=== PATIENT | female | born 1950 | race Caucasian/White ===

== ENCOUNTER 2020-11-16 15:59 | Outpatient (CLI) | payer MEDICARE, SELFPAY ==
--- NOTE | ~2020-11-16 | CT_ITS ---
EXAMINATION: CT abdomen pelvis wo con DATE: 11/16/2020 16:37 INDICATION: Localized adiposity TECHNIQUE: Computed tomography (CT) of the abdomen and pelvis was performed without intravenous contr ast. The dose-length product (DLP) was 818.17 mGy-cm. Automated exposure control and iterative recons truction technique were employed. COMPARISON: None FINDINGS: Calcified nodules of the visualized lung bases are consistent with old granulomatous diseas e. The heart size is normal. There is a small pericardial effusion. There are partially imaged pacema ker leads in the heart. Changes of gastric lap band surgery are noted. The liver, spleen, pancreas, g allbladder, and adrenal glands are normal. The kidneys are unremarkable. There is calcified atheroscl erosis of the aorta and many of the other arteries. Surgical changes are noted in the rectum. No path ologically enlarged abdominal or pelvic lymph nodes are identified. There is no free intraperitoneal gas or evidence of bowel obstruction. There is severe lumbar spondylosis. There is mild diastases of the rectus abdominis muscles near the umbilicus without evidence of ventral hernia. IMPRESSION: 1. Mild diastases of the rectus abdominis muscles near the umbilicus without ventral hernia. Reviewed, dictated and finalized at location A. [facility] IMPRESSION: 1. Mild diastases of the rectus abdominis muscles near the umbilicus without ve ntral hernia.
== END 2020-11-16 16:00 | disposition home or self-care (01) ==
PROVIDERS: PCP Internal Medicine; Visit Provider Surgery Plastic and Reconstructive Surgery
DX: E65 Localized adiposity (principal); K46.9 Unspecified abdominal hernia without obstruction or gangrene; M62.08 Separation of muscle (nontraumatic), other site; M47.816 Spondylosis without myelopathy or radiculopathy, lumbar region
CPT/HCPCS: 74176

== ENCOUNTER 2021-01-18 13:10 | Outpatient (CLI) | payer MEDICARE, SELFPAY ==
[2021-01-18 14:10] LABS: Prealbumin 18.9 mg/dL (17.6-36.0)
[2021-01-18 14:41] LABS: Iron 91 ug/dL (37-170)
[2021-01-22 10:53] LABS: Vitamin B1 9 nmol/L (8-30)
== END 2021-01-18 13:11 | disposition home or self-care (01) ==
LOC: ANHSURGERY 13:13
PROVIDERS: PCP Internal Medicine; Visit Provider Surgery Plastic and Reconstructive Surgery
DX: Z01.818 Encounter for other preprocedural examination (principal); E65 Localized adiposity
CPT/HCPCS: 36415; 83540; 84134; 84425

== ENCOUNTER → 2021-01-20 00:31 | Outpatient (CLI) | payer OTHER, SELFPAY ==
[2021-01-20 20:23] LABS: SARS-CoV-2 RNA PCR Negative
== END ==
PROVIDERS: PCP Internal Medicine; Visit Provider Surgery Plastic and Reconstructive Surgery
DX: Z01.812 Encounter for preprocedural laboratory examination (principal); Z20.822 Contact with and (suspected) exposure to COVID-19
CPT/HCPCS: C9803; U0003; U0005

== ENCOUNTER 2021-01-23 01:31 | Day surgery (SDC) | payer OTHER, SELFPAY ==
[2021-01-17 15:01] VITALS: BMI 31.8
[2021-01-23] VITALS (11 sets, daily range): BP systolic 120–147; BP diastolic 66–80; PULSE 70–80; RESP 16–22; TEMP 36.1–36.6; O2SAT 93–100
--- NOTE | 2021-01-23 11:23 | WPDHPUPDATE1 ---
History and Physical Update Update Date/Time: 01/23/21 11:23 History and Physical has been reviewed, including an updated exam of the patient. There are NO changes in the patient's condition. Risks, benefits, and alternatives have been discussed and questions answered. Patient agrees to proceed with procedure.
[2021-01-23 11:33] LABS: Urine Cotinine NEGATIVE
--- NOTE | 2021-01-23 11:39 | WPDANESEPPF ---
Anes - Initial Pre Proc Eval Procedure: Operation Date: 01/23/21 13:00 Proposed Procedures p Panniculectomy - Joshua Pereira MD Date/Time: 01/23/21 11:39 Surgeon: Joshua Pereira MD Pre Op Diagnosis: panniculitis Patient Data Age: 70 Gender: F Height: 5 ft Weight: 74 kg Allergies Allergy/AdvReac Type Severity Reaction Status Date / Time codeine AdvReac Severe Nausea and Verified 01/23/21 11:03 Vomiting meperidine [From Demerol] AdvReac Severe Nausea and Verified 01/23/21 11:03 Vomiting Home Medications Medication Instructions Recorded Confirmed Type ergocalciferol (vitamin D2) 1 cap PO WEEKLY 11/08/20 01/23/21 History glipizide 5 mg tablet 5 mg PO DAILY 11/08/20 01/23/21 History loratadine 10 mg capsule 10 mg PO DAILY 11/08/20 01/23/21 History venlafaxine 75 mg tablet 75 mg PO DAILY 11/08/20 01/23/21 History docusate sodium 100 mg capsule 100 mg PO DAILY #14 cap 01/04/21 Rx hydrocodone 5 mg-acetaminophen 325 1 tablet PO Q6H PRN #15 tablet 01/08/21 01/08/21 Rx mg tablet calcitriol 0.25 mcg PO DAILY 01/17/21 01/23/21 History levothyroxine 50 mcg PO DAILY 01/17/21 01/17/21 History magnesium oxide 400 mg PO BID 01/17/21 01/23/21 History montelukast 10 mg PO DAILY 01/17/21 01/23/21 History rosuvastatin 40 mg PO DAILY 01/17/21 01/23/21 History sacubitril-valsartan [Entresto] 1 tablet PO BID 01/17/21 01/23/21 History semaglutide [Ozempic] 0.5 mg SUBCUT WEEKLY 01/17/21 01/23/21 History sodium zirconium cyclosilicate 5 g PO DAILY 01/17/21 01/23/21 History [Lokelma] sotalol 80 mg PO BID 01/17/21 01/23/21 History Laboratory Tests 01/23/21 11:15 Cotinine Negative Patient hx anesthesia problems: none Family hx anesthesia problems: none PMFSH Past Medical History Medical History (Updated 01/23/21 @ 11:39 by Darien Grimm MD) Diabetes Hyperlipidemia Hypertension Pacemaker & defibrillator Surgical History Surgical History History of breast surgery right breast tumor History of foot surgery History of knee surgery left knee tumor History of thumb surgery Social History Social History Smoking status: Never smoker Alcohol intake: former Substance use: never Substance use type: does not use Living arrangements: with family Spiritual care concerns: No Anes - Eval Final PreProcedure Day of Procedure 01/23/21 11:39 Patient weight: overweight Heart: regular rate and rhythm Lungs: clear to auscultation Airway: Mallampati scale class II Neurological: alert and oriented Last oral intake: >/= 8 hours ASA classification: III Emergent: no Anesthetic plan: proceed Anesthesia type and monitoring: general ETT and standard monitoring Informed Consent: The patient's anesthetic plan and its attendant risks and benefits were discussed with the patient/family/POA. Questions were solicited and answers provided to the satisfaction of the patient/family/POA.
--- NOTE | 2021-01-23 11:41 | PM.PROC ---
Procedure Note - Detailed Date of procedure: 01/23/21 Pre-op diagnosis: panniculitis Post-op diagnosis: same Procedure performed: Panniculectomy Description of procedure: Patient was marked in the preoperative holding area with her verification. She stated she did not mind losing the umbilicus. She is fine if we save it or remove it, either way. Risks, benefits, alternatives were discussed in extensive detail. I want her to be very realistic about the risks involved as well as expectations. Discussed the aftercare. What to expect. Explained this is functional not cosmetic. All questions answered and consent obtained. She was taken to the operating room placed supine on the operating room table. Anesthesia provided by anesthesiology and prepped and draped in a standard sterile fashion. Surgical time-out was taken. Thorough abdominal examination completed. Infiltrated with tumescent solution. A 10 blade used to make the lower incision which was continued down to the fascia. I then estimated tissue to be removed and made the upper incision doing a wedge resection with no undermining. I closed over bilateral 15 Deo drains which were sutured to the end with 3-0 nylon. Closure was 2-0 Vicryl followed by 3-0 strata fix followed by running subcuticular 4-0 monocryl. Dressings were placed. She was awoke and taken to the PACU without difficulty. All instrument sponge counts were correct at the end of the case. Anesthesia: GETA Surgeon: Joshua Pereira MD Estimated blood loss (mL): 50 Drains: Yes (Bilateral 15 Deo) Packing: No Pathology: none sent Complications: No immediate complications Condition: stable Disposition: PACU
[2021-01-23] MEDS: LACTATED RINGERS 1,000 ML 30 ML IV CONT ×2 (12:02→13:50)
[2021-01-23 12:11] LABS: Glucose Point of Care 111 (65-105)
[2021-01-23] MEDS: ceFAZolin 2 GM/D5W 50 ML 2 GM/50 ML BAG IVPB (12:21)
[2021-01-23 14:00] LABS: Glucose Point of Care 75 (65-105)
[2021-01-23] MEDS: fentaNYL CITRATE INJ (*CRX) 100 MCG/2 ML VIAL 25 MCG IV PUSH ×4 (14:17→14:38)
--- NOTE | 2021-01-23 15:10 | PC.NURSE ---
This patient, Katheryn Pantoja, was received from PACU on 01/23/21 at 1510. Patient/family oriented to unit policies and routines
[2021-01-23] MEDS: LACTATED RINGERS 1,000 ML 125 ML IV CONT (15:24)
[2021-01-23] MEDS: MORPHINE SULFATE (*CRX) 2 MG/ML INJ IV PUSH ×2 (15:26→17:32)
[2021-01-23] MEDS: traMADol HCL (*CRX) 50 MG TABLET PO (16:36)
[2021-01-23] MEDS: ONDANSETRON INJ 4 MG/2 ML VIAL IV PUSH ×2 (17:35→22:18)
[2021-01-23] MEDS: SACUBITRIL/VALSARTAN 49-51 MG TABLET 1 TABLET PO (20:29)
[2021-01-23] MEDS: DOCUSATE SODIUM 100 MG CAPSULE PO (20:29)
[2021-01-23] MEDS: SOTALOL HCL 80 MG TABLET PO (20:29)
[2021-01-23] MEDS: ENOXAPARIN 40 MG/0.4 ML SYRINGE SUB-Q (20:30)
[2021-01-24 04:00] VITALS: BP 106/67; PULSE 84; RESP 16; TEMP 36.5; O2SAT 94
[2021-01-24] MEDS: ONDANSETRON INJ 4 MG/2 ML VIAL IV PUSH (04:15)
[2021-01-24] MEDS: ACETAMINOPHEN 325 MG TABLET 650 MG PO (04:30)
--- NOTE | 2021-01-24 07:06 | WPDPN ---
Progress Note: A&P Assessment and Plan (1) Panniculus: Code(s): E65 - Localized adiposity Status: Acute Assessment and Plan: She is doing very well after panniculectomy. Will discharge home. I will see her back and check her progress. Today we had over 20 minutes conversation discussing the care. What monitor for. We discussed DVT prophylaxis. Made sure she knew her options. She will ambulate regularly. I will see her back. Call with any questions or concerns in the meantime. Time Spent With Patient Time with patient: 15 - 25 minutes Review of Systems Review of Systems: All systems reviewed & are unremarkable except as noted in HPI and below Exam Narrative: Exam Narrative: Abdomen is healing well. No signs of infection. No hematoma. No seroma. Good color and capillary refill. Drains are in place. Lightening in color. No calf tenderness. Negative Homans. Const: General: comfortable, no acute distress, alert and awake; No acute distress Orientation/consciousness: oriented to person HENMT: Head: normal to inspection Ears: external ears normal General nose exam: Normal external nose present Face and sinus: normal facial exam Eyes: General: appearance normal, both eyes and all related structures Periorbital: periorbital findings normal Eyelids: eyelids normal Conjunctivae: conjunctivae normal Neck: Neck: normal visual inspection Chest: Chest palpation & inspection: normal inspection of the chest Resp: Effort & Inspection: normal respiratory effort and able to speak in complete sentences GI: Inspection: normal to inspection Neuro: General: oriented to person Psych: Appearance: grossly normal Mental Status: mental status grossly normal Objective Data Vital Signs Vital Signs: Vital Signs - 24 hr 01/23/21 12:05 01/23/21 13:50 01/23/21 14:05 Temperature 36.6 C 36.4 C Pulse Rate 70 74 76 Respiratory Rate 22 H 20 Blood Pressure 134/79 147/73 H 137/75 Pulse Oximetry 98 100 100 01/23/21 14:20 01/23/21 14:35 01/23/21 14:50 Temperature Pulse Rate 74 75 74 Respiratory Rate 20 20 20 Blood Pressure 130/78 124/66 120/74 Pulse Oximetry 100 94 93 01/23/21 15:04 01/23/21 15:15 01/23/21 20:00 Temperature 36.6 C 36.1 C L Pulse Rate 72 70 80 Respiratory Rate 18 16 18 Blood Pressure 137/80 142/77 H 125/73 Pulse Oximetry 94 96 93 01/23/21 20:29 01/23/21 22:35 01/24/21 04:00 Temperature 36.1 C L 36.5 C Pulse Rate 80 71 84 Respiratory Rate 18 16 Blood Pressure 123/72 106/67 Pulse Oximetry 95 94 Intake/Output Intake/Output: Intake & Output 01/21/21 01/22/21 01/23/21 01/24/21 23:59 23:59 23:59 23:59 Intake Total 100 Output Total 215 600 Balance -115 -600 Meds/Results Medications: Active Medications Generic Name Dose Route Start Last Admin Trade Name Freq PRN Reason Stop Dose Admin Acetaminophen 650 mg 01/23/21 23:08 01/24/21 04:30 Acetaminophen 325 Mg Tablet PO 650 mg Q4H PRN Administration Headache Calcitriol 0.25 mcg 01/24/21 09:00 Calcitriol 0.25 Mcg Capsule PO DAILY JEANNE Docusate Sodium 100 mg 01/23/21 21:00 01/23/21 20:29 Docusate Sodium 100 Mg Capsule PO 100 mg Q12HR JEANNE Administration Enoxaparin Sodium 40 mg 01/23/21 20:00 01/23/21 20:30 Enoxaparin 40 Mg/0.4 Ml Syringe SUB-Q 40 mg Q24H JEANNE Administration Glipizide 5 mg 01/24/21 06:30 Glipizide 5 Mg Tablet PO DAILY@0630 [facility] Lactated Ringer's 1,000 mls @ 125 mls/hr 01/23/21 13:35 01/24/21 05:50 Lr - Lactated Ringers Iv IV CONT Not Given .Q8H JEANNE Levothyroxine Sodium 50 mcg 01/24/21 06:30 Levothyroxine Sodium 50 Mcg Tablet PO DAILY@0630 [facility] Loratadine 10 mg 01/24/21 09:00 Loratadine 10 Mg Tablet PO DAILY [facility] Montelukast Sodium 10 mg 01/24/21 09:00 Montelukast Sodium 10 Mg Tablet PO DAILY [facility] Morphine Sulfate 2 mg 01/23/21 13:33 01/23/21 17:32 Morphine Sulfate (*C
--- NOTE | 2021-01-24 07:11 | PM.DS ---
DS: Admitting Diagnosis Admitting Diagnosis Admitting Diagnosis: Panniculitis DS: Discharge Diagnosis Discharge Diagnosis (1) Panniculus: Code(s): E65 - Localized adiposity Status: Acute DS: Summary Hospital Course Hospital Course: Patient underwent panniculectomy uneventfully. Postoperatively she has done very well. Ambulating. Pain controlled. Feeling well. Will discharge home. Time Spent with Patient Time attestation: Total time spent providing and/or coordinating discharge services: 20 minutes Exam Narrative: Exam Narrative: Abdomen is healing well. No signs of infection. No hematoma. No seroma. Good color and capillary refill. Drains are in place. Lightening in color. No calf tenderness. Negative Homans. Const: General: comfortable, no acute distress, alert and awake; No acute distress Orientation/consciousness: oriented to person HENMT: Head: normal to inspection Ears: external ears normal General nose exam: Normal external nose present Face and sinus: normal facial exam Eyes: General: appearance normal, both eyes and all related structures Periorbital: periorbital findings normal Eyelids: eyelids normal Conjunctivae: conjunctivae normal Neck: Neck: normal visual inspection Chest: Chest palpation & inspection: normal inspection of the chest Resp: Effort & Inspection: normal respiratory effort and able to speak in complete sentences GI: Inspection: normal to inspection Neuro: General: oriented to person Psych: Appearance: grossly normal Mental Status: mental status grossly normal DS: Data Data Completed and Pending Labs on day of discharge: Labs from last 24 hours 01/23/21 01/23/21 01/23/21 13:58 12:09 11:15 POC Capillary Glucose 75 111 H Cotinine Negative Discharge Plan Discharge Patient Disposition: Home, Self-Care Discharge Instructions: POST OPERATIVE DISCHARGE INSTRUCTIONS FOR JOSHUA PEREIRA [facility] [address] [place] [address] [address] for 24 hours after anesthesia and while you are taking pain medication. Take all prescribed medication as directed Diet as tolerated. No lifting or activity that raises blood pressure for 48 hours. Regular walking / ambulation. No showering until directed to. Once you shower do not take pain medication before showering as the combination of medication and heat may cause you to feel dizzy or pass out. No pools or tubs for 2 weeks. Call with any questions or concerns. Dressing Care: May wash. Dry dressing daily. Drain care. Keep us updated with drain outputs. If you have any questions or concerns, please call the office . If it is after hours you will be directed to the commissions analyst exchange. Shortness of breath, chest pain, or other medical emergency dial 911 / proceed to the Emergency Room. Patient Instructions: [facility] Drain Care (GEN) Stand Alone Forms: General Discharge Instructions Follow-up/Referrals: Joshua Pereira MD [Physician] - 2 Weeks Discharge Medications: New tramadol 50 mg Tablet 50 mg PO Q6H PRN (Reason: Pain Rated 4-6) Qty: 15 RF: 0 Continued loratadine 10 mg capsule 10 mg PO DAILY RF: 0 ergocalciferol (vitamin D2) 1 cap PO WEEKLY RF: 0 venlafaxine 75 mg tablet 75 mg PO DAILY RF: 0 glipizide 5 mg tablet 5 mg PO DAILY RF: 0 docusate sodium [Colace] 100 mg capsule 100 mg PO DAILY Qty: 14 RF: 0 sotalol 80 mg tablet 80 mg PO BID RF: 0 magnesium oxide 400 mg (241.3 mg magnesium) tablet 400 mg PO BID RF: 0 levothyroxine 50 mcg tablet 50 mcg PO DAILY RF: 0 montelukast 10 mg tablet 10 mg PO DAILY RF: 0 calcitriol 0.25 mcg capsule 0.25 mcg PO DAILY RF: 0 rosuvastatin 40 mg tablet 40 mg PO DAILY RF: 0 Entresto 49-51 mg tablet 1 tablet PO BID RF: 0 Ozempic 0.25 mg or 0.5 mg(2 mg/1.5 mL) pen injecto
[2021-01-24 07:30] VITALS: BP 89/54; PULSE 70; RESP 18; TEMP 37
[2021-01-24] MEDS: LEVOTHYROXINE SODIUM 50 MCG TABLET PO (07:58)
[2021-01-24] MEDS: glipiZIDE 5 MG TABLET PO (07:59)
--- NOTE | 2021-01-24 08:14 | WPDANESPN ---
Anes - Prog Note Post-Op Date/Time: 01/24/21 08:14 Cardiovascular status: normal Respiratory status: normal Airway patency: baseline Mental status: baseline Post-Op hydration status: normal Vital Signs: Last Vital Signs Temp 37.0 C 01/24/21 07:30 Pulse 70 01/24/21 07:30 Resp 18 01/24/21 07:30 BP 89/54 L 01/24/21 07:30 Pulse Ox 94 01/24/21 04:00 Pain Score (VAS): 0/10. Patient resting in bed at time of assessment, appears comfortable. Patient described mild nausea with relief with PRN meds. I/O: Intake & Output 01/23/21 01/24/21 01/24/21 23:59 07:59 15:59 Output Total 145 600 Balance -145 -600 01/23/21 01/23/21 01/23/21 11:15 12:09 13:58 POC Capillary Glucose 111 H 75 Cotinine Negative Post-procedural complaints: nausea (relief with prn meds) Patient Feedback: Patient satisfied with anesthetic care.
[2021-01-24] MEDS: ROSUVASTATIN 10 MG TABLET 40 MG PO (09:40)
[2021-01-24 09:41] VITALS: PULSE 70
[2021-01-24] MEDS: SOTALOL HCL 80 MG TABLET PO (09:41)
[2021-01-24] MEDS: MONTELUKAST SODIUM 10 MG TABLET PO (09:41)
[2021-01-24] MEDS: LORATADINE 10 MG TABLET PO (09:41)
[2021-01-24] MEDS: DOCUSATE SODIUM 100 MG CAPSULE PO (09:41)
[2021-01-24] MEDS: SACUBITRIL/VALSARTAN 49-51 MG TABLET 1 TABLET PO (09:42)
[2021-01-24] MEDS: calcitrioL 0.25 MCG CAPSULE PO (09:43)
[2021-01-24] MEDS: VENLAFAXINE HCL 75 MG TABLET PO (09:44)
== END 2021-01-24 11:00 | disposition home or self-care (01) ==
LOC: ANHSURGERY 11:45 → ANHOB2 14:53
PROVIDERS: PCP Internal Medicine; Visit Provider Surgery Plastic and Reconstructive Surgery
PROC: 0JB80ZZ Excision of Abdomen Subcutaneous Tissue and Fascia, Open Approach (ICD-10-PCS; CPT 15830; principal; 2021-01-23 13:00)
DX: M79.3 Panniculitis, unspecified (principal); E65 Localized adiposity; I10 Essential (primary) hypertension; E78.5 Hyperlipidemia, unspecified; E11.9 Type 2 diabetes mellitus without complications; Z95.810 Presence of automatic (implantable) cardiac defibrillator; Z79.84 Long term (current) use of oral hypoglycemic drugs; Z79.899 Other long term (current) drug therapy
CPT/HCPCS: 15830; 80307; 82948; 99199; A9270; J0171; J0690; J1650; J2250; J2270; J2405; J2704; J3010; J7120

== ENCOUNTER 2021-02-24 09:37 | Inpatient (IN) | payer MEDICARE, SELFPAY ==
[2021-02-24] VITALS (20 sets, daily range): BP systolic 79–145; BP diastolic 38–86; PULSE 68–93; RESP 16–26; TEMP 36.1–36.8; O2SAT 93–100; BMI 28.2
--- NOTE | ~2021-02-24 | CT_ITS ---
EXAMINATION: CT brain wo con DATE: 02/24/2021 11:11 INDICATION: Postoperative syncope, weakness TECHNIQUE: Computed tomography (CT) of the head was performed without intravenous contrast. The mA wa s adjusted according to patient size. Iterative reconstruction technique was employed. Exam dose: 60 5.33 mGy-cm total exam DLP. COMPARISON: None FINDINGS: Prominent cisterna magna, anatomic variant. Vertebral and bilateral carotid siphon internal carotid artery calcifications. There is nonspecific d iminished attenuation of the cerebral white matter, likely due to chronic small vessel ischemic es. There is chronic lacunar infarct in the region of the anterior limb of the right internal capsule. No intracranial mass lesion or hemorrhage or recent cerebrovascular accident is evident. CT is not se nsitive for detection of hyperacute ischemic CVA. No midline shift or mass effect effect. No subdural or epidural hematoma. No fracture or bone destruction of the cranial vault. Included paranasal sinuses and mastoid air cell s are unremarkable. IMPRESSION: Cerebral atherosclerosis and chronic small vessel ischemic changes of cerebral white mat ter Chronic lacunar infarct near anterior limb of right internal capsule Reviewed, dictated and finalized at [facility]. Reviewed, dictated and finalized at [facility]. IMPRESSION: Cerebral atherosclerosis and chronic small vessel ischemic changes of cerebral white matter Chronic lacunar infarct near anterior limb of right internal capsule
--- NOTE | ~2021-02-24 | XR_ITS ---
XR chest 2V DATE: 02/24/2021 11:00 INDICATION: Postoperative syncope, weakness TECHNIQUE: AP and lateral views COMPARISON: None FINDINGS: Left-sided pacemaker device with leads overlying right atrium, right ventricle and coronary sinus. Normal heart size. Aortic arch calcification. No hilar or mediastinal enlargement. No pulmonary infiltrate or consolidation, pleural effusion or pulmonary vascular congestion or pneumo thorax. Lap band apparatus. IMPRESSION: No active cardiopulmonary disease Reviewed, dictated and finalized at [facility].
--- NOTE | ~2021-02-24 | CT_ITS ---
EXAMINATION: CTA chest PE abdomen pel DATE: 02/24/2021 11:12 INDICATION: Postoperative syncope, weakness TECHNIQUE: Computed tomography angiography (CTA) of the chest and abdomen was performed with 100 mL O mnipaque-350 intravenous contrast timed to evaluate the pulmonary arteries. Coronal maximum intensity projection 3D-reconstructions were created by the technologist. Automated exposure control and itera tive reconstruction technique were employed. Exam dose: 1184.79 mGy-cm total exam DLP. COMPARISON: 11/16/2020 CT abdomen pelvis noncontrast examination FINDINGS: Bilateral upper upper, middle and bilateral lower lobe calcified pulmonary granulomas consistent with old pulmonary granulomatous disease. No pulmonary infiltrate or consolidation or pulmonary mass lesi on. No thoracic aortic aneurysm or dissection. No CT evidence of pulmonary embolism. Mild to moderate pericardial effusion. No cardiomegaly. Left-sided pacemaker device with leads in right atrium, right ventricle and coronary sinus. Small sliding hiatal hernia. Lap band device. The liver, gallbladder, bile ducts, spleen, pancreas, pancreatic duct, and adrenal glands and kidneys are unremarkable. No urinary tract calculus or hydroureteronephrosis. The urinary bladder is unremar kable. Status post hysterectomy. There is a suture line in the distal sigmoid colon. Diverticulosis of the left colon; no CT evidence of diverticulitis. No bowel obstruction is evident. No intraperitoneal free air. There is extensive fluid accumulation along the lower anterior abdominal wall, measuring up to 19 cm transverse dimension, to 4.5 cm anteroposterior dimension, up to 12 cm vertical extent. Findings may be consistent with hematoma or abscess. Transverse with surrounding soft tissue infiltration of the s ubcutaneous anterior abdominal wall adipose tissue. Prominent degenerative disease at L4-5 and L5-S1. Degenerative changes apophyseal joints of the lumbar and lumbosacral area, with associated grade 1 an terolisthesis at L5-S1. No suspicious osteolytic or osteoblastic lesions are noted. IMPRESSION: Pericardial effusion Extensive abnormal fluid collection within the subcutaneous tissues of the lower anterior abdominal w all which may be secondary to hematoma or abscess Lap band apparatus Small sliding hiatal hernia Diverticulosis of the colon; no CT evidence of diverticulitis Status post left colon resection Status post hysterectomy Reviewed, dictated and finalized at [facility]. Reviewed, dictated and finalized at [facility]. IMPRESSION: Pericardial effusion Extensive abnormal fluid collection within the subcutaneous tissues of the lowe r anterior abdominal wall which may be secondary to hematoma or abscess Lap band apparatus Small sliding hiatal hernia Diverticulosis of the colon; no CT evidence of diverticulitis Status post left colon resection Status post hysterectomy
--- NOTE | ~2021-02-24 | US_ITS ---
US abdomen limited DATE: 02/25/2021 08:21 INDICATION: Abnormal liver function tests TECHNIQUE: Examination was performed by portable means in the intensive care unit. Real-time imaging of liver, pancreas, gallbladder areas COMPARISON: 02/24/2021 CT chest and abdomen FINDINGS: No gallstones or gallbladder wall thickening is evident. Negative sonographic James's sign . No hepatic space-occupying mass lesion. The pancreas is obscured by bowel gas. The pancreas appears unremarkable on 02/24/2021 CT abdomen pelvis examination. No bile duct dilatation. The common bile duct measures 4 mm. IMPRESSION: No significant abnormality Reviewed, dictated and finalized at [facility]. Reviewed, dictated and finalized at [facility]. IMPRESSION: No significant abnormality
[2021-02-24 10:08] LABS: Basophils Absolute Auto 0.1 K/mm3 (0.0-0.1); Basophils Percent Auto 0.4 % (0.2-1.2); Eosinophils Absolute Auto 0.2 K/mm3 (0-0.3); Eosinophils Percent Auto 0.9 % (0-4.4); Hematocrit 38.7 % (37.0-47.0); Hemoglobin 13.3 g/dL (12.0-15.0); Immature Granulocyte Absolute 0.54 K/mm3 (0.00-0.031); Immature Granulocyte Percent A 1.9 % (0-0.5); Lymphocytes Absolute Auto 1.06 K/mm3 (0.9-3.2); Lymphocytes Percent Auto 3.8 % (18.3-44.2); Mean Corpuscular HGB Conc 34.4 g/dl (32-36); Mean Corpuscular Hemoglobin 30.2 pg (26-34); Mean Platelet Volume 11.4 fl (7.4-10.4); Monocytes Absolute Auto 3.8 K/mm3 (0.1-0.6); Monocytes Percent Auto 13.4 % (2.6-8.5); Neutrophils Absolute Auto 22.3 K/mm3 (1.3-6.7); Neutrophils Percent Auto 79.6 % (45.5-73.1); Platelet Count Result 274 k/mm3 (150-375); Red Cell Distribution Width 12.6 % (11.5-14.5); White Blood Count 28.1 K/mm3 (4.5-10.0)
[2021-02-24 10:14] LABS: Alanine Aminotransferase 56 U/L (4-35); Albumin Level 3.5 g/dL (3.5-5.1); Alkaline Phosphatase 242 U/L (38-126); Anion Gap 5 mmol/L (8-16); Aspartate Amino Transferase 275 U/L (14-36); Bilirubin,Total 0.7 mg/dL (0.2-1.3); Blood Urea Nitrogen 14 mg/dL (7-17); Calcium 10.1 mg/dL (8.4-10.2); Carbon Dioxide 31 mmol/L (22-30); Chloride 93 mmol/L (98-107); Estimated CRCL calculation 46 ml/min; Estimated Glomerular Filt Rate > 60; Glucose 96 mg/dL (65-105); Lipase 127 U/L (23-300); Potassium 4.3 mmol/L (3.4-5.0); Sodium 129 mmol/L (137-145)
--- NOTE | 2021-02-24 10:17 | ECG_ITS ---
Measurements Intervals [place] Rate: 102 P: 41 AK: 195 QRS: 124 QRSD: 101 T: 10 QT: 386 QTc: 505 Interpretive Statements SINUS TACHYCARDIA VENTRICULAR PREMATURE COMPLEXES INCOMPLETE RIGHT BUNDLE BRANCH BLOCK HIGH LATERAL INFARCT, AGE INDETERMINATE BORDERLINE ST-T WAVE ABNORMALITY- INFERIOR LEADS BASELINE ARTIFACT- I, III, AVR, AVL, V4-V6 ABNORMAL ECG Electronically Signed On 02-24-2021 17:05:51 CDT by Tma Willard D.O.
[2021-02-24 10:24] LABS: Ovalocytes 1+ (NORMAL); Platelet Estimate Adequate (Adequate)
[2021-02-24] MEDS: ONDANSETRON INJ 4 MG/2 ML VIAL IV PUSH (10:32)
[2021-02-24] MEDS: LACTATED RINGERS 1,000 ML 999 ML IV CONT (10:32)
--- NOTE | 2021-02-24 10:39 | ECG_ITS ---
Measurements Intervals [place] Rate: 82 P: 52 GA: 207 QRS: 141 QRSD: 86 T: -12 QT: 394 QTc: 461 Interpretive Statements SINUS RHYTHM INCOMPLETE RIGHT BUNDLE BRANCH BLOCK LOW QRS VOLTAGE IN PRECORDIAL LEADS HIGH LATERAL INFARCT, AGE INDETERMINATE BORDERLINE ST-T WAVE ABNORMALITY- INFERIOR LEADS BASELINE ARTIFACT- I, III, AVR, AVL, AVF ABNORMAL ECG Electronically Signed On 02-27-2021 15:57:26 CDT by Tam Willard D.O.
--- NOTE | 2021-02-24 10:48 | ED.GENADULT ---
HPI - General Adult General Chief complaint: Nausea/Vomiting/Diarrhea Stated complaint: decreased appetite/constipation? Time Seen by Provider: 02/24/21 09:47 Source: patient Mode of arrival: ambulatory Limitations: no limitations History of Present Illness HPI narrative: This is 70 year old female who presents for evaluation of nausea and lower abdominal pain s/p panniculectomy 5 weeks ago. She reports she has been nauseated for 5 weeks, but it got worse today. She states she normally does not have emesis but she does not want to eat or drink. She was able to drink milk and water this morning without vomiting. She is concerned because she has kidney disease and her urine has been more yellow over the past couple of days. She states her last BM was 2 days ago and it was diarrhea. She states she passed out 2 days and she had diarrhea at that time. She denies chest pain or sob. She does report severe lower abdominal pain along her incision, and her pain is worse when she tries to sit up. She also notes a firmness to her incision. She was seen by her plastic surgeon approximately 6 days ago. She admits she has not talked to her surgeon about not feeling well for several weeks. Related Data Home Medications Medication Instructions Recorded Confirmed ergocalciferol (vitamin D2) 1 cap PO WEEKLY 11/08/20 01/23/21 glipizide 5 mg tablet 5 mg PO DAILY 11/08/20 01/23/21 venlafaxine 75 mg tablet 75 mg PO DAILY 11/08/20 01/23/21 Entresto 1 tablet PO BID 01/17/21 01/23/21 Lokelma 5 g PO DAILY 01/17/21 01/23/21 Ozempic 0.5 mg SUBCUT WEEKLY 01/17/21 01/23/21 calcitriol 0.25 mcg PO DAILY 01/17/21 01/23/21 levothyroxine 50 mcg PO DAILY 01/17/21 01/17/21 magnesium oxide 400 mg PO BID 01/17/21 01/23/21 montelukast 10 mg PO DAILY 01/17/21 01/23/21 rosuvastatin 40 mg PO DAILY 01/17/21 01/23/21 sotalol 80 mg PO BID 01/17/21 01/23/21 Allergies Allergy/AdvReac Type Severity Reaction Status Date / Time codeine AdvReac Severe Nausea and Verified 02/24/21 09:46 Vomiting meperidine [From Demerol] AdvReac Severe Nausea and Verified 02/24/21 09:46 Vomiting Review of Systems Review of Systems: All systems reviewed & are unremarkable except as noted in HPI and below Constitutional: Constitutional: Reports chills, Reports fatigue and Denies fever(s) Cardiovascular: Cardiovascular: Denies chest pain Respiratory: Respiratory: Denies cough and Denies dyspnea Gastrointestinal: Gastrointestinal: Reports abdominal pain, Denies diarrhea, Reports nausea and Denies vomiting Genitourinary: Genitourinary: Denies hematuria and Denies dysuria Neurologic: Reports syncope Endocrine: Endocrine: Reports fatigue PMFSH Past Medical History Medical History Cardiac dysrhythmia Patient on sotalol. Unsure if atrial or ventricular dysrhythmia. Cardiomyopathy Status post PM/ICD insertion. Previous EF of 35% (per patient report). Patient of Dr. Boggs. Cerebrovascular accident Chronic lacunar infarct near anterior limb of right internal capsule noted on brain CT dated 02/24/2021. This was unknown to the patient. Depression Diverticulitis Hyperlipidemia Hypertension Hypothyroidism Type 2 diabetes mellitus Hemoglobin A1c was 5.4% on 02/24/2021. Surgical History Surgical History Cardiac defibrillator in place History of foot surgery History of hysterectomy History of laparoscopic adjustable gastric banding History of left knee surgery History of partial colectomy Partial left colectomy secondary to diverticulitis. History of right breast biopsy Benign pathology. History of thumb surgery Status post panniculectomy Family History Family History Other Diabetes mellitus Heart disease Hypertension Venous thromboembolism Social History Social History (Upd
[2021-02-24 11:02] LABS: Add Urine Microscopic? YES; Appearance Urine Cloudy (Clear); Bacteria Urine Trace /hpf; Bilirubin Urine Negative (Negative); Blood Urine Negative (Negative); Color Urine Yellow (Yellow); Glucose Urine UA Negative (Negative); Ketones Urine Negative (Negative); Leukocyte Esterase Ur Negative LEU/UL (Negative); Mucus Urine Rare /lpf; Nitrate Urine Negative (Negative); Protein Urine 2+ mg/dL (Negative); RBC Urine 0-2 /hpf (0-2); Specific Grav Ur 1.015 (1.001-1.035); Squamous Epithelial Cell Urine Few /hpf (Few); Urobilinogen Urine Negative mg/dL (<2.0)
[2021-02-24 11:04] LABS: Lactic Acid Reflex 1.5 mmol/L (0.7-2.1)
[2021-02-24 11:16] LABS: Hepatitis B Surface Antigen Negative (Negative)
[2021-02-24 11:21] LABS: HAV RESULT Negative (Negative); Hepatitis B Core IgM Result Negative (Negative)
[2021-02-24 11:36] LABS: Hepatitis C Virus Antibody Reactive (Negative)
--- NOTE | 2021-02-24 13:50 | ADMGEN ---
This patient, Katheryn Pantoja, was admitted to -. Patient/family oriented to hospital policies and general routines including ID bracelet, bed and alarms, visiting hours, pain management, procedures, bathroom and other care routines, personal items, smoking policy, room service/diet, and visiting hours. Information on how to activate the Rapid Response Team has been discussed. Patient/Family are encouraged to report perceived risks to care and to ask questions if they do not understand what they are told or what they should do.
[2021-02-24] MEDS: SODIUM CHLORIDE 0.9% IV 1,000 ML 125 ML IV CONT (14:05)
--- NOTE | 2021-02-24 14:15 | PM.IMHP ---
H&P: HPI History of Present Illness Date/Time: 02/24/21 14:15 Chief Complaint: Post-op abominal pain. Narrative: This is a pleasant 70-year-old female with history of cardiomyopathy on Entresto status post pacemaker/ICD insertion, cardiac dysrhythmia on sotalol (patient is unsure if atrial or ventricular), type 2 diabetes, dyslipidemia, and hypothyroidism who presented to the emergency department earlier today via private vehicle from home for evaluation of post-op abdominal pain. She is status post panniculectomy on 01/23/[address] Joshua Pereira and initially she had what she assumed to be typical postoperative pain. She took 1 hydrocodone on 3 consecutive nights after the surgery and has been managing her pain on [id number] analgesics since that time. On review of follow-up notes it looks like she was progressing as expected, with drains being removed on 01/31 and 02/08. She last saw Dr. Pereira in the office just 5 days ago and there was no mention of any issue. Unfortunately she began feeling worse later that evening and reports increasing pain, nausea, decreased appetite, and poor oral intake since that time. In fact she tells me that she had a syncopal episode last night while in the kitchen, with antecedent symptoms to include a warm feeling, lightheadedness, dizziness, and weakness. She did not injure herself in the fall and she denies head trauma. CT of the abdomen and pelvis demonstrated an extensive fluid accumulation along the lower anterior abdominal wall which measures up to 19 x 4.5 x 12 cm and she is being admitted in this setting. Dr. Pereira is out of town this weekend and Dr. Lazo has graciously agreed to see her in consultation. In fact he is taking her to the OR today for washout of the wound. Review of Systems Review of Systems: Narrative: 12 systems were reviewed with pertinent positives and negatives as per HPI. She has not had a fever to her knowledge. Perhaps some mild chills. No sweats. She denies vomiting. Has had some mild loose stools. No chest pain, pleuritic pain, palpitations, or shortness of breath. Her defibrillator has discharged 2 times since it was inserted but not recently. No change in urine output but her urine has appeared darker. Denies dysuria. No history of multidrug resistant organisms. Does not check her glucose at home as her glucometer is broken apparently. She does not recall her last hemoglobin A1c. No blurry vision, polydipsia, or polyuria. No history of venous thromboembolism. No history of hepatitis or concerns for exposure to the same. No history of blood transfusion. Except as documented, all other systems were reviewed and are negative. [facility] Past Medical History Medical History (Updated 02/24/21 @ 15:49 by Leanne Ureña PA-C) Cardiac dysrhythmia Patient on sotalol. Unsure if atrial or ventricular dysrhythmia. Cardiomyopathy Status post PM/ICD insertion. Previous EF of 35% (per patient report). Patient of Dr. Boggs. Cerebrovascular accident Chronic lacunar infarct near anterior limb of right internal capsule noted on brain CT dated 02/24/2021. This was unknown to the patient. Depression Diverticulitis Hyperlipidemia Hypertension Hypothyroidism Type 2 diabetes mellitus Hemoglobin A1c was 5.4% on 02/24/2021. Surgical History Surgical History Cardiac defibrillator in place History of foot surgery History of hysterectomy History of laparoscopic adjustable gastric banding History of left knee surgery History of partial colectomy Partial left colectomy secondary to diverticulitis. History of right breast biopsy Benign pathology. History of thumb surgery Status post panniculectomy Family History Family History Other Diabetes mellitus Heart disease Hypertension Venous thromboembolism Social History Social History (Updated
--- NOTE | 2021-02-24 15:01 | WPDANESEPP ---
Anes - Eval Pre Procedure Date/Time: 02/24/21 15:01 Pre Op Diagnosis: postoperative wound abscess Patient Data Age: 70 Gender: F Height: 1.55 m Weight: 70.3 kg Last Vital Signs Temp 36.8 C 02/24/21 09:41 Pulse 88 02/24/21 13:53 Resp 16 02/24/21 13:53 BP 128/60 02/24/21 13:53 Pulse Ox 97 02/24/21 13:53 Allergies Allergy/AdvReac Type Severity Reaction Status Date / Time codeine AdvReac Severe Nausea and Verified 02/24/21 09:46 Vomiting meperidine [From Demerol] AdvReac Severe Nausea and Verified 02/24/21 09:46 Vomiting Home Medications Medication Instructions Recorded Confirmed Type ergocalciferol (vitamin D2) 1 cap PO WEEKLY 11/08/20 01/23/21 History glipizide 5 mg tablet 5 mg PO DAILY 11/08/20 01/23/21 History venlafaxine 75 mg tablet 75 mg PO DAILY 11/08/20 01/23/21 History Entresto 1 tablet PO BID 01/17/21 01/23/21 History Lokelma 5 g PO DAILY 01/17/21 01/23/21 History Ozempic 0.5 mg SUBCUT WEEKLY 01/17/21 01/23/21 History calcitriol 0.25 mcg PO DAILY 01/17/21 01/23/21 History levothyroxine 50 mcg PO DAILY 01/17/21 01/17/21 History magnesium oxide 400 mg PO BID 01/17/21 01/23/21 History montelukast 10 mg PO DAILY 01/17/21 01/23/21 History rosuvastatin 40 mg PO DAILY 01/17/21 01/23/21 History sotalol 80 mg PO BID 01/17/21 01/23/21 History Laboratory Tests 02/24/21 02/24/21 02/24/21 09:52 09:52 09:52 WBC 28.1 K/mm3 H K/mm3 (4.5-10.0) RBC 4.40 M/mm3 M/mm3 (4.2-5.4) Hgb 13.3 g/dL g/dL (12.0-15.0) Hct 38.7 % % (37.0-47.0) MCV 88.0 fl fl (80-100) MCH 30.2 pg pg (26-34) MCHC 34.4 g/dl g/dl (32-36) RDW 12.6 % % (11.5-14.5) Plt Count 274 k/mm3 k/mm3 (150-375) MPV 11.4 fl H fl (7.4-10.4) Immature Gran % (Auto) 1.9 % H % (0-0.5) Neut % (Auto) 79.6 % H % (45.5-73.1) Lymph % (Auto) 3.8 % L % (18.3-44.2) Levy % (Auto) 13.4 % H % (2.6-8.5) Eos % (Auto) 0.9 % % (0-4.4) Baso % (Auto) 0.4 % % (0.2-1.2) Lymph # (Auto) 1.06 K/mm3 K/mm3 (0.9-3.2) Levy # (Auto) 3.8 K/mm3 H K/mm3 (0.1-0.6) Eos # (Auto) 0.2 K/mm3 K/mm3 (0-0.3) Baso # (Auto) 0.1 K/mm3 K/mm3 (0.0-0.1) Abs Immat Gran (auto) 0.54 K/mm3 H K/mm3 (0.00-0.031) Absolute Neuts (auto) 22.3 K/mm3 H K/mm3 (1.3-6.7) Absolute Nucleated RBC 0.0 K/mm3 K/mm3 (0.0-0.012) Nucleated RBC % 0.0 % % (0.0-0.2) Platelet Estimate Adequate (Adequate) Ovalocytes 1+ (NORMAL) PT INR APTT Sodium 129 mmol/L L mmol/L (137-145) Potassium 4.3 mmol/L mmol/L (3.4-5.0) Chloride 93 mmol/L L mmol/L (98-107) Carbon Dioxide 31 mmol/L H mmol/L (22-30) Anion Gap 5 mmol/L L mmol/L (8-16) BUN 14 mg/dL mg/dL (7-17) Creatinine 0.90 mg/dL mg/dL (0.7-1.0) Estim Creat Clear Calc 46 ml/min ml/min Estimated GFR > 60 (59 - ) Glucose 96 mg/dL mg/dL (65-105) Hemoglobin A1c Lactic Acid Calcium 10.1 mg/dL mg/dL (8.4-10.2) Magnesium Total Bilirubin 0.7 mg/dL mg/dL (0.2-1.3) AST 275 U/L H U/L (14-36) ALT 56 U/L H U/L (4-35) Alkaline Phosphatase 242 U/L H U/L (38-126) Total Creatine Kinase Total Protein 7.0 g/dL g/dL (6.3-8.2) Albumin 3.5 g/dL g/dL (3.5-5.1) Lipase 127 U/L U/L (23-300) TSH (Reflex) Urine Color Urine Appearance Urine pH Ur Specific Bath Urine Protein Urine Glucose (UA) Urine Ketones Ur Blood (Man) Urine Nitrate Urine Bilirubin Urine Urobi
[2021-02-24 15:07] LABS: Hemoglobin A1C 5.4 % (<5.7)
[2021-02-24 15:09] LABS: Alanine Aminotransferase 48 U/L (4-35); Albumin Level 2.7 g/dL (3.5-5.1); Alkaline Phosphatase 198 U/L (38-126); Anion Gap 4 mmol/L (8-16); Aspartate Amino Transferase 195 U/L (14-36); Bilirubin,Total 0.4 mg/dL (0.2-1.3); Blood Urea Nitrogen 13 mg/dL (7-17); Calcium 9.1 mg/dL (8.4-10.2); Carbon Dioxide 28 mmol/L (22-30); Chloride 95 mmol/L (98-107); Creatine Kinase < 20 U/L (30-135); Estimated CRCL calculation 46 ml/min; Estimated Glomerular Filt Rate > 60; Glucose 78 mg/dL (65-105); Magnesium 1.9 mg/dL (1.6-2.3); Potassium 3.9 mmol/L (3.4-5.0); Sodium 127 mmol/L (137-145)
[2021-02-24 15:16] LABS: INR 1.1; Prothrombin Time 14.7 Seconds (11.1-14.7)
[2021-02-24 15:17] LABS: Partial Thromboplastin Time 42.2 SECONDS (22.3-36.8)
--- NOTE | 2021-02-24 16:09 | WPDCN ---
Assessment and Plan Assessment and plan (1) Abdominal wall abscess at site of surgical wound: Code(s): T81.49XA - Infection following a procedure, other surgical site, initial encounter Status: Acute Assessment and Plan: I&D Additional Plan To the OR today to irrigate. HPI Data of Consult Date/Time: 02/24/21 16:09 Requesting Physician: Wesley Mott MD Primary Care Provider: Duglas Collado, Consult Narrative Narrative: Katheryn Pantoja is a 70 year old female patient of Dr Pereira. She is a month S/P abdominal panniculectomy. She had not reported any post operative complaints until today when her condition became unbearable. She has not been eating and has had nausea most of the time since her surgery. She has not been febrile but was admitted today with a WBC of 28K and complaints of pain in the area of her incision. In the ED she was taken for CT and began to drain brown pus while there. She seems to have drained over two cups of fluid since. She feels much better. I had a conversation with Dr Pereira who is on vacation and we agreed that I should taker to the OR for I&D. Cultures have been sent already by the hospitalist. CT revealed a large suprafascial collection of fluid. The pt has several health issues including a cardiac condition requiring a pacemaker/defibrillator. The condition is not clear. She is diabetic with hypertension. She has had several major surgeries including gastric banding. She is alert and cooperative. She is in good humor. She has a leukocytosis. Hb is 13.3. Na is 129. Liver enzymes are mildly elevated. There is a well healed surgical wound with a one cm gap near the midline draining thin brown pus. There is a 2cm margin of erythema across most of the incision. She has agreed to have the abdominal wound explored and washed out. She will remain in the hospital. [facility] Past Medical History Medical History (Updated 02/24/21 @ 15:49 by Leanne Ureña PA-C) Cardiac dysrhythmia Patient on sotalol. Unsure if atrial or ventricular dysrhythmia. Cardiomyopathy Status post PM/ICD insertion. Previous EF of 35% (per patient report). Patient of Dr. Boggs. Cerebrovascular accident Chronic lacunar infarct near anterior limb of right internal capsule noted on brain CT dated 02/24/2021. This was unknown to the patient. Depression Diverticulitis Hyperlipidemia Hypertension Hypothyroidism Type 2 diabetes mellitus Hemoglobin A1c was 5.4% on 02/24/2021. Surgical History Surgical History Cardiac defibrillator in place History of foot surgery History of hysterectomy History of laparoscopic adjustable gastric banding History of left knee surgery History of partial colectomy Partial left colectomy secondary to diverticulitis. History of right breast biopsy Benign pathology. History of thumb surgery Status post panniculectomy Family History Family History Other Diabetes mellitus Heart disease Hypertension Venous thromboembolism Social History Social History (Updated 02/24/21 @ 15:51 by Leanne Ureña PA-C) Social History: Surrogate decision maker: Jonathan Pantoja, . Code: Full code. Smoking status: Never smoker Alcohol intake: former Substance use: never Substance use type: does not use Additional living arrangements comments: Resides in [place] with her . They have 2 children, one from a drug overdose. 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 Spiritual care concerns: No Meds Home Medications and Allergies Home Medications Medication Instructions Recorded Confirmed Type ergocalciferol (vitamin D2) 1 cap PO WEEKLY 11/08/20 01/23/21 History glipizide 5 mg tablet 5 mg PO DAILY 11/08/20 01/23/21 History venlafaxine 75 m
--- NOTE | 2021-02-24 16:38 | WPDANESEFPP ---
Anes - Eval Final PreProcedure Day of Procedure 02/24/21 16:38 Patient weight: overweight Heart: regular rate and rhythm Lungs: clear to auscultation and normal air movement Airway: Mallampati scale class III Neurological: alert and oriented Last oral intake: >/= 8 hours ASA classification: IV Emergent: no Anesthetic plan: proceed Anesthesia type and monitoring: general ETT Informed Consent: The patient's anesthetic plan and its attendant risks and benefits were discussed with the patient/family/POA. Questions were solicited and answers provided to the satisfaction of the patient/family/POA.
[2021-02-24] MEDS: DEXTROSE 50% 25 GM/50 ML SYRINGE IV PUSH ×2 (16:56→21:27)
[2021-02-24 17:07] LABS: Glucose Point of Care 134 (65-105)
[2021-02-24 17:07] LABS: Glucose Point of Care 54 (65-105)
[2021-02-24] MEDS: LACTATED RINGERS 1,000 ML 30 ML IV CONT (17:45)
--- NOTE | 2021-02-24 17:46 | PC.NURSE ---
Patient to OR per bed. Updated reports provided to JUWAN Hodge; JUWAN Thomas; Dr. Rosenberg; and IRA Jameson r/t blood pressures post bolus and hypoglycemic event. Patient to be transferred to ICU 8 post-operatively.
[2021-02-24] MEDS: BACITRACIN OINTMENT 15 GM TUBE 1 APPLIC TOPICAL (18:18)
--- NOTE | 2021-02-24 18:36 | PC.NURSE ---
Patient to transition to ICU 8, report to JUWAN Hernandez. Pt. belongings taken to ICU 8 and spouse updated.
--- NOTE | 2021-02-24 18:44 | PC.NURSE ---
Unable to complete home med list prior to transfer to ICU. Attempt to update post report was unsuccessful r/t chart being locked by Dr. Lazo.
[2021-02-24 18:46] LABS: Glucose Point of Care 192 (65-105)
[2021-02-24] MEDS: fentaNYL CITRATE INJ (*CRX) 100 MCG/2 ML VIAL 25 MCG IV PUSH (18:50)
[2021-02-24] MEDS: SODIUM CHLORIDE 0.9% IV 1,000 ML 999 ML IV CONT (19:38)
--- NOTE | 2021-02-24 19:42 | PM.OP ---
Procedure Note - Brief Procedure Note - Brief Date of procedure: 02/24/21 Pre-op diagnosis: postoperative wound abscess Post-op diagnosis: same Procedure performed: Drainage of large subcutaneous abscess. Anesthesia: GLMA Surgeon: Brett Lazo MD Automotive Brake Adjuster: Car Estimated blood loss (mL): 10 Drains: Yes Packing: Yes Pathology: none sent Complications: No immediate complications Condition: stable Disposition: ICU
--- NOTE | 2021-02-24 19:44 | PM.PROC ---
Procedure Note - Detailed Date of procedure: 02/24/21 Pre-op diagnosis: postoperative wound abscess Post-op diagnosis: same Procedure performed: Exploration and drainage of subcutaneous abdominal abscess Description of procedure: The patient is brought emergently from the floor after being admitted through the ER today. She was seen by anesthesia. The procedure was explained to her . She was taken to the operating room and placed supine on the operating table. A time-out was held and confirmed. She was given general anesthesia with an LMA. The entire abdomen was prepped and draped in usual fashion. The drainage site which was about an inch long in the midline of the abdominal wound closure was length in 2 about 3 times that length. At this point to was very little free pus is having been drained spontaneously or by the physician's certified surgical assistant with suction catheter as the abdomen was prepped. There was very little bleeding throughout this procedure. We explored the entire cavity digitally. All areas were reachable by finger tip without placing a hand entirely inside the abdomen. No additional abscess pockets were identified. The entire wound was irrigated with 4 L of saline and all surfaces were briskly abraded with a gauze sponges. No gangrenous tissue was identified. There is no weakness in the abdominal wall and there was no additional penetration of the abscess through the skin. I determined the most dependent sites on the abscess cavity and a 1/2 inch Ganesh drain was passed through each of those, 1 on each side. These were sutured to the skin. Each is approximately 8 in long. Approximately 2 ft of vaginal packing in 2 pieces were laid inside the deeper portions of the cavity to prevent premature closure. She is awakened and transported in stable condition to the recovery room. Anesthesia: GLMA Surgeon: Brett Lazo MD Biomedical Field Service Engineer: Car Estimated blood loss (mL): 10 Drains: Yes Packing: Yes Pathology: none sent Complications: No immediate complications Condition: stable Disposition: ICU
--- NOTE | 2021-02-24 20:15 | P.PCNBED_ITS ---
Procedures Central Line Placement Right Femoral: Central Line Date: 02/24/21 Central Line Time: 20:15 Discussed w/ the patient/family/POA,the placement of a central venous catheter, including its clinical necessity/indication & associated potential risks, benifits and alternatives.: Yes The patient/family/POA understand(s) and acknowledge(s) the need to proceed with central venous catheter insertion as an important element of the patient's clinical management.: Yes Consent: Patient gave consent. Time Out Performed: Yes Patient Position: supine Patient placed on monitor/pulse ox: Yes Provider Prep: mask, sterile gown, sterile gloves, Max. sterile barrier precautions, cap and hand hygiene with conventional soap/water or alcohol based hand rub Central line prep: 2% Chlorhexidine scrub Local anesthesia used: lidocaine 1% Amount of anesthesia used (ml): 5 Sterile US Technique with sterile gel/sterile probe covers: Yes Central line lumen inserted: triple Faroese: 7 Length (cm): 20 Post Procedure: sutured in place, good blood return, all ports aspirated, flushed, capped, transparent dressing, securement product and aseptic technique maintained throughout procedure Post procedure x-ray: other (n/a with femoral line.) Patient tolerated procedure: well Complications: none
[2021-02-24] MEDS: NOREPINEPHRINE 8 MG/D5W 250 ML 8 MG/250 ML BAG 9.38 MG IV CONT (20:26)
--- NOTE | 2021-02-24 20:57 | PC.NURSE ---
Report received from JUWAN Hernandez at shift change 1900, patient still down in the OR, to go to ICU room 8.
[2021-02-24 22:25] LABS: Glucose Point of Care 195 (65-105)
[2021-02-24 22:25] LABS: Glucose Point of Care 151 (65-105)
[2021-02-24 22:25] LABS: Glucose Point of Care 49 (65-105)
[2021-02-24 22:28] LABS: Hematocrit 29.4 % (37.0-47.0); Hemoglobin 9.8 g/dL (12.0-15.0)
[2021-02-24 22:38] LABS: Anion Gap 0 mmol/L (8-16); Blood Urea Nitrogen 9 mg/dL (7-17); Calcium 7.9 mg/dL (8.4-10.2); Carbon Dioxide 27 mmol/L (22-30); Chloride 105 mmol/L (98-107); Estimated CRCL calculation 54 ml/min; Estimated Glomerular Filt Rate > 60; Glucose 128 mg/dL (65-105); Magnesium 1.8 mg/dL (1.6-2.3); Potassium 3.2 mmol/L (3.4-5.0); Sodium 132 mmol/L (137-145)
[2021-02-24] MEDS: DEXTROSE 5%/0.9% SOD CHL 1,000 ML 75 ML IV CONT (23:46)
[2021-02-25] VITALS (29 sets, daily range): BP systolic 74–135; BP diastolic 43–83; PULSE 71–95; RESP 16–23; TEMP 36.1–36.4; O2SAT 95–100
[2021-02-25 00:28] LABS: Glucose Point of Care 100 (65-105)
[2021-02-25 01:55] LABS: Glucose Point of Care 85 (65-105)
[2021-02-25 02:35] LABS: Glucose Point of Care 76 (65-105)
[2021-02-25 02:35] LABS: Glucose Point of Care 89 (65-105)
--- NOTE | 2021-02-25 03:15 | PC.NURSE ---
This patient arrived to ICU room 8 at 191 from the OR. JUWAN Hodge gave report to this nurse at bedside. Belongings brought with patient to new room.
[2021-02-25 03:55] LABS: Glucose Point of Care 96 (65-105)
[2021-02-25 04:49] LABS: Glucose Point of Care 107 (65-105)
[2021-02-25 04:50] LABS: Basophils Absolute Auto 0.1 K/mm3 (0.0-0.1); Basophils Percent Auto 0.4 % (0.2-1.2); Eosinophils Absolute Auto 0.7 K/mm3 (0-0.3); Eosinophils Percent Auto 3.6 % (0-4.4); Hematocrit 28.9 % (37.0-47.0); Hemoglobin 9.8 g/dL (12.0-15.0); Immature Granulocyte Absolute 0.48 K/mm3 (0.00-0.031); Immature Granulocyte Percent A 2.4 % (0-0.5); Lymphocytes Absolute Auto 1.39 K/mm3 (0.9-3.2); Lymphocytes Percent Auto 6.9 % (18.3-44.2); Mean Corpuscular HGB Conc 33.9 g/dl (32-36); Mean Corpuscular Hemoglobin 30.4 pg (26-34); Mean Corpuscular Volume 89.8 fl (80-100); Mean Platelet Volume 10.9 fl (7.4-10.4); Monocytes Absolute Auto 2.9 K/mm3 (0.1-0.6); Monocytes Percent Auto 14.3 % (2.6-8.5); Neutrophils Absolute Auto 14.6 K/mm3 (1.3-6.7); Neutrophils Percent Auto 72.4 % (45.5-73.1); Platelet Count Result 227 k/mm3 (150-375); Red Blood Count 3.22 M/mm3 (4.2-5.4); Red Cell Distribution Width 12.5 % (11.5-14.5); White Blood Count 20.1 K/mm3 (4.5-10.0)
[2021-02-25 05:07] LABS: Alanine Aminotransferase 33 U/L (4-35); Albumin Level 2.2 g/dL (3.5-5.1); Alkaline Phosphatase 150 U/L (38-126); Anion Gap 0 mmol/L (8-16); Aspartate Amino Transferase 104 U/L (14-36); Bilirubin,Total 0.2 mg/dL (0.2-1.3); Blood Urea Nitrogen 8 mg/dL (7-17); Calcium 8.1 mg/dL (8.4-10.2); Carbon Dioxide 25 mmol/L (22-30); Chloride 108 mmol/L (98-107); Estimated CRCL calculation 61 ml/min; Estimated Glomerular Filt Rate > 60; Glucose 106 mg/dL (65-105); Potassium 3.4 mmol/L (3.4-5.0); Sodium 133 mmol/L (137-145)
[2021-02-25] MEDS: CENTRAL LINE FLUSH 10 ML IV PUSH ×3 (05:10→22:30)
[2021-02-25 06:53] LABS: Glucose Point of Care 126 (65-105)
[2021-02-25 08:56] LABS: Glucose Point of Care 115 (65-105)
--- NOTE | 2021-02-25 09:48 | PM.CNCAR ---
Assessment and Plan Additional Plan this is a 70-year-old lady with a significant nonischemic cardiomyopathy being treated with her defibrillator and medical regimen including Entresto and sotalol. She has not had any recent cardiac instability she is hospitalized yesterday with an abdominal wall abscess that is the result of recent cosmetic surgery. In the setting of septic shock she was hypotensive is on pressor support and broad-spectrum antibiotics following the abscess drainage yesterday. I do not believe her small pericardial effusion is causing any clinical issues at this time. We will follow her clinically with you obviously her heart failure regimen needs to be resumed and if reintroduced as her condition improves as sepsis resolves. At this time there are no other specific cardiac recommendations to make. Reinaldo Perez MD [facility] History of Present Illness History of Present Illness Consult date/time: 02/25/21 09:48 Reason For Visit: postoperative wound abscess Narrative: This is a 70-year-old woman that I have seeing at the request of the hospitalist this morning because she was found to have a pericardial effusion on echo abdomen/chest CT. She came to the hospital yesterday with abdominal pain related to a recent cosmetic operation that was done for panniculectomy by 1 of the surgeons here at [facility]. Apparently she was having significant postoperative pain and was admitted to the hospital and while on the floor the abscess at the site of the incision ruptured and was draining externally. She had a CT scan apparently before this that showed a fairly large abscess cavity that cuts through the chest demonstrated a small to moderate-sized pericardial effusion prompting the staff to call me yesterday late afternoon/ early evening for a stat consult. I was on the telephone with the nurse and the hospitalist and being told that the patient was being taken immediately to the operating room for abscess drainage and I was being called because the patient was hypotensive with systolic blood pressures in the 80s. Obviously I was not in the hospital and there was no opportunity for me to provide a stat consultation at that time. There was no evidence that there was an immediate cardiac problem from what I heard on the telephone. She has a history of heart disease and is a patient of a [employer]. She is tells me that she has a 4-5 year history of a significant nonischemic cardiomyopathy. She is on medical therapy for this she also has a history of malignant ventricular arrhythmias and a ICD has been implanted. For treatment of this she also was receiving sotalol. I do not have any immediate records from her [facility] [employer] practice for my review. At this morning she is hospitalized in ICU room number age she is extubated appears to be comfortable and offers no cardiac complaints. Because of hypotension her Entresto and sotalol are not being given at this time. She is in sinus rhythm with occasional to sometimes frequent PVCs. She did tell me that after her defibrillator was placed there was significant difficulty with ventricular lead dislodgement and inappropriate shocking her ventricular lead had to be repositioned a couple of times from what it sounds but recently has been functioning properly. Review of Systems Constitutional: Constitutional: Reports no additional constitutional complaints Eyes: Eyes: Reports no additional eye complaints ENT: Reports system reviewed and no additional complaints, except as documented Cardiovascular: Cardiovascular: Reports as per HPI Respiratory: Respiratory: Reports no additional respiratory complaints Gastrointestinal: Gastrointestinal: Reports no additional gastrointestinal complaints Musculoskeletal: Musculoskeletal: Reports no additional musculoskeletal complaints Integumentary/Breasts: Skin/Breast: Reports system reviewed and no additional complaints, except as
[2021-02-25] MEDS: traMADol HCL (*CRX) 50 MG TABLET PO ×2 (10:19→20:41)
--- NOTE | 2021-02-25 10:20 | PM.IMPN ---
Progress Note: A&P Assessment and Plan (1) Postoperative infection: Code(s): T81.40XA - Infection following a procedure, unspecified, initial encounter Status: Acute Assessment and Plan: Continue imipenem status post incision and drainage Follow surgery recommendations Local care Supportive care (2) Abdominal wall abscess at site of surgical wound: Code(s): T81.49XA - Infection following a procedure, other surgical site, initial encounter Status: Acute Assessment and Plan: Status post incision and drainage (3) Hyponatremia: Code(s): E87.1 - Hypo-osmolality and hyponatremia Status: Acute Assessment and Plan: Will continue to monitor (4) Pericardial effusion: Code(s): I31.3 - Pericardial effusion (noninflammatory) Status: Acute Assessment and Plan: No signs of tamponade Continue to monitor (5) Syncope: Code(s): R55 - Syncope and collapse Status: Acute Assessment and Plan: Likely to be vasovagal in nature Continue to monitor (6) Cardiomyopathy: Code(s): I42.9 - Cardiomyopathy, unspecified Status: Acute Assessment and Plan: Continue home meds Continue to monitor Appears to be stable (7) Type 2 diabetes mellitus: Code(s): E11.9 - Type 2 diabetes mellitus without complications Status: Acute Assessment and Plan: Continue to monitor 1800 calorie diet car consistent Insulin sliding scale as needed (8) Hypertension: Code(s): I10 - Essential (primary) hypertension Status: Inactive Assessment and Plan: Restart home meds (9) Hypothyroidism: Code(s): E03.9 - Hypothyroidism, unspecified Status: Acute Assessment and Plan: Continue to monitor Will follow-up in the outpatient setting (10) Cardiac dysrhythmia: Code(s): I49.9 - Cardiac arrhythmia, unspecified Status: Chronic Assessment and Plan: Continue sotalol Continue to monitor (11) Elevated LFTs: Code(s): R79.89 - Other specified abnormal findings of blood chemistry Status: Acute Assessment and Plan: Continue to monitor Additional Plan The patient presents today for evaluation of weakness and increasing abdominal pain found to have a large postoperative abdominal wall abscess. Labs, imaging, and EKG were reviewed. She is going to the OR today per Dr. Lazo for washout of the wound. Continue broad-spectrum antibiotics including vancomycin and imipenem, pending wound culture. Her sodium is moderately decreased, most likely related to dehydration. I suspect her syncopal episode last night was due lower blood pressures thus will obtain orthostatic vital signs. She does have a history of cardiac dysrhythmia and is on sotalol thus will interrogate PM/ICD device. She will be monitored on telemetry. I have ordered an echocardiogram given the pericardial effusion on imaging today. No evidence of tamponade by exam. I will ask for records from pharmacists for review so we can get a better understanding of what exactly her underlying cardiac issues are. Her blood pressures have been running a bit soft thus will continue with cautious IV fluid rehydration. We need to avoid over-hydration given her underlying cardiomyopathy. Antihypertensives on hold given soft blood pressures. Oral hypoglycemics on hold given poor appetite; hemoglobin A1c today was 5.4%. It is unclear why her LFTs are elevated but her hepatitis-C antibody screen did come back reactive thus will send further testing. Hold statin for now and monitor. Her home medications will be reviewed and resumed as appropriate. Patient is status post incision and drainage she is doing well will restart home meds will likely start diet follow surgery recommendations. Subjective Date/time seen: 10:20 I feel okay Review of Systems Review of Systems: Narrative: Patient presented to the emergency room after she
--- NOTE | 2021-02-25 10:40 | WPDPN ---
Progress Note: A&P Assessment and Plan (1) Abdominal wall abscess at site of surgical wound: Code(s): T81.49XA - Infection following a procedure, other surgical site, initial encounter Status: Acute (2) Type 2 diabetes mellitus: Code(s): E11.9 - Type 2 diabetes mellitus without complications Status: Acute (3) Elevated LFTs: Code(s): R79.89 - Other specified abnormal findings of blood chemistry Status: Acute (4) Pericardial effusion: Code(s): I31.3 - Pericardial effusion (noninflammatory) Status: Acute Additional Plan The primary issue of abdominal wall abscess has been addressed and is improving. We will keep her in the hospital overnight at least. Dr. Pereira will evaluate her tomorrow afternoon and and can make further plans for her. No additional acute intervention is planned at this time. Her liver function tests are improving as her wound improves. Her diabetic and cardiac issues will be addressed by other physicians. Time Spent With Patient Time with patient: less than 15 minutes Exam Narrative: Exam Narrative: she [place] [id number]. That is decreased from yesterday. Her hemoglobin is also decreased to 9.8. The latter probably due to fluid resuscitation. Other lab values are improved. Wound culture is pending I examined the abdomen today after removing the outer layers of gauze. There is no purulence. Drainage is moderate, pink serosanguineous. Drains and packing remained in place. Erythema and tenderness are diminished The patient has been evaluated by Cardiology and those issues may keep her in the ICU a bit longer. Objective Data Vital Signs Vital Signs: Vital Signs - 24 hr 02/24/21 12:10 02/24/21 13:53 02/24/21 15:55 Temperature 36.3 C L Pulse Rate 88 88 77 Respiratory Rate 16 16 26 H Blood Pressure 129/86 128/60 93/60 L Pulse Oximetry 97 97 93 02/24/21 18:16 02/24/21 18:31 02/24/21 18:47 Temperature 36.3 C L 36.1 C L Pulse Rate 78 85 88 Respiratory Rate 22 H 17 18 Blood Pressure 131/60 100/49 L 93/45 L Pulse Oximetry 99 100 100 02/24/21 19:30 02/24/21 19:40 02/24/21 19:45 Temperature Pulse Rate 74 77 Respiratory Rate Blood Pressure 83/38 L 83/38 L 79/39 L Pulse Oximetry 02/24/21 20:00 02/24/21 20:15 02/24/21 20:26 Temperature 36.4 C Pulse Rate 80 74 72 Respiratory Rate 19 Blood Pressure 91/43 L 135/65 131/62 Pulse Oximetry 100 02/24/21 20:45 02/24/21 20:53 02/24/21 21:00 Temperature Pulse Rate 71 70 69 Respiratory Rate Blood Pressure 110/48 L 110/50 L 110/49 L Pulse Oximetry 02/24/21 21:15 02/24/21 21:30 02/24/21 21:45 Temperature Pulse Rate 69 68 71 Respiratory Rate Blood Pressure 118/54 L 145/64 H 104/50 L Pulse Oximetry 02/24/21 22:00 02/25/21 00:00 02/25/21 00:15 Temperature 36.4 C Pulse Rate 80 77 71 Respiratory Rate 22 H 18 Blood Pressure 120/56 L 99/60 L 120/52 L Pulse Oximetry 99 100 02/25/21 00:30 02/25/21 00:45 02/25/21 01:30 Temperature Pulse Rate 74 75 80 Respiratory Rate Blood Pressure 107/49 L 105/50 L 74/60 L Pulse Oximetry 02/25/21 02:00 02/25/21 02:30 02/25/21 03:00 Temperature Pulse Rate 95 76 77 Respiratory Rate 22 H Blood Pressure 135/83 100/55 L 104/58 L Pulse Oximetry 98 02/25/21 03:30 02/25/21 04:00 02/25/21 04:30 Temperature 36.4 C L Pulse Rate 76 75 75 Respiratory Rate 21 H Blood Pressure 103/58 L 108/57 L 107/59 L Pulse Oximetry 100 02/25/21 05:00 02/25/21 05:30 02/25/21 06:00 Temperature Pulse Rate 78 78 78 Respiratory Rate 23 H Blood Pressure 128/79 112/56 L 116/57 L Pulse Oximetry 95 02/25/21 06:42 02/25/21 06:43 02/25/21 07:53 Temperature 36.1 C L Pulse Rate 80 82 83 Respiratory Rate 18 Blood Pressure 118/59 L 111/56 L 103/62 Pulse Oximetry 96 02/25/21 08:00 02/25/21 10:00 Temperature Pulse Rate 80 73 Respirator
--- NOTE | 2021-02-25 11:15 | WPDCNINT ---
Assessment and Plan Assessment and plan (1) Septic shock: Code(s): A41.9 - Sepsis, unspecified organism; R65.21 - Severe sepsis with septic shock Status: Acute Assessment and Plan: Patient is septic shock, hypertension likely related to abdominal wall abscess. Patient also had elevated LFTs which are trending down -continue imipenem and vancomycin -blood cultures have been obtained and pending -patient was adequately fluid-resuscitated, -currently on Levophed at 2 mcg/min, will maintain mean arterial pressures greater than 65 mmHg (2) Abdominal wall abscess at site of surgical wound: Code(s): T81.49XA - Infection following a procedure, other surgical site, initial encounter Status: Acute Assessment and Plan: Drainage of large subcutaneous Abdominal abscess -plastic surgery following the patient -wound has been packed and has been evaluated by the surgeon today -continue wound care recommendations per surgeon (3) Cardiomyopathy: Code(s): I42.9 - Cardiomyopathy, unspecified Status: Acute Assessment and Plan: Could be related to dysrhythmia, order echocardiogram for a.m. to evaluate structure and function of myocardium -cardiology has been consulted to follow the patient (4) Type 2 diabetes mellitus: Code(s): E11.9 - Type 2 diabetes mellitus without complications Status: Acute Assessment and Plan: Sliding scale and Accu-Chek -hemoglobin A1c is 5.4 this admission (5) Pericardial effusion: Code(s): I31.3 - Pericardial effusion (noninflammatory) Status: Acute Assessment and Plan: Mild to Moderate pericardial effusion -echocardiogram has been ordered (6) Elevated LFTs: Code(s): R79.89 - Other specified abnormal findings of blood chemistry Status: Acute Assessment and Plan: Elevated LFTs likely related to septic shock/hypotension. -have TS improving (7) Cardiac dysrhythmia: Code(s): I49.9 - Cardiac arrhythmia, unspecified Status: Chronic Assessment and Plan: History of cardiac dysrhythmia, patient on sotalol -patient also has an AICD and pacemaker in place (8) Hyponatremia: Code(s): E87.1 - Hypo-osmolality and hyponatremia Status: Acute Assessment and Plan: Likely related to infection from septic shock, volume overload -sodium levels improving -will continue to monitor Additional Plan Discussed with patient and the and updated them with patient's condition and plan of care. I answered all questions Code status: Full code Critical care time spent: 44 minutes This dictation may have been done utilizing a voice recognition system. Attempts have been made to correct errors. However, there may be uncorrected grammatical, spelling, and recognition errors present. Due to a high probability of clinically significant, life threatening deterioration, the patient required my highest level of preparedness to intervene emergently and I personally spent this critical care time directly and personally managing the patient. This critical care time included obtaining a history; examining the patient; pulse oximetry; ordering and review of studies; arranging urgent treatment with development of a management plan; evaluation of patient's response to treatment; frequent reassessment; and discussions with other providers. It was exclusive of separately billable procedures and treating other patients and teaching time. Please see Assessment and Plan section and the rest of the note for further information on patient assessment and treatment Nerve Specialist Consult Note Consult date: 02/25/21 Time Seen: 07:06 HPI: Katheryn Pantoja is a 70 year old female with past medical history of cardiomyopathy own interest to, pacemaker/ICD insertion, cardiac dysrhythmias on sotalol, type 2 diabetes, dyslipidemia, hypothyroidism presented to the ED with complains of postop abdominal pain. She is status post
[2021-02-25 12:03] LABS: Glucose Point of Care 111 (65-105)
--- NOTE | 2021-02-25 12:07 | WPDANESPN ---
Anes - Prog Note Post-Op Date/Time: 02/25/21 12:07 Cardiovascular status: other (on levophed drip ) Respiratory status: normal Airway patency: baseline Mental status: baseline Post-Op hydration status: normal Vital Signs: Last Vital Signs Temp 36.1 C L 02/25/21 07:53 Pulse 73 02/25/21 10:00 Resp 18 02/25/21 10:00 BP 89/66 L 02/25/21 10:00 Pulse Ox 96 02/25/21 10:00 Pain Score (VAS): Patient resting in bed at time of assessment, appears comfortable. Levophed drip continues. I/O: Intake & Output 02/24/21 02/25/21 02/25/21 23:59 07:59 15:59 Intake Total 2500 795 250 Output Total 550 1150 Balance 1950 -355 250 Laboratory Tests 02/25/21 04:45 02/25/21 04:45 02/24/21 02/24/21 02/24/21 14:55 14:55 14:55 WBC RBC Hgb Hct MCV MCH MCHC RDW Plt Count MPV Immature Gran % (Auto) Neut % (Auto) Lymph % (Auto) Lassen % (Auto) Eos % (Auto) Baso % (Auto) Lymph # (Auto) Lassen # (Auto) Eos # (Auto) Baso # (Auto) Abs Immat Gran (auto) Absolute Neuts (auto) Absolute Nucleated RBC Nucleated RBC % PT 14.7 INR 1.1 APTT 42.2 H Sodium 127 L Potassium 3.9 Chloride 95 L Carbon Dioxide 28 Anion Gap 4 L BUN 13 Creatinine 0.90 Estim Creat Clear Calc 46 Estimated GFR > 60 Glucose 78 POC Capillary Glucose Hemoglobin A1c 5.4 Lactic Acid Calcium 9.1 Magnesium 1.9 Total Bilirubin 0.4 AST 195 H ALT 48 H Alkaline Phosphatase 198 H Total Creatine Kinase < 20 L Total Protein 6.0 L Albumin 2.7 L Prealbumin TSH (Reflex) 02/24/21 02/24/21 02/24/21 14:55 16:35 16:54 WBC RBC Hgb Hct MCV MCH MCHC RDW Plt Count MPV Immature Gran % (Auto) Neut % (Auto) Lymph % (Auto) Lassen % (Auto) Eos % (Auto) Baso % (Auto) Lymph # (Auto) Lassen # (Auto) Eos # (Auto) Baso # (Auto) Abs Immat Gran (auto) Absolute Neuts (auto) Absolute Nucleated RBC Nucleated RBC % PT INR APTT Sodium Potassium Chloride Carbon Dioxide Anion Gap BUN Creatinine Estim Creat Clear Calc Estimated GFR Glucose POC Capillary Glucose 54 L* Hemoglobin A1c Lactic Acid Calcium Magnesium Total Bilirubin AST ALT Alkaline Phosphatase Total Creatine Kinase Total Protein Albumin Prealbumin 3.0 L TSH (Reflex) 2.050 02/24/21 02/24/21 02/24/21 17:05 18:43 21:24 WBC RBC Hgb Hct MCV MCH MCHC RDW Plt Count MPV Immature Gran % (Auto) Neut % (Auto) Lymph % (Auto) Lassen % (Auto) Eos % (Auto) Baso % (Auto) Lymph # (Auto) Lassen # (Auto) Eos # (Auto) Baso # (Auto) Abs Immat Gran (auto) Absolute Neuts (auto) Absolute Nucleated RBC Nucleated RBC % PT INR APTT Sodium Potassium Chloride Carbon Dioxide Anion Gap BUN Creatinine Estim Creat Clear Calc Estimated GFR Glucose POC Capillary Glucose 134 H 192 H 49 L* Hemoglobin A1c Lactic Acid Calcium Magnesium Total Bilirubin AST ALT Alkaline Phosphatase Total Creatine Kinase Total Protein Albumin Prealbumin TSH (Reflex) 02/24/21 02/24/21 02/24/21 21:49 22:11 22:13 WBC RBC Hgb 9.8 L D Hct 29.4 L MCV MCH MCHC RDW Plt Count MPV Immature Gran % (Auto) Neut % (Auto) Lymph % (Auto) Lassen % (Auto) Eos % (Auto) Baso % (Auto) Lymph # (Auto) Lassen # (Auto) Eos # (Auto) Baso # (Auto) Abs Immat Gran (auto) Absolute Neuts (auto) Absolute Nucleated RBC Nucleated RBC % PT INR APTT Sodium Potassium Chloride Carbon Dioxide Anion Gap BUN Creatinine Estim Creat Clear Calc Estimated GFR Glu
[2021-02-25] MEDS: DEXTROSE 5%/0.9% SOD CHL 1,000 ML 75 ML IV CONT (14:14)
[2021-02-25 14:39] LABS: Glucose Point of Care 206 (65-105)
[2021-02-25 17:30] LABS: Glucose Point of Care 160 (65-105)
[2021-02-26] VITALS (20 sets, daily range): BP systolic 92–119; BP diastolic 53–91; PULSE 77–107; RESP 16–25; TEMP 36–36.9; O2SAT 95–100
--- NOTE | 2021-02-26 | ECHO_ITS ---
Patient Info Name: Katheryn Pantoja Age: 70 years : 1950 Gender: Female Ht: 63 in Wt: 160 lbs BSA: 1.82 m2 HR: 75 bpm BP: 109 / 61 mmHg Heart Rhythm: Sinus Rhythm Technical Quality: Good Exam Date: 02/26/2021 3:42 PM Exam Location: [facility] Pulmonary Exam Room: ICU8 Patient Status: Inpatient Admit Date: 02/24/2021 Staff Ordering Physician: Leanne Ureña PA-C Civil Engineer'S Aide: Shauna Downs RDCS Attending Provider: Wesley Mott MD Referring Physician: Niranjan EMMANUEL; Exam Type: CA echo doppler color flow Study Info Indications - CM PERICARDIAL EFFUSION AICD Complete two-dimensional, color flow and Doppler transthoracic echocardiogram is performed. Summary 1. Complete two-dimensional, color flow and Doppler transthoracic echocardiogram is performed. 2. Left ventricular chamber size, wall thickness, systolic function are normal with no regional wall motion abnormalities with an estimated ejection fraction of 60-65 %. Grade 1 diastolic dysfunction is present. 3. No pulmonary hypertension, estimated pulmonary arterial systolic pressure is 34 mmHg. 4. There is mild tricuspid valve regurgitation. 5. Small circumferential pericardial effusion is present, 0.7 cm thick anteriorly and 1.4 cm posteriorly with no tamponade physiology. 6. Possible pacemaker lead in right ventricle. 7. Normal sinus rhythm. Left Ventricle Left ventricular chamber dimension is normal. Left ventricular systolic function is normal, estimated at 60-65%. There is no increased left ventricular wall thickness. Left ventricular septal wall motion is normal. The left ventricular diastolic function is grade I diastolic dysfunction. Left ventricular chamber size, wall thickness, systolic function are normal with no regional wall motion abnormalities with an estimated ejection fraction of 60-65 %. Grade 1 diastolic dysfunction is present. Right Ventricle Right ventricular chamber dimension is normal. Right ventricular systolic function is normal. Left Atria Left atrial chamber dimension is normal. Right Atria Right atrial chamber dimension is normal. Aortic Valve The aortic valve is trileaflet. There is no aortic valve sclerosis. There is no aortic valve stenosis. There is no aortic valve regurgitation. Pulmonic Valve The pulmonic valve is normal. There is no pulmonic valve stenosis. There is no pulmonic regurgitation. Mitral Valve The mitral valve has normal leaflets. There is no mitral valve stenosis. There is trace mitral valve regurgitation. Tricuspid Valve The tricuspid valve leaflets are normal. There is no significant tricuspid valve stenosis. There is mild tricuspid valve regurgitation. No pulmonary hypertension, estimated pulmonary arterial systolic pressure is 34 mmHg. Pericardium/Pleural The pericardium appears normal. There is small circumferential pericardial effusion. Inferior Vena Cava Normal inferior vena cava with >50% collapse upon inspiration consistent with Empty right atrial pressure, 10 mmHg. Aorta The aortic root size at the sinus of Valsalva is normal. The prox ascending aorta size is normal. Left Ventricular Outflow Tract Name Value Normal LVOT 2D LVOT Diamet
[2021-02-26 00:19] LABS: Glucose Point of Care 97 (65-105)
[2021-02-26] MEDS: CENTRAL LINE FLUSH 10 ML IV PUSH ×3 (05:14→21:57)
[2021-02-26 05:31] LABS: Basophils Absolute Auto 0.1 K/mm3 (0.0-0.1); Basophils Percent Auto 0.8 % (0.2-1.2); Eosinophils Absolute Auto 0.7 K/mm3 (0-0.3); Eosinophils Percent Auto 6.3 % (0-4.4); Hematocrit 28.4 % (37.0-47.0); Hemoglobin 9.4 g/dL (12.0-15.0); Immature Granulocyte Absolute 0.56 K/mm3 (0.00-0.031); Immature Granulocyte Percent A 5.3 % (0-0.5); Lymphocytes Absolute Auto 1.49 K/mm3 (0.9-3.2); Lymphocytes Percent Auto 14.1 % (18.3-44.2); Mean Corpuscular HGB Conc 33.1 g/dl (32-36); Mean Corpuscular Hemoglobin 30.2 pg (26-34); Mean Corpuscular Volume 91.3 fl (80-100); Mean Platelet Volume 10.4 fl (7.4-10.4); Monocytes Absolute Auto 1.8 K/mm3 (0.1-0.6); Monocytes Percent Auto 16.6 % (2.6-8.5); Neutrophils Percent Auto 56.9 % (45.5-73.1); Platelet Count Result 217 k/mm3 (150-375); Red Blood Count 3.11 M/mm3 (4.2-5.4); Red Cell Distribution Width 12.7 % (11.5-14.5); White Blood Count 10.6 K/mm3 (4.5-10.0)
[2021-02-26 05:55] LABS: Alanine Aminotransferase 22 U/L (4-35); Albumin Level 2.3 g/dL (3.5-5.1); Alkaline Phosphatase 124 U/L (38-126); Anion Gap 3 mmol/L (8-16); Aspartate Amino Transferase 44 U/L (14-36); Bilirubin,Total < 0.1 mg/dL (0.2-1.3); Blood Urea Nitrogen 5 mg/dL (7-17); Calcium 8.6 mg/dL (8.4-10.2); Carbon Dioxide 28 mmol/L (22-30); Chloride 106 mmol/L (98-107); Estimated CRCL calculation 62 ml/min; Estimated Glomerular Filt Rate > 60; Glucose 111 mg/dL (65-105); Magnesium 1.8 mg/dL (1.6-2.3); Phosphorus 2.8 mg/dL (2.5-4.5); Sodium 137 mmol/L (137-145)
[2021-02-26 06:28] LABS: Burr Cells 1+ (NORMAL); Ovalocytes 1+ (NORMAL); Platelet Estimate Adequate (Adequate)
--- NOTE | 2021-02-26 08:32 | WPDPN ---
Progress Note: A&P Assessment and Plan (1) Abdominal wall abscess at site of surgical wound: Code(s): T81.49XA - Infection following a procedure, other surgical site, initial encounter Status: Acute Additional Plan Doing dwell. No new problems. Explained my view on her condition to her and her . Ok if she sits up in chair. Ok for reg diet when OK with others. Ok for transfer. Next treatment plan per Dr Pereira. Time Spent With Patient Time with patient: less than 15 minutes Exam Narrative: Exam Narrative: Pt sitting up in bed and smiling. Clear liq. diet on her table.Has been getting a bed bath. Topper gauze removed. Vag packing and [place] drains in place.Small serosanguineous drainage. No erythema and non tender to exam. Objective Data Vital Signs Vital Signs: Vital Signs - 24 hr 02/25/21 10:00 02/25/21 12:00 02/25/21 14:00 Temperature 36.1 C L Pulse Rate 73 80 76 Respiratory Rate 18 20 18 Blood Pressure 89/66 L 94/80 L 93/43 L Pulse Oximetry 96 96 98 02/25/21 14:16 02/25/21 16:00 02/25/21 17:32 Temperature 36.1 C L Pulse Rate 81 Respiratory Rate 16 Blood Pressure 105/71 84/49 L 122/79 Pulse Oximetry 98 02/25/21 18:00 02/25/21 20:00 02/25/21 21:15 Temperature 36.4 C Pulse Rate 78 78 Respiratory Rate 16 18 Blood Pressure 133/68 113/58 L Pulse Oximetry 99 100 96 02/25/21 22:00 02/25/21 23:20 02/26/21 00:00 Temperature 36.8 C Pulse Rate 79 84 Respiratory Rate 16 20 Blood Pressure 101/57 L 109/65 102/57 L Pulse Oximetry 96 98 02/26/21 00:16 02/26/21 02:00 02/26/21 03:48 Temperature 36.7 C Pulse Rate 84 103 H Respiratory Rate 16 25 H Blood Pressure 102/57 L 92/62 L 94/53 L Pulse Oximetry 95 96 02/26/21 03:59 02/26/21 04:00 02/26/21 05:14 Temperature Pulse Rate 81 Respiratory Rate Blood Pressure 94/53 L 101/91 H Pulse Oximetry 02/26/21 06:00 Temperature Pulse Rate 95 Respiratory Rate 20 Blood Pressure 102/64 Pulse Oximetry 99 Intake/Output Intake/Output: Intake & Output 02/23/21 02/24/21 02/25/21 02/26/21 23:59 23:59 23:59 23:59 Intake Total 3850 2888 600 Output Total 900 2600 1700 Balance 2950 288 -1100 Meds/Results Medications: Active Medications Generic Name Dose Route Start Last Admin Trade Name Freq PRN Reason Stop Dose Admin Dextrose 12.5 gm 02/24/21 15:48 02/24/21 21:27 Dextrose 50% 25 Gm/50 Ml Syringe IV PUSH 12.5 gm PRN PRN Administration Hypoglycemia Protocol Glucagon 1 mg 02/24/21 15:48 Glucagon For Inj 1 Mg Vial IM PRN PRN Hypoglycemia Protocol Glucose 15 gm 02/24/21 15:48 Glucose Oral Gel 15 Gm Of Glucse In 37.5 Gm Tube PO PRN PRN Hypoglycemia Protocol Dextrose 1,000 mls @ 100 mls/hr 02/24/21 15:48 Dextrose 5% 1,000 Ml IVPB PRN PRN Hypoglycemia Protocol Norepinephrine Bitartrate 8 mg in 250 mls @ 0 mls/hr 02/24/21 19:40 02/26/21 05:14 Levophed 8 Mg/D5w 250 Ml IV CONT 0 mcg/min .Q0M JEANNE 0 mls/hr Titration Protocol 0 MCG/MIN Vancomycin HCl 1,000 mg in 250 mls @ 250 mls/hr 02/25/21 09:00 02/26/21 05:01 Vancomycin 1,000 Mg/D5w 250 Ml IVPB Infused Q18H JEANNE Infusion Imipenem/Cilastatin Sodium 500 100 mls @ 200 mls/hr 02/25/21 14:00 02/26/21 06:12 mg/ Dextrose IVPB Infused Q8HR JEANNE Infusion Insulin Aspart 2 - 5 units 02/24/21 17:00 02/26/21 07:46 Insulin Aspart (*Bkc) 100 Units/Ml SUB-Q Not Given TIDWM JEANNE Protocol Ondansetron HCl 4 mg 02/24/21 12:38 Ondansetron Inj 4 Mg/2 Ml Vial IV PUSH Q4H PRN Nausea Sodium Chloride 10 ml 02/25/21 06:00 02/26/21 05:14 Central Line Flush IV PUSH 10 ml Q8HR JEANNE Administration Sodium Chloride 20 ml 02/24/21 22:24 Central Line Flush IV PUSH PRN PRN after blood draws Tramadol HCl 50 - 100 mg 02/25/21 06:28 02/25/21 20:41 Tramadol Hcl (*Crx) 50 Mg Tablet
[2021-02-26] MEDS: POTASSIUM CHLORIDE 20 MEQ TABLET 40 MEQ PO (09:02)
--- NOTE | 2021-02-26 09:15 | WPDINTPN ---
Progress Note: A&P Assessment and Plan (1) Septic shock: Code(s): A41.9 - Sepsis, unspecified organism; R65.21 - Severe sepsis with septic shock Status: Acute Assessment and Plan: RESOLVED - Patient is septic shock, hypertension likely related to abdominal wall abscess. Patient also had elevated LFTs which are trending down -continue imipenem and vancomycin -blood cultures have been obtained and pending -patient was adequately fluid-resuscitated, -currently on Levophed at 2 mcg/min, will maintain mean arterial pressures greater than 65 mmHg (2) Abdominal wall abscess at site of surgical wound: Code(s): T81.49XA - Infection following a procedure, other surgical site, initial encounter Status: Acute Assessment and Plan: Drainage of large subcutaneous Abdominal abscess -plastic surgery following the patient -wound has been packed and has been evaluated by the surgeon today -continue wound care recommendations per surgeon (3) Cardiomyopathy: Code(s): I42.9 - Cardiomyopathy, unspecified Status: Acute Assessment and Plan: Could be related to dysrhythmia, order echocardiogram for a.m. to evaluate structure and function of myocardium -Appreciate cardiology evaluation and recommendations (4) Type 2 diabetes mellitus: Code(s): E11.9 - Type 2 diabetes mellitus without complications Status: Acute Assessment and Plan: Sliding scale and Accu-Chek -hemoglobin A1c is 5.4 this admission (5) Pericardial effusion: Code(s): I31.3 - Pericardial effusion (noninflammatory) Status: Acute Assessment and Plan: Mild to Moderate pericardial effusion, cardiology does not feel that it is causing any tamponade physiology -echocardiogram has been ordered (6) Elevated LFTs: Code(s): R79.89 - Other specified abnormal findings of blood chemistry Status: Acute Assessment and Plan: Elevated LFTs likely related to septic shock/hypotension. -LFTs almost normalized (7) Cardiac dysrhythmia: Code(s): I49.9 - Cardiac arrhythmia, unspecified Status: Chronic Assessment and Plan: History of cardiac dysrhythmia, patient on sotalol and Entresto, will resume once blood pressures permit -patient also has an AICD and pacemaker in place (8) Hyponatremia: Code(s): E87.1 - Hypo-osmolality and hyponatremia Status: Acute Assessment and Plan: Likely related to infection from septic shock, volume overload -sodium level normalized -will continue to monitor Additional Plan Discussed with patient and the and updated them with patient's condition and plan of care. I answered all questions Code status: Full code Critical care time spent: 32 minutes This dictation may have been done utilizing a voice recognition system. Attempts have been made to correct errors. However, there may be uncorrected grammatical, spelling, and recognition errors present. Due to a high probability of clinically significant, life threatening deterioration, the patient required my highest level of preparedness to intervene emergently and I personally spent this critical care time directly and personally managing the patient. This critical care time included obtaining a history; examining the patient; pulse oximetry; ordering and review of studies; arranging urgent treatment with development of a management plan; evaluation of patient's response to treatment; frequent reassessment; and discussions with other providers. It was exclusive of separately billable procedures and treating other patients and teaching time. Please see Assessment and Plan section and the rest of the note for further information on patient assessment and treatment Subjective Date/time seen: 02/26/21 09:15 Interval history: Reason for consult: Septic shock, abdominal wall abscess status post drainage 02/26/2021: Patient seen and examined the ICU, is off Levophed. Urine o
--- NOTE | 2021-02-26 10:03 | PM.PNCARD ---
Progress Note: A&P Additional Plan 70-year-old lady with longstanding nonischemic cardiomyopathy. We are resuming her medical regimen. Because of her arrhythmias and ICD am going to resume her sotalol 1st. Following that depending on her vital signs we will reintroduce Entresto. She will be in the hospital for a while recovering from her abscess operation. Reinaldo Perez MD [facility] Subjective Date/time seen: Date of service: 02/26/21 10:03 Interval history: Follow-up visit in this 70-year-old lady with: Significant nonischemic cardiomyopathy receives her care elsewhere. Patient is admitted to the hospital with septic shock with abdominal wall abscess from recent surgical procedure done here at [place]. She has had drainage of the abscess it is now packed and healing by secondary intention. Vital signs are now more stable pressors have been weaned off. I will resume the patient's of sotalol dosage today. And observe her vital signs and resume Entresto following this. Okay to move out from ICU to IMU. Exam Const: General: comfortable and no acute distress HENMT: Mouth: Yes moist mucous membranes Eyes: Sclera: sclerae normal Pupils: Equal, round and reactive pupils present Neck: Neck: supple and no JVD Resp: Effort & Inspection: normal respiratory effort Auscultation: clear to auscultation bilaterally Cardio: Rate: regular rate and tachycardic Rhythm: regular rhythm GI: GI Palp: Yes Soft to palpation Auscultation: normal bowel sounds Objective Data Vital Signs Vital Signs: Vital Signs - 24 hr 02/25/21 12:00 02/25/21 14:00 02/25/21 14:16 Temperature 36.1 C L Pulse Rate 80 76 Respiratory Rate 20 18 Blood Pressure 94/80 L 93/43 L 105/71 Pulse Oximetry 96 98 02/25/21 16:00 02/25/21 17:32 02/25/21 18:00 Temperature 36.1 C L Pulse Rate 81 78 Respiratory Rate 16 16 Blood Pressure 84/49 L 122/79 133/68 Pulse Oximetry 98 99 02/25/21 20:00 02/25/21 21:15 02/25/21 22:00 Temperature 36.4 C Pulse Rate 78 79 Respiratory Rate 18 16 Blood Pressure 113/58 L 101/57 L Pulse Oximetry 100 96 96 02/25/21 23:20 02/26/21 00:00 02/26/21 00:16 Temperature 36.8 C Pulse Rate 84 Respiratory Rate 20 Blood Pressure 109/65 102/57 L 102/57 L Pulse Oximetry 98 02/26/21 02:00 02/26/21 03:48 02/26/21 03:59 Temperature 36.7 C Pulse Rate 84 103 H Respiratory Rate 16 25 H Blood Pressure 92/62 L 94/53 L 94/53 L Pulse Oximetry 95 96 02/26/21 04:00 02/26/21 05:14 02/26/21 06:00 Temperature Pulse Rate 81 95 Respiratory Rate 20 Blood Pressure 101/91 H 102/64 Pulse Oximetry 99 Intake/Output Intake/Output: Intake & Output 02/23/21 02/24/21 02/25/21 02/26/21 23:59 23:59 23:59 23:59 Intake Total 3850 2888 600 Output Total 900 2600 1700 Balance 2950 288 -1100 Meds/Results Medications: Active Medications Generic Name Dose Route Start Last Admin Trade Name Freq PRN Reason Stop Dose Admin Dextrose 12.5 gm 02/24/21 15:48 02/24/21 21:27 Dextrose 50% 25 Gm/50 Ml Syringe IV PUSH 12.5 gm PRN PRN Administration Hypoglycemia Protocol Glucagon 1 mg 02/24/21 15:48 Glucagon For Inj 1 Mg Vial IM PRN PRN Hypoglycemia Protocol Glucose 15 gm 02/24/21 15:48 Glucose Oral Gel 15 Gm Of Glucse In 37.5 Gm Tube PO PRN PRN Hypoglycemia Protocol Dextrose 1,000 mls @ 100 mls/hr 02/24/21 15:48 Dextrose 5% 1,000 Ml IVPB PRN PRN Hypoglycemia Protocol Norepinephrine Bitartrate 8 mg in 250 mls @ 0 mls/hr 02/24/21 19:40 02/26/21 05:14 Levophed 8 Mg/D5w 250 Ml IV CONT 0 mcg/min .Q0M JEANNE 0 mls/hr Titration Protocol 0 MCG/MIN Vancomycin HCl 1,000 mg in 250 mls @ 250 mls/hr 02/25/21 09:00 02/26/21 05:01 Vancomycin 1,000 Mg/D5w 250 Ml IVPB Infused Q18H JEANNE Infusion Imipenem/Cilastatin Sodium 500 100 mls @ 200 mls/hr 02/25/21 14:00 02/26/21 06:12 mg/ Dextr
--- NOTE | 2021-02-26 10:41 | PM.IMPN ---
Progress Note: A&P Assessment and Plan (1) Postoperative infection: Code(s): T81.40XA - Infection following a procedure, unspecified, initial encounter Status: Acute Assessment and Plan: Continue imipenem status post incision and drainage Follow surgery recommendations Local care Supportive care (2) Abdominal wall abscess at site of surgical wound: Code(s): T81.49XA - Infection following a procedure, other surgical site, initial encounter Status: Acute Assessment and Plan: Status post incision and drainage (3) Hyponatremia: Code(s): E87.1 - Hypo-osmolality and hyponatremia Status: Acute Assessment and Plan: Will continue to monitor (4) Pericardial effusion: Code(s): I31.3 - Pericardial effusion (noninflammatory) Status: Acute Assessment and Plan: No signs of tamponade Continue to monitor (5) Syncope: Code(s): R55 - Syncope and collapse Status: Acute Assessment and Plan: Likely to be vasovagal in nature Continue to monitor (6) Cardiomyopathy: Code(s): I42.9 - Cardiomyopathy, unspecified Status: Acute Assessment and Plan: Continue home meds Continue to monitor Appears to be stable (7) Type 2 diabetes mellitus: Code(s): E11.9 - Type 2 diabetes mellitus without complications Status: Acute Assessment and Plan: Continue to monitor 1800 calorie diet car consistent Insulin sliding scale as needed (8) Hypertension: Code(s): I10 - Essential (primary) hypertension Status: Inactive Assessment and Plan: Restart home meds (9) Hypothyroidism: Code(s): E03.9 - Hypothyroidism, unspecified Status: Acute Assessment and Plan: Continue to monitor Will follow-up in the outpatient setting (10) Cardiac dysrhythmia: Code(s): I49.9 - Cardiac arrhythmia, unspecified Status: Chronic Assessment and Plan: Continue sotalol Continue to monitor (11) Elevated LFTs: Code(s): R79.89 - Other specified abnormal findings of blood chemistry Status: Acute Assessment and Plan: Continue to monitor Additional Plan The patient presents today for evaluation of weakness and increasing abdominal pain found to have a large postoperative abdominal wall abscess. Labs, imaging, and EKG were reviewed. She is going to the OR today per Dr. Lazo for washout of the wound. Continue broad-spectrum antibiotics including vancomycin and imipenem, pending wound culture. Her sodium is moderately decreased, most likely related to dehydration. I suspect her syncopal episode last night was due lower blood pressures thus will obtain orthostatic vital signs. She does have a history of cardiac dysrhythmia and is on sotalol thus will interrogate PM/ICD device. She will be monitored on telemetry. I have ordered an echocardiogram given the pericardial effusion on imaging today. No evidence of tamponade by exam. I will ask for records from administration specialist for review so we can get a better understanding of what exactly her underlying cardiac issues are. Her blood pressures have been running a bit soft thus will continue with cautious IV fluid rehydration. We need to avoid over-hydration given her underlying cardiomyopathy. Antihypertensives on hold given soft blood pressures. Oral hypoglycemics on hold given poor appetite; hemoglobin A1c today was 5.4%. It is unclear why her LFTs are elevated but her hepatitis-C antibody screen did come back reactive thus will send further testing. Hold statin for now and monitor. Her home medications will be reviewed and resumed as appropriate. Patient is status post incision and drainage she is doing well will restart home meds will likely start diet follow surgery recommendations. Patient tolerated clear liquids has been advanced to full liquids today patient states that she would like a different diet I defer to surgery Subjective D
[2021-02-26 12:05] LABS: Glucose Point of Care 118 (65-105)
[2021-02-26] MEDS: SOTALOL HCL 80 MG TABLET PO ×2 (12:17→20:50)
[2021-02-26] MEDS: calcitrioL 0.25 MCG CAPSULE PO (12:17)
[2021-02-26] MEDS: ROSUVASTATIN 10 MG TABLET 40 MG PO (12:18)
[2021-02-26] MEDS: VENLAFAXINE HCL 75 MG TABLET PO (12:18)
[2021-02-26] MEDS: MONTELUKAST SODIUM 10 MG TABLET PO (12:18)
[2021-02-26 16:44] LABS: Glucose Point of Care 97 (65-105)
--- NOTE | 2021-02-26 17:49 | WPDPN ---
Progress Note: A&P Assessment and Plan (1) Abdominal wall abscess at site of surgical wound: Code(s): T81.49XA - Infection following a procedure, other surgical site, initial encounter Status: Acute Assessment and Plan: Will plan to proceed to OR tomorrow (02/27) if ok with hospitalist for washout (second look) abdominal wound. Today I had a lengthy discussion of options as well as risks, benefits, alternatives with her and her . Made sure answered all of their questions. They voiced understanding. Would like proceed. Consent obtained. (2) Poor nutrition: Code(s): E63.9 - Nutritional deficiency, unspecified Status: Acute Assessment and Plan: Albumin and pre-albumin noted. She said she really had not been eating well for a week. Encourage good nutrition. Discussed at length with patient and her . (3) Type 2 diabetes mellitus: Code(s): E11.9 - Type 2 diabetes mellitus without complications Status: Acute Assessment and Plan: Per hospitalist (4) History of laparoscopic adjustable gastric banding: Code(s): Z98.84 - Bariatric surgery status Status: Acute Assessment and Plan: Maximum weight 212 lb. Lap band approximately 10 years ago. Exam Narrative: Exam Narrative: She is alert and oriented. Nondistressed. Easily able to have a conversation. Her abdomen has [address] Packing in place. I see no purulence. No fluctuance. I see no erythema. Objective Data Vital Signs Vital Signs: Vital Signs - 24 hr 02/25/21 18:00 02/25/21 20:00 02/25/21 21:15 Temperature 36.4 C Pulse Rate 78 78 Respiratory Rate 16 18 Blood Pressure 133/68 113/58 L Pulse Oximetry 99 100 96 02/25/21 22:00 02/25/21 23:20 02/26/21 00:00 Temperature 36.8 C Pulse Rate 79 84 Respiratory Rate 16 20 Blood Pressure 101/57 L 109/65 102/57 L Pulse Oximetry 96 98 02/26/21 00:16 02/26/21 02:00 02/26/21 03:48 Temperature 36.7 C Pulse Rate 84 103 H Respiratory Rate 16 25 H Blood Pressure 102/57 L 92/62 L 94/53 L Pulse Oximetry 95 96 02/26/21 03:59 02/26/21 04:00 02/26/21 05:14 Temperature Pulse Rate 81 Respiratory Rate Blood Pressure 94/53 L 101/91 H Pulse Oximetry 02/26/21 06:00 02/26/21 08:00 02/26/21 10:00 Temperature 36.5 C Pulse Rate 95 95 89 Respiratory Rate 20 25 H 23 H Blood Pressure 102/64 100/63 103/71 Pulse Oximetry 99 96 100 02/26/21 12:00 02/26/21 12:17 02/26/21 14:00 Temperature 36.9 C Pulse Rate 90 107 H 87 Respiratory Rate 23 H Blood Pressure 109/61 Pulse Oximetry 97 02/26/21 16:00 Temperature 36.6 C Pulse Rate 77 Respiratory Rate 20 Blood Pressure 119/84 Pulse Oximetry 100 Intake/Output Intake/Output: Intake & Output 02/23/21 02/24/21 02/25/21 02/26/21 23:59 23:59 23:59 23:59 Intake Total 3850 2888 1650 Output Total 900 2600 2100 Balance 2950 288 -450 Meds/Results Medications: Active Medications Generic Name Dose Route Start Last Admin Trade Name Freq PRN Reason Stop Dose Admin Calcitriol 0.25 mcg 02/26/21 09:00 02/26/21 12:17 Calcitriol 0.25 Mcg Capsule PO 0.25 mcg DAILY JEANNE Administration Dextrose 12.5 gm 02/24/21 15:48 02/24/21 21:27 Dextrose 50% 25 Gm/50 Ml Syringe IV PUSH 12.5 gm PRN PRN Administration Hypoglycemia Protocol Ergocalciferol 50,000 unit 02/28/21 09:00 Ergocalciferol 50,000 Unit Capsule PO We@0900 JEANNE Glucagon 1 mg 02/24/21 15:48 Glucagon For Inj 1 Mg Vial IM PRN PRN Hypoglycemia Protocol Glucose 15 gm 02/24/21 15:48 Glucose Oral Gel 15 Gm Of Glucse In 37.5 Gm Tube PO PRN PRN Hypoglycemia Protocol Dextrose 1,000 mls @ 100 mls/hr 02/24/21 15:48 Dextrose 5% 1,000 Ml IVPB PRN PRN Hypoglycemia Protocol Vancomycin HCl 1,000 mg in 250 mls @ 250 mls/hr 02/25/21 09:00 02/26/21 05:01 Vancomyci
[2021-02-26 20:30] LABS: Vancomycin Trough 9.9 ug/mL (10.0-20.0)
[2021-02-26 23:47] LABS: Glucose Point of Care 99 (65-105)
[2021-02-27] VITALS (25 sets, daily range): BP systolic 83–125; BP diastolic 50–67; PULSE 68–80; RESP 12–20; TEMP 35.9–37.2; O2SAT 94–100
[2021-02-27] MEDS: LEVOTHYROXINE SODIUM 50 MCG TABLET PO (05:41)
[2021-02-27] MEDS: CENTRAL LINE FLUSH 10 ML IV PUSH ×3 (05:46→21:08)
[2021-02-27 05:51] LABS: Glucose Point of Care 102 (65-105)
[2021-02-27] MEDS: SOTALOL HCL 80 MG TABLET PO ×2 (08:40→20:19)
[2021-02-27] MEDS: VENLAFAXINE HCL 75 MG TABLET PO (08:41)
--- NOTE | 2021-02-27 09:24 | PM.PNCARD ---
Progress Note: A&P Assessment and Plan (1) Cardiomyopathy: Code(s): I42.9 - Cardiomyopathy, unspecified Status: Acute Assessment and Plan: Stable from cardiovascular standpoint at this present. No significant volume overload. sotalol has been resumed. May resume low-dose sacubitril/valsartan tomorrow. Cardiology follow-up as an outpatient. Subjective Date/time seen: 02/27/21 09:24 Date of service: 02/27/2021 interval history: Patient denies chest pain or shortness of breath. She reports feeling better. She denies any abdominal pain at present. She has been off processors now. Exam Narrative: Exam Narrative: PHYSICAL EXAMINATION: GENERAL: Alert, oriented, no acute distress MENTAL STATUS: affect appropriate to mood EYES: Extraocular movements intact, no pallor EARS: External ears appear normal, hearing grossly normal NOSE: Normal and patent, no discharge MOUTH: Mucous membranes moist, tongue normal NECK: Supple, no JVD CHEST: Good respiratory effort, clear to auscultation HEART: Normal rate, regular rhythm ABDOMEN: Postsurgical, dressing in place NEUROLOGICAL: Alert, oriented, normal speech, no gross motor deficits MUSCULOSKELETAL: No major deformity, no amputation EXTREMITIES: No pedal edema, no clubbing, no cyanosis SKIN: no rash on the exposed area, no cyanosis PSYCHIATRIC: Normal mood, appropriate affect Objective Data Vital Signs Vital Signs: Vital Signs - 24 hr 02/26/21 10:00 02/26/21 12:00 02/26/21 12:17 Temperature 36.9 C Pulse Rate 89 90 107 H Respiratory Rate 23 H 23 H Blood Pressure 103/71 109/61 Pulse Oximetry 100 97 02/26/21 14:00 02/26/21 16:00 02/26/21 18:00 Temperature 36.6 C Pulse Rate 87 77 85 Respiratory Rate 20 Blood Pressure 119/84 Pulse Oximetry 100 02/26/21 19:40 02/26/21 20:00 02/26/21 20:50 Temperature 36.0 C L Pulse Rate 83 90 81 Respiratory Rate 16 Blood Pressure 118/72 Pulse Oximetry 100 02/26/21 21:47 02/26/21 23:57 02/27/21 00:00 Temperature 36.1 C L Pulse Rate 80 87 78 Respiratory Rate 18 Blood Pressure 102/67 Pulse Oximetry 99 02/27/21 01:44 02/27/21 04:00 02/27/21 05:26 Temperature 35.9 C L Pulse Rate 76 68 73 Respiratory Rate 18 Blood Pressure 97/55 L Pulse Oximetry 96 02/27/21 08:00 02/27/21 08:40 Temperature 36.4 C Pulse Rate 69 78 Respiratory Rate 12 Blood Pressure 119/52 L Pulse Oximetry 100 Intake/Output Intake/Output: Intake & Output 02/24/21 02/25/21 02/26/21 02/27/21 23:59 23:59 23:59 23:59 Intake Total 3850 2888 2220 100 Output Total 900 2600 2100 1000 Balance 2950 288 120 -900 Meds/Results Medications: Active Medications Generic Name Dose Route Start Last Admin Trade Name Freq PRN Reason Stop Dose Admin Calcitriol 0.25 mcg 02/26/21 09:00 02/26/21 12:17 Calcitriol 0.25 Mcg Capsule PO 0.25 mcg DAILY JEANNE Administration Dextrose 12.5 gm 02/24/21 15:48 02/24/21 21:27 Dextrose 50% 25 Gm/50 Ml Syringe IV PUSH 12.5 gm PRN PRN Administration Hypoglycemia Protocol Ergocalciferol 50,000 unit 02/28/21 09:00 Ergocalciferol 50,000 Unit Capsule PO We@0900 JEANNE Glucagon 1 mg 02/24/21 15:48 Glucagon For Inj 1 Mg Vial IM PRN PRN Hypoglycemia Protocol Glucose 15 gm 02/24/21 15:48 Glucose Oral Gel 15 Gm Of Glucse In 37.5 Gm Tube PO PRN PRN Hypoglycemia Protocol Dextrose 1,000 mls @ 100 mls/hr 02/24/21 15:48 Dextrose 5% 1,000 Ml IVPB PRN PRN Hypoglycemia Protocol Vancomycin HCl 1,000 mg in 250 mls @ 250 mls/hr 02/25/21 09:00 02/26/21 21:50 Vancomycin 1,000 Mg/D5w 250 Ml IVPB Infused Q18H JEANNE Infusion Imipenem/Cilastatin Sodium 500 100 mls @ 200 mls/hr 02/25/21 14:00 02/27/21 06:10 mg/ Dextrose IVPB Infused Q8HR JEANNE Infusion Insulin Aspart 2 - 5 units 02/24/21 17:00 02/27/21 08:38 Insulin Aspart (*Bkc) 100 U
--- NOTE | 2021-02-27 10:15 | WPDHPUPDATE1 ---
History and Physical Update Update Date/Time: 02/27/21 10:15 History and Physical has been reviewed, including an updated exam of the patient. There are NO changes in the patient's condition. Risks, benefits, and alternatives have been discussed and questions answered. Patient agrees to proceed with procedure.
--- NOTE | 2021-02-27 10:22 | WPDANESEPPF ---
Anes - Initial Pre Proc Eval Procedure: Operation Date: 02/24/21 17:30 Proposed Procedures p Panniculectomy, Excision Abdominal Apron - Brett Lazo MD Operation Date: 02/27/21 11:30 Proposed Procedures p Abdominal Wound Washout - Joshua Pereira MD Date/Time: 02/27/21 10:22 Surgeon: Wesley Mott MD Pre Op Diagnosis: postoperative wound abscess Patient Data Age: 70 Gender: F Height: 5 ft 3 in Weight: 72.2 kg Last Vital Signs Temp 36.4 C 02/27/21 08:00 Pulse 78 02/27/21 08:40 Resp 12 02/27/21 08:00 BP 119/52 L 02/27/21 08:00 Pulse Ox 100 02/27/21 08:00 Allergies Allergy/AdvReac Type Severity Reaction Status Date / Time codeine AdvReac Severe Nausea and Verified 02/24/21 18:38 Vomiting meperidine [From Demerol] AdvReac Severe Nausea and Verified 02/24/21 18:38 Vomiting Home Medications Medication Instructions Recorded Confirmed Type glipizide 5 mg tablet 5 mg PO DAILY 11/08/20 02/25/21 History venlafaxine 75 mg tablet 75 mg PO DAILY 11/08/20 02/25/21 History Entresto 1 tablet PO BID 01/17/21 02/25/21 History Lokelma 5 g PO DAILY 01/17/21 02/25/21 History Ozempic 0.5 mg SUBCUT WEEKLY 01/17/21 02/25/21 History calcitriol 0.25 mcg PO DAILY 01/17/21 02/25/21 History levothyroxine 50 mcg PO DAILY 01/17/21 02/25/21 History magnesium oxide 400 mg PO BID 01/17/21 02/25/21 History montelukast 10 mg PO DAILY 01/17/21 02/25/21 History rosuvastatin 40 mg PO DAILY 01/17/21 02/25/21 History sotalol 80 mg PO BID 01/17/21 02/25/21 History ergocalciferol (vitamin D2) 50,000 unit PO WEEKLY 02/26/21 02/26/21 History [Vitamin D2] Laboratory Tests 02/26/21 02/26/21 02/26/21 11:54 16:38 19:53 POC Capillary Glucose 118 mg/dl H mg/dl 97 mg/dl mg/dl (65-105) (65-105) Vancomycin Trough 9.9 ug/mL L ug/mL (10.0-20.0) 02/26/21 02/27/21 23:45 05:45 POC Capillary Glucose 99 mg/dl mg/dl 102 mg/dl mg/dl (65-105) (65-105) Vancomycin Trough Patient hx anesthesia problems: none Family hx anesthesia problems: none PMFSH Past Medical History Medical History Cardiac dysrhythmia Patient on sotalol. Unsure if atrial or ventricular dysrhythmia. Cardiomyopathy Status post PM/ICD insertion. Previous EF of 35% (per patient report). Patient of Dr. Boggs. Cerebrovascular accident Chronic lacunar infarct near anterior limb of right internal capsule noted on brain CT dated 02/24/2021. This was unknown to the patient. Depression Diverticulitis Hyperlipidemia Hypertension Hypothyroidism Type 2 diabetes mellitus Hemoglobin A1c was 5.4% on 02/24/2021. Surgical History Surgical History Cardiac defibrillator in place History of foot surgery History of hysterectomy History of laparoscopic adjustable gastric banding History of left knee surgery History of partial colectomy Partial left colectomy secondary to diverticulitis. History of right breast biopsy Benign pathology. History of thumb surgery Status post panniculectomy Family History Family History Other Diabetes mellitus Heart disease Hypertension Venous thromboembolism Social History Social History Social History: Surrogate decision maker: Jonathan Pantoja, . Code: Full code. Smoking status: Never smoker Alcohol intake: former Substance use: never Substance use type: does not use Additional living arrangements comments: Resides in [place] with her . They have 2 children, one from a drug overdose. 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 Spiritual care concerns: No Anes - Eval Final PreProcedure Day of Procedure 02/27/21 10:22 Patient weight: overweight
--- NOTE | 2021-02-27 10:25 | SUR.PREOP ---
1025- Notified Dr. Olmos patient's 20 gauge right wrist IV leaking and discontinued. Clarified with Dr. Olmos if patient's triple lumen femoral central line can be used for procedure. Per Dr. Olmos OK to use triple lumen femoral central line.
[2021-02-27] MEDS: LACTATED RINGERS 1,000 ML 30 ML IV CONT (10:30)
--- NOTE | 2021-02-27 10:37 | PC.NURSE ---
0925- To OR via stretcher accompanied by OR staff-
[2021-02-27] MEDS: LIDO 1%/EPINEPHRINE 1:100,000 50 ML VIAL 30 ML INFILTRATE (11:22)
--- NOTE | 2021-02-27 11:38 | PM.PROC ---
Procedure Note - Detailed Date of procedure: 02/27/21 Pre-op diagnosis: postoperative wound abscess Post-op diagnosis: same Procedure performed: 1. Washout abdominal wound 2. Closure 10 cm abdominal incision Description of procedure: Preoperatively risks, benefits, alternatives were discussed with her and her . Reviewed our plans for the procedure. Answered all of their questions. They voiced understanding. They would like proceed. She was taken to the operating room. Placed supine on the operating room table. Anesthesia was provided by anesthesiology, removed the packing, and prepped and draped in a standard sterile fashion. Surgical time-out was taken. 1% lidocaine and 0.25% Marcaine with epinephrine was used anesthetize locally. Explore the wound and there was no evidence of infection. She had clean healthy tissue. I irrigated with 3 L of bacitracin containing saline solution and verified hemostasis. I closed the right drain site with 3-0 Monocryl followed by running subcuticular 4-0 Monocryl and glue. I placed a 19 Deo drain out the left drain site and this was sutured into place with 3-0 nylon. I closed the central incision using 2-0 Vicryl followed by 3-0 Monocryl and running subcuticular 4-0 Monocryl and tissue glue. She was taken to the PACU without difficulty. All instrument sponge counts were correct at the end of the case. Anesthesia: MAC Surgeon: Joshua Pereira MD Estimated blood loss (mL): 5 Drains: Yes (Nineteen Deo) Packing: No Pathology: none sent Complications: No immediate complications Condition: stable Disposition: PACU Findings: There was no signs of infection. Clean healthy tissue noted.
[2021-02-27 12:40] LABS: Glucose Point of Care 112 (65-105)
[2021-02-27] MEDS: ROSUVASTATIN 10 MG TABLET 40 MG PO (14:29)
[2021-02-27] MEDS: calcitrioL 0.25 MCG CAPSULE PO (14:29)
[2021-02-27] MEDS: MONTELUKAST SODIUM 10 MG TABLET PO (14:30)
[2021-02-27] MEDS: traMADol HCL (*CRX) 50 MG TABLET PO (15:45)
--- NOTE | 2021-02-27 16:13 | PM.IMPN ---
Progress Note: A&P Assessment and Plan (1) Postoperative infection: Code(s): T81.40XA - Infection following a procedure, unspecified, initial encounter Status: Acute Assessment and Plan: Continue imipenem and vancomycin. Status post incision and drainage Follow surgery recommendations (2) Abdominal wall abscess at site of surgical wound: Code(s): T81.49XA - Infection following a procedure, other surgical site, initial encounter Status: Acute Assessment and Plan: Status post incision and drainage (3) Hyponatremia: Code(s): E87.1 - Hypo-osmolality and hyponatremia Status: Acute Assessment and Plan: Will continue to monitor (4) Pericardial effusion: Code(s): I31.3 - Pericardial effusion (noninflammatory) Status: Acute Assessment and Plan: No signs of tamponade Continue to monitor (5) Syncope: Code(s): R55 - Syncope and collapse Status: Acute Assessment and Plan: Likely to be vasovagal in nature Resolved (6) Cardiomyopathy: Code(s): I42.9 - Cardiomyopathy, unspecified Status: Acute Assessment and Plan: Continue home meds (7) Type 2 diabetes mellitus: Code(s): E11.9 - Type 2 diabetes mellitus without complications Status: Acute Assessment and Plan: Insulin sliding scale as needed (8) Hypertension: Code(s): I10 - Essential (primary) hypertension Status: Inactive Assessment and Plan: Restart home meds (9) Hypothyroidism: Code(s): E03.9 - Hypothyroidism, unspecified Status: Acute Assessment and Plan: Continue to monitor Will follow-up in the outpatient setting (10) Cardiac dysrhythmia: Code(s): I49.9 - Cardiac arrhythmia, unspecified Status: Chronic Assessment and Plan: Continue sotalol Continue to monitor (11) Elevated LFTs: Code(s): R79.89 - Other specified abnormal findings of blood chemistry Status: Acute Assessment and Plan: Continue to monitor Additional Plan Interval history : The patient presents today for evaluation of weakness and increasing abdominal pain found to have a large postoperative abdominal wall abscess. Labs, imaging, and EKG were reviewed. She is going to the OR today per Dr. Lazo for washout of the wound. Continue broad-spectrum antibiotics including vancomycin and imipenem, pending wound culture. Her sodium is moderately decreased, most likely related to dehydration. I suspect her syncopal episode last night was due lower blood pressures thus will obtain orthostatic vital signs. She does have a history of cardiac dysrhythmia and is on sotalol thus will interrogate PM/ICD device. She will be monitored on telemetry. I have ordered an echocardiogram given the pericardial effusion on imaging today. No evidence of tamponade by exam. 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 Subjective Date/time seen: 02/27/21 16:13 Interval history: Interval history :Follow-up visit in this 70-year-old lady with significant nonischemic cardiomyopathy receives her care elsewhere. Patient is admitted to the hospital with septic shock with abdominal wall abscess from recent surgical procedure done here at [facility]. She has had drainage of the abscess it is now packed and healing by secondary intention. Pt is sp washout abdominal wound today doing well resting presently. Review of Systems Review of Systems: All systems reviewed & are unremarkable except as noted in HPI and below Exam Narrative: Exam Narrative: General: Moderately ill appearing female HEENT: PERRL, EOMI. Neck: Supple. No JVD. Respiratory: Lungs are clear to auscultation bilaterally. Cardiovascular: Regular rate and rhythm with S1-S2. ICD in left anterior chest. Gastrointestinal: Fresh abdominal wound with glue
[2021-02-27 17:18] LABS: Glucose Point of Care 110 (65-105)
--- NOTE | 2021-02-27 19:07 | PC.NURSE ---
1250- Returned to room post surgery-VSS- monitor paced rhythm- denies pain at this time- lower abdominal incision intact - well approximated
[2021-02-27 19:55] LABS: Glucose Point of Care 121 (65-105)
[2021-02-28] VITALS (16 sets, daily range): BP systolic 100–125; BP diastolic 48–66; PULSE 66–85; RESP 16–20; TEMP 36.1–36.7; O2SAT 97–100
[2021-02-28] MEDS: CENTRAL LINE FLUSH 10 ML IV PUSH ×2 (05:26→13:17)
[2021-02-28] MEDS: LEVOTHYROXINE SODIUM 50 MCG TABLET PO (05:33)
--- NOTE | 2021-02-28 07:05 | WPDCDIQUERY2 ---
CDI Query Clarification Request - Patient is admitted to the hospital with septic shock with abdominal wall abscess from recent surgical procedure done here at [facility] documented in additional plan but sepsis/septic shock not on problem list. Please clarify, if septic shock was ruled in, add to problem list. If ruled out or unknown, please document as such. <Razia Benson RN - Last Filed: 02/28/21 07:08> SEPTIC SHOCK RULED IN <Moni Duran MD - Last Filed: 03/09/21 08:04>
--- NOTE | 2021-02-28 07:39 | WPDPN ---
Progress Note: A&P Assessment and Plan (1) Abdominal wall abscess at site of surgical wound: Code(s): T81.49XA - Infection following a procedure, other surgical site, initial encounter Status: Acute Assessment and Plan: Doing well after drainage of abdominal abscess and subsequent second-look/washout/closure. From my perspective may discharge home. Follow up in a week. Keep us updated with drain outputs. Today we had a lengthy discussion about the care. What monitor for. This was a lengthy open-ended conversation making sure she was well informed. I will see her back. (2) Poor nutrition: Code(s): E63.9 - Nutritional deficiency, unspecified Status: Acute Assessment and Plan: She understands the importance of good nutrition. (3) Type 2 diabetes mellitus: Code(s): E11.9 - Type 2 diabetes mellitus without complications Status: Acute Assessment and Plan: Per hospitalist (4) History of laparoscopic adjustable gastric banding: Code(s): Z98.84 - Bariatric surgery status Status: Acute Assessment and Plan: Maximum weight 212 lb. Lap band approximately 10 years ago. Time Spent With Patient Time with patient: 15 - 25 minutes Exam Narrative: Exam Narrative: Abdomen incision is intact. I see no signs of infection. No hematoma. No seroma. Drain in place and becoming serosanguineous. Objective Data Vital Signs Vital Signs: Vital Signs - 24 hr 02/27/21 08:00 02/27/21 08:40 02/27/21 09:45 Temperature 36.4 C 36.9 C Pulse Rate 69 78 74 Respiratory Rate 12 18 Blood Pressure 119/52 L 89/66 L Pulse Oximetry 100 100 02/27/21 11:52 02/27/21 12:05 02/27/21 12:20 Temperature 36.4 C L Pulse Rate 71 69 69 Respiratory Rate 20 18 18 Blood Pressure 111/64 96/56 L 90/52 L Pulse Oximetry 95 95 94 02/27/21 12:35 02/27/21 12:43 02/27/21 13:00 Temperature 36.1 C L Pulse Rate 70 71 80 Respiratory Rate 20 20 20 Blood Pressure 83/56 L 101/59 L 101/64 Pulse Oximetry 94 94 97 02/27/21 13:30 02/27/21 14:00 02/27/21 14:30 Temperature 37.1 C 36.9 C Pulse Rate 71 76 74 Respiratory Rate 12 12 Blood Pressure 99/50 L 110/62 Pulse Oximetry 97 96 02/27/21 15:30 02/27/21 16:00 02/27/21 16:30 Temperature 37.1 C 37.2 C 37.2 C Pulse Rate 72 71 71 Respiratory Rate 12 12 12 Blood Pressure 100/55 L 102/58 L 102/58 L Pulse Oximetry 98 99 99 02/27/21 18:00 02/27/21 19:17 02/27/21 20:00 Temperature 36.6 C Pulse Rate 70 75 69 Respiratory Rate 12 Blood Pressure 111/64 Pulse Oximetry 95 02/27/21 20:19 02/27/21 22:00 02/27/21 23:00 Temperature 36.7 C Pulse Rate 75 72 80 Respiratory Rate 18 Blood Pressure 125/67 Pulse Oximetry 97 02/28/21 00:00 02/28/21 01:38 02/28/21 04:00 Temperature 36.7 C Pulse Rate 73 73 70 Respiratory Rate 20 Blood Pressure 100/52 L Pulse Oximetry 99 02/28/21 05:48 Temperature Pulse Rate 72 Respiratory Rate Blood Pressure Pulse Oximetry Intake/Output Intake/Output: Intake & Output 02/25/21 02/26/21 02/27/21 02/28/21 23:59 23:59 23:59 23:59 Intake Total 2888 2220 1390 400 Output Total 2600 2100 1720 905 Balance [phone] -[phone] -[phone] Meds/Results Medications: Active Medications Generic Name Dose Route Start Last Admin Trade Name Freq PRN Reason Stop Dose Admin Calcitriol 0.25 mcg 02/26/21 09:00 02/27/21 14:29 Calcitriol 0.25 Mcg Capsule PO 0.25 mcg DAILY JEANNE Administration Dextrose 12.5 gm 02/24/21 15:48 02/24/21 21:27 Dextrose 50% 25 Gm/50 Ml Syringe IV PUSH 12.5 gm PRN PRN Administration Hypoglycemia Protocol Ergocalciferol 50,000 unit 02/28/21 09:00 Ergocalciferol 50,000 Unit Capsule PO We@0900 JEANNE Glucagon 1 mg 02/24/21 15:48 Glucagon For Inj 1 Mg Vial IM PRN PRN Hypoglycemia Protocol Glucose 15 gm 02/24/21 15:48 Glucose Oral Gel 15 Gm Of Glucse In 37.5 Gm Tube PO
[2021-02-28 08:17] LABS: Glucose Point of Care 87 (65-105)
[2021-02-28] MEDS: SOTALOL HCL 80 MG TABLET PO ×2 (08:45→20:35)
[2021-02-28] MEDS: ROSUVASTATIN 10 MG TABLET 40 MG PO (08:45)
[2021-02-28] MEDS: MONTELUKAST SODIUM 10 MG TABLET PO (08:45)
[2021-02-28] MEDS: calcitrioL 0.25 MCG CAPSULE PO (08:46)
[2021-02-28] MEDS: ERGOCALCIFEROL 50,000 UNIT CAPSULE 50000 UNITS PO (08:46)
[2021-02-28] MEDS: VENLAFAXINE HCL 75 MG TABLET PO (08:46)
[2021-02-28 09:09] LABS: Hematocrit 27.5 % (37.0-47.0); Mean Corpuscular HGB Conc 32.7 g/dl (32-36); Mean Corpuscular Hemoglobin 29.9 pg (26-34); Mean Corpuscular Volume 91.4 fl (80-100); Mean Platelet Volume 10.3 fl (7.4-10.4); Platelet Count Result 246 k/mm3 (150-375); Red Blood Count 3.01 M/mm3 (4.2-5.4); Red Cell Distribution Width 12.9 % (11.5-14.5)
[2021-02-28 09:22] LABS: Anion Gap 1 mmol/L (8-16); Blood Urea Nitrogen 12 mg/dL (7-17); Calcium 9.2 mg/dL (8.4-10.2); Carbon Dioxide 32 mmol/L (22-30); Chloride 102 mmol/L (98-107); Estimated CRCL calculation 50 ml/min; Estimated Glomerular Filt Rate > 60; Glucose 154 mg/dL (65-105); Potassium 3.6 mmol/L (3.4-5.0); Sodium 135 mmol/L (137-145)
[2021-02-28 10:03] LABS: Vancomycin Trough 12.4 ug/mL (10.0-20.0)
[2021-02-28 12:03] LABS: Glucose Point of Care 99 (65-105)
[2021-02-28 13:49] LABS: Hepatitis C RNA, Quant PCR <15 IU/mL
--- NOTE | 2021-02-28 15:46 | PM.IMPN ---
Progress Note: A&P Assessment and Plan (1) History of laparoscopic adjustable gastric banding: Code(s): Z98.84 - Bariatric surgery status Status: Acute (2) Postoperative infection: Code(s): T81.40XA - Infection following a procedure, unspecified, initial encounter Status: Resolved Assessment and Plan: Status post incision and drainage Follow surgery recommendations (3) Abdominal wall abscess at site of surgical wound: Code(s): T81.49XA - Infection following a procedure, other surgical site, initial encounter Status: Acute Assessment and Plan: Status post incision and drainage (4) Hyponatremia: Code(s): E87.1 - Hypo-osmolality and hyponatremia Status: Acute Assessment and Plan: Will continue to monitor (5) Pericardial effusion: Code(s): I31.3 - Pericardial effusion (noninflammatory) Status: Acute Assessment and Plan: No signs of tamponade Continue to monitor (6) Syncope: Code(s): R55 - Syncope and collapse Status: Acute Assessment and Plan: Likely to be vasovagal in nature Resolved (7) Cardiomyopathy: Code(s): I42.9 - Cardiomyopathy, unspecified Status: Acute Assessment and Plan: Continue home meds (8) Type 2 diabetes mellitus: Code(s): E11.9 - Type 2 diabetes mellitus without complications Status: Acute Assessment and Plan: Insulin sliding scale as needed (9) Hypertension: Code(s): I10 - Essential (primary) hypertension Status: Inactive Assessment and Plan: Restart home meds (10) Hypothyroidism: Code(s): E03.9 - Hypothyroidism, unspecified Status: Acute Assessment and Plan: Continue to monitor Will follow-up in the outpatient setting (11) Cardiac dysrhythmia: Code(s): I49.9 - Cardiac arrhythmia, unspecified Status: Chronic Assessment and Plan: Continue sotalol Continue to monitor (12) Elevated LFTs: Code(s): R79.89 - Other specified abnormal findings of blood chemistry Status: Acute Assessment and Plan: Continue to monitor Additional Plan Subjective Date/time seen: 02/28/21 15:46 Interval history: Interval history :Follow-up visit in this 70-year-old lady with significant nonischemic cardiomyopathy receives her care elsewhere. Patient is admitted to the hospital with septic shock with abdominal wall abscess from recent surgical procedure done here at [place]. She has had drainage of the abscess it is now packed and healing by secondary intention. Pt is sp washout abdominal wound, doing well resting presently. Review of Systems Review of Systems: All systems reviewed & are unremarkable except as noted in HPI and below Exam Narrative: Exam Narrative: General: Moderately ill appearing female HEENT: PERRL, EOMI. Neck: Supple. No JVD. Respiratory: Lungs are clear to auscultation bilaterally. Cardiovascular: Regular rate and rhythm with S1-S2. ICD in left anterior chest. Gastrointestinal: Fresh abdominal wound with glue Skin: Cool and dry. Generalized pallor. Capillary refill less than 3 seconds. Extremities: No cyanosis, clubbing, or edema. Radial and pedal pulses intact. Neurological: Alert And oriented. Cranial nerves 2-12 are grossly intact. No gross focal deficits to casual conversation. Psychiatric: Appropriate mood and affect. Objective Data Vital Signs Vital Signs: Vital Signs - 24 hr 02/27/21 16:00 02/27/21 16:30 02/27/21 18:00 Temperature 37.2 C 37.2 C Pulse Rate 71 71 70 Respiratory Rate 12 12 Blood Pressure 102/58 L 102/58 L Pulse Oximetry 99 99 02/27/21 19:17 02/27/21 20:00 02/27/21 20:19 Temperature 36.6 C Pulse Rate 75 69 75 Respiratory Rate 12 Blood Pressure 111/64 Pulse Oximetry 95 02/27/21 22:00 02/27/21 23:00 02/28/21 00:00 Temperature 36.7 C Pulse Rate 72 80 73 Respiratory Rate 18
[2021-02-28 16:53] LABS: Glucose Point of Care 118 (65-105)
--- NOTE | 2021-02-28 17:57 | PM.PNCARD ---
Progress Note: A&P Assessment and Plan (1) Cardiomyopathy: Code(s): I42.9 - Cardiomyopathy, unspecified Status: Acute Assessment and Plan: Stable from cardiovascular standpoint at this present. No significant volume overload. sotalol has been resumed, no arrhythmias. Will resume Entresto today. Patient is not sure of her dose so I will start with the low-dose 24/26 mg b.i.d.. Cardiology follow-up as an outpatient with her usual parent trainer, Dr. Alejandra. Okay for discharge tomorrow from our point of view. Subjective Date/time seen: 02/28/21 17:57 Interval history: Follow-up visit in this 70-year-old lady with: Significant nonischemic cardiomyopathy receives her care elsewhere. Patient is admitted to the hospital with septic shock with abdominal wall abscess from recent surgical procedure done here at [facility]. She has had drainage of the abscess it is now packed and healing by secondary intention. 02/26/2021: Vital signs are now more stable pressors have been weaned off. I will resume the patient's of sotalol dosage today. And observe her vital signs and resume Entresto following this. Okay to move out from ICU to IMU. 02/27/2021: Patient is now off of vasopressors. Had wash out of her abdominal wound. 02/28/2021: Feeling well today, hopes to go home tomorrow. Getting out of bed with assistance. No shortness of breath or chest pain, no edema. Systolic blood pressure runs 110-125 mmHg. Review of Systems Constitutional: Constitutional: Denies weakness Eyes: Eyes: Reports no additional eye complaints ENT: Denies epistaxis Cardiovascular: Cardiovascular: Denies chest pain, Denies pedal edema and Denies lightheadedness Respiratory: Respiratory: Denies dyspnea and Denies dyspnea on exertion Gastrointestinal: Gastrointestinal: Denies abdominal pain Genitourinary: Genitourinary: Denies hematuria Musculoskeletal: Musculoskeletal: Reports no additional musculoskeletal complaints Integumentary/Breasts: Skin/Breast: Reports wounds (Surgical wound) Neurologic: Denies confusion Psychiatric: Psychiatric: Denies behavioral changes Exam Narrative: Exam Narrative: Just finished eating, at bedside Const: General: comfortable and no acute distress HENMT: General nose exam: no epistaxis Eyes: EOM: EOMs intact bilaterally Neck: Neck: supple Resp: Effort & Inspection: normal respiratory effort Auscultation: clear to auscultation bilaterally Cardio: Rate: regular rate Rhythm: regular rhythm Heart sounds: no murmurs GI: GI Palp: Yes Soft to palpation Skin: General skin exam: normal color Neuro: Cognition (Neuro): normal cognition Speech: normal speech Extrem: General: no edema and no pedal edema Psych: Mental Status: mental status grossly normal Objective Data Vital Signs Vital Signs: Vital Signs - 24 hr 02/27/21 18:00 02/27/21 19:17 02/27/21 20:00 Temperature 97.8 F Pulse Rate 70 75 69 Respiratory Rate 12 Blood Pressure 111/64 Pulse Oximetry 95 02/27/21 20:19 02/27/21 22:00 02/27/21 23:00 Temperature 98.0 F Pulse Rate 75 72 80 Respiratory Rate 18 Blood Pressure 125/67 Pulse Oximetry 97 02/28/21 00:00 02/28/21 01:38 02/28/21 04:00 Temperature 98.0 F Pulse Rate 73 73 70 Respiratory Rate 20 Blood Pressure 100/52 L Pulse Oximetry 99 02/28/21 05:48 02/28/21 08:00 02/28/21 08:45 Temperature 97.8 F Pulse Rate 72 72 76 Respiratory Rate 20 Blood Pressure 125/66 Pulse Oximetry 100 02/28/21 10:00 02/28/21 12:00 02/28/21 14:00 Temperature 97 F L Pulse Rate 69 71 74 Respiratory Rate 16 Blood Pressure 114/62 Pulse Oximetry 100 02/28/21 16:00 Temperature 97 F L Pulse Rate 77 Respiratory Rate 16 Blood Pressure 108/48 L Pulse Oximetry 98 Intake/Output Intake/Output: Intake & Output 02/25/21 02/26/21 02/27/21 02/28/21 23:59 23:59 23:59 23:59 Intake Total 2888 2220 1390 2310 Output Total
[2021-02-28 19:32] LABS: Glucose Point of Care 128 (65-105)
[2021-02-28] MEDS: SACUBITRIL/VALSARTAN 24-26 MG TABLET 1 TAB PO (20:35)
[2021-03-01] VITALS (12 sets, daily range): BP systolic 104–121; BP diastolic 53–72; PULSE 69–83; RESP 14–16; TEMP 36.4–36.8; O2SAT 98–100
[2021-03-01 05:20] LABS: Hematocrit 27.7 % (37.0-47.0); Hemoglobin 8.8 g/dL (12.0-15.0); Mean Corpuscular HGB Conc 31.8 g/dl (32-36); Mean Corpuscular Hemoglobin 29.5 pg (26-34); Mean Platelet Volume 10.4 fl (7.4-10.4); Platelet Count Result 270 k/mm3 (150-375); Red Blood Count 2.98 M/mm3 (4.2-5.4); Red Cell Distribution Width 12.8 % (11.5-14.5); White Blood Count 8.8 K/mm3 (4.5-10.0)
[2021-03-01] MEDS: LEVOTHYROXINE SODIUM 50 MCG TABLET PO (05:40)
[2021-03-01 05:43] LABS: Anion Gap 1 mmol/L (8-16); Blood Urea Nitrogen 12 mg/dL (7-17); Calcium 9.3 mg/dL (8.4-10.2); Carbon Dioxide 32 mmol/L (22-30); Chloride 103 mmol/L (98-107); Estimated CRCL calculation 62 ml/min; Estimated Glomerular Filt Rate > 60; Glucose 132 mg/dL (65-105); Potassium 3.3 mmol/L (3.4-5.0); Sodium 136 mmol/L (137-145)
[2021-03-01 07:43] LABS: Glucose Point of Care 97 (65-105)
[2021-03-01] MEDS: SACUBITRIL/VALSARTAN 24-26 MG TABLET 1 TAB PO (08:32)
[2021-03-01] MEDS: ROSUVASTATIN 10 MG TABLET 40 MG PO (08:32)
[2021-03-01] MEDS: MONTELUKAST SODIUM 10 MG TABLET PO (08:32)
[2021-03-01] MEDS: VENLAFAXINE HCL 75 MG TABLET PO (08:32)
[2021-03-01] MEDS: calcitrioL 0.25 MCG CAPSULE PO (08:32)
[2021-03-01] MEDS: SOTALOL HCL 80 MG TABLET PO (08:32)
[2021-03-01] MEDS: ONDANSETRON INJ 4 MG/2 ML VIAL IV PUSH (09:45)
[2021-03-01 11:27] LABS: Glucose Point of Care 134 (65-105)
[2021-03-01] MEDS: polyethylene glycoL 3350 17 GM POWD.PACK PO (12:35)
--- NOTE | 2021-03-01 13:40 | PM.DS ---
DS: Admitting Diagnosis Admitting Diagnosis Admitting Diagnosis: Post-op abdominal pain. DS: Discharge Diagnosis Discharge Diagnosis (1) Postoperative infection: Code(s): T81.40XA - Infection following a procedure, unspecified, initial encounter Status: Resolved Assessment and Plan: Status post incision and drainage Follow surgery recommendations pt to be discharged still has one drain in place, femoral line removed prior to dischrage. (2) Abdominal wall abscess at site of surgical wound: Code(s): T81.49XA - Infection following a procedure, other surgical site, initial encounter Status: Acute Assessment and Plan: Status post incision and drainage, follow up [facility] surgery team (3) Hyponatremia: Code(s): E87.1 - Hypo-osmolality and hyponatremia Status: Resolved Assessment and Plan: sodium is 136 (4) Pericardial effusion: Code(s): I31.3 - Pericardial effusion (noninflammatory) Status: Acute Assessment and Plan: No signs of tamponade Pt seen [facility] is as below. 1. Complete two-dimensional, color flow and Doppler transthoracic echocardiogram is performed. 2. Left ventricular chamber size, wall thickness, systolic function are normal with no regional wall motion abnormalities with an estimated ejection fraction of 60-65 %. Grade 1 diastolic dysfunction is present. 3. No pulmonary hypertension, estimated pulmonary arterial systolic pressure is 34 mmHg. 4. There is mild tricuspid valve regurgitation. 5. Small circumferential pericardial effusion is present, 0.7 cm thick anteriorly and 1.4 cm posteriorly with no tamponade physiology. 6. Possible pacemaker lead in right ventricle. 7. Normal sinus rhythm. (5) Syncope: Code(s): R55 - Syncope and collapse Status: Acute Assessment and Plan: Likely to be vasovagal in nature Resolved (6) Cardiomyopathy: Code(s): I42.9 - Cardiomyopathy, unspecified Status: Acute Assessment and Plan: Continue home meds (7) Type 2 diabetes mellitus: Code(s): E11.9 - Type 2 diabetes mellitus without complications Status: Acute Assessment and Plan: Insulin sliding scale as needed (8) Hypertension: Code(s): I10 - Essential (primary) hypertension Status: Inactive Assessment and Plan: Restart home meds (9) Hypothyroidism: Code(s): E03.9 - Hypothyroidism, unspecified Status: Acute Assessment and Plan: Continue to monitor Will follow-up in the outpatient setting (10) Cardiac dysrhythmia: Code(s): I49.9 - Cardiac arrhythmia, unspecified Status: Chronic Assessment and Plan: Continue sotalol Continue to monitor (11) Elevated LFTs: Code(s): R79.89 - Other specified abnormal findings of blood chemistry Status: Acute Assessment and Plan: Continue to monitor DS: Summary Hospital Course Hospital Course: Interval history: Interval history :Follow-up visit in this 70-year-old lady with significant nonischemic cardiomyopathy receives her care elsewhere. Patient is admitted to the hospital with septic shock with abdominal wall abscess from recent surgical procedure done here at [facility]. She has had drainage of the abscess it is now packed and healing by secondary intention. Pt is sp washout abdominal wound today doing well resting presently. Continue to recover at home. Time Spent with Patient Time attestation: Total time spent providing and/or coordinating discharge services:40 minutes on day of discharge Exam Narrative: Exam Narrative: General: Moderately ill appearing female HEENT: PERRL, EOMI. Neck: Supple. No JVD. Respiratory: Lungs are clear to auscultation bilaterally. Cardiovascular: Regular rate and rhythm with S1-S2. ICD in left anterior chest. Gastrointestinal: Fresh abdominal wound with glue, drain in si
== END 2021-03-01 16:43 | disposition home or self-care (01) | DRG 862 ==
LOC: ANHED 09:59 → ANH3MED 15:09 → ANHICU 02-26 11:37 → ANHIMU 02-27 11:50 → ANH3MED 03-02 14:58 → ANHICU 03-02 14:58 → ANHIMU 03-02 14:58
PROVIDERS: Internal Medicine; Physician Assistant; Plastic Surgery; Surgery Plastic and Reconstructive Surgery; Admitting Provider Family Medicine; Emergency Provider General Practice; PCP Internal Medicine; Visit Provider Family Medicine
PROC: 0JB80ZZ Excision of Abdomen Subcutaneous Tissue and Fascia, Open Approach (ICD-10-PCS; CPT 15830; principal; 2021-02-24 17:30)
DX: T81.41XA Infection following a procedure, superficial incisional surgical site, initial encounter (principal); T81.12XA Postprocedural septic shock, initial encounter; A41.9 Sepsis, unspecified organism; L02.211 Cutaneous abscess of abdominal wall; E87.1 Hypo-osmolality and hyponatremia; I31.3 Pericardial effusion (noninflammatory); I42.9 Cardiomyopathy, unspecified; T81.44XA Sepsis following a procedure, initial encounter; I10 Essential (primary) hypertension; R55 Syncope and collapse; D72.829 Elevated white blood cell count, unspecified; E78.5 Hyperlipidemia, unspecified; E86.0 Dehydration; E03.9 Hypothyroidism, unspecified; E63.9 Nutritional deficiency, unspecified; E11.9 Type 2 diabetes mellitus without complications; I49.9 Cardiac arrhythmia, unspecified; Z90.710 Acquired absence of both cervix and uterus; Z95.810 Presence of automatic (implantable) cardiac defibrillator; Z86.73 Personal history of transient ischemic attack (TIA), and cerebral infarction without residual deficits; Z98.84 Bariatric surgery status
CPT/HCPCS: 36415; 70450; 71046; 71275; 74177; 76705; 80048; 80053; 80074; 80202; 81001; 82550; 82948; 83036; 83605; 83690; 83735; 84100; 84134; 84443; 85014; 85018; 85025; 85027; 85610; 85730; 87040; 87070; 87075; 87077; 87086; 87205; 87522; 93005; 93306; 96361; 96365; 96375; 97161; 97165; 99285; A9270; C1751; J0743; J2370; J2405; J2543; J2704; J3010; J3370; J7030; J7042; J7060; J7120; Q9967

== ENCOUNTER 2022-01-09 09:23 | Inpatient (IN) | payer MEDICARE, SELFPAY ==
[2022-01-09] VITALS (7 sets, daily range): BP systolic 102–149; BP diastolic 48–99; PULSE 80–89; RESP 18–21; TEMP 36.2–36.6; O2SAT 93–100; BMI 27.3
--- NOTE | ~2022-01-09 | XR_ITS ---
EXAMINATION: XR chest PICC line DATE: 01/15/2022 09:02 INDICATION: PICC line placement TECHNIQUE: 3 frontal views of the chest were obtained. COMPARISON: Chest radiograph dated 02/24/2021 FINDINGS: Interval placement of a right upper extremity peripherally inserted central venous catheter (PICC) wh ich on the first image extend cephalad into the right internal jugular vein. The PICC line is reposit ioned on the subsequent image, looped in the caudal right internal jugular vein and again repositione d on the final image with small band and the catheter extending minimally into the right internal jug ular vein before extending caudal with distal tip in the caudal right brachiocephalic vein near the t ransition to the superior vena cava. A few bilateral small calcified pulmonary nodules consistent with old granulomatous disease. No other airspace opacities, pulmonary edema, pleural effusion or pneumothorax. The cardiomediastinal silhoue tte is normal. Three lead pacemaker/AICD seen with leads projecting over the expected locations of th e right atrial appendage, apex of the right ventricle and overlying the left ventricle likely having traversed the coronary sinus. There is an additional likely prior disconnected right ventricular lead . Nasogastric tube extends into the stomach with distal tip, beyond the inferior margin of the field- of-view. Lap band in expected position. IMPRESSION: 1. Right PICC line tip at the caudal-most right brachiocephalic vein with small and extending into th e caudal most right internal jugular vein. 2. No acute cardiopulmonary disease. Reviewed, dictated and finalized at location A. IMPRESSION: 1. Right PICC line tip at the caudal-most right brachiocephalic vein with small and extending into the caudal most right internal jugular vein. 2. No acute cardiopulmonary disease.
--- NOTE | ~2022-01-09 | XR_ITS ---
EXAMINATION: XR abdomen obstructive series DATE: 01/14/2022 08:56 INDICATION: Small bowel obstruction TECHNIQUE: Upright and supine views of the abdomen were obtained. COMPARISON: 01/13/2022 FINDINGS: There are persistently dilated loops of small bowel in the abdomen with interval decrease i n number. No free intraperitoneal gas is identified. A surgical anastomosis is noted in the rectum. T he nasogastric tube is in the stomach. Changes of lap band surgery are noted. There is a paucity of g as in large bowel. IMPRESSION: 1. Small bowel obstruction with possible slight improvement. Reviewed, dictated and finalized at location B.
--- NOTE | ~2022-01-09 | XR_ITS ---
XR abdomen NG/feed tube insert INDICATION: Evaluate NG tube position. TECHNIQUE: Limited KUB perform for evaluating NG tube . COMPARISON: 01/14/2022 FINDINGS: NG tube tip in the stomach. Visualized bowel gas pattern is unremarkable.No significant sm all bowel dilation. There is a reservoir for the laparoscopic adjustable gastric band overlying the r ight mid abdomen. Moderate lumbar spondylosis with levoscoliosis. There are surgical changes in the p sharron. IMPRESSION: 1: NG tube tip in the stomach. Reviewed, dictated and finalized at location A.
--- NOTE | ~2022-01-09 | XR_ITS ---
EXAMINATION: XR sm bowel follow through WS DATE: 01/10/2022 13:17 INDICATION: Small bowel obstruction. TECHNIQUE: Oral contrast was administered, and a time course of radiographs of the abdomen was obtain ed. Fluoroscopy of the small bowel was not performed. Fluoroscopy exposure time was 0 minutes. The to dago number of images was 6. COMPARISON: CT abdomen and pelvis 01/09/2022 FINDINGS: The nasogastric tube tip is in the stomach. There is a lap band in expected position. There are multi ple dilated loops of small bowel. At 4 hours, oral contrast has not progressed beyond the dilated sma ll bowel. The distal small bowel is decompressed. The colon is decompressed. IMPRESSION: 1. Small bowel obstruction. Reviewed, dictated and finalized at location A. IMPRESSION: 1. Small bowel obstruction.
--- NOTE | ~2022-01-09 | XR_ITS ---
EXAMINATION: XR abdomen NG/feed tube rechec DATE: 01/09/2022 12:27 INDICATION: Nasogastric tube placement. TECHNIQUE: An upright view of the abdomen was obtained. COMPARISON: Abdomen radiograph at 11:16 AM FINDINGS: The lower abdomen is excluded. There are dilated loops of small bowel. The nasogastric tube tip is in the stomach. There is a lap band in expected position. There is a left chest pacer/defibri llator with leads in right atrium, right ventricle, and coronary sinus. There is an additional lead i n right ventricle. IMPRESSION: 1. Nasogastric tube tip in the stomach. 2. Small bowel obstruction. Reviewed, dictated and finalized at location A.
--- NOTE | ~2022-01-09 | XR_ITS ---
XR abdomen/kub 1V 01/12/2022 05:32 Indication: Small bowel obstruction Procedure: KUB Comparison: Comparison to multiple prior studies sequentially, with oldest reviewed study dated 01/09. Findings: There are dilated loops of small bowel throughout the abdomen, consistent with obstruction. NG tube in the stomach. There are calcified granulomas in the lung bases. Pacemaker leads are reiden tified. Impression: 1: Small bowel obstruction. Reviewed, dictated and finalized at location A. Impression: 1: Small bowel obstruction.
--- NOTE | ~2022-01-09 | XR_ITS ---
EXAMINATION: XR abdomen obstructive series DATE: 01/13/2022 13:55 INDICATION: Small bowel obstruction TECHNIQUE: Supine and upright views of the abdomen. FINDINGS: Comparison to multiple prior studies sequentially, with oldest reviewed study dated 022. The visualized lung parenchyma is normal.. There are dilated small bowel loops with multiple air-flui d levels consistent with obstruction. NG tube in the stomach. There is a laparoscopic adjustable noé charisma band. There are surgical changes in the pelvis.. There is no free air. IMPRESSION: 1. Small bowel obstruction. Reviewed, dictated and finalized at location A. IMPRESSION: 1. Small bowel obstruction.
--- NOTE | ~2022-01-09 | XR_ITS ---
EXAMINATION: XR sm bowel follow through WS EXAM DATE: 01/14/2022 14:52 INDICATION: SBO - ABD PAIN . TECHNIQUE: Tube Balancer radiograph was acquired. Omnipaque/water soluble solution administered for small raudel wel exam performed. Reportedly patient became nauseated after a few hours. Pulsed dose reduction fluo roscopy was used with fluoroscopic time of 0.0 minutes. A total of 6 KUB images obtained for the exa m. Comparison is made to prior examination from 01/10/2022. FINDINGS: Feeding tube is in position. Gastric banding device. Multiple loops of severely distended s mall bowel with progressive amount of distention up to the 2 hour projection at which point exam was reportedly terminated and patient vomited. An additional image was taken at approximately 8 hours following start of exam. This demonstrates con trast evacuated from stomach. Persistent contrast within severely dilated small bowel without evidenc e of progression to the colon, consistent with small bowel obstruction. There was similar appearance to the prior study from 01/10/2022. IMPRESSION: Persistent small bowel obstruction. Reviewed, dictated and finalized at location G.
--- NOTE | ~2022-01-09 | XR_ITS ---
EXAMINATION: XR abdomen/kub 1V EXAM DATE: 01/20/2022 12:01 INDICATION: nausea/vomiting . TECHNIQUE: Frontal projection(s) of the abdomen for interpretation. Comparison is made to prior exami nation from 01/17/2022. FINDINGS: Several loops of moderately distended air-filled jejunum, significantly improved compared t o the obstructed small bowel seen on small bowel examination 01/15/2024. There was no air filled dilat ed small bowel on exam from 01/17. There is moderate amount of gas within the colon. Gastric banding d evice. Mild to moderate lumbar levoscoliosis. Moderate to severe lower lumbar spondylosis. IMPRESSION: Redevelopment of couple moderately distended jejunal loops, could be ileus, partial or re current obstruction. Reviewed, dictated and finalized at location G. IMPRESSION: Redevelopment of couple moderately distended jejunal loops, could b e ileus, partial or recurrent obstruction.
--- NOTE | ~2022-01-09 | XR_ITS ---
EXAMINATION: XR abdomen/kub 1V DATE: 01/11/2022 05:32 INDICATION: Small bowel obstruction TECHNIQUE: A supine view of the abdomen was obtained. COMPARISON: 01/10/2022 FINDINGS: Persistent mildly dilated gas-filled loops of bowel throughout the abdomen consistent with small glenda l obstruction. The prior contrast material is no longer present and has likely either passed or been aspirated by the nasogastric tube with the distal tip in proximal side port in the body of the now de compressed stomach. Lap band in expected position. Anastomotic suture line in the deep pelvis. Severa l calcified nodules in the visualized lower lungs consistent with old granulomatous disease. Heart si ze is normal. Three lead pacemaker/AICD seen with leads projecting over the expected locations of the right atrial appendage, apex of the right ventricle and overlying the left ventricle likely having t raversed the coronary sinus. There is fourth presumably disconnected left ventricular lead. IMPRESSION: 1. Persistent small bowel obstruction. Reviewed, dictated and finalized at location A.
--- NOTE | ~2022-01-09 | XR_ITS ---
EXAMINATION: XR abdomen NG/feed tube insert DATE: 01/09/2022 11:25 INDICATION: Nasogastric tube placement. TECHNIQUE: An upright view of the abdomen was obtained. COMPARISON: CT abdomen and pelvis 01/09/2022 FINDINGS: The lower abdomen is excluded. There are multiple dilated loops of small bowel. There is a lap band in expected position. The nasogastric tube tip is in the proximal stomach with proximal side port in the distal esophagus. There is a left chest pacer/defibrillator with leads in right atrium, right ventricle, and coronary sinus. There is an additional lead in right ventricle. Calcified pulmon douglas nodules are consistent with old granulomatous disease. IMPRESSION: 1. Nasogastric tube tip in the proximal stomach with proximal side port in the distal esophagus. Adva ncement 6 cm is recommended. 2. Small bowel obstruction. Reviewed, dictated and finalized at location A. IMPRESSION: 1. Nasogastric tube tip in the proximal stomach with proximal side port in the distal esophagus. Advancement 6 cm is recommended. 2. Small bowel obstruction.
--- NOTE | ~2022-01-09 | XR_ITS ---
XR abdomen NG/feed tube insert INDICATION: Evaluate NG tube position. TECHNIQUE: Limited KUB perform for evaluating NG tube . COMPARISON: Comparison to multiple prior studies sequentially, with oldest reviewed study dated 01/10. FINDINGS: NG tube tip in the duodenum. Visualized bowel gas pattern is unremarkable.There is a lapar oscopic adjustable gastric band. There are stable pacemaker leads. Lung bases unremarkable with excep tion of calcified granulomas. Mildly dilated small bowel in the upper abdomen, consistent with obstru ction. IMPRESSION: 1: NG tube tip in the duodenum. Reviewed, dictated and finalized at location A.
--- NOTE | ~2022-01-09 | XR_ITS ---
EXAMINATION: XR abdomen/kub 1V DATE: 01/10/2022 05:26 INDICATION: Small bowel obstruction TECHNIQUE: A supine view of the abdomen on 2 radiographs was obtained. COMPARISON: 01/09/2022 FINDINGS: Is a gastric tube tip in proximal side port in the body of the stomach. There are change of prior adj ustable lap banding procedure which is in expected position. Anastomotic suture line in the pelvis. S everal mildly dilated gas-filled loops of small bowel consistent with persistent small bowel obstruct ion. Small calcified nodule at the left lung base consistent with old granulomatous disease. Excreted contrast the bladder from earlier contrast-enhanced CT. Lower lumbar levocurvature with severe spond ylosis at the lumbosacral junction. IMPRESSION: 1. Persistent small bowel obstruction. Reviewed, dictated and finalized at location A.
--- NOTE | ~2022-01-09 | CT_ITS ---
EXAMINATION: CT abdomen pelvis w con DATE: 01/09/2022 10:27 INDICATION: Nausea. Generalized abdominal pain. TECHNIQUE: Computed tomography (CT) of the abdomen and pelvis was performed with 100 mL Omnipaque 350 intravenous contrast. Automated exposure control and iterative reconstruction technique were employe d. The dose-length product was 730.44 mGy-cm. COMPARISON: CT abdomen and pelvis 02/24/2021 FINDINGS: The visualized portions of the lung bases demonstrate calcified pulmonary nodules, consiste nt with old granulomatous disease. No pleural effusion. The heart size is normal. There is a small pe ricardial effusion with interval improvement. There are pacer wires in right atrium, right ventricle, and coronary sinus. There is an additional lead in right ventricle. The liver, gallbladder, spleen, pancreas, and adrenal glands are normal. There is cortical thinning of the kidneys. There is an anast omosis in the rectosigmoid. There is diverticulosis of the colon without evidence of diverticulitis. The appendix is not visualized. There is a lap band around the proximal stomach in expected position. There are multiple dilated loops of small bowel with transition point at the midline. There is wall thickening of decompressed small bowel just distal to the transition point. There are no pathological ly enlarged lymph nodes. There is no free intraperitoneal fluid. There is lumbar levoscoliosis and se stephanie spondylosis. IMPRESSION: 1. Small bowel obstruction with transition point at the midline. Wall thickening of decompressed smal l bowel distal to the transition point may be inflammation or ischemia/infarct. Reviewed, dictated and finalized at location A. IMPRESSION: 1. Small bowel obstruction with transition point at the midline. Wall thickenin g of decompressed small bowel distal to the transition point may be inflammatio n or ischemia/infarct.
--- NOTE | 2022-01-09 09:44 | ED.ABDPAIN ---
HPI - Abdominal Pain General Chief Complaint: Abdominal Pain Stated Complaint: flu like sx History of Present Illness HPI narrative: 71-year-old female presents the emergency room with acute onset of lower abdominal pain and nausea vomiting. Patient states abdominal pain started yesterday. Patient also reports constipation. Patient is status post abdominal plasty, with partial colectomy. Patient states that today she is constipated, and is not experiencing any flatulence. Related Data Home Medications Medication Instructions Recorded Confirmed glipizide 5 mg tablet 5 mg PO DAILY 11/08/20 02/25/21 venlafaxine 75 mg tablet 75 mg PO DAILY 11/08/20 02/25/21 Entresto 1 tablet PO BID 01/17/21 02/25/21 Lokelma 5 g PO DAILY 01/17/21 02/25/21 Ozempic 0.5 mg SUBCUT WEEKLY 01/17/21 02/25/21 calcitriol 0.25 mcg PO DAILY 01/17/21 02/25/21 magnesium oxide 400 mg PO BID 01/17/21 02/25/21 montelukast 10 mg PO DAILY 01/17/21 02/25/21 rosuvastatin 40 mg PO DAILY 01/17/21 02/25/21 ergocalciferol (vitamin D2) 50,000 unit PO WEEKLY 02/26/21 02/26/21 [Vitamin D2] Allergies Allergy/AdvReac Type Severity Reaction Status Date / Time codeine AdvReac Severe Nausea and Verified 03/12/21 08:57 Vomiting meperidine [From Demerol] AdvReac Severe Nausea and Verified 03/12/21 08:57 Vomiting Review of Systems Review of Systems: CONSTITUTIONAL: Denies fever, chills, or sweats. EYES: Denies visual changes, redness, or discharge. ENT: Denies rhinorrhea, congestion, sore throat, or otalgia. CARDIOVASCULAR: Denies chest pain, palpitations, or edema. RESPIRATORY: Denies cough or dyspnea. GASTROINTESTINAL: Reports lower abdominal pain, nausea, constipation GENITOURINARY: Denies dysuria or hematuria. SKIN: Denies rash or itching. MUSCULOSKELETAL: Denies back pain, joint pain, or myalgia. NEUROLOGIC: Denies headache, numbness, dizziness, or weakness. PSYCHIATRIC: Denies anxiety or depression. [facility] Past Medical History Medical History Cardiac dysrhythmia Patient on sotalol. Unsure if atrial or ventricular dysrhythmia. Cardiomyopathy Status post PM/ICD insertion. Previous EF of 35% (per patient report). Patient of Dr. Boggs. Cerebrovascular accident Chronic lacunar infarct near anterior limb of right internal capsule noted on brain CT dated 02/24/2021. This was unknown to the patient. Depression Diverticulitis Hyperlipidemia Hypertension Hypothyroidism Type 2 diabetes mellitus Hemoglobin A1c was 5.4% on 02/24/2021. Surgical History Surgical History Cardiac defibrillator in place History of foot surgery History of hysterectomy History of laparoscopic adjustable gastric banding History of left knee surgery History of partial colectomy Partial left colectomy secondary to diverticulitis. History of right breast biopsy Benign pathology. History of thumb surgery Status post panniculectomy Family History Family History Other Diabetes mellitus Heart disease Hypertension Venous thromboembolism Social History Social History Social History: Surrogate decision maker: Jonathan Pantoja, . Code: Full code. Smoking status: Never smoker Alcohol intake: former Substance use: never Substance use type: does not use Additional living arrangements comments: Resides in [place] with her . They have 2 children, one from a drug overdose. 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 Spiritual care concerns: No Exam Narrative: GENERAL: Well-appearing, well-nourished, and in no acute distress. HEAD: Normocephalic, atraumatic. EYES: PERRLA and EOMI. ENT: Nares clear, no rhinorrhea or epistaxis. Mucous membranes moist. Oropharynx without tonsilla
[2022-01-09] MEDS: ONDANSETRON INJ 4 MG/2 ML VIAL IV PUSH ×2 (09:51→15:10)
[2022-01-09] MEDS: SODIUM CHLORIDE 0.9% IV 1,000 ML 999 ML IV CONT (09:52)
[2022-01-09] MEDS: PANTOPRAZOLE SODIUM IV 40 MG VIAL IV PUSH (09:52)
[2022-01-09 09:58] LABS: Basophils Absolute Auto 0.1 K/mm3 (0.0-0.1); Basophils Percent Auto 0.7 % (0.2-1.2); Eosinophils Absolute Auto 0.1 K/mm3 (0-0.3); Eosinophils Percent Auto 0.9 % (0-4.4); Hemoglobin 13.9 g/dL (12.0-15.0); Immature Granulocyte Absolute 0.03 K/mm3 (0.00-0.031); Immature Granulocyte Percent A 0.3 % (0-0.5); Immature Platelet Fraction Pct 9.6 % (0.9-11.2); Lymphocytes Absolute Auto 0.88 K/mm3 (0.9-3.2); Lymphocytes Percent Auto 9.8 % (18.3-44.2); Mean Corpuscular HGB Conc 33.1 g/dl (32-36); Mean Corpuscular Volume 93.8 fl (80-100); Mean Platelet Volume 11.4 fl (7.4-10.4); Monocytes Absolute Auto 0.9 K/mm3 (0.1-0.6); Monocytes Percent Auto 10.5 % (2.6-8.5); Neutrophils Percent Auto 77.8 % (45.5-73.1); Platelet Count Result 128 k/mm3 (150-375); Red Blood Count 4.48 M/mm3 (4.2-5.4); Red Cell Distribution Width 13.3 % (11.5-14.5)
[2022-01-09 10:08] LABS: Alanine Aminotransferase 10 U/L (4-35); Albumin Level 3.9 g/dL (3.5-5.1); Alkaline Phosphatase 64 U/L (38-126); Anion Gap 6 mmol/L (8-16); Aspartate Amino Transferase 24 U/L (14-36); Bilirubin,Total 0.8 mg/dL (0.2-1.3); Blood Urea Nitrogen 11 mg/dL (7-17); Calcium 9.7 mg/dL (8.4-10.2); Carbon Dioxide 29 mmol/L (22-30); Chloride 102 mmol/L (98-107); Estimated CRCL calculation 45 ml/min; Estimated Glomerular Filt Rate > 60; Glucose 135 mg/dL (65-110); Lipase 151 U/L (23-300); Potassium 3.8 mmol/L (3.4-5.0); Sodium 137 mmol/L (137-145)
--- NOTE | 2022-01-09 11:38 | PC.NURSE ---
Advanced NG tube to 60
--- NOTE | 2022-01-09 13:15 | PM.CNGS ---
Assessment and Plan Assessment and plan (1) Small bowel obstruction: Code(s): K56.609 - Unspecified intestinal obstruction, unspecified as to partial versus complete obstruction Status: Acute Assessment and Plan: CT scan reviewed and discussed with the patient and her in detail. She has evidence of a small bowel obstruction with a transition point in the midline and wall thickening of the decompressed distal small bowel, could be inflammation or ischemia. WBC normal and she is hemodynamically stable. Will order a lactic acid. She is not complaining of any abdominal pain at this time and her abdominal exam is fairly benign. No peritoneal signs. Would favor the small bowel wall thickening to be more likely inflammation rather than evidence of ischemia given her examination and labs. She was given IV Zosyn in the ER. Would recommend NG tube decompression, bowel rest, IV fluids, and analgesics as needed for now. Will get a KUB tomorrow morning and if she has not made much progress, then we will get a Gastrografin small bowel follow through to further assess the obstruction. I discussed with the patient that if she does not improve with conservative management, then she would need surgical exploration. She has multiple co-morbidities that would increase her risks of surgery and we will initially try conservative management. Will continue to closely monitor and follow along with you. Thank you for allowing us to see the patient in consultation. (2) Cardiomyopathy: Code(s): I42.9 - Cardiomyopathy, unspecified Status: Acute (3) Type 2 diabetes mellitus: Code(s): E11.9 - Type 2 diabetes mellitus without complications Status: Acute (4) Hypertension: Code(s): I10 - Essential (primary) hypertension Status: Acute Additional Plan I have discussed the patient's case and plan of care with Dr. Pierre. History of Present Illness Consult details Consult date: 01/09/22 Reason for consult: other (Small bowel obstruction) Requesting physician: Dung Donnelly APRN Narrative: This is a 71-year-old female who presented to the ER with complaints of lower abdominal pain and dry heaves. She reports that over the past few days she has been having diarrhea. She reports a history of diarrhea that comes and goes for years. She reports that yesterday she developed mild lower abdominal pain and nausea throughout the day. She was reportedly dry heaving repeatedly without emesis. She has not been passing gas yesterday or today. Due to the pain and nausea, she came into the ER. CT scan of the abdomen and pelvis showed small bowel obstruction with transition point at the midline. Wall thickening of decompressed small bowel distal to the transition point, could be inflammation or ischemia. Labs showed a normal white blood cell count and otherwise unremarkable labs. No lactic acid checked at the time of my exam. Vital signs are stable. Our service was consulted by the ED provider for the small bowel obstruction. When I initially went to see the patient, she was extremely restless and agitated in the bed. She appeared extremely uncomfortable and was unable to initially answer my questions because of her discomfort. I asked majority of questions from her at the bedside with her permission. She reportedly was feeling flushed and hot, which she felt was like a hot flash and stated she felt like she was going to pass out. She was also dry heaving and already had the NG tube placed with about 400 cc output in the canister. She states that she has been having these hot flash episodes at home that are associated with a rise in her blood pressure. This happens a few times a week and she is being worked up as an outpatient by her Animal Rides Manager in [place] for this. She was scheduled for a head CT on Friday for further evaluation per the . It was difficult to even examine the patient because of how restless and uncomfortable she was. S
[2022-01-09 14:22] LABS: Lactic Acid Reflex 1.6 mmol/L (0.7-2.1)
[2022-01-09] MEDS: SODIUM CHLORIDE 0.9% IV 1,000 ML 100 ML IV CONT (15:09)
--- NOTE | 2022-01-09 16:21 | ADMGEN ---
This patient, Katheryn Pantoja, was admitted to Medical Room 340-01. Patient/family oriented to hospital policies and general routines including ID bracelet, bed and alarms, visiting hours, pain management, procedures, bathroom and other care routines, personal items, smoking policy, room service/diet, and visiting hours. Information on how to activate the Rapid Response Team has been discussed. Patient/Family are encouraged to report perceived risks to care and to ask questions if they do not understand what they are told or what they should do.
--- NOTE | 2022-01-09 16:45 | PM.IMHP ---
H&P: HPI History of Present Illness Date/Time: Patient requires inpatient monitoring with expected length of stay to exceed 2 midnights for management of care. 01/09/22 16:45 Chief Complaint: Abdominal pain Narrative: Ms. Pantoja is a 71-year-old female who presented emergency room with complaints of abdominal pain and nausea that started yesterday. Patient is in quite a bit of pain at this point and is not wanting to speak very long periods of time so it is somewhat difficult to get a history from her. Patient states that she began having nausea with dry heaves as well as lower abdominal pain yesterday. Patient states she has not had a bowel movement last few days, but this is not abnormal for her. Patient states that she was passing gas this morning. Patient states she has been having right lower quadrant pain more so the left lower quadrant pain. Upon evaluation in emergency room patient underwent CT scan that did show small bowel obstruction and General surgery was consulted. It was recommended an NG to be placed and patient be on bowel rest as well as hydrated with IV fluids. Patient denies any chest pain, shortness breast, lightheadedness, dizziness, syncopal, or near syncopal episodes. Patient denies any dysuria, hematuria, frequency, or urgency. Patient does have a known history of a cardiomyopathy with most recent echo Doppler available at this time is from a 02/28/2021 which showed a left ventricular chamber size, wall thickness, systolic function all within normal limits with no regional wall motion abnormality with an estimated ejection fraction of 60-65%. Grade 1 diastolic dysfunction was noted to be present. Patient's cardiomyopathy has been known to be a nonischemic cardiomyopathy and she follows with [facility]. Patient does have a known Bi V ICD. Patient states up until today she has been taking her medications without any difficulty. Review of Systems Review of Systems: A 12 point review of systems was completed patient all pertinent positive and negative per HPI the remainder are unremarkable. [facility] Past Medical History Medical History (Updated 01/09/22 @ 14:15 by CLARENCE Garrison) Cardiac dysrhythmia Patient on sotalol. Hx ventricular dysrhythmia s/p ICD. Cardiomyopathy Nonischemic cardiomyopathy Status post PM/ICD insertion. Previous EF of 35% (per patient report). Patient of Dr. Boggs. Cerebrovascular accident Chronic lacunar infarct near anterior limb of right internal capsule noted on brain CT dated 02/24/2021. This was unknown to the patient. Depression Diverticulitis Hyperlipidemia Hypertension Hypothyroidism Type 2 diabetes mellitus Hemoglobin A1c was 5.4% on 02/24/2021. Surgical History Surgical History Cardiac defibrillator in place History of foot surgery History of hysterectomy Open oophorectomy (unsure of side) and incidental appendectomy as a teenager, and later eventually had a vaginal hysterectomy History of laparoscopic adjustable gastric banding History of left knee surgery History of partial colectomy Partial left colectomy secondary to diverticulitis in 2019. History of right breast biopsy Benign pathology. History of thumb surgery Status post panniculectomy 12/2020 Family History Family History Other Diabetes mellitus Heart disease Hypertension Venous thromboembolism Social History Social History Social History: Surrogate decision maker: Jonathan Pantoja, . Code: Full code. Smoking status: Never smoker Alcohol intake: never Substance use: never Substance use type: does not use Additional living arrangements comments: Resides in [place] with her . They have 2 children, one from a drug overdose. Additional occupation/education comme
[2022-01-09 18:03] LABS: Glucose Point of Care 133 mg/dl (65-105)
[2022-01-10] MEDS: SODIUM CHLORIDE 0.9% IV 1,000 ML 100 ML IV CONT ×2 (01:49→13:02)
[2022-01-10] MEDS: ONDANSETRON INJ 4 MG/2 ML VIAL IV PUSH ×3 (04:12→13:00)
[2022-01-10 06:07] VITALS: BP 112/54; PULSE 81; RESP 16; TEMP 36.6; O2SAT 97
[2022-01-10 06:09] LABS: Basophils Percent Auto 0.3 % (0.2-1.2); Eosinophils Percent Auto 0.2 % (0-4.4); Hematocrit 38.4 % (37.0-47.0); Hemoglobin 12.8 g/dL (12.0-15.0); Immature Granulocyte Absolute 0.06 K/mm3 (0.00-0.031); Immature Granulocyte Percent A 0.4 % (0-0.5); Lymphocytes Absolute Auto 1.22 K/mm3 (0.9-3.2); Lymphocytes Percent Auto 8.6 % (18.3-44.2); Mean Corpuscular HGB Conc 33.3 g/dl (32-36); Mean Corpuscular Hemoglobin 31.1 pg (26-34); Mean Corpuscular Volume 93.2 fl (80-100); Mean Platelet Volume 12.2 fl (7.4-10.4); Monocytes Percent Auto 14.2 % (2.6-8.5); Neutrophils Absolute Auto 10.8 K/mm3 (1.3-6.7); Neutrophils Percent Auto 76.3 % (45.5-73.1); Platelet Count Result 128 k/mm3 (150-375); Red Blood Count 4.12 M/mm3 (4.2-5.4); Red Cell Distribution Width 13.8 % (11.5-14.5); White Blood Count 14.1 K/mm3 (4.5-10.0)
[2022-01-10 06:14] LABS: Glucose Point of Care 98 mg/dl (65-105)
[2022-01-10 06:20] LABS: Anion Gap 6 mmol/L (8-16); Blood Urea Nitrogen 11 mg/dL (7-17); Calcium 8.7 mg/dL (8.4-10.2); Carbon Dioxide 26 mmol/L (22-30); Chloride 108 mmol/L (98-107); Estimated CRCL calculation 40 ml/min; Estimated Glomerular Filt Rate 55; Glucose 102 mg/dL (65-110); Lactic Acid Reflex 1.2 mmol/L (0.7-2.1); Potassium 3.8 mmol/L (3.4-5.0); Sodium 140 mmol/L (137-145)
--- NOTE | 2022-01-10 09:28 | PM.IMPN ---
Progress Note: A&P Assessment and Plan (1) Small bowel obstruction: Code(s): K56.609 - Unspecified intestinal obstruction, unspecified as to partial versus complete obstruction Status: Acute Assessment and Plan: Monitor I&Os, vital signs, neuro status and patient is a fall risk Monitor serum electrolytes and CBC General surgery consulted to further evaluate small bowel obstruction if the patient needs surgical intervention or fails to improve with NG decompression. Place NG tube for non operative management, NG tube to low intermittent suction Gentle IV fluid resuscitation given the patient's NPO status P.r.n. Anti emetics, avoid reglan (2) Type 2 diabetes mellitus: Code(s): E11.9 - Type 2 diabetes mellitus without complications Status: Acute Assessment and Plan: Insulin Lispro sliding scale, Accu-checks qAc and HS and Hold oral hypoglycemics while the patient remains NPO perform Accu-Cheks q.6 hours (3) Cardiomyopathy: Code(s): I42.9 - Cardiomyopathy, unspecified Status: Acute Assessment and Plan: Patient does have a history of a nonischemic cardiomyopathy status post Bi V ICD placement. Patient's most recent echo does show a normal systolic function with grade 1 diastolic dysfunction. Will resume patient's cardiac medications once patient is able to have oral intake. Patient does not show any signs or symptoms of heart failure at this time will have intake and output monitor closely as well as daily weights. (4) Hypertension: Code(s): I10 - Essential (primary) hypertension Status: Acute Assessment and Plan: Patient's blood pressure has been stable at this time. p.r.n. hydralazine available if systolic blood pressure greater than 180 (5) Leukocytosis: Code(s): D72.829 - Elevated white blood cell count, unspecified Status: Acute Assessment and Plan: Patient has developed a leukocytosis. Patient remains afebrile. Adding antibiotics empirically due to CT findings of inflammation vs ischemic bowel. Administer Zosyn 3.375 mg q.6 hours (6) Thrombocytopenia: Code(s): D69.6 - Thrombocytopenia, unspecified Status: Acute Assessment and Plan: Patient's platelet count 128, monitor for signs and symptoms of blood loss or bleeding. Monitor CBC Subjective Date/time seen: 01/10/22 09:29 Patient is alert and oriented x4 this morning. NG tube in place and hooked up to low intermittent suction. Patient denies any acute abdominal pain, nausea, vomiting. She reports that she is thirsty and her throat is mildly dry. General surgery is on board and will follow the patient for the small-bowel obstruction. Patient was noted to have an elevated WBC and a decreased platelet count upon admission. Patient reports that her diabetes is well controlled. No acute concerns reported by director of staff development during the night. Review of Systems Review of Systems: All systems reviewed & are unremarkable except as noted in HPI and below Exam Narrative: Constitutional: Patient is well-nourished in no acute distress. Patient is alert and oriented x3 HEENT: Moist mucous membranes. No scleral icterus. No lymphadenopathy. Patient has NG tube in place to her right nares. Neck: No carotid bruits noted no JVD noted Lungs: Lung sounds are clear to auscultation bilaterally. No accessory muscle use. No rhonchi, rales, or wheezes noted. Cardiovascular: Apical pulse is regular rate and rhythm. S1-S2 noted, no S3 or S4 noted. No gallops, murmurs, or rubs noted. Abdomen: Soft, round, and nontender. No palpable masses. Extremities: No edema. Nontender. Skin: No rashes or lesions. Warm and dry. Skin is intact. Neurological: No focal neurological deficits. Cranial nerves II-XII grossly intact. Psychiatric: Cooperative, appropriate mood, and affect Objective Data Vital Signs Vital Signs: Vital Signs - 24 hr 01/09/22 11:00 01/09/22 12:16 01/09/22
--- NOTE | 2022-01-10 09:34 | PM.PNGS ---
Progress Note: A&P Assessment and Plan (1) Small bowel obstruction: Code(s): K56.609 - Unspecified intestinal obstruction, unspecified as to partial versus complete obstruction Status: Acute Assessment and Plan: Patient feeling better today. KUB still suggests small bowel obstruction. WBC up to 14K. Lactic acid normal. Will get Gastrografin SBFT today to further evaluate. (2) Cardiomyopathy: Code(s): I42.9 - Cardiomyopathy, unspecified Status: Acute Assessment and Plan: Will request records from her Advanced Manufacturing Consultant at [place]. Could give the patient the option of transferring to [place] where her Advanced Manufacturing Consultant is located vs having our Cardiology group seeing her pre-operatively if she ends up needing surgical exploration. (3) Type 2 diabetes mellitus: Code(s): E11.9 - Type 2 diabetes mellitus without complications Status: Acute (4) Hypertension: Code(s): I10 - Essential (primary) hypertension Status: Acute Additional Plan I have discussed the patient's case and plan of care with Dr. Pierre. Subjective Subjective Date/Time Seen: 01/10/22 08:34 Patient reports: no flatus, no bowel movement and afebrile Interval history: Patient seen and examined. She reports her abdominal pain is slightly better today. She reports her nausea has resolved. She reports noticing flatus maybe once last night, but no significant flatus today. No BM. No documented output from NG tube overnight. Patient says today that her Advanced Manufacturing Consultant at [place] told her she should try to avoid any surgeries if at all possible due to the condition of her heart. She states she was instructed to go to [place] [facility] if she ever has any issues b/c her Advanced Manufacturing Consultant is there, but she came here because she didn't' think she was going to have a big problem . Review of Systems Review of Systems: All systems reviewed & are unremarkable except as noted in HPI and below Exam Const: General: comfortable, no acute distress and alert GI: Inspection: normal to inspection, non-distended and scar (large horizontal lower abd, RLQ from lap band port, few trocar scars) GI Palp: Yes Soft to palpation, Yes Tenderness to palpation present (GI) (mild TTP in upper abd, mostly tender across lower abd), Yes Guarding due to palpation present (GI) (lower abd), Yes No hepatosplenomegaly present and No Hernia present Auscultation: normal bowel sounds Other: Palpable port in RLQ for lap band Neuro: General: moves all extremities and no focal motor deficits Extrem: General: normal to inspection Psych: Insight: Good insight present (Psych) Judgement: Good judgement present (Psych) Objective Data Vital Signs Vital Signs: Vital Signs - 24 hr 01/09/22 11:00 01/09/22 12:16 01/09/22 13:01 Temperature Pulse Rate 80 89 89 Respiratory Rate 18 20 21 H Blood Pressure 149/99 H 110/90 102/48 L Pulse Oximetry 98 98 01/09/22 14:00 01/09/22 19:58 01/09/22 20:35 Temperature 97.9 F 97.9 F Pulse Rate 83 83 Respiratory Rate 18 18 Blood Pressure 134/60 130/65 Pulse Oximetry 100 97 93 01/10/22 06:07 Temperature 97.8 F Pulse Rate 81 Respiratory Rate 16 Blood Pressure 112/54 L Pulse Oximetry 97 Intake/Output Intake/Output: Intake & Output 01/07/22 01/08/22 01/09/22 01/10/22 23:59 23:59 23:59 23:59 Intake Total 1000 1000 Output Total 0 Balance 1000 1000 Meds/Results Medications: Active Medications Generic Name Dose Route Start Last Admin Trade Name Freq PRN Reason Stop Dose Admin Dextrose 12.5 gm 01/09/22 16:55 Dextrose 50% 25 Gm/50 Ml Syringe IV PUSH PRN PRN Hypoglycemia Protocol Enoxaparin Sodium 40 mg 01/10/22 09:00 Enoxaparin 40 Mg/0.4 Ml Syringe SUB-Q DAILY JEANNE Glucagon 1 mg 01/09/22 16:55 Glucagon For Inj 1 Mg Vial IM PRN PRN Hypoglycemia Protocol Glucose 15 gm 01/09/22 16:55 Glucose Oral Gel 15 Gm Of Glucse In 37.5 Gm Tube PO
[2022-01-10] MEDS: ENOXAPARIN 40 MG/0.4 ML SYRINGE SUB-Q (09:52)
[2022-01-10] MEDS: MORPHINE SULFATE (*CRX) 2 MG/ML INJ IV PUSH ×2 (10:00→13:00)
[2022-01-10 11:27] LABS: Glucose Point of Care 110 mg/dl (65-105)
[2022-01-10 12:11] VITALS: BP 122/58; PULSE 81; RESP 18
[2022-01-10 14:34] VITALS: BP 113/66; PULSE 77; RESP 18; TEMP 36.2; O2SAT 98
[2022-01-10] MEDS: LORazepam INJ (*CRX) 2 MG/ML VIAL 0.5 MG IV PUSH (15:32)
[2022-01-10 17:32] LABS: Glucose Point of Care 102 mg/dl (65-105)
[2022-01-10 20:00] VITALS: PULSE 77; RESP 18; O2SAT 98
[2022-01-10 20:25] LABS: Glucose Point of Care 96 mg/dl (65-105)
[2022-01-10] MEDS: hydrALAZINE HCL 20 MG/ML VIAL 10 MG IV PUSH (21:01)
[2022-01-11] VITALS (7 sets, daily range): BP systolic 100–127; BP diastolic 48–64; PULSE 73–83; RESP 16–18; TEMP 36.1–36.6; O2SAT 94–97
[2022-01-11] MEDS: SODIUM CHLORIDE 0.9% IV 1,000 ML 100 ML IV CONT ×3 (00:25→18:16)
[2022-01-11 08:04] LABS: Glucose Point of Care 73 mg/dl (65-105)
[2022-01-11] MEDS: ENOXAPARIN 40 MG/0.4 ML SYRINGE SUB-Q (08:24)
--- NOTE | 2022-01-11 08:24 | PM.CNCAR ---
Assessment and Plan Additional Plan this is a 71-year-old woman who has a history of a nonischemic cardiomyopathy with which she has been relatively stable recently. She has been in this hospital before last February with a abdominal wall abscess that apparently was a complication of a previous cosmetic operation. She did not have any cardiovascular complications at the time of that surgery. She now presents to the hospital with a bowel obstruction and it seems that I have been asked to see her again to comment on her cardiac risk. From what the patient understands and reading the notes in the chart I do not believe she is scheduled for an operation today. Her cardiovascular risk for surgery is mildly elevated because of her myopathy, ventricular arrhythmias and the fact that she is not able to receive her medication. There is nothing we can do to mitigate those risks prior to surgery. because of her being NPO I will start some intravenous beta-tracie around the clock for replacement of her sotalol. Other than this I believe she can proceed with surgery with acceptable risk. Reinaldo Perez MD [facility] History of Present Illness History of Present Illness Consult date/time: 01/11/22 08:24 Consult reason: pre-op evaluation Reason For Visit: SBO Narrative: This is a 71-year-old woman who has a history of a nonischemic cardiomyopathy who is admitted here at [facility] with abdominal pain and a small bowel obstruction. I am asked to see her today to provide a preoperative cardiac risk assessment. I did see this patient in February of 2021 when she was here with an abdominal wall abscess for the same reason. She does not receive her cardiovascular care here at this hospital her ibm bpm architect is in [facility]. According to the records and will be no from this lady in the past she has a history of a nonischemic cardiomyopathy with left ventricular systolic dysfunction and a malignant ventricular arrhythmias. Her medical regimen has consisted of Entresto, sotalol a magnesium supplement. She came to [facility] on 01/09/2022 with abdominal pain was found to have a small-bowel obstruction. She has been treated with bowel rest with NG suction and NPO. She is hospitalized in room 340. She says this morning that her abdominal pain is improved and she has a resting comfortably in bed. She does not have any active complaints and denies any cardiovascular complaints. Obviously because of her NPO status she has not been receiving any of her cardiac medication. She does have a history of a nonischemic myopathy as mentioned above she says this diagnosis was made about 6 or 7 years ago she is followed by an distribution manager to practice is a [facility] and has been following her case as well as her defibrillator function. She says that she has not had any recent cardiac instability and offers no other complaints today. There is a note in the chart apparently the indicates her left ventricular systolic function has improved in follow-up with medical therapy apparently there have been some records obtained from her ibm bpm architect's office. She has not been experiencing any symptoms of chest pain orthopnea PND or accumulating edema. She has not received any recent shocks from her defibrillator device. Review of Systems Constitutional: Constitutional: Reports no additional constitutional complaints Eyes: Eyes: Reports no additional eye complaints ENT: Reports system reviewed and no additional complaints, except as documented Cardiovascular: Cardiovascular: Reports as per HPI Respiratory: Respiratory: Reports no additional respiratory complaints Gastrointestinal: Gastrointestinal: Reports as per HPI and Reports abdominal pain Musculoskeletal: Musculoskeletal: Reports arthralgias Comments: Diffuse arthritis Neurologic: Reports system reviewed and no additional complaints, except as documented Endocrine: Endocr
[2022-01-11] MEDS: ONDANSETRON INJ 4 MG/2 ML VIAL IV PUSH (08:28)
[2022-01-11] MEDS: MORPHINE SULFATE (*CRX) 2 MG/ML INJ IV PUSH (08:28)
[2022-01-11 08:31] LABS: Basophils Percent Auto 0.2 % (0.2-1.2); Eosinophils Absolute Auto 0.1 K/mm3 (0-0.3); Eosinophils Percent Auto 0.5 % (0-4.4); Hematocrit 38.5 % (37.0-47.0); Hemoglobin 12.6 g/dL (12.0-15.0); Immature Granulocyte Absolute 0.03 K/mm3 (0.00-0.031); Immature Granulocyte Percent A 0.2 % (0-0.5); Immature Platelet Fraction Pct 8.2 % (0.9-11.2); Lymphocytes Absolute Auto 1.41 K/mm3 (0.9-3.2); Lymphocytes Percent Auto 11.7 % (18.3-44.2); Mean Corpuscular HGB Conc 32.7 g/dl (32-36); Mean Corpuscular Hemoglobin 31.2 pg (26-34); Mean Corpuscular Volume 95.3 fl (80-100); Mean Platelet Volume 11.3 fl (7.4-10.4); Monocytes Absolute Auto 1.6 K/mm3 (0.1-0.6); Monocytes Percent Auto 13.4 % (2.6-8.5); Neutrophils Absolute Auto 8.9 K/mm3 (1.3-6.7); Platelet Count Result 125 k/mm3 (150-375); Red Blood Count 4.04 M/mm3 (4.2-5.4); Red Cell Distribution Width 14.2 % (11.5-14.5)
--- NOTE | 2022-01-11 08:32 | ECG_ITS ---
Measurements Intervals [place] Rate: 81 P: 57 [place]: 186 QRS: 106 QRSD: 90 T: 49 QT: 403 QTc: 468 Interpretive Statements SINUS RHYTHM WITH OCCASIONAL VENTRICULAR PREMATURE COMPLEXES MARKED RIGHT AXIS DEVIATION [QRS AXIS > 100] LOW QRS VOLTAGE IN EXTREMITY LEADS [QRS DEFLECTION < 0.5 mV IN LIMB LEADS] ANTERIOR MYOCARDIAL INFARCTION , OF INDETERMINATE AGE [40+ ms Q WAVE IN V1-V4] COMPARED TO ECG 02/24/2021 10:39:21 NO SIGNIFICANT CHANGES Electronically Signed On 01-11-2022 16:15:57 CDT by Reinaldo Perez M.D.
[2022-01-11 08:40] LABS: Alanine Aminotransferase 7 U/L (4-35); Albumin Level 3.4 g/dL (3.5-5.1); Alkaline Phosphatase 53 U/L (38-126); Anion Gap 6 mmol/L (8-16); Aspartate Amino Transferase 24 U/L (14-36); Bilirubin,Total 0.8 mg/dL (0.2-1.3); Blood Urea Nitrogen 14 mg/dL (7-17); Calcium 8.5 mg/dL (8.4-10.2); Carbon Dioxide 25 mmol/L (22-30); Chloride 108 mmol/L (98-107); Estimated CRCL calculation 49 ml/min; Estimated Glomerular Filt Rate > 60; Glucose 84 mg/dL (65-110); Magnesium 1.8 mg/dL (1.6-2.3); Potassium 3.3 mmol/L (3.4-5.0); Sodium 139 mmol/L (137-145)
[2022-01-11] MEDS: METOPROLOL TARTRATE INJ 5 MG/5 ML VIAL IV PUSH ×2 (10:10→16:26)
--- NOTE | 2022-01-11 11:04 | PM.IMPN ---
Progress Note: A&P Assessment and Plan (1) Small bowel obstruction: Code(s): K56.609 - Unspecified intestinal obstruction, unspecified as to partial versus complete obstruction Status: Acute Assessment and Plan: Monitor I&Os, vital signs, neuro status and patient is a fall risk Monitor serum electrolytes and CBC General surgery consulted to further evaluate small bowel obstruction if the patient needs surgical intervention or fails to improve with NG decompression. Place NG tube for non operative management, NG tube to low intermittent suction Gentle IV fluid resuscitation given the patient's NPO status P.r.n. Anti emetics, avoid reglan (2) Type 2 diabetes mellitus: Code(s): E11.9 - Type 2 diabetes mellitus without complications Status: Acute Assessment and Plan: Insulin Lispro sliding scale, Accu-checks qAc and HS and Hold oral hypoglycemics while the patient remains NPO perform Accu-Cheks q.6 hours (3) Cardiomyopathy: Code(s): I42.9 - Cardiomyopathy, unspecified Status: Acute Assessment and Plan: Patient does have a history of a nonischemic cardiomyopathy status post Bi V ICD placement. Patient's most recent echo does show a normal systolic function with grade 1 diastolic dysfunction. Will resume patient's cardiac medications once patient is able to have oral intake. Patient does not show any signs or symptoms of heart failure at this time will have intake and output monitor closely as well as daily weights. Cardiology was consulted for risk management prior to surgery Patient's sotalol was on hold, continue beta-tracie replacement intravenously (4) Hypertension: Code(s): I10 - Essential (primary) hypertension Status: Acute Assessment and Plan: Patient's blood pressure has been stable at this time. p.r.n. hydralazine available if systolic blood pressure greater than 180 (5) Leukocytosis: Code(s): D72.829 - Elevated white blood cell count, unspecified Status: Acute Assessment and Plan: Patient has developed a leukocytosis. Patient remains afebrile. Adding antibiotics empirically due to CT findings of inflammation vs ischemic bowel. Administer Zosyn 3.375 mg q.6 hours (6) Thrombocytopenia: Code(s): D69.6 - Thrombocytopenia, unspecified Status: Acute Assessment and Plan: monitor for signs and symptoms of blood loss or bleeding. Monitor CBC/platelet count (7) Hypokalemia: Code(s): E87.6 - Hypokalemia Status: Acute Assessment and Plan: Monitor serum electrolytes Replete as necessary administer potassium chloride 40 mEq IVPB Subjective Date/time seen: 01/11/22 11:04 Patient is alert and oriented this morning. Patient disclosed that she had an abdominal pack approximately 2 years ago with no adverse cardiac event as well as surgical intervention for an abdominal wall abscess approximately 8 months ago. However the patient has a Bi V ICD in significant cardiomyopathy. Cardiology was consulted for risk assessment prior to surgical intervention if required. Patient continues to have NG tube placed to the right near, low intermittent suction with moderate output. See repeat KUB this morning revealed persistent small-bowel obstruction. Patient is not passing flatus nor has she had a bowel movement. She denies any acute abdominal pain. However she reports she has been getting narcotics regularly from nursing staff. No acute events reported by nursing staff overnight. Pending further recommendations by General surgery. Review of Systems Review of Systems: All systems reviewed & are unremarkable except as noted in HPI and below Exam Narrative: Constitutional: Patient is well-nourished in no acute distress. Patient is alert and oriented x3 HEENT: Moist mucous membranes. No scleral icterus. No lymphadenopathy. Patient has NG tube in place to her right nares. Neck: No carotid bruits noted no
[2022-01-11] MEDS: LORazepam INJ (*CRX) 2 MG/ML VIAL 0.5 MG IV PUSH (11:09)
[2022-01-11] MEDS: POTASSIUM CHLORIDE INJ 40 MEQ in SODIUM CHLORIDE 0.9% IV 500 ML 130 MEQ IVPB (12:07)
--- NOTE | 2022-01-11 12:09 | PM.PNGS ---
Progress Note: A&P Assessment and Plan (1) Small bowel obstruction: Code(s): K56.609 - Unspecified intestinal obstruction, unspecified as to partial versus complete obstruction Status: Acute Assessment and Plan: exam largely benign, cont bowel rest, NG decompression, will recheck KUB in am (2) Cardiomyopathy: Code(s): I42.9 - Cardiomyopathy, unspecified Status: Acute Assessment and Plan: appreciate cardiac input Subjective Subjective Date/Time Seen: 01/11/22 12:09 feels slightly better, +flatus, no BM Review of Systems Review of Systems: All systems reviewed & are unremarkable except as noted in HPI and below Exam Const: General: cooperative, comfortable and no acute distress Orientation/consciousness: patient oriented x3 Resp: Effort & Inspection: normal respiratory effort Auscultation: clear to auscultation bilaterally Cardio: Rate: regular rate Rhythm: regular rhythm GI: Inspection: normal to inspection and distended GI Palp: Yes Soft to palpation, Yes Tenderness to palpation present (GI), No Guarding due to palpation present (GI) and No Rigid due to palpation Other: soft, sl dist, mild TTP diffusely, no peritoneal signs Objective Data Vital Signs Vital Signs: Vital Signs - 24 hr 01/10/22 12:11 01/10/22 14:34 01/10/22 20:00 Temperature 36.2 C L Pulse Rate 81 77 77 Respiratory Rate 18 18 18 Blood Pressure 122/58 L 113/66 Pulse Oximetry 98 98 01/11/22 01:01 01/11/22 08:23 Temperature 36.4 C L Pulse Rate 73 Respiratory Rate 18 Blood Pressure 104/54 L Pulse Oximetry 96 96 Intake/Output Intake/Output: Intake & Output 01/08/22 01/09/22 01/10/22 01/11/22 23:59 23:59 23:59 23:59 Intake Total 1000 4350 1050 Output Total 0 100 150 Balance 1000 4250 900 Meds/Results Medications: Active Medications Generic Name Dose Route Start Last Admin Trade Name Freq PRN Reason Stop Dose Admin Dextrose 12.5 gm 01/09/22 16:55 Dextrose 50% 25 Gm/50 Ml Syringe IV PUSH PRN PRN Hypoglycemia Protocol Enoxaparin Sodium 40 mg 01/10/22 09:00 01/11/22 08:24 Enoxaparin 40 Mg/0.4 Ml Syringe SUB-Q 40 mg DAILY JEANNE Administration Glucagon 1 mg 01/09/22 16:55 Glucagon For Inj 1 Mg Vial IM PRN PRN Hypoglycemia Protocol Glucose 15 gm 01/09/22 16:55 Glucose Oral Gel 15 Gm Of Glucse In 37.5 Gm Tube PO PRN PRN Hypoglycemia Protocol Hydralazine HCl 10 mg 01/09/22 16:56 01/10/22 21:01 Hydralazine Hcl 20 Mg/Ml Vial IV PUSH 10 mg Q8H PRN Administration Blood Pressure - High Sodium Chloride 1,000 mls @ 100 mls/hr 01/09/22 14:55 01/11/22 08:24 Normal Saline Iv IV CONT 100 mls/hr .Q10H JEANNE Administration Dextrose 1,000 mls @ 100 mls/hr 01/09/22 16:55 Dextrose 5% 1,000 Ml IVPB PRN PRN Hypoglycemia Protocol Piperacillin/Tazobactam/Dextrose 3.375 gm in 50 mls @ 100 mls/hr 01/10/22 10:00 01/11/22 09:06 Zosyn 3.375 Gm/D5w 50ml Pm IVPB 100 mls/hr Q6H JEANNE Administration Potassium Chloride 40 meq/ 520 mls @ 130 mls/hr 01/11/22 11:03 Sodium Chloride IVPB 01/11/22 15:02 ONCE ONE Insulin Aspart 2 - 5 units 01/09/22 17:00 01/11/22 08:21 Insulin Aspart (*Bkc) 100 Units/Ml SUB-Q Not Given TIDWM JEANNE Protocol Lorazepam 0.5 mg 01/10/22 15:23 01/11/22 11:09 Lorazepam Inj (*Crx) 2 Mg/Ml Vial IV PUSH 0.5 mg Q6H PRN Administration Anxiety Metoprolol Tartrate 5 mg 01/11/22 08:35 01/11/22 10:10 Metoprolol Tartrate Inj 5 Mg/5 Ml Vial IV PUSH 5 mg Q8H JEANNE Administration Morphine Sulfate 2 mg 01/09/22 14:55 01/11/22 08:28 Morphine Sulfate (*Crx) 2 Mg/Ml Inj IV PUSH 2 mg Q2H PRN Administration Pain Rated 7-10 Ondansetron HCl 4 mg 01/09/22 14:55 01/11/22 08:28 Ondansetron Inj 4 Mg/2 Ml Vial IV PUSH 4 mg Q4H PRN Administration Nausea And Vomiting Radiology Results: ITS I
[2022-01-11 12:55] LABS: Glucose Point of Care 97 mg/dl (65-105)
--- NOTE | 2022-01-11 18:01 | PC.NURSE ---
Patient blood sugar checked it was 65, patient is NPO. PRN medication given and blood sugar recheck.
[2022-01-11 18:04] LABS: Glucose Point of Care 65 mg/dl (65-105)
[2022-01-11] MEDS: DEXTROSE 50% 25 GM/50 ML SYRINGE IV PUSH (18:15)
[2022-01-11 18:38] LABS: Glucose Point of Care 182 mg/dl (65-105)
[2022-01-11 19:59] LABS: Glucose Point of Care 81 mg/dl (65-105)
[2022-01-12] VITALS (9 sets, daily range): BP systolic 100–127; BP diastolic 53–70; PULSE 66–91; RESP 16–18; TEMP 36.2–37.9; O2SAT 93–99
[2022-01-12 00:13] LABS: Glucose Point of Care 77 mg/dl (65-105)
[2022-01-12] MEDS: METOPROLOL TARTRATE INJ 5 MG/5 ML VIAL IV PUSH ×3 (00:41→16:40)
[2022-01-12] MEDS: SODIUM CHLORIDE 0.9% IV 1,000 ML 100 ML IV CONT ×3 (00:42→21:54)
[2022-01-12] MEDS: MORPHINE SULFATE (*CRX) 2 MG/ML INJ IV PUSH (02:35)
[2022-01-12] MEDS: ONDANSETRON INJ 4 MG/2 ML VIAL IV PUSH (02:41)
[2022-01-12 06:00] LABS: Basophils Percent Auto 0.3 % (0.2-1.2); Eosinophils Absolute Auto 0.1 K/mm3 (0-0.3); Hematocrit 35.3 % (37.0-47.0); Hemoglobin 11.4 g/dL (12.0-15.0); Immature Granulocyte Absolute 0.05 K/mm3 (0.00-0.031); Immature Granulocyte Percent A 0.4 % (0-0.5); Lymphocytes Absolute Auto 1.05 K/mm3 (0.9-3.2); Lymphocytes Percent Auto 9.1 % (18.3-44.2); Mean Corpuscular HGB Conc 32.3 g/dl (32-36); Mean Corpuscular Hemoglobin 31.6 pg (26-34); Mean Corpuscular Volume 97.8 fl (80-100); Mean Platelet Volume 12.1 fl (7.4-10.4); Monocytes Absolute Auto 1.5 K/mm3 (0.1-0.6); Monocytes Percent Auto 13.2 % (2.6-8.5); Neutrophils Absolute Auto 8.8 K/mm3 (1.3-6.7); Platelet Count Result 106 k/mm3 (150-375); Red Blood Count 3.61 M/mm3 (4.2-5.4); White Blood Count 11.5 K/mm3 (4.5-10.0)
[2022-01-12 06:16] LABS: Alkaline Phosphatase 45 U/L (38-126); Anion Gap 2 mmol/L (8-16); Aspartate Amino Transferase 22 U/L (14-36); Bilirubin,Total 0.7 mg/dL (0.2-1.3); Blood Urea Nitrogen 13 mg/dL (7-17); Calcium 8.2 mg/dL (8.4-10.2); Carbon Dioxide 28 mmol/L (22-30); Chloride 107 mmol/L (98-107); Estimated CRCL calculation 49 ml/min; Estimated Glomerular Filt Rate > 60; Glucose 85 mg/dL (65-110); Potassium 3.6 mmol/L (3.4-5.0); Sodium 137 mmol/L (137-145)
[2022-01-12 06:16] LABS: Glucose Point of Care 92 mg/dl (65-105)
[2022-01-12] MEDS: LORazepam INJ (*CRX) 2 MG/ML VIAL 0.5 MG IV PUSH (06:20)
[2022-01-12 07:29] LABS: Alanine Aminotransferase < 6 U/L (4-35)
[2022-01-12 08:01] LABS: Glucose Point of Care 78 mg/dl (65-105)
[2022-01-12] MEDS: ENOXAPARIN 40 MG/0.4 ML SYRINGE SUB-Q (08:20)
--- NOTE | 2022-01-12 08:57 | PM.PNCARD ---
Progress Note: A&P Assessment and Plan (1) Cardiomyopathy: Code(s): I42.9 - Cardiomyopathy, unspecified Status: Acute Assessment and Plan: Resume her standard CHF/cardiomyopathy medications when able to take oral medications. For now, she is receiving IV metoprolol (2) Cardiac dysrhythmia: Code(s): I49.9 - Cardiac arrhythmia, unspecified Status: Chronic Assessment and Plan: On metoprolol for now. Transition back to sotalol when able to take p.o. (3) Hypertension: Code(s): I10 - Essential (primary) hypertension Status: Acute Assessment and Plan: At goal (4) Small bowel obstruction: Code(s): K56.609 - Unspecified intestinal obstruction, unspecified as to partial versus complete obstruction Status: Acute Assessment and Plan: NG in place (5) Hypokalemia: Code(s): E87.6 - Hypokalemia Status: Acute Assessment and Plan: Will give 40 mEq IV potassium chloride x1. Subjective Date/time seen: 01/12/22 08:57 Interval history: 71-YEAR-OLD ADMITTED FOR SMALL-BOWEL OBSTRUCTION. HAS SIGNIFICANT CARDIAC HISTORY. Date of service 01/12/2022: NG still in place. She has no chest pain, shortness of breath. Dealing with some anxiety. No edema Review of Systems Constitutional: Constitutional: Reports no additional constitutional complaints Eyes: Eyes: Reports no additional eye complaints ENT: Reports system reviewed and no additional complaints, except as documented Cardiovascular: Cardiovascular: Reports as per HPI Respiratory: Respiratory: Reports no additional respiratory complaints Gastrointestinal: Gastrointestinal: Reports as per HPI and Reports abdominal pain Musculoskeletal: Musculoskeletal: Reports arthralgias Neurologic: Reports system reviewed and no additional complaints, except as documented Endocrine: Endocrine: Reports no additional endocrine complaints Hematologic/Lymphatic: Hematologic/Lymphatic: Reports no additional hematologic/lymphatic complaints Allergic/Immunologic: Allergic/Immunologic: Reports no additional allergic/immunologic complaints Exam Const: General: comfortable and no acute distress Other: well-developed well-nourished white female appears to be comfortable lying supine in bed she was sleeping when I entered the room upon awakening describes no cardiovascular complaints. She does have NG suction in place and is receiving intravenous antibiotics HENMT: Mouth: Yes moist mucous membranes Eyes: Sclera: sclerae normal Neck: Neck: supple and no JVD Other: carotid upstrokes are intact bilaterally and are without bruits Resp: Effort & Inspection: normal respiratory effort Auscultation: clear to auscultation bilaterally Cardio: Rate: regular rate Rhythm: regular rhythm Other: soft systolic murmur that does not radiate from the left sternal border GI: Other: bowel sounds are quiet Skin: General skin exam: normal color Neuro: Cognition (Neuro): normal cognition Extrem: General: normal to inspection Other: no edema good distal pulses Objective Data Vital Signs Vital Signs: Vital Signs - 24 hr 01/11/22 14:54 01/11/22 18:32 01/11/22 20:00 Temperature 36.6 C Pulse Rate 82 80 Respiratory Rate 16 Blood Pressure 100/48 L 127/64 Pulse Oximetry 97 97 01/11/22 21:03 01/11/22 21:07 01/12/22 00:41 Temperature 36.1 C L Pulse Rate 83 91 Respiratory Rate 16 Blood Pressure 116/53 L Pulse Oximetry 94 94 01/12/22 00:43 01/12/22 00:53 01/12/22 06:10 Temperature 36.3 C L Pulse Rate 91 86 90 Respiratory Rate 18 Blood Pressure 100/53 L 127/56 L 112/60 Pulse Oximetry 98 01/12/22 08:18 01/12/22 08:23 Temperature Pulse Rate 66 Respiratory Rate Blood Pressure Pulse Oximetry 93 Intake/Output Intake/Output: Intake & Output 01/09/22 01/10/22 01/11/22 01/12/22 23:59 23:59 23:59 23:59 Intake Total 1000 4350 2200 1050 Output Total 0 1
--- NOTE | 2022-01-12 10:43 | PM.IMPN ---
Progress Note: A&P Assessment and Plan (1) Small bowel obstruction: Code(s): K56.609 - Unspecified intestinal obstruction, unspecified as to partial versus complete obstruction Status: Acute Assessment and Plan: Monitor I&Os, vital signs, neuro status and patient is a fall risk Monitor serum electrolytes and CBC General surgery consulted to further evaluate small bowel obstruction if the patient needs surgical intervention or fails to improve with NG decompression. Place NG tube for non operative management, NG tube to low intermittent suction Gentle IV fluid resuscitation given the patient's NPO status P.r.n. Anti emetics, avoid reglan (2) Type 2 diabetes mellitus: Code(s): E11.9 - Type 2 diabetes mellitus without complications Status: Acute Assessment and Plan: Insulin Lispro sliding scale, Accu-checks qAc and HS and Hold oral hypoglycemics while the patient remains NPO perform Accu-Cheks q.6 hours (3) Cardiomyopathy: Code(s): I42.9 - Cardiomyopathy, unspecified Status: Acute Assessment and Plan: Patient does have a history of a nonischemic cardiomyopathy status post Bi V ICD placement. Patient's most recent echo does show a normal systolic function with grade 1 diastolic dysfunction. Will resume patient's cardiac medications once patient is able to have oral intake. Patient does not show any signs or symptoms of heart failure at this time will have intake and output monitor closely as well as daily weights. Cardiology was consulted for risk management prior to surgery Patient's sotalol was on hold, continue beta-tracie replacement intravenously (4) Hypertension: Code(s): I10 - Essential (primary) hypertension Status: Acute Assessment and Plan: Patient's blood pressure has been stable at this time. p.r.n. hydralazine available if systolic blood pressure greater than 180 (5) Leukocytosis: Code(s): D72.829 - Elevated white blood cell count, unspecified Status: Acute Assessment and Plan: Patient has developed a leukocytosis. Patient remains afebrile. Adding antibiotics empirically due to CT findings of inflammation vs ischemic bowel. Administer Zosyn 3.375 mg q.6 hours (6) Thrombocytopenia: Code(s): D69.6 - Thrombocytopenia, unspecified Status: Acute Assessment and Plan: monitor for signs and symptoms of blood loss or bleeding. Monitor CBC/platelet count (7) Hypokalemia: Code(s): E87.6 - Hypokalemia Status: Acute Assessment and Plan: Monitor serum electrolytes Replete as necessary administer potassium chloride 40 mEq IVPB x1, K 3.6 Subjective Date/time seen: 01/12/22 10:43 patient was evaluated this morning at bedside. She reported that she was mildly nauseous although had been consuming ice chips. Family member at bedside. They were educated on the plan of care. Patient have imaging performed today to follow-up on the small-bowel obstruction. Patient continues on metoprolol IV scheduled, 0 once patient is able to the have an appropriate oral intake home medications will be resumed. Patient reported that she was able to have flatus x2, no bowel movement. No significant events overnight reported by the RN. Review of Systems Review of Systems: All systems reviewed & are unremarkable except as noted in HPI and below Exam Narrative: Constitutional: Patient is well-nourished in no acute distress. Patient is alert and oriented x3 HEENT: Moist mucous membranes. No scleral icterus. No lymphadenopathy. Patient has NG tube in place to her right nares. Neck: No carotid bruits noted no JVD noted Lungs: Lung sounds are clear to auscultation bilaterally. No accessory muscle use. No rhonchi, rales, or wheezes noted. Cardiovascular: Apical pulse is regular rate and rhythm. S1-S2 noted, no S3 or S4 noted. No gallops, murmurs, or rubs noted. Abdomen: Soft, round, and nontender. No palpable
[2022-01-12 12:00] LABS: Glucose Point of Care 87 mg/dl (65-105)
--- NOTE | 2022-01-12 15:11 | PM.PNGS ---
Progress Note: A&P Assessment and Plan (1) Small bowel obstruction: Code(s): K56.609 - Unspecified intestinal obstruction, unspecified as to partial versus complete obstruction Status: Acute Assessment and Plan: exam largely benign, cont bowel rest, NG decompression. No plans for operative intervention over the weekend. If patient needs operation it should be day when cardiology and others are available. Apparently patient has not been walking the hallways but she is willing will have her start walking into a rotation between sitting in the chair walking in the hallway and laying down during the daytime. Will also put the NG on clamping routine 2 hours clamped 2 hours to suction and see how much check comes out over the next 24 hours. Will wait to see how she is doing tomorrow before ordering further x-rays. Most likely will recheck a obstructive series for Friday morning. Try duplex suppository to see if this will help things get moving from below. Try milk of magnesia once from above when tube was clamped. (2) Cardiomyopathy: Code(s): I42.9 - Cardiomyopathy, unspecified Status: Acute Assessment and Plan: appreciate cardiac input Subjective Subjective Date/Time Seen: 01/12/22 15:11 patient lying in bed trying to sleep when I entered the room. She denies much abdominal pain. She does not believe she has passed much gas out the backside. No nausea or vomiting for now. Review of the chart reveals she has not been walking the hallways although she is willing. Review of Systems Review of Systems: All systems reviewed & are unremarkable except as noted in HPI and below Constitutional: Constitutional: Reports as per HPI, Denies chills, Denies fatigue and Denies fever(s) Cardiovascular: Cardiovascular: Reports no additional cardiovascular complaints, Denies chest pain, Denies leg edema and Denies dyspnea Respiratory: Respiratory: Reports no additional respiratory complaints, Denies cough and Denies dyspnea Gastrointestinal: Gastrointestinal: Reports as per HPI, Reports no additional gastrointestinal complaints, Reports abdominal pain (lower), Denies melena, Denies bloating, Denies hematochezia and Denies vomiting Genitourinary: Genitourinary: Reports no additional female genitourinary complaints, Denies hematuria and Denies dysuria Musculoskeletal: Musculoskeletal: Reports no additional musculoskeletal complaints, Denies deformity, Denies joint swelling, Denies numbness and Denies tingling Integumentary/Breasts: Skin/Breast: Reports system reviewed and no additional complaints, except as docu Neurologic: Reports system reviewed and no additional complaints, except as documented, Denies focal weakness, Denies numbness and Denies tingling Endocrine: Endocrine: Denies fatigue Exam Const: General: cooperative, comfortable, no acute distress, alert and awake Nutritional Appearance: average body habitus Orientation/consciousness: patient oriented x3 HENMT: Head: normocephalic and atraumatic Ears: hearing grossly normal bilaterally Mouth: Yes moist mucous membranes Eyes: General: appearance normal, both eyes and all related structures Sclera: sclerae normal Pupils: Equal, round and reactive pupils present EOM: EOMs intact bilaterally Neck: Neck: normal visual inspection and full ROM Resp: Effort & Inspection: normal respiratory effort, able to speak in complete sentences and no respiratory distress Auscultation: clear to auscultation bilaterally Cardio: Rate: regular rate Rhythm: regular rhythm Heart sounds: S1 normal heart sound present and S2 normal heart sound present GI: Inspection: normal to inspection, distended, scar (large horizontal lower abd, RLQ from lap band port, few trocar scars) and no visible herniation Auscultation: normal bowel sounds Rectal Exam: deferred Other: soft, sl dist, mild TTP diffusely, no peritoneal signs : General: Yes no CVA tenderness Back
[2022-01-12] MEDS: MAGNESIUM HYDROXIDE SUSP 30 ML UDC FEED TUBE (15:29)
--- NOTE | 2022-01-12 15:44 | PC.NURSE ---
Patient ambulated 200+ feet. Tolerated well.
[2022-01-12 16:45] LABS: Glucose Point of Care 85 mg/dl (65-105)
[2022-01-12] MEDS: BISACODYL 10 MG SUPPOSITORY RECTAL (18:28)
--- NOTE | 2022-01-12 22:59 | PC.NURSE ---
Pt pulled out her NG during sneezing at 1900 this evening. Pt then defecated a moderate amount. HALEY Perdomo is informed who states that she is ok with no replacement of NG at this time if pt is not having nausea and vomiting. Pt is not nauseated or vomiting, abdomen is not distended. HOB to remain elevated and KUB in the am.
[2022-01-13 00:31] LABS: Glucose Point of Care 81 mg/dl (65-105)
[2022-01-13 00:33] VITALS: PULSE 72
[2022-01-13] MEDS: METOPROLOL TARTRATE INJ 5 MG/5 ML VIAL IV PUSH ×3 (00:33→16:33)
[2022-01-13] MEDS: ONDANSETRON INJ 4 MG/2 ML VIAL IV PUSH (01:46)
[2022-01-13 05:33] VITALS: BP 107/51; PULSE 73; RESP 16; TEMP 36.6; O2SAT 97
[2022-01-13 05:35] LABS: Basophils Percent Auto 0.4 % (0.2-1.2); Eosinophils Absolute Auto 0.1 K/mm3 (0-0.3); Eosinophils Percent Auto 1.1 % (0-4.4); Hemoglobin 10.6 g/dL (12.0-15.0); Immature Granulocyte Absolute 0.04 K/mm3 (0.00-0.031); Immature Granulocyte Percent A 0.4 % (0-0.5); Immature Platelet Fraction Pct 9.6 % (0.9-11.2); Lymphocytes Absolute Auto 0.97 K/mm3 (0.9-3.2); Lymphocytes Percent Auto 9.6 % (18.3-44.2); Mean Corpuscular HGB Conc 33.1 g/dl (32-36); Mean Corpuscular Hemoglobin 30.7 pg (26-34); Mean Corpuscular Volume 92.8 fl (80-100); Mean Platelet Volume 11.3 fl (7.4-10.4); Monocytes Absolute Auto 1.4 K/mm3 (0.1-0.6); Monocytes Percent Auto 14.1 % (2.6-8.5); Neutrophils Absolute Auto 7.5 K/mm3 (1.3-6.7); Neutrophils Percent Auto 74.4 % (45.5-73.1); Platelet Count Result 100 k/mm3 (150-375); Red Blood Count 3.45 M/mm3 (4.2-5.4); Red Cell Distribution Width 13.7 % (11.5-14.5); White Blood Count 10.1 K/mm3 (4.5-10.0)
[2022-01-13 05:39] LABS: Lactic Acid Reflex 0.6 mmol/L (0.7-2.1)
[2022-01-13 05:48] LABS: Anion Gap 5 mmol/L (8-16); Blood Urea Nitrogen 10 mg/dL (7-17); Calcium 8.1 mg/dL (8.4-10.2); Carbon Dioxide 30 mmol/L (22-30); Chloride 103 mmol/L (98-107); Estimated CRCL calculation 57 ml/min; Estimated Glomerular Filt Rate > 60; Glucose 84 mg/dL (65-110); Magnesium 1.7 mg/dL (1.6-2.3); Potassium 3.1 mmol/L (3.4-5.0); Sodium 138 mmol/L (137-145)
[2022-01-13 05:50] LABS: Glucose Point of Care 81 mg/dl (65-105)
[2022-01-13 07:45] LABS: Glucose Point of Care 80 mg/dl (65-105)
[2022-01-13] MEDS: POTASSIUM CHLORIDE INJ 40 MEQ in SODIUM CHLORIDE 0.9% IV 500 ML 130 MEQ IVPB (08:00)
[2022-01-13] MEDS: SODIUM CHLORIDE 0.9% IV 1,000 ML 100 ML IV CONT (08:08)
--- NOTE | 2022-01-13 11:45 | PM.IMPN ---
Progress Note: A&P Assessment and Plan (1) Small bowel obstruction: Code(s): K56.609 - Unspecified intestinal obstruction, unspecified as to partial versus complete obstruction Status: Acute Assessment and Plan: General surgery consulted to further evaluate small bowel obstruction if the patient needs surgical intervention or fails to improve with NG decompression. Place NG tube for non operative management, NG tube to low intermittent suction. Attempted to clamp NG tube yesterday, trial failed. Patient developed nausea and vomiting. Gentle IV fluid resuscitation given the patient's NPO status Repeat KUB did not show significant changes. 01/15/2022 P.r.n. Anti emetics, avoid reglan (2) Type 2 diabetes mellitus: Code(s): E11.9 - Type 2 diabetes mellitus without complications Status: Acute Assessment and Plan: Insulin Lispro sliding scale, Accu-checks qAc and HS and Hold oral hypoglycemics while the patient remains NPO perform Accu-Cheks q.6 hours Patient was started on D5 half-normal saline with 20 mEq of potassium added to the patient's hypokalemia. However she is also a diabetic that has been NPO for significant amount time. Blood glucose within normal limits. However on 01/14/2022 the patient will receive her once a month injection. Will slide with insulin per sliding scale (3) Cardiomyopathy: Code(s): I42.9 - Cardiomyopathy, unspecified Status: Acute Assessment and Plan: Patient does have a history of a nonischemic cardiomyopathy status post Bi V ICD placement. Patient's most recent echo does show a normal systolic function with grade 1 diastolic dysfunction. Will resume patient's cardiac medications once patient is able to have oral intake. Patient does not show any signs or symptoms of heart failure at this time will have intake and output monitor closely as well as daily weights. Cardiology was consulted for risk management prior to surgery Patient's sotalol was on hold, continue beta-tracie replacement intravenously (4) Hypertension: Code(s): I10 - Essential (primary) hypertension Status: Acute Assessment and Plan: Patient's blood pressure has been stable at this time. p.r.n. hydralazine available if systolic blood pressure greater than 180 Patient's sotalol is on hold, continue beta-tracie replacement intravenously (5) Leukocytosis: Code(s): D72.829 - Elevated white blood cell count, unspecified Status: Acute Assessment and Plan: Patient has developed a leukocytosis. Patient remains afebrile. Adding antibiotics empirically due to CT findings of inflammation vs ischemic bowel. Administer Zosyn 3.375 mg q.6 hours, patient was started on antibiotics on 01/10/2022 (6) Thrombocytopenia: Code(s): D69.6 - Thrombocytopenia, unspecified Status: Acute Assessment and Plan: monitor for signs and symptoms of blood loss or bleeding. Monitor CBC/platelet count Decreasing (7) Hypokalemia: Code(s): E87.6 - Hypokalemia Status: Acute Assessment and Plan: Monitor serum electrolytes Replete as necessary administer potassium chloride 40 mEq IVPB x1, K 3.1 Patient has received 40 mEq of potassium chloride IV PB x3 days. Changing IV fluids to D5 half-normal saline with 20 K Subjective Date/time seen: 01/13/22 11:45 Patient remains alert and oriented x4. Apparently yesterday evening the NG tube was accidentally pulled out. The patient had to have it reinserted around 2 in the morning due to the increased nausea and vomiting. Repeat imaging still reveals the obstruction. Defer to General surgery. Patient has no other acute concerns. Potassium was noted to be mildly low at 3.1, 40 mEq IVPB administered. Platelet count continues to decrease, hemoglobin is stable. Continue to monitor. Review of Systems Review of Systems: All systems reviewed & are unremarkable except as noted in HPI and below Exam Narr
[2022-01-13 11:49] LABS: Glucose Point of Care 69 mg/dl (65-105)
[2022-01-13] MEDS: DEXTROSE 50% 25 GM/50 ML SYRINGE IV PUSH (11:54)
--- NOTE | 2022-01-13 12:16 | PM.PNCARD ---
Progress Note: A&P Assessment and Plan (1) Cardiomyopathy: Code(s): I42.9 - Cardiomyopathy, unspecified Status: Acute Assessment and Plan: Resume her standard CHF/cardiomyopathy medications when able to take oral medications. For now, she is receiving IV metoprolol (2) Cardiac dysrhythmia: Code(s): I49.9 - Cardiac arrhythmia, unspecified Status: Chronic Assessment and Plan: On metoprolol for now. Transition back to sotalol when able to take p.o. (3) Hypertension: Code(s): I10 - Essential (primary) hypertension Status: Acute Assessment and Plan: At goal (4) Small bowel obstruction: Code(s): K56.609 - Unspecified intestinal obstruction, unspecified as to partial versus complete obstruction Status: Acute Assessment and Plan: NG in place (5) Hypokalemia: Code(s): E87.6 - Hypokalemia Status: Acute Assessment and Plan: Replaced Subjective Date/time seen: 01/13/22 12:16 Interval history: 71-YEAR-OLD ADMITTED FOR SMALL-BOWEL OBSTRUCTION. HAS SIGNIFICANT CARDIAC HISTORY. Date of service 01/12/2022: NG still in place. She has no chest pain, shortness of breath. Dealing with some anxiety. No edema Date of service 01/13/2022: No chest pain, shortness of breath, edema. NG still in place Review of Systems Constitutional: Constitutional: Reports no additional constitutional complaints Eyes: Eyes: Reports no additional eye complaints ENT: Reports system reviewed and no additional complaints, except as documented Cardiovascular: Cardiovascular: Reports as per HPI Respiratory: Respiratory: Reports no additional respiratory complaints Gastrointestinal: Gastrointestinal: Reports as per HPI and Reports abdominal pain Musculoskeletal: Musculoskeletal: Reports arthralgias Neurologic: Reports system reviewed and no additional complaints, except as documented Endocrine: Endocrine: Reports no additional endocrine complaints Hematologic/Lymphatic: Hematologic/Lymphatic: Reports no additional hematologic/lymphatic complaints Allergic/Immunologic: Allergic/Immunologic: Reports no additional allergic/immunologic complaints Exam Const: General: comfortable and no acute distress Other: well-developed well-nourished white female appears to be comfortable lying supine in bed she was sleeping when I entered the room upon awakening describes no cardiovascular complaints. She does have NG suction in place and is receiving intravenous antibiotics HENMT: Mouth: Yes moist mucous membranes Eyes: Sclera: sclerae normal Neck: Neck: supple and no JVD Other: carotid upstrokes are intact bilaterally and are without bruits Resp: Effort & Inspection: normal respiratory effort Auscultation: clear to auscultation bilaterally Cardio: Rate: regular rate Rhythm: regular rhythm Other: soft systolic murmur that does not radiate from the left sternal border GI: Other: bowel sounds are quiet Skin: General skin exam: normal color Neuro: Cognition (Neuro): normal cognition Extrem: General: normal to inspection Other: no edema good distal pulses Objective Data Vital Signs Vital Signs: Vital Signs - 24 hr 01/12/22 15:11 01/12/22 21:20 01/13/22 00:33 Temperature 37.9 C H 36.2 C L Pulse Rate 78 77 72 Respiratory Rate 16 16 Blood Pressure 113/70 115/56 L Pulse Oximetry 99 97 01/13/22 05:33 Temperature 36.6 C Pulse Rate 73 Respiratory Rate 16 Blood Pressure 107/51 L Pulse Oximetry 97 Intake/Output Intake/Output: Intake & Output 01/10/22 01/11/22 01/12/22 01/13/22 23:59 23:59 23:59 23:59 Intake Total 4350 2200 3200 1100 Output Total 100 8346 407 3904 Balance 4250 850 2700 100 Meds/Results Medications: Active Medications Generic Name Dose Route Start Last Admin Trade Name Freq PRN Reason Stop Dose Admin Dextrose 12.5 gm 01/09/22 16:55 01/13/22 11:54 Dextrose 50% 25 Gm/50 Ml Syringe IV PUSH
[2022-01-13 12:21] LABS: Glucose Point of Care 129 mg/dl (65-105)
[2022-01-13] MEDS: LORazepam INJ (*CRX) 2 MG/ML VIAL 0.5 MG IV PUSH ×2 (12:24→21:49)
[2022-01-13] MEDS: ENOXAPARIN 40 MG/0.4 ML SYRINGE SUB-Q (12:25)
[2022-01-13 14:00] VITALS: BP 129/62; PULSE 76; RESP 16; TEMP 36.5; O2SAT 97
[2022-01-13] MEDS: KCL 20 MEQ/D5/0.45% SOD CHL 1,000 ML 75 ML IV CONT (14:09)
--- NOTE | 2022-01-13 14:12 | PM.PNGS ---
Progress Note: A&P Assessment and Plan (1) Small bowel obstruction: Code(s): K56.609 - Unspecified intestinal obstruction, unspecified as to partial versus complete obstruction Status: Acute Assessment and Plan: Exam largely benign, cont bowel rest, NG decompression. Lactic Acid normal today suggesting no intestinal ischemia related to the bowel obstruction. No plans for operative intervention over the weekend. If patient needs operation it should be week day when cardiology and others are available and present in the hospital. Apparently patient has not been walking the hallways but she is willing, so will have her start walking into a rotation between sitting in the chair walking in the hallway and laying down during the daytime. Last evening the patient apparently sneezed and the NG tube came out so a new 1 was placed and the x-ray after that was placed to check placement still showed a couple loops of small bowel dilated in the upper mid abdomen. Because she had a good amount out overnight ( 1000 cc) will check with her nurse later in the shift and if not much out consider trying another dose of milk of magnesia down this NG tube. The tip of this NG tube on x-ray appears to be in the duodenum. I will recheck a obstructive series for Friday morning. We may again milk of magnesia once from above when tube is clamped If not much comes out in the next 6-8 hours. (2) Cardiomyopathy: Code(s): I42.9 - Cardiomyopathy, unspecified Status: Acute Assessment and Plan: appreciate cardiac input Additional Plan I have discussed the patient's case and plan of care with Dr. Pierre. Subjective Subjective Date/Time Seen: 01/13/22 08:12 Patient is sitting up in bed when I saw her. NG draining darkish fluid this time. She told me that she was sitting on the side of the bed and sneezed and the NG came out last evening. Apparently was left out for a while but then she began vomiting so was replaced at around 2:00 a.m.. I reviewed the post NG tube placement x-ray and this still showed several dilated loops of small bowel in the upper abdomen. I related this to the patient. She did have some results from her Dulculax suppository but it was minimal. Denies much abdominal pain at this time. Review of Systems Review of Systems: All systems reviewed & are unremarkable except as noted in HPI and below Constitutional: Constitutional: Reports as per HPI, Denies chills, Denies fatigue and Denies fever(s) Eyes: Eyes: Reports no additional eye complaints ENT: Reports system reviewed and no additional complaints, except as documented Cardiovascular: Cardiovascular: Reports no additional cardiovascular complaints, Denies chest pain, Denies leg edema and Denies dyspnea Respiratory: Respiratory: Reports no additional respiratory complaints, Denies cough and Denies dyspnea Gastrointestinal: Gastrointestinal: Reports as per HPI, Reports no additional gastrointestinal complaints, Reports abdominal pain (lower), Denies melena, Denies bloating, Denies hematochezia and Denies vomiting Genitourinary: Genitourinary: Reports no additional female genitourinary complaints, Denies hematuria and Denies dysuria Musculoskeletal: Musculoskeletal: Reports no additional musculoskeletal complaints, Denies deformity, Denies joint swelling, Denies numbness and Denies tingling Integumentary/Breasts: Skin/Breast: Reports system reviewed and no additional complaints, except as docu Neurologic: Reports system reviewed and no additional complaints, except as documented, Denies focal weakness, Denies numbness and Denies tingling Endocrine: Endocrine: Denies fatigue Exam Const: General: cooperative, comfortable, no acute distress, alert and awake Nutritional Appearance: average body habitus Orientation/consciousness: patient oriented x3 HENMT: Head: normocephalic and atraumatic Ears: hearing grossly normal bilaterally Mouth: Yes moist
[2022-01-13] MEDS: MAGNESIUM HYDROXIDE SUSP 30 ML UDC FEED TUBE (16:33)
[2022-01-13 16:43] LABS: Glucose Point of Care 97 mg/dl (65-105)
[2022-01-13 19:49] VITALS: BP 111/74; PULSE 82; RESP 18; TEMP 36.2; O2SAT 100
[2022-01-14 00:56] VITALS: PULSE 74
[2022-01-14] MEDS: METOPROLOL TARTRATE INJ 5 MG/5 ML VIAL IV PUSH ×3 (00:56→16:51)
[2022-01-14 01:21] LABS: Glucose Point of Care 104 mg/dl (65-105)
[2022-01-14] MEDS: ONDANSETRON INJ 4 MG/2 ML VIAL IV PUSH ×3 (03:19→20:45)
[2022-01-14] MEDS: KCL 20 MEQ/D5/0.45% SOD CHL 1,000 ML 75 ML IV CONT (03:21)
[2022-01-14 05:30] LABS: Basophils Percent Auto 0.3 % (0.2-1.2); Eosinophils Absolute Auto 0.2 K/mm3 (0-0.3); Eosinophils Percent Auto 2.4 % (0-4.4); Immature Granulocyte Absolute 0.06 K/mm3 (0.00-0.031); Immature Granulocyte Percent A 0.6 % (0-0.5); Lymphocytes Absolute Auto 0.86 K/mm3 (0.9-3.2); Lymphocytes Percent Auto 8.8 % (18.3-44.2); Mean Corpuscular HGB Conc 33.3 g/dl (32-36); Mean Corpuscular Hemoglobin 31.7 pg (26-34); Mean Corpuscular Volume 95.1 fl (80-100); Mean Platelet Volume 11.9 fl (7.4-10.4); Monocytes Absolute Auto 1.4 K/mm3 (0.1-0.6); Monocytes Percent Auto 14.7 % (2.6-8.5); Neutrophils Absolute Auto 7.1 K/mm3 (1.3-6.7); Neutrophils Percent Auto 73.2 % (45.5-73.1); Platelet Count Result 110 k/mm3 (150-375); Red Blood Count 3.47 M/mm3 (4.2-5.4); Red Cell Distribution Width 13.9 % (11.5-14.5); White Blood Count 9.7 K/mm3 (4.5-10.0)
[2022-01-14 05:39] LABS: INR 1.2; Lactic Acid Reflex 0.8 mmol/L (0.7-2.1); Prothrombin Time 14.5 Seconds (11.1-14.7)
[2022-01-14 05:40] LABS: Anion Gap 2 mmol/L (8-16); Blood Urea Nitrogen 6 mg/dL (7-17); Calcium 8.2 mg/dL (8.4-10.2); Carbon Dioxide 33 mmol/L (22-30); Chloride 101 mmol/L (98-107); Estimated CRCL calculation 57 ml/min; Estimated Glomerular Filt Rate > 60; Glucose 120 mg/dL (65-110); Potassium 3.1 mmol/L (3.4-5.0); Sodium 136 mmol/L (137-145)
[2022-01-14 05:46] LABS: Prealbumin 10.7 mg/dL (17.6-36.0)
[2022-01-14 06:02] VITALS: BP 120/53; PULSE 72; RESP 16; TEMP 36.6; O2SAT 96
[2022-01-14 07:43] LABS: Glucose Point of Care 114 mg/dl (65-105)
[2022-01-14 08:46] VITALS: O2SAT 93
--- NOTE | 2022-01-14 08:59 | PM.PNCARD ---
Progress Note: A&P Assessment and Plan (1) Cardiomyopathy: Code(s): I42.9 - Cardiomyopathy, unspecified Status: Acute Assessment and Plan: Resume her standard CHF/cardiomyopathy medications when able to take oral medications. For now, she is receiving IV metoprolol (2) Cardiac dysrhythmia: Code(s): I49.9 - Cardiac arrhythmia, unspecified Status: Chronic Assessment and Plan: On metoprolol for now. Transition back to sotalol when able to take p.o. (3) Hypertension: Code(s): I10 - Essential (primary) hypertension Status: Acute Assessment and Plan: At goal (4) Small bowel obstruction: Code(s): K56.609 - Unspecified intestinal obstruction, unspecified as to partial versus complete obstruction Status: Acute Assessment and Plan: NG in place (5) Hypokalemia: Code(s): E87.6 - Hypokalemia Status: Acute Assessment and Plan: 3.1 this morning. This is being replaced Subjective Date/time seen: 01/14/22 08:59 Interval history: 71-YEAR-OLD ADMITTED FOR SMALL-BOWEL OBSTRUCTION. HAS SIGNIFICANT CARDIAC HISTORY. Date of service 01/12/2022: NG still in place. She has no chest pain, shortness of breath. Dealing with some anxiety. No edema Date of service 01/13/2022: No chest pain, shortness of breath, edema. NG still in place Date of service 01/14/2022: Feels about the same today. She does have some abdominal pain. Denies any chest pain, shortness breath, swelling. Review of Systems Constitutional: Constitutional: Reports no additional constitutional complaints Eyes: Eyes: Reports no additional eye complaints ENT: Reports system reviewed and no additional complaints, except as documented Cardiovascular: Cardiovascular: Reports as per HPI Respiratory: Respiratory: Reports no additional respiratory complaints Gastrointestinal: Gastrointestinal: Reports as per HPI and Reports abdominal pain Musculoskeletal: Musculoskeletal: Reports arthralgias Neurologic: Reports system reviewed and no additional complaints, except as documented Endocrine: Endocrine: Reports no additional endocrine complaints Hematologic/Lymphatic: Hematologic/Lymphatic: Reports no additional hematologic/lymphatic complaints Allergic/Immunologic: Allergic/Immunologic: Reports no additional allergic/immunologic complaints Exam Const: General: comfortable and no acute distress Other: Pleasant older lady lying comfortably in bed. NG tube in place. HENMT: Mouth: Yes moist mucous membranes Eyes: Sclera: sclerae normal Neck: Neck: supple and no JVD Other: Resp: Effort & Inspection: normal respiratory effort Auscultation: clear to auscultation bilaterally Cardio: Rate: regular rate Rhythm: regular rhythm Other: soft systolic murmur that does not radiate from the left sternal border GI: Other: Abdomen is soft, bowel sounds hypoactive. Skin: General skin exam: normal color Neuro: Cognition (Neuro): normal cognition Extrem: General: normal to inspection Other: no edema good distal pulses Objective Data Vital Signs Vital Signs: Vital Signs - 24 hr 01/13/22 14:00 01/13/22 19:49 01/14/22 00:56 Temperature 36.5 C 36.2 C L Pulse Rate 76 82 74 Respiratory Rate 16 18 Blood Pressure 129/62 111/74 Pulse Oximetry 97 100 01/14/22 06:02 01/14/22 08:46 Temperature 36.6 C Pulse Rate 72 Respiratory Rate 16 Blood Pressure 120/53 L Pulse Oximetry 96 93 Intake/Output Intake/Output: Intake & Output 01/11/22 01/12/22 01/13/22 01/14/22 23:59 23:59 23:59 23:59 Intake Total 2200 3200 1250 1050 Output Total 1350 1650 1100 1900 Balance 850 1550 150 -850 Meds/Results Medications: Active Medications Generic Name Dose Route Start Last Admin Trade Name Freq PRN Reason Stop Dose Admin Dextrose 12.5 gm 01/09/22 16:55 01/13/22 11:54 Dextrose 50% 25 Gm/50 Ml Syringe IV PUSH 12.5 gm PRN PRN Administration
[2022-01-14] MEDS: POTASSIUM CHLORIDE INJ 40 MEQ in SODIUM CHLORIDE 0.9% IV 500 ML 130 MEQ IVPB (09:11)
[2022-01-14] MEDS: ENOXAPARIN 40 MG/0.4 ML SYRINGE SUB-Q (09:13)
[2022-01-14] MEDS: LORazepam INJ (*CRX) 2 MG/ML VIAL 0.5 MG IV PUSH ×2 (09:35→20:24)
--- NOTE | 2022-01-14 09:45 | P.PNIM_ITS ---
Progress Note: A&P Assessment and Plan (1) Small bowel obstruction: Code(s): K56.609 - Unspecified intestinal obstruction, unspecified as to partial versus complete obstruction Status: Acute Assessment and Plan: * General surgery consulted to further evaluate small bowel obstruction if the patient needs surgical intervention or fails to improve with NG decompression. * NG tube to low intermittent suction * Attempted to clamp NG tube yesterday, trial failed. Patient developed nausea and vomiting. * Gentle IV fluid resuscitation given the patient's NPO status * Repeat KUB did not show significant changes. 01/15/2022 * Obstructive series ordered and pending * Should know about a possible surgical intervention if needed today * P.r.n. Anti emetics, avoid Reglan (2) Type 2 diabetes mellitus: Code(s): E11.9 - Type 2 diabetes mellitus without complications Status: Acute Assessment and Plan: * Glucose 120 * Insulin sliding scale * Hold oral hypoglycemics * while the patient remains NPO perform Accu-Cheks q.6 hours * D5 half-normal saline with 20 mEq of potassium added for NPO status * Trend glucose * Adjust therapy as indicated * Hold Ozempic as this would probably not be beneficial to her since it does slow gastric emptying (3) Cardiomyopathy: Code(s): I42.9 - Cardiomyopathy, unspecified Status: Acute Assessment and Plan: * history of a nonischemic cardiomyopathy status post Bi V ICD placement * most recent echo does show a normal systolic function with grade 1 diastolic dysfunction * resume cardiac medications once patient is able to tolerate oral intake * No signs or symptoms of heart failure at this time * Strict intake and output * Daily weights. * Cardiology was consulted for risk management prior to surgery * Patient's sotalol was on hold, continue beta-tracie replacement intravenously (4) Hypertension: Code(s): I10 - Essential (primary) hypertension Status: Acute Assessment and Plan: * Current BP is 120/53 * p.r.n. hydralazine available if systolic blood pressure greater than 180 * Patient's sotalol is on hold, continue beta-tracie replacement intravenously * Trend BP * Adjust therapy as indicated (5) Leukocytosis: Code(s): D72.829 - Elevated white blood cell count, unspecified Status: Acute Assessment and Plan: * leukocytosis noted * WBC are 9.7 today and seems stable * Continues to be afebrile. * Adding antibiotics empirically due to CT findings of inflammation vs ischemic bowel. * Administer Zosyn 3.375 mg q.6 hours, patient was started on antibiotics on 01/10/2022 * Continue to trend labs (6) Thrombocytopenia: Code(s): D69.6 - Thrombocytopenia, unspecified Status: Acute Assessment and Plan: * Current PLT 110 * monitor for signs and symptoms of blood loss or bleeding * Monitor CBC/platelet count * Decreasing (7) Hypokalemia: Code(s): E87.6 - Hypokalemia Status: Acute Assessment and Plan: * Monitor serum electrolytes * Replete as necessary * administer potassium chloride 40 mEq IVPB x1, K 3.1 * Patient has received 40 mEq of potassium chloride IV PB x3 days. * Changing IV fluids to D5 half-normal saline with 20 K Subjective Date/time seen: 01/14/22 0945 Interval history: 01/09/22 16:45 Narrative: Ms. Arguello
--- NOTE | 2022-01-14 09:45 | PM.IMPN ---
Progress Note: A&P Assessment and Plan (1) Small bowel obstruction: Code(s): K56.609 - Unspecified intestinal obstruction, unspecified as to partial versus complete obstruction Status: Acute Assessment and Plan: General surgery consulted to further evaluate small bowel obstruction if the patient needs surgical intervention or fails to improve with NG decompression. NG tube to low intermittent suction Attempted to clamp NG tube yesterday, trial failed. Patient developed nausea and vomiting. Gentle IV fluid resuscitation given the patient's NPO status Repeat KUB did not show significant changes. 01/15/2022 Obstructive series ordered and pending Should know about a possible surgical intervention if needed today P.r.n. Anti emetics, avoid Reglan (2) Type 2 diabetes mellitus: Code(s): E11.9 - Type 2 diabetes mellitus without complications Status: Acute Assessment and Plan: Glucose 120 Insulin sliding scale Hold oral hypoglycemics while the patient remains NPO perform Accu-Cheks q.6 hours D5 half-normal saline with 20 mEq of potassium added for NPO status Trend glucose Adjust therapy as indicated Hold Ozempic as this would probably not be beneficial to her since it does slow gastric emptying (3) Cardiomyopathy: Code(s): I42.9 - Cardiomyopathy, unspecified Status: Acute Assessment and Plan: history of a nonischemic cardiomyopathy status post Bi V ICD placement most recent echo does show a normal systolic function with grade 1 diastolic dysfunction resume cardiac medications once patient is able to tolerate oral intake No signs or symptoms of heart failure at this time Strict intake and output Daily weights. Cardiology was consulted for risk management prior to surgery Patient's sotalol was on hold, continue beta-tracie replacement intravenously (4) Hypertension: Code(s): I10 - Essential (primary) hypertension Status: Acute Assessment and Plan: Current BP is 120/53 p.r.n. hydralazine available if systolic blood pressure greater than 180 Patient's sotalol is on hold, continue beta-tracie replacement intravenously Trend BP Adjust therapy as indicated (5) Leukocytosis: Code(s): D72.829 - Elevated white blood cell count, unspecified Status: Acute Assessment and Plan: leukocytosis noted WBC are 9.7 today and seems stable Continues to be afebrile. Adding antibiotics empirically due to CT findings of inflammation vs ischemic bowel. Administer Zosyn 3.375 mg q.6 hours, patient was started on antibiotics on 01/10/2022 Continue to trend labs (6) Thrombocytopenia: Code(s): D69.6 - Thrombocytopenia, unspecified Status: Acute Assessment and Plan: Current PLT 110 monitor for signs and symptoms of blood loss or bleeding Monitor CBC/platelet count Decreasing (7) Hypokalemia: Code(s): E87.6 - Hypokalemia Status: Acute Assessment and Plan: Monitor serum electrolytes Replete as necessary administer potassium chloride 40 mEq IVPB x1, K 3.1 Patient has received 40 mEq of potassium chloride IV PB x3 days. Changing IV fluids to D5 half-normal saline with 20 K Subjective Date/time seen: 01/14/22 0945 Interval history: 01/09/22 16:45 Narrative: Ms. Pantoja is a 71-year-old female who presented emergency room with complaints of abdominal pain and nausea that started yesterday. Patient is in quite a bit of pain at this point and is not wanting to speak very long periods of time so it is somewhat difficult to get a history from her. Patient states that she began having nausea with dry heaves as well as lower abdominal pain yesterday. Patient states she has not had a bowel movement last few days, but this is not abnormal for her. Patient states that she was passing gas this morning. Patient states she has b
--- NOTE | 2022-01-14 10:48 | PM.PNGS ---
Progress Note: A&P Assessment and Plan (1) Small bowel obstruction: Code(s): K56.609 - Unspecified intestinal obstruction, unspecified as to partial versus complete obstruction Status: Acute Assessment and Plan: clinically benign exam, +bowel sounds but still no bowel fxn, will get SBS today, if no improvement will plan ex lap tomorrow Subjective Subjective Date/Time Seen: 01/14/22 10:48 feels a little better today Review of Systems Review of Systems: All systems reviewed & are unremarkable except as noted in HPI and below Exam Const: General: cooperative, comfortable and no acute distress Resp: Auscultation: clear to auscultation bilaterally Cardio: Rate: regular rate Rhythm: regular rhythm GI: Inspection: normal to inspection, no edema and distended GI Palp: No abdominal tenderness, Yes Soft to palpation, No Tenderness to palpation present (GI) and No Guarding due to palpation present (GI) Objective Data Vital Signs Vital Signs: Vital Signs - 24 hr 01/13/22 14:00 01/13/22 19:49 01/14/22 00:56 Temperature 36.5 C 36.2 C L Pulse Rate 76 82 74 Respiratory Rate 16 18 Blood Pressure 129/62 111/74 Pulse Oximetry 97 100 01/14/22 06:02 01/14/22 08:46 Temperature 36.6 C Pulse Rate 72 Respiratory Rate 16 Blood Pressure 120/53 L Pulse Oximetry 96 93 Intake/Output Intake/Output: Intake & Output 01/11/22 01/12/22 01/13/22 01/14/22 23:59 23:59 23:59 23:59 Intake Total 2200 3200 1250 1050 Output Total 1350 1650 1100 1900 Balance 850 1550 150 -850 Meds/Results Medications: Active Medications Generic Name Dose Route Start Last Admin Trade Name Freq PRN Reason Stop Dose Admin Dextrose 12.5 gm 01/09/22 16:55 01/13/22 11:54 Dextrose 50% 25 Gm/50 Ml Syringe IV PUSH 12.5 gm PRN PRN Administration Hypoglycemia Protocol Enoxaparin Sodium 40 mg 01/10/22 09:00 01/14/22 09:13 Enoxaparin 40 Mg/0.4 Ml Syringe SUB-Q 40 mg DAILY JEANNE Administration Glucagon 1 mg 01/09/22 16:55 Glucagon For Inj 1 Mg Vial IM PRN PRN Hypoglycemia Protocol Glucose 15 gm 01/09/22 16:55 Glucose Oral Gel 15 Gm Of Glucse In 37.5 Gm Tube PO PRN PRN Hypoglycemia Protocol Hydralazine HCl 10 mg 01/09/22 16:56 01/10/22 21:01 Hydralazine Hcl 20 Mg/Ml Vial IV PUSH 10 mg Q8H PRN Administration Blood Pressure - High Dextrose 1,000 mls @ 100 mls/hr 01/09/22 16:55 Dextrose 5% 1,000 Ml IVPB PRN PRN Hypoglycemia Protocol Piperacillin/Tazobactam/Dextrose 3.375 gm in 50 mls @ 100 mls/hr 01/10/22 10:00 01/14/22 09:46 Zosyn 3.375 Gm/D5w 50ml Pm IVPB 100 mls/hr Q6H JEANNE Administration Potassium Chloride/Dextrose/Sod Cl 1,000 mls @ 75 mls/hr 01/13/22 11:50 01/14/22 03:21 Kcl 20 Meq/D5/0.45% Sod Chl IV CONT 75 mls/hr .[id number] JEANNE Administration Potassium Chloride 40 meq/ 520 mls @ 130 mls/hr 01/14/22 08:30 01/14/22 09:11 Sodium Chloride IVPB 01/14/22 12:29 130 mls/hr ONCE ONE Administration Insulin Aspart 2 - 5 units 01/09/22 17:00 01/14/22 09:11 Insulin Aspart (*Bkc) 100 Units/Ml SUB-Q Not Given TIDWM JEANNE Protocol Lorazepam 0.5 mg 01/10/22 15:23 01/14/22 09:35 Lorazepam Inj (*Crx) 2 Mg/Ml Vial IV PUSH 0.5 mg Q6H PRN Administration Anxiety Metoprolol Tartrate 5 mg 01/11/22 08:35 01/14/22 09:12 Metoprolol Tartrate Inj 5 Mg/5 Ml Vial IV PUSH 5 mg Q8H JEANNE Administration Morphine Sulfate 2 mg 01/09/22 14:55 01/12/22 02:35 Morphine Sulfate (*Crx) 2 Mg/Ml Inj IV PUSH 2 mg Q2H PRN Administration Pain Rated 7-10 Ondansetron HCl 4 mg 01/09/22 14:55 01/14/22 03:19 Ondansetron Inj 4 Mg/2 Ml Vial IV PUSH 4 mg Q4H PRN Administration Nausea And Vomiting Phenol 1 spray 01/11/22 12:55 Phenol/Sod Pheno [place] (*Bkc) MUCOUS MEM PRN PRN Sore Throat Radiology Results: ITS Impressions Abdomen/Pel
[2022-01-14 11:24] VITALS: BMI 28.9
[2022-01-14 11:33] LABS: Glucose Point of Care 89 mg/dl (65-105)
[2022-01-14 15:08] VITALS: BP 114/70; PULSE 76; RESP 16; TEMP 36.7; O2SAT 97
[2022-01-14 16:29] LABS: Glucose Point of Care 101 mg/dl (65-105)
[2022-01-14 21:41] VITALS: BP 119/67; PULSE 78; RESP 18; TEMP 36.1; O2SAT 97
[2022-01-14 22:11] LABS: Glucose Point of Care 118 mg/dl (65-105)
[2022-01-15] VITALS (13 sets, daily range): BP systolic 115–158; BP diastolic 65–90; PULSE 70–109; RESP 14–20; TEMP 36.1–37.3; O2SAT 92–99
[2022-01-15] MEDS: KCL 20 MEQ/D5/0.45% SOD CHL 1,000 ML 75 ML IV CONT (00:56)
[2022-01-15] MEDS: ONDANSETRON INJ 4 MG/2 ML VIAL IV PUSH ×2 (00:56→16:43)
[2022-01-15] MEDS: METOPROLOL TARTRATE INJ 5 MG/5 ML VIAL IV PUSH ×2 (00:57→09:36)
[2022-01-15 05:58] LABS: Basophils Percent Auto 0.5 % (0.2-1.2); Eosinophils Absolute Auto 0.2 K/mm3 (0-0.3); Eosinophils Percent Auto 2.8 % (0-4.4); Hematocrit 34.3 % (37.0-47.0); Immature Granulocyte Absolute 0.05 K/mm3 (0.00-0.031); Immature Granulocyte Percent A 0.6 % (0-0.5); Lymphocytes Absolute Auto 1.59 K/mm3 (0.9-3.2); Lymphocytes Percent Auto 18.6 % (18.3-44.2); Mean Corpuscular HGB Conc 32.1 g/dl (32-36); Mean Corpuscular Hemoglobin 30.6 pg (26-34); Mean Corpuscular Volume 95.5 fl (80-100); Mean Platelet Volume 12.2 fl (7.4-10.4); Monocytes Absolute Auto 1.5 K/mm3 (0.1-0.6); Neutrophils Absolute Auto 5.2 K/mm3 (1.3-6.7); Neutrophils Percent Auto 60.5 % (45.5-73.1); Platelet Count Result 116 k/mm3 (150-375); Red Blood Count 3.59 M/mm3 (4.2-5.4); White Blood Count 8.5 K/mm3 (4.5-10.0)
[2022-01-15 06:10] LABS: Albumin Level 3.2 g/dL (3.5-5.1); Alkaline Phosphatase 46 U/L (38-126); Anion Gap 1 mmol/L (8-16); Aspartate Amino Transferase 21 U/L (14-36); Bilirubin,Total 0.5 mg/dL (0.2-1.3); Blood Urea Nitrogen 4 mg/dL (7-17); Calcium 8.6 mg/dL (8.4-10.2); Carbon Dioxide 34 mmol/L (22-30); Chloride 102 mmol/L (98-107); Estimated CRCL calculation 45 ml/min; Estimated Glomerular Filt Rate > 60; Glucose 107 mg/dL (65-110); Magnesium 1.7 mg/dL (1.6-2.3); Phosphorus 2.4 mg/dL (2.5-4.5); Potassium 3.3 mmol/L (3.4-5.0); Sodium 137 mmol/L (137-145)
[2022-01-15 06:11] LABS: Alanine Aminotransferase < 6 U/L (4-35)
[2022-01-15 06:18] LABS: Transferrin 144 mg/dL (206-381)
[2022-01-15 06:20] LABS: Glucose Point of Care 119 mg/dl (65-105)
[2022-01-15] MEDS: LIDOCAINE HCL 1% PF INJ 5 ML VIAL INFILTRATE (08:15)
--- NOTE | 2022-01-15 09:15 | P.PNIM_ITS ---
Progress Note: A&P Assessment and Plan (1) Small bowel obstruction: Code(s): K56.609 - Unspecified intestinal obstruction, unspecified as to partial versus complete obstruction Status: Acute Assessment and Plan: * General surgery consulted to further evaluate small bowel obstruction if the patient needs surgical intervention or fails to improve with NG decompression. * NG tube to low intermittent suction * Attempted to clamp NG tube yesterday, trial failed. Patient developed nausea and vomiting. * Gentle IV fluid resuscitation given the patient's NPO status * Repeat KUB did not show significant changes. 01/15/2022 * Obstructive series Persistent small bowel obstruction. * Surgical intervention scheduled for today * Remains NPO * P.r.n. Anti emetics, avoid Reglan (2) Type 2 diabetes mellitus: Code(s): E11.9 - Type 2 diabetes mellitus without complications Status: Acute Assessment and Plan: * Glucose 107 * Insulin sliding scale * Hold oral hypoglycemics * while the patient remains NPO perform Accu-Cheks q.6 hours * D5 half-normal saline with 20 mEq of potassium added for NPO status * Trend glucose * Adjust therapy as indicated * Hold Ozempic as this would probably not be beneficial to her since it does slow gastric emptying (3) Cardiomyopathy: Code(s): I42.9 - Cardiomyopathy, unspecified Status: Acute Assessment and Plan: * history of a nonischemic cardiomyopathy status post Bi V ICD placement * most recent echo does show a normal systolic function with grade 1 diastolic dysfunction * resume cardiac medications once patient is able to tolerate oral intake * No signs or symptoms of heart failure at this time * Strict intake and output * Daily weights. * Cardiology was consulted for risk management prior to surgery * Patient's sotalol was on hold, continue beta-tracie replacement intravenously (4) Hypertension: Code(s): I10 - Essential (primary) hypertension Status: Acute Assessment and Plan: * Current BP is 117/65 * p.r.n. hydralazine available if systolic blood pressure greater than 180 * Patient's sotalol is on hold, continue beta-tracie replacement intravenously * Trend BP * Adjust therapy as indicated (5) Leukocytosis: Code(s): D72.829 - Elevated white blood cell count, unspecified Status: Acute Assessment and Plan: * leukocytosis noted * WBC are 8.5 today and seems stable * Continues to be afebrile. * Adding antibiotics empirically due to CT findings of inflammation vs ischemic bowel. * Administer Zosyn 3.375 mg q.6 hours, patient was started on antibiotics on 01/10/2022 * Continue to trend labs (6) Thrombocytopenia: Code(s): D69.6 - Thrombocytopenia, unspecified Status: Acute Assessment and Plan: * Current PLT 116 * monitor for signs and symptoms of blood loss or bleeding * Monitor CBC/platelet count (7) Hypokalemia: Code(s): E87.6 - Hypokalemia Status: Acute Assessment and Plan: * Monitor serum electrolytes * Replete as necessary * administer potassium chloride 40 mEq IVPB x1, K 3.3 * Patient has received 40 mEq of potassium chloride IV PB x3 days. * Changing IV fluids to D5 half-normal saline with 20 K Time Spent With Patient Time with patient: Greater than 35 minutes Subjective Date/time seen: 01/15/22 0978
--- NOTE | 2022-01-15 09:15 | PM.IMPN ---
Progress Note: A&P Assessment and Plan (1) Small bowel obstruction: Code(s): K56.609 - Unspecified intestinal obstruction, unspecified as to partial versus complete obstruction Status: Acute Assessment and Plan: General surgery consulted to further evaluate small bowel obstruction if the patient needs surgical intervention or fails to improve with NG decompression. NG tube to low intermittent suction Attempted to clamp NG tube yesterday, trial failed. Patient developed nausea and vomiting. Gentle IV fluid resuscitation given the patient's NPO status Repeat KUB did not show significant changes. 01/15/2022 Obstructive series Persistent small bowel obstruction. Surgical intervention scheduled for today Remains NPO P.r.n. Anti emetics, avoid Reglan (2) Type 2 diabetes mellitus: Code(s): E11.9 - Type 2 diabetes mellitus without complications Status: Acute Assessment and Plan: Glucose 107 Insulin sliding scale Hold oral hypoglycemics while the patient remains NPO perform Accu-Cheks q.6 hours D5 half-normal saline with 20 mEq of potassium added for NPO status Trend glucose Adjust therapy as indicated Hold Ozempic as this would probably not be beneficial to her since it does slow gastric emptying (3) Cardiomyopathy: Code(s): I42.9 - Cardiomyopathy, unspecified Status: Acute Assessment and Plan: history of a nonischemic cardiomyopathy status post Bi V ICD placement most recent echo does show a normal systolic function with grade 1 diastolic dysfunction resume cardiac medications once patient is able to tolerate oral intake No signs or symptoms of heart failure at this time Strict intake and output Daily weights. Cardiology was consulted for risk management prior to surgery Patient's sotalol was on hold, continue beta-tracie replacement intravenously (4) Hypertension: Code(s): I10 - Essential (primary) hypertension Status: Acute Assessment and Plan: Current BP is 117/65 p.r.n. hydralazine available if systolic blood pressure greater than 180 Patient's sotalol is on hold, continue beta-tracie replacement intravenously Trend BP Adjust therapy as indicated (5) Leukocytosis: Code(s): D72.829 - Elevated white blood cell count, unspecified Status: Acute Assessment and Plan: leukocytosis noted WBC are 8.5 today and seems stable Continues to be afebrile. Adding antibiotics empirically due to CT findings of inflammation vs ischemic bowel. Administer Zosyn 3.375 mg q.6 hours, patient was started on antibiotics on 01/10/2022 Continue to trend labs (6) Thrombocytopenia: Code(s): D69.6 - Thrombocytopenia, unspecified Status: Acute Assessment and Plan: Current PLT 116 monitor for signs and symptoms of blood loss or bleeding Monitor CBC/platelet count (7) Hypokalemia: Code(s): E87.6 - Hypokalemia Status: Acute Assessment and Plan: Monitor serum electrolytes Replete as necessary administer potassium chloride 40 mEq IVPB x1, K 3.3 Patient has received 40 mEq of potassium chloride IV PB x3 days. Changing IV fluids to D5 half-normal saline with 20 K Time Spent With Patient Time with patient: Greater than 35 minutes Subjective Date/time seen: 01/15/22 0915 Interval history: 01/09/22 16:45 Narrative: Ms. Pantoja is a 71-year-old female who presented emergency room with complaints of abdominal pain and nausea that started yesterday. Patient is in quite a bit of pain at this point and is not wanting to speak very long periods of time so it is somewhat difficult to get a history from her. Patient states that she began having nausea with dry heaves as well as lower abdominal pain yesterday. Patient states she has not had a bowel movement last few days, but this is not abnormal for her. Patient states clary
[2022-01-15] MEDS: LORazepam INJ (*CRX) 2 MG/ML VIAL 0.5 MG IV PUSH ×2 (09:35→18:22)
[2022-01-15 11:44] LABS: Glucose Point of Care 109 mg/dl (65-105)
--- NOTE | 2022-01-15 12:12 | PCNFU ---
Nutrition Follow-Up Complete: Altered GI function as related to SBO as evidenced by NPO x 6 days. goal: Meet estimated nutritional needs Patient is progressing towards goal. We will continue current goal. Pt current nutrition is Clinimix E at 40 ml/hr. Last recorded weight is 69.2 kg-stable Bowel Motility: No BM reported. Labs Reviewed:Hgb 11.0,Hct 34.3, Alb 3.2, K 3.3 Meds Noted:Clinimix E at 40 ml/hr, 250 ml of 20% Lipid Emulsion, Lopressor, Zofran, KCL, Zosyn. Skin: WNL Additional Notes: Nutrition follow up. Patient NPO for possible surgery today. Recommend continuing TPN which is providing 1182 kcals and 48 gms protein. This is meeting 77% of caloric needs and 100% of protein needs. Agree with diet orders. Monitoring:Will monitor every Friday and Friday.
[2022-01-15 13:55] LABS: Triglycerides 94 mg/dL (<150)
--- NOTE | 2022-01-15 14:12 | WPDANESEPPF ---
Anes - Initial Pre Proc Eval Procedure: Operation Date: 01/15/22 15:00 Proposed Procedures p Exploratory Laparotomy, Possible Bowel Resection - Paula Pierre MD Date/Time: 01/15/22 14:12 Surgeon: Wesley Mott MD Pre Op Diagnosis: SBO Patient Data Age: 71 Gender: F Height: 1.55 m Weight: 69.2 kg Last Vital Signs Temp 36.1 C L 01/15/22 12:03 Pulse 83 01/15/22 12:03 Resp 14 01/15/22 12:03 BP 117/65 01/15/22 12:03 Pulse Ox 94 01/15/22 12:03 Allergies Allergy/AdvReac Type Severity Reaction Status Date / Time codeine AdvReac Severe Nausea and Verified 03/12/21 08:57 Vomiting meperidine [From Demerol] AdvReac Severe Nausea and Verified 03/12/21 08:57 Vomiting Home Medications Medication Instructions Recorded Confirmed Type glipizide 5 mg tablet 5 mg PO DAILY 11/08/20 01/09/22 History venlafaxine 75 mg tablet 75 mg PO DAILY 11/08/20 01/09/22 History Entresto 1 tablet PO BID 01/17/21 01/09/22 History Lokelma 5 g PO DAILY 01/17/21 01/09/22 History Ozempic 0.5 mg SUBCUT WEEKLY 01/17/21 01/09/22 History calcitriol 0.25 mcg PO DAILY 01/17/21 01/09/22 History magnesium oxide 400 mg PO BID 01/17/21 01/09/22 History montelukast 10 mg PO DAILY 01/17/21 01/09/22 History rosuvastatin 40 mg PO DAILY 01/17/21 01/09/22 History ergocalciferol (vitamin D2) 50,000 unit PO WEEKLY 02/26/21 01/09/22 History [Vitamin D2] alprazolam 0.5 mg PO DAILY PRN 01/09/22 01/09/22 History buspirone 10 mg PO BID 01/09/22 01/09/22 History levothyroxine [Euthyrox] 50 mcg PO DAILY 01/09/22 01/09/22 History loratadine 10 mg PO DAILY PRN 01/09/22 01/09/22 History polyethylene glycol 3350 [Miralax] 17 g PO DAILY PRN 01/09/22 01/09/22 History sotalol 80 mg PO BID 01/09/22 01/09/22 History Laboratory Tests 01/14/22 01/14/22 01/15/22 16:25 21:22 05:11 WBC 8.5 K/mm3 K/mm3 (4.5-10.0) RBC 3.59 M/mm3 L M/mm3 (4.2-5.4) Hgb 11.0 g/dL L g/dL (12.0-15.0) Hct 34.3 % L % (37.0-47.0) MCV 95.5 fl fl (80-100) MCH 30.6 pg pg (26-34) MCHC 32.1 g/dl g/dl (32-36) RDW 14.0 % % (11.5-14.5) Plt Count 116 k/mm3 L k/mm3 (150-375) MPV 12.2 fl H fl (7.4-10.4) Immature Gran % (Auto) 0.6 % H % (0-0.5) Neut % (Auto) 60.5 % % (45.5-73.1) Lymph % (Auto) 18.6 % % (18.3-44.2) Whitley % (Auto) 17.0 % H % (2.6-8.5) Eos % (Auto) 2.8 % % (0-4.4) Baso % (Auto) 0.5 % % (0.2-1.2) Lymph # (Auto) 1.59 K/mm3 K/mm3 (0.9-3.2) Whitley # (Auto) 1.5 K/mm3 H K/mm3 (0.1-0.6) Eos # (Auto) 0.2 K/mm3 K/mm3 (0-0.3) Baso # (Auto) 0.0 K/mm3 K/mm3 (0.0-0.1) Abs Immat Gran (auto) 0.05 K/mm3 H K/mm3 (0.00-0.031) Absolute Neuts (auto) 5.2 K/mm3 K/mm3 (1.3-6.7) Absolute Nucleated RBC 0.0 K/mm3 K/mm3 (0.0-0.012) Nucleated RBC % 0.0 % % (0.0-0.2) Sodium Potassium Chloride Carbon Dioxide Anion Gap BUN Creatinine Estim Creat Clear Calc Estimated GFR Glucose POC Capillary Glucose 101 mg/dl mg/dl 118 mg/dl H mg/dl (65-105) (65-105) Calcium Phosphorus Magnesium Transferrin Total Bilirubin AST ALT Alkaline Phosphatase Total Protein Albumin Triglycerides 01/15/22 01/15/22 01/15/22 05:11 05:34 11:40 WBC RBC Hgb Hct MCV MCH MCHC RDW Plt Count MPV Immature Gran % (Auto) Neut % (Auto) Lymph % (Auto) Whitley % (Auto) Eos % (Auto) Baso % (Auto)
[2022-01-15] MEDS: LACTATED RINGERS 1,000 ML 30 ML IV CONT (14:27)
--- NOTE | 2022-01-15 14:27 | WPDHPUPDATE1 ---
History and Physical Update Update Date/Time: 01/15/22 14:27 History and Physical has been reviewed, including an updated exam of the patient. There are NO changes in the patient's condition. Risks, benefits, and alternatives have been discussed and questions answered. Patient agrees to proceed with procedure.
[2022-01-15] MEDS: MAGNESIUM SULF 2 GM/WATER 50ML 2 GM/50 ML BAG IVPB (14:33)
--- NOTE | 2022-01-15 16:30 | P.OP_ITS ---
Procedure Note - Detailed Date of Procedure 01/15/22 Pre-op Diagnosis SBO Post-op Diagnosis Same Procedure Performed exploratory laparotomy, lysis of adhesions of approximately 15 minutes, small- bowel resection Surgeon Paula Pierre MD Anesthesia General Indications 71-year-old female with persistent small-bowel obstruction Findings complete bowel obstruction in the mid to distal jejunum secondary to adhesion, ischemia noted in small-bowel, small enterotomy Description of Procedure The patient was taken to the operating room placed in the supine position. After adequate induction of general anesthesia, the patient was prepped and draped in the normal sterile fashion. A time-out was then done to verify the patient's identity, as well as the procedure being performed. I began by making a small midline incision and carried this down into the peritoneal cavity. Upon entering the peritoneum, a moderate amount of ascites was encountered. I then began examining the small intestine. I was able to find the ligament of Treitz and followed the dilated small intestine distally. At about the level of the mid to distal jejunum there was a dense adhesion. Distal to this area, the small intestine was noted to be completely decompressed. At this point I began a lysis of adhesions to free up this area. Upon dissection and bringing the bowel into the operative field, it was noted that this section of bowel was ischemic. There was noted to be some mesenteric tearing from the adhesions as well. Once I was able to free this bowel loop up, there was noted to be a small enterotomy. Given this and the ischemia, a small-bowel resection was done of this loop. This was done with TERRA 55 x2. I then performed a [id number] functional end-to-end anastomosis using a TERRA 55 followed by Tx 60 stapler. Mesenteric defect was closed with a running 3-0 silk suture and the staple line was oversewed with 3-0 silk suture. The anastomosis was noted to be tension- free and widely patent. I then copiously irrigated the abdomen, no other pathology was encountered. I then was able to run the entire small bowel and colon and no other areas of concern were noted. I then closed the incision with a looped PDS at the fascial level. The subcutaneous tissue was closed with 3-0 Vicryl suture. The skin was closed with 4-0 Monocryl subcuticular suture. Dermabond was then placed on the wound. The patient tolerated the procedure well and was extubated in the operating room postop. She will be sent to the recovery room in stable condition. Estimated Blood Loss 25 Urine Output 100 Drains No Packing No Pathology Yes Complications No immediate complications Condition Stable Disposition PACU
[2022-01-15] MEDS: fentaNYL CITRATE INJ (*CRX) 100 MCG/2 ML VIAL 25 MCG IV PUSH ×4 (16:50→17:23)
[2022-01-15 16:55] LABS: Glucose Point of Care 134 mg/dl (65-105)
[2022-01-15] MEDS: AMINO ACIDS 5%/D15W/E-LYTES/CA 2,000 ML with MULTIVITAMINS-12 INJ VIAL 1 2.5 ML, MULTIV... 40 ML IV CONT (18:00)
[2022-01-15] MEDS: FAT EMULSIONS IV 20% 250 ML 20.83 ML IVPB (18:01)
[2022-01-15] MEDS: MORPHINE SULFATE (*CRX) 2 MG/ML INJ IV PUSH (18:07)
[2022-01-15] MEDS: KCL 20 MEQ/D5/0.45% SOD CHL 1,000 ML 35 ML IV CONT (20:20)
[2022-01-15] MEDS: CENTRAL LINE FLUSH 10 ML IV PUSH (20:21)
[2022-01-16 00:10] VITALS: PULSE 110
[2022-01-16] MEDS: METOPROLOL TARTRATE INJ 5 MG/5 ML VIAL IV PUSH ×3 (00:10→17:14)
[2022-01-16 00:19] LABS: Glucose Point of Care 185 mg/dl (65-105)
[2022-01-16 04:00] VITALS: BP 106/62; PULSE 95; RESP 18; TEMP 36.3; O2SAT 97
[2022-01-16] MEDS: CENTRAL LINE FLUSH 10 ML IV PUSH ×3 (05:20→20:47)
[2022-01-16 06:05] LABS: Anion Gap 1 mmol/L (8-16); Blood Urea Nitrogen 9 mg/dL (7-17); Calcium 8.3 mg/dL (8.4-10.2); Carbon Dioxide 29 mmol/L (22-30); Chloride 102 mmol/L (98-107); Estimated CRCL calculation 50 ml/min; Estimated Glomerular Filt Rate > 60; Glucose 161 mg/dL (65-110); Phosphorus 2.7 mg/dL (2.5-4.5); Potassium 3.9 mmol/L (3.4-5.0); Sodium 132 mmol/L (137-145)
[2022-01-16] MEDS: LORazepam INJ (*CRX) 2 MG/ML VIAL 0.5 MG IV PUSH ×2 (07:32→17:42)
[2022-01-16] MEDS: KCL 20 MEQ/D5/0.45% SOD CHL 1,000 ML 35 ML IV CONT (07:33)
[2022-01-16 07:44] LABS: Glucose Point of Care 154 mg/dl (65-105)
--- NOTE | 2022-01-16 07:52 | WPDANESPN ---
Anes - Prog Note Post-Op Date/Time: 01/16/22 07:52 Cardiovascular status: normal Respiratory status: normal Airway patency: baseline Mental status: baseline Post-Op hydration status: normal Vital Signs: Last Vital Signs Temp 97.3 F L 01/16/22 04:00 Pulse 95 01/16/22 04:00 Resp 18 01/16/22 04:00 BP 106/62 01/16/22 04:00 Pulse Ox 97 01/16/22 04:00 Pain Score (VAS): 10 I/O: Intake & Output 01/15/22 01/15/22 01/16/22 15:59 23:59 07:59 Intake Total 3677 008 6049 Output Total 100 850 Balance 1050 750 150 Laboratory Tests 01/15/22 05:11 01/16/22 05:27 01/15/22 01/15/22 01/15/22 11:40 13:12 16:52 Sodium Potassium Chloride Carbon Dioxide Anion Gap BUN Creatinine Estim Creat Clear Calc Estimated GFR Glucose POC Capillary Glucose 109 H 134 H Calcium Phosphorus Triglycerides 94 01/16/22 01/16/22 01/16/22 00:15 05:27 07:41 Sodium 132 L Potassium 3.9 Chloride 102 Carbon Dioxide 29 Anion Gap 1 L BUN 9 D Creatinine 0.80 Estim Creat Clear Calc 50 Estimated GFR > 60 Glucose 161 H POC Capillary Glucose 185 H 154 H Calcium 8.3 L Phosphorus 2.7 Triglycerides Post-procedural complaints: none Patient Feedback: Patient satisfied with anesthetic care.
[2022-01-16] MEDS: ENOXAPARIN 40 MG/0.4 ML SYRINGE SUB-Q (08:25)
[2022-01-16 08:41] VITALS: BP 109/69; PULSE 92; RESP 16; TEMP 36.3; O2SAT 97
--- NOTE | 2022-01-16 10:00 | P.PNIM_ITS ---
Progress Note: A&P Assessment and Plan (1) Small bowel obstruction: Code(s): K56.609 - Unspecified intestinal obstruction, unspecified as to partial versus complete obstruction Status: Acute Assessment and Plan: * General surgery consulted to further evaluate small bowel obstruction if the patient needs surgical intervention or fails to improve with NG decompression. * NG tube to low intermittent suction, which contiues * Gentle IV fluid resuscitation given the patient's NPO status * Repeat KUB did not show significant changes. 01/15/2022 * Obstructive series Persistent small bowel obstruction. * Surgical intervention was performed on 01/15/22 * Pain medications on board * to manage post op care * Remains NPO * P.r.n. Anti emetics, avoid Reglan (2) Type 2 diabetes mellitus: Code(s): E11.9 - Type 2 diabetes mellitus without complications Status: Acute Assessment and Plan: * Glucose 161 * Insulin sliding scale * Hold oral hypoglycemics * while the patient remains NPO perform Accu-Cheks q.6 hours * D5 half-normal saline with 20 mEq of potassium added for NPO status * Trend glucose * Adjust therapy as indicated * Hold Ozempic as this would probably not be beneficial to her since it does slow gastric emptying (3) Cardiomyopathy: Code(s): I42.9 - Cardiomyopathy, unspecified Status: Acute Assessment and Plan: * history of a nonischemic cardiomyopathy status post Bi V ICD placement * most recent echo does show a normal systolic function with grade 1 diastolic dysfunction * resume cardiac medications once patient is able to tolerate oral intake * No signs or symptoms of heart failure at this time * Strict intake and output * Daily weights. * Cardiology was consulted for risk management prior to surgery * Patient's sotalol was on hold, continue beta-tracie replacement intravenously (4) Hypertension: Code(s): I10 - Essential (primary) hypertension Status: Acute Assessment and Plan: * Current BP is 109/69 * p.r.n. hydralazine available if systolic blood pressure greater than 180 * Patient's sotalol is on hold, continue beta-tracie replacement intravenously * Trend BP * Adjust therapy as indicated (5) Leukocytosis: Code(s): D72.829 - Elevated white blood cell count, unspecified Status: Acute Assessment and Plan: * leukocytosis noted * WBC are 8.5 (01/16/22) and seems stable * Continues to be afebrile. * Adding antibiotics empirically due to CT findings of inflammation vs ischemic bowel. * Administer Zosyn 3.375 mg q.6 hours, patient was started on antibiotics on 01/10/2022 * Continue to trend labs (6) Thrombocytopenia: Code(s): D69.6 - Thrombocytopenia, unspecified Status: Acute Assessment and Plan: * Current PLT 116 (01/16/22) * monitor for signs and symptoms of blood loss or bleeding * Monitor CBC/platelet count (7) Hypokalemia: Code(s): E87.6 - Hypokalemia Status: Acute Assessment and Plan: * Monitor serum electrolytes * Replete as necessary * administer potassium chloride 40 mEq IVPB x1, K 3.3 * Patient has received 40 mEq of potassium chloride IV PB x3 days. * Changing IV fluids to D5 half-normal saline with 20 K Subjective Date/time seen: 01/16/22 10:00 Interval history: 01/09/22 16:45 Narrative: Ms. Pantoja is a 71-ye
--- NOTE | 2022-01-16 10:00 | PM.IMPN ---
Progress Note: A&P Assessment and Plan (1) Small bowel obstruction: Code(s): K56.609 - Unspecified intestinal obstruction, unspecified as to partial versus complete obstruction Status: Acute Assessment and Plan: General surgery consulted to further evaluate small bowel obstruction if the patient needs surgical intervention or fails to improve with NG decompression. NG tube to low intermittent suction, which contiues Gentle IV fluid resuscitation given the patient's NPO status Repeat KUB did not show significant changes. 01/15/2022 Obstructive series Persistent small bowel obstruction. Surgical intervention was performed on 01/15/22 Pain medications on board GS to manage post op care Remains NPO P.r.n. Anti emetics, avoid Reglan (2) Type 2 diabetes mellitus: Code(s): E11.9 - Type 2 diabetes mellitus without complications Status: Acute Assessment and Plan: Glucose 161 Insulin sliding scale Hold oral hypoglycemics while the patient remains NPO perform Accu-Cheks q.6 hours D5 half-normal saline with 20 mEq of potassium added for NPO status Trend glucose Adjust therapy as indicated Hold Ozempic as this would probably not be beneficial to her since it does slow gastric emptying (3) Cardiomyopathy: Code(s): I42.9 - Cardiomyopathy, unspecified Status: Acute Assessment and Plan: history of a nonischemic cardiomyopathy status post Bi V ICD placement most recent echo does show a normal systolic function with grade 1 diastolic dysfunction resume cardiac medications once patient is able to tolerate oral intake No signs or symptoms of heart failure at this time Strict intake and output Daily weights. Cardiology was consulted for risk management prior to surgery Patient's sotalol was on hold, continue beta-tracie replacement intravenously (4) Hypertension: Code(s): I10 - Essential (primary) hypertension Status: Acute Assessment and Plan: Current BP is 109/69 p.r.n. hydralazine available if systolic blood pressure greater than 180 Patient's sotalol is on hold, continue beta-tracie replacement intravenously Trend BP Adjust therapy as indicated (5) Leukocytosis: Code(s): D72.829 - Elevated white blood cell count, unspecified Status: Acute Assessment and Plan: leukocytosis noted WBC are 8.5 (01/16/22) and seems stable Continues to be afebrile. Adding antibiotics empirically due to CT findings of inflammation vs ischemic bowel. Administer Zosyn 3.375 mg q.6 hours, patient was started on antibiotics on 01/10/2022 Continue to trend labs (6) Thrombocytopenia: Code(s): D69.6 - Thrombocytopenia, unspecified Status: Acute Assessment and Plan: Current PLT 116 (01/16/22) monitor for signs and symptoms of blood loss or bleeding Monitor CBC/platelet count (7) Hypokalemia: Code(s): E87.6 - Hypokalemia Status: Acute Assessment and Plan: Monitor serum electrolytes Replete as necessary administer potassium chloride 40 mEq IVPB x1, K 3.3 Patient has received 40 mEq of potassium chloride IV PB x3 days. Changing IV fluids to D5 half-normal saline with 20 K Subjective Date/time seen: 01/16/22 10:00 Interval history: 01/09/22 16:45 Narrative: Ms. Pantoja is a 71-year-old female who presented emergency room with complaints of abdominal pain and nausea that started yesterday. Patient is in quite a bit of pain at this point and is not wanting to speak very long periods of time so it is somewhat difficult to get a history from her. Patient states that she began having nausea with dry heaves as well as lower abdominal pain yesterday. Patient states she has not had a bowel movement last few days, but this is not abnormal for her. Patient states that she was passing gas this morning. Patient states she has been having
[2022-01-16 11:28] LABS: Glucose Point of Care 132 mg/dl (65-105)
--- NOTE | 2022-01-16 11:37 | PM.PNGS ---
Progress Note: A&P Assessment and Plan (1) Small bowel obstruction: Code(s): K56.609 - Unspecified intestinal obstruction, unspecified as to partial versus complete obstruction Status: Acute Assessment and Plan: stable, await ROBF, cont NG, bowel rest for now, cont TPN, encourage OOB/IS Subjective Subjective Date/Time Seen: 01/16/22 11:37 feels ok, incisional soreness, no bowel fxn Review of Systems Review of Systems: All systems reviewed & are unremarkable except as noted in HPI and below Exam Const: General: cooperative, comfortable and no acute distress Orientation/consciousness: patient oriented x3 Resp: Auscultation: clear to auscultation bilaterally Cardio: Rate: regular rate Rhythm: regular rhythm GI: Inspection: normal to inspection, non-distended and incision GI Palp: Yes Soft to palpation, Yes Tenderness to palpation present (GI), No Guarding due to palpation present (GI) and No Rigid due to palpation Objective Data Vital Signs Vital Signs: Vital Signs - 24 hr 01/15/22 12:03 01/15/22 14:20 01/15/22 16:40 Temperature 36.1 C L 36.8 C 36.7 C Pulse Rate 83 83 90 Respiratory Rate 14 16 16 Blood Pressure 117/65 127/66 156/79 H Pulse Oximetry 94 97 99 01/15/22 16:55 01/15/22 17:10 01/15/22 17:25 Temperature Pulse Rate 84 85 91 Respiratory Rate 20 20 16 Blood Pressure 158/90 H 126/70 135/79 Pulse Oximetry 97 92 92 01/15/22 18:00 01/15/22 18:15 01/15/22 18:45 Temperature 36.7 C 36.8 C 37.3 C Pulse Rate 95 97 105 H Respiratory Rate 20 18 16 Blood Pressure 129/65 129/69 121/74 Pulse Oximetry 96 98 97 01/15/22 19:45 01/15/22 23:45 01/16/22 00:10 Temperature 36.1 C L 36.2 C L Pulse Rate 109 H 70 110 H Respiratory Rate 18 20 Blood Pressure 128/82 115/69 Pulse Oximetry 96 99 01/16/22 04:00 01/16/22 08:41 Temperature 36.3 C L 36.3 C L Pulse Rate 95 92 Respiratory Rate 18 16 Blood Pressure 106/62 109/69 Pulse Oximetry 97 97 Intake/Output Intake/Output: Intake & Output 01/13/22 01/14/22 01/15/22 01/16/22 23:59 23:59 23:59 23:59 Intake Total 1250 2200 1950 1000 Output Total 1100 4200 200 850 Balance 150 -2000 1750 150 Meds/Results Medications: Active Medications Generic Name Dose Route Start Last Admin Trade Name Freq PRN Reason Stop Dose Admin Dextrose 12.5 gm 01/09/22 16:55 01/13/22 11:54 Dextrose 50% 25 Gm/50 Ml Syringe IV PUSH 12.5 gm PRN PRN Administration Hypoglycemia Protocol Enoxaparin Sodium 40 mg 01/10/22 09:00 01/16/22 08:25 Enoxaparin 40 Mg/0.4 Ml Syringe SUB-Q 40 mg DAILY JEANNE Administration Glucagon 1 mg 01/09/22 16:55 Glucagon For Inj 1 Mg Vial IM PRN PRN Hypoglycemia Protocol Glucose 15 gm 01/09/22 16:55 Glucose Oral Gel 15 Gm Of Glucse In 37.5 Gm Tube PO PRN PRN Hypoglycemia Protocol Hydralazine HCl 10 mg 01/09/22 16:56 01/10/22 21:01 Hydralazine Hcl 20 Mg/Ml Vial IV PUSH 10 mg Q8H PRN Administration Blood Pressure - High Dextrose 1,000 mls @ 100 mls/hr 01/09/22 16:55 Dextrose 5% 1,000 Ml IVPB PRN PRN Hypoglycemia Protocol Potassium Chloride/Dextrose/Sod Cl 1,000 mls @ 75 mls/hr 01/13/22 11:50 01/16/22 07:33 Kcl 20 Meq/D5/0.45% Sod Chl IV CONT 35 mls/hr .[id number] JEANNE Administration Dextrose 1,000 mls @ 50 mls/hr 01/14/22 13:36 Dextrose 10% IV CONT .Q20H PRN if PN is interrupted Multivitamins 2.5 ml/ 2,005 mls @ 40 mls/hr 01/14/22 18:00 01/15/22 18:00 Multivitamins 2.5 ml/ Amino IV CONT 40 mls/hr Acids/Electrolytes/Dextrose .Q24H JEANNE Administration Protocol Fat Emulsion Intravenous 250 mls @ 20.833 mls/hr 01/14/22 18:00 01/15/22 18:01 Lipids 20% IVPB 20.83 mls/hr Q24H JEANNE Administration Insulin Aspart 2 - 5 units 01/09/22 17:00 01/16/22 07:33 Insulin Aspart (*Bkc) 100 Units/Ml SUB-Q Not Given TIDWM JEANNE Protocol Lorazepam 0.5 mg 01/10/22 15:23
[2022-01-16] MEDS: ONDANSETRON INJ 4 MG/2 ML VIAL IV PUSH (12:12)
[2022-01-16] MEDS: MORPHINE SULFATE (*CRX) 2 MG/ML INJ IV PUSH ×3 (12:12→21:04)
--- NOTE | 2022-01-16 13:07 | PM.PNCARD ---
Progress Note: A&P Assessment and Plan (1) Cardiomyopathy: Code(s): I42.9 - Cardiomyopathy, unspecified Status: Acute Assessment and Plan: Resume her standard CHF/cardiomyopathy medications when able to take oral medications. For now, she is receiving IV metoprolol (2) Cardiac dysrhythmia: Code(s): I49.9 - Cardiac arrhythmia, unspecified Status: Chronic Assessment and Plan: On metoprolol for now. Transition back to sotalol when able to take p.o. (3) Hypertension: Code(s): I10 - Essential (primary) hypertension Status: Acute Assessment and Plan: At goal (4) Small bowel obstruction: Code(s): K56.609 - Unspecified intestinal obstruction, unspecified as to partial versus complete obstruction Status: Acute Assessment and Plan: NG in place (5) Hypokalemia: Code(s): E87.6 - Hypokalemia Status: Acute Assessment and Plan: Normal Subjective Date/time seen: 01/16/22 13:07 Interval history: 71-YEAR-OLD ADMITTED FOR SMALL-BOWEL OBSTRUCTION. HAS SIGNIFICANT CARDIAC HISTORY. Date of service 01/12/2022: NG still in place. She has no chest pain, shortness of breath. Dealing with some anxiety. No edema Date of service 01/13/2022: No chest pain, shortness of breath, edema. NG still in place Date of service 01/14/2022: Feels about the same today. She does have some abdominal pain. Denies any chest pain, shortness breath, swelling. Date of service 01/16/2022: Status post surgery yesterday. Still NG in place but feels okay but in pain in abdomen. No chest pain though or shortness of breath Review of Systems Constitutional: Constitutional: Reports no additional constitutional complaints Eyes: Eyes: Reports no additional eye complaints ENT: Reports system reviewed and no additional complaints, except as documented Cardiovascular: Cardiovascular: Reports as per HPI Respiratory: Respiratory: Reports no additional respiratory complaints Gastrointestinal: Gastrointestinal: Reports as per HPI and Reports abdominal pain Musculoskeletal: Musculoskeletal: Reports arthralgias Neurologic: Reports system reviewed and no additional complaints, except as documented Endocrine: Endocrine: Reports no additional endocrine complaints Hematologic/Lymphatic: Hematologic/Lymphatic: Reports no additional hematologic/lymphatic complaints Allergic/Immunologic: Allergic/Immunologic: Reports no additional allergic/immunologic complaints Exam Const: General: comfortable and no acute distress Other: Pleasant older lady lying comfortably in bed. NG tube in place. HENMT: Mouth: Yes moist mucous membranes Eyes: Sclera: sclerae normal Neck: Neck: supple and no JVD Other: Resp: Effort & Inspection: normal respiratory effort Auscultation: clear to auscultation bilaterally Cardio: Rate: regular rate Rhythm: regular rhythm Other: soft systolic murmur that does not radiate from the left sternal border GI: Other: Abdomen is soft, bowel sounds hypoactive. Skin: General skin exam: normal color Neuro: Cognition (Neuro): normal cognition Extrem: General: normal to inspection Other: no edema good distal pulses Objective Data Vital Signs Vital Signs: Vital Signs - 24 hr 01/15/22 14:20 01/15/22 16:40 01/15/22 16:55 Temperature 36.8 C 36.7 C Pulse Rate 83 90 84 Respiratory Rate 16 16 20 Blood Pressure 127/66 156/79 H 158/90 H Pulse Oximetry 97 99 97 01/15/22 17:10 01/15/22 17:25 01/15/22 18:00 Temperature 36.7 C Pulse Rate 85 91 95 Respiratory Rate 20 16 20 Blood Pressure 126/70 135/79 129/65 Pulse Oximetry 92 92 96 01/15/22 18:15 01/15/22 18:45 01/15/22 19:45 Temperature 36.8 C 37.3 C 36.1 C L Pulse Rate 97 105 H 109 H Respiratory Rate 18 16 18 Blood Pressure 129/69 121/74 128/82 Pulse Oximetry 98 97 96 01/15/22 23:45 01/16/22 00:10 01/16/22 04:00 Temperature 36.2 C L 36.3 C L Pulse Rate 70 110 H
[2022-01-16 16:28] LABS: Glucose Point of Care 111 mg/dl (65-105)
[2022-01-16] MEDS: FAT EMULSIONS IV 20% 250 ML 20.83 ML IVPB (17:46)
[2022-01-16] MEDS: AMINO ACIDS 5%/D15W/E-LYTES/CA 2,000 ML with MULTIVITAMINS-12 INJ VIAL 1 2.5 ML, MULTIV... 40 ML IV CONT (17:47)
[2022-01-16 17:55] VITALS: BP 119/59; PULSE 74; RESP 18; TEMP 36.7; O2SAT 97
[2022-01-16 21:25] LABS: Glucose Point of Care 123 mg/dl (65-105)
[2022-01-17] MEDS: KCL 20 MEQ/D5/0.45% SOD CHL 1,000 ML 35 ML IV CONT (00:29)
[2022-01-17 00:30] VITALS: PULSE 90
[2022-01-17] MEDS: METOPROLOL TARTRATE INJ 5 MG/5 ML VIAL IV PUSH ×3 (00:30→16:44)
[2022-01-17] MEDS: MORPHINE SULFATE (*CRX) 2 MG/ML INJ IV PUSH ×5 (02:11→19:59)
[2022-01-17 02:16] LABS: Glucose Point of Care 118 mg/dl (65-105)
[2022-01-17] MEDS: CENTRAL LINE FLUSH 10 ML IV PUSH ×3 (05:23→22:00)
[2022-01-17 05:35] LABS: Basophils Absolute Auto 0.1 K/mm3 (0.0-0.1); Basophils Percent Auto 0.4 % (0.2-1.2); Eosinophils Absolute Auto 0.5 K/mm3 (0-0.3); Eosinophils Percent Auto 3.8 % (0-4.4); Hemoglobin 10.9 g/dL (12.0-15.0); Immature Granulocyte Absolute 0.15 K/mm3 (0.00-0.031); Immature Granulocyte Percent A 1.1 % (0-0.5); Lymphocytes Absolute Auto 1.51 K/mm3 (0.9-3.2); Lymphocytes Percent Auto 11.3 % (18.3-44.2); Mean Corpuscular Hemoglobin 31.7 pg (26-34); Mean Corpuscular Volume 95.9 fl (80-100); Mean Platelet Volume 12.7 fl (7.4-10.4); Monocytes Absolute Auto 1.8 K/mm3 (0.1-0.6); Monocytes Percent Auto 13.4 % (2.6-8.5); Neutrophils Absolute Auto 9.3 K/mm3 (1.3-6.7); Platelet Count Result 113 k/mm3 (150-375); Red Blood Count 3.44 M/mm3 (4.2-5.4); Red Cell Distribution Width 14.2 % (11.5-14.5); White Blood Count 13.3 K/mm3 (4.5-10.0)
[2022-01-17 05:49] LABS: Albumin Level 2.7 g/dL (3.5-5.1); Alkaline Phosphatase 32 U/L (38-126); Anion Gap 0 mmol/L (8-16); Aspartate Amino Transferase 19 U/L (14-36); Bilirubin,Total 0.5 mg/dL (0.2-1.3); Blood Urea Nitrogen 13 mg/dL (7-17); Carbon Dioxide 31 mmol/L (22-30); Chloride 102 mmol/L (98-107); Estimated CRCL calculation 56 ml/min; Estimated Glomerular Filt Rate > 60; Glucose 113 mg/dL (65-110); Magnesium 1.7 mg/dL (1.6-2.3); Phosphorus 2.8 mg/dL (2.5-4.5); Potassium 3.8 mmol/L (3.4-5.0); Sodium 133 mmol/L (137-145)
[2022-01-17 06:00] VITALS: BP 100/59; PULSE 100; RESP 18; TEMP 36.2; O2SAT 93
[2022-01-17 07:57] LABS: Alanine Aminotransferase < 6 U/L (4-35)
[2022-01-17 08:08] VITALS: PULSE 100
[2022-01-17] MEDS: ENOXAPARIN 40 MG/0.4 ML SYRINGE SUB-Q (08:08)
[2022-01-17] MEDS: ONDANSETRON INJ 4 MG/2 ML VIAL IV PUSH ×3 (08:19→20:06)
[2022-01-17 08:29] LABS: Triglycerides 140 mg/dL (<150)
[2022-01-17] MEDS: MAGNESIUM SULF 4 GM/WATER100ML 4 GM/100 ML BAG IVPB (09:20)
--- NOTE | 2022-01-17 10:30 | PM.IMPN ---
Progress Note: A&P Assessment and Plan (1) Small bowel obstruction: Code(s): K56.609 - Unspecified intestinal obstruction, unspecified as to partial versus complete obstruction Status: Acute Assessment and Plan: General surgery consulted to further evaluate small bowel obstruction if the patient needs surgical intervention or fails to improve with NG decompression. NG tube to low intermittent suction, which contiues Gentle IV fluid resuscitation given the patient's NPO status Repeat KUB did not show significant changes. 01/15/2022 Obstructive series Persistent small bowel obstruction. Surgical intervention was performed on 01/15/22 Pain medications on board GS to manage post op care Remains NPO P.r.n. Anti emetics, avoid Reglan (2) Type 2 diabetes mellitus: Code(s): E11.9 - Type 2 diabetes mellitus without complications Status: Acute Assessment and Plan: Glucose 113 Insulin sliding scale Hold oral hypoglycemics while the patient remains NPO perform Accu-Cheks q.6 hours D5 half-normal saline with 20 mEq of potassium added for NPO status Trend glucose Adjust therapy as indicated Hold Ozempic as this would probably not be beneficial to her since it does slow gastric emptying (3) Cardiomyopathy: Code(s): I42.9 - Cardiomyopathy, unspecified Status: Acute Assessment and Plan: history of a nonischemic cardiomyopathy status post Bi V ICD placement most recent echo does show a normal systolic function with grade 1 diastolic dysfunction resume cardiac medications once patient is able to tolerate oral intake No signs or symptoms of heart failure at this time Strict intake and output Daily weights. Cardiology was consulted for risk management prior to surgery Patient's sotalol was on hold, continue beta-tracie replacement intravenously (4) Hypertension: Code(s): I10 - Essential (primary) hypertension Status: Acute Assessment and Plan: Current BP is 100/59 p.r.n. hydralazine available if systolic blood pressure greater than 180 Patient's sotalol is on hold, continue beta-tracie replacement intravenously Trend BP Adjust therapy as indicated (5) Leukocytosis: Code(s): D72.829 - Elevated white blood cell count, unspecified Status: Acute Assessment and Plan: leukocytosis noted WBC are 13.3 (01/17/22) Continues to be afebrile. Probably from inflammatory response Continue to trend labs (6) Thrombocytopenia: Code(s): D69.6 - Thrombocytopenia, unspecified Status: Acute Assessment and Plan: Current PLT 113 (01/17/22) monitor for signs and symptoms of blood loss or bleeding Monitor CBC/platelet count (7) Hypokalemia: Code(s): E87.6 - Hypokalemia Status: Acute Assessment and Plan: Monitor serum electrolytes Replete as necessary Changing IV fluids to D5 half-normal saline with 20 K Subjective Date/time seen: 01/17/22 1030 Interval history: 01/09/22 16:45 Narrative: Ms. Pantoja is a 71-year-old female who presented emergency room with complaints of abdominal pain and nausea that started yesterday. Patient is in quite a bit of pain at this point and is not wanting to speak very long periods of time so it is somewhat difficult to get a history from her. Patient states that she began having nausea with dry heaves as well as lower abdominal pain yesterday. Patient states she has not had a bowel movement last few days, but this is not abnormal for her. Patient states that she was passing gas this morning. Patient states she has been having right lower quadrant pain more so the left lower quadrant pain. Upon evaluation in emergency room patient underwent CT scan that did show small bowel obstruction and General surgery was consulted. It was recommended an NG to be placed and patient be on bowel rest as wel
--- NOTE | 2022-01-17 10:30 | P.PNIM_ITS ---
Progress Note: A&P Assessment and Plan (1) Small bowel obstruction: Code(s): K56.609 - Unspecified intestinal obstruction, unspecified as to partial versus complete obstruction Status: Acute Assessment and Plan: * General surgery consulted to further evaluate small bowel obstruction if the patient needs surgical intervention or fails to improve with NG decompression. * NG tube to low intermittent suction, which contiues * Gentle IV fluid resuscitation given the patient's NPO status * Repeat KUB did not show significant changes. 01/15/2022 * Obstructive series Persistent small bowel obstruction. * Surgical intervention was performed on 01/15/22 * Pain medications on board * to manage post op care * Remains NPO * P.r.n. Anti emetics, avoid Reglan (2) Type 2 diabetes mellitus: Code(s): E11.9 - Type 2 diabetes mellitus without complications Status: Acute Assessment and Plan: * Glucose 113 * Insulin sliding scale * Hold oral hypoglycemics * while the patient remains NPO perform Accu-Cheks q.6 hours * D5 half-normal saline with 20 mEq of potassium added for NPO status * Trend glucose * Adjust therapy as indicated * Hold Ozempic as this would probably not be beneficial to her since it does slow gastric emptying (3) Cardiomyopathy: Code(s): I42.9 - Cardiomyopathy, unspecified Status: Acute Assessment and Plan: * history of a nonischemic cardiomyopathy status post Bi V ICD placement * most recent echo does show a normal systolic function with grade 1 diastolic dysfunction * resume cardiac medications once patient is able to tolerate oral intake * No signs or symptoms of heart failure at this time * Strict intake and output * Daily weights. * Cardiology was consulted for risk management prior to surgery * Patient's sotalol was on hold, continue beta-tracie replacement intravenously (4) Hypertension: Code(s): I10 - Essential (primary) hypertension Status: Acute Assessment and Plan: * Current BP is 100/59 * p.r.n. hydralazine available if systolic blood pressure greater than 180 * Patient's sotalol is on hold, continue beta-tracie replacement intravenously * Trend BP * Adjust therapy as indicated (5) Leukocytosis: Code(s): D72.829 - Elevated white blood cell count, unspecified Status: Acute Assessment and Plan: * leukocytosis noted * WBC are 13.3 (01/17/22) * Continues to be afebrile. * Probably from inflammatory response * Continue to trend labs (6) Thrombocytopenia: Code(s): D69.6 - Thrombocytopenia, unspecified Status: Acute Assessment and Plan: * Current PLT 113 (01/17/22) * monitor for signs and symptoms of blood loss or bleeding * Monitor CBC/platelet count (7) Hypokalemia: Code(s): E87.6 - Hypokalemia Status: Acute Assessment and Plan: * Monitor serum electrolytes * Replete as necessary * Changing IV fluids to D5 half-normal saline with 20 K Subjective Date/time seen: 01/17/22 1030 Interval history: 01/09/22 16:45 Narrative: Ms. Pantoja is a 71-year-old female who presented emergency room with complaints of abdominal pain and nausea that started yesterday. Patient is in quite a bit of pain at this point and is not wanting to speak very long periods of time so it is somewhat difficult to get a history from her. Patient states
--- NOTE | 2022-01-17 11:01 | PM.PNCARD ---
Progress Note: A&P Assessment and Plan (1) Cardiomyopathy: Code(s): I42.9 - Cardiomyopathy, unspecified Status: Acute Assessment and Plan: Resume her standard CHF/cardiomyopathy medications when able to take oral medications. For now, she is receiving IV metoprolol (2) Cardiac dysrhythmia: Code(s): I49.9 - Cardiac arrhythmia, unspecified Status: Chronic Assessment and Plan: On metoprolol for now. Transition back to sotalol when able to take p.o. (3) Hypertension: Code(s): I10 - Essential (primary) hypertension Status: Acute Assessment and Plan: At goal (4) Small bowel obstruction: Code(s): K56.609 - Unspecified intestinal obstruction, unspecified as to partial versus complete obstruction Status: Acute Assessment and Plan: S/p ex lap and small bowel resection. NG in place (5) Hypokalemia: Code(s): E87.6 - Hypokalemia Status: Acute Assessment and Plan: Normal Subjective Date/time seen: 01/17/22 11:01 Interval history: 71-YEAR-OLD ADMITTED FOR SMALL-BOWEL OBSTRUCTION. HAS SIGNIFICANT CARDIAC HISTORY. Date of service 01/12/2022: NG still in place. She has no chest pain, shortness of breath. Dealing with some anxiety. No edema Date of service 01/13/2022: No chest pain, shortness of breath, edema. NG still in place Date of service 01/14/2022: Feels about the same today. She does have some abdominal pain. Denies any chest pain, shortness breath, swelling. Date of service 01/16/2022: Status post surgery yesterday. Still NG in place but feels okay but in pain in abdomen. No chest pain though or shortness of breath Date of service 01/17/2022: Doing o.k. She is still having abdominal pain but only when she moves. Remains NPO on TPN and NG in place. Review of Systems Constitutional: Constitutional: Reports no additional constitutional complaints Eyes: Eyes: Reports no additional eye complaints ENT: Reports system reviewed and no additional complaints, except as documented Cardiovascular: Cardiovascular: Reports as per HPI Respiratory: Respiratory: Reports no additional respiratory complaints Gastrointestinal: Gastrointestinal: Reports as per HPI and Reports abdominal pain Musculoskeletal: Musculoskeletal: Reports arthralgias Neurologic: Reports system reviewed and no additional complaints, except as documented Endocrine: Endocrine: Reports no additional endocrine complaints Hematologic/Lymphatic: Hematologic/Lymphatic: Reports no additional hematologic/lymphatic complaints Allergic/Immunologic: Allergic/Immunologic: Reports no additional allergic/immunologic complaints Exam Const: General: comfortable and no acute distress Other: Pleasant older lady lying comfortably in bed. Lethargic but oriented. NG tube in place. HENMT: Mouth: Yes moist mucous membranes Eyes: Sclera: sclerae normal Neck: Neck: supple and no JVD Other: Resp: Effort & Inspection: normal respiratory effort Auscultation: clear to auscultation bilaterally Cardio: Rate: regular rate Rhythm: regular rhythm Other: soft systolic murmur that does not radiate from the left sternal border GI: Other: Abdomen is soft, bowel sounds hypoactive. Skin: General skin exam: normal color Neuro: Cognition (Neuro): normal cognition Extrem: General: normal to inspection Other: no edema good distal pulses Objective Data Vital Signs Vital Signs: Vital Signs - 24 hr 01/16/22 17:55 01/17/22 00:30 01/17/22 06:00 Temperature 36.7 C 36.2 C L Pulse Rate 74 90 100 Respiratory Rate 18 18 Blood Pressure 119/59 L 100/59 L Pulse Oximetry 97 93 01/17/22 08:08 Temperature Pulse Rate 100 Respiratory Rate Blood Pressure Pulse Oximetry Intake/Output Intake/Output: Intake & Output 01/14/22 01/15/22 01/16/22 01/17/22 23:59 23:59 23:59 23:59 Intake Total 2200 1950 3255 1250 Output Total 4200 200 1800 300 Bret
[2022-01-17 11:48] LABS: Glucose Point of Care 136 mg/dl (65-105)
[2022-01-17] MEDS: LORazepam INJ (*CRX) 2 MG/ML VIAL 0.5 MG IV PUSH (13:11)
--- NOTE | 2022-01-17 14:42 | PM.PNGS ---
Progress Note: A&P Assessment and Plan (1) Small bowel obstruction: Code(s): K56.609 - Unspecified intestinal obstruction, unspecified as to partial versus complete obstruction Status: Acute Assessment and Plan: awaiting ROBF, clamp NG, sips of clears, cont TPN, encourage OOB/IS Subjective Subjective Date/Time Seen: 01/17/22 14:42 feels ok, small amount of flatus Review of Systems Review of Systems: All systems reviewed & are unremarkable except as noted in HPI and below Exam Const: General: cooperative, comfortable, no acute distress and ill appearing Resp: Effort & Inspection: normal respiratory effort Auscultation: clear to auscultation bilaterally Cardio: Rate: regular rate Rhythm: regular rhythm GI: Inspection: normal to inspection, distended and incision GI Palp: Yes Soft to palpation, Yes Tenderness to palpation present (GI), No Guarding due to palpation present (GI) and No Rigid due to palpation Objective Data Vital Signs Vital Signs: Vital Signs - 24 hr 01/16/22 17:55 01/17/22 00:30 01/17/22 06:00 Temperature 36.7 C 36.2 C L Pulse Rate 74 90 100 Respiratory Rate 18 18 Blood Pressure 119/59 L 100/59 L Pulse Oximetry 97 93 01/17/22 08:08 Temperature Pulse Rate 100 Respiratory Rate Blood Pressure Pulse Oximetry Intake/Output Intake/Output: Intake & Output 01/14/22 01/15/22 01/16/22 01/17/22 23:59 23:59 23:59 23:59 Intake Total 2200 1950 3255 1250 Output Total 4200 200 1800 300 Balance -1999 1750 1455 950 Meds/Results Medications: Active Medications Generic Name Dose Route Start Last Admin Trade Name Freq PRN Reason Stop Dose Admin Dextrose 12.5 gm 01/09/22 16:55 01/13/22 11:54 Dextrose 50% 25 Gm/50 Ml Syringe IV PUSH 12.5 gm PRN PRN Administration Hypoglycemia Protocol Enoxaparin Sodium 40 mg 01/10/22 09:00 01/17/22 08:08 Enoxaparin 40 Mg/0.4 Ml Syringe SUB-Q 40 mg DAILY JEANNE Administration Glucagon 1 mg 01/09/22 16:55 Glucagon For Inj 1 Mg Vial IM PRN PRN Hypoglycemia Protocol Glucose 15 gm 01/09/22 16:55 Glucose Oral Gel 15 Gm Of Glucse In 37.5 Gm Tube PO PRN PRN Hypoglycemia Protocol Hydralazine HCl 10 mg 01/09/22 16:56 01/10/22 21:01 Hydralazine Hcl 20 Mg/Ml Vial IV PUSH 10 mg Q8H PRN Administration Blood Pressure - High Dextrose 1,000 mls @ 100 mls/hr 01/09/22 16:55 Dextrose 5% 1,000 Ml IVPB PRN PRN Hypoglycemia Protocol Potassium Chloride/Dextrose/Sod Cl 1,000 mls @ 75 mls/hr 01/13/22 11:50 01/17/22 00:29 Kcl 20 Meq/D5/0.45% Sod Chl IV CONT 35 mls/hr .[id number] JEANNE Administration Dextrose 1,000 mls @ 50 mls/hr 01/14/22 13:36 Dextrose 10% IV CONT .Q20H PRN if PN is interrupted Multivitamins 2.5 ml/ 2,005 mls @ 40 mls/hr 01/14/22 18:00 01/16/22 17:47 Multivitamins 2.5 ml/ Amino IV CONT 40 mls/hr Acids/Electrolytes/Dextrose .Q24H JEANNE Administration Protocol Fat Emulsion Intravenous 250 mls @ 20.833 mls/hr 01/14/22 18:00 01/17/22 08:05 Lipids 20% IVPB Infused Q24H JEANNE Infusion Insulin Aspart 2 - 5 units 01/09/22 17:00 01/17/22 12:08 Insulin Aspart (*Bkc) 100 Units/Ml SUB-Q Not Given [facility] Protocol Lorazepam 0.5 mg 01/10/22 15:23 01/17/22 13:11 Lorazepam Inj (*Crx) 2 Mg/Ml Vial IV PUSH 0.5 mg Q6H PRN Administration Anxiety Metoprolol Tartrate 5 mg 01/11/22 08:35 01/17/22 08:08 Metoprolol Tartrate Inj 5 Mg/5 Ml Vial IV PUSH 5 mg Q8H JEANNE Administration Morphine Sulfate 2 mg 01/09/22 14:55 01/17/22 13:12 Morphine Sulfate (*Crx) 2 Mg/Ml Inj IV PUSH 2 mg Q2H PRN Administration Pain Rated 7-10 Ondansetron HCl 4 mg 01/09/22 14:55 01/17/22 13:12 Ondansetron Inj 4 Mg/2 Ml Vial IV PUSH 4 mg Q4H PRN Administration Nausea And Vomiting Phenol 1 spray 01/11/22 12:55 Phenol/Sod Pheno Hunter Shoshana (*Bk) MUCOUS M
[2022-01-17 15:12] VITALS: BP 108/58; PULSE 102; RESP 18; TEMP 37.6; O2SAT 93
[2022-01-17 16:44] VITALS: PULSE 102
[2022-01-17] MEDS: AMINO ACIDS 5%/D15W/E-LYTES/CA 2,000 ML with MULTIVITAMINS-12 INJ VIAL 1 2.5 ML, MULTIV... 40 ML IV CONT (17:48)
[2022-01-17] MEDS: FAT EMULSIONS IV 20% 250 ML 20.8 ML IVPB (17:49)
[2022-01-17 18:08] LABS: Glucose Point of Care 120 mg/dl (65-105)
[2022-01-17 19:24] VITALS: BP 112/56; PULSE 114; RESP 18; TEMP 36.6; O2SAT 95
[2022-01-18] VITALS (7 sets, daily range): BP systolic 116–145; BP diastolic 61–79; PULSE 84–111; RESP 16–20; TEMP 36.3–36.7; O2SAT 95–99
[2022-01-18] MEDS: METOPROLOL TARTRATE INJ 5 MG/5 ML VIAL IV PUSH ×3 (00:54→16:57)
[2022-01-18 01:03] LABS: Glucose Point of Care 125 mg/dl (65-105)
[2022-01-18 05:28] LABS: Anion Gap -1 mmol/L (8-16); Blood Urea Nitrogen 13 mg/dL (7-17); Calcium 7.9 mg/dL (8.4-10.2); Carbon Dioxide 31 mmol/L (22-30); Chloride 101 mmol/L (98-107); Estimated CRCL calculation 56 ml/min; Estimated Glomerular Filt Rate > 60; Glucose 115 mg/dL (65-110); Phosphorus 3.1 mg/dL (2.5-4.5); Potassium 4.1 mmol/L (3.4-5.0); Sodium 131 mmol/L (137-145)
[2022-01-18] MEDS: KCL 20 MEQ/D5/0.45% SOD CHL 1,000 ML 35 ML IV CONT (05:47)
[2022-01-18] MEDS: CENTRAL LINE FLUSH 10 ML IV PUSH ×3 (06:11→22:00)
[2022-01-18] MEDS: ENOXAPARIN 40 MG/0.4 ML SYRINGE SUB-Q (08:05)
--- NOTE | 2022-01-18 09:45 | PM.IMPN ---
Progress Note: A&P Assessment and Plan (1) Small bowel obstruction: Code(s): K56.609 - Unspecified intestinal obstruction, unspecified as to partial versus complete obstruction Status: Acute Assessment and Plan: General surgery consulted to further evaluate small bowel obstruction if the patient needs surgical intervention or fails to improve with NG decompression. NG tube to low intermittent suction, which contiues, has been DC'd Clear liquids started Repeat KUB did not show significant changes. 01/15/2022 Obstructive series Persistent small bowel obstruction. Surgical intervention was performed on 01/15/22 Pain medications on board GS to manage post op care diet advanced per GS, currently on Clear liq P.r.n. Anti emetics, avoid Reglan (2) Type 2 diabetes mellitus: Code(s): E11.9 - Type 2 diabetes mellitus without complications Status: Acute Assessment and Plan: Glucose 115 Insulin sliding scale Hold oral hypoglycemics while the patient remains NPO perform Accu-Cheks q.6 hours D5 half-normal saline with 20 mEq of potassium added for NPO status Trend glucose Adjust therapy as indicated Hold Ozempic as this would probably not be beneficial to her since it does slow gastric emptying (3) Cardiomyopathy: Code(s): I42.9 - Cardiomyopathy, unspecified Status: Acute Assessment and Plan: history of a nonischemic cardiomyopathy status post Bi V ICD placement most recent echo does show a normal systolic function with grade 1 diastolic dysfunction resume cardiac medications once patient is able to tolerate oral intake No signs or symptoms of heart failure at this time Strict intake and output Daily weights. Cardiology was consulted for risk management prior to surgery Patient's sotalol was on hold, continue beta-tracie replacement intravenously (4) Hypertension: Code(s): I10 - Essential (primary) hypertension Status: Acute Assessment and Plan: Current BP is 145/79 p.r.n. hydralazine available if systolic blood pressure greater than 180 Patient's sotalol is on hold, continue beta-tracie replacement intravenously Trend BP Adjust therapy as indicated (5) Leukocytosis: Code(s): D72.829 - Elevated white blood cell count, unspecified Status: Acute Assessment and Plan: leukocytosis noted WBC are 13.3 (01/17/22) Continues to be afebrile. Probably from inflammatory response Continue to trend labs (6) Thrombocytopenia: Code(s): D69.6 - Thrombocytopenia, unspecified Status: Acute Assessment and Plan: Current PLT 113 (01/17/22) monitor for signs and symptoms of blood loss or bleeding Monitor CBC/platelet count (7) Hypokalemia: Code(s): E87.6 - Hypokalemia Status: Acute Assessment and Plan: Monitor serum electrolytes Replete as necessary Changing IV fluids to D5 half-normal saline with 20 K Subjective Date/time seen: 01/18/22 0945 Interval history: 01/09/22 16:45 Narrative: Ms. Pantoja is a 71-year-old female who presented emergency room with complaints of abdominal pain and nausea that started yesterday. Patient is in quite a bit of pain at this point and is not wanting to speak very long periods of time so it is somewhat difficult to get a history from her. Patient states that she began having nausea with dry heaves as well as lower abdominal pain yesterday. Patient states she has not had a bowel movement last few days, but this is not abnormal for her. Patient states that she was passing gas this morning. Patient states she has been having right lower quadrant pain more so the left lower quadrant pain. Upon evaluation in emergency room patient underwent CT scan that did show small bowel obstruction and General surgery was consulted. It was recommended an NG to be placed and patient be on bowel re
--- NOTE | 2022-01-18 09:45 | P.PNIM_ITS ---
Progress Note: A&P Assessment and Plan (1) Small bowel obstruction: Code(s): K56.609 - Unspecified intestinal obstruction, unspecified as to partial versus complete obstruction Status: Acute Assessment and Plan: * General surgery consulted to further evaluate small bowel obstruction if the patient needs surgical intervention or fails to improve with NG decompression. * NG tube to low intermittent suction, which contiues, has been DC'd * Clear liquids started * Repeat KUB did not show significant changes. 01/15/2022 * Obstructive series Persistent small bowel obstruction. * Surgical intervention was performed on 01/15/22 * Pain medications on board * to manage post op care * diet advanced per GS, currently on Clear liq * P.r.n. Anti emetics, avoid Reglan (2) Type 2 diabetes mellitus: Code(s): E11.9 - Type 2 diabetes mellitus without complications Status: Acute Assessment and Plan: * Glucose 115 * Insulin sliding scale * Hold oral hypoglycemics * while the patient remains NPO perform Accu-Cheks q.6 hours * D5 half-normal saline with 20 mEq of potassium added for NPO status * Trend glucose * Adjust therapy as indicated * Hold Ozempic as this would probably not be beneficial to her since it does slow gastric emptying (3) Cardiomyopathy: Code(s): I42.9 - Cardiomyopathy, unspecified Status: Acute Assessment and Plan: * history of a nonischemic cardiomyopathy status post Bi V ICD placement * most recent echo does show a normal systolic function with grade 1 diastolic dysfunction * resume cardiac medications once patient is able to tolerate oral intake * No signs or symptoms of heart failure at this time * Strict intake and output * Daily weights. * Cardiology was consulted for risk management prior to surgery * Patient's sotalol was on hold, continue beta-tracie replacement intravenously (4) Hypertension: Code(s): I10 - Essential (primary) hypertension Status: Acute Assessment and Plan: * Current BP is 145/79 * p.r.n. hydralazine available if systolic blood pressure greater than 180 * Patient's sotalol is on hold, continue beta-tracie replacement intravenously * Trend BP * Adjust therapy as indicated (5) Leukocytosis: Code(s): D72.829 - Elevated white blood cell count, unspecified Status: Acute Assessment and Plan: * leukocytosis noted * WBC are 13.3 (01/17/22) * Continues to be afebrile. * Probably from inflammatory response * Continue to trend labs (6) Thrombocytopenia: Code(s): D69.6 - Thrombocytopenia, unspecified Status: Acute Assessment and Plan: * Current PLT 113 (01/17/22) * monitor for signs and symptoms of blood loss or bleeding * Monitor CBC/platelet count (7) Hypokalemia: Code(s): E87.6 - Hypokalemia Status: Acute Assessment and Plan: * Monitor serum electrolytes * Replete as necessary * Changing IV fluids to D5 half-normal saline with 20 K Subjective Date/time seen: 01/18/22 0945 Interval history: 01/09/22 16:45 Narrative: Ms. Pantoja is a 71-year-old female who presented emergency room with complaints of abdominal pain and nausea that started yesterday. Patient is in quite a bit of pain at this point and is not wanting to speak very long periods of time so it is somewhat difficult to get a history from her. Patient s
--- NOTE | 2022-01-18 10:26 | PM.PNCARD ---
Progress Note: A&P Assessment and Plan (1) Cardiomyopathy: Code(s): I42.9 - Cardiomyopathy, unspecified Status: Acute Assessment and Plan: Resume her standard CHF/cardiomyopathy medications when able to take oral medications. For now, she is receiving IV metoprolol (2) Cardiac dysrhythmia: Code(s): I49.9 - Cardiac arrhythmia, unspecified Status: Chronic Assessment and Plan: On metoprolol for now. Transition back to sotalol when able to take p.o. (3) Hypertension: Code(s): I10 - Essential (primary) hypertension Status: Acute Assessment and Plan: At goal (4) Small bowel obstruction: Code(s): K56.609 - Unspecified intestinal obstruction, unspecified as to partial versus complete obstruction Status: Acute Assessment and Plan: S/p ex lap and small bowel resection. NG in place (5) Hypokalemia: Code(s): E87.6 - Hypokalemia Status: Acute Assessment and Plan: Normal Subjective Date/time seen: 01/18/22 10:26 Interval history: 71-YEAR-OLD ADMITTED FOR SMALL-BOWEL OBSTRUCTION. HAS SIGNIFICANT CARDIAC HISTORY. Date of service 01/12/2022: NG still in place. She has no chest pain, shortness of breath. Dealing with some anxiety. No edema Date of service 01/13/2022: No chest pain, shortness of breath, edema. NG still in place Date of service 01/14/2022: Feels about the same today. She does have some abdominal pain. Denies any chest pain, shortness breath, swelling. Date of service 01/16/2022: Status post surgery yesterday. Still NG in place but feels okay but in pain in abdomen. No chest pain though or shortness of breath Date of service 01/17/2022: Doing o.k. She is still having abdominal pain but only when she moves. Remains NPO on TPN and NG in place. Date of service 01/18/2022: A little better today, still having some abdominal pain. Complaining of being thirsty and hungry. Has some neck stiffness. No chest pain. Review of Systems Constitutional: Constitutional: Reports no additional constitutional complaints Eyes: Eyes: Reports no additional eye complaints ENT: Reports system reviewed and no additional complaints, except as documented Cardiovascular: Cardiovascular: Reports as per HPI Respiratory: Respiratory: Reports no additional respiratory complaints Gastrointestinal: Gastrointestinal: Reports as per HPI and Reports abdominal pain Musculoskeletal: Musculoskeletal: Reports arthralgias Neurologic: Reports system reviewed and no additional complaints, except as documented Endocrine: Endocrine: Reports no additional endocrine complaints Hematologic/Lymphatic: Hematologic/Lymphatic: Reports no additional hematologic/lymphatic complaints Allergic/Immunologic: Allergic/Immunologic: Reports no additional allergic/immunologic complaints Exam Const: General: comfortable and no acute distress Other: Pleasant older lady lying comfortably in bed. Alert and oriented. NG tube in place. HENMT: Mouth: Yes moist mucous membranes Eyes: Sclera: sclerae normal Neck: Neck: supple and no JVD Other: Resp: Effort & Inspection: normal respiratory effort Auscultation: clear to auscultation bilaterally Cardio: Rate: regular rate Rhythm: regular rhythm Other: soft systolic murmur that does not radiate from the left sternal border GI: Other: Abdomen is soft, bowel sounds hypoactive. Skin: General skin exam: normal color Neuro: Cognition (Neuro): normal cognition Extrem: General: normal to inspection Other: no edema good distal pulses Objective Data Vital Signs Vital Signs: Vital Signs - 24 hr 01/17/22 15:12 01/17/22 16:44 01/17/22 19:24 Temperature 37.6 C H 36.6 C Pulse Rate 102 H 102 H 114 H Respiratory Rate 18 18 Blood Pressure 108/58 L 112/56 L Pulse Oximetry 93 95 01/18/22 00:54 01/18/22 05:50 01/18/22 08:04 Temperature 36.6 C Pulse Rate 107 H 84 90 Respiratory Rate
[2022-01-18] MEDS: MORPHINE SULFATE (*CRX) 2 MG/ML INJ IV PUSH (11:09)
[2022-01-18] MEDS: LORazepam INJ (*CRX) 2 MG/ML VIAL 0.5 MG IV PUSH (11:09)
[2022-01-18 11:28] LABS: Glucose Point of Care 147 mg/dl (65-105)
--- NOTE | 2022-01-18 11:43 | PCNFU ---
Nutrition Follow-Up Complete: Altered GI function as related to SBO as evidenced by NPO x 6 days. Goal: Meet estimated nutritional needs Patient is progressing towards goal. We will continue current goal. Pt current nutrition is TPN. Last recorded weight is 67.8 kg, down from 69.4 kg on admit Bowel Motility:No BM reported. Labs Reviewed:Glu 115, Na 131 Meds Noted:Lopressor, Zofran, KCL, Zosyn, Clinimix E 5/15 at 40 ml/hr with 250 ml of 20% Lipid Emulsion, Morphine. Skin: WNL Additional Notes: Nutrition follow up. Patient has NGT clamped. TPN continues providing 1182 kcals and 48 gms protein. Providing 77% of caloric needs and 100% of protein needs. If patient remains on TPN, recommend increasing TPN rate to 60 ml/hr over 22 hours to better meet caloric needs. Monitoring: Will monitor every Friday and Friday.
[2022-01-18] MEDS: ACETAMINOPHEN 325 MG TABLET 650 MG PO (14:35)
[2022-01-18] MEDS: CYCLOBENZAPRINE HCL 5 MG TABLET PO (14:35)
--- NOTE | 2022-01-18 14:35 | PM.PNGS ---
Progress Note: A&P Assessment and Plan (1) Small bowel obstruction: Code(s): K56.609 - Unspecified intestinal obstruction, unspecified as to partial versus complete obstruction Status: Acute Assessment and Plan: awaiting ROBF, will slowly ADAT, encourage OOB/IS, wean TPN Subjective Subjective Date/Time Seen: 01/18/22 14:35 feels a little better, +flatus, NG clamped since yesterday s issue Review of Systems Review of Systems: All systems reviewed & are unremarkable except as noted in HPI and below Exam Const: General: cooperative, comfortable and no acute distress Orientation/consciousness: patient oriented x3 Resp: Auscultation: clear to auscultation bilaterally Cardio: Rate: regular rate Rhythm: regular rhythm GI: Inspection: normal to inspection, non-distended and incision GI Palp: Yes Soft to palpation, Yes Tenderness to palpation present (GI), No Guarding due to palpation present (GI) and No Rigid due to palpation Objective Data Vital Signs Vital Signs: Vital Signs - 24 hr 01/17/22 15:12 01/17/22 16:44 01/17/22 19:24 Temperature 37.6 C H 36.6 C Pulse Rate 102 H 102 H 114 H Respiratory Rate 18 18 Blood Pressure 108/58 L 112/56 L Pulse Oximetry 93 95 01/18/22 00:54 01/18/22 05:50 01/18/22 08:04 Temperature 36.6 C Pulse Rate 107 H 84 90 Respiratory Rate 18 Blood Pressure 145/79 H Pulse Oximetry 98 01/18/22 14:27 Temperature 36.7 C Pulse Rate 111 H Respiratory Rate 20 Blood Pressure 125/69 Pulse Oximetry 99 Intake/Output Intake/Output: Intake & Output 01/15/22 01/16/22 01/17/22 01/18/22 23:59 23:59 23:59 23:59 Intake Total 1950 3255 3255 1490 Output Total 200 1800 700 550 Balance 1750 1455 2555 940 Meds/Results Medications: Active Medications Generic Name Dose Route Start Last Admin Trade Name Freq PRN Reason Stop Dose Admin Acetaminophen 650 mg 01/18/22 12:23 01/18/22 14:35 Acetaminophen 325 Mg Tablet PO 650 mg Q6H PRN Administration Mild Pain (1-3) or Fever Cyclobenzaprine HCl 5 mg 01/18/22 14:25 01/18/22 14:35 Cyclobenzaprine Hcl 5 Mg Tablet PO 5 mg Q8H PRN Administration Muscle Spasm Dextrose 12.5 gm 01/09/22 16:55 01/13/22 11:54 Dextrose 50% 25 Gm/50 Ml Syringe IV PUSH 12.5 gm PRN PRN Administration Hypoglycemia Protocol Enoxaparin Sodium 40 mg 01/10/22 09:00 01/18/22 08:05 Enoxaparin 40 Mg/0.4 Ml Syringe SUB-Q 40 mg DAILY JEANNE Administration Glucagon 1 mg 01/09/22 16:55 Glucagon For Inj 1 Mg Vial IM PRN PRN Hypoglycemia Protocol Glucose 15 gm 01/09/22 16:55 Glucose Oral Gel 15 Gm Of Glucse In 37.5 Gm Tube PO PRN PRN Hypoglycemia Protocol Hydralazine HCl 10 mg 01/09/22 16:56 01/10/22 21:01 Hydralazine Hcl 20 Mg/Ml Vial IV PUSH 10 mg Q8H PRN Administration Blood Pressure - High Dextrose 1,000 mls @ 100 mls/hr 01/09/22 16:55 Dextrose 5% 1,000 Ml IVPB PRN PRN Hypoglycemia Protocol Potassium Chloride/Dextrose/Sod Cl 1,000 mls @ 75 mls/hr 01/13/22 11:50 01/18/22 05:47 Kcl 20 Meq/D5/0.45% Sod Chl IV CONT 35 mls/hr .[id number] JEANNE Administration Dextrose 1,000 mls @ 50 mls/hr 01/14/22 13:36 Dextrose 10% IV CONT .Q20H PRN if PN is interrupted Multivitamins 2.5 ml/ 2,005 mls @ 40 mls/hr 01/14/22 18:00 01/17/22 17:48 Multivitamins 2.5 ml/ Amino IV CONT 40 mls/hr Acids/Electrolytes/Dextrose .Q24H JEANNE Administration Protocol Fat Emulsion Intravenous 250 mls @ 20.833 mls/hr 01/14/22 18:00 01/18/22 06:12 Lipids 20% IVPB Infused Q24H JEANNE Infusion Insulin Aspart 2 - 5 units 01/09/22 17:00 01/18/22 12:40 Insulin Aspart (*Bkc) 100 Units/Ml SUB-Q Not Given TIDWM JEANNE Protocol Lorazepam 0.5 mg 01/10/22 15:23 01/18/22 11:09 Lorazepam Inj (*Crx) 2 Mg/Ml Vial IV PUSH 0.5 mg Q6H PRN Administration Anxiety Metoprolol Tartrate 5 mg 03
[2022-01-18] MEDS: AMINO ACIDS 5%/D15W/E-LYTES/CA 2,000 ML with MULTIVITAMINS-12 INJ VIAL 1 2.5 ML, MULTIV... 40 ML IV CONT (17:04)
[2022-01-18] MEDS: FAT EMULSIONS IV 20% 250 ML 20.8 ML IVPB (17:04)
[2022-01-18 17:32] LABS: Glucose Point of Care 135 mg/dl (65-105)
[2022-01-18 23:57] LABS: Glucose Point of Care 112 mg/dl (65-105)
[2022-01-19 00:50] VITALS: PULSE 93
[2022-01-19] MEDS: METOPROLOL TARTRATE INJ 5 MG/5 ML VIAL IV PUSH ×3 (00:50→17:06)
[2022-01-19 05:52] VITALS: BP 100/53; PULSE 94; RESP 16; TEMP 36.2; O2SAT 91
[2022-01-19] MEDS: CENTRAL LINE FLUSH 10 ML IV PUSH ×3 (05:53→22:00)
[2022-01-19 06:04] LABS: Anion Gap 0 mmol/L (8-16); Blood Urea Nitrogen 13 mg/dL (7-17); Calcium 8.3 mg/dL (8.4-10.2); Carbon Dioxide 31 mmol/L (22-30); Chloride 103 mmol/L (98-107); Estimated CRCL calculation 56 ml/min; Estimated Glomerular Filt Rate > 60; Glucose 111 mg/dL (65-110); Phosphorus 3.2 mg/dL (2.5-4.5); Potassium 3.8 mmol/L (3.4-5.0); Sodium 134 mmol/L (137-145)
[2022-01-19 06:40] LABS: Glucose Point of Care 109 mg/dl (65-105)
[2022-01-19 08:05] VITALS: PULSE 94
[2022-01-19] MEDS: ACETAMINOPHEN 325 MG TABLET 650 MG PO (08:06)
[2022-01-19] MEDS: ENOXAPARIN 40 MG/0.4 ML SYRINGE SUB-Q (08:07)
--- NOTE | 2022-01-19 09:10 | PM.PNCARD ---
Progress Note: A&P Additional Plan 71-year-old woman with: Stable nonischemic cardiomyopathy. She now several days postop surgery for small bowel obstruction and resection of ischemic loop of small bowel. No cardiovascular issues or complications in the perioperative setting. Still getting her intravenous beta-tracie at this time. Will plan to transition her back to her oral medications when she is tolerating reasonable diet. At this time only on a trial of clear liquids. Reinaldo Perez MD [facility] Subjective Date/time seen: Date of service: 01/19/22 09:10 Interval history: 71-YEAR-OLD ADMITTED FOR SMALL-BOWEL OBSTRUCTION. HAS SIGNIFICANT CARDIAC HISTORY. Date of service 01/12/2022: NG still in place. She has no chest pain, shortness of breath. Dealing with some anxiety. No edema Date of service 01/13/2022: No chest pain, shortness of breath, edema. NG still in place Date of service 01/14/2022: Feels about the same today. She does have some abdominal pain. Denies any chest pain, shortness breath, swelling. Date of service 01/16/2022: Status post surgery yesterday. Still NG in place but feels okay but in pain in abdomen. No chest pain though or shortness of breath Date of service 01/17/2022: Doing o.k. She is still having abdominal pain but only when she moves. Remains NPO on TPN and NG in place. Date of service 01/18/2022: A little better today, still having some abdominal pain. Complaining of being thirsty and hungry. Has some neck stiffness. No chest pain. Date of service 01/19/2022: Patient is tolerating clear liquid diet at this time. Postop day 3. Following surgery for small bowel obstruction/ small bowel resection. Exam Const: General: comfortable and no acute distress Other: Pleasant older lady lying comfortably in bed. Alert and oriented. NG tube in place. HENMT: Mouth: Yes moist mucous membranes Eyes: Sclera: sclerae normal Neck: Neck: supple and no JVD Other: Resp: Effort & Inspection: normal respiratory effort Auscultation: clear to auscultation bilaterally Cardio: Rate: regular rate Rhythm: regular rhythm Other: soft systolic murmur that does not radiate from the left sternal border GI: Other: Abdomen is soft, bowel sounds hypoactive. Skin: General skin exam: normal color Neuro: Cognition (Neuro): normal cognition Extrem: General: normal to inspection Other: no edema good distal pulses Objective Data Vital Signs Vital Signs: Vital Signs - 24 hr 01/18/22 14:27 01/18/22 16:57 01/18/22 20:28 Temperature 36.7 C Pulse Rate 111 H 111 H 106 H Respiratory Rate 20 18 Blood Pressure 125/69 116/61 Pulse Oximetry 99 95 01/18/22 20:56 01/19/22 00:50 01/19/22 05:52 Temperature 36.3 C L 36.2 C L Pulse Rate 98 93 94 Respiratory Rate 16 16 Blood Pressure 100/53 L Pulse Oximetry 96 91 01/19/22 08:05 Temperature Pulse Rate 94 Respiratory Rate Blood Pressure Pulse Oximetry Intake/Output Intake/Output: Intake & Output 01/16/22 01/17/22 01/18/22 01/19/22 23:59 23:59 23:59 23:59 Intake Total 3255 3255 3615 490 Output Total 4734 930 5606 300 Balance 1455 2555 1615 190 Meds/Results Medications: Active Medications Generic Name Dose Route Start Last Admin Trade Name Freq PRN Reason Stop Dose Admin Acetaminophen 650 mg 01/18/22 12:23 01/19/22 08:06 Acetaminophen 325 Mg Tablet PO 650 mg Q6H PRN Administration Mild Pain (1-3) or Fever Cyclobenzaprine HCl 5 mg 01/18/22 14:25 01/18/22 14:35 Cyclobenzaprine Hcl 5 Mg Tablet PO 5 mg Q8H PRN Administration Muscle Spasm Dextrose 12.5 gm 01/09/22 16:55 01/13/22 11:54 Dextrose 50% 25 Gm/50 Ml Syringe IV PUSH 12.5 gm PRN PRN Administration Hypoglycemia Protocol Enoxaparin Sodium 40 mg 01/10/22 09:00 01/19/22 08:07 Enoxaparin 40 Mg/0.4 Ml Syringe SUB-Q 40 mg DAILY JEANNE Administration Glucagon 1 mg 01/09/22 16:55 Glucago
--- NOTE | 2022-01-19 10:15 | P.PNIM_ITS ---
Progress Note: A&P Assessment and Plan (1) Small bowel obstruction: Code(s): K56.609 - Unspecified intestinal obstruction, unspecified as to partial versus complete obstruction Status: Acute Assessment and Plan: * General surgery consulted to further evaluate small bowel obstruction if the patient needs surgical intervention or fails to improve with NG decompression. * Clear liquids started advanced to full liquids * Repeat KUB did not show significant changes. 01/15/2022 * Surgical intervention was performed on 01/15/22 * Pain medications on board * to manage post op care * diet advanced per GS, currently on Clear liq * P.r.n. Anti emetics, avoid Reglan (2) Type 2 diabetes mellitus: Code(s): E11.9 - Type 2 diabetes mellitus without complications Status: Acute Assessment and Plan: * Glucose 111 * Insulin sliding scale * Hold oral hypoglycemics * while the patient remains NPO perform Accu-Cheks q.6 hour * Trend glucose * Adjust therapy as indicated * Hold Ozempic as this would probably not be beneficial to her since it does slow gastric emptying (3) Cardiomyopathy: Code(s): I42.9 - Cardiomyopathy, unspecified Status: Acute Assessment and Plan: * history of a nonischemic cardiomyopathy status post Bi V ICD placement * most recent echo does show a normal systolic function with grade 1 diastolic dysfunction * resume cardiac medications once patient is able to tolerate oral intake * No signs or symptoms of heart failure at this time * Strict intake and output * Daily weights. * Cardiology was consulted for risk management prior to surgery * Patient's sotalol was on hold, continue beta-tracie replacement intravenously (4) Hypertension: Code(s): I10 - Essential (primary) hypertension Status: Acute Assessment and Plan: * Current BP is 100/53 * p.r.n. hydralazine available if systolic blood pressure greater than 180 * Patient's sotalol is on hold, continue beta-tracie replacement intravenously * Trend BP * Adjust therapy as indicated (5) Leukocytosis: Code(s): D72.829 - Elevated white blood cell count, unspecified Status: Acute Assessment and Plan: * leukocytosis noted * WBC are 13.3 (01/17/22) * Continues to be afebrile. * Probably from inflammatory response * Continue to trend labs (6) Thrombocytopenia: Code(s): D69.6 - Thrombocytopenia, unspecified Status: Acute Assessment and Plan: * Current PLT 113 (01/17/22) * monitor for signs and symptoms of blood loss or bleeding * Monitor CBC/platelet count (7) Hypokalemia: Code(s): E87.6 - Hypokalemia Status: Acute Assessment and Plan: * Monitor serum electrolytes * Replete as necessary Subjective Date/time seen: 01/19/22 1015 Interval history: 01/09/22 16:45 Narrative: Ms. Pantoja is a 71-year-old female who presented emergency room with complaints of abdominal pain and nausea that started yesterday. Patient is in quite a bit of pain at this point and is not wanting to speak very long periods of time so it is somewhat difficult to get a history from her. Patient states that she began having nausea with dry heaves as well as lower abdominal pain yesterday. Patient states she has not had a bowel movement last few days, but this is not abnormal for her. Patient states that she was passing gas this
--- NOTE | 2022-01-19 10:15 | PM.IMPN ---
Progress Note: A&P Assessment and Plan (1) Small bowel obstruction: Code(s): K56.609 - Unspecified intestinal obstruction, unspecified as to partial versus complete obstruction Status: Acute Assessment and Plan: General surgery consulted to further evaluate small bowel obstruction if the patient needs surgical intervention or fails to improve with NG decompression. Clear liquids started advanced to full liquids Repeat KUB did not show significant changes. 01/15/2022 Surgical intervention was performed on 01/15/22 Pain medications on board GS to manage post op care diet advanced per GS, currently on Clear liq P.r.n. Anti emetics, avoid Reglan (2) Type 2 diabetes mellitus: Code(s): E11.9 - Type 2 diabetes mellitus without complications Status: Acute Assessment and Plan: Glucose 111 Insulin sliding scale Hold oral hypoglycemics while the patient remains NPO perform Accu-Cheks q.6 hour Trend glucose Adjust therapy as indicated Hold Ozempic as this would probably not be beneficial to her since it does slow gastric emptying (3) Cardiomyopathy: Code(s): I42.9 - Cardiomyopathy, unspecified Status: Acute Assessment and Plan: history of a nonischemic cardiomyopathy status post Bi V ICD placement most recent echo does show a normal systolic function with grade 1 diastolic dysfunction resume cardiac medications once patient is able to tolerate oral intake No signs or symptoms of heart failure at this time Strict intake and output Daily weights. Cardiology was consulted for risk management prior to surgery Patient's sotalol was on hold, continue beta-tracie replacement intravenously (4) Hypertension: Code(s): I10 - Essential (primary) hypertension Status: Acute Assessment and Plan: Current BP is 100/53 p.r.n. hydralazine available if systolic blood pressure greater than 180 Patient's sotalol is on hold, continue beta-tracie replacement intravenously Trend BP Adjust therapy as indicated (5) Leukocytosis: Code(s): D72.829 - Elevated white blood cell count, unspecified Status: Acute Assessment and Plan: leukocytosis noted WBC are 13.3 (01/17/22) Continues to be afebrile. Probably from inflammatory response Continue to trend labs (6) Thrombocytopenia: Code(s): D69.6 - Thrombocytopenia, unspecified Status: Acute Assessment and Plan: Current PLT 113 (01/17/22) monitor for signs and symptoms of blood loss or bleeding Monitor CBC/platelet count (7) Hypokalemia: Code(s): E87.6 - Hypokalemia Status: Acute Assessment and Plan: Monitor serum electrolytes Replete as necessary Subjective Date/time seen: 01/19/22 1015 Interval history: 01/09/22 16:45 Narrative: Ms. Pantoja is a 71-year-old female who presented emergency room with complaints of abdominal pain and nausea that started yesterday. Patient is in quite a bit of pain at this point and is not wanting to speak very long periods of time so it is somewhat difficult to get a history from her. Patient states that she began having nausea with dry heaves as well as lower abdominal pain yesterday. Patient states she has not had a bowel movement last few days, but this is not abnormal for her. Patient states that she was passing gas this morning. Patient states she has been having right lower quadrant pain more so the left lower quadrant pain. Upon evaluation in emergency room patient underwent CT scan that did show small bowel obstruction and General surgery was consulted. It was recommended an NG to be placed and patient be on bowel rest as well as hydrated with IV fluids. Patient denies any chest pain, shortness breast, lightheadedness, dizziness, syncopal, or near syncopal episodes. Patient denies any dysuria, hematuria, frequency, or urgency. Patien
[2022-01-19] MEDS: KCL 20 MEQ/D5/0.45% SOD CHL 1,000 ML 35 ML IV CONT (10:38)
[2022-01-19 11:45] LABS: Glucose Point of Care 115 mg/dl (65-105)
--- NOTE | 2022-01-19 14:28 | PM.PNGS ---
Progress Note: A&P Assessment and Plan (1) Small bowel obstruction: Code(s): K56.609 - Unspecified intestinal obstruction, unspecified as to partial versus complete obstruction Status: Acute Assessment and Plan: Continue full liquids today, add Ensure supplements. Stimulate bowels with Dulcolax suppository. Stop TPN after current bag Increase Activity OK to resume home meds Subjective Subjective Date/Time Seen: 01/19/22 14:28 Interval history: Passing flatus. No BM yet. Tolerating full liquids but gets full very quickly. Not much appetite. Exam GI: Inspection: incision (Intact with glue) GI Palp: Yes Soft to palpation and Yes Tenderness to palpation present (GI) (incisional) Auscultation: normal bowel sounds Objective Data Vital Signs Vital Signs: Vital Signs - 24 hr 01/18/22 16:57 01/18/22 20:28 01/18/22 20:56 Temperature 36.3 C L Pulse Rate 111 H 106 H 98 Respiratory Rate 18 16 Blood Pressure 116/61 Pulse Oximetry 95 96 01/19/22 00:50 01/19/22 05:52 01/19/22 08:05 Temperature 36.2 C L Pulse Rate 93 94 94 Respiratory Rate 16 Blood Pressure 100/53 L Pulse Oximetry 91 Intake/Output Intake/Output: Intake & Output 01/16/22 01/17/22 01/18/22 01/19/22 23:59 23:59 23:59 23:59 Intake Total 3255 3255 3615 1730 Output Total 9843 864 8699 900 Balance 1455 2555 1615 830 Meds/Results Medications: Active Medications Generic Name Dose Route Start Last Admin Trade Name Freq PRN Reason Stop Dose Admin Acetaminophen 650 mg 01/18/22 12:23 01/19/22 08:06 Acetaminophen 325 Mg Tablet PO 650 mg Q6H PRN Administration Mild Pain (1-3) or Fever Alprazolam 0.5 mg 01/19/22 14:24 Alprazolam (*Crx) 0.5 Mg Tablet PO DAILY PRN Anxiety Bisacodyl 10 mg 01/19/22 14:40 Bisacodyl 10 Mg Suppository RECTAL 01/19/22 14:41 ONCE ONE Buspirone HCl 10 mg 01/19/22 17:00 Buspirone Hcl 10 Mg Tablet PO BID JEANNE Cyclobenzaprine HCl 5 mg 01/18/22 14:25 01/18/22 14:35 Cyclobenzaprine Hcl 5 Mg Tablet PO 5 mg Q8H PRN Administration Muscle Spasm Dextrose 12.5 gm 01/09/22 16:55 01/13/22 11:54 Dextrose 50% 25 Gm/50 Ml Syringe IV PUSH 12.5 gm PRN PRN Administration Hypoglycemia Protocol Enoxaparin Sodium 40 mg 01/10/22 09:00 01/19/22 08:07 Enoxaparin 40 Mg/0.4 Ml Syringe SUB-Q 40 mg DAILY JEANNE Administration Glucagon 1 mg 01/09/22 16:55 Glucagon For Inj 1 Mg Vial IM PRN PRN Hypoglycemia Protocol Glucose 15 gm 01/09/22 16:55 Glucose Oral Gel 15 Gm Of Glucse In 37.5 Gm Tube PO PRN PRN Hypoglycemia Protocol Hydralazine HCl 10 mg 01/09/22 16:56 01/10/22 21:01 Hydralazine Hcl 20 Mg/Ml Vial IV PUSH 10 mg Q8H PRN Administration Blood Pressure - High Dextrose 1,000 mls @ 100 mls/hr 01/09/22 16:55 Dextrose 5% 1,000 Ml IVPB PRN PRN Hypoglycemia Protocol Dextrose 1,000 mls @ 50 mls/hr 01/14/22 13:36 Dextrose 10% IV CONT .Q20H PRN if PN is interrupted Insulin Aspart 2 - 5 units 01/09/22 17:00 01/19/22 12:07 Insulin Aspart (*Bkc) 100 Units/Ml SUB-Q Not Given TIDWM JEANNE Protocol Levothyroxine Sodium 50 mcg 01/20/22 06:30 Levothyroxine Sodium 50 Mcg Tablet PO DAILY@0630 [facility] Lorazepam 0.5 mg 01/10/22 15:23 01/18/22 11:09 Lorazepam Inj (*Crx) 2 Mg/Ml Vial IV PUSH 0.5 mg Q6H PRN Administration Anxiety Metoprolol Tartrate 5 mg 01/11/22 08:35 01/19/22 08:05 Metoprolol Tartrate Inj 5 Mg/5 Ml Vial IV PUSH 5 mg Q8H JEANNE Administration Ondansetron HCl 4 mg 01/09/22 14:55 01/17/22 20:06 Ondansetron Inj 4 Mg/2 Ml Vial IV PUSH 4 mg Q4H PRN Administration Nausea And Vomiting Phenol 1 spray 01/11/22 12:55 Phenol/Sod Pheno [place] Anna (*Bkc) MUCOUS MEM PRN PRN Sore Throat Sodium Chloride 10 ml 01/15/22 14:00 01/19/22 05:53 [facility]
[2022-01-19 14:50] VITALS: BP 125/81; PULSE 98; RESP 18; TEMP 37.1; O2SAT 100
[2022-01-19] MEDS: BISACODYL 10 MG SUPPOSITORY RECTAL (14:51)
[2022-01-19 17:06] VITALS: PULSE 98
[2022-01-19] MEDS: busPIRone HCL 10 MG TABLET PO (17:06)
[2022-01-19 17:19] LABS: Glucose Point of Care 114 mg/dl (65-105)
[2022-01-19 21:22] VITALS: BP 125/62; PULSE 92; RESP 18; TEMP 36.6; O2SAT 99
[2022-01-19 22:11] LABS: Glucose Point of Care 99 mg/dl (65-105)
[2022-01-20] VITALS (7 sets, daily range): BP systolic 114–129; BP diastolic 62–78; PULSE 65–94; RESP 16–20; TEMP 36.4–36.9; O2SAT 95–100
[2022-01-20] MEDS: METOPROLOL TARTRATE INJ 5 MG/5 ML VIAL IV PUSH ×2 (00:46→09:02)
[2022-01-20 05:52] LABS: Anion Gap 4 mmol/L (8-16); Blood Urea Nitrogen 12 mg/dL (7-17); Calcium 8.7 mg/dL (8.4-10.2); Carbon Dioxide 28 mmol/L (22-30); Chloride 103 mmol/L (98-107); Estimated CRCL calculation 56 ml/min; Estimated Glomerular Filt Rate > 60; Glucose 102 mg/dL (65-110); Potassium 4.1 mmol/L (3.4-5.0); Sodium 135 mmol/L (137-145)
[2022-01-20 05:52] LABS: Hemoglobin 10.4 g/dL (12.0-15.0); Mean Corpuscular HGB Conc 32.5 g/dl (32-36); Mean Corpuscular Hemoglobin 30.7 pg (26-34); Mean Corpuscular Volume 94.4 fl (80-100); Mean Platelet Volume 12.3 fl (7.4-10.4); Platelet Count Result 163 k/mm3 (150-375); Red Blood Count 3.39 M/mm3 (4.2-5.4); Red Cell Distribution Width 13.8 % (11.5-14.5); White Blood Count 12.2 K/mm3 (4.5-10.0)
[2022-01-20] MEDS: LEVOTHYROXINE SODIUM 50 MCG TABLET PO (06:15)
[2022-01-20] MEDS: CENTRAL LINE FLUSH 10 ML IV PUSH ×3 (06:18→20:19)
--- NOTE | 2022-01-20 08:20 | PM.PNGS ---
Progress Note: A&P Assessment and Plan (1) Small bowel obstruction: Code(s): K56.609 - Unspecified intestinal obstruction, unspecified as to partial versus complete obstruction Status: Acute Assessment and Plan: Start MiraLax daily and will give dose of Milk of Mag Increase activity Await return of bowel function Subjective Subjective Date/Time Seen: 01/20/22 08:20 Interval history: Still no BM. Tolerating full liquids. No nausea/vomiting. Passing flatus. Not ambulating much because her gout is flaring up. Exam GI: Inspection: incision (Intact with glue) GI Palp: Yes Soft to palpation and Yes Tenderness to palpation present (GI) (incisional) Auscultation: normal bowel sounds Objective Data Vital Signs Vital Signs: Vital Signs - 24 hr 01/19/22 14:50 01/19/22 17:06 01/19/22 21:22 Temperature 37.1 C 36.6 C Pulse Rate 98 98 92 Respiratory Rate 18 18 Blood Pressure 125/81 125/62 Pulse Oximetry 100 99 01/20/22 00:46 01/20/22 06:23 Temperature 36.4 C Pulse Rate 94 86 Respiratory Rate 16 Blood Pressure 129/76 Pulse Oximetry 95 Intake/Output Intake/Output: Intake & Output 01/17/22 01/18/22 01/19/22 01/20/22 23:59 23:59 23:59 23:59 Intake Total 3255 3615 2220 150 Output Total 700 2000 1300 Balance 2555 1615 920 150 Meds/Results Medications: Active Medications Generic Name Dose Route Start Last Admin Trade Name Freq PRN Reason Stop Dose Admin Acetaminophen 650 mg 01/18/22 12:23 01/19/22 08:06 Acetaminophen 325 Mg Tablet PO 650 mg Q6H PRN Administration Mild Pain (1-3) or Fever Hydrocodone Bitart/Acetaminophen 1 tab 01/19/22 14:27 Hydrocodone/Acetaminophen (*Crx) 5-325 Mg Tablet PO Q4H PRN Pain Rated 4-6 Alprazolam 0.5 mg 01/19/22 14:24 Alprazolam (*Crx) 0.5 Mg Tablet PO DAILY PRN Anxiety Buspirone HCl 10 mg 01/19/22 17:00 01/19/22 17:06 Buspirone Hcl 10 Mg Tablet PO 10 mg BID JEANNE Administration Cyclobenzaprine HCl 5 mg 01/18/22 14:25 01/18/22 14:35 Cyclobenzaprine Hcl 5 Mg Tablet PO 5 mg Q8H PRN Administration Muscle Spasm Dextrose 12.5 gm 01/09/22 16:55 01/13/22 11:54 Dextrose 50% 25 Gm/50 Ml Syringe IV PUSH 12.5 gm PRN PRN Administration Hypoglycemia Protocol Enoxaparin Sodium 40 mg 01/10/22 09:00 01/19/22 08:07 Enoxaparin 40 Mg/0.4 Ml Syringe SUB-Q 40 mg DAILY JEANNE Administration Glucagon 1 mg 01/09/22 16:55 Glucagon For Inj 1 Mg Vial IM PRN PRN Hypoglycemia Protocol Glucose 15 gm 01/09/22 16:55 Glucose Oral Gel 15 Gm Of Glucse In 37.5 Gm Tube PO PRN PRN Hypoglycemia Protocol Hydralazine HCl 10 mg 01/09/22 16:56 01/10/22 21:01 Hydralazine Hcl 20 Mg/Ml Vial IV PUSH 10 mg Q8H PRN Administration Blood Pressure - High Dextrose 1,000 mls @ 100 mls/hr 01/09/22 16:55 Dextrose 5% 1,000 Ml IVPB PRN PRN Hypoglycemia Protocol Dextrose 1,000 mls @ 50 mls/hr 01/14/22 13:36 Dextrose 10% IV CONT .Q20H PRN if PN is interrupted Insulin Aspart 2 - 5 units 01/09/22 17:00 01/19/22 17:06 Insulin Aspart (*Bkc) 100 Units/Ml SUB-Q Not Given TIDWM JEANNE Protocol Levothyroxine Sodium 50 mcg 01/20/22 06:30 01/20/22 06:15 Levothyroxine Sodium 50 Mcg Tablet PO 50 mcg DAILY@0630 JEANNE Administration Magnesium Hydroxide 30 ml 01/20/22 08:19 Magnesium Hydroxide Susp 30 Ml Udc PO 01/20/22 08:20 ONCE ONE Metoprolol Tartrate 5 mg 01/11/22 08:35 01/20/22 00:46 Metoprolol Tartrate Inj 5 Mg/5 Ml Vial IV PUSH 5 mg Q8H JEANNE Administration Ondansetron HCl 4 mg 01/09/22 14:55 01/17/22 20:06 Ondansetron Inj 4 Mg/2 Ml Vial IV PUSH 4 mg Q4H PRN Administration Nausea And Vomiting Phenol 1 spray 01/11/22 12:55 Phenol/Sod Pheno [place] Anna (*Bkc) MUCOUS MEM PRN PRN Sore Throat Polyethylene Glycol 17 gm 01/20/22 09:0
[2022-01-20] MEDS: VENLAFAXINE HCL 75 MG TABLET PO (09:02)
[2022-01-20] MEDS: ENOXAPARIN 40 MG/0.4 ML SYRINGE SUB-Q (09:02)
[2022-01-20] MEDS: busPIRone HCL 10 MG TABLET PO ×2 (09:02→18:02)
[2022-01-20] MEDS: ONDANSETRON INJ 4 MG/2 ML VIAL IV PUSH (09:50)
[2022-01-20] MEDS: ALPRAZolam (*CRX) 0.5 MG TABLET PO (09:53)
--- NOTE | 2022-01-20 10:15 | PM.IMPN ---
Progress Note: A&P Assessment and Plan (1) Small bowel obstruction: Code(s): K56.609 - Unspecified intestinal obstruction, unspecified as to partial versus complete obstruction Status: Acute Assessment and Plan: General surgery consulted to further evaluate small bowel obstruction if the patient needs surgical intervention or fails to improve with NG decompression. Clear liquids started advanced to full liquids Repeat KUB did not show significant changes. 01/15/2022 Surgical intervention was performed on 01/15/22 Pain medications on board GS to manage post op care diet advanced per GS, currently on Clear liq P.r.n. Anti emetics, avoid Reglan Bowel regimen added will need to have a BM (2) Type 2 diabetes mellitus: Code(s): E11.9 - Type 2 diabetes mellitus without complications Status: Acute Assessment and Plan: Glucose 102 Insulin sliding scale Hold oral hypoglycemics while the patient remains NPO perform Accu-Cheks q.6 hour Trend glucose Adjust therapy as indicated Hold Ozempic as this would probably not be beneficial to her since it does slow gastric emptying (3) Cardiomyopathy: Code(s): I42.9 - Cardiomyopathy, unspecified Status: Acute Assessment and Plan: history of a nonischemic cardiomyopathy status post Bi V ICD placement most recent echo does show a normal systolic function with grade 1 diastolic dysfunction resume cardiac medications once patient is able to tolerate oral intake No signs or symptoms of heart failure at this time Strict intake and output Daily weights. Cardiology was consulted for risk management prior to surgery Patient's sotalol was on hold, continue beta-tracie replacement intravenously (4) Hypertension: Code(s): I10 - Essential (primary) hypertension Status: Acute Assessment and Plan: Current BP is 129/76 p.r.n. hydralazine available if systolic blood pressure greater than 180 Patient's sotalol is on hold, continue beta-tracie replacement intravenously Trend BP Adjust therapy as indicated Will need to add the sotalol back with EKG and cardiology involvement (5) Leukocytosis: Code(s): D72.829 - Elevated white blood cell count, unspecified Status: Acute Assessment and Plan: leukocytosis noted WBC are 12.2 (01/20/22) Continues to be afebrile. Probably from inflammatory response Continue to trend labs (6) Thrombocytopenia: Code(s): D69.6 - Thrombocytopenia, unspecified Status: Acute Assessment and Plan: Current PLT 163 (01/20/22) monitor for signs and symptoms of blood loss or bleeding Monitor CBC/platelet count (7) Hypokalemia: Code(s): E87.6 - Hypokalemia Status: Acute Assessment and Plan: Monitor serum electrolytes Replete as necessary Time Spent With Patient Time with patient: Greater than 35 minutes Subjective Date/time seen: 01/20/22 10:15 Interval history: 01/09/22 16:45 Narrative: Ms. Pantoja is a 71-year-old female who presented emergency room with complaints of abdominal pain and nausea that started yesterday. Patient is in quite a bit of pain at this point and is not wanting to speak very long periods of time so it is somewhat difficult to get a history from her. Patient states that she began having nausea with dry heaves as well as lower abdominal pain yesterday. Patient states she has not had a bowel movement last few days, but this is not abnormal for her. Patient states that she was passing gas this morning. Patient states she has been having right lower quadrant pain more so the left lower quadrant pain. Upon evaluation in emergency room patient underwent CT scan that did show small bowel obstruction and General surgery was consulted. It was recommended an NG to be placed and patient be on bowel rest as well as hydrated with IV fluids.
--- NOTE | 2022-01-20 10:15 | P.PNIM_ITS ---
Progress Note: A&P Assessment and Plan (1) Small bowel obstruction: Code(s): K56.609 - Unspecified intestinal obstruction, unspecified as to partial versus complete obstruction Status: Acute Assessment and Plan: * General surgery consulted to further evaluate small bowel obstruction if the patient needs surgical intervention or fails to improve with NG decompression. * Clear liquids started advanced to full liquids * Repeat KUB did not show significant changes. 01/15/2022 * Surgical intervention was performed on 01/15/22 * Pain medications on board * to manage post op care * diet advanced per GS, currently on Clear liq * P.r.n. Anti emetics, avoid Reglan * Bowel regimen added * will need to have a BM (2) Type 2 diabetes mellitus: Code(s): E11.9 - Type 2 diabetes mellitus without complications Status: Acute Assessment and Plan: * Glucose 102 * Insulin sliding scale * Hold oral hypoglycemics * while the patient remains NPO perform Accu-Cheks q.6 hour * Trend glucose * Adjust therapy as indicated * Hold Ozempic as this would probably not be beneficial to her since it does slow gastric emptying (3) Cardiomyopathy: Code(s): I42.9 - Cardiomyopathy, unspecified Status: Acute Assessment and Plan: * history of a nonischemic cardiomyopathy status post Bi V ICD placement * most recent echo does show a normal systolic function with grade 1 diastolic dysfunction * resume cardiac medications once patient is able to tolerate oral intake * No signs or symptoms of heart failure at this time * Strict intake and output * Daily weights. * Cardiology was consulted for risk management prior to surgery * Patient's sotalol was on hold, continue beta-tracie replacement intravenously (4) Hypertension: Code(s): I10 - Essential (primary) hypertension Status: Acute Assessment and Plan: * Current BP is 129/76 * p.r.n. hydralazine available if systolic blood pressure greater than 180 * Patient's sotalol is on hold, continue beta-tracie replacement intravenously * Trend BP * Adjust therapy as indicated * Will need to add the sotalol back with EKG and cardiology involvement (5) Leukocytosis: Code(s): D72.829 - Elevated white blood cell count, unspecified Status: Acute Assessment and Plan: * leukocytosis noted * WBC are 12.2 (01/20/22) * Continues to be afebrile. * Probably from inflammatory response * Continue to trend labs (6) Thrombocytopenia: Code(s): D69.6 - Thrombocytopenia, unspecified Status: Acute Assessment and Plan: * Current PLT 163 (01/20/22) * monitor for signs and symptoms of blood loss or bleeding * Monitor CBC/platelet count (7) Hypokalemia: Code(s): E87.6 - Hypokalemia Status: Acute Assessment and Plan: * Monitor serum electrolytes * Replete as necessary Time Spent With Patient Time with patient: Greater than 35 minutes Subjective Date/time seen: 01/20/22 10:15 Interval history: 01/09/22 16:45 Narrative: Ms. Pantoja is a 71-year-old female who presented emergency room with complaints of abdominal pain and nausea that started yesterday. Patient is in quite a bit of pain at this point and is not wanting to speak very long periods of time so it is somewhat difficult to get a history from her. Patient states that she began having joleen
[2022-01-20 10:58] LABS: Glucose Point of Care 120 mg/dl (65-105)
[2022-01-20 11:58] LABS: Glucose Point of Care 132 mg/dl (65-105)
--- NOTE | 2022-01-20 12:00 | PM.PNCARD ---
Progress Note: A&P Additional Plan 71-year-old woman with: Nonischemic cardiomyopathy being managed with sotalol for ventricular arrhythmias and Entresto. Admitted here with a small-bowel obstruction. Status post surgical resection for this and now doing well. Will discontinue her IV metoprolol and go back to her oral sotalol regimen. Watch vital signs and consider resuming Entresto within the next 48 hours if she tolerates the beta-tracie without any problems. Reinaldo Perez MD [facility] Subjective Date/time seen: 01/20/22 12:00 Interval history: 71-YEAR-OLD ADMITTED FOR SMALL-BOWEL OBSTRUCTION. HAS SIGNIFICANT CARDIAC HISTORY. Date of service 01/12/2022: NG still in place. She has no chest pain, shortness of breath. Dealing with some anxiety. No edema Date of service 01/13/2022: No chest pain, shortness of breath, edema. NG still in place Date of service 01/14/2022: Feels about the same today. She does have some abdominal pain. Denies any chest pain, shortness breath, swelling. Date of service 01/16/2022: Status post surgery yesterday. Still NG in place but feels okay but in pain in abdomen. No chest pain though or shortness of breath Date of service 01/17/2022: Doing o.k. She is still having abdominal pain but only when she moves. Remains NPO on TPN and NG in place. Date of service 01/18/2022: A little better today, still having some abdominal pain. Complaining of being thirsty and hungry. Has some neck stiffness. No chest pain. Date of service 01/19/2022: Patient is tolerating clear liquid diet at this time. Postop day 3. Following surgery for small bowel obstruction/ small bowel resection. Date of service 01/20/2022: Patient of it nauseated earlier. Finally had a bowel movement this morning. Diet is being advanced. Believes he will a be able to take p.o. medication now Exam Const: General: comfortable and no acute distress Other: Pleasant older lady lying comfortably in bed. Alert and oriented. NG tube in place. HENMT: Mouth: Yes moist mucous membranes Eyes: Sclera: sclerae normal Neck: Neck: supple and no JVD Other: Resp: Effort & Inspection: normal respiratory effort Auscultation: clear to auscultation bilaterally Cardio: Rate: regular rate Rhythm: regular rhythm Other: soft systolic murmur that does not radiate from the left sternal border GI: Other: Abdomen is soft, bowel sounds hypoactive. Skin: General skin exam: normal color Neuro: Cognition (Neuro): normal cognition Extrem: General: normal to inspection Other: no edema good distal pulses Objective Data Vital Signs Vital Signs: Vital Signs - 24 hr 01/19/22 14:50 01/19/22 17:06 01/19/22 21:22 Temperature 37.1 C 36.6 C Pulse Rate 98 98 92 Respiratory Rate 18 18 Blood Pressure 125/81 125/62 Pulse Oximetry 100 99 01/20/22 00:46 01/20/22 06:23 01/20/22 09:02 Temperature 36.4 C Pulse Rate 94 86 65 Respiratory Rate 16 Blood Pressure 129/76 Pulse Oximetry 95 Intake/Output Intake/Output: Intake & Output 01/17/22 01/18/22 01/19/22 01/20/22 23:59 23:59 23:59 23:59 Intake Total 3255 3615 2220 150 Output Total 700 2000 1300 Balance 2555 1615 920 150 Meds/Results Medications: Active Medications Generic Name Dose Route Start Last Admin Trade Name Mauriceq PRN Reason Stop Dose Admin Acetaminophen 650 mg 01/18/22 12:23 01/19/22 08:06 Acetaminophen 325 Mg Tablet PO 650 mg Q6H PRN Administration Mild Pain (1-3) or Fever Hydrocodone Bitart/Acetaminophen 1 tab 01/19/22 14:27 Hydrocodone/Acetaminophen (*Crx) 5-325 Mg Tablet PO Q4H PRN Pain Rated 4-6 Alprazolam 0.5 mg 01/19/22 14:24 01/20/22 09:53 Alprazolam (*Crx) 0.5 Mg Tablet PO 0.5 mg DAILY PRN Administration Anxiety Buspirone HCl 10 mg 01/19/22 17:00 01/20/22 09:02 Buspirone Hcl 10 Mg Tablet PO 10 mg BID JEANNE Administration Cyclobenzaprine HCl 5 mg 01/18/22 14:25 03
[2022-01-20 16:35] LABS: Glucose Point of Care 103 mg/dl (65-105)
[2022-01-20] MEDS: SOTALOL HCL 80 MG TABLET PO (20:19)
[2022-01-20 21:07] LABS: Glucose Point of Care 97 mg/dl (65-105)
[2022-01-21] MEDS: LEVOTHYROXINE SODIUM 50 MCG TABLET PO (05:52)
[2022-01-21] MEDS: CENTRAL LINE FLUSH 10 ML IV PUSH ×3 (05:52→20:14)
[2022-01-21 06:00] VITALS: BP 102/63; PULSE 74; RESP 16; TEMP 36.1; O2SAT 95
[2022-01-21 06:17] LABS: Hematocrit 30.4 % (37.0-47.0); Mean Corpuscular HGB Conc 32.9 g/dl (32-36); Mean Corpuscular Hemoglobin 31.4 pg (26-34); Mean Corpuscular Volume 95.6 fl (80-100); Mean Platelet Volume 12.2 fl (7.4-10.4); Platelet Count Result 182 k/mm3 (150-375); Red Blood Count 3.18 M/mm3 (4.2-5.4); Red Cell Distribution Width 13.8 % (11.5-14.5); White Blood Count 10.9 K/mm3 (4.5-10.0)
[2022-01-21 06:45] LABS: Anion Gap 3 mmol/L (8-16); Blood Urea Nitrogen 14 mg/dL (7-17); Calcium 8.3 mg/dL (8.4-10.2); Carbon Dioxide 29 mmol/L (22-30); Chloride 103 mmol/L (98-107); Estimated CRCL calculation 55 ml/min; Estimated Glomerular Filt Rate > 60; Glucose 92 mg/dL (65-110); Magnesium 1.8 mg/dL (1.6-2.3); Sodium 135 mmol/L (137-145)
--- NOTE | 2022-01-21 08:42 | PM.PNCARD ---
Progress Note: A&P Assessment and Plan (1) Cardiomyopathy: Code(s): I42.9 - Cardiomyopathy, unspecified <JANNETH Metcalf - Last Filed: 01/21/22 11:14> Status: Acute <ALVARO MetcalfC - Last Filed: 01/21/22 11:14> Assessment and Plan: She is able to take p.o. medications at this point. Her sotalol has been resumed. Check daily EKG for QTc monitoring. QTc 483 today. Monitor renal function and electrolytes with daily BMP. Close BP monitoring now that Entresto is being reintroduced today. <JANNETH Metcalf - Last Filed: 01/21/22 11:14> (2) Cardiac dysrhythmia: Code(s): I49.9 - Cardiac arrhythmia, unspecified <JANNETH Metcalf - Last Filed: 01/21/22 11:14> Status: Chronic <JANNETH Metcalf - Last Filed: 01/21/22 11:14> Assessment and Plan: Back on sotalol as above. <ALVARO MetcalfC - Last Filed: 01/21/22 11:14> (3) Hypertension: Code(s): I10 - Essential (primary) hypertension <JANNETH Metcalf - Last Filed: 01/21/22 11:14> Status: Acute <JANNETH Metcalf - Last Filed: 01/21/22 11:14> Assessment and Plan: At goal <ALVARO MetcalfC - Last Filed: 01/21/22 11:14> (4) Small bowel obstruction: Code(s): K56.609 - Unspecified intestinal obstruction, unspecified as to partial versus complete obstruction <JANNETH Metcalf - Last Filed: 01/21/22 11:14> Status: Acute <JANNETH Metcalf - Last Filed: 01/21/22 11:14> Assessment and Plan: S/p ex lap and small bowel resection <JANNETH Metcalf - Last Filed: 01/21/22 11:14> (5) Hypokalemia: Code(s): E87.6 - Hypokalemia <JANNETH Metcalf - Last Filed: 01/21/22 11:14> Status: Acute <JANNETH Metcalf - Last Filed: 01/21/22 11:14> Assessment and Plan: Normal <JANNETH Metcalf - Last Filed: 01/21/22 11:14> Additional Plan Attending addendum: I agree with the above documentation and plan of care as outlined. <Jayant Voss MD - Last Filed: 01/21/22 17:01> Subjective Date/time seen: 01/21/22 08:42 <JANNETH Metcalf - Last Filed: 01/21/22 11:14> Interval history: 71-YEAR-OLD ADMITTED FOR SMALL-BOWEL OBSTRUCTION. HAS SIGNIFICANT CARDIAC HISTORY. Date of service 01/12/2022: NG still in place. She has no chest pain, shortness of breath. Dealing with some anxiety. No edema Date of service 01/13/2022: No chest pain, shortness of breath, edema. NG still in place Date of service 01/14/2022: Feels about the same today. She does have some abdominal pain. Denies any chest pain, shortness breath, swelling. Date of service 01/16/2022: Status post surgery yesterday. Still NG in place but feels okay but in pain in abdomen. No chest pain though or shortness of breath Date of service 01/17/2022: Doing o.k. She is still having abdominal pain but only when she moves. Remains NPO on TPN and NG in place. Date of service 01/18/2022: A little better today, still having some abdominal pain. Complaining of being thirsty and hungry. Has some neck stiffness. No chest pain. Date of service 01/19/2022: Patient is tolerating clear liquid diet at this time. Postop day 3. Following surgery for small bowel obstruction/ small bowel resection. Date of service 01/20/2022: Patient of it nauseated earlier. Finally had a bowel movement this morning. Diet is being advanced. Believes he will a be able to take p.o. medication now Date of service : Feeling better today. She still has some abdominal pain but it has improved. She does not have any chest pain or shortness of breath, no palpitations. Complaining of some pain in her right foot.
--- NOTE | 2022-01-21 09:04 | ECG_ITS ---
Measurements Intervals [place] Rate: 70 P: 40 NC: 183 QRS: 144 QRSD: 106 T: 17 QT: 447 QTc: 483 Interpretive Statements SINUS RHYTHM INCOMPLETE RIGHT BUNDLE-BRANCH BLOCK BASELINE ARTIFACT NONSPECIFIC ST ABNORMALITY CANNOT RULE OUT ANTEROLATERAL INFARCTION, AGE INDETERMINATE ABNORMAL ECG COMPARED TO ECG 01/11/2022 12:17:39 INCOMPLETE RIGHT BUNDLE-BRANCH BLOCK IS PRESENT, PVCS NO LONGER SEEN Electronically Signed On 01-21-2022 12:27:59 CDT by Jayant Voss M.D.
[2022-01-21] MEDS: busPIRone HCL 10 MG TABLET PO ×2 (09:34→16:31)
[2022-01-21] MEDS: SOTALOL HCL 80 MG TABLET PO ×2 (09:34→20:14)
[2022-01-21] MEDS: ENOXAPARIN 40 MG/0.4 ML SYRINGE SUB-Q (09:34)
[2022-01-21] MEDS: MAGNESIUM SULF 2 GM/WATER 50ML 2 GM/50 ML BAG IVPB (09:34)
[2022-01-21] MEDS: VENLAFAXINE HCL 75 MG TABLET PO (09:34)
[2022-01-21] MEDS: polyethylene glycoL 3350 17 GM POWD.PACK PO (09:35)
--- NOTE | 2022-01-21 10:45 | PM.IMPN ---
Progress Note: A&P Assessment and Plan (1) Small bowel obstruction: Code(s): K56.609 - Unspecified intestinal obstruction, unspecified as to partial versus complete obstruction Status: Acute Assessment and Plan: General surgery consulted to further evaluate small bowel obstruction if the patient needs surgical intervention or fails to improve with NG decompression. Clear liquids started advanced to full liquids Repeat KUB did not show significant changes. 01/15/2022 Surgical intervention was performed on 01/15/22 Pain medications on board GS to manage post op care diet advanced per GS, Advanced as tolerated P.r.n. Anti emetics, avoid Reglan Bowel regimen added will need to have a BM (2) Type 2 diabetes mellitus: Code(s): E11.9 - Type 2 diabetes mellitus without complications Status: Acute Assessment and Plan: Glucose 92 Insulin sliding scale Hold oral hypoglycemics while the patient remains NPO perform Accu-Cheks q.6 hour Trend glucose Adjust therapy as indicated Hold Ozempic as this would probably not be beneficial to her since it does slow gastric emptying (3) Cardiomyopathy: Code(s): I42.9 - Cardiomyopathy, unspecified Status: Acute Assessment and Plan: history of a nonischemic cardiomyopathy status post Bi V ICD placement most recent echo does show a normal systolic function with grade 1 diastolic dysfunction resume cardiac medications once patient is able to tolerate oral intake No signs or symptoms of heart failure at this time Strict intake and output Daily weights. Cardiology was consulted for risk management prior to surgery Patient's sotalol was on hold, continue beta-tracie replacement intravenously (4) Hypertension: Code(s): I10 - Essential (primary) hypertension Status: Acute Assessment and Plan: Current BP is 123/65 p.r.n. hydralazine available if systolic blood pressure greater than 180 Patient's sotalol is on hold, continue beta-tracie replacement intravenously Trend BP Adjust therapy as indicated Will need to add the sotalol back with EKG and cardiology involvement (5) Leukocytosis: Code(s): D72.829 - Elevated white blood cell count, unspecified Status: Acute Assessment and Plan: leukocytosis noted WBC is 10.9 (01/20/22) Continues to be afebrile. Probably from inflammatory response Continue to trend labs (6) Thrombocytopenia: Code(s): D69.6 - Thrombocytopenia, unspecified Status: Acute Assessment and Plan: Current PLT 182 (01/20/22) monitor for signs and symptoms of blood loss or bleeding Monitor CBC/platelet count (7) Hypokalemia: Code(s): E87.6 - Hypokalemia Status: Acute Assessment and Plan: K is 4.0 Monitor serum electrolytes Replete as necessary Time Spent With Patient Time with patient: Greater than 35 minutes Subjective Date/time seen: 01/21/22 10:45 Interval history: 01/09/22 16:45 Narrative: Ms. Pantoja is a 71-year-old female who presented emergency room with complaints of abdominal pain and nausea that started yesterday. Patient is in quite a bit of pain at this point and is not wanting to speak very long periods of time so it is somewhat difficult to get a history from her. Patient states that she began having nausea with dry heaves as well as lower abdominal pain yesterday. Patient states she has not had a bowel movement last few days, but this is not abnormal for her. Patient states that she was passing gas this morning. Patient states she has been having right lower quadrant pain more so the left lower quadrant pain. Upon evaluation in emergency room patient underwent CT scan that did show small bowel obstruction and General surgery was consulted. It was recommended an NG to be placed and patient be on bowel rest as well as hydrated with IV
--- NOTE | 2022-01-21 10:45 | P.PNIM_ITS ---
Progress Note: A&P Assessment and Plan (1) Small bowel obstruction: Code(s): K56.609 - Unspecified intestinal obstruction, unspecified as to partial versus complete obstruction Status: Acute Assessment and Plan: * General surgery consulted to further evaluate small bowel obstruction if the patient needs surgical intervention or fails to improve with NG decompression. * Clear liquids started advanced to full liquids * Repeat KUB did not show significant changes. 01/15/2022 * Surgical intervention was performed on 01/15/22 * Pain medications on board * to manage post op care * diet advanced per GS, Advanced as tolerated * P.r.n. Anti emetics, avoid Reglan * Bowel regimen added * will need to have a BM (2) Type 2 diabetes mellitus: Code(s): E11.9 - Type 2 diabetes mellitus without complications Status: Acute Assessment and Plan: * Glucose 92 * Insulin sliding scale * Hold oral hypoglycemics * while the patient remains NPO perform Accu-Cheks q.6 hour * Trend glucose * Adjust therapy as indicated * Hold Ozempic as this would probably not be beneficial to her since it does slow gastric emptying (3) Cardiomyopathy: Code(s): I42.9 - Cardiomyopathy, unspecified Status: Acute Assessment and Plan: * history of a nonischemic cardiomyopathy status post Bi V ICD placement * most recent echo does show a normal systolic function with grade 1 diastolic dysfunction * resume cardiac medications once patient is able to tolerate oral intake * No signs or symptoms of heart failure at this time * Strict intake and output * Daily weights. * Cardiology was consulted for risk management prior to surgery * Patient's sotalol was on hold, continue beta-tracie replacement intravenously (4) Hypertension: Code(s): I10 - Essential (primary) hypertension Status: Acute Assessment and Plan: * Current BP is 123/65 * p.r.n. hydralazine available if systolic blood pressure greater than 180 * Patient's sotalol is on hold, continue beta-tracie replacement intravenously * Trend BP * Adjust therapy as indicated * Will need to add the sotalol back with EKG and cardiology involvement (5) Leukocytosis: Code(s): D72.829 - Elevated white blood cell count, unspecified Status: Acute Assessment and Plan: * leukocytosis noted * WBC is 10.9 (01/20/22) * Continues to be afebrile. * Probably from inflammatory response * Continue to trend labs (6) Thrombocytopenia: Code(s): D69.6 - Thrombocytopenia, unspecified Status: Acute Assessment and Plan: * Current PLT 182 (01/20/22) * monitor for signs and symptoms of blood loss or bleeding * Monitor CBC/platelet count (7) Hypokalemia: Code(s): E87.6 - Hypokalemia Status: Acute Assessment and Plan: * K is 4.0 * Monitor serum electrolytes * Replete as necessary Time Spent With Patient Time with patient: Greater than 35 minutes Subjective Date/time seen: 01/21/22 10:45 Interval history: 01/09/22 16:45 Narrative: Ms. Pantoja is a 71-year-old female who presented emergency room with complaints of abdominal pain and nausea that started yesterday. Patient is in quite a bit of pain at this point and is not wanting to speak very long periods of time so it is somewhat difficult to get a history from her. Patient states that she beg
--- NOTE | 2022-01-21 14:05 | PM.PNGS ---
Progress Note: A&P Assessment and Plan (1) Small bowel obstruction: Code(s): K56.609 - Unspecified intestinal obstruction, unspecified as to partial versus complete obstruction Status: Acute Assessment and Plan: awaiting full ROBF, still feels full juliano when eating, encourage po, ambulation Subjective Subjective Date/Time Seen: 01/21/22 14:05 feels better, but not much appetite, had BM yesterday Review of Systems Review of Systems: All systems reviewed & are unremarkable except as noted in HPI and below Exam Const: General: cooperative, comfortable and no acute distress Resp: Auscultation: clear to auscultation bilaterally Cardio: Rate: regular rate Rhythm: regular rhythm GI: Inspection: normal to inspection, non-distended and incision GI Palp: No abdominal tenderness, Yes Soft to palpation and No Tenderness to palpation present (GI) Objective Data Vital Signs Vital Signs: Vital Signs - 24 hr 01/20/22 20:00 01/20/22 20:19 01/20/22 22:00 Temperature 36.7 C Pulse Rate 88 88 88 Respiratory Rate 18 20 Blood Pressure 114/62 Pulse Oximetry 100 99 01/21/22 06:00 Temperature 36.1 C L Pulse Rate 74 Respiratory Rate 16 Blood Pressure 102/63 Pulse Oximetry 95 Intake/Output Intake/Output: Intake & Output 01/18/22 01/19/22 01/20/22 01/21/22 23:59 23:59 23:59 23:59 Intake Total 3615 2220 270 630 Output Total 2000 1300 500 Balance 1615 920 -230 630 Meds/Results Medications: Active Medications Generic Name Dose Route Start Last Admin Trade Name Freq PRN Reason Stop Dose Admin Acetaminophen 650 mg 01/18/22 12:23 01/19/22 08:06 Acetaminophen 325 Mg Tablet PO 650 mg Q6H PRN Administration Mild Pain (1-3) or Fever Hydrocodone Bitart/Acetaminophen 1 tab 01/19/22 14:27 Hydrocodone/Acetaminophen (*Crx) 5-325 Mg Tablet PO Q4H PRN Pain Rated 4-6 Alprazolam 0.5 mg 01/19/22 14:24 01/20/22 09:53 Alprazolam (*Crx) 0.5 Mg Tablet PO 0.5 mg DAILY PRN Administration Anxiety Buspirone HCl 10 mg 01/19/22 17:00 01/21/22 09:34 Buspirone Hcl 10 Mg Tablet PO 10 mg BID JEANNE Administration Cyclobenzaprine HCl 5 mg 01/18/22 14:25 01/18/22 14:35 Cyclobenzaprine Hcl 5 Mg Tablet PO 5 mg Q8H PRN Administration Muscle Spasm Dextrose 12.5 gm 01/09/22 16:55 01/13/22 11:54 Dextrose 50% 25 Gm/50 Ml Syringe IV PUSH 12.5 gm PRN PRN Administration Hypoglycemia Protocol Enoxaparin Sodium 40 mg 01/10/22 09:00 01/21/22 09:34 Enoxaparin 40 Mg/0.4 Ml Syringe SUB-Q 40 mg DAILY JEANNE Administration Glucagon 1 mg 01/09/22 16:55 Glucagon For Inj 1 Mg Vial IM PRN PRN Hypoglycemia Protocol Glucose 15 gm 01/09/22 16:55 Glucose Oral Gel 15 Gm Of Glucse In 37.5 Gm Tube PO PRN PRN Hypoglycemia Protocol Hydralazine HCl 10 mg 01/09/22 16:56 01/10/22 21:01 Hydralazine Hcl 20 Mg/Ml Vial IV PUSH 10 mg Q8H PRN Administration Blood Pressure - High Dextrose 1,000 mls @ 100 mls/hr 01/09/22 16:55 Dextrose 5% 1,000 Ml IVPB PRN PRN Hypoglycemia Protocol Dextrose 1,000 mls @ 50 mls/hr 01/14/22 13:36 Dextrose 10% IV CONT .Q20H PRN if PN is interrupted Insulin Aspart 2 - 5 units 01/09/22 17:00 01/21/22 12:05 Insulin Aspart (*Bkc) 100 Units/Ml SUB-Q Not Given TIDWM [facility] Protocol Levothyroxine Sodium 50 mcg 01/20/22 06:30 01/21/22 05:52 Levothyroxine Sodium 50 Mcg Tablet PO 50 mcg DAILY@0630 JEANNE Administration Ondansetron HCl 4 mg 01/09/22 14:55 01/20/22 09:50 Ondansetron Inj 4 Mg/2 Ml Vial IV PUSH 4 mg Q4H PRN Administration Nausea And Vomiting Phenol 1 spray 01/11/22 12:55 Phenol/Sod Pheno [place] (*Bkc) MUCOUS MEM PRN PRN Sore Throat Polyethylene Glycol 17 gm 01/20/22 09:00 01/21/22 09:35 Polyethylene Glycol 3350 17 Gm Powd.Pack PO 17 gm QAM JEANNE Administ
[2022-01-21 14:14] VITALS: BP 123/65; PULSE 71; RESP 18; TEMP 36.1; O2SAT 100
[2022-01-21 16:39] LABS: Glucose Point of Care 106 mg/dl (65-105)
[2022-01-21 16:51] LABS: Anion Gap 3 mmol/L (8-16); Blood Urea Nitrogen 15 mg/dL (7-17); Calcium 8.1 mg/dL (8.4-10.2); Carbon Dioxide 29 mmol/L (22-30); Chloride 102 mmol/L (98-107); Estimated CRCL calculation 49 ml/min; Estimated Glomerular Filt Rate > 60; Glucose 95 mg/dL (65-110); Potassium 4.4 mmol/L (3.4-5.0); Sodium 134 mmol/L (137-145)
[2022-01-21 19:38] LABS: Glucose Point of Care 113 mg/dl (65-105)
[2022-01-21 20:00] VITALS: PULSE 74; RESP 18; O2SAT 100
[2022-01-21 20:14] VITALS: PULSE 74
[2022-01-21] MEDS: SACUBITRIL/VALSARTAN 24-26 MG TABLET 1 TAB PO (20:14)
[2022-01-21 22:00] VITALS: BP 129/60; PULSE 73; RESP 18; TEMP 35.9; O2SAT 97
[2022-01-22 06:00] VITALS: BP 100/57; PULSE 67; RESP 18; TEMP 35.9; O2SAT 97
[2022-01-22] MEDS: CENTRAL LINE FLUSH 10 ML IV PUSH (06:19)
[2022-01-22] MEDS: LEVOTHYROXINE SODIUM 50 MCG TABLET PO (06:19)
[2022-01-22 06:53] LABS: Basophils Absolute Auto 0.1 K/mm3 (0.0-0.1); Basophils Percent Auto 0.7 % (0.2-1.2); Eosinophils Absolute Auto 0.6 K/mm3 (0-0.3); Eosinophils Percent Auto 5.3 % (0-4.4); Hematocrit 33.5 % (37.0-47.0); Hemoglobin 10.8 g/dL (12.0-15.0); Immature Granulocyte Absolute 0.25 K/mm3 (0.00-0.031); Immature Granulocyte Percent A 2.3 % (0-0.5); Lymphocytes Absolute Auto 1.38 K/mm3 (0.9-3.2); Lymphocytes Percent Auto 12.8 % (18.3-44.2); Mean Corpuscular HGB Conc 32.2 g/dl (32-36); Mean Corpuscular Hemoglobin 30.9 pg (26-34); Mean Platelet Volume 11.9 fl (7.4-10.4); Monocytes Absolute Auto 1.6 K/mm3 (0.1-0.6); Monocytes Percent Auto 14.9 % (2.6-8.5); Neutrophils Absolute Auto 6.9 K/mm3 (1.3-6.7); Platelet Count Result 244 k/mm3 (150-375); Red Blood Count 3.49 M/mm3 (4.2-5.4); Red Cell Distribution Width 13.8 % (11.5-14.5); White Blood Count 10.8 K/mm3 (4.5-10.0)
[2022-01-22 07:06] LABS: Magnesium 2.1 mg/dL (1.6-2.3)
[2022-01-22 07:37] LABS: Glucose Point of Care 93 mg/dl (65-105)
[2022-01-22 08:03] VITALS: PULSE 67
[2022-01-22] MEDS: VENLAFAXINE HCL 75 MG TABLET PO (08:03)
[2022-01-22] MEDS: SOTALOL HCL 80 MG TABLET PO (08:03)
[2022-01-22] MEDS: SACUBITRIL/VALSARTAN 24-26 MG TABLET 1 TAB PO (08:04)
[2022-01-22] MEDS: busPIRone HCL 10 MG TABLET PO (08:04)
[2022-01-22] MEDS: polyethylene glycoL 3350 17 GM POWD.PACK PO (08:05)
[2022-01-22] MEDS: ENOXAPARIN 40 MG/0.4 ML SYRINGE SUB-Q (08:05)
[2022-01-22 08:08] LABS: Alanine Aminotransferase 10 U/L (4-35); Albumin Level 3.1 g/dL (3.5-5.1); Alkaline Phosphatase 75 U/L (38-126); Anion Gap 5 mmol/L (8-16); Aspartate Amino Transferase 37 U/L (14-36); Bilirubin,Total 0.5 mg/dL (0.2-1.3); Blood Urea Nitrogen 13 mg/dL (7-17); Calcium 8.6 mg/dL (8.4-10.2); Carbon Dioxide 26 mmol/L (22-30); Chloride 102 mmol/L (98-107); Estimated CRCL calculation 49 ml/min; Estimated Glomerular Filt Rate > 60; Glucose 100 mg/dL (65-110); Potassium 4.2 mmol/L (3.4-5.0); Sodium 133 mmol/L (137-145)
--- NOTE | 2022-01-22 09:25 | PM.PNCARD ---
Progress Note: A&P Assessment and Plan (1) Cardiomyopathy: Code(s): I42.9 - Cardiomyopathy, unspecified Status: Acute Assessment and Plan: She is able to take p.o. medications at this point. Her sotalol has been resumed. 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 (3) Hypertension: Code(s): I10 - Essential (primary) hypertension Status: Acute Assessment and Plan: At goal (4) Small bowel obstruction: Code(s): K56.609 - Unspecified intestinal obstruction, unspecified as to partial versus complete obstruction Status: Acute Assessment and Plan: S/p ex lap and small bowel resection (5) Hypokalemia: Code(s): E87.6 - Hypokalemia Status: Acute Assessment and Plan: Normal Subjective Date/time seen: 01/22/22 09:25 Interval history: 71-YEAR-OLD ADMITTED FOR SMALL-BOWEL OBSTRUCTION. HAS SIGNIFICANT CARDIAC HISTORY. Date of service 01/12/2022: NG still in place. She has no chest pain, shortness of breath. Dealing with some anxiety. No edema Date of service 01/13/2022: No chest pain, shortness of breath, edema. NG still in place Date of service 01/14/2022: Feels about the same today. She does have some abdominal pain. Denies any chest pain, shortness breath, swelling. Date of service 01/16/2022: Status post surgery yesterday. Still NG in place but feels okay but in pain in abdomen. No chest pain though or shortness of breath Date of service 01/17/2022: Doing o.k. She is still having abdominal pain but only when she moves. Remains NPO on TPN and NG in place. Date of service 01/18/2022: A little better today, still having some abdominal pain. Complaining of being thirsty and hungry. Has some neck stiffness. No chest pain. Date of service 01/19/2022: Patient is tolerating clear liquid diet at this time. Postop day 3. Following surgery for small bowel obstruction/ small bowel resection. Date of service 01/20/2022: Patient of it nauseated earlier. Finally had a bowel movement this morning. Diet is being advanced. Believes he will a be able to take p.o. medication now Date of service 01/21/2022: Feeling better today. She still has some abdominal pain but it has improved. She does not have any chest pain or shortness of breath, no palpitations. Complaining of some pain in her right foot. Date of service 01/22/2022: Continues to improve. No cardiac complaints but she does have some mild abdominal discomfort and gas. Review of Systems Constitutional: Constitutional: Reports no additional constitutional complaints Eyes: Eyes: Reports no additional eye complaints ENT: Reports system reviewed and no additional complaints, except as documented Cardiovascular: Cardiovascular: Reports as per HPI Respiratory: Respiratory: Reports no additional respiratory complaints Gastrointestinal: Gastrointestinal: Reports as per HPI and Reports abdominal pain Musculoskeletal: Musculoskeletal: Reports arthralgias Neurologic: Reports system reviewed and no additional complaints, except as documented Endocrine: Endocrine: Reports no additional endocrine complaints Hematologic/Lymphatic: Hematologic/Lymphatic: Reports no additional hematologic/lymphatic complaints Allergic/Immunologic: Allergic/Immunologic: Reports no additional allergic/immunologic complaints Exam Const: General: comfortable and no acute distress Other: Pleasant older lady lying comfortably in bed. Alert and oriented. HENMT: Mouth: Yes moist mucous membranes Eyes: Sclera: sclerae normal Neck: Neck: supple and
--- NOTE | 2022-01-22 09:28 | ECG_ITS ---
Measurements Intervals [place] Rate: 65 P: 45 IA: 194 QRS: 148 QRSD: 106 T: 31 QT: 456 QTc: 474 Interpretive Statements SINUS RHYTHM INCOMPLETE RIGHT BUNDLE BRANCH BLOCK LATERAL MYOCARDIAL INFARCTION , OF INDETERMINATE AGE [40+ ms Q WAVE AND/OR ST/T ABNORMALITY IN I/aVL/V5/V6] COMPARED TO ECG 01/21/2022 09:53:39 NO SIGNIFICANT CHANGES Electronically Signed On 01-22-2022 17:28:36 CDT by Reinaldo Perez M.D.
--- NOTE | 2022-01-22 09:45 | PM.DS ---
DS: Admitting Diagnosis Discharge Date 01/22/22 0945 Admitting Diagnosis Small Bowel Obstruction DS: Discharge Diagnosis Discharge Diagnosis (1) Small bowel obstruction: Code(s): K56.609 - Unspecified intestinal obstruction, unspecified as to partial versus complete obstruction Status: Acute Assessment and Plan: General surgery consulted to further evaluate small bowel obstruction if the patient needs surgical intervention or fails to improve with NG decompression. Currently on a low fiber diet Repeat KUB did not show significant changes. 01/15/2022 Surgical intervention was performed on 01/15/22 Pain medications on board GS to manage post op care diet advanced per GS, Advanced as tolerated P.r.n. Anti emetics, avoid Reglan Bowel regimen added will need to have a BM (2) Type 2 diabetes mellitus: Code(s): E11.9 - Type 2 diabetes mellitus without complications Status: Acute Assessment and Plan: Glucose 100 Insulin sliding scale Hold oral hypoglycemics while the patient remains NPO perform Accu-Cheks q.6 hour Trend glucose Adjust therapy as indicated Hold Ozempic as this would probably not be beneficial to her since it does slow gastric emptying (3) Cardiomyopathy: Code(s): I42.9 - Cardiomyopathy, unspecified Status: Acute Assessment and Plan: history of a nonischemic cardiomyopathy status post Bi V ICD placement most recent echo does show a normal systolic function with grade 1 diastolic dysfunction resume cardiac medications once patient is able to tolerate oral intake No signs or symptoms of heart failure at this time Strict intake and output Daily weights. Cardiology was consulted for risk management prior to surgery Patient's sotalol was on hold, continue beta-tracie replacement intravenously (4) Hypertension: Code(s): I10 - Essential (primary) hypertension Status: Acute Assessment and Plan: Current BP is 100/57 p.r.n. hydralazine available if systolic blood pressure greater than 180 Patient's sotalol is on hold, continue beta-tracie replacement intravenously Trend BP Adjust therapy as indicated Will need to add the sotalol back with EKG and cardiology involvement (5) Leukocytosis: Code(s): D72.829 - Elevated white blood cell count, unspecified Status: Acute Assessment and Plan: leukocytosis noted WBC is 10.8 (01/22/22) Continues to be afebrile. Probably from inflammatory response Continue to trend labs (6) Thrombocytopenia: Code(s): D69.6 - Thrombocytopenia, unspecified Status: Acute Assessment and Plan: Current PLT 244 (01/22/22) monitor for signs and symptoms of blood loss or bleeding Monitor CBC/platelet count (7) Hypokalemia: Code(s): E87.6 - Hypokalemia Status: Acute Assessment and Plan: K is 4.2 Monitor serum electrolytes Replete as necessary DS: Summary Hospital Course Hospital Course: Patient is 71-year-old female with past medical history Multiple abdominal surgeries, CVA, cardiac dysrhythmia, hyperlipidemia, hypertension who presented to the ED for severe pain and nausea. X-rays and CTs were done and showed patient had a small bowel obstruction. Conservative therapy was initiated and patient had an NG-tube placed at intermittent suction. General surgery was consulted and patient was taken to the OR for a bowel resection. . Cardiology was also consulted since the patient was on sotalol. Patient has been monitored per tele monitor. Patient was also placed on Clinimax for nutritional support While she was NPO. Blood pressure is stable and has been stable through the entire visit. Patient was also noted to be leukocytotic with elevated white blood cells. Patient has had many bowel movements throughout the last couple days and her diet has been advanced and
--- NOTE | 2022-01-22 09:45 | P.DS_ITS ---
DS: Admitting Diagnosis Discharge Date 01/22/22 0945 Admitting Diagnosis Small Bowel Obstruction DS: Discharge Diagnosis Discharge Diagnosis (1) Small bowel obstruction: Code(s): K56.609 - Unspecified intestinal obstruction, unspecified as to partial versus complete obstruction Status: Acute Assessment and Plan: * General surgery consulted to further evaluate small bowel obstruction if the patient needs surgical intervention or fails to improve with NG decompression. * Currently on a low fiber diet * Repeat KUB did not show significant changes. 01/15/2022 * Surgical intervention was performed on 01/15/22 * Pain medications on board * GS to manage post op care * diet advanced per GS, Advanced as tolerated * P.r.n. Anti emetics, avoid Reglan * Bowel regimen added * will need to have a BM (2) Type 2 diabetes mellitus: Code(s): E11.9 - Type 2 diabetes mellitus without complications Status: Acute Assessment and Plan: * Glucose 100 * Insulin sliding scale * Hold oral hypoglycemics * while the patient remains NPO perform Accu-Cheks q.6 hour * Trend glucose * Adjust therapy as indicated * Hold Ozempic as this would probably not be beneficial to her since it does slow gastric emptying (3) Cardiomyopathy: Code(s): I42.9 - Cardiomyopathy, unspecified Status: Acute Assessment and Plan: * history of a nonischemic cardiomyopathy status post Bi V ICD placement * most recent echo does show a normal systolic function with grade 1 diastolic dysfunction * resume cardiac medications once patient is able to tolerate oral intake * No signs or symptoms of heart failure at this time * Strict intake and output * Daily weights. * Cardiology was consulted for risk management prior to surgery * Patient's sotalol was on hold, continue beta-tracie replacement intravenously (4) Hypertension: Code(s): I10 - Essential (primary) hypertension Status: Acute Assessment and Plan: * Current BP is 100/57 * p.r.n. hydralazine available if systolic blood pressure greater than 180 * Patient's sotalol is on hold, continue beta-tracie replacement intravenously * Trend BP * Adjust therapy as indicated * Will need to add the sotalol back with EKG and cardiology involvement (5) Leukocytosis: Code(s): D72.829 - Elevated white blood cell count, unspecified Status: Acute Assessment and Plan: * leukocytosis noted * WBC is 10.8 (01/22/22) * Continues to be afebrile. * Probably from inflammatory response * Continue to trend labs (6) Thrombocytopenia: Code(s): D69.6 - Thrombocytopenia, unspecified Status: Acute Assessment and Plan: * Current PLT 244 (01/22/22) * monitor for signs and symptoms of blood loss or bleeding * Monitor CBC/platelet count (7) Hypokalemia: Code(s): E87.6 - Hypokalemia Status: Acute Assessment and Plan: * K is 4.2 * Monitor serum electrolytes * Replete as necessary DS: Summary Hospital Course Hospital Course: Patient is 71-year-old female with past medical history Multiple abdominal surgeries, CVA, cardiac dysrhythmia, hyperlipidemia, hypertension who presented to the ED for severe pain and nausea. X-rays and CTs were done and showed patient had a small bowel obstruction. Conservative therapy was initiated and patient had an NG-tube maye
--- NOTE | 2022-01-22 11:41 | PCNFU ---
Nutrition Follow-Up Complete: Altered GI function as related to SBO as evidenced by NPO x 6 days. Goal: Meet estimated nutritional needs Patient is progressing towards goal. We will continue current goal. Pt current nutrition is Low Fiber diet with Ensure Enlive TID. Last recorded weight is 67.6 kg, down from 69.4 kg on admit. Bowel Motility: +BM reported 01/21 Labs Reviewed:Na 133, ALb 3.1,Hct 33.5,Hgb 10.8 Meds Noted:Lovenox, Zofran,Betapace, Synthroid, Miralax, Effexor, Buspar Skin: WNL Additional Notes: Spoke with patient today, she states to not being much of breakfast eater. TPN has been discontinues and diet order advanced to Low Fiber/soft diet. Diet supplements of Ensure Enlive TID are providing an additional 350 kcals and 20 gms protein. Agree with diet orders. Patient Instruction attached with diet information requested for home. Monitoring: Will monitor every 5 days.
[2022-01-22 12:02] LABS: Glucose Point of Care 104 mg/dl (65-105)
--- NOTE | 2022-01-22 14:16 | PM.PNGS ---
Progress Note: A&P Assessment and Plan (1) Small bowel obstruction: Code(s): K56.609 - Unspecified intestinal obstruction, unspecified as to partial versus complete obstruction Status: Acute Assessment and Plan: Continues to improve. Incision healing well. Tolerating soft diet, bowels moving. Pain well controlled without any analgesics at this point. Okay from our standpoint to discharge patient today. F/u with Dr. Pierre in 2 weeks. Discussed d/c instructions with patient. Additional Plan I have discussed the patient's case and plan of care with Dr. Pierre. Subjective Subjective Date/Time Seen: 01/22/22 14:16 Post Op day: 7 Patient reports: feels better, tolerating a regular diet, voiding w/o difficulty, flatus (lots today), bowel movement (yesterday) and afebrile Interval history: Patient seen and examined. Chart reviewed from last exam. She reports feeling well today. She is eating more and is tolerating solid foods, but still only taking in small amounts at a time. No nausea, vomiting, or bloating. Review of Systems Review of Systems: All systems reviewed & are unremarkable except as noted in HPI and below Exam Const: General: comfortable, no acute distress, alert and awake Orientation/consciousness: patient oriented x3 Resp: Effort & Inspection: normal respiratory effort Auscultation: clear to auscultation bilaterally Cardio: Rate: regular rate Rhythm: regular rhythm GI: Inspection: non-distended and incision (Abdominal incision clean and dry, glue intact.) GI Palp: Yes Soft to palpation, Yes Tenderness to palpation present (GI) (incisional) and No Guarding due to palpation present (GI) Auscultation: normal bowel sounds Skin: General skin exam: normal color Neuro: General: moves all extremities and no focal motor deficits Speech: No Abnormal speech present Extrem: General: no clubbing, cyanosis or edema and no calf tenderness Psych: Mental Status: mental status grossly normal Insight: Good insight present (Psych) Judgement: Good judgement present (Psych) Objective Data Vital Signs Vital Signs: Vital Signs - 24 hr 01/21/22 20:00 01/21/22 20:14 01/21/22 22:00 Temperature 96.7 F L Pulse Rate 74 74 73 Respiratory Rate 18 18 Blood Pressure 129/60 Pulse Oximetry 100 97 01/22/22 06:00 01/22/22 08:03 Temperature 96.6 F L Pulse Rate 67 67 Respiratory Rate 18 Blood Pressure 100/57 L Pulse Oximetry 97 Intake/Output Intake/Output: Intake & Output 01/19/22 01/20/22 01/21/22 01/22/22 23:59 23:59 23:59 23:59 Intake Total 2220 270 1110 590 Output Total 1300 500 Balance 920 -230 1110 590 Meds/Results Medications: Active Medications Generic Name Dose Route Start Last Admin Trade Name Freq PRN Reason Stop Dose Admin Acetaminophen 650 mg 01/18/22 12:23 01/19/22 08:06 Acetaminophen 325 Mg Tablet PO 650 mg Q6H PRN Administration Mild Pain (1-3) or Fever Hydrocodone Bitart/Acetaminophen 1 tab 01/19/22 14:27 Hydrocodone/Acetaminophen (*Crx) 5-325 Mg Tablet PO Q4H PRN Pain Rated 4-6 Alprazolam 0.5 mg 01/19/22 14:24 01/20/22 09:53 Alprazolam (*Crx) 0.5 Mg Tablet PO 0.5 mg DAILY PRN Administration Anxiety Buspirone HCl 10 mg 01/19/22 17:00 01/22/22 08:04 Buspirone Hcl 10 Mg Tablet PO 10 mg BID JEANNE Administration Cyclobenzaprine HCl 5 mg 01/18/22 14:25 01/18/22 14:35 Cyclobenzaprine Hcl 5 Mg Tablet PO 5 mg Q8H PRN Administration Muscle Spasm Dextrose 12.5 gm 01/09/22 16:55 01/13/22 11:54 Dextrose 50% 25 Gm/50 Ml Syringe IV PUSH 12.5 gm PRN PRN Administration Hypoglycemia Protocol Enoxaparin Sodium 40 mg 01/10/22 09:00 01/22/22 08:05 Enoxaparin 40 Mg/0.4 Ml Syringe SUB-Q 40 mg DAILY JEANNE Administration Glucagon 1 mg 01/09/22 16:55 Glucagon For Inj 1 Mg Vial IM PRN PRN Hypoglycemia Protocol Glucose 15 gm 01/09/22 16:55 Glucose Oral
[2022-01-22 15:14] VITALS: BP 118/81; PULSE 74; RESP 18; TEMP 36.2; O2SAT 98
[2022-01-22] MEDS: NEOMYCIN/POLYMYXIN/BACITRACIN OINTMENT PACKET 1 PACKET (16:13)
== END 2022-01-22 17:00 | disposition home or self-care (01) | DRG 330 ==
LOC: ANHED 12:05 → ANH3MED 15:21
PROVIDERS: Nurse Practitioner; Nurse Practitioner Family; Surgery; Admitting Provider Family Medicine; Emergency Provider Nurse Practitioner Family; PCP Internal Medicine; Visit Provider Nurse Practitioner
PROC: 0DB80ZZ Excision of Small Intestine, Open Approach (ICD-10-PCS; CPT 49000; principal; 2022-01-15 15:00)
DX: K56.52 Intestinal adhesions [bands] with complete obstruction (principal); I42.8 Other cardiomyopathies; D69.6 Thrombocytopenia, unspecified; D72.829 Elevated white blood cell count, unspecified; E87.6 Hypokalemia; I49.9 Cardiac arrhythmia, unspecified; I10 Essential (primary) hypertension; E11.9 Type 2 diabetes mellitus without complications; E03.9 Hypothyroidism, unspecified; M10.9 Gout, unspecified; F41.9 Anxiety disorder, unspecified; F32.A Depression, unspecified; E78.5 Hyperlipidemia, unspecified; Z79.84 Long term (current) use of oral hypoglycemic drugs; Z79.899 Other long term (current) drug therapy; Z86.73 Personal history of transient ischemic attack (TIA), and cerebral infarction without residual deficits; Z88.8 Allergy status to other drugs, medicaments and biological substances; Z90.710 Acquired absence of both cervix and uterus; Z90.721 Acquired absence of ovaries, unilateral; Z90.49 Acquired absence of other specified parts of digestive tract; Z95.810 Presence of automatic (implantable) cardiac defibrillator; Z98.84 Bariatric surgery status; Z98.890 Other specified postprocedural states
CPT/HCPCS: 36415; 36569; 74018; 74019; 74177; 74250; 80048; 80053; 82948; 83605; 83690; 83735; 84100; 84134; 84466; 84478; 84550; 85025; 85027; 85055; 85610; 85730; 88307; 93005; 96361; 96374; 96375; 99285; A9270; C1751; C9113; J0330; J0360; J1100; J1650; J2060; J2250; J2270; J2405; J2543; J2704; J3010; J3475; J3480; J7030; J7040; J7120; Q9967

== ENCOUNTER 2022-07-04 01:11 | Day surgery (SDC) | payer MEDICARE, SELFPAY ==
[2022-06-24 14:45] VITALS: BMI 25.0
--- NOTE | 2022-07-03 13:37 | PM.HPGS ---
History of Present Illness History of Present Illness Consent: Risks, benefits, and alternatives have been discussed and questions answered. Patient agrees to proceed with procedure. Chief complaint: GERD, Hiatal hernia Narrative: Katheryn Pantoja is a 71 year old female with prior history of bariatric surgery who now is having problems with acid reflux. She often feels as though food is not passing. She in fact feels that things get caught in her esophagus, even liquids. Review of Systems Review of Systems: All systems reviewed & are unremarkable except as noted in HPI and below PMFSH Past Medical History Medical History Cardiac dysrhythmia Patient on sotalol. Hx ventricular dysrhythmia s/p ICD. Cardiomyopathy Nonischemic cardiomyopathy Status post PM/ICD insertion. Previous EF of 35% (per patient report). Patient of Dr. Boggs. Cerebrovascular accident Chronic lacunar infarct near anterior limb of right internal capsule noted on brain CT dated 02/24/2021. This was unknown to the patient. Depression Diverticulitis Hyperlipidemia Hypertension Hypothyroidism Type 2 diabetes mellitus Hemoglobin A1c was 5.4% on 02/24/2021. Surgical History Surgical History Cardiac defibrillator in place History of exploratory laparotomy 01/15/22 History of foot surgery History of hysterectomy Open oophorectomy (unsure of side) and incidental appendectomy as a teenager, and later eventually had a vaginal hysterectomy History of laparoscopic adjustable gastric banding History of left knee surgery History of partial colectomy Partial left colectomy secondary to diverticulitis in 2019. History of right breast biopsy Benign pathology. History of thumb surgery Status post panniculectomy 12/2020 Family History Family History Other Diabetes mellitus Heart disease Hypertension Venous thromboembolism Social History Social History Social History: Surrogate decision maker: Jonathan Pantoja, . Code: Full code. Smoking status: Never smoker Alcohol intake: never Substance use: never Substance use type: does not use Living arrangements: with family Additional living arrangements comments: Resides in [place] with her . They have 2 children, one from a drug overdose. 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 Spiritual care concerns: No Meds Home Medications and Allergies Home Medications Medication Instructions Recorded Confirmed Type glipizide 5 mg tablet 5 mg PO DAILY 11/08/20 06/24/22 History venlafaxine 75 mg tablet 75 mg PO DAILY 11/08/20 06/24/22 History calcitriol 0.25 mcg capsule 0.25 mcg PO DAILY 01/17/21 06/24/22 History magnesium oxide 400 mg (241.3 mg 400 mg PO BID 01/17/21 06/24/22 History magnesium) tablet montelukast 10 mg tablet 10 mg PO DAILY 01/17/21 06/24/22 History rosuvastatin 40 mg tablet 40 mg PO DAILY 01/17/21 06/24/22 History semaglutide 0.25 mg or 0.5 mg (2 0.5 mg subcut WEEKLY 01/17/21 06/24/22 History mg/1.5 mL) subcutaneous pen injector (Ozempic) ergocalciferol (vitamin D2) 1,250 50,000 unit PO WEEKLY 02/26/21 06/24/22 History mcg (50,000 unit) capsule (Vitamin D2) alprazolam 0.5 mg tablet 0.5 mg PO DAILY PRN ANXIETY 01/09/22 06/24/22 History buspirone 10 mg tablet 10 mg PO BID 01/09/22 06/24/22 History levothyroxine 50 mcg tablet 50 mcg PO DAILY 01/09/22 06/24/22 History (Euthyrox) sotalol 80 mg tablet 40 mg PO BID #30 tabs 01/22/22 06/24/22 Rx Allergies Allergy/AdvReac Type Severity Reaction Status Date / Time codeine AdvReac Severe Nausea and Verified 07/04/22 08:17 Vomiting meperidine [From Demerol] AdvReac Severe Nausea and Verified 07/04/22 08:17 Vomiting Exam
[2022-07-04 08:20] VITALS: BP 117/65; PULSE 67; RESP 18; TEMP 36.5; O2SAT 100
[2022-07-04 08:41] LABS: Glucose Point of Care 90 mg/dl (65-105)
[2022-07-04] MEDS: LACTATED RINGERS 1,000 ML 150 ML IV CONT (08:42)
--- NOTE | 2022-07-04 09:11 | WPDANESEPPF ---
Anes - Initial Pre Proc Eval Procedure: Operation Date: 07/04/22 09:00 Proposed Procedures p Esophagogastroduodenoscopy - Erickson Narayan MD Date/Time: 07/04/22 09:11 Surgeon: Erickson Narayan MD Pre Op Diagnosis: GERD, Hiatal hernia Patient Data Age: 71 Gender: F Height: 1.6 m Weight: 64.9 kg Last Vital Signs Temp 97.7 F 07/04/22 08:20 Pulse 67 07/04/22 08:20 Resp 18 07/04/22 08:20 BP 117/65 07/04/22 08:20 Pulse Ox 100 07/04/22 08:20 O2 Del Method Room Air 07/04/22 08:20 Allergies Allergy/AdvReac Type Severity Reaction Status Date / Time codeine AdvReac Severe Nausea and Verified 07/04/22 08:17 Vomiting meperidine [From Demerol] AdvReac Severe Nausea and Verified 07/04/22 08:17 Vomiting Home Medications Medication Instructions Recorded Confirmed Type glipizide 5 mg tablet 5 mg PO DAILY 11/08/20 06/24/22 History venlafaxine 75 mg tablet 75 mg PO DAILY 11/08/20 06/24/22 History calcitriol 0.25 mcg capsule 0.25 mcg PO DAILY 01/17/21 06/24/22 History magnesium oxide 400 mg (241.3 mg 400 mg PO BID 01/17/21 06/24/22 History magnesium) tablet montelukast 10 mg tablet 10 mg PO DAILY 01/17/21 06/24/22 History rosuvastatin 40 mg tablet 40 mg PO DAILY 01/17/21 06/24/22 History semaglutide 0.25 mg or 0.5 mg (2 0.5 mg subcut WEEKLY 01/17/21 06/24/22 History mg/1.5 mL) subcutaneous pen injector (Ozempic) ergocalciferol (vitamin D2) 1,250 50,000 unit PO WEEKLY 02/26/21 06/24/22 History mcg (50,000 unit) capsule (Vitamin D2) alprazolam 0.5 mg tablet 0.5 mg PO DAILY PRN ANXIETY 01/09/22 06/24/22 History buspirone 10 mg tablet 10 mg PO BID 01/09/22 06/24/22 History levothyroxine 50 mcg tablet 50 mcg PO DAILY 01/09/22 06/24/22 History (Euthyrox) sotalol 80 mg tablet 40 mg PO BID #30 tabs 01/22/22 06/24/22 Rx Laboratory Tests 07/04/22 08:37 POC Capillary Glucose 90 mg/dl mg/dl (65-105) Patient hx anesthesia problems: none Family hx anesthesia problems: none Results Review: All pre-operative results and documents have been reviewed as part of the pre-operative evaluation. [facility] Past Medical History Medical History Cardiac dysrhythmia Patient on sotalol. Hx ventricular dysrhythmia s/p ICD. Cardiomyopathy Nonischemic cardiomyopathy Status post PM/ICD insertion. Previous EF of 35% (per patient report). Patient of Dr. Boggs. Cerebrovascular accident Chronic lacunar infarct near anterior limb of right internal capsule noted on brain CT dated 02/24/2021. This was unknown to the patient. Depression Diverticulitis Hyperlipidemia Hypertension Hypothyroidism Type 2 diabetes mellitus Hemoglobin A1c was 5.4% on 02/24/2021. Surgical History Surgical History Cardiac defibrillator in place History of exploratory laparotomy 01/15/22 History of foot surgery History of hysterectomy Open oophorectomy (unsure of side) and incidental appendectomy as a teenager, and later eventually had a vaginal hysterectomy History of laparoscopic adjustable gastric banding History of left knee surgery History of partial colectomy Partial left colectomy secondary to diverticulitis in 2019. History of right breast biopsy Benign pathology. History of thumb surgery Status post panniculectomy 12/2020 Family History Family History Other Diabetes mellitus Heart disease Hypertension Venous thromboembolism Social History Social History Social History: Surrogate decision maker: Jonathan Pantoja, . Code: Full code. Smoking status: Never smoker Alcohol intake: never Substance use: never Substance use type: does not use Living arrangements: with family Additional living arrangements comments: Resides in [facility]
[2022-07-04 09:12] VITALS: BP 123/75; PULSE 68; RESP 21; O2SAT 95
[2022-07-04 09:22] VITALS: BP 139/76; PULSE 70; RESP 23; O2SAT 100
[2022-07-04 09:32] VITALS: BP 149/77; PULSE 68; RESP 23; O2SAT 100
== END 2022-07-04 09:38 | disposition home or self-care (01) ==
PROVIDERS: PCP Internal Medicine; Visit Provider Internal Medicine Gastroenterology
PROC: 0DJ08ZZ Inspection of Upper Intestinal Tract, Via Natural or Artificial Opening Endoscopic (ICD-10-PCS; CPT 43235; principal; 2022-07-04 09:00)
DX: K21.9 Gastro-esophageal reflux disease without esophagitis (principal); R13.10 Dysphagia, unspecified; K44.9 Diaphragmatic hernia without obstruction or gangrene; Z98.84 Bariatric surgery status; I42.8 Other cardiomyopathies; I10 Essential (primary) hypertension; E78.5 Hyperlipidemia, unspecified; E03.9 Hypothyroidism, unspecified; E11.9 Type 2 diabetes mellitus without complications; Z86.73 Personal history of transient ischemic attack (TIA), and cerebral infarction without residual deficits; I49.8 Other specified cardiac arrhythmias; Z95.810 Presence of automatic (implantable) cardiac defibrillator; F32.A Depression, unspecified; Z79.84 Long term (current) use of oral hypoglycemic drugs; Z79.899 Other long term (current) drug therapy
CPT/HCPCS: 43239; 82948; 88305; J2704; J7120

== ENCOUNTER 2022-07-08 14:58 | Emergency (ER) | payer MEDICARE, SELFPAY ==
[2022-07-08 15:49] VITALS: BP 149/96; PULSE 73; RESP 16; TEMP 36.9; O2SAT 97
--- NOTE | 2022-07-08 17:31 | ED.WOUNDLAC ---
HPI - Wound/Laceration General Chief Complaint: Wound/Laceration Stated Complaint: shingles Time Seen by Provider: 07/08/22 17:07 History of Present Illness HPI narrative: 71-year-old female presents the emergency room for evaluation of a rash. Patient states that she was sent here by her primary care physician for possible shingles to the left side of her face. Patient states approximately a month ago she had a rash on her left hip that burned and itched. This rash has since resolved. Patient notes a pruritic lesion to her left knee and to lesions to the left side of her face. Patient was told by her PCP to take Benadryl for the itching. Related Data Home Medications Medication Instructions Recorded Confirmed glipizide 5 mg tablet 5 mg PO DAILY 11/08/20 06/24/22 venlafaxine 75 mg tablet 75 mg PO DAILY 11/08/20 06/24/22 calcitriol 0.25 mcg capsule 0.25 mcg PO DAILY 01/17/21 06/24/22 magnesium oxide 400 mg (241.3 mg 400 mg PO BID 01/17/21 06/24/22 magnesium) tablet montelukast 10 mg tablet 10 mg PO DAILY 01/17/21 06/24/22 rosuvastatin 40 mg tablet 40 mg PO DAILY 01/17/21 06/24/22 semaglutide 0.25 mg or 0.5 mg (2 0.5 mg subcut WEEKLY 01/17/21 06/24/22 mg/1.5 mL) subcutaneous pen injector (Ozempic) ergocalciferol (vitamin D2) 1,250 50,000 unit PO WEEKLY 02/26/21 06/24/22 mcg (50,000 unit) capsule (Vitamin D2) alprazolam 0.5 mg tablet 0.5 mg PO DAILY PRN ANXIETY 01/09/22 06/24/22 buspirone 10 mg tablet 10 mg PO BID 01/09/22 06/24/22 levothyroxine 50 mcg tablet 50 mcg PO DAILY 01/09/22 06/24/22 (Euthyrox) Allergies Allergy/AdvReac Type Severity Reaction Status Date / Time codeine AdvReac Severe Nausea and Verified 07/04/22 08:17 Vomiting meperidine [From Demerol] AdvReac Severe Nausea and Verified 07/04/22 08:17 Vomiting Review of Systems Review of Systems: CONSTITUTIONAL: Denies fever, chills, or sweats. EYES: Denies visual changes, redness, or discharge. ENT: Denies rhinorrhea, congestion, sore throat, or otalgia. CARDIOVASCULAR: Denies chest pain, palpitations, or edema. RESPIRATORY: Denies cough or dyspnea. GASTROINTESTINAL: Denies abdominal pain, nausea, vomiting, or diarrhea. GENITOURINARY: Denies dysuria or hematuria. SKIN: Reports rash MUSCULOSKELETAL: Denies back pain, joint pain, or myalgia. NEUROLOGIC: Denies headache, numbness, dizziness, or weakness. PSYCHIATRIC: Denies anxiety or depression. [facility] Past Medical History Medical History Cardiac dysrhythmia Patient on sotalol. Hx ventricular dysrhythmia s/p ICD. Cardiomyopathy Nonischemic cardiomyopathy Status post PM/ICD insertion. Previous EF of 35% (per patient report). Patient of Dr. Boggs. Cerebrovascular accident Chronic lacunar infarct near anterior limb of right internal capsule noted on brain CT dated 02/24/2021. This was unknown to the patient. Depression Diverticulitis Hyperlipidemia Hypertension Hypothyroidism Type 2 diabetes mellitus Hemoglobin A1c was 5.4% on 02/24/2021. Surgical History Surgical History Cardiac defibrillator in place History of exploratory laparotomy 01/15/22 History of foot surgery History of hysterectomy Open oophorectomy (unsure of side) and incidental appendectomy as a teenager, and later eventually had a vaginal hysterectomy History of laparoscopic adjustable gastric banding History of left knee surgery History of partial colectomy Partial left colectomy secondary to diverticulitis in 2019. History of right breast biopsy Benign pathology. History of thumb surgery Status post panniculectomy 12/2020 Family History Family History Other Diabetes mellitus Heart disease Hypertension Venous thromboembolism Social History Social History Social Histo
[2022-07-08 18:47] VITALS: BP 144/82; PULSE 75; RESP 18; TEMP 36.7; O2SAT 99
== END 2022-07-08 18:49 | disposition home or self-care (01) ==
LOC: ANHED 18:12
PROVIDERS: Emergency Provider Nurse Practitioner Family; PCP Internal Medicine
DX: L30.9 Dermatitis, unspecified (principal); F32.9 Major depressive disorder, single episode, unspecified; I10 Essential (primary) hypertension; E03.9 Hypothyroidism, unspecified; E11.9 Type 2 diabetes mellitus without complications
CPT/HCPCS: 96372; 99283; J1100

== ENCOUNTER 2022-11-07 00:59 | Day surgery (SDC) | payer MEDICARE, SELFPAY ==
[2022-10-09 13:56] VITALS: BMI 27.7
--- NOTE | 2022-10-23 13:43 | PC.NURSE ---
verified with pt new date and time of procedure. pt denies any changes in medications or PMH since last PAT call. pt denies any questions.
--- NOTE | 2022-11-06 08:16 | WPDANESEPPF ---
Anes - Initial Pre Proc Eval Procedure: Operation Date: 11/07/22 08:30 Proposed Procedures p Colonoscopy - Erickson Narayan MD Date/Time: 11/06/22 08:16 Surgeon: Erickson Narayan MD Pre Op Diagnosis: diarrhea Patient Data Age: 72 Gender: F Height: 1.52 m Weight: 64.4 kg Allergies Allergy/AdvReac Type Severity Reaction Status Date / Time codeine AdvReac Severe Nausea and Verified 11/07/22 07:40 Vomiting meperidine [From Demerol] AdvReac Severe Nausea and Verified 11/07/22 07:40 Vomiting Home Medications Medication Instructions Recorded Confirmed Type rosuvastatin 40 mg tablet 40 mg PO DAILY 01/17/21 11/07/22 History semaglutide 0.25 mg or 0.5 mg (2 0.5 mg subcut WEEKLY 01/17/21 11/07/22 History mg/1.5 mL) subcutaneous pen injector (Ozempic) ergocalciferol (vitamin D2) 1,250 50,000 unit PO WEEKLY 02/26/21 11/07/22 History mcg (50,000 unit) capsule (Vitamin D2) alprazolam 0.5 mg tablet 0.5 mg PO DAILY PRN ANXIETY 01/09/22 11/07/22 History buspirone 10 mg tablet 10 mg PO BID 01/09/22 11/07/22 History levothyroxine 50 mcg tablet 50 mcg PO DAILY 01/09/22 11/07/22 History (Euthyrox) sotalol 80 mg tablet 40 mg PO BID #30 tabs 01/22/22 11/07/22 Rx Patient hx anesthesia problems: none Family hx anesthesia problems: none Results Review: All pre-operative results and documents have been reviewed as part of the pre-operative evaluation. [facility] Past Medical History Medical History Cardiac dysrhythmia Patient on sotalol. Hx ventricular dysrhythmia s/p ICD. Cardiomyopathy Nonischemic cardiomyopathy Status post PM/ICD insertion. Previous EF of 35% (per patient report). Patient of Dr. Boggs. Cerebrovascular accident Chronic lacunar infarct near anterior limb of right internal capsule noted on brain CT dated 02/24/2021. This was unknown to the patient. Depression Diverticulitis Hyperlipidemia Hypertension Hypothyroidism Type 2 diabetes mellitus Hemoglobin A1c was 5.4% on 02/24/2021. Surgical History Surgical History Cardiac defibrillator in place History of exploratory laparotomy 01/15/22 History of foot surgery History of hysterectomy Open oophorectomy (unsure of side) and incidental appendectomy as a teenager, and later eventually had a vaginal hysterectomy History of laparoscopic adjustable gastric banding History of left knee surgery History of partial colectomy Partial left colectomy secondary to diverticulitis in 2019. History of right breast biopsy Benign pathology. History of thumb surgery Status post panniculectomy 12/2020 Family History Family History Other Diabetes mellitus Heart disease Hypertension Venous thromboembolism Social History Social History Social History: Surrogate decision maker: Jonathan Pantoja, . Code: Full code. Smoking status: Never smoker Alcohol intake: never Substance use: never Substance use type: does not use Living arrangements: with family Additional living arrangements comments: Resides in [place] with her . They have 2 children, one from a drug overdose. 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 Spiritual care concerns: No Anes - Eval Final PreProcedure Day of Procedure 11/06/22 08:16 Patient weight: overweight Heart: regular rate and rhythm Lungs: clear to auscultation Airway: Mallampati scale class II Neurological: alert and oriented Last oral intake: >/= 8 hours ASA classification: IV Emergent: no Anesthetic plan: proceed Anesthesia type and monitoring: general GIVS and standard monitoring Results Review: All pre-operative results and documents have been reviewed as part of the pre-operative evaluation. In
--- NOTE | 2022-11-06 12:51 | PM.HPGS ---
History of Present Illness History of Present Illness Consent: Risks, benefits, and alternatives have been discussed and questions answered. Patient agrees to proceed with procedure. Chief complaint: diarrhea Narrative: Katheryn Pantoja is a 72 year old female Referred for colonoscopy to investigate a change in bowel habits. She has had quite a bit of diarrhea. Review of Systems Review of Systems: All systems reviewed & are unremarkable except as noted in HPI and below PMFSH Past Medical History Medical History Cardiac dysrhythmia Patient on sotalol. Hx ventricular dysrhythmia s/p ICD. Cardiomyopathy Nonischemic cardiomyopathy Status post PM/ICD insertion. Previous EF of 35% (per patient report). Patient of Dr. Boggs. Cerebrovascular accident Chronic lacunar infarct near anterior limb of right internal capsule noted on brain CT dated 02/24/2021. This was unknown to the patient. Depression Diverticulitis Hyperlipidemia Hypertension Hypothyroidism Type 2 diabetes mellitus Hemoglobin A1c was 5.4% on 02/24/2021. Surgical History Surgical History Cardiac defibrillator in place History of exploratory laparotomy 01/15/22 History of foot surgery History of hysterectomy Open oophorectomy (unsure of side) and incidental appendectomy as a teenager, and later eventually had a vaginal hysterectomy History of laparoscopic adjustable gastric banding History of left knee surgery History of partial colectomy Partial left colectomy secondary to diverticulitis in 2019. History of right breast biopsy Benign pathology. History of thumb surgery Status post panniculectomy 12/2020 Family History Family History Other Diabetes mellitus Heart disease Hypertension Venous thromboembolism Social History Social History Social History: Surrogate decision maker: Jonathan Pantoja, . Code: Full code. Smoking status: Never smoker Alcohol intake: never Substance use: never Substance use type: does not use Living arrangements: with family Additional living arrangements comments: Resides in [place] with her . They have 2 children, one from a drug overdose. 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 Spiritual care concerns: No Meds Home Medications and Allergies Home Medications Medication Instructions Recorded Confirmed Type rosuvastatin 40 mg tablet 40 mg PO DAILY 01/17/21 11/07/22 History semaglutide 0.25 mg or 0.5 mg (2 0.5 mg subcut WEEKLY 01/17/21 11/07/22 History mg/1.5 mL) subcutaneous pen injector (Ozempic) ergocalciferol (vitamin D2) 1,250 50,000 unit PO WEEKLY 02/26/21 11/07/22 History mcg (50,000 unit) capsule (Vitamin D2) alprazolam 0.5 mg tablet 0.5 mg PO DAILY PRN ANXIETY 01/09/22 11/07/22 History buspirone 10 mg tablet 10 mg PO BID 01/09/22 11/07/22 History levothyroxine 50 mcg tablet 50 mcg PO DAILY 01/09/22 11/07/22 History (Euthyrox) sotalol 80 mg tablet 40 mg PO BID #30 tabs 01/22/22 11/07/22 Rx Allergies Allergy/AdvReac Type Severity Reaction Status Date / Time codeine AdvReac Severe Nausea and Verified 11/07/22 07:40 Vomiting meperidine [From Demerol] AdvReac Severe Nausea and Verified 11/07/22 07:40 Vomiting Exam Const: General: alert Orientation/consciousness: patient oriented x3 Resp: Auscultation: clear to auscultation bilaterally Cardio: Rhythm: regular rhythm GI: GI Palp: Yes Soft to palpation and No Tenderness to palpation present (GI) Neuro: General: patient oriented x3 Assessment and Plan Assessment and plan (1) Chronic diarrhea: Code(s): K52.9 - Noninfective gastroenteritis and colitis, unspecified Status: Acute Assessment and Plan:
[2022-11-07 07:41] VITALS: BMI 27.7
[2022-11-07 07:54] LABS: Glucose Point of Care 111 mg/dl (65-105)
[2022-11-07] MEDS: LACTATED RINGERS 1,000 ML 150 ML IV CONT (07:55)
[2022-11-07 08:43] VITALS: BP 111/74; PULSE 69; RESP 20; O2SAT 97
[2022-11-07 08:53] VITALS: BP 147/88; PULSE 64; RESP 23; O2SAT 100
[2022-11-07 09:03] VITALS: BP 146/74; PULSE 66; RESP 22; O2SAT 100
== END 2022-11-07 09:09 | disposition home or self-care (01) ==
PROVIDERS: PCP Internal Medicine; Visit Provider Internal Medicine Gastroenterology
PROC: 0DJD8ZZ Inspection of Lower Intestinal Tract, Via Natural or Artificial Opening Endoscopic (ICD-10-PCS; CPT 45378; principal; 2022-11-07 08:30)
DX: R19.7 Diarrhea, unspecified (principal); K57.30 Diverticulosis of large intestine without perforation or abscess without bleeding; I49.9 Cardiac arrhythmia, unspecified; I42.8 Other cardiomyopathies; I10 Essential (primary) hypertension; E78.5 Hyperlipidemia, unspecified; E11.9 Type 2 diabetes mellitus without complications; E03.9 Hypothyroidism, unspecified; Z86.73 Personal history of transient ischemic attack (TIA), and cerebral infarction without residual deficits; Z95.810 Presence of automatic (implantable) cardiac defibrillator; Z90.49 Acquired absence of other specified parts of digestive tract; Z79.899 Other long term (current) drug therapy
CPT/HCPCS: 45378; 82948; J2001; J2704; J7120

== ENCOUNTER 2023-01-14 10:07 | Outpatient (CLI) | payer MEDICARE, SELFPAY ==
--- NOTE | ~2023-01-14 | XR_ITS ---
Supine and upright views of the abdomen Clinical history: Abdominal pain COMPARISON: 01/20/2022 Findings: Lap band is in place, as on prior exam. Bowel gas pattern is nonspecific. No evidence for o bstruction or free air. No abnormal mass lesion or calcification is seen. Osseous structures are inta ct. Impression: No significant abnormality is seen. Lap band in place. Reviewed, dictated and finalized at location . Impression: No significant abnormality is seen. Lap band in place.
== END 2023-01-14 10:08 | disposition home or self-care (01) ==
PROVIDERS: PCP Internal Medicine; Visit Provider Nurse Practitioner
DX: R10.9 Unspecified abdominal pain (principal); K56.609 Unspecified intestinal obstruction, unspecified as to partial versus complete obstruction; K59.00 Constipation, unspecified; Z98.84 Bariatric surgery status
CPT/HCPCS: 74018

== ENCOUNTER 2023-09-02 09:19 | Outpatient (CLI) | payer MEDICARE, SELFPAY ==
[2023-09-02 10:04] LABS: Basophils Absolute Auto 0.1 K/mm3 (0.0-0.1); Eosinophils Absolute Auto 0.5 K/mm3 (0-0.3); Eosinophils Percent Auto 6.8 % (0-4.4); Hemoglobin 13.4 g/dL (12.0-15.0); Immature Granulocyte Absolute 0.02 K/mm3 (0.00-0.031); Immature Granulocyte Percent A 0.3 % (0-0.5); Lymphocytes Absolute Auto 1.51 K/mm3 (0.9-3.2); Lymphocytes Percent Auto 21.4 % (18.3-44.2); Mean Corpuscular HGB Conc 31.2 g/dl (32-36); Mean Corpuscular Hemoglobin 30.2 pg (26-34); Mean Corpuscular Volume 96.8 fl (80-100); Mean Platelet Volume 12.8 fl (7.4-10.4); Monocytes Absolute Auto 0.9 K/mm3 (0.1-0.6); Monocytes Percent Auto 12.9 % (2.6-8.5); Neutrophils Absolute Auto 4.1 K/mm3 (1.3-6.7); Neutrophils Percent Auto 57.6 % (45.5-73.1); Platelet Count Result 110 k/mm3 (150-375); Red Blood Count 4.44 M/mm3 (4.2-5.4); Red Cell Distribution Width 14.1 % (11.5-14.5); White Blood Count 7.1 K/mm3 (4.5-10.0)
[2023-09-02 10:04] LABS: Appearance Urine Clear (Clear); Bilirubin Urine Negative (Negative); Blood Urine Negative (Negative); Color Urine Yellow (Yellow); Glucose Urine UA Negative (Negative); Ketones Urine Negative (Negative); Leukocyte Esterase Ur Negative LEU/UL (Negative); Nitrate Urine Negative (Negative); Protein Urine Negative (Negative); Specific Grav Ur 1.016 (1.001-1.035); Urobilinogen Urine 0.2 mg/dL (<2.0); pH Urine 5.5 (5.0-9.0)
[2023-09-02 10:08] LABS: Add Urine Microscopic? NO
[2023-09-02 10:19] LABS: Alanine Aminotransferase 27 U/L (6-35); Albumin Level 4.1 g/dL (3.5-5.1); Alkaline Phosphatase 56 U/L (38-126); Anion Gap 0 mmol/L (8-16); Aspartate Amino Transferase 47 U/L (14-36); Bilirubin,Total 0.7 mg/dL (0.2-1.3); Blood Urea Nitrogen 19 mg/dL (7-17); Calcium 9.3 mg/dL (8.4-10.2); Carbon Dioxide 32 mmol/L (22-30); Chloride 104 mmol/L (98-107); Cholesterol 127 mg/dL (0-200); Estimated Glomerular Filt Rate 55; Glucose 94 mg/dL (65-110); HDL Direct 48 mg/dL; Potassium 4.3 mmol/L (3.4-5.0); Sodium 136 mmol/L (137-145); Triglycerides 144 mg/dL (<150)
[2023-09-02 10:25] LABS: Parathyroid Intact 58.2 pg/mL (7.5-53.5)
[2023-09-02 10:29] LABS: LDL Cholesterol Direct 54 mg/dL
[2023-09-02 10:33] LABS: Creatinine Urine 113.5 mg/dL
[2023-09-02 10:49] LABS: Thyroid Stimulating Hormone 0.838 uIU/mL (0.465-4.680)
[2023-09-02 11:05] LABS: Hemoglobin A1C 5.5 % (<5.7)
[2023-09-02 11:13] LABS: Free T4 Free Thyroxine 1.21 ng/mL (0.78-2.19); Vitamin D 25 Hydroxy 65.8 ng/mL
[2023-09-02 11:17] LABS: Vitamin B12 > 1000.0 pg/mL (239-931)
[2023-09-02 12:23] LABS: MALB Creatinine Ratio < 5.3 mg/g (0-30); Microalbumin Urine Random < 6.0 mg/L (0-16.7)
[2023-09-02 12:42] LABS: Folic Acid > 20.0 ng/mL (2.76->20)
== END 2023-09-02 09:20 | disposition home or self-care (01) ==
PROVIDERS: PCP Internal Medicine; Visit Provider Internal Medicine
DX: E78.5 Hyperlipidemia, unspecified (principal); I10 Essential (primary) hypertension; E03.9 Hypothyroidism, unspecified; E55.9 Vitamin D deficiency, unspecified; E11.9 Type 2 diabetes mellitus without complications; R79.89 Other specified abnormal findings of blood chemistry; Z79.899 Other long term (current) drug therapy; Z98.84 Bariatric surgery status
CPT/HCPCS: 36415; 80053; 80061; 81003; 82043; 82306; 82607; 82746; 83036; 83970; 84439; 84443; 85025

== ENCOUNTER 2023-11-28 07:54 | Outpatient (CLI) | payer MEDICARE, SELFPAY ==
--- NOTE | ~2023-11-28 | DEXA_ITS ---
Bone Density Report Name: TIM PHILLIPS Age: 73 Sex: Female Ethnicity: White Date of : 1950 Indication: hyperparathyroidism; height loss; hysterectomy; Referring Provider: GEORGE WALLACE Study: Bone densitometry was performed. Exam Date: November 28, 2023 Accession number: [id number] Bone Density: Region BMD T-score Z-score Classification AP Spine(L1, L3, L4) 0.830 -2.0 0.3 Osteopenia Femoral Neck (Left) 0.695 -1.4 0.6 Osteopenia Total Hip (Left) 0.890 -0.4 1.2 Normal Femoral Neck (Right) 0.666 -1.7 0.3 Osteopenia Total Hip (Right) 0.814 -1.0 0.6 Normal Total Hip Mean 0.852 -0.7 0.9 Normal World Health Organization criteria for BMD impression classify patients as: Normal (T-score at or above -1.0), Osteopenia (T-score between -1.0 and -2.5), or Osteoporosis (T-score at or below -2.5). 10-year Fracture Risk(1): Major Osteoporotic Fracture 11% Hip Fracture 2.0% Reported Risk Factors: [place] (), Neck BMD=0.666, BMI=29.6 (1) FRAX(R) Version 3.08. Fracture probability calculated for an untreated patient. Fracture probability may be lower if the patient has received treatment. Clinical Information Provided by Patient: Has used the following medications: Vitamin D Has the following medical conditions: Hyperparathyroidism, Hysterectomy Patient maximum height was 62 Menopause Age: 53 No regular weight bearing exercise Drinks caffeinated beverages Onset of menses at age 13 Number of children 2 Impression: The patient has low bone mass, based on the Total Spine T-score. The patient has an estimated ten-year risk of hip fracture of 2% and an estimated ten-year risk of major fracture of 11%, based on the WHO FRAX algorithm. Discussion: BONE DENSITY IS LOW AT ONE OR MORE SKELETAL SITES. This patient's lowest T-score is low at one or more skeletal sites. It meets the World Health Organization's (WHO) criteria for ?low bone mass? (T-score between -1.0 and -2.5). The patient's 10-year risk of fracture as calculated by FRAX is less than the threshold where pharmacological therapy is recommended by the National Osteoporosis Foundation (NOF). However, all treatment decisions require clinical judgment and consideration of individual patient factors, including patient preferences, comorbidities, previous drug use, risk factors not captured in the FRAX model (e.g., frailty, falls, vitamin D deficiency, increased bone turnover, interval significant decline in bone density) and possible under or overestimation of fracture risk by FRAX. The patient should follow a healthful lifestyle (good nutrition with adequate calcium and vitamin D, and appropriate weight-bearing exercise). Follow-Up: Consider repeating this study in 2 to 3 years to reassess this patient's status, or sooner if th
== END 2023-11-28 07:55 | disposition home or self-care (01) ==
LOC: ANHIMG 07:58
PROVIDERS: PCP Internal Medicine; Visit Provider Internal Medicine
DX: Z78.0 Asymptomatic menopausal state (principal); M85.89 Other specified disorders of bone density and structure, multiple sites
CPT/HCPCS: 77080

== ENCOUNTER 2024-02-13 08:54 | Outpatient (CLI) | payer MEDICARE, SELFPAY ==
--- NOTE | ~2024-02-13 | MM_ITS ---
EXAMINATION: MM screening judy BI w sudha HISTORY: Screening TECHNIQUE: Craniocaudal and mediolateral oblique 3-D tomosynthesis images were obtained and synthetic 2-D images were generated. CAD analysis was submitted and interpreted. COMPARISON: No prior mammogram is available for comparison at this institution. BREAST PARENCHYMAL COMPOSITION: Not dense: There are scattered areas of fibroglandular density. FINDINGS: There are no suspicious masses, calcifications or architectural distortion in the left theresa st to suggest malignancy. There are nodular asymmetries in the right breast with punctate indetermina te calcifications clustered in the upper outer quadrant anteriorly. IMPRESSION: 1. Nodular asymmetries with associated punctate indeterminate calcifications located anteriorly in th e upper outer quadrant of the right breast. 2. Additional mammographic views and possible breast ultrasound are recommended. BI-RADS Category 0: Incomplete: Needs additional imaging evaluation. Reviewed, dictated and finalized at location B. IMPRESSION: 1. Nodular asymmetries with associated punctate indeterminate calcifications lo cated anteriorly in the upper outer quadrant of the right breast. 2. Additional mammographic views and possible breast ultrasound are recommended . BI-RADS Category 0: Incomplete: Needs additional imaging evaluation.
== END 2024-02-13 08:55 | disposition home or self-care (01) ==
LOC: ANHIMG 08:57
PROVIDERS: PCP Internal Medicine; Visit Provider Internal Medicine
DX: Z12.31 Encounter for screening mammogram for malignant neoplasm of breast (principal); R92.8 Other abnormal and inconclusive findings on diagnostic imaging of breast
CPT/HCPCS: 77063; 77067

== ENCOUNTER 2024-03-16 12:19 | Outpatient (CLI) | payer MEDICARE, SELFPAY ==
--- NOTE | ~2024-03-16 | MMUS_ITS ---
EXAMINATION: MM diagnostic judy RT w sudha, US breast RT limited HISTORY: Follow-up nodular asymmetries and calcifications of the right breast. TECHNIQUE: Additional 3-D tomosynthesis images of the right breast were performed and synthetic 2-D i mages were generated. CAD analysis was submitted and interpreted. High resolution Limited right breas t ultrasound was performed. COMPARISON: Comparison to multiple prior studies sequentially, with oldest reviewed study dated 07/06. BREAST PARENCHYMAL COMPOSITION: Not dense: There are scattered areas of fibroglandular density. FINDINGS: MAMMOGRAPHIC FINDINGS: There is a persistent mass measuring approximately 5 mm in the upper outer quadrant of the right theresa st anteriorly. There are clustered indeterminate calcifications in the upper outer quadrant, middle t hird. ULTRASOUND: Limited right breast ultrasound: At 9:00, 6 cm from the nipple, there is an oval hypoechoic mass geoffrey uring 5 x 5 x 3 mm without posterior features or internal vascularity, likely benign. At 9:00, 4 cm f rom the nipple there is an irregular shaped hypoechoic mass with antiparallel configuration and no in ternal vascularity measuring 6 x 6 x 5 mm. IMPRESSION: 1. Irregular shaped hypoechoic right breast mass at 9:00, 4 cm from the nipple. Ultrasound-guided rig ht breast biopsy recommended. BI-RADS Category 4. 2: Right breast mass located at 9:00, 6 cm from the nipple and clustered indeterminate right breast c alcifications are likely benign. Six-month follow-up for these findings recommended. Reviewed, dictated and finalized at location A. IMPRESSION: 1. Irregular shaped hypoechoic right breast mass at 9:00, 4 cm from the nipple. Ultrasound-guided right breast biopsy recommended. BI-RADS Category 4. 2: Right breast mass located at 9:00, 6 cm from the nipple and clustered indete rminate right breast calcifications are likely benign. Six-month follow-up for these findings recommended.
[2024-03-16 13:16] LABS: Basophils Absolute Auto 0.1 K/mm3 (0.0-0.1); Basophils Percent Auto 0.8 % (0.2-1.2); Eosinophils Absolute Auto 0.3 K/mm3 (0-0.3); Eosinophils Percent Auto 3.6 % (0-4.4); Hematocrit 43.3 % (37.0-47.0); Hemoglobin 14.1 g/dL (12.0-15.0); Immature Granulocyte Absolute 0.02 K/mm3 (0.00-0.031); Immature Granulocyte Percent A 0.2 % (0-0.5); Lymphocytes Absolute Auto 1.89 K/mm3 (0.9-3.2); Lymphocytes Percent Auto 21.9 % (18.3-44.2); Mean Corpuscular HGB Conc 32.6 g/dl (32-36); Mean Corpuscular Hemoglobin 30.5 pg (26-34); Mean Corpuscular Volume 93.7 fl (80-100); Mean Platelet Volume 11.9 fl (7.4-10.4); Monocytes Absolute Auto 1.1 K/mm3 (0.1-0.6); Monocytes Percent Auto 12.9 % (2.6-8.5); Neutrophils Absolute Auto 5.2 K/mm3 (1.3-6.7); Neutrophils Percent Auto 60.6 % (45.5-73.1); Platelet Count Result 123 k/mm3 (150-375); Red Blood Count 4.62 M/mm3 (4.2-5.4); Red Cell Distribution Width 13.6 % (11.5-14.5); White Blood Count 8.6 K/mm3 (4.5-10.0)
[2024-03-16 13:26] LABS: Alanine Aminotransferase 12 U/L (6-35); Albumin Level 4.2 g/dL (3.5-5.1); Alkaline Phosphatase 57 U/L (38-126); Anion Gap 3 mmol/L (4-12); Aspartate Amino Transferase 33 U/L (14-36); Bilirubin,Total 0.7 mg/dL (0.2-1.3); Blood Urea Nitrogen 20 mg/dL (7-17); Calcium 9.5 mg/dL (8.4-10.2); Carbon Dioxide 29 mmol/L (22-30); Chloride 105 mmol/L (98-107); Cholesterol 141 mg/dL (0-200); Estimated Glomerular Filt Rate 54; Glucose 104 mg/dL (65-110); HDL Direct 51 mg/dL; Potassium 4.2 mmol/L (3.4-5.0); Sodium 137 mmol/L (137-145); Triglycerides 219 mg/dL (<150)
[2024-03-16 13:27] LABS: Hemoglobin A1C 5.4 % (<5.7)
[2024-03-16 13:38] LABS: LDL Cholesterol Direct 68 mg/dL
[2024-03-16 13:56] LABS: Thyroid Stimulating Hormone 0.805 uIU/mL (0.465-4.680)
== END 2024-03-16 12:20 | disposition home or self-care (01) ==
PROVIDERS: PCP Internal Medicine; Visit Provider Internal Medicine
DX: R92.8 Other abnormal and inconclusive findings on diagnostic imaging of breast (principal); E78.5 Hyperlipidemia, unspecified; E03.9 Hypothyroidism, unspecified; D69.6 Thrombocytopenia, unspecified; D72.829 Elevated white blood cell count, unspecified; E11.9 Type 2 diabetes mellitus without complications; I10 Essential (primary) hypertension
CPT/HCPCS: 36415; 76642; 77061; 77065; 80053; 80061; 83036; 84439; 84443; 85025; G0279

== ENCOUNTER 2024-03-25 10:57 | Outpatient (CLI) | payer MEDICARE, SELFPAY ==
--- NOTE | ~2024-03-25 | XR_ITS ---
EXAMINATION: XR shoulder LT min 2V DATE: 03/25/2024 11:18 INDICATION: Left shoulder pain. TECHNIQUE: 4 views of left shoulder were obtained. COMPARISON: None. FINDINGS: Bone alignment is normal. No fracture. There is mild osteoarthritis of glenohumeral joint a nd severe osteoarthritis of acromioclavicular joint. There is a left chest wall pacer. Calcified left lung nodules are consistent with old granulomatous disease. IMPRESSION: 1. Polyarticular osteoarthritis. Reviewed, dictated and finalized at location A.
== END 2024-03-25 10:58 | disposition home or self-care (01) ==
PROVIDERS: PCP Internal Medicine; Visit Provider Internal Medicine
DX: M25.512 Pain in left shoulder (principal); M19.012 Primary osteoarthritis, left shoulder
CPT/HCPCS: 73030

== ENCOUNTER 2024-05-03 08:18 | Outpatient (CLI) | payer MEDICARE, SELFPAY ==
--- NOTE | ~2024-05-03 | MMUS_ITS ---
MM post biopsy diagnostic RT, US breast biopsy RT w image EXAMINATION: US GUIDED NEEDLE BIOPSY WITH VACUUM ASSISTANCE DATE: 05/03/2024 09:28 CDT INDICATION: Right breast mass seen on prior examination. Ultrasound-guided core biopsy is requested to evaluate for malignancy. BREAST PARENCHYMAL COMPOSITION: Not dense: There are scattered areas of fibroglandular density. TECHNIQUE AND FINDINGS: The risks and potential benefits of the procedure were discussed with the patient, and written inform ed consent was obtained. After sterile preparation of the right breast, 1% lidocaine was utilized fo r local anesthesia. 1% lidocaine with epinephrine was used for deep anesthesia. A 10G vacuum-assisted biopsy gun needle was advanced through to the outer edge of the region of inter est from a inferior approach utilizing sonographic guidance. A total of three tissue core samples we re obtained through the lesion. An Inrad tissue marker clip was then placed at the biopsy site. Hemo stasis was achieved. The patient tolerated procedure well and there was no evidence of immediate complication. The patien t was given verbal instructions partly is from the department. Right breast mammograms to document t issue marker clip placement. The tissue samples were submitted to surgical pathology for histologic a nalysis. IMPRESSION: 1. Successful ultrasound-guided vacuum-assisted biopsy of right breast mass with post procedure mamm ogram for marker placement. Please refer to pathology report for histologic analysis. Reviewed, dictated and finalized at location B. IMPRESSION: 1. Successful ultrasound-guided vacuum-assisted biopsy of right breast mass wi th post procedure mammogram for marker placement. Please refer to pathology rep ort for histologic analysis.
== END 2024-05-03 08:19 | disposition home or self-care (01) ==
PROVIDERS: PCP Internal Medicine; Visit Provider Surgery
DX: C50.911 Malignant neoplasm of unspecified site of right female breast (principal); R92.8 Other abnormal and inconclusive findings on diagnostic imaging of breast
CPT/HCPCS: 19083; 77065; 88305; 88342; 88360

== ENCOUNTER 2024-06-18 07:35 | Outpatient (CLI) | payer MEDICARE, SELFPAY ==
--- NOTE | 2024-06-18 08:00 | ECG_ITS ---
Test Date: 2024-06-18 08:23:45 Measurements Intervals [place] Rate: 66 P: 103 [place]: 366 QRS: 145 QRSD: 99 T: 40 QT: 423 QTc: 443 Interpretive Statements SIGNIFICANT BASELINE ARTIFACT, POOR QUALITY ECG SINUS RHYTHM WITH PVC FURTHER DIAGNOSIS NOT POSSIBLE GIVEN VERY POOR ECG QUALITY No previous ECG available for comparison Electronically Signed On 06-18-2024 12:53:36 CDT by Reinaldo Perez M.D.
[2024-06-18 08:55] LABS: Prothrombin Time 13.4 Seconds (11.1-14.7)
[2024-06-18 08:56] LABS: Anion Gap 5 mmol/L (4-12); Blood Urea Nitrogen 15 mg/dL (7-17); Calcium 9.3 mg/dL (8.4-10.2); Carbon Dioxide 32 mmol/L (22-30); Chloride 103 mmol/L (98-107); Estimated Glomerular Filt Rate 54; Glucose 110 mg/dL (65-110); Partial Thromboplastin Time 30.3 Seconds (22.3-36.8); Potassium 4.7 mmol/L (3.4-5.0); Sodium 140 mmol/L (137-145)
[2024-06-18 09:21] LABS: Hematocrit 43.3 % (37.0-47.0)
== END 2024-06-18 07:36 | disposition home or self-care (01) ==
PROVIDERS: Anesthesiology; PCP Internal Medicine; Visit Provider Surgery
DX: C50.911 Malignant neoplasm of unspecified site of right female breast (principal); I49.9 Cardiac arrhythmia, unspecified; E11.9 Type 2 diabetes mellitus without complications; N28.9 Disorder of kidney and ureter, unspecified; Z01.818 Encounter for other preprocedural examination
CPT/HCPCS: 36415; 80048; 85014; 85018; 85610; 85730; 86850; 86900; 86901; 93005

== ENCOUNTER 2024-06-22 01:59 | Day surgery (SDC) | payer MEDICARE, SELFPAY ==
--- NOTE | 2024-06-16 09:37 | PC.NURSE ---
Report to the Outpatient Waiting Room, entrance under the green pavilion located off [facility], at time __9:00 AM on date _06/22/24 . Planned Procedure Time: _11:00 AM . NUCLEAR MED AT 10:00 AM Time changes happen often and if your time is changed the preop area will call you the afternoon before. - You and your visitor will be asked to self-screen and do not enter if you have any COVID symptoms. - A mask is optional within the hospital at this time NOTHING TO EAT OR DRINK 8 HOURS PRIOR TO SURGERY- 3:[address] BE Take the following medications with a SIP of water the morning of surgery: __ALPRAZOLAM IF NEEDED,BUSPIRONE,LEVOTHYROXINE,SOTALOL,VENLAFAXINE DO NOT STOP ANY OF YOUR OTHER PRESCRIPTION MEDICATIONS PRIOR TO SURGERY ?EXCEPT THE FOLLOWING Medications to discontinue per physician ___PT STATES HOLD OZEMPIC PER DR HOLGUIN LAST DOSE 06/08/24. HOLD ALL VITAMINS 3 DAYS PRE OP.LAST DOSE 06/18/24 Please no make-up, nail occitan, hairspray, perfume, deodorant, or body powder the day of surgery. No jewelry (including any body piercings) or valuables the day of surgery, leave them at home. Please take a shower or bath the night before, or the morning of, surgery with an antibacterial soap. Wear comfortable, loose fitting clothing. Children are encouraged to wear pajamas. - Jewelry must be removed prior to entering the operating room. Rings and piercings that are not removed may be cut off. - The hospital will not accept responsibility for valuables. - Please leave all valuables, including medications, at home the day of surgery. If you are going home after surgery, a licensed regional company flatbed truck driver must drive you home. - NO public transportation without another adult if you receive anesthesia. - We recommend that an adult stay with you for 24 hours following discharge. - We also recommend that you do not drive, make important decision, drink alcoholic beverages, or take any drugs that were not prescribed by your health care provider for at least 24 hours after your discharge time. Follow any additional instructions given to you from your surgeon. If you or anyone in your household have experienced Covid symptoms in the past week, please notify your surgeon or the nurse liaison at the phone number below for possible testing. Telephone instructions given to __PATIENT and asked if any additional questions and then verbalized understanding. Patient advised to call surgeon office or pre surgery nurse liaison [phone] if any additional questions.
[2024-06-16 11:11] VITALS: BMI 28.9
[2024-06-22] VITALS (14 sets, daily range): BP systolic 105–152; BP diastolic 48–74; PULSE 63–83; RESP 10–21; TEMP 36.1–37.3; O2SAT 94–100
--- NOTE | ~2024-06-22 | NM_ITS ---
EXAMINATION: NM sentinel node inject only DATE: 06/22/2024 11:05 INDICATION: Right breast cancer TECHNIQUE: 0.985 mCi Tc-99m filtered sulfur colloid was injected in 4 aliquots along the margin of th e areola at the 12, 3, 6 and 9:00 positions. No images were obtained. IMPRESSION: 1. Successful right breast sentinel lymph node radiopharmaceutical injection. Reviewed, dictated and finalized at location A.
[2024-06-22] MEDS: LIDOCAINE/PRILOCAINE CREAM 2.5-2.5% TUBE 1 EACH TOPICAL (09:38)
[2024-06-22] MEDS: LACTATED RINGERS 1,000 ML 30 ML IV CONT ×2 (09:55→14:46)
[2024-06-22] MEDS: ACETAMINOPHEN 500 MG TABLET 1000 MG PO (10:07)
[2024-06-22 10:09] LABS: Glucose Point of Care 107 mg/dl (65-105)
--- NOTE | 2024-06-22 10:35 | P.HPUP_ITS ---
History and Physical Update Update Date/Time: 06/22/24 10:35 Patient seen and examined in pre-operative holding area. No interval change in medical history or symptoms. Patient remembers previous discussion of benefits and alternatives to procedure. Continues to desire to proceed with bilateral breast reconstruction with silicone implants and acellular dermal matrix possible tissue transition manager placement at time of mastectomy . I reviewed the risks including but not limited to bleeding ,infection, asymmetry, undesireable cosmetic appearance, partial/total skin loss, device failure, capsular contracture, no change or worsening of symptoms, change in sensation. I discussed the possible use of assistants and their level of participation in the case. Patient stated understanding and signed the consent form wishing to proceed
--- NOTE | 2024-06-22 10:36 | W.PM.PROC2 ---
Procedure Note - Detailed Date of Procedure 06/22/24 Pre-op Diagnosis right breast CA Post-op Diagnosis Same (acquired absence bilateral breasts) Procedure Performed b/l breast recon with silicone implants and ADM Surgeon Tiarra Graf MD Iridologist ankit nina pa-c Anesthesia General Description of Procedure Patient was seen in the preoperative holding area where the consent form was signed and the breasts were marked for a non nipple sparing bilateral mastectomy. I Designed skin incisions for performing both the mastectomy as well as attempting to address skin laxity and make the breast pocket smaller. The patient was then taken back to the OR under the supervision of Dr. Reich where SCDs were placed and inflated and antibiotics were given IV. After Dr. Reich completed the right mastectomy I proceeded with irrigation with antibiotic irrigation and hemostasis with bovie cautery. I then proceeded with suturing in a piece of large contour to word AlloDerm along the inframammary fold and anterior axillary line with 2-0 Vicryl suture. A 365 cc Sizer was placed and this appeared to be appropriate for patient's reconstructive goals without undue tension on the skin flaps. The skin flaps appeared viable with good cap refill. The Sizer was removed. I proceeded with placing a 10 Deo drain along the inframammary fold and on Q catheter along the superior aspect of the right breast cavity. I irrigated the pocket with antibiotic irrigation. Betadine and fresh towels were placed down to the 3 the skin. Gloves were changed and instruments rinsed in antibiotic irrigation. I proceeded with taking a Natrelle SCF -365 implant serial [id number] directly from the package after rinsing it in antibiotic irrigation and placed in the right breast pocket in appropriate position. excess skin was excised medially and laterally for addressing dog ears and to adjust the skin envelope. The dermis was closed with 3-0 Vicryl suture. laterally the dermis was pexy'd down to the chest wall to help restore the anterior axillary line and lateral sweep of the breast. 4-0 Monocryl was used for subcuticular closure. The drain was hooked to bulb suction and 10 cc of 1% lidocaine with epinephrine and 0.5% Marcaine plain were used for bolus loading dose of the on Q catheter. I next took my attention to the left breast with the mastectomy having been completed and proceeded with irrigating with antibiotic irrigation and hemostasis with Bovie cautery. Again I proceeded with sewing in a piece of large contoured AlloDerm along the inframammary fold and anterior axillary line with 2-0 Vicryl suture. The on Q catheter was placed as well as the 10 Deo drain. The skin was prepped with Betadine and new towels were placed. My gloves were changed and antibiotic irrigation was used to clean the instruments. I proceeded with taking another Demetrio SCF -365 implant serial [id number] directly from the package after rinsing it in antibiotic irrigation and placed it in the appropriate position in the left breast pocket under the AlloDerm. excess skin was excised medially and laterally for addressing dog ears and to adjust the skin envelope. The skin was then closed with 3-0 Vicryl for dermis. laterally the dermis was pexy'd down to the chest wall to help restore the anterior axillary line and lateral sweep of the breast. 4-0 Monocryl was used for subcuticular closure. The drains were hooked to bulb suction and 10 cc of local was used to prime the left breast on Q catheter. Total length of complex closure was >30cm A dressing of Mastisol, Steri-Strips, 4 x 4, Tegaderm, ABDs and a breast binder was then applied. The on Q catheter was hooked up. The patient was awakened from anesthesia and transferred to the recovery room in stable condition. Complications: None estimated blood loss: 5 cc for my portion of the procedure disposition: Patient tolerated prcedure well and will
--- NOTE | 2024-06-22 10:47 | WPDANESEPPF ---
Anes - Initial Pre Proc Eval Procedure: Operation Date: 06/22/24 11:00 Proposed Procedures p Right Total Mastectomy with [place] Lymph Node Biopsy with Lymphoseek and Methylene Blue Injection, Left Prophylactic Total Mastectomy, - Yumi Reich MD s Bilateral Breast Immediate Reconstruction with Silicone Implants and Acellular Dermal Matrix, Possible Tissue Bilingual Student Tutor Placement - Tiarra Graf MD Date/Time: 06/22/24 10:47 Surgeon: Yumi Reich MD Pre Op Diagnosis: right breast CA Patient Data Age: 73 Gender: F Height: 1.52 m Weight: 67.2 kg Allergies Allergy/AdvReac Type Severity Reaction Status Date / Time codeine AdvReac Severe Nausea and Verified 06/16/24 09:14 Vomiting meperidine [From Demerol] AdvReac Severe Nausea and Verified 06/16/24 09:14 Vomiting Home Medications Medication Instructions Recorded Confirmed Type sotalol 80 mg tablet 40 mg PO BID #30 tabs 01/22/22 06/16/24 Rx sacubitril 24 mg-valsartan 26 mg 1 tablet PO BID 01/14/23 06/16/24 History tablet (Entresto) buspirone 10 mg tablet 10 mg PO BID #60 tabs 10/23/23 06/16/24 Rx alprazolam 0.5 mg tablet 0.5 mg PO DAILY PRN ANXIETY #30 10/31/23 06/16/24 Rx tabs levothyroxine 50 mcg tablet See Rx Instructions .Route 01/05/24 06/16/24 Rx .COMPLEX #90 tabs rosuvastatin 20 mg tablet 20 mg PO DAILY #90 tabs 02/09/24 06/16/24 Rx alendronate 70 mg tablet See Rx Instructions .Route 04/12/24 06/16/24 Rx .COMPLEX #4 tabs linaclotide 72 mcg capsule 72 mcg PO DAILY #90 caps 04/13/24 06/16/24 Rx (Linzess) semaglutide 0.25 mg or 0.5 mg (2 0.25 mg (0.368 mL) subcut WEEKLY 04/18/24 06/16/24 Rx mg/3 mL) subcutaneous pen injector #9 mL (Ozempic) empagliflozin 10 mg tablet 10 mg PO DAILY #90 tabs 05/20/24 06/16/24 Rx (Jardiance) montelukast 10 mg tablet 10 mg PO DAILY #90 tabs 06/07/24 06/16/24 Rx cefuroxime axetil 500 mg tablet 500 mg PO Q12H 10 days #20 tabs 06/16/24 06/16/24 Rx cyanocobalamin (vitamin B-12) 1,000 mcg PO DAILY 06/16/24 06/16/24 History 1,000 mcg tablet ondansetron HCl 8 mg tablet 8 mg PO PRN PRN Nausea 06/16/24 06/16/24 History venlafaxine 75 mg capsule,extended 75 mg PO BID 06/16/24 06/16/24 History release 24 hr Laboratory Tests 06/22/24 10:05 POC Capillary Glucose 107 H mg/dl (65-105) Patient hx anesthesia problems: none Family hx anesthesia problems: none Results Review: All pre-operative results and documents have been reviewed as part of the pre-operative evaluation. [facility] Past Medical History Medical History Abdominal cramping Anxiety BMI 28.0-28.9,adult BMI 29.0-29.9,adult Cardiac dysrhythmia Patient on sotalol. Hx ventricular dysrhythmia s/p ICD. Cardiomyopathy Nonischemic cardiomyopathy Status post PM/ICD insertion. Previous EF of 35% (per patient report). Patient of Dr. Boggs. Cerebrovascular accident Chronic lacunar infarct near anterior limb of right internal capsule noted on brain CT dated 02/24/2021. This was unknown to the patient. Constipation Depression Diverticula of colon Diverticulitis Elbow pain, right Encounter for Medicare annual wellness exam Encounter for routine adult health examination with abnormal findings Encounter to establish care Follow up History of CVA (cerebrovascular accident) Hyperlipidemia Hypertension Hypothyroidism Irritable bowel syndrome with constipation Lumbar hernia Nausea Nonerosive esophageal reflux disease On mcfp drug therapy Post-menopausal Shoulder pain, bilateral Symptoms consistent with irritable bowel syndrome Type 2 diabetes mellitus Hemoglobin A1c was 5.4% on 02/24/2021. Surgical History Surgical History Cardiac defibrillator in place History of exploratory laparotomy 01/15/22 History of foot surgery History of hysterectomy Open oophorectomy (unsure of si
--- NOTE | 2024-06-22 10:51 | WPDHPUPDATE1 ---
History and Physical Update Update Date/Time: 06/22/24 10:51 - Right total mastectomy, left prophylactic total mastectomy, right sentinel lymph node biopsy with Lymphoseek, possible methylene blue injection for sentinel lymph node mapping, as well as reconstruction by Plastic surgery History and Physical has been reviewed, including an updated exam of the patient. There are NO changes in the patient's condition. Risks, benefits, and alternatives have been discussed and questions answered. Patient agrees to proceed with procedure.
[2024-06-22] MEDS: ceFAZolin 2 GM/D5W 50 ML 2 GM/50 ML BAG IVPB (11:47)
[2024-06-22] MEDS: NACL 0.9% IRRIG POUR BOTTLE 1,000 ML, GENTAMICIN SULFATE INJ 160 MG, ceFAZolin 2 GM IRRIGATION (12:28)
[2024-06-22] MEDS: BUPivacaine HCL 0.5% PF 30 ML VIAL INFILTRATE (12:30)
[2024-06-22] MEDS: LIDO 1%/EPINEPHRINE 1:100,000 50 ML VIAL 30 ML INFILTRATE (12:30)
--- NOTE | 2024-06-22 14:16 | W.PM.PROC2 ---
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 Right total mastectomy 2. Left prophylactic total mastectomy 3. Right sentinel lymph node biopsy with Lymphoseek 4. Methylene blue injection for sentinel lymph node mapping Surgeon Yumi Reich MD Rn Spine Chitra Leos PA-C Anesthesia General Description of Procedure Patient was identified in the preoperative holding area brought to the operating room suite.? Patient underwent Lymphoseek injection in nuclear Medicine prior to presentation to preop for sentinel lymph node mapping. She was placed supine operating table sequential compression devices were applied. General anesthesia was induced without difficulty. Diluted methylene blue 50 50 solution with saline was injected in the periareolar region intradermally as a dual tracer. Bilateral chest areas were prepped draped in sterile fashion, as well as right axillary region.? Decision was made to start with th right side.? An elliptical incision previously marked by Dr Graf encompassing the nipple areolar complex was made and dissection was carried down through the subcutaneous tissue and continued through the thin areolar tissue plane between the subcutaneous tissue with the breast tissue superiorly to the inferior border of the clavicle.? We then continued our dissection medially to the lateral aspect of the sternum, inferiorly to the inframammary fold and laterally to latissimus.? Once this was performed the breast tissue along with the pectoralis fascia was dissected off the pectoralis muscle posteriorly.? The mastectomy specimen was then marked short stitch superior long stitch lateral stitch lateral for orientation.? The specimen was then sent to pathology as a fresh specimen.? Hemostasis was assured.? Attention was then turned to the right axilla. The Neoprobe was used to identify an area of highest radio activity which was easily accessed through the mastectomy cavity in the right axilla. A hot and blue node was identified and carefully dissected using the LigaSure device. The node count was too high to be measured by the Neoprobe and was sent to pathology as a fresh specimen. The Neoprobe was again used to scan the axilla for any additional hot nodes and no other nodes were identified. The axillary cavity was then irrigated with saline hemostasis was assured. The clavipectoral fascia was approximated using a 2 Vicryl in a running fashion. Attention was then turned to the left prophylactic side. An elliptical incision was again made around the right nipple areola complex, dissection was carried down to the subcutaneous tissue until the thin areolar tissue plane was encountered.? This was then dissected superiorly to the inferior aspect of the clavicle, medially to the lateral aspect of the sternum, laterally to the latissimus dorsi, and inferiorly to the inframammary fold.? The breast along with the pectoralis fascia was then dissected off the pectoralis muscle and the specimen was oriented with a short stitch superiorly and long stitch laterally, and sent to pathology as the fresh specimen.? Hemostasis was assured.? The case was then turned over to Dr. Graf for the immediate reconstruction, please refer to his operative note for further details. All needles counts were correct as reported by the operating room staff. Patient tolerated the procedure well with no immediate complications. Chitra Leos PA-C assisted with retraction and positioning for the entirety of the case. Estimated Blood Loss 20 Drains Yes Pathology Yes Complications No immediate complications Condition Stable Disposition PACU [facility] Billing Surgery - Charge Forward: Surgery Billing (CPT 33061 - R, 41874 - 59 L, 16602 - 59, 30035 - 59)
[2024-06-22] MEDS: fentaNYL CITRATE INJ (*CRX) 100 MCG/2 ML VIAL 25 MCG IV PUSH ×2 (15:45→15:47)
--- NOTE | 2024-06-22 16:51 | ADMGEN ---
This patient, Katheryn Pantoja, was admitted to [facility] Surg Room 331-01. Patient/family oriented to hospital policies and general routines including ID bracelet, bed and alarms, visiting hours, pain management, procedures, bathroom and other care routines, personal items, smoking policy, room service/diet, and visiting hours. Information on how to activate the Rapid Response Team has been discussed. Patient/Family are encouraged to report perceived risks to care and to ask questions if they do not understand what they are told or what they should do.
[2024-06-22 17:00] LABS: Glucose Point of Care 133 mg/dl (65-105)
[2024-06-22] MEDS: SOTALOL HCL 40 MG TABLET PO (17:53)
[2024-06-22] MEDS: DOCUSATE SODIUM 100 MG CAPSULE PO (17:53)
[2024-06-22] MEDS: VENLAFAXINE HCL XR 75 MG CAP.ER.24H PO (17:53)
[2024-06-22] MEDS: SACUBITRIL/VALSARTAN 24-26 MG TABLET 1 TAB PO (17:53)
[2024-06-22] MEDS: ACETAMINOPHEN 325 MG TABLET 650 MG PO ×2 (17:53→23:06)
[2024-06-22] MEDS: busPIRone HCL 10 MG TABLET PO (17:53)
[2024-06-22] MEDS: cefuroxime axetiL 250 MG TABLET 500 MG PO (21:15)
[2024-06-23] MEDS: HYDROmorphone HCL INJ (*CRX) 1 MG/ML SYR IV PUSH (01:43)
[2024-06-23 03:12] VITALS: BP 120/64; PULSE 78; RESP 16; TEMP 36.8; O2SAT 98
[2024-06-23] MEDS: ACETAMINOPHEN 325 MG TABLET 650 MG PO (05:36)
[2024-06-23] MEDS: LEVOTHYROXINE SODIUM 50 MCG TABLET BY MOUTH (05:36)
[2024-06-23 08:11] VITALS: PULSE 76
[2024-06-23] MEDS: SOTALOL HCL 40 MG TABLET PO (08:11)
[2024-06-23] MEDS: busPIRone HCL 10 MG TABLET PO (08:11)
[2024-06-23] MEDS: cefuroxime axetiL 250 MG TABLET 500 MG PO (08:12)
[2024-06-23] MEDS: LINACLOTIDE 72 MCG CAPSULE PO (08:12)
[2024-06-23] MEDS: DOCUSATE SODIUM 100 MG CAPSULE PO (08:13)
[2024-06-23] MEDS: SACUBITRIL/VALSARTAN 24-26 MG TABLET 1 TAB PO (08:13)
[2024-06-23] MEDS: MONTELUKAST SODIUM 10 MG TABLET PO (08:13)
[2024-06-23] MEDS: CYANOCOBALAMIN 1,000 MCG TABLET 1000 MCG PO (08:13)
[2024-06-23] MEDS: VENLAFAXINE HCL XR 75 MG CAP.ER.24H PO (08:13)
--- NOTE | 2024-06-23 08:25 | SUR.PHASEI ---
late entry: prior to going into OR this nurse turned off the ICD with [employer] Young live support and when patient was in recovery room I again with live support, turned the ICD back on at about 1530 06/22/24. The [employer] Rep Vera stated system was running good with no problems.
[2024-06-23 09:00] VITALS: BP 93/62; PULSE 70; RESP 18; TEMP 36.3; O2SAT 98
--- NOTE | 2024-06-23 13:35 | PM.PNGS ---
Progress Note: A&P Assessment and Plan (1) Invasive ductal carcinoma of right breast: Code(s): C50.911 - Malignant neoplasm of unspecified site of right female breast Status: Acute (2) Triple negative malignant neoplasm of breast: Code(s): C50.919 - Malignant neoplasm of unspecified site of unspecified female breast Status: Acute Plan 73 y/o female h/o implanted cardiac device with right breast triple negative IDC healing well POD#1 s/p right non-nipple sparing mastectomy and sentinel lymph node biopsy with left prophylactic non-nipple sparing mastectomy (Dr. Reich), and bilateral immediate prepectoral silicone implant breast reconstruction with acellular dermal matrix (Dr. Graf). Pt tolerated procedure well, recovered in observation overnight without issue, pain well managed, tolerating PO diet and ambulating without issue. Reviewed procedure, post op expectations, and signs/symptoms of concern requiring urgent medical attention. reviewed drain, On-Q, and surgical dressing instructions. reviewed shower instructions. all questions answered. pt voiced understanding and agreement. Plan 1) drain care 2) norco and PO abx 3) d/c home 4) follow up Plastic surg 1 week 5) follow up Oncology 2 weeks 6) follow up Breast surg 2 weeks 7) Cardiac follow up Subjective Subjective Date/Time Seen: 06/23/24 07:00 Interval history: pt seen at bedside, pain well managed overnight. no concerns. ambulating and voiding without issue. denies fever/chills, bleeding/redness, chest pain, SOB, BLE pain, N/V/D, BAIN/lightheadedness, interval change in breast size. implanted cardiac device resumed and interrogated 06/22/24 by PACU without issue. Exam Narrative: sitting comfortably in bed, able to come to sitting position unassisted. Const: General: cooperative, healthy appearing, no acute distress, alert and awake Orientation/consciousness: oriented to person, oriented to place and oriented to time Eyes: Other: anicteric Neck: Other: no JVD Chest: Other: surg bra c/d/i, removed, tegaderm over gauze dressings c/d/i bilaterally. breast tissue and NAC absent bilaterally, bilateral implants in place with symmetric IMF and medial border. implanted cardiac device remains in place left upper chest deep to healed scar. no erythema/ecchymosis, minimal flap edema, bilateral mastectomy flaps warm and well perfused with cap refill <2 sec. moderate bilateral tenderness without seroma/hematoma. drains in place maintaining neg pressure, minimal dark serosanguinous drainage bilateral without clots. On-Q catheters in place, tubing appears patent. drain output decreased overnight. Resp: Effort & Inspection: normal respiratory effort and able to speak in complete sentences Cardio: Other: radial pulse RRR, no pedal edema GI: Other: non-tender Objective Data Vital Signs Vital Signs: Vital Signs - 24 hr 06/22/24 14:46 06/22/24 15:00 06/22/24 15:15 Temperature 36.1 C L Pulse Rate 83 80 79 Respiratory Rate 10 L 20 19 Blood Pressure 121/48 L 112/51 L 114/50 L Pulse Oximetry 98 100 100 Oxygen Delivery Simple Face Mask Simple Face Mask Room Air Oxygen Flow Rate 8 8 06/22/24 15:30 06/22/24 15:45 06/22/24 16:00 Temperature Pulse Rate 80 83 80 Respiratory Rate 20 11 L 16 Blood Pressure 124/51 L 125/59 L 122/67 Pulse Oximetry 98 94 94 Oxygen Delivery Room Air Room Air Room Air Oxygen Flow Rate 06/22/24 16:15 06/22/24 16:30 06/22/24 17:53 Temperature Pulse Rate 80 79 79 Respiratory Rate 21 H 17 Blood Pressure 119/57 L 123/62 Pulse Oximetry 94 96 Oxygen Delivery Room Air Room Air Oxygen Flow Rate 06/22/24 16:55 06/22/24 17:10 06/22/24 17:40 Temperature 36.9 C 36.8 C 37.3 C Pulse Rate 74 80 79 Respiratory Rate 14 14 14 Blood Pressure 152/62 H 142/57 H 125/74 Pulse Oximetry 99 98 97 Oxygen Delivery Oxygen Flow Rate 06/22/24 19:21 06/22/24
== END 2024-06-23 09:50 | disposition home or self-care (01) ==
LOC: ANHSURGERY 15:06 → ANH3MEDSUR 16:43
PROVIDERS: Plastic Surgery; PCP Internal Medicine; Visit Provider Surgery
PROC: (CPT 19303; principal; 2024-06-22 11:00)
PROC: (CPT 19340; 2024-06-22 11:00)
DX: C50.911 Malignant neoplasm of unspecified site of right female breast (principal); I42.8 Other cardiomyopathies; I10 Essential (primary) hypertension; E78.5 Hyperlipidemia, unspecified; E03.9 Hypothyroidism, unspecified; E11.9 Type 2 diabetes mellitus without complications; F41.9 Anxiety disorder, unspecified; F32.A Depression, unspecified; Z86.73 Personal history of transient ischemic attack (TIA), and cerebral infarction without residual deficits; K58.1 Irritable bowel syndrome with constipation; K21.9 Gastro-esophageal reflux disease without esophagitis; Z95.810 Presence of automatic (implantable) cardiac defibrillator; Z90.49 Acquired absence of other specified parts of digestive tract; F12.90 Cannabis use, unspecified, uncomplicated; Z79.85 Long-term (current) use of injectable non-insulin antidiabetic drugs; Z79.84 Long term (current) use of oral hypoglycemic drugs; F17.200 Nicotine dependence, unspecified, uncomplicated
CPT/HCPCS: 19303; 19340; 38525; 15777; 38900; 38792; 82948; 88307; 88342; A9270; A9520; J0330; J0690; J1100; J1170; J1580; J2250; J2405; J2704; J3010; J7120; Q4116; Q9968

== ENCOUNTER 2024-07-24 14:29 | Emergency (ER) | payer MEDICARE, SELFPAY ==
[2024-07-24 14:30] VITALS: BP 136/86; PULSE 115; RESP 18; TEMP 36.4; O2SAT 100
--- NOTE | 2024-07-24 18:04 | ED.RECABL ---
HPI - Recheck/Abnormal Lab/Rx General Chief Complaint: Recheck/Abnormal Lab/Rx Stated Complaint: post op complaints Time Seen by Provider: 07/24/24 17:46 Source: patient Mode of arrival: ambulatory Limitations: no limitations History of Present Illness HPI narrative: This is a 73 year old female that presents to the ER for left breast pain. Reports recent bilateral mastectomy and implant placement for breast cancer. Reports since yesterday she has had worsening swelling and pain to the left breast. Denies fevers, abnormal discharge or redness. Related Data Home Medications Medication Instructions Recorded Confirmed sacubitril 24 mg-valsartan 26 mg 1 tablet PO BID 01/14/23 06/16/24 tablet (Entresto) cyanocobalamin (vitamin B-12) 1,000 mcg PO DAILY 06/16/24 06/16/24 1,000 mcg tablet ondansetron HCl 8 mg tablet 8 mg PO PRN PRN Nausea 06/16/24 06/16/24 venlafaxine 75 mg capsule,extended 75 mg PO BID 06/16/24 06/16/24 release 24 hr Allergies Allergy/AdvReac Type Severity Reaction Status Date / Time codeine AdvReac Severe Nausea and Verified 07/21/24 09:01 Vomiting meperidine [From Demerol] AdvReac Severe Nausea and Verified 07/21/24 09:01 Vomiting Review of Systems Review of Systems: CONSTITUTIONAL: Denies fever SKIN: Denies redness BREAST: Reports pain and swelling All systems reviewed & are unremarkable except as noted in HPI and below PMFSH Past Medical History Medical History Abdominal cramping Anxiety BMI 28.0-28.9,adult BMI 29.0-29.9,adult Cardiac dysrhythmia Patient on sotalol. Hx ventricular dysrhythmia s/p ICD. Cardiomyopathy Nonischemic cardiomyopathy Status post PM/ICD insertion. Previous EF of 35% (per patient report). Patient of Dr. Boggs. Cerebrovascular accident Chronic lacunar infarct near anterior limb of right internal capsule noted on brain CT dated 02/24/2021. This was unknown to the patient. Constipation Depression Diverticula of colon Diverticulitis Elbow pain, right Encounter for Medicare annual wellness exam Encounter for routine adult health examination with abnormal findings Encounter to establish care Follow up History of CVA (cerebrovascular accident) Hyperlipidemia Hypertension Hypothyroidism Irritable bowel syndrome with constipation Lumbar hernia Nausea Nonerosive esophageal reflux disease On intermediate drug therapy Post-menopausal Shoulder pain, bilateral Symptoms consistent with irritable bowel syndrome Type 2 diabetes mellitus Hemoglobin A1c was 5.4% on 02/24/2021. Surgical History Surgical History Cardiac defibrillator in place History of exploratory laparotomy 01/15/22 History of foot surgery History of hysterectomy Open oophorectomy (unsure of side) and incidental appendectomy as a teenager, and later eventually had a vaginal hysterectomy History of laparoscopic adjustable gastric banding History of left knee surgery History of partial colectomy Partial left colectomy secondary to diverticulitis in 2019. History of right breast biopsy Benign pathology. History of thumb surgery Status post panniculectomy 12/2020 Family History Family History Sibling Stomach cancer Alcoholism Asthma Breast cancer Thyroid disorder Father Skin cancer Hypertension Heart disease Mother Skin cancer Hypertension Thyroid disorder Other Depression Grandparent Diabetes mellitus Asthma Other Venous thromboembolism Social History Social History (Updated 06/14/24 @ 09:03 by Kiley Laws [facility]) Social History: Surrogate decision maker: Jonathan Pantoja, . Code: Full code. Smoking status: Never smoker Second hand tobacco smoke exposure: No Alcohol intake: never Substance use: current Substance use type: marijuana Last use: 06/14/24 Do You F
[2024-07-24 18:49] VITALS: BP 139/88; PULSE 74; RESP 18; O2SAT 99
--- NOTE | 2024-07-24 19:57 | PC.NURSE ---
Assumed care of patient and received report from Felicita ECHEVERRIA. Patient resting comfortably on ED cart at this time. No acute distress noted, breathing unlabored. Patient's at bedside.
[2024-07-24 20:00] LABS: Basophils Absolute Auto 0.1 K/mm3 (0.0-0.1); Basophils Percent Auto 0.9 % (0.2-1.2); Eosinophils Absolute Auto 0.4 K/mm3 (0-0.3); Eosinophils Percent Auto 5.9 % (0-4.4); Hematocrit 40.5 % (37.0-47.0); Hemoglobin 13.4 g/dL (12.0-15.0); Immature Granulocyte Absolute 0.02 K/mm3 (0.00-0.031); Immature Granulocyte Percent A 0.3 % (0-0.5); Lymphocytes Absolute Auto 1.99 K/mm3 (0.9-3.2); Lymphocytes Percent Auto 28.7 % (18.3-44.2); Mean Corpuscular HGB Conc 33.1 g/dl (32-36); Mean Corpuscular Hemoglobin 31.5 pg (26-34); Mean Corpuscular Volume 95.1 fl (80-100); Mean Platelet Volume 12.5 fl (7.4-10.4); Neutrophils Absolute Auto 3.4 K/mm3 (1.3-6.7); Neutrophils Percent Auto 49.2 % (45.5-73.1); Platelet Count Result 111 k/mm3 (150-375); Red Blood Count 4.26 M/mm3 (4.2-5.4); Red Cell Distribution Width 14.6 % (11.5-14.5); White Blood Count 6.9 K/mm3 (4.5-10.0)
[2024-07-24 20:14] LABS: Anion Gap 6 mmol/L (4-12); Blood Urea Nitrogen 15 mg/dL (7-17); CRP < 0.5 mg/dL (<1.0); Calcium 9.5 mg/dL (8.4-10.2); Carbon Dioxide 29 mmol/L (22-30); Chloride 104 mmol/L (98-107); Estimated CRCL calculation 38 ml/min; Estimated Glomerular Filt Rate 54; Glucose 87 mg/dL (65-110); Potassium 3.9 mmol/L (3.4-5.0); Sodium 139 mmol/L (137-145)
[2024-07-24 20:30] LABS: Erythrocyte Sedimentation Rate 14 mm/hr (0-20)
== END 2024-07-24 21:23 | disposition home or self-care (01) ==
PROVIDERS: Emergency Provider Physician Assistant; PCP Internal Medicine
DX: N64.4 Mastodynia (principal); Z98.890 Other specified postprocedural states; C50.919 Malignant neoplasm of unspecified site of unspecified female breast; Z90.13 Acquired absence of bilateral breasts and nipples; Z98.82 Breast implant status; I42.8 Other cardiomyopathies; I10 Essential (primary) hypertension; E78.5 Hyperlipidemia, unspecified; E11.9 Type 2 diabetes mellitus without complications; E03.9 Hypothyroidism, unspecified; K58.1 Irritable bowel syndrome with constipation; K21.9 Gastro-esophageal reflux disease without esophagitis; Z95.810 Presence of automatic (implantable) cardiac defibrillator; Z86.73 Personal history of transient ischemic attack (TIA), and cerebral infarction without residual deficits; Z90.710 Acquired absence of both cervix and uterus; Z90.721 Acquired absence of ovaries, unilateral; Z90.49 Acquired absence of other specified parts of digestive tract; Z79.85 Long-term (current) use of injectable non-insulin antidiabetic drugs; Z79.899 Other long term (current) drug therapy
CPT/HCPCS: 36415; 80048; 85025; 85652; 86140; 99283

== ENCOUNTER 2024-08-03 13:41 | Outpatient (CLI) | payer MEDICARE, SELFPAY ==
--- NOTE | ~2024-08-03 | XR_ITS ---
Right foot Technique: AP, oblique, and lateral views were obtained. Clinical History: Pain Findings: No acute fracture or dislocation is seen. There are moderate degenerative changes at the ta rsometatarsal joints, especially second through fourth. There is hallux valgus with minimal degenerat chepe change of the first MTP joint. Borderline pes planus.. Soft tissues are unremarkable. Impression: Borderline pes planus. Moderate degenerative changes of the tarsometatarsal joints, second through fourth. Tonsillitis is minimal degenerative change of the first MTP joint. Reviewed, dictated and finalized at location . Impression: Borderline pes planus. Moderate degenerative changes of the tarsometatarsal joints, second through fou rth. Tonsillitis is minimal degenerative change of the first MTP joint.
== END 2024-08-03 13:42 | disposition home or self-care (01) ==
PROVIDERS: PCP Internal Medicine; Visit Provider Internal Medicine
DX: R22.41 Localized swelling, mass and lump, right lower limb (principal); M79.671 Pain in right foot
CPT/HCPCS: 73630

== ENCOUNTER 2024-08-04 08:55 | Outpatient (CLI) | payer MEDICARE, SELFPAY ==
[2024-08-04 10:08] LABS: Alanine Aminotransferase 10 U/L (6-35); Alkaline Phosphatase 51 U/L (38-126); Anion Gap 3 mmol/L (4-12); Aspartate Amino Transferase 35 U/L (14-36); Bilirubin,Total 0.9 mg/dL (0.2-1.3); Blood Urea Nitrogen 9 mg/dL (7-17); Calcium 9.3 mg/dL (8.4-10.2); Carbon Dioxide 30 mmol/L (22-30); Chloride 106 mmol/L (98-107); Cholesterol 148 mg/dL (0-200); Estimated Glomerular Filt Rate > 60; Glucose 97 mg/dL (65-110); HDL Direct 72 mg/dL; Potassium 4.1 mmol/L (3.4-5.0); Sodium 139 mmol/L (137-145); Triglycerides 106 mg/dL (<150)
[2024-08-04 10:18] LABS: LDL Cholesterol Direct 51 mg/dL
[2024-08-04 10:19] LABS: Hemoglobin A1C 5.6 % (<5.7)
[2024-08-04 10:38] LABS: Thyroid Stimulating Hormone 0.209 uIU/mL (0.465-4.680)
[2024-08-04 10:42] LABS: Free T4 Free Thyroxine 1.47 ng/mL (0.78-2.19)
== END 2024-08-04 08:56 | disposition home or self-care (01) ==
PROVIDERS: PCP Internal Medicine; Visit Provider Internal Medicine
DX: E03.9 Hypothyroidism, unspecified (principal); E78.5 Hyperlipidemia, unspecified; E11.9 Type 2 diabetes mellitus without complications; I10 Essential (primary) hypertension
CPT/HCPCS: 36415; 80053; 80061; 83036; 84439; 84443

== ENCOUNTER 2024-08-12 10:02 | Outpatient (CLI) | payer MEDICARE, SELFPAY ==
--- NOTE | ~2024-08-12 | US_ITS ---
EXAMINATION: US soft tissue LE RT DATE: 08/12/2024 10:32 INDICATION: Localized swelling, mass and lump, right foot. TECHNIQUE: Multiple grayscale and Doppler ultrasound images of the right foot were obtained. COMPARISON: Right foot radiographs 08/03/2024 FINDINGS: There is severe osteoarthritis of second tarsometatarsal joint with osteophytes and capsula r hypertrophy in the patient's area of concern. IMPRESSION: 1. Severe osteoarthritis of second tarsometatarsal joint in the patient's area of concern. Reviewed, dictated and finalized at location A.
== END 2024-08-12 10:03 | disposition home or self-care (01) ==
LOC: ANHIMG 10:04
PROVIDERS: PCP Internal Medicine; Visit Provider Internal Medicine
DX: R22.41 Localized swelling, mass and lump, right lower limb (principal); M19.071 Primary osteoarthritis, right ankle and foot
CPT/HCPCS: 76882

== ENCOUNTER 2024-10-05 12:26 | Outpatient (CLI) | payer MEDICARE, SELFPAY ==
[2024-10-05 13:12] LABS: Basophils Absolute Auto 0.1 K/mm3 (0.0-0.1); Basophils Percent Auto 1.5 % (0.2-1.2); Eosinophils Absolute Auto 0.3 K/mm3 (0-0.3); Eosinophils Percent Auto 4.8 % (0-4.4); Hematocrit 42.4 % (37.0-47.0); Hemoglobin 13.6 g/dL (12.0-15.0); Immature Granulocyte Absolute 0.01 K/mm3 (0.00-0.031); Immature Granulocyte Percent A 0.2 % (0-0.5); Immature Platelet Fraction Pct 10.7 % (0.9-11.2); Lymphocytes Absolute Auto 1.49 K/mm3 (0.9-3.2); Lymphocytes Percent Auto 24.6 % (18.3-44.2); Mean Corpuscular HGB Conc 32.1 g/dl (32-36); Mean Corpuscular Hemoglobin 30.2 pg (26-34); Mean Corpuscular Volume 94.2 fl (80-100); Mean Platelet Volume 11.9 fl (7.4-10.4); Monocytes Absolute Auto 0.8 K/mm3 (0.1-0.6); Monocytes Percent Auto 13.4 % (2.6-8.5); Neutrophils Absolute Auto 3.4 K/mm3 (1.3-6.7); Neutrophils Percent Auto 55.5 % (45.5-73.1); Platelet Count Result 125 k/mm3 (150-375); Red Cell Distribution Width 13.2 % (11.5-14.5); White Blood Count 6.1 K/mm3 (4.5-10.0)
[2024-10-05 13:23] LABS: Alanine Aminotransferase 10 U/L (6-35); Albumin Level 3.9 g/dL (3.5-5.1); Alkaline Phosphatase 55 U/L (38-126); Anion Gap -1 mmol/L (4-12); Aspartate Amino Transferase 32 U/L (14-36); Bilirubin,Total 0.5 mg/dL (0.2-1.3); Blood Urea Nitrogen 13 mg/dL (7-17); Calcium 9.4 mg/dL (8.4-10.2); Carbon Dioxide 33 mmol/L (22-30); Chloride 105 mmol/L (98-107); Estimated Glomerular Filt Rate 49; Glucose 85 mg/dL (65-110); Potassium 4.4 mmol/L (3.4-5.0); Sodium 137 mmol/L (137-145)
[2024-10-05 14:28] LABS: Folic Acid 6.7 ng/mL (2.76->20); Vitamin B12 > 1000.0 pg/mL (239-931)
[2024-10-06 07:13] LABS: CA 15-3 22 U/mL (<32)
== END 2024-10-05 12:27 | disposition home or self-care (01) ==
LOC: ANHLAB 12:29
PROVIDERS: PCP Internal Medicine; Visit Provider Internal Medicine Hematology & Oncology
DX: C50.411 Malignant neoplasm of upper-outer quadrant of right female breast (principal); Z17.1 Estrogen receptor negative status [ER-]; D64.9 Anemia, unspecified
CPT/HCPCS: 36415; 80053; 82607; 82746; 85025; 85055; 86300

== ENCOUNTER 2025-01-12 10:02 | Outpatient (CLI) | payer MEDICARE, SELFPAY ==
--- NOTE | ~2025-01-12 | US_ITS ---
EXAMINATION TYPE: US breast RT limited COMPARISON: NONE REASON FOR STUDY: N63.13 - Unspecified lump in the right breast, lower oute... TECHNIQUE: Targeted sonographic evaluation of the right breast was performed. INTERPRETATION: At the 12:00 position right breast region, 8 cm from the nipple, there is a 9 x 7 x 3 mm wider than t all mildly heterogeneous solid mass. This is indeterminate. At the 7:00-o'clock position, 7 cm from t he nipple, there is a 4 mm simple cyst. IMPRESSION: Indeterminate 9 x 7 x 3 mm solid mass at the 12:00 position, 8 cm from the nipple. Ultrasound-guided biopsy should be considered to establish a histologic diagnosis. BI-RADS CATEGORY: BIRADS 4--Suspicious Abnormality-Biopsy should be Considered Reviewed, dictated and finalized at [facility]. IMPRESSION: Indeterminate 9 x 7 x 3 mm solid mass at the 12:00 position, 8 cm from the nipp le. Ultrasound-guided biopsy should be considered to establish a histologic buck gnosis. BI-RADS CATEGORY: BIRADS 4--Suspicious Abnormality-Biopsy should be Considered
--- OUTSIDE RECORDS SUMMARY | 2025-01-12 11:21 | XMS_ITS | Clinical Summary ---
Author Organization [facility] Address [address] [facility] [place] [address] Phone Care Team Providers Care Hairspring Inspector Name Role Phone Duglas Collado MD Primary Care Provider Allergies Active Allergy Reactions Criticality Noted Date Comments Codeine Nausea and Vomiting Low 06/30/2014 Meperidine Nausea and Vomiting Low 06/30/2014 Medications enalapril (VASOTEC) 20 mg tablet Take 20 mg by mouth daily. Active montelukast (SINGULAIR) 10 mg tablet Take 10 mg by mouth daily. Active albuterol 90 mcg/Actuation HFA inhaler Take 2 Puffs by inhalation every 6 hours as needed for Shortness of Breath. Active aspirin (ECOTRIN EC) 81 mg Tablet, Delayed Release (E.C.) Take 81 mg by mouth daily. Active Accu-Chek Guide test strips Strip USE 1 ONCE DAILY 2 Active busPIRone (BUSPAR) 10 mg tablet 2 times daily. Activ e calcitRIOL (ROCALTROL) 0.25 mcg capsule calcitriol 0.25 mcg capsule TAKE 1 CAPSULE BY MOUTH ONCE DAILY 0 Active ergocalciferol (VITAMIN D2) 50,000 unit capsule Take 50,000 Units by mouth every 7 days. 9 Active fexofenadine (CESAR) 180 mg tablet fexofenadine 180 mg tablet Active ketorolac tromethamine (ACULAR) 0.5 % solution 2 Active venlafaxine (EFFEXOR) 75 mg tablet Take 75 mg by mouth daily. Active rosuvastatin (CRESTOR) 40 mg tablet rosuvastatin 40 mg tablet TAKE 1 TABLET BY MOUTH ONCE DAILY Active semaglutide (Ozempic) 0.25 mg or 0.5 mg(2 mg/1.5 mL) Pen Injector Ozempic 0.25 mg or 0.5 mg (2 mg/1.5 mL) subcutaneous pen injector INJECT 0.5MG SUB-Q ONCE WEEKLY 9 Active sotaloL (BETAPACE) 80 mg tablet 2 times daily. 9 Active magnesium oxide (MAG-OX) 400 mg (241.3 mg magnesium) tablet magnesium oxide 400 mg (241.3 mg magnesium) tablet TAKE 1 TABLET BY MOUTH TWICE DAILY Active coenzyme Q10 100 mg Capsule Take 100 mg by mouth daily. 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 Encounters Date Type Department Care Team Description 01/01/2025 External Device Data [facility] ABSTRACTION Provider, Abstract 01/01/2025 External Device Data [facility] ABSTRACTION Provider, Abstract 12/29/2024 External Device Data [facility] ABSTRACTION Provider, Abstract 12/15/2024 External Device Data [facility] ABSTRACTION Provider, Abstract 11/18/2024 External Device Data [facility] ABSTRACTION Provider, Abstract from Last 3 Months Family History Medical History Relation Name Comments Heart Disease Father Other Father born with bad h eart Diabetes Maternal Grandfather Diabetes Mother Diabetes Paternal Grandmother Relation Name Status Comments Father Maternal Grandfather Mother Alive Paternal Grandmother Social History Tobacco Use Types Packs/Day Years Used Date Smoking Tobacco: Never Smokeless Tobacco: Never Alcohol Use Standard Drinks/Week Comments Yes 0 (1 standard drink = 0.6 oz pur e alcohol) 1-3/week Comments No Sex and Gender Information Value Date Recorded Sex Assigned at Not on file Legal Sex Female 11:47 AM CDT Gender Identity Not on file Sexual Orientation Not on file Last Filed Vital Signs Vital Sign Reading Time Taken Comments Blood Pressure 104/71 2024 2:17 PM EMAIL OPERATIONS MANAGER Pulse 91 2024 2:17 PM EMAIL OPERATIONS MANAGER Temperature 36.9 C (98.4 F) 2024 2:17 PM EMAIL OPERATIONS MANAGER Respiratory Rate 15 2024 2:17 PM EMAIL OPERATIONS MANAGER Oxygen Saturation 95% 2024 2:17 PM EMAIL OPERATIONS MANAGER Inhaled Oxygen Concentration - - Weight 69.3 kg (152 lb 12.8 oz) 2024 2:17 PM EMAIL OPERATIONS MANAGER Height 152.4 cm (5') 04/25/2022 11:38 AM CDT Body Mass Index 29.84 04/25/2022 11:38 AM CDT Plan of Treatment Upcoming Encounters Date Type Department Care Team (Late st Contact Info) Description 04/12/2025 11:00 AM CDT Office Visit [facility] Oncology and Hematology [facility] [address] [facility] [place] [address] Brandon Willis MD [address] [place] [address] Health Maintenance Due Date Last Done Comments DIABETES ANNUAL FOOT EXAM 1968 DIABETES MICROALBUMIN ANNUAL SCREEN 1968 LDL CHOLESTEROL ANNUAL 1968 DTAP/TDAP/TD VACCINES (1 - Tdap) 1969 BREAST CANCER SCREENING 1990 FIT-DNA Q 3 years 1995 FIT/FOBT Q 1 year 1995 Flex Sig/CT Colonography Q 5 years 1995 ZOSTER VACCINE (2 of 3) 09/23/2013 07/29/2013 DIABETES ANNUAL RETINAL EXAM 02/19/2023, 12/04/2021, 12/04/2021, Additional history exists INFLUENZA VACCINE (#1) 2024 2, 08/14/2021, 08/09/2019, Additional history exists DIABETES HBA1C Q 6 MONTHS 02/02/20252023, 03/16/2024, 09/02/2023, Additional history exists RSV VACCINE (60+ or ) (1 - 1-dose 75+ series) 2025 COLORECTAL SCREENING 11/07/2032 11/07/2022, 07/01/20 13 Colorectal Cancer Screening 11/07/2032 PNEUMOCOCCAL VACCINE 50+ YEARS Completed 09/17/2022 , 09/19/2019 OSTEOPOROSIS SCREENING Completed 11/28/2023, 2020 Medical Devices Implanted Type Area Data Integration Developer Device Identifier Shelf Expiration Date Model / Serial / Lot Lap Band,Bilat Knee Replacement Implanted:(Quantit y not on file) Explanted:(Quantit y not on file) Insurance MEDICARE PART A AND B [employer] MEDICARE SUPP AESSI MEDICARE PART A AND B AET[employer] MEDICARE SUPP AESSI Advance Directives For more information, please contact: [phone] * Full Code (Latest Code Status on File) Date Activated Date Inactivated Comments 07/05/2014 8:17 AM 07/05/2014 11:32 AM * Full Code Date Activated Date Inactivated Comments 07/05/2014 6:54 AM 07/05/2014 8:17 AM Care Teams Hairspring Inspector Relationship Specialty Start Date End Date Duglas Collado MD PCP - General Internal Medicine 03/27/22
--- OUTSIDE RECORDS SUMMARY | 2025-01-12 11:21 | XMS_ITS | Continuity of Care Document ---
Author Organization [facility] Address [address] [place] [address] [address] [place] [address] Phone Care Team Providers Care Bsa Officer Name Role Phone Jessica Reece Unavailable Unavailable Procedures Procedure Date Office/outpatient Visit, Est Advance Directives Directive Yes / No Effective Date File Name No Information Encounters Encounter Description Practice Location Reason(s) For Visit Diagnoses Date Provider Providers Copied on Encounter Office/outpat ient Visit, Est [facility], [address] [place] [address] [address] [place], [place], [id number], [place] tel:[phone] [facility] No Information [phone] 0 Shanell Lopez. [address] , [address], [place], [address], [place]. tel:[phone] Family History Family Member Type Diagnosis Age At Onset No Information Payers Payer name Insurance type Covered libertarian ID Authoriza tion(s) No Information Social History [...]
--- OUTSIDE RECORDS SUMMARY | 2025-01-12 11:22 | XMS_ITS | Clinical Summary ---
Author Organization [facility] Address [address] [place] [address] Care Team Providers Care Back Wedger Name Role Phone Duglas Collado MD Primary Care Provider Source Comments [facility] Affiliates and Associated Physician Practices is amultiple site organization consisting of ambulatory clinics and hospital sitesin [place], [place], [place] and [place]. This disclosure is being madepursuant to the Care Everywhere program and may not contain all information available regarding this patient. Last updated 18.[facility] Allergies Active Allergy Reactions Criticality Noted Date Comments Codeine Nausea and/or Vomiting,Vomiting Medium 05/27 Meperidine Nausea and/or Vomiting,Vomiting Medium 05/27 Medications * Be aware that medications may not be up to date on this document. Alwaysverify current medications with the patient. Medication Sig Dispensed Refills Start Date End Date Status loratadine (CLARITIN) 10 MG tablet Take 10 mg by mouth once daily 09/30/2019 Active vitamin D, ergocalciferol, (DRISDOL) 1.25 MG (60107 UT) capsule Take 50,000 Units by mouth every 7 days 0 05/14/2019 Active venlafaxine (EFFEXOR) 75 MG tablet Take 75 mg by mouth once daily Active fenofibrate (TRICOR) 145 MG tablet Take 145 mg by mouth once daily 03/18/2018 Active glipiZIDE (GLUCOTROL) 5 MG tablet Take 5 mg by mouth 2 times daily Active lisinopril (PRINIVIL;ZESTRIL) 5 MG tablet Take 5 mg by mouth once daily Active sotalol (BETAPACE) 80 MG tablet Take 80 mg by mouth 2 times daily 10/23/2019 Active rosuvastatin (CRESTOR) 40 MG tablet Take 40 mg by mouth once daily Active montelukast (SINGULAIR) 10 MG tablet Take 10 mg by mouth once daily Active MAGNESIUM-OXIDE 400 (241.3 Mg) MG tablet Take 400 mg by mouth 2 times daily 10/16/2019 Active levothyroxine (SYNTHROID) 50 MCG tablet Take 50 mcg by mouth once daily Active semaglutide (OZEMPIC, 0.25 OR 0.5 MG/DOSE,) 2 MG/1.5ML pen Ozempic 0.25 mg or 0.5 mg (2 mg/1.5 mL) subcutaneous pen injector Active aspirin EC (ECOTRIN) 81 MG tablet Take 81 mg by mouth once daily Active Active Problems Problem Noted Date Diagnosed Date Cardiomyopathy 10/28/2019 Biventricular ICD (implantab le cardioverter-defibrillator) in place 10/28/2019 Essential hypertension 10/28/2019 Sleep apnea 10/28/2019 Other hyperlipidemia 10/28/2019 Diabetes mellitus type 2, controlled, without co mplications 10/28/2019 Hypothyroidism 10/28/2019 Arthritis 10/28/2019 NAFLD (nonalcoholic fatty liver disease) 020 Overview (10/31/2019): 10/28/19 Fibroscan CAP 113, LSM 5.5 kPa Social History Tobacco Use Types Packs/Day Years Used Date Smoking Tobacco: Never Smokeless Tobacco: Never Alcohol Use Standard Drinks/Week Comments Never 0 (1 standard drink = 0.6 oz pur e alcohol) AUDIT-C Answer Date Recorded Frequency of Alcohol Consumption Never 10/28/2019 Average Number of Drinks Not on file 020 Frequency of Binge Drinking Not on file 11/2019 Sex and Gender Information Value Date Recorded Sex Assigned at Not on file Gender Identity Not on file Sexual Orientation Not on file Last Filed Vital Signs Vital Sign Reading Time Taken Comments Blood Pressure 110/68 10/28/2019 2:58 PM WASTEWATER PROJECT ENGINEER Pulse 77 10/28/2019 2:58 PM WASTEWATER PROJECT ENGINEER Temperature 36.7 C (98.1 F) 10/28/2019 2:58 PM WASTEWATER PROJECT ENGINEER Respiratory Rate 18 10/28/2019 2:58 PM WASTEWATER PROJECT ENGINEER Oxygen Saturation 96% 10/28/2019 2:58 PM WASTEWATER PROJECT ENGINEER Inhaled Oxygen Concentration - - Weight 87.2 kg (192 lb 4.8 oz) 10/28/2019 2:58 P M WASTEWATER PROJECT ENGINEER Height 165.1 cm (5' 5 ) 10/28/2019 2:58 PM WASTEWATER PROJECT ENGINEER Body Mass Index 32 10/28/2019 2:58 PM WASTEWATER PROJECT ENGINEER Plan of Treatment Health Maintenance Due Date Last Done Comments BONE DENSITY TESTING 1950 COLOGUARD (AGES 45-75) - COLON CA SCREENING 1950 COLON MONITORING 1950 COLONOSCOPY - COLON CA SCREENING 1950 CT COLONOGRAPHY - COLON CA SCREENING 1950 Colorectal Cancer Screening 1950 FIT - COLON CA SCREENING 1950 FLEX SIG - COLON CA SCREENING 1950 MAMMOGRAM 1950 MEDICARE AWV 12 MONTHS 1950 HEPATITIS C SCREENING 10/06/1968 DTAP/TDAP/TD VACCINES (1 - Tdap) 1969 PNEUMOCOCCAL VACCINE 50+ (1 of 2 - PCV) 1969 ZOSTER VACCINE (1 of 2) 2000 DIABETES RETINOPATHY SCREENING 10/28/2019 DIABETES-FOOT EXAM WITH MONOFILAMENT 10/28/2019 DIABETES-HGB A1C 10/28/2019 DIABETES-SERUM CREATININE 12/20/2020 12/20/2019 COVID-19 VACCINE ( - 2023- season) 2024 INFLUENZA VACCINE (#1) 2024 9, 08/09/2019, 08/05/2018, Additional history exists DEPRESSION SCREENING 10/27/2024 DIABETES - URINE PROTEIN SCREENING 10/27/2024 Respiratory Syncytial Virus (RSV) Vaccine Pt: or over 60 yrs (1 - 1-dose 75+ series) 2025 HEPATITIS B VACCINE Aged Out No longe r eligible based on patient's age to complete this topic HIB VACCINE Aged Out No longer eligi ble based on patient's age to complete this topic HPV VACCINE Aged Out No longer eligi ble based on patient's age to complete this topic MENINGOCOCCAL (Group B) VACCINE SHARED DECISION-MAKING Aged Out No longer eligible based on patient's age to complete this topic MENINGOCOCCAL GROUPS A/C/Y/W VACCINE Aged Out No longer eligible based on patient's age to complete this topic Procedures Procedure Name Priority Date/Time Associated Diagnosis Comments COMP MET PANEL (EXTERNAL RESULT ENTRY) Routine 12/20/2019 from Last 3 Months or Most Recently Relevant to Health Maintenance Results * (ABNORMAL) COMP MET PANEL (EXTERNAL RESULT ENTRY) (12/20/2019) Glucose (EXTERNAL) 131(A) 70 - 99 mg/dL Sodium (EXTERNAL RESULT) 140 137 - 145 mmol/L Potassium (EXTERNAL RESULT) 4 3.5 - 5.1 mmol/L Chloride (EXTERNAL RESULT) 105 98 - 107 mmol/L CO2 (EXTERNAL) 27 22 - 30 mmol/L Calcium (EXTERNAL RESULT) 9.9 8.4 - 10.2 mg/dL Anion Gap (EXTERNAL RESULT) 12(A) 14 - 22 mmol/L BUN (EXTERNAL RESULT) 17 8 - 19 mg/dL Creatinine (EXTERNAL RESULT) 1.16 0.66 - 1.25 mg/dl Alkaline Phosphatase (EXTERNAL RESULT) 47 38 - 126 U/L ALT (EXTERNAL RESULT) 24 0 - 35 U/L AST (EXTERNAL RESULT) 69(A) 15 - 37 U/L Protein Total (EXTERNAL RESULT) 6.5 6.3 - 8.2 gm/dL Albumin (EXTERNAL RESULT) 3.8 3 - 4.4 gm/dL Bilirubin Total (EXTERNAL RESULT) 0.9 0.2 - 1.3 mg/dL eGFR MDRD (EXTERNAL RESULT) 46(A) >60 mL/min/1.7 3m2 eGFR (EXTERNAL) Blood BLOOD SPECIMEN / Unknown 12/20/2019 Historical Provider LAB - CHEMISTRY O RDERABLES from Last 3 Months or Most Recently Relevant to Health Maintenance Care Teams Back Wedger Relationship Specialty Start Date End Date Duglas Collado MD [address] [facility] [address] [place] [phone] PCP - General Internal Medicine 07/16/19
--- OUTSIDE RECORDS SUMMARY | 2025-01-12 11:22 | XMS_ITS | Referral Summary ---
Author Organization [facility] Address [address] [place] [address] Care Team Providers Care Supersonic Engineer Name Role Phone Dante Collado MD Primary Care Provide r Mk Alejandra MD Unavailable [phone] Allergies Active Allergy Reactions Criticality Noted Date Comments Codeine Nausea & Vomiting,Na usea And Vomiting,Vomiting,Nausea only Medium 06/09/2013 Meperidine Nausea & Vomiting,Na usea And Vomiting,Vomiting,Nausea only Medium 06/09/2013 Medications venlafaxine (EFFEXOR) 75 mg tablet Take 75 mg by mouth daily. Active simvastatin (ZOCOR) 40 mg tablet Take 40 mg by mouth nightly. Active montelukast (SINGULAIR) 10 mg tablet Take 10 mg by mouth daily. Active levothyroxine (SYNTHROID, LEVOTHROID) 50 mcg tablet Take 50 mcg by mouth daily before breakfast. Active aspirin 81 mg tablet Take 81 mg by mouth daily. Active ONETOUCH ULTRA2 kit USE DIRECTED TO TEST BLOOD GLUCOSE 0 02/27/20 18 Active ONETOUCH ULTRA BLUE TEST STRIP strip TEST BLOOD GLUCOSE ONCE DAILY DIRECTED 0 02/27/20 18 Active magnesium oxide (MAG-OX) 400 mg (241.3 mg elemental magnesium) tabletIndications:hy pomagnesemia Take 1 tablet by mouth 2 (two) times a day. 11 03/22/20 18 Active sotalol (BETAPACE) 80 mg tablet Take 1 tablet by mouth 2 (two) times a day. 8 03/24/20 18 Active fenofibrate nanocrystallized (TRICOR,TRIGLIDE) 145 mg tablet Take 1 tablet by mouth daily. 3 03/18/20 18 Active ONETOUCH DELICA LANCETS 33 gauge misc USE DIRECTED TO TEST BLOOD GLUCOSE ONCE DAILY 3 02/27/20 18 Active lisinopril (PRINIVIL,ZESTRIL) 2.5 mg tablet Take 2.5 mg by mouth nightly. 11 07/10/20 18 Active glipiZIDE (GLUCOTROL) 5 mg tabletIndications:ty pe 2 diabetes mellitus Take 5 mg by mouth 2 (two) times a day before breakfast and lunch Active semaglutide (OZEMPIC) 0.25 mg or 0.5 mg(2 mg/1.5 mL) pen injector injection Ozempic 0.25 mg or 0.5 mg (2 mg/1.5 mL) subcutaneous pen injector INJ 0.5MG SC Q WK Active calcitRIOL (ROCALTROL) 0.25 mcg capsule Take 0.25 mcg by mouth daily Active Active Problems Problem Noted Date Diagnosed Date Numbness and tingling of left hand 02/18/2022 Spell of generalized weakness 01/04/2022 Intractable vomiting 01/17/2021 Overview (01/17/2021): Added automatically from request for surgery [id number] Troponin level elevated 03/29/2020 Defibrillator discharge 03/28/2020 Biventricular ICD (implantab le cardioverter-defibrillator) in place 10/28/2019 Cardiomyopathy 10/28/2019 Diabetes mellitus type 2, controlled, without co mplications 10/28/2019 Essential hypertension 10/28/2019 Other hyperlipidemia 10/28/2019 Hypothyroidism 10/28/2019 Sleep apnea 10/28/2019 VT (ventricular tachycardia) 09/28/2017 Chronic systolic congestive heart failure Immunizations Immunization Administration Dates Next Due Influenza, Unspecified 08/27/2019 Social History Tobacco Use Types Packs/Day Years Used Date Smoking Tobacco: Never Smokeless Tobacco: Never Tobacco Cessation:Counseling Given: Not Answered Alcohol Use Standard Drinks/Week Comments No 0 (1 standard drink = 0.6 oz pur e alcohol) Personal Safety Answer Date Recorded Getting School Help Needed Not on file 10/28 Comments No Sex and Gender Information Value Date Recorded Sex Assigned at Not on file Legal Sex Female 7:03 PM PLASTIC MOLDING OPERATOR Gender Identity Not on file Sexual Orientation Not on file Last Filed Vital Signs Vital Sign Reading Time Taken Comments Blood Pressure 120/81 09/05/2022 8:37 AM PLASTIC MOLDING OPERATOR Pulse 66 09/05/2022 8:37 AM PLASTIC MOLDING OPERATOR Temperature 36.4 C (97.5 F) 11/18/2021 2:14 PM PLASTIC MOLDING OPERATOR Respiratory Rate 25 11/18/2021 6:20 PM PLASTIC MOLDING OPERATOR Oxygen Saturation 100% 11/18/2021 6:20 PM PLASTIC MOLDING OPERATOR Inhaled Oxygen Concentration - - Weight 66 kg (145 lb 6.4 oz) 09/05/2022 8:37 AM PLASTIC MOLDING OPERATOR Height 154.9 cm (5' 1 ) 09/05/2022 8:37 AM PLASTIC MOLDING OPERATOR Body Mass Index 27.47 09/05/2022 8:37 AM PLASTIC MOLDING OPERATOR Plan of Treatment Not on file Medical Devices Implanted Type Area Final Rail Cutter Device Identifier Shelf Expiration Date Model / Serial / Lot [employer] [id number] Solia S 45cm Bipolar Active Fixation Lead Pacing Steroid Eluting - [id number] - [id number] Implanted:Qty: 1 on 09/22/2019 by Mk Alejandra MD at [facility] Lead [employer] [id number] 06/26/2021 [id number] / [id number] / Lead Icd Sentus Promri Left Ventricular Otw Quadripolar L-85/49 - [id number] - [id number] Implanted:Qty: 1 on 04/09/2018 by Mk Alejandra MD at [facility] [employer] 12/25/2019 [id number] / [id number] / [employer] [id number] Angio-Seal Vip Bondek-Plus 8fr .038in 70cm Hemostatic Latex Free - [id number] Implanted:Qty: 1 on 10/13/2018 by Mk Alejandra MD at [facility] [employer] 05/26/2019 [id number] / / [id number] Procedures Procedure Name Priority Date/Time Associated Diagnosis Comments EGFR STAT 11/18/2021 3:26 PM PLASTIC MOLDING OPERATOR LIPID PANEL Timed 03/28/2020 1:05 PM CDT COLONOSCOPY REPORT 07/01/2013 from Last 3 Months or Most Recently Relevant to Health Maintenance Results * eGFR (11/18/2021 3:26 PM PLASTIC MOLDING OPERATOR) eGFR 73 mL/min/1. 73 m2 MAT [facility] Comment: Interpretive Data Reference Interval Normal >/= 90 mL/min/1.73m2 Mildly decreased* 60 - 89 mL/min/1.73m2 Mildly to moderately decreased 45 - 59 mL/min/1.73m2 Moderately to severely decreased 30 - 44 mL/min/1.73m2 Severely decreased 15 - 29 mL/min/1.73m2 Kidney Failure < 15 mL/min/1.73m2 *Relative to young adult level Estimated glomerular filtration rate is determined by the 2020 CKD-EPI equation recommended by the National Kidney Foundation (A Unifying Approach to GFR Estimation: Recommendations of the NKF-ASK Task Force on Reassessing the Inclusion of Race in Diagnosing Kidney Disease, JASN 2020). The CKD-EPI equation should not be used for patients with unstable renal function and has not been validated in children and those over 70. Current interpretive data was last reviewed 2021. Blood 11/18/2021 3:26 PM PLASTIC MOLDING OPERATOR 11/18/2021 3:33 PM PLASTIC MOLDING OPERATOR us Felisha Porter MD LAB BLOOD ORDERABLES Final Resu lt MAT [facility] [id number] [place] [address] * Lipid panel (03/28/2020 1:05 PM CDT) Cholesterol 125 30 - 199 mg/dL MAT [facility] Comment: Interpretive Data Ages < or = 19 years Acceptable: <170 mg/dL Borderline high: 170-199 mg/dL High: >or= 200 mg/dL Ages > or = 20 years Desirable: <200 mg/dL Borderline high: 200-239 mg/dL High: >or= 240 mg/dL Literature References: 1. Expert Panel on Integrated Guidelines for Cardiovascular Health and Risk Reduction in Children and Adolescents. Pediatrics 2011;128:S213 2. NCEP Expert Panel. Circulation 2003;110:227 Current Interpretive Data was last revised on 2018. Triglycerides 108 <=149 mg/dL MAT Comment: Interpretive Data Ages < or = 9 years Acceptable: <75 mg/dL Borderline high: 75-99 mg/dL High: >or= 100 mg/dL Ages 10 to 20 years Acceptable: <90 mg/dL Borderline high: 90-129 mg/dL High: >or= 130 mg/dL Ages > or = 20 years Desirable: <150 mg/dL Borderline high: 150-199 mg/dL High: 200-499 mg/dL Very high: >or= 499 mg/dL Literature References: 1. Expert Panel on Integrated Guidelines for Cardiovascular Health and Risk Reduction in Children and Adolescents. Pediatrics 2011;128:S213 2. NCEP Expert Panel. Circulation 2004;110:227 Current Interpretive Data was last revised on 2018. HDL 50 >=40 mg/dL MAT [facility] Comment: Interpretive Data Ages < or = 19 years Acceptable: >45 mg/dL Borderline low: 40-45 mg/dL Low: <40 mg/dL Ages > or = 20 years Desirable: >or= 60 mg/dL Low: <40 mg/dL Literature References: 1. Expert Panel on Integrated Guidelines for Cardiovascular Health and Risk Reduction in Children and Adolescents. Pediatrics 2011;128:S213 2. NCEP Expert Panel. Circulation 2004;110:227 Current Interpretive Data was last revised on 2018. LDL, calculated 53 <=129 mg/dL MAT [facility] Comment: Interpretive Data Ages < or = 19 years Acceptable: <110 mg/dL Borderline high: 110-129 mg/dL High: >or= 130 mg/dL Ages > or = 20 years Optimal: <100 mg/dL Near optimal: 100-129 mg/dL Borderline high: 130-159 mg/dL High: >160 mg/dL Literature References: 1. Expert Panel on Integrated Guidelines for Cardiovascular Health and Risk Reduction in Children and Adolescents. Pediatrics 2011;128:S213 2. NCEP Expert Panel. Circulation 2004;110:227 Current Interpretive Data was last revised on 2018. Non-HDL Cholesterol 75 mg/dL MAT [facility] Comment: Interpretive Data Ages < or = 19 years Acceptable: <120 mg/dL Borderline high: 120-144 mg/dL High: >145 mg/dL Ages > or = 20 years When triglycerides are >200 mg/dL, Non-HDL cholesterol is a secondary target of therapy with treatment goals that are 30 mg/dL greater than the LDL cholesterol target. Literature References: 1. Expert Panel on Integrated Guidelines for Cardiovascular Health and Risk Reduction in Children and Adolescents. Pediatrics 2011;128:S213 2. NCEP Expert Panel. Circulation 2004;110:227 Current Interpretive Data was last revised on 2018. Chol/HDL ratio 2 MAT Blood specimen (specimen) 03/28/2020 1:05 PM CDT 03/28/2020 1:24 PM CDT Narrative MAT - 03/28/2020 2:40 PM CDT This lipid panel was automatically ordered due to a critical delta for Troponin- T. The dietary status of the patient at the collection time should be correlated with the lipid results. Elieser Mckeon MD LAB BLOOD [place] [id number] [address] Department of Laboratories [place] [id number] * COLONOSCOPY REPORT (07/01/2013) Anatomical Region Laterality Modality Other Narrative 07/01/2013 Ordered by an unspecified provider. [facility] Provider GI PROCEDURE ORDERABLES F inal Result from Last 3 Months or Most Recently Relevant to Health Maintenance Insurance MEDICARE AETNA SENIOR SUPPLEMENT MEDICARE AETNA SENIOR SUPPLEMENT MEDICARE AETNA Advance Directives For more information, please contact: [phone] * Full Code (Latest Code Status on File) Date Activated Date Inactivated Comments 03/28/2020 9:47 PM 03/29/2020 9:59 PM * Full Code Date Activated Date Inactivated Comments 09/22/2019 12:57 PM 09/23/2019 3:11 PM * Full Code Date Activated Date Inactivated Comments 04/09/2018 1:48 PM 04/10/2018 4:57 PM * Full Code Date Activated Date Inactivated Comments 04/09/2018 11:12 AM 04/09/2018 1:19 PM * Full Code Date Activated Date Inactivated Comments 09/28/2017 11:02 PM 10/01/2017 2:07 PM Care Teams Supersonic Engineer Relationship Specialty Start Date End Date Dante Collado MD [address] [facility] [address] [place] [address] PCP - General 09/10/17 [place] [id number] [place] [address] Consulting Physician Cardiology 10/01/17
--- OUTSIDE RECORDS SUMMARY | 2025-01-12 11:22 | XMS_ITS | Data Portability ---
Author Organization [facility], Main Office Address [address] [place] [address] Care Team Providers Care Gluer Name Role Phone BRODY COLLADO Primary Care Provider [phone] BRODY COLLADO Referring Provider Assessment Encounter Date Assessment Date Assessment LastModified by Organization Details LastModified Time 01/16/2023 01/16/2023 01/15/2023: Urine alb micro 36.5 A1C 6.0 B12/Folate: WNL TSH/FT4: WNL TG 185 Gluc 112, Glob 2.5 PLT 147 Not available 01/16/2023 12:46:00 04/24/2023 04/24/2023 01/15/2023: Urine alb micro 36.5 A1C 6.0 B12/Folate: WNL TSH/FT4: WNL TG 185 Gluc 112, Glob 2.5 PLT 147 04/23/2023: A1C 5.8 PLT 119 Gluc 103, BUN 24, GFR 63, AST 41 Not available 04/24/2023 14:14:52 06/03/2023 06/03/2023 This note is dictated and transcribed by [employer] Software. Train Brake Operator variances may occur. Despite proofreading, typographical errors may occur. [email or web address] Not available 06/03/2023 10:31:35 Plan of Treatment Reminders Order Date Submit Date Provider Last Modified By Organization Details Last Modified Time Details Appointments None recorded. Lab lipid panel, serum 2022 023 [email or web address] [facility] (Lab), [address] [place], [address], 4 13:54:50 CBC w/ auto diff [address] (Lab), [address] [place], [address], 4 13:54:50 TSH, serum or plasma [address] (Lab), [address] [place], [address], 4 13:54:50 T4, free, serum [address] (Lab), [address] [place], [address], 4 13:54:50 CMP, serum or plasma [address] (Lab), [address] [place], [address], 4 13:54:51 vitamin D, 25-hydroxy, total, serum [address] (Lab), [address] [place], [address], 4 17:14:48 glycohemogl obin, total, blood [address] (Lab), [address] [place], [address], 4 13:54:49 microalbumi n, urine [address] (Lab), [address] [place], [address], 4 13:54:50 lipid panel, serum 2022 023 [facility] (Lab), [address] [place], [address], 3 10:23:37 CBC w/ auto diff 2022 023 [facility] (Lab), [address] [place], [address], 3 10:29:24 TSH, serum or plasma 2022 023 [facility] (Lab), [address] [place], [address], 3 11:00:11 T4, free, serum 2022 023 [facility] (Lab), [address] [place], [address], 3 10:32:56 CMP, serum or plasma 2022 023 [facility] (Lab), [address] [place], [address], 3 10:23:48 glycohemogl obin, total, blood 2022 023 [facility] (Lab), [address] [place], [address], 3 12:21:03 microalbumi n, urine 2022 023 [facility] (Lab), [address] [place], [address], 3 10:27:[address] referral 2022 023 Not available 3 12:14:23 nephrologis t referral 2022 023 [email or web address] Deb Benavides MD, [address], [address], [place], [address], 4 17:05:18 hematologis t referral 2022 023 [email or web address] Willis MD, [address], [place], [address], 3 12:14:51 cardiologis t referral 2022 023 [email or web address], [address] [facility], [address], [place], [address], 3 12:16:17 hand surgeon referral 2022 023 [email or web address] Calderon MD, [address] [place], [address], 3 12:15:45 neurologist referral 2022 023 rio Hernandez MD, [address] [facility] , [address], [place], [address], 3 12:15:26 woodwind instruments inspector referral 2022 023 [email or web address] Massimo Porter DPM, [address] [facility], [address], [place], [address], 4 17:05:19 general surgeon referral 2022 023 [email or web address] Waddell MD, [address] [facility], [address], [place], [address], 3 12:16:47 neurologist referral 2022 023 rio Hernandez MD, 4 [facility] , [address], [place], [address], 3 11:01:11 nephrologis t referral 2022 023 rio Benavides MD, [address], [address], [place], [address], 3 17:44:[address] referral 2022 023 [email or web address] Not available 3 18:42:45 hematologis t referral 2022 023 [email or web address] Brandon Willis MD, [address], [place], [address], 3 11:00:29 woodwind instruments inspector referral 2022 023 [email or web address] Massimo Porter DPM, [address] [facility], [address], [place], [address], 3 17:43:46 hand surgeon referral 2022 023 [email or web address] Calderon MD, [address] [place], [address], 3 10:03:10 Procedures None recorded. Surgeries None recorded. Imaging MAMMO, screening, digital, bilateral 2022 023 [email or web address] [facility] (Radiology), [address] [place] [address], [address], 4 17:05:28 DEXA, axial skeleton 2022 023 [email or web address] [facility] (Radiology), [address] [place] [address], [address], 4 17:14:35 MAMMO, screening, digital, bilateral 2022 023 [email or web address]), [address] [place] [address], [address], 3 12:09:29 Medication Orders None recorded. Patient TargetsNo targets recorded. Patient Instructions Encounter Date Encounter Id Patient Instructions Last Modified By Organization Details Last Modified Time 01/16/2023 [id number] diabetic eye exam* Not availa ble 07/24/2023 10:21:58 04/24/2023 [id number] dementia rating scale-2* miguel 2 Not available 04/24/2023 15:20:27 alcohol misuse* miguel 2 Not available 04/24/2023 15:20:27 depression screening* miguel 2 Not available 04/24/2023 15:20:27 Timed Up and Go test (TUG)* miguel 2 Not available 04/24/2023 15:20:26 multi-dimensiona l health assessment questionnaire* miguel 2 Not available 04/24/2023 15:20:26 Personalized [facility] Plan and Screening Recommendations Advance Directives - Do you have one? No Advance Directives - Do we have your advance directive on file in your health record? Primary Prevention/Interven tion (prevents or decreases the chance of common diseases from occurring) Smoking Risk: Non Smoker Alcohol Misuse Screening: Negative Weight: Appropriate Overwei ght continue your current weight loss efforts try to lose 5% of your body weight try to lose 10% of your body weight Physical activity: Need more exercise/physical activity Nutrition: Good Average Fall Risk (screened today): Low Vaccines Pneumococcal: Ordered Recommended today Recommended today, but you have declined No further needed Influenza: Your next one in the fall of this year Chronic Disease Risks Stroke: Low Risk Intermediate Risk I have no recommendations Act jonathan diagnosis, Continue current treatment plan Heart Attack: Low risk Intermediate Risk I have no recommendations Act jonathan diagnosis, Continue current treatment plan Clogging of the Arteries: Low risk Intermediate Risk I have no recommendations Act jonathan diagnosis, Continue current treatment plan Diabetes: Low Risk Intermediate Risk Active diagnosis, Continue current treatment plan Secondary Prevention/Interven tion (detects treatable diseases before they may cause symptoms, disability, or ) Breast Cancer Screening with mammogram: Your next mammogram: Ordered Recommended today Cervical/Uterine/Ov tay Cancer Screening: No screening necessary Osteoporosis Screening: Your next DEXA in: Ordered Recomme nded today Date Screening Last Performed: Colon Cancer Screening: Colonoscopy Date Screening Last Performed: Eye Disease Screening: Dementia Risk: Low I have no recommendations Depression Screening: Negative Active diagnosis, Continue current treatment plan [email or web address] Not available 04/24/2023 14:37:41 Reason for Referral Cell Preparer Referral for O bstructive sleep apnea syndrome Referring Physician: Jessica Peña, Encounter Date: 01/16/2023 Rug Sizer 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 Referring Physician: Jessica Peña, Encounter Date: 01/16/2023 Loan Review Officer Referral for Type 2 diabetes mellitus without complication Referring Physician: Jessica Peña, Encounter Date: 01/16/2023 Referring Physician: Jessica Peña, Encounter Date: 01/16/2023 Neurologist Referral for Tra nsient cerebral ischemia Referring Physician: Jessica Peña, Encounter Date: 01/16/2023 Hand Surgeon Referral for Pa in of left wrist Referring Physician: Jessica Peña, Encounter Date: 01/16/2023 Cell Preparer Referral for O bstructive sleep apnea syndrome Referring Physician: Jessica Peña, Encounter Date: 04/24/2023 Rug Sizer 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 Referring Physician: Jessica Peña, Encounter Date: 04/24/2023 Loan Review Officer Referral for Type 2 diabetes mellitus without complication Referring Physician: Jessica Peña, Encounter Date: 04/24/2023 Referring Physician: Jessica Peña, Encounter Date: 04/24/2023 Neurologist Referral for Tra nsient cerebral ischemia Referring Physician: Jessica Peña, Encounter Date: 04/24/2023 Hand Surgeon Referral for Pa in of left wrist Referring Physician: Brody Collado Internal [facility], Encounter Date: 04/24/2023 Med Specialist Referral for Ne ar syncope Referring Physician: Brody Collado [facility], Encounter Date: 04/24/2023 General Surgeon Referral for Skin lesion Referring Physician: Brody Collado [facility], Encounter Date: 04/24/2023 Results Created Date Observation Date Name Description Value Unit Range Abnormal Flag Note LastModifiedBy Organization Detail LastModifiedTime 08/27/20 22 08/27/2022 FOLAT E, SERUM /PLAS MA folate 5.98 NG/mL 2.76-2 0.0 Not Available [facility] (Lab) [address] [place], [address], 08/27/2022 18:44:29 08/27/20 22 08/27/2022 VITAM IN B12 (MADDY DOMENICA ) vb12 476 pg/mL 239-93 1 Not Available [facility] (Lab) [address] [place], [address], 08/27/2022 18:44:26 08/27/20 22 08/27/2022 MICRO ALBUM IN RANDO M URINE microalbumin , urine <6.0 mg/L 0.0-16 .6 Not Available [facility] (Lab) [address] [place], [address], 08/27/2022 18:09:51 08/27/20 22 08/27/2022 HEMOG LOBIN A1C HA1C 5.5 % 4.0-6. 0 Diabe harman Scree roma Crite adi: <5.7% Consi stent with absen ce of diabe harman 5.7-6 .4% Consi stent with incre ased risk for diabe harman (pred iabet es) >OR=6 .5% Consi stent with diabe harman REFER ENCE: Diabe harman Care 2016, 39(Arnold ppl.1 ):s13 -s22 Not Available [facility] (Lab) [address] [place], [address], 08/27/2022 15:07:49 08/27/20 22 08/27/2022 TSH thyroid-stim ulating hormone 1.980 uIU/m L 0.465- 4.680 Not Available [facility] (Lab) [address] [place], [address], 08/27/2022 13:44:58 08/27/20 22 08/27/2022 T4 FREE free T4 1.19 NG/dL 0.78-2 .19 Not Available [facility] (Lab) [address] [place], [address], 08/27/2022 13:31:42 08/27/20 22 08/27/2022 COMPR EHENS JONATHAN METAB OLIC PANEL sodium 138 mmol/ L 137-14 5 Not Available [facility] (Lab) [address] [place], [address], 08/27/2022 13:22:36 08/27/20 22 08/27/2022 COMPR EHENS JONATHAN METAB OLIC PANEL potassium 4.4 mmol/ L 3.5-5. 1 Not Available [facility] (Lab) [address] [place], [address], 08/27/2022 13:22:36 08/27/20 22 08/27/2022 COMPR EHENS JONATHAN METAB OLIC PANEL chloride 104 mmol/ L 98-107 Not Available [facility] (Lab) [address] [place], [address], 08/27/2022 13:22:36 08/27/20 22 08/27/2022 COMPR EHENS JONATHAN METAB OLIC PANEL carbon dioxide 31 mmol/ L 22-30 high Not Available [facility] (Lab) [address] [place], [address], 08/27/2022 13:22:36 08/27/20 22 08/27/2022 COMPR EHENS JONATHAN METAB OLIC PANEL anion gap 7.4 mmol/ L 14-22 low Not Available [facility] (Lab) [address] [place], [address], 08/27/2022 13:22:36 08/27/20 22 08/27/2022 COMPR EHENS JONATHAN METAB OLIC PANEL glucose 93 mg/dL 70-99 Not Available [facility] (Lab) [address] [place], [address], 08/27/2022 13:22:36 08/27/20 22 08/27/2022 COMPR EHENS JONATHAN METAB OLIC PANEL BUN 17 mg/dL 8-19 Not Available [facility] (Lab) [address] [place], [address], 08/27/2022 13:22:36 08/27/20 22 08/27/2022 COMPR EHENS JONATHAN METAB OLIC PANEL creatinine 0.97 mg/dL 0.66-1 .25 Not Available [facility] (Lab) [address] [place], [address], 08/27/2022 13:22:36 08/27/20 22 08/27/2022 COMPR EHENS JONATHAN METAB OLIC PANEL GFR 57 Refer ence Range : [place] ge GFR Healt hy Adult : >60 mL/mi n/1.7 3 m2 Chron ic Kidne y Disea se: 15-60 mL/mi n/1.7 3 m2 Kidne y Failu re: <15/m L/min /1.73 m2 www.n iddk. nih.g ov The MDRD study equat ion has not been valid ated in child nini <18 years of age; pregn ant women ; the elder ly >85 years of age; or in some racia l or ethni c subgr oups, such as Hispa nics. Outsi de the valid ated katrin eters , estim ated GFR is less accur ate, requi ring clini yulissa judgm ent on a case- by-ca se basis . Clini yulissa inter preta tion for other races and ages must be made by the clini chuck. The MDRD study equat ion has not been valid ated for the evalu ation of serum creat inine relat ed to nutri judd l statu s or medic ation usage . For perso ns <18 years of age, a pedia tric GFR calcu lator is avail able on the [facility] websi te: https ://rigoberto w.kid ayla.o rg/pr ofess ional s/kdo qi/gf r_cal culat or Not Available [facility] (Lab) [address] [place], [address], 08/27/2022 13:22:36 08/27/20 22 08/27/2022 COMPR EHENS JONATHAN METAB OLIC PANEL alkaline phosphatase 63 U/L 38-126 Not Available [facility] (Lab) [address] [place], [address], 08/27/2022 13:22:36 08/27/20 22 08/27/2022 COMPR EHENS JONATHAN METAB OLIC PANEL alanine aminotransfe rase 5 U/L 0-35 Not Available [facility] (Lab) [address] [place], [address], 08/27/2022 13:22:36 08/27/20 22 08/27/2022 COMPR EHENS JONATHAN METAB OLIC PANEL aspartate aminotransfe rase 22 U/L 15-37 Not Available [facility] (Lab) [address] [place], [address], 08/27/2022 13:22:36 08/27/20 22 08/27/2022 COMPR EHENS JONATHAN METAB OLIC PANEL bilirubin, total 0.60 mg/dL 0.20-1 .30 Not Available [facility] (Lab) [address] [place], [address], 08/27/2022 13:22:36 08/27/20 22 08/27/2022 COMPR EHENS JONATHAN METAB OLIC PANEL calcium 9.8 mg/dL 8.4-10 .2 Not Available [facility] (Lab) [address] [place], [address], 08/27/2022 13:22:36 08/27/20 22 08/27/2022 COMPR EHENS JONATHAN METAB OLIC PANEL total protein 6.4 g/dL 6.3-8. 2 Not Available [facility] (Lab) [address] [place], [address], 08/27/2022 13:22:36 08/27/20 22 08/27/2022 COMPR EHENS JONATHAN METAB OLIC PANEL albumin 4.1 g/dL 3.0-4. 4 Not Available [facility] (Lab) [address] [place], [address], 08/27/2022 13:22:36 08/27/20 22 08/27/2022 COMPR EHENS JONATHAN METAB OLIC PANEL globulin 2.3 g/dL 2.6-4. 2 low Not Available [facility] (Lab) [address] [place], [address], 08/27/2022 13:22:36 08/27/20 22 08/27/2022 COMPR EHENS JONATHAN METAB OLIC PANEL A/G ratio 1.8 ratio 1.0-2. 0 Not Available [facility] (Lab) [address] [place], [address], 08/27/2022 13:22:36 08/27/20 22 08/27/2022 LIPID PANEL cholesterol 271 mg/dL 140-19 9 high NIH OSWALDO NSUS RECOM MENDA TION FOR PAWAN STERO L: ADULT CHILD LOW RISK: <200 <170 BORDE RLINE : <200- 239 ----- HIGH RISK: >240 >200 Not Available [facility] (Lab) [address] [place], [address], 08/27/2022 13:21:09 08/27/20 22 08/27/2022 LIPID PANEL triglyceride s 237 mg/dL 0-150 high NIH OSWALDO NSUS REPOR T RECOM MENDA TION FOR TRIGL YCERI ZORAIDA: ADULT CHILD LOW RISK: <150 ----- BODER LINE: 150-1 99 ----- HIGH RISK: >200 ----- Not Available [facility] (Lab) [address] [place], [address], 08/27/2022 13:21:09 08/27/20 22 08/27/2022 LIPID PANEL HDL cholesterol 55 mg/dL 40- Not Available [facility] (Lab) [address] [place], [address], 08/27/2022 13:21:09 08/27/20 22 08/27/2022 LIPID PANEL LDL cholesterol, calculated 169 mg/dL 0-130 high NIH OSWALDO NSUS REPOR T RECOM MENDA TIONS FOR LDL: ADULT CHILD LOW RISK <130 <110 (OPTI MAL LDL) <100 ----- JUNITO RLINE : 130-1 59 ----- HIGH RISK: >160 >130 A TRIGL YCERI DE RESUL T >400 INVAL IDATE S THE CALCU LATIO N FOR LDL FRACT IONAT ION - THE LDL RESUL T WILL NOT BE REPOR RUI. Not Available [facility] (Lab) [address] [place], [address], 08/27/2022 13:21:09 08/27/20 22 08/27/2022 CBC/C OMPLE TE BLD COUNT W/DIF F white blood cells 7.2 x10'3 /uL 4.2-10 .8 Not Available [facility] (Lab) [address] [place], [address], 08/27/2022 13:09:09 08/27/20 22 08/27/2022 CBC/C OMPLE TE BLD COUNT W/DIF F red blood cells 4.43 x10'6 /uL 3.80-5 .20 Not Available [facility] (Lab) [address] [place], [address], 08/27/2022 13:09:09 08/27/20 22 08/27/2022 CBC/C OMPLE TE BLD COUNT W/DIF F hemoglobin 13.8 g/dL 12.0-1 5.6 Not Available [facility] (Lab) [address] [place], [address], 08/27/2022 13:09:09 08/27/20 22 08/27/2022 CBC/C OMPLE TE BLD COUNT W/DIF F hematocrit 42.9 % 35.7-4 5.7 Not Available [facility] (Lab) [address] [place], [address], 08/27/2022 13:09:09 08/27/20 22 08/27/2022 CBC/C OMPLE TE BLD COUNT W/DIF F mean red cell volume 96.8 fL 82.0-9 9.0 Not Available [facility] (Lab) [address] [place], [address], 08/27/2022 13:09:09 08/27/20 22 08/27/2022 CBC/C OMPLE TE BLD COUNT W/DIF F mean red cell hemoglobin 31.2 pg 27.0-3 3.0 Not Available [facility] (Lab) [address] [place], [address], 08/27/2022 13:09:09 08/27/20 22 08/27/2022 CBC/C OMPLE TE BLD COUNT W/DIF F mean RBC HGB concentratio n 32.2 g/dL 31.0-3 6.0 Not Available [facility] (Lab) [address] [place], [address], 08/27/2022 13:09:09 08/27/20 22 08/27/2022 CBC/C OMPLE TE BLD COUNT W/DIF F red cell distribution width 14.7 % 11.8-1 5.5 Not Available [facility] (Lab) [address] [place], [address], 08/27/2022 13:09:09 08/27/20 22 08/27/2022 CBC/C OMPLE TE BLD COUNT W/DIF F platelets 151 x10'3 /uL 150-40 0 Not Available [facility] (Lab) [address] [place], [address], 08/27/2022 13:09:09 08/27/20 22 08/27/2022 CBC/C OMPLE TE BLD COUNT W/DIF F mean platelet volume 13.0 fL 9.0-12 .4 high Not Available [facility] (Lab) [address] [place], [address], 08/27/2022 13:09:09 08/27/20 22 08/27/2022 CBC/C OMPLE TE BLD COUNT W/DIF F neutrophils 56.4 % 39.0-7 2.0 Not Available [facility] (Lab) [address] [place], [address], 08/27/2022 13:09:09 08/27/20 22 08/27/2022 CBC/C OMPLE TE BLD COUNT W/DIF F lymphocytes 24.8 % 16.0-4 7.0 Not Available [facility] (Lab) [address] [place], [address], 08/27/2022 13:09:09 08/27/20 22 08/27/2022 CBC/C OMPLE TE BLD COUNT W/DIF F monocytes 12.6 % 5.0-12 .0 high Not Available [facility] (Lab) [address] [place], [address], 08/27/2022 13:09:09 08/27/20 22 08/27/2022 CBC/C OMPLE TE BLD COUNT W/DIF F eosinophils 4.3 % 1.0-7. 0 Not Available [facility] (Lab) [address] [place], [address], 08/27/2022 13:09:09 08/27/20 22 08/27/2022 CBC/C OMPLE TE BLD COUNT W/DIF F basophils 1.5 % 0.0-2. 0 Not Available [facility] (Lab) [address] [place], [address], 08/27/2022 13:09:09 08/27/20 22 08/27/2022 CBC/C OMPLE TE BLD COUNT W/DIF F immature granulocytes 0.4 % 0.00-0 .50 Not Available [facility] (Lab) [address] [place], [address], 08/27/2022 13:09:09 08/27/20 22 08/27/2022 CBC/C OMPLE TE BLD COUNT W/DIF F neutrophils, absolute count 4.07 x10'3 /uL 1.5-8. 0 Not Available [facility] (Lab) [address] [place], [address], 08/27/2022 13:09:09 08/27/20 22 08/27/2022 CBC/C OMPLE TE BLD COUNT W/DIF F lymphocytes, absolute count 1.79 x10'3 /uL 1.07-3 .43 Not Available [facility] (Lab) [address] [place], [address], 08/27/2022 13:09:09 08/27/20 22 08/27/2022 CBC/C OMPLE TE BLD COUNT W/DIF F monocytes, absolute count 0.91 x10'3 /uL 0.29-0 .99 Not Available [facility] (Lab) [address] [place], [address], 08/27/2022 13:09:09 08/27/20 22 08/27/2022 CBC/C OMPLE TE BLD COUNT W/DIF F eosinophils, absolute count 0.31 x10'3 /uL 0.02-0 .53 Not Available [facility] (Lab) [address] [place], [address], 08/27/2022 13:09:09 08/27/20 22 08/27/2022 CBC/C OMPLE TE BLD COUNT W/DIF F basophils, absolute count 0.11 x10'3 /uL 0.01-0 .08 high Not Available [facility] (Lab) [address] [place], [address], 08/27/2022 13:09:09 08/27/2008/27/2022 CBC/C OMPLE TE BLD COUNT W/DIF F immature granulocytes ,absolute 0.03 x10'3 /uL 0.00-0 .05 Not Available [facility] (Lab) [address] [place], [address], 08/27/2022 13:09:09 08/27/20 22 08/27/2022 CBC/C OMPLE TE BLD COUNT W/DIF F nucleated red blood cells 0.0 % -0 Not Available [facility] (Lab) [address] [place], [address], 08/27/2022 13:09:09 08/27/20 22 08/27/2022 CBC/C OMPLE TE BLD COUNT W/DIF F NRBC# 0.00 x10'3 /uL Not Available [facility] (Lab) [address] [place], [address], 08/27/2022 13:09:09 01/16/20 23 01/15/2023 CBC/C OMPLE TE BLD COUNT W/DIF F white blood cells 9.4 x10'3 /uL 4.2-10 .8 Not Available [facility] (Lab) [address] [place], [address], 01/15/2023 12:06:22 01/16/20 23 01/15/2023 CBC/C OMPLE TE BLD COUNT W/DIF F red blood cells 4.46 x10'6 /uL 3.80-5 .20 Not Available [facility] (Lab) [address] [place], [address], 01/15/2023 12:06:22 01/16/20 23 01/15/2023 CBC/C OMPLE TE BLD COUNT W/DIF F hemoglobin 13.7 g/dL 12.0-1 5.6 Not Available [facility] (Lab) [address] [place], [address], 01/15/2023 12:06:22 01/16/20 23 01/15/2023 CBC/C OMPLE TE BLD COUNT W/DIF F hematocrit 43.4 % 35.7-4 5.7 Not Available [facility] (Lab) [address] [place], [address], 01/15/2023 12:06:22 01/16/20 23 01/15/2023 CBC/C OMPLE TE BLD COUNT W/DIF F mean red cell volume 97.3 fL 82.0-9 9.0 Not Available [facility] (Lab) [address] [place], [address], 01/15/2023 12:06:22 01/16/20 23 01/15/2023 CBC/C OMPLE TE BLD COUNT W/DIF F mean red cell hemoglobin 30.7 pg 27.0-3 3.0 Not Available [facility] (Lab) [address] [place], [address], 01/15/2023 12:06:22 01/16/20 23 01/15/2023 CBC/C OMPLE TE BLD COUNT W/DIF F mean RBC HGB concentratio n 31.6 g/dL 31.0-3 6.0 Not Available [facility] (Lab) [address] [place], [address], 01/15/2023 12:06:22 01/16/20 23 01/15/2023 CBC/C OMPLE TE BLD COUNT W/DIF F red cell distribution width 13.8 % 11.8-1 5.5 Not Available [facility] (Lab) [address] [place], [address], 01/15/2023 12:06:22 01/16/20 23 01/15/2023 CBC/C OMPLE TE BLD COUNT W/DIF F platelets 147 x10'3 /uL 150-40 0 low Not Available [facility] (Lab) [address] [place], [address], 01/15/2023 12:06:22 01/16/20 23 01/15/2023 CBC/C OMPLE TE BLD COUNT W/DIF F mean platelet volume 12.2 fL 9.0-12 .4 Not Available [facility] (Lab) [address] [place], [address], 01/15/2023 12:06:22 01/16/20 23 01/15/2023 CBC/C OMPLE TE BLD COUNT W/DIF F neutrophils 65.6 % 39.0-7 2.0 Not Available [facility] (Lab) [address] [place], [address], 01/15/2023 12:06:22 01/16/20 23 01/15/2023 CBC/C OMPLE TE BLD COUNT W/DIF F lymphocytes 17.1 % 16.0-4 7.0 Not Available [facility] (Lab) [address] [place], [address], 01/15/2023 12:06:22 01/16/20 23 01/15/2023 CBC/C OMPLE TE BLD COUNT W/DIF F monocytes 12.3 % 5.0-12 .0 high Not Available [facility] (Lab) [address] [place], [address], 01/15/2023 12:06:22 01/16/20 23 01/15/2023 CBC/C OMPLE TE BLD COUNT W/DIF F eosinophils 3.8 % 1.0-7. 0 Not Available [facility] (Lab) [address] [place], [address], 01/15/2023 12:06:22 01/16/20 23 01/15/2023 CBC/C OMPLE TE BLD COUNT W/DIF F basophils 0.9 % 0.0-2. 0 Not Available [facility] (Lab) [address] [place], [address], 01/15/2023 12:06:22 01/16/20 23 01/15/2023 CBC/C OMPLE TE BLD COUNT W/DIF F immature granulocytes 0.3 % 0.00-0 .50 Not Available [facility] (Lab) [address] [place], [address], 01/15/2023 12:06:22 01/16/20 23 01/15/2023 CBC/C OMPLE TE BLD COUNT W/DIF F neutrophils, absolute count 6.15 x10'3 /uL 1.5-8. 0 Not Available [facility] (Lab) [address] [place], [address], 01/15/2023 12:06:22 01/16/20 23 01/15/2023 CBC/C OMPLE TE BLD COUNT W/DIF F lymphocytes, absolute count 1.60 x10'3 /uL 1.07-3 .43 Not Available [facility] (Lab) [address], [place], [address], 01/15/2023 12:06:22 01/16/20 23 01/15/2023 CBC/C OMPLE TE BLD COUNT W/DIF F monocytes, absolute count 1.15 x10'3 /uL 0.29-0 .99 high Not Available [facility] (Lab) [address] [place], [address], 01/15/2023 12:06:22 01/16/20 23 01/15/2023 CBC/C OMPLE TE BLD COUNT W/DIF F eosinophils, absolute count 0.36 x10'3 /uL 0.02-0 .53 Not Available [facility] (Lab) [address] [place], [address], 01/15/2023 12:06:22 01/16/20 23 01/15/2023 CBC/C OMPLE TE BLD COUNT W/DIF F basophils, absolute count 0.08 x10'3 /uL 0.01-0 .08 Not Available [facility] (Lab) [address] [place], [address], 01/15/2023 12:06:22 01/16/20 23 01/15/2023 CBC/C OMPLE TE BLD COUNT W/DIF F immature granulocytes ,absolute 0.03 x10'3 /uL 0.00-0 .05 Not Available [facility] (Lab) [address] [place], [address], 01/15/2023 12:06:22 01/16/20 23 01/15/2023 CBC/C OMPLE TE BLD COUNT W/DIF F nucleated red blood cells 0.0 % -0 Not Available [facility] (Lab) [address] [place], [address], 01/15/2023 12:06:22 01/16/20 23 01/15/2023 CBC/C OMPLE TE BLD COUNT W/DIF F NRBC# 0.00 x10'3 /uL Not Available [facility] (Lab) [address] [place], [address], 01/15/2023 12:06:22 01/16/20 23 01/15/2023 COMPR EHENS JONATHAN METAB OLIC PANEL sodium 140 mmol/ L 137-14 5 Not Available [facility] (Lab) [address] [place], [address], 01/15/2023 12:24:31 01/16/20 23 01/15/2023 COMPR EHENS JONATHAN METAB OLIC PANEL potassium 4.3 mmol/ L 3.5-5. 1 Not Available [facility] (Lab) [address] [place], [address], 01/15/2023 12:24:31 01/16/20 23 01/15/2023 COMPR EHENS JONATHAN METAB OLIC PANEL chloride 106 mmol/ L 98-107 Not Available [facility] (Lab) [address] [place], [address], 01/15/2023 12:24:31 01/16/20 23 01/15/2023 COMPR EHENS JONATHAN METAB OLIC PANEL carbon dioxide 27 mmol/ L 22-30 Not Available [facility] (Lab) [address] [place], [address], 01/15/2023 12:24:31 01/16/20 23 01/15/2023 COMPR EHENS JONATHAN METAB OLIC PANEL anion gap 11.3 mmol/ L 14-22 low Not Available [facility] (Lab) [address] [place], [address], 01/15/2023 12:24:31 01/16/20 23 01/15/2023 COMPR EHENS JONATHAN METAB OLIC PANEL glucose 112 mg/dL 70-99 high Not Available [facility] (Lab) [address] [place], [address], 01/15/2023 12:24:31 01/16/20 23 01/15/2023 COMPR EHENS JONATHAN METAB OLIC PANEL BUN 17 mg/dL 8-19 Not Available [facility] (Lab) [address] [place], [address], 01/15/2023 12:24:31 01/16/20 23 01/15/2023 COMPR EHENS JONATHAN METAB OLIC PANEL creatinine 0.99 mg/dL 0.66-1 .25 Not Available [facility] (Lab) [address] [place], [address], 01/15/2023 12:24:31 01/16/20 23 01/15/2023 COMPR EHENS JONATHAN METAB OLIC PANEL GFR 55 Refer ence Range : [place] ge GFR Healt hy Adult : >60 mL/mi n/1.7 3 m2 Chron ic Kidne y Disea se: 15-60 mL/mi n/1.7 3 m2 Kidne y Failu re: <15/m L/min /1.73 m2 www.n iddk. nih.g ov The MDRD study equat ion has not been valid ated in child nini <18 years of age; pregn ant women ; the elder ly >85 years of age; or in some racia l or ethni c subgr oups, such as Hispa nics. Outsi de the valid ated katrin eters , estim ated GFR is less accur ate, requi ring clini yulissa judgm ent on a case- by-ca se basis . Clini yulissa inter preta tion for other races and ages must be made by the clini chuck. The MDRD study equat ion has not been valid ated for the evalu ation of serum creat inine relat ed to nutri judd l statu s or medic ation usage . For perso ns <18 years of age, a pedia tric GFR calcu lator is avail able on the [facility] websi te: https ://rigoberto w.kid ayla.o rg/pr ofess ional s/kdo qi/gf r_cal culat or Not Available [facility] (Lab) [address] [place], [address], 01/15/2023 12:24:31 01/16/20 23 01/15/2023 COMPR EHENS JONATHAN METAB OLIC PANEL alkaline phosphatase 72 U/L 38-126 Not Available [facility] (Lab) [address] [place], [address], 01/15/2023 12:24:31 01/16/20 23 01/15/2023 COMPR EHENS JONATHAN METAB OLIC PANEL alanine aminotransfe rase 12 U/L 0-35 Not Available [facility] (Lab) [address] [place], [address], 01/15/2023 12:24:31 01/16/20 23 01/15/2023 COMPR EHENS JONATHAN METAB OLIC PANEL aspartate aminotransfe rase 31 U/L 15-37 Not Available [facility] (Lab) [address] [place], [address], 01/15/2023 12:24:31 01/16/20 23 01/15/2023 COMPR EHENS JONATHAN METAB OLIC PANEL bilirubin, total 0.90 mg/dL 0.20-1 .30 Not Available [facility] (Lab) [address] [place], [address], 01/15/2023 12:24:31 01/16/20 23 01/15/2023 COMPR EHENS JONATHAN METAB OLIC PANEL calcium 9.8 mg/dL 8.4-10 .2 Not Available [facility] (Lab) [address] [place], [address], 01/15/2023 12:24:31 01/16/20 23 01/15/2023 COMPR EHENS JONATHAN METAB OLIC PANEL total protein 6.8 g/dL 6.3-8. 2 Not Available [facility] (Lab) [address] [place], [address], 01/15/2023 12:24:31 01/16/20 23 01/15/2023 COMPR EHENS JONATHAN METAB OLIC PANEL albumin 4.3 g/dL 3.0-4. 4 Not Available [facility] (Lab) [address] [place], [address], 01/15/2023 12:24:31 01/16/20 23 01/15/2023 COMPR EHENS JONATHAN METAB OLIC PANEL globulin 2.5 g/dL 2.6-4. 2 low Not Available [facility] (Lab) [address] [place], [address], 01/15/2023 12:24:31 01/16/20 23 01/15/2023 COMPR EHENS JONATHAN METAB OLIC PANEL A/G ratio 1.7 ratio 1.0-2. 0 Not Available [facility] (Lab) [address] [place], [address], 01/15/2023 12:24:31 01/16/20 23 01/15/2023 LIPID PANEL cholesterol 127 mg/dL 140-19 9 low NIH OSWALDO NSUS RECOM MENDA TION FOR PAWAN STERO L: ADULT CHILD LOW RISK: <200 <170 BORDE RLINE : <200- 239 ----- HIGH RISK: >240 >200 Not Available [facility] (Lab) [address] [place], [address], 01/15/2023 12:24:49 01/16/2001/15/2023 LIPID PANEL triglyceride s 185 mg/dL 0-150 high NIH OSWALDO NSUS REPOR T RECOM MENDA TION FOR TRIGL YCERI ZORAIDA: ADULT CHILD LOW RISK: <150 ----- BODER LINE: 150-1 99 ----- HIGH RISK: >200 ----- Not Available [facility] (Lab) [address] [place], [address], 01/15/2023 12:24:49 01/16/2001/15/2023 LIPID PANEL HDL cholesterol 57 mg/dL 40- Not Available [facility] (Lab) [address] [place], [address], 01/15/2023 12:24:49 01/16/20 23 01/15/2023 LIPID PANEL LDL cholesterol, calculated 33 mg/dL 0-130 NIH OSWALDO NSUS REPOR T RECOM MENDA TIONS FOR LDL: ADULT CHILD LOW RISK <130 <110 (OPTI MAL LDL) <100 ----- BORDE RLINE : 130-1 59 ----- HIGH RISK: >160 >130 A TRIGL YCERI DE RESUL T >400 INVAL IDATE S THE CALCU LATIO N FOR LDL FRACT IONAT ION - THE LDL RESUL T WILL NOT BE REPOR RUI. Not Available [facility] (Lab) [address] [place], [address], 01/15/2023 12:24:49 01/16/20 23 01/15/2023 T4 FREE free T4 1.29 NG/dL 0.78-2 .19 Not Available [facility] (Lab) [address] [place], [address], 01/15/2023 12:31:42 01/16/20 23 01/15/2023 TSH thyroid-stim ulating hormone 0.677 uIU/m L 0.465- 4.680 Not Available [facility] (Lab) [address] [place], [address], 01/15/2023 12:39:04 01/16/20 23 01/15/2023 HEMOG LOBIN A1C HA1C 6.0 % 4.0-6. 0 Diabe harman Scree roma Crite adi: <5.7% Consi stent with absen ce of diabe harman 5.7-6 .4% Consi stent with incre ased risk for diabe harman (pred iabet es) >OR=6 .5% Consi stent with diabe harman REFER ENCE: Diabe harman Care 2016, 39(Arnold ppl.1 ):s13 -s22 Not Available [facility] (Lab) [address] [place], [address], 01/15/2023 13:11:47 01/16/20 23 01/15/2023 VITAM IN B12 (MADDY DOMENICA ) vb12 677 pg/mL 239-93 1 Not Available [facility] (Lab) [address] [place], [address], 01/15/2023 18:31:01 01/16/20 23 01/15/2023 FOLAT E, SERUM /PLAS MA folate 5.65 NG/mL 2.76-2 0.0 Not Available [facility] (Lab) [address] [place], [address], 01/15/2023 18:31:05 01/16/20 23 01/15/2023 MICRO ALBUM IN RANDO M URINE microalbumin , urine 36.5 mg/L 0.0-16 .6 high Not Available [facility] (Lab) [address] [place], [address], 01/15/2023 18:38:15 04/23/20 23 04/23/2023 LIPID PANEL cholesterol 123 mg/dL 140-19 9 low NIH OSWALDO NSUS RECOM MENDA TION FOR PAWAN STERO L: ADULT CHILD LOW RISK: <200 <170 BORDE RLINE : <200- 239 ----- HIGH RISK: >240 >200 Not Available [facility] (Lab) [address] [place], [address], 04/23/2023 10:23:37 04/23/20 23 04/23/2023 LIPID PANEL triglyceride s 138 mg/dL 0-150 NIH OSWALDO NSUS REPOR T RECOM MENDA TION FOR TRIGL YCERI ZORAIDA: ADULT CHILD LOW RISK: <150 ----- BODER LINE: 150-1 99 ----- HIGH RISK: >200 ----- Not Available [facility] (Lab) [address] [place], [address], 04/23/2023 10:23:37 04/23/20 23 04/23/2023 LIPID PANEL HDL cholesterol 52 mg/dL 40- Not Available [facility] (Lab) [address] [place], [address], 04/23/2023 10:23:37 04/23/20 23 04/23/2023 LIPID PANEL LDL cholesterol, calculated 43 mg/dL 0-130 NIH OSWALDO NSUS REPOR T RECOM MENDA TIONS FOR LDL: ADULT CHILD LOW RISK <130 <110 (OPTI MAL LDL) <100 ----- BORDE RLINE : 130-1 59 ----- HIGH RISK: >160 >130 A TRIGL YCERI DE RESUL T >400 INVAL IDATE S THE CALCU LATIO N FOR LDL FRACT IONAT ION - THE LDL RESUL T WILL NOT BE REPOR RUI. Not Available [facility] (Lab) [address] [place], [address], 04/23/2023 10:23:37 04/23/20 23 04/23/2023 COMPR EHENS JONATHAN METAB OLIC PANEL sodium 141 mmol/ L 137-14 5 Not Available [facility] (Lab) [address] [place], [address], 04/23/2023 10:23:48 04/23/20 23 04/23/2023 COMPR EHENS JONATHAN METAB OLIC PANEL potassium 4.5 mmol/ L 3.5-5. 1 Not Available [facility] (Lab) [address] [place], [address], 04/23/2023 10:23:48 04/23/20 23 04/23/2023 COMPR EHENS JONATHAN METAB OLIC PANEL chloride 104 mmol/ L 98-107 Not Available [facility] (Lab) [address] [place], [address], 04/23/2023 10:23:48 04/23/20 23 04/23/2023 COMPR EHENS JONATHAN METAB OLIC PANEL carbon dioxide 30 mmol/ L 22-30 Not Available [facility] (Lab) [address] [place], [address], 04/23/2023 10:23:48 04/23/20 23 04/23/2023 COMPR EHENS JONATHAN METAB OLIC PANEL anion gap 11.5 mmol/ L 14-22 low Not Available [facility] (Lab) [address] [place], [address], 04/23/2023 10:23:48 04/23/20 23 04/23/2023 COMPR EHENS JONATHAN METAB OLIC PANEL glucose 103 mg/dL 70-99 high Not Available [facility] (Lab) [address] [place], [address], 04/23/2023 10:23:48 04/23/20 23 04/23/2023 COMPR EHENS JONATHAN METAB OLIC PANEL BUN 24 mg/dL 8-19 high Not Available [facility] (Lab) [address] [place], [address], 04/23/2023 10:23:48 04/23/20 23 04/23/2023 COMPR EHENS JONATHAN METAB OLIC PANEL creatinine 1.05 mg/dL 0.66-1 .25 Not Available [facility] (Lab) [address] [place], [address], 04/23/2023 10:23:48 04/23/20 23 04/23/2023 COMPR EHENS JONATHAN METAB OLIC PANEL GFR 52 Refer ence Range : [place] ge GFR Healt hy Adult : >60 mL/mi n/1.7 3 m2 Chron ic Kidne y Disea se: 15-60 mL/mi n/1.7 3 m2 Kidne y Failu re: <15/m L/min /1.73 m2 www.n iddk. nih.g ov The MDRD study equat ion has not been valid ated in child nini <18 years of age; pregn ant women ; the elder ly >85 years of age; or in some racia l or ethni c subgr oups, such as Hispa nics. Outsi de the valid ated katrin eters , estim ated GFR is less accur ate, requi ring clini yulissa judgm ent on a case- by-ca se basis . Clini yulissa inter preta tion for other races and ages must be made by the clini chuck. The MDRD study equat ion has not been valid ated for the evalu ation of serum creat inine relat ed to nutri judd l statu s or medic ation usage . For perso ns <18 years of age, a pedia tric GFR calcu lator is avail able on the [facility] websi te: https ://ww w.kid ayla.o rg/pr ofess ional s/kdo qi/gf r_cal culat or Not Available [facility] (Lab) [address] [place], [address], 04/23/2023 10:23:48 04/23/20 23 04/23/2023 COMPR EHENS JONATHAN METAB OLIC PANEL alkaline phosphatase 63 U/L 38-126 Not Available [facility] (Lab) [address] [place], [address], 04/23/2023 10:23:48 04/23/20 23 04/23/2023 COMPR EHENS JONATHAN METAB OLIC PANEL alanine aminotransfe rase 27 U/L 0-35 Not Available [facility] (Lab) [address] [place], [address], 04/23/2023 10:23:48 04/23/20 23 04/23/2023 COMPR EHENS JONATHAN METAB OLIC PANEL aspartate aminotransfe rase 41 U/L 15-37 high Not Available [facility] (Lab) [address] [place], [address], 04/23/2023 10:23:48 04/23/20 23 04/23/2023 COMPR EHENS JONATHAN METAB OLIC PANEL bilirubin, total 0.40 mg/dL 0.20-1 .30 Not Available [facility] (Lab) [address] [place], [address], 04/23/2023 10:23:48 04/23/20 23 04/23/2023 COMPR EHENS JONATHAN METAB OLIC PANEL calcium 9.1 mg/dL 8.4-10 .2 Not Available [facility] (Lab) [address] [place], [address], 04/23/2023 10:23:48 04/23/20 23 04/23/2023 COMPR EHENS JONATHAN METAB OLIC PANEL total protein 6.3 g/dL 6.3-8. 2 Not Available [facility] (Lab) [address] [place], [address], 04/23/2023 10:23:48 04/23/20 23 04/23/2023 COMPR EHENS JONATHAN METAB OLIC PANEL albumin 3.8 g/dL 3.0-4. 4 Not Available [facility] (Lab) [address] [place], [address], 04/23/2023 10:23:48 04/23/20 23 04/23/2023 COMPR EHENS JONATHAN METAB OLIC PANEL globulin 2.5 g/dL 2.6-4. 2 low Not Available [facility] (Lab) [address] [place], [address], 04/23/2023 10:23:48 04/23/20 23 04/23/2023 COMPR EHENS JONATHAN METAB OLIC PANEL A/G ratio 1.5 ratio 1.0-2. 0 Not Available [facility] (Lab) [address] [place], [address], 04/23/2023 10:23:48 04/23/20 23 04/23/2023 MICRO ALBUM IN RANDO M URINE microalbumin , urine <6.0 mg/L 0.0-16 .6 Not Available [facility] (Lab) [address] [place], [address], 04/23/2023 10:27:21 04/23/20 23 04/23/2023 CBC/C OMPLE TE BLD COUNT W/DIF F white blood cells 7.2 x10'3 /uL 4.2-10 .8 Not Available [facility] (Lab) [address] [place], [address], 04/23/2023 10:29:24 04/23/20 23 04/23/2023 CBC/C OMPLE TE BLD COUNT W/DIF F red blood cells 4.20 x10'6 /uL 3.80-5 .20 Not Available [facility] (Lab) [address] [place], [address], 04/23/2023 10:29:24 04/23/20 23 04/23/2023 CBC/C OMPLE TE BLD COUNT W/DIF F hemoglobin 12.8 g/dL 12.0-1 5.6 Not Available [facility] (Lab) [address] [place], [address], 04/23/2023 10:29:24 04/23/20 23 04/23/2023 CBC/C OMPLE TE BLD COUNT W/DIF F hematocrit 39.9 % 35.7-4 5.7 Not Available [facility] (Lab) [address] [place], [address], 04/23/2023 10:29:24 04/23/20 23 04/23/2023 CBC/C OMPLE TE BLD COUNT W/DIF F mean red cell volume 95.0 fL 82.0-9 9.0 Not Available [facility] (Lab) [address] [place], [address], 04/23/2023 10:29:24 04/23/20 23 04/23/2023 CBC/C OMPLE TE BLD COUNT W/DIF F mean red cell hemoglobin 30.5 pg 27.0-3 3.0 Not Available [facility] (Lab) [address] [place], [address], 04/23/2023 10:29:24 04/23/20 23 04/23/2023 CBC/C OMPLE TE BLD COUNT W/DIF F mean RBC HGB concentratio n 32.1 g/dL 31.0-3 6.0 Not Available [facility] (Lab) [address] [place], [address], 04/23/2023 10:29:24 04/23/20 23 04/23/2023 CBC/C OMPLE TE BLD COUNT W/DIF F red cell distribution width 13.0 % 11.8-1 5.5 Not Available [facility] (Lab) [address] [place], [address], 04/23/2023 10:29:24 04/23/20 23 04/23/2023 CBC/C OMPLE TE BLD COUNT W/DIF F platelets 119 x10'3 /uL 150-40 0 low Not Available [facility] (Lab) [address] [place], [address], 04/23/2023 10:29:24 04/23/20 23 04/23/2023 CBC/C OMPLE TE BLD COUNT W/DIF F mean platelet volume 12.9 fL 9.0-12 .4 high Not Available [facility] (Lab) [address] [place], [address], 04/23/2023 10:29:24 04/23/20 23 04/23/2023 CBC/C OMPLE TE BLD COUNT W/DIF F neutrophils 49.0 % 39.0-7 2.0 Not Available [facility] (Lab) [address] [place], [address], 04/23/2023 10:29:24 04/23/20 23 04/23/2023 CBC/C OMPLE TE BLD COUNT W/DIF F lymphocytes 28.2 % 16.0-4 7.0 Not Available [facility] (Lab) [address] [place], [address], 04/23/2023 10:29:24 06/28/04/23/2023 CBC/C OMPLE TE BLD COUNT W/DIF F monocytes 15.8 % 5.0-12 .0 high Not Available [facility] (Lab) [address] [place], [address], 04/23/2023 10:29:24 04/23/20 23 04/23/2023 CBC/C OMPLE TE BLD COUNT W/DIF F eosinophils 5.7 % 1.0-7. 0 Not Available [facility] (Lab) [address] [place], [address], 04/23/2023 10:29:24 04/23/2004/23/2023 CBC/C OMPLE TE BLD COUNT W/DIF F basophils 1.0 % 0.0-2. 0 Not Available [facility] (Lab) [address] [place], [address], 04/23/2023 10:29:24 04/23/20 23 04/23/2023 CBC/C OMPLE TE BLD COUNT W/DIF F immature granulocytes 0.3 % 0.00-0 .50 Not Available [facility] (Lab) [address] [place], [address], 04/23/2023 10:29:24 04/23/20 23 04/23/2023 CBC/C OMPLE TE BLD COUNT W/DIF F neutrophils, absolute count 3.55 x10'3 /uL 1.5-8. 0 Not Available [facility] (Lab) [address] [place], [address], 04/23/2023 10:29:24 04/23/20 23 04/23/2023 CBC/C OMPLE TE BLD COUNT W/DIF F lymphocytes, absolute count 2.04 x10'3 /uL 1.07-3 .43 Not Available [facility] (Lab) [address] [place], [address], 04/23/2023 10:29:24 04/23/20 23 04/23/2023 CBC/C OMPLE TE BLD COUNT W/DIF F monocytes, absolute count 1.14 x10'3 /uL 0.29-0 .99 high Not Available [facility] (Lab) [address] [place], [address], 04/23/2023 10:29:24 04/23/20 23 04/23/2023 CBC/C OMPLE TE BLD COUNT W/DIF F eosinophils, absolute count 0.41 x10'3 /uL 0.02-0 .53 Not Available [facility] (Lab) [address] [place], [address], 04/23/2023 10:29:24 04/23/20 23 04/23/2023 CBC/C OMPLE TE BLD COUNT W/DIF F basophils, absolute count 0.07 x10'3 /uL 0.01-0 .08 Not Available [facility] (Lab) [address] [place], [address], 04/23/2023 10:29:24 04/23/20 23 04/23/2023 CBC/C OMPLE TE BLD COUNT W/DIF F immature granulocytes ,absolute 0.02 x10'3 /uL 0.00-0 .05 Not Available [facility] (Lab) [address] [place], [address], 04/23/2023 10:29:24 04/23/20 23 04/23/2023 CBC/C OMPLE TE BLD COUNT W/DIF F nucleated red blood cells 0.0 % -0 Not Available [facility] (Lab) [address] [place], [address], 04/23/2023 10:29:24 04/23/20 23 04/23/2023 CBC/C OMPLE TE BLD COUNT W/DIF F NRBC# 0.00 x10'3 /uL Not Available [facility] (Lab) [address] [place], [address], 04/23/2023 10:29:24 04/23/20 23 04/23/2023 T4 FREE free T4 1.17 NG/dL 0.78-2 .19 Not Available [facility] (Lab) [address] [place], [address], 04/23/2023 10:32:56 04/23/20 23 04/23/2023 TSH thyroid-stim ulating hormone 0.634 uIU/m L 0.465- 4.680 Not Available [facility] (Lab) [address] [place], [address], 04/23/2023 11:00:11 04/23/20 23 04/23/2023 HEMOG LOBIN A1C HA1C 5.8 % 4.0-6. 0 Diabe harman Scree roma Crite adi: <5.7% Consi stent with absen ce of diabe harman 5.7-6 .4% Consi stent with incre ased risk for diabe harman (pred iabet es) >OR=6 .5% Consi stent with diabe harman REFER ENCE: Diabe harman Care 2016, 39(Arnold ppl.1 ):s13 -s22 Not Available [facility] (Lab) [address] [place], [address], 04/23/2023 12:21:03 09/23/20 22 09/23/2022 CT, abdom en + pelvi s, w/ contr ast No observ ation record ed. [id number] [facility] (Radiology) [address] [place], [address], 12/25/2022 05:07:19 09/23/20 22 09/23/2022 CT, abdom en + pelvi s, w/ contr ast [facility] [address] [place] [address] Patien t Name: ARUNA PANTOJA Access ion #: [id number] Sex: F : 1949 0 Locati on: [facility] Attend ing Physic paras: LIBIA BROWN Orderi ng Physic paras: ILEANA LIBIA DODD Exam Date: 2021 8:40 AM Exam Name: CT ABDOME N PELVIS W Admitt ing Diagno sis(es ): RADIOL OGY REPORT - FINAL EXAM: CT ABDOME N PELVIS W HISTOR Y: abdomi nal discom fort COMPAR SHARIF: 2018 TECHNI QUE: The abdome n and pelvis are evalua rui with intrav enous contra st. Axial images are recons tructe d in the correia l, sagitt al, and axial planes and are review ed with medias tinal lung window s settin gs. This CT exam was perfor med using one or more of the follow ing dose reduct ion techni ques: Automa rui exposu re contro l, adjust ment of the mA and/or kV accord ing to patien t size, or use of iterat jonathan recons tructi on techni que. Dose: 100 ML Isovue 370 intrav enous Page 1 of 4 [facility] t Name: ARUNA PANTOJA Access ion #: [id number] Sex: F : 1949 0 Exam Date: 2021 8:40 AM Exam Name: CT ABDOME N PELVIS W Admitt ing Diagno sis(es ): Oral contra st:900 mL 2% weight per volume barium PO FINDIN GS: Lower chest: Bilate ral calcif ied granul omatou s change s. CT ABDOME N: Thicke dixie mucosa of the GE juncti on at the site of the lap band, nonspe cific graph: Mild nodula r appear ance of the liver correl ate for cirrho sis. Gallbl adder and biliar y system : No acute proces s Spleen : Normal size Pancre as: No acute proces s Adrena l glands : No mass bilate rally Kidney s and ureter s: No acute proces s Append ix: No eviden ce of append icitis Stomac h and bowel: Modera te volume of stool throug hout the large colon. Lap band proced ure noted. There is thicke dixie mucosa at the site of the lap band nonspe cific repres enting a change sugges t direct visual izatio n. There is also thicke dixie mucosa at the gastri c antrum and pyloru s recomm end direct visual izatio n. Perito brooke cavity : No acute proces s Page 2 of 4 [facility] Saw t Name: ARUNA PANTOJA Access ion #: [id number] Sex: F : 1949 0 Exam Date: 2021 8:40 AM Exam Name: CT ABDOME N PELVIS W Admitt ing Diagno sis(es ): Lymph nodes: No signif icant lympha denopa thy Vascul ature: No aneury sm Osseou s struct ures: Multil evel degene rative change s, no acute proces s Extra abdomi nal soft tissue s: No acute proces s CT PELVIS : Reprod uctive : Hyster ectomy residu als Rectos igmoid : Resect ion residu als of the rectos igmoid re-michael ntifie d. Bladde r and distal ureter s: Decomp ressed bladde r, no hydrou reter bilate rally Extra pelvic soft tissue s: Small extra pelvic lymph nodes. IMPRES LISSETTE: 1. Thicke dixie mucosa at the site of the lap band, correl ate for gastri tis or other pathol ogy direct visual izatio n recomm ended. 2. Thicke dixie mucosa at the pyloru s and gastri c antrum , also recomm end direct visual izatio n of this area. 3. Other findin gs descri bed above, see above. Create d and electr onical ly signed by: Page 3 of 4 [facility] Saw t Name: ARUNA PANTOJA Access ion #: [id number] Sex: F : 1949 0 Exam Date: 2021 8:40 AM Exam Name: CT ABDOME N PELVIS W Admitt ing Diagno sis(es ): Wilfrid azevedo MD Signed Date: 2021 5:06 PM (CT) Dictat ed by: Wilfrid azevedo MD DD: 2021 5:06 PM (CT) DT: 2021 5:06 PM (CT) Page 4 of 4 [id number] [facility] (Im[facility]) [address], [place], [address], 12/25/2022 05:07:19 01/15/20 23 01/14/2023 XR, abdom en No observ ation record ed. [address], [place], [address], 01/15/2023 11:16:33 03/31/20 23 03/31/2023 US, echoc ardio gram No observ ation record ed. [address] [facility] [address], [place], [address], 05/27/2023 12:42:39 04/23/20 24 04/23/2024 imagi ng/di agnos tic resul t No observ ation record ed. [facility] [address], [place], [address], 04/23/2024 12:03:13 Result Notes None recorded. Problems Name Problem SNOMED Code Status Onset Date Resolution Date Notes Provider Name and Address Organization Details Recorded Time Chronic kidney disease 046201927 Active 2022 Not Available [facility] 4 10:26:19 Near syncope 523181520 Active 2022 Not Available [facility] 4 10:26:18 Excess panniculus of abdomen 1568448528485 Active 2022 Not Available [facility] 4 10:26:18 Seasonal allergy [id number] Active 2022 Not Available [facility] 4 10:26:19 Small bowel obstructio n 387396944 Active 2022 Not Available [facility] 4 10:26:18 Transient cerebral ischemia 526247431 Active 2022 Not Available [facility] 4 10:26:18 Abdominal discomfort 41804592 Active 2022 Not Available [facility] 4 10:26:18 Moderate recurrent major depression 79223334 Active 2022 Not Available [facility] 4 10:26:18 Thrombocyt openic disorder 430979364 Active 2022 Not Available [facility] 4 10:26:18 Pain of left wrist 9871230723195 02 Active 2022 Not Available [facility] 4 10:26:18 Skin lesion 54968102 Active 2022 Not Available [facility] 4 10:26:19 Pain of toe of left foot 1365262713032 08 Active 2022 Not Available [facility] 4 10:26:18 Bunion 557157999 Active 2022 Not Available [facility] 4 10:26:18 Diabetes mellitus 60526915 Active 2022 Not Available [facility] 4 10:26:19 Dystrophia unguium 50894134 Active 2022 Not Available [facility] 4 10:26:19 COVID-19 561715576 Active 2022 Not Available [facility] 4 10:26:19 Upper respirator y infection 26520811 Active 2022 Not Available [facility] 4 10:26:19 Tailor's bunion of right foot 0712525033789 109 Active 2019 Not Available [facility] 4 10:26:18 History of diverticul itis 7312837492634 00 Active 2020 Not Available [facility] 4 10:26:18 Cellulitis 600927275 Active Not Available [facility] 4 10:26:18 Hyperchole sterolemia 97817451 Active Not Available [facility] 4 10:26:18 Constipati on 85418791 Active 2022 Not Available [facility] 4 10:26:18 Pain of right elbow joint 4975206715499 9109 Active 2021 Not Available [facility] 4 10:26:18 Blood glucose outside reference range 802771720 Active Not Available [facility] 4 10:26:18 Localized, 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 873584327 Active 2019 Not Available [facility] 4 10:26:18 Tibialis posterior tendinitis 911782830 Active Not Available [facility] 4 10:26:18 Dog bite - wound 125193309 Active Not Available [facility] 4 10:26:18 Hypertrigl yceridemia 352497351 Active 2021 Not Available [facility] 4 10:26:18 Diverticul itis 424828346 Active 2016 Not Available [facility] 4 10:26:18 Localized, primary osteoarthr itis of elbow 004952275 Active Not Available [facility] 4 10:26:18 Type 2 diabetes mellitus without complicati on 561586561 Active 2019 Not Available [facility] 4 10:26:18 Pain in left foot 8999272938790 07 Active Not Available [facility] 4 10:26:18 Depressive disorder 22219404 Active Not Available [facility] 4 10:26:18 Sinusitis 97227000 Active Not Available [facility] 4 10:26:18 Osteoarthr itis 942457143 Active Not Available [facility] 4 10:26:18 Diaphragma tic hernia 45884923 Active Not Available [facility] 4 10:26:18 Pharyngiti s 604437583 Active Not Available [facility] 4 10:26:18 Body mass index 40+ - severely obese 550989784 Active 2017 Not Available [facility] 4 10:26:18 Hypothyroi dism 37616768 Active Not Available [facility] 4 10:26:18 Bunion 261932525 Active 2019 Not Available [facility] 4 10:26:18 History of laparoscop ic adjustable gastric banding 383143834 Active 2020 Not Available [facility] 4 10:26:18 Arthritis of elbow 121747519 Active 2021 Not Available [facility] 4 10:26:19 Shoulder pain 85727317 Active 2021 Not Available [facility] 4 10:26:19 Shoulder pain 43552511 Active 2021 Not Available [facility] 4 10:26:19 Anxiety 98082901 Active 2021 Not Available [facility] 4 10:26:19 Cough 37971584 Active Not Available [facility] 4 10:26:19 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 Procedures Surgical History Date Name Laterality Status Provider Name and Address Organization Details Recorded Time 06/03/20 23 Nail Debridement completed Massimo Porter DPM [address] [facility], [facility] [address], [place], [address], [facility] [employer] 06/03/2023 10:21:02 04/24/20 23 Medicare Wellness CPT Code, subsequent completed Opal Hyde RN [facility] DXY 04/24/2023 14:31:12 07/04/20 22 EGD completed Not Available [facility] 12/25/2022 04:42:48 07/06/20 21 Most Recent Bone Density completed Not Available [facility] 12/25/2022 04:42:42 01/24/20 21 abdominoplasty completed Not Available [facility] 12/25/2022 04:42:48 07/01/20 13 Date of Last Colonoscopy completed Not Available [facility] 12/25/2022 04:42:42 Abdominal Surgery completed Not Available [facility] 12/25/2022 04:42:48 Cataract Surgery completed PRIYANKA Adams Jackie PA [facility] 01/16/2023 11:35:24 Imaging Results Imaging Date Name Status LastModified by Organization Details LastModified Time 09/23/2022 CT, abdomen + pelvis, w/ contrast completed [id number] [facility] (Radiology) [address] [place], [address], 12/25/2022 05:07:19 09/23/2022 CT, abdomen + pelvis, w/ contrast completed [id number] [facility] (Imaging) [address] [place], [address], 12/25/2022 05:07:19 01/14/2023 XR, abdomen completed [address], [place], [address], 01/15/2023 11:16:33 03/31/2023 US, echocardiogram completed [address] [facility] [address], [place], [address], 05/27/2023 12:42:39 04/23/2024 imaging/diagnostic result active [facility] [address], [place], [address], 04/23/2024 12:03:13 Procedure Notes None recorded. Medical Equipment None Reported. Allergies Allergen ID Allergen Name Allergen Category Reaction Reaction Severity Criticality Documentation Date Start Date Code Code System Note Provider Name and Address Organization Details Recorded Time 8753 Demerol medicatio n vomiting Not available Not available 12/25/2022 56897 1 RxNorm Not Available [facility] 3 05:06:32 8754 codeine medicatio n vomiting Not available Not available 12/25/2022 2670 RxNorm Not Available [facility] 3 05:06:32 Medications Name Sig Start Date Stop Date Status Note LastModified by Organization Details LastModified Time celecoxib 200 mg capsule Take 1 capsule every day by oral route in the morning for 90 days. 09/09 completed Not Available Not Available Not Available cyclobenz aprine 10 mg tablet Take 1 tablet every day by oral route as needed for 30 days. active Not Available Not Available No t Available amoxicill in 500 mg capsule Take 1 capsule 3 times a day by oral route for 7 days. 11/30 completed Not Available Not Available Not Available Mapap Extra Strength 500 mg tablet TK 1 T PO Q 4 TO 6 H PRN P 09/09 completed Not Available Not Available Not Available fluconazo le 100 mg tablet 11/30 completed Not Available Not Available Not Available buspirone 5 mg tablet Take 1 tablet twice a day by oral route for 90 days. 11/07 completed Not Available Not Available Not Available metformin 500 mg tablet Take 1 tablet twice a day by oral route for 90 days. active Not Available Not Available No t Available carvedilo l 6.25 mg tablet TK 1 T PO BID 09/24 completed Not Available Not Available Not Available venlafaxi ne ER 75 mg capsule,e xtended release 24 hr TAKE 1 CAPSULE BY MOUTH ONCE DAILY (NO ALCOHOL, DRIVING OR WITH SEDATING MEDS) CALL CLINIC IF CHANGE IN MOOD OR BEHAVIOR . active Not Available Not Available No t Available enalapril maleate 10 mg tablet 02/10 completed Not Available Not Available Not Available clindamyc in HCl 300 mg capsule TK ONE C PO TID FOR 10 DAYS active Not Available Not Available No t Available polyethyl joanna glycol 3350 17 gram oral powder packet Take 1 packet every day by oral route. 06/06 completed Per 01/22/22 Quoc discharg e summary Not Available Not Available Not Available azithromy omi 250 mg tablet FPD 09/02 completed Not Available Not Available Not Available ibuprofen 800 mg tablet TAKE 1 TABLET BY MOUTH THREE TIMES DAILY NEEDED active Not Available Not Available No t Available ofloxacin 0.3 % eye drops INSTILL 1 DROP INTO AFFECTED EYE 3 TIMES DAILY DIRECTED . BEGIN 2 DAYS PRIOR TO SURGERY. 01/16 completed Not Available Not Available Not Available fluconazo le 150 mg tablet Take 1 tablet by oral route. 07/18 completed Not Available Not Available Not Available amiodaron e 200 mg tablet 02/10 completed Not Available Not Available Not Available valacyclo vir 1 gram tablet 01/16 completed Not Available Not Available Not Available cephalexi n 250 mg capsule TAKE 1 C BY MOUTH 3 TIMES A FDAY FOR 10 DAYS 05/28 completed Not Available Not Available Not Available hydrocodo ne 5 mg-acetam inophen 325 mg tablet TAKE 1 TABLET BY MOUTH EVERY 6 HOURS NEEDED FOR PAIN 02/06 completed Not Available Not Available Not Available sotalol 80 mg tablet TAKE 1/2 (ONE-CORY F) TABLET BY MOUTH TWICE DAILY active Not Available Not Available No t Available enalapril maleate 20 mg tablet TAKE 1 TABLET BY MOUTH EVERY DAY 05/28 completed stopped at hospital after surgery Not Available Not Available Not Available promethaz ine 6.25 mg/5 mL oral syrup Take 10 mL 3 times a day by oral route. active Not Available Not Available No t Available ondansetr on HCl 8 mg tablet 09/09 completed Not Available Not Available Not Available Levaquin 750 mg tablet Take 1 tablet every day by oral route for 7 days. active Not Available Not Available No t Available ondansetr on HCl 4 mg tablet 12/16 completed Not Available Not Available Not Available Medrol ([place]) 4 mg tablets in a dose pack TAKE BY MOUTH DIRECTED active Not Available Not Available No t Available bupivacai ne HCl 0.5 % (5 mg/mL) injection solution Take 2 mg by injectio n route. 06/06 completed Not Available Not Available Not Available prednison e 20 mg tablet 01/16 completed Not Available Not Available Not Available cephalexi n 250 mg tablet Take 1 tablet 3 times a day by oral route for 7 days. 09/17 completed Not Available Not Available Not Available glipizide ER 5 mg tablet, extended release 24 hr Take 1 tablet by mouth once daily 11/19 completed Not Available Not Available Not Available permethri n 5 % topical cream active Not Available Not Available Not Available metronida zole 500 mg tablet 09/09 completed Not Available Not Available Not Available fexofenad ine 180 mg tablet Take 1 tablet every day by oral route. active Not Available Not Available No t Available ciproflox acin 250 mg tablet 11/30 completed Not Available Not Available Not Available diethylpr opion ER 75 mg tablet,ex tended release Take 1 tablet every day by oral route in the morning for 30 days. active Not Available Not Available No t Available ciproflox acin 500 mg tablet Take 1 tablet twice a day by oral route as directed for 5 days. active Not Available Not Available No t Available aspirin 81 mg tablet,de layed release Take 1 tablet every day by oral route. 09/09 completed Not Available Not Available Not Available tramadol 50 mg tablet TAKE 1 TABLET BY MOUTH EVERY 6 HOURS NEEDED FOR PAIN RATED 4 6 05/15 completed Not Available Not Available Not Available triamcino lone acetonide 0.1 % topical cream APPLY A THIN LAYER TO THE AFFECTED AREA(S) BY TOPICAL ROUTE 2 TIMES PER DAY 12/18 completed Not Available Not Available Not Available spironola ctone 25 mg tablet TK 1/2 T PO D 05/28 completed Not Available Not Available Not Available simvastat in 40 mg tablet TAKE 1 TABLET BY MOUTH DAILY active Not Available Not Available No t Available carvedilo l 3.125 mg tablet TK 1 T PO BID 04/01 completed Not Available Not Available Not Available ketorolac 0.5 % eye drops INSTILL 1 DROP INTO OPERATIV E EYE 3 TIMES DAILY. BEGIN 2 DAYS BEFORE SURGERY. 01/16 completed Not Available Not Available Not Available meloxicam 7.5 mg tablet Take 1 tablet every day by oral route as needed for 30 days. active Not Available Not Available No t Available oxycodone -acetamin ophen 5 mg-325 mg tablet 09/09 completed Not Available Not Available Not Available alprazola m 0.5 mg tablet Take 1 tablet every day by oral route as needed. 12/18 completed Not Available Not Available Not Available amoxicill in 875 mg tablet TAKE 1 TABLET BY MOUTH TWICE DAILY UNTIL FINISHED 09/23 completed Not Available Not Available Not Available hydromorp isaiah 2 mg tablet 10/07 completed Not Available Not Available Not Available citalopra m 20 mg tablet Take 1 tablet every day by oral route for 90 days. active Not Available Not Available No t Available magnesium oxide 400 mg (241.3 mg magnesium ) tablet TAKE 1 TABLET BY MOUTH TWICE DAILY 01/16 completed Not Available Not Available Not Available DOK 100 mg capsule TAKE 1 CAPSULE BY MOUTH ONCE DAILY 12/18 completed Not Available Not Available Not Available Kenalog 10 mg/mL suspensio n for injection In office injectio n administ ered by the provider 01/31 completed [facility]: [id number] 02-13 Not Available Not Available Not Available benzonata te 100 mg capsule TK ONE C PO Q 8 H PRN active Not Available Not Available No t Available glipizide ER 2.5 mg tablet, extended release 24 hr Take 1 tablet every day by oral route for 90 days. 01/31 completed Not Available Not Available Not Available levothyro xine 50 mcg tablet TAKE 1 TABLET BY MOUTH ONCE DAILY active Not Available Not Available No t Available Lasix 20 mg tablet Take 1 tablet every day by oral route. 03/[address] Foley Not Available Not Available Not Available cephalexi n 500 mg capsule TK ONE C PO QID 04/18 completed Not Available Not Available Not Available erythromy omi 5 mg/gram (0.5 %) eye ointment APPLY 1 CM RIBBON INTO THE LOWER CONJUNCT IVAL SAC(S) IN THE AFFECTED EYE(S) BY OPHTHALM IC ROUTE 2 TIMES PER DAY X 10 days active Not Available Not Available No t Available hyoscyami ne sulfate 0.125 mg tablet Take 1 tablet twice a day by oral route. active Not Available Not Available No t Available buspirone 10 mg tablet TAKE 1 TABLET BY MOUTH TWICE DAILY active Not Available Not Available No t Available Kaelyn-D 12 Hour 60 mg-120 mg tablet,ex tended release active Not Available Not Available Not Available warfarin 5 mg tablet TK 1 T PO DAILY FOR 7 DAYS PRIOR TO YOUR PROCEDUR E 11/30 completed Not Available Not Available Not Available nystatin- triamcino lone 100,000 unit/g-0. 1 % topical cream APPLY Under arm BID IN THE MORNING AND EVENING as needed active Not Available Not Available No t Available chlordiaz epoxide-c lidinium 5 mg-2.5 mg capsule Take 1 capsule 3 times a day by oral route as directed . 09/09 completed Not Available Not Available Not Available monteluka st 10 mg tablet Take 1 tablet by mouth once daily active Not Available Not Available No t Available aspirin 81 mg tablet Take 1 tablet every day by oral route. 11/19 completed pt stop herseelf Not Available Not Available Not Available lisinopri l 5 mg tablet TAKE 1 TABLET BY MOUTH ONCE DAILY active Not Available Not Available No t Available gabapenti n 100 mg capsule Take 1 capsule every day by oral route for 90 days. active Not Available Not Available No t Available ergocalci ferol (vitamin D2) 1,250 mcg (50,000 unit) capsule TAKE 1 CAPSULE BY MOUTH ONCE A WEEK active Not Available Not Available No t Available levofloxa omi 500 mg tablet 11/30 completed Not Available Not Available Not Available neomycin 500 mg tablet 09/09 completed Not Available Not Available Not Available heparin (porcine) 10,000 unit/mL injection solution INJECT 1/2 ML SUBCUTAN EOUSLY TID FOR 3 WEEKS 04/07 completed Not Available Not Available Not Available cefdinir 300 mg capsule Take 1 capsule every 12 hours by oral route for 10 days. active Not Available Not Available No t Available fluticaso ne propionat e 50 mcg/actua tion nasal spray,ne pension SHAKE LQ AND U 1 SPR IEN QD 11/16 completed Not Available Not Available Not Available lisinopri l 2.5 mg tablet TK 1 T PO ATN 06/03 completed Not Available Not Available Not Available calcitrio l 0.25 mcg capsule TAKE 1 CAPSULE BY MOUTH ONCE DAILY 01/16 completed ran out and never got refilled Not Available Not Available Not Available loratadin e 10 mg tablet TAKE 1 TABLET BY MOUTH ONCE DAILY NEEDED 01/16 completed Not Available Not Available Not Available amoxicill in 875 mg-potass ium clavulana te 125 mg tablet TAKE 1 TABLET BY MOUTH TWICE DAILY 09/23 completed Not Available Not Available Not Available amoxicill in 500 mg-potass ium clavulana te 125 mg tablet TK 1 T PO Q 12 H FOR 6 DAYS UTD active Not Available Not Available No t Available Ventolin HFA 90 mcg/actua tion aerosol inhaler INHALE 2 PUFFS PO Q 4 H 09/24 completed Not Available Not Available Not Available cyclobenz aprine 5 mg tablet Take 1 tablet every day by oral route at bedtime for 30 days. active Not Available Not Available No t Available rosuvasta tin 40 mg tablet Take 1 tablet by mouth once daily active Not Available Not Available No t Available Alcohol Prep Pads USE TO CHECK BLOOD SUGAR ONCE DAILY active Not Available Not Available No t Available Cymbalta 60 mg capsule,d elayed release Take 1 capsule every day by oral route for 90 days. active Not Available Not Available No t Available Kaelyn-D 24 Hour 180 mg-240 mg tablet,ex tended release Take 1 tablet every day by oral route for 6 days. active Not Available Not Available No t Available UnirisxTouch Ultra2 Meter kit USE DIRECTED TO TEST BLOOD GLUCOSE 09/24 completed Not Available Not Available Not Available fenofibra te nanocryst allized 48 mg tablet TK ONE T PO QD FOR 30 DAYS 02/10 completed Not Available Not Available Not Available fenofibra te nanocryst allized 145 mg tablet TAKE 1 TABLET BY MOUTH ONCE DAILY active Not Available Not Available No t Available azelastin e 205.5 mcg (0.15 %) nasal spray SPRAY 1 SPRAY IEN BID active Not Available Not Available No t Available Probiotic 60 Billion Daily 11/19 completed Not Available Not Available Not Available Linzess 145 mcg capsule Take 1 capsule every day by oral route. 04/24 completed Not Available Not Available Not Available Vascepa 1 gram capsule TAKE 2 CAPSULES BY MOUTH TWICE DAILY 01/16 completed Not Available Not Available Not Available Eliquis 5 mg tablet Take 1 tablet twice a day by oral route. 03/[address] Foley Not Available Not Available Not Available Entresto 49 mg-51 mg tablet TAKE 1 TABLET BY MOUTH TWICE DAILY active Increase d by Dr Foley 12/08/19 Not Available Not Available Not Available Entresto 24 mg-26 mg tablet TAKE 1 TABLET BY MOUTH TWICE DAILY active Not Available Not Available No t Available Linzess 72 mcg capsule 04/24 completed Not Available Not Available Not Available Accu-Chek Guide test strips USE 1 ONCE DAILY active Not Available Not Available No t Available Ozempic 1 mg/dose (2 mg/1.5 mL) subcutane ous pen injector INJECT 0.5MG UNDER THE SKIN EVERY WEEK 10/07 completed No Prior Auth Needed Not Available Not Available Not Available Ozempic 0.25 mg or 0.5 mg (2 mg/1.5 mL) subcutane ous pen injector INJECT 0.5 MG UNDER THE SKIN ONCE WEEKLY 02/25 completed Not Available Not Available Not Available OneTouch Ultra Blue Test Strip TEST D UTD 02/18 completed Not Available Not Available Not Available Lokelma 5 gram oral powder packet DISSOLVE 1 PACKET AND TAKE BY MOUTH ONCE DAILY 12/18 completed Not Available Not Available Not Available rosuvasta tin 40 mg sprinkle capsule Take by oral route. 09/02 completed Not Available Not Available Not Available Accu-Chek Guide Me Glucose Meter ONCE DAILY active Not Available Not Available No t Available OneTouch Delica Plus Lancet 33 gauge USE 1 LANCET TO CHECK GLUCOSE ONCE DAILY active Not Available Not Available No t Available Fluzone High-Dose (PF) 180 mcg/0.5 mL intramusc ular syringe TO BE ADMINIST ERED BY Blushr FOR IMMUNIZA TION 10/07 completed Not Available Not Available Not Available Fluzone High-Dose Quad (PF) 240 mcg/0.7 mL IM syringe PHARMACI ST ADMINIST ERED IMMUNIZA TION ADMINIST ERED AT TIME OF DISPENSI NG 02/06 completed Not Available Not Available Not Available Paxlovid 150 mg-100 mg tablets in a dose pack (Renal Dose) USE DIRECTED PER PACKAGE 09/23 completed Not Available Not Available Not Available Ozempic 0.25 mg or 0.5 mg (2 mg/3 mL) subcutane ous pen injector INJECT 0.5MG SUB-Q ONCE A WEEK active Not Available Not Available No t Available Vitals Date Recorded Body mass index (BMI) Body height Heart rate Body temperature Body weight Systolic blood pressure Diastolic blood pressure Provider Name and Address Organization Details Last Updated DateTime 2 27.6 kg/m2 154.94 cm 90 /min 97.7 [degF] 26957.4 9 g 110 mm[Hg] 66 mm[Hg] Not Available [facility] 3 04:46:48 Date Recorded Body mass index (BMI) Body height Oxygen saturation Oxygen saturation in Arterial blood by Pulse oximetry Heart rate Body temperature Body weight Systolic blood pressure Diastolic blood pressure Provider Name and Address Organization Details Last Updated DateTime 3 27.8 kg/m2 154.94 cm 97 % 97 % 72 /min 97.2 [degF] 84239.0 8 g 130 mm[Hg] 80 mm[Hg] Not Available [facility] 3 04:46:48 Date Recorded Body height Body mass index (BMI) Body weight Body temperature Heart rate Systolic blood pressure Diastolic blood pressure Provider Name and Address Organization Details Last Updated DateTime 3 154.94 cm 27.2 kg/m2 68168.3 g 97.1 [degF] 66 /min 114 mm[Hg] 66 mm[Hg] PRIYANKA Adams [employer] [facility] 3 11:36:55 Date Recorded Body height Body mass index (BMI) Body weight Body temperature Heart rate Systolic blood pressure Diastolic blood pressure Provider Name and Address Organization Details Last Updated DateTime 3 154.94 cm 27.9 kg/m2 05106.8 7 g 97.2 [degF] 78 /min 116 mm[Hg] 60 mm[Hg] PRIYANKA Adams [employer] 3 14:11:04 Date Recorded Pain severity - 0-10 verbal numeric rating [Score] - Reported Provider Name and Address Organization Details Last Updated DateTime 04/24/2023 0 Opal Hyde RN [facility] 04/24/2023 14:31:57 Date Recorded Body height Body mass index (BMI) Body weight Heart rate Respiratory rate Oxygen saturation Oxygen saturation in Arterial blood by Pulse oximetry Systolic blood pressure Diastolic blood pressure Provider Name and Address Organization Details Last Updated DateTime 3 154.94 cm 27 kg/m2 38030.7 1 g 65 /min 14 /min 98 % 98 % 115 mm[Hg] 74 mm[Hg] Nydia Lewis MS [employer] [facility] 3 09:44:05 Social History Question Answer Notes LastModified by Organizat ion Details LastModified Time Tobacco Smoking Status Never Smoker Not Available [facility] 12/25/2022 04:20:45 Do You Have An Advance Directive? No [id number] Information not available 12/25/2022 What Is Your Level Of Alcohol Consumption? None [id number] Information not available 12/25/2022 Are You Blind Or Do You Have Difficulty Seeing? No [id number] Information not available 12/25/2022 What Is Your Level Of Caffeine Consumption? Moderate [id number] Information not available 12/25/2022 How Much Tobacco Do You Chew? None [id number] Information not available 12/25/2022 In The 14 Days Before Symptom Onset, Have You Had Close Contact With A Laboratory-confi rmed COVID-19 While That Case Was Ill? No [id number] Information not available 12/25/2022 In The 14 Days Before Symptom Onset, Have You Had Close Contact With A Person Who Is Under Investigation For COVID-19 While That Person Was Ill? No [id number] Information not available 12/25/2022 Are You Deaf Or Do You Have Serious Difficulty Hearing? No [id number] Information not available 12/25/2022 What Type Of Diet Are You Following? REGULAR MIGRATION.95072 51793 Information not available 12/25/2022 Which Illicit Or Recreational Drugs Have You Used? Marijuana Information not available 01/16/2023 Do You Or Have You Ever Used E-cigarettes Or Vape? Never Used Electronic Cigarettes MIGRATION.52456 68974 Information not available 12/25/2022 What Is The Highest Grade Or Level Of School You Have Completed Or The Highest Degree You Have Received? 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 No MIGRATION.47827 11072 Information not available 12/25/2022 What Is The Fluoride Status Of Your Home? Unknown MIGRATION.56314 90909 Information not available 12/25/2022 Are There Any Guns Present In Your Home? Yes MIGRATION.52742 00457 Information not available 12/25/2022 Do You Use Insect Repellent Routinely? No MIGRATION.45342 34262 Information not available 12/25/2022 Where Do You Live? [place] MIGRATION.69425 19034 Information not available 12/25/2022 Do You Have A Medical Power Of Content Management Specialist? No MIGRATION.46478 31786 Information not available 12/25/2022 What Was The Date Of Your Most Recent Tobacco Screening? 06/03/2023 [email or web address] Information not available 06/03/2023 Do You Have Any Pets? Yes MIGRATION.99192 25292 Information not available 12/25/2022 What Is Your Relationship Status? MIGRATION.98776 07144 Information not available 12/25/2022 Do You Use Your Seat Belt Or Car Seat Routinely? Yes MIGRATION.28223 25624 Information not available 12/25/2022 Do You Have Smoke And Carbon Monoxide Detectors In Your Home? Yes MIGRATION.57006 61520 Information not available 12/25/2022 Are You Passively Exposed To Smoke? No MIGRATION.89463 66680 Information not available 12/25/2022 Do You Or Have You Ever Used Smokeless Tobacco? Never Used Smokeless Tobacco MIGRATION.01009 05313 Information not available 12/25/2022 Are There Any Smokers In Your House? No MIGRATION.90147 57012 Information not available 12/25/2022 How Much Tobacco Do You Smoke? No MIGRATION.58073 10194 Information not available 12/25/2022 Do You Feel Stressed (tense, Restless, Nervous, Or Anxious, Or Unable To Sleep At Night)? [id number] MIGRATION.63756 14603 Information not available 12/25/2022 Do You Use Any Illicit Or Recreational Drugs? Yes Information not available 01/16/2023 Do You Use Sunscreen Routinely? No MIGRATION.52707 13763 Information not available 12/25/2022 Has Tobacco Cessation Counseling Been Provided? No N/a MIGRATION.50487 98146 Information not available 12/25/2022 How Many Years Have You Smoked Tobacco? 0 MIGRATION.05788 25339 Information not available 12/25/2022 Have You Recently Traveled Abroad? No MIGRATION.53169 05477 Information not available 12/25/2022 Have You Used IV Drugs? No Information not available 01/16/2023 Do You Have Any Dietary Restrictions? No MIGRATION.13762 64697 Information not available 12/25/2022 Do You Or Have You Ever Used Any Other Forms Of Tobacco Or Nicotine? No MIGRATION.20034 77341 Information not available 12/25/2022 Sex: Female Functional Status Question Answer Note LastModified by [employer] [facility] Details LastModified Time Do you have difficulty walking or climbing stairs? No MIGRATION.5034497 026 Information not available 12/25/2022 Do you have transportation difficulties? No MIGRATION.9825101 026 Information not available 12/25/2022 Are you able to walk? YESWOREST MIGRATION.7914030 026 Information not available 12/25/2022 Do you have difficulty doing errands alone? No MIGRATION.5411295 026 Information not available 12/25/2022 Are you able to care for yourself? Yes MIGRATION.2765796 026 Information not available 12/25/2022 Do you have difficulty dressing or bathing? No MIGRATION.6887722 026 Information not available 12/25/2022 What is your exercise level? None MIGRATION.9427158 026 Information not available 12/25/2022 Mental Status Question Answer Note LastModified by [employer] Details LastModified Time Do you have difficulty concentrating, remembering or making decisions? No MIGRATION.[id number] 6 Information not available 12/25/2022 Family History Relationship Description Onset Age of this Age Resolved Age Notes LastModified by Organization Details LastModified Time Maternal Grandfather Diabetes mellitus MIGRATION.365 [id number] Not available 12/25/2022 04:42:52 Mother Diabetes mellitus MIGRATION.377 [id number] Not available 12/25/2022 04:42:52 Father Heart disease MIGRATION.427 [id number] Not available 12/25/2022 04:42:52 Sister Malignant tumor of stomach MIGRATION.907 [id number] Not available 12/25/2022 04:42:52 Medical History Condition Response NERVE DISEASE N BLINDNESS N RHEUMATIC FEVER Y KIDNEY STONES N BLADDER PROBLEMS N MRSA N OTHER # 1 N POLIO N LUNG DISEASE/DISORDER N HISTORY OF DRUG ABUSE N RADIATION / CHEMOTHERAPY N COPD N Other # 2 N BLOOD DISEASES N EAR OR HEARING PROBLEMS N MUMPS N SHINGLES Y BOWEL PROBLEMS N DEPRESSION (INCLUDING POST ) Y STROKE/TIA Y THYROID DISEASE Y ULCERS N BENIGN PROSTATIC HYPERPLASIA N MEASLES N HYPOTENSION N MYOCARDIAL INFARCTION N PARAPELGIA N OBESITY N GERD/NAUSEA N ANEURYSM N URINARY/BLADDER/KIDNEY PROBLEMS N CORONARY ARTERY DISEASE (CAD) N Do you have Advance directive? N ADDICTION CONCERNS N ENDOMETRIOSIS N Impotence N USE OF BLOOD THINNERS N SKIN PROBLEMS N GASTROINTESTINAL DISORDER N PERIPHERAL VASCULAR DISEASE N MUSCLE,JOINT OR BONE PROBLEMS N GASTROINTESTINAL BLEEDING N Do you have a living will? N BLOOD CLOTS N ASTHMA N CATARACTS N USE OF NSAIDS N ERECTILE DYSFUNCTION N VARICOSITIES N GI PROBLEMS N CHF Y Low Testosterone N NEUROPATHY N INFERTILITY N AIDS/HIV N CHEMOTHERAPY / RADIATION N LIVER DISEASE N MALE HYPOGONADISM N HYPERTENSION Y Deficiency N TOURETTE'S N ANXIETY DISORDER N BLOOD TRANSFUSION N ANEMIA/BLOOD DISORDER N CHRONIC EAR INFECTIONS N BRONCHITIS Y TUBERCULOSIS N GLAUCOMA N FOOT PROBLEM N DIVERTICULITIS N CHICKENPOX N SLEEP APNEA Y ALLERGIES/HAYFEVER Y INFECTIOUS DISEASE N HEART ARRHYTHMIA N PROSTATE N INSOMNIA N HIGH CHOLESTEROL / HYPERLIPIDEMIA Y HYPERTHYROIDISM N EYE PROBLEMS N EDEMA N CHRONIC PAIN SYNDROME N HYPOTHYROIDISM Y CONSTIPATION N CAROTID BLOCKAGE N BACK / NECK PROBLEMS N MIGRAINES N ATHEROSCLEROSIS N BREAST PROBLEMS N DIALYSIS N ECZEMA N HISTORY WITH COMPLICATIONS WITH ANESTHES IA ? N FIBROMYALGIA N OSTEOPOROSIS Y ARTHRITIS Y Do you have a healthcare POA? N APPENDICITIS N DIABETES, TYPE Y BAD TEETH N ENT N HEARTBURN / REFLUX N AUTISM SPECTRUM DISORDER (ASD) N HEPATITIS / LIVER DISEASE N PULMONARY DISEASE N GOUT Y SLEEP DISORDER N ALZHEIMER'S DISEASE N Brain Problems N HERPES N DEMENTIA N HEADACHES/MIGRAINES N SEIZURES/EPILEPSY N VASCULAR DISEASE N PACEMAKER Y Blood Disorder Y DIZZINESS N HEART DISEASE/HEART PROBLEMS Y KIDNEY DISEASE Y MULTIPLE SCLEROSIS N MENTAL DISORDER/ILLNESS N CARDIAC ARRHYTHMIA Y CANCER: SPECIFY N ATRIAL FIBRILLATION N Gall Stones N PULMONARY EMBOLISM N AUTOIMMUNE DISEASE N DEAF/HEARING IMPAIRED N Gynecological History Statement/Question Response Date of Last Mammogram 07/06/2021 Date of Last Colonoscopy 07/01/2013 Most Recent Bone Density 07/06/2021 Obstetrics History GPAL:G 0 P 0 0 0 0 Immunizations Vaccine Type Date Status Note Provider Nam e and Address Organization Details Recorded Time COVID-19, mRNA, LNP-S, bivalent, PF, 30 mcg/0.3 mL dose 2 completed Not Available [facility] 12/16/2023 10:26:20 COVID-19, mRNA, LNP-S, PF, 30 mcg/0.3 mL dose 2 completed Not Available [facility] 12/16/2023 10:26:20 Influenza, high-dose, quadrivalent, PF 2 completed Not Available [facility] 12/16/2023 10:26:19 COVID-19, mRNA, LNP-S, PF, 30 mcg/0.3 mL dose 1 completed Not Available [facility] 12/16/2023 10:26:20 SARS-COV-2 (COVID-19) vaccine, UNSPECIFIED 1 completed Not Available [facility] 12/16/2023 10:26:20 SARS-COV-2 (COVID-19) vaccine, UNSPECIFIED 1 completed Not Available [facility] 12/16/2023 10:26:20 Pneumococcal conjugate PCV 13 9 completed Not Available [facility] 12/16/2023 10:26:20 Influenza, split virus, quadrivalent, preservative 9 completed Not Available [facility] 12/16/2023 10:26:19 influenza, unspecified formulation 7 completed Not Available [facility] 12/16/2023 10:26:20 tetanus toxoid, unspecified formulation 5 completed Not Available [facility] 12/16/2023 10:26:20 pneumococcal polysaccharide PPV23 2 completed Not Available [facility] 12/16/2023 10:26:20 Influenza, high-dose, quadrivalent, PF 1 completed Not Available [facility] 12/16/2023 10:26:19 Influenza, high-dose, trivalent, PF 8 completed Not Available [facility] 12/16/2023 10:26:20 Influenza, split virus, quadrivalent, preservative 6 completed Not Available [facility] 12/16/2023 10:26:19 Influenza, split virus, trivalent, preservative 4 completed Not Available [facility] 12/16/2023 10:26:20 Influenza, split virus, trivalent, preservative 3 completed Not Available [facility] 12/16/2023 10:26:20 zoster live 3 completed Not Available [facility] 12/16/2023 10:26:20 Past Encounters Encounter ID Performer Location Encounter Start Date Encounter Closed Date Diagnosis/Indication Diagnosis SNOMED-CT Code Diagnosis ICD10 Code Diagnosis Note [id number] [facility] Internal Med [facility] [address] [facility] [address] [place] [address] 02/06/2021 00:00:00 03/15/2021 09:12:55 [id number] [facility] Internal Med [facility] [address] [facility] [address] [place] [address] 03/15/2021 00:00:00 03/20/2021 09:36:32 [id number] [facility] Pulmonolo gy Rudy Escamilla [address] [place] [address] 04/10/2021 00:00:00 04/10/2021 13:28:43 [id number] [facility] Internal Med [facility] [address] [address] 05/15/2021 00:00:00 05/16/2021 13:12:12 [id number] [facility] General Surgery [address] [facility] [address] [place] [address] 06/12/2021 00:00:00 06/12/2021 14:14:33 [id number] [facility] Internal Med [facility] [address] [facility] [address] [place] [address] 06/21/2021 00:00:00 06/21/2021 11:10:32 [id number] _ATHENA_M IGRATION_ DEFAULT_1 _1 , 07/09/2021 00:00:00 07/09/2021 17:02:21 [id number] [facility] Internal Med [facility] [address] [place] [address] [address] [address] 08/14/2021 00:00:00 08/15/2021 17:19:35 [id number] [facility] Internal Med Jai santamaria [address] [facility] [place] [address] 11/19/2021 00:00:00 01/21/2022 15:53:56 [id number] [facility] Ortho [facility] [address] [place] [address] 12/18/2021 00:00:00 12/18/2021 16:56:08 [id number] [facility] Internal Med [place] [address] [place] [address] Ave[address] [address] 01/31/2022 00:00:00 03/26/2022 14:20:03 [id number] [facility] [address] [place] [address] 03/27/2022 00:00:00 04/12/2022 11:43:40 [id number] [facility] Internal Med [place] [address] [place], [place] [address]e., [address] [address] 06/06/2022 00:00:00 07/25/2022 16:43:39 [id number] [facility] Internal Med [facility] [address] [place], [place] [address]., [address] [address] 06/27/2022 00:00:00 06/27/2022 12:14:26 [id number] [facility] Internal Med [facility] [address] [place], [place] [address]., [address] [address] 09/17/2022 00:00:00 09/17/2022 11:57:41 [id number] [facility] Pulmonolo gy [place] [address] [place] [address] 11/11/2022 00:00:00 11/11/2022 13:01:48 [id number] Brody mora MD [facility] Internal Med [facility] [address] [place], [place] [address]., [address] [address] 01/16/2023 11:06:15 01/16/2023 12:42:18 Screening - NAD [id number] Z13.9 C-scope: S/p surgery for diverticul itis 08/12/17 Dr Packer t another C-scope done, sees her GI Mammogram: 02/26/18 Neg 9: Neg09/10/2 021: NegOrdered PAP: Not having any complaints declines any referrals at this time DEXA: 02/26/18: Osteopenia and is on ca and vit DDEXA: 07/06/2021 : [facility]2019 , get #23UTD on zosterGet the TdUTD on COVID 19 01/14/2021 ADDENDUM: 08/06/18:Heidy Rose filled out for her today RTC in 3 monthsDo labsER if worseshe did verbalize her understand ing of the above Hyperlipidemia 45971762 E78.5 On rosuvastat in 40mg daily, but stopped this on her own, will need to restart 09/17/2022 Not on vascepaGet labs 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 [id number] E11.9 On glipizide will decrease to 2.5mg daily as she did have a low glucose and felt presyncopa l 11/19/2021 , now on 5mg post hosp d/c 01/22/2022 , not taking this at this time 06/06/2022 On ozempicGet labsNeeds to see eye MD and podiatry Addendum: 03/26/2022 :She is cleared for surgeryDr Allyssa ractDate: 04/15/2022 OV 09/17/2022 :On ozempic, does well, no hx of MEN 2 or pancreatit isDoes well nowGet labs Chronic ki dney disease 137358859 N18.[address] Dr Benavides On calcitriol On vit d weekly On lokelma (to treat high K), but not taking this as per her 11/19/2021 On mag ox Obstructiv e sleep apnea syndrome 55516716 G47.33 On CPAPSee pulmonary History of bariatric surgical procedure 463155435 Z98.[address] Mccray 07/09/2021 : Did not do the EGD as she was told to go an 1.5 hour awayGet a referral to Dr Sylvain VILLALOBOS 11/19/2021 Hypothyroidism 85285740 E03.9 On euthyrox 50mcgs daily US thyroid 07/06/2021 : Neg Pain of ri ght elbow joint [id number] 4052992 M25.521 Still c/o pain and unable to extend the elbowAlso c/o pain in the R wrist Dr Calderon 12/18/2021 , 03/27/2022 , may need elbow arthroplas ty, and cardiac clearance, she did see Bg Zaldivar on 06/12/2022 as per her history today 09/17/2022 and was told no surgery needed Near syncope 521384438 R 55 [facility] 08/16/2022 , Dr Foley, next apt is in 6 months Diaphragmatic hernia 398 51550 K44.9 S/p [facility] ER, 07/04/2022 , EGD 07/04/2022 Dr Narayan Essential hypertension 45443272 I10 S/p Roldan ICD 020: Seen in ER CNE as the Biotronik ICD was firing, as per Dr Alejandra this is lead noise and not true v-tach, pt d/c with f/u in Dr Alejandra' s office On ASAOn entresto 24-26mg bid Dr FoleyOn sotalol 80mg bid, changed to 40mg bid post d/c [place] 01/22/2022 On mag ox Sees [facility] Dr Foley last OV 08/16/2022 , next in 6 months Moderate r ecurrent major depression 41043882 F33.1 On venlafaxin e ER 75mg dailyOn xanax 0.5mg daily as needed but uses this very rarelyOn buspirone 10mg po bid all side effects explained to her Does well, not suicidal or homicidalD eclines any psychiatry referrals Excess yousif niculus of abdomen [id number] 101 E65 S/p surgery Dr Funes, she self referred to him Infected wound on 02/24/2021 and was readmitted , wound exploratio n and packing done in OR by Dr Lazo on 02/24/2021 Does well nowOn tramadol, advised to not take this often Small glenda l obstruction 310500900 K56.609 Admitted [facility], d/c 01/22S/p resection 01/16/2022 , treated with IV antibiotic s and PICC line as was NPO 01/22/2022 :CMP: Gluc 100, AST 37HCBC: WBC 10.8H, H/H 10.8/33.5 Does well now Thrombocyt openic disorder 349054300 D69.6 Dr Willis 04/25/2022 Transient cerebral ischemia 316098436 G45.9 This is new history as per herShe has seen a neurologis t in [place], cannot recall the nameShe has signed a LUDMILA and will call with the name Dr Hernandez 02/18/2022 Screening mammography 24 469870 Z12.31 Constipation 34329572 K5 9.00 Did see WILFREDO Roland RESEARCH DEVELOPMENT MANAGER on 01/14/2023 and did do an xray abd, now is on linzess as per her history Pain of left wrist 98407 78996 48470 M25.532 S/p EMG done by Dr Brand an apt with hand surgery [id number] Brody mora MD [facility] Internal Med [facility] 15 [address] [facility], [place] [address] [place] [address] 04/24/2023 13:58:13 04/24/2023 14:35:06 Screening - NAD [id number] Z13.9 C-scope: S/p surgery for diverticul itis 08/12/[address] Narayan 02/05/2023 , s/p c-scope 10/2022 Mammogram: 02/26/18 Neg 9: Neg 021: NegOrdered PAP: Not having any complaints declines any referrals at this time DEXA: 02/26/18: Osteopenia and is on ca and vit DDEXA: 07/06/2021 : Osteopenia [facility] [facility] [place] [facility]13 09/19/2019 , get #23UTD on zosterGet the TdUTD on COVID 19 01/14/2021 ADDENDUM: 08/06/18:Heidy Rose filled out for her today RTC in 3 monthsDo labsER if worseshe did verbalize her understand ing of the above Hyperlipidemia 54740545 E78.5 On rosuvastat in 40mg daily, but stopped this on her own, will need to restart 09/17/2022 Not on vascepaGet labs 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 410254733 E11.9 On glipizide will decrease to 2.5mg daily as she did have a low glucose and felt presyncopa l 11/19/2021 , now on 5mg post hosp d/c 01/22/2022 , not taking this at this time 06/06/2022 On ozempicGet labsNeeds to see eye MD and podiatry Addendum: 03/26/2022 :She is cleared for surgeryDr Allyssa betancourttDate: 04/15/2022 OV 09/17/2022 :On ozempic, does well, no hx of MEN 2 or pancreatit isDoes well nowGet labs OV 04/24/2023 :On ozempic, get labs, does well Chronic ki dney disease 960287070 N18.[address] Dr Benavides On calcitriol On vit d weekly On lokelma (to treat high K), but not taking this as per her 11/19/2021 On mag ox Obstructiv e sleep apnea syndrome 73599308 G47.33 On CPAPSee pulmonary History of bariatric surgical procedure 984970573 Z98.[address] Mccray 07/09/2021 : Did not do the EGD as she was told to go an 1.5 hour awayGet a referral to Dr Narayan GI 11/19/2021 Dr Narayan 02/05/2023 , started on linzess, f/u in 3 monthsNot taking linzess now Hypothyroidism 38201492 E03.9 On euthyrox 50mcgs daily US thyroid 07/06/2021 : Neg Pain of ri ght elbow joint 7602209706 8557961 M25.521 Still c/o pain and unable to extend the elbowAlso c/o pain in the R wrist Dr Calderon 12/18/2021 , 03/27/2022 , may need elbow arthroplas ty, and cardiac clearance, she did see [facility] Dr Zaldivar on 06/12/2022 as per her history 09/17/2022 and was told no surgery needed Near syncope 764719740 R 55 [facility] 08/16/2022 , Dr Foley, next apt is in 6 months Diaphragmatic hernia 398 64566 K44.9 S/p [facility] ER, 07/04/2022 , EGD 07/04/2022 Dr Narayan Essential hypertension 02599069 I10 S/p Roldan ICD 020: Seen in ER CNE as the Biotronik ICD was firing, as per Dr Alejandra this is lead noise and not true v-tach, pt d/c with f/u in Dr Alejandra' s office On ASAOn entresto 24-26mg bid Dr Tillman sotalol 80mg bid, changed to 40mg bid post d/c [place] 01/22/2022 On mag ox Sees [facility] Dr Foley last OV 02/28/2023 , next in 6 months Moderate r ecurrent major depression 16448991 F33.1 On venlafaxin e ER 75mg dailyOn xanax 0.5mg daily as needed but uses this very rarelyOn buspirone 10mg po bid all side effects explained to her Does well, not suicidal or homicidalD eclines any psychiatry referrals Excess yousif niculus of abdomen 3786000180 101 E65 S/p surgery Dr Funes, she self referred to him Infected wound on 02/24/2021 and was readmitted , wound exploratio n and packing done in OR by Dr Lazo on 02/24/2021 Does well nowOn tramadol, advised to not take this often Small glenda l obstruction 116069884 K56.609 Admitted [facility], d/c 01/22S/p resection 01/16/2022 , treated with IV antibiotic s and PICC line as was NPO 01/22/2022 :CMP: Gluc 100, AST 37HCBC: WBC 10.8H, H/H 10.8/33.5 Does well now Thrombocyt openic disorder 063968125 D69.6 Dr Willis 02/28/2023 , f/u in 6 months Transient cerebral ischemia 526194523 G45.9 This is new history as per herShe has seen a neurologis t in [place], cannot recall the nameShe has signed a LUDMILA and will call with the name Dr Hernandez 02/18/2022 Screening mammography 24 182504 Z12.31 Constipation 70015436 K5 9.00 Did see WILFREDO Roland RESEARCH DEVELOPMENT MANAGER on 01/14/2023 and did do an xray abd, now is on linzess as per her history Pain of left wrist 06940 21718 71568 M25.532 S/p EMG done by Dr Brand an apt with hand surgery Screening for osteoporosis 847277732 Z13.820 Adult heal th examination 319136299 Z00.00 Screening for disorder 023311912 Z13.9 Skin lesion 51383596 L98 .9 Left anterior leg, small tender lesion noted, refer to Dr Cm [id number] Massimo Porter, PARAG [facility] [place] [address], [place] [address] [place] [address] 06/03/2023 09:34:08 06/03/2023 10:36:29 Pain of toe of left foot 7276947622 59130 M79.675 left 2nd previous surgeryxra ys orderedcon t Supportive shoe gearfollow -up in 3 months Bunion 067116453 M21.61 1 xrays orderedfol low-up x-rays Osteoarthritis 864151447 M19.90 right midfootxra ys orderedfol low-up x-rays Diabetes mellitus 941457 09 E11.9 Patient educated on neuropathy , diabetes, diabetic diet, and daily foot exams. Patient is to check feet daily for new wounds, blisters, redness to prevent infection and ulceration s to the feet. Patient will return to clinic in 3 months for diabetic foot workup. Dystrophia unguium 80741 009 L60.3 Nails 1 through 10 were debrided with sharp mechanical debridemen t without incident. Nails were debrided and greater than 50% length and thickness where needed. Health Concerns Section Related Observation LastModified by Organization Detai ls LastModified Time None Recorded Concern Status LastModified by Organization Details LastModified Time None Recorded Advance Directives Directive N: Payers Encounter Date Sequence Insurance Name Policy Number Policy Erazo Covered Member ID Erazo Member ID Guarantor Name 01/16/2023 1 [place] Katheryn Carolina Scarlett [id number] Katheryn Carolina Scarlett 01/16/2023 2 [employer] (MEDICARE SUPPLEMENT) [employer] Katheryn Carolina Scarlett [id number] Katheryn Pantoja 04/24/2023 1 [place] Katheryn Pantoja [id number] Katheryn Pantoja 04/24/2023 2 [employer] (MEDICARE SUPPLEMENT) INSPCOLBY Pantoja [id number] Katheryn Pantoja 06/03/2023 1 [place] Katheryn Pantoja [id number] Katheryn Pantoja 06/03/2023 2 [employer] (MEDICARE SUPPLEMENT) TATUM Pantoja [id number] Katheryn Pantoja Notes Date Note Type Note Provider Name and Address Organization Details Recorded Time 3 text/html Here to establish carePast Hx:HTNArrhythmiaHypothyr oidismHLDDepressionRevie wed social family and surgical historyHere to establish care and get labsShnathan has had recent abd surgery, is doing well but has mild tenderness, no blood in stool and normal appetite, no N/V or diarrhea or constipationShe is to see the surgeon tomorrow and also is to see cardiology in 11/13 OV 02/10/18:Here for her routine follow upShe states that she has pain in R elbow and roldan feetShe feels that she has burning in both the feet, has been told that she could have the goutShe did see Dr Pham and did have labsShe also states that she has had lateral epicondylitis on the R and now feels that it is back, she is R HD, has a decreased angiographer and also cannot extend her elbow, pain is sharp and hurts more with a angiographer OV 04/07/18ACV:She is here as she is having headaches, she states that she may have knocked the [facility], is to get the new leads this [facility]rusday at [facility] with Dr Cabrera states that she is doing well at this time OV 05/28/18:Here for her apt to discuss her follow up with pulmonary and with cardiologyShe feels that she is doing well otherwise OV 09/24/18:ACV:Here with URI sxC/o sore throatWas seen in the UC and was told she did not have strep throatNo blood in sputum or noseNo fevers or chillsNo N/V or diarrhea OV 12/15/18:Here for her routine aptFeels doing wellHas done some labsURI symptoms for 4-5 days, clear cough, no blood, no blood in noseNo rash, no chest pain or SOB, no wheezingC/o diarrhea no blood in stool+Ve nausea, no vomiting OV 03/16/19:Here for her routine aptFeels well, did do the labsShe does occasionally feel 'sweaty' wants to check 'labs'At this time as per she is now not taking the eliquis, [facility]ACV:Here for a rash under her L axilla, very itchy, no fevers or chills, no N/V or diarrheaNo URI symptoms OV 09/02/19:Here for her routine aptShe feels well at this timeShe did do the labs OV 04/18/2020:Here for her rotuine aptShe has had a recent lead placement done by Dr Caren León c/o occasional 'panic attacks'She has done her labs OV 07/18/2020:Here for her 3 months check upShe states that she is doing well, she did see cardiology Dr Bailon has done her labsShe is here for her MWV also OV 11/16/2020:Here for her routine aptShe luz marias Harjityassine has seen plastic surgeon Dr Funes for a pannulectomy, and is now to get a CT abd/pelvis ordered by him Preet has done the labs on 10/04/2020 OV 02/06/2021:ACV:C/o neck pain since about a weekNo acute trauma to the neck, but has pain with turning the neck side to sideNo N/T or weakness in the roldan UENo parasthesia notedStates that she slept 'wrong on the recliner'Also c/o R elbow pain, unable to extend OV 03/15/2021:Here for post hosp for infection surgical lacerationKatiaw does Gerri is here with her husbandAlso has had labs CMP and A1C thru Dr Foley's office, feels well now, not on any more antibiotics OV 05/15/2021:Here for her routine aptShe feels wellNo recent labsNeeds to do DEXA and mammogram and EGDShe would like a referral again to a surgeon as she feels that her lap band needs to be checked out again OV 06/21/2021:ACV:Here to discuss anxiety and stressStates that she is quite anxious d/t her various medical issuesNot suicidal or homicidal but has had lack of sleep d/t the stressShe states that small things bother herShe denies any depression or anxiety, no paranoia, no hallucinations or delusions, her appetite is very stable, but c/o unable to lose weightShe is adamant she does not want to see a psychiatrist OV 08/14/2021:Here for her routine aptShe is doing wellSyassine is here with her husbandShe did the labs 07/30/2021 for TSH/FT4She is here also for her MWV OV 11/19/2021:Here for her routine aptShe is doing well today but was seen in the ER at [facility] yesterday for a pre syncopal episode, states that she did have a CT head and labs and was d/c home to follow up with her PCPExtensive ROS noted for CVS and CNSShe is here with her Naresh recent labs OV 01/31/2022:TCM: d/c 01/22/2022 [facility] for SBO, s/p resection on 01/15/2022, Dr Neri with her , feels Gerri does state that she has seen a neurologist in [place], she was referred by her armature straightener as there was concern about her having 'small strokes' OV 06/06/2022:Here for her routine apt, she feels well today, did see Dr Hernandez 02/15/2022 neurologist, no recent labs notedShe is here with her OV 06/27/2022:ACV:C/o a spot on the right upper back, since about 3-4 days, it is very itchy and has scabbed over and is also red, no pain, no relief with hydrocortisone creamNo trauma, no fevers or chills, no d/[place]States [place] her and may have given her the 'rash' from the bushes he was in OV 09/17/2022:Here for her f/u apt, she is c/o some abd discomfort, feels bloated, no pain, no blood in stool, no N/V, has noted some constipation, no fevers or chills, normal apetite, she did do the labs Brody Collado MD [address] [facility], [address], [place], [address], [place] [facility] [employer] 01/16/2023 13:11:27 3 text/html Here to establish carePast Hx:HTNArrhythmiaHypothyr oidismHLDDepressionRevie wed social family and surgical historyHere to establish care and get labsLinda has had recent abd surgery, is doing well but has mild tenderness, no blood in stool and normal appetite, no N/V or diarrhea or constipationShe is to see the surgeon tomorrow and also is to see cardiology in 11/13OV 02/10/18:Here for her routine follow upShe states that she has pain in R elbow and roldan feetShe feels that she has burning in both the feet, has been told that she could have the goutShe did see Dr Pham and did have labsShe also states that she has had lateral epicondylitis on the R and now feels that it is back, she is R HD, has a decreased angiographer and also cannot extend her elbow, pain is sharp and hurts more with a gripOV 04/07/18ACV:She is here as she is having headaches, she states that she may have knocked [facility], is to get the new leads this Thrusday at [facility] with Dr Cabrera states that she is doing well at this timeOV 05/28/18:Here for her apt to discuss her follow up with pulmonary and with cardiologyShe feels that she is doing well otherwiseOV 09/24/18:ACV:Here with URI sxC/o sore throatWas seen in the UC and was told she did not have strep throatNo blood in sputum or noseNo fevers or chillsNo N/V or diarrhea OV 12/15/18:Here for her routine aptFeels doing wellHas done some labsURI symptoms for 4-5 days, clear cough, no blood, no blood in noseNo rash, no chest pain or SOB, no wheezingC/o diarrhea no blood in stool+Ve nausea, no vomitingOV 03/16/19:Here for her routine aptFeels well, did do the labsShe does occasionally feel 'sweaty' wants to check 'labs'At this time as per she is now not taking the eliquis, was told not to by [facility] 06/10/19:ACV:Here for a rash under her L axilla, very itchy, no fevers or chills, no N/V or diarrheaNo URI symptoms OV 09/02/19:Here for her routine aptShe feels well at this timeShe did do the labs OV 04/18/2020:Here for her rotuine aptShe has had a recent lead placement done by Dr Caren León c/o occasional 'panic attacks'She has done her labs OV 07/18/2020:Here for her 3 months check upShe states that she is doing well, she did see cardiology Dr Bailon has done her labsShe is here for her MWV alsoOV 11/16/2020:Here for her routine aptShe feels Gerri has seen plastic surgeon Dr Funes for a pannulectomy, and is now to get a CT abd/pelvis ordered by him todayDelbertnathan has done the labs on 10/04/2020OV 02/06/2021:ACV:C/o neck pain since about a weekNo acute trauma to the neck, but has pain with turning the neck side to sideNo N/T or weakness in the roldan UENo parasthesia notedStates that she slept 'wrong on the recliner'Also c/o R elbow pain, unable to extend OV 03/15/2021:Here for post hosp for infection surgical lacerationNow does Harjityassine is here with her husbandAlso has had labs CMP and A1C thru Dr Foley's office, feels well now, not on any more antibioticsOV 05/15/2021:Here for her routine aptShe feels wellNo recent labsNeeds to do DEXA and mammogram and EGDShe would like a referral again to a surgeon as she feels that her lap band needs to be checked out againOV 06/21/2021:ACV:Here to discuss anxiety and stressStates that she is quite anxious d/t her various medical issuesNot suicidal or homicidal but has had lack of sleep d/t the stressShe states that small things bother herShe denies any depression or anxiety, no paranoia, no hallucinations or delusions, her appetite is very stable, but c/o unable to lose weightShe is adamant she does not want to see a psychiatristOV 08/14/2021:Here for her routine aptShe is doing wellShe is here with her husbandShe did the labs 07/30/2021 for TSH/FT4She is here also for her MWVOV 11/19/2021:Here for her routine aptShe is doing well today but was seen in the ER at [facility] yesterday for a pre syncopal episode, states that she did have a CT head and labs and was d/c home to follow up with her PCPExtensive ROS noted for CVS and CNSShe is here with her Naresh recent labsOV 01/31/2022:TCM: d/c 01/22/2022 [facility] for SBO, s/p resection on 01/15/2022, Dr Neri with her , feels Gerri does state that she has seen a neurologist in [place], she was referred by her armature straightener as there was concern about her having 'small strokes'OV 06/06/2022:Here for her routine apt, she feels well today, did see Dr Hernandez 02/15/2022 neurologist, no recent labs notedShe is here with her husbandOV 06/27/2022:ACV:C/o a spot on the right upper back, since about 3-4 days, it is very itchy and has scabbed over and is also red, no pain, no relief with hydrocortisone creamNo trauma, no fevers or chills, no d/cStates [place] sleeping with her and may have given her the 'rash' from the bushes he was inOV 09/17/2022:Here for her f/u apt, she is c/o some abd discomfort, feels bloated, no pain, no blood in stool, no N/V, has noted some constipation, no fevers or chills, normal apetite, she did do the labs OV 04/24/2023: Here for her f/u apt, she is doing well today, she states that she is not taking the linzess as it gave her 'the poops' and her GI did try to lower the dose but she still had the diarrhea, none now, no blood in urine or stool Brody Collado MD [address], [facility] [address], [place], [address], [employer] 08/18/2023 14:50:39 3 text/html . Patient is a 72-year-old female diabetic who presents the office for diabetic foot evaluation. Patient states overall she is doing well. Patient states that she mainly wears sandals due to a hammertoe correction that she had on the left foot. 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 Patient does have significant arthritic changes with callusing on the dorsal 2nd metatarsal phalangeal joint area. Patient states she has injured the toe several times since her procedure which could be the cause of the substantial arthritis but not 100%. Patient states that she also has pain in her right foot secondary to a bunion but does not want to have any surgery secondary to previous surgical issues with the left foot. Patient denies any other pedal complaints. Massimo Porter DPM [address], [facility] [address], [place], [address], [employer] 06/03/2023 10:33:42 OBGyn Episode No OBEpisode recorded.
--- OUTSIDE RECORDS SUMMARY | 2025-01-12 11:22 | XMS_ITS | CONTINUITY OF CARE DOCUMENT ---
Author Name negin princessmikie Address Unknown Organization [facility] Address [address] [address] [facility] [address] [place] [address] Phone [phone] Care Team Providers Care Gang Bore Operator Name Role Phone Juno Foley MD Unavailable [phone] BRODY HAN MD Unavailable BRODY HAN MD Unavailable PROBLEMS Condition Status Date Provider Notes Hyperkalemia active Razia Allan RN Abnormal nuclear stress test active Christiana Cox RN Other symptoms involving cardiovascular system completed - Mk Alejandra MD Hyperlipidemia active Juno Foley MD HTN essential active Juno Foley MD Diverticulitis, colon active Juno Moody Hypothyroidism active Juno Foley MD Preoperative cardiovascular examination active Juno Foley MD Sleep apnea--on C-pap active Juno Moody Abnormal EKG active Juno Foley MD Shortness of breath active Juno Foley MD Cardiomyopathy active Juno Foley MD PVC's active Juno Foley MD Obesity active Mk bennett MD LBBB active Mk bennett MD Mitral regurgitation active Mk Alejandra MD CHF active Mk bennett MD Ventricular tachycardia, nonsustained active Mk Alejandra MD Examination, preoperative cardiovascular completed - Mk Alejandra MD S/P Medtronic (MRI Safe) REVEAL/LinQ completed - Puma Pelaez S/P BiV ICD Biotronik//Genchange BiV ICD Biotronik 12/22/23 ( MRI Safe) active Estefanía Presley new RV lead 04/01/20, old RV lead capped Shortness of breath completed - Mk Alejandra MD Fatigue active Vidal Hu HAND HIDE STRETCHER Nausea/Vomiting active Vidal Hu HAND HIDE STRETCHER Dizziness active Juno Foley MD Ventricular tachycardia, sustained active Mk Alejandra MD Urinary tract infection active Donte Alejandra MD Leg edema, bilateral active Mk Alejandra MD Syncope active Juno Foley MD Diabetes mellitus type II active Juno lott MD Diabetes Mellitus, Type II, controlled w/vascular complications completed - Mk Alejandra MD Panic attack? active Juno Foley MD CAD, nonobstructive disease on cath 2017 active Juno Foley MD Chest pain-type to be determined active Juno Foley MD ENCOUNTERS Date Type Provider Location Encounter Diag nosis 4 - 4 In-person encounter Office Visit Juno Foley MD [facility] Chest pain-type to be determined 8 - 3 In-person encounter Office Visit Mk Alejandra MD [facility] Shortness of breathDiabetes Mellitus, Type II, controlled w/vascular complications 3 - 3 In-person encounter Office Visit Juno Foley MD [facility] 8 - 8 In-person encounter Office Visit Juno Foley MD [facility] 9 - 2 In-person encounter Office Visit Mk Alejandra MD [facility] 5 - 5 In-person encounter Office Visit Mk Alejandra MD [facility] 1 - 1 In-person encounter Office Visit Mk Alejandra MD [facility] 6 - 6 In-person encounter Office Visit Mk Alejandra MD [facility] 0 - 0 In-person encounter Office Visit Juno Foley MD [facility] 5 - 5 In-person encounter Office Visit Juno Foley MD [facility] 1 - 1 In-person encounter Office Visit Juno Foley MD [facility] 4 - 4 In-person encounter Office Visit Juno Foley MD [facility] Panic attack?CAD, nonobstructive disease on cath 2017 4 - 6 In-person encounter Office Visit Juno Foley MD [facility] 0 - 0 In-person encounter Office Visit Juno Foley MD [facility] 7 - 7 In-person encounter Office Visit Juno Foley MD [facility] Panic attack? 0 - 2 In-person encounter Office Visit Juno Foley MD [facility] 4 - 4 In-person encounter Office Visit Juno Foley MD [facility] 4 - 7 In-person encounter Office Visit Juno Foley MD [facility] 2 - 2 In-person encounter Office Visit Juno Foley MD [facility] 6 - 6 In-person encounter Office Visit Juno Foley MD [facility] 4 - 4 In-person encounter Office Visit Juno Foley MD [facility] 6 - 6 In-person encounter Office Visit Mk Alejandra MD [facility] Office S/P Medtronic (MRI Safe) REVEAL/LinQ 3 - 3 In-person encounter Office Visit Mk Alejandra MD [facility] 6 - 6 In-person encounter Office Visit Mk Alejandra MD [facility] 5 - 6 In-person encounter Office Visit Mk Alejandra MD [facility] 3 - 3 In-person encounter Office Visit Mk Alejandra MD [facility] 4 - 5 In-person encounter Office Visit Mk Alejandra MD [facility] 8 - 3 In-person encounter Office Visit Mk Alejandra MD [facility] 1 - 1 In-person encounter Office Visit Mk Alejandra MD [facility] 0 - 0 In-person encounter Office Visit Juno Foley MD [facility] SyncopeDiabetes mellitus type II 8 - 4 In-person encounter Office Visit Juno Foley MD [facility] 0 - 0 In-person encounter Office Visit Mk Alejandra MD [facility] Leg edema, bilateral 6 - 2 In-person encounter Office Visit Mk Alejandra MD [facility] Urinary tract infection 4 - 4 In-person encounter Office Visit Mk Alejandra MD [facility] 9 - 9 In-person encounter Office Visit Mk Alejandra MD [facility] 7 - 7 In-person encounter Office Visit Mk Alejandra MD [facility] 0 - 0 In-person encounter Office Visit Juno Foley MD [facility] 0 - 0 In-person encounter Office Visit Mk Alejandra MD [facility] S/P BiV ICD Biotronik//Genchange BiV ICD Biotronik 12/22/23 ( MRI Safe) 6 - 6 In-person encounter Office Visit Emmy Pham MD [facility] 0 - 5 In-person encounter Office Visit Mk Alejandra MD [facility] Examination, preoperative cardiovascular 1 - 4 In-person encounter Office Visit Mk Alejandra MD [facility] 1 - 1 In-person encounter Office Visit Juno Foley MD [facility] 4 - 4 In-person encounter Office Visit Mk Alejandra MD [facility] Ventricular tachycardia, sustained 1 - 1 In-person encounter Office Visit Juno Foley MD [facility] 0 - 1 In-person encounter Office Visit Juno [facility] Dizziness 6 - 6 In-person encounter Office Visit Mk Alejandra MD [facility] 9 - 9 In-person encounter Office Visit Mk Alejandra MD [facility] 2 - 7 In-person encounter Office Visit Mk Alejandra MD [facility] 4 - 6 In-person encounter Office Visit Edin Suresh DO [facility] 8 - 8 In-person encounter Office Visit Juno Foley MD [facility] 2 - 2 In-person encounter Office Visit Mk Alejandra MD [facility] 1 - 6 In-person encounter Office Visit Mk Alejandra MD [facility] 5 - 5 In-person encounter Office Visit Mk Alejandra MD [facility] FatigueNausea/Vomiting 2 - 2 In-person encounter Office Visit Mk Alejandra MD [facility] 7 - 7 In-person encounter Office Visit Juno Foley MD [facility] 4 - 7 In-person encounter Office Visit Mk Alejandra MD [facility] Other symptoms involving cardiovascular systemObesityLBBBMitral regurgitationCHFVentricular tachycardia, nonsustained 3 - 3 In-person encounter Office Visit Juno Foley MD [facility] CardiomyopathyPVC's 0 - 0 In-person encounter Office Visit Juno Foley MD [facility] HyperlipidemiaHTN essentialDiverticulitis, colonHypothyroidismPreoperative cardiovascular examinationSleep apnea--on C-papAbnormal EKGShortness of breath VITAL SIGNS Date Observation Value Provider Body Mass Index (Ratio) 28.90 kg/m2 Onur Foley MD blood pressure, diastolic 89 mm[Hg] Yasmin Vela blood pressure, systolic 127 mm[Hg] Monica Vela oxygen saturation, oximetry 95 % Destiney Vela pulse rate 103 /min Destiney Vela respiratory rate E&M 12 /min Destiney Vela weight E&M 148 [lb_av] Destiney Vela height E&M 60 [in_i] Destiney Vela blood pressure, cuff size regular Yasmin Vela blood pressure, diastolic -1 mm[Hg] Cailin nkLog blood pressure, systolic 129 mm[Hg] Radha kLogic Body Mass Index (Ratio) 29.49 kg/m2 Barrett Johnston blood pressure, diastolic 79 mm[Hg] Jessica aguirre [facility] blood pressure, systolic 129 mm[Hg] Radha feldman [facility] blood pressure, cuff size regular Jessica yla [facility] pulse rate 82 /min Tania [facility] oxygen saturation, oximetry 96 % Tania [facility] weight E&M 151 [lb_av] Tania [facility] height E&M 60 [in_i] Tania [facility] Body Mass Index (Ratio) 29.88 kg/m2 Onur Foley MD blood pressure, cuff size regular Matheus leal Diana blood pressure, diastolic 82 mm[Hg] Ta bitha Diana blood pressure, systolic 132 mm[Hg] Tab itha Diana oxygen saturation, oximetry 97 % Jordyn Diana pulse rate 75 /min Jordyn Diana weight E&M 153 [lb_av] Jordyn Diana respiratory rate E&M 12 /min Jordyn Diana height E&M 60 [in_i] Jordyn Diana Body Mass Index (Ratio) 29.53 kg/m2 Onur Foley MD pulse rate 74 /min Jordyn Diana blood pressure, cuff size large Ta bitha Diana blood pressure, diastolic 78 mm[Hg] Ta bitha Diana blood pressure, systolic 124 mm[Hg] Tab itha Diana oxygen saturation, oximetry 96 % Jordyn Diana respiratory rate E&M 12 /min Jordyn Diana weight E&M 151.2 [lb_av] Jordyn Diana height E&M 60 [in_i] Jordyn Diana Body Mass Index (Ratio) 29.49 kg/m2 Barrett Johnston blood pressure, cuff size regular Ja rret blood pressure, diastolic 76 mm[Hg] Ja rret blood pressure, systolic 128 mm[Hg] Jar ret pulse rate 62 /min Deshawn y oxygen saturation, oximetry 99 % Deshawn respiratory rate E&M 14 /min Deshawn weight E&M 151 [lb_av] Deshawn y height E&M 60 [in_i] Deshawn y Body Mass Index (Ratio) 29.88 kg/m2 Barrett Huertahenri blood pressure, cuff size regular Ke rri Gruenenfwhite [facility] cent[facility] blood pressure, diastolic 80 mm[Hg] Ke rri Gruenenfelder blood pressure, systolic 112 mm[Hg] Rosa Maria ri Munaelddavid oxygen saturation, oximetry 98 % Qi Mally respiratory rate E&M 12 /min Qi rangel pulse rate 71 /min Qi Akshatnenfchloe [facility] weight E&M 153 [lb_av] Qi Gruenenfe height E&M 60 [in_i] Qi Gruenenfe Body Mass Index (Ratio) 30.27 kg/m2 Onur Foley MD blood pressure, diastolic 72 mm[Hg] Cailin nkLogskip blood pressure, systolic 118 mm[Hg] Radha kLogskip blood pressure, cuff size regular Ja rret blood pressure, diastolic 72 mm[Hg] Ja konradet blood pressure, systolic 118 mm[Hg] La amos oxygen saturation, oximetry 97 % Deshawn respiratory rate E&M 12 /min Deshawn pulse rate 51 /min Deshawn weight E&M 155 [lb_av] Deshawn y height E&M 60 [in_i] Deshawn y Body Mass Index (Ratio) 28.82 kg/m2 Onur Foley MD blood pressure, diastolic 79 mm[Hg] St summer Wood blood pressure, systolic 120 mm[Hg] Flor Wood oxygen saturation, oximetry 98 % Karime Wood pulse rate 66 /min Karime Wood respiratory rate E&M 18 /min Karime fortune weight E&M 147.6 [lb_av] Karime Wood height E&M 60 [in_i] Karime Wood Body Mass Index (Ratio) 28.32 kg/m2 Onur Foley MD blood pressure, diastolic 78 mm[Hg] Ri raj Neely blood pressure, systolic 114 mm[Hg] Arsalan jennifersabino Chin blood pressure, cuff size regular Ri raj Jeffersonerson oxygen saturation, oximetry 98 % Tracee Neely respiratory rate E&M 16 /min Anjel Neely pulse rate 66 /min Tracee Lidavid son weight E&M 145 [lb_av] Tracee Park son height E&M 60 [in_i] Traceebasilia Park son Body Mass Index (Ratio) 27.73 kg/m2 Onur Foley MD blood pressure, diastolic 59 mm[Hg] Gaston Damon blood pressure, systolic 101 mm[Hg] Blake Damon oxygen saturation, oximetry 97 % Dani Damon respiratory rate E&M 18 /min Devon Damon pulse rate 76 /min Dani ying weight E&M 142 [lb_av] Dani ying blood pressure, cuff size regular aGston Damon height E&M 60 [in_i] Dani ying Body Mass Index (Ratio) 28.71 kg/m2 Eloisa petra Puhse blood pressure, diastolic 78 mm[Hg] Sa ra Crawford blood pressure, systolic 135 mm[Hg] Jane a Crawford oxygen saturation, oximetry 96 % Janelle Crawford pulse rate 73 /min Janelle Crawford respiratory rate E&M 16 /min Janelle Si ms blood pressure, cuff size regular Sa ra Crawford weight E&M 147 [lb_av] Janelle Crawford height E&M 60 [in_i] Janelle Crawford Body Mass Index (Ratio) 28.51 kg/m2 Onur Foley MD blood pressure, cuff size regular Sa ra Crawford blood pressure, diastolic 79 mm[Hg] Sa ra Crawford blood pressure, systolic 110 mm[Hg] Jane a Crawford oxygen saturation, oximetry 95 % Janelle Crawford respiratory rate E&M 18 /min Janelle Si ms pulse rate 84 /min Janelle Crawford weight E&M 146 [lb_av] Janelle Crawford height E&M 60 [in_i] Janelle Crawford Body Mass Index (Ratio) 30.39 kg/m2 Onur Foley MD blood pressure, diastolic 80 mm[Hg] Destiny Velasco blood pressure, systolic 130 mm[Hg] Mindy Velasco oxygen saturation, oximetry 97 % Amadeo Velasco respiratory rate E&M 16 /min Kaia Velasco pulse rate 71 /min Amadeo foster weight E&M 155.6 [lb_av] Amadeo benedict height E&M 60 [in_i] Amadeo foster Body Mass Index (Ratio) 28.90 kg/m2 Onur Foley MD blood pressure, diastolic 70 mm[Hg] Cailin nkLogskip blood pressure, systolic 129 mm[Hg] Radha Camposogskip blood pressure, diastolic 70 mm[Hg] Rh onyassine Bocanegra blood pressure, systolic 129 mm[Hg] Rho ndabby Bocanegra oxygen saturation, oximetry 98 % Vanessa Bocanegra pulse rate 68 /min Vanessa Bocanegra respiratory rate E&M 16 /min Vanessa Bocanegra weight E&M 148 [lb_av] Vanessa Bocanegra blood pressure, cuff size regular Rh onyassine Bocanegra height E&M 60 [in_i] Vanessaabby Bocanegra Body Mass Index (Ratio) 30.46 kg/m2 Donte Alejandra MD blood pressure, cuff size regular Cy ron Recio blood pressure, diastolic 70 mm[Hg] Cy ron Recio blood pressure, systolic 102 mm[Hg] Nneka lucila Recio pulse rate 72 /min Natalia mathews respiratory rate E&M 16 /min Natalia Recio oxygen saturation, oximetry 98 % Natalia Recio weight E&M 156 [lb_av] Natalia mathews height E&M 60 [in_i] Natalia Amaya l Body Mass Index (Ratio) 29.60 kg/m2 Onur Foley MD blood pressure, diastolic 60 mm[Hg] Us duyen Foley MD blood pressure, systolic 108 mm[Hg] Aarti Foley MD pulse rate, standing 86 /min Juno batres MD respiratory rate E&M 16 /min Juno batres MD oxygen saturation, oximetry 97 % Juno Foley MD weight E&M 151.6 [lb_av] Juno Moody height E&M 60 [in_i] Juno Foley MD Body Mass Index (Ratio) 32.81 kg/m2 Onur Foley MD blood pressure, diastolic 60 mm[Hg] Destiny Velasco blood pressure, systolic 110 mm[Hg] Mindy Velasco oxygen saturation, oximetry 97 % Amadeo Velasco respiratory rate E&M 16 /min Kaia Velasco pulse rate 71 /min Amadeo foster weight E&M 168 [lb_av] Amadeo foster height E&M 60 [in_i] Amadeo foster Body Mass Index (Ratio) 34.84 kg/m2 Onur Foley MD blood pressure, diastolic 60 mm[Hg] Destiny Velasco blood pressure, systolic 108 mm[Hg] Mindy Velasco oxygen saturation, oximetry 98 % Amadeo Velasco respiratory rate E&M 18 /min Kaia Velasco pulse rate 70 /min Amadeo foster weight E&M 178.4 [lb_av] Amadeo benedict height E&M 60 [in_i] Amadeo foster Body Mass Index (Ratio) 34.80 kg/m2 destiny wendy Foley MD blood pressure, diastolic 70 mm[Hg] Destiny Velasco blood pressure, systolic 136 mm[Hg] Mindy Velasco oxygen saturation, oximetry 98 % Amadeo Velasco respiratory rate E&M 18 /min Kaia Velasco pulse rate 71 /min Amadeo foster weight E&M 178.2 [lb_av] Amadeo benedict height E&M 60 [in_i] Amadeo foster Body Mass Index (Ratio) 34.80 kg/m2 Vinh gerardo Benigno blood pressure, diastolic 70 mm[Hg] Destiny Velasco blood pressure, systolic 122 mm[Hg] Mindy Velasco oxygen saturation, oximetry 97 % Amadeo Velasco respiratory rate E&M 18 /min Kaia Velasco pulse rate 72 /min Amadeo foster weight E&M 178.2 [lb_av] Amadeo benedict height E&M 60 [in_i] Amadeo foster Body Mass Index (Ratio) 36.32 kg/m2 Jord gerardo Pelaez blood pressure, diastolic 71 mm[Hg] Cy ron Recio blood pressure, systolic 118 mm[Hg] Nneka lucila Recio blood pressure, cuff size regular Cy ron Recio pulse rate 749 /min Natalia mathews oxygen saturation, oximetry 97 % Natalia Recio respiratory rate E&M 16 /min Natalia Recio weight E&M 186 [lb_av] Natalia Amaya l height E&M 60 [in_i] Natalia Amaya l Body Mass Index (Ratio) 36.52 kg/m2 Jord en Benigno blood pressure, diastolic 60 mm[Hg] astity Donald blood pressure, systolic 118 mm[Hg] Laura stity Donald oxygen saturation, oximetry 97 % Chastity Donald pulse rate 90 /min Chastity Donald respiratory rate E&M 16 /min Chastit y Donald weight E&M 187 [lb_av] Chastity Donald height E&M 60 [in_i] Lauraity Donald Body Mass Index (Ratio) 36.32 kg/m2 Jord gerardo Benigno blood pressure, cuff size regular Kr isty Soy blood pressure, diastolic 90 mm[Hg] Kr isty Soy blood pressure, systolic 120 mm[Hg] Kri stdebbie [place] pulse rate 78 /min Luda [place] oxygen saturation, oximetry 97 % Luda Soy respiratory rate E&M 18 /min Luda [place] weight E&M 186 [lb_av] Luda Soy height E&M 60 [in_i] Luda [place] Body Mass Index (Ratio) 38.66 kg/m2 Jord en Benigno blood pressure, diastolic 80 mm[Hg] David Rosario blood pressure, systolic 126 mm[Hg] Franki Rosario oxygen saturation, oximetry 95 % Maryann Rosario pulse rate 73 /min Maryann Galarza weight E&M 198 [lb_av] Maryann Galarza height E&M 60 [in_i] Maryann aGlarza Body Mass Index (Ratio) 39.25 kg/m2 Donte Alejandra MD blood pressure, diastolic 88 mm[Hg] David Rosario blood pressure, systolic 126 mm[Hg] Franki Rosario oxygen saturation, oximetry 97 % Maryann Rosario pulse rate 104 /min Maryann Galarza weight E&M 201 [lb_av] Maryann Galarza height E&M 60 [in_i] Maryann Galarza Body Mass Index (Ratio) 40.42 kg/m2 Donte Alejandra MD blood pressure, diastolic 86 mm[Hg] David Rosario blood pressure, systolic 128 mm[Hg] Franki Rosario oxygen saturation, oximetry 98 % Maryann Rosario pulse rate 69 /min Maryann Galarza weight E&M 207 [lb_av] Maryann Galarza height E&M 60 [in_i] Maryann Galarza Body Mass Index (Ratio) 41.79 kg/m2 Onur Foley MD blood pressure, diastolic, left arm 6 mm[ Hg] blood pressure, systolic, left arm 100 mm [Hg] blood pressure, diastolic, right arm 60 m m[Hg] blood pressure, systolic, right arm 100 m m[Hg] blood pressure, diastolic 60 mm[Hg] Ki ll blood pressure, systolic 100 mm[Hg] Sue khan Morgan oxygen saturation, oximetry 97 % respiratory rate E&M 16 /min pulse rate 61 /min weight E&M 214 [lb_av] height E&M 60 [in_i] Andrea Morgan Body Mass Index (Ratio) 41.59 kg/m2 Onur Foley MD blood pressure, cuff size large Ke rri Gruenenfelder blood pressure, diastolic 80 mm[Hg] Ke rri Gruenenfelder blood pressure, systolic 150 mm[Hg] Ker ri Gruenenfelder oxygen saturation, oximetry 98 % Qi Gruenenfelder respiratory rate E&M 18 /min Qi G ruenenfelder pulse rate 65 /min Qi Gruenenfe lder weight E&M 213 [lb_av] Qi Gruenenfe lder height E&M 60 [in_i] Qi Gruenenfe lder Body Mass Index (Ratio) 41.40 kg/m2 Willy Stoveron blood pressure, cuff size large Ke rri Gruenenfelder blood pressure, diastolic 80 mm[Hg] Ke rri Gruenenfelder blood pressure, systolic 120 mm[Hg] Ker ri Gruenenfelder oxygen saturation, oximetry 97 % Qi Gruenenfelder respiratory rate E&M 20 /min Qi G ruenenfelder pulse rate 63 /min Qi Gruenenfe lder weight E&M 212 [lb_av] Qi Gruenenfe lder height E&M 60 [in_i] Qi Gruenenfe lder Body Mass Index (Ratio) 40.62 kg/m2 Donte Alejandra MD blood pressure, cuff size large Ke rri Gruenenfelder blood pressure, diastolic 70 mm[Hg] Ke rri Gruenenfelder blood pressure, systolic 130 mm[Hg] Ker ri Gruenenfelder oxygen saturation, oximetry 97 % Qi Gruenenfbernarder respiratory rate E&M 20 /min Qi G ruenenfelder pulse rate 70 /min Qi Gruenenfe lder weight E&M 208 [lb_av] Qi Gruenenfe lder height E&M 60 [in_i] Qi Gruenenfe lder Body Mass Index (Ratio) 41.05 kg/m2 Willy fernandez Raphael blood pressure, diastolic 75 mm[Hg] Destiny Velasco blood pressure, systolic 127 mm[Hg] Mindy Velasco oxygen saturation, oximetry 97 % Amadeo Velasco respiratory rate E&M 18 /min Kaia Velasco pulse rate 70 /min Amadeo Cain nson weight E&M 210.2 [lb_av] Amadeo esqeudaon height E&M 60 [in_i] Amadeo Cain on Body Mass Index (Ratio) 40.03 kg/m2 Willy fernandez Raphael blood pressure, cuff size large Ke rri Gruenenfelder blood pressure, diastolic 80 mm[Hg] Ke rri Gruenenfelder blood pressure, systolic 130 mm[Hg] Rosa Maria ri Akshatnekareener oxygen saturation, oximetry 97 % Qi Akshatnenfbernarder respiratory rate E&M 20 /min Qi G victor hugoenenfelder pulse rate 67 /min Qi Gruenenfe lder weight E&M 205 [lb_av] Qi Gruenenfe lder height E&M 60 [in_i] Qi Gruenenfe lder Body Mass Index (Ratio) 40.03 kg/m2 Willy Raphael blood pressure, cuff size large Ke rri Gruenenfelder blood pressure, diastolic 70 mm[Hg] Ke rri Gruenenfelder blood pressure, systolic 120 mm[Hg] Ker ri Gruenenfelder oxygen saturation, oximetry 97 % Qi Gruenenfelder respiratory rate E&M 20 /min Qi G ruenenfelder pulse rate 70 /min Qi Gruenenfe lder weight E&M 205 [lb_av] Qi Gruenenfe lder height E&M 60 [in_i] Qi Gruenenfe lder Body Mass Index (Ratio) 40.23 kg/m2 Onur Foley MD blood pressure, cuff size large Ke rri Gruenenfelder blood pressure, diastolic 80 mm[Hg] Ke rri Gruenenfelder blood pressure, systolic 110 mm[Hg] Ker ri Gruenenfelder oxygen saturation, oximetry 97 % Qi Gruenenfelder respiratory rate E&M 18 /min Qi G ruenenfelder pulse rate 68 /min Qi Gruenenfe lder weight E&M 206 [lb_av] Qi Gruenenfe lder height E&M 60 [in_i] Qi Gruenenfe lder Body Mass Index (Ratio) 39.45 kg/m2 [address] blood pressure, cuff size large Ke rri Gruenenfelder blood pressure, diastolic 80 mm[Hg] Ke rri Gruenenfelder blood pressure, systolic 120 mm[Hg] Ker ri Gruenenfelder oxygen saturation, oximetry 98 % Qi Gruenenfelder respiratory rate E&M 20 /min Qi G ruenenfelder pulse rate 70 /min Qi Gruenenfe lder weight E&M 202 [lb_av] Qi Landaverdeberenice er height E&M 60 [in_i] Qi Landaverdelitzypedrokhushi er Body Mass Index (Ratio) 39.84 kg/m2 Chivo Pham MD pulse rate 68 /min Jes[facility]s [facility] oxygen saturation, oximetry 97 % [facility]s [facility] blood pressure, diastolic 70 mm[Hg] Isael herrera [facility] blood pressure, systolic 112 mm[Hg] Sujata mariel [facility] respiratory rate E&M 16 /min Jesús [facility] weight E&M 204 [lb_av] [facility] height E&M 60 [in_i] [facility] Body Mass Index (Ratio) 40.03 kg/m2 Cuauhtemoc hammraymon Quinten blood pressure, diastolic 60 mm[Hg] Ki [facility] blood [facility], systolic 112 mm[Hg] Sue khan [place] oxygen saturation, oximetry 98 % [facility] respiratory rate E&M 16 /min [facility] pulse rate 73 /min [facility] weight E&M 205 [lb_av] Andrea Morgan height E&M 60 [in_i] [facility] [place] Body Mass Index (Ratio) 39.84 kg/m2 Yony [address] blood pressure, diastolic 60 mm[Hg] Da justin Graham blood pressure, systolic 102 mm[Hg] Dac ia Graham oxygen saturation, oximetry 93 % Keri Graham respiratory rate E&M 16 /min Keri V oss pulse rate 71 /min Keri Graham weight E&M 204 [lb_av] Keri Graham height E&M 60 [in_i] Keri Graham Body Mass Index (Ratio) 39.84 kg/m2 Benigno Plurkash blood pressure, diastolic 80 mm[Hg] Julien Olivier blood pressure, systolic 116 mm[Hg] Demetria Olivier respiratory rate E&M 17 /min Luda Ngoby blood pressure, cuff size regular Julien Olivier weight E&M 204 [lb_av] Luda Ngoby pulse rate 72 /min Luda Ngoby oxygen saturation, oximetry 98 % Luda Ngoby height E&M 60 [in_i] Luda [place] Body Mass Index (Ratio) 40.62 kg/m2 Donte Alejandra MD blood pressure, diastolic 64 mm[Hg] Destiny Gonzalez'Bunny blood pressure, systolic 118 mm[Hg] Mindy edwards O'Bunny oxygen saturation, oximetry 97 % Shanelle O'Bunny respiratory rate E&M 16 /min Shanelle O'Bunny pulse rate 70 /min Shanelle O'Bunny weight E&M 208 [lb_av] Shanelle O'Bunny height E&M 60 [in_i] Shanelle O'Bunny Body Mass Index (Ratio) 40.85 kg/m2 Onur Foley MD blood pressure, diastolic 65 mm[Hg] Destiny Velasco blood pressure, systolic 106 mm[Hg] Mindy Velasco oxygen saturation, oximetry 96 % Amadeo Velasco respiratory rate E&M 18 /min Kaia Velasco pulse rate 69 /min Amadeo foster weight E&M 209.2 [lb_av] Amadeo benedict height E&M 60 [in_i] Amadeo foster Body Mass Index (Ratio) 40.03 kg/m2 Onur Foley MD blood pressure, diastolic 60 mm[Hg] Destiny abraham OBunny blood pressure, systolic 92 mm[Hg] Mindy edwards OBunny oxygen saturation, oximetry 95 % Shanelle respiratory rate E&M 16 /min Shanelle OBunny pulse rate 70 /min Shanelle OBunny weight E&M 205 [lb_av] Shanelle OBunny height E&M 60 [in_i] Shanelle OBunny Body Mass Index (Ratio) 40.23 kg/m2 Donte Alejandra MD blood pressure, diastolic 72 mm[Hg] Da justin Graham blood pressure, systolic 126 mm[Hg] Dac ia Graham oxygen saturation, oximetry 95 % Keri Graham respiratory rate E&M 16 /min Keri V oss pulse rate 71 /min Keri Graham weight E&M 206 [lb_av] Keri Graham height E&M 60 [in_i] Keri Graham Body Mass Index (Ratio) 39.84 kg/m2 Donte Alejandra MD blood pressure, diastolic 70 mm[Hg] [facility], systolic 140 mm[Hg] Sue bill [place] oxygen saturation, oximetry 93 % [facility] E&M 16 /min Andrea Morgan pulse rate 16 /min Westover Morgan weight E&M 204 [lb_av] Westover Morgan height E&M 60 [in_i] Westover Morgan Body Mass Index (Ratio) 40.03 kg/m2 Donte Alejandra MD blood pressure, cuff size regular Ke don Bal blood pressure, diastolic 72 mm[Hg] Ke rrrazia Bal blood pressure, systolic 118 mm[Hg] Rosa Maria Bal oxygen saturation, oximetry 98 % Qi Bal respiratory rate E&M 18 /min Qi Gabriel victor hugokamber[facility]arddavid pulse rate 70 /min Qi Flores er weight E&M 205 [lb_av] Qi Flores lder height E&M 60 [in_i] Qi Flores lder Body Mass Index (Ratio) 38.08 kg/m2 Mee Martini NP blood pressure, diastolic 70 mm[Hg] Julien Ngoby blood pressure, systolic 110 mm[Hg] Demetria Ngoby oxygen saturation, oximetry 98 % Luda Ngoby respiratory rate E&M 17 /min Luda Soy pulse rate 70 /min Luda [place] weight E&M 195 [lb_av] Luda [place] blood pressure, cuff size regular Julien Ngoby height E&M 60 [in_i] Luda Ngoby Body Mass Index (Ratio) 38.47 kg/m2 Onur Foley MD blood pressure, diastolic 68 mm[Hg] Francisco chaidez Morgan blood pressure, systolic 112 mm[Hg] Sue Riberaam oxygen saturation, oximetry 98 % [facility] /min Westover Morgan pulse rate 74 /min Westover Morgan weight E&M 197 [lb_av] Westover Morgan height E&M 60 [in_i] Westover Morgan Body Mass Index (Ratio) 37.49 kg/m2 Donte Alejandra MD respiratory rate E&M 19 /min Marie Burnett blood pressure, diastolic 70 mm[Hg] Matheus Burnett blood pressure, systolic 112 mm[Hg] Shahram Burnett pulse rate 75 /min Marie Burnett oxygen saturation, oximetry 98 % Marie Burnett blood pressure, cuff size regular Matheus Burnett weight E&M 192 [lb_av] Marie Burnett height E&M 60 [in_i] Marie Burnett Body Mass Index (Ratio) 38.66 kg/m2 Donte Alejandra MD blood pressure, diastolic, standing 70 mm [Hg] Qi Bal blood pressure, systolic, standing 130 mm [Hg] Qi Bal oxygen saturation, oximetry 94 % Qi Bal respiratory rate E&M 18 /min Qi rangel pulse rate 74 /min Qi delgado weight E&M 198 [lb_av] Qi delgado height E&M 60 [in_i] Qi delgado Body Mass Index (Ratio) 37.53 kg/m2 Donte Alejandra MD blood pressure, diastolic 62 mm[Hg] Prabhjot [place] blood pressure, systolic 116 mm[Hg] Wayne [place] blood pressure, cuff size regular Te kingsley [place] oxygen saturation, oximetry 98 % Nidhi [place] respiratory rate E&M 18 /min Nidhi [place] pulse rate 70 /min Nidhi [place] weight E&M 192.2 [lb_av] Nidhi lewis Body Mass Index (Ratio) 37.02 kg/m2 Donte Alejandra MD blood pressure, diastolic 78 mm[Hg] Destiny Velasco blood pressure, systolic 125 mm[Hg] Mindy Velasco oxygen saturation, oximetry 96 % Amadeo Velasco respiratory rate E&M 18 /min Kaia Velasco pulse rate 70 /min Amadeo foster weight E&M 189.6 [lb_av] Amadeo benedict height E&M 60 [in_i] Amadeo foster Body Mass Index (Ratio) 37.10 kg/m2 Onur Foley MD blood pressure, cuff size regular Rajinder don Bal blood pressure, diastolic 72 mm[Hg] Rajinder Bal blood pressure, systolic 113 mm[Hg] Rosa Maria Bal oxygen saturation, oximetry 97 % Qi Bal respiratory rate E&M 16 /min Qi rangel pulse rate 74 /min Qi Flores [facility] weight E&M 190 [lb_av] Qi Flores [facility] height E&M 60 [in_i] Qi Flores [facility] Body Mass Index (Ratio) 38.66 kg/m2 Benigno [place] weight E&M 198 [lb_av] Mk bennett MD height E&M 60 [in_i] Osmin lucia blood pressure, resting Yes Benigno [place] blood pressure, cuff size regular Gaston Benitez blood pressure, diastolic 72 mm[Hg] Gaston Benitez blood pressure, systolic 112 mm[Hg] Cira Benitez oxygen saturation, oximetry 95 % Erinn Benitez respiratory rate E&M 16 /min Erinn Benitez pulse rate 73 /min Erinn Benitez Body Mass Index (Ratio) 38.82 kg/m2 Onur Foley MD blood pressure, diastolic 89 mm[Hg] Destiny eleaazrBasiliawendy Rod blood pressure, systolic 138 mm[Hg] Mindy Velasco oxygen saturation, oximetry 98 % Amadeo Velasco respiratory rate E&M 18 /min Kaia Velasco pulse rate 94 /min Amadeo foster weight E&M 198.8 [lb_av] Amadeo benedict height E&M 60 [in_i] Amadeo foster Body Mass Index (Ratio) 38.43 kg/m2 Onur Foley MD blood pressure, diastolic 88 mm[Hg] Destiny Velasco blood pressure, systolic 139 mm[Hg] Mindy Velasco oxygen saturation, oximetry 95 % Amadeo Rod respiratory rate E&M 18 /min Kaia Velasco pulse rate 55 /min Amadeo foster weight E&M 196.8 [lb_av] Amadeo benedict height E&M 60 [in_i] Amadeo foster ALLERGIES Allergy Name Onset Date Reaction Criticality Status DEMEROL Low Criticality active CODEINE Low Criticality active RESULTS Date Observation Value Provider Reference Range Interpretation Location pro brain natriuretic peptide 375 pg/mL [facility] 0-301 High hemoglobin A1C, blood, as % of total hemoglobin 5.5 % [facility] 4.8-5.6 alanine aminotransferase (SGPT), serum 7 1/L [facility] 0-32 aspartate aminotransferase (SGOT), serum 24 1/L [facility] 0-40 alkaline phosphatase, serum 95 1/L [facility] 39-117 bilirubin, serum, total 0.4 mg/dL [facility] 0.0-1.2 albumin/globulin ratio, serum 1.4 [facility] 1.2-2.2 globulin, serum 2.6 [facility] 1.5-4.5 albumin, serum 3.7 g/dL [facility] 3.8-4.8 Low protein, total, serum 6.3 g/dL [facility] 6.0-8.5 calcium, serum 9.7 mg/dL [facility] 8.7-10.3 carbon dioxide, venous blood 28 mmol/L [facility] 20-29 chloride, serum 103 mmol/L [facility] 96-106 potassium, serum 4.6 mmol/L [facility] 3.5-5.2 sodium, serum 141 mmol/L [facility] 719-610 1997/05 /15 urea nitrogen/creatinine ratio, serum 20 [facility] 12-28 eGFR if 74 mL/min/{1.73 _m2} [facility] >59 eGFR if not 64 mL/min/{1.73 _m2} [facility] >59 creatinine, serum 0.91 mg/dL [facility] 0.57-1.00 urea nitrogen, blood 18 mg/dL [facility] 8-27 blood glucose, random 108 mg/dL [facility] 65-99 High alanine aminotransferase (SGPT), serum 7 1/L [facility] 0-32 aspartate aminotransferase (SGOT), serum 29 1/L [facility] 0-40 alkaline phosphatase, serum 40 1/L [facility] 39-117 bilirubin, serum, total 0.4 mg/dL [facility] 0.0-1.2 albumin/globulin ratio, serum 2.0 [facility] 1.2-2.2 globulin, serum 2.1 [facility] 1.5-4.5 albumin, serum 4.3 g/dL [facility] 3.8-4.8 protein, total, serum 6.4 g/dL [facility] 6.0-8.5 calcium, serum 9.8 mg/dL [facility] 8.7-10.3 carbon dioxide, venous blood 26 mmol/L [facility] 20-29 chloride, serum 107 mmol/L [facility] 96-106 High potassium, serum 4.4 mmol/L [facility] 3.5-5.2 sodium, serum 144 mmol/L [facility] 524-729 6929/10 /24 urea nitrogen/creatinine ratio, serum 18 [facility] 12-28 eGFR if 52 mL/min/{1.73 _m2} [facility] >59 Low eGFR if not 45 mL/min/{1.73 _m2} [facility] >59 Low creatinine, serum 1.22 mg/dL [facility] 0.57-1.00 High urea nitrogen, blood 22 mg/dL [facility] 8-27 blood glucose, random 135 mg/dL [facility] 65-99 High activated partial thromboplastin time (aPTT) 28 s [facility] 24-33 prothrombin time (patient) 10.8 s [facility] 9.1-12.0 international normalized ratio (INR) 1.0 [facility] 0.9-1.2 bacteria, urine microscopy Few [facility] None seen/Few epithelial cells, urine 0-10 [facility] 0 - 10 RBC, Urine 0-2 /hpf [facility] 0 - 2 WBC urine on microscopy 0-5 /hpf [facility] 0 - 5 urinalysis, microscopic examination See report [facility] nitrate, urine Negative [facility] Negative urobilinogen, urine, semiquantitative (dipstick) 0.2 [facility] 0.2-1.0 bilirubin, urine Negative [facility] Negative hemoglobin, urine, by dipstick Negative [facility] Negative ketones, urine, by test strip Negative [facility] Negative glucose, urine Negative [facility] Negative protein, urine, semiquantitative (dipstick) Negative [facility] Negative/Tr constantine leukocyte esterase, urine, by dipstick Negative [facility] Negative appearance, urine Clear [facility] Clear urine color Yellow [facility] Yellow pH, urine, semiquantitative 7.0 [facility] 5.0-7.5 specific gravity, body fluid 1.018 [facility] 1.005-1.030 basophil count, absolute 0.1 x10E3/uL [facility] 0.0-0.2 Eosinophil Absolute Count 0.3 X10E3/UL [facility] 0.0-0.4 monocyte count, blood, automated 0.8 X10E3/UL [facility] 0.1-0.9 lymphocyte count, blood, automated 1.4 X10E3/UL [facility] 0.7-3.1 Absolute Neutrophils 3.2 X10E3/UL [facility] 1.4-7.0 basophils as percent of blood leukocytes 1 % [facility] Not Estab. eosinophils as percent of blood leukocytes 5 % [facility] Not Estab. monocytes as percent of blood leukocytes 14 % [facility] Not Estab. lymphocytes as percent of blood leukocytes 24 % [facility] Not Estab. neutrophils as percent of blood leukocytes 56 % [facility] Not Estab. platelet count 155 X10E3/UL [facility] 233-649 0461/10 /24 red blood cell distribution width 12.7 % [facility] 11.7-15.4 mean corpuscular hemoglobin concentration, RBC 32.9 G/DL [facility] 31.5-35.7 mean corpuscular hemoglobin, RBC 31.3 pg [facility] 26.6-33.0 mean corpuscular volume, RBC 95 fL [facility] 79-97 hematocrit, blood 42.8 % [facility] 34.0-46.6 hemoglobin, blood 14.1 g/dL [facility] 11.1-15.9 erythrocyte (RBC) count 4.50 X10E6/UL [facility] 3.77-5.28 leukocyte count, blood 5.8 X10E3/UL [facility] 3.4-10.8 calcium, serum 10.1 mg/dL [facility] 8.7-10.3 carbon dioxide, venous blood 26 mmol/L [facility] 20-29 chloride, serum 104 mmol/L [facility] 96-106 potassium, serum 5.7 mmol/L [facility] 3.5-5.2 High sodium, serum 145 mmol/L [facility] 134-144 High urea nitrogen/creatinine ratio, serum 17 [facility] 12-28 eGFR if 43 mL/min/{1.73 _m2} [facility] >59 Low eGFR if not 37 mL/min/{1.73 _m2} [facility] >59 Low creatinine, serum 1.43 mg/dL [facility] 0.57-1.00 High urea nitrogen, blood 24 mg/dL [facility] 8-27 blood glucose, random 140 mg/dL [facility] 65-99 High activated partial thromboplastin time (aPTT) 28 s [facility] 24-33 prothrombin time (patient) 11.3 s [facility] 9.1-12.0 international normalized ratio (INR) 1.1 [facility] 0.8-1.2 D-dimer quantitative mcg/mL 0.45 MG/L FEU [facility] 0.00-0.49 lipoprotein, beta, serum, point, quantitative, calculated 116 mg/dL [facility] 0-99 High very low density lipoproteins 35 mg/dL [facility] 5-40 HDL cholesterol, serum 60 mg/dL [facility] >39 triglyceride, serum, random 175 mg/dL [facility] 0-149 High cholesterol, serum 211 mg/dL [facility] 100-199 High alanine aminotransferase (SGPT), serum 9 1/L [facility] 0-32 aspartate aminotransferase (SGOT), serum 23 1/L [facility] 0-40 alkaline phosphatase, serum 46 1/L [facility] 39-117 bilirubin, serum, total 0.4 mg/dL [facility] 0.0-1.2 albumin/globulin ratio, serum 2.2 [facility] 1.2-2.2 globulin, serum 2.1 [facility] 1.5-4.5 albumin, serum 4.7 g/dL [facility] 3.6-4.8 protein, total, serum 6.8 g/dL [facility] 6.0-8.5 calcium, serum 10.2 mg/dL [facility] 8.7-10.3 carbon dioxide, venous blood 26 mmol/L [facility] 20-29 chloride, serum 104 mmol/L [facility] 96-106 potassium, serum 5.5 mmol/L [facility] 3.5-5.2 High sodium, serum 144 mmol/L [facility] [phone]/01 /31 urea nitrogen/creatinine ratio, serum 17 [facility] 12-28 eGFR if 46 mL/min/{1.73 _m2} [facility] >59 Low eGFR if not 40 mL/min/{1.73 _m2} [facility] >59 Low creatinine, serum 1.36 mg/dL [facility] 0.57-1.00 High urea nitrogen, blood 23 mg/dL [facility] 8-27 blood glucose, random 106 mg/dL [facility] 65-99 High bacteria, urine microscopy Few [facility] None seen/Few epithelial cells, urine 0-10 [facility] 0 - 10 RBC, Urine 0-2 /hpf [facility] 0 - 2 WBC urine on microscopy 0-5 /hpf [facility] 0 - 5 urinalysis, microscopic examination See report [facility] nitrate, urine Negative [facility] Negative urobilinogen, urine, semiquantitative (dipstick) 0.2 [facility] 0.2-1.0 bilirubin, urine Negative [facility] Negative hemoglobin, urine, by dipstick Negative [facility] Negative ketones, urine, by test strip Negative [facility] Negative glucose, urine Negative [facility] Negative protein, urine, semiquantitative (dipstick) Negative [facility] Negative/Tr constantine leukocyte esterase, urine, by dipstick Negative [facility] Negative appearance, urine Clear [facility] Clear urine color Yellow [facility] Yellow pH, urine, semiquantitative 7.0 [facility] 5.0-7.5 specific gravity, body fluid 1.017 [facility] 1.005-1.030 coagulation managed by William Cordova RN international normalized ratio (INR) 1.7 Keri [place] Normal prothrombin time (patient) 20.7 s Keri Stevenson activated partial thromboplastin time (aPTT) 26 s [facility] 24-33 calcium, serum 9.7 mg/dL [facility] 8.7-10.3 carbon dioxide, venous blood 24 mmol/L [facility] 20-29 chloride, serum 103 mmol/L [facility] 96-106 potassium, serum 4.5 mmol/L [facility] 3.5-5.2 sodium, serum 141 mmol/L [facility] 370-469 9301/11 /28 urea nitrogen/creatinine ratio, serum 18 [facility] 12-28 eGFR if 43 mL/min/{1.73 _m2} [facility] >59 Low eGFR if not 37 mL/min/{1.73 _m2} [facility] >59 Low creatinine, serum 1.46 mg/dL [facility] 0.57-1.00 High urea nitrogen, blood 27 mg/dL [facility] 8-27 blood glucose, random 121 mg/dL [facility] 65-99 High basophil count, absolute 0.1 x10E3/uL [facility] 0.0-0.2 Eosinophil Absolute Count 0.3 X10E3/UL [facility] 0.0-0.4 monocyte count, blood, automated 0.7 X10E3/UL [facility] 0.1-0.9 lymphocyte count, blood, automated 1.9 X10E3/UL [facility] 0.7-3.1 Absolute Neutrophils 3.5 X10E3/UL [facility] 1.4-7.0 basophils as percent of blood leukocytes 1 % [facility] Not Estab. eosinophils as percent of blood leukocytes 5 % [facility] Not Estab. monocytes as percent of blood leukocytes 11 % [facility] Not Estab. lymphocytes as percent of blood leukocytes 29 % [facility] Not Estab. neutrophils as percent of blood leukocytes 54 % [facility] Not Estab. platelet count 203 X10E3/UL [facility] [phone]/11 /28 red blood cell distribution width 14.4 % [facility] 12.3-15.4 mean corpuscular hemoglobin concentration, RBC 33.1 G/DL [facility] 31.5-35.7 mean corpuscular hemoglobin, RBC 29.1 pg [facility] 26.6-33.0 mean corpuscular volume, RBC 88 fL [facility] 79-97 hematocrit, blood 42.0 % [facility] 34.0-46.6 hemoglobin, blood 13.9 g/dL [facility] 11.1-15.9 erythrocyte (RBC) count 4.77 X10E6/UL [facility] 3.77-5.28 leukocyte count, blood 6.6 X10E3/UL [facility] 3.4-10.8 magnesium, serum 2.1 mg/dL [facility] 1.6-2.3 alanine aminotransferase (SGPT), serum 8 1/L [facility] 0-32 aspartate aminotransferase (SGOT), serum 21 1/L [facility] 0-40 alkaline phosphatase, serum 40 1/L [facility] 39-117 bilirubin, serum, total 0.3 mg/dL [facility] 0.0-1.2 albumin/globulin ratio, serum 1.9 [facility] 1.2-2.2 globulin, serum 2.2 [facility] 1.5-4.5 albumin, serum 4.2 g/dL [facility] 3.6-4.8 protein, total, serum 6.4 g/dL [facility] 6.0-8.5 calcium, serum 10.0 mg/dL [facility] 8.7-10.3 carbon dioxide, venous blood 25 mmol/L [facility] 20-29 chloride, serum 102 mmol/L [facility] 96-106 potassium, serum 4.8 mmol/L [facility] 3.5-5.2 sodium, serum 140 mmol/L [facility] 329-089 3950/10 /12 urea nitrogen/creatinine ratio, serum 17 [facility] 12-28 eGFR if 41 mL/min/{1.73 _m2} [facility] >59 Low eGFR if not 36 mL/min/{1.73 _m2} [facility] >59 Low creatinine, serum 1.51 mg/dL [facility] 0.57-1.00 High urea nitrogen, blood 25 mg/dL [facility] 8-27 blood glucose, random 90 mg/dL [facility] 65-99 activated partial thromboplastin time (aPTT) 25 s [facility] 24-33 prothrombin time (patient) 10.5 s [facility] 9.1-12.0 international normalized ratio (INR) 1.0 [facility] 0.8-1.2 bacteria, urine microscopy None seen [facility] None seen/Few Crystal Type, Urine Amorphous Sediment [facility] N/A cast type, urinalysis Hyaline casts [facility] N/A hyaline casts, urine Present [facility] None seen Abnormal epithelial cells, urine 0-10 [facility] 0 - 10 RBC, Urine 0-2 /hpf [facility] 0 - 2 WBC urine on microscopy 0-5 /hpf [facility] 0 - 5 urinalysis, microscopic examination See report [facility] nitrate, urine Negative [facility] Negative urobilinogen, urine, semiquantitative (dipstick) 0.2 [facility] 0.2-1.0 bilirubin, urine Negative [facility] Negative hemoglobin, urine, by dipstick Negative [facility] Negative ketones, urine, by test strip Negative [facility] Negative glucose, urine Negative [facility] Negative protein, urine, semiquantitative (dipstick) Negative [facility] Negative/Tr constantine leukocyte esterase, urine, by dipstick Negative [facility] Negative appearance, urine Clear [facility] Clear urine color Yellow [facility] Yellow pH, urine, semiquantitative 5.0 [facility] 5.0-7.5 specific gravity, body fluid 1.018 [facility] 1.005-1.030 basophil count, absolute 0.1 x10E3/uL [facility] 0.0-0.2 Eosinophil Absolute Count 0.2 X10E3/UL [facility] 0.0-0.4 monocyte count, blood, automated 0.9 X10E3/UL [facility] 0.1-0.9 lymphocyte count, blood, automated 1.8 X10E3/UL [facility] 0.7-3.1 Absolute Neutrophils 3.8 X10E3/UL [facility] 1.4-7.0 basophils as percent of blood leukocytes 1 % [facility] Not Estab. eosinophils as percent of blood leukocytes 4 % [facility] Not Estab. monocytes as percent of blood leukocytes 13 % [facility] Not Estab. lymphocytes as percent of blood leukocytes 26 % [facility] Not Estab. neutrophils as percent of blood leukocytes 56 % [facility] Not Estab. platelet count 219 X10E3/UL [facility] [phone]/06 /06 red blood cell distribution width 13.7 % [facility] 12.3-15.4 mean corpuscular hemoglobin concentration, RBC 32.3 G/DL [facility] 31.5-35.7 mean corpuscular hemoglobin, RBC 30.3 pg [facility] 26.6-33.0 mean corpuscular volume, RBC 94 fL [facility] 79-97 hematocrit, blood 39.0 % [facility] 34.0-46.6 hemoglobin, blood 12.6 g/dL [facility] 11.1-15.9 erythrocyte (RBC) count 4.16 X10E6/UL [facility] 3.77-5.28 leukocyte count, blood 6.9 X10E3/UL [facility] 3.4-10.8 alanine aminotransferase (SGPT), serum 15 1/L [facility] 0-32 aspartate aminotransferase (SGOT), serum 26 1/L [facility] 0-40 alkaline phosphatase, serum 33 1/L [facility] 39-117 Low bilirubin, serum, total 0.3 mg/dL [facility] 0.0-1.2 albumin/globulin ratio, serum 2.3 [facility] 1.2-2.2 High globulin, serum 2.0 [facility] 1.5-4.5 albumin, serum 4.5 g/dL [facility] 3.6-4.8 protein, total, serum 6.5 g/dL [facility] 6.0-8.5 calcium, serum 9.9 mg/dL [facility] 8.7-10.3 carbon dioxide, venous blood 23 mmol/L [facility] 18-29 chloride, serum 104 mmol/L [facility] 96-106 potassium, serum 5.5 mmol/L [facility] 3.5-5.2 High sodium, serum 142 mmol/L [facility] [phone]/06 /06 urea nitrogen/creatinine ratio, serum 22 [facility] 12-28 eGFR if 31 mL/min/{1.73 _m2} [facility] >59 Low eGFR if not 27 mL/min/{1.73 _m2} [facility] >59 Low creatinine, serum 1.88 mg/dL [facility] 0.57-1.00 High urea nitrogen, blood 42 mg/dL [facility] 8-27 High blood glucose, random 117 mg/dL [facility] 65-99 High anion gap, serum 14.2 [facility] - albumin/globulin ratio, serum 2.2 g/dL [facility] 1.1 - 2.5 globulin, serum 2.1 [facility] 2.3 - 3.8 Low urea nitrogen/creatinine ratio, serum 21.0 [facility] - Estimated Glomerular Filtration Rate (calc) 59.0 (?) [facility] 59.0 - Low chloride, serum 100.8 mmol/L [facility] 98.0 - 107.0 potassium, serum 5.4 mmol/L [facility] 3.5 - 5.1 High sodium, serum 141.0 mmol/L [facility] 136.0 - 145.0 creatinine, serum 1.0 mg/dL [facility] 0.5 - 1.0 High carbon dioxide, venous blood 26.0 mmol/L [facility] 23.0 - 31.0 albumin, serum 4.6 g/dL [facility] 3.5 - 5.2 calcium, serum 9.8 mg/dL [facility] 8.6 - 10.2 aspartate aminotransferase (SGOT), serum 14.0 1/L [facility] 0.0 - 32.0 alkaline phosphatase, serum 73.0 1/L [facility] 40.0 - 130.0 alanine aminotransferase (SGPT), serum 8.0 1/L [facility] 0.0 - 33.0 protein, total, serum 6.7 g/dL [facility] 6.6 - 8.7 bilirubin, serum, total 0.5 mg/dL [facility] 0.0 - 1.2 urea nitrogen, blood 21.0 mg/dL [facility] 8.0 - 23.0 blood glucose, random 100.0 mg/dL [facility] 74.0 - 99.0 High red blood cell distribution width, size density 52.0 fL [facility] - immature granulocytes, percentage of total cells, blood 0.2 % [facility] - nucleated red blood cells as percent of blood leukocytes 0.3 % [facility] - red blood cell (erythrocyte) count, per high power field 0.0 10*3/UL [facility] - eosinophils as percent of blood leukocytes 2.9 % [facility] - neutrophils as percent of blood leukocytes 54.0 % [facility] - Absolute Neutrophils 3.2 CELLS/UL [facility] 1.5 - 7.8 basophils as percent of blood leukocytes 0.8 % [facility] Basophils 0.1 CELLS/UL [facility] 0.0 - 0.2 monocytes as percent of blood leukocytes 14.3 % [facility] - Absolute Monocytes 0.9 CELLS/UL [facility] 0.2 - 1.0 lymphocytes as percent of blood leukocytes 27.8 % [facility] - Absolute Lymphocytes 1.7 CELLS/UL [facility] 0.9 - 3.9 mean platelet volume 13.8 (?) [facility] - platelet count 169.0 THOUSAND/UL [facility] 100.0 - 400.0 mean corpuscular hemoglobin concentration, RBC 30.4 G/DL [facility] 31.0 - 38.0 Low mean corpuscular hemoglobin, RBC 29.2 pg [facility] 25.0 - 35.0 mean corpuscular volume, RBC 95.8 fL [facility] 75.0 - 100.0 hematocrit, blood 43.7 % [facility] 35.0 - 55.0 hemoglobin, blood 13.3 g/dL [facility] 11.5 - 16.5 erythrocyte count, whole blood 4.6 MILLION/UL [facility] 3.5 - 5.5 Nitrite Urine Negative [facility] Negative urobilinogen, urine 0.2 E.U./dL mg/dl [facility] 0.2 - 1.0 specific gravity, urine 1.015 [facility] 1.001 - 1.035 KETONES, URINE Negative [facility] Negative bilirubin, urine Negative [facility] Negative Glucose Urine Negative [facility] Negative clarity, urine, point Clear [facility] Clear urine color Yellow [facility] yellow to katie activated partial thromboplastin time 25.0 SECONDS [facility] 23.0 - 33.0 prothrombin time (patient) 9.6 s [facility] 9.0 - 11.5 international normalized ratio (INR) 0.9 [facility] 0.9 - 1.1 international normalized ratio (INR) 2.1 Keri Graham Normal prothrombin time (patient) 25.1 s [facility] urea nitrogen/creatinine ratio, serum 17.5 [facility] - Estimated Glomerular Filtration Rate (calc) 76.3 (?) [facility] 59.0 - chloride, serum 100.1 mmol/L [facility] 98.0 - 107.0 potassium, serum 4.3 [facility]1 sodium, serum 143.0 mmol/L [facility] 136.0 - 145.0 creatinine, serum 0.8 mg/dL [facility] 0.5 - 1.0 carbon dioxide, venous blood 24.0 mmol/L [facility] 23.0 - 31.0 calcium, serum 9.8 mg/dL [facility] 8.6 - 10.2 urea nitrogen, blood 14.0 mg/dL [facility] 8.0 - 23.0 blood glucose, random 81.0 mg/dL [facility] 74.0 - 99.0 red blood cell distribution width, size density 51.3 fL [facility] - immature granulocytes, percentage of total cells, blood 0.1 % [facility] - mean corpuscular volume, RBC 94.0 fL [facility] 75.0 - 100.0 hematocrit, blood 43.7 % [facility] 35.0 - 55.0 hemoglobin, blood 13.6 g/dL [facility] 11.5 - 16.5 erythrocyte count, whole blood 4.7 MILLION/UL [facility] 3.5 - 5.5 trichomonas vaginalis, urine None seen [facility] urine crystals, microscopic None seen [facility] casts, urine, microscopic None seen [facility] mucus on urinalysis None seen [facility] Not Estab. nucleated red blood cells as percent of blood leukocytes 0.0 % [facility] - red blood cell (erythrocyte) count, per high power field 0.0 10*3/UL [facility] - eosinophils as percent of blood leukocytes 3.0 % [facility] - neutrophils as percent of blood leukocytes 57.7 % [facility] - Absolute Neutrophils 4.1 CELLS/UL [facility] 1.5 - 7.8 basophils as percent of blood leukocytes 0.7 % [facility] - Absolute Basophils 0.1 CELLS/UL [facility] 0.0 - 0.2 monocytes as percent of blood leukocytes 14.3 % [facility] - Absolute Monocytes 1.0 CELLS/UL [facility] 0.2 - 1.0 High lymphocytes as percent of blood leukocytes 24.2 % [facility] - Absolute Lymphocytes 1.7 CELLS/UL [facility] 0.9 - 3.9 mean platelet volume 13.6 (?) [facility] - platelet count 145.0 THOUSAND/UL [facility] 100.0 - 400.0 mean corpuscular hemoglobin concentration, RBC 31.1 G/DL [facility] 31.0 - 38.0 mean corpuscular hemoglobin, RBC 29.2 pg [facility] 25.0 - 35.0 bacteria, urine microscopy None seen [facility] None seen / Few epithelial cells, urine None seen [facility] 0 - 10 /lpf (non renal) RBC urine by microscopy 0 - 3 /hpf [facility] 0 - 3 /hpf WBC urine on microscopy 0 - 5 /hpf [facility] 0 - 5 /hpf Nitrite Urine Negative [facility] Negative urobilinogen, urine 0.2 E.U./dL mg/dl [facility] 0.2 - 1.0 specific gravity, urine <=1.005 [facility] 1.001 - 1.035 KETONES, URINE Negative [facility] Negative bilirubin, urine Negative [facility] Negative Glucose Urine Negative [facility] Negative clarity, urine, point Clear [facility] Clear urine color Yellow [facility] yellow to katie activated partial thromboplastin time 32.0 SECONDS [facility] 23.0 - 33.0 prothrombin time (patient) 17.2 s [facility] 9.0 - 11.5 High international normalized ratio (INR) 1.7 [facility] 0.9 - 1.1 High international normalized ratio (INR) 1.8 Erinn Benitez Normal prothrombin time (patient) 21.9 s Erinn Benitez HISTORY OF MEDICATION USE Medication Status Instructions Dates Provider Indications Com ments Jardiance 10 mg tablet active Jordynradha Diana cephalexin 250 mg capsule completed Take 1 capsule by mouth three times a day - Jordynradha Diana tramadol 50 mg tablet active Take 1 tablet by mouth every eight hours for pain Mk Alejandra MD Entresto 24-26 mg tablet active Take 1 tablet by mouth twice daily Lay Paige sotalol 80 mg tablet completed Take 0.5 tablet by mouth twice a day - Juno Foley MD magnesium oxide 400 mg (241.3 mg magnesium) tablet completed Take 1 tablet by mouth twice daily - Juno Foley MD sotalol 80 mg tablet completed Take 0.5 tablet by mouth once a day - Juno Foley MD buspirone 5 mg tablet active 1 tablet by mouth twice a day Amadeo Velasco magnesium oxide 400 mg (241.3 mg magnesium) tablet completed Take 1 tablet by mouth twice a day - Janelle MONTEROA 8.4 GM ORAL PACKET completed mix with 1/3 cup of water and drink daily; repeat lab work 1 wk after start - Razia Allan RN CLINDAMYCIN HCL 300 MG ORAL CAPSULE completed Take 1 Tab Three Times a Day for 10 Days - Amadeo Velasco calcitriol 0.25 mcg capsule active 1 tablet once a day Gabriella Bennett CEPHALEXIN 500 MG ORAL TABLET completed Take one tablet 3 times daily for 10 days - Amadeo Mancinienson ULTRAM 50 MG ORAL TABLET completed Take one tablet every 6 hours as needed for pain - Gabriella Bennett Ozempic 0.25 mg or 0.5 mg(2 mg/1.5 mL) pen injector active once a week as directed Vanessa Bocanegra ergocalciferol (vitamin D2) 1,250 mcg (50,000 unit) capsule active Take 1 capsule by mouth once a week as directed Vanessa Bocanegra #8, 56 days supply, Prescribed by BRODY HAN, Filled 03/16/2019 glipizide 5 mg tablet extended release 24hr completed Take 1 tablet by mouth once a day - Juno Foley MD #90, 90 days supply, Prescribed by BRODY HAN, Filled 03/16/2019 Allergy Relief (loratadine) 10 mg tablet active Take 1 once a day as needed Qi Bal Crestor 20 mg tablet active Take 1 tablet once a day Juno Foley MD DIFLUCAN 100 MG ORAL TABLET completed one tablet daily for 3 days - aware that patient is on sotalol and levofloxacin - Qi Bal LEVAQUIN 500 MG ORAL TABLET completed one tablet daily for 10 days, may substitute to preferred - Qi aBl ELIQUIS 5 MG ORAL TABLET completed one tablet twice daily - Mk Alejandra MD PRADAXA 75MGMG ORAL CAPSULE (DABIGATRAN ETEXILATE MESYLATE) completed Take 2 tabs by mouth twice daily - Mk Alejandra MD COUMADIN 5 MG ORAL TABLET completed Take 1 tab in the evening with dinner starting Tuesday 10/09. - William Newell RN COUMADIN 5 MG ORAL TABLET completed one tab daily for 7 days prior to your procedure. - Josh Lim ZOCOR 40 MG ORAL TABLET completed ONE TAB. AT BEDTIME - Qi Bal LASIX 20 MG ORAL TABLET completed Take 1 tablet as needed - Amadeo Velasco Entresto 24-26 mg tablet completed 1 tablet by mouth twice a day - Qi Bal TRAMADOL HCL 50 MG ORAL TABLET completed 1 tab every 8 hours as needed for pain for up to 10 days - Jesús Phillips METFORMIN HCL 500 MG ORAL TABLET completed 1 tab 2x daily - Jesús Phillips CEPHALEXIN 250 MG ORAL TABLET completed 1 tab 3x daily for 10 days - Jesús Phillips VITAMIN D3 89303 UNIT ORAL TABLET completed TAKE ONE TAB BY MOUTH WEEKLY - Qi Bal CALCITRIOL 0.25 MCG ORAL CAPSULE completed once a day - Andrea Morgan NEXTERONE SOLUTION completed as directed - [place] Morgan sotalol 80 mg tablet completed Take 0.5 tablet once a day - Rachel Bautista NP magnesium oxide 400 mg (241.3 mg magnesium) tablet completed Take 1 tablet by mouth twice a day - Rachel Bautista NP Tricor 145 mg tablet completed 1 tablet once a day - Rachel Bautista NP ASPIRIN 81 81 MG TBEC active Take 1 tablet once a day Mk Alejandra MD AMIODARONE HCL 200 MG ORAL TABLET completed take one pill a day - Mk Alejandra MD #44, 25 days supply, Prescribed by RACHEL BAUTISTA, Filled 10/01/2017 COUMADIN 5 MG ORAL TABLET completed Please take 1 tab in the evening with dinner. DO NOT START UNTIL MAR 06 2017 - Qi Bal MAGNESIUM OXIDE 400 MG ORAL TABLET completed One tablet twice daily - Qi Bal SPIRONOLACTONE 25 MG ORAL TABLET completed Half tablet daily - Andrea Morgan COREG 6.25 MG ORAL TABLET completed ONE TAB. TWICE DAILY - Emmy Pham MD levothyroxine 50 mcg tablet active 1 tablet once a day Mk Alejandra MD ENALAPRIL MALEATE 10 MG ORAL TABLET completed ONE TAB. TWICE DAILY - Andrea Morgan venlafaxine 75 mg capsule,extended release 24hr active once a day Mk Alejandra MD SIMVASTATIN 40 MG ORAL TABLET completed ONE TAB. DAILY - Qi Bal MONTELUKAST SODIUM 10 MG ORAL TABLET completed once daily - Amadeo Velasco SOCIAL HISTORY Date Observation Value Provider alcohol use, average drinks per day 4+ Barrett Johnston alcohol use yes Barrett Johnston smoking status Never smoker Barrett Johnston alcohol use, average drinks per day 4+ Juno Foley MD alcohol use yes Juno Foley MD smoking status Never smoker Juno Foley MD alcohol use, average drinks per day 4+ Juno Foley MD alcohol use yes Juno Foley MD smoking status Never smoker Juno Foley MD alcohol use, average drinks per day 4+ Barrett Johnston alcohol use yes Barrett Johnston smoking status Never smoker Barrett Johnston alcohol use, average drinks per day 4+ Barrett Johnston alcohol use yes Barrett Vickie smoking status Never smoker Barrett Vickie social history reviewed E&M revi ewed - no changes required Juno Foley MD social history E&M S moking History: Caterina best has never smoked. Juno Foley MD smoking status Never smoker Juno Foley MD social history E&M S moking History: Caterina best has never smoked. Juno Foley MD social history reviewed E&M revi ewed - no changes required Juno Foley MD smoking status Never smoker Karime Israel social history E&M S moking History: Caterina best has never smoked. Juno Foley MD social history reviewed E&M revi ewed - no changes required Juno Foley MD smoking status Never smoker Tracee Li juarez social history E&M S moking History: Caterina best has never smoked. Juno Foley MD smoking status Never smoker Juno Foley MD social history reviewed E&M revi ewed - no changes required Juno Foley MD social history E&M S moking History: Caterina best has never smoked. Rachel Bautista NP smoking status Never smoker Rachel Breen in [employer] social history reviewed E&M revi ewed - no changes required Rachel Bautista NP social history reviewed E&M revi ewed - no changes required Juno Foley MD smoking status Never smoker Amadeo Velásquez smoking status Never smoker Vanessa Bocanegra social history reviewed E&M revi ewed - no changes required Tania Gomez NP smoking status Never smoker Natalia lou alcohol use, average drinks per day 4+ Juno Foley MD alcohol use yes Juno Foley MD social history E&M Smoking Histo ry: P estephania has never smoked. Juno Foley MD social history reviewed E&M revi ewed - no changes required Juno Foley MD alcohol use, average drinks per day 4+ Juno Foley MD alcohol use yes Juno Foley MD smoking status Never smoker Juno Foley MD social history E&M S moking History: P estephania has never smoked. Juno Foley MD social history reviewed E&M revi ewed - no changes required Juno Foley MD alcohol use, average drinks per day 4+ Juno Foley MD alcohol use yes Juno Foley MD social history E&M S moking History: Caterina best has never smoked. Juno Foley MD social history reviewed E&M revi ewed - no changes required Juno Foley MD smoking status Never smoker Amadeo Velásquez number of grandchildren Juno Foley MD alcohol use, average drinks per day 4+ Juno Foley MD alcohol use yes Juno Foley MD social history E&M S moking History: Caterina best has never smoked. Juno Foley MD social history reviewed E&M revi ewed - no changes required Juno Foley MD smoking status Never smoker Amadeo Velásquez social history reviewed E&M revi ewed - no changes required Puma Pelaez smoking status Never smoker Amadeo Velásquez social history reviewed E&M revi ewed - no changes required Puma Pelaez smoking status Never smoker Natalia luo social history E&M S moking History: Caterina best has never smoked. Puma Benigno social history reviewed E&M revi ewed - no changes required Puma Benigno smoking status Never smoker Gabriella Kosta evans social history reviewed E&M revi ewed - no changes required Mk Alejandra MD smoking status Never smoker Luda Ngoby social history reviewed E&M revi ewed - no changes required Puma Benigno smoking status Never smoker Maryannevita nguyen-Geovanni social history reviewed E&M revi ewed - no changes required Maryann Rosario smoking status Never smoker Maryann nguyen-Geovanni social history reviewed E&M revi ewed - no changes required Maryann Rosario number of grandchildren Mk Alejandra MD smoking status Never smoker Maryann Casanova social history reviewed E&M revi ewed - no changes required Maryann Rosario social history E&M S moking History: Caterina best has never smoked. Juno Foley MD social history reviewed E&M revi ewed - no changes required Juno Foley MD alcohol counseling yes Westover I ngram alcohol use, average drinks per day 4+ Westover Morgan alcohol use yes Andrea Morgan smoking status Never smoker Andrea Ingra m number of grandchildren Juno Foley MD alcohol counseling yes Qi fierro alcohol use, average drinks per day 4+ Qi Bal alcohol use yes Qi delgado smoking status Never smoker Qi naqvi social history E&M S moking History: P atient has never smoked. Mk Alejandra MD alcohol counseling yes Mk marshall MD alcohol use, average drinks per day 4+ Mk Alejandra MD alcohol use yes Mk bennett MD smoking status Never smoker Mk carreon MD social history reviewed E&M revi ewed - no changes required Mk Alejandra MD social history reviewed E&M revi ewed - no changes required Mk Alejandra MD social history E&M S moking History: P estephania has never smoked. Mk Alejandra MD alcohol counseling yes Qi fierro alcohol use, average drinks per day 4+ Qi Bal alcohol use yes Qi delgado smoking status Never smoker Qi naqvi social history reviewed E&M revi ewed - no changes required Josh Lim social history E&M S moking History: P estephania has never smoked. Josh Lim alcohol counseling yes Amadeo Velasco alcohol use, average drinks per day 4+ Amadeo Velasco alcohol use yes Amadeo Mancinichloe foster smoking status Never smoker Amadeo Velásquez social history reviewed E&M revi ewed - no changes required Josh Lim social history E&M S moking History: P estephania has never smoked. Josh Lim alcohol counseling yes Qi fierro alcohol use, average drinks per day 4+ Qi Bal alcohol use yes Qi lombardier smoking status Never smoker Qi naqvi number of grandchildren Mk Lim social history reviewed E&M revi ewed - no changes required Josh Lim social history E&M S moking History: P estephania has never smoked. Josh Raphael alcohol counseling yes Qi Branch vadim alcohol use, average drinks per day 4+ Qi Toroavelina alcohol use yes Qi Flores lder smoking status Never smoker Qi Obando donya number of grandchildren Juno Foley MD U nicole Foley MD social history E&M S moking History: P estephania has never smoked. Juno Foley MD social history reviewed E&M revi ewed - no changes required Juno Foley MD alcohol counseling yes Qi Landaverdefroilan fierro alcohol use, average drinks per day 4+ Qi Toroavelina alcohol use yes Qi Landaverdelitzyroscoe lder smoking status Never smoker Qi Obanod donya handedness R Handed Juan David Lane social history E&M S moking History: P estephania has never smoked. Juan David Lane social history reviewed E&M revi ewed - no changes required Juan David Lane alcohol counseling yes Qi Branch vadim alcohol use, average drinks per day 4+ Qi Odenpedroannabelavelina alcohol use yes Qi Flores lder smoking status Never smoker Qi Obando donya social history reviewed E&M revi ewed - no changes required Emmy Pham MD social history reviewed E&M revi ewed - no changes required Mk Alejandra MD alcohol counseling yes Andrea I ngram alcohol use, average drinks per day 4+ Westover Morgan alcohol use yes Andrea Morgan smoking status Never smoker Westover Ingra m number of grandchildren Mk Lane social history E&M S moking History: Caterina best has never smoked. Juan David Lane social history reviewed E&M revi ewed - no changes required Juan David [address] smoking status Never smoker Juan David Lane alcohol counseling yes Keri Salo s alcohol use, average drinks per day 4+ Keri Graham alcohol use yes Keri Graham number of grandchildren Juno Foley MD social history reviewed E&M revi ewed - no changes required Juno Foley MD social history E&M S moking History: Caterina best has never smoked. Juno Foley MD alcohol counseling yes Luda Bu sby alcohol use, average drinks per day 4+ Luda [place] alcohol use yes Luda [place] smoking status Never smoker Luda Soy number of grandchildren Mk Alejandra MD social history reviewed E&M revi ewed - no changes required Mk Alejandra MD social history E&M S moking History: Caterina best has never smoked. Juno Foley MD social history reviewed E&M revi ewed - no changes required Juno Foley MD alcohol counseling yes Amadeo Velasco alcohol use, average drinks per day 4+ Amadeo Velasco alcohol use yes Amadeo foster smoking status Never smoker Amadeo Velásquez number of grandchildren Juno Foley MD alcohol counseling yes Juno darby MD alcohol use, average drinks per day 4+ Juno Foley MD alcohol use yes Juno Foley MD smoking status Never smoker Juno Foley MD social history reviewed E&M revi ewed - no changes required Juno Foley MD alcohol counseling yes Keri Salo s alcohol use, average drinks per day 4+ Keri Graham alcohol use yes Keri Graham smoking status Never smoker Keri Graham social history E&M S moking History: P estephania has never smoked. Mk Alejandra MD social history reviewed E&M revi ewed - no changes required Mk Alejandra MD alcohol counseling yes Andrea I ngram alcohol use, average drinks per day 4+ Andrea Morgan alcohol use yes [place] Morgan smoking status Never smoker Andrea Ingra m alcohol counseling yes Qi fierro alcohol use, average drinks per day 4+ Qi Bal alcohol use yes Qi lombardier smoking status Never smoker Qi naqvi number of grandchildren Mk Alejandra MD Vidal Hu [employer] alcohol counseling yes Luda yoo alcohol use, average drinks per day 4+ Luda Soy alcohol use yes Luda [place] smoking status Never smoker Luda [place] number of grandchildren Juno Foley MD U nicole Foley MD social history reviewed E&M revi ewed - no changes required Juno Foley MD social history reviewed E&M revi ewed - no changes required Mk Alejandra MD smoking status Never smoker Ryanne Tompkins social history E&M S moking History: P atlakeisha has never smoked. Ryanne Tompkins social history reviewed E&M revi ewed - no changes required Ryanne Tompkins alcohol counseling yes Qi Sarina fierro alcohol use, average drinks per day 4+ Qi Bal alcohol use yes Qi lombardier social history reviewed E&M revi ewed - no changes required Mk Alejandra MD alcohol counseling yes Vidal Hu [employer] alcohol use, average drinks per day 4+ Vidal Hu [employer]ER alcohol use yes Vidal Hu [employer] smoking status Never smoker Vidal Hu [employer] number of grandchildren Mk Ellsworth social history reviewed E&M revi ewed - no changes required Nathan [place] alcohol counseling yes Amadeo Velasco alcohol use, average drinks per day 4+ Amadeo Velasco alcohol use yes Amadeo foster smoking status Never smoker Amadeo Velásquez number of grandchildren Juno Foley MD U nicole Foley MD social history reviewed E&M revi ewed - no changes required Juno Foley MD alcohol counseling yes Qi Sraina fierro alcohol use, average drinks per day 4+ Qi Bal alcohol use yes Qi delgado smoking status Never smoker Qi naqvi alcohol counseling yes Osmin [place] number of grandchildren Mk [place] social history E&M Smoking Histo ry: P atient has never smoked. Osmin [place] social history reviewed E&M revi ewed - no changes required Osmin [place] alcohol use, average drinks per day 4+ Erinn Benitez alcohol use yes Erinn Benitez smoking status Never smoker Erinn Benitez social history reviewed E&M revi ewed - no changes required Juno Foley MD alcohol use, average drinks per day 4+ Amadeo Velasco alcohol use yes Amadeo foster smoking status Never smoker Amadeo Velásquez social history reviewed E&M revi ewed - no changes required Juno Foley MD number of grandchildren Juno Foley MD U nicole Foley MD alcohol use, average drinks per day 4+ Juno Foley MD alcohol use yes Juno Foley MD social history E&M Patient has n ever smoked. Smoking History: P estephania has never smoked. Juno Foley MD smoking status Never smoker Juno Foley MD FUNCTIONAL STATUS Date Observation Value Provider HRA, CV Assess/Plan, Angina (inactive) Management Plan continue current therapy Barrett Johnston HRA, CV Assess/Plan, Angina (inactive) Management Plan continue current therapy Juno Foley MD HRA, CV Assess/Plan, Angina (inactive) Management Plan continue current therapy Juno Foley MD HRA, CV Assess/Plan, Angina (inactive) Management Plan continue current therapy Barrett Johnston HRA, CV Assess/Plan, Angina (inactive) Management Plan continue current therapy Barrett Johnston HRA, CV Assess/Plan, Angina (inactive) Management Plan continue current therapy Juno Foley MD HRA, CV Assess/Plan, Angina (inactive) Management Plan continue current therapy Juno Foley MD HRA, CV Assess/Plan, Angina (inactive) Management Plan continue current therapy Juno Foley MD FAMILY HISTORY Family Member Condition Mother Family History of Co ronary Artery Disease: Father Family History of Co ronary Artery Disease: INSURANCE PROVIDERS Payer name Policy type / Coverage type [place] red libertarian ID [place] [employer] Medicare [id number] ADVANCE DIRECTIVES Name Date DISCUSSED - NO DECISION MADE TREATMENT PLAN Date Name Performer [id number],B, Juno Foley MD [id number],C,seen on last echo Juno Foley MD [id number],C,last echo EF 60% Juno Foley MD [id number],C,p er PCP, she will start jardiance for renal protection l ast A1c 5.5% Juno Foley MD [id number],S, Juno Foley MD [id number],C, H er updated medication list for this problem includes: Crestor 20 Mg Tablet (Rosuvastatin) ..... Take 1 tablet once a day Juno Foley MD [id number],C, B P today: 120/79 P rior BP: 114/78 (08/16/2022) Labs Reviewed: C reat: 0.91 (03/10/2021) C hol: 211 (11/26/2018) HDL: 60 (11/26/2018) Her updated medication list for this problem includes: Sotalol 80 Mg Tablet (Sotalol) ..... Take 0.5 tablet by mouth twice a day Juno Foley MD [id number],B, Juno Foley MD [id number],B,I will repeat her echo in a month or so. She is on Entresto and Crestor. She also has a defibrillator Juno Foley MD [id number],S, Juno Foley MD [id number],B, Juno Foley MD [id number],S, Juno Foley MD [id number],S, Juno Foley MD [id number],S, A ppears stable. No chest pain. Continues on crestor. Her updated medication list for this problem includes: Sotalol 80 Mg Tablet (Sotalol) ..... Take 0.5 tablet once a day Juno Foley MD [id number],S, s he hasn't been using cpap at night Juno Foley MD [id number],S, I 'm going to cut her crestor to 20mg - I don't think she needs such a high dose since she has only mild CAD. Her updated medication list for this problem includes: Crestor 20 Mg Tablet (Rosuvastatin) ..... Take 1 tablet once a day Juno Foley MD [id number],S, N o recurrence K 4.4. 06/19/21 Juno Foley MD [id number],S, B P today: 101/59 P rior BP: 135/78 (11/19/2021) Her updated medication list for this problem includes: Sotalol 80 Mg Tablet (Sotalol) ..... Take 0.5 tablet once a day Juno Foley MD [id number],S, C lincally well compensated and is without shortness of breath. Continues on Entresto 49-51mg dose. Last EF was 60-65%. Juno Foley MD [id number],S, s /p BIV ICD, no recent events or shocks Juno Foley MD [id number],S, A 1C 5.5 Her updated medication list for this problem includes: Ozempic 0.25 Mg Or 0.5 Mg(2 Mg/1.5 Ml) Pen Injector (Semaglutide) ..... Once a week as directed Entresto 24-26 Mg Tablet (Sacubitril-valsartan) ..... 1 tablet by mouth twice a day Glipizide 5 Mg Tablet Extended Release 24hr (Glipizide) ..... Take 1 tablet by mouth once a day Rachel Bautista NP [id number],S, E F 60~65% on last echo. Rachel Bautista NP [id number],S, C lincally well compensated and is without shortness of breath. Continues on Entresto 49-51mg dose today. Rachel Bautista NP [id number],S, T he patient is using CPAP on a regular basis. The patient has been benefiting from therapy and should continue use. Rachel Bautista NP [id number],S, E pisode in September 2017 leading to shock by defibrillator. No recurrence. Rachel Bautista NP [id number],W, P rescribed Buspar by PCP. Recommend neurology evaluation. Rachel Bautista NP [id number],S, H er updated medication list for this problem includes: Tricor 145 Mg Tablet (Fenofibrate nanocrystallized) ..... 1 tablet once a day Crestor 40 Mg Tablet (Rosuvastatin) ..... 1 tablet once a day Rachel Bautista NP [id number],S, B P today: 135/78 P rior BP: 110/79 (10/05/2021) Her updated medication list for this problem includes: Sotalol 80 Mg Tablet (Sotalol) ..... Take 0.5 tablet once a day Rachel Bautista NP [id number],C, T he patient is using CPAP on a regular basis. The patient has been benefiting from therapy and should continue use. Juno Foley MD [id number],C, N o recurrence K 4.4. 06/19/21 Juno Foley MD [id number],C, H er updated medication list for this problem includes: Tricor 145 Mg Tablet (Fenofibrate nanocrystallized) ..... 1 tablet once a day Crestor 40 Mg Tablet (Rosuvastatin) ..... 1 tablet once a day Juno Foley MD [id number],C, s /p BIV ICD, no recent events or shocks Juno Foley MD [id number],C, B P today: 110/79 P rior BP: 130/80 (06/22/2021) Labs Reviewed: C reat: 0.91 (03/10/2021) C hol: 211 (11/26/2018) HDL: 60 (11/26/2018) Her updated medication list for this problem includes: Sotalol 80 Mg Tablet (Sotalol) ..... Take 0.5 tablet once a day Juno Foley MD [id number],B, C lincally well compensated and is without shortness of breath. Continues on Entresto 49-51mg dose today. Juno Foley MD [id number],B, E F 60~65% on last echo. Juno Foley MD [id number],S, Rachel brian NP [id number],B, Rachel brian NP [id number],N,P rescribed Buspar by PCP. Feels better. Rachel Bautista NP [id number],B,resolved Abhinav Bautista NP [id number],S, Juno Foley MD [id number],B,on last echo. Juno Foley MD [id number],C,will repeat b mp. Juno Foley MD [id number],C,T his may be a vasovagal attack, but will need to do bloodwork to see if her K is getting high or not. She stopped taking her lokelma. Essentially i am concerned that when her bp comes down it may go too low when i increase her bp meds. Juno Foley MD Cardiology Juno Foley MD Cardiology Juno Foley MD Cardiology:This visi t has been a part of the consistent, comprehensive, and ongoing management of the chronic medical condition(s) listed above for the patient. BP today: 129/79 P rior BP: 132/82 (07/09/2024) Labs Reviewed: C reat: 0.91 (03/10/2021) C hol: 211 (11/26/2018) HDL: 60 (11/26/2018) LDL: 116 (11/26/2018) T (11/26/2018) Barrett Johnston Cardiology:Echo EF 6 0% mild MR, 03/2024 This visit has been a part of the consistent, comprehensive, and ongoing management of the chronic medical condition(s) listed above for the patient. Barrett Johnston Cardiology:No signs of decompensation This visit has been a part of the consistent, comprehensive, and ongoing management of the chronic medical condition(s) listed above for the patient. Barrett Johnston Cardiology:This visi t has been a part of the consistent, comprehensive, and ongoing management of the chronic medical condition(s) listed above for the patient. Her updated medication list for this problem includes: Jardiance 10 Mg Tablet (Empagliflozin) Ozempic 0.25 Mg Or 0.5 Mg(2 Mg/1.5 Ml) Pen Injector (Semaglutide) ..... Once a week as directed Barrett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 updated medication list for this problem includes: Lasix 20 Mg Oral Tablet (Furosemide) ..... Take 1 tablet as needed Lisinopril 2.5 Mg Oral Tablet (Lisinopril) ..... One tab. at night Aspir-81 81 Mg Oral Tablet Delayed Release (Aspirin) ..... Take one tablet daily Sotalol Hcl 80 Mg Oral Tablet (Sotalol hcl) ..... One tab. twice daily Josh Lim Electrophysiology Fo llow up :ICD implanted 04/21/17. D evice check 06/10/18 shows 89% [employer], 78% BiVP. No SVT. Her updated medication list for this problem includes: Coumadin 5 Mg Oral Tablet (Warfarin sodium) ..... One tab daily for 7 days prior to your procedure. Lisinopril 2.5 Mg Oral Tablet (Lisinopril) ..... One tab. at night Aspir-81 81 Mg Oral Tablet Delayed Release (Aspirin) ..... Take one tablet daily Sotalol Hcl 80 Mg Oral Tablet (Sotalol hcl) ..... One tab. twice daily Josh Lim Electrophysiology Fo llow up :10% PVC burden on last remote check 06/2018. A V sequentially paced with frequent PVCs on EKG today. I recommend EP ablation for PVCs with carto and anesthesia in the next few months at [facility] [place]. P atient to take 5mg Coumadin daily for 7 days prior to procedure. Orders: 9213 MOD Complex (CPT-82220) S chedule Followup (*) A BLATION w/ Anesthesia (*) Her updated medication list for this problem includes: Coumadin 5 Mg Oral Tablet (Warfarin sodium) ..... One tab daily for 7 days prior to your procedure. Lisinopril 2.5 Mg Oral Tablet (Lisinopril) ..... One tab. at night Aspir-81 81 Mg Oral Tablet Delayed Release (Aspirin) ..... Take one tablet daily Sotalol Hcl 80 Mg Oral Tablet (Sotalol hcl) ..... One tab. twice daily Josh Lim Electrophysiology Fo llow up :Echo 05/15/18 shows EF 35%. Her updated medication list for this problem includes: Lasix 20 Mg Oral Tablet (Furosemide) ..... Take 1 tablet as needed Lisinopril 2.5 Mg Oral Tablet (Lisinopril) ..... One tab. at night Aspir-81 81 Mg Oral Tablet Delayed Release (Aspirin) ..... Take one tablet daily Sotalol Hcl 80 Mg Oral Tablet (Sotalol hcl) ..... One tab. twice daily Josh Lim Electrophysiology Fo llow up :Her updated medication list for this problem includes: Lasix 20 Mg Oral Tablet (Furosemide) ..... Take 1 tablet as needed Lisinopril 2.5 Mg Oral Tablet (Lisinopril) ..... One tab. at night Aspir-81 81 Mg Oral Tablet Delayed Release (Aspirin) ..... Take one tablet daily Sotalol Hcl 80 Mg Oral Tablet (Sotalol hcl) ..... One tab. twice daily Josh Lim Electrophysiology Fo llow up :Her updated medication list for this problem includes: Lisinopril 2.5 Mg Oral Tablet (Lisinopril) ..... One tab. at night Aspir-81 81 Mg Oral Tablet Delayed Release (Aspirin) ..... Take one tablet daily Sotalol Hcl 80 Mg Oral Tablet (Sotalol hcl) ..... One tab. twice daily Josh Lim Electrophysiology Fo llow up :ICD implanted 04/21/17. D evice check 06/10/18 shows 89% [employer], 78% BiVP. No SVT. F ollowup with me as needed. Her updated medication list for this problem includes: Lisinopril 2.5 Mg Oral Tablet (Lisinopril) ..... One tab. at night Aspir-81 81 Mg Oral Tablet Delayed Release (Aspirin) ..... Take one tablet daily Sotalol Hcl 80 Mg Oral Tablet (Sotalol hcl) ..... One tab. twice daily Josh Lim Cardiology Follow up Juno vincent MD Cardiology Follow up : B P today: 110/80 P rior BP: 120/80 (05/15/2018) Labs Reviewed: C reat: 1.88 (04/01/2018) Juno Foley MD Cardiology Follow up :s/p ICD. C ontinue CONSTANTINE, Sotalol Juno Foley MD Electrophysiology Ho spital Follow up : H er updated medication list for this problem includes: Lisinopril 2.5 Mg Oral Tablet (Lisinopril) ..... One tab. at night Aspir-81 81 Mg Oral Tablet Delayed Release (Aspirin) ..... Take one tablet daily Sotalol Hcl 80 Mg Oral Tablet (Sotalol hcl) ..... One tab. twice daily [address] Electrophysiology Ho spital Follow up : H er updated medication list for this problem includes: Lisinopril 2.5 Mg Oral Tablet (Lisinopril) ..... One tab. at night Aspir-81 81 Mg Oral Tablet Delayed Release (Aspirin) ..... Take one tablet daily Sotalol Hcl 80 Mg Oral Tablet (Sotalol hcl) ..... One tab. twice daily [address] Electrophysiology [facility] spital Follow up :Normal device function. No programming changes necessary. Juan David Lane Cardiology Emmy Pham MD Cardiology Emmy Pham MD Cardiology Emmy Pham MD Cardiology Emmy Pham MD Electrophysiology:Th e patient is using CPAP on a regular basis. The patient has been benefiting from therapy and should continue use. Vika Shipley Electrophysiology:Ep isode in September 2017 leading to shock by defibrillator. No recurrence. Vika Shipley Electrophysiology fo llow up: H er updated medication list for this problem includes: Nexterone Solution (Amiodarone hcl in dextrose soln) ..... As directed Sotalol Hcl 80 Mg Oral Tablet (Sotalol hcl) ..... One tab. twice daily Aspir-81 81 Mg Oral Tablet Delayed Release (Aspirin) ..... Take one tablet daily Spironolactone 25 Mg Oral Tablet (Spironolactone) ..... Half tablet daily Coreg 6.25 Mg Oral Tablet (Carvedilol) ..... One tab. twice daily Enalapril Maleate 10 Mg Oral Tablet (Enalapril maleate) ..... One tab. twice daily Orders: C BC (INCLUDES DIFF/PLT) (6399) P ROTHROMBIN TIME WITH INR (8847) C OMPREHENSIVE METABOLIC PANEL W/EGFR (54146) U RINALYSIS, COMPLETE W/REFLEX TO CULTURE (3020) P ARTIAL THROMBOPLASTIN TIME, ACTIVATED (763) Juan David Lane Cardiology:LV lead h as dislodged. Discussed with pt. that we probably need to go back and reposition the monitor. WIll schedule follow up with Ny. Juno Foley MD Electrophysiology: B P today: 118/64 P rior BP: 106/65 (12/25/2017) Labs Reviewed: C reat: 1.0 (04/09/2017) Mk Alejandra MD Electrophysiology:Th e patient is using CPAP on a regular basis. The patient has been benefiting from therapy and should continue use. Mk Alejandra MD Electrophysiology:Class II Caty Alejandra MD Cardiology Juno Foley MD Cardiology: H er updated medication list for this problem includes: Fenofibrate 48 Mg Oral Tablet (Fenofibrate) ..... Take one tablet daily Simvastatin 40 Mg Oral Tablet (Simvastatin) ..... One tab. daily Juno Foley MD Cardiology: B P today: 106/65 P rior BP: 92/60 (11/25/2017) Labs Reviewed: C reat: 1.0 (04/09/2017) Juno Foley MD Cardiology:Minimal p laque in bilateral ECA, otherwise normal study. W ill decrease Enalipril to 5mg bid. Juno Foley MD Cardiology: H er updated medication list for this problem includes: Fenofibrate 48 Mg Oral Tablet (Fenofibrate) ..... Take one tablet daily Simvastatin 40 Mg Oral Tablet (Simvastatin) ..... One tab. daily Juno Foley MD Cardiology:Will incr ease coreg to 6.25mg bid, decrease enalapril to 10mg daily. BP today: 92/60 P rior BP: 126/72 (11/21/2017) Labs Reviewed: C reat: 1.0 (04/09/2017) Juno Foley MD Cardiology:Will check carotid US in one month. Juno Foley MD Cardiology:Patient has bronchiti s. Juno Foley MD Cardiology:No worsening of sympt oms. Juno Foley MD Cardiology:Episode i n September 2017 leading to shock by defibrillator. No recurrence. W ill increase coreg to 6.25mg bid, decrease enalapril to 10mg daily. Juno Foley MD Electrophysiology fo llow up: B P today: 126/72 P rior BP: 140/70 (11/14/2017) Labs Reviewed: C reat: 1.0 (04/09/2017) Mk Alejandra MD Electrophysiology follow up Donte Alejandra MD Electrophysiology: H er updated medication list for this problem includes: Simvastatin 40 Mg Oral Tablet (Simvastatin) ..... One tab. daily Mk Alejandra MD Electrophysiology: B P today: 140/70 P rior BP: 118/72 (10/17/2017) Labs Reviewed: C reat: 1.0 (04/09/2017) Mk Alejandra MD Electrophysiology:re cent PFTs show TLC 87% Mk Alejandra MD Electrophysiology:EK G showed BiV paced rhythm I f she has recurrence of VT, will plan to do cardioversion. patient prefers staying on low dose coreg. Increase AV Delay to 175 S tart Magnesium Oxide 400mg one tablet twice daily Mk Alejandra MD Electrophysiology Ho spital Follow up : H er updated medication list for this problem includes: Amiodarone Hcl 200 Mg Oral Tablet (Amiodarone hcl) ..... Take one pill a day Spironolactone 25 Mg Oral Tablet (Spironolactone) ..... Half tablet daily Carvedilol 6.25 Mg Oral Tablet (Carvedilol) ..... One tab. twice daily Enalapril Maleate 20 Mg Oral Tablet (Enalapril maleate) ..... One tab. daily Mk Alejandra MD Electrophysiology Ho spital Follow up : O rders: S NOMED-CT: [id number] Current Medications Documented ([facility]-[id number]) E KG (CPT-77696) G lobal No Charge (CPT-01675) F VC - 10520 (04135) F RC - 85714 (61047) D LCO - 85020 (42978) Her updated medication list for this problem includes: Amiodarone Hcl 200 Mg Oral Tablet (Amiodarone hcl) ..... Take one pill a day Spironolactone 25 Mg Oral Tablet (Spironolactone) ..... Half tablet daily Carvedilol 6.25 Mg Oral Tablet (Carvedilol) ..... One tab. twice daily Enalapril Maleate 20 Mg Oral Tablet (Enalapril maleate) ..... One tab. daily Mk Alejandra MD Electrophysiology Ho spital Follow up : O rders: D LCO - 32532 (70755) S vesta Followup (*) Her updated medication list for this problem includes: Spironolactone 25 Mg Oral Tablet (Spironolactone) ..... Half tablet daily Carvedilol 6.25 Mg Oral Tablet (Carvedilol) ..... One tab. twice daily Enalapril Maleate 20 Mg Oral Tablet (Enalapril maleate) ..... One tab. daily Mk Alejandra MD Electrophysiology Ho spital Follow up :improved on amiodarone O rders: Harvey saleh No Charge (CPT-99778) S chedule Followup (*) Her updated medication list for this problem includes: Amiodarone Hcl 200 Mg Oral Tablet (Amiodarone hcl) ..... Take one pill a day Carvedilol 6.25 Mg Oral Tablet (Carvedilol) ..... One tab. twice daily Enalapril Maleate 20 Mg Oral Tablet (Enalapril maleate) ..... One tab. daily Mk Alejandra MD Electrophysiology - JHNP:s/p biv icd Vidal Vini HAND HIDE STRETCHER Cardiology:Having surgery to rem ove part of colon. Juno Foley MD Cardiology Juno Foley MD Cardiology: B P today: 112/68 P rior BP: 112/70 (05/28/2017) Labs Reviewed: C reat: 1.0 (04/09/2017) Juno Foley MD Electrophysiology Follow up - Lonnie Tompkins EP Mk jc MD Cardiology:Will chec k echo in two weeks and make decision regarding ICD. Nathan Ellsworth Cardiology:Not induced during EP study [facility] Follow up Us duyen Foley MD Cardiology Hospital Follow up :P er EP Juno Foley MD Cardiology Hospital Follow up Us duyen Foley MD [facility] Follow up :Non ischemic. On CONSTANTINE, beta tracie, and aldactone. Juno Foley MD EP faxed 01/23/17:Her updated medication list for this problem includes: Spironolactone 25 Mg Tabs (Spironolactone) ..... Half tablet daily <--- Starting today Carvedilol 6.25 Mg Tabs (Carvedilol) ..... One tab. twice daily Enalapril Maleate 20 Mg Tabs (Enalapril maleate) ..... One tab. daily Osmin Rojasberg EP faxed 01/23/17:Her updated medication list for this problem includes: Spironolactone 25 Mg Tabs (Spironolactone) ..... Half tablet daily <--- Starting today Carvedilol 6.25 Mg Tabs (Carvedilol) ..... One tab. twice daily Enalapril Maleate 20 Mg Tabs (Enalapril maleate) ..... One tab. daily Osmin [place] EP faxed 01/23/17 [facility] 01/23/17:Her updated medication list for this problem includes: Carvedilol 6.25 Mg Tabs (Carvedilol) ..... One tab. twice daily Enalapril Maleate 20 Mg Tabs (Enalapril maleate) ..... One tab. daily Magnesium Oxide 400 Mg Oral Tabs (Magnesium oxide) .... One tablet twice daily <--- Starting today Patient is planned to undergo cardiac catheterization. Will schedule EP study after her cath. Osmin [facility] EP faxed 01/23/17:Her updated medication list for this problem includes: Carvedilol 6.25 Mg Tabs (Carvedilol) ..... One tab. twice daily Enalapril Maleate 20 Mg Tabs (Enalapril maleate) ..... One tab. daily Magnesium Oxide 400 Mg Oral Tabs (Magnesium oxide) .... One tablet twice daily <--- Starting today Osmin [place] Cardiology:[place] 112[address] ectopics 6.8% of total beats. Will schedule her to see Dr. Smith. Juno Foley MD Cardiology:Recent ec ho showed EF of 15%. Her stress test showed no reversible ischemia. May be alcohol induced as she used to drink 3-6 beers daily and have recommended cessation of alcohol consumption. Will schedule her for a cardiac cath. T he risks and benefits of the procedure, including but not limited the risk of heart attack, , stroke, bleeding, kidney failure, and loss of limb as well as the alternative of continued medical therapy, stress testing or bypass surgery were discussed with the patient and any present family members and the patient wishes to proceed with cardiac cath and stenting. The patient and family had opportunity to discuss this with us. Written material including informed consent was given out. Juno Foley MD Cardiology:As above will be doing an adenosine and echo prior to stratification. Juno Foley MD Cardiology: B P today: 139/88 Juno Foley MD Cardiology:Will chec k the adenosine to see if this may be her anginal equivalent. Juno Foley MD Cardiology:Will chec k stress test and holter because the patient has frequent PVC's. Juno Foley MD Date Name Stress Regadenoson Complete Echo URINALYSIS, COMPLETE W/REFLEX TO CULTURE COMPREHENSIVE METABO LIC PANEL W/EGFR CBC (INCLUDES DIFF/P LT) PARTIAL THROMBOPLAST IN TIME, ACTIVATED PROTHROMBIN TIME WIT H INR Complete Echo Complete Echo Complete Echo BASIC METABOLIC PANE L W/EGFR HEMOGLOBIN A1c PROBNP, N TERMINAL COMPREHENSIVE METABO LIC PANEL, W/EGFR BASIC METABOLIC PANE L W/EGFR BASIC METABOLIC PANE L W/EGFR BASIC METABOLIC PANE L W/EGFR X-Ray, Chest - Routi ne URINALYSIS, COMPLETE W/REFLEX TO CULTURE CBC (INCLUDES DIFF/P LT) COMPREHENSIVE METABO LIC PANEL, W/EGFR PROTHROMBIN TIME WIT H INR Partial Thromboplast in Time, Activated BI-V AICD Implant - [facility] Complete Echo PROTHROMBIN TIME WIT H INR PARTIAL THROMBOPLAST IN TIME, ACTIVATED X-Ray, Chest - Routi ne Complete Echo Venous Doppler Bilat eral LE LIPID PANEL D-DIMER, QUANTITATIV E COMPREHENSIVE METABO LIC PANEL, W/EGFR UA, complete w/refle x to culture URINALYSIS, COMPLETE W/REFLEX TO CULTURE Complete Echo ABLATION w/ Anesthes ia Partial Thromboplast in Time, Activated CBC (INCLUDES DIFF/P LT) BASIC METABOLIC PANE L W/EGFR ABLATION w/ Anesthes ia MAGNESIUM COMPREHENSIVE METABO LIC PANEL, W/EGFR MAGNESIUM PROBNP, N TERMINAL COMPREHENSIVE METABO LIC PANEL, W/EGFR MAGNESIUM PROBNP, N TERMINAL COMPREHENSIVE METABO LIC PANEL, W/EGFR PARTIAL THROMBOPLAST IN TIME, ACTIVATED URINALYSIS, COMPLETE W/REFLEX TO CULTURE COMPREHENSIVE METABO LIC PANEL W/EGFR PROTHROMBIN TIME WIT H INR CBC (INCLUDES DIFF/P LT) Echo - Bi-V Study Carotid Duplex Bilat eral Complete Echo DLCO - 17019 FRC - 30725 FVC - 02365 MAGNESIUM COMPREHENSIVE METABO LIC PANEL, W/EGFR THYROID PANEL WITH T SH, 3RD GENERATION Complete Echo DLCO - 16767 FRC - 32736 FVC - 53017 Complete Echo URINALYSIS, COMPLETE W/REFLEX TO CULTURE COMPREHENSIVE METABO LIC PANEL, W/EGFR CBC (INCLUDES DIFF/P LT) Partial Thromboplast in Time, Activated PROTHROMBIN TIME WIT H INR Complete Echo URINALYSIS, COMPLETE W/REFLEX TO CULTURE PARTIAL THROMBOPLAST IN TIME, ACTIVATED PROTHROMBIN TIME WIT H INR CBC (H/H, RBC, INDIC ES, WBC, PLT) BASIC METABOLIC PANE L W/EGFR EP Study w/anesthesi a PROTHROMBIN TIME WIT H INR CBC (INCLUDES DIFF/P LT) LIPID PANEL BASIC METABOLIC PANE L W/EGFR Carotid Duplex Bilat eral Cardiac Cath - Left - [facility] Complete Echo ZIO Holter STR - Adenosine HISTORY OF PROCEDURES Procedure Date Procedure Name Provider Procedure Notes S tatus Complex e/m visit ad d on Mk Alejandra MD completed EKG Mk jc MD completed Complex e/m visit ad d on Juno Foley MD completed Complex e/m visit ad d on Juno Foley MD completed EKG kM jc MD completed EKG Juno Foley MD completed EKG Juno Foley MD completed EKG Juno Foley MD completed EKG Mk jc MD completed EKG Mk jc MD completed EKG Mk jc MD completed ICM Interrogation, Remote (Prof) Juno Foley MD INTERROGATION EVAL REMOTE </30 D CV MNTR SYS completed ICM Interrogation, Remote (Tech) Juno Foley MD INTERROGATION EVAL REMOTE </30 D TECH REVIEW completed EKG Mk jc MD completed ICM Interrogation, Remote (Prof) Juno Foley MD INTERROGATION EVAL REMOTE </30 D CV MNTR SYS completed ICM Interrogation, Remote (Tech) Juno Foley MD INTERROGATION EVAL REMOTE </30 D TECH REVIEW completed ICM Interrogation, Remote (Prof) Juno Foley MD INTERROGATION EVAL REMOTE </30 D CV MNTR SYS completed AICD Interrogation, Remote (Tech) Juno Foley MD INTERROGATION REMOTE </90 D GULLET SLITTER REVIEW completed AICD Interrogation, Remote (Prof) Juno Foley MD INTERROGATION EVAL REMOTE </90 D 1/2/> LD CVDFB completed EKG Juno Foley MD completed ICM Interrogation, Remote (Prof) Juno Foley MD INTERROGATION EVAL REMOTE </30 D CV MNTR SYS completed ICM Interrogation, Remote (Tech) Juno Foley MD INTERROGATION EVAL REMOTE </30 D TECH REVIEW completed ICM Interrogation, Remote (Prof) Juno Foley MD INTERROGATION EVAL REMOTE </30 D CV MNTR SYS completed ICM Interrogation, Remote (Tech) Juno Foley MD INTERROGATION EVAL REMOTE </30 D TECH REVIEW completed Schedule Followup Mk davila MD in 6 mo completed ICM Interrogation, Remote (Prof) Juno Foley MD INTERROGATION EVAL REMOTE </30 D CV MNTR SYS completed ICM Interrogation, Remote (Tech) Juno Foley MD INTERROGATION EVAL REMOTE </30 D TECH REVIEW completed EKG Mk jc MD completed Schedule Followup Mk davila MD after ablation completed EKG Mk jc MD completed Protime Mk jc MD completed ICM Interrogation, Remote (Prof) Mk Alejandra MD INTERROGATION EVAL REMOTE </30 D CV MNTR SYS completed ICM Interrogation, Remote (Tech) Mk Alejandra MD INTERROGATION EVAL REMOTE </30 D TECH REVIEW completed ICM Interrogation, Remote (Prof) Juno Foley MD INTERROGATION EVAL REMOTE </30 D CV MNTR SYS completed AICD Interrogation, Remote (Tech) Juno Foley MD INTERROGATION REMOTE </90 D GULLET SLITTER REVIEW completed AICD Interrogation, Remote (Prof) Juno Foley MD INTERROGATION EVAL REMOTE </90 D 1/2/> LD CVDFB completed Schedule Followup Mk davila MD completed EKG Mk jc MD completed Schedule Followup Mk davila MD NEEDS FU with Dr. [place] joyner. ~10 PVCs per hour. check CMP and magnesium- last K 5,5, if K < 5,0 add spronolactone 12.5 PO daily completed ICM Interrogation, Remote (Prof) Juno Foley MD INTERROGATION EVAL REMOTE </30 D CV MNTR SYS completed ICM Interrogation, Remote (Tech) Juno Foley MD INTERROGATION EVAL REMOTE </30 D TECH REVIEW completed EKG Mk jc MD completed ICM Interrogation, Remote (Prof) Juno Foley MD INTERROGATION EVAL REMOTE </30 D CV MNTR SYS completed ICM Interrogation, Remote (Tech) Juno Foley MD INTERROGATION EVAL REMOTE </30 D TECH REVIEW completed EKG Mk jc MD completed FVC / MVV - 83894 Mk davila MD completed FRC - 57958 Mk jc MD completed SpO2 w/o 6min walk/titration Mk Alejandra MD completed DLCO - 55538 Mk jc MD completed EKG Mk jc MD completed EKG Mk jc MD completed ICM Interrogation, Remote (Prof) Juno Foley MD INTERROGATION EVAL REMOTE </30 D CV MNTR SYS completed ICM Interrogation, Remote (Tech) Juno Foley MD INTERROGATION EVAL REMOTE </30 D TECH REVIEW completed EKG Mk jc MD completed ICM Interrogation, Remote (Prof) Juno Foley MD INTERROGATION EVAL REMOTE </30 D CV MNTR SYS completed ICM Interrogation, Remote (Tech) Juno Foley MD INTERROGATION EVAL REMOTE </30 D TECH REVIEW completed SNOMED-CT: 73327705 Physical Exam, Performed: Pulse Exam of Foot Juno Foley MD completed SNOMED-CT: [id number] Current Medications Documented Juno Foley MD completed EKG Mk jc MD completed EKG Juno Foley MD completed EKG Mk jc MD completed SNOMED-CT: 260081173963468 Current Medications Documented Mk Alejandra MD completed EKG Mk jc MD completed SNOMED-CT: 492742701984108 Current Medications Documented Mk Alejandra MD completed FVC / MVV - 03839 Mk davila MD completed FRC - 23668 Mk jc MD completed SpO2 - 41614 Mk jc MD completed DLCO - 12609 Mk jc MD completed ICM Interrogation, Remote (Prof) Juno Foley MD INTERROGATION EVAL REMOTE </30 D CV MNTR SYS completed ICM Interrogation, Remote (Tech) Juno Foley MD INTERROGATION EVAL REMOTE </30 D TECH REVIEW completed Schedule Followup Mk davila MD in 3 weeks completed EKG Mk jc MD completed SNOMED-CT: 187654724218192 Current Medications Documented Mk Alejandra MD completed ICM Interrogation, Remote (Prof) Juno Foley MD INTERROGATION EVAL REMOTE </30 D CV MNTR SYS completed ICM Interrogation, Remote (Tech) Juno Foley MD INTERROGATION EVAL REMOTE </30 D TECH REVIEW completed Schedule ICD Check Edin Jarrod ck DO completed Schedule Followup Edin Glascoc k DO 6 months completed EKG Edin Lorenzanacock DO completed SNOMED-CT: [id number] Current Medications Documented Edin Lorenzanacock DO completed ICM Interrogation, Remote (Prof) Juno Foley MD INTERROGATION EVAL REMOTE </30 D CV MNTR SYS completed ICM Interrogation, Remote (Tech) Juno Foley MD INTERROGATION EVAL REMOTE </30 D TECH REVIEW completed SNOMED-CT: 36798482 Physical Exam, Performed: Pulse Exam of Foot Juno Foley MD completed SNOMED-CT: 687704637762736 Current Medications Documented Juno Foley MD completed EKG Mk jc MD completed SNOMED-CT: 942204172182382 Current Medications Documented Mk Alejandra MD completed EKG Mk jc MD completed SNOMED-CT: 092604902146796 Current Medications Documented Mk Alejandra MD completed Schedule Followup Mk davila MD 3 months completed SNOMED-CT: 254450386933309 Current Medications Documented Mk Alejandra MD completed EKG Mk jc MD completed Loop Recorder Interrogation, Remote Juno Foley MD INTERROGATION EVALUATION REMOTE </30 D ILR SYS completed ICM Interrogation, Remote (Tech) Juno Foley MD INTERROGATION EVAL REMOTE </30 D TECH REVIEW completed EKG Mk jc MD completed SNOMED-CT: 152751351630605 Current Medications Documented Mk Alejandra MD completed Protime Juno Foley MD completed Protime Juno Foley MD completed SNOMED-CT: 71137171 Physical Exam, Performed: Pulse Exam of Foot Juno Foley MD completed SNOMED-CT: 855993126183438 Current Medications Documented Juno Foley MD completed EKG Mk jc MD completed SNOMED-CT: 394044017801094 Current Medications Documented Mk Alejandra MD completed SNOMED-CT: [id number] Physical Exam, Performed: Pulse Exam of Foot Juno Foley MD completed SNOMED-CT: [id number] Current Medications Documented Juno Foley MD completed Stress EKG Emmy Pham MD completed Regadenoson, 4 units Juno Foley MD completed Cardiolite, 2 units Juno Foley MD completed SPECT Images Emmy Pham MD complet ed EKG Juno Foley MD completed SNOMED-CT: [id number] Current Medications Documented Juno Foley MD completed
--- OUTSIDE RECORDS SUMMARY | 2025-01-12 11:22 | XMS_ITS | Clinical Summary ---
Author Organization [facility] al Address [address] [place] [address] Care Team Providers Care Stave Planer Tender Name Role Phone Dante Collado MD Primary Care Provide r Mk Alejandra MD Unavailable [phone] Allergies Active Allergy Reactions Criticality Noted Date [...] (01/17/2021): Added automatically from request for surgery [id number] Troponin level elevated 03/29/2020 Defibrillator discharge 03/28/2020 Biventricular ICD (implantab le cardioverter-defibrillator) in place 10/28/2019 Cardiomyopathy 10/28/2019 Diabetes mellitus type 2, controlled, without co mplications 10/28/2019 Essential hypertension 10/28/2019 Other hyperlipidemia 10/28/2019 Hypothyroidism 10/28/2019 Sleep apnea 10/28/2019 VT (ventricular tachycardia) 09/28/2017 Chronic systolic congestive heart failure Immunizations Immunization Administration Dates Next Due Influenza, Unspecified 08/27/2019 Surgical History Surgery Date Site/Laterality Comments CARDIAC DEFIBRILLATOR PLACEMENT Pacemaker/Defibrillator placement left chest THUMB SURGERY JOINT REPLACEMENT Bilateral knee replacement BREAST SURGERY Left non-cancerous tumor LOWER LEG SOFT TISSUE TUMOR EXCISION TONSILLECTOMY HYSTERECTOMY APPENDECTOMY OOPHERECTOMY Left COLECTOMY part of intestine removed TEAR DUCT SURGERY Medical History Medical History Date Comments Hypertension Sleep apnea Hyperlipidemia PVC (premature ventricular contraction) LBBB (left bundle branch block) Arrhythmia Cardiomyopathy (HCC) VT (ventricular tachycardia) (HCC) Type 2 diabetes mellitus (HCC) Hypothyroidism Arthritis CHF (congestive heart failure) (HCC) Family History Medical History Relation Name Comments Heart disease Father Diabetes Mother Heart disease Mother Relation Name Status Comments Father Mother Alive Social History Tobacco Use Types Packs/Day Years [...] on file Legal Sex Female 7:03 PM EMPLOYMENT PROGRAM REPRESENTATIVE Gender Identity Not on file Sexual Orientation Not on file Obstetrics History Last Filed Vital Signs Vital Sign Reading Time Taken Comments Blood Pressure 120/81 09/05/2022 8:37 AM EMPLOYMENT PROGRAM REPRESENTATIVE Pulse 66 09/05/2022 8:37 AM EMPLOYMENT PROGRAM REPRESENTATIVE Temperature 36.4 C (97.5 F) 11/18/2021 2:14 PM EMPLOYMENT PROGRAM REPRESENTATIVE Respiratory Rate 25 11/18/2021 6:20 PM EMPLOYMENT PROGRAM REPRESENTATIVE Oxygen Saturation 100% 11/18/2021 6:20 PM EMPLOYMENT PROGRAM REPRESENTATIVE Inhaled Oxygen Concentration - - Weight 66 kg (145 lb 6.4 oz) 09/05/2022 8:37 AM EMPLOYMENT PROGRAM REPRESENTATIVE Height 154.9 cm (5' 1 ) 09/05/2022 8:37 AM EMPLOYMENT PROGRAM REPRESENTATIVE Body Mass Index 27.47 09/05/2022 8:37 AM EMPLOYMENT PROGRAM REPRESENTATIVE Plan of Treatment Health Maintenance Due Date Last Done Comments Albumin Creatinine Ratio, Urine 1950 Breast Cancer Screening-Mammogram 1950 Depression Screening 1950 Fall Risk Assessment 1950 Hemoglobin A1C 1950 Hepatitis C Screening 1950 Osteoporosis Screening-Bone Density Scan 1950 Dilated Eye Exam 1950 Foot Exam 1950 DTaP/Tdap/Td Vaccine (1 - Tdap) 1961 Hepatitis B Screening 1968 Zoster Vaccine (2 of 3) 09/23/2013 07/29/2013 Well Visit 65+ 2015 Lipid Panel 03/28/2021 03/28/2020, 1201/2017, 01/06/2017 eGFR 11/18/2022 11/18/2021, 01/2020, 03/28/2020, Additional history exists Colon Cancer Screening-Colonoscopy 07/01/2023 07/01/2013 Influenza Vaccine (#1) 2024 9, 08/09/2019, 08/08/2019, Additional history exists Colon Cancer Screening-CT Colonography Discontinued 07/01/2013 Colon Cancer Screening-DNA Stool Discontinued 07/01/20 13 Colon Cancer Screening-FIT Discontinued 07/01/2013 Colon Cancer Screening-Sigmoidoscopy Discontinued 07/01/2013 Pneumococcal vaccine 65+ Completed 09/17/2022, 08/28 Medical Devices Implanted Type Area Greenskeeper Device Identifier Shelf Expiration Date Model / Serial / Lot Biot[employer]ik Inc [id number] Solia S 45cm Bipolar Active Fixation Lead Pacing Steroid Eluting - [id number] - [id number] Implanted:Qty: 1 on 09/22/2019 by Mk Alejandra MD at [facility] Lead [employer] [id number] 06/26/2021 [id number] / [id number] / Lead Icd Sentus Promri Left Ventricular Otw Quadripolar L-85/49 - [id number] - [id number] Implanted:Qty: 1 on 04/09/2018 by Mk Alejandra MD at [facility] [employer] 12/25/2019 [id number] / [id number] / [employer]ig [employer] [id number] Angio-Seal Vip Bondek-Plus 8fr .038in 70cm Hemostatic Latex Free - [id number] Implanted:Qty: 1 on 10/13/2018 by Mk Alejandra MD at [facility] [employer] 05/26/2019 [id number] / / [id number] Procedures Procedure Name Priority Date/Time Associated Diagnosis Comments EGFR STAT 11/18/2021 3:26 PM EMPLOYMENT PROGRAM REPRESENTATIVE LIPID PANEL Timed 03/28/2020 1:05 PM CDT COLONOSCOPY REPORT 07/01/2013 from Last 3 Months or Most Recently Relevant to Health Maintenance Results * eGFR (11/18/2021 3:26 PM EMPLOYMENT PROGRAM REPRESENTATIVE) eGFR 73 mL/min/1. 73 m2 MAT FERREIRA [...] last reviewed 2021. Blood 11/18/2021 3:26 PM EMPLOYMENT PROGRAM REPRESENTATIVE 11/18/2021 3:33 PM EMPLOYMENT PROGRAM REPRESENTATIVE us Felisha Porter MD LAB BLOOD ORDERABLES Final Resu lt MAT FERREIRA [id number] Department [place] [address] * Lipid panel (03/28/2020 1:05 PM CDT) [...] on 2018. HDL 50 >=40 mg/dL MAT Comment: Interpretive Data Ages < [...] 2018. LDL, calculated 53 <=129 mg/dL MAT Comment: Interpretive Data Ages < [...] on 2018. Non-HDL Cholesterol 75 mg/dL MAT Comment: Interpretive Data Ages < [...] revised on 2018. Chol/HDL ratio 2 MAT FERREIRA Blood specimen (specimen) 03/28/2020 1:05 PM CDT 03/28/2020 1:24 PM CDT Narrative MAT FERREIRA - 03/28/2020 2:40 PM CDT This lipid panel was automatically ordered due to a critical delta for Troponin- T. The dietary status of the patient at the collection time should be correlated with the lipid results. Elieser Mckeon MD LAB [place] [id number] [address] Department of Laboratories [place] [id number] * COLONOSCOPY REPORT (07/01/2013) Anatomical Region Laterality Modality Other Narrative 07/01/2013 Ordered by an unspecified provider. Historical Provider GI PROCEDURE ORDERABLES F inal Result from Last 3 Months or Most Recently Relevant to Health Maintenance Insurance MEDICARE [facility] Address: [address] [address] AETNA SENIOR SUPPLEMENT MEDICARE [facility] MEDICARE AETNA Advance Directives For more information, please contact: [phone] * Full Code (Latest Code Status on [...] 11:02 PM 10/01/2017 2:07 PM Care Teams Stave Planer Tender Relationship Specialty Start Date End Date Dante Collado MD [address] [address] PCP - General 09/10/17 [place] [id number] [address] Consulting Physician Cardiology 10/01/17
== END 2025-01-12 10:03 | disposition home or self-care (01) ==
LOC: ANHIMG 10:03
PROVIDERS: Visit Provider Surgery
DX: N63.15 Unspecified lump in the right breast, overlapping quadrants (principal)
CPT/HCPCS: 76642

== ENCOUNTER 2025-01-24 08:58 | Outpatient (CLI) | payer MEDICARE, SELFPAY ==
--- NOTE | ~2025-01-24 | CT_ITS ---
EXAMINATION: CT sinus wo con DATE: 01/24/2025 09:14 INDICATION: Chronic sinusitis TECHNIQUE: Computed tomography (CT) of the paranasal sinuses was performed without intravenous contra st. The dose-length product was 269.39 mGy-cm. Automated exposure control and iterative reconstructio n technique were employed. COMPARISON: CT dated 02/24/2021 FINDINGS: Leftward nasal septal deviation. Ostiomeatal units are patent. No significant mucosal thick ening of the paranasal sinuses. No air-fluid levels. No mucoperiosteal reaction. Mastoids are pneumat ized. IMPRESSION: 1. No significant sinus disease. Reviewed, dictated and finalized at location A.
== END 2025-01-24 08:59 | disposition home or self-care (01) ==
PROVIDERS: PCP Internal Medicine; Visit Provider Allergy & Immunology
DX: J32.9 Chronic sinusitis, unspecified (principal)
CPT/HCPCS: 70486

== ENCOUNTER 2025-01-31 11:11 | Outpatient (CLI) | payer MEDICARE, SELFPAY ==
--- NOTE | ~2025-01-31 | CT_ITS ---
CT abdomen pelvis w con Ordering provider: Jason Goldstein MD History: 74 years Female with . R10.9 - Unspecified abdominal pain . Comparison: None. Technique: CT abdomen and pelvis with IV and without oral contrast. Automated exposure control and it erative reconstruction technique were employed. The dose-length product was 342.61 mGy-cm. 100 mL Omn ipaque 350 was given IV. Findings: VISUALIZED LOWER CHEST: Minimal pericardial effusion. UPPER ABDOMINAL ORGANS: Liver: Normal. Gallbladder: Normal. Spleen: Normal. Stomach/duodenum: Thickening is seen in the area of the stomach proximally Pancreas: Normal. Adrenals: Normal. Kidneys: Normal. PELVIC ORGANS: The bladder is underfilled with slightly thickened wall. Evaluation for cystitis advis ed. BOWEL AND MESENTERY: Colon: Thickening in the sigmoid colon is noted which may indicate colitis versus diverticulitis. Fur ther evaluation advised. Underlying mass also cannot be excluded. Postoperative changes seen in the r ectosigmoid area. The appendix is not demonstrated. Small Bowel: Normal. No obstruction. Peritoneum/mesentery: No free air. Minimal Free fluid seen in the pelvis collection measuring 3.4 x 1 .7 cm cannot be excluded.. No mesenteric lymphadenopathy. RETROPERITONEUM: Mild atheromatous disease of the abdominal aorta. No retroperitoneal lymphadenopat hy. MUSCULOSKELETAL: Superficial soft tissues: The superficial soft tissues are normal. Bones: Age appropriate degenerative changes of the spine. IMPRESSION: 1. Thickening in the wall of the sigmoid colon with surrounding fat stranding suggestive of colitis versus diverticulitis. Underlying mass cannot be excluded. Further evaluation advised. 2. Minimal fluid seen in the right side of the pelvis which may be ascites or collection. Follow-up advised. 3. Minimal pericardial effusion. Reviewed, dictated and finalized at location A. IMPRESSION: 1. Thickening in the wall of the sigmoid colon with surrounding fat stranding suggestive of colitis versus diverticulitis. Underlying mass cannot be excluded . Further evaluation advised. 2. Minimal fluid seen in the right side of the pelvis which may be ascites or collection. Follow-up advised. 3. Minimal pericardial effusion.
[2025-01-31 11:57] LABS: Basophils Absolute Auto 0.1 K/mm3 (0.0-0.1); Basophils Percent Auto 0.4 % (0.2-1.2); Eosinophils Absolute Auto 0.1 K/mm3 (0-0.3); Eosinophils Percent Auto 0.6 % (0-4.4); Hematocrit 39.3 % (37.0-47.0); Hemoglobin 12.5 g/dL (12.0-15.0); Immature Granulocyte Absolute 0.06 K/mm3 (0.00-0.031); Immature Granulocyte Percent A 0.5 % (0-0.5); Lymphocytes Absolute Auto 1.02 K/mm3 (0.9-3.2); Lymphocytes Percent Auto 7.8 % (18.3-44.2); Mean Corpuscular HGB Conc 31.8 g/dl (32-36); Mean Corpuscular Hemoglobin 30.3 pg (26-34); Mean Corpuscular Volume 95.2 fl (80-100); Mean Platelet Volume 12.5 fl (7.4-10.4); Neutrophils Absolute Auto 9.9 K/mm3 (1.3-6.7); Neutrophils Percent Auto 75.7 % (45.5-73.1); Platelet Count Result 108 k/mm3 (150-375); Red Blood Count 4.13 M/mm3 (4.2-5.4)
[2025-01-31 12:00] LABS: Anion Gap 5 mmol/L (4-12); Blood Urea Nitrogen 9 mg/dL (7-17); Calcium 8.9 mg/dL (8.4-10.2); Carbon Dioxide 26 mmol/L (22-30); Chloride 104 mmol/L (98-107); Estimated Glomerular Filt Rate > 60; Glucose 103 mg/dL (65-110); Potassium 4.2 mmol/L (3.4-5.0); Sodium 135 mmol/L (137-145)
--- OUTSIDE RECORDS SUMMARY | 2025-01-31 13:01 | XMS_ITS | Clinical Summary ---
Author Organization [facility] Address [address] [facility] [address] [place] [address] Phone Care Team Providers Care Hydroelectric Station Operator Name Role Phone Duglas Collado MD Primary [...] Encounters Date Type Department Care Team Description 01/12/2025 External Device Data STL ABSTRACTION Provider, Abstract [...] Comments Blood Pressure 104/71 2024 2:17 PM GYMNASTICS INSTRUCTOR Pulse 91 2024 2:17 PM GYMNASTICS INSTRUCTOR Temperature 36.9 C (98.4 F) 2024 2:17 PM GYMNASTICS INSTRUCTOR Respiratory Rate 15 2024 2:17 PM GYMNASTICS INSTRUCTOR Oxygen Saturation 95% 2024 2:17 PM GYMNASTICS INSTRUCTOR Inhaled Oxygen Concentration - - Weight 69.3 kg (152 lb 12.8 oz) 2024 2:17 PM GYMNASTICS INSTRUCTOR Height 152.4 cm (5') 04/25/2022 11:38 AM CDT Body Mass Index 29.84 04/25/2022 11:38 AM CDT Plan of Treatment Upcoming Encounters Date Type Department Care Team (Late st Contact Info) Description 04/12/2025 11:00 AM CDT Office Visit [facility]3] Oncology and Hematology - [place] [facility] [address] [place] [address] Brandon Willis MD [address] [facility] [address] [place] [address] Health Maintenance Due Date Last Done Comments DIABETES ANNUAL FOOT EXAM 1968 DIABETES MICROALBUMIN ANNUAL SCREEN 1968 LDL CHOLESTEROL ANNUAL 1968 DTAP/TDAP/TD VACCINES (1 - Tdap) 1969 FIT-DNA Q 3 years 1995 FIT/FOBT Q 1 year 1995 Flex Sig/CT Colonography Q 5 years 1995 ZOSTER VACCINE (2 of 3) 09/23/2013 07/29/2013 DIABETES ANNUAL RETINAL EXAM 02/19/2023, 12/04/2021, 12/04/2021, Additional history exists INFLUENZA VACCINE (#1) 2024 2, 08/14/2021, 08/09/2019, Additional history exists DIABETES HBA1C Q 6 MONTHS 02/02/20252023, 03/16/2024, 09/02/2023, Additional history exists BREAST CANCER SCREENING 03/16/2025 03/16/20 24, 02/13/2024, 02/13/2024, Additional history exists RSV VACCINE (60+ or ) (1 - 1-dose 75+ series) 2025 COLORECTAL SCREENING 11/07/2032 11/07/2022, 07/01/20 13 Colorectal Cancer Screening 11/07/2032 PNEUMOCOCCAL VACCINE 50+ YEARS Completed 09/17/2022 , 09/19/2019 OSTEOPOROSIS SCREENING Completed 11/28/2023, 2020 Medical Devices Implanted Type Area Proprietary Trader Device Identifier Shelf Expiration Date Model / Serial / Lot Lap Band,Bilat Knee Replacement Implanted:(Quantit y not on file) Explanted:(Quantit y not on file) Insurance MEDICARE PART [facility] B [facility] SUPP AESSI MEDICARE PART A AND B [employer] MEDICARE SUPP AESSI Advance Directives For more information, please contact: [phone] * Full Code (Latest Code Status on File) Date Activated Date Inactivated Comments 07/05/2014 8:17 AM 07/05/2014 11:32 AM * Full Code Date Activated Date Inactivated Comments 07/05/2014 6:54 AM 07/05/2014 8:17 AM Care Teams Hydroelectric Station Operator Relationship Specialty Start Date End Date Duglas Collado MD PCP - General Internal Medicine 03/27/22
--- OUTSIDE RECORDS SUMMARY | 2025-01-31 13:01 | XMS_ITS | Clinical Summary ---
Author Organization [facility] al Address [address] [place] [address] Care Team Providers Care Electrotype Molder Name Role Phone Dante Collado MD Primary Care Provide r Mk Alejandra MD Unavailable [phone] Allergies Active Allergy Reactions Criticality Noted Date [...] (01/17/2021): Added automatically from request for surgery [id number] Troponin level elevated 03/29/2020 Defibrillator discharge 03/28/2020 [...] on file Legal Sex Female 7:03 PM CAR FERRIER Gender Identity Not on file Sexual Orientation Not on file Obstetrics History Last Filed Vital Signs Vital Sign Reading Time Taken Comments Blood Pressure 120/81 09/05/2022 8:37 AM CAR FERRIER Pulse 66 09/05/2022 8:37 AM CAR FERRIER Temperature 36.4 C (97.5 F) 11/18/2021 2:14 PM CAR FERRIER Respiratory Rate 25 11/18/2021 6:20 PM CAR FERRIER Oxygen Saturation 100% 11/18/2021 6:20 PM CAR FERRIER Inhaled Oxygen Concentration - - Weight 66 kg (145 lb 6.4 oz) 09/05/2022 8:37 AM CAR FERRIER Height 154.9 cm (5' 1 ) 09/05/2022 8:37 AM CAR FERRIER Body Mass Index 27.47 09/05/2022 8:37 AM CAR FERRIER Plan of Treatment Health Maintenance Due Date [...] 09/17/2022, 08/28 Medical Devices Implanted Type Area High School Business Teacher Device Identifier Shelf Expiration Date Model / Serial / Lot Bi[employer]ik Inc [id number] Solia S 45cm Bipolar Active Fixation Lead Pacing Steroid Eluting - [id number] - [id number] Implanted:Qty: 1 on 09/22/2019 by Mk Alejandra MD at [facility] Lead [employer] [id number] 06/26/2021 [id number] / [id number] / Lead Icd Sentus Promri Left Ventricular Otw Quadripolar L-85/49 - [id number] - [id number] Implanted:Qty: 1 on 04/09/2018 by Mk Alejandra MD at [facility] [employer] 12/25/2019 [id number] / [id number] / [employer] [id number] Angio-Seal Vip Bondek-Plus 8fr .038in 70cm Hemostatic Latex Free - [id number] Implanted:Qty: 1 on 10/13/2018 by Mk Alejandra MD at [facility] [employer] 05/26/2019 [id number] / / [id number] Procedures Procedure Name Priority Date/Time Associated Diagnosis Comments EGFR STAT 11/18/2021 3:26 PM CAR FERRIER LIPID PANEL Timed 03/28/2020 1:05 PM CDT COLONOSCOPY REPORT 07/01/2013 from Last 3 Months or Most Recently Relevant to Health Maintenance Results * eGFR (11/18/2021 3:26 PM CAR FERRIER) eGFR 73 mL/min/1. 73 m2 MAT FERREIRA [...] last reviewed 2021. Blood 11/18/2021 3:26 PM CAR FERRIER 11/18/2021 3:33 PM CAR FERRIER us Felisha Porter MD LAB BLOOD ORDERABLES Final Resu lt MAT FERREIRA [id number] Department [place] [address] * Lipid panel (03/28/2020 1:05 PM CDT) [...] LAB BLOOD [place] [id number] [address] Department of Laboratories [place] [phone] * COLONOSCOPY REPORT (07/01/2013) Anatomical Region Laterality Modality Other Narrative 07/01/2013 Ordered by an unspecified provider. Historical Provider GI PROCEDURE ORDERABLES F inal Result from Last 3 Months or Most Recently Relevant to Health Maintenance Insurance MEDICARE AET[employer] SENIOR SUPPLEMENT MEDICARE [facility] MEDICARE AETNA Advance Directives For more information, please contact: [phone] * Full Code (Latest Code Status on [...] 11:02 PM 10/01/2017 2:07 PM Care Teams Electrotype Molder Relationship Specialty Start Date End Date Dante Collado MD [address] [address] PCP - General 09/10/17 [place] [address] [address] Consulting Physician Cardiology 10/01/17
--- OUTSIDE RECORDS SUMMARY | 2025-01-31 13:01 | XMS_ITS | Referral Summary ---
Author Organization [facility] al Address [address] [place] [address] Care Team Providers Care Firesetter Name Role Phone Dante Collado MD Primary Care Provide r Mk Alejandra MD Unavailable [phone] Allergies Active Allergy Reactions Criticality Noted Date [...] (01/17/2021): Added automatically from request for surgery [id number] Troponin level elevated 03/29/2020 Defibrillator discharge 03/28/2020 [...] on file Legal Sex Female 7:03 PM LYE BATH OPERATOR Gender Identity Not on file Sexual Orientation Not on file Last Filed Vital Signs Vital Sign Reading Time Taken Comments Blood Pressure 120/81 09/05/2022 8:37 AM LYE BATH OPERATOR Pulse 66 09/05/2022 8:37 AM LYE BATH OPERATOR Temperature 36.4 C (97.5 F) 11/18/2021 2:14 PM LYE BATH OPERATOR Respiratory Rate 25 11/18/2021 6:20 PM LYE BATH OPERATOR Oxygen Saturation 100% 11/18/2021 6:20 PM LYE BATH OPERATOR Inhaled Oxygen Concentration - - Weight 66 kg (145 lb 6.4 oz) 09/05/2022 8:37 AM LYE BATH OPERATOR Height 154.9 cm (5' 1 ) 09/05/2022 8:37 AM LYE BATH OPERATOR Body Mass Index 27.47 09/05/2022 8:37 AM LYE BATH OPERATOR Plan of Treatment Not on file Medical Devices Implanted Type Area Production Leader Device Identifier Shelf Expiration Date Model / Serial / Lot [employer] [id number] Solia S 45cm Bipolar Active Fixation Lead Pacing Steroid Eluting - [id number] - [id number] Implanted:Qty: 1 on 09/22/2019 by Mk Alejandra MD at [facility] Lead [employer] [id number] 06/26/2021 [id number] / [id number] / Lead Icd Sentus Promri Left Ventricular Otw Quadripolar L-85/49 - [id number] - [id number] Implanted:Qty: 1 on 04/09/2018 by Mk Alejandra MD at [facility] [employer] 12/25/2019 [id number] / [id number] / [employer] [id number] Angio-Seal Vip Bondek-Plus 8fr .038in 70cm Hemostatic Latex Free - [id number] Implanted:Qty: 1 on 10/13/2018 by Mk Alejandra MD at [facility] [employer] 05/26/2019 [id number] / / [id number] Procedures Procedure Name Priority Date/Time Associated Diagnosis Comments EGFR STAT 11/18/2021 3:26 PM LYE BATH OPERATOR LIPID PANEL Timed 03/28/2020 1:05 PM CDT COLONOSCOPY REPORT 07/01/2013 from Last 3 Months or Most Recently Relevant to Health Maintenance Results * eGFR (11/18/2021 3:26 PM LYE BATH OPERATOR) eGFR 73 mL/min/1. 73 m2 MAT [...] last reviewed 2021. Blood 11/18/2021 3:26 PM LYE BATH OPERATOR 11/18/2021 3:33 PM LYE BATH OPERATOR us Felisha Porter MD LAB BLOOD ORDERABLES Final Resu lt MAT FERREIRA [id number] Department [place] [address] * Lipid panel (03/28/2020 1:05 [...] LAB [place]LOOD [place] [id number] [address] Department of Laboratories [place] [id number] * COLONOSCOPY REPORT (07/01/2013) Anatomical Region Laterality Modality Other Narrative 07/01/2013 Ordered by an unspecified provider. [facility] Provider GI PROCEDURE ORDERABLES F inal Result from Last 3 Months or Most Recently Relevant to Health Maintenance Insurance MEDICARE A[employer]NA SENIOR SUPPLEMENT MEDICARE AETNA SENIOR SUPPLEMENT MEDICARE AETNA Advance Directives For more information, please contact: [phone] * Full Code (Latest Code Status on [...] 11:02 PM 10/01/2017 2:07 PM Care Teams Firesetter Relationship Specialty Start Date End Date Dante Collado MD [address] [facility] [address] [place] [address] PCP - General 09/10/17 [place] [address] [place] [id number] [place] [address] Consulting Physician Cardiology 10/01/17
--- OUTSIDE RECORDS SUMMARY | 2025-01-31 13:02 | XMS_ITS | CONTINUITY OF CARE DOCUMENT ---
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 Dizziness active Juno Foley MD Ventricular tachycardia, [...] Date Type Provider Location Encounter Diag nosis 8 - 8 In-person encounter Office Visit Juno Foley MD [facility] 4 - 4 In-person encounter Office Visit Juno Foley MD [facility] Chest pain-type to be determined 8 - 3 In-person encounter Office Visit Mk Alejandra MD [facility] Shortness of breathDiabetes Mellitus, Type II, controlled w/vascular complications 3 - 3 In-person encounter Office Visit Juno Foley MD [facility] 8 - 8 In-person encounter Office Visit Juno Foley MD [facility] 9 - 2 In-person encounter Office Visit Mk Alejandra MD [facility] 5 - 5 In-person encounter Office Visit Mk Alejandra MD [facility] 1 - 1 In-person encounter Office Visit Mk Alejandra MD [facility] 6 - 6 In-person encounter Office Visit Mk Alejandra MD [facility] 0 - 0 In-person encounter Office Visit Juno Foley MD [facility] 5 - 5 In-person encounter Office Visit Juno Foley MD [facility] 1 - 1 In-person encounter Office Visit Juno Foley MD [facility] 4 - 4 In-person encounter Office Visit Juno Foley MD [facility] Panic attack?CAD, nonobstructive disease on cath 2017 4 - 6 In-person encounter Office Visit Juno Foley MD [facility] 0 - 0 In-person encounter Office Visit Juno Foley MD [facility] 7 - 7 In-person encounter Office Visit Juno Foley MD [facility] Panic attack? 0 - 2 In-person encounter Office Visit Juno Foley MD [facility] 4 - 4 In-person encounter Office Visit Juno Foley MD [facility] 4 - 7 In-person encounter Office Visit Juno Foley MD [facility] 2 - 2 In-person encounter Office Visit Juno Foley MD [facility] 6 - 6 In-person encounter Office Visit Juno Foley MD [facility] 4 - 4 In-person encounter Office Visit Juno Foley MD [facility] 6 - 6 In-person encounter Office Visit Mk Alejandra MD [facility] Office S/P Medtronic (MRI Safe) REVEAL/LinQ 3 - 3 In-person encounter Office Visit Mk Alejandra MD [facility] 6 - 6 In-person encounter Office Visit Mk Alejandra MD [facility] 5 - 6 In-person encounter Office Visit Mk Alejandra MD [facility] 3 - 3 In-person encounter Office Visit Mk Alejandra MD [facility] 4 - 5 In-person encounter Office Visit Mk Alejandra MD [facility] 8 - 3 In-person encounter Office Visit Mk Alejandra MD [facility] 1 - 1 In-person encounter Office Visit Mk Alejandra MD [facility] 0 - 0 In-person encounter Office Visit Juno Foley MD [facility] SyncopeDiabetes mellitus type II 8 - 4 In-person encounter Office Visit Juno Foley MD [facility] 0 - 0 In-person encounter Office Visit Mk Alejandra MD [facility] Leg edema, bilateral 6 - 2 In-person encounter Office Visit Mk Alejandra MD [facility] Urinary tract infection 4 - 4 In-person encounter Office Visit Mk Alejandra MD [facility] 9 - 9 In-person encounter Office Visit Mk Alejandra MD [facility] 7 - 7 In-person encounter Office Visit Mk Alejandra MD [facility] 0 - 0 In-person encounter Office Visit Juno Foley MD [facility] 0 - 0 In-person encounter Office Visit Mk Alejandra MD [facility] S/P BiV ICD Biotronik//Genchange BiV ICD Biotronik 12/22/23 ( MRI Safe) 6 - 6 In-person encounter Office Visit Emmy Pham MD [facility] 0 - 5 In-person encounter Office Visit Mk Alejandra MD [facility] Examination, preoperative cardiovascular 1 - 4 In-person encounter Office Visit Mk Alejandra MD [facility] 1 - 1 In-person encounter Office Visit Juno Foley MD [facility] 4 - 4 In-person encounter Office Visit Mk Alejandra MD [facility] Ventricular tachycardia, sustained 1 - 1 In-person encounter Office Visit Juno Foley MD [facility] 0 - 1 In-person encounter Office Visit Juno Foley MD [facility] Dizziness 6 - 6 In-person encounter Office Visit Mk Alejandra MD [facility] 9 - 9 In-person encounter Office Visit Mk Alejandra MD [facility] 2 - 7 In-person encounter Office Visit Mk Alejandra MD [facility] 4 - 6 In-person encounter Office Visit Edin Suresh DO [facility] 8 - 8 In-person encounter Office Visit Juno Foley MD [facility] 2 - 2 In-person encounter Office Visit Mk Alejandra MD [facility] 1 - 6 In-person encounter Office Visit Mk Alejandra MD [facility] 5 - 5 In-person encounter Office Visit Mk Alejandra MD [facility] FatigueNausea/Vomiting 2 - 2 In-person encounter Office Visit Mk Alejandra MD [facility] 7 - 7 In-person encounter Office Visit Juno Foley MD [facility] 4 - 7 In-person encounter Office Visit Mk Alejandra MD [facility] Other symptoms involving cardiovascular systemObesityLBBBMitral regurgitationCHFVentricular tachycardia, nonsustained 3 - 3 In-person encounter Office Visit Juno Foley MD [facility] CardiomyopathyPVC's 0 - 0 In-person encounter Office Visit Juno Foley MD [facility] HyperlipidemiaHTN essentialDiverticulitis, colonHypothyroidismPreoperative cardiovascular examinationSleep apnea--on C-papAbnormal EKGShortness of breath VITAL SIGNS Date Observation Value Provider Body Mass Index (Ratio) 28.32 kg/m2 Onur Foley MD blood pressure, cuff size regular Ke rri Mally blood pressure, diastolic 80 mm[Hg] Ke rri Mally blood pressure, systolic 112 mm[Hg] Rosa Maria Bal oxygen saturation, oximetry 96 % Qi Bal pulse rate 85 /min Qi Flores lder weight E&M 145 [lb_av] Qi Flores [facility] height E&M 60 [in_i] Qi Flores [facility] Body Mass Index (Ratio) 28.90 kg/m2 Onur Foley MD blood pressure, diastolic 89 mm[Hg] Yasmin shirley Nazlini blood pressure, systolic 127 mm[Hg] [facility], oximetry 95 % [facility] pulse rate 103 /min [facility] respiratory rate E&M 12 /min [facility] weight E&M 148 [lb_av] [facility] height E&M 60 [in_i] [facility] blood pressure, cuff size regular [facility]Re[facility] blood pressure, diastolic -1 mm[Hg] Cailin nkLog blood pressure, systolic 129 mm[Hg] Snehal kLog Body Mass Index (Ratio) 29.49 kg/m2 Barrett Bradleyzai blood pressure, diastolic 79 mm[Hg] Jessica yla [facility] blood pressure, systolic 129 mm[Hg] Radha la [facility] blood pressure, cuff size regular Jessica yla [facility] pulse rate 82 /min T[facility] oxygen saturation, oximetry 96 % [facility] weight E&M 151 [lb_av] Tania [facility] height E&M 60 [in_i] Tania [facility] Body Mass Index (Ratio) 29.88 kg/m2 Onur Foley MD blood pressure, cuff size regular Matheus Diana blood pressure, diastolic 82 mm[Hg] Ta elvis Diana blood pressure, systolic 132 mm[Hg] Tab ithabby Diana oxygen saturation, oximetry 97 % Jordynabby Diana pulse rate 75 /min Jordyn Cadwell weight E&M 153 [lb_av] Jordyn Cadwell respiratory rate E&M 12 /min Jordyn Cadwell height E&M 60 [in_i] Jordyn Cadwell Body Mass Index (Ratio) 29.53 kg/m2 Onur Foley MD pulse rate 74 /min [facility] blood pressure, cuff size large Matheus leal Cadwell blood pressure, diastolic 78 mm[Hg] [facility], systolic 124 mm[Hg] [facility] oxygen saturation, oximetry 96 % [facility] respiratory rate E&M 12 /min [facility] weight E&M 151.2 [lb_av] [facility] height E&M 60 [in_i] Jordyn Cadwell Body Mass Index (Ratio) 29.49 kg/m2 [facility] blood pressure, cuff size regular Ja [facility] blood pressure, diastolic 76 mm[Hg] [facility] blood pressure, systolic 128 mm[Hg] [facility] pulse rate 62 /min [facility] oxygen saturation, oximetry 99 % [facility] respiratory rate E&M 14 /min [facility] weight E&M 151 [lb_av] [facility] height E&M 60 [in_i] [facility] y Body Mass Index (Ratio) 29.88 kg/m2 Barrett rae blood pressure, cuff size regular [facility] blood pressure, diastolic 80 mm[Hg] Ke rri Grueneelder blood pressure, systolic 112 mm[Hg] Rosa Maria Clintoner oxygen saturation, oximetry 98 % Qi Bal respiratory rate E&M 12 /min Qi awadelder pulse rate 71 /min Qi Flores er weight E&M 153 [lb_av] Qi Flores er height E&M 60 [in_i] Qi Flores er Body Mass Index (Ratio) 30.27 kg/m2 Onur Foley MD blood pressure, diastolic 72 mm[Hg] Cailin nkLogic blood pressure, systolic 118 mm[Hg] Snehal kLog blood pressure, cuff size regular Deric rret blood pressure, diastolic 72 mm[Hg] Deric rret blood pressure, systolic 118 mm[Hg] La ret oxygen saturation, oximetry 97 % Deshawn respiratory rate E&M 12 /min Deshawn pulse rate 51 /min Deshawn weight E&M 155 [lb_av] Deshawn y height E&M 60 [in_i] Deshawn er y Body Mass Index (Ratio) 28.82 kg/m2 Onur Foley MD blood pressure, diastolic 79 mm[Hg] [facility] blood pressure, systolic 120 mm[Hg] Flor Wood oxygen saturation, oximetry 98 % Karime Wood pulse rate 66 /min Karime Wood respiratory rate E&M 18 /min Karime fortune weight E&M 147.6 [lb_av] Karime Wood height E&M 60 [in_i] Karime Israel Body Mass Index (Ratio) 28.32 kg/m2 Onur Foley MD blood pressure, diastolic 78 mm[Hg] Ri raj Neely blood pressure, systolic 114 mm[Hg] Arsalan mirela Neely blood pressure, cuff size regular Ri raj Neely oxygen saturation, oximetry 98 % Tracee Neely respiratory rate E&M 16 /min Anjel Neely pulse rate 66 /min Tracee ying weight E&M 145 [lb_av] Tracee ying height E&M 60 [in_i] Tracee ying Body Mass Index (Ratio) 27.73 kg/m2 Onur Foley MD blood pressure, diastolic 59 mm[Hg] Gaston Parra Nelson blood pressure, systolic 101 mm[Hg] Blake Damon oxygen saturation, oximetry 97 % Dani Damon respiratory rate E&M 18 /min Devon Damon pulse rate 76 /min Dani ying weight E&M 142 [lb_av] Dani ying blood pressure, cuff size regular Gaston Aida Damon height E&M 60 [in_i] Dani ying Body Mass Index (Ratio) 28.71 kg/m2 Eloisa ssa Puhse blood pressure, diastolic 78 mm[Hg] Sa [...] Foley MD blood pressure, diastolic 80 mm[Hg] Evon Mcgrathwendy Velasco blood pressure, systolic 130 mm[Hg] Mindy Granda Rod oxygen saturation, oximetry 97 % Amadeo Velasco respiratory rate E&M 16 /min Kaia gerardo ManciniVelasco pulse rate 71 /min Amadeo Cain kristin weight E&M 155.6 [lb_av] AmadeoMicaela benedict height E&M 60 [in_i] Amadeo Cain kristin Body Mass Index (Ratio) 28.90 kg/m2 Onur Foley MD blood pressure, diastolic 70 mm[Hg] Li nkLogskip blood pressure, systolic 129 mm[Hg] Snehal kLogskip blood pressure, diastolic 70 mm[Hg] Rh onda Sahra blood pressure, systolic 129 mm[Hg] Rho ndabby Bocanegra oxygen saturation, oximetry 98 % Vanessa Bocanegra pulse rate 68 /min Vanessa Sahra respiratory rate E&M 16 /min Vanessa Sahra weight E&M 148 [lb_av] Vanessa Sahra blood pressure, cuff size regular Rh sandra Sahra height E&M 60 [in_i] Vanessa Sahra Body Mass Index (Ratio) 30.46 kg/m2 Donte Alejandra MD blood pressure, cuff size regular Cy ron Hemal blood pressure, diastolic 70 mm[Hg] Cy ron Hemal blood pressure, systolic 102 mm[Hg] Nneka lucila Hemal pulse rate 72 /min Natalia Vannbel l respiratory rate E&M 16 /min Natalia Recio oxygen saturation, oximetry 98 % Natalia Hemal weight E&M 156 [lb_av] Natalia Campbel l height E&M 60 [in_i] Natalia Campbel l Body Mass Index (Ratio) 29.60 kg/m2 [...] Foley MD blood pressure, diastolic 60 mm[Hg] Evon Velasco blood pressure, systolic 110 mm[Hg] Mindy Velasco oxygen saturation, oximetry 97 % Amadeo Velasco respiratory rate E&M 16 /min Kaia Velasco pulse rate 71 /min Amadeo foster weight E&M 168 [lb_av] Amadeo foster height E&M 60 [in_i] Amadeo foster Body Mass Index (Ratio) 34.84 kg/m2 Onur Foley MD blood pressure, diastolic 60 mm[Hg] Evon Claudia Mancinienson blood pressure, systolic 108 mm[Hg] Mindy Velasco oxygen saturation, oximetry 98 % Amadeo Mancinienson respiratory rate E&M 18 /min Kaia Velasco pulse rate 70 /min Amadeo foster weight E&M 178.4 [lb_av] Amadeo benedict height E&M 60 [in_i] Amadeo foster Body Mass Index (Ratio) 34.80 kg/m2 Onur Foley MD blood pressure, diastolic 70 mm[Hg] Evon Claudia Velasco blood pressure, systolic 136 mm[Hg] Mindy Velasco oxygen saturation, oximetry 98 % Amadeo Velasco respiratory rate E&M 18 /min Kaia Velasco pulse rate 71 /min Amadeo foster weight E&M 178.2 [lb_av] Amadeo benedict height E&M 60 [in_i] Amadeo foster Body Mass Index (Ratio) 34.80 kg/m2 Vinh Pelaez blood pressure, diastolic 70 mm[Hg] Evon Velasco blood pressure, systolic 122 mm[Hg] Mindy Granda Velasco oxygen saturation, oximetry 97 % Amadeo Velasco respiratory rate E&M 18 /min Kaia Velasco pulse rate 72 /min Amadeo Cain nsjose alberto weight E&M 178.2 [lb_av] Amadeo esquedaon height E&M 60 [in_i] Amadeo Cain nson Body Mass Index (Ratio) 36.32 kg/m2 Jord en Benigno blood pressure, diastolic 71 mm[Hg] Cy nthia Recio blood pressure, systolic 118 mm[Hg] Nneka thia Recio blood pressure, cuff size regular Cy nttoñaa Recio pulse rate 749 /min Natalia Campbel l oxygen saturation, oximetry 97 % Natalia Recio respiratory rate E&M 16 /min Natalia Recio weight E&M 186 [lb_av] Natalia Campbel l height E&M 60 [in_i] Natalia Campbel l Body Mass Index (Ratio) 36.52 kg/m2 Jord en Benigno blood pressure, diastolic 60 mm[Hg] Ch astity Donald blood pressure, systolic 118 mm[Hg] Laura stity Donald oxygen saturation, oximetry 97 % Chastity Donald pulse rate 90 /min Chastity Donald respiratory rate E&M 16 /min Chastit y Donald weight E&M 187 [lb_av] Chastity Donald height E&M 60 [in_i] Chastity Donald Body Mass Index (Ratio) 36.32 kg/m2 Jord en Benigno blood pressure, cuff size regular Kr isty [place] blood pressure, diastolic 90 mm[Hg] Kr isty [place] blood pressure, systolic 120 mm[Hg] Kri sty [place] pulse rate 78 /min Luda Soy oxygen saturation, oximetry 97 % Luda respiratory rate E&M 18 /min Luda weight E&M 186 [lb_av] Luda height E&M 60 [in_i] Luda Body Mass Index (Ratio) 38.66 kg/m2 Vinh Pelaez blood pressure, diastolic 80 mm[Hg] Er evita Tavarez-Geovanni blood pressure, systolic 126 mm[Hg] Franki yasmine Tavarez-Geovanni oxygen saturation, oximetry 95 % Maryannevita Tavarez-Geovanni pulse rate 73 /min Maryann Tavarez- Geovanni weight E&M 198 [lb_av] Maryannevita Tavarez- Geovanni height E&M 60 [in_i] Maryann Tavarez- Geovanni Body Mass Index (Ratio) 39.25 kg/m2 Donte Alejandra MD blood pressure, diastolic 88 mm[Hg] David Tavarez-Geovanni blood pressure, systolic 126 mm[Hg] Franki Tavarez-Geovanni oxygen saturation, oximetry 97 % Maryann Rosario pulse rate 104 /min Maryann Tavarez- Geovanni weight E&M 201 [lb_av] Maryannevita Tavarez- Geovanni height E&M 60 [in_i] Maryann Galarza Body Mass Index (Ratio) 40.42 kg/m2 Donte Alejandra MD blood pressure, diastolic 86 mm[Hg] David Tavarez-Geovanni blood pressure, systolic 128 mm[Hg] Franki ca Corby-Geovanni oxygen saturation, oximetry 98 % Maryann Rosario pulse rate 69 /min Maryann Tavarez- Geovanni weight E&M 207 [lb_av] Maryann Tavarez- Geovanni height E&M 60 [in_i] Maryann Galarza Body Mass Index (Ratio) 41.79 kg/m2 Onur Foley MD blood pressure, diastolic, left arm 6 mm[ Hg] [facility], [facility], left arm 100 mm [Hg] blood pressure, diastolic, right arm 60 m m[Hg] blood pressure, systolic, right arm 100 m m[Hg] blood pressure, diastolic 60 mm[Hg] Ki blood pressure, systolic 100 mm[Hg] Sue khan [place] oxygen saturation, oximetry 97 % Morgan respiratory rate E&M 16 /min pulse rate 61 /min Morgan weight E&M 214 [lb_av] Morgan height E&M 60 [in_i] [facility] Body Mass Index (Ratio) 41.59 kg/m2 Onur Foley MD blood pressure, cuff size large Ke rri Grlitzynenfelder blood pressure, diastolic 80 mm[Hg] Ke rri Gruenenfelder blood pressure, systolic 150 mm[Hg] Rosa Maria Bla oxygen saturation, oximetry 98 % Qi Bal respiratory rate E&M 18 /min Qi rangel pulse rate 65 /min Qi Mark er weight E&M 213 [lb_av] Qi Grueneannabele er height E&M 60 [in_i] Qi Grueneannabele er Body Mass Index (Ratio) 41.40 kg/m2 Willy fernandez Raphael blood pressure, cuff size large Ke rri Gruenenfelder blood pressure, diastolic 80 mm[Hg] Ke rri Gruenenfelder blood pressure, systolic 120 mm[Hg] Rosa Maria ri Gruenenfelder oxygen saturation, oximetry 97 % Qi Gruenenfelder respiratory rate E&M 20 /min Qi G ruenenfelder pulse rate 63 /min Qi Gruenenfe er weight E&M 212 [lb_av] Qi Gruenenfe er height E&M 60 [in_i] Qi Gruenenfe [facility] Body Mass Index (Ratio) 40.62 kg/m2 Donte Alejandra MD blood pressure, cuff size large Ke rri Akshatneannabelsouth [facility] blood pressure, diastolic 70 mm[Hg] Ke rri Gruenenfelder blood pressure, systolic 130 mm[Hg] Rosa Maria Landaverdeuenenfelder oxygen saturation, oximetry 97 % Qi Odenneannabelelder respiratory rate E&M 20 /min Qi Harvey gayenenfelder pulse rate 70 /min Qi Odenneannabele [facility] weight E&M 208 [lb_av] Qi Toroe [facility] height E&M 60 [in_i] Qi Munae er Body Mass Index (Ratio) 41.05 kg/m2 Willy fernandez Raphael blood pressure, diastolic 75 mm[Hg] Evon Velasco blood pressure, systolic 127 mm[Hg] Mindy Velasco oxygen saturation, oximetry 97 % Amadeo Velasco respiratory rate E&M 18 /min Kaia Velasco pulse rate 70 /min Amadeo foster weight E&M 210.2 [lb_av] Amadeo benedict height E&M 60 [in_i] Amadeo monahanon Body Mass Index (Ratio) 40.03 kg/m2 Willy [facility] blood [facility], cuff size large Ke rri Gruenenfelder blood pressure, diastolic 80 mm[Hg] Ke rri Gruenenfelder blood pressure, systolic 130 mm[Hg] Ker ri Gruenenfelder oxygen saturation, oximetry 97 % Qi Gruenenfelder respiratory rate E&M 20 /min Qi G ruenenfelder pulse rate 67 /min Qi Gruenenfe lder weight E&M 205 [lb_av] Qi Gruenenfe lder height E&M 60 [in_i] Qi Gruenenfe lder Body Mass Index (Ratio) 40.03 kg/m2 Willy Lim blood pressure, cuff size large Ke rri [...] Gruenenfe lder weight E&M 206 [lb_av] Qi Toroe er height E&M 60 [in_i] Qi Flores er Body Mass Index (Ratio) 39.45 kg/m2 Yony n Kyte blood pressure, cuff size large Ke rri Akshatneannabelelder blood pressure, diastolic 80 mm[Hg] Ke rri Akshatnenfelder blood pressure, systolic 120 mm[Hg] Rosa Maria ri [facility]ast. [facility] hospital[facility] oxygen [facility], oximetry 98 % Qi [facility] respiratory rate E&M 20 /min Qi Gabriel frankykamsouth [facility] pulse rate 70 /min Qi Flores er weight E&M 202 [lb_av] Qi Flores er height E&M 60 [in_i] Qi Flores er Body Mass Index (Ratio) 39.84 kg/m2 Chivo Pham MD pulse rate 68 /min [facility] oxygen saturation, oximetry 97 % Jes[facility]s [facility] blood [facility], diastolic 70 mm[Hg] Isael Phillips blood pressure, systolic 112 mm[Hg] Sujata Phillips respiratory rate E&M 16 /min Jesús [facility] weight E&M 204 [lb_av] [facility] height E&M 60 [in_i] [facility] Body Mass Index (Ratio) 40.03 kg/m2 Cuauhtemoc Shipley blood pressure, diastolic 60 mm[Hg] Ki lleen Morgan blood pressure, systolic 112 mm[Hg] Kil bill Morgan oxygen saturation, oximetry 98 % Andrea Morgan respiratory rate E&M 16 /min Andrea Morgan pulse rate 73 /min Andrea weight E&M 205 [lb_av] Andrea Morgan height E&M 60 [in_i] Andrea Morgan Body Mass Index (Ratio) 39.84 kg/m2 Yony wendy Kyte blood pressure, diastolic 60 mm[Hg] Da justin Graham blood pressure, systolic 102 mm[Hg] Dac ia Graham oxygen saturation, oximetry 93 % Keri Graham respiratory rate E&M 16 /min Keri V oss pulse rate 71 /min Keri Graham weight E&M 204 [lb_av] Keri Graham height E&M 60 [in_i] Keri Graham Body Mass Index (Ratio) 39.84 kg/m2 Benigno Plurad blood pressure, diastolic 80 mm[Hg] Julien goins [place] blood pressure, systolic 116 mm[Hg] Demetria villegas Soy respiratory rate E&M 17 /min Luda Soy blood pressure, cuff size regular Julien goins [place] weight E&M 204 [lb_av] Luda [place] pulse rate 72 /min Luda [place] oxygen saturation, oximetry 98 % Luda [place] height E&M 60 [in_i] Luda Soy Body Mass Index (Ratio) 40.62 kg/m2 Donte Alejandra MD blood pressure, diastolic 64 mm[Hg] Evon abraham [place] blood pressure, systolic 118 mm[Hg] Mindy edwards [place] oxygen saturation, oximetry 97 % Shanelle [place] respiratory rate E&M 16 /min Shanelle [place] pulse rate 70 /min Shanelle [place] weight E&M 208 [lb_av] Shanelle [place] height E&M 60 [in_i] Shanelle [place] Body Mass Index (Ratio) 40.85 kg/m2 Onur Foley MD blood pressure, diastolic 65 mm[Hg] Evon Mcgrathwendy Velasco blood pressure, systolic 106 mm[Hg] Mindy Velasco oxygen saturation, oximetry 96 % Amadeo Velasco respiratory rate E&M 18 /min Kaia Velasco pulse rate 69 /min Amadeo foster weight E&M 209.2 [lb_av] Amadeo esquedaon height E&M 60 [in_i] Amadeo Cain jose alberto Body Mass Index (Ratio) 40.03 kg/m2 Onur Foley MD blood pressure, diastolic 60 mm[Hg] Evon abraham [place] blood pressure, systolic 92 mm[Hg] Mindy edwards [place] oxygen saturation, oximetry 95 % Shanelle [place] respiratory rate E&M 16 /min Shanelle [place] pulse rate 70 /min Shanelle [place] weight E&M 205 [lb_av] Shanelle [place] height E&M 60 [in_i] Shanelle [place] Body Mass Index (Ratio) 40.23 kg/m2 Donte [...] MD blood pressure, diastolic 70 mm[Hg] Francisco chaidez Morgan blood pressure, systolic 140 mm[Hg] Sue khan Morgan oxygen saturation, oximetry 93 % Andrea respiratory rate E&M 16 /min [facility] pulse rate 16 /min weight E&M 204 [lb_av] height E&M 60 [in_i] [facility] (Ratio) 40.03 kg/m2 Donte Alejandra MD blood pressure, cuff size regular Ke rri Mally blood pressure, diastolic 72 mm[Hg] Ke rri Mally blood pressure, systolic 118 mm[Hg] Rosa Maria Bal oxygen saturation, oximetry 98 % Qi Bal respiratory rate E&M 18 /min Qi rangel pulse rate 70 /min Qi Flores [facility] weight E&M 205 [lb_av] Qi Flores er height E&M 60 [in_i] Qi Flores [facility] Body Mass Index (Ratio) 38.08 kg/m2 Mee Martini NP blood pressure, diastolic 70 mm[Hg] Julien isty Soy blood pressure, systolic 110 mm[Hg] Julieni nelly [place] oxygen saturation, oximetry 98 % Luda [place] respiratory rate E&M 17 /min Luda Soy pulse rate 70 /min Luda Soy weight E&M 195 [lb_av] Luda Soy blood pressure, cuff size regular Kr isty [place] height E&M 60 [in_i] Luda Olivier Body Mass Index (Ratio) 38.47 kg/m2 Onur Foley MD blood pressure, diastolic 68 mm[Hg] Francisco chaidez Morgan blood pressure, systolic 112 mm[Hg] Sue Riberaam oxygen saturation, oximetry 98 % Andrea Morgan respiratory rate E&M 16 /min Andrea Morgan pulse rate 74 /min [place] weight E&M 197 [lb_av] Andrea Morgan height E&M 60 [in_i] [facility] [place] [place] Body Mass Index (Ratio) 37.49 kg/m2 Donte Alejandra MD respiratory rate E&M 19 /min Marie Burnett blood pressure, diastolic 70 mm[Hg] Matheus hoover Burnett blood pressure, systolic 112 mm[Hg] Omalley evita Burnett pulse rate 75 /min Marie Frankfort oxygen saturation, oximetry 98 % [facility] blood pressure, cuff size regular Matheus hoover Burnett weight E&M 192 [lb_av] Marie Burnett height E&M 60 [in_i] [facility] Body Mass Index (Ratio) 38.66 kg/m2 Donte Alejandra MD blood pressure, diastolic, standing 70 mm [Hg] Qi Bal blood pressure, systolic, standing 130 mm [Hg] Qi Bal oxygen saturation, oximetry 94 % Qi Bal respiratory rate E&M 18 /min Qi rangel pulse rate 74 /min Qi lombardi weight E&M 198 [lb_av] Qi delgado height E&M 60 [in_i] Qi lombardi Body Mass Index (Ratio) 37.53 kg/m2 Donte Alejandra MD blood pressure, diastolic 62 mm[Hg] Te kingsleybianca ZambranoBang blood pressure, systolic 116 mm[Hg] Ten merlin Bang blood pressure, cuff size regular Te kingsleybianca ZambranoBang oxygen saturation, oximetry 98 % Nidhi Bang respiratory rate E&M 18 /min Nidhi Bang pulse rate 70 /min Nidhi Bang weight E&M 192.2 [lb_av] Nidhi Feliciano y Body Mass Index (Ratio) 37.02 kg/m2 Donte Alejandra MD blood pressure, diastolic 78 mm[Hg] Evon Claudia Velasco blood pressure, systolic 125 mm[Hg] Mindy Velasco oxygen saturation, oximetry 96 % AmadeoMicaela Mancinienson respiratory rate E&M 18 /min RaziaChristina Mancinienson pulse rate 70 /min Amadeo Cain herojose alberto weight E&M 189.6 [lb_av] Amadeo Mancini marichuy height E&M 60 [in_i] Amadeo Cain kristin Body Mass Index (Ratio) 37.10 kg/m2 Onur Foley MD blood pressure, cuff size regular Ke rri Mally blood pressure, diastolic 72 mm[Hg] Rajinder rri Mally blood pressure, systolic 113 mm[Hg] Rosa Maria Bal oxygen saturation, oximetry 97 % Qi Bal respiratory rate E&M 16 /min Qi rangel pulse rate 74 /min Qi delgado weight E&M 190 [lb_av] Qi lombardier height E&M 60 [in_i] Qi delgado Body Mass Index (Ratio) 38.66 kg/m2 Benigno [place] weight E&M 198 [lb_av] Mk bennett MD height E&M 60 [in_i] Osmin Rojasrick lucia blood pressure, resting Yes Benigno [place] blood pressure, cuff size regular Gaston Benitez blood pressure, diastolic 72 mm[Hg] Gaston Benitez blood pressure, systolic 112 mm[Hg] Cira Benitez oxygen saturation, oximetry 95 % Erinn Benitez respiratory rate E&M 16 /min Erinn Benitez pulse rate 73 /min Erinn Benitez Body Mass Index (Ratio) 38.82 kg/m2 Onur Foley MD blood pressure, diastolic 89 mm[Hg] Evon Velasco blood pressure, systolic 138 mm[Hg] Mindy Velasco oxygen saturation, oximetry 98 % Amadeo Velasco respiratory rate E&M 18 /min Kaia Velasco pulse rate 94 /min Amadeo foster weight E&M 198.8 [lb_av] Amadeo benedict height E&M 60 [in_i] Amadeo foster Body Mass Index (Ratio) 38.43 kg/m2 Onur Foley MD blood pressure, diastolic 88 mm[Hg] Evon Velasco blood pressure, systolic 139 mm[Hg] Mindy Velasco oxygen saturation, oximetry 95 % Amadeo Velasco respiratory rate E&M 18 /min Kaia Velasco pulse rate 55 /min Amadeo foster weight E&M 196.8 [lb_av] Amadeo benedict height E&M 60 [in_i] Amadeo Cain nson ALLERGIES Allergy Name Onset Date Reaction Criticality [...] [facility] 3.5-5.2 sodium, serum 141 mmol/L [facility] [phone]/05 /15 urea nitrogen/creatinine ratio, serum 20 [facility] [...] mmol/L [facility] 3.5-5.2 sodium, serum 144 mmol/L [phone]/10 /24 urea nitrogen/creatinine ratio, serum 18 [facility] [...] Not Estab. platelet count 155 X10E3/UL [facility] [phone]/10 /24 red blood cell distribution width 12.7 [...] 3.5-5.2 High sodium, serum 144 mmol/L [facility] [phone]/01 /31 urea nitrogen/creatinine ratio, serum 17 [facility] [...] 1.005-1.030 coagulation managed by William Cordova RN William Cordova RN international normalized ratio (INR) 1.7 Keritesfaye Stevenson Normal prothrombin time (patient) 20.7 s Keritesfaye Stevenson activated partial thromboplastin time (aPTT) 26 s [facility] 24-33 calcium, serum 9.7 mg/dL [facility] 8.7-10.3 carbon dioxide, venous blood 24 mmol/L [facility] 20-29 chloride, serum 103 mmol/L [facility] 96-106 potassium, serum 4.5 mmol/L [facility] 3.5-5.2 sodium, serum 141 mmol/L [facility] 586-211 6350/11 /28 urea nitrogen/creatinine ratio, serum 18 [facility] [...] Not Estab. platelet count 203 X10E3/UL [facility] [phone]/11 /28 red blood cell distribution width 14.4 [...] [facility] 3.5-5.2 sodium, serum 140 mmol/L [facility] [phone]/10 /12 urea nitrogen/creatinine ratio, serum 17 [facility] [...] Not Estab. platelet count 219 X10E3/UL [facility] [phone]/06 /06 red blood cell distribution width 13.7 [...] 3.5-5.2 High sodium, serum 142 mmol/L [facility] [phone]/06 /06 urea nitrogen/creatinine ratio, serum 22 [facility] [...] cell distribution width, size density 52.0 fL [facility] - immature granulocytes, percentage of total cells, blood 0.2 % [facility] - nucleated red blood cells as percent of blood leukocytes 0.3 % [facility] - red blood cell (erythrocyte) count, per high power field 0.0 10*3/UL [facility] - eosinophils as percent of blood leukocytes 2.9 % [facility] - neutrophils as percent of blood leukocytes 54.0 % [facility] - Absolute Neutrophils 3.2 CELLS/UL [facility] 1.5 - 7.8 basophils as percent of blood leukocytes 0.8 % [facility] - Absolute Basophils 0.1 CELLS/UL [facility] 0.0 - 0.2 monocytes as percent of blood leukocytes 14.3 % [facility] - Absolute Monocytes 0.9 CELLS/UL [facility] 0.2 - 1.0 lymphocytes as percent of blood leukocytes 27.8 % [facility] - Absolute Lymphocytes 1.7 CELLS/UL [facility] 0.9 - 3.9 mean platelet volume 13.8 (?) [facility] - platelet count 169.0 THOUSAND/UL [facility] 100.0 - 400.0 mean corpuscular hemoglobin concentration, RBC 30.4 G/DL [facility] 31.0 - 38.0 Low mean corpuscular hemoglobin, RBC 29.2 pg [facility] 25.0 - 35.0 mean corpuscular volume, RBC 95.8 fL [facility] 75.0 - 100.0 hematocrit, blood 43.7 % [facility] 35.0 - 55.0 hemoglobin, blood 13.3 g/dL [facility] 11.5 - 16.5 erythrocyte count, whole blood 4.6 MILLION/UL [facility] 3.5 - 5.5 Nitrite Urine Negative [facility] [...] Graham Normal prothrombin time (patient) 25.1 s Keri Graham urea nitrogen/creatinine ratio, serum 17.5 [facility] - Estimated Glomerular Filtration Rate (calc) 76.3 (?) [facility] 59.0 - chloride, serum 100.1 mmol/L [facility] 98.0 - 107.0 potassium, serum 4.3 mmol/L [facility] 3.5 - 5.1 sodium, serum 143.0 mmol/L [facility] 136.0 - 145.0 creatinine, serum 0.8 mg/dL [facility] 0.5 - 1.0 carbon dioxide, venous blood 24.0 mmol/L [facility] 23.0 - 31.0 calcium, serum 9.8 mg/dL [facility] 8.6 - 10.2 urea nitrogen, blood 14.0 mg/dL [facility] 8.0 - 23.0 blood glucose, random 81.0 mg/dL [facility] 74.0 - 99.0 red blood cell distribution width, size density 51.3 fL [facility] - immature granulocytes, percentage of total cells, blood 0.1 % [facility] - mean corpuscular volume, RBC 94.0 fL LinkLog 75.0 - 100.0 hematocrit, blood 43.7 % [facility] 35.0 - 55.0 hemoglobin, blood 13.6 g/dL Link[facility] 11.5 - 16.5 erythrocyte count, whole blood 4.7 MILLION/UL [facility] 3.5 - 5.5 trichomonas vaginalis, urine None seen [facility] urine crystals, microscopic None seen [facility] casts, urine, microscopic None seen [facility] None seen [facility] Estab. nucleated red blood cells as percent of blood leukocytes 0.0 % [facility] - red blood cell (erythrocyte) count, per high power field 0.0 10*3/UL [facility] - eosinophils as percent of blood leukocytes 3.0 % [facility] - neutrophils as percent of blood leukocytes 57.7 % [facility] - Absolute Neutrophils 4.1 CELLS/UL LinkLog 1.5 - 7.8 basophils as percent of blood leukocytes 0.7 % [facility] - Absolute Basophils 0.1 CELLS/UL [facility] 0.0 - 0.2 monocytes as percent of blood leukocytes 14.3 % [facility] - Absolute Monocytes 1.0 CELLS/UL LinkLog 0.2 - 1.0 High lymphocytes as percent of blood leukocytes 24.2 % [facility] - Absolute Lymphocytes 1.7 CELLS/UL [facility] 0.9 - 3.9 mean platelet volume 13.6 (?) [facility] - platelet count 145.0 THOUSAND/UL LinkLog 100.0 - 400.0 mean corpuscular hemoglobin concentration, RBC 31.1 G/DL [facility] 31.0 - 38.0 mean corpuscular hemoglobin, RBC [...] Medication Status Instructions Dates Provider Indications Com calixto Jardiance 10 mg tablet completed - Qi Bal cephalexin 250 mg capsule completed Take 1 capsule by mouth three times a day - Jordyn Diana tramadol 50 mg tablet completed Take 1 tablet by mouth every eight hours for pain - Qi Bal Entresto 24-26 mg tablet active Take 1 [...] by mouth twice a day - Janelle Crawford VELTASSA 8.4 GM ORAL PACKET completed mix with 1/3 cup of water and drink daily; repeat lab work 1 wk after start - Razia Allan RN CLINDAMYCIN HCL 300 MG ORAL CAPSULE completed Take 1 Tab Three Times a Day for 10 Days - Amadeo Velasco calcitriol 0.25 mcg capsule completed 1 tablet once a day - Qi Bal CEPHALEXIN 500 MG ORAL TABLET completed Take one tablet 3 times daily for 10 days - Amadeo Velasco ULTRAM 50 MG ORAL TABLET completed Take one tablet every 6 hours as needed for pain - Chastity Donald Ozempic 0.25 mg or 0.5 mg(2 mg/1.5 mL) pen injector active once a week as directed Vanessa Bocanegra ergocalciferol (vitamin D2) 1,250 mcg (50,000 unit) capsule completed Take 1 capsule by mouth once a week as directed - Qi Bal #8, 56 days supply, Prescribed by BRODY [...] days, may substitute to preferred - Qi Bal ELIQUIS 5 MG ORAL TABLET completed one [...] 10 days - Jesús Phillips VITAMIN D3 84578 UNIT ORAL TABLET completed TAKE ONE TAB BY MOUTH WEEKLY - Qi Bal CALCITRIOL 0.25 MCG ORAL CAPSULE completed once a day - Andrea Eddie NEXTERONE SOLUTION completed as directed - Andrea Morgan sotalol 80 mg tablet completed Take 0.5 tablet once a day - Rachel Bautista NP magnesium oxide 400 mg (241.3 mg magnesium) tablet completed Take 1 tablet by mouth twice a day - Rachel Bautista NP Tricor 145 mg tablet completed 1 tablet once a day - Rachel Bautista NP ASPIRIN 81 81 MG TBEC completed Take 1 tablet once a day - Qi Bal AMIODARONE HCL 200 MG ORAL TABLET completed [...] Johnston smoking status Never smoker Barrett Johnston social history reviewed E&M revi ewed - no changes required Juno Foley MD social history E&M S moking History: Cateirna best has never smoked. Juno Foley MD smoking status Never smoker Juno Foley MD social history E&M S moking History: Caterina best has never smoked. Juno Foley MD social history reviewed E&M revi ewed - no changes required Juno Foley MD smoking status Never smoker Kairme Wood social history E&M S moking History: P estephania has never smoked. Juno Foley MD social history reviewed E&M revi ewed - no changes required Juno Foley MD smoking status Never smoker Tracee juarez social history E&M S moking History: Caterina best has never smoked. Juno Foley MD smoking status Never smoker Juno Foley MD social history reviewed E&M revi ewed - no changes required Juno Foley MD social history E&M S moking History: P estephania has never smoked. Rachel Bautista NP smoking status Never smoker Rachel Breen in [employer] social history reviewed E&M revi ewed - no changes required Rachel Bautista NP social history reviewed E&M revi ewed - no changes required Juno Foley MD smoking status Never smoker Amadeo [employer] smoking status Never smoker Vanessa Sahra social history reviewed E&M revi ewed - no changes required Tania Gomez NP smoking status Never smoker Natalia luo alcohol use, average drinks per day 4+ Juno Foley MD alcohol use yes Juno Foley MD social history E&M Smoking Histo ry: Caterina best has never smoked. Juno Foley [...] smoker Amadeo Velásquez number of grandchildren Juno Folye MD U nicole Foley MD alcohol use, average drinks per day 4+ Juno Foley MD alcohol use yes Juno Foley MD social history E&M S moking History: Caterina best has never smoked. Juno Foley MD social history reviewed E&M revi ewed - no changes required Juno Foley MD smoking status Never smoker Amadeo Darby [facility] social history reviewed E&M revi ewed - no changes required Puma Benigno smoking status Never smoker Amadeo Darby [facility] social history reviewed E&M revi ewed - no changes required Puma Benigno smoking status Never smoker Natalia Richie luo social history E&M S moking History: Caterina best has never smoked. Puma Benigno social history reviewed E&M revi ewed - no changes required Puma Benigno smoking status Never smoker Gabriella evans social history reviewed E&M revi ewed - no changes required Mk Alejandra MD smoking status Never smoker Luda Olivier social history reviewed E&M revi ewed - no changes required Puma Benigno smoking status Never smoker Maryann Casanova social history reviewed E&M revi ewed - no changes required Maryann Rosario smoking status Never smoker Maryann Casanova social history reviewed E&M revi ewed - no changes required Maryann Rosario number of grandchildren Mk Alejandra MD smoking status Never smoker Maryann Casanova social history reviewed E&M revi ewed - no changes required Maryann Rosario social history E&M S moking History: P estephania has never smoked. Juno Foley MD social history reviewed E&M revi ewed - no changes required Juon Foley MD alcohol counseling yes [place] alcohol use, average drinks per day 4+ [place] alcohol use yes [place] smoking status Never smoker Andrea Ingra m number of grandchildren Juno Foley MD U nicole Foley MD alcohol counseling yes Qi fierro [...] use, average drinks per day 4+ Qi Odennekareener alcohol use yes Qi Mark harjiter smoking status Never smoker iQ Obando donya social history reviewed E&M revi ewed - no changes required Josh Lim social history E&M S moking History: P atient has never smoked. Josh Lim alcohol counseling yes Amadeo Velasco alcohol use, average drinks per day 4+ Amadeo Velasco alcohol use yes Amadeo Cain nson smoking status Never smoker Amadeo Velásquez social history reviewed E&M revi ewed - no changes required Josh Lim social history E&M S moking History: P atient has never smoked. Josh Lim alcohol counseling yes Qi Branch vadim alcohol use, average drinks per day 4+ Qi Ozer alcohol use yes Qi Mark harjiter smoking status Never smoker Qi Hernandezwendy naqvi number of grandchildren Mk Lim social history reviewed E&M revi ewed - no changes required Josh Lim social history E&M S moking History: P atient has never smoked. Josh Lim alcohol counseling yes Qi Branch vadim alcohol use, average drinks per day 4+ Qi Akshatneannabelbernarder alcohol use yes Qi Munae sandy smoking status Never smoker Qi Hernandezwendy naqvi number of grandchildren Juno Foley MD social history E&M S moking History: P atient has never smoked. Juno Foley MD social history reviewed E&M revi ewed - no changes required Juno Foley MD alcohol counseling yes Qi Branch vadim alcohol use, average drinks per day 4+ Qi Toroavelina alcohol use yes Qi Flores harjiter smoking status Never smoker Qi Obando donya handedness R Handed Juan David Lane social history E&M S moking History: Caterina best has never smoked. Juan David Lane social history reviewed E&M revi ewed - no changes required Juan David Ariana alcohol counseling yes Qi Branch vadim alcohol use, average drinks per day 4+ Qi Clintondavid alcohol use yes Qi Flores harjiter smoking status Never smoker Qi Obando donya social history reviewed E&M revi ewed - no changes required Emmy Pham MD social history reviewed E&M revi ewed - no changes required Mk Alejandra MD alcohol counseling yes [place] alcohol use, average drinks per day 4+ [place] alcohol use yes [place] smoking status Never smoker Andrea Ingra m number of grandchildren Mk Lane [...] Graham number of grandchildren Juno Foley MD U nicole Foley MD social history reviewed E&M revi ewed - no changes required Juno Foley MD social history E&M S moking History: P estephania has never smoked. Juno Foley MD alcohol counseling yes Luda Pike sby alcohol use, average drinks per day 4+ Luda Soy alcohol use yes Luda [place] smoking status Never smoker Luda Soy number [...] yes Amadeo foster smoking status Never smoker Amadeowendy Velásquez number of grandchildren Juno Foley MD [...] Mk Alejandra MD alcohol counseling yes Andrea Razia nuno alcohol use, average drinks per day 4+ [place] alcohol use yes [place] [facility] smoking status Never smoker Andrea Riberaa m alcohol counseling yes Qi howellfelder alcohol use, average drinks per day 4+ Qi Odenmarileeer alcohol use yes Qi Hernandezkhushi lder smoking status Never smoker Qi naqvi number of grandchildren Mk Drake Hu [employer] alcohol counseling yes Luda Bu sby alcohol use, average drinks per day 4+ Luda [place] alcohol use yes Luda Soy smoking status Never smoker Luda Soy number of grandchildren Juno Foley MD U nicole Foley MD social history reviewed E&M revi ewed - no changes required Juno Foley MD social history reviewed E&M revi ewed - no changes required Mk Alejandra MD smoking status Never smoker [facility] social history E&M S moking History: Caterina best has never smoked. [facility] social history reviewed E&M revi ewed - no changes required [facility] Leda alcohol counseling yes Qi Branch vadim alcohol use, average drinks per day 4+ Qi Ozer alcohol use yes Qi Hernandezannabelnathan lder social history reviewed E&M revi ewed - no changes required Mk Alejandra MD alcohol counseling yes Vidal Hu [employer] alcohol use, average drinks per day 4+ Vidal Hu [employer]ATOR alcohol use yes Vidal Hu [employer] smoking status Never smoker Vidal Hu [employer]TER [employer]PERATOR number of grandchildren Mk Ellsworth social history reviewed E&M revi ewed - no changes required Nathan [place] alcohol counseling yes Amadeo Velasco alcohol use, average drinks per day 4+ Amadeo Velasco alcohol use yes Amadeo Cain kristin smoking status Never smoker Amadeo Darby ancelmo number of grandchildren Juno Foley MD U nicole Foley MD social history reviewed E&M revi ewed - no changes required Juno Foley MD alcohol counseling yes Qi Landaverdefroilan fierro alcohol use, average drinks per day 4+ Qi Mally alcohol use yes Qi Mark delgado smoking status Never smoker Qi Odennestor naqvi alcohol counseling yes Osmin [place] number of grandchildren Mk Solorio [facility] social history E&M Smoking Histo ry: P atlakiesha has never smoked. Osmin [facility] social history reviewed E&M revi ewed - no changes required Osmin Farnce alcohol use, average drinks per day 4+ Erinn Benitez alcohol use yes Erinn Benitez smoking status Never smoker Erinn Benitez social history reviewed E&M revi ewed - no changes required Juno Foley MD alcohol use, average drinks per day 4+ Amadeowendy Velasco alcohol use yes Amadeo Cain kristin smoking status Never smoker Amadeowendy Velásquez social history reviewed E&M revi ewed - no changes required Juno Foley MD number of grandchildren Juno Foley MD U nicole Foley MD alcohol use, average drinks per day 4+ Juno Foley MD alcohol use yes Juno Foley MD social history E&M Patient has n ever smoked. Smoking History: P atlakeisha has never smoked. Juno Foley MD smoking [...] Payer name Policy type / Coverage type [facility] ID [place] Medicare [id number] ADVANCE DIRECTIVES Name Date DISCUSSED - NO DECISION MADE TREATMENT PLAN Date Name Performer [id number],B, Juno Foley MD [id number],C,seen on last echo Juno Foley MD [id number],C,last echo EF 60% Juno Foley MD [id number],C,p er PCP, she will start jardiance for renal protection l ast A1c 5.5% Juno Foley MD [id number],S, Juno Foley MD [id number],C, H er updated medication list for this problem includes: Crestor 20 Mg Tablet (Rosuvastatin) ..... Take 1 tablet once a day Juno Foley MD [id number],C, B P today: 120/79 P rior BP: 114/78 (08/16/2022) Labs Reviewed: C reat: 0.91 (03/10/2021) C hol: 211 (11/26/2018) HDL: 60 (11/26/2018) Her updated medication list for this problem includes: Sotalol 80 Mg Tablet (Sotalol) ..... Take 0.5 tablet by mouth twice a day Juno Foley MD [id number],B, Juno Foley MD [id number],B,I will repeat her echo in a month or so. She is on Entresto and Crestor. She also has a defibrillator Juno Foley MD [id number],S, Juno Foley MD [id number],B, Juno Foley MD [id number],S, Juno Foley MD [id number],S, Juno Foley MD [id number],S, A ppears stable. No chest pain. Continues on crestor. Her updated medication list for this problem includes: Sotalol 80 Mg Tablet (Sotalol) ..... Take 0.5 tablet once a day Juno Foley MD [id number],S, s he hasn't been using cpap at night Juno Foley MD [id number],S, I 'm going to cut her crestor to 20mg - I don't think she needs such a high dose since she has only mild CAD. Her updated medication list for this problem includes: Crestor 20 Mg Tablet (Rosuvastatin) ..... Take 1 tablet once a day Juno Foley MD [id number],S, N o recurrence K 4.4. 06/19/21 Juno Foley MD [id number],S, B P today: 101/59 P rior BP: 135/78 (11/19/2021) Her updated medication list for this problem includes: Sotalol 80 Mg Tablet (Sotalol) ..... Take 0.5 tablet once a day Juno Foley MD [id number],S, C lincally well compensated and is without shortness of breath. Continues on Entresto 49-51mg dose. Last EF was 60-65%. Juno Foley MD [id number],S, s /p BIV ICD, no recent events or shocks Juno Foley MD [id number],S, A 1C 5.5 Her updated medication list for this problem includes: Ozempic 0.25 Mg Or 0.5 Mg(2 Mg/1.5 Ml) Pen Injector (Semaglutide) ..... Once a week as directed Entresto 24-26 Mg Tablet (Sacubitril-valsartan) ..... 1 tablet by mouth twice a day Glipizide 5 Mg Tablet Extended Release 24hr (Glipizide) ..... Take 1 tablet by mouth once a day Rachel Bautista NP [id number],S, E F 60~65% on last echo. Rachel Bautista NP [id number],S, C lincally well compensated and is without shortness of breath. Continues on Entresto 49-51mg dose today. aRchel Bautista NP [id number],S, T he patient is using CPAP on a regular basis. The patient has been benefiting from therapy and should continue use. Rachel Bautista NP [id number],S, E pisode in September 2017 leading to shock by defibrillator. No recurrence. Rachel Bautista HALEY [id number],W, P rescribed Buspar by PCP. Recommend neurology evaluation. Rachel Bautista HALEY [id number],S, H er updated medication list for this problem includes: Tricor 145 Mg Tablet (Fenofibrate nanocrystallized) ..... 1 tablet once a day Crestor 40 Mg Tablet (Rosuvastatin) ..... 1 tablet once a day Rachel Bautista HALEY [id number],S, B P today: 135/78 P rior BP: 110/79 (10/05/2021) Her updated medication list for this problem includes: Sotalol 80 Mg Tablet (Sotalol) ..... Take 0.5 tablet once a day Rachel Jerel DE LEON [id number],C, T he patient is using CPAP on a regular basis. The patient has been benefiting from therapy and should continue use. Juno Foley MD [id number],C, N o recurrence K 4.4. 06/19/21 Juno Foley MD [id number],C, H er updated medication list for this problem includes: Tricor 145 Mg Tablet (Fenofibrate nanocrystallized) ..... 1 tablet once a day Crestor 40 Mg Tablet (Rosuvastatin) ..... 1 tablet once a day Juno Foley MD [id number],C, s /p BIV ICD, no recent events or shocks Juno Foley MD [id number],C, B P today: 110/79 P rior BP: 130/80 (06/22/2021) Labs Reviewed: C reat: 0.91 (03/10/2021) C hol: 211 (11/26/2018) HDL: 60 (11/26/2018) Her updated medication list for this problem includes: Sotalol 80 Mg Tablet (Sotalol) ..... Take 0.5 tablet once a day Juno Foley MD [id number],B, C lincally well compensated and is without shortness of breath. Continues on Entresto 49-51mg dose today. Juno Foley MD [id number],B, E F 60~65% on last echo. Juno Foley MD [id number],S, Rachel brian CARD TAPE CONVERTER OPERATOR [id number],B, Rachel brian CARD TAPE CONVERTER OPERATOR [id number],N,P rescribed Buspar by PCP. Feels better. Rachel Bautista NP [id number],B,resolved Abhinav Bautista NP [id number],S, Juno Foley MD [id number],B,on last echo. Juno Foley MD [id number],C,will repeat b mp. Juno Foley MD [id number],C,T his may be a vasovagal attack, but will need to do bloodwork to see if her K is getting high or not. She stopped taking her lokelma. Essentially i am concerned that when her bp comes down it may go too low when i increase her bp meds. Juno Foley MD Cardiology:The patie nt is using CPAP on a regular basis. The patient has been benefiting from therapy and should continue use. Juno Foley MD Cardiology Juno Foley MD Cardiology:Reasonabl e to have her see psychiatry Juno Foley MD Cardiology Juno Foley MD Cardiology:appears w ell compensated Juno Foley MD Cardiology:Nuclear s tress negative for ischemia C ontinue medical therapy. u pdate echo in 6 mo Juno Foley MD Cardiology Juno Foley MD Cardiology Juno Foley MD Cardiology:This visi t has been a part of the consistent, comprehensive, and ongoing management of the chronic medical condition(s) listed above for the patient. BP today: 129/79 P rior BP: 132/82 (07/09/2024) Labs Reviewed: C reat: 0.91 (03/10/2021) C hol: 211 (11/26/2018) HDL: 60 (11/26/2018) LDL: 116 (11/26/2018) T (11/26/2018) Barrett teresa Cardiology:Echo EF 6 0% mild MR, 03/2024 This visit has been a part of the consistent, comprehensive, and ongoing management of the chronic medical condition(s) listed above for the patient. [facility]:No signs of decompensation This visit has been a part of the consistent, comprehensive, and ongoing management of the chronic medical condition(s) listed above for the patient. [facility]:This visi t has been a part of the consistent, comprehensive, and ongoing management of the chronic medical condition(s) listed above for the patient. Her updated medication list for this problem includes: Jardiance 10 Mg Tablet (Empagliflozin) Ozempic 0.25 Mg Or 0.5 Mg(2 Mg/1.5 Ml) Pen Injector (Semaglutide) ..... Once a week as directed [facility]:Cath 2017 I MPRESSION: 1 . Mild pulmonary hypertension. 2 . Severe LV dysfunction. 3 . Moderate nonobstructive CAD. 4 . No significant renal artery stenosis. This visit has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
--- OUTSIDE RECORDS SUMMARY | 2025-01-31 13:02 | XMS_ITS | Clinical Summary ---
Author Organization [facility] Address [address] [place] [address] Care Team Providers Care Supervisor Speech Name Role Phone Duglas Collado MD Primary Care Provider Source Comments [facility],non-[facility] Affiliates and Associated Physician Practices is amultiple site organization consisting of ambulatory clinics and hospital sitesin [place], [place], [place] and [place]. This disclosure is being madepursuant to the Care Everywhere program and may not contain all information available regarding this patient. Last updated 18.[facility] Allergies Active Allergy Reactions Criticality Noted Date [...] Active vitamin D, ergocalciferol, (DRISDOL) 1.25 MG (44936 UT) capsule Take 50,000 Units by mouth [...] Comments Blood Pressure 110/68 10/28/2019 2:58 PM [employer]VE[employer] Pulse 77 10/28/2019 2:58 PM [employer] Temperature 36.7 C (98.1 F) 10/28/2019 2:58 PM [employer] Respiratory Rate 18 10/28/2019 2:58 PM [employer] Oxygen Saturation 96% 10/28/2019 2:58 PM [employer] Inhaled Oxygen Concentration - - Weight 87.2 kg (192 lb 4.8 oz) 10/28/2019 2:58 P M [employer] Height 165.1 cm (5' 5 ) 10/28/2019 2:58 PM [employer] Body Mass Index 32 10/28/2019 2:58 PM [employer] Plan of Treatment Health Maintenance Due Date [...] COVID-19 VACCINE ( - 2023- season) 2024 DEPRESSION SCREENING 10/27/2024 DIABETES - URINE PROTEIN SCREENING 10/27/2024 INFLUENZA VACCINE (Season Ended) 2025 08/27/2019, 08/09/2019, 08/05/2018, Additional history exists Respiratory Syncytial Virus (RSV) Vaccine Pt: or [...] Recently Relevant to Health Maintenance Care Teams Supervisor Speech Relationship Specialty Start Date End Date Duglas Collado MD [address] [facility] [address] [place] [id number] PCP - General Internal Medicine 07/16/19
== END 2025-01-31 11:12 | disposition home or self-care (01) ==
PROVIDERS: PCP Internal Medicine; Visit Provider Internal Medicine
DX: R10.30 Lower abdominal pain, unspecified (principal); Z79.899 Other long term (current) drug therapy; Z68.28 Body mass index [BMI] 28.0-28.9, adult
CPT/HCPCS: 36415; 74177; 80048; 85025; Q9967

== ENCOUNTER 2025-02-03 09:57 | Outpatient (CLI) | payer MEDICARE, SELFPAY ==
--- NOTE | ~2025-02-03 | XR_ITS ---
EXAMINATION: XR abdomen obstructive series DATE: 02/03/2025 10:28 INDICATION: Constipation TECHNIQUE: Supine and upright views of the abdomen. FINDINGS: Comparison to multiple prior studies sequentially, with oldest reviewed study dated 022. The visualized lung parenchyma is normal.. There is a nonobstructive bowel gas pattern. Gas and stool are seen throughout the colon to the level of the rectum. There is no free air. There is a gastric banding device present with superficially located control her overlying the right midabdomen. Pacemak er leads are visualized. There are surgical changes in the pelvis consistent with partial colectomy. IMPRESSION: 1. No acute abdominal abnormality. Reviewed, dictated and finalized at location A.
--- OUTSIDE RECORDS SUMMARY | 2025-02-03 10:39 | XMS_ITS | Clinical Summary ---
Author Organization [facility] al Address [address] [place] [address] Care Team Providers Care Web Machine Tender Name Role Phone Dante Collado MD Primary Care Provide r Mk Alejandra MD Unavailable [phone] Allergies Active Allergy Reactions Criticality Noted Date [...] (01/17/2021): Added automatically from request for surgery [id number] Troponin level elevated 03/29/2020 Defibrillator discharge 03/28/2020 [...] on file Legal Sex Female 7:03 PM 21 DEALER Gender Identity Not on file Sexual Orientation Not on file Obstetrics History Last Filed Vital Signs Vital Sign Reading Time Taken Comments Blood Pressure 120/81 09/05/2022 8:37 AM 21 DEALER Pulse 66 09/05/2022 8:37 AM 21 DEALER Temperature 36.4 C (97.5 F) 11/18/2021 2:14 PM 21 DEALER Respiratory Rate 25 11/18/2021 6:20 PM 21 DEALER Oxygen Saturation 100% 11/18/2021 6:20 PM 21 DEALER Inhaled Oxygen Concentration - - Weight 66 kg (145 lb 6.4 oz) 09/05/2022 8:37 AM 21 DEALER Height 154.9 cm (5' 1 ) 09/05/2022 8:37 AM 21 DEALER Body Mass Index 27.47 09/05/2022 8:37 AM 21 DEALER Plan of Treatment Health Maintenance Due Date [...] 09/17/2022, 08/28 Medical Devices Implanted Type Area Mechanical Service Specialist Device Identifier Shelf Expiration Date Model / Serial / Lot [employer] [id number] Solia S 45cm Bipolar Active Fixation Lead Pacing Steroid Eluting - [id number] - [id number] Implanted:Qty: 1 on 09/22/2019 by Mk Alejandra MD at [facility] Lead [employer] [id number] 06/26/2021 [id number] / [id number] / Lead Icd Sentus Promri Left Ventricular Otw Quadripolar L-85/49 - [id number] - [id number] Implanted:Qty: 1 on 04/09/2018 by Mk Alejandra MD at [facility] [employer] 12/25/2019 [id number] / [id number] / [employer] [id number] Angio-Seal Vip Bondek-Plus 8fr .038in 70cm Hemostatic Latex Free - [id number] Implanted:Qty: 1 on 10/13/2018 by Mk Alejandra MD at [facility] [employer] 05/26/2019 [id number] / / [id number] Procedures Procedure Name Priority Date/Time Associated Diagnosis Comments EGFR STAT 11/18/2021 3:26 PM 21 DEALER LIPID PANEL Timed 03/28/2020 1:05 PM CDT COLONOSCOPY REPORT 07/01/2013 from Last 3 Months or Most Recently Relevant to Health Maintenance Results * eGFR (11/18/2021 3:26 PM 21 DEALER) eGFR 73 mL/min/1. 73 m2 MAT FERREIRA [...] last reviewed 2021. Blood 11/18/2021 3:26 PM 21 DEALER 11/18/2021 3:33 PM 21 DEALER us Felisha Porter MD LAB BLOOD ORDERABLES Final Resu lt MAT FERREIRA [id number] [place] [address] * Lipid panel (03/28/2020 1:05 PM CDT) [...] LAB BLOOD ORDERABLES F inal Result MAT [id number] Department of Laboratories [place] [id number] * COLONOSCOPY REPORT (07/01/2013) Anatomical Region Laterality Modality Other Narrative 07/01/2013 Ordered by an unspecified provider. Historical Provider GI PROCEDURE ORDERABLES F inal Result from Last 3 Months or Most Recently Relevant to Health Maintenance Insurance MEDICARE AET[employer] SENIOR SUPPLEMENT MEDICARE [facility] MEDICARE AETNA Advance Directives For more information, please contact: [phone] * Full Code (Latest Code Status on [...] 11:02 PM 10/01/2017 2:07 PM Care Teams Web Machine Tender Relationship Specialty Start Date End Date Dante Collado MD [address] [address] PCP - General 09/10/17 [place] [id number] [address] Consulting Physician Cardiology 10/01/17
--- OUTSIDE RECORDS SUMMARY | 2025-02-03 10:39 | XMS_ITS | Clinical Summary ---
Author Organization [facility] Address [address] [place] [address] Phone Care Team Providers Care Buncher Hand Name Role Phone Duglas Collado MD Primary [...] Comments Blood Pressure 104/71 2024 2:17 PM DETECTIVE INVESTIGATOR Pulse 91 2024 2:17 PM DETECTIVE INVESTIGATOR Temperature 36.9 C (98.4 F) 2024 2:17 PM DETECTIVE INVESTIGATOR Respiratory Rate 15 2024 2:17 PM DETECTIVE INVESTIGATOR Oxygen Saturation 95% 2024 2:17 PM DETECTIVE INVESTIGATOR Inhaled Oxygen Concentration - - Weight 69.3 kg (152 lb 12.8 oz) 2024 2:17 PM DETECTIVE INVESTIGATOR Height 152.4 cm (5') 04/25/2022 11:38 AM CDT Body Mass Index 29.84 04/25/2022 11:38 AM CDT Plan of Treatment Upcoming Encounters Date Type Department Care Team (Late st Contact Info) Description 04/12/2025 11:00 AM CDT Office Visit [facility] Oncology and Hematology - [place] [facility] [address] [place] [address] Brandon Willis MD [address] [facility] [address] [place] [address] Health Maintenance Due Date Last [...] 11/28/2023, 2020 Medical Devices Implanted Type Area Fiberglass Quality Technician Device Identifier Shelf Expiration Date Model / Serial / Lot Lap Band,Bilat Knee Replacement Implanted:(Quantit y not on file) Explanted:(Quantit y not on file) Insurance MEDICARE PART A AND B [facility] MEDICARE SUPP AESSI MEDICARE PART A AND B A[employer] MEDICARE SUPP AESSI Advance Directives For more information, please contact: [phone] * Full Code (Latest Code Status on File) Date Activated Date Inactivated Comments 07/05/2014 8:17 AM 07/05/2014 11:32 AM * Full Code Date Activated Date Inactivated Comments 07/05/2014 6:54 AM 07/05/2014 8:17 AM Care Teams Buncher Hand Relationship Specialty Start Date End Date Duglas Collado MD PCP - General Internal Medicine 03/27/22
--- OUTSIDE RECORDS SUMMARY | 2025-02-03 10:39 | XMS_ITS | Referral Summary ---
Author Organization [facility] al Address [address] [place] [address] Care Team Providers Care Homogenizer Operator Name Role Phone Dante Collado MD Primary Care Provide r Mk Alejandra MD Unavailable [phone] Allergies Active Allergy Reactions Criticality Noted Date [...] (01/17/2021): Added automatically from request for surgery [id number] Troponin level elevated 03/29/2020 Defibrillator discharge 03/28/2020 [...] on file Legal Sex Female 7:03 PM S3B MULTI SENSOR OPERATOR Gender Identity Not on file Sexual Orientation Not on file Last Filed Vital Signs Vital Sign Reading Time Taken Comments Blood Pressure 120/81 09/05/2022 8:37 AM S3B MULTI SENSOR OPERATOR Pulse 66 09/05/2022 8:37 AM S3B MULTI SENSOR OPERATOR Temperature 36.4 C (97.5 F) 11/18/2021 2:14 PM S3B MULTI SENSOR OPERATOR Respiratory Rate 25 11/18/2021 6:20 PM S3B MULTI SENSOR OPERATOR Oxygen Saturation 100% 11/18/2021 6:20 PM S3B MULTI SENSOR OPERATOR Inhaled Oxygen Concentration - - Weight 66 kg (145 lb 6.4 oz) 09/05/2022 8:37 AM S3B MULTI SENSOR OPERATOR Height 154.9 cm (5' 1 ) 09/05/2022 8:37 AM S3B MULTI SENSOR OPERATOR Body Mass Index 27.47 09/05/2022 8:37 AM S3B MULTI SENSOR OPERATOR Plan of Treatment Not on file Medical Devices Implanted Type Area Marina Porter Device Identifier Shelf Expiration Date Model / Serial / Lot [employer] [id number] Solia S 45cm Bipolar Active Fixation Lead Pacing Steroid Eluting - [id number] - [id number] Implanted:Qty: 1 on 09/22/2019 by Mk Alejandra MD at [facility] Lead [employer] [id number] 06/26/2021 [id number] / [id number] / Lead Icd Sentus Promri Left Ventricular Otw Quadripolar L-85/49 - [id number] - [id number] Implanted:Qty: 1 on 04/09/2018 by Mk Alejandra MD at [facility] [employer] 12/25/2019 [id number] / [id number] / [employer] [id number] Angio-Seal Vip Bondek-Plus 8fr .038in 70cm Hemostatic Latex Free - [id number] Implanted:Qty: 1 on 10/13/2018 by Mk Alejandra MD at [facility] [employer] 05/26/2019 [id number] / / [id number] Procedures Procedure Name Priority Date/Time Associated Diagnosis Comments EGFR STAT 11/18/2021 3:26 PM S3B MULTI SENSOR OPERATOR LIPID PANEL Timed 03/28/2020 1:05 PM CDT COLONOSCOPY REPORT 07/01/2013 from Last 3 Months or Most Recently Relevant to Health Maintenance Results * eGFR (11/18/2021 3:26 PM S3B MULTI SENSOR OPERATOR) eGFR 73 mL/min/1. 73 m2 MAT [...] last reviewed 2021. Blood 11/18/2021 3:26 PM S3B MULTI SENSOR OPERATOR 11/18/2021 3:33 PM S3B MULTI SENSOR OPERATOR us Felisha Porter MD LAB BLOOD ORDERABLES Final Resu lt MAT FERREIRA [id number] [place] [address] * Lipid panel (03/28/2020 1:05 [...] LAB BLOOD [place] [id number] [address] Department of Laboratories [place] [id number] * COLONOSCOPY REPORT (07/01/2013) Anatomical Region Laterality Modality Other Narrative 07/01/2013 Ordered by an unspecified provider. [facility] Provider GI PROCEDURE ORDERABLES F inal Result from Last 3 Months or Most Recently Relevant to Health Maintenance Insurance MEDICARE AETNA SENIOR SUPPLEMENT MEDICARE AETNA SENIOR SUPPLEMENT MEDICARE AETNA Advance Directives For more information, please contact: [phone] * Full Code (Latest Code Status on [...] 11:02 PM 10/01/2017 2:07 PM Care Teams Homogenizer Operator Relationship Specialty Start Date End Date Dante Collado MD [address] [facility] [address] [place] [address] PCP - General 09/10/17 [place] [address] [address] [address] [id number] [place] [address] Consulting Physician Cardiology 10/01/17
--- OUTSIDE RECORDS SUMMARY | 2025-02-03 10:40 | XMS_ITS | CONTINUITY OF CARE DOCUMENT ---
Author Name negin princessmikie Address Unknown Organization [facility] Address [address] [place] [address] Phone [phone] Care Team Providers Care Plate Grinder Name Role Phone Juno Foley MD Unavailable [phone] GEORGE WALLACE MD Unavailable GEORGE WALLACE MD Unavailable [phone] PROBLEMS Condition Status Date Provider Notes Hyperkalemia [...] Mk Alejandra MD Fatigue active Vidal Hu COOK MESS Nausea/Vomiting active Vidal Hu COOK MESS Dizziness active Juno Foley MD Ventricular tachycardia, [...] In-person encounter Office Visit Juno Foley MD [facility] 4 - 4 In-person encounter Office Visit Juno Foley MD [facility] Chest pain-type to be determined 8 - 3 In-person encounter Office Visit Mk Alejandra MD [facility] Shortness of breathDiabetes Mellitus, Type II, controlled w/vascular complications 3 - 3 In-person encounter Office Visit Juno Foley MD [facility] 8 - 8 In-person encounter Office Visit Juno Foley MD [facility] 9 - 2 In-person encounter Office Visit Mk Alejandra MD [facility] 5 - 5 In-person encounter Office Visit Mk Alejandra MD [facility] 1 - 1 In-person encounter Office Visit Mk Alejandra MD [facility] 6 - 6 In-person encounter Office Visit Mk Alejandra MD [facility] 0 - 0 In-person encounter Office Visit Juno Foley MD [facility] 5 - 5 In-person encounter Office Visit Juno Foley MD [facility] 1 - 1 In-person encounter Office Visit Juno Foley MD [facility] 4 - 4 In-person encounter Office Visit Juno Foley MD [facility] Panic attack?CAD, nonobstructive disease on cath 2017 4 - 6 In-person encounter Office Visit Juno Foley MD [facility] 0 - 0 In-person encounter Office Visit Juno Foley MD [facility] 7 - 7 In-person encounter Office Visit Juno Foley MD [facility] Panic attack? 0 - 2 In-person encounter Office Visit Juno Foley MD [facility] 4 - 4 In-person encounter Office Visit Juno Foley MD [facility] 4 - 7 In-person encounter Office Visit Juno Foley MD [facility] 2 - 2 In-person encounter Office Visit Juno Foley MD [facility] 6 - 6 In-person encounter Office Visit Juno Foley MD [facility] 4 - 4 In-person encounter Office Visit Juno Foley MD [facility] 6 - 6 In-person encounter Office Visit Mk Alejandra MD [facility] Office S/P Medtronic (MRI Safe) REVEAL/LinQ 3 - 3 In-person encounter Office Visit Mk Alejandra MD [facility] 6 - 6 In-person encounter Office Visit Mk Alejandra MD [facility] 5 - 6 In-person encounter Office Visit Mk Alejandra MD [facility] 3 - 3 In-person encounter Office Visit Mk Alejandra MD [facility] 4 - 5 In-person encounter Office Visit Mk Alejandra MD [facility] 8 - 3 In-person encounter Office Visit Mk Alejandra MD [facility] 1 - 1 In-person encounter Office Visit Mk Alejandra MD [facility] 0 - 0 In-person encounter Office Visit Juno Foley MD [facility] SyncopeDiabetes mellitus type II 8 - 4 In-person encounter Office Visit Juno Foley MD [facility] 0 - 0 In-person encounter Office Visit Mk Alejandra MD [facility] Leg edema, bilateral 6 - 2 In-person encounter Office Visit Mk Alejandra MD [facility] Urinary tract infection 4 - 4 In-person encounter Office Visit Mk Alejandra MD [facility] 9 - 9 In-person encounter Office Visit Mk Alejandra MD [facility] 7 - 7 In-person encounter Office Visit Mk Alejandra MD [facility] 0 - 0 In-person encounter Office Visit Juno Foley MD [facility] 0 - 0 In-person encounter Office Visit Mk Alejandra MD [facility] S/P BiV ICD Biotronik//Genchange BiV ICD Biotronik 12/22/23 ( MRI Safe) 6 - 6 In-person encounter Office Visit Emmy Pham MD [facility] 0 - 5 In-person encounter Office Visit Mk Alejandra MD [facility] Examination, preoperative cardiovascular 1 - 4 In-person encounter Office Visit Mk Alejandra MD [facility] 1 - 1 In-person encounter Office Visit Juno Foley MD [facility] 4 - 4 In-person encounter Office Visit Mk Alejandra MD [facility] Ventricular tachycardia, sustained 1 - 1 In-person encounter Office Visit Juno Foley MD [facility] 0 - 1 In-person encounter Office Visit Juno Foley MD [facility] Dizziness 6 - 6 In-person encounter Office Visit Mk Alejandra MD [facility] 9 - 9 In-person encounter Office Visit Mk Alejandra MD [facility] 2 - 7 In-person encounter Office Visit Mk Alejandra MD [facility] 4 - 6 In-person encounter Office Visit Edin Suresh DO [facility] 8 - 8 In-person encounter Office Visit Juno Foley MD [facility] 2 - 2 In-person encounter Office Visit Mk Alejandra MD [facility] 1 - 6 In-person encounter Office Visit Mk Alejandra MD [facility] 5 - 5 In-person encounter Office Visit Mk Alejandra MD [facility] FatigueNausea/Vomiting 2 - 2 In-person encounter Office Visit Mk Alejandra MD [facility] 7 - 7 In-person encounter Office Visit Juno Foley MD [facility] 4 - 7 In-person encounter Office Visit Mk Alejandra MD [facility] Other symptoms involving cardiovascular systemObesityLBBBMitral regurgitationCHFVentricular tachycardia, nonsustained 3 - 3 In-person encounter Office Visit Juno Foley MD [facility] CardiomyopathyPVC's 0 - 0 In-person encounter Office Visit Juno Foley MD [facility] HyperlipidemiaHTN essentialDiverticulitis, colonHypothyroidismPreoperative cardiovascular examinationSleep apnea--on [...] lder weight E&M 145 [lb_av] Qi Flores [facility] height E&M 60 [in_i] Qi Flores [facility] Body Mass Index (Ratio) 28.90 kg/m2 Onur Foley MD blood pressure, diastolic 89 mm[Hg] Yasmin shirley [facility] blood pressure, systolic 127 mm[Hg] [facility], oximetry 95 % [facility] pulse rate 103 /min [facility] respiratory rate E&M 12 /min [facility] weight E&M 148 [lb_av] [facility] height E&M 60 [in_i] [facility] blood pressure, cuff size regular An [facility]Johnson [facility] blood pressure, diastolic -1 mm[Hg] Cailin nkLog blood pressure, systolic 129 mm[Hg] Snehal kLog Body Mass Index (Ratio) 29.49 kg/m2 Barrett Bradleyzai blood pressure, diastolic 79 mm[Hg] Jessica yla [facility] blood pressure, systolic 129 mm[Hg] Radha la [facility] blood pressure, cuff size regular Jessica yla [facility] pulse rate 82 /min [facility], oximetry 96 % [facility] weight E&M 151 [lb_av] Tania [facility] height E&M 60 [in_i] Tania [facility] Body Mass Index (Ratio) 29.88 kg/m2 Onur Foley MD blood pressure, cuff size regular Matheus Diana blood pressure, diastolic 82 mm[Hg] Ta elvis Diana blood pressure, systolic 132 mm[Hg] Tab ithabby Diana oxygen saturation, oximetry 97 % Jordynabby Diana pulse rate 75 /min Jordyn [place] weight E&M 153 [lb_av] Jordyn [place] respiratory rate E&M 12 /min Jordyn [place] height E&M 60 [in_i] Jordyn [place] Body Mass Index (Ratio) 29.53 kg/m2 Onur Foley MD pulse rate 74 /min [facility] blood pressure, cuff size large Matheus leal [place] blood pressure, diastolic 78 mm[Hg] [facility], systolic 124 mm[Hg] [facility] oxygen saturation, oximetry 96 % [facility] respiratory rate E&M 12 /min [facility] weight E&M 151.2 [lb_av] [facility] height E&M 60 [in_i] Jordyn [place] Body Mass Index (Ratio) 29.49 kg/m2 [facility] blood pressure, cuff size regular Ja [facility] blood pressure, diastolic 76 mm[Hg] [facility] blood pressure, systolic 128 mm[Hg] [facility] pulse rate 62 /min [facility] oxygen saturation, oximetry 99 % [facility] respiratory rate E&M 14 /min [facility] weight E&M 151 [lb_av] [facility] height E&M 60 [in_i] [facility] y Body Mass Index (Ratio) 29.88 kg/m2 Barrett rae blood pressure, cuff size regular Ke [facility]ri [facility] blood pressure, diastolic 80 mm[Hg] Ke rri [...] Amadeo Velasco respiratory rate E&M 18 /min Kiaa Velasco pulse rate 72 /min Amadeo Cain [...] blood pressure, cuff size regular Kr isty [place] blood pressure, diastolic 90 mm[Hg] Kr isty Soy blood pressure, systolic 120 mm[Hg] Kri sty Soy pulse rate 78 /min Luda Soy oxygen [...] pressure, diastolic, left arm 6 mm[ Hg] [facility], systolic, left arm 100 mm [Hg] blood pressure, diastolic, right arm 60 m m[Hg] blood pressure, systolic, right arm 100 m m[Hg] blood pressure, diastolic 60 mm[Hg] Ki blood pressure, systolic 100 mm[Hg] Sue khan [place] oxygen saturation, oximetry 97 % Morgan respiratory rate E&M 16 /min pulse rate 61 /min Andrea Morgan weight E&M 214 [lb_av] Morgan height E&M 60 [in_i] [facility] Body Mass Index (Ratio) 41.59 kg/m2 Onur Foley MD blood pressure, cuff size large Ke rri Grlitzynenfelder blood pressure, diastolic 80 mm[Hg] Ke rri Gruenenfelder blood pressure, systolic 150 mm[Hg] Rosa Maria Bal oxygen saturation, oximetry [...] er height E&M 60 [in_i] Qi Gruenenfe [facility] Body Mass Index (Ratio) 40.62 kg/m2 Donte Alejandra MD blood pressure, cuff size large Ke rri Akshatneannabelhouston [facility] blood pressure, diastolic 70 mm[Hg] Ke rri Gruenenfelder blood pressure, systolic 130 mm[Hg] Rosa Maria Landaverdeuenenfelder oxygen saturation, oximetry 97 % Qi Odenneannabelelder respiratory rate E&M 20 /min Qi Harvey gayenenfelder pulse rate 70 /min Qi Odenneannabele [facility] weight E&M 208 [lb_av] Qi Toroe [facility] height E&M 60 [in_i] Qi Munae [...] Body Mass Index (Ratio) 40.03 kg/m2 Willy [facility] blood pressure, cuff size large Ke rri [...] pressure, systolic 120 mm[Hg] Rosa Maria ri Munawhite river junction va medical centerer oxygen saturation, oximetry 98 % Qi Torohouston [facility] respiratory rate E&M 20 /min Qi Gabriel frankykamhouston [facility] pulse rate 70 /min Qi Flores er weight E&M 202 [lb_av] Qi Flores er height E&M 60 [in_i] Qi Flores er Body Mass Index (Ratio) 39.84 kg/m2 Chivo Pham MD pulse rate 68 /min [facility] oxygen saturation, oximetry 97 % Jesús [facility] Hospit[facility] blood pressure, diastolic 70 mm[Hg] Isael Phillips blood pressure, systolic 112 mm[Hg] Sujata Phillips respiratory rate E&M 16 /min Jesús [facility] Hospitalcrowtuba city regional health care corporationfrancisco weight E&M 204 [lb_av] [facility] height E&M 60 [in_i] [facility] Body Mass Index (Ratio) 40.03 kg/m2 Cuauhtemoc Shipley blood pressure, diastolic 60 mm[Hg] Ki lleen Morgan blood pressure, systolic 112 mm[Hg] Kil bill Morgan oxygen saturation, oximetry 98 % Phoenix Morgan respiratory rate E&M 16 /min Andrea [...] blood pressure, diastolic 80 mm[Hg] Julien goins [place] blood pressure, systolic 116 mm[Hg] Demetria villegas [place] respiratory rate E&M 17 /min Luda Soy blood pressure, cuff size regular Julien goins [place] weight E&M 204 [lb_av] Luda [place] pulse rate 72 /min Luda Soy oxygen saturation, oximetry 98 % Luda [place] height E&M 60 [in_i] Luda Soy Body [...] Body Mass Index (Ratio) 40.85 kg/m2 Onur Folye MD blood pressure, diastolic 65 mm[Hg] Evon [...] % Andrea respiratory rate E&M 16 /min Andrea Morgan pulse rate 16 /min weight E&M 204 [lb_av] height E&M 60 [in_i] [facility] Body Mass Index (Ratio) 40.03 kg/m2 Donte Alejandra MD blood pressure, cuff size regular Ke rri Mally blood pressure, diastolic 72 mm[Hg] Ke rri Mally blood pressure, systolic 118 mm[Hg] Rosa Maria Bal oxygen saturation, oximetry 98 % Qi Bal respiratory rate E&M 18 /min Qi rangel pulse rate 70 /min Qi Flores [facility] weight E&M 205 [lb_av] Qi Flores er height E&M 60 [in_i] Qi Flores [facility] Body Mass Index (Ratio) 38.08 kg/m2 Mee Martini NP blood pressure, diastolic 70 mm[Hg] Julien isty Soy blood pressure, systolic 110 mm[Hg] Julieni nelly Soy oxygen saturation, oximetry 98 % Luda [place] respiratory rate E&M 17 /min Luda Soy pulse rate 70 /min Luda [place] weight E&M 195 [lb_av] Luda [place] blood pressure, cuff size regular Kr isty Soy height E&M 60 [in_i] uLda Olivier Body Mass Index (Ratio) 38.47 kg/m2 Onur Foley MD blood pressure, diastolic 68 mm[Hg] Francisco chaidez Morgan blood pressure, systolic 112 mm[Hg] Sue Riberaam oxygen saturation, oximetry 98 % [place] Morgan respiratory rate E&M 16 /min Andrea Morgan pulse rate 74 /min Phoenix Morgan weight E&M 197 [lb_av] Andrea Morgan height E&M 60 [in_i] Andrea [place] Body Mass Index (Ratio) 37.49 kg/m2 Donte Alejandra MD respiratory rate E&M 19 /min Marie Burnett blood pressure, diastolic 70 mm[Hg] Matheus hoover [place] blood pressure, systolic 112 mm[Hg] Omalley evita [place] pulse rate 75 /min Marie Randle oxygen saturation, oximetry 98 % [facility] blood pressure, cuff size regular Matheus hoover [place] weight E&M 192 [lb_av] Marie Burnett height E&M 60 [in_i] [facility] Body Mass Index (Ratio) 38.66 kg/m2 Donte [...] LinkLogic 3.5-5.2 sodium, serum 141 mmol/L LinkLogic 509-062 5224/05 /15 urea nitrogen/creatinine ratio, serum 20 LinkLogic [...] mmol/L LinkLogic 3.5-5.2 sodium, serum 144 mmol/L [phone]/10 /24 urea nitrogen/creatinine ratio, serum 18 LinkLogic [...] Not Estab. platelet count 155 X10E3/UL LinkLogic [phone]/10 /24 red blood cell distribution width 12.7 [...] 3.5-5.2 High sodium, serum 144 mmol/L LinkLogic 170-661 3052/01 /31 urea nitrogen/creatinine ratio, serum 17 LinkLogic [...] LinkLogic 3.5-5.2 sodium, serum 141 mmol/L LinkLogic 572-190 6150/11 /28 urea nitrogen/creatinine ratio, serum 18 LinkLogic [...] Not Estab. platelet count 203 X10E3/UL LinkLogic 389-404 9420/11 /28 red blood cell distribution width 14.4 [...] LinkLogic 3.5-5.2 sodium, serum 140 mmol/L LinkLogic [phone]/10 /12 urea nitrogen/creatinine ratio, serum 17 LinkLogic [...] Not Estab. platelet count 219 X10E3/UL LinkLogic 358-188 2859/06 /06 red blood cell distribution width 13.7 [...] 3.5-5.2 High sodium, serum 142 mmol/L LinkLogic [phone]/06 /06 urea nitrogen/creatinine ratio, serum 22 LinkLogic [...] percentage of total cells, blood 0.2 % [facility] - nucleated red blood cells as percent of blood leukocytes 0.3 % [facility] - red blood cell (erythrocyte) count, [...] - 3.9 mean platelet volume 13.8 (?) [facility] - platelet count 169.0 THOUSAND/UL LinkLogic 100.0 [...] percentage of total cells, blood 0.1 % [facility] - mean corpuscular volume, RBC 94.0 fL LinkLog 75.0 - 100.0 hematocrit, blood 43.7 % [facility] 35.0 - 55.0 hemoglobin, blood 13.6 g/dL LinkLog 11.5 - 16.5 erythrocyte count, whole blood 4.7 MILLION/UL LinkLog 3.5 - 5.5 trichomonas vaginalis, urine None seen LinkLog urine crystals, microscopic None seen [facility] casts, urine, microscopic None seen [facility] mucus on urinalysis None seen [facility] Not Estab. nucleated red blood cells as percent of blood leukocytes 0.0 % [facility] - red blood cell (erythrocyte) count, per high power field 0.0 10*3/UL [facility] - eosinophils as percent of blood leukocytes 3.0 % [facility] - neutrophils as percent of blood leukocytes 57.7 % [facility] - Absolute Neutrophils 4.1 CELLS/UL LinkLog 1.5 - 7.8 basophils as percent of blood leukocytes 0.7 % [facility] - Absolute Basophils 0.1 CELLS/UL LinkLogic 0.0 - 0.2 monocytes as percent of blood leukocytes 14.3 % [facility] - Absolute Monocytes 1.0 CELLS/UL LinkLog 0.2 - 1.0 High lymphocytes as percent of blood leukocytes 24.2 % [facility] - Absolute Lymphocytes 1.7 CELLS/UL LinkLogic 0.9 - 3.9 mean platelet volume 13.6 (?) [facility] - platelet count 145.0 THOUSAND/UL LinkLog 100.0 [...] Take 1 tablet as needed - Amadeo Velsaco Entresto 24-26 mg tablet completed 1 tablet [...] 10 days - Jesús Phillips VITAMIN D3 69914 UNIT ORAL TABLET completed TAKE ONE TAB [...] Foley MD smoking status Never smoker Karime Wood social history E&M S moking History: [...] smoking status Never smoker Rachel Breen in COOK MESS social history reviewed E&M revi ewed - no changes required Rachel Bautista NP social history reviewed E&M revi ewed - no changes required Juno Foley MD smoking status Never smoker Amadeo [facility] smoking status Never smoker Vanessa Sahra [...] MD smoking status Never smoker Amadeo Darby [facility] social history reviewed E&M revi ewed - no changes required Puma Benigno smoking status Never smoker Amadeo Darby [facility] social history reviewed E&M revi ewed - [...] required Juno Foley MD alcohol counseling yes [place] I ngram alcohol use, average drinks per day 4+ [place] Morgan alcohol use yes [place] Morgan smoking status Never smoker [place] Ingra m number of grandchildren Juno Foley MD U nicole Foley MD alcohol counseling yes Qi fierro alcohol use, average drinks per day 4+ Qi Bla alcohol use yes Qi delgado smoking status [...] Mark harjiter smoking status Never smoker Qi Obando [...] Josh Lim alcohol counseling yes Qi Branch vadmi alcohol use, average drinks per day 4+ [...] required Mk Alejandra MD alcohol counseling yes [place] I ngram alcohol use, average drinks per day 4+ Andrea Morgan alcohol use yes [place] Morgan smoking status Never smoker [place] Ingra m number of grandchildren Mk Lane social history E&M S moking History: Caterina best has never smoked. Juan David Lane social history reviewed E&M revi ewed - no changes required JuanD avid Lane smoking status Never smoker Juan David [...] 4+ Luda Soy alcohol use yes Luda Soy smoking status [...] required Mk Alejandra MD alcohol counseling yes [place] Razia nuno alcohol use, average drinks per day 4+ [place] Morgan alcohol use yes Andrea Morgan smoking status Never smoker Andrea Riberaa m alcohol counseling yes Qi howellfelder alcohol use, average drinks per day 4+ Qi Odenmarileeer alcohol use yes Qi Hernandezkhushi lder smoking status Never smoker Qi naqvi number of grandchildren Mk Drake Hu COOK MESS alcohol counseling yes Luda Bu sby alcohol use, average drinks per day 4+ Luda [place] alcohol use yes Luda Soy smoking status Never smoker Luda [place] number of grandchildren Juno Foley MD U nicole Foley MD social history reviewed E&M revi ewed - no changes required Juno Foley MD social history reviewed E&M revi ewed - no changes required Mk Alejandra MD smoking status Never smoker [facility] social history E&M S moking History: Caterina best has never smoked. [facility] social history reviewed E&M revi ewed - no changes required [facility] Leda alcohol counseling yes Qi Branch vadim alcohol use, average drinks per day 4+ Qi Ozer alcohol use yes Qi Hernandezannabelnathan lder social history reviewed E&M revi ewed - no changes required Mk Alejandra MD alcohol counseling yes Vidal Hu COOK MESS alcohol use, average drinks per day 4+ Vidal Hu COOK MESS alcohol use yes Vidal Hu COOK MESS smoking status Never smoker Vidal Hu COOK MESS number of grandchildren Mk Ellsworth social history [...] Osmin [place] number of grandchildren Mk Solorio [facility] social history E&M Smoking Histo ry: P atlakeisha has never smoked. Osmin [facility] social history reviewed E&M revi ewed - [...] Payer name Policy type / Coverage type [facility] ID [place] Medicare [id number] ADVANCE DIRECTIVES Name Date DISCUSSED - NO DECISION MADE TREATMENT PLAN Date Name Performer [id number],B, Juno Foley MD [id number],C,seen on last echo Juno Foley MD [id number],C,last echo EF 60% Juno Foley MD [id number],C,p er PCP, she will start jardiance for renal protection l ast A1c 5.5% Juno Foley MD [id number],S, uJno Foley MD [id number],C, H er updated medication list for this problem includes: Crestor 20 Mg Tablet (Rosuvastatin) ..... Take 1 tablet once a day Juno Foley MD [id number],C, B P today: 120/79 P rior BP: 114/78 (08/16/2022) Labs Reviewed: C reat: 0.91 (03/10/2021) C hol: 211 (11/26/2018) HDL: 60 (11/26/2018) Her updated medication list for this problem includes: Sotalol 80 Mg Tablet (Sotalol) ..... Take 0.5 tablet by mouth twice a day Juno Foley MD [id number],B, Juno Foley MD [id number],B,I will repeat her echo in a month or so. She is on Entresto and Crestor. She also has a defibrillator Juno Foley MD [id number],S, Juno Foley MD [id number],B, Juno Foley MD [id number],S, Juno Foley MD [id number],S, Juno Foley MD [id number],S, A ppears stable. No chest pain. Continues on crestor. Her updated medication list for this problem includes: Sotalol 80 Mg Tablet (Sotalol) ..... Take 0.5 tablet once a day Juno Foley MD [id number],S, s he hasn't been using cpap at night Juno Foley MD [id number],S, I 'm going to cut her crestor to 20mg - I don't think she needs such a high dose since she has only mild CAD. Her updated medication list for this problem includes: Crestor 20 Mg Tablet (Rosuvastatin) ..... Take 1 tablet once a day Juno Foley MD [id number],S, N o recurrence K 4.4. 06/19/21 Juno Foley MD [id number],S, B P today: 101/59 P rior BP: 135/78 (11/19/2021) Her updated medication list for this problem includes: Sotalol 80 Mg Tablet (Sotalol) ..... Take 0.5 tablet once a day Juno Foley MD [id number],S, C lincally well compensated and is without shortness of breath. Continues on Entresto 49-51mg dose. Last EF was 60-65%. Juno Foley MD [id number],S, s /p BIV ICD, no recent events or shocks Juno Foley MD [id number],S, A 1C 5.5 Her updated medication list for this problem includes: Ozempic 0.25 Mg Or 0.5 Mg(2 Mg/1.5 Ml) Pen Injector (Semaglutide) ..... Once a week as directed Entresto 24-26 Mg Tablet (Sacubitril-valsartan) ..... 1 tablet by mouth twice a day Glipizide 5 Mg Tablet Extended Release 24hr (Glipizide) ..... Take 1 tablet by mouth once a day Rachel Bautista NP [id number],S, E F 60~65% on last echo. Rachel Bautista NP [id number],S, C lincally well compensated and is without shortness of breath. Continues on Entresto 49-51mg dose today. Rachel Bautista NP [id number],S, T he patient is using CPAP on a regular basis. The patient has been benefiting from therapy and should continue use. Rachel Bautista NP [id number],S, E pisode in September 2017 leading to shock by defibrillator. No recurrence. Rachel Bautista HALEY [id number],W, P rescribed Buspar by PCP. Recommend neurology evaluation. Rachel Bautista HALEY [id number],S, H er updated medication list for this problem includes: Tricor 145 Mg Tablet (Fenofibrate nanocrystallized) ..... 1 tablet once a day Crestor 40 Mg Tablet (Rosuvastatin) ..... 1 tablet once a day Rachel Bautista HALEY [id number],S, B P today: 135/78 P rior BP: 110/79 (10/05/2021) Her updated medication list for this problem includes: Sotalol 80 Mg Tablet (Sotalol) ..... Take 0.5 tablet once a day Rachel Jerel DE LEON [id number],C, T he patient is using CPAP on a regular basis. The patient has been benefiting from therapy and should continue use. Juno Foley MD [id number],C, N o recurrence K 4.4. 06/19/21 Juno Foley MD [id number],C, H er updated medication list for this problem includes: Tricor 145 Mg Tablet (Fenofibrate nanocrystallized) ..... 1 tablet once a day Crestor 40 Mg Tablet (Rosuvastatin) ..... 1 tablet once a day Juno Foley MD [id number],C, s /p BIV ICD, no recent events or shocks Juno Foley MD [id number],C, B P today: 110/79 P rior BP: 130/80 (06/22/2021) Labs Reviewed: C reat: 0.91 (03/10/2021) C hol: 211 (11/26/2018) HDL: 60 (11/26/2018) Her updated medication list for this problem includes: Sotalol 80 Mg Tablet (Sotalol) ..... Take 0.5 tablet once a day Juno Foley MD [id number],B, C lincally well compensated and is without shortness of breath. Continues on Entresto 49-51mg dose today. Juno Foley MD [id number],B, E F 60~65% on last echo. Juno Foley MD [id number],S, Rachel brian COOK MESS [id number],B, Rachel brian COOK MESS [id number],N,P rescribed Buspar by PCP. Feels better. Rachel Bautista NP [id number],B,resolved Abhinav Bautista NP [id number],S, Juno Foley MD [id number],B,on last echo. Juno Foley MD [id number],C,will repeat b mp. Juno Foley MD [id number],C,T his may be a vasovagal attack, but [...] medical condition(s) listed above for the patient. [facility]:No signs of decompensation This visit has been a part of the consistent, comprehensive, and ongoing management of the chronic medical condition(s) listed above for the patient. [facility]:This visi t has been a part of the consistent, comprehensive, and ongoing management of the chronic medical condition(s) listed above for the patient. Her updated medication list for this problem includes: Jardiance 10 Mg Tablet (Empagliflozin) Ozempic 0.25 Mg Or 0.5 Mg(2 Mg/1.5 Ml) Pen Injector (Semaglutide) ..... Once a week as directed [facility]:Cath 2017 I MPRESSION: 1 . Mild pulmonary hypertension. 2 . Severe LV dysfunction. 3 . Moderate nonobstructive CAD. 4 . No significant renal artery stenosis. This visit has been a part of the consistent, comprehensive, and ongoing management of the chronic medical condition(s) listed above for the patient. [facility]:This visi t has been a part [...] (Semaglutide) ..... Once a week as directed [facility] wo und check : l ast echo EF 60% [facility] Electrophysiology wo und check : C lincally well compensated and is without shortness of breath. Continues on Entresto 24-26 mg dose. Last EF was 60-65%. [facility] Electrophysiology wo und check : P rior BP: 112/80 (12/12/2023) Labs Reviewed: C reat: 0.91 (03/10/2021) C hol: 211 (11/26/2018) HDL: 60 (11/26/2018) LDL: 116 (11/26/2018) T (11/26/2018) Her updated medication list for this problem includes: Sotalol 80 Mg Tablet (Sotalol) ..... Take 0.5 tablet by mouth twice a day [facility] Electrophysiology: H er updated medication list for this problem includes: Ozempic 0.25 Mg Or 0.5 Mg(2 Mg/1.5 Ml) Pen Injector (Semaglutide) ..... Once a week as directed [facility] Electrophysiology:Pt denies any CP or SOB. [facility] Electrophysiology: B P today: 112/80 P rior BP: 118/72 (09/05/2023) Labs Reviewed: C reat: 0.91 (03/10/2021) C hol: 211 (11/26/2018) HDL: 60 (11/26/2018) LDL: 116 (11/26/2018) T (11/26/2018) Her updated medication list for this problem includes: Sotalol 80 Mg Tablet (Sotalol) ..... Take 0.5 tablet by mouth twice a day [facility] Electrophysiology:FRANKI, scheduled for gen change Barrett Johnston [...] Juno Foley MD Cardiology follow up UQ COOK MESS : E pisode in September 2017 leading to shock by defibrillator. No recurrence. Mk Alejandra MD Cardiology follow up UQ COOK MESS :A1C 5.5 H er updated medication list [...] Mk Alejandra MD Cardiology follow up UQ COOK MESS :Entresto decreased last month. BP stable, pt feels much better Her updated medication list for this problem includes: Aspir-81 81 Mg Oral Tablet Delayed Release (Aspirin) ..... Take one tablet daily Sotalol 80mg Tablets (Sotalol hcl) ..... Take one half tablet per day Tania Gomez NP Cardiology follow up UQ COOK MESS :Device ok. R V 94%, LV94% N o AF/AT/VT. Onepisode of SVT 8 seconds Tania Gomez COOK MESS Cardiology follow up UQ COOK MESS : E pisode in September 2017 leading to shock by defibrillator. No recurrence. Tania Marin Patricia DE LEON Cardiology follow up UQ COOK MESS :K 4. 6 . Cr. 0.91 Tania Gomez COOK MESS Cardiology follow up UQ COOK MESS :A1C 5.5 H er updated medication list [...] Cardiology:Repeat gaston best was taken off of [facility] in the hospital Juno Foley MD Cardiology:The [...] twice daily Juno Foley MD Cardiology:Continues on [facility] Juno Foley MD Cardiology:Increased Entresto to 49-51mg [...] Foley MD Cardiology:Advised t o remain on [facility] at this time and not to restrict [...] revision. Most recent device check: 05/05/2020 AT/AF [place]: 0% % Pacing: RV Pacing- 98% RA Pacing- 0% LV P acing- 98% Juno Foley MD Cardiology:Will swit ch from Lisinopril to Entresto. Will check a BMP in one month. Juno Foley MD Electrophysiology:no rmal device function w ell healing scar [facility] Cardiology follow up :normal device fucntion w ell healing scar [facility] Cardiology:normal de vice function w ell healing scar [facility] Electrophysiology:wi ll need lead replacement in 3 months after she had fully healed [facility] Electrophysiology: H er updated medication list for this problem includes: Lisinopril 5 Mg Oral Tablet (Lisinopril) ..... One tab. daily Aspir-81 81 Mg Oral Tablet Delayed Release (Aspirin) ..... Take one tablet daily Sotalol 80mg Tablets (Sotalol hcl) ..... Take 1 tablet by mouth twice daily [facility] Electrophysiology: H er updated medication list [...] lead replacement. Pt agrees with this plan [facility] Electrophysiology:Di scussed need for new LV lead replacement [facility] Electrophysiology: B P today: 126/88 P rior [...] tab. twice daily Orders: C omplete Echo (CPT-79088) C omplete Echo (CPT-88856) X -Ray, Chest - Routine (CPT-31458) X -Ray, Chest - Routine (CPT-26720) Mk Alejandra MD Electrophysiology: H er updated medication list for this problem includes: Lisinopril 5 Mg Oral Tablet (Lisinopril) ..... One tab. daily Aspir-81 81 Mg Oral Tablet Delayed Release (Aspirin) ..... Take one tablet daily Sotalol Hcl 80 Mg Oral Tablet (Sotalol hcl) ..... One tab. twice daily Orders: E KG (CPT-92920) C omplete Echo (CPT-01382) X -Ray, Chest - Routine (CPT-63620) Mk Alejandra MD Cardiology:PAtient v milanaalizes that [...] chedule Followup (*) 9 9214 MOD Complex (CPT-26252) V enous Doppler Bilateral LE (CPT-38425) Mk Alejandra MD Electrophysiology F ollow up : W ill check venous doppler BLE for DVT. W ill check CMP and d-dimer. S chedule CT chest with IV contrast IF d-dimer comes back positive. Hx of SOB and leg edema. Orders: C OMPREHENSIVE METABOLIC PANEL, W/EGFR (44423) D -DIMER, QUANTITATIVE (8659) L IPID PANEL (3460) V enous Doppler Bilateral LE (CPT-74074) S chedule Followup (*) 9 9214 MOD Complex (CPT-21503) Her updated medication list for this problem [...] PVCs/hr. Orders: C OMPREHENSIVE METABOLIC PANEL, W/EGFR (22662) D-DIMER, QUANTITATIVE (8659) L IPID PANEL (9760) S chedule Followup (*) 9 14 MOD Complex (CPT-66610) Her updated medication list for this problem includes: Lisinopril 2.5 Mg Oral Tablet (Lisinopril) ..... One tab. at night Aspir-81 81 Mg Oral Tablet Delayed Release (Aspirin) ..... Take one tablet daily Sotalol Hcl 80 Mg Oral Tablet (Sotalol hcl) ..... One tab. twice daily Mk Alejandra MD Electrophysiology Ho spital Follow up : O rders: U RINALYSIS, COMPLETE W/REFLEX TO CULTURE (2004) Her updated medication list for this problem [...] One tab. twice daily Orders: E KG (CPT-22904) 9 9214 MOD Complex (CPT-27637) C omplete Echo (CPT-66579) Mk Alejandra MD Electrophysiology Ho spital Follow up : O rders: 9 9214 MOD Complex (CPT-79545) C omplete Echo (CPT-08039) Her updated medication list for this problem [...] 04/21/17. 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 No SVT. Her updated medication [...] Orders: A BLATION w/ Anesthesia (*) 9 9291 LTD. Complex (CPT-55063) Schedule Followup (*) Her updated medication list [...] 05/15/18 shows EF 35%. Orders: E KG (CPT-90632) 9 9299 MOD Complex (CPT-60511) S chedule Followup (*) Her updated medication [...] Fo llow up :Orders: 9213 MOD Complex (CPT-43639) S chedule Followup (*) Her updated medication [...] 04/21/17. 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 No SVT. Her updated medication [...] anesthesia in the next few months at [facility]. P atient to take 5mg Coumadin daily for 7 days prior to procedure. Orders: 9213 MOD Complex (CPT-18322) S chedule Followup (*) A BLATION w/ [...] 04/21/17. 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 No SVT. F ollowup with [...] tab. twice daily Juan [address] Electrophysiology [facility] Ariana Electrophysiology Ho spital Follow up :Normal [...] INR (8847) C OMPREHENSIVE METABOLIC PANEL W/EGFR (88685) U RINALYSIS, COMPLETE W/REFLEX TO CULTURE (3020) [...] Mk Alejandra MD Electrophysiology follow up Donte Alejnadra MD Electrophysiology: H er updated medication list [...] Follow up : O rders: S NOMED-CT: [id number] Current Medications Documented ([id number]) E KG (CPT-02773) G lobal No Charge (CPT-84626) F VC - 05294 (29051) F RC - 19029 (47142) D LCO - 00310 (70790) Her updated medication list for this problem [...] up : O rders: D O - 52121 (16141) [facility] (*) Her updated medication list for this problem includes: Spironolactone 25 Mg Oral Tablet (Spironolactone) ..... Half tablet daily Carvedilol 6.25 Mg Oral Tablet (Carvedilol) ..... One tab. twice daily Enalapril Maleate 20 Mg Oral Tablet (Enalapril maleate) ..... One tab. daily Saulius Kalvaitis MD Electrophysiology Ho spital Follow up :improved on amiodarone O rders: Harvey saleh No Charge (CPT-21166) S vesta Followup (*) Her updated medication list for this problem includes: Amiodarone Hcl 200 Mg Oral Tablet (Amiodarone hcl) ..... Take one pill a day Carvedilol 6.25 Mg Oral Tablet (Carvedilol) ..... One tab. twice daily Enalapril Maleate 20 Mg Oral Tablet (Enalapril maleate) ..... One tab. daily Mk Alejandra MD Electrophysiology - NP:s/p biv icd Vidal Hu COOK MESS Cardiology:Having surgery to rem ove part of [...] (Enalapril maleate) ..... One tab. daily Osmin [facility] EP fax[facility]23[facility]:Her updated medication [...] schedule EP study after her cath. Osmin [facility] EP faxed 01/23/17:Her updated medication list for this problem includes: Carvedilol 6.25 Mg Tabs (Carvedilol) ..... One tab. twice daily Enalapril Maleate 20 Mg Tabs (Enalapril maleate) ..... One tab. daily Magnesium Oxide 400 Mg Oral Tabs (Magnesium oxide) .... One tablet twice daily <--- Starting today Osmin [facility] Cardiology:[place] [address] ectopics 6.8% of total beats. Will schedule [...] Duplex Bilat eral Complete Echo DLCO - 28617 FRC - 28457 FVC - 22310 MAGNESIUM COMPREHENSIVE METABO LIC PANEL, W/EGFR THYROID PANEL WITH T SH, 3RD GENERATION Complete Echo DLCO - 20016 FRC - 21708 FVC - 25362 Complete Echo URINALYSIS, COMPLETE W/REFLEX TO CULTURE [...] Juno Foley MD INTERROGATION REMOTE </90 D LOAN SERVICING SPECIALIST REVIEW completed AICD Interrogation, Remote (Prof) Juno [...] Juno Foley MD INTERROGATION REMOTE </90 D LOAN SERVICING SPECIALIST REVIEW completed AICD Interrogation, Remote (Prof) Juno [...] jc MD completed FVC / MVV - 37190 Mk davila MD completed FRC - 07506 Mk jc MD completed SpO2 w/o 6min walk/titration Mk Alejandra MD completed DLCO - 41891 Mk jc MD completed EKG Mk cj MD completed EKG Mk jc MD completed [...] REMOTE </30 D TECH REVIEW completed SNOMED-CT: 68998326 Physical Exam, Performed: Pulse Exam of Foot Juno Foley MD completed SNOMED-CT: 712458700398169 Current Medications Documented Juno Foley MD completed EKG Mk jc MD completed EKG Juno Foley MD completed EKG Mk jc MD completed SNOMED-CT: 168554179207286 Current Medications Documented Mk Alejandra MD completed EKG Mk jc MD completed SNOMED-CT: 631044577350438 Current Medications Documented Mk Alejandra MD completed FVC / MVV - 29064 Mk davila MD completed FRC - 95348 Mk jc MD completed SpO2 - 00127 Mk jc MD completed DLCO - 96113 Mk jc MD completed ICM Interrogation, Remote (Prof) Juno Foley MD INTERROGATION EVAL REMOTE </30 D CV MNTR SYS completed ICM Interrogation, Remote (Tech) Juno Foley MD INTERROGATION EVAL REMOTE </30 D TECH REVIEW completed Schedule Followup Mk davila MD in 3 weeks completed EKG Mk jc MD completed SNOMED-CT: 258888870084120 Current Medications Documented Mk Alejandra MD completed ICM Interrogation, Remote (Prof) Juno Foley MD INTERROGATION EVAL REMOTE </30 D CV MNTR SYS completed ICM Interrogation, Remote (Tech) Juno Foley MD INTERROGATION EVAL REMOTE </30 D TECH REVIEW completed Schedule ICD Check Edin Bonne Terre ck DO completed Schedule Followup Edin Glascoc k DO 6 months completed EKG Edin Lorenzanacock DO completed SNOMED-CT: 850123799494209 Current Medications Documented Edin Lorenzanacock DO completed ICM Interrogation, Remote (Prof) Juno Foley MD INTERROGATION EVAL REMOTE </30 D CV MNTR SYS completed ICM Interrogation, Remote (Tech) Juno Foley MD INTERROGATION EVAL REMOTE </30 D TECH REVIEW completed SNOMED-CT: 81003227 Physical Exam, Performed: Pulse Exam of Foot Juno Foley MD completed SNOMED-CT: 891833211571456 Current Medications Documented Juno Foley MD completed EKG Mk jc MD completed SNOMED-CT: 657802320382377 Current Medications Documented Mk Alejandra MD completed EKG Mk jc MD completed SNOMED-CT: 346530090674558 Current Medications Documented Mk Alejandra MD completed Schedule Followup Mk davila MD 3 months completed SNOMED-CT: 831239538591033 Current Medications Documented Mk Alejandra MD completed EKG Mk jc MD completed Loop Recorder Interrogation, Remote Juno Foley MD INTERROGATION EVALUATION REMOTE </30 D ILR SYS completed ICM Interrogation, Remote (Tech) Juno Foley MD INTERROGATION EVAL REMOTE </30 D TECH REVIEW completed EKG Mk jc MD completed SNOMED-CT: 526642123357142 Current Medications Documented Mk Alejandra MD completed Protime Juno Foley MD completed Protime Juno Foley MD completed SNOMED-CT: 37486305 Physical Exam, Performed: Pulse Exam of Foot Juno Foley MD completed SNOMED-CT: 294769496436367 Current Medications Documented Juno Foley MD completed EKG Mk jc MD completed SNOMED-CT: 735714959502889 Current Medications Documented Mk Alejandra MD completed SNOMED-CT: 46468311 Physical Exam, Performed: Pulse Exam of Foot Juno Foley MD completed SNOMED-CT: 172906046050165 Current Medications Documented Juno Foley MD completed Stress EKG Emmy Pham MD completed Regadenoson, 4 units Juno Foley MD completed Cardiolite, 2 units Juno Foley MD completed SPECT Images Emmy Pham MD complet ed EKG Juno Foley MD completed SNOMED-CT: 882526166120378 Current Medications Documented Juno Foley MD completed
--- OUTSIDE RECORDS SUMMARY | 2025-02-03 10:40 | XMS_ITS | Clinical Summary ---
Author Organization [facility] Address [address] [place] [address] Care Team Providers Care Filter Press Pumper Name Role Phone Duglas Collado MD Primary Care Provider Source Comments [facility] Affiliates and Associated Physician Practices is amultiple site organization consisting of ambulatory clinics and hospital sitesin [place], [place], [place] and [place]. This disclosure is being madepursuant to the Care Everywhere program and may not contain all information available regarding this patient. Last updated 18.[facility] Allergies Active Allergy Reactions Criticality Noted Date [...] Active vitamin D, ergocalciferol, (DRISDOL) 1.25 MG (15803 UT) capsule Take 50,000 Units by mouth [...] Comments Blood Pressure 110/68 10/28/2019 2:58 PM CADDY PACKER Pulse 77 10/28/2019 2:58 PM CADDY PACKER Temperature 36.7 C (98.1 F) 10/28/2019 2:58 PM CADDY PACKER Respiratory Rate 18 10/28/2019 2:58 PM CADDY PACKER Oxygen Saturation 96% 10/28/2019 2:58 PM CADDY PACKER Inhaled Oxygen Concentration - - Weight 87.2 kg (192 lb 4.8 oz) 10/28/2019 2:58 P M CADDY PACKER Height 165.1 cm (5' 5 ) 10/28/2019 2:58 PM CADDY PACKER Body Mass Index 32 10/28/2019 2:58 PM CADDY PACKER Plan of Treatment Health Maintenance Due Date [...] Recently Relevant to Health Maintenance Care Teams Filter Press Pumper Relationship Specialty Start Date End Date Duglas Collado MD [address] [facility] [address] [place] [id number] PCP - General Internal Medicine 07/16/19
== END 2025-02-03 09:58 | disposition home or self-care (01) ==
PROVIDERS: PCP Internal Medicine; Visit Provider Internal Medicine
DX: K59.00 Constipation, unspecified (principal)
CPT/HCPCS: 74019

== ENCOUNTER 2025-02-16 10:27 | Outpatient (CLI) | payer MEDICARE, SELFPAY ==
[2025-02-16 10:44] LABS: Hematocrit 41.4 % (37.0-47.0); Hemoglobin 13.3 g/dL (12.0-15.0); Mean Corpuscular HGB Conc 32.1 g/dl (32-36); Mean Corpuscular Volume 93.5 fl (80-100); Mean Platelet Volume 12.4 fl (7.4-10.4); Platelet Count Result 118 k/mm3 (150-375); Red Blood Count 4.43 M/mm3 (4.2-5.4); Red Cell Distribution Width 14.7 % (11.5-14.5); White Blood Count 8.8 K/mm3 (4.5-10.0)
[2025-02-16 11:01] LABS: CRP < 0.5 mg/dL (<1.0)
[2025-02-16 11:23] LABS: Erythrocyte Sedimentation Rate 16 mm/hr (0-20)
--- OUTSIDE RECORDS SUMMARY | 2025-02-16 12:08 | XMS_ITS | Clinical Summary ---
Author Organization [facility] Address [address] [place] [address] Phone Care Team Providers Care Director Of Business Continuity Name Role Phone Duglas Collado MD Primary [...] Comments Blood Pressure 104/71 2024 2:17 PM OPTICAL SALES ASSOCIATE Pulse 91 2024 2:17 PM OPTICAL SALES ASSOCIATE Temperature 36.9 C (98.4 F) 2024 2:17 PM OPTICAL SALES ASSOCIATE Respiratory Rate 15 2024 2:17 PM OPTICAL SALES ASSOCIATE Oxygen Saturation 95% 2024 2:17 PM OPTICAL SALES ASSOCIATE Inhaled Oxygen Concentration - - Weight 69.3 kg (152 lb 12.8 oz) 2024 2:17 PM OPTICAL SALES ASSOCIATE Height 152.4 cm (5') 04/25/2022 11:38 AM CDT Body Mass Index 29.84 04/25/2022 11:38 AM CDT Plan of Treatment Upcoming Encounters Date Type Department Care Team (Late st Contact Info) Description 04/12/2025 11:00 AM CDT Office Visit [facility] Oncology and Hematology - [place] [address] [place] [address] Brandon Willis MD [address] [place] [address] Health Maintenance Due Date Last [...] ) (1 - 1-dose 75+ series) 2025 OSTEOPOROSIS SCREENING 11/28/2028 11/28/2023, 2020 COLORECTAL SCREENING 11/07/2032 11/07/2022, 07/01/20 13 Colorectal Cancer Screening 11/07/2032 PNEUMOCOCCAL VACCINE 50+ YEARS Completed 09/17/2022 , 09/19/2019 Medical Devices Implanted Type Area Telecommunications Switch Technician Device Identifier Shelf Expiration Date Model / Serial / Lot Lap Band,Bilat Knee Replacement Implanted:(Quantit y not on file) Explanted:(Quantit y not on file) Insurance MEDICARE PART A AND B [employer] MEDICARE SUPP AESSI MEDICARE PART A AND B [employer] MEDICARE SUPP AESSI Advance Directives For more information, please contact: [phone] * Full Code (Latest Code Status on File) Date Activated Date Inactivated Comments 07/05/2014 8:17 AM 07/05/2014 11:32 AM * Full Code Date Activated Date Inactivated Comments 07/05/2014 6:54 AM 07/05/2014 8:17 AM Care Teams Director Of Business Continuity Relationship Specialty Start Date End Date Duglas Collado MD PCP - General Internal Medicine 03/27/22
--- OUTSIDE RECORDS SUMMARY | 2025-02-16 12:09 | XMS_ITS | Clinical Summary ---
Author Organization [facility] al Address [address] [place] [address] Care Team Providers Care Lead Mechanical Engineer Name Role Phone Dante Collado MD Primary Care Provide r Mk Alejandra MD Unavailable Allergies Active Allergy Reactions Criticality Noted Date [...] (01/17/2021): Added automatically from request for surgery [id number] Troponin level elevated 03/29/2020 Defibrillator discharge 03/28/2020 [...] on file Legal Sex Female 7:03 PM MARKETING AMBASSADOR Gender Identity Not on file Sexual Orientation Not on file Obstetrics History Last Filed Vital Signs Vital Sign Reading Time Taken Comments Blood Pressure 120/81 09/05/2022 8:37 AM MARKETING AMBASSADOR Pulse 66 09/05/2022 8:37 AM MARKETING AMBASSADOR Temperature 36.4 C (97.5 F) 11/18/2021 2:14 PM MARKETING AMBASSADOR Respiratory Rate 25 11/18/2021 6:20 PM MARKETING AMBASSADOR Oxygen Saturation 100% 11/18/2021 6:20 PM MARKETING AMBASSADOR Inhaled Oxygen Concentration - - Weight 66 kg (145 lb 6.4 oz) 09/05/2022 8:37 AM MARKETING AMBASSADOR Height 154.9 cm (5' 1 ) 09/05/2022 8:37 AM MARKETING AMBASSADOR Body Mass Index 27.47 09/05/2022 8:37 AM MARKETING AMBASSADOR Plan of Treatment Health Maintenance Due Date [...] 09/17/2022, 08/28 Medical Devices Implanted Type Area Geodesy Teacher Device Identifier Shelf Expiration Date Model / Serial / Lot [employer] [id number] Solia S 45cm Bipolar Active Fixation Lead Pacing Steroid Eluting - [id number] - [id number] Implanted:Qty: 1 on 09/22/2019 by Mk Alejandra MD at [facility] Lead [employer] [id number] 06/26/2021 [id number] / [id number] / Lead Icd Sentus Promri Left Ventricular Otw Quadripolar L-85/49 - [id number] - [id number] Implanted:Qty: 1 on 04/09/2018 by Mk Alejandra MD at [facility] [employer] 12/25/2019 [id number] / [id number] / [employer] [id number] Angio-Seal Vip Bondek-Plus 8fr .038in 70cm Hemostatic Latex Free - [id number] Implanted:Qty: 1 on 10/13/2018 by Mk Alejandra MD at [facility] [employer] 05/26/2019 [id number] / / [id number] Procedures Procedure Name Priority Date/Time Associated Diagnosis Comments EGFR STAT 11/18/2021 3:26 PM MARKETING AMBASSADOR LIPID PANEL Timed 03/28/2020 1:05 PM CDT COLONOSCOPY REPORT 07/01/2013 from Last 3 Months or Most Recently Relevant to Health Maintenance Results * eGFR (11/18/2021 3:26 PM MARKETING AMBASSADOR) eGFR 73 mL/min/1. 73 m2 MAT FERREIRA [...] last reviewed 2021. Blood 11/18/2021 3:26 PM MARKETING AMBASSADOR 11/18/2021 3:33 PM MARKETING AMBASSADOR us Felisha Porter MD LAB BLOOD ORDERABLES Final Resu lt MAT FERREIRA [id number] [address] Department [place] [address] * Lipid panel (03/28/2020 1:05 PM CDT) [...] CDT 03/28/2020 1:24 PM CDT Narrative MAT EFRREIRA - 03/28/2020 2:40 PM CDT This lipid panel was automatically ordered due to a critical delta for Troponin- T. The dietary status of the patient at the collection time should be correlated with the lipid results. Elieser Mckeon MD LAB BLOOD [place] [id number] [address] Department of Laboratories [place] [id number] * COLONOSCOPY REPORT (07/01/2013) Anatomical Region Laterality Modality Other Narrative 07/01/2013 Ordered by an unspecified provider. Historical Provider GI PROCEDURE ORDERABLES F inal Result from Last 3 Months or Most Recently Relevant to Health Maintenance Insurance MEDICARE [facility] Address: [address] [address] [employer] SENIOR SUPPLEMENT MEDICARE [facility] MEDICARE [employer] Advance Directives For more information, please contact: [phone] * Full Code (Latest Code Status on [...] 11:02 PM 10/01/2017 2:07 PM Care Teams Lead Mechanical Engineer Relationship Specialty Start Date End Date Dante Collado MD [address] [address] PCP - General 09/10/17 [place] [id number] [address] Consulting Physician Cardiology 10/01/17
--- OUTSIDE RECORDS SUMMARY | 2025-02-16 12:09 | XMS_ITS | Continuity of Care Document ---
Author Organization [facility] Address [address] [place] [address] [address] [place] [address] Phone Care Team Providers Care Chronic Care Nurse Name Role Phone Jessica Reece Unavailable Unavailable Procedures Procedure Date Office/outpatient Visit, Est Advance Directives Directive Yes / No Effective Date File Name No Information Encounters Encounter Description Practice Location Reason(s) For Visit Diagnoses Date Provider Providers Copied on Encounter Office/outpat ient Visit, Est [facility], [address] [place] [address] [address], [place], [place], [id number], [place] tel:[phone] [facility] No Information 8-201 [address] Shanell Lopez. [address] , [address], [place], [address], [place]. tel:[phone] Family History Family Member Type Diagnosis Age At Onset No Information Payers Payer name Insurance type Covered alliance party ID Authoriza tion(s) No Information Social [...]
--- OUTSIDE RECORDS SUMMARY | 2025-02-16 12:09 | XMS_ITS | Referral Summary ---
Author Organization [facility] al Address [address] [place] [address] Care Team Providers Care Batterboard Setter Name Role Phone Dante Collado MD Primary Care Provide r Mk Alejandra MD Unavailable [phone] Allergies Active Allergy Reactions Criticality Noted Date [...] (01/17/2021): Added automatically from request for surgery [id number] Troponin level elevated 03/29/2020 Defibrillator discharge 03/28/2020 [...] on file Legal Sex Female 7:03 PM ABRASIVE GRADER Gender Identity Not on file Sexual Orientation Not on file Last Filed Vital Signs Vital Sign Reading Time Taken Comments Blood Pressure 120/81 09/05/2022 8:37 AM ABRASIVE GRADER Pulse 66 09/05/2022 8:37 AM ABRASIVE GRADER Temperature 36.4 C (97.5 F) 11/18/2021 2:14 PM ABRASIVE GRADER Respiratory Rate 25 11/18/2021 6:20 PM ABRASIVE GRADER Oxygen Saturation 100% 11/18/2021 6:20 PM ABRASIVE GRADER Inhaled Oxygen Concentration - - Weight 66 kg (145 lb 6.4 oz) 09/05/2022 8:37 AM ABRASIVE GRADER Height 154.9 cm (5' 1 ) 09/05/2022 8:37 AM ABRASIVE GRADER Body Mass Index 27.47 09/05/2022 8:37 AM ABRASIVE GRADER Plan of Treatment Not on file Medical Devices Implanted Type Area Rock Contractor Device Identifier Shelf Expiration Date Model / Serial / Lot [employer] [id number] Solia S 45cm Bipolar Active Fixation Lead Pacing Steroid Eluting - [id number] - [id number] Implanted:Qty: 1 on 09/22/2019 by Mk Alejandra MD at [facility] Lead [employer] [id number] 06/26/2021 [id number] / [id number] / Lead Icd Sentus Promri Left Ventricular Otw Quadripolar L-85/49 - [id number] - [id number] Implanted:Qty: 1 on 04/09/2018 by Mk Alejandra MD at [facility] [employer] 12/25/2019 [id number] / [id number] / [employer] [id number] Angio-Seal Vip Bondek-Plus 8fr .038in 70cm Hemostatic Latex Free - [id number] Implanted:Qty: 1 on 10/13/2018 by Mk Alejandra MD at [facility] [employer] 05/26/2019 [id number] / / [id number] Procedures Procedure Name Priority Date/Time Associated Diagnosis Comments EGFR STAT 11/18/2021 3:26 PM ABRASIVE GRADER LIPID PANEL Timed 03/28/2020 1:05 PM CDT COLONOSCOPY REPORT 07/01/2013 from Last 3 Months or Most Recently Relevant to Health Maintenance Results * eGFR (11/18/2021 3:26 PM ABRASIVE GRADER) eGFR 73 mL/min/1. 73 m2 MAT FERREIRA [...] last reviewed 2021. Blood 11/18/2021 3:26 PM ABRASIVE GRADER 11/18/2021 3:33 PM ABRASIVE GRADER us Felisha Porter MD LAB BLOOD ORDERABLES Final Resu lt MAT FERREIRA [id number] [address] Department [place] [address] * Lipid panel (03/28/2020 1:05 [...] LAB BLOOD [place] [id number] [address] Department of Laboratories [place] [id number] * COLONOSCOPY REPORT (07/01/2013) Anatomical Region Laterality Modality Other Narrative 07/01/2013 Ordered by an unspecified provider. [facility] Provider GI PROCEDURE ORDERABLES F inal Result from Last 3 Months or Most Recently Relevant to Health Maintenance Insurance MEDICARE [employer] SENIOR SUPPLEMENT MEDICARE [employer] SENIOR SUPPLEMENT MEDICARE [employer] Advance Directives For more information, please contact: [phone] * Full Code (Latest Code Status on [...] 11:02 PM 10/01/2017 2:07 PM Care Teams Batterboard Setter Relationship Specialty Start Date End Date Dante Collado MD [address] [facility] [address] [place] [address] PCP - General 09/10/17 [place] [address] [place] [address] [place] [address] Consulting Physician Cardiology 10/01/17
--- OUTSIDE RECORDS SUMMARY | 2025-02-16 12:10 | XMS_ITS | CONTINUITY OF CARE DOCUMENT ---
Author Name negin princessmikie Address Unknown Organization [facility] Address [address] [place] [address] Phone [phone] Care Team Providers Care Calciner Feeder Name Role Phone Juno Foley MD Unavailable GEORGE WALLACE MD Unavailable [phone] GEORGE WALLACE MD Unavailable PROBLEMS Condition [...] Mk Alejandra MD Fatigue active Vidal Hu [facility] Nausea/Vomiting active Vidal Hu [facility] Dizziness active Juno Foley MD Ventricular tachycardia, [...] In-person encounter Office Visit Juno Foley MD [facility] 4 - 4 In-person encounter Office Visit Juno Foley MD [facility] Chest pain-type to be determined 8 - 3 In-person encounter Office Visit Mk Alejandra MD [facility] Shortness of breathDiabetes Mellitus, Type II, controlled w/vascular complications 3 - 3 In-person encounter Office Visit Juno Foley MD [facility] 8 - 8 In-person encounter Office Visit Juno Foley MD [facility] 9 - 2 In-person encounter Office Visit Mk Alejandra MD [facility] 5 - 5 In-person encounter Office Visit Mk Alejandra MD [facility] 1 - 1 In-person encounter Office Visit Mk Alejandra MD [facility] 6 - 6 In-person encounter Office Visit Mk Alejandra MD [facility] 0 - 0 In-person encounter Office Visit Juno Foley MD [facility] 5 - 5 In-person encounter Office Visit Juno Foley MD [facility] 1 - 1 In-person encounter Office Visit Juno Foley MD [facility] 4 - 4 In-person encounter Office Visit Juno Foley MD [facility] Panic attack?CAD, nonobstructive disease on cath 2017 4 - 6 In-person encounter Office Visit Juno Foley MD [facility] 0 - 0 In-person encounter Office Visit Juno Foley MD [facility] 7 - 7 In-person encounter Office Visit Juno Foley MD [facility] Panic attack? 0 - 2 In-person encounter Office Visit Juno Foley MD [facility] 4 - 4 In-person encounter Office Visit Juno Foley MD [facility] 4 - 7 In-person encounter Office Visit Juno Foley MD [facility] 2 - 2 In-person encounter Office Visit Juno Foley MD [facility] 6 - 6 In-person encounter Office Visit Juno Foley MD [facility] 4 - 4 In-person encounter Office Visit Juno Foley MD [facility] 6 - 6 In-person encounter Office Visit Mk Alejandra MD [facility] Office S/P Medtronic (MRI Safe) REVEAL/LinQ 3 - 3 In-person encounter Office Visit Mk Alejandra MD [facility] 6 - 6 In-person encounter Office Visit Mk Alejandra MD [facility] 5 - 6 In-person encounter Office Visit Mk Alejandra MD [facility] 3 - 3 In-person encounter Office Visit Mk Alejandra MD [facility] 4 - 5 In-person encounter Office Visit Mk Alejandra MD [facility] 8 - 3 In-person encounter Office Visit Mk Alejandra MD [facility] 1 - 1 In-person encounter Office Visit Mk Alejandra MD [facility] 0 - 0 In-person encounter Office Visit Juno Foley MD [facility] SyncopeDiabetes mellitus type II 8 - 4 In-person encounter Office Visit Juno Foley MD [facility] 0 - 0 In-person encounter Office Visit Mk Alejandra MD [facility] Leg edema, bilateral 6 - 2 In-person encounter Office Visit Mk Alejandra MD [facility] Urinary tract infection 4 - 4 In-person encounter Office Visit Mk Aljeandra MD [facility] 9 - 9 In-person encounter Office Visit Mk Alejandra MD [facility] 7 - 7 In-person encounter Office Visit Mk Alejandra MD [facility] 0 - 0 In-person encounter Office Visit Juno Foley MD [facility] 0 - 0 In-person encounter Office Visit Mk Alejandra MD [facility] S/P BiV ICD Biotronik//Genchange BiV ICD Biotronik 12/22/23 ( MRI Safe) 6 - 6 In-person encounter Office Visit Emmy Pham MD [facility] 0 - 5 In-person encounter Office Visit Mk Alejandra MD [facility] Examination, preoperative cardiovascular 1 - 4 In-person encounter Office Visit Mk Alejandra MD [facility] 1 - 1 In-person encounter Office Visit Juno Foley MD [facility] 4 - 4 In-person encounter Office Visit Mk Alejandra MD [facility] Ventricular tachycardia, sustained 1 - 1 In-person encounter Office Visit Juno Foley MD [facility] 0 - 1 In-person encounter Office Visit Juno Foley MD [facility] Dizziness 6 - 6 In-person encounter Office Visit Mk Alejandra MD [facility] 9 - 9 In-person encounter Office Visit Mk Alejandra MD [facility] 2 - 7 In-person encounter Office Visit Mk Alejandra MD [facility] 4 - 6 In-person encounter Office Visit Edin Suresh DO [facility] 8 - 8 In-person encounter Office Visit Juno Foley MD [facility] 2 - 2 In-person encounter Office Visit Mk Alejandra MD [facility] 1 - 6 In-person encounter Office Visit Mk Alejandra MD [facility] 5 - 5 In-person encounter Office Visit Mk Alejandra MD [facility] FatigueNausea/Vomiting 2 - 2 In-person encounter Office Visit Mk Alejandra MD [facility] 7 - 7 In-person encounter Office Visit Juno Foley MD [facility] 4 - 7 In-person encounter Office Visit Mk Alejandra MD [facility] Other symptoms involving cardiovascular systemObesityLBBBMitral regurgitationCHFVentricular tachycardia, nonsustained 3 - 3 In-person encounter Office Visit Juno Foley MD [facility] CardiomyopathyPVC's 0 - 0 In-person encounter Office Visit Juno Foley MD [facility] HyperlipidemiaHTN essentialDiverticulitis, colonHypothyroidismPreoperative cardiovascular examinationSleep apnea--on [...] lder weight E&M 145 [lb_av] Qi Flores [facility] height E&M 60 [in_i] Qi Flores [facility] Body Mass Index (Ratio) 28.90 kg/m2 Onur Foley MD blood pressure, diastolic 89 mm[Hg] Yasmin shirley Decker blood pressure, systolic 127 mm[Hg] Monica [facility] oxygen saturation, oximetry 95 % [facility] pulse rate 103 /min [facility] respiratory rate E&M 12 /min [facility] weight E&M 148 [lb_av] [facility] height E&M 60 [in_i] [facility] blood pressure, cuff size regular An chloeFranciscan Health [facility] blood pressure, diastolic -1 mm[Hg] Cailin nkLog blood pressure, systolic 129 mm[Hg] Snehal kLog Body Mass Index (Ratio) 29.49 kg/m2 Barrett Bradleyzai blood pressure, diastolic 79 mm[Hg] Jessica yla [facility] blood pressure, systolic 129 mm[Hg] Radha la [facility] blood pressure, cuff size regular Jessica yla [facility] pulse rate 82 /min [facility], oximetry 96 % [facility] weight E&M 151 [lb_av] Tania [facility] height E&M 60 [in_i] Tania [facility] Body Mass Index (Ratio) 29.88 kg/m2 Onur Foley MD blood pressure, cuff size regular Matheus Diana blood pressure, diastolic 82 mm[Hg] Ta elvis Diana blood pressure, systolic 132 mm[Hg] Tab ithabby Diana oxygen saturation, oximetry 97 % Jordynabby Diana pulse rate 75 /min Jordyn Sabael weight E&M 153 [lb_av] Jordyn Sabael respiratory rate E&M 12 /min Jordyn Sabael height E&M 60 [in_i] Jordyn Sabael Body Mass Index (Ratio) 29.53 kg/m2 Onur Foley MD pulse rate 74 /min [facility] blood pressure, cuff size large Matheus leal Sabael blood pressure, diastolic 78 mm[Hg] [facility], systolic 124 mm[Hg] [facility] oxygen saturation, oximetry 96 % [facility] respiratory rate E&M 12 /min [facility] weight E&M 151.2 [lb_av] [facility] height E&M 60 [in_i] Jordyn Sabael Body Mass Index (Ratio) 29.49 kg/m2 [facility] blood pressure, cuff size regular [facility] blood pressure, diastolic 76 mm[Hg] [facility] blood pressure, systolic 128 mm[Hg] [facility] pulse rate 62 /min [facility] oxygen saturation, oximetry 99 % [facility] respiratory rate E&M 14 /min [facility] weight E&M 151 [lb_av] [facility] height E&M 60 [in_i] [facility] y Body Mass Index (Ratio) 29.88 kg/m2 Barrett rae blood pressure, cuff size regular Ke [facility]ri [facility] blood pressure, diastolic 80 mm[Hg] Ke [...] blood pressure, cuff size regular Kr isty [place] blood pressure, diastolic 90 mm[Hg] Kr isty [...] pressure, diastolic, left arm 6 mm[ Hg] [facility], systolic, left arm 100 mm [Hg] blood pressure, diastolic, right arm 60 m m[Hg] blood pressure, systolic, right arm 100 m m[Hg] blood pressure, diastolic 60 mm[Hg] Ki blood pressure, systolic 100 mm[Hg] Sue khan [place] oxygen saturation, oximetry 97 % Morgan respiratory rate E&M 16 /min pulse rate 61 /min Andrea Morgan weight E&M 214 [lb_av] Morgan height E&M 60 [in_i] [facility] Body Mass Index (Ratio) 41.59 kg/m2 [...] ri Gruenenfelder oxygen saturation, oximetry 97 % Iq Gruenenfelder respiratory rate E&M 20 /min Qi G ruenenfelder pulse rate 63 /min Qi Gruenenfe er weight E&M 212 [lb_av] Qi Gruenenfe er height E&M 60 [in_i] Qi Gruenenfe [facility] Body Mass Index (Ratio) 40.62 kg/m2 Donte Alejandra MD blood pressure, cuff size large Ke rri Akshatneannabelmethodist [facility] blood pressure, diastolic 70 mm[Hg] Ke rri Gruenenfelder blood pressure, systolic 130 mm[Hg] Rosa Maria Landaverdeuenenfelder oxygen saturation, oximetry 97 % Qi Odenneannabelelder respiratory rate E&M 20 /min Qi Harvey gayenenfelder pulse rate 70 /min Qi Odenneannabele [facility] weight E&M 208 [lb_av] Qi Toroe [facility] height E&M 60 [in_i] Qi Munae [...] Body Mass Index (Ratio) 40.03 kg/m2 Willy [facility] blood pressure, cuff size large Ke [...] pressure, systolic 120 mm[Hg] Rosa Maria ri Munanorth country hospitaler oxygen saturation, oximetry 98 % Qi [facility]om[facility] respiratory rate E&M 20 /min Qi Gabriel frankykammethod[facility] pulse rate 70 /min Qi Flores er weight E&M 202 [lb_av] Qi Flores er height E&M 60 [in_i] Qi Flores er Body Mass Index (Ratio) 39.84 kg/m2 Chivo Pham MD pulse rate 68 /min [facility] oxygen saturation, oximetry 97 % Jesús [facility] Hospitalkarie blood pressure, diastolic 70 mm[Hg] Isael Phillips blood pressure, systolic 112 mm[Hg] Sujata Phillips respiratory rate E&M 16 /min Jesús [facility] Hospitalcrowartesia general hospitalfrancisco weight E&M 204 [lb_av] [facility] height E&M 60 [in_i] [facility] Body Mass Index (Ratio) 40.03 kg/m2 Cuauhtemoc Shipley blood pressure, diastolic 60 mm[Hg] Ki lleen Morgan blood pressure, systolic 112 mm[Hg] Kil bill Morgan oxygen saturation, oximetry 98 % [place] Morgan respiratory rate E&M 16 /min Andrea [...] blood pressure, diastolic 80 mm[Hg] Julien goins [place] blood pressure, systolic 116 mm[Hg] Demetria villegas [place] respiratory rate E&M 17 /min Luda Soy blood pressure, cuff size regular Julien goins [place] weight E&M 204 [lb_av] Luda [place] pulse rate 72 /min Luda Soy oxygen saturation, oximetry 98 % Luda [place] height E&M 60 [in_i] Luda Soy Body [...] E&M 204 [lb_av] height E&M 60 [in_i] [facility] Body [facility] Index (Ratio) 40.03 kg/m2 Donte Alejandra MD blood pressure, cuff size regular Ke rri Mally blood pressure, diastolic 72 mm[Hg] Ke rri Mally blood pressure, systolic 118 mm[Hg] Rosa Maria Bal oxygen saturation, oximetry 98 % Qi Bal respiratory rate E&M 18 /min Qi rangel pulse rate 70 /min Qi Flores [facility] weight E&M 205 [lb_av] Qi Flores er height E&M 60 [in_i] Qi Flores [facility] Body Mass Index (Ratio) 38.08 kg/m2 Mee Martini NP blood pressure, diastolic 70 mm[Hg] Julien isty Soy blood pressure, systolic 110 mm[Hg] Julieni nelly Soy oxygen saturation, oximetry 98 % Luda [place] respiratory rate E&M 17 /min Luda Soy pulse rate 70 /min Luda [place] weight E&M 195 [lb_av] Luda [place] blood pressure, cuff size regular Kr isty Soy height E&M 60 [in_i] Luda Olivier Body Mass Index (Ratio) 38.47 kg/m2 Onur Foley MD blood pressure, diastolic 68 mm[Hg] Francisco chaidez Morgan blood pressure, systolic 112 mm[Hg] Sue Riberaam oxygen saturation, oximetry 98 % [place] Morgan respiratory rate E&M 16 /min Andrea Morgan pulse rate 74 /min Hoxie Morgan weight E&M 197 [lb_av] Andrea Morgan height E&M 60 [in_i] Andrea [place] Body Mass Index (Ratio) 37.49 kg/m2 Donte Alejandra MD respiratory rate E&M 19 /min Marie Burnett blood pressure, diastolic 70 mm[Hg] Matheus hoover Burnett blood pressure, systolic 112 mm[Hg] Omalley evita Burnett pulse rate 75 /min Marie [place] oxygen saturation, oximetry 98 % [facility] blood pressure, cuff size regular Matheus hoover Burnett weight E&M 192 [lb_av] Marie Burnett height E&M 60 [in_i] [facility] Body Mass Index (Ratio) 38.66 kg/m2 [...] bennett MD height E&M 60 [in_i] Osmin Roajsrick lucia blood pressure, resting Yes Benigno [place] [...] LinkLogic 3.5-5.2 sodium, serum 141 mmol/L LinkLogic 139-662 0070/05 /15 urea nitrogen/creatinine ratio, serum 20 LinkLogic [...] mmol/L LinkLogic 3.5-5.2 sodium, serum 144 mmol/L [phone]/10 /24 urea nitrogen/creatinine ratio, serum 18 LinkLogic [...] Not Estab. platelet count 155 X10E3/UL LinkLogic 335-329 4937/10 /24 red blood cell distribution width 12.7 [...] 3.5-5.2 High sodium, serum 144 mmol/L LinkLogic 991-779 9783/01 /31 urea nitrogen/creatinine ratio, serum 17 LinkLogic [...] LinkLogic 3.5-5.2 sodium, serum 141 mmol/L LinkLogic 891-170 9194/11 /28 urea nitrogen/creatinine ratio, serum 18 LinkLogic [...] Not Estab. platelet count 203 X10E3/UL LinkLogic [phone]/11 /28 red blood cell distribution width 14.4 [...] LinkLogic 3.5-5.2 sodium, serum 140 mmol/L LinkLogic [phone]/10 /12 urea nitrogen/creatinine ratio, serum 17 LinkLogic [...] Not Estab. platelet count 219 X10E3/UL LinkLogic [phone]/06 /06 red blood cell distribution width 13.7 [...] 3.5-5.2 High sodium, serum 142 mmol/L LinkLogic 683-141 0044/06 /06 urea nitrogen/creatinine ratio, serum 22 LinkLogic [...] percentage of total cells, blood 0.2 % [facility] - nucleated red blood cells as percent of blood leukocytes 0.3 % [facility] - red blood cell (erythrocyte) count, per [...] - 3.9 mean platelet volume 13.8 (?) [facility] - platelet count 169.0 THOUSAND/UL LinkLogic 100.0 [...] percentage of total cells, blood 0.1 % [facility] - mean corpuscular volume, RBC 94.0 fL LinkLog 75.0 - 100.0 hematocrit, blood 43.7 % [facility] 35.0 - 55.0 hemoglobin, blood 13.6 g/dL LinkLog 11.5 - 16.5 erythrocyte count, whole blood 4.7 MILLION/UL LinkLog 3.5 - 5.5 trichomonas vaginalis, urine None seen LinkLog urine crystals, microscopic None seen [facility] casts, urine, microscopic None seen [facility] mucus on urinalysis None seen [facility] Not Estab. nucleated red blood cells as percent of blood leukocytes 0.0 % [facility] - red blood cell (erythrocyte) count, per high power field 0.0 10*3/UL [facility] - eosinophils as percent of blood leukocytes 3.0 % [facility] - neutrophils as percent of blood leukocytes 57.7 % [facility] - Absolute Neutrophils 4.1 CELLS/UL LinkLog 1.5 - 7.8 basophils as percent of blood leukocytes 0.7 % [facility] - Absolute Basophils 0.1 CELLS/UL LinkLogic 0.0 - 0.2 monocytes as percent of blood leukocytes 14.3 % [facility] - Absolute Monocytes 1.0 CELLS/UL LinkLog 0.2 - 1.0 High lymphocytes as percent of blood leukocytes 24.2 % [facility] - Absolute Lymphocytes 1.7 CELLS/UL LinkLogic 0.9 - 3.9 mean platelet volume 13.6 (?) [facility] - platelet count 145.0 THOUSAND/UL LinkLog [...] 10 days - Jesús Phillips VITAMIN D3 [id number] UNIT ORAL TABLET completed TAKE ONE TAB [...] Juno Foley MD smoking status Never smoker Trcaee juarez social history E&M S moking History: Caterina best has never smoked. Juno Foley MD smoking status Never smoker Juno Foley MD social history reviewed E&M revi ewed - no changes required Juno Foley MD social history E&M S moking History: P estephania has never smoked. Rachel Bautista NP smoking status Never smoker Rachel Breen in PLE[facility] social history reviewed E&M revi ewed - [...] Juno Foley MD smoking status Never smoker uJno Foley MD social history E&M S moking [...] MD smoking status Never smoker Amadeo Darby tobimid [facility] social history reviewed E&M revi ewed - no changes required Puma Benigno smoking status Never smoker Amadeo Darby [facility] social history reviewed E&M revi ewed - [...] required Juno Foley MD alcohol counseling yes Hoxie I ngram alcohol use, average drinks per day 4+ Hoxie Morgan alcohol use yes [place]ie Morgan smoking status Never smoker [place]ie Ingra m number of grandchildren Juno Foley [...] required Mk Alejandra MD alcohol counseling yes [place] I ngram alcohol use, average drinks per day 4+ Andrea Morgan alcohol use yes [place]ie Morgan smoking status Never smoker [place]ie Ingra m number of grandchildren Mk Lane [...] social history E&M S moking History: P estephanai has never smoked. Juno Foley MD social [...] required Mk Alejandra MD alcohol counseling yes [place] Razia nuno alcohol use, average drinks per day 4+ [place]ie Morgan alcohol use yes Andrea Morgan smoking status Never smoker Andrea Riberaa m alcohol counseling yes Qi howellfelder alcohol use, average drinks per day 4+ Qi Odenmarileeer alcohol use yes Qi Hernandezkhushi lder smoking status Never smoker Qi naqvi number of grandchildren Mk Drake Hu PLEATER HAND alcohol counseling yes Luda Bu sby alcohol use, average drinks per day 4+ Luda [place] alcohol use yes Luda Soy smoking status Never smoker Luda [place] number of grandchildren Juno Foley MD U nicole Foley MD social history reviewed E&M revi ewed - no changes required Juno Foley MD social history reviewed E&M revi ewed - no changes required Mk Alejandra MD smoking status Never smoker [facility] social history E&M S moking History: Caterina best has never smoked. [facility] social history reviewed E&M revi ewed - no changes required [facility] Leda alcohol counseling yes Qi Branch vadim alcohol use, average drinks per day 4+ Qi Ozer alcohol use yes Qi Hernandezannabelnathan lder social history reviewed E&M revi ewed - no changes required Mk Alejandra MD alcohol counseling yes Vidal Hu [place]LE[facility] [place] alcohol use, average drinks per day 4+ Vidal Hu [place]LE[place] alcohol use yes Ivdal Hu [place] smoking status Never smoker Vidal Hu [place]LE[facility] HAND number of grandchildren Mk [place] social history [...] counseling yes Osmin [place] number of grandchildren kM Solorio [facility] social history E&M Smoking Histo ry: P atlakeisha has never smoked. Osmin [facility] social history reviewed E&M revi ewed - [...] Angina (inactive) Management Plan continue current therapy Juon Foley MD HRA, CV Assess/Plan, Angina (inactive) [...] Payer name Policy type / Coverage type [facility] ID [place] MEDIC[place] Medicare [id number] ADVANCE DIRECTIVES Name Date DISCUSSED - NO DECISION MADE TREATMENT PLAN Date Name Performer [id number],B, Juno Foley MD [id number],C,seen on last echo Juno Foley MD [id number],C,last echo EF 60% Juno Foley MD [id number],C,p er PCP, she will start jardiance for renal protection l ast A1c 5.5% Juno Foley MD [id number],S, Juno Foley MD [id number],C, H er updated medication list for this problem includes: Crestor 20 Mg Tablet (Rosuvastatin) ..... Take 1 tablet once a day Juno Foley MD [id number],C, B P today: 120/79 P rior BP: 114/78 (08/16/2022) Labs Reviewed: C reat: 0.91 (03/10/2021) C hol: 211 (11/26/2018) HDL: 60 (11/26/2018) Her updated medication list for this problem includes: Sotalol 80 Mg Tablet (Sotalol) ..... Take 0.5 tablet by mouth twice a day Juno Foley MD [id number],B, Juno Foley MD [id number],B,I will repeat her echo in a month or so. She is on Entresto and Crestor. She also has a defibrillator Juno Foley MD [id number],S, Juno Foley MD [id number],B, Juno Foley MD [id number],S, Juno Foley MD [id number],S, Juno Foley MD [id number],S, A ppears stable. No chest pain. Continues on crestor. Her updated medication list for this problem includes: Sotalol 80 Mg Tablet (Sotalol) ..... Take 0.5 tablet once a day Juno Foley MD [id number],S, s he hasn't been using cpap at night Juno Foley MD [id number],S, I 'm going to cut her crestor to 20mg - I don't think she needs such a high dose since she has only mild CAD. Her updated medication list for this problem includes: Crestor 20 Mg Tablet (Rosuvastatin) ..... Take 1 tablet once a day Juno Foley MD [id number],S, N o recurrence K 4.4. 06/19/21 Juno Foley MD [id number],S, B P today: 101/59 P rior BP: 135/78 (11/19/2021) Her updated medication list for this problem includes: Sotalol 80 Mg Tablet (Sotalol) ..... Take 0.5 tablet once a day Juno Foley MD [id number],S, C lincally well compensated and is without shortness of breath. Continues on Entresto 49-51mg dose. Last EF was 60-65%. Juno Foley MD [id number],S, s /p BIV ICD, no recent events or shocks Juno Foley MD [id number],S, A 1C 5.5 Her updated medication list for this problem includes: Ozempic 0.25 Mg Or 0.5 Mg(2 Mg/1.5 Ml) Pen Injector (Semaglutide) ..... Once a week as directed Entresto 24-26 Mg Tablet (Sacubitril-valsartan) ..... 1 tablet by mouth twice a day Glipizide 5 Mg Tablet Extended Release 24hr (Glipizide) ..... Take 1 tablet by mouth once a day Rachel Bautista NP [id number],S, E F 60~65% on last echo. Rachel Bautista NP [id number],S, C lincally well compensated and is without shortness of breath. Continues on Entresto 49-51mg dose today. Rachel Bautista NP [id number],S, T he patient is using CPAP on a regular basis. The patient has been benefiting from therapy and should continue use. Rachel Bautista NP [id number],S, E pisode in September 2017 leading to shock by defibrillator. No recurrence. Rachel Bautista HALEY [id number],W, P rescribed Buspar by PCP. Recommend neurology evaluation. Rachel Bautista HALEY [id number],S, H er updated medication list for this problem includes: Tricor 145 Mg Tablet (Fenofibrate nanocrystallized) ..... 1 tablet once a day Crestor 40 Mg Tablet (Rosuvastatin) ..... 1 tablet once a day Rachel Bautista HALEY [id number],S, B P today: 135/78 P rior BP: 110/79 (10/05/2021) Her updated medication list for this problem includes: Sotalol 80 Mg Tablet (Sotalol) ..... Take 0.5 tablet once a day Rachel Jerel DE LEON [id number],C, T he patient is using CPAP on a regular basis. The patient has been benefiting from therapy and should continue use. Juno Foley MD [id number],C, N o recurrence K 4.4. 06/19/21 Juno Foley MD [id number],C, H er updated medication list for this problem includes: Tricor 145 Mg Tablet (Fenofibrate nanocrystallized) ..... 1 tablet once a day Crestor 40 Mg Tablet (Rosuvastatin) ..... 1 tablet once a day Juno Foley MD [id number],C, s /p BIV ICD, no recent events or shocks Juno Foley MD [id number],C, B P today: 110/79 P rior BP: 130/80 (06/22/2021) Labs Reviewed: C reat: 0.91 (03/10/2021) C hol: 211 (11/26/2018) HDL: 60 (11/26/2018) Her updated medication list for this problem includes: Sotalol 80 Mg Tablet (Sotalol) ..... Take 0.5 tablet once a day Juno Foley MD [id number],B, C lincally well compensated and is without shortness of breath. Continues on Entresto 49-51mg dose today. Juno Foley MD [id number],B, E F 60~65% on last echo. Juno Foley MD [id number],S, Rachel brian PLEATER HAND [id number],B, Rachel brian PLEATER HAND [id number],N,P rescribed Buspar by PCP. Feels better. Rachel Bautista NP [id number],B,resolved Abhinav Bautista NP [id number],S, Juno Foley MD [id number],B,on last echo. Juno Foley MD [id number],C,will repeat b mp. Juno Foley MD [id number],C,T his may be a vasovagal attack, but [...] medical condition(s) listed above for the patient. [facility]:No signs of decompensation This visit has been a part of the consistent, comprehensive, and ongoing management of the chronic medical condition(s) listed above for the patient. [facility]:This visi t has been a part of the consistent, comprehensive, and ongoing management of the chronic medical condition(s) listed above for the patient. Her updated medication list for this problem includes: Jardiance 10 Mg Tablet (Empagliflozin) Ozempic 0.25 Mg Or 0.5 Mg(2 Mg/1.5 Ml) Pen Injector (Semaglutide) ..... Once a week as directed [facility]:Cath 2017 I MPRESSION: 1 . Mild pulmonary hypertension. 2 . Severe LV dysfunction. 3 . Moderate nonobstructive CAD. 4 . No significant renal artery stenosis. This visit has been a part of the consistent, comprehensive, and ongoing management of the chronic medical condition(s) listed above for the patient. [facility]:This visi t has been [...] (Semaglutide) ..... Once a week as directed [facility] wo und check : l ast echo EF 60% [facility] Electrophysiology wo und check : C lincally well compensated and is without shortness of breath. Continues on Entresto 24-26 mg dose. Last EF was 60-65%. [facility] Electrophysiology wo und check : P rior BP: 112/80 (12/12/2023) Labs Reviewed: C reat: 0.91 (03/10/2021) C hol: 211 (11/26/2018) HDL: 60 (11/26/2018) LDL: 116 (11/26/2018) T (11/26/2018) Her updated medication list for this problem includes: Sotalol 80 Mg Tablet (Sotalol) ..... Take 0.5 tablet by mouth twice a day [facility] Electrophysiology: H er updated medication list for this problem includes: Ozempic 0.25 Mg Or 0.5 Mg(2 Mg/1.5 Ml) Pen Injector (Semaglutide) ..... Once a week as directed [facility] Electrophysiology:Pt denies any CP or SOB. [facility] Electrophysiology: B P today: 112/80 P rior BP: 118/72 (09/05/2023) Labs Reviewed: C reat: 0.91 (03/10/2021) C hol: 211 (11/26/2018) HDL: 60 (11/26/2018) LDL: 116 (11/26/2018) T (11/26/2018) Her updated medication list for this problem includes: Sotalol 80 Mg Tablet (Sotalol) ..... Take 0.5 tablet by mouth twice a day [facility] Electrophysiology:FRANKI, scheduled for gen change Barrett [...] Juno Foley MD Cardiology follow up UQ PLEATER HAND : E pisode in September 2017 leading to shock by defibrillator. No recurrence. Mk Aljeandra MD Cardiology follow up UQ PLEATER HAND :A1C 5.5 H er updated medication list [...] Mk Alejandra MD Cardiology follow up UQ PLEATER HAND :Entresto decreased last month. BP stable, pt feels much better Her updated medication list for this problem includes: Aspir-81 81 Mg Oral Tablet Delayed Release (Aspirin) ..... Take one tablet daily Sotalol 80mg Tablets (Sotalol hcl) ..... Take one half tablet per day Tania Gomez NP Cardiology follow up UQ PLEATER HAND :Device ok. R V 94%, LV94% N o AF/AT/VT. Onepisode of SVT 8 seconds Tania Gomez PLEATER HAND Cardiology follow up UQ PLEATER HAND : E pisode in September 2017 leading to shock by defibrillator. No recurrence. Tania Marin Patricia DE LEON Cardiology follow up UQ PLEATER HAND :K 4. 6 . Cr. 0.91 Tania Gomez PLEATER HAND Cardiology follow up UQ PLEATER HAND :A1C 5.5 H er updated medication list [...] Cardiology:Repeat gaston best was taken off of [facility] in the hospital Juno Foley MD [...] twice daily Juno Foley MD Cardiology:Continues on [facility] Juno Foley MD Cardiology:Increased Entresto to [...] Foley MD Cardiology:Advised t o remain on [facility] at this time and not to restrict [...] revision. Most recent device check: 05/05/2020 AT/AF [place]: 0% % Pacing: RV Pacing- 98% RA Pacing- 0% LV P acing- 98% Juno Foley MD Cardiology:Will swit ch from Lisinopril to Entresto. Will check a BMP in one month. Juno Foley MD Electrophysiology:no rmal device function w ell healing scar [facility] Cardiology follow up :normal device fucntion w ell healing scar [facility] Cardiology:normal de vice function w ell healing scar [facility] Electrophysiology:wi ll need lead replacement in 3 months after she had fully healed [facility] Electrophysiology: H er updated medication list for this problem includes: Lisinopril 5 Mg Oral Tablet (Lisinopril) ..... One tab. daily Aspir-81 81 Mg Oral Tablet Delayed Release (Aspirin) ..... Take one tablet daily Sotalol 80mg Tablets (Sotalol hcl) ..... Take 1 tablet by mouth twice daily [facility] Electrophysiology: H er updated medication list [...] lead replacement. Pt agrees with this plan [facility] Electrophysiology:Di scussed need for new LV lead replacement [facility] Electrophysiology: B P today: 126/88 P [...] tab. twice daily Orders: C omplete Echo (CPT-55381) C omplete Echo (CPT-14320) X -Ray, Chest - Routine (CPT-01651) X -Ray, Chest - Routine (CPT-60781) Mk Alejandra MD Electrophysiology: H er updated medication list for this problem includes: Lisinopril 5 Mg Oral Tablet (Lisinopril) ..... One tab. daily Aspir-81 81 Mg Oral Tablet Delayed Release (Aspirin) ..... Take one tablet daily Sotalol Hcl 80 Mg Oral Tablet (Sotalol hcl) ..... One tab. twice daily Orders: E KG (CPT-26930) C omplete Echo (CPT-40111) X -Ray, Chest - Routine (CPT-44383) Mk Alejandra MD Cardiology:PAtient v milanaalizes that [...] chedule Followup (*) 9 9214 MOD Complex (CPT-74894) V enous Doppler Bilateral LE (CPT-00371) Mk Alejandra MD Electrophysiology F ollow up : W ill check venous doppler BLE for DVT. W ill check CMP and d-dimer. S chedule CT chest with IV contrast IF d-dimer comes back positive. Hx of SOB and leg edema. Orders: C OMPREHENSIVE METABOLIC PANEL, W/EGFR (10000) D -DIMER, QUANTITATIVE (8659) L IPID PANEL (1380) V enous Doppler Bilateral LE (CPT-41396) S chedule Followup (*) 9 9214 MOD Complex (CPT-46807) Her updated medication list for this problem [...] PVCs/hr. Orders: C OMPREHENSIVE METABOLIC PANEL, W/EGFR (27974) D-DIMER, QUANTITATIVE (8659) L IPID PANEL (3330) S chedule Followup (*) 9 14 MOD Complex (CPT-25932) Her updated medication list for this problem includes: Lisinopril 2.5 Mg Oral Tablet (Lisinopril) ..... One tab. at night Aspir-81 81 Mg Oral Tablet Delayed Release (Aspirin) ..... Take one tablet daily Sotalol Hcl 80 Mg Oral Tablet (Sotalol hcl) ..... One tab. twice daily Mk Alejandra MD Electrophysiology Ho spital Follow up : O rders: U RINALYSIS, COMPLETE W/REFLEX TO CULTURE (6173) Her updated medication list for this problem [...] One tab. twice daily Orders: E KG (CPT-42578) 9 9214 MOD Complex (CPT-47991) C omplete Echo (CPT-33765) Mk Alejandra MD Electrophysiology Ho spital Follow up : O rders: 9 9214 MOD Complex (CPT-83936) C omplete Echo (CPT-72967) Her updated medication list for this problem [...] 04/21/17. D evice check 06/10/18 shows 89% TITLE INVESTIGATOR, 78% BiVP. No SVT. Her updated medication [...] Orders: A BLATION w/ Anesthesia (*) 9 9232 LTD. Complex (CPT-56967) Schedule Followup (*) Her updated medication list [...] 05/15/18 shows EF 35%. Orders: E KG (CPT-45959) 9 9225 MOD Complex (CPT-74008) S chedule Followup (*) Her updated medication [...] Fo llow up :Orders: 9213 MOD Complex (CPT-37379) S chedule Followup (*) Her updated medication [...] 04/21/17. D evice check 06/10/18 shows 89% TITLE INVESTIGATOR, 78% BiVP. No SVT. Her updated medication [...] anesthesia in the next few months at [facility]. P atient to take 5mg Coumadin daily for 7 days prior to procedure. Orders: 9213 MOD Complex (CPT-17464) S chedule Followup (*) A BLATION w/ [...] 04/21/17. D evice check 06/10/18 shows 89% TITLE INVESTIGATOR, 78% BiVP. No SVT. F ollowup with [...] tab. twice daily Juan [address] Electrophysiology [facility] Ariana Electrophysiology Ho spital Follow up :Normal [...] INR (8847) C OMPREHENSIVE METABOLIC PANEL W/EGFR (87449) U RINALYSIS, COMPLETE W/REFLEX TO CULTURE (3020) [...] Follow up : O rders: S NOMED-CT: [id number] Current Medications Documented ([facility]-[id number]) E KG (CPT-19500) G lobal No Charge (CPT-49015) F VC - 05494 (29894) F RC - 08170 (55757) D LCO - 78866 (88909) Her updated medication list for this problem [...] up : O rders: D O - 77553 (36341) [facility]) Her updated medication list for this problem includes: Spironolactone 25 Mg Oral Tablet (Spironolactone) ..... Half tablet daily Carvedilol 6.25 Mg Oral Tablet (Carvedilol) ..... One tab. twice daily Enalapril Maleate 20 Mg Oral Tablet (Enalapril maleate) ..... One tab. daily Saulius Kalvaitis MD Electrophysiology Ho spital Follow up :improved on amiodarone O rders: Harvey saleh No Charge (CPT-00233) S vesta Followup (*) Her updated medication list for this problem includes: Amiodarone Hcl 200 Mg Oral Tablet (Amiodarone hcl) ..... Take one pill a day Carvedilol 6.25 Mg Oral Tablet (Carvedilol) ..... One tab. twice daily Enalapril Maleate 20 Mg Oral Tablet (Enalapril maleate) ..... One tab. daily Mk Alejandra MD Electrophysiology - NP:s/p biv icd Vidal Hu PLEATER HAND Cardiology:Having surgery to rem ove part of [...] (Enalapril maleate) ..... One tab. daily [facility]23[facility]:Her updated medication list for this problem includes: Carvedilol 6.25 Mg Tabs (Carvedilol) ..... One tab. twice daily Enalapril Maleate 20 Mg Tabs (Enalapril maleate) ..... One tab. daily Magnesium Oxide 400 Mg Oral Tabs (Magnesium oxide) .... One tablet twice daily <--- Starting today Patient is planned to undergo cardiac catheterization. Will schedule EP study after her cath. [facility] EP faxed 01/23/17:Her updated medication list for this problem includes: Carvedilol 6.25 Mg Tabs (Carvedilol) ..... One tab. twice daily Enalapril Maleate 20 Mg Tabs (Enalapril maleate) ..... One tab. daily Magnesium Oxide 400 Mg Oral Tabs (Magnesium oxide) .... One tablet twice daily <--- Starting today [facility] Cardiology:[place] [address] ectopics 6.8% of total beats. Will schedule [...] Duplex Bilat eral Complete Echo DLCO - 82339 FRC - 64456 FVC - 69043 MAGNESIUM COMPREHENSIVE METABO LIC PANEL, W/EGFR THYROID PANEL WITH T SH, 3RD GENERATION Complete Echo DLCO - 47876 FRC - 93035 FVC - 85563 Complete Echo URINALYSIS, COMPLETE W/REFLEX TO CULTURE [...] Juno Foley MD INTERROGATION REMOTE </90 D STRAP CUTTING MACHINE OPERATOR REVIEW completed AICD Interrogation, Remote (Prof) Juno [...] Juno Foley MD INTERROGATION REMOTE </90 D STRAP CUTTING MACHINE OPERATOR REVIEW completed AICD Interrogation, Remote (Prof) Juno [...] jc MD completed FVC / MVV - 43595 Mk davila MD completed FRC - 94986 Mk jc MD completed SpO2 w/o 6min walk/titration Mk Alejandra MD completed DLCO - 72038 Mk jc MD completed EKG Mk jc [...] REMOTE </30 D TECH REVIEW completed SNOMED-CT: 36223735 Physical Exam, Performed: Pulse Exam of Foot Juno Foley MD completed SNOMED-CT: 372331007079419 Current Medications Documented Juno Foley MD completed EKG Mk jc MD completed EKG Juno Foley MD completed EKG Mk jc MD completed SNOMED-CT: 290251204582973 Current Medications Documented Mk Alejandra MD completed EKG Mk jc MD completed SNOMED-CT: 434693150811776 Current Medications Documented Mk Alejandra MD completed FVC / MVV - 19692 Mk davila MD completed FRC - 95905 Mk jc MD completed SpO2 - 13435 Mk jc MD completed DLCO - 83562 Mk jc MD completed ICM Interrogation, Remote (Prof) Juno Foley MD INTERROGATION EVAL REMOTE </30 D CV MNTR SYS completed ICM Interrogation, Remote (Tech) Juno Foley MD INTERROGATION EVAL REMOTE </30 D TECH REVIEW completed Schedule Followup Mk davila MD in 3 weeks completed EKG Mk jc MD completed SNOMED-CT: 595178461334758 Current Medications Documented Mk Alejandra MD completed ICM Interrogation, Remote (Prof) Juno Foley MD INTERROGATION EVAL REMOTE </30 D CV MNTR SYS completed ICM Interrogation, Remote (Tech) Juno Foley MD INTERROGATION EVAL REMOTE </30 D TECH REVIEW completed Schedule ICD Check Edin Cloverdale ck DO completed Schedule Followup Edin Glascoc k DO 6 months completed EKG Edin Lorenzanacock DO completed SNOMED-CT: 336005855373485 Current Medications Documented Edin Lorenzanacock DO completed ICM Interrogation, Remote (Prof) Juno Foley MD INTERROGATION EVAL REMOTE </30 D CV MNTR SYS completed ICM Interrogation, Remote (Tech) uJno Folye MD INTERROGATION EVAL REMOTE </30 D TECH REVIEW completed SNOMED-CT: 88062218 Physical Exam, Performed: Pulse Exam of Foot Juno Foley MD completed SNOMED-CT: 105729594393904 Current Medications Documented Juno Foley MD completed EKG Mk jc MD completed SNOMED-CT: 187939486836412 Current Medications Documented Mk Alejandra MD completed EKG Mk jc MD completed SNOMED-CT: 207739874571411 Current Medications Documented Mk Alejandra MD completed Schedule Followup Mk davila MD 3 months completed SNOMED-CT: 780543780151180 Current Medications Documented Mk Alejandra MD completed EKG Mk jc MD completed Loop Recorder Interrogation, Remote Juno Foley MD INTERROGATION EVALUATION REMOTE </30 D ILR SYS completed ICM Interrogation, Remote (Tech) Juno Foley MD INTERROGATION EVAL REMOTE </30 D TECH REVIEW completed EKG Mk jc MD completed SNOMED-CT: 445515199434418 Current Medications Documented Mk Alejandra MD completed Protime Juno Foley MD completed Protime Juno Foley MD completed SNOMED-CT: 97144804 Physical Exam, Performed: Pulse Exam of Foot Juno Foley MD completed SNOMED-CT: 998030765389406 Current Medications Documented Juno Foley MD completed EKG Mk jc MD completed SNOMED-CT: 167687418874797 Current Medications Documented Mk Alejandra MD completed SNOMED-CT: 03830664 Physical Exam, Performed: Pulse Exam of Foot Juno Foley MD completed SNOMED-CT: 068434782726995 Current Medications Documented Juno Foley MD completed Stress EKG Emmy Pham MD completed Regadenoson, 4 units Juno Foley MD completed Cardiolite, 2 units Juno Foley MD completed SPECT Images Emmy Pham MD complet ed EKG Juno Foley MD completed SNOMED-CT: 762155426816251 Current Medications Documented Juno Foley MD completed
--- OUTSIDE RECORDS SUMMARY | 2025-02-16 12:10 | XMS_ITS | Clinical Summary ---
Author Organization [facility] Address [address] [place] [address] Care Team Providers Care Account Auditor Name Role Phone Duglas Collado MD Primary Care Provider Source Comments [facility],non-[facility] Affiliates and Associated Physician Practices is amultiple site organization consisting of ambulatory clinics and hospital sitesin [place], [place], [place] and [place]. This disclosure is being madepursuant to the Care Everywhere program and may not contain all information available regarding this patient. Last updated 18.[facility] Allergies Active Allergy Reactions Criticality Noted Date Comments Codeine Nausea and/or Vomiting,Vomiting Medium 05/27 Meperidine Nausea and/or Vomiting,Vomiting Medium 05/27 Medications * Be aware that medications may not be up to date on this document. Alwaysverify current medications with the patient. loratadine (CLARITIN) 10 MG tablet Take 10 mg by mouth once daily 9 Active vitamin D, ergocalciferol, (DRISDOL) 1.25 MG (08379 UT) capsule Take 50,000 Units by mouth every 7 days 0 9 Active venlafaxine (EFFEXOR) 75 MG tablet Take 75 mg by mouth once daily Active fenofibrate (TRICOR) 145 MG tablet Take 145 mg by mouth once daily 8 Active glipiZIDE (GLUCOTROL) 5 MG tablet Take 5 mg by mouth 2 times daily Active lisinopril (PRINIVIL;ZESTR IL) 5 MG tablet Take 5 mg by mouth once daily Active sotalol (BETAPACE) 80 MG tablet Take 80 mg by mouth 2 times daily 9 Active rosuvastatin (CRESTOR) 40 MG tablet Take 40 mg by mouth once daily Active montelukast (SINGULAIR) 10 MG tablet Take 10 mg by mouth once daily Active MAGNESIUM-OXIDE 400 (241.3 Mg) MG tablet Take 400 mg by mouth 2 times daily 9 Active levothyroxine (SYNTHROID) 50 MCG tablet Take [...] of Binge Drinking Not on file 11/2019 Comments Unknown Sex and Gender Information Value Date Recorded Sex Assigned at Not on file Legal Sex Female 7:00 PM COCOA BEAN ROASTER HELPER Gender Identity Not on file Sexual Orientation Not on file Last Filed Vital Signs Vital Sign Reading Time Taken Comments Blood Pressure 110/68 10/28/2019 2:58 PM COCOA BEAN ROASTER HELPER Pulse 77 10/28/2019 2:58 PM COCOA BEAN ROASTER HELPER Temperature 36.7 C (98.1 F) 10/28/2019 2:58 PM COCOA BEAN ROASTER HELPER Respiratory Rate 18 10/28/2019 2:58 PM COCOA BEAN ROASTER HELPER Oxygen Saturation 96% 10/28/2019 2:58 PM COCOA BEAN ROASTER HELPER Inhaled Oxygen Concentration - - Weight 87.2 kg (192 lb 4.8 oz) 10/28/2019 2:58 P M COCOA BEAN ROASTER HELPER Height 165.1 cm (5' 5 ) 10/28/2019 2:58 PM COCOA BEAN ROASTER HELPER Body Mass Index 32 10/28/2019 2:58 PM COCOA BEAN ROASTER HELPER Plan of Treatment Health Maintenance Due Date [...] CREATININE 12/20/2020 12/20/2019 COVID-19 VACCINE ( - season) 2024 DEPRESSION SCREENING 10/27/2024 DIABETES - [...] (EXTERNAL) Blood BLOOD SPECIMEN / Unknown 12/20/2019 us Historical Provider LAB - CHEMISTRY ORDERABLE S Edited Result - Final from Last 3 Months or Most Recently Relevant to Health Maintenance [place] [address] [employer] MEDICARE SELF PAY NO INSURANCE Member Subscriber Plan / Payer (Ef fective for All Dates) Name:Katheryn Phillips Member ID:Not on file Relation to Subscriber:Not on file Name:KATHERYN PHILLIPS Subscriber ID:Not on file (Home) Address: [address] [place] [address] Payer ID:Not on file Group ID:Not on file Type:Self Pay Address: [place], [place] * Guarantor: KATHERYN PHILLIPS Account Type Relation to Patient Date of Phone Billing Address Personal/Family [address] [place] [address] MEDICARE [employer] Member Subscriber Plan / Payer (Ef fective for All Dates) Name:Katheryn Phillips Member ID:Not on file Relation to Subscriber:Self Name:Katheryn Phillips Subscriber ID:Not on file Payer ID:[id number] (NAIC) Group ID:[id number] Type:Commercial Address: [address] * Guarantor: KATHERYN PHILLIPS Account Type Relation to Patient Date of Phone Billing Address Personal/Family [address] [address] MEDICARE [employer] Member Subscriber Plan / Payer (Ef fective for All Dates) Name:Katheryn Phillips Member ID:Not on file Relation to Subscriber:Self Name:Katheryn Phillips Subscriber ID:Not on file Payer ID:[id number] (NAIC) Group ID:[id number] Type:Commercial Address: [address] * Guarantor: KATHERYN PHILLIPS Account Type Relation to Patient Date of Phone Billing Address Personal/Family [address] [place] [address] [place] [address] Care Teams Account Auditor Relationship Specialty Start Date End Date Duglas Collado MD [address] [address] PCP - General Internal Medicine 07/16/19
== END 2025-02-16 10:28 | disposition home or self-care (01) ==
PROVIDERS: PCP Internal Medicine; Visit Provider Nurse Practitioner
DX: K57.92 Diverticulitis of intestine, part unspecified, without perforation or abscess without bleeding (principal)
CPT/HCPCS: 36415; 85027; 85652; 86140

== ENCOUNTER 2025-02-25 06:44 | Outpatient (CLI) | payer MEDICARE, SELFPAY ==
--- NOTE | ~2025-02-25 | CT_ITS ---
EXAMINATION: CT abdomen pelvis w con DATE: 02/25/2025 07:13 INDICATION: Left lower quadrant abdominal pain. Recent diverticulitis. TECHNIQUE: Computed tomography (CT) of the abdomen and pelvis was performed with 100 mL Omnipaque-350 intravenous contrast. Automated exposure control and iterative reconstruction technique were employe d. The dose-length product was 304.03 mGy-cm. COMPARISON: 01/31/2025 FINDINGS: Calcified nodule at the bilateral lung bases consistent with old granulomatous disease. Heart size is normal. Unchanged small pericardial effusion. Left breast implant. Partially visualized relatively h omogeneous density with less well-defined margins at the inferior right breast, potentially a hematom a/seroma versus ruptured or partially collapsed right breast implant. Cardiac pacemaker leads, one te rminating at the right atrium, 2 in the right ventricle and one in a coronary vein overlying the late ral wall of the left ventricle, better appreciated on the tennis net maker topogram. Adjustable lap scopic emmanuelle ng procedure about the proximal stomach in expected position. Liver, gallbladder, spleen, pancreas, bilateral adrenal glands and right kidney are normal. Small reg ion of cortical scarring at the lower pole of the left kidney. Prior bowel surgery with anastomotic s uture lines at the distal sigmoid colon and along a loop of small bowel in the anterior pelvis. No raudel wel obstruction. Interval resolution of the wall thickening and inflammatory stranding at the sigmoid colon proximal to the anastomosis consistent with resolving diverticulitis. The appendix is not visu alized. No pericecal inflammatory change to suggest acute appendicitis. Bladder is normal. The uterus is not identified and has likely been surgically resected. No free intraperitoneal gas or fluid. No pathologically enlarged abdominal or pelvic lymphadenopathy. 2.4 x 1.5 cm cystic fluid collection wit hin the midline anterior abdominal wall where there prior postoperative changes suggesting a residual small seroma. Severe lumbar spondylosis. IMPRESSION: 1. Interval resolution of prior diverticulitis. No acute intra-abdominal/pelvic process. 2. Unchanged small pericardial effusion. 3. Incompletely visualized density at the inferior right breast which could represent a hematoma vers us ruptured or partially collapsed breast implant. Correlate for history of recent biopsy or surgery and with mammography as clinically indicated. Reviewed, dictated and finalized at location A. IMPRESSION: 1. Interval resolution of prior diverticulitis. No acute intra-abdominal/pelvic process. 2. Unchanged small pericardial effusion. 3. Incompletely visualized density at the inferior right breast which could rep resent a hematoma versus ruptured or partially collapsed breast implant. Correl ate for history of recent biopsy or surgery and with mammography as clinically indicated.
--- OUTSIDE RECORDS SUMMARY | 2025-02-25 06:48 | XMS_ITS | Clinical Summary ---
Author Organization [facility] al Address [address] [place] [address] Care Team Providers Care Projection Welding Machine Operator Name Role Phone Dante Collado MD Primary Care Provide r Mk Alejandra MD Unavailable [phone] Allergies Active Allergy Reactions Criticality Noted Date [...] (01/17/2021): Added automatically from request for surgery [id number] Troponin level elevated 03/29/2020 Defibrillator discharge 03/28/2020 [...] on file Legal Sex Female 7:03 PM CARVER HAND Gender Identity Not on file Sexual Orientation Not on file Obstetrics History Last Filed Vital Signs Vital Sign Reading Time Taken Comments Blood Pressure 120/81 09/05/2022 8:37 AM CARVER HAND Pulse 66 09/05/2022 8:37 AM CARVER HAND Temperature 36.4 C (97.5 F) 11/18/2021 2:14 PM CARVER HAND Respiratory Rate 25 11/18/2021 6:20 PM CARVER HAND Oxygen Saturation 100% 11/18/2021 6:20 PM CARVER HAND Inhaled Oxygen Concentration - - Weight 66 kg (145 lb 6.4 oz) 09/05/2022 8:37 AM CARVER HAND Height 154.9 cm (5' 1 ) 09/05/2022 8:37 AM CARVER HAND Body Mass Index 27.47 09/05/2022 8:37 AM CARVER HAND Plan of Treatment Health Maintenance Due Date [...] 09/17/2022, 08/28 Medical Devices Implanted Type Area Admin Dir Device Identifier Shelf Expiration Date Model / Serial / Lot [employer] [id number] Solia S 45cm Bipolar Active Fixation Lead Pacing Steroid Eluting - [id number] - [id number] Implanted:Qty: 1 on 09/22/2019 by Mk Alejandra MD at [facility] Lead [employer] [id number] 06/26/2021 [id number] / [id number] / Lead Icd Sentus Promri Left Ventricular Otw Quadripolar L-85/49 - [id number] - [id number] Implanted:Qty: 1 on 04/09/2018 by Mk Alejandra MD at [facility] [employer] 12/25/2019 [id number] / [id number] / [employer] [id number] Angio-Seal Vip Bondek-Plus 8fr .038in 70cm Hemostatic Latex Free - [id number] Implanted:Qty: 1 on 10/13/2018 by Mk Alejandra MD at [facility] [employer] 05/26/2019 [id number] / / [id number] Procedures Procedure Name Priority Date/Time Associated Diagnosis Comments EGFR STAT 11/18/2021 3:26 PM CARVER HAND LIPID PANEL Timed 03/28/2020 1:05 PM CDT COLONOSCOPY REPORT 07/01/2013 from Last 3 Months or Most Recently Relevant to Health Maintenance Results * eGFR (11/18/2021 3:26 PM CARVER HAND) eGFR 73 mL/min/1. 73 m2 MAT FERREIRA [...] last reviewed 2021. Blood 11/18/2021 3:26 PM CARVER HAND 11/18/2021 3:33 PM CARVER HAND us Felisha Porter MD LAB BLOOD ORDERABLES Final Resu lt MAT FERREIRA [id number] [address] Department [place] [address] * Lipid panel (03/28/2020 1:05 PM CDT) [...] LAB BLOOD ORDERABLES [place] [address] [address] Department of Laboratories [place] [id number] * COLONOSCOPY REPORT (07/01/2013) Anatomical Region Laterality Modality Other Narrative 07/01/2013 Ordered by an unspecified provider. Historical Provider GI PROCEDURE ORDERABLES F inal Result from Last 3 Months or Most Recently Relevant to Health Maintenance Insurance MEDICARE [facility] Address: [address] [address] [employer] SENIOR SUPPLEMENT MEDICARE [facility] MEDICARE [employer] Advance Directives For more information, please contact: [phone] * Full Code (Latest Code Status on [...] 11:02 PM 10/01/2017 2:07 PM Care Teams Projection Welding Machine Operator Relationship Specialty Start Date End Date Dante Collado MD [address] [address] PCP - General 09/10/17 [place] [address] [address] Consulting Physician Cardiology 10/01/17
--- OUTSIDE RECORDS SUMMARY | 2025-02-25 06:48 | XMS_ITS | Referral Summary ---
Author Organization [facility] al Address [address] [place] [address] Care Team Providers Care Furnace Unloader Name Role Phone Dante Collado MD Primary Care Provide r Mk Alejandra MD Unavailable [phone] Allergies Active Allergy Reactions Criticality Noted Date [...] (01/17/2021): Added automatically from request for surgery [id number] Troponin level elevated 03/29/2020 Defibrillator discharge 03/28/2020 [...] on file Legal Sex Female 7:03 PM BOILER WATER TESTER Gender Identity Not on file Sexual Orientation Not on file Last Filed Vital Signs Vital Sign Reading Time Taken Comments Blood Pressure 120/81 09/05/2022 8:37 AM BOILER WATER TESTER Pulse 66 09/05/2022 8:37 AM BOILER WATER TESTER Temperature 36.4 C (97.5 F) 11/18/2021 2:14 PM BOILER WATER TESTER Respiratory Rate 25 11/18/2021 6:20 PM BOILER WATER TESTER Oxygen Saturation 100% 11/18/2021 6:20 PM BOILER WATER TESTER Inhaled Oxygen Concentration - - Weight 66 kg (145 lb 6.4 oz) 09/05/2022 8:37 AM BOILER WATER TESTER Height 154.9 cm (5' 1 ) 09/05/2022 8:37 AM BOILER WATER TESTER Body Mass Index 27.47 09/05/2022 8:37 AM BOILER WATER TESTER Plan of Treatment Not on file Medical Devices Implanted Type Area Remote Sensing Technologist Device Identifier Shelf Expiration Date Model / Serial / Lot [employer] [id number] Solia S 45cm Bipolar Active Fixation Lead Pacing Steroid Eluting - [id number] - [id number] Implanted:Qty: 1 on 09/22/2019 by Mk Alejandra MD at [facility] Lead [employer] [id number] 06/26/2021 [id number] / [id number] / Lead Icd Sentus Promri Left Ventricular Otw Quadripolar L-85/49 - [id number] - [id number] Implanted:Qty: 1 on 04/09/2018 by Mk Alejandra MD at [facility] [employer] 12/25/2019 [id number] / [id number] / [employer] [id number] Angio-Seal Vip Bondek-Plus 8fr .038in 70cm Hemostatic Latex Free - [id number] Implanted:Qty: 1 on 10/13/2018 by Mk Alejandra MD at [facility] [employer] 05/26/2019 [id number] / / [id number] Procedures Procedure Name Priority Date/Time Associated Diagnosis Comments EGFR STAT 11/18/2021 3:26 PM BOILER WATER TESTER LIPID PANEL Timed 03/28/2020 1:05 PM CDT COLONOSCOPY REPORT 07/01/2013 from Last 3 Months or Most Recently Relevant to Health Maintenance Results * eGFR (11/18/2021 3:26 PM BOILER WATER TESTER) eGFR 73 mL/min/1. 73 m2 MAT FERREIRA [...] last reviewed 2021. Blood 11/18/2021 3:26 PM BOILER WATER TESTER 11/18/2021 3:33 PM BOILER WATER TESTER us Felisha Porter MD LAB BLOOD ORDERABLES Final Resu lt MAT FERREIRA [address] [place] [address] * Lipid panel (03/28/2020 1:05 [...] LAB BLOOD ORDERABLES [place] [id number] [address] Department of Laboratories [place] [id number] * COLONOSCOPY REPORT (07/01/2013) Anatomical Region Laterality Modality Other Narrative 07/01/2013 Ordered by an unspecified provider. [facility] Provider GI PROCEDURE ORDERABLES F inal Result from Last 3 Months or Most Recently Relevant to Health Maintenance Insurance MEDICARE AETNA SENIOR SUPPLEMENT MEDICARE AETNA SENIOR SUPPLEMENT MEDICARE AETNA Advance Directives For more information, please contact: [phone] * Full Code (Latest Code Status on [...] 11:02 PM 10/01/2017 2:07 PM Care Teams Furnace Unloader Relationship Specialty Start Date End Date Dante Collado MD [address] [facility] [address] [place] [address] PCP - General 09/10/17 [place] [id number] [place] [address] Consulting Physician Cardiology 10/01/17
--- OUTSIDE RECORDS SUMMARY | 2025-02-25 06:48 | XMS_ITS | Continuity of Care Document ---
Author Organization [facility] Address [address] [place] [address] [address] [place] [address] Phone Care Team Providers Care Cut Out Operator Name Role Phone Jessica Reece Unavailable Unavailable Procedures Procedure Date Office/outpatient Visit, Est Advance Directives Directive Yes / No Effective Date File Name No Information Encounters Encounter Description Practice Location Reason(s) For Visit Diagnoses Date Provider Providers Copied on Encounter Office/outpat ient Visit, Est [facility], [address] [place] [address] [address], [place], [place], [id number], [place] tel:[phone] [facility] No Information [phone] Shanell Lopez. [address] [facility] , [address], [place], [address], [place]. tel:[phone] Family History Family Member Type Diagnosis Age [...]
--- OUTSIDE RECORDS SUMMARY | 2025-02-25 06:48 | XMS_ITS | Clinical Summary ---
Author Organization [facility] Address [address] [facility] [address] [place] [address] Phone Care Team Providers Care Director Of Grants Name Role Phone Duglas Collado MD Primary [...] Comments Blood Pressure 104/71 2024 2:17 PM PATIENT FLOW COORDINATOR Pulse 91 2024 2:17 PM PATIENT FLOW COORDINATOR Temperature 36.9 C (98.4 F) 2024 2:17 PM PATIENT FLOW COORDINATOR Respiratory Rate 15 2024 2:17 PM PATIENT FLOW COORDINATOR Oxygen Saturation 95% 2024 2:17 PM PATIENT FLOW COORDINATOR Inhaled Oxygen Concentration - - Weight 69.3 kg (152 lb 12.8 oz) 2024 2:17 PM PATIENT FLOW COORDINATOR Height 152.4 cm (5') 04/25/2022 11:38 AM CDT Body Mass Index 29.84 04/25/2022 11:38 AM CDT Plan of Treatment Upcoming Encounters Date Type Department Care Team (Late st Contact Info) Description 04/12/2025 11:00 AM CDT Office Visit [facility] [address] [facility] [address] [place] [address] Brandon Willis MD [address] [facility] [address] [place] [address] Health Maintenance Due Date Last [...] Additional history exists INFLUENZA VACCINE (#1) 2024 , 08/14/2021, 08/09/2019, Additional history exists DIABETES HBA1C Q 6 MONTHS 02/02/20252023, 03/16/2024, 09/02/2023, Additional history exists BREAST CANCER SCREENING 03/16/2025 03/16/20 24, 02/13/2024, 02/13/2024, Additional history exists RSV VACCINE (60+ or ) (1 - 1-dose 75+ series) 2025 OSTEOPOROSIS SCREENING 11/28/2028 11/28/2023, 2020 COLORECTAL SCREENING 11/07/2032 11/07/2022, 09/05/20 13 Colorectal Cancer Screening 11/07/2032 PNEUMOCOCCAL VACCINE 50+ YEARS Completed 09/17/2022 , 09/19/2019 Medical Devices Implanted Type Area Electronic Plotting System Operator Device Identifier Shelf Expiration Date Model / Serial / Lot Lap Band,Bilat Knee Replacement Implanted:(Quantit y not on file) Explanted:(Quantit y not on file) Insurance MEDICARE PART A AND B [employer] MEDICARE SUPP AESSI MEDICARE PART A AND B AETNA MEDICARE SUPP AESSI Advance Directives For more information, please contact: [phone] * Full Code (Latest Code Status on File) Date Activated Date Inactivated Comments 07/05/2014 8:17 AM 07/05/2014 11:32 AM * Full Code Date Activated Date Inactivated Comments 07/05/2014 6:54 AM 07/05/2014 8:17 AM Care Teams Director Of Grants Relationship Specialty Start Date End Date Duglas Collado MD PCP - General Internal Medicine 03/27/22
--- OUTSIDE RECORDS SUMMARY | 2025-02-25 06:49 | XMS_ITS | CONTINUITY OF CARE DOCUMENT ---
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 Nausea/Vomiting active Vidal Hu BOILER OR ENGINE OPERATOR Dizziness active Juno Foley MD Ventricular [...] In-person encounter Office Visit Juno Foley MD [facility] 4 - 4 In-person encounter Office Visit Juno Foley MD [facility] Chest pain-type to be determined 8 - 3 In-person encounter Office Visit Mk Alejandra MD [facility] Shortness of breathDiabetes Mellitus, Type II, controlled w/vascular complications 3 - 3 In-person encounter Office Visit Juno Foley MD [facility] 8 - 8 In-person encounter Office Visit Juno Foley MD [facility] 9 - 2 In-person encounter Office Visit Mk Alejandra MD [facility] 5 - 5 In-person encounter Office Visit Mk Alejandra MD [facility] 1 - 1 In-person encounter Office Visit Mk Alejandra MD [facility] 6 - 6 In-person encounter Office Visit Mk Alejandra MD [facility] 0 - 0 In-person encounter Office Visit Juno Foley MD [facility] 5 - 5 In-person encounter Office Visit Juno Foley MD [facility] 1 - 1 In-person encounter Office Visit Juno Foley MD [facility] 4 - 4 In-person encounter Office Visit Juno Foley MD [facility] Panic attack?CAD, nonobstructive disease on cath 2017 4 - 6 In-person encounter Office Visit Juno Foley MD [facility] 0 - 0 In-person encounter Office Visit Juno Foley MD [facility] 7 - 7 In-person encounter Office Visit Juno Foley MD [facility] Panic attack? 0 - 2 In-person encounter Office Visit Juno Foley MD [facility] 4 - 4 In-person encounter Office Visit Juno Foley MD [facility] 4 - 7 In-person encounter Office Visit Juno Foley MD [facility] 2 - 2 In-person encounter Office Visit Juno Foley MD [facility] 6 - 6 In-person encounter Office Visit Juno Foley MD [facility] 4 - 4 In-person encounter Office Visit Juno Foley MD [facility] 6 - 6 In-person encounter Office Visit Mk Alejandra MD [facility] S/P Medtronic (MRI Safe) REVEAL/LinQ 3 - 3 In-person encounter Office Visit Mk Alejandra MD [facility] 6 - 6 In-person encounter Office Visit Mk Alejandra MD [facility] 5 - 6 In-person encounter Office Visit Mk Alejandra MD [facility] 3 - 3 In-person encounter Office Visit Mk Alejandra MD [facility] 4 - 5 In-person encounter Office Visit Mk Alejandra MD [facility] 8 - 3 In-person encounter Office Visit Mk Alejandra MD [facility] 1 - 1 In-person encounter Office Visit Mk Alejandra MD [facility] 0 - 0 In-person encounter Office Visit Juno Foley MD [facility] SyncopeDiabetes mellitus type II 8 - 4 In-person encounter Office Visit Juno Foley MD [facility] 0 - 0 In-person encounter Office Visit Mk Alejandra MD [facility] Leg edema, bilateral 6 - 2 In-person encounter Office Visit Mk Alejandra MD [facility] Urinary tract infection 4 - 4 In-person encounter Office Visit Mk Alejandra MD [facility] 9 - 9 In-person encounter Office Visit Mk Alejandra MD [facility] 7 - 7 In-person encounter Office Visit Mk Alejandra MD [facility] 0 - 0 In-person encounter Office Visit Juno Foley MD [facility] 0 - 0 In-person encounter Office Visit Mk Alejandra MD [facility] S/P BiV ICD Biotronik//Genchange BiV ICD Biotronik 12/22/23 ( MRI Safe) 6 - 6 In-person encounter Office Visit Emmy Pham MD [facility] 0 - 5 In-person encounter Office Visit Mk Alejandra MD [facility] Examination, preoperative cardiovascular 1 - 4 In-person encounter Office Visit Mk Alejandra MD [facility] 1 - 1 In-person encounter Office Visit Juno Foley MD [facility] 4 - 4 In-person encounter Office Visit Mk Alejandra MD [facility] Ventricular tachycardia, sustained 1 - 1 In-person encounter Office Visit Juno Foley MD [facility] 0 - 1 In-person encounter Office Visit Juno Foley MD [facility] Dizziness 6 - 6 In-person encounter Office Visit Mk Alejandra MD [facility] 9 - 9 In-person encounter Office Visit Mk Alejandra MD [facility] 2 - 7 In-person encounter Office Visit Mk Alejandra MD [facility] 4 - 6 In-person encounter Office Visit Edin Suresh DO [facility] 8 - 8 In-person encounter Office Visit Juno Foley MD [facility] 2 - 2 In-person encounter Office Visit Mk Alejandra MD [facility] 1 - 6 In-person encounter Office Visit Mk Alejandra MD [facility] 5 - 5 In-person encounter Office Visit Mk Alejandra MD [facility] FatigueNausea/Vomiting 2 - 2 In-person encounter Office Visit Mk Alejandra MD [facility] 7 - 7 In-person encounter Office Visit Juno Foley MD [facility] 4 - 7 In-person encounter Office Visit Mk Alejandra MD [facility] Other symptoms involving cardiovascular systemObesityLBBBMitral regurgitationCHFVentricular tachycardia, nonsustained 3 - 3 In-person encounter Office Visit Juno Foley MD [facility] CardiomyopathyPVC's 0 - 0 In-person encounter Office Visit Juno Foley MD [facility] HyperlipidemiaHTN essentialDiverticulitis, colonHypothyroidismPreoperative cardiovascular examinationSleep apnea--on [...] lder weight E&M 145 [lb_av] Qi Flores [facility] height E&M 60 [in_i] Qi Flores [facility] Body Mass Index (Ratio) 28.90 kg/m2 Onur Foley MD blood pressure, diastolic 89 mm[Hg] Yasmin shirley [place] blood pressure, systolic 127 mm[Hg] [facility], oximetry 95 % [facility] pulse rate 103 /min [facility] respiratory rate E&M 12 /min [facility] weight E&M 148 [lb_av] [facility] height E&M 60 [in_i] [facility] blood pressure, cuff size regular An [facility]loeCamer[facility] blood pressure, diastolic -1 mm[Hg] Cailin nkLog blood pressure, systolic 129 mm[Hg] Snehal kLog Body Mass Index (Ratio) 29.49 kg/m2 Barrett Bradleyzai blood pressure, diastolic 79 mm[Hg] Jessica yla [facility] blood pressure, systolic 129 mm[Hg] Radha la [facility] blood pressure, cuff size regular Jessica yla [facility] pulse rate 82 /min Tania [facility] oxygen saturation, oximetry 96 % Tania [facility] weight E&M 151 [lb_av] Tania [facility] height E&M 60 [in_i] Tania [facility] Body Mass Index (Ratio) 29.88 kg/m2 Onur Foley MD blood pressure, cuff size regular Matheus Diana blood pressure, diastolic 82 mm[Hg] Ta elvis Diana blood pressure, systolic 132 mm[Hg] Tab ithabby Diana oxygen saturation, oximetry 97 % Jordynabby Diana pulse rate 75 /min Jordyn [place]on weight E&M 153 [lb_av] Jordyn Lindon respiratory rate E&M 12 /min Jordyn Lindon height E&M 60 [in_i] Jordyn Lindon Body Mass Index (Ratio) 29.53 kg/m2 Onur Foley MD pulse rate 74 /min [facility] blood pressure, cuff size large Matheus leal Lindon blood pressure, diastolic 78 mm[Hg] [facility], systolic 124 mm[Hg] [facility] oxygen saturation, oximetry 96 % [facility] respiratory rate E&M 12 /min [facility] weight E&M 151.2 [lb_av] [facility] height E&M 60 [in_i] Jordyn Lindon Body Mass Index (Ratio) 29.49 kg/m2 [facility] blood pressure, cuff size regular Ja [facility] blood pressure, diastolic 76 mm[Hg] [facility] blood pressure, systolic 128 mm[Hg] [facility] pulse rate 62 /min [facility] oxygen saturation, oximetry 99 % [facility] respiratory rate E&M 14 /min [facility] weight E&M 151 [lb_av] [facility] height E&M 60 [in_i] [facility] Body Mass Index (Ratio) 29.88 kg/m2 Barrett rae blood pressure, cuff size regular Ke rri [facility] blood pressure, diastolic 80 mm[Hg] [...] blood pressure, cuff size regular Kr isty Thaxton blood pressure, diastolic 90 mm[Hg] Kr isty Thaxton blood pressure, systolic 120 mm[Hg] Kri sty Thaxton pulse rate 78 /min Luda Thaxton oxygen saturation, oximetry 97 % Luda respiratory [...] pressure, diastolic, left arm 6 mm[ Hg] [facility], systolic, left arm 100 mm [Hg] blood pressure, diastolic, right arm 60 m m[Hg] blood pressure, systolic, right arm 100 m m[Hg] blood pressure, diastolic 60 mm[Hg] Ki blood pressure, systolic 100 mm[Hg] Sue khan [place] oxygen saturation, oximetry 97 % Omrgan respiratory rate E&M 16 /min pulse rate 61 /min [place] Morgan weight E&M 214 [lb_av] Morgan height E&M 60 [in_i] [facility] Body Mass Index (Ratio) 41.59 kg/m2 Onur [...] er height E&M 60 [in_i] Qi Gruenenfe [facility] Body Mass Index (Ratio) 40.62 kg/m2 Donte Alejandra MD blood pressure, cuff size large Ke rri Akshatneannabelharris health [facility] blood pressure, diastolic 70 mm[Hg] Ke rri Gruenenfelder blood pressure, systolic 130 mm[Hg] Rosa Maria Landaverdeuenenfelder oxygen saturation, oximetry 97 % Qi Odenneannabelelder respiratory rate E&M 20 /min Qi Harvey gayenenfelder pulse rate 70 /min Qi Odenneannabele [facility] weight E&M 208 [lb_av] Qi Toroe [facility] height E&M 60 [in_i] Qi Munae er [...] Body Mass Index (Ratio) 40.03 kg/m2 Willy [facility] blood pressure, cuff size large [...] pressure, systolic 120 mm[Hg] Rosa Maria ri [facility]aker[facility] memorial hospitaler oxygen saturation, oximetry 98 % Qi Toroharris [facility] respiratory rate E&M 20 /min Qi Gabriel frankykamharris health [facility] pulse rate 70 /min Qi Flores er weight E&M 202 [lb_av] Qi Flores er height E&M 60 [in_i] Qi Flores er Body Mass Index (Ratio) 39.84 kg/m2 Chivo Pham MD pulse rate 68 /min [facility] oxygen saturation, oximetry 97 % Jesús [facility] Hospit[facility] blood pressure, diastolic 70 mm[Hg] Isael Phillips blood pressure, systolic 112 mm[Hg] Sujata Phillips respiratory rate E&M 16 /min Jesús [facility] Hospitalcrowcarlsbad medical centerfrancisco weight E&M 204 [lb_av] [facility] height E&M 60 [in_i] [facility] Body Mass Index (Ratio) 40.03 kg/m2 Cuauhtemoc Shipley blood pressure, diastolic 60 mm[Hg] Ki lleen Morgan blood pressure, systolic 112 mm[Hg] Kil bill Morgan oxygen saturation, oximetry 98 % Andrea Morgan respiratory rate E&M 16 /min [place] Morgan pulse rate 73 /min [place] weight E&M 205 [lb_av] Andrea Morgan height E&M 60 [in_i] [place] Morgan Body Mass Index (Ratio) 39.84 kg/m2 [...] blood pressure, diastolic 80 mm[Hg] Julien goins Thaxton blood pressure, systolic 116 mm[Hg] Demetria villegas [place] respiratory rate E&M 17 /min Luda Thaxton blood pressure, cuff size regular Julien goins Soy weight E&M 204 [lb_av] Luda Soy pulse rate 72 /min Luda Thaxton oxygen saturation, oximetry 98 % Luda Thaxton height E&M 60 [in_i] Luda Soy Body [...] khan Morgan oxygen saturation, oximetry 93 % [place] respiratory rate E&M 16 /min [place] Morgan pulse rate 16 /min weight E&M 204 [lb_av] height E&M 60 [in_i] [facility] Body [facility] Index (Ratio) 40.03 kg/m2 Donte Alejandra MD blood pressure, cuff size regular Ke rri Mally blood pressure, diastolic 72 mm[Hg] Ke rri Mally blood pressure, systolic 118 mm[Hg] Rosa Maria Bal oxygen saturation, oximetry 98 % Qi Bal respiratory rate E&M 18 /min Qi rangel pulse rate 70 /min Qi Flores [facility] weight E&M 205 [lb_av] Qi Flores er height E&M 60 [in_i] Qi Flores [facility] Body Mass Index (Ratio) 38.08 kg/m2 Mee Martini NP blood pressure, diastolic 70 mm[Hg] Julien isty Soy blood pressure, systolic 110 mm[Hg] Julieni nelly Soy oxygen saturation, oximetry 98 % Luda Thaxton respiratory rate E&M 17 /min Luda Soy pulse rate 70 /min Luda Soy weight E&M 195 [lb_av] Luda Thaxton blood pressure, cuff size regular Kr isty Soy height E&M 60 [in_i] Luda Olivier Body Mass Index (Ratio) 38.47 kg/m2 Onur Foley MD blood pressure, diastolic 68 mm[Hg] Francisco chaidez Morgan blood pressure, systolic 112 mm[Hg] Sue Riberaam oxygen saturation, oximetry 98 % Andrea Morgan respiratory rate E&M 16 /min Andrea Morgan pulse rate 74 /min Andrea Morgan weight E&M 197 [lb_av] [place] Morgan height E&M 60 [in_i] Andrea [place] Body Mass Index (Ratio) 37.49 kg/m2 Donte Alejandra MD respiratory rate E&M 19 /min Marie Burnett blood pressure, diastolic 70 mm[Hg] Matheus hoover [place] blood pressure, systolic 112 mm[Hg] Omalley evita Burnett pulse rate 75 /min Marie [place] oxygen saturation, oximetry 98 % [facility] blood pressure, cuff size regular Matheus hoover [place] weight E&M 192 [lb_av] Marie Burnett height E&M 60 [in_i] [facility] Body Mass Index (Ratio) 38.66 kg/m2 Donte [...] blood pressure, systolic 116 mm[Hg] Ten merlin Bagn blood pressure, cuff size regular Te kingsleybianca [...] /min Amadeo foster weight E&M 198.8 [lb_av] Aamdeo benedict height E&M 60 [in_i] Amadeo foster [...] LinkLogic 3.5-5.2 sodium, serum 141 mmol/L LinkLogic [phone]/05 /15 urea nitrogen/creatinine ratio, serum 20 LinkLogic [...] mmol/L LinkLogic 3.5-5.2 sodium, serum 144 mmol/L [facility] [phone]/10 /24 urea nitrogen/creatinine ratio, serum 18 LinkLogic [...] Not Estab. platelet count 155 X10E3/UL LinkLogic [phone]/10 /24 red blood cell distribution width 12.7 [...] 3.5-5.2 High sodium, serum 144 mmol/L LinkLogic [phone]/01 /31 urea nitrogen/creatinine ratio, serum 17 LinkLogic [...] LinkLogic 3.5-5.2 sodium, serum 141 mmol/L LinkLogic [phone]/11 /28 urea nitrogen/creatinine ratio, serum 18 LinkLogic [...] Not Estab. platelet count 203 X10E3/UL LinkLogic [phone]/11 /28 red blood cell distribution width 14.4 [...] LinkLogic 3.5-5.2 sodium, serum 140 mmol/L LinkLogic [phone]/10 /12 urea nitrogen/creatinine ratio, serum 17 LinkLogic [...] Not Estab. platelet count 219 X10E3/UL LinkLogic [phone]/06 /06 red blood cell distribution width 13.7 [...] 3.5-5.2 High sodium, serum 142 mmol/L LinkLogic [phone]/06 /06 urea nitrogen/creatinine ratio, serum 22 LinkLogic [...] as percent of blood leukocytes 0.3 % [facility] - red blood cell (erythrocyte) count, [...] - 3.9 mean platelet volume 13.8 (?) [facility] - platelet count 169.0 THOUSAND/UL LinkLogic [...] percentage of total cells, blood 0.1 % [facility] - mean corpuscular volume, RBC 94.0 fL LinkLog 75.0 - 100.0 hematocrit, blood 43.7 % [facility] 35.0 - 55.0 hemoglobin, blood 13.6 g/dL LinkLog 11.5 - 16.5 erythrocyte count, whole blood 4.7 MILLION/UL LinkLog 3.5 - 5.5 trichomonas vaginalis, urine None seen LinkLog urine crystals, microscopic None seen [facility] casts, urine, microscopic None seen [facility] mucus on urinalysis None seen [facility] Not Estab. nucleated red blood cells as percent of blood leukocytes 0.0 % [facility] - red blood cell (erythrocyte) count, per high power field 0.0 10*3/UL [facility] - eosinophils as percent of blood leukocytes 3.0 % [facility] - neutrophils as percent of blood leukocytes 57.7 % [facility] - Absolute Neutrophils 4.1 CELLS/UL LinkLog 1.5 - 7.8 basophils as percent of blood leukocytes 0.7 % [facility] - Absolute Basophils 0.1 CELLS/UL LinkLogic 0.0 - 0.2 monocytes as percent of blood leukocytes 14.3 % [facility] - Absolute Monocytes 1.0 CELLS/UL LinkLog 0.2 - 1.0 High lymphocytes as percent of blood leukocytes 24.2 % [facility] - Absolute Lymphocytes 1.7 CELLS/UL LinkLogic 0.9 - 3.9 mean platelet volume 13.6 (?) [facility] - platelet count 145.0 THOUSAND/UL LinkLog [...] 10 days - Jesús Phillips VITAMIN D3 [id number] UNIT ORAL TABLET completed TAKE ONE TAB [...] Foley MD smoking status Never smoker Juno Foely MD alcohol use, average drinks per day [...] smoking status Never smoker Rachel Breen in BOILER OR ENGINE OPERATOR social history reviewed E&M revi ewed - no changes required Rachel Bautista NP social history reviewed E&M revi ewed - no changes required Juno Foley MD smoking status Never smoker Amadeo [employer] smoking status Never smoker Vanessa Sahra social history reviewed E&M revi ewed - no changes required Tania Gomez NP smoking status Never smoker Natalia ulo alcohol use, average drinks per day 4+ [...] MD smoking status Never smoker Amadeo Darby [facility] social history reviewed E&M revi ewed - no changes required Puma Benigno smoking status Never smoker Amadeo Darby [facility] social history reviewed E&M revi [...] required Juno Foley MD alcohol counseling yes Andrea I ngram alcohol use, average drinks per day 4+ Andrea Morgan alcohol use yes Andrea Morgan smoking [...] Qi Akshatneannabelbernarder alcohol use yes Qi Munae snady smoking status Never smoker Qi Hernandezwendy naqvi [...] required Mk Alejandra MD alcohol counseling yes [place] I ngram alcohol use, average drinks per day 4+ [place] Morgan alcohol use yes [place] Morgan smoking status Never smoker Andrea Ingra [...] Luda Soy smoking status Never smoker Luda Thaxton number of grandchildren Mk Alejandra MD social [...] required Mk Alejandra MD alcohol counseling yes [place] Razia nuno alcohol use, average drinks per day 4+ Andrea Morgan alcohol use yes Andrea Morgan smoking status Never smoker Andrea Riberaa m alcohol counseling yes Qi howellfelder alcohol use, average drinks per day 4+ Qi Odenmarileeer alcohol use yes Qi Hernandezkhushi lder smoking status Never smoker Qi naqvi number of grandchildren Mk Drake Hu BOILER OR ENGINE OPERATOR alcohol counseling yes Luda Bu sby alcohol use, average drinks per day 4+ Luda Soy alcohol use yes Luda Soy smoking status Never smoker Luda Thaxton number of grandchildren Juno Foley MD U nicole Foley MD social history reviewed E&M revi ewed - no changes required Juno Foley MD social history reviewed E&M revi ewed - no changes required Mk Alejandra MD smoking status Never smoker [facility] social history E&M S moking History: Caterina best has never smoked. [facility] social history reviewed E&M revi ewed - no changes required [facility] alcohol counseling yes Qi Branch vadim alcohol use, average drinks per day 4+ Qi Ozer alcohol use yes Qi Hernandezannabelnathan lder social history reviewed E&M revi ewed - no changes required Mk Alejandra MD alcohol counseling yes Vidal Hu BOILER OR ENGINE OPERATOR alcohol use, average drinks per day 4+ Vidal Hu BOILER OR ENGINE OPERATOR alcohol use yes Vidal Hu BOILER OR ENGINE OPERATOR smoking status Never smoker Vidal Hu BOILER OR ENGINE OPERATOR number of grandchildren Mk [place] social [...] Osmin [place] number of grandchildren Mk Solorio [facility] social history E&M Smoking Histo ry: P atlakeisha has never smoked. Osmin [facility] social history reviewed E&M revi ewed - [...] (inactive) Management Plan continue current therapy Barrett Jhonston HRA, CV Assess/Plan, Angina (inactive) Management Plan [...] Payer name Policy type / Coverage type [place] [facility] ID [place] Medicare [id number] ADVANCE DIRECTIVES Name Date DISCUSSED - NO DECISION MADE TREATMENT PLAN Date Name Performer [id number],B, Juno Foley MD [id number],C,seen on last echo Juno Foley MD [id number],C,last echo EF 60% Juno Foley MD [id number],C,p er PCP, she will start jardiance for renal protection l ast A1c 5.5% Juno Foley MD [id number],S, Juno Foley MD [id number],C, H er updated medication list for this problem includes: Crestor 20 Mg Tablet (Rosuvastatin) ..... Take 1 tablet once a day Juno Foley MD [id number],C, B P today: 120/79 P rior BP: 114/78 (08/16/2022) Labs Reviewed: C reat: 0.91 (03/10/2021) C hol: 211 (11/26/2018) HDL: 60 (11/26/2018) Her updated medication list for this problem includes: Sotalol 80 Mg Tablet (Sotalol) ..... Take 0.5 tablet by mouth twice a day Juno Foley MD [id number],B, Juno Foley MD [id number],B,I will repeat her echo in a month or so. She is on Entresto and Crestor. She also has a defibrillator Juno Foley MD [id number],S, Juno Foley MD [id number],B, Juno Foley MD [id number],S, Juno Foley MD [id number],S, Juno Foley MD [id number],S, A ppears stable. No chest pain. Continues on crestor. Her updated medication list for this problem includes: Sotalol 80 Mg Tablet (Sotalol) ..... Take 0.5 tablet once a day Juno Foley MD [id number],S, s he hasn't been using cpap at night Juno Foley MD [id number],S, I 'm going to cut her crestor to 20mg - I don't think she needs such a high dose since she has only mild CAD. Her updated medication list for this problem includes: Crestor 20 Mg Tablet (Rosuvastatin) ..... Take 1 tablet once a day Juno Foley MD [id number],S, N o recurrence K 4.4. 06/19/21 Juno Foley MD [id number],S, B P today: 101/59 P rior BP: 135/78 (11/19/2021) Her updated medication list for this problem includes: Sotalol 80 Mg Tablet (Sotalol) ..... Take 0.5 tablet once a day Juno Foley MD [id number],S, C lincally well compensated and is without shortness of breath. Continues on Entresto 49-51mg dose. Last EF was 60-65%. Juno Foley MD [id number],S, s /p BIV ICD, no recent events or shocks Juno Foley MD [id number],S, A 1C 5.5 Her updated medication list for this problem includes: Ozempic 0.25 Mg Or 0.5 Mg(2 Mg/1.5 Ml) Pen Injector (Semaglutide) ..... Once a week as directed Entresto 24-26 Mg Tablet (Sacubitril-valsartan) ..... 1 tablet by mouth twice a day Glipizide 5 Mg Tablet Extended Release 24hr (Glipizide) ..... Take 1 tablet by mouth once a day Rachel Bautista NP [id number],S, E F 60~65% on last echo. Rachel Bautista NP [id number],S, C lincally well compensated and is without shortness of breath. Continues on Entresto 49-51mg dose today. Rachel Bautista NP [id number],S, T he patient is using CPAP on a regular basis. The patient has been benefiting from therapy and should continue use. Rachel Bautista NP [id number],S, E pisode in September 2017 leading to shock by defibrillator. No recurrence. Rachel Bautista HALEY [id number],W, P rescribed Buspar by PCP. Recommend neurology evaluation. Rachel Bautista HALEY [id number],S, H er updated medication list for this problem includes: Tricor 145 Mg Tablet (Fenofibrate nanocrystallized) ..... 1 tablet once a day Crestor 40 Mg Tablet (Rosuvastatin) ..... 1 tablet once a day Rachel Bautista HALEY [id number],S, B P today: 135/78 P rior BP: 110/79 (10/05/2021) Her updated medication list for this problem includes: Sotalol 80 Mg Tablet (Sotalol) ..... Take 0.5 tablet once a day Rachel Jerel DE LEON [id number],C, T he patient is using CPAP on a regular basis. The patient has been benefiting from therapy and should continue use. Juno Foley MD [id number],C, N o recurrence K 4.4. 06/19/21 Juno Foley MD [id number],C, H er updated medication list for this problem includes: Tricor 145 Mg Tablet (Fenofibrate nanocrystallized) ..... 1 tablet once a day Crestor 40 Mg Tablet (Rosuvastatin) ..... 1 tablet once a day Juno Foley MD [id number],C, s /p BIV ICD, no recent events or shocks Juno Foley MD [id number],C, B P today: 110/79 P rior BP: 130/80 (06/22/2021) Labs Reviewed: C reat: 0.91 (03/10/2021) C hol: 211 (11/26/2018) HDL: 60 (11/26/2018) Her updated medication list for this problem includes: Sotalol 80 Mg Tablet (Sotalol) ..... Take 0.5 tablet once a day Juno Foley MD [id number],B, C lincally well compensated and is without shortness of breath. Continues on Entresto 49-51mg dose today. Juno Foley MD [id number],B, E F 60~65% on last echo. Juno Foley MD [id number],S, Rachel brian BOILER OR ENGINE OPERATOR [id number],B, Rachel brian BOILER OR ENGINE OPERATOR [id number],N,P rescribed Buspar by PCP. Feels better. Rachel Bautista NP [id number],B,resolved Abhinav Bautista NP [id number],S, Juno Foley MD [id number],B,on last echo. Juno Foley MD [id number],C,will repeat b mp. Juno Foley MD [id number],C,T his may be a vasovagal attack, but [...] medical condition(s) listed above for the patient. [facility]:No signs of decompensation This visit has been a part of the consistent, comprehensive, and ongoing management of the chronic medical condition(s) listed above for the patient. [facility]:This visi t has been a part of the consistent, comprehensive, and ongoing management of the chronic medical condition(s) listed above for the patient. Her updated medication list for this problem includes: Jardiance 10 Mg Tablet (Empagliflozin) Ozempic 0.25 Mg Or 0.5 Mg(2 Mg/1.5 Ml) Pen Injector (Semaglutide) ..... Once a week as directed [facility]:Cath 2017 I MPRESSION: 1 . Mild pulmonary hypertension. 2 . Severe LV dysfunction. 3 . Moderate nonobstructive CAD. 4 . No significant renal artery stenosis. This visit has been a part of the consistent, comprehensive, and ongoing management of the chronic medical condition(s) listed above for the patient. [facility]:This visi t has been a part [...] (Semaglutide) ..... Once a week as directed [facility] wo und check : l ast echo EF 60% [facility] Electrophysiology wo und check : C lincally well compensated and is without shortness of breath. Continues on Entresto 24-26 mg dose. Last EF was 60-65%. [facility] Electrophysiology wo und check : P rior BP: 112/80 (12/12/2023) Labs Reviewed: C reat: 0.91 (03/10/2021) C hol: 211 (11/26/2018) HDL: 60 (11/26/2018) LDL: 116 (11/26/2018) T (11/26/2018) Her updated medication list for this problem includes: Sotalol 80 Mg Tablet (Sotalol) ..... Take 0.5 tablet by mouth twice a day [facility] Electrophysiology: H er updated medication list for this problem includes: Ozempic 0.25 Mg Or 0.5 Mg(2 Mg/1.5 Ml) Pen Injector (Semaglutide) ..... Once a week as directed [facility] Electrophysiology:Pt denies any CP or SOB. [facility] Electrophysiology: B P today: 112/80 P rior BP: 118/72 (09/05/2023) Labs Reviewed: C reat: 0.91 (03/10/2021) C hol: 211 (11/26/2018) HDL: 60 (11/26/2018) LDL: 116 (11/26/2018) T (11/26/2018) Her updated medication list for this problem includes: Sotalol 80 Mg Tablet (Sotalol) ..... 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 No recurrence. Mk Alejandra MD Cardiology follow up UQ BOILER OR ENGINE OPERATOR :A1C 5.5 H er updated medication [...] Mk Alejandra MD Cardiology follow up UQ BOILER OR ENGINE OPERATOR :Entresto decreased last month. BP stable, pt feels much better Her updated medication list for this problem includes: Aspir-81 81 Mg Oral Tablet Delayed Release (Aspirin) ..... Take one tablet daily Sotalol 80mg Tablets (Sotalol hcl) ..... Take one half tablet per day Tania Gomez NP Cardiology follow up UQ BOILER OR ENGINE OPERATOR :Device ok. R V 94%, LV94% N o AF/AT/VT. 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 No recurrence. Tania Marin Patricia DE LEON Cardiology follow up UQ BOILER OR ENGINE OPERATOR :K 4. 6 . Cr. 0.91 Tania Gomez BOILER OR ENGINE OPERATOR Cardiology follow up UQ BOILER OR ENGINE OPERATOR :A1C 5.5 H er updated medication [...] Cardiology:Repeat gaston best was taken off of [facility] in the hospital Juno Foley MD [...] twice daily Juno Foley MD Cardiology:Continues on [facility] Juno Foley MD Cardiology:Increased Entresto to [...] Foley MD Cardiology:Advised t o remain on [facility] at this time and not to [...] revision. Most recent device check: 05/05/2020 AT/AF [place]: 0% % Pacing: RV Pacing- 98% RA Pacing- 0% LV P acing- 98% Juno Foley MD Cardiology:Will swit ch from Lisinopril to Entresto. Will check a BMP in one month. Juno Foley MD Electrophysiology:no rmal device function w ell healing scar [facility] Cardiology follow up :normal device fucntion w ell healing scar [facility] Cardiology:normal de vice function w ell healing scar [facility] Electrophysiology:wi ll need lead replacement in 3 months after she had fully healed [facility] Electrophysiology: H er updated medication list for this problem includes: Lisinopril 5 Mg Oral Tablet (Lisinopril) ..... One tab. daily Aspir-81 81 Mg Oral Tablet Delayed Release (Aspirin) ..... Take one tablet daily Sotalol 80mg Tablets (Sotalol hcl) ..... Take 1 tablet by mouth twice daily [facility] Electrophysiology: H er updated medication [...] lead replacement. Pt agrees with this plan [facility] Electrophysiology:Di scussed need for new LV lead replacement [facility] Electrophysiology: B P today: 126/88 P rior [...] tab. twice daily Orders: C omplete Echo (CPT-53699) C omplete Echo (CPT-44335) X -Ray, Chest - Routine (CPT-04745) X -Ray, Chest - Routine (CPT-90443) Mk Alejandra MD Electrophysiology: H er updated medication list for this problem includes: Lisinopril 5 Mg Oral Tablet (Lisinopril) ..... One tab. daily Aspir-81 81 Mg Oral Tablet Delayed Release (Aspirin) ..... Take one tablet daily Sotalol Hcl 80 Mg Oral Tablet (Sotalol hcl) ..... One tab. twice daily Orders: E KG (CPT-62728) C omplete Echo (CPT-37785) X -Ray, Chest - Routine (CPT-84319) Mk Alejandra MD Cardiology:PAtient v milanaalizes that she will research dieting and exercise for better DM control. per PCP Juno Foley MD Cardiology:seems to be vasovagal. Reports 1 episode in last month. Has had 5 episodes in total in the last 2 years. BiV ICD interrogation fails to reveal episodes of sig. rhythm disturbance. Juno Foley MD Cardiology Jnuo Foley MD Cardiology: B P today: 100/60 [...] chedule Followup (*) 9 9214 MOD Complex (CPT-93156) V enous Doppler Bilateral LE (CPT-79380) Mk Alejandra MD Electrophysiology Fo llow up : W ill check venous doppler BLE for DVT. W ill check CMP and d-dimer. S chedule CT chest with IV contrast IF d-dimer comes back positive. Hx of SOB and leg edema. Orders: C OMPREHENSIVE METABOLIC PANEL, W/EGFR (00551) D -DIMER, QUANTITATIVE (8659) L IPID PANEL (3020) V enous Doppler Bilateral LE (CPT-32039) S chedule Followup (*) 9 9214 MOD Complex (CPT-13807) Her updated medication list for this problem [...] PVCs/hr. Orders: C OMPREHENSIVE METABOLIC PANEL, W/EGFR (60872) D-DIMER, QUANTITATIVE (8659) L IPID PANEL (3700) S chedule Followup (*) 9 14 MOD Complex (CPT-94204) Her updated medication list for this problem includes: Lisinopril 2.5 Mg Oral Tablet (Lisinopril) ..... One tab. at night Aspir-81 81 Mg Oral Tablet Delayed Release (Aspirin) ..... Take one tablet daily Sotalol Hcl 80 Mg Oral Tablet (Sotalol hcl) ..... One tab. twice daily Mk Alejandra MD Electrophysiology Ho spital Follow up : O rders: U RINALYSIS, COMPLETE W/REFLEX TO CULTURE (0893) Her updated medication list for this problem [...] One tab. twice daily Orders: E KG (CPT-56724) 9 9214 MOD Complex (CPT-39083) C omplete Echo (CPT-13091) Mk Alejandra MD Electrophysiology Ho spital Follow up : O rders: 9 9214 MOD Complex (CPT-43412) C omplete Echo (CPT-39419) Her updated medication list for this problem [...] 04/21/17. D evice check 06/10/18 shows 89% STRATEGIC PARTNER DEVELOPMENT MANAGER, 78% BiVP. No SVT. Her updated medication [...] w/ Anesthesia (*) 9 9201 LTD. Complex (CPT-78537) Schedule Followup (*) Her updated medication list [...] 05/15/18 shows EF 35%. Orders: E KG (CPT-15819) 9 9212 MOD Complex (CPT-29176) S chedule Followup (*) Her updated medication [...] Fo llow up :Orders: 9213 MOD Complex (CPT-83465) S chedule Followup (*) Her updated medication [...] 04/21/17. D evice check 06/10/18 shows 89% STRATEGIC PARTNER DEVELOPMENT MANAGER, 78% BiVP. No SVT. Her updated medication [...] anesthesia in the next few months at [facility]. P atient to take 5mg Coumadin daily for 7 days prior to procedure. Orders: 9213 MOD Complex (CPT-70831) S chedule Followup (*) A BLATION w/ [...] 04/21/17. D evice check 06/10/18 shows 89% STRATEGIC PARTNER DEVELOPMENT MANAGER, 78% BiVP. No SVT. F ollowup with [...] tab. twice daily Juan Davidmichi Lane Electrophysiology [facility] Ariana Electrophysiology Ho spital Follow up [...] INR (8847) C OMPREHENSIVE METABOLIC PANEL W/EGFR (07075) U RINALYSIS, COMPLETE W/REFLEX TO CULTURE (3020) [...] Follow up : O rders: S NOMED-CT: [id number] Current Medications Documented ([facility]-[id number]) E KG (CPT-42098) G lobal No Charge (CPT-55017) F VC - 78241 (57938) F RC - 38683 (86552) D LCO - 80612 (18929) Her updated medication list for this problem [...] up : O rders: D O - 43121 (54658) [facility]) Her updated medication list for this problem includes: Spironolactone 25 Mg Oral Tablet (Spironolactone) ..... Half tablet daily Carvedilol 6.25 Mg Oral Tablet (Carvedilol) ..... One tab. twice daily Enalapril Maleate 20 Mg Oral Tablet (Enalapril maleate) ..... One tab. daily Saulius Kalvaitis MD Electrophysiology Ho spital Follow up :improved on amiodarone O rders: Harvey saleh No Charge (CPT-37783) S vesta Followup (*) Her updated medication list for this problem includes: Amiodarone Hcl 200 Mg Oral Tablet (Amiodarone hcl) ..... Take one pill a day Carvedilol 6.25 Mg Oral Tablet (Carvedilol) ..... One tab. twice daily Enalapril Maleate 20 Mg Oral Tablet (Enalapril maleate) ..... One tab. daily Mk Alejandra MD Electrophysiology - NP:s/p biv icd Vidal Hu BOILER OR ENGINE OPERATOR Cardiology:Having surgery to rem ove part [...] (Enalapril maleate) ..... One tab. daily [facility] EP faxed 01/23/17 [facility] 01/23/17:Her updated medication list for this problem includes: Carvedilol 6.25 Mg Tabs (Carvedilol) ..... One tab. twice daily Enalapril Maleate 20 Mg Tabs (Enalapril maleate) ..... One tab. daily Magnesium Oxide 400 Mg Oral Tabs (Magnesium oxide) .... One tablet twice daily <--- Starting today Patient is planned to undergo cardiac catheterization. Will schedule EP study after her cath. [facility] EP faxed 01/23/17:Her updated medication list for this problem includes: Carvedilol 6.25 Mg Tabs (Carvedilol) ..... One tab. twice daily Enalapril Maleate 20 Mg Tabs (Enalapril maleate) ..... One tab. daily Magnesium Oxide 400 Mg Oral Tabs (Magnesium oxide) .... One tablet twice daily <--- Starting today [facility] Cardiology:[place] [address] ectopics 6.8% of total beats. Will schedule [...] Duplex Bilat eral Complete Echo DLCO - 42491 FRC - 69082 FVC - 53854 MAGNESIUM COMPREHENSIVE METABO LIC PANEL, W/EGFR THYROID PANEL WITH T SH, 3RD GENERATION Complete Echo DLCO - 80881 FRC - 56007 FVC - 20823 Complete Echo URINALYSIS, COMPLETE W/REFLEX TO CULTURE [...] Juno Foley MD INTERROGATION REMOTE </90 D APPAREL RENTAL CLERK REVIEW completed AICD Interrogation, Remote (Prof) Juno [...] Juno Foley MD INTERROGATION REMOTE </90 D APPAREL RENTAL CLERK REVIEW completed AICD Interrogation, Remote (Prof) Juno [...] jc MD completed FVC / MVV - 98787 kM davila MD completed FRC - 65186 Mk jc MD completed SpO2 w/o 6min walk/titration Mk Alejandra MD completed DLCO - 73032 Mk jc MD completed EKG Mk jc [...] REMOTE </30 D TECH REVIEW completed SNOMED-CT: 68215430 Physical Exam, Performed: Pulse Exam of Foot Juno Foley MD completed SNOMED-CT: 412666076934555 Current Medications Documented Juno Foley MD completed EKG Mk jc MD completed EKG Juno Foley MD completed EKG Mk jc MD completed SNOMED-CT: 566543019686960 Current Medications Documented Mk Alejandra MD completed EKG Mk jc MD completed SNOMED-CT: 656816485982561 Current Medications Documented Mk Alejandra MD completed FVC / MVV - 79972 Mk davila MD completed FRC - 50757 Mk jc MD completed SpO2 - 31827 Mk jc MD completed DLCO - 77925 Mk jc MD completed ICM Interrogation, Remote (Prof) Juno Foley MD INTERROGATION EVAL REMOTE </30 D CV MNTR SYS completed ICM Interrogation, Remote (Tech) Juno Foley MD INTERROGATION EVAL REMOTE </30 D TECH REVIEW completed Schedule Followup Mk davila MD in 3 weeks completed EKG Mk jc MD completed SNOMED-CT: 604789265429772 Current Medications Documented Mk Alejandra MD completed ICM Interrogation, Remote (Prof) Juno Foley MD INTERROGATION EVAL REMOTE </30 D CV MNTR SYS completed ICM Interrogation, Remote (Tech) Juno Foley MD INTERROGATION EVAL REMOTE </30 D TECH REVIEW completed Schedule ICD Check Edin Jarrod ck DO completed Schedule Followup Edin Glascoc k DO 6 months completed EKG Edin Lorenzanacock DO completed SNOMED-CT: 494371014522838 Current Medications Documented Edin Lorenzanacock DO completed ICM Interrogation, Remote (Prof) Juno Foley MD INTERROGATION EVAL REMOTE </30 D CV MNTR SYS completed ICM Interrogation, Remote (Tech) Juno Foley MD INTERROGATION EVAL REMOTE </30 D TECH REVIEW completed SNOMED-CT: 46777776 Physical Exam, Performed: Pulse Exam of Foot Juno Foley MD completed SNOMED-CT: 477326540759286 Current Medications Documented Juno Foley MD completed EKG Mk jc MD completed SNOMED-CT: 387360732657713 Current Medications Documented Mk Alejandra MD completed EKG Mk jc MD completed SNOMED-CT: 228914775338635 Current Medications Documented Mk Alejandra MD completed Schedule Followup Mk davila MD 3 months completed SNOMED-CT: 270300320070485 Current Medications Documented Mk Alejandra MD completed EKG Mk jc MD completed Loop Recorder Interrogation, Remote Juno Foley MD INTERROGATION EVALUATION REMOTE </30 D ILR SYS completed ICM Interrogation, Remote (Tech) Juno Foley MD INTERROGATION EVAL REMOTE </30 D TECH REVIEW completed EKG Mk jc MD completed SNOMED-CT: 278411316962779 Current Medications Documented Mk Alejandra MD completed Protime Juno Foley MD completed Protime Juno Foley MD completed SNOMED-CT: 30316770 Physical Exam, Performed: Pulse Exam of Foot Juno Foley MD completed SNOMED-CT: 694827638322797 Current Medications Documented Juno Foley MD completed EKG Mk jc MD completed SNOMED-CT: 099349178264584 Current Medications Documented Mk Alejandra MD completed SNOMED-CT: 55610854 Physical Exam, Performed: Pulse Exam of Foot Juno Foley MD completed SNOMED-CT: 575717801726639 Current Medications Documented Juno Foley MD completed Stress EKG Emmy Pham MD completed Regadenoson, 4 units Juno Foley MD completed Cardiolite, 2 units Juno Foley MD completed SPECT Images Emmy Pham MD complet ed EKG Juno Foley MD completed SNOMED-CT: 369313825315139 Current Medications Documented Juno Foley MD completed
--- OUTSIDE RECORDS SUMMARY | 2025-02-25 06:49 | XMS_ITS | Clinical Summary ---
Author Organization [email or web address] Address [address] [place] [address] Care Team Providers Care Hogshead Head Matcher Name Role Phone Duglas Collado MD Primary Care Provider Source Comments [facility] Affiliates and Associated Physician Practices is amultiple site organization consisting of ambulatory clinics and hospital sitesin [place], [place], [place] and [place]. This disclosure is being madepursuant to the Care Everywhere program and may not contain all information available regarding this patient. Last updated 18.[email or web address] Allergies Active Allergy Reactions Criticality Noted Date Comments Codeine Nausea and/or Vomiting,Vomiting Medium 05/27 Meperidine Nausea and/or Vomiting,Vomiting Medium 05/27 Medications * Be aware that medications may not be up to date on this document. Alwaysverify current medications with the patient. loratadine (CLARITIN) 10 MG tablet Take 10 mg by mouth once daily 9 Active vitamin D, ergocalciferol, (DRISDOL) 1.25 MG (63823 UT) capsule Take 50,000 Units by mouth [...] on file Legal Sex Female 7:00 PM PERFORMANCE IMPROVEMENT COORDINATOR Gender Identity Not on file Sexual Orientation Not on file Last Filed Vital Signs Vital Sign Reading Time Taken Comments Blood Pressure 110/68 10/28/2019 2:58 PM PERFORMANCE IMPROVEMENT COORDINATOR Pulse 77 10/28/2019 2:58 PM PERFORMANCE IMPROVEMENT COORDINATOR Temperature 36.7 C (98.1 F) 10/28/2019 2:58 PM PERFORMANCE IMPROVEMENT COORDINATOR Respiratory Rate 18 10/28/2019 2:58 PM PERFORMANCE IMPROVEMENT COORDINATOR Oxygen Saturation 96% 10/28/2019 2:58 PM PERFORMANCE IMPROVEMENT COORDINATOR Inhaled Oxygen Concentration - - Weight 87.2 kg (192 lb 4.8 oz) 10/28/2019 2:58 P M PERFORMANCE IMPROVEMENT COORDINATOR Height 165.1 cm (5' 5 ) 10/28/2019 2:58 PM PERFORMANCE IMPROVEMENT COORDINATOR Body Mass Index 32 10/28/2019 2:58 PM PERFORMANCE IMPROVEMENT COORDINATOR Plan of Treatment Health Maintenance Due Date [...] Relevant to Health Maintenance Insurance MEDICARE [employer] MEDICARE SELF PAY NO INSURANCE Member Subscriber Plan / Payer (Ef fective for All Dates) Name:Katheryn Phillips Member ID:Not on file Relation to Subscriber:Not on file Name:KATHERYN PHILLIPS Subscriber ID:Not on file (Home) Address: [address] [place] [address] Payer ID:Not on file Group ID:Not on file Type:Self Pay Address: [place], [place] * Guarantor: KATHERYN HPILLIPS Account Type Relation to Patient Date of Phone Billing Address Personal/Family [address] [place] [address] MEDICARE [employer] Member Subscriber Plan / Payer (Ef fective for All Dates) Name:Katheryn Phillips Member ID:Not on file Relation to Subscriber:Self Name:Katheryn Phillips Subscriber ID:Not on file Payer ID:[id number] (NAIC) Group ID:[id number] Type:Commercial Address: [address] * Guarantor: KATHERYN PHILLIPS Account Type Relation to Patient Date of Phone Billing Address Personal/Family [address] [address] MEDICARE AET[employer] Member Subscriber Plan / Payer (Ef fective for All Dates) Name:Katheryn Phillips Member ID:Not on file Relation to Subscriber:Self Name:Katheryn Phillips Subscriber ID:Not on file Payer ID:[id number] (NAIC) Group ID:[id number] Type:Commercial Address: [address] * Guarantor: KATHERYN PHILLIPS Account Type Relation to Patient Date of Phone Billing Address Personal/Family [address] [place] [address] MEDICARE AET[employer] Care Teams Hogshead Head Matcher Relationship Specialty Start Date End Date Duglas Collado MD [address] [address] PCP - General Internal Medicine 07/16/19
== END 2025-02-25 06:45 | disposition home or self-care (01) ==
PROVIDERS: PCP Internal Medicine; Visit Provider Nurse Practitioner
DX: R10.32 Left lower quadrant pain (principal); K57.92 Diverticulitis of intestine, part unspecified, without perforation or abscess without bleeding
CPT/HCPCS: 74177; Q9967

== ENCOUNTER 2025-03-07 10:43 | Outpatient (CLI) | payer MEDICARE, SELFPAY ==
--- NOTE | ~2025-03-07 | CT_ITS ---
CT Scan of the Chest without Contrast: Clinical Indication: Breast cancer Technique: Contiguous sections were acquired throughout the chest without intravenous contrast. Dose reduction technique was used on this scan by utilizing automated exposure control and iterative recon struction technique. The dose-length product (DLP) was 138.80 mGy-cm. Findings: There is no evidence of any significant mediastinal, hilar or axillary lymphadenopathy. The mediastin al soft tissues appear normal. Small pericardial effusion present. Pacemaker device present. There is no evidence of pleural effusion. There is a tubular nodule in the peripheral right upper lobe, most likely small impacted airway (axia l image 60). Scattered calcified granulomas are present. Images through the upper abdomen reveal gastric lap band. Impression: Tubular nodule in the peripheral right upper lobe, likely a small impacted airway. Comparison with a ny prior outside CT scans to be useful to assess for chronicity of this lesion. Otherwise, follow-up CT scan in 3-6 months recommended to reassess. Small pericardial effusion. Reviewed, dictated and finalized at [facility]. Impression: Tubular nodule in the peripheral right upper lobe, likely a small impacted airw ay. Comparison with any prior outside CT scans to be useful to assess for helminthology teacher nicity of this lesion. Otherwise, follow-up CT scan in 3-6 months recommended t o reassess. Small pericardial effusion.
--- OUTSIDE RECORDS SUMMARY | 2025-03-07 10:52 | XMS_ITS | Clinical Summary ---
Author Organization [facility] al Address [address] [place] [address] Care Team Providers Care Line Maintainer Name Role Phone Dante Collado MD Primary Care Provide r Mk Alejandra MD Unavailable [phone] Allergies Active Allergy Reactions Criticality Noted Date [...] (01/17/2021): Added automatically from request for surgery [id number] Troponin level elevated 03/29/2020 Defibrillator discharge 03/28/2020 [...] on file Legal Sex Female 7:03 PM [employer] Gender Identity Not on file Sexual Orientation Not on file Obstetrics History Last Filed Vital Signs Vital Sign Reading Time Taken Comments Blood Pressure 120/81 09/05/2022 8:37 AM [facility] [facility] Pulse 66 09/05/2022 8:37 AM [employer] Temperature 36.4 C (97.5 F) 11/18/2021 2:14 PM [employer] Respiratory Rate 25 11/18/2021 6:20 PM [employer] Oxygen Saturation 100% 11/18/2021 6:20 PM [employer] Inhaled Oxygen Concentration - - Weight 66 kg (145 lb 6.4 oz) 09/05/2022 8:37 AM [employer] Height 154.9 cm (5' 1 ) 09/05/2022 8:37 AM [employer] Body Mass Index 27.47 09/05/2022 8:37 AM [employer] Plan of Treatment Health Maintenance Due Date [...] 09/17/2022, 08/28 Medical Devices Implanted Type Area Beauty Sales Consultant Device Identifier Shelf Expiration Date Model / Serial / Lot [employer] [id number] Solia S 45cm Bipolar Active Fixation Lead Pacing Steroid Eluting - [id number] - [id number] Implanted:Qty: 1 on 09/22/2019 by Mk Alejandra MD at [facility] Lead [employer] [id number] 06/26/2021 [id number] / [id number] / Lead Icd Sentus Promri Left Ventricular Otw Quadripolar L-85/49 - [id number] - [id number] Implanted:Qty: 1 on 04/09/2018 by Mk Alejandra MD at [facility] [employer] 12/25/2019 [id number] / [id number] / [employer] [id number] Angio-Seal Vip Bondek-Plus 8fr .038in 70cm Hemostatic Latex Free - [id number] Implanted:Qty: 1 on 10/13/2018 by Mk Alejandra MD at [facility] [employer] 05/26/2019 [id number] / / [id number] Procedures Procedure Name Priority Date/Time Associated Diagnosis Comments EGFR STAT 11/18/2021 3:26 PM [employer] LIPID PANEL Timed 03/28/2020 1:05 PM CDT COLONOSCOPY REPORT 07/01/2013 from Last 3 Months or Most Recently Relevant to Health Maintenance Results * eGFR (11/18/2021 3:26 PM DI[employer]) eGFR 73 mL/min/1. 73 m2 MAT FERREIRA [...] last reviewed 2021. Blood 11/18/2021 3:26 PM [employer] 11/18/2021 3:33 PM DI[employer] us Felisha Porter MD LAB BLOOD ORDERABLES Final Resu lt MAT FERREIRA [id number] Department [place] [address] * Lipid panel (03/28/2020 1:05 PM CDT) [...] LAB BLOOD ORDERABLES [place] [id number] Department of Laboratories [place] [id number] * COLONOSCOPY REPORT (07/01/2013) Anatomical Region Laterality Modality Other Narrative 07/01/2013 Ordered by an unspecified provider. Historical Provider GI PROCEDURE ORDERABLES F inal Result from Last 3 Months or Most Recently Relevant to Health Maintenance Insurance MEDICARE [facility] Address: [address] [address] [employer] SENIOR SUPPLEMENT MEDICARE [facility] [place] [employer] Advance Directives For more information, please contact: [phone] * Full Code (Latest Code Status on [...] 11:02 PM 10/01/2017 2:07 PM Care Teams Line Maintainer Relationship Specialty Start Date End Date Dante Collado MD [address] [address] PCP - General 09/10/17 [place] [id number] [address] Consulting Physician Cardiology 10/01/17
--- OUTSIDE RECORDS SUMMARY | 2025-03-07 10:52 | XMS_ITS | CONTINUITY OF CARE DOCUMENT ---
Author Name negin princessmikie Address Unknown Organization [facility] Address [address] [place] [address] Phone [phone] Care Team Providers Care Team Assistant Name Role Phone Juno Foley MD Unavailable GEORGE WALLACE MD Unavailable GEORGE WALLACE MD Unavailable [phone] PROBLEMS Condition Status Date Provider Notes Hyperkalemia active Razia Allan RN Abnormal nuclear stress test active Christiana Cox RN Other symptoms involving cardiovascular system completed - Mk Alejandra MD HTN essential active Juno Foley MD Shortness of breath active Juno Foley MD Cardiomyopathy active Juno Foley MD PVC's active Juno Foley MD LBBB active Mk bennett MD CHF active Mk bennett MD Ventricular tachycardia, nonsustained active Mk Alejandra MD Examination, preoperative cardiovascular completed - Mk Alejandra MD Shortness of breath completed - Mk Alejandra MD Fatigue active Vidal Hu [employer] Nausea/Vomiting active Vidal Hu [employer] Dizziness active Juno Foley MD Ventricular tachycardia, sustained active Mk Alejandra MD Chest pain-type to be determined active Juno Foley MD CAD, nonobstructive disease on cath 2017 active Juno Foley MD Panic attack? active Juno Foley MD Diabetes Mellitus, Type II, controlled w/vascular complications completed - Mk Alejandar MD Diabetes mellitus type II active Juno lott MD Syncope active Juno Foley MD Leg edema, bilateral active Mk Alejandra MD Urinary tract infection active Donte Alejandra MD S/P BiV ICD Biotronik//Genchange BiV ICD Biotronik 12/22/23 ( MRI Safe) active Estefanía Presley new RV lead 04/01/20, old RV lead capped S/P Medtronic (MRI Safe) REVEAL/LinQ completed - Puma Pelaez Mitral regurgitation active Mk Alejandra MD Obesity active Mk bennett MD Abnormal EKG active Juno Foley MD Sleep apnea--on C-pap active Juno Moody Preoperative cardiovascular examination active Juno Foley MD Hypothyroidism active Juno Foley MD Diverticulitis, colon active Juno Moody Hyperlipidemia active Juno Foley MD ENCOUNTERS Date Type Provider Location Encounter Diag nosis 8 - 8 In-person encounter Office Visit Juno Foley MD [facility] 4 - 4 In-person encounter Office Visit Juno Foley MD [facility] Chest pain-type to be determined 8 - 3 In-person encounter Office Visit Mk Alejandra MD [facility] Shortness of breathDiabetes Mellitus, Type II, controlled w/vascular complications 3 - 3 In-person encounter Office Visit Juno Foley MD [facility] 8 - 8 In-person encounter Office Visit Juno Foley MD [facility] 9 - 2 In-person encounter Office Visit Mk Alejandra MD [facility] 5 - 5 In-person encounter Office Visit Mk Alejandra MD [facility] 1 - 1 In-person encounter Office Visit Mk Alejandra MD [facility] 6 - 6 In-person encounter Office Visit Mk Alejandra MD [facility] 0 - 0 In-person encounter Office Visit Juno Foley MD [facility] 5 - 5 In-person encounter Office Visit Juno Foley MD [facility] 1 - 1 In-person encounter Office Visit Juno Foley MD [facility] 4 - 4 In-person encounter Office Visit Juno Foley MD [facility] Panic attack?CAD, nonobstructive disease on cath 2017 4 - 6 In-person encounter Office Visit Juno Foley MD [facility] 0 - 0 In-person encounter Office Visit Juno Foley MD [facility] 7 - 7 In-person encounter Office Visit Juno Foley MD [facility] Panic attack? 0 - 2 In-person encounter Office Visit Juno Foley MD [facility] 4 - 4 In-person encounter Office Visit Juno Foley MD [facility] 4 - 7 In-person encounter Office Visit Juno Foley MD [facility] 2 - 2 In-person encounter Office Visit Juno Foley MD [facility] 6 - 6 In-person encounter Office Visit Juno Foley MD [facility] 4 - 4 In-person encounter Office Visit Juno Foley MD [facility] 6 - 6 In-person encounter Office Visit Mk Alejandra MD [facility] Office S/P Medtronic (MRI Safe) REVEAL/LinQ 3 - 3 In-person encounter Office Visit Mk Alejandra MD [facility] 6 - 6 In-person encounter Office Visit Mk Alejandra MD [facility] 5 - 6 In-person encounter Office Visit Mk Alejandra MD [facility] 3 - 3 In-person encounter Office Visit Mk Alejandra MD [facility] 4 - 5 In-person encounter Office Visit Mk Alejandra MD [facility] 8 - 3 In-person encounter Office Visit Mk Alejandra MD [facility] 1 - 1 In-person encounter Office Visit Mk Alejandra MD [facility] 0 - 0 In-person encounter Office Visit Juno Foley MD [facility] SyncopeDiabetes mellitus type II 8 - 4 In-person encounter Office Visit Juno Foley MD [facility] 0 - 0 In-person encounter Office Visit Mk Alejandra MD [facility] Leg edema, bilateral 6 - 2 In-person encounter Office Visit Mk Alejandra MD [facility] Urinary tract infection 4 - 4 In-person encounter Office Visit Mk Alejandra MD [facility] 9 - 9 In-person encounter Office Visit Mk Alejandra MD [facility] 7 - 7 In-person encounter Office Visit Mk Alejandra MD [facility] 0 - 0 In-person encounter Office Visit Juno Foley MD [facility] 0 - 0 In-person encounter Office Visit Mk Alejandra MD [facility] S/P BiV ICD Biotronik//Genchange BiV ICD Biotronik 12/22/23 ( MRI Safe) 6 - 6 In-person encounter Office Visit Emmy Pham MD [facility] 0 - 5 In-person encounter Office Visit Mk Alejandra MD [facility] Examination, preoperative cardiovascular 1 - 4 In-person encounter Office Visit Mk Alejandra MD [facility] 1 - 1 In-person encounter Office Visit Juno Foley MD [facility] 4 - 4 In-person encounter Office Visit Mk Alejandra MD [facility] Ventricular tachycardia, sustained 1 - 1 In-person encounter Office Visit Juno Foley MD [facility] 0 - 1 In-person encounter Office Visit Juno Foley MD [facility] Dizziness 6 - 6 In-person encounter Office Visit Mk Alejandra MD [facility] 9 - 9 In-person encounter Office Visit Mk Alejandra MD [facility] 2 - 7 In-person encounter Office Visit Mk Alejandra MD [facility] 4 - 6 In-person encounter Office Visit Edin Suresh DO [facility] 8 - 8 In-person encounter Office Visit Juno Foley MD [facility] 2 - 2 In-person encounter Office Visit Mk Alejandra MD [facility] 1 - 6 In-person encounter Office Visit Mk Alejandra MD [facility] 5 - 5 In-person encounter Office Visit Mk Alejandra MD [facility] FatigueNausea/Vomiting 2 - 2 In-person encounter Office Visit Mk Alejandra MD [facility] 7 - 7 In-person encounter Office Visit Juno Foley MD [facility] 4 - 7 In-person encounter Office Visit Mk Alejandra MD [facility] Other symptoms involving cardiovascular systemObesityLBBBMitral regurgitationCHFVentricular tachycardia, nonsustained 3 - 3 In-person encounter Office Visit Juno Foley MD [facility] CardiomyopathyPVC's 0 - 0 In-person encounter Office Visit Juno Foley MD [facility] HyperlipidemiaHTN essentialDiverticulitis, colonHypothyroidismPreoperative cardiovascular examinationSleep apnea--on [...] lder weight E&M 145 [lb_av] Qi Flores [facility] height E&M 60 [in_i] Qi Flores [facility] Body Mass Index (Ratio) 28.90 kg/m2 Onur Foley MD blood pressure, diastolic 89 mm[Hg] Yasmin shirley [place] blood pressure, systolic 127 mm[Hg] [facility], oximetry 95 % [facility] pulse rate 103 /min [facility] respiratory rate E&M 12 /min [facility] weight E&M 148 [lb_av] [facility] height E&M 60 [in_i] [facility] blood pressure, cuff size regular An chloeG[facility]hen [facility] Hospital blood pressure, diastolic -1 mm[Hg] Cailin nkLog blood pressure, systolic 129 mm[Hg] Snehal kLog Body Mass Index (Ratio) 29.49 kg/m2 Barrett Bradleyzai blood pressure, diastolic 79 mm[Hg] Jessica yla [facility] blood pressure, systolic 129 mm[Hg] Radha la [facility] blood pressure, cuff size regular Jessica yla [facility] pulse rate 82 /min Tania [facility] oxygen saturation, oximetry 96 % Tania [facility] weight E&M 151 [lb_av] Tania [facility] height E&M 60 [in_i] Tania [facility] Body Mass Index (Ratio) 29.88 kg/m2 Onur Foley MD blood pressure, cuff size regular Matheus Diana blood pressure, diastolic 82 mm[Hg] Ta elvis Diana blood pressure, systolic 132 mm[Hg] Tab ithabby Diana oxygen saturation, oximetry 97 % Jordynabby Diana pulse rate 75 /min Jordyn [place] weight E&M 153 [lb_av] Jordyn [place] respiratory rate E&M 12 /min Jordyn [place] height E&M 60 [in_i] Jordyn [place] Body Mass Index (Ratio) 29.53 kg/m2 Onur Foley MD pulse rate 74 /min [facility] blood pressure, cuff size large Matheus leal [place] blood pressure, diastolic 78 mm[Hg] [facility], systolic 124 mm[Hg] [facility] oxygen saturation, oximetry 96 % [facility] respiratory rate E&M 12 /min [facility] weight E&M 151.2 [lb_av] [facility] height E&M 60 [in_i] Jordyn [place] Body Mass Index (Ratio) 29.49 kg/m2 [facility] blood pressure, cuff size regular Ja [facility] blood pressure, diastolic 76 mm[Hg] [facility] blood pressure, systolic 128 mm[Hg] [facility] pulse rate 62 /min [facility] oxygen saturation, oximetry 99 % [facility] respiratory rate E&M 14 /min [facility] weight E&M 151 [lb_av] [facility] height E&M 60 [in_i] [facility] y Body Mass Index (Ratio) 29.88 kg/m2 Barrett rae blood pressure, cuff size regular Ke rri [facility] blood pressure, diastolic 80 mm[Hg] [...] [lb_av] Janelle Crawford height E&M 60 [in_i] Janlele Crawford Body Mass Index (Ratio) 30.39 kg/m2 [...] /min Amadeo foster weight E&M 178.4 [lb_av] Aamdeo benedict height E&M 60 [in_i] [...] blood pressure, cuff size regular Kr isty Nuevo blood pressure, diastolic 90 mm[Hg] Kr isty Nuevo blood pressure, systolic 120 mm[Hg] Kri sty Nuevo pulse rate 78 /min Luda Soy oxygen [...] pressure, diastolic, left arm 6 mm[ Hg] [facility], systolic, left arm 100 mm [Hg] blood pressure, diastolic, right arm 60 m m[Hg] blood pressure, systolic, right arm 100 m m[Hg] blood pressure, diastolic 60 mm[Hg] Ki blood pressure, systolic 100 mm[Hg] Sue khan Reading oxygen saturation, oximetry 97 % Morgan respiratory rate E&M 16 /min pulse rate 61 /min Morgan weight E&M 214 [lb_av] Morgan height E&M 60 [in_i] [facility] Body Mass Index (Ratio) 41.59 kg/m2 [...] er height E&M 60 [in_i] Qi Gruenenfe [facility] Body Mass Index (Ratio) 40.62 kg/m2 Donte Alejandra MD blood pressure, cuff size large Ke rri Akshatneannabelhca [facility] blood pressure, diastolic 70 mm[Hg] Ke rri Gruenenfelder blood pressure, systolic 130 mm[Hg] Rosa Maria Landaverdeuenenfelder oxygen saturation, oximetry 97 % Qi Odenneannabelelder respiratory rate E&M 20 /min Qi Harvey agyenenfelder pulse rate 70 /min Qi Odenneannabele [facility] weight E&M 208 [lb_av] Qi Toroe [facility] height E&M 60 [in_i] Qi Munae [...] Body Mass Index (Ratio) 40.03 kg/m2 Willy [facility] blood pressure, cuff size [...] pressure, systolic 120 mm[Hg] Rosa Maria ri Munacentral [facility] cent[facility] oxygen saturation, oximetry 98 % Qi Torohca [facility] respiratory rate E&M 20 /min Qi Gabriel frankykamhca [facility] pulse rate 70 /min Qi Flores er weight E&M 202 [lb_av] Qi Flores er height E&M 60 [in_i] Qi Flores er Body Mass Index (Ratio) 39.84 kg/m2 Chivo Pham MD pulse rate 68 /min [facility] saturation, oximetry 97 % Jesús [facility] Hospitalkarie blood pressure, diastolic 70 mm[Hg] Isael Phillips blood pressure, systolic 112 mm[Hg] Sujata Phillips respiratory rate E&M 16 /min Jesús [facility] Hospitalcrowmescalero service unitfrancisco weight E&M 204 [lb_av] [facility] height E&M 60 [in_i] [facility] Body Mass Index (Ratio) 40.03 kg/m2 Cuauhtemoc Shipley blood pressure, diastolic 60 mm[Hg] Ki lleen Morgan blood pressure, systolic 112 mm[Hg] Kil bill Morgan oxygen saturation, oximetry 98 % [place] [facility] respiratory rate E&M 16 /min [place] pulse rate 73 /min Andrea weight E&M 205 [lb_av] [place] height E&M 60 [in_i] [place] Body Mass Index (Ratio) 39.84 kg/m2 [...] blood pressure, diastolic 80 mm[Hg] Julien goins Soy blood pressure, systolic 116 mm[Hg] Demetria villegas Soy respiratory rate E&M 17 /min Luda Soy blood pressure, cuff size regular Julien goins Soy weight E&M 204 [lb_av] Luda Soy pulse rate 72 /min Luda Nuevo oxygen saturation, oximetry 98 % Luda Nuevo height E&M 60 [in_i] Luda Nuevo Body Mass Index (Ratio) 40.62 kg/m2 Donte [...] khan Morgan oxygen saturation, oximetry 93 % [place] respiratory rate E&M 16 /min Andrea Morgan pulse rate 16 /min weight E&M 204 [lb_av] height E&M 60 [in_i] [facility] Body [facility] Index (Ratio) 40.03 kg/m2 Donte Alejandra MD blood pressure, cuff size regular Ke rri Mally blood pressure, diastolic 72 mm[Hg] Ke rri Mally blood pressure, systolic 118 mm[Hg] Rosa Maria Bal oxygen saturation, oximetry 98 % Qi Bal respiratory rate E&M 18 /min Qi rangel pulse rate 70 /min Qi Flores [facility] weight E&M 205 [lb_av] Qi Flores er height E&M 60 [in_i] Qi Flores [facility] Body Mass Index (Ratio) 38.08 kg/m2 Mee Martini NP blood pressure, diastolic 70 mm[Hg] Julien isty Soy blood pressure, systolic 110 mm[Hg] Julieni nelly Nuevo oxygen saturation, oximetry 98 % Luda Nuevo respiratory rate E&M 17 /min Luda Nuevo pulse rate 70 /min Luda Nuevo weight E&M 195 [lb_av] Luda Nuevo blood pressure, cuff size regular Kr isty Soy height E&M 60 [in_i] Luda Olivier Body Mass Index (Ratio) 38.47 kg/m2 Onur Foley MD blood pressure, diastolic 68 mm[Hg] Francisco chaidez Morgan blood pressure, systolic 112 mm[Hg] Sue Riberaam oxygen saturation, oximetry 98 % Andrea Morgan respiratory rate E&M 16 /min Andrea Morgan pulse rate 74 /min [place] weight E&M 197 [lb_av] Andrea Morgan height E&M 60 [in_i] Andrea Reading Body Mass Index (Ratio) 37.49 kg/m2 Donte Alejandra MD respiratory rate E&M 19 /min Marie Burnett blood pressure, diastolic 70 mm[Hg] Matheus hoover Burnett blood pressure, systolic 112 mm[Hg] Omalley evita Burnett pulse rate 75 /min Marie [place] oxygen saturation, oximetry 98 % [facility] blood pressure, cuff size regular Matheus hoover [place] weight E&M 192 [lb_av] Marie Burnett height E&M 60 [in_i] [facility] Body Mass Index (Ratio) 38.66 [...] Benitez oxygen saturation, oximetry 95 % Erinn Beintez respiratory rate E&M 16 /min Erinn Benitez [...] LinkLogic 3.5-5.2 sodium, serum 141 mmol/L LinkLogic [phone]/05 /15 urea nitrogen/creatinine ratio, serum 20 LinkLogic [...] 3.5-5.2 sodium, serum 144 mmol/L [phone]/10 /24 urea nitrogen/creatinine ratio, serum 18 LinkLogic [...] Not Estab. platelet count 155 X10E3/UL LinkLogic [phone]/10 /24 red blood cell distribution width 12.7 [...] 3.5-5.2 High sodium, serum 144 mmol/L LinkLogic [phone]/01 /31 urea nitrogen/creatinine ratio, serum 17 LinkLogic [...] LinkLogic 3.5-5.2 sodium, serum 141 mmol/L LinkLogic [phone]/11 /28 urea nitrogen/creatinine ratio, serum 18 LinkLogic [...] Not Estab. platelet count 203 X10E3/UL LinkLogic [phone]/11 /28 red blood cell distribution width 14.4 [...] LinkLogic 3.5-5.2 sodium, serum 140 mmol/L LinkLogic [phone]/10 /12 urea nitrogen/creatinine ratio, serum 17 LinkLogic [...] Not Estab. platelet count 219 X10E3/UL LinkLogic [phone]/06 /06 red blood cell distribution width 13.7 [...] 3.5-5.2 High sodium, serum 142 mmol/L LinkLogic [phone]/06 /06 urea nitrogen/creatinine ratio, serum 22 LinkLogic [...] percentage of total cells, blood 0.2 % [facility] - nucleated red blood cells as percent of blood leukocytes 0.3 % [facility] - red blood cell (erythrocyte) count, [...] - 3.9 mean platelet volume 13.8 (?) [facility] - platelet count 169.0 THOUSAND/UL LinkLogic [...] percentage of total cells, blood 0.1 % [facility] - mean corpuscular volume, RBC 94.0 fL LinkLog 75.0 - 100.0 hematocrit, blood 43.7 % [facility] 35.0 - 55.0 hemoglobin, blood 13.6 g/dL LinkLog 11.5 - 16.5 erythrocyte count, whole blood 4.7 MILLION/UL LinkLog 3.5 - 5.5 trichomonas vaginalis, urine None seen LinkLog urine crystals, microscopic None seen [facility] casts, urine, microscopic None seen [facility] mucus on urinalysis None seen [facility] Not Estab. nucleated red blood cells as percent of blood leukocytes 0.0 % [facility] - red blood cell (erythrocyte) count, per high power field 0.0 10*3/UL [facility] - eosinophils as percent of blood leukocytes 3.0 % [facility] - neutrophils as percent of blood leukocytes 57.7 % [facility] - Absolute Neutrophils 4.1 CELLS/UL LinkLog 1.5 - 7.8 basophils as percent of blood leukocytes 0.7 % [facility] - Absolute Basophils 0.1 CELLS/UL LinkLogic 0.0 - 0.2 monocytes as percent of blood leukocytes 14.3 % [facility] - Absolute Monocytes 1.0 CELLS/UL LinkLog 0.2 - 1.0 High lymphocytes as percent of blood leukocytes 24.2 % [facility] - Absolute Lymphocytes 1.7 CELLS/UL LinkLogic 0.9 - 3.9 mean platelet volume 13.6 (?) [facility] - platelet count 145.0 THOUSAND/UL LinkLog [...] 10 days - Jesús Phillips VITAMIN D3 [id number] UNIT ORAL TABLET completed TAKE ONE TAB [...] social history E&M S moking History: Caterina bset has never smoked. Juno Foley MD social [...] smoking status Never smoker Rachel Breen in [employer] social history reviewed E&M revi ewed - no changes required Rachel Bautista NP social history reviewed E&M revi ewed - no changes required Juno Foley MD smoking status Never smoker [employer]adeo [employer] smoking status Never smoker Vanessa Sahra social history reviewed E&M revi ewed - no changes required Tania Gmoez NP smoking status Never smoker Natalia luo [...] MD smoking status Never smoker [facility] social history reviewed E&M revi ewed - no changes required Puma Benigno smoking status Never smoker [facility]adeo [facility] social history reviewed E&M revi ewed [...] required Juno Foley MD alcohol counseling yes [place] I ngram alcohol use, average drinks per day 4+ Andrea Morgan alcohol use yes [place] Morgan smoking status Never smoker [place] Ingra m number of grandchildren Juno Foley [...] use, average drinks per day 4+ Luda Nuevo alcohol use yes Luda Soy smoking status [...] day 4+ Andrea Morgan alcohol use yes [place] Morgan smoking status Never smoker Andrea Riberaa m alcohol counseling yes Qi howellfelder alcohol use, average drinks per day 4+ Qi Odenmarileeer alcohol use yes Qi Hernandezkhushi lder smoking status Never smoker Qi naqvi number of grandchildren Mk Drake Hu [employer] alcohol counseling yes Luda Bu sby alcohol use, average drinks per day 4+ Luda Nuevo alcohol use yes Luda Soy smoking status Never smoker Luda Nuevo number of grandchildren Juno Foley MD U nicole Foley MD social history reviewed E&M revi ewed - no changes required Juno Foley MD social history reviewed E&M revi ewed - no changes required Mk Alejandra MD smoking status Never smoker [facility] social history E&M S moking History: Caterina best has never smoked. [facility] social history reviewed E&M revi ewed - no changes required [facility] Leda alcohol counseling yes Qi Branch vadim alcohol use, average drinks per day 4+ Qi Ozer alcohol use yes Qi Hernandezannabelnathan lder social history reviewed E&M revi ewed - no changes required Mk Alejandra MD alcohol counseling yes Vidal Hu [employer] alcohol use, average drinks per day 4+ Vidal Hu [employer]ER alcohol use yes Vidal Hu [employer]ER smoking status Never smoker Vidal Hu [employer]SEM[employer]ER number of grandchildren Mk Ellsworth social history [...] Osmin [place] number of grandchildren Mk Solorio [facility] social history E&M Smoking Histo ry: P atlakeisha has never smoked. Osmin [facility] social history reviewed E&M revi [...] Payer name Policy type / Coverage type [place] [facility] ID [place] Medicare [id number] ADVANCE DIRECTIVES Name Date DISCUSSED - NO DECISION MADE TREATMENT PLAN Date Name Performer [id number],B, Juno Foley MD [id number],C,seen on last echo Juno Foley MD [id number],C,last echo EF 60% Juno Foley MD [id number],C,p er PCP, she will start jardiance for renal protection l ast A1c 5.5% Juno Foley MD [id number],S, Juno Foley MD [id number],C, H er updated medication list for this problem includes: Crestor 20 Mg Tablet (Rosuvastatin) ..... Take 1 tablet once a day Juno Foley MD [id number],C, B P today: 120/79 P rior BP: 114/78 (08/16/2022) Labs Reviewed: C reat: 0.91 (03/10/2021) C hol: 211 (11/26/2018) HDL: 60 (11/26/2018) Her updated medication list for this problem includes: Sotalol 80 Mg Tablet (Sotalol) ..... Take 0.5 tablet by mouth twice a day Juno Foley MD [id number],B, Juno Foley MD [id number],B,I will repeat her echo in a month or so. She is on Entresto and Crestor. She also has a defibrillator Juno Foley MD [id number],S, Juno Foley MD [id number],B, Juno Foley MD [id number],S, Juno Foley MD [id number],S, Juno Foley MD [id number],S, A ppears stable. No chest pain. Continues on crestor. Her updated medication list for this problem includes: Sotalol 80 Mg Tablet (Sotalol) ..... Take 0.5 tablet once a day Juno Foley MD [id number],S, s he hasn't been using cpap at night Juno Foley MD [id number],S, I 'm going to cut her crestor to 20mg - I don't think she needs such a high dose since she has only mild CAD. Her updated medication list for this problem includes: Crestor 20 Mg Tablet (Rosuvastatin) ..... Take 1 tablet once a day Juno Foley MD [id number],S, N o recurrence K 4.4. 06/19/21 Juno Foley MD [id number],S, B P today: 101/59 P rior BP: 135/78 (11/19/2021) Her updated medication list for this problem includes: Sotalol 80 Mg Tablet (Sotalol) ..... Take 0.5 tablet once a day Juno Foley MD [id number],S, C lincally well compensated and is without shortness of breath. Continues on Entresto 49-51mg dose. Last EF was 60-65%. Juno Foley MD [id number],S, s /p BIV ICD, no recent events or shocks Juno Foley MD [id number],S, A 1C 5.5 Her updated medication list for this problem includes: Ozempic 0.25 Mg Or 0.5 Mg(2 Mg/1.5 Ml) Pen Injector (Semaglutide) ..... Once a week as directed Entresto 24-26 Mg Tablet (Sacubitril-valsartan) ..... 1 tablet by mouth twice a day Glipizide 5 Mg Tablet Extended Release 24hr (Glipizide) ..... Take 1 tablet by mouth once a day Rachel Bautista NP [id number],S, E F 60~65% on last echo. Rachel Bautista NP [id number],S, C lincally well compensated and is without shortness of breath. Continues on Entresto 49-51mg dose today. Rachel Bautista NP [id number],S, T he patient is using CPAP on a regular basis. The patient has been benefiting from therapy and should continue use. Rachel Bautista NP [id number],S, E pisode in September 2017 leading to shock by defibrillator. No recurrence. Rachel Bautista HALEY [id number],W, P rescribed Buspar by PCP. Recommend neurology evaluation. Rachel Bautista HALEY [id number],S, H er updated medication list for this problem includes: Tricor 145 Mg Tablet (Fenofibrate nanocrystallized) ..... 1 tablet once a day Crestor 40 Mg Tablet (Rosuvastatin) ..... 1 tablet once a day Rachel Bautista HALEY [id number],S, B P today: 135/78 P rior BP: 110/79 (10/05/2021) Her updated medication list for this problem includes: Sotalol 80 Mg Tablet (Sotalol) ..... Take 0.5 tablet once a day Rachel Jerel DE LEON [id number],C, T he patient is using CPAP on a regular basis. The patient has been benefiting from therapy and should continue use. Juno Foley MD [id number],C, N o recurrence K 4.4. 06/19/21 Juno Foley MD [id number],C, H er updated medication list for this problem includes: Tricor 145 Mg Tablet (Fenofibrate nanocrystallized) ..... 1 tablet once a day Crestor 40 Mg Tablet (Rosuvastatin) ..... 1 tablet once a day Juno Foley MD [id number],C, s /p BIV ICD, no recent events or shocks Juno Foley MD [id number],C, B P today: 110/79 P rior BP: 130/80 (06/22/2021) Labs Reviewed: C reat: 0.91 (03/10/2021) C hol: 211 (11/26/2018) HDL: 60 (11/26/2018) Her updated medication list for this problem includes: Sotalol 80 Mg Tablet (Sotalol) ..... Take 0.5 tablet once a day Juno Foley MD [id number],B, C lincally well compensated and is without shortness of breath. Continues on Entresto 49-51mg dose today. Juno Foley MD [id number],B, E F 60~65% on last echo. Juno Foley MD [id number],S, Rachel brian STEM ASSEMBLER [id number],B, Rachel brian STEM ASSEMBLER [id number],N,P rescribed Buspar by PCP. Feels better. Rachel Bautista NP [id number],B,resolved Abhinav Bautista NP [id number],S, Juno Foley MD [id number],B,on last echo. Juno Foley MD [id number],C,will repeat b mp. Juno Foley MD [id number],C,T his may be a vasovagal attack, but [...] medical condition(s) listed above for the patient. [facility]:No signs of decompensation This visit has been a part of the consistent, comprehensive, and ongoing management of the chronic medical condition(s) listed above for the patient. [facility]:This visi t has been a part of the consistent, comprehensive, and ongoing management of the chronic medical condition(s) listed above for the patient. Her updated medication list for this problem includes: Jardiance 10 Mg Tablet (Empagliflozin) Ozempic 0.25 Mg Or 0.5 Mg(2 Mg/1.5 Ml) Pen Injector (Semaglutide) ..... Once a week as directed [facility]:Cath 2017 I MPRESSION: 1 . Mild pulmonary hypertension. 2 . Severe LV dysfunction. 3 . Moderate nonobstructive CAD. 4 . No significant renal artery stenosis. This visit has been a part of the consistent, comprehensive, and ongoing management of the chronic medical condition(s) listed above for the patient. [facility]:This visi t has been a [...] (Semaglutide) ..... Once a week as directed [facility] wo und check : l ast echo EF 60% [facility] Electrophysiology wo und check : C lincally well compensated and is without shortness of breath. Continues on Entresto 24-26 mg dose. Last EF was 60-65%. [facility] Electrophysiology wo und check : P rior BP: 112/80 (12/12/2023) Labs Reviewed: C reat: 0.91 (03/10/2021) C hol: 211 (11/26/2018) HDL: 60 (11/26/2018) LDL: 116 (11/26/2018) T (11/26/2018) Her updated medication list for this problem includes: Sotalol 80 Mg Tablet (Sotalol) ..... Take 0.5 tablet by mouth twice a day [facility] Electrophysiology: H er updated medication list for this problem includes: Ozempic 0.25 Mg Or 0.5 Mg(2 Mg/1.5 Ml) Pen Injector (Semaglutide) ..... Once a week as directed [facility] Electrophysiology:Pt denies any CP or SOB. [facility] Electrophysiology: B P today: 112/80 P rior BP: 118/72 (09/05/2023) Labs Reviewed: C reat: 0.91 (03/10/2021) C hol: 211 (11/26/2018) HDL: 60 (11/26/2018) LDL: 116 (11/26/2018) T (11/26/2018) Her updated medication list for this problem includes: Sotalol 80 Mg Tablet (Sotalol) ..... 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 No recurrence. 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 BP stable, pt feels much better Her updated medication list for this problem includes: Aspir-81 81 Mg Oral Tablet Delayed Release (Aspirin) ..... Take one tablet daily Sotalol 80mg Tablets (Sotalol hcl) ..... 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 R V 94%, LV94% N o AF/AT/VT. 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 No recurrence. Tania Marin Patricia DE LEON Cardiology follow up UQ STEM ASSEMBLER :K 4. 6 . Cr. 0.91 Tania Gomez STEM ASSEMBLER Cardiology follow up UQ STEM ASSEMBLER :A1C 5.5 H er updated medication list [...] Cardiology:Repeat gaston best was taken off of [facility] in the hospital Juno Foley MD Cardiology:The [...] twice daily Juno Foley MD Cardiology:Continues on [facility] Juno Foley MD Cardiology:Increased Entresto to 49-51mg [...] Foley MD Cardiology:Advised t o remain on [facility] at this time and not to restrict [...] revision. Most recent device check: 05/05/2020 AT/AF [place]: 0% % Pacing: RV Pacing- 98% RA Pacing- 0% LV P acing- 98% Juno Foley MD Cardiology:Will swit ch from Lisinopril to Entresto. Will check a BMP in one month. Juno Foley MD Electrophysiology:no rmal device function w ell healing scar [facility] Cardiology follow up :normal device fucntion w ell healing scar [facility] Cardiology:normal de vice function w ell healing scar [facility] Electrophysiology:wi ll need lead replacement in 3 months after she had fully healed [facility] Electrophysiology: H er updated medication list for this problem includes: Lisinopril 5 Mg Oral Tablet (Lisinopril) ..... One tab. daily Aspir-81 81 Mg Oral Tablet Delayed Release (Aspirin) ..... Take one tablet daily Sotalol 80mg Tablets (Sotalol hcl) ..... Take 1 tablet by mouth twice daily [facility] Electrophysiology: H er updated medication list for [...] lead replacement. Pt agrees with this plan [facility] Electrophysiology:Di scussed need for new LV lead replacement [facility] Electrophysiology: B P today: 126/88 P rior [...] tab. twice daily Orders: C omplete Echo (CPT-13234) C omplete Echo (CPT-18377) X -Ray, Chest - Routine (CPT-04139) X -Ray, Chest - Routine (CPT-82951) Mk Alejandra MD Electrophysiology: H er updated medication list for this problem includes: Lisinopril 5 Mg Oral Tablet (Lisinopril) ..... One tab. daily Aspir-81 81 Mg Oral Tablet Delayed Release (Aspirin) ..... Take one tablet daily Sotalol Hcl 80 Mg Oral Tablet (Sotalol hcl) ..... One tab. twice daily Orders: E KG (CPT-93041) C omplete Echo (CPT-60333) X -Ray, Chest - Routine (CPT-14244) Mk Alejandra MD Cardiology:PAtient v milanaalizes that [...] chedule Followup (*) 9 9214 MOD Complex (CPT-00474) V enous Doppler Bilateral LE (CPT-87516) Mk Alejandra MD Electrophysiology Fo llow up : W ill check venous doppler BLE for DVT. W ill check CMP and d-dimer. S chedule CT chest with IV contrast IF d-dimer comes back positive. Hx of SOB and leg edema. Orders: C OMPREHENSIVE METABOLIC PANEL, W/EGFR (62321) D -DIMER, QUANTITATIVE (8659) L IPID PANEL (6940) V enous Doppler Bilateral LE (CPT-93943) S chedule Followup (*) 9 9214 MOD Complex (CPT-73505) Her updated medication list for this problem [...] PVCs/hr. Orders: C OMPREHENSIVE METABOLIC PANEL, W/EGFR (22620) D-DIMER, QUANTITATIVE (8659) L IPID PANEL (3390) S chedule Followup (*) 9 14 MOD Complex (CPT-84357) Her updated medication list for this problem includes: Lisinopril 2.5 Mg Oral Tablet (Lisinopril) ..... One tab. at night Aspir-81 81 Mg Oral Tablet Delayed Release (Aspirin) ..... Take one tablet daily Sotalol Hcl 80 Mg Oral Tablet (Sotalol hcl) ..... One tab. twice daily Mk Alejandra MD Electrophysiology Ho spital Follow up : O rders: U RINALYSIS, COMPLETE W/REFLEX TO CULTURE (3888) Her updated medication list for this problem [...] One tab. twice daily Orders: E KG (CPT-29871) 9 9214 MOD Complex (CPT-85202) C omplete Echo (CPT-82737) Mk Alejandra MD Electrophysiology Ho spital Follow up : O rders: 9 9214 MOD Complex (CPT-52505) C omplete Echo (CPT-59981) Her updated medication list for this problem [...] 04/21/17. D evice check 06/10/18 shows 89% DINKEY MOTOR OPERATOR, 78% BiVP. No SVT. Her updated medication [...] Orders: A BLATION w/ Anesthesia (*) 9 9254 LTD. Complex (CPT-45640) Schedule Followup (*) Her updated medication list [...] 05/15/18 shows EF 35%. Orders: E KG (CPT-95014) 9 9274 MOD Complex (CPT-12000) S chedule Followup (*) Her updated medication [...] Fo llow up :Orders: 9213 MOD Complex (CPT-67813) S chedule Followup (*) Her updated medication [...] 04/21/17. D evice check 06/10/18 shows 89% DINKEY MOTOR OPERATOR, 78% BiVP. No SVT. Her updated medication [...] anesthesia in the next few months at [facility]. P atient to take 5mg Coumadin daily for 7 days prior to procedure. Orders: 9213 MOD Complex (CPT-90709) S chedule Followup (*) A BLATION w/ [...] 04/21/17. D evice check 06/10/18 shows 89% DINKEY MOTOR OPERATOR, 78% BiVP. No SVT. F ollowup with [...] daily Juan Davidmichi Lane Electrophysiology [facility] Ariana Electrophysiology Ho spital Follow up :Normal [...] INR (8847) C OMPREHENSIVE METABOLIC PANEL W/EGFR (06812) U RINALYSIS, COMPLETE W/REFLEX TO CULTURE (3020) [...] Oxide 400mg one tablet twice daily Mk Alejadnra MD Electrophysiology Ho spital Follow up : [...] Follow up : O rders: S NOMED-CT: [id number] Current Medications Documented ([facility]-[id number]) E KG (CPT-15855) G lobal No Charge (CPT-67598) F VC - 59396 (16991) F RC - 41055 (20917) D LCO - 18469 (22141) Her updated medication list for this problem [...] up : O rders: D O - 79934 (77000) [facility]) Her updated medication list for this problem includes: Spironolactone 25 Mg Oral Tablet (Spironolactone) ..... Half tablet daily Carvedilol 6.25 Mg Oral Tablet (Carvedilol) ..... One tab. twice daily Enalapril Maleate 20 Mg Oral Tablet (Enalapril maleate) ..... One tab. daily Saulius Kalvaitis MD Electrophysiology Ho spital Follow up :improved on amiodarone O rders: Harvey saleh No Charge (CPT-07285) S vesta Followup (*) Her updated medication list for this problem includes: Amiodarone Hcl 200 Mg Oral Tablet (Amiodarone hcl) ..... Take one pill a day Carvedilol 6.25 Mg Oral Tablet (Carvedilol) ..... One tab. twice daily Enalapril Maleate 20 Mg Oral Tablet (Enalapril maleate) ..... One tab. daily Mk Alejandra MD Electrophysiology - NP:s/p biv icd Vidal Hu STEM ASSEMBLER Cardiology:Having surgery to rem ove part of [...] (Enalapril maleate) ..... One tab. daily [facility]23/[facility]/17:Her updated medication [...] schedule EP study after her cath. [facility] EP faxed 01/23/17:Her updated medication list for this problem includes: Carvedilol 6.25 Mg Tabs (Carvedilol) ..... One tab. twice daily Enalapril Maleate 20 Mg Tabs (Enalapril maleate) ..... One tab. daily Magnesium Oxide 400 Mg Oral Tabs (Magnesium oxide) .... One tablet twice daily <--- Starting today Os[facility] Cardiology:[place] [address] ectopics 6.8% of total beats. Will schedule [...] Duplex Bilat eral Complete Echo DLCO - 68000 FRC - 84734 FVC - 19199 MAGNESIUM COMPREHENSIVE METABO LIC PANEL, W/EGFR THYROID PANEL WITH T SH, 3RD GENERATION Complete Echo DLCO - 81224 FRC - 71566 FVC - 14031 Complete Echo URINALYSIS, COMPLETE W/REFLEX TO CULTURE [...] Juno Foley MD INTERROGATION REMOTE </90 D BALANCER REVIEW completed AICD Interrogation, Remote (Prof) Juno [...] Juno Foley MD INTERROGATION REMOTE </90 D BALANCER REVIEW completed AICD Interrogation, Remote (Prof) Juno [...] jc MD completed FVC / MVV - 67905 Mk davila MD completed FRC - 24652 Mk jc MD completed SpO2 w/o 6min walk/titration Mk Alejandra MD completed DLCO - 02548 Mk jc MD completed EKG Mk jc [...] REMOTE </30 D TECH REVIEW completed SNOMED-CT: 98105685 Physical Exam, Performed: Pulse Exam of Foot Juno Foley MD completed SNOMED-CT: 911399199544487 Current Medications Documented Juno Foley MD completed EKG Mk jc MD completed EKG Juno Foley MD completed EKG Mk jc MD completed SNOMED-CT: 746812287816604 Current Medications Documented Mk Alejandra MD completed EKG Mk jc MD completed SNOMED-CT: 066941548749366 Current Medications Documented Mk Alejandra MD completed FVC / MVV - 16302 Mk davila MD completed FRC - 91282 Mk jc MD completed SpO2 - 00057 Mk jc MD completed DLCO - 15052 Mk jc MD completed ICM Interrogation, Remote (Prof) Juno Foley MD INTERROGATION EVAL REMOTE </30 D CV MNTR SYS completed ICM Interrogation, Remote (Tech) Juno Foley MD INTERROGATION EVAL REMOTE </30 D TECH REVIEW completed Schedule Followup Mk davila MD in 3 weeks completed EKG Mk jc MD completed SNOMED-CT: 939623694303254 Current Medications Documented Mk Alejandra MD completed ICM Interrogation, Remote (Prof) Juno Foley MD INTERROGATION EVAL REMOTE </30 D CV MNTR SYS completed ICM Interrogation, Remote (Tech) Juno Foley MD INTERROGATION EVAL REMOTE </30 D TECH REVIEW completed Schedule ICD Check Edin Jarrod ck DO completed Schedule Followup Edin Glascoc k DO 6 months completed EKG Edin Lorenzanacock DO completed SNOMED-CT: 959812030151440 Current Medications Documented Edin Lorenzanacock DO completed ICM Interrogation, Remote (Prof) Juno Foley MD INTERROGATION EVAL REMOTE </30 D CV MNTR SYS completed ICM Interrogation, Remote (Tech) Juno Foley MD INTERROGATION EVAL REMOTE </30 D TECH REVIEW completed SNOMED-CT: 65674632 Physical Exam, Performed: Pulse Exam of Foot Juno Foley MD completed SNOMED-CT: 805179744258726 Current Medications Documented Juno Foley MD completed EKG Mk jc MD completed SNOMED-CT: 112560626768563 Current Medications Documented Mk Alejandra MD completed EKG Mk jc MD completed SNOMED-CT: 521221064440844 Current Medications Documented Mk Alejandra MD completed Schedule Followup Mk davila MD 3 months completed SNOMED-CT: 193074746725780 Current Medications Documented Mk Alejandra MD completed EKG Mk jc MD completed Loop Recorder Interrogation, Remote Juno Foley MD INTERROGATION EVALUATION REMOTE </30 D ILR SYS completed ICM Interrogation, Remote (Tech) Juno Foley MD INTERROGATION EVAL REMOTE </30 D TECH REVIEW completed EKG Mk jc MD completed SNOMED-CT: 481090675304269 Current Medications Documented Mk Alejandra MD completed Protime Juno Foley MD completed Protime Juno Foley MD completed SNOMED-CT: 01516497 Physical Exam, Performed: Pulse Exam of Foot Juno Foley MD completed SNOMED-CT: 814497389290564 Current Medications Documented Juno Foley MD completed EKG Mk jc MD completed SNOMED-CT: 569607697683130 Current Medications Documented Mk Alejandra MD completed SNOMED-CT: 30077089 Physical Exam, Performed: Pulse Exam of Foot Juno Foley MD completed SNOMED-CT: 865845104510351 Current Medications Documented Juno Foley MD completed Stress EKG Emmy Pham MD completed Regadenoson, 4 units Juno Foley MD completed Cardiolite, 2 units Juno Foley MD completed SPECT Images Emmy Pham MD complet ed EKG Juno Foley MD completed SNOMED-CT: 430479466704359 Current Medications Documented Juno Foley MD completed
--- OUTSIDE RECORDS SUMMARY | 2025-03-07 10:52 | XMS_ITS | Referral Summary ---
Author Organization [facility] al Address [address] [place] [address] Care Team Providers Care Shoulder Sawyer Name Role Phone Dante Collado MD Primary Care Provide r Mk Alejandra MD Unavailable [phone] Allergies Active Allergy Reactions Criticality Noted Date [...] (01/17/2021): Added automatically from request for surgery [id number] Troponin level elevated 03/29/2020 Defibrillator discharge 03/28/2020 [...] on file Legal Sex Female 7:03 PM MANAGER DRILLING Gender Identity Not on file Sexual Orientation Not on file Last Filed Vital Signs Vital Sign Reading Time Taken Comments Blood Pressure 120/81 09/05/2022 8:37 AM MANAGER DRILLING Pulse 66 09/05/2022 8:37 AM MANAGER DRILLING Temperature 36.4 C (97.5 F) 11/18/2021 2:14 PM MANAGER DRILLING Respiratory Rate 25 11/18/2021 6:20 PM MANAGER DRILLING Oxygen Saturation 100% 11/18/2021 6:20 PM MANAGER DRILLING Inhaled Oxygen Concentration - - Weight 66 kg (145 lb 6.4 oz) 09/05/2022 8:37 AM MANAGER DRILLING Height 154.9 cm (5' 1 ) 09/05/2022 8:37 AM MANAGER DRILLING Body Mass Index 27.47 09/05/2022 8:37 AM MANAGER DRILLING Plan of Treatment Not on file Medical Devices Implanted Type Area Ground Control Approach Technician Device Identifier Shelf Expiration Date Model / Serial / Lot [employer] [id number] Solia S 45cm Bipolar Active Fixation Lead Pacing Steroid Eluting - [id number] - [id number] Implanted:Qty: 1 on 09/22/2019 by Mk Alejandra MD at [facility] Lead [employer] [id number] 06/26/2021 [id number] / [id number] / Lead Icd Sentus Promri Left Ventricular Otw Quadripolar L-85/49 - [id number] - [id number] Implanted:Qty: 1 on 04/09/2018 by Mk Alejandra MD at [facility] [employer] 12/25/2019 [id number] / [id number] / [employer] [id number] Angio-Seal Vip Bondek-Plus 8fr .038in 70cm Hemostatic Latex Free - [id number] Implanted:Qty: 1 on 10/13/2018 by Mk Alejandra MD at [facility] [employer] 05/26/2019 [id number] / / [id number] Procedures Procedure Name Priority Date/Time Associated Diagnosis Comments EGFR STAT 11/18/2021 3:26 PM MANAGER DRILLING LIPID PANEL Timed 03/28/2020 1:05 PM CDT COLONOSCOPY REPORT 07/01/2013 from Last 3 Months or Most Recently Relevant to Health Maintenance Results * eGFR (11/18/2021 3:26 PM MANAGER DRILLING) eGFR 73 mL/min/1. 73 m2 MAT FERREIRA [...] last reviewed 2021. Blood 11/18/2021 3:26 PM MANAGER DRILLING 11/18/2021 3:33 PM MANAGER DRILLING us Felisha Porter MD LAB BLOOD ORDERABLES Final Resu lt MAT FERREIRA [address] [place] [address] * Lipid panel (03/28/2020 1:05 [...] LAB BLOOD ORDERABLES F inal Result MAT [address] [address] Department of Laboratories [place] [id number] * COLONOSCOPY REPORT (07/01/2013) Anatomical Region Laterality Modality Other Narrative 07/01/2013 Ordered by an unspecified provider. [facility] Provider GI PROCEDURE ORDERABLES F inal Result from Last 3 Months or Most Recently Relevant to Health Maintenance Insurance MEDICARE AETNA SENIOR SUPPLEMENT MEDICARE AETNA SENIOR SUPPLEMENT MEDICARE AETNA Advance Directives For more information, please contact: [phone] * Full Code (Latest Code Status on [...] 11:02 PM 10/01/2017 2:07 PM Care Teams Shoulder Sawyer Relationship Specialty Start Date End Date Dante Collado MD [address] [facility] [address] [place] [address] PCP - General 09/10/17 [place] [id number] [place] [address] Consulting Physician Cardiology 10/01/17
--- OUTSIDE RECORDS SUMMARY | 2025-03-07 10:52 | XMS_ITS | Continuity of Care Document ---
Author Organization [facility] Address [address] [place] [address] [address] [place] [address] Phone Care Team Providers Care Riverboat Master Name Role Phone Jessica Reece Unavailable Unavailable Procedures Procedure Date Office/outpatient Visit, Est Advance Directives Directive Yes / No Effective Date File Name No Information Encounters Encounter Description Practice Location Reason(s) For Visit Diagnoses Date Provider Providers Copied on Encounter Office/outpat ient Visit, Est [facility], [address] [place] [address] [address], [place], [place], [id number], [place] tel:[phone] [facility] No Information 8-201 0 Shanell Lopez. [address] , [address], [place], [address], [place]. tel:[phone] Family History Family Member Type Diagnosis Age [...]
--- OUTSIDE RECORDS SUMMARY | 2025-03-07 10:52 | XMS_ITS | Clinical Summary ---
Author Organization [facility] [employer] Address [address] [place] [address] Care Team Providers Care Chemistry Laboratory Technician Name Role Phone Duglas Collado MD Primary Care Provider Source Comments [facility]university hospital Affiliates and Associated Physician Practices is amultiple site organization consisting of ambulatory clinics and hospital sitesin [place], [place], [place] and [place]. This disclosure is being madepursuant to the Care Everywhere program and may not contain all information available regarding this patient. Last updated 18.[facility] [employer] Allergies Active Allergy Reactions Criticality Noted Date Comments Codeine Nausea and/or Vomiting,Vomiting Medium 05/27 Meperidine Nausea and/or Vomiting,Vomiting Medium 05/27 Medications * Be aware that medications may not be up to date on this document. Alwaysverify current medications with the patient. loratadine (CLARITIN) 10 MG tablet Take 10 mg by mouth once daily 9 Active vitamin D, ergocalciferol, (DRISDOL) 1.25 MG (53589 UT) capsule Take 50,000 Units by mouth [...] on file Legal Sex Female 7:00 PM ENGLISH COMPOSITION INSTRUCTOR Gender Identity Not on file Sexual Orientation Not on file Last Filed Vital Signs Vital Sign Reading Time Taken Comments Blood Pressure 110/68 10/28/2019 2:58 PM ENGLISH COMPOSITION INSTRUCTOR Pulse 77 10/28/2019 2:58 PM ENGLISH COMPOSITION INSTRUCTOR Temperature 36.7 C (98.1 F) 10/28/2019 2:58 PM ENGLISH COMPOSITION INSTRUCTOR Respiratory Rate 18 10/28/2019 2:58 PM ENGLISH COMPOSITION INSTRUCTOR Oxygen Saturation 96% 10/28/2019 2:58 PM ENGLISH COMPOSITION INSTRUCTOR Inhaled Oxygen Concentration - - Weight 87.2 kg (192 lb 4.8 oz) 10/28/2019 2:58 P M ENGLISH COMPOSITION INSTRUCTOR Height 165.1 cm (5' 5 ) 10/28/2019 2:58 PM ENGLISH COMPOSITION INSTRUCTOR Body Mass Index 32 10/28/2019 2:58 PM ENGLISH COMPOSITION INSTRUCTOR Plan of Treatment Health Maintenance Due Date [...] ID:Not on file (Home) Address: [address] [place] [address] Payer ID:Not on file Group ID:Not on file Type:Self Pay Address: [place], [place] * Guarantor: KATHERYN PHILLIPS Account Type Relation to Patient Date of Phone Billing Address Personal/Family [address] [place] [address] MEDICARE AETNA Member Subscriber Plan / Payer (Ef fective for All Dates) Name:Katheryn Phillips Member ID:Not on file Relation to Subscriber:Self Name:Katheryn Phillips Subscriber ID:Not on file Payer ID:[id number] (NAIC) Group ID:[id number] Type:Commercial Address: [address] * Guarantor: KATHERYN PHILLIPS Account Type Relation to Patient Date of Phone Billing Address Personal/Family [address] [address] MEDICARE AETNA Member Subscriber Plan / Payer (Ef fective for All Dates) Name:Katheryn Phillips Member ID:Not on file Relation to Subscriber:Self Name:Katheryn Phillips Subscriber ID:Not on file Payer ID:[id number] (NAIC) Group ID:[id number] Type:Commercial Address: [address] * Guarantor: KATHERYN PHILLIPS Account Type Relation to Patient Date of Phone Billing Address Personal/Family [address] [place] [address] MEDICARE AETNA Care Teams Chemistry Laboratory Technician Relationship Specialty Start Date End Date Duglas Collado MD [address] [address] PCP - General Internal Medicine 07/16/19
--- OUTSIDE RECORDS SUMMARY | 2025-03-07 10:52 | XMS_ITS | Clinical Summary ---
Author Organization [facility] Address [address] [facility] [address] [place] [address] Phone Care Team Providers Care Mental Health Program Director Name Role Phone Duglas Collado MD Primary [...] Comments Blood Pressure 104/71 2024 2:17 PM PROCESS CONTROL MANAGER Pulse 91 2024 2:17 PM PROCESS CONTROL MANAGER Temperature 36.9 C (98.4 F) 2024 2:17 PM PROCESS CONTROL MANAGER Respiratory Rate 15 2024 2:17 PM PROCESS CONTROL MANAGER Oxygen Saturation 95% 2024 2:17 PM PROCESS CONTROL MANAGER Inhaled Oxygen Concentration - - Weight 69.3 kg (152 lb 12.8 oz) 2024 2:17 PM PROCESS CONTROL MANAGER Height 152.4 cm (5') 04/25/2022 11:38 AM CDT Body Mass Index 29.84 04/25/2022 11:38 AM CDT Plan of Treatment Upcoming Encounters Date Type Department Care Team (Late st Contact Info) Description 04/12/2025 11:00 AM CDT Office Visit [facility] Oncology and Hematology [facility] [address] [facility] [address] [place] [address] Brandon Willis MD [address] [facility] [address] [place] [address] Health Maintenance Due Date Last [...] , 09/19/2019 Medical Devices Implanted Type Area Director Operations Broadcast Device Identifier Shelf Expiration Date Model / Serial / Lot Lap Band,Bilat Knee Replacement Implanted:(Quantit y not on file) Explanted:(Quantit y not on file) Insurance MEDICARE PART A AND B AETNA MEDICARE SUPP AESSI MEDICARE PART A AND B [place] [address] Advance Directives For more information, please contact: [phone] * Full Code (Latest Code Status on File) Date Activated Date Inactivated Comments 07/05/2014 8:17 AM 07/05/2014 11:32 AM * Full Code Date Activated Date Inactivated Comments 07/05/2014 6:54 AM 07/05/2014 8:17 AM Care Teams Mental Health Program Director Relationship Specialty Start Date End Date Duglas Collado MD PCP - General Internal Medicine 03/27/22
== END 2025-03-07 10:44 | disposition home or self-care (01) ==
PROVIDERS: PCP Internal Medicine; Visit Provider Surgery
DX: R92.8 Other abnormal and inconclusive findings on diagnostic imaging of breast (principal); C50.911 Malignant neoplasm of unspecified site of right female breast; C50.919 Malignant neoplasm of unspecified site of unspecified female breast; Z98.82 Breast implant status
CPT/HCPCS: 71250

== ENCOUNTER 2025-03-23 10:20 | Outpatient (CLI) | payer MEDICARE, SELFPAY ==
--- NOTE | ~2025-03-23 | CT_ITS ---
Non-contrast CT scan of the Abdomen Clinical indication: Abdominal hernia Technique: 2.5 mm axial scans were obtained through the abdomen without intravenous or oral contrast . Dose reduction technique was used on this scan by utilizing automated exposure control and iterativ e reconstruction technique. The dose-length product (DLP) was 172.64 mGy-cm. COMPARISON: 02/25/2025 Findings: Images through the lung bases reveal calcified granulomas and small pericardial effusion. There is no evidence of renal or ureteral calculi. The kidneys and the ureters are nondilated. The liver, spleen, pancreas, gallbladder, and adrenals appear normal. There are atherosclerotic calci fications of the aorta. Gastric lap band in place. Visualized bowel loops are otherwise unremarkable. No ascites. There is a 2.4 x 1.5 cm probable cystic mass in the midline of the anterior abdominal region (axial i mage 87). Impression: 2.4 x 1.5 cm cystic rounded mass in the midline of the anterior abdominal wall. This could reflect se migue or other cystic lesion. Small pericardial effusion. Reviewed, dictated and finalized at location M. Impression: 2.4 x 1.5 cm cystic rounded mass in the midline of the anterior abdominal wall. This could reflect seroma or other cystic lesion. Small pericardial effusion.
--- OUTSIDE RECORDS SUMMARY | 2025-03-23 10:29 | XMS_ITS | Referral Summary ---
Author Organization [facility] Address [address] [place] [address] Care Team Providers Care Dashboard Developer Name Role Phone Dante Collado MD Primary [...] (01/17/2021): Added automatically from request for surgery [id number] Troponin level elevated 03/29/2020 Defibrillator discharge 03/28/2020 [...] on file Legal Sex Female 7:03 PM AUDIO VISUAL ENGINEER Gender Identity Not on file Sexual Orientation Not on file Last Filed Vital Signs Vital Sign Reading Time Taken Comments Blood Pressure 120/81 09/05/2022 8:37 AM AUDIO VISUAL ENGINEER Pulse 66 09/05/2022 8:37 AM AUDIO VISUAL ENGINEER Temperature 36.4 C (97.5 F) 11/18/2021 2:14 PM AUDIO VISUAL ENGINEER Respiratory Rate 25 11/18/2021 6:20 PM AUDIO VISUAL ENGINEER Oxygen Saturation 100% 11/18/2021 6:20 PM AUDIO VISUAL ENGINEER Inhaled Oxygen Concentration - - Weight 66 kg (145 lb 6.4 oz) 09/05/2022 8:37 AM AUDIO VISUAL ENGINEER Height 154.9 cm (5' 1) 09/05/2022 8:37 AM AUDIO VISUAL ENGINEER Body Mass Index 27.47 09/05/2022 8:37 AM AUDIO VISUAL ENGINEER Plan of Treatment Not on file Medical Devices Implanted Type Area Ground Services Instructor Device Identifier Shelf Expiration Date Model / Serial / Lot [employer] [id number] Solia S 45cm Bipolar Active Fixation Lead Pacing Steroid Eluting - [id number] - [id number] Implanted:Qty: 1 on 09/22/2019 by Mk Alejandra MD at [facility] Lead [employer] [id number] 06/26/2021 [id number] / [id number] / Lead Icd Sentus Promri Left Ventricular Otw Quadripolar L-85/49 - [id number] - [id number] Implanted:Qty: 1 on 04/09/2018 by Mk Alejandra MD at [facility] [employer] 12/25/2019 [id number] / [id number] / [employer] [id number] Angio-Seal Vip Bondek-Plus 8fr .038in 70cm Hemostatic Latex Free - [id number] Implanted:Qty: 1 on 10/13/2018 by Mk Alejandra MD at [facility] [employer] 05/26/2019 [id number] / / [id number] Procedures Procedure Name Priority Date/Time Associated Diagnosis Comments EGFR STAT 11/18/2021 3:26 PM AUDIO VISUAL ENGINEER LIPID PANEL Timed 03/28/2020 1:05 PM CDT COLONOSCOPY REPORT 07/01/2013 from Last 3 Months or Most Recently Relevant to Health Maintenance Results * eGFR (11/18/2021 3:26 PM AUDIO VISUAL ENGINEER) eGFR 73 mL/min/1. 73 m2 MAT FERREIRA [...] last reviewed 2021. Blood 11/18/2021 3:26 PM AUDIO VISUAL ENGINEER 11/18/2021 3:33 PM AUDIO VISUAL ENGINEER us Felisha Porter MD LAB BLOOD ORDERABLES Final Resu lt MAT FERREIRA [id number] Department [place] [address] * Lipid panel (03/28/2020 1:05 [...] LAB BLOOD ORDERAB[place] [id number] [address] Department of Laboratories [place] [id number] * COLONOSCOPY REPORT (07/01/2013) Anatomical Region Laterality Modality Other Narrative 07/01/2013 Ordered by an unspecified provider. [facility] Provider GI PROCEDURE ORDERABLES F inal Result from Last 3 Months or Most Recently Relevant to Health Maintenance Insurance MEDICARE AETNA SENIOR SUPPLEMENT MEDICARE AETNA SENIOR SUPPLEMENT MEDICARE AETNA Advance Directives For more information, please contact: [phone] * Full Code (Latest Code Status on [...] 11:02 PM 10/01/2017 2:07 PM Care Teams Dashboard Developer Relationship Specialty Start Date End Date Dante Collado MD [address] [facility] [address] [place] [address] PCP - General 09/10/17 [place] [address] [place] [address] Consulting Physician Cardiology 10/01/17
--- OUTSIDE RECORDS SUMMARY | 2025-03-23 10:29 | XMS_ITS | Continuity of Care Document ---
Author Organization [facility] Address [address] [place] [address] [address] [place] [address] Phone Care Team Providers Care Cutter Operator Name Role Phone Jessica Reece Unavailable Unavailable Procedures Procedure Date Office/outpatient Visit, Est Advance Directives Directive Yes / No Effective Date File Name No Information Encounters Encounter Description Practice Location Reason(s) For Visit Diagnoses Date Provider Providers Copied on Encounter Office/outpat ient Visit, [facility], [address] [place] [address] [address], [place], [place], [id number], [place] tel:[phone] [facility] No Information 8-[address] Shanell Lopez. [address] [facility] [address] [facility] [place] , [address], [place], [address], [place]. tel:[phone] Family History Family Member Type Diagnosis Age [...]
--- OUTSIDE RECORDS SUMMARY | 2025-03-23 10:29 | XMS_ITS | Clinical Summary ---
Author Organization [facility] Address [address] [place] [address] Care Team Providers Care Ticket Writer Name Role Phone Dante Collado MD Primary Care Provide r Mk Alejandra MD Unavailable [phone] Allergies Active Allergy Reactions Criticality Noted Date [...] (01/17/2021): Added automatically from request for surgery [id number] Troponin level elevated 03/29/2020 Defibrillator discharge 03/28/2020 [...] on file Legal Sex Female 7:03 PM PROGRAM/MUSIC DIRECTOR Gender Identity Not on file Sexual Orientation Not on file Obstetrics History Last Filed Vital Signs Vital Sign Reading Time Taken Comments Blood Pressure 120/81 09/05/2022 8:37 AM PROGRAM/MUSIC DIRECTOR Pulse 66 09/05/2022 8:37 AM PROGRAM/MUSIC DIRECTOR Temperature 36.4 C (97.5 F) 11/18/2021 2:14 PM PROGRAM/MUSIC DIRECTOR Respiratory Rate 25 11/18/2021 6:20 PM PROGRAM/MUSIC DIRECTOR Oxygen Saturation 100% 11/18/2021 6:20 PM PROGRAM/MUSIC DIRECTOR Inhaled Oxygen Concentration - - Weight 66 kg (145 lb 6.4 oz) 09/05/2022 8:37 AM PROGRAM/MUSIC DIRECTOR Height 154.9 cm (5' 1) 09/05/2022 8:37 AM PROGRAM/MUSIC DIRECTOR Body Mass Index 27.47 09/05/2022 8:37 AM PROGRAM/MUSIC DIRECTOR Plan of Treatment Health Maintenance Due Date Last Done Comments Albumin Creatinine Ratio, Urine 1950 Breast Cancer Screening-Mammogram 1950 Depression Screening 1950 Hemoglobin A1C 1950 Hepatitis C Screening 1950 Osteoporosis Screening-Bone Density Scan 1950 Dilated Eye Exam 1950 Foot Exam 1950 DTaP/Tdap/Td Vaccine (1 - Tdap) 1961 Hepatitis B Screening 1968 Zoster Vaccine (2 of 3) 09/23/2013 07/29/2013 Well Visit 65+ 2015 Lipid Panel 03/28/2021 03/28/2020, 1201/2017, 01/06/2017 Fall Risk Assessment 03/29/2021 03/29/2020 eGFR 11/18/2022 11/18/2021, 0601/2020, 03/28/2020, Additional history exists Colon Cancer Screening-Colonoscopy 07/01/2023 07/01/2013 Influenza Vaccine (Season Ended) 2025 08/27/2019, 08/09/2019, 08/08/2019, Additional history exists Colon Cancer Screening-CT Colonography Discontinued 07/01/2013 Colon Cancer Screening-DNA Stool Discontinued 07/01/20 Colon Cancer Screening-FIT Discontinued 07/01/2013 Colon Cancer Screening-Sigmoidoscopy Discontinued 07/01/2013 Pneumococcal vaccine 65+ Completed 09/17/2022, 08/28 Medical Devices Implanted Type Area Sports Leadership Instructor Device Identifier Shelf Expiration Date Model / Serial / Lot [employer] [id number] Solia S 45cm Bipolar Active Fixation Lead Pacing Steroid Eluting - [id number] - [id number] Implanted:Qty: 1 on 09/22/2019 by Mk Alejandra MD at [facility] Lead [employer] [id number] 06/26/2021 [id number] / [id number] / Lead Icd Sentus Promri Left Ventricular Otw Quadripolar L-85/49 - [id number] - [id number] Implanted:Qty: 1 on 04/09/2018 by Mk Alejandra MD at [facility] [employer] 12/25/2019 [id number] / [id number] / [employer] [id number] Angio-Seal Vip Bondek-Plus 8fr .038in 70cm Hemostatic Latex Free - [id number] Implanted:Qty: 1 on 10/13/2018 by Mk Alejandra MD at [facility] [employer] 05/26/2019 [id number] / / [id number] Procedures Procedure Name Priority Date/Time Associated Diagnosis Comments EGFR STAT 11/18/2021 3:26 PM PROGRAM/MUSIC DIRECTOR LIPID PANEL Timed 03/28/2020 1:05 PM CDT COLONOSCOPY REPORT 07/01/2013 from Last 3 Months or Most Recently Relevant to Health Maintenance Results * eGFR (11/18/2021 3:26 PM PROGRAM/MUSIC DIRECTOR) eGFR 73 mL/min/1. 73 m2 MAT FERREIRA [...] last reviewed 2021. Blood 11/18/2021 3:26 PM PROGRAM/MUSIC DIRECTOR 11/18/2021 3:33 PM PROGRAM/MUSIC DIRECTOR us Felisha Porter MD LAB BLOOD ORDERABLES Final Resu lt MAT FERREIRA [id number] Department [place] [address] * Lipid panel (03/28/2020 1:05 PM CDT) [...] LAB BLOOD [place] [id number] [address] [place] [address] * COLONOSCOPY REPORT (07/01/2013) Anatomical Region Laterality Modality Other Narrative 07/01/2013 Ordered by an unspecified provider. Historical Provider GI PROCEDURE ORDERABLES F inal Result from Last 3 Months or Most Recently Relevant to Health Maintenance Insurance MEDICARE AETNA SENIOR SUPPLEMENT MEDICARE [facility] MEDICARE AETNA Advance Directives For more information, please contact: [phone] * Full Code (Latest Code Status on [...] 11:02 PM 10/01/2017 2:07 PM Care Teams Ticket Writer Relationship Specialty Start Date End Date Dante Collado MD [address] [address] PCP - General 09/10/17 [place] [address] [address] Consulting Physician Cardiology 10/01/17
--- OUTSIDE RECORDS SUMMARY | 2025-03-23 10:29 | XMS_ITS | Data Portability ---
Author Organization [facility], Main Office Address [address] [place] [address] Care Team Providers Care Job Counselor Name Role Phone BRODY COLLADO Primary Care Provider BRODY COLLADO Referring Provider Assessment Encounter Date [...] This note is dictated and transcribed by [employer] Fluency Direct Software. Travograph Operator variances may occur. Despite proofreading, typographical errors may occur. [email or web address] Not available 06/03/2023 10:31:35 Plan of Treatment Reminders Order Date Submit Date Provider Last Modified By Organization Details Last Modified Time Details Appointments None recorded. Lab lipid panel, serum 2022 023 [email or web address] [facility] (Lab), [address] [place], [address], 4 13:54:50 CBC w/ auto diff [address] (Lab), [address] [place], [address], 4 13:54:50 TSH, serum or plasma [address] (Lab), [address] [place], [address], 4 13:54:50 T4, free, serum [address] (Lab), [address] [place], [address], 4 13:54:50 CMP, serum or plasma [address] (Lab), [address] [place], [address], 4 13:54:51 vitamin D, 25-hydroxy, total, serum [address] (Lab), [address] [place], [address], 4 17:14:48 glycohemogl obin, total, blood [address] (Lab), [address] [place], [address], 4 13:54:49 microalbumi n, urine [address] (Lab), [address] [place], [address], 4 13:54:50 lipid panel, serum 2022 023 [facility] (Lab), [address] [place], [address], 3 10:23:37 CBC w/ auto diff 2022 023 [facility] (Lab), [address] [place], [address], 3 10:29:24 TSH, serum or plasma 2022 023 [facility] (Lab), [address] [place], [address], 3 11:00:11 T4, free, serum 2022 023 [facility] (Lab), [address] [place], [address], 3 10:32:56 CMP, serum or plasma 2022 023 [facility] (Lab), [address] [place], [address], 3 10:23:48 glycohemogl obin, total, blood 2022 023 [facility] (Lab), [address] [place], [address], 3 12:21:03 microalbumi n, urine 2022 023 [facility] (Lab), [address] [place], [address], 3 10:27:[address] referral 2022 023 Not available 3 12:14:23 nephrologis t referral 2022 023 [email or web address] Deb Benavides MD, [address], [address], [place], [address], 4 17:05:18 hematologis t referral 2022 023 [email or web address] Willis MD, [address], [place], [address], 3 12:14:51 cardiologis t referral 2022 023 [email or web address], [address], [address], [place], [address], 3 12:16:17 hand surgeon referral 2022 023 [email or web address] Calderon MD, [address] [place], [address], 3 12:15:45 neurologist referral 2022 023 rio Hernandez MD, [address] [facility] , [facility] [address], [place], [address], 3 12:15:26 receiving tank operator referral 2022 023 [email or web address] Massimo Porter DPDouglas, [address], [address], [place], [address], 4 17:05:19 general surgeon referral 2022 023 [email or web address] Waddell MD, [address], [address], [place], [address], 3 12:16:47 neurologist referral 2022 023 rio Hernandez MD, 4 [facility] , [address], [place], [address], 3 11:01:11 nephrologis t referral 2022 023 rio Benavides MD, [address], [address], [place], [address], 3 17:44:[address] referral 2022 023 [email or web address] Not available 3 18:42:45 hematologis t referral 2022 023 [email or web address] Brandon Willis [facility], [address], [place], [address], 3 11:00:29 receiving tank operator referral 2022 023 [email or web address] Massimo Porter DPM, [address] [facility], [address], [place], [address], 3 17:43:46 hand surgeon referral 2022 023 [email or web address] Calderon MD, [address] [place], [address], 3 10:03:10 Procedures None recorded. Surgeries None recorded. Imaging MAMMO, screening, digital, bilateral 2022 023 [email or web address] [facility] ([facility]), [address] [place], [address], 4 17:05:28 DEXA, axial skeleton 2022 023 [email or web address] [facility] (Radiology), [address] [place], [address], 4 17:14:35 MAMMO, screening, digital, bilateral [email or web address]), [address] [place], [address], 3 12:09:29 Medication Orders None recorded. Patient TargetsNo targets recorded. Patient Instructions Encounter Date Encounter Id Patient Instructions Last Modified By Organization Details Last Modified Time 01/16/2023 [id number] diabetic eye exam* Not availa ble 07/24/2023 10:21:58 04/24/2023 [id number] dementia rating scale-2* miguel 2 Not available 04/24/2023 15:20:27 alcohol misuse* miguel 2 Not available 04/24/2023 15:20:27 depression screening* miguel 2 Not available 04/24/2023 15:20:27 Timed Up and Go test (TUG)* miguel 2 Not available 04/24/2023 15:20:26 multi-dimensiona l health assessment questionnaire* miguel 2 Not available 04/24/2023 15:20:26 Personalized a lt Plan and Screening Recommendations Advance Directives - Do you have one? No You have indicated that you are capable of preparing your advance care directive I recommend consulting with an Channeler Outsole, family member, or friend to assist you. Not interested at this time Advance Directives - Do we have your advance directive on file in your health record? Primary Prevention/Interven tion (prevents or decreases the chance of common diseases from occurring) Smoking Risk: Non Smoker Alcohol Misuse Screening: Negative Weight: Overweight try to lose 10% of your body weight Physical activity: Need more exercise/physical activity Nutrition: Average Refer to attached handout Heart-Healthy Diet: After Your Visit Refer to attached handout DASH Diet: After Your Visit Recommend consultation with a fieldwork coordinator Eat heart healthy diet Fall Risk (screened today): Low Vaccines Pneumococcal: No further needed Influenza: Your next one in the fall of this year Chronic Disease Risks Stroke: Intermediate Risk Active diagnosis, Continue current treatment plan Heart Attack: Intermediate Risk Active diagnosis, Continue current treatment plan Clogging of the Arteries: Intermediate Risk Active diagnosis, Continue current treatment plan Diabetes: Intermediate Risk Active diagnosis, Continue current treatment plan Secondary Prevention/Interven tion (detects treatable diseases before they may cause symptoms, disability, or ) Breast Cancer Screening with mammogram: Recommended today Cervical/Uterine/Ov tay Cancer Screening: No screening necessary Osteoporosis Screening: Recommended today Date Screening Last Performed: Colon Cancer Screening: Colonoscopy In: Ordered Recomme nded Recommended today, but you have declined No screening necessary due 06/2023 Date Screening Last Performed: __2012 Eye Disease Screening: Ordered Recommended today Recommended today, but you have declined No Eye exam necessary Your next exam in: goes yearly Dementia Risk: Low I have no recommendations Depression Screening: Negative Active diagnosis, Continue current treatment plan [email or web address] Not available 04/24/2023 14:37:41 Reason for Referral Sales Support Manager Referral for O bstructive sleep apnea syndrome Referring Physician: Brody Collado Internal Medicine, Encounter Date: 01/16/2023 Publications Production Supervisor 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 Referring Physician: Jessica Peña, Encounter Date: 01/16/2023 Hair Salon Manager Referral for Type 2 diabetes mellitus without complication Referring Physician: Jessica Peña, Encounter Date: 01/16/2023 Referring Physician: Jessica Peña, Encounter Date: 01/16/2023 Neurologist Referral for Tra nsient cerebral ischemia Referring Physician: Jessica Peña, Encounter Date: 01/16/2023 Hand Surgeon Referral for Pa in of left wrist Referring Physician: Jessica Peña, Encounter Date: 01/16/2023 Sales Support Manager Referral for O bstructive sleep apnea syndrome Referring Physician: Jessica Peña, Encounter Date: 04/24/2023 Publications Production Supervisor 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 Referring Physician: Jessica Peña, Encounter Date: 04/24/2023 Hair Salon Manager Referral for Type 2 diabetes mellitus without complication Referring Physician: Jessica Peña, Encounter Date: 04/24/2023 Referring Physician: Jessica Peña, Encounter Date: 04/24/2023 Neurologist Referral for Tra nsient cerebral ischemia Referring Physician: Jessica Peña Medicine, Encounter Date: 04/24/2023 Hand Surgeon Referral for Pa in of left wrist Referring Physician: Brody Collado Internal Medicine, Encounter Date: 04/24/2023 Flower Cutter Referral for Ne ar syncope Referring Physician: Brody Collado Internal Medicine, Encounter Date: 04/24/2023 General Surgeon Referral for Skin lesion Referring Physician: Brody Collado Internal Medicine, Encounter Date: 04/24/2023 Results Created Date Observation Date Name Description Value Unit Range Abnormal Flag Note LastModifiedBy Organization Detail LastModifiedTime 08/27/2008/27/2022 FOLAT E, SERUM /PLAS MA folate 5.98 NG/mL 2.76-2 0.0 Not Available [facility] (Lab) [address] [place], [address], 08/27/2022 18:44:29 08/27/20 22 08/27/2022 VITAM IN B12 (MADDY DOMENICA ) vb12 476 pg/mL 239-93 1 Not Available [facility] (Lab) [address] [place], [address], 08/27/2022 18:44:26 08/27/20 22 08/27/2022 MICRO ALBUM IN RANDO M URINE microalbumin , urine <6.0 mg/L 0.0-16 .6 Not Available [facility] (Lab) [address] [place], [address], 08/27/2022 18:09:51 08/27/20 22 08/27/2022 HEMOG LOBIN A1C HA1C 5.5 % 4.0-6. 0 Diabe harman Scree roma Crite adi: <5.7% Consi stent with absen ce of diabe harman 5.7-6 .4% Consi stent with incre ased risk for diabe harman (pred iabet es) >OR=6 .5% Consi stent with diabe harman REFER ENCE: Diabe harman Care 2016, 39(Arnold ppl.1 ):s13 -s22 Not Available [facility] (Lab) [address] [place], [address], 08/27/2022 15:07:49 08/27/20 22 08/27/2022 TSH thyroid-stim ulating hormone 1.980 uIU/m L 0.465- 4.680 Not Available [facility] (Lab) [address] [place], [address], 08/27/2022 13:44:58 08/27/20 22 08/27/2022 T4 FREE free T4 1.19 NG/dL 0.78-2 .19 Not Available [facility] (Lab) [address] [place], [address], 08/27/2022 13:31:42 08/27/20 22 08/27/2022 COMPR EHENS JONATHAN METAB OLIC PANEL sodium 138 mmol/ L 137-14 5 Not Available [facility] (Lab) [address] [place], [address], 08/27/2022 13:22:36 08/27/20 22 08/27/2022 COMPR EHENS JONATHAN METAB OLIC PANEL potassium 4.4 mmol/ L 3.5-5. 1 Not Available [facility] (Lab) [address] [place], [address], 08/27/2022 13:22:36 08/27/20 22 08/27/2022 COMPR EHENS JONATHAN METAB OLIC PANEL chloride 104 mmol/ L 98-107 Not Available [facility] (Lab) [address] [place], [address], 08/27/2022 13:22:36 08/27/20 22 08/27/2022 COMPR EHENS JONATHAN METAB OLIC PANEL carbon dioxide 31 mmol/ L 22-30 high Not Available [facility] (Lab) [address] [place], [address], 08/27/2022 13:22:36 08/27/20 22 08/27/2022 COMPR EHENS JONATHAN METAB OLIC PANEL anion gap 7.4 mmol/ L 14-22 low Not Available [facility] (Lab) [address] [facility] [place], [address], 08/27/2022 13:22:36 08/27/20 22 08/27/2022 COMPR EHENS JONATHAN METAB OLIC PANEL glucose 93 mg/dL 70-99 Not Available [facility] (Lab) [address] [place], [address], 08/27/2022 13:22:36 08/27/20 22 08/27/2022 COMPR EHENS JONATHAN METAB OLIC PANEL BUN 17 mg/dL 8-19 Not Available [facility] (Lab) [address] [place], [address], 08/27/2022 13:22:36 08/27/20 22 08/27/2022 COMPR EHENS JONATHAN METAB OLIC PANEL creatinine 0.97 mg/dL 0.66-1 .25 Not Available [facility] (Lab) [address] [place], [address], 08/27/2022 13:22:36 08/27/20 22 08/27/2022 COMPR EHENS JONATHAN METAB OLIC PANEL GFR 57 Refer ence Range : [place] ge GFR Healt hy Adult : >60 [...] calcu lator is avail able on the [facility] websi te: https ://ww w.kid ayla.o rg/pr ofess ional s/kdo qi/gf r_cal culat or Not Available [facility] (Lab) [address] [place], [address], 08/27/2022 13:22:36 08/27/20 22 08/27/2022 COMPR EHENS JONATHAN METAB OLIC PANEL alkaline phosphatase 63 U/L 38-126 Not Available [facility] (Lab) [address] [place], [address], 08/27/2022 13:22:36 08/27/20 22 08/27/2022 COMPR EHENS JONATHAN METAB OLIC PANEL alanine aminotransfe rase 5 U/L 0-35 Not Available [facility] (Lab) [address] [place], [address], 08/27/2022 13:22:36 08/27/20 22 08/27/2022 COMPR EHENS JONATHAN METAB OLIC PANEL aspartate aminotransfe rase 22 U/L 15-37 Not Available [facility] (Lab) [address] [place], [address], 08/27/2022 13:22:36 08/27/20 22 08/27/2022 COMPR EHENS JONATHAN METAB OLIC PANEL bilirubin, total 0.60 mg/dL 0.20-1 .30 Not Available [facility] (Lab) [address] [place], [address], 08/27/2022 13:22:36 08/27/20 22 08/27/2022 COMPR EHENS JONATHAN METAB OLIC PANEL calcium 9.8 mg/dL 8.4-10 .2 Not Available [facility] (Lab) [address] [place], [address], 08/27/2022 13:22:36 08/27/20 22 08/27/2022 COMPR EHENS JONATHAN METAB OLIC PANEL total protein 6.4 g/dL 6.3-8. 2 Not Available [facility] (Lab) [address] [place], [address], 08/27/2022 13:22:36 08/27/20 22 08/27/2022 COMPR EHENS JONATHAN METAB OLIC PANEL albumin 4.1 g/dL 3.0-4. 4 Not Available [facility] (Lab) [address] [place], [address], 08/27/2022 13:22:36 08/27/20 22 08/27/2022 COMPR EHENS JONATHAN METAB OLIC PANEL globulin 2.3 g/dL 2.6-4. 2 low Not Available [facility] (Lab) [address] [place], [address], 08/27/2022 13:22:36 08/27/20 22 08/27/2022 COMPR EHENS JONATHAN METAB OLIC PANEL A/G ratio 1.8 ratio 1.0-2. 0 Not Available [facility] (Lab) [address] [place], [address], 08/27/2022 13:22:36 08/27/20 22 08/27/2022 LIPID PANEL cholesterol 271 mg/dL 140-19 9 high NIH OSWALDO NSUS RECOM MENDA TION FOR PAWAN STERO L: ADULT CHILD LOW RISK: <200 <170 BORDE RLINE : <200- 239 ----- HIGH RISK: >240 >200 Not Available [facility] (Lab) [address] [place], [address], 08/27/2022 13:21:09 08/27/20 22 08/27/2022 LIPID PANEL triglyceride s 237 mg/dL 0-150 high NIH OSWALDO NSUS REPOR T RECOM MENDA TION FOR TRIGL YCERI ZORAIDA: ADULT CHILD LOW RISK: <150 ----- BODER LINE: 150-1 99 ----- HIGH RISK: >200 ----- Not Available [facility] (Lab) [address] [place], [address], 08/27/2022 13:21:09 08/27/20 22 08/27/2022 LIPID PANEL HDL cholesterol 55 mg/dL 40- Not Available [facility] (Lab) [address] [place], [address], 08/27/2022 13:21:09 08/27/20 22 08/27/2022 LIPID PANEL [...] WILL NOT BE REPOR RUI. Not Available [facility] (Lab) [address] [place], [address], 08/27/2022 13:21:09 08/27/20 22 08/27/2022 CBC/C OMPLE TE BLD COUNT W/DIF F white blood cells 7.2 x10'3 /uL 4.2-10 .8 Not Available [facility] (Lab) [address] [place], [address], 08/27/2022 13:09:09 08/27/20 22 08/27/2022 CBC/C OMPLE TE BLD COUNT W/DIF F red blood cells 4.43 x10'6 /uL 3.80-5 .20 Not Available [facility] (Lab) [address] [place], [address], 08/27/2022 13:09:09 08/27/20 22 08/27/2022 CBC/C OMPLE TE BLD COUNT W/DIF F hemoglobin 13.8 g/dL 12.0-1 5.6 Not Available [facility] (Lab) [address] [place], [address], 08/27/2022 13:09:09 08/27/20 22 08/27/2022 CBC/C OMPLE TE BLD COUNT W/DIF F hematocrit 42.9 % 35.7-4 5.7 Not Available [facility] (Lab) [address] [place], [address], 08/27/2022 13:09:09 08/27/20 22 08/27/2022 CBC/C OMPLE TE BLD COUNT W/DIF F mean red cell volume 96.8 fL 82.0-9 9.0 Not Available [facility] (Lab) [address] [place], [address], 08/27/2022 13:09:09 08/27/20 22 08/27/2022 CBC/C OMPLE TE BLD COUNT W/DIF F mean red cell hemoglobin 31.2 pg 27.0-3 3.0 Not Available [facility] (Lab) [address] [place], [address], 08/27/2022 13:09:09 08/27/20 22 08/27/2022 CBC/C OMPLE TE BLD COUNT W/DIF F mean RBC HGB concentratio n 32.2 g/dL 31.0-3 6.0 Not Available [facility] (Lab) [address] [place], [address], 08/27/2022 13:09:09 08/27/20 22 08/27/2022 CBC/C OMPLE TE BLD COUNT W/DIF F red cell distribution width 14.7 % 11.8-1 5.5 Not Available [facility] (Lab) [address] [facility] [place], [address], 08/27/2022 13:09:09 08/27/20 22 08/27/2022 CBC/C OMPLE TE BLD COUNT W/DIF F platelets 151 x10'3 /uL 150-40 0 Not Available [facility] (Lab) [address] [place], [address], 08/27/2022 13:09:09 08/27/20 22 08/27/2022 CBC/C OMPLE TE BLD COUNT W/DIF F mean platelet volume 13.0 fL 9.0-12 .4 high Not Available [facility] (Lab) [address] [place], [address], 08/27/2022 13:09:09 08/27/20 22 08/27/2022 CBC/C OMPLE TE BLD COUNT W/DIF F neutrophils 56.4 % 39.0-7 2.0 Not Available [facility] (Lab) [address] [place], [address], 08/27/2022 13:09:09 08/27/20 22 08/27/2022 CBC/C OMPLE TE BLD COUNT W/DIF F lymphocytes 24.8 % 16.0-4 7.0 Not Available [facility] (Lab) [address] [place], [address], 08/27/2022 13:09:09 08/27/20 22 08/27/2022 CBC/C OMPLE TE BLD COUNT W/DIF F monocytes 12.6 % 5.0-12 .0 high Not Available [facility] (Lab) [address] [place], [address], 08/27/2022 13:09:09 08/27/20 22 08/27/2022 CBC/C OMPLE TE BLD COUNT W/DIF F eosinophils 4.3 % 1.0-7. 0 Not Available [facility] (Lab) [address] [place], [address], 08/27/2022 13:09:09 08/27/20 22 08/27/2022 CBC/C OMPLE TE BLD COUNT W/DIF F basophils 1.5 % 0.0-2. 0 Not Available [facility] (Lab) [address] [place], [address], 08/27/2022 13:09:09 08/27/20 22 08/27/2022 CBC/C OMPLE TE BLD COUNT W/DIF F immature granulocytes 0.4 % 0.00-0 .50 Not Available [facility] (Lab) [address] [place], [address], 08/27/2022 13:09:09 08/27/20 22 08/27/2022 CBC/C OMPLE TE BLD COUNT W/DIF F neutrophils, absolute count 4.07 x10'3 /uL 1.5-8. 0 Not Available [facility] (Lab) [address] [place], [address], 08/27/2022 13:09:09 08/27/20 22 08/27/2022 CBC/C OMPLE TE BLD COUNT W/DIF F lymphocytes, absolute count 1.79 x10'3 /uL 1.07-3 .43 Not Available [facility] (Lab) [address] [place], [address], 08/27/2022 13:09:09 08/27/20 22 08/27/2022 CBC/C OMPLE TE BLD COUNT W/DIF F monocytes, absolute count 0.91 x10'3 /uL 0.29-0 .99 Not Available [facility] (Lab) [address] [place], [address], 08/27/2022 13:09:09 08/27/20 22 08/27/2022 CBC/C OMPLE TE BLD COUNT W/DIF F eosinophils, absolute count 0.31 x10'3 /uL 0.02-0 .53 Not Available [facility] (Lab) [address] [place], [address], 08/27/2022 13:09:09 08/27/20 22 08/27/2022 CBC/C OMPLE TE BLD COUNT W/DIF F basophils, absolute count 0.11 x10'3 /uL 0.01-0 .08 high Not Available [facility] (Lab) [address] [place], [address], 08/27/2022 13:09:09 08/27/20 22 08/27/2022 CBC/C OMPLE TE BLD COUNT W/DIF F immature granulocytes ,absolute 0.03 x10'3 /uL 0.00-0 .05 Not Available [facility] (Lab) [address] [place], [address], 08/27/2022 13:09:09 08/27/20 22 08/27/2022 CBC/C OMPLE TE BLD COUNT W/DIF F nucleated red blood cells 0.0 % -0 Not Available [facility] (Lab) [address] [place], [address], 08/27/2022 13:09:09 08/27/20 22 08/27/2022 CBC/C OMPLE TE BLD COUNT W/DIF F NRBC# 0.00 x10'3 /uL Not Available [facility] (Lab) [address] [place], [address], 08/27/2022 13:09:09 01/16/20 23 01/15/2023 CBC/C OMPLE TE BLD COUNT W/DIF F white blood cells 9.4 x10'3 /uL 4.2-10 .8 Not Available [facility] (Lab) [address] [place], [address], 01/15/2023 12:06:22 01/16/20 23 01/15/2023 CBC/C OMPLE TE BLD COUNT W/DIF F red blood cells 4.46 x10'6 /uL 3.80-5 .20 Not Available [facility] (Lab) [address] [place], [address], 01/15/2023 12:06:22 01/16/20 23 01/15/2023 CBC/C OMPLE TE BLD COUNT W/DIF F hemoglobin 13.7 g/dL 12.0-1 5.6 Not Available [facility] (Lab) [address] [place], [address], 01/15/2023 12:06:22 01/16/20 23 01/15/2023 CBC/C OMPLE TE BLD COUNT W/DIF F hematocrit 43.4 % 35.7-4 5.7 Not Available [facility] (Lab) [address] [place], [address], 01/15/2023 12:06:22 01/16/20 23 01/15/2023 CBC/C OMPLE TE BLD COUNT W/DIF F mean red cell volume 97.3 fL 82.0-9 9.0 Not Available [facility] (Lab) [address] [place], [address], 01/15/2023 12:06:22 01/16/20 23 01/15/2023 CBC/C OMPLE TE BLD COUNT W/DIF F mean red cell hemoglobin 30.7 pg 27.0-3 3.0 Not Available [facility] (Lab) [address] [place], [address], 01/15/2023 12:06:22 01/16/20 23 01/15/2023 CBC/C OMPLE TE BLD COUNT W/DIF F mean RBC HGB concentratio n 31.6 g/dL 31.0-3 6.0 Not Available [facility] (Lab) [address] [place], [address], 01/15/2023 12:06:22 01/16/20 23 01/15/2023 CBC/C OMPLE TE BLD COUNT W/DIF F red cell distribution width 13.8 % 11.8-1 5.5 Not Available [facility] (Lab) [address] [place], [address], 01/15/2023 12:06:22 01/16/20 23 01/15/2023 CBC/C OMPLE TE BLD COUNT W/DIF F platelets 147 x10'3 /uL 150-40 0 low Not Available [facility] (Lab) [address] [place], [address], 01/15/2023 12:06:22 01/16/20 23 01/15/2023 CBC/C OMPLE TE BLD COUNT W/DIF F mean platelet volume 12.2 fL 9.0-12 .4 Not Available [facility] (Lab) [address] [place], [address], 01/15/2023 12:06:22 01/16/20 23 01/15/2023 CBC/C OMPLE TE BLD COUNT W/DIF F neutrophils 65.6 % 39.0-7 2.0 Not Available [facility] (Lab) [address] [place], [address], 01/15/2023 12:06:22 01/16/20 23 01/15/2023 CBC/C OMPLE TE BLD COUNT W/DIF F lymphocytes 17.1 % 16.0-4 7.0 Not Available [facility] (Lab) [address] [place], [address], 01/15/2023 12:06:22 01/16/20 23 01/15/2023 CBC/C OMPLE TE BLD COUNT W/DIF F monocytes 12.3 % 5.0-12 .0 high Not Available [facility] (Lab) [address] [place], [address], 01/15/2023 12:06:22 01/16/20 23 01/15/2023 CBC/C OMPLE TE BLD COUNT W/DIF F eosinophils 3.8 % 1.0-7. 0 Not Available [facility] (Lab) [address] [place], [address], 01/15/2023 12:06:22 01/16/20 23 01/15/2023 CBC/C OMPLE TE BLD COUNT W/DIF F basophils 0.9 % 0.0-2. 0 Not Available [facility] (Lab) [address] [place], [address], 01/15/2023 12:06:22 01/16/20 23 01/15/2023 CBC/C OMPLE TE BLD COUNT W/DIF F immature granulocytes 0.3 % 0.00-0 .50 Not Available [facility] (Lab) [address] [place], [address], 01/15/2023 12:06:22 01/16/20 23 01/15/2023 CBC/C OMPLE TE BLD COUNT W/DIF F neutrophils, absolute count 6.15 x10'3 /uL 1.5-8. 0 Not Available [facility] (Lab) [address] [place], [address], 01/15/2023 12:06:22 01/16/20 23 01/15/2023 CBC/C OMPLE TE BLD COUNT W/DIF F lymphocytes, absolute count 1.60 x10'3 /uL 1.07-3 .43 Not Available [facility] (Lab) [address] [place], [address], 01/15/2023 12:06:22 01/16/20 23 01/15/2023 CBC/C OMPLE TE BLD COUNT W/DIF F monocytes, absolute count 1.15 x10'3 /uL 0.29-0 .99 high Not Available [facility] (Lab) [address] [place], [address], 01/15/2023 12:06:22 01/16/20 23 01/15/2023 CBC/C OMPLE TE BLD COUNT W/DIF F eosinophils, absolute count 0.36 x10'3 /uL 0.02-0 .53 Not Available [facility] (Lab) [address] [place], [address], 01/15/2023 12:06:22 01/16/20 23 01/15/2023 CBC/C OMPLE TE BLD COUNT W/DIF F basophils, absolute count 0.08 x10'3 /uL 0.01-0 .08 Not Available [facility] (Lab) [address] [place], [address], 01/15/2023 12:06:22 01/16/20 23 01/15/2023 CBC/C OMPLE TE BLD COUNT W/DIF F immature granulocytes ,absolute 0.03 x10'3 /uL 0.00-0 .05 Not Available [facility] (Lab) [address] [place], [address], 01/15/2023 12:06:22 01/16/20 23 01/15/2023 CBC/C OMPLE TE BLD COUNT W/DIF F nucleated red blood cells 0.0 % -0 Not Available [facility] (Lab) [address] [place], [address], 01/15/2023 12:06:22 01/16/20 23 01/15/2023 CBC/C OMPLE TE BLD COUNT W/DIF F NRBC# 0.00 x10'3 /uL Not Available [facility] (Lab) [address] [place], [address], 01/15/2023 12:06:22 01/16/20 23 01/15/2023 COMPR EHENS JONATHAN METAB OLIC PANEL sodium 140 mmol/ L 137-14 5 Not Available [facility] (Lab) [address] [place], [address], 01/15/2023 12:24:31 01/16/20 23 01/15/2023 COMPR EHENS JONATHAN METAB OLIC PANEL potassium 4.3 mmol/ L 3.5-5. 1 Not Available [facility] (Lab) [address] [place], [address], 01/15/2023 12:24:31 01/16/20 23 01/15/2023 COMPR EHENS JONATHAN METAB OLIC PANEL chloride 106 mmol/ L 98-107 Not Available [facility] (Lab) [address] [place], [address], 01/15/2023 12:24:31 01/16/20 23 01/15/2023 COMPR EHENS JONATHAN METAB OLIC PANEL carbon dioxide 27 mmol/ L 22-30 Not Available [facility] (Lab) [address] [place], [address], 01/15/2023 12:24:31 01/16/20 23 01/15/2023 COMPR EHENS JONATHAN METAB OLIC PANEL anion gap 11.3 mmol/ L 14-22 low Not Available [facility] (Lab) [address] [place], [address], 01/15/2023 12:24:31 01/16/20 23 01/15/2023 COMPR EHENS JONATHAN METAB OLIC PANEL glucose 112 mg/dL 70-99 high Not Available [facility] (Lab) [address] [place], [address], 01/15/2023 12:24:31 01/16/20 23 01/15/2023 COMPR EHENS JONATHAN METAB OLIC PANEL BUN 17 mg/dL 8-19 Not Available [facility] (Lab) [address] [place], [address], 01/15/2023 12:24:31 01/16/20 23 01/15/2023 COMPR EHENS JONATHAN METAB OLIC PANEL creatinine 0.99 mg/dL 0.66-1 .25 Not Available [facility] (Lab) [address] [place], [address], 01/15/2023 12:24:31 01/16/20 23 01/15/2023 COMPR EHENS JONATHAN METAB OLIC PANEL GFR 55 Refer ence Range : [place] ge GFR Healt hy Adult : >60 [...] or ethni c subgr oups, such as Hisal nics. Outsi de the valid ated katrin [...] calcu lator is avail able on the F websi te: https ://rigoberto aguila.ulysses benz/pr penny guillenal s/kdo qi/gf r_cal culat or Not Available [facility] (Lab) [address] [place], [address], 01/15/2023 12:24:31 01/16/20 23 01/15/2023 COMPR EHENS JONATHAN METAB OLIC PANEL alkaline phosphatase 72 U/L 38-126 Not Available [facility] (Lab) [address] [place], [address], 01/15/2023 12:24:31 01/16/20 23 01/15/2023 COMPR EHENS JONATHAN METAB OLIC PANEL alanine aminotransfe rase 12 U/L 0-35 Not Available [facility] (Lab) [address] [place], [address], 01/15/2023 12:24:31 01/16/20 23 01/15/2023 COMPR EHENS JONATHAN METAB OLIC PANEL aspartate aminotransfe rase 31 U/L 15-37 Not Available [facility] (Lab) [address] [place], [address], 01/15/2023 12:24:31 01/16/20 23 01/15/2023 COMPR EHENS JONATHAN METAB OLIC PANEL bilirubin, total 0.90 mg/dL 0.20-1 .30 Not Available [facility] (Lab) [address] [place], [address], 01/15/2023 12:24:31 01/16/20 23 01/15/2023 COMPR EHENS JONATHAN METAB OLIC PANEL calcium 9.8 mg/dL 8.4-10 .2 Not Available [facility] (Lab) [address] [place], [address], 01/15/2023 12:24:31 01/16/20 23 01/15/2023 COMPR EHENS JONATHAN METAB OLIC PANEL total protein 6.8 g/dL 6.3-8. 2 Not Available [facility] (Lab) [address] [place], [address], 01/15/2023 12:24:31 01/16/20 23 01/15/2023 COMPR EHENS JONATHAN METAB OLIC PANEL albumin 4.3 g/dL 3.0-4. 4 Not Available [facility] (Lab) [address] [place], [address], 01/15/2023 12:24:31 01/16/20 23 01/15/2023 COMPR EHENS JONATHAN METAB OLIC PANEL globulin 2.5 g/dL 2.6-4. 2 low Not Available [facility] (Lab) [address] [place], [address], 01/15/2023 12:24:31 01/16/20 23 01/15/2023 COMPR EHENS JONATHAN METAB OLIC PANEL A/G ratio 1.7 ratio 1.0-2. 0 Not Available [facility] (Lab) [address] [place], [address], 01/15/2023 12:24:31 01/16/20 23 01/15/2023 LIPID PANEL cholesterol 127 mg/dL 140-19 9 low NIH OSWALDO NSUS RECOM MENDA TION FOR PAWAN STERO L: ADULT CHILD LOW RISK: <200 <170 BORDE RLINE : <200- 239 ----- HIGH RISK: >240 >200 Not Available [facility] (Lab) [address] [place], [address], 01/15/2023 12:24:49 01/16/20 23 01/15/2023 LIPID PANEL triglyceride s 185 mg/dL 0-150 high NIH OSWALDO NSUS REPOR T RECOM MENDA TION FOR TRIGL YCERI ZORAIDA: ADULT CHILD LOW RISK: <150 ----- BODER LINE: 150-1 99 ----- HIGH RISK: >200 ----- Not Available [facility] (Lab) [address] [place], [address], 01/15/2023 12:24:49 01/16/20 23 01/15/2023 LIPID PANEL HDL cholesterol 57 mg/dL 40- Not Available [facility] (Lab) [address] [place], [address], 01/15/2023 12:24:49 01/16/20 23 01/15/2023 LIPID PANEL [...] WILL NOT BE REPOR RUI. Not Available [facility] (Lab) [address] [place], [address], 01/15/2023 12:24:49 01/16/20 23 01/15/2023 T4 FREE free T4 1.29 NG/dL 0.78-2 .19 Not Available [facility] (Lab) [address] [place], [address], 01/15/2023 12:31:42 01/16/20 23 01/15/2023 TSH thyroid-stim ulating hormone 0.677 uIU/m L 0.465- 4.680 Not Available [facility] (Lab) [address] [place], [address], 01/15/2023 12:39:04 01/16/20 23 01/15/2023 HEMOG LOBIN A1C HA1C 6.0 % 4.0-6. 0 Diabe harman Scree roma Crite adi: <5.7% Consi stent with absen ce of diabe harman 5.7-6 .4% Consi stent with incre ased risk for diabe harman (pred iabet es) >OR=6 .5% Consi stent with diabe harman REFER ENCE: Diabe harman Care 2016, 39(Arnold ppl.1 ):s13 -s22 Not Available [facility] (Lab) [address] [place], [address], 01/15/2023 13:11:47 01/16/20 23 01/15/2023 VITAM IN B12 (MADDY DOMENICA ) vb12 677 pg/mL 239-93 1 Not Available [facility] (Lab) [address] [place], [address], 01/15/2023 18:31:01 01/16/20 23 01/15/2023 FOLAT E, SERUM /PLAS MA folate 5.65 NG/mL 2.76-2 0.0 Not Available [facility] (Lab) [address] [place], [address], 01/15/2023 18:31:05 01/16/20 23 01/15/2023 MICRO ALBUM IN RANDO M URINE microalbumin , urine 36.5 mg/L 0.0-16 .6 high Not Available [facility] (Lab) [address] [place], [address], 01/15/2023 18:38:15 04/23/20 23 04/23/2023 LIPID PANEL cholesterol 123 mg/dL 140-19 9 low NIH OSWALDO NSUS RECOM MENDA TION FOR PAWAN STERO L: ADULT CHILD LOW RISK: <200 <170 BORDE RLINE : <200- 239 ----- HIGH RISK: >240 >200 Not Available [facility] (Lab) [address] [place], [address], 04/23/2023 10:23:37 04/23/20 23 04/23/2023 LIPID PANEL triglyceride s 138 mg/dL 0-150 NIH OSWALDO NSUS REPOR T RECOM MENDA TION FOR TRIGL YCERI ZORAIDA: ADULT CHILD LOW RISK: <150 ----- BODER LINE: 150-1 99 ----- HIGH RISK: >200 ----- Not Available [facility] (Lab) [address] [place], [address], 04/23/2023 10:23:37 04/23/20 23 04/23/2023 LIPID PANEL HDL cholesterol 52 mg/dL 40- Not Available [facility] (Lab) [address] [place], [address], 04/23/2023 10:23:37 04/23/20 23 04/23/2023 LIPID PANEL [...] WILL NOT BE REPOR RUI. Not Available [facility] (Lab) [address] [place], [address], 04/23/2023 10:23:37 04/23/20 23 04/23/2023 COMPR EHENS JONATHAN METAB OLIC PANEL sodium 141 mmol/ L 137-14 5 Not Available [facility] (Lab) [address] [place], [address], 04/23/2023 10:23:48 04/23/20 23 04/23/2023 COMPR EHENS JONATHAN METAB OLIC PANEL potassium 4.5 mmol/ L 3.5-5. 1 Not Available [facility] (Lab) [address] [place], [address], 04/23/2023 10:23:48 04/23/20 23 04/23/2023 COMPR EHENS JONATHAN METAB OLIC PANEL chloride 104 mmol/ L 98-107 Not Available [facility] (Lab) [address] [place], [address], 04/23/2023 10:23:48 04/23/20 23 04/23/2023 COMPR EHENS JONATHAN METAB OLIC PANEL carbon dioxide 30 mmol/ L 22-30 Not Available [facility] (Lab) [address] [place], [address], 04/23/2023 10:23:48 04/23/20 23 04/23/2023 COMPR EHENS JONATHAN METAB OLIC PANEL anion gap 11.5 mmol/ L 14-22 low Not Available [facility] (Lab) [address] [place], [address], 04/23/2023 10:23:48 04/23/20 23 04/23/2023 COMPR EHENS JONATHAN METAB OLIC PANEL glucose 103 mg/dL 70-99 high Not Available [facility] (Lab) [address] [place], [address], 04/23/2023 10:23:48 04/23/20 23 04/23/2023 COMPR EHENS JONATHAN METAB OLIC PANEL BUN 24 mg/dL 8-19 high Not Available [facility] (Lab) [address] [place], [address], 04/23/2023 10:23:48 04/23/20 23 04/23/2023 COMPR EHENS JONATHAN METAB OLIC PANEL creatinine 1.05 mg/dL 0.66-1 .25 Not Available [facility] (Lab) [address] [place], [address], 04/23/2023 10:23:48 04/23/20 23 04/23/2023 COMPR EHENS JONATHAN METAB OLIC PANEL GFR 52 Refer ence Range : [place] ge GFR Healt hy Adult : >60 [...] calcu lator is avail able on the [facility] websi te: https ://ww w.kid ayla.o rg/pr ofess ional s/kdo qi/gf r_cal culat or Not Available [facility] (Lab) [address] [place], [address], 04/23/2023 10:23:48 04/23/20 23 04/23/2023 COMPR EHENS JONATHAN METAB OLIC PANEL alkaline phosphatase 63 U/L 38-126 Not Available [facility] (Lab) [address] [place], [address], 04/23/2023 10:23:48 04/23/20 23 04/23/2023 COMPR EHENS JONATHAN METAB OLIC PANEL alanine aminotransfe rase 27 U/L 0-35 Not Available [facility] (Lab) [address] [place], [address], 04/23/2023 10:23:48 04/23/20 23 04/23/2023 COMPR EHENS JONATHAN METAB OLIC PANEL aspartate aminotransfe rase 41 U/L 15-37 high Not Available [facility] (Lab) [address] [place], [address], 04/23/2023 10:23:48 04/23/20 23 04/23/2023 COMPR EHENS JONATHAN METAB OLIC PANEL bilirubin, total 0.40 mg/dL 0.20-1 .30 Not Available [facility] (Lab) [address] [place], [address], 04/23/2023 10:23:48 04/23/20 23 04/23/2023 COMPR EHENS JONATHAN METAB OLIC PANEL calcium 9.1 mg/dL 8.4-10 .2 Not Available [facility] (Lab) [address] [place], [address], 04/23/2023 10:23:48 04/23/20 23 04/23/2023 COMPR EHENS JONATHAN METAB OLIC PANEL total protein 6.3 g/dL 6.3-8. 2 Not Available [facility] (Lab) [address] [place], [address], 04/23/2023 10:23:48 04/23/20 23 04/23/2023 COMPR EHENS JONATHAN METAB OLIC PANEL albumin 3.8 g/dL 3.0-4. 4 Not Available [facility] (Lab) [address] [place], [address], 04/23/2023 10:23:48 04/23/20 23 04/23/2023 COMPR EHENS JONATHAN METAB OLIC PANEL globulin 2.5 g/dL 2.6-4. 2 low Not Available [facility] (Lab) [address] [place], [address], 04/23/2023 10:23:48 04/23/20 23 04/23/2023 COMPR EHENS JONATHAN METAB OLIC PANEL A/G ratio 1.5 ratio 1.0-2. 0 Not Available [facility] (Lab) [address] [place], [address], 04/23/2023 10:23:48 04/23/20 23 04/23/2023 MICRO ALBUM IN RANDO M URINE microalbumin , urine <6.0 mg/L 0.0-16 .6 Not Available [facility] (Lab) [address] [place], [address], 04/23/2023 10:27:21 04/23/20 23 04/23/2023 CBC/C OMPLE TE BLD COUNT W/DIF F white blood cells 7.2 x10'3 /uL 4.2-10 .8 Not Available [facility] (Lab) [address] [place], [address], 04/23/2023 10:29:24 04/23/20 23 04/23/2023 CBC/C OMPLE TE BLD COUNT W/DIF F red blood cells 4.20 x10'6 /uL 3.80-5 .20 Not Available [facility] (Lab) [address] [place], [address], 04/23/2023 10:29:24 04/23/20 23 04/23/2023 CBC/C OMPLE TE BLD COUNT W/DIF F hemoglobin 12.8 g/dL 12.0-1 5.6 Not Available [facility] (Lab) [address] [place], [address], 04/23/2023 10:29:24 04/23/20 23 04/23/2023 CBC/C OMPLE TE BLD COUNT W/DIF F hematocrit 39.9 % 35.7-4 5.7 Not Available [facility] (Lab) [address] [place], [address], 04/23/2023 10:29:24 04/23/20 23 04/23/2023 CBC/C OMPLE TE BLD COUNT W/DIF F mean red cell volume 95.0 fL 82.0-9 9.0 Not Available [facility] (Lab) [address] [place], [address], 04/23/2023 10:29:24 04/23/20 23 04/23/2023 CBC/C OMPLE TE BLD COUNT W/DIF F mean red cell hemoglobin 30.5 pg 27.0-3 3.0 Not Available [facility] (Lab) [address] [place], [address], 04/23/2023 10:29:24 04/23/20 23 04/23/2023 CBC/C OMPLE TE BLD COUNT W/DIF F mean RBC HGB concentratio n 32.1 g/dL 31.0-3 6.0 Not Available [facility] (Lab) [address] [place], [address], 04/23/2023 10:29:24 04/23/20 23 04/23/2023 CBC/C OMPLE TE BLD COUNT W/DIF F red cell distribution width 13.0 % 11.8-1 5.5 Not Available [facility] (Lab) [address] [place], [address], 04/23/2023 10:29:24 04/23/20 23 04/23/2023 CBC/C OMPLE TE BLD COUNT W/DIF F platelets 119 x10'3 /uL 150-40 0 low Not Available [facility] (Lab) [address] [place], [address], 04/23/2023 10:29:24 04/23/20 23 04/23/2023 CBC/C OMPLE TE BLD COUNT W/DIF F mean platelet volume 12.9 fL 9.0-12 .4 high Not Available [facility] (Lab) [address] [place], [address], 04/23/2023 10:29:24 04/23/20 23 04/23/2023 CBC/C OMPLE TE BLD COUNT W/DIF F neutrophils 49.0 % 39.0-7 2.0 Not Available [facility] (Lab) [address] [place], [address], 04/23/2023 10:29:24 04/23/20 23 04/23/2023 CBC/C OMPLE TE BLD COUNT W/DIF F lymphocytes 28.2 % 16.0-4 7.0 Not Available [facility] (Lab) [address] [place], [address], 04/23/2023 10:29:24 04/23/20 23 04/23/2023 CBC/C OMPLE TE BLD COUNT W/DIF F monocytes 15.8 % 5.0-12 .0 high Not Available [facility] (Lab) [address] [place], [address], 04/23/2023 10:29:24 04/23/20 23 04/23/2023 CBC/C OMPLE TE BLD COUNT W/DIF F eosinophils 5.7 % 1.0-7. 0 Not Available [facility] (Lab) [address] [place], [address], 04/23/2023 10:29:24 04/23/20 23 04/23/2023 CBC/C OMPLE TE BLD COUNT W/DIF F basophils 1.0 % 0.0-2. 0 Not Available [facility] (Lab) [address] [place], [address], 04/23/2023 10:29:24 04/23/20 23 04/23/2023 CBC/C OMPLE TE BLD COUNT W/DIF F immature granulocytes 0.3 % 0.00-0 .50 Not Available [facility] (Lab) [address] [place], [address], 04/23/2023 10:29:24 04/23/20 23 04/23/2023 CBC/C OMPLE TE BLD COUNT W/DIF F neutrophils, absolute count 3.55 x10'3 /uL 1.5-8. 0 Not Available [facility] (Lab) [address] [place], [address], 04/23/2023 10:29:24 04/23/20 23 04/23/2023 CBC/C OMPLE TE BLD COUNT W/DIF F lymphocytes, absolute count 2.04 x10'3 /uL 1.07-3 .43 Not Available [facility] (Lab) [address] [place], [address], 04/23/2023 10:29:24 04/23/20 23 04/23/2023 CBC/C OMPLE TE BLD COUNT W/DIF F monocytes, absolute count 1.14 x10'3 /uL 0.29-0 .99 high Not Available [facility] (Lab) [address] [place], [address], 04/23/2023 10:29:24 04/23/20 23 04/23/2023 CBC/C OMPLE TE BLD COUNT W/DIF F eosinophils, absolute count 0.41 x10'3 /uL 0.02-0 .53 Not Available [facility] (Lab) [address] [place], [address], 04/23/2023 10:29:24 04/23/20 23 04/23/2023 CBC/C OMPLE TE BLD COUNT W/DIF F basophils, absolute count 0.07 x10'3 /uL 0.01-0 .08 Not Available [facility] (Lab) [address] [place], [address], 04/23/2023 10:29:24 04/23/20 23 04/23/2023 CBC/C OMPLE TE BLD COUNT W/DIF F immature granulocytes ,absolute 0.02 x10'3 /uL 0.00-0 .05 Not Available [facility] (Lab) [address] [place], [address], 04/23/2023 10:29:24 04/23/20 23 04/23/2023 CBC/C OMPLE TE BLD COUNT W/DIF F nucleated red blood cells 0.0 % -0 Not Available [facility] (Lab) [address] [place], [address], 04/23/2023 10:29:24 04/23/20 23 04/23/2023 CBC/C OMPLE TE BLD COUNT W/DIF F NRBC# 0.00 x10'3 /uL Not Available [facility] (Lab) [address] [place], [address], 04/23/2023 10:29:24 04/23/20 23 04/23/2023 T4 FREE free T4 1.17 NG/dL 0.78-2 .19 Not Available [facility] (Lab) [address] [place], [address], 04/23/2023 10:32:56 04/23/20 23 04/23/2023 TSH thyroid-stim ulating hormone 0.634 uIU/m L 0.465- 4.680 Not Available [facility] (Lab) [address] [place], [address], 04/23/2023 11:00:11 04/23/20 23 04/23/2023 HEMOG LOBIN A1C HA1C 5.8 % 4.0-6. 0 Diabe harman Scree roma Crite adi: <5.7% Consi stent with absen ce of diabe harman 5.7-6 .4% Consi stent with incre ased risk for diabe harman (pred iabet es) >OR=6 .5% Consi stent with diabe harman REFER ENCE: Diabe harman Care 2016, 39(Arnold ppl.1 ):s13 -s22 Not Available [facility] (Lab) [address] [place], [address], 04/23/2023 12:21:03 09/23/20 22 09/23/2022 CT, abdom en + pelvi s, w/ contr ast No observ ation record ed. [id number] [facility] (Radiology) [address] [place], [address], 12/25/2022 05:07:19 09/23/20 22 09/23/2022 CT, abdom en + pelvi s, w/ contr ast [facility] [address] [facility], [place] [address] Saw t Name: ARUNA PANTOJA F Access ion #: [id number] Sex: F : 1949 0 Locati on: MOP Attend ing Physic paras: ROSALINAWilma DODD VIJAYMigdaliaCURT [place] Orderi ng Physic paras: ILEANA LUZ DODDCURT [place] Exam Date: 2021 8:40 AM Exam Name: [...] 370 intrav enous [address] [facility] Saw lopez Name: ARUNA PANTOJA F Access ion #: [id number] Sex: F : 1949 0 Exam [...] acute proces s Page [facility] [address] [facility] t Name: ARUNA PANTOJA Access ion #: [id number] Sex: F : 1949 0 Exam [...] ly signed by: Page [address] [facility] t Name: ARUNA PANTOJA Access ion #: [id number] Sex: F : 1949 [id number] Exam Date: 2021 8:40 AM Exam Name: CT ABDOME N PELVIS W Admitt ing Diagno sis(es ): Wilfrid azevedo MD Signed Date: 2021 5:06 PM (CT) Dictat ed by: Wilfrid azevedo MD DD: 2021 5:06 PM (CT) DT: 2021 5:06 PM (CT) Page 4 of 4 [id number] [facility] (Imaging) [address] [facility], [place], [address], 12/25/2022 05:07:19 01/15/20 23 01/14/2023 XR, abdom en No observ ation record ed. [email or web address] [facility] [address], [place], [address], 01/15/2023 11:16:33 03/31/20 23 03/31/2023 , echoc ardio gram No observ ation record ed. [address] [facility] [address], [place], [address], 05/27/2023 12:42:39 04/23/20 24 04/23/2024 imagi ng/di agnos tic resul t No observ ation record ed. [facility] [address], [place], [address], 04/23/2024 12:03:13 01/15/20 25 01/14/2025 imagi ng/di agnos tic resul t No observ ation record ed. [facility] [address], [place], [address], 01/14/2025 18:14:57 Result Notes None recorded. Problems Name Problem SNOMED Code Status Onset Date Resolution Date Notes Provider Name and Address Organization Details Recorded Time Chronic kidney disease 190006058 Active 2022 Not Available [facility] 02/20/202 4 10:26:19 Near syncope 804991385 Active 2022 Not Available [facility] 4 10:26:18 Excess panniculus of abdomen 1609440341526 Active 2022 Not Available [facility] 4 10:26:18 Seasonal allergy 516008117 Active 2022 Not Available [facility] 4 10:26:19 Small bowel obstructio n 321016132 Active 2022 Not Available [facility] 4 10:26:18 Transient cerebral ischemia 890143063 Active 2022 Not Available [facility] 4 10:26:18 Abdominal discomfort 95356564 Active 2022 Not Available [facility] 4 10:26:18 Moderate recurrent major depression 61526587 Active 2022 Not Available [facility] 4 10:26:18 Thrombocyt openic disorder 199052325 Active 2022 Not Available [facility] 4 10:26:18 Pain of left wrist 4787095883422 02 Active 2022 Not Available [facility] 4 10:26:18 Skin lesion 58804438 Active 2022 Not Available [facility] 4 10:26:19 Pain of toe of left foot 3638989617728 08 Active 2022 Not Available [facility] 4 10:26:18 Bunion 033236208 Active 2022 Not Available [facility] 4 10:26:18 Diabetes mellitus 80722017 Active 2022 Not Available [facility] 4 10:26:19 Dystrophia unguium 55998842 Active 2022 Not Available [facility] 4 10:26:19 COVID-19 229531092 Active 2022 Not Available [facility] 4 10:26:19 Upper respirator y infection 72494142 Active 2022 Not Available [facility] 4 10:26:19 Tailor's bunion of right foot 9704527109563 109 Active 2019 Not Available [facility] 4 10:26:18 History of diverticul itis 6064794788274 00 Active 2020 Not Available [facility] 4 10:26:18 Cellulitis 532658669 Active Not Available [facility] 4 10:26:18 Hyperchole sterolemia 99527732 Active Not Available [facility] 4 10:26:18 Constipati on 39180535 Active 2022 Not Available [facility] 4 10:26:18 Pain of right elbow joint 2736457283879 9109 Active 2021 Not Available [facility] 4 10:26:18 Blood glucose outside reference range 322388289 Active Not Available [facility] 4 10:26:18 Localized, 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 661840322 Active 2019 Not Available [facility] 4 10:26:18 Tibialis posterior tendinitis 142530597 Active Not Available [facility] 4 10:26:18 Dog bite - wound 352036427 Active Not Available [facility] 4 10:26:18 Hypertrigl yceridemia 942873843 Active 2021 Not Available [facility] 4 10:26:18 Diverticul itis 698578764 Active 2016 Not Available [facility] 4 10:26:18 Localized, primary osteoarthr itis of elbow 838818628 Active Not Available [facility] 4 10:26:18 Type 2 diabetes mellitus without complicati on 741912424 Active 2019 Not Available [facility] 4 10:26:18 Pain in left foot 3158652287130 07 Active Not Available [facility] 4 10:26:18 Depressive disorder 14631287 Active Not Available [facility] 4 10:26:18 Sinusitis 67552053 Active Not Available [facility] 4 10:26:18 Osteoarthr itis 494874981 Active Not Available [facility] 4 10:26:18 Diaphragma tic hernia 79924274 Active Not Available [facility] 4 10:26:18 Pharyngiti s 655878137 Active Not Available [facility] 4 10:26:18 Body mass index 40+ - severely obese 241913026 Active 2017 Not Available [facility] 4 10:26:18 Hypothyroi dism 79882157 Active Not Available [facility] 4 10:26:18 Bunion 193949894 Active 2019 Not Available [facility] 4 10:26:18 History of laparoscop ic adjustable gastric banding 978324026 Active 2020 Not Available [facility] 4 10:26:18 Arthritis of elbow 846437899 Active 2021 Not Available [facility] 4 10:26:19 Pain of shoulder region 47888965 Active 2021 Not Available [facility] 4 10:26:19 Pain of shoulder region 68365541 Active 2021 Not Available [facility] 4 10:26:19 Anxiety 46650675 Active 2021 Not Available [facility] 4 10:26:19 Cough 65448441 Active Not Available [facility] 4 10:26:19 Talipes planus 90303888 Active Not Available [facility] 4 10:26:19 Hyperlipid emia 72759867 Active Not Available [facility] 4 10:26:19 Essential hypertensi on 64257676 Active 2016 Not Available [facility] 4 10:26:19 Obstructiv e sleep apnea syndrome 04952398 Active 2016 Not Available [facility] 4 10:26:19 Bursitis 52160358 Active Not Available [facility] 4 10:26:19 Fatigue 52848077 Active Not Available [facility] 4 10:26:19 Problem Notes None recorded. Procedures Surgical History Date Name Laterality Status Provider Name and Address Organization Details Recorded Time 06/03/20 23 Nail Debridement completed Massimo Porter, [facility] [address] [facility], [address], [place], [address], [facility] 06/03/2023 10:21:02 04/24/20 23 Medicare Wellness CPT Code, subsequent completed Opal Hyde RN [place] [facility] 04/24/2023 14:31:12 07/04/20 22 EGD completed Not Available [facility] 12/25/2022 04:42:48 07/06/20 21 Most Recent Bone Density completed Not Available [facility] 12/25/2022 04:42:42 01/24/20 21 abdominoplasty completed Not Available [facility] 12/25/2022 04:42:48 07/01/20 13 Date of Last Colonoscopy completed Not Available [facility] 12/25/2022 04:42:42 Abdominal Surgery completed Not Available [facility] 12/25/2022 04:42:48 Cataract Surgery completed PRIYANKA Adams [employer] 01/16/2023 11:35:24 Imaging Results None recorded. Procedure Notes None recorded. Medical Equipment None Reported. Allergies Allergen ID Allergen Name Allergen Category Reaction Reaction Severity Criticality Documentation Date Start Date Code Code System Note Provider Name and Address Organization Details Recorded Time 8753 Demerol medicatio n vomiting Not available Not available 12/25/2022 42213 1 RxNorm Not Available [facility] 3 05:06:32 8754 codeine medicatio n vomiting Not available Not available 12/25/2022 2670 RxNorm Not Available [facility] 3 05:06:32 Medications Name Sig Start Date [...] completed [facility]: [id number] - Not Available Not Available Not Available benzonata [...] Not Available Not Available No t Available GoodClicTouch Ultra2 Meter kit USE DIRECTED TO TEST BLOOD GLUCOSE 11/29 /2018 completed Not Available Not Available Not Available [...] active Increase d by Dr Foley 12/08/19 21 Not Available Not Available Not Available Entresto [...] ular syringe TO BE ADMINIST ERED BY [employer] FOR IMMUNIZA TION 10/07 completed Not Available Not Available Not Available Fluzone High-Dose Quad (PF) 240 mcg/0.7 mL IM syringe PHARMACI ST ADMINIST ERED IMMUNIZA TION ADMINIST ERED AT TIME OF DISPENSI NG 02/06 completed Not Available Not Available Not Available Paxlovid 150 mg-100 mg tablets in a dose pack (Moderate Renal Dose) USE DIRECTED PER PACKAGE 09/23 completed [...] % 97 % 72 /min 97.2 [degF] 05444.0 8 g 130 mm[Hg] 80 mm[Hg] Not Available [facility] 3 04:46:48 Date Recorded Body height Body mass index (BMI) Body weight Body temperature Heart rate Systolic blood pressure Diastolic blood pressure Provider Name and Address Organization Details Last Updated DateTime 3 154.94 cm 27.2 kg/m2 22008.3 g 97.1 [degF] 66 /min 114 mm[Hg] 66 mm[Hg] PRIYANKA Adams [place] - [facility] [place] [employer] [facility] 3 11:36:55 Date Recorded Body height Body mass index (BMI) Body weight Body temperature Heart rate Systolic blood pressure Diastolic blood pressure Provider Name and Address Organization Details Last Updated DateTime 3 154.94 cm 27.9 kg/m2 66908.8 7 g 97.2 [degF] 78 /min 116 mm[Hg] 60 mm[Hg] PRIYANKA Adams [employer] 3 14:11:04 Date Recorded Body height Body mass index (BMI) Body weight Heart rate Respiratory rate Oxygen saturation Oxygen saturation in Arterial blood by Pulse oximetry Systolic blood pressure Diastolic blood pressure Provider Name and Address Organization Details Last Updated DateTime 3 154.94 cm 27 kg/m2 98036.7 1 g 65 /min 14 /min 98 % 98 % 115 mm[Hg] 74 mm[Hg] Nydia Lewis [employer] 3 09:44:05 Date Recorded Body mass index (BMI) Body height Heart rate Body temperature Body weight Systolic blood pressure Diastolic blood pressure Provider Name and Address Organization Details Last Updated DateTime 2 27.6 kg/m2 154.94 cm 90 /min 97.7 [degF] 44177.4 9 g 110 mm[Hg] 66 mm[Hg] Not Available [facility] 3 04:46:48 Social History Question Answer Notes LastModified by [employer] ion Details LastModified Time Tobacco Smoking Status Never Smoker Not Available [facility] 12/25/2022 04:20:45 Do You Have An Advance Directive? No MIGRATION.48202 89908 Information not available 12/25/2022 Are You Blind Or Do You Have Difficulty Seeing? No MIGRATION.06580 90703 Information not available 12/25/2022 What Is Your Level Of Caffeine Consumption? Moderate MIGRATION.97883 34892 Information not available 12/25/2022 How Much Tobacco Do You Chew? None MIGRATION.32146 07060 Information not available 12/25/2022 In The 14 Days Before Symptom Onset, Have You Had Close Contact With A Laboratory-confir med COVID-19 While That Case Was Ill? No MIGRATION.36253 17844 Information not available 12/25/2022 In The 14 Days Before Symptom Onset, Have You Had Close Contact With A Person Who Is Under Investigation For COVID-19 While That Person Was Ill? No MIGRATION.62920 56958 Information not available 12/25/2022 Are You Deaf Or Do You Have Serious Difficulty Hearing? No MIGRATION.29830 19052 Information not available 12/25/2022 What Type Of Diet Are You Following? REGULAR MIGRATION.03172 86923 Information not available 12/25/2022 Which Illicit Or Recreational Drugs Have You Used? Marijuana Information not available 01/16/2023 What Is The Highest Grade Or Level Of School You Have Completed Or The Highest Degree You Have Received? DH90094-5 MIGRATION.38168 84677 Information not available 12/25/2022 Have There Been Any Changes To Your Family Or Social Situation? No MIGRATION.53642 39377 Information not available 12/25/2022 What Is The Fluoride Status Of Your Home? Unknown MIGRATION.72457 38478 Information not available 12/25/2022 Are There Any Guns Present In Your Home? Yes MIGRATION.06611 03501 Information not available 12/25/2022 Do You Use Insect Repellent Routinely? No MIGRATION.77297 28923 Information not available 12/25/2022 Where Do You Live? [place] MIGRATION.66590 55370 Information not available 12/25/2022 Do You Have A Medical Power Of Channeler Outsole? No MIGRATION.01336 31783 Information not available 12/25/2022 What Was The Date Of Your Most Recent Tobacco Screening? 06/03/2023 [email or web address] Information not available 06/03/2023 Do You Have Any Pets? Yes MIGRATION.20060 43552 Information not available 12/25/2022 What Is Your Relationship Status? MIGRATION.96487 93191 Information not available 12/25/2022 Do You Use Your Seat Belt Or Car Seat Routinely? Yes MIGRATION.98195 22561 Information not available 12/25/2022 Do You Have Smoke And Carbon Monoxide Detectors In Your Home? Yes MIGRATION.13614 18242 Information not available 12/25/2022 Are You Passively Exposed To Smoke? No MIGRATION.26439 37885 Information not available 12/25/2022 Are There Any Smokers In Your House? No MIGRATION.82335 11590 Information not available 12/25/2022 How Much Tobacco Do You Smoke? No MIGRATION.22745 85681 Information not available 12/25/2022 Do You Use Sunscreen Routinely? No MIGRATION.98961 62892 Information not available 12/25/2022 Has Tobacco Cessation Counseling Been Provided? No N/a MIGRATION.58231 27341 Information not available 12/25/2022 How Many Years Have You Smoked Tobacco? 0 MIGRATION.39692 59389 Information not available 12/25/2022 Have You Recently Traveled Abroad? No MIGRATION.43251 65378 Information not available 12/25/2022 Have You Used IV Drugs? No Information not available 01/16/2023 Do You Have Difficulty Walking Or Climbing Stairs? No MIGRATION.80723 78896 Information not available 12/25/2022 Do You Have Any Dietary Restrictions? No MIGRATION.09352 08586 Information not available 12/25/2022 Sex: Female Functional Status Question Answer Note LastModified by [email or web address] ion Details LastModified Time Do you use any illicit or recreational drugs? Yes Information not available 01/16/2023 Do you or have you ever used any other forms of tobacco or nicotine? No MIGRATION.919765 8687 Information not available 12/25/2022 What is your level of alcohol consumption? None MIGRATION.053154 0983 Information not available 12/25/2022 Do you or have you ever used smokeless tobacco? Never used smokeless tobacco MIGRATION.752813 3984 Information not available 12/25/2022 Do you have transportation difficulties? No MIGRATION.680887 0947 Information not available 12/25/2022 Are you able to walk? YESWOREST MIGRATION.688946 0128 Information not available 12/25/2022 Do you have difficulty doing errands alone? No MIGRATION.865932 7203 Information not available 12/25/2022 Are you able to care for yourself? 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 No MIGRATION.772906 0136 Information not available 12/25/2022 Do you or have you ever used e-cigarettes or vape? Never used electronic cigarettes MIGRATION.200121 0343 Information not available 12/25/2022 What is your exercise level? None MIGRATION.421405 2753 Information not available 12/25/2022 Mental Status Question Answer Note LastModified by [employer] ion Details LastModified Time Do you feel stressed (tense, restless, nervous, or anxious, or unable to sleep at night)? [id number] MIGRATION.87362259 26 Information not available 12/25/2022 Do you have difficulty concentrating, remembering or making decisions? No MIGRATION.87717746 26 Information not available 12/25/2022 Family History Relationship Description Onset Age of this Age Resolved Age Notes LastModified by Organization Details LastModified Time Maternal Grandfather Diabetes mellitus MIGRATION.039 [id number] Not available 12/25/2022 04:42:52 Mother Diabetes mellitus MIGRATION.819 [id number] Not available 12/25/2022 04:42:52 Father Heart disease MIGRATION.240 [id number] Not available 12/25/2022 04:42:52 Sister Malignant tumor of stomach MIGRATION.279 [id number] Not available 12/25/2022 04:42:52 Medical History Condition Response NERVE DISEASE N BLINDNESS N RHEUMATIC FEVER Y KIDNEY STONES N BLADDER PROBLEMS N MRSA N OTHER # 1 N POLIO N LUNG DISEASE/DISORDER N HISTORY OF DRUG ABUSE N COPD N RADIATION / CHEMOTHERAPY N Other # 2 N BLOOD DISEASES N EAR OR HEARING PROBLEMS N MUMPS N SHINGLES Y DEPRESSION (INCLUDING POST ) Y BOWEL PROBLEMS N STROKE/TIA Y THYROID DISEASE Y ULCERS N BENIGN PROSTATIC HYPERPLASIA N MEASLES N HYPOTENSION N MYOCARDIAL INFARCTION N PARAPELGIA N OBESITY N GERD/NAUSEA N ANEURYSM N URINARY/BLADDER/KIDNEY PROBLEMS N CORONARY ARTERY DISEASE (CAD) N Do you have Advance directive? N ADDICTION CONCERNS N Impotence N ENDOMETRIOSIS N USE OF BLOOD THINNERS N SKIN [...] GLAUCOMA N FOOT PROBLEM N DIVERTICULITIS N SLEEP APNEA Y CHICKENPOX N ALLERGIES/HAYFEVER Y INFECTIOUS DISEASE N PROSTATE N HEART ARRHYTHMIA N INSOMNIA N HIGH CHOLESTEROL / HYPERLIPIDEMIA Y EYE PROBLEMS N HYPERTHYROIDISM N EDEMA N CHRONIC PAIN SYNDROME N HYPOTHYROIDISM Y CAROTID BLOCKAGE N CONSTIPATION N BACK / NECK PROBLEMS N MIGRAINES [...] N ALZHEIMER'S DISEASE N Brain Problems N DEMENTIA N HERPES N SEIZURES/EPILEPSY N HEADACHES/MIGRAINES N VASCULAR DISEASE N PACEMAKER Y Blood Disorder Y DIZZINESS N HEART DISEASE/HEART PROBLEMS Y KIDNEY DISEASE Y MULTIPLE SCLEROSIS N MENTAL DISORDER/ILLNESS N CANCER: SPECIFY N CARDIAC ARRHYTHMIA Y ATRIAL FIBRILLATION N Gall Stones N PULMONARY [...] mcg/0.3 mL dose 2 completed Not Available [facility] 12/16/2023 10:26:20 COVID-19, mRNA, LNP-S, PF, 30 mcg/0.3 mL dose 2 completed Not Available [facility] 12/16/2023 10:26:20 Influenza, high-dose, quadrivalent, PF 2 completed Not Available [facility] 12/16/2023 10:26:19 COVID-19, mRNA, LNP-S, PF, 30 mcg/0.3 mL dose 1 completed Not Available [facility] 12/16/2023 10:26:20 SARS-COV-2 (COVID-19) vaccine, UNSPECIFIED 1 completed Not Available [facility] 12/16/2023 10:26:20 SARS-COV-2 (COVID-19) vaccine, UNSPECIFIED 1 completed Not Available [facility] 12/16/2023 10:26:20 Pneumococcal conjugate PCV 13 9 completed Not Available [facility] 12/16/2023 10:26:20 Influenza, split virus, quadrivalent, preservative 9 completed Not Available [facility] 12/16/2023 10:26:19 influenza, unspecified formulation 7 completed Not Available [facility] 12/16/2023 10:26:20 tetanus toxoid, unspecified formulation 5 completed Not Available [facility] 12/16/2023 10:26:20 pneumococcal polysaccharide PPV23 2 completed Not Available [facility] 12/16/2023 10:26:20 Influenza, high-dose, quadrivalent, PF 1 completed Not Available [facility] 12/16/2023 10:26:19 Influenza, high-dose, trivalent, PF 8 completed Not Available [facility] 12/16/2023 10:26:20 Influenza, split virus, quadrivalent, preservative 6 completed Not Available [facility] 12/16/2023 10:26:19 Influenza, split virus, trivalent, preservative 4 completed Not Available [facility] 12/16/2023 10:26:20 Influenza, split virus, trivalent, preservative 3 completed Not Available [facility] 12/16/2023 10:26:20 zoster live 3 completed Not Available [facility] 12/16/2023 10:26:20 Past Encounters Encounter ID Performer Location Encounter Start Date Encounter Closed Date Diagnosis/Indication Diagnosis SNOMED-CT Code Diagnosis ICD10 Code Diagnosis Note [id number] Brody mora MD S_[facility] Internal Med [facility] 15 2043 [facility], [address] [address] 02/06/2021 00:00:00 03/15/2021 09:12:55 [id number] Brody mora MD S_[facility] Internal Med [facility] [address] [address] 03/15/2021 00:00:00 03/20/2021 09:36:32 [id number] [facility] ic_[facility] S_[facility] [place] [address] [place] [address] 04/10/2021 00:00:00 04/10/2021 13:28:43 [id number] Brody mora MD S_[facility] Internal Med [facility] 15 2043 [facility], [facility] 15 [place] [address] 05/15/2021 00:00:00 05/16/2021 13:12:12 [id number] Omero farley MD [facility] [address] [facility] [address] [place] [address] 06/12/2021 00:00:00 06/12/2021 14:14:33 [id number] Brody mora MD [facility] [place] [facility] [address] [facility] 15 [place] [address] 06/21/2021 00:00:00 06/21/2021 11:10:32 [id number] _ATHN_MIGR ATION_1 _ATHENA_M IGRATION_ DEFAULT_1 _1 , 07/09/2021 00:00:00 07/09/2021 17:02:21 [id number] MD CURT Brown_[facility] [address] [facility] [address] [place] [address] 08/14/2021 00:00:00 08/15/2021 17:19:35 [id number] MD CURT Brown_[facility] [address] [facility] [address] [facility] [place] [address] 11/19/2021 00:00:00 01/21/2022 15:53:56 [id number] MD JEANNETTE [facility] [place] [address] [facility] [address] [place] [address] 12/18/2021 00:00:00 12/18/2021 16:56:08 [id number] MD CURT Brown_[facility] [address] [facility] 15 [place] [address] 01/31/2022 00:00:00 03/26/2022 14:20:03 [id number] MD [facility]TE [facility] [place] [address] [place] [address] 03/27/2022 00:00:00 04/12/2022 11:43:40 [id number] Brody mora MD [facility] [place] Med [facility] [address] [place] [address] Ave[address] [address] 06/06/2022 00:00:00 07/25/2022 16:43:39 [id number] Brody mora MD [facility] Internal Med [facility] [address] [place] [address] Ave[address] [address] 06/27/2022 00:00:00 06/27/2022 12:14:26 [id number] Brody mora MD [facility] Internal Med [facility] [address] [facility] [address] [address] 09/17/2022 00:00:00 09/17/2022 11:57:41 [id number] Jelena Villeda, [employer] ASS[employer]ANCE ENGINEER-[facility] [place] [address] [place] [address] 11/11/2022 00:00:00 11/11/2022 13:01:48 [id number] Brody mora MD [facility] Internal Med [facility] [address] [place] [address]., [address] [address] 01/16/2023 11:06:15 01/16/2023 12:42:18 Screening - NAD 783675467 Z13.9 C-scope: S/p surgery for diverticul itis 08/12/17 Dr Packer t another C-scope done, sees her GI Mammogram: 02/26/18 Neg 9: Neg 021: NegOrdered [...] her understand ing of the above Hyperlipidemia 74209723 E78.5 On rosuvastat in 40mg daily, but stopped this on her own, will need to restart 09/17/2022 Not on vascepaGet labs 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 140484803 E11.9 On glipizide will decrease to 2.5mg daily as she did have a low glucose and felt presyncopa l 11/19/2021 , now on 5mg post hosp d/c 01/22/2022 , not taking this at this time 06/06/2022 On ozempicGet labsNeeds to see eye MD and podiatry Addendum: 03/26/2022 :She is cleared for surgeryDr BravoonCata ractDate: 04/15/2022 OV 09/17/2022 :On ozempic, does well, no hx of MEN 2 or pancreatit isDoes well nowGet labs Chronic ki dney disease 737267771 N18.[address] Benavides On calcitriol On vit d weekly On lokelma (to treat high K), but not taking this as per her 11/19/2021 On mag ox Obstructiv e sleep apnea syndrome 69857820 G47.33 On CPAPSee pulmonary History of bariatric surgical procedure 599326205 Z98.[address] Mccray 07/09/2021 : Did not do the EGD as she was told to go an 1.5 hour awayGet a referral to Dr Sylvain VILLALOBOS 11/19/2021 Hypothyroidism 78422567 E03.9 On euthyrox 50mcgs daily US thyroid 07/06/2021 : Neg Pain of ri ght elbow joint 3109002177 8193236 M25.521 Still c/o pain and unable to extend the elbowAlso c/o pain in the R wrist Dr Calderon 12/18/2021 , 03/27/2022 , may need elbow arthroplas ty, and cardiac clearance, she did see [facility] MD Dr Zaldivar on 06/12/2022 as per her history today 09/17/2022 and was told no surgery needed Near syncope 744061737 R 55 [facility] 08/16/2022 , Dr Foley, next apt is in 6 months Diaphragmatic hernia 398 04012 K44.9 S/p [facility] ER, 07/04/2022 , EGD 07/04/2022 Dr Narayan Essential hypertension 36051231 I10 S/p Roldan ICD 020: Seen in ER CNE as the Biotronik ICD was firing, as per Dr Alejandra this is lead noise and not true v-tach, pt d/c with f/u in Dr Alejandra' s office On ASAOn entresto 24-26mg bid Dr FoleyOn sotalol 80mg bid, changed to 40mg bid post d/c [facility] 01/22/2022 On mag ox Sees [facility] Dr Foley last OV 08/16/2022 , next in 6 months Moderate r ecurrent major depression 01765942 F33.1 On venlafaxin e ER 75mg dailyOn xanax 0.5mg daily as needed but uses this very rarelyOn buspirone 10mg po bid all side effects explained to her Does well, not suicidal or homicidalD eclines any psychiatry referrals Excess yousif niculus of abdomen 4744746492 101 E65 S/p surgery Dr Funes, she self referred to him Infected wound on 02/24/2021 and was readmitted , wound exploratio n and packing done in OR by Dr Lazo on 02/24/2021 Does well nowOn tramadol, advised to not take this often Small glenda l obstruction 760774018 K56.609 Admitted [facility], d/c 01/22S/p resection 01/16/2022 , treated with IV antibiotic s and PICC line as was NPO 01/22/2022 :CMP: Gluc 100, AST 37HCBC: WBC 10.8H, H/H 10.8/33.5 Does well now Thrombocyt openic disorder 827523750 D69.6 Dr Willis 04/25/2022 Transient cerebral ischemia 370763387 G45.9 This is new history as per herShe has seen a neurologis t in [place], cannot recall the nameShe has signed a LUDMILA and will call with the name Dr Hernandez 02/18/2022 Screening mammography 24 497977 Z12.31 Constipation 98034942 K5 9.00 Did see WILFREDO Roland [employer] LEAD TEACHER on 01/14/2023 and did do an xray abd, now is on linzess as per her history Pain of left wrist 84769 03041 39590 M25.532 S/p EMG done by Dr Brand an apt with hand surgery [id number] Brody mora MD [facility] Internal Med [facility] 15 2043 [facility], [address] [place] [address] 04/24/2023 13:58:13 04/24/2023 14:35:06 Screening - NAD 971856694 Z13.9 C-scope: S/p surgery for diverticul itis [...] her understand ing of the above Hyperlipidemia 96413651 E78.5 On rosuvastat in 40mg daily, but stopped this on her own, will need to restart 09/17/2022 Not on vascepaGet labs 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 611705350 E11.9 On glipizide will decrease to 2.5mg [...] labs, does well Chronic ki dney disease 932732608 N18.[address] with Dr Benavides On calcitriol On vit d weekly On lokelma (to treat high K), but not taking this as per her 11/19/2021 On mag ox Obstructiv e sleep apnea syndrome 46786468 G47.33 On CPAPSee pulmonary History of bariatric surgical procedure 899949184 Z98.[address] Mccray 07/09/2021 : Did not do the EGD as she was told to go an 1.5 hour awayGet a referral to Dr Narayan GI 11/19/2021 Dr Narayan 02/05/2023 , started on linzess, f/u in 3 monthsNot taking linzess now Hypothyroidism 53124046 E03.9 On euthyrox 50mcgs daily US thyroid 07/06/2021 : Neg Pain of ri ght elbow joint 9931052616 0859939 M25.521 Still c/o pain and unable to extend the elbowAlso c/o pain in the R wrist Dr Calderon 12/18/2021 , 03/27/2022 , may need elbow arthroplas ty, and cardiac clearance, she did see [facility] MD Dr Zaldivar on 06/12/2022 as per her history 09/17/2022 and was told no surgery needed Near syncope 755128872 R 55 [facility] 08/16/2022 , Dr Foley, next apt is in 6 months Diaphragmatic hernia 398 66650 K44.9 S/p [facility] ER, 07/04/2022 , EGD 07/04/2022 Dr Narayan Essential hypertension 29696228 I10 S/p Roldan ICD 020: Seen in ER CNE as the Biotronik ICD was firing, as per Dr Alejandra this is lead noise and not true v-tach, pt d/c with f/u in Dr Alejandra' s office On ASAOn entresto 24-26mg bid Dr Tillman sotalol 80mg bid, changed to 40mg bid post d/c [place] 01/22/2022 On mag ox Sees [facility] Dr Foley last OV 02/28/2023 , next in 6 months Moderate r ecurrent major depression 43535069 F33.1 On venlafaxin e ER 75mg dailyOn xanax 0.5mg daily as needed but uses this very rarelyOn buspirone 10mg po bid all side effects explained to her Does well, not suicidal or homicidalD eclines any psychiatry referrals Excess yousif niculus of abdomen 2486973529 101 E65 S/p surgery Dr Funes, she self referred to him Infected wound on 02/24/2021 and was readmitted , wound exploratio n and packing done in OR by Dr Lazo on 02/24/2021 Does well nowOn tramadol, advised to not take this often Small glenda l obstruction 030409288 K56.609 Admitted [facility], d/c 01/22S/p resection 01/16/2022 , treated with IV antibiotic s and PICC line as was NPO 01/22/2022 :CMP: Gluc 100, AST 37HCBC: WBC 10.8H, H/H 10.8/33.5 Does well now Thrombocyt openic disorder 082721924 D69.6 Dr Willis 02/28/2023 , f/u in 6 months Transient cerebral ischemia 830773983 G45.9 This is new history as per herShe has seen a neurologis t in [place], cannot recall the nameShe has signed a LUDMILA and will call with the name Dr Hernandez 02/18/2022 Screening mammography 24 193013 Z12.31 Constipation 87883310 K5 9.00 Did see WILFREDO Roland [employer] LEAD TEACHER on 01/14/2023 and did do an xray abd, now is on linzess as per her history Pain of left wrist 57632 87260 01199 M25.532 S/p EMG done by Dr Brand an apt with hand surgery Screening for osteoporosis 804392391 Z13.820 Adult heal th examination 571287864 Z00.00 Screening for disorder 405597313 Z13.9 Skin lesion 56040250 L98 .9 Left anterior leg, small tender lesion noted, refer to Dr Cm [id number] Massimo Porter DPM [facility] [place] [address] [facility] [address] [place] [address] 06/03/2023 09:34:08 06/03/2023 10:36:29 Pain of toe of left foot 3968282048 43409 M79.675 left 2nd previous surgeryxra ys orderedcon t Supportive shoe gearfollow -up in 3 months Bunion 908782739 M21.61 1 xrays orderedfol low-up x-rays Osteoarthritis 320489857 M19.90 right midfootxra ys orderedfol low-up x-rays Diabetes mellitus 646053 09 E11.9 Patient educated on neuropathy , diabetes, diabetic diet, and daily foot exams. Patient is to check feet daily for new wounds, blisters, redness to prevent infection and ulceration s to the feet. Patient will return to clinic in 3 months for diabetic foot workup. Dystrophia unguium [id number] 009 L60.3 Nails 1 through 10 were [...] Guarantor Name 01/16/2023 1 [place] Katheryn F Scarlett [id number] Katheryn F Scarlett 01/16/2023 2 [employer] (MEDICARE SUPPLEMENT) [employer] Katheryn F Scarlett [id number] Katheryn F Scarlett 04/24/2023 1 [place] Katheryn F Scarlett [id number] Katheryn F Scarlett 04/24/2023 2 [employer] (MEDICARE SUPPLEMENT) [employer] Katheryn F Scarlett [id number] Katheryn F Scarlett 06/03/2023 1 [place] Katheryn F Scarlett [id number] Katheryn F Scarlett 06/03/2023 2 [employer] (MEDICARE SUPPLEMENT) [employer] Katheryn Pantoja [id number] Katheryn Pantoja Notes Date Note Type Note Provider Name and Address Organization Details Recorded Time 3 text/html Here to establish carePast Hx:HTNArrhythmiaHypothyr oidismHLDDepressionRevie wed social family and surgical historyHere to establish care and get labsShchloe has had recent abd surgery, is doing [...] did see Dr Pham and did have labsShchloe also states that she has had lateral epicondylitis on the R and now feels that it is back, she is R HD, 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 and also cannot extend her elbow, pain is sharp and hurts more with a instructor dramatic arts OV 04/07/18ACV:She is here as she is having headaches, she states that she may have knocked the lead of the pacemaker with the alana, is to get the new leads this Thrusday at [facility] with Dr Cabrera states that she is [...] also OV 11/16/2020:Here for her routine aptShe feels Gerri has seen plastic surgeon Dr Funes for a pannulectomy, and is now to get a CT abd/pelvis ordered by him todayLinda has done the labs on 10/04/2020 OV 02/06/2021:ACV:C/o neck pain since about a weekNo acute trauma to the neck, but has pain with turning the neck side to sideNo N/T or weakness in the roldan UENo parasthesia notedStates that she slept 'wrong on the recliner'Also c/o R elbow pain, unable to extend OV 03/15/2021:Here for post hosp for infection surgical lacerationNow does Gerri is here with her husbandAlso [...] but was seen in the ER at [facility] yesterday for a pre syncopal episode, states that she did have a CT head and labs and was d/c home to follow up with her PCPExtensive ROS noted for CVS and CNSShe is here with her Naresh recent labs OV 01/31/2022:TCM: d/c 01/22/2022 [facility] for SBO, s/p resection on 01/15/2022, Dr Neri with her , feels Gerri does state that she has seen a neurologist in [place], she was referred by her tyre builder as there was concern about her having [...] do the labs Brody Collado MD [address] [facility], [place], [address], [place] [facility] 01/16/2023 13:11:27 3 text/html Here to establish [...] she is R HD, 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 and also cannot extend her elbow, pain is sharp and hurts more with a gripOV 04/07/18ACV:She is here as she is having headaches, she states that she may have [facility], is to get the new leads this Thrusday at [facility] with Dr Cabrera states that she is [...] URI symptoms OV 09/02/19:Here for her routine aptShchloe feels well at this timeShe did do [...] get a CT abd/pelvis ordered by him todayLinda has done the labs on 10/04/2020OV 02/06/2021:ACV:C/o neck pain since about a weekNo acute trauma to the neck, but has pain with turning the neck side to sideNo N/T or weakness in the roldan UENo parasthesia notedStates that she slept 'wrong on the recliner'Also c/o R elbow pain, unable to extend OV 03/15/2021:Here for post hosp for infection surgical lacerationNow does Gerri is here with her husbandAlso [...] 08/14/2021:Here for her routine aptShe is doing Gerri is here with her husbandShe did the labs 07/30/2021 for TSH/FT4She is here also for her MWVOV 11/19/2021:Here for her routine aptShe is doing well today but was seen in the ER at [facility] yesterday for a pre syncopal episode, states that she did have a CT head and labs and was d/c home to follow up with her PCPExtensive ROS noted for CVS and CNSShe is here with her Naresh recent labsOV 01/31/2022:TCM: d/c 01/22/2022 [facility] for SBO, s/p resection on 01/15/2022, Dr Neri with her , feels Gerri does state that she has seen a neurologist in [place], she was referred by her tyre builder as there was concern about her having [...] or stool Brody Collado MD [address], [facility] [address], [place], [address], [facility] 08/18/2023 14:50:39 3 text/html . Patient is [...] any other pedal complaints. Massimo Porter DPM [address], [facility] [address], [place], [address], [employer] 06/03/2023 10:33:42 OBGyn Episode No OBEpisode recorded.
--- OUTSIDE RECORDS SUMMARY | 2025-03-23 10:29 | XMS_ITS | Clinical Summary ---
Author Organization [facility] Address [address] [facility] [address] [place] [address] Phone Care Team Providers Care Nursing Faculty Name Role Phone Duglas Collado MD Primary [...] Encounters Date Type Department Care Team Description 03/17/2025 External Device Data ST[facility] ABSTRACTION Provider, Abstract 03/16/2025 External Device Data [facility] ABSTRACTION Provider, Abstract 03/15/2025 External Device Data [facility] ABSTRACTION Provider, Abstract 01/12/2025 External Device Data ST[facility] ABSTRACTION Provider, [...] Comments Blood Pressure 104/71 2024 2:17 PM SOIL SCIENTIST Pulse 91 2024 2:17 PM SOIL SCIENTIST Temperature 36.9 C (98.4 F) 2024 2:17 PM SOIL SCIENTIST Respiratory Rate 15 2024 2:17 PM SOIL SCIENTIST Oxygen Saturation 95% 2024 2:17 PM SOIL SCIENTIST Inhaled Oxygen Concentration - - Weight 69.3 kg (152 lb 12.8 oz) 2024 2:17 PM SOIL SCIENTIST Height 152.4 cm (5') 04/25/2022 11:38 AM CDT Body Mass Index 29.84 04/25/2022 11:38 AM CDT Plan of Treatment Upcoming Encounters Date Type Department Care Team (Late st Contact Info) Description 04/12/2025 11:00 AM CDT Office Visit [facility] Oncology and Hematology - Likely [address] [facility] [address] [place] [address] Brandon Willis MD [address] [facility] [address] [place] [address] Health Maintenance Due Date Last [...] , 09/19/2019 Medical Devices Implanted Type Area Remote Sensing Program Manager Device Identifier Shelf Expiration Date Model / Serial / Lot Lap Band,Bilat Knee Replacement Implanted:(Quantit y not on file) Explanted:(Quantit y not on file) Insurance [facility] MEDICARE SUPP AESSI MEDICARE PART A AND B [employer] MEDICARE SUPP AESSI Advance Directives For more information, please contact: [phone] * Full Code (Latest Code Status on File) Date Activated Date Inactivated Comments 07/05/2014 8:17 AM 07/05/2014 11:32 AM * Full Code Date Activated Date Inactivated Comments 07/05/2014 6:54 AM 07/05/2014 8:17 AM Care Teams Nursing Faculty Relationship Specialty Start Date End Date Duglas Collado MD PCP - General Internal Medicine 03/27/22
--- OUTSIDE RECORDS SUMMARY | 2025-03-23 10:30 | XMS_ITS | CONTINUITY OF CARE DOCUMENT ---
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 active Juno Foley MD Diabetes Mellitus, Type II, controlled w/vascular complications completed - Mk Alejandra MD Diabetes mellitus type II active Juno [...] In-person encounter Office Visit Juno Foley MD [facility] 4 - 4 In-person encounter Office Visit Juno Foley MD [facility] Chest pain-type to be determined 8 - 3 In-person encounter Office Visit Mk Alejandra MD [facility] Shortness of breathDiabetes Mellitus, Type II, controlled w/vascular complications 3 - 3 In-person encounter Office Visit Juno Foley MD [facility] 8 - 8 In-person encounter Office Visit Juno Foley MD [facility] 9 - 2 In-person encounter Office Visit Mk Alejandra MD [facility] 5 - 5 In-person encounter Office Visit Mk Alejandra MD [facility] 1 - 1 In-person encounter Office Visit Mk Alejandra MD [facility] 6 - 6 In-person encounter Office Visit Mk Alejandra MD [facility] 0 - 0 In-person encounter Office Visit Juno Foley MD [facility] 5 - 5 In-person encounter Office Visit Juno Foley MD [facility] 1 - 1 In-person encounter Office Visit Juno Foley MD [facility] 4 - 4 In-person encounter Office Visit Juno Foley MD [facility] Panic attack?CAD, nonobstructive disease on cath 2017 4 - 6 In-person encounter Office Visit Juno Foley MD [facility] 0 - 0 In-person encounter Office Visit Juno Foley MD [facility] 7 - 7 In-person encounter Office Visit Juno Foley MD [facility] Panic attack? 0 - 2 In-person encounter Office Visit Juno Foley MD [facility] 4 - 4 In-person encounter Office Visit Juno Foley MD [facility] 4 - 7 In-person encounter Office Visit Juno Foley MD [facility] 2 - 2 In-person encounter Office Visit Juno Foley MD [facility] 6 - 6 In-person encounter Office Visit Juno Foley MD [facility] 4 - 4 In-person encounter Office Visit Juno Foley MD [facility] 6 - 6 In-person encounter Office Visit Mk Alejandra MD [facility] Office S/P Medtronic (MRI Safe) REVEAL/LinQ 3 - 3 In-person encounter Office Visit Mk Alejandra MD [facility] 6 - 6 In-person encounter Office Visit Mk Alejandra MD [facility] 5 - 6 In-person encounter Office Visit Mk Alejandra MD [facility] 3 - 3 In-person encounter Office Visit Mk Alejandra MD [facility] 4 - 5 In-person encounter Office Visit Mk Alejandra MD [facility] 8 - 3 In-person encounter Office Visit Mk Alejandra MD [facility] 1 - 1 In-person encounter Office Visit Mk Alejandra MD [facility] 0 - 0 In-person encounter Office Visit Juno Foley MD [facility] SyncopeDiabetes mellitus type II 8 - 4 In-person encounter Office Visit Juno Foley MD [facility] 0 - 0 In-person encounter Office Visit Mk Alejandra MD [facility] Leg edema, bilateral 6 - 2 In-person encounter Office Visit Mk Alejandra MD [facility] Urinary tract infection 4 - 4 In-person encounter Office Visit Mk Alejandra MD [facility] 9 - 9 In-person encounter Office Visit Mk Alejandra MD [facility] 7 - 7 In-person encounter Office Visit Mk Alejandra MD [facility] 0 - 0 In-person encounter Office Visit Juno Foley MD [facility] 0 - 0 In-person encounter Office Visit Mk Alejandra MD [facility] S/P BiV ICD Biotronik//Genchange BiV ICD Biotronik 12/22/23 ( MRI Safe) 6 - 6 In-person encounter Office Visit Emmy Pham MD [facility] 0 - 5 In-person encounter Office Visit Mk Alejandra MD [facility] Examination, preoperative cardiovascular 1 - 4 In-person encounter Office Visit Mk Alejandra MD [facility] 1 - 1 In-person encounter Office Visit Juno Foley MD [facility] 4 - 4 In-person encounter Office Visit Mk Alejandra MD [facility] Ventricular tachycardia, sustained 1 - 1 In-person encounter Office Visit Juno Foley MD [facility] 0 - 1 In-person encounter Office Visit Juno Foley MD [facility] Dizziness 6 - 6 In-person encounter Office Visit Mk Alejandra MD [facility] 9 - 9 In-person encounter Office Visit Mk Alejandra MD [facility] 2 - 7 In-person encounter Office Visit Mk Alejandra MD [facility] 4 - 6 In-person encounter Office Visit Edin Suresh DO [facility] 8 - 8 In-person encounter Office Visit Juno Foley MD [facility] 2 - 2 In-person encounter Office Visit Mk Alejandra MD [facility] 1 - 6 In-person encounter Office Visit Mk Alejandra MD [facility] 5 - 5 In-person encounter Office Visit Mk Alejandra MD [facility] FatigueNausea/Vomiting 2 - 2 In-person encounter Office Visit Mk Alejandra MD [facility] 7 - 7 In-person encounter Office Visit Juno Foley MD [facility] 4 - 7 In-person encounter Office Visit Mk Alejandra MD [facility] Other symptoms involving cardiovascular systemObesityLBBBMitral regurgitationCHFVentricular tachycardia, nonsustained 3 - 3 In-person encounter Office Visit Juno Foley MD [facility] CardiomyopathyPVC's 0 - 0 In-person encounter Office Visit Juno Foley MD [facility] HyperlipidemiaHTN essentialDiverticulitis, colonHypothyroidismPreoperative cardiovascular examinationSleep apnea--on [...] lder weight E&M 145 [lb_av] Qi Flores [facility] height E&M 60 [in_i] Qi Flores [facility] Body Mass Index (Ratio) 28.90 kg/m2 Onur Foley MD blood pressure, diastolic 89 mm[Hg] Yasmin shirley [place] blood pressure, systolic 127 mm[Hg] [facility] saturation, oximetry 95 % [facility] pulse rate 103 /min [facility] respiratory rate E&M 12 /min [facility] weight E&M 148 [lb_av] [facility] height E&M 60 [in_i] [facility] blood pressure, cuff size regular An [facility]Bloom[facility] blood pressure, diastolic -1 mm[Hg] Cailin nkLog blood pressure, systolic 129 mm[Hg] Snehal kLog Body Mass Index (Ratio) 29.49 kg/m2 Barrett Bradleyzai blood pressure, diastolic 79 mm[Hg] Jessica yla [facility] blood pressure, systolic 129 mm[Hg] Radha la [facility] blood pressure, cuff size regular Jessica yla [facility] pulse rate 82 /min [facility] oxygen saturation, oximetry 96 % [facility] weight E&M 151 [lb_av] Tania [facility] height E&M 60 [in_i] Tania [facility] Body Mass Index (Ratio) 29.88 kg/m2 Onur Foley MD blood pressure, cuff size regular Matheus Diana blood pressure, diastolic 82 mm[Hg] Ta elvis Diana blood pressure, systolic 132 mm[Hg] Tab ithabby Diana oxygen saturation, oximetry 97 % Jordynabby Diana pulse rate 75 /min Jordyn [place] weight E&M 153 [lb_av] Jordyn [place] respiratory rate E&M 12 /min Jordyn [place] height E&M 60 [in_i] Jordyn [place] Body Mass Index (Ratio) 29.53 kg/m2 Onur Foley MD pulse rate 74 /min [facility] blood pressure, cuff size large Matheus leal [place] blood pressure, diastolic 78 mm[Hg] [facility], systolic 124 mm[Hg] [facility] oxygen saturation, oximetry 96 % [facility] respiratory rate E&M 12 /min [facility] weight E&M 151.2 [lb_av] [facility] height E&M 60 [in_i] Jordyn [place] Body Mass Index (Ratio) 29.49 kg/m2 [facility] blood pressure, cuff size regular Ja [facility] blood pressure, diastolic 76 mm[Hg] [facility] blood pressure, systolic 128 mm[Hg] [facility] pulse rate 62 /min [facility] oxygen saturation, oximetry 99 % [facility] respiratory rate E&M 14 /min [facility] weight E&M 151 [lb_av] [facility] height E&M 60 [in_i] [facility] y Body Mass Index (Ratio) 29.88 kg/m2 Barrett rae blood pressure, cuff size regular Ke rri [facility] blood pressure, diastolic 80 mm[Hg] Ke rri [...] blood pressure, cuff size regular Kr isty [place] blood pressure, diastolic 90 mm[Hg] Kr isty [place] blood pressure, systolic 120 mm[Hg] Kri sty [place] pulse rate 78 /min Luda Soy oxygen [...] pressure, diastolic, left arm 6 mm[ Hg] [facility], [facility], left arm 100 mm [Hg] blood pressure, diastolic, right arm 60 m m[Hg] blood pressure, systolic, right arm 100 m m[Hg] blood pressure, diastolic 60 mm[Hg] Ki blood pressure, systolic 100 mm[Hg] Sue khan [place] oxygen saturation, oximetry 97 % Morgan respiratory rate E&M 16 /min pulse rate 61 /min [facility] weight E&M 214 [lb_av] Morgan height E&M 60 [in_i] [facility] Body Mass Index (Ratio) 41.59 kg/m2 [...] er height E&M 60 [in_i] Qi Gruenenfe [facility] Body Mass Index (Ratio) 40.62 kg/m2 Donte Alejandra MD blood pressure, cuff size large Ke rri Akshatneannabelbaylor [facility] blood pressure, diastolic 70 mm[Hg] Ke rri Gruenenfelder blood pressure, systolic 130 mm[Hg] Rosa Maria Landaverdeuenenfelder oxygen saturation, oximetry 97 % Qi Odenneannabelelder respiratory rate E&M 20 /min Qi Harvey gayenenfelder pulse rate 70 /min Qi Odenneannabele [facility] weight E&M 208 [lb_av] Qi Toroe [facility] height E&M 60 [in_i] Qi Munae er Body Mass Index (Ratio) 41.05 kg/m2 Willy fernandez Raphael blood pressure, diastolic 75 mm[Hg] Evon Velacso blood pressure, systolic 127 mm[Hg] Mindy Velasco oxygen saturation, oximetry 97 % Amadeo Velasco respiratory rate E&M 18 /min Kaia Velasco pulse rate 70 /min Amadeo foster weight E&M 210.2 [lb_av] Amadeo benedict height E&M 60 [in_i] Amadeo monahanon Body Mass Index (Ratio) 40.03 kg/m2 Willy [facility] blood pressure, cuff size large Ke rri [...] pressure, systolic 120 mm[Hg] Rosa Maria ri Munaproctor hospitaler oxygen saturation, oximetry 98 % Qi Torobaylor [facility]ott [facility] respiratory rate E&M 20 /min Qi Gabriel frankykambaylor [facility] pulse rate 70 /min Qi Flores er weight E&M 202 [lb_av] Qi Flores er height E&M 60 [in_i] Qi Flores er Body Mass Index (Ratio) 39.84 kg/m2 Chivo Pham MD pulse rate 68 /min [facility] saturation, oximetry 97 % Jesús [facility] blood pressure, diastolic 70 mm[Hg] Isael Phillips blood pressure, systolic 112 mm[Hg] Sujata Phillips respiratory rate E&M 16 /min Jesús [facility]crow[facility]m psychiatric centerfrancisco weight E&M 204 [lb_av] [facility] height E&M 60 [in_i] [facility] Body Mass Index (Ratio) 40.03 kg/m2 Cuauhtemoc Shipley blood pressure, diastolic 60 mm[Hg] Ki lleen [place] blood pressure, systolic 112 mm[Hg] Kil bill [place] oxygen saturation, oximetry 98 % [place] respiratory rate E&M 16 /min [place] pulse rate 73 /min Andrea weight E&M 205 [lb_av] [place] height E&M 60 [in_i] [place] Body Mass Index (Ratio) 39.84 kg/m2 [...] Luda Soy pulse rate 72 /min [place] oxygen saturation, oximetry 98 % [place] height E&M 60 [in_i] [place] Body Mass Index (Ratio) 40.62 kg/m2 Donte [...] khan [place] oxygen saturation, oximetry 93 % [place] respiratory rate E&M 16 /min Andrea Morgan pulse rate 16 /min weight E&M 204 [lb_av] height E&M 60 [in_i] [facility] Index (Ratio) 40.03 kg/m2 Donte Alejandra MD blood pressure, cuff size regular Ke rri Mally blood pressure, diastolic 72 mm[Hg] Ke rri Mally blood pressure, systolic 118 mm[Hg] Rosa Maria Bal oxygen saturation, oximetry 98 % Qi Bal respiratory rate E&M 18 /min Qi rangel pulse rate 70 /min Qi Flores [facility] weight E&M 205 [lb_av] Qi Flores er height E&M 60 [in_i] Qi Flores [facility] Body Mass Index (Ratio) 38.08 kg/m2 Mee Martini NP blood pressure, diastolic 70 mm[Hg] Julien isty Soy blood pressure, systolic 110 mm[Hg] Julieni nelly [place] oxygen saturation, oximetry 98 % [place] respiratory rate E&M 17 /min [place] pulse rate 70 /min [place] weight E&M 195 [lb_av] [place] blood pressure, cuff size regular Kr isty Soy height E&M 60 [in_i] Luda Olivier Body Mass Index (Ratio) 38.47 kg/m2 Ounr Foley MD blood pressure, diastolic 68 mm[Hg] Francisco chaidez [place] blood pressure, systolic 112 mm[Hg] Sue Riberaam oxygen saturation, oximetry 98 % Andrea Morgan respiratory rate E&M 16 /min Andrea Morgan pulse rate 74 /min [place] weight E&M 197 [lb_av] Andrea [place] height E&M 60 [in_i] Andrea [place] Body Mass Index (Ratio) 37.49 kg/m2 Donte Alejandra MD respiratory rate E&M 19 /min Marie Burnett blood pressure, diastolic 70 mm[Hg] Matheus hoover [place] blood pressure, systolic 112 mm[Hg] Omalley evita [place] pulse rate 75 /min Marie [place] oxygen saturation, oximetry 98 % [facility] blood pressure, cuff size regular Matheus hoover [place] weight E&M 192 [lb_av] Marie Burnett height E&M 60 [in_i] [facility] Body Mass Index (Ratio) 38.66 kg/m2 Donte [...] Body Mass Index (Ratio) 38.43 kg/m2 Onur Foely MD blood pressure, diastolic 88 mm[Hg] Evon [...] LinkLogic 3.5-5.2 sodium, serum 141 mmol/L LinkLogic [phone]/05 /15 urea nitrogen/creatinine ratio, serum 20 LinkLogic [...] mmol/L LinkLogic 3.5-5.2 sodium, serum 144 mmol/L [facility] [phone]/10 /24 urea nitrogen/creatinine ratio, serum 18 LinkLogic [...] Not Estab. platelet count 155 X10E3/UL LinkLogic [phone]/10 /24 red blood cell distribution width 12.7 [...] 3.5-5.2 High sodium, serum 144 mmol/L LinkLogic [phone]/01 /31 urea nitrogen/creatinine ratio, serum 17 LinkLogic [...] LinkLogic 3.5-5.2 sodium, serum 141 mmol/L LinkLogic [phone]/11 /28 urea nitrogen/creatinine ratio, serum 18 LinkLogic [...] Not Estab. platelet count 203 X10E3/UL LinkLogic [phone]/11 /28 red blood cell distribution width 14.4 [...] LinkLogic 3.5-5.2 sodium, serum 140 mmol/L LinkLogic [phone]/10 /12 urea nitrogen/creatinine ratio, serum 17 LinkLogic [...] Not Estab. platelet count 219 X10E3/UL LinkLogic [phone]/06 /06 red blood cell distribution width 13.7 [...] 3.5-5.2 High sodium, serum 142 mmol/L LinkLogic [phone]/06 /06 urea nitrogen/creatinine ratio, serum 22 LinkLogic [...] percentage of total cells, blood 0.2 % [facility] - nucleated red blood cells as percent of blood leukocytes 0.3 % [facility] - red blood cell [...] - 3.9 mean platelet volume 13.8 (?) [facility] - platelet count 169.0 THOUSAND/UL LinkLogic [...] percentage of total cells, blood 0.1 % [facility] - mean corpuscular volume, RBC 94.0 fL LinkLog 75.0 - 100.0 hematocrit, blood 43.7 % [facility] 35.0 - 55.0 hemoglobin, blood 13.6 g/dL LinkLog 11.5 - 16.5 erythrocyte count, whole blood 4.7 MILLION/UL LinkLog 3.5 - 5.5 trichomonas vaginalis, urine None seen LinkLog urine crystals, microscopic None seen [facility] casts, urine, microscopic None seen [facility] mucus on urinalysis None seen [facility] Not Estab. nucleated red blood cells as percent of blood leukocytes 0.0 % [facility] - red blood cell (erythrocyte) count, per high power field 0.0 10*3/UL [facility] - eosinophils as percent of blood leukocytes 3.0 % [facility] - neutrophils as percent of blood leukocytes 57.7 % [facility] - Absolute Neutrophils 4.1 CELLS/UL LinkLog 1.5 - 7.8 basophils as percent of blood leukocytes 0.7 % [facility] - Absolute Basophils 0.1 CELLS/UL LinkLogic 0.0 - 0.2 monocytes as percent of blood leukocytes 14.3 % [facility] - Absolute Monocytes 1.0 CELLS/UL LinkLog 0.2 - 1.0 High lymphocytes as percent of blood leukocytes 24.2 % [facility] - Absolute Lymphocytes 1.7 CELLS/UL LinkLogic 0.9 - 3.9 mean platelet volume 13.6 (?) [facility] - platelet count 145.0 THOUSAND/UL LinkLog 100.0 [...] 10 days - Jesús Phillips VITAMIN D3 26424 UNIT ORAL TABLET completed TAKE ONE TAB [...] completed ONE TAB. TWICE DAILY - Emmy Pahm MD levothyroxine 50 mcg tablet active 1 [...] History: Caterina best has never smoked. Juno Floey MD social history reviewed E&M revi ewed [...] smoking status Never smoker Rachel Breen in INSTRUMENT WORKER social history reviewed E&M revi ewed - [...] MD smoking status Never smoker Amadeo Darby [facility] social [facility] reviewed E&M revi ewed - no changes required Puma Benigno smoking status Never smoker Amadeo Darby [facility] social history reviewed E&M revi ewed - [...] required Juno Foley MD alcohol counseling yes [place] I ngram alcohol use, average drinks per day 4+ Andrea Morgan alcohol use yes [place] Morgan smoking status Never smoker [place] Ingra m number of grandchildren Juno Foley [...] revi ewed - no changes required Josh Lmi social history E&M S moking History: P [...] use, average drinks per day 4+ Luda [place] alcohol use yes Luda Soy smoking status [...] day 4+ Andrea Morgan alcohol use yes [place] Morgan smoking status Never smoker Andrea Riberaa m alcohol counseling yes Qi howellfelder alcohol use, average drinks per day 4+ Qi Odenmarileeer alcohol use yes Qi Hernandezkhushi lder smoking status Never smoker Qi naqvi number of grandchildren Mk Drake Hu INSTRUMENT WORKER alcohol counseling yes Luda Bu sby alcohol use, average drinks per day 4+ [place] alcohol use yes Luda Soy smoking status Never smoker [place] number of grandchildren Juno Foley MD U nicole Foley MD social history reviewed E&M revi ewed - no changes required Juno Foley MD social history reviewed E&M revi ewed - no changes required Mk Alejandra MD smoking status Never smoker [facility] social history E&M S moking History: Caterina best has never smoked. [facility] social history reviewed E&M revi ewed - no changes required [facility] Leda alcohol counseling yes Qi Branch vadim alcohol use, average drinks per day 4+ Qi Ozer alcohol use yes Qi Hernandezannabelnathan lder social history reviewed E&M revi ewed - no changes required Mk Alejandra MD alcohol counseling yes Vidal Hu INSTRUMENT WORKER alcohol use, average drinks per day 4+ Vidal Hu INSTRUMENT WORKER alcohol use yes Vidal Hu INSTRUMENT WORKER smoking status Never smoker Vidal Hu INSTRUMENT WORKER number of grandchildren Mk Ellsworth social history [...] Osmin [place] number of grandchildren Mk Solorio [facility] social history E&M Smoking Histo ry: P atlakeisha has never smoked. Osmin [facility] social history reviewed E&M revi ewed - [...] Payer name Policy type / Coverage type [place] [facility] [employer] ID [place] Medicare [id number] ADVANCE DIRECTIVES Name Date DISCUSSED - NO DECISION MADE TREATMENT PLAN Date Name Performer [id number],B, Juno Foley MD [id number],C,seen on last echo Juno Foley MD [id number],C,last echo EF 60% Juno Foley MD [id number],C,p er PCP, she will start jardiance for renal protection l ast A1c 5.5% Juno Foley MD [id number],S, Juno Foley MD [id number],C, H er updated medication list for this problem includes: Crestor 20 Mg Tablet (Rosuvastatin) ..... Take 1 tablet once a day Juno Foley MD [id number],C, B P today: 120/79 P rior BP: 114/78 (08/16/2022) Labs Reviewed: C reat: 0.91 (03/10/2021) C hol: 211 (11/26/2018) HDL: 60 (11/26/2018) Her updated medication list for this problem includes: Sotalol 80 Mg Tablet (Sotalol) ..... Take 0.5 tablet by mouth twice a day Juno Foley MD [id number],B, Juno Foley MD [id number],B,I will repeat her echo in a month or so. She is on Entresto and Crestor. She also has a defibrillator Juno Foley MD [id number],S, Juno Foley MD [id number],B, Juno Foley MD [id number],S, Juno Foley MD [id number],S, Juno Foley MD [id number],S, A ppears stable. No chest pain. Continues on crestor. Her updated medication list for this problem includes: Sotalol 80 Mg Tablet (Sotalol) ..... Take 0.5 tablet once a day Juno Foley MD [id number],S, s he hasn't been using cpap at night Juno Foley MD [id number],S, I 'm going to cut her crestor to 20mg - I don't think she needs such a high dose since she has only mild CAD. Her updated medication list for this problem includes: Crestor 20 Mg Tablet (Rosuvastatin) ..... Take 1 tablet once a day Juno Foley MD [id number],S, N o recurrence K 4.4. 06/19/21 Juno Foley MD [id number],S, B P today: 101/59 P rior BP: 135/78 (11/19/2021) Her updated medication list for this problem includes: Sotalol 80 Mg Tablet (Sotalol) ..... Take 0.5 tablet once a day Juno Foley MD [id number],S, C lincally well compensated and is without shortness of breath. Continues on Entresto 49-51mg dose. Last EF was 60-65%. 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 Once a week as directed Entresto 24-26 Mg Tablet (Sacubitril-valsartan) ..... 1 tablet by mouth twice a day Glipizide 5 Mg Tablet Extended Release 24hr (Glipizide) ..... Take 1 tablet by mouth once a day Rachel Bautista NP [id number],S, E F 60~65% on last echo. Rachel Bautista NP [id number],S, C lincally well compensated and is without shortness of breath. Continues on Entresto 49-51mg dose today. Rachel Bautista NP [id number],S, T he patient is using CPAP on a regular basis. The patient has been benefiting from therapy and should continue use. Rachel Bautista NP [id number],S, E pisode in September 2017 leading to shock by defibrillator. No recurrence. Rachel Bautista HALEY [id number],W, P rescribed Buspar by PCP. Recommend neurology evaluation. Rachel Bautista HALEY [id number],S, H er updated medication list for this problem includes: Tricor 145 Mg Tablet (Fenofibrate nanocrystallized) ..... 1 tablet once a day Crestor 40 Mg Tablet (Rosuvastatin) ..... 1 tablet once a day Rachel Bautista HALEY [id number],S, B P today: 135/78 P rior BP: 110/79 (10/05/2021) Her updated medication list for this problem includes: Sotalol 80 Mg Tablet (Sotalol) ..... Take 0.5 tablet once a day Rachel Jerel DE LEON [id number],C, T he patient is using CPAP on a regular basis. The patient has been benefiting from therapy and should continue use. Juno Foley MD [id number],C, N o recurrence K 4.4. 06/19/21 Juno Foley MD [id number],C, H er updated medication list for this problem includes: Tricor 145 Mg Tablet (Fenofibrate nanocrystallized) ..... 1 tablet once a day Crestor 40 Mg Tablet (Rosuvastatin) ..... 1 tablet once a day Juno Foley MD [id number],C, s /p BIV ICD, no recent events or shocks Juno Foley MD [id number],C, B P today: 110/79 P rior BP: 130/80 (06/22/2021) Labs Reviewed: C reat: 0.91 (03/10/2021) C hol: 211 (11/26/2018) HDL: 60 (11/26/2018) Her updated medication list for this problem includes: Sotalol 80 Mg Tablet (Sotalol) ..... Take 0.5 tablet once a day Juno Foley MD [id number],B, C lincally well compensated and is without shortness of breath. Continues on Entresto 49-51mg dose today. Juno Foley MD [id number],B, E F 60~65% on last echo. Juno Foley MD [id number],S, Rachel brian INSTRUMENT WORKER [id number],B, Rachel brian INSTRUMENT WORKER [id number],N,P rescribed Buspar by PCP. Feels better. Rachel Bautista NP [id number],B,resolved Abhinav Bautista NP [id number],S, Juno Foley MD [id number],B,on last echo. Juno Foley MD [id number],C,will repeat b mp. Juno Foley MD [id number],C,T his may be a vasovagal attack, but [...] medical condition(s) listed above for the patient. [facility]:No signs of decompensation This visit has been a part of the consistent, comprehensive, and ongoing management of the chronic medical condition(s) listed above for the patient. [facility] Cardiology:This visi t has been a part of the consistent, comprehensive, and ongoing management of the chronic medical condition(s) listed above for the patient. Her updated medication list for this problem includes: Jardiance 10 Mg Tablet (Empagliflozin) Ozempic 0.25 Mg Or 0.5 Mg(2 Mg/1.5 Ml) Pen Injector (Semaglutide) ..... Once a week as directed [facility] Card[facility]:Cath 2017 I MPRESSION: 1 . Mild pulmonary hypertension. 2 . Severe LV dysfunction. 3 . Moderate nonobstructive CAD. 4 . No significant renal artery stenosis. This visit has been a part of the consistent, comprehensive, and ongoing management of the chronic medical condition(s) listed above for the patient. [facility] Card[facility]:This visi t has been a part [...] (Semaglutide) ..... Once a week as directed [facility] wo und check : l ast echo EF 60% [facility] Electrophysiology wo und check : C lincally well compensated and is without shortness of breath. Continues on Entresto 24-26 mg dose. Last EF was 60-65%. [facility] Electrophysiology wo und check : P rior BP: 112/80 (12/12/2023) Labs Reviewed: C reat: 0.91 (03/10/2021) C hol: 211 (11/26/2018) HDL: 60 (11/26/2018) LDL: 116 (11/26/2018) T (11/26/2018) Her updated medication list for this problem includes: Sotalol 80 Mg Tablet (Sotalol) ..... Take 0.5 tablet by mouth twice a day [facility] Electrophysiology: H er updated medication list for this problem includes: Ozempic 0.25 Mg Or 0.5 Mg(2 Mg/1.5 Ml) Pen Injector (Semaglutide) ..... Once a week as directed [facility] Electrophysiology:Pt denies any CP or SOB. [facility] Electrophysiology: B P today: 112/80 P rior BP: 118/72 (09/05/2023) Labs Reviewed: C reat: 0.91 (03/10/2021) C hol: 211 (11/26/2018) HDL: 60 (11/26/2018) LDL: 116 (11/26/2018) T (11/26/2018) Her updated medication list for this problem includes: Sotalol 80 Mg Tablet (Sotalol) ..... 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 No recurrence. Mk Alejandra MD Cardiology follow up UQ INSTRUMENT WORKER :A1C 5.5 H er updated medication list [...] Mk Alejandra MD Cardiology follow up UQ INSTRUMENT WORKER :Entresto decreased last month. BP stable, pt feels much better Her updated medication list for this problem includes: Aspir-81 81 Mg Oral Tablet Delayed Release (Aspirin) ..... Take one tablet daily Sotalol 80mg Tablets (Sotalol hcl) ..... Take one half tablet per day Tania Gomez NP Cardiology follow up UQ INSTRUMENT WORKER :Device ok. R V 94%, LV94% N o AF/AT/VT. Onepisode of SVT 8 seconds Tania Gomez INSTRUMENT WORKER Cardiology follow up UQ INSTRUMENT WORKER : E pisode in September 2017 leading to shock by defibrillator. No recurrence. Tania Marin Patricia DE LEON Cardiology follow up UQ INSTRUMENT WORKER :K 4. 6 . Cr. 0.91 Tania Gomez INSTRUMENT WORKER Cardiology follow up UQ INSTRUMENT WORKER :A1C 5.5 H er updated medication list [...] Cardiology:Repeat gaston best was taken off of [facility] in the hospital Juno Foley MD Cardiology:The [...] twice daily Juno Foley MD Cardiology:Continues on [facility] Juno Foley MD Cardiology:Increased Entresto to 49-51mg [...] Foley MD Cardiology:Advised t o remain on [facility] at this time and not to restrict [...] revision. Most recent device check: 05/05/2020 AT/AF [place]: 0% % Pacing: RV Pacing- 98% RA Pacing- 0% LV P acing- 98% Juno Foley MD Cardiology:Will swit ch from Lisinopril to Entresto. Will check a BMP in one month. Juno Foley MD Electrophysiology:no rmal device function w ell healing scar [facility] Cardiology follow up :normal device fucntion w ell healing scar [facility] Cardiology:normal de vice function w ell healing scar [facility] Electrophysiology:wi ll need lead replacement in 3 months after she had fully healed [facility] Electrophysiology: H er updated medication list for this problem includes: Lisinopril 5 Mg Oral Tablet (Lisinopril) ..... One tab. daily Aspir-81 81 Mg Oral Tablet Delayed Release (Aspirin) ..... Take one tablet daily Sotalol 80mg Tablets (Sotalol hcl) ..... Take 1 tablet by mouth twice daily [facility] Electrophysiology: H er updated [...] lead replacement. Pt agrees with this plan [facility] Electrophysiology:Di scussed need for new LV lead replacement [facility] Electrophysiology: B P today: 126/88 [...] tab. twice daily Orders: C omplete Echo (CPT-76441) C omplete Echo (CPT-82937) X -Ray, Chest - Routine (CPT-28621) X -Ray, Chest - Routine (CPT-04603) Mk Alejandra MD Electrophysiology: H er updated medication list for this problem includes: Lisinopril 5 Mg Oral Tablet (Lisinopril) ..... One tab. daily Aspir-81 81 Mg Oral Tablet Delayed Release (Aspirin) ..... Take one tablet daily Sotalol Hcl 80 Mg Oral Tablet (Sotalol hcl) ..... One tab. twice daily Orders: E KG (CPT-16485) C omplete Echo (CPT-25247) X -Ray, Chest - Routine (CPT-41335) Mk Alejandra MD Cardiology:PAtient v milanaalizes that [...] chedule Followup (*) 9 9214 MOD Complex (CPT-46050) V enous Doppler Bilateral LE (CPT-02008) Mk Alejandra MD Electrophysiology F ollow up : W ill check venous doppler BLE for DVT. W ill check CMP and d-dimer. S chedule CT chest with IV contrast IF d-dimer comes back positive. Hx of SOB and leg edema. Orders: C OMPREHENSIVE METABOLIC PANEL, W/EGFR (85623) D -DIMER, QUANTITATIVE (8659) L IPID PANEL (3860) V enous Doppler Bilateral LE (CPT-37189) S chedule Followup (*) 9 9214 MOD Complex (CPT-42739) Her updated medication list for this problem [...] PVCs/hr. Orders: C OMPREHENSIVE METABOLIC PANEL, W/EGFR (57120) D-DIMER, QUANTITATIVE (8659) L IPID PANEL (1920) S chedule Followup (*) 9 14 MOD Complex (CPT-69260) Her updated medication list for this problem includes: Lisinopril 2.5 Mg Oral Tablet (Lisinopril) ..... One tab. at night Aspir-81 81 Mg Oral Tablet Delayed Release (Aspirin) ..... Take one tablet daily Sotalol Hcl 80 Mg Oral Tablet (Sotalol hcl) ..... One tab. twice daily Mk Alejandra MD Electrophysiology Ho spital Follow up : O rders: U RINALYSIS, COMPLETE W/REFLEX TO CULTURE (0126) Her updated medication list for this problem [...] One tab. twice daily Orders: E KG (CPT-36972) 9 9214 MOD Complex (CPT-27587) C omplete Echo (CPT-72476) Mk Alejandra MD Electrophysiology Ho spital Follow up : O rders: 9 9214 MOD Complex (CPT-00182) C omplete Echo (CPT-30682) Her updated medication list for this problem [...] 04/21/17. D evice check 06/10/18 shows 89% HYDRAULIC LIFT OPERATOR, 78% BiVP. No SVT. Her updated [...] Orders: A BLATION w/ Anesthesia (*) 9 9290 LTD. Complex (CPT-60730) Schedule Followup (*) Her updated medication list [...] 05/15/18 shows EF 35%. Orders: E KG (CPT-98632) 9 9217 MOD Complex (CPT-66353) S chedule Followup (*) Her updated medication [...] Fo llow up :Orders: 9213 MOD Complex (CPT-44621) S chedule Followup (*) Her updated medication [...] 04/21/17. D evice check 06/10/18 shows 89% HYDRAULIC LIFT OPERATOR, 78% BiVP. No SVT. Her updated [...] anesthesia in the next few months at [facility]. P atient to take 5mg Coumadin daily for 7 days prior to procedure. Orders: 9213 MOD Complex (CPT-15010) S chedule Followup (*) A BLATION w/ [...] 04/21/17. D evice check 06/10/18 shows 89% HYDRAULIC LIFT OPERATOR, 78% BiVP. No SVT. F ollowup [...] tab. twice daily Juan Davidmichi Lane Electrophysiology [facility] Ariana Electrophysiology Ho spital Follow up :Normal [...] INR (8847) C OMPREHENSIVE METABOLIC PANEL W/EGFR (21378) U RINALYSIS, COMPLETE W/REFLEX TO CULTURE (3020) [...] Follow up : O rders: S NOMED-CT: [id number] Current Medications Documented ([facility]-[id number]) E KG (CPT-68905) G lobal No Charge (CPT-78624) F VC - 05220 (21887) F RC - 47133 (21537) D LCO - 00043 (52828) Her updated medication list for this problem [...] up : O rders: D O - 58945 (60945) [facility]) Her updated medication list for this problem includes: Spironolactone 25 Mg Oral Tablet (Spironolactone) ..... Half tablet daily Carvedilol 6.25 Mg Oral Tablet (Carvedilol) ..... One tab. twice daily Enalapril Maleate 20 Mg Oral Tablet (Enalapril maleate) ..... One tab. daily Saulius Kalvaitis MD Electrophysiology Ho spital Follow up :improved on amiodarone O rders: Harvey saleh No Charge (CPT-71237) S vesta Followup (*) Her updated medication list for this problem includes: Amiodarone Hcl 200 Mg Oral Tablet (Amiodarone hcl) ..... Take one pill a day Carvedilol 6.25 Mg Oral Tablet (Carvedilol) ..... One tab. twice daily Enalapril Maleate 20 Mg Oral Tablet (Enalapril maleate) ..... One tab. daily Mk Alejandra MD Electrophysiology - NP:s/p biv icd Vidal Hu INSTRUMENT WORKER Cardiology:Having surgery to rem ove part of colon. Juno Foley MD Cardiology Juno Foley MD Cardiology: B P today: 112/68 P rior BP: 112/70 (05/28/2017) Labs Reviewed: C reat: 1.0 (04/09/2017) Juno Foley MD Electrophysiology Follow up - Lonnie Tompkins EP Mk jc MD Cardiology:Will chec k echo in two weeks and make decision regarding ICD. Ntahan Ellsworth Cardiology:Not induced during EP study Nathan [...] (Enalapril maleate) ..... One tab. daily [facility] EP [facility] 01[facility]23/[facility] 01/23/17:Her updated medication list [...] her cath. Osmin [facility] EP faxed 01/23/17:Her updated medication list for this problem includes: Carvedilol 6.25 Mg Tabs (Carvedilol) ..... One tab. twice daily Enalapril Maleate 20 Mg Tabs (Enalapril maleate) ..... One tab. daily Magnesium Oxide 400 Mg Oral Tabs (Magnesium oxide) .... One tablet twice daily <--- Starting today Osmin [facility] Cardiology:[place] 540[address] ectopics 6.8% of total beats. Will schedule [...] Duplex Bilat eral Complete Echo DLCO - 52736 FRC - 67248 FVC - 39906 MAGNESIUM COMPREHENSIVE METABO LIC PANEL, W/EGFR THYROID PANEL WITH T SH, 3RD GENERATION Complete Echo DLCO - 25176 FRC - 10818 FVC - 86225 Complete Echo URINALYSIS, COMPLETE W/REFLEX TO CULTURE [...] Juno Foley MD INTERROGATION REMOTE </90 D CHECK EXAMINER REVIEW completed AICD Interrogation, Remote (Prof) Juno [...] Juno Foley MD INTERROGATION REMOTE </90 D CHECK EXAMINER REVIEW completed AICD Interrogation, Remote (Prof) Juno [...] jc MD completed FVC / MVV - 88940 kM davila MD completed FRC - 14607 Mk jc MD completed SpO2 w/o 6min walk/titration Mk Alejandra MD completed DLCO - 30274 kM jc MD completed EKG Mk jc MD [...] REMOTE </30 D TECH REVIEW completed SNOMED-CT: 71087963 Physical Exam, Performed: Pulse Exam of Foot Juno Foley MD completed SNOMED-CT: 065647302649358 Current Medications Documented Juno Foley MD completed EKG Mk jc MD completed EKG Juno Foley MD completed EKG Mk jc MD completed SNOMED-CT: 091786793401487 Current Medications Documented Mk Alejandra MD completed EKG Mk jc MD completed SNOMED-CT: 731816486653315 Current Medications Documented Mk Alejandra MD completed FVC / MVV - 91427 Mk davila MD completed FRC - 12979 Mk jc MD completed SpO2 - 45752 Mk jc MD completed DLCO - 47697 Mk jc MD completed ICM Interrogation, Remote (Prof) Juno Foley MD INTERROGATION EVAL REMOTE </30 D CV MNTR SYS completed ICM Interrogation, Remote (Tech) Juno Foley MD INTERROGATION EVAL REMOTE </30 D TECH REVIEW completed Schedule Followup Mk davila MD in 3 weeks completed EKG Mk jc MD completed SNOMED-CT: 334583207502308 Current Medications Documented Mk Alejandra MD completed ICM Interrogation, Remote (Prof) Juno Foley MD INTERROGATION EVAL REMOTE </30 D CV MNTR SYS completed ICM Interrogation, Remote (Tech) Juno Foley MD INTERROGATION EVAL REMOTE </30 D TECH REVIEW completed Schedule ICD Check Edin Jarrod ck DO completed Schedule Followup Edin Glascoc k DO 6 months completed EKG Edin Lorenzanacock DO completed SNOMED-CT: 735538317382740 Current Medications Documented Edin Lorenzanacock DO completed ICM Interrogation, Remote (Prof) Juno Foley MD INTERROGATION EVAL REMOTE </30 D CV MNTR SYS completed ICM Interrogation, Remote (Tech) Juno Foley MD INTERROGATION EVAL REMOTE </30 D TECH REVIEW completed SNOMED-CT: 01790843 Physical Exam, Performed: Pulse Exam of Foot Juno Foley MD completed SNOMED-CT: 097148383734534 Current Medications Documented Juno Foley MD completed EKG Mk jc MD completed SNOMED-CT: 310065433233380 Current Medications Documented Mk Alejandra MD completed EKG Mk jc MD completed SNOMED-CT: 751797865544371 Current Medications Documented Mk Alejandra MD completed Schedule Followup Mk davila MD 3 months completed SNOMED-CT: 341407770445678 Current Medications Documented Mk Alejandra MD completed EKG Mk jc MD completed Loop Recorder Interrogation, Remote Juno Foley MD INTERROGATION EVALUATION REMOTE </30 D ILR SYS completed ICM Interrogation, Remote (Tech) Juno Foley MD INTERROGATION EVAL REMOTE </30 D TECH REVIEW completed EKG Mk jc MD completed SNOMED-CT: 023834014409418 Current Medications Documented Mk Alejandra MD completed Protime Juno Foley MD completed Protime Juno Foley MD completed SNOMED-CT: 33247410 Physical Exam, Performed: Pulse Exam of Foot Juno Foley MD completed SNOMED-CT: 194198044772601 Current Medications Documented Juno Foley MD completed EKG Mk jc MD completed SNOMED-CT: 094885870644073 Current Medications Documented Mk Alejandra MD completed SNOMED-CT: 26667028 Physical Exam, Performed: Pulse Exam of Foot Juno Foley MD completed SNOMED-CT: 449219060869033 Current Medications Documented Juno Foley MD completed Stress EKG Emmy Pham MD completed Regadenoson, 4 units Juno Foley MD completed Cardiolite, 2 units Juno Foley MD completed SPECT Images Emmy Pham MD complet ed EKG Juno Foley MD completed SNOMED-CT: 861068882203176 Current Medications Documented Juno Foley MD completed
--- OUTSIDE RECORDS SUMMARY | 2025-03-23 10:30 | XMS_ITS | Clinical Summary ---
Author Organization [facility] Address [address] [place] [address] Care Team Providers Care Tanning Wheel Filler Name Role Phone Duglas Collado MD Primary Care Provider Source Comments [facility],non-[facility] Affiliates and Associated Physician Practices is amultiple site organization consisting of ambulatory clinics and hospital sitesin [place], [place], [place] and [place]. This disclosure is being madepursuant to the Care Everywhere program and may not contain all information available regarding this patient. Last updated 18.[facility] Allergies Active Allergy Reactions Criticality Noted Date Comments Codeine Nausea and/or Vomiting,Vomiting Medium 05/27 Meperidine Nausea and/or Vomiting,Vomiting Medium 05/27 Medications * Be aware that medications may not be up to date on this document. Alwaysverify current medications with the patient. loratadine (CLARITIN) 10 MG tablet Take 10 mg by mouth once daily 9 Active vitamin D, ergocalciferol, (DRISDOL) 1.25 MG (09445 UT) capsule Take 50,000 Units by mouth [...] on file Legal Sex Female 7:00 PM METER READER Gender Identity Not on file Sexual Orientation Not on file Last Filed Vital Signs Vital Sign Reading Time Taken Comments Blood Pressure 110/68 10/28/2019 2:58 PM METER READER Pulse 77 10/28/2019 2:58 PM METER READER Temperature 36.7 C (98.1 F) 10/28/2019 2:58 PM METER READER Respiratory Rate 18 10/28/2019 2:58 PM METER READER Oxygen Saturation 96% 10/28/2019 2:58 PM METER READER Inhaled Oxygen Concentration - - Weight 87.2 kg (192 lb 4.8 oz) 10/28/2019 2:58 P M METER READER Height 165.1 cm (5' 5) 10/28/2019 2:58 PM METER READER Body Mass Index 32 10/28/2019 2:58 PM METER READER Plan of Treatment Health Maintenance Due Date [...] ID:Not on file (Home) Address: [address] [place] [address] Payer ID:Not on file Group ID:Not on file Type:Self Pay Address: [place], [place] * Guarantor: KATHERYN PHILLIPS Account Type Relation to Patient Date of Phone Billing Address Personal/Family [address] [place] [address] MEDICARE [employer] Member Subscriber Plan / Payer (Ef fective for All Dates) Name:Katheryn Phillips Member ID:Not on file Relation to Subscriber:Self Name:Katheryn Phillips Subscriber ID:Not on file Payer ID:[id number] (NAIC) Group ID:[id number] Type:Commercial Address: [address] * Guarantor: KATHERYN PHILLIPS Account Type Relation to Patient Date of Phone Billing Address Personal/Family [address] [place] [address] MEDICARE A[employer] Member Subscriber Plan / Payer (Ef fective for All Dates) Name:Katheryn Phillips Member ID:Not on file Relation to Subscriber:Self Name:Katheryn Phillips Subscriber ID:Not on file Payer ID:[id number] (NAIC) Group ID:[id number] Type:Commercial Address: [address] * Guarantor: KATHERYN PHILLIPS Account Type Relation to Patient Date of Phone Billing Address Personal/Family [address] [place] [address] MEDICARE [employer]ET[employer] Care Teams Tanning Wheel Filler Relationship Specialty Start Date End Date Duglas Collado MD [address] [address] PCP - General Internal Medicine 07/16/19
== END 2025-03-23 10:21 | disposition home or self-care (01) ==
PROVIDERS: PCP Internal Medicine; Visit Provider Surgery
DX: K45.8 Other specified abdominal hernia without obstruction or gangrene (principal); I31.39 Other pericardial effusion (noninflammatory)
CPT/HCPCS: 74150

== ENCOUNTER 2025-04-05 12:54 | Outpatient (CLI) | payer MEDICARE, SELFPAY ==
--- NOTE | ~2025-04-05 | US_ITS ---
US breast RT limited 04/05/2025 13:21 Indication: Follow-up right breast mass Procedure: High-resolution Limited ultrasound of the right breast Comparison: 01/12/2025 Findings: At 12:00, 8 cm from the nipple there is an oval hypoechoic mass with slightly irregular mar gins, oval configuration and posterior acoustic enhancement measuring 6 x 4 x 3 mm compared with 9 x 7 x 3 mm on prior examination. No internal vascularity. Morphology is changed compared with prior exa mination. Impression: 1: Slightly irregular shaped hypoechoic 6 mm right breast mass located at 12:00, 8 cm from the nipple . The mass is altered morphology compared with prior examination, although slightly smaller. Ultrasou nd-guided biopsy recommended. BI-RADS CATEGORY 4-SUSPICIOUS ABNORMALITY Reviewed, dictated and finalized at location B. Impression: 1: Slightly irregular shaped hypoechoic 6 mm right breast mass located at 12:00 , 8 cm from the nipple. The mass is altered morphology compared with prior exam ination, although slightly smaller. Ultrasound-guided biopsy recommended. BI-RADS CATEGORY 4-SUSPICIOUS ABNORMALITY
--- OUTSIDE RECORDS SUMMARY | 2025-04-05 13:44 | XMS_ITS | Clinical Summary ---
Author Organization [facility] Address [address] [facility] [address] [place] [address] Phone Care Team Providers Care Rn Burn Name Role Phone Duglas Collado MD Primary [...] Comments Blood Pressure 104/71 2024 2:17 PM METAL HARDENER Pulse 91 2024 2:17 PM METAL HARDENER Temperature 36.9 C (98.4 F) 2024 2:17 PM METAL HARDENER Respiratory Rate 15 2024 2:17 PM METAL HARDENER Oxygen Saturation 95% 2024 2:17 PM METAL HARDENER Inhaled Oxygen Concentration - - Weight 69.3 kg (152 lb 12.8 oz) 2024 2:17 PM METAL HARDENER Height 152.4 cm (5') 04/25/2022 11:38 AM CDT Body Mass Index 29.84 04/25/2022 11:38 AM CDT Plan of Treatment Upcoming Encounters Date Type Department Care Team (Late st Contact Info) Description 04/12/2025 11:00 AM CDT Office Visit [facility] Oncology and Hematology - [place] [address] [facility] [address] [place] [address] Brandon Willis MD [address] [facility] [address] [place] [address] Health Maintenance Due Date Last [...] , 09/19/2019 Medical Devices Implanted Type Area Manager Applied Device Identifier Shelf Expiration Date Model / Serial / Lot Lap Band,Bilat Knee Replacement Implanted:(Quantit y not on file) Explanted:(Quantit y not on file) Insurance MEDICARE PART A AND B [employer] MEDICARE SUPP AESSI MEDICARE PART A AND B [place] [address] Advance Directives For more information, please contact: [phone] * Full Code (Latest Code Status on File) Date Activated Date Inactivated Comments 07/05/2014 8:17 AM 07/05/2014 11:32 AM * Full Code Date Activated Date Inactivated Comments 07/05/2014 6:54 AM 07/05/2014 8:17 AM Care Teams Rn Burn Relationship Specialty Start Date End Date Duglas Collado MD PCP - General Internal Medicine 03/27/22
--- OUTSIDE RECORDS SUMMARY | 2025-04-05 13:45 | XMS_ITS | Data Portability ---
Author Organization [place] - S [employer], Main Office Address [address] [place] [address] Care Team Providers Care Entertainer Or Variety Artist Name Role Phone BRODY COLLADO Primary Care [...] This note is dictated and transcribed by [employer]. Marketing Services Rep variances may occur. Despite proofreading, typographical errors may occur. [email or web address] Not available 06/03/2023 10:31:35 Plan of Treatment Reminders Order Date Submit Date Provider Last Modified By Organization Details Last Modified Time Details Appointments None recorded. Lab lipid panel, serum 2022 023 [email or web address] [facility] (Lab), [address] [place], [address], 4 13:54:50 CBC w/ auto diff [address] (Lab), [address] [place], [address], 4 13:54:50 TSH, serum or plasma [address] (Lab), [address] [place], [address], 4 13:54:50 T4, free, serum [address] (Lab), [address] [place], [address], 4 13:54:50 CMP, serum or plasma [address] (Lab), [address] [place], [address], 4 13:54:51 vitamin D, 25-hydroxy, total, serum [address] (Lab), [address] [place], [address], 4 17:14:48 glycohemogl obin, total, blood [address] (Lab), [address] [place], [address], 4 13:54:49 microalbumi n, urine [address] (Lab), [address] [place], [address], 4 13:54:50 lipid panel, serum 2022 023 [facility] (Lab), [address] [place], [address], 3 10:23:37 CBC w/ auto diff 2022 023 [facility] (Lab), [address] [place], [address], 3 10:29:24 TSH, serum or plasma 2022 023 [facility] (Lab), [address] [place], [address], 3 11:00:11 T4, free, serum 2022 023 [facility] (Lab), [address] [place], [address], 3 10:32:56 CMP, serum or plasma 2022 023 [facility] (Lab), [address] [place], [address], 3 10:23:48 glycohemogl obin, total, blood 2022 023 [facility] (Lab), [address] [place], [address], 3 12:21:03 microalbumi n, urine 2022 023 [facility] (Lab), [address] [place], [address], 3 10:27:[address] referral 2022 023 Not available 3 12:14:23 nephrologis t referral 2022 023 [email or web address] Deb Benavides MD, [address], [address], [place], [address], 4 17:05:18 hematologis t referral 2022 023 [email or web address] Willis MD, [address], [place], [address], 3 12:14:51 cardiologis t referral 2022 023 [email or web address], [address], [address], [place], [address], 3 12:16:17 hand surgeon referral 2022 023 [email or web address] Calderon MD, [address] [place], [address], 3 12:15:45 neurologist referral 2022 023 rio Hernandez MD, 4 [facility] , [facility] [address], [place], [address], 3 12:15:26 project control officer referral 2022 023 [email or web address] Massimo Porter DPDouglas, [address], [address], [place], [address], 4 17:05:19 general surgeon referral 2022 023 [email or web address] Waddell MD, [address], [address], [place], [address], 3 12:16:47 neurologist referral 2022 023 rio Hernandez MD, 4 [facility] , [address], [place], [address], 3 11:01:11 nephrologis t referral 2022 023 rio Benavides MD, [address], [address], [place], [address], 3 17:44:[address] referral 2022 023 [email or web address] Not available 3 18:42:45 hematologis t referral 2022 023 [email or web address] Brandon Willis MD, [address], [place], [address], 3 11:00:29 project control officer referral 2022 023 [email or web address] Massimo Porter DPM, [address] [facility], [address], [place], [address], 3 17:43:46 hand surgeon referral 2022 023 [email or web address] Calderon MD, [address] [place], [address], 3 10:03:10 Procedures None recorded. Surgeries None recorded. Imaging MAMMO, screening, digital, bilateral 2022 023 [email or web address] [facility] ([facility]), [address] [place], [address], 4 17:05:28 DEXA, axial skeleton 2022 023 [email or web address] [facility] (Radiology), [address] [place], [address], 4 17:14:35 MAMMO, screening, digital, bilateral [email or web address] [place], [address], 3 12:09:29 Medication Orders None recorded. Patient TargetsNo targets recorded. Patient Instructions Encounter Date Encounter Id Patient Instructions Last Modified By Organization Details Last Modified Time 01/16/2023 [id number] diabetic eye exam* Not availa ble 07/24/2023 10:21:58 04/24/2023 [id number] dementia rating scale-2* miguel 2 Not available [...] care directive I recommend consulting with an Body Press Operator, family member, or friend to assist you. 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 Referring Physician: Jessica Peña, Encounter Date: 01/16/2023 Contract Officer Referral for Type 2 diabetes mellitus without complication Referring Physician: Jessica Peña, Encounter Date: 01/16/2023 Referring Physician: Jessica Peña, Encounter Date: 01/16/2023 Neurologist Referral for Tra nsient cerebral ischemia Referring Physician: Jessica Peña, Encounter Date: 01/16/2023 Hand Surgeon Referral for Pa in of left wrist Referring Physician: Jessica Peña, Encounter Date: 01/16/2023 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 Installer Referral for O bstructive sleep apnea syndrome Referring Physician: Jessica Peña, Encounter Date: 04/24/2023 Clinical Documentation Spec 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 Referring Physician: Jessica Peña, Encounter Date: 04/24/2023 Contract Officer Referral for Type 2 diabetes mellitus without complication Referring Physician: Jessica Peña, Encounter Date: 04/24/2023 Referring Physician: Jessica Peña, Encounter Date: 04/24/2023 Neurologist Referral for Tra nsient cerebral ischemia Referring Physician: Jessica Peña Medicine, Encounter Date: 04/24/2023 Hand Surgeon Referral for Pa in of left wrist Referring Physician: Brody Collado Internal Medicine, Encounter Date: 04/24/2023 Automotive Parts Coordinator Referral for Ne ar syncope Referring Physician: Brody Collado Internal Medicine, Encounter Date: 04/24/2023 General Surgeon Referral for Skin lesion Referring Physician: Brody Collado Internal Medicine, Encounter Date: 04/24/2023 Results Created Date Observation Date Name Description Value Unit Range Abnormal Flag Note LastModifiedBy Organization Detail LastModifiedTime 08/27/2008/27/2022 FOLAT E, SERUM /PLAS MA folate 5.98 NG/mL 2.76-2 0.0 Not Available [facility] (Lab) [address] [place], [address], 08/27/2022 18:44:29 08/27/20 22 08/27/2022 VITAM IN B12 (MADDY DOMENICA ) vb12 476 pg/mL 239-93 1 Not Available [facility] (Lab) [address] [place], [address], 08/27/2022 18:44:26 08/27/20 22 08/27/2022 MICRO ALBUM IN RANDO M URINE microalbumin , urine <6.0 mg/L 0.0-16 .6 Not Available [facility] (Lab) [address] [place], [address], 08/27/2022 18:09:51 08/27/20 22 08/27/2022 HEMOG LOBIN A1C HA1C 5.5 % 4.0-6. 0 Diabe harman Scree roma Crite adi: <5.7% Consi stent with absen ce of diabe harman 5.7-6 .4% Consi stent with incre ased risk for diabe harman (pred iabet es) >OR=6 .5% Consi stent with diabe harman REFER ENCE: Diabe harman Care 2016, 39(Arnold ppl.1 ):s13 -s22 Not Available [facility] (Lab) [address] [place], [address], 08/27/2022 15:07:49 08/27/20 22 08/27/2022 TSH thyroid-stim ulating hormone 1.980 uIU/m L 0.465- 4.680 Not Available [facility] (Lab) [address] [place], [address], 08/27/2022 13:44:58 08/27/20 22 08/27/2022 T4 FREE free T4 1.19 NG/dL 0.78-2 .19 Not Available [facility] (Lab) [address] [place], [address], 08/27/2022 13:31:42 08/27/20 22 08/27/2022 COMPR EHENS JONATHAN METAB OLIC PANEL sodium 138 mmol/ L 137-14 5 Not Available [facility] (Lab) [address] [place], [address], 08/27/2022 13:22:36 08/27/20 22 08/27/2022 COMPR EHENS JONATHAN METAB OLIC PANEL potassium 4.4 mmol/ L 3.5-5. 1 Not Available [facility] (Lab) [address] [place], [address], 08/27/2022 13:22:36 08/27/20 22 08/27/2022 COMPR EHENS JONATHAN METAB OLIC PANEL chloride 104 mmol/ L 98-107 Not Available [facility] (Lab) [address] [place], [address], 08/27/2022 13:22:36 08/27/20 22 08/27/2022 COMPR EHENS JONATHAN METAB OLIC PANEL carbon dioxide 31 mmol/ L 22-30 high Not Available [facility] (Lab) [address] [place], [address], 08/27/2022 13:22:36 08/27/20 22 08/27/2022 COMPR EHENS JONATHAN METAB OLIC PANEL anion gap 7.4 mmol/ L 14-22 low Not Available [facility] (Lab) [address] [facility] [place], [address], 08/27/2022 13:22:36 08/27/20 22 08/27/2022 COMPR EHENS JONATHAN METAB OLIC PANEL glucose 93 mg/dL 70-99 Not Available [facility] (Lab) [address] [place], [address], 08/27/2022 13:22:36 08/27/20 22 08/27/2022 COMPR EHENS JONATHAN METAB OLIC PANEL BUN 17 mg/dL 8-19 Not Available [facility] (Lab) [address] [place], [address], 08/27/2022 13:22:36 08/27/20 22 08/27/2022 COMPR EHENS JONATHAN METAB OLIC PANEL creatinine 0.97 mg/dL 0.66-1 .25 Not Available [facility] (Lab) [address] [place], [address], 08/27/2022 13:22:36 08/27/20 22 08/27/2022 COMPR EHENS JONATHAN METAB OLIC PANEL GFR 57 Refer ence Range : [place] ge GFR Healt hy Adult : >60 [...] calcu lator is avail able on the [facility] websi te: https ://ww w.kid ayla.o rg/pr ofess ional s/kdo qi/gf r_cal culat or Not Available [facility] (Lab) [address] [place], [address], 08/27/2022 13:22:36 08/27/20 22 08/27/2022 COMPR EHENS JONATHAN METAB OLIC PANEL alkaline phosphatase 63 U/L 38-126 Not Available [facility] (Lab) [address] [place], [address], 08/27/2022 13:22:36 08/27/20 22 08/27/2022 COMPR EHENS JONATHAN METAB OLIC PANEL alanine aminotransfe rase 5 U/L 0-35 Not Available [facility] (Lab) [address] [place], [address], 08/27/2022 13:22:36 08/27/20 22 08/27/2022 COMPR EHENS JONATHAN METAB OLIC PANEL aspartate aminotransfe rase 22 U/L 15-37 Not Available [facility] (Lab) [address] [place], [address], 08/27/2022 13:22:36 08/27/20 22 08/27/2022 COMPR EHENS JONATHAN METAB OLIC PANEL bilirubin, total 0.60 mg/dL 0.20-1 .30 Not Available [facility] (Lab) [address] [place], [address], 08/27/2022 13:22:36 08/27/20 22 08/27/2022 COMPR EHENS JONATHAN METAB OLIC PANEL calcium 9.8 mg/dL 8.4-10 .2 Not Available [facility] (Lab) [address] [place], [address], 08/27/2022 13:22:36 08/27/20 22 08/27/2022 COMPR EHENS JONATHAN METAB OLIC PANEL total protein 6.4 g/dL 6.3-8. 2 Not Available [facility] (Lab) [address] [place], [address], 08/27/2022 13:22:36 08/27/20 22 08/27/2022 COMPR EHENS JONATHAN METAB OLIC PANEL albumin 4.1 g/dL 3.0-4. 4 Not Available [facility] (Lab) [address] [place], [address], 08/27/2022 13:22:36 08/27/20 22 08/27/2022 COMPR EHENS JONATHAN METAB OLIC PANEL globulin 2.3 g/dL 2.6-4. 2 low Not Available [facility] (Lab) [address] [place], [address], 08/27/2022 13:22:36 08/27/20 22 08/27/2022 COMPR EHENS JONATHAN METAB OLIC PANEL A/G ratio 1.8 ratio 1.0-2. 0 Not Available [facility] (Lab) [address] [place], [address], 08/27/2022 13:22:36 08/27/20 22 08/27/2022 LIPID PANEL cholesterol 271 mg/dL 140-19 9 high NIH OSWALDO NSUS RECOM MENDA TION FOR PAWAN STERO L: ADULT CHILD LOW RISK: <200 <170 BORDE RLINE : <200- 239 ----- HIGH RISK: >240 >200 Not Available [facility] (Lab) [address] [place], [address], 08/27/2022 13:21:09 08/27/20 22 08/27/2022 LIPID PANEL triglyceride s 237 mg/dL 0-150 high NIH OSWALDO NSUS REPOR T RECOM MENDA TION FOR TRIGL YCERI ZORAIDA: ADULT CHILD LOW RISK: <150 ----- BODER LINE: 150-1 99 ----- HIGH RISK: >200 ----- Not Available [facility] (Lab) [address] [place], [address], 08/27/2022 13:21:09 08/27/20 22 08/27/2022 LIPID PANEL HDL cholesterol 55 mg/dL 40- Not Available [facility] (Lab) [address] [place], [address], 08/27/2022 13:21:09 08/27/20 22 08/27/2022 LIPID PANEL [...] WILL NOT BE REPOR RUI. Not Available [facility] (Lab) [address] [place], [address], 08/27/2022 13:21:09 08/27/20 22 08/27/2022 CBC/C OMPLE TE BLD COUNT W/DIF F white blood cells 7.2 x10'3 /uL 4.2-10 .8 Not Available [facility] (Lab) [address] [place], [address], 08/27/2022 13:09:09 08/27/20 22 08/27/2022 CBC/C OMPLE TE BLD COUNT W/DIF F red blood cells 4.43 x10'6 /uL 3.80-5 .20 Not Available [facility] (Lab) [address] [place], [address], 08/27/2022 13:09:09 08/27/20 22 08/27/2022 CBC/C OMPLE TE BLD COUNT W/DIF F hemoglobin 13.8 g/dL 12.0-1 5.6 Not Available [facility] (Lab) [address] [place], [address], 08/27/2022 13:09:09 08/27/20 22 08/27/2022 CBC/C OMPLE TE BLD COUNT W/DIF F hematocrit 42.9 % 35.7-4 5.7 Not Available [facility] (Lab) [address] [place], [address], 08/27/2022 13:09:09 08/27/20 22 08/27/2022 CBC/C OMPLE TE BLD COUNT W/DIF F mean red cell volume 96.8 fL 82.0-9 9.0 Not Available [facility] (Lab) [address] [place], [address], 08/27/2022 13:09:09 08/27/20 22 08/27/2022 CBC/C OMPLE TE BLD COUNT W/DIF F mean red cell hemoglobin 31.2 pg 27.0-3 3.0 Not Available [facility] (Lab) [address] [place], [address], 08/27/2022 13:09:09 08/27/20 22 08/27/2022 CBC/C OMPLE TE BLD COUNT W/DIF F mean RBC HGB concentratio n 32.2 g/dL 31.0-3 6.0 Not Available [facility] (Lab) [address] [place], [address], 08/27/2022 13:09:09 08/27/20 22 08/27/2022 CBC/C OMPLE TE BLD COUNT W/DIF F red cell distribution width 14.7 % 11.8-1 5.5 Not Available [facility] (Lab) [address] [place], [address], 08/27/2022 13:09:09 08/27/20 22 08/27/2022 CBC/C OMPLE TE BLD COUNT W/DIF F platelets 151 x10'3 /uL 150-40 0 Not Available [facility] (Lab) [address] [place], [address], 08/27/2022 13:09:09 08/27/20 22 08/27/2022 CBC/C OMPLE TE BLD COUNT W/DIF F mean platelet volume 13.0 fL 9.0-12 .4 high Not Available [facility] (Lab) [address] [place], [address], 08/27/2022 13:09:09 08/27/20 22 08/27/2022 CBC/C OMPLE TE BLD COUNT W/DIF F neutrophils 56.4 % 39.0-7 2.0 Not Available [facility] (Lab) [address] [place], [address], 08/27/2022 13:09:09 08/27/20 22 08/27/2022 CBC/C OMPLE TE BLD COUNT W/DIF F lymphocytes 24.8 % 16.0-4 7.0 Not Available [facility] (Lab) [address] [place], [address], 08/27/2022 13:09:09 08/27/20 22 08/27/2022 CBC/C OMPLE TE BLD COUNT W/DIF F monocytes 12.6 % 5.0-12 .0 high Not Available [facility] (Lab) [address] [place], [address], 08/27/2022 13:09:09 08/27/20 22 08/27/2022 CBC/C OMPLE TE BLD COUNT W/DIF F eosinophils 4.3 % 1.0-7. 0 Not Available [facility] (Lab) [address] [place], [address], 08/27/2022 13:09:09 08/27/20 22 08/27/2022 CBC/C OMPLE TE BLD COUNT W/DIF F basophils 1.5 % 0.0-2. 0 Not Available [facility] (Lab) [address] [place], [address], 08/27/2022 13:09:09 08/27/20 22 08/27/2022 CBC/C OMPLE TE BLD COUNT W/DIF F immature granulocytes 0.4 % 0.00-0 .50 Not Available [facility] (Lab) [address] [place], [address], 08/27/2022 13:09:09 08/27/20 22 08/27/2022 CBC/C OMPLE TE BLD COUNT W/DIF F neutrophils, absolute count 4.07 x10'3 /uL 1.5-8. 0 Not Available [facility] (Lab) [address] [place], [address], 08/27/2022 13:09:09 08/27/20 22 08/27/2022 CBC/C OMPLE TE BLD COUNT W/DIF F lymphocytes, absolute count 1.79 x10'3 /uL 1.07-3 .43 Not Available [facility] (Lab) [address] [place], [address], 08/27/2022 13:09:09 08/27/20 22 08/27/2022 CBC/C OMPLE TE BLD COUNT W/DIF F monocytes, absolute count 0.91 x10'3 /uL 0.29-0 .99 Not Available [facility] (Lab) [address] [place], [address], 08/27/2022 13:09:09 08/27/20 22 08/27/2022 CBC/C OMPLE TE BLD COUNT W/DIF F eosinophils, absolute count 0.31 x10'3 /uL 0.02-0 .53 Not Available [facility] (Lab) [address] [place], [address], 08/27/2022 13:09:09 08/27/20 22 08/27/2022 CBC/C OMPLE TE BLD COUNT W/DIF F basophils, absolute count 0.11 x10'3 /uL 0.01-0 .08 high Not Available [facility] (Lab) [address] [place], [address], 08/27/2022 13:09:09 08/27/20 22 08/27/2022 CBC/C OMPLE TE BLD COUNT W/DIF F immature granulocytes ,absolute 0.03 x10'3 /uL 0.00-0 .05 Not Available [facility] (Lab) [address] [place], [address], 08/27/2022 13:09:09 08/27/20 22 08/27/2022 CBC/C OMPLE TE BLD COUNT W/DIF F nucleated red blood cells 0.0 % -0 Not Available [facility] (Lab) [address] [place], [address], 08/27/2022 13:09:09 08/27/20 22 08/27/2022 CBC/C OMPLE TE BLD COUNT W/DIF F NRBC# 0.00 x10'3 /uL Not Available [facility] (Lab) [address] [place], [address], 08/27/2022 13:09:09 01/16/20 23 01/15/2023 CBC/C OMPLE TE BLD COUNT W/DIF F white blood cells 9.4 x10'3 /uL 4.2-10 .8 Not Available [facility] (Lab) [address] [place], [address], 01/15/2023 12:06:22 01/16/20 23 01/15/2023 CBC/C OMPLE TE BLD COUNT W/DIF F red blood cells 4.46 x10'6 /uL 3.80-5 .20 Not Available [facility] (Lab) [address] [place], [address], 01/15/2023 12:06:22 01/16/20 23 01/15/2023 CBC/C OMPLE TE BLD COUNT W/DIF F hemoglobin 13.7 g/dL 12.0-1 5.6 Not Available [facility] (Lab) [address] [place], [address], 01/15/2023 12:06:22 01/16/20 23 01/15/2023 CBC/C OMPLE TE BLD COUNT W/DIF F hematocrit 43.4 % 35.7-4 5.7 Not Available [facility] (Lab) [address] [place], [address], 01/15/2023 12:06:22 01/16/20 23 01/15/2023 CBC/C OMPLE TE BLD COUNT W/DIF F mean red cell volume 97.3 fL 82.0-9 9.0 Not Available [facility] (Lab) [address] [place], [address], 01/15/2023 12:06:22 01/16/20 23 01/15/2023 CBC/C OMPLE TE BLD COUNT W/DIF F mean red cell hemoglobin 30.7 pg 27.0-3 3.0 Not Available [facility] (Lab) [address] [place], [address], 01/15/2023 12:06:22 01/16/20 23 01/15/2023 CBC/C OMPLE TE BLD COUNT W/DIF F mean RBC HGB concentratio n 31.6 g/dL 31.0-3 6.0 Not Available [facility] (Lab) [address] [place], [address], 01/15/2023 12:06:22 01/16/20 23 01/15/2023 CBC/C OMPLE TE BLD COUNT W/DIF F red cell distribution width 13.8 % 11.8-1 5.5 Not Available [facility] (Lab) [address] [place], [address], 01/15/2023 12:06:22 01/16/20 23 01/15/2023 CBC/C OMPLE TE BLD COUNT W/DIF F platelets 147 x10'3 /uL 150-40 0 low Not Available [facility] (Lab) [address] [place], [address], 01/15/2023 12:06:22 01/16/20 23 01/15/2023 CBC/C OMPLE TE BLD COUNT W/DIF F mean platelet volume 12.2 fL 9.0-12 .4 Not Available [facility] (Lab) [address] [place], [address], 01/15/2023 12:06:22 01/16/20 23 01/15/2023 CBC/C OMPLE TE BLD COUNT W/DIF F neutrophils 65.6 % 39.0-7 2.0 Not Available [facility] (Lab) [address] [place], [address], 01/15/2023 12:06:22 01/16/20 23 01/15/2023 CBC/C OMPLE TE BLD COUNT W/DIF F lymphocytes 17.1 % 16.0-4 7.0 Not Available [facility] (Lab) [address] [place], [address], 01/15/2023 12:06:22 01/16/20 23 01/15/2023 CBC/C OMPLE TE BLD COUNT W/DIF F monocytes 12.3 % 5.0-12 .0 high Not Available [facility] (Lab) [address] [place], [address], 01/15/2023 12:06:22 01/16/20 23 01/15/2023 CBC/C OMPLE TE BLD COUNT W/DIF F eosinophils 3.8 % 1.0-7. 0 Not Available [facility] (Lab) [address] [place], [address], 01/15/2023 12:06:22 01/16/20 23 01/15/2023 CBC/C OMPLE TE BLD COUNT W/DIF F basophils 0.9 % 0.0-2. 0 Not Available [facility] (Lab) [address] [place], [address], 01/15/2023 12:06:22 01/16/20 23 01/15/2023 CBC/C OMPLE TE BLD COUNT W/DIF F immature granulocytes 0.3 % 0.00-0 .50 Not Available [facility] (Lab) [address] [place], [address], 01/15/2023 12:06:22 01/16/20 23 01/15/2023 CBC/C OMPLE TE BLD COUNT W/DIF F neutrophils, absolute count 6.15 x10'3 /uL 1.5-8. 0 Not Available [facility] (Lab) [address] [place], [address], 01/15/2023 12:06:22 01/16/20 23 01/15/2023 CBC/C OMPLE TE BLD COUNT W/DIF F lymphocytes, absolute count 1.60 x10'3 /uL 1.07-3 .43 Not Available [facility] (Lab) [address] [place], [address], 01/15/2023 12:06:22 01/16/20 23 01/15/2023 CBC/C OMPLE TE BLD COUNT W/DIF F monocytes, absolute count 1.15 x10'3 /uL 0.29-0 .99 high Not Available [facility] (Lab) [address] [place], [address], 01/15/2023 12:06:22 01/16/20 23 01/15/2023 CBC/C OMPLE TE BLD COUNT W/DIF F eosinophils, absolute count 0.36 x10'3 /uL 0.02-0 .53 Not Available [facility] (Lab) [address] [place], [address], 01/15/2023 12:06:22 01/16/20 23 01/15/2023 CBC/C OMPLE TE BLD COUNT W/DIF F basophils, absolute count 0.08 x10'3 /uL 0.01-0 .08 Not Available [facility] (Lab) [address] [place], [address], 01/15/2023 12:06:22 01/16/20 23 01/15/2023 CBC/C OMPLE TE BLD COUNT W/DIF F immature granulocytes ,absolute 0.03 x10'3 /uL 0.00-0 .05 Not Available [facility] (Lab) [address] [place], [address], 01/15/2023 12:06:22 01/16/20 23 01/15/2023 CBC/C OMPLE TE BLD COUNT W/DIF F nucleated red blood cells 0.0 % -0 Not Available [facility] (Lab) [address] [place], [address], 01/15/2023 12:06:22 01/16/20 23 01/15/2023 CBC/C OMPLE TE BLD COUNT W/DIF F NRBC# 0.00 x10'3 /uL Not Available [facility] (Lab) [address] [place], [address], 01/15/2023 12:06:22 01/16/20 23 01/15/2023 COMPR EHENS JONATHAN METAB OLIC PANEL sodium 140 mmol/ L 137-14 5 Not Available [facility] (Lab) [address] [place], [address], 01/15/2023 12:24:31 01/16/20 23 01/15/2023 COMPR EHENS JONATHAN METAB OLIC PANEL potassium 4.3 mmol/ L 3.5-5. 1 Not Available [facility] (Lab) [address] [place], [address], 01/15/2023 12:24:31 01/16/20 23 01/15/2023 COMPR EHENS JONATHAN METAB OLIC PANEL chloride 106 mmol/ L 98-107 Not Available [facility] (Lab) [address] [place], [address], 01/15/2023 12:24:31 01/16/20 23 01/15/2023 COMPR EHENS JONATHAN METAB OLIC PANEL carbon dioxide 27 mmol/ L 22-30 Not Available [facility] (Lab) [address] [place], [address], 01/15/2023 12:24:31 01/16/20 23 01/15/2023 COMPR EHENS JONATHAN METAB OLIC PANEL anion gap 11.3 mmol/ L 14-22 low Not Available [facility] (Lab) [address] [place], [address], 01/15/2023 12:24:31 01/16/20 23 01/15/2023 COMPR EHENS JONATHAN METAB OLIC PANEL glucose 112 mg/dL 70-99 high Not Available [facility] (Lab) [address] [place], [address], 01/15/2023 12:24:31 01/16/20 23 01/15/2023 COMPR EHENS JONATHAN METAB OLIC PANEL BUN 17 mg/dL 8-19 Not Available [facility] (Lab) [address] [place], [address], 01/15/2023 12:24:31 01/16/20 23 01/15/2023 COMPR EHENS JONATHAN METAB OLIC PANEL creatinine 0.99 mg/dL 0.66-1 .25 Not Available [facility] (Lab) [address] [place], [address], 01/15/2023 12:24:31 01/16/20 23 01/15/2023 COMPR EHENS JONATHAN METAB OLIC PANEL GFR 55 Refer ence Range : [place] [facility] GFR Healt hy Adult : >60 [...] or ethni c subgr oups, such as Histx nics. Outsi de the valid ated katirn eters , estim ated GFR is less [...] s/kdo qi/gf r_cal culat or Not Available [facility] (Lab) [address] [place], [address], 01/15/2023 12:24:31 01/16/20 23 01/15/2023 COMPR EHENS JONATHAN METAB OLIC PANEL alkaline phosphatase 72 U/L 38-126 Not Available [facility] (Lab) [address] [place], [address], 01/15/2023 12:24:31 01/16/20 23 01/15/2023 COMPR EHENS JONATHAN METAB OLIC PANEL alanine aminotransfe rase 12 U/L 0-35 Not Available [facility] (Lab) [address] [place], [address], 01/15/2023 12:24:31 01/16/20 23 01/15/2023 COMPR EHENS JONATHAN METAB OLIC PANEL aspartate aminotransfe rase 31 U/L 15-37 Not Available [facility] (Lab) [address] [place], [address], 01/15/2023 12:24:31 01/16/20 23 01/15/2023 COMPR EHENS JONATHAN METAB OLIC PANEL bilirubin, total 0.90 mg/dL 0.20-1 .30 Not Available [facility] (Lab) [address] [place], [address], 01/15/2023 12:24:31 01/16/20 23 01/15/2023 COMPR EHENS JONATHAN METAB OLIC PANEL calcium 9.8 mg/dL 8.4-10 .2 Not Available [facility] (Lab) [address] [place], [address], 01/15/2023 12:24:31 01/16/20 23 01/15/2023 COMPR EHENS JONATHAN METAB OLIC PANEL total protein 6.8 g/dL 6.3-8. 2 Not Available [facility] (Lab) [address] [place], [address], 01/15/2023 12:24:31 01/16/20 23 01/15/2023 COMPR EHENS JONATHAN METAB OLIC PANEL albumin 4.3 g/dL 3.0-4. 4 Not Available [facility] (Lab) [address] [place], [address], 01/15/2023 12:24:31 01/16/20 23 01/15/2023 COMPR EHENS JONATHAN METAB OLIC PANEL globulin 2.5 g/dL 2.6-4. 2 low Not Available [facility] (Lab) [address] [place], [address], 01/15/2023 12:24:31 01/16/20 23 01/15/2023 COMPR EHENS JONATHAN METAB OLIC PANEL A/G ratio 1.7 ratio 1.0-2. 0 Not Available [facility] (Lab) [address] [place], [address], 01/15/2023 12:24:31 01/16/20 23 01/15/2023 LIPID PANEL cholesterol 127 mg/dL 140-19 9 low NIH OSWALDO NSUS RECOM MENDA TION FOR PAWAN STERO L: ADULT CHILD LOW RISK: <200 <170 BORDE RLINE : <200- 239 ----- HIGH RISK: >240 >200 Not Available [facility] (Lab) [address] [place], [address], 01/15/2023 12:24:49 01/16/20 23 01/15/2023 LIPID PANEL triglyceride s 185 mg/dL 0-150 high NIH OSWALDO NSUS REPOR T RECOM MENDA TION FOR TRIGL YCERI ZORAIDA: ADULT CHILD LOW RISK: <150 ----- BODER LINE: 150-1 99 ----- HIGH RISK: >200 ----- Not Available [facility] (Lab) [address] [place], [address], 01/15/2023 12:24:49 01/16/20 23 01/15/2023 LIPID PANEL HDL cholesterol 57 mg/dL 40- Not Available [facility] (Lab) [address] [place], [address], 01/15/2023 12:24:49 01/16/20 23 01/15/2023 LIPID PANEL [...] WILL NOT BE REPOR RUI. Not Available [facility] (Lab) [address] [place], [address], 01/15/2023 12:24:49 01/16/20 23 01/15/2023 T4 FREE free T4 1.29 NG/dL 0.78-2 .19 Not Available [facility] (Lab) [address] [place], [address], 01/15/2023 12:31:42 01/16/20 23 01/15/2023 TSH thyroid-stim ulating hormone 0.677 uIU/m L 0.465- 4.680 Not Available [facility] (Lab) [address] [place], [address], 01/15/2023 12:39:04 01/16/20 23 01/15/2023 HEMOG LOBIN A1C HA1C 6.0 % 4.0-6. 0 Diabe harman Scree roma Crite adi: <5.7% Consi stent with absen ce of diabe harman 5.7-6 .4% Consi stent with incre ased risk for diabe harman (pred iabet es) >OR=6 .5% Consi stent with diabe harman REFER ENCE: Diabe harman Care 2016, 39(Arnold ppl.1 ):s13 -s22 Not Available [facility] (Lab) [address] [place], [address], 01/15/2023 13:11:47 01/16/20 23 01/15/2023 VITAM IN B12 (MADDY DOMENICA ) vb12 677 pg/mL 239-93 1 Not Available [facility] (Lab) [address] [place], [address], 01/15/2023 18:31:01 01/16/20 23 01/15/2023 FOLAT E, SERUM /PLAS MA folate 5.65 NG/mL 2.76-2 0.0 Not Available [facility] (Lab) [address] [place], [address], 01/15/2023 18:31:05 01/16/20 23 01/15/2023 MICRO ALBUM IN RANDO M URINE microalbumin , urine 36.5 mg/L 0.0-16 .6 high Not Available [facility] (Lab) [address] [place], [address], 01/15/2023 18:38:15 04/23/20 23 04/23/2023 LIPID PANEL cholesterol 123 mg/dL 140-19 9 low NIH OSWALDO NSUS RECOM MENDA TION FOR PAWAN STERO L: ADULT CHILD LOW RISK: <200 <170 BORDE RLINE : <200- 239 ----- HIGH RISK: >240 >200 Not Available [facility] (Lab) [address] [place], [address], 04/23/2023 10:23:37 04/23/20 23 04/23/2023 LIPID PANEL triglyceride s 138 mg/dL 0-150 NIH OSWALDO NSUS REPOR T RECOM MENDA TION FOR TRIGL YCERI ZORAIDA: ADULT CHILD LOW RISK: <150 ----- BODER LINE: 150-1 99 ----- HIGH RISK: >200 ----- Not Available [facility] (Lab) [address] [place], [address], 04/23/2023 10:23:37 04/23/20 23 04/23/2023 LIPID PANEL HDL cholesterol 52 mg/dL 40- Not Available [facility] (Lab) [address] [place], [address], 04/23/2023 10:23:37 04/23/20 23 04/23/2023 LIPID PANEL [...] WILL NOT BE REPOR RUI. Not Available [facility] (Lab) [address] [place], [address], 04/23/2023 10:23:37 04/23/20 23 04/23/2023 COMPR EHENS JONATHAN METAB OLIC PANEL sodium 141 mmol/ L 137-14 5 Not Available [facility] (Lab) [address] [place], [address], 04/23/2023 10:23:48 04/23/20 23 04/23/2023 COMPR EHENS JONATHAN METAB OLIC PANEL potassium 4.5 mmol/ L 3.5-5. 1 Not Available [facility] (Lab) [address] [place], [address], 04/23/2023 10:23:48 04/23/20 23 04/23/2023 COMPR EHENS JONATHAN METAB OLIC PANEL chloride 104 mmol/ L 98-107 Not Available [facility] (Lab) [address] [place], [address], 04/23/2023 10:23:48 04/23/20 23 04/23/2023 COMPR EHENS JONATHAN METAB OLIC PANEL carbon dioxide 30 mmol/ L 22-30 Not Available [facility] (Lab) [address] [place], [address], 04/23/2023 10:23:48 04/23/20 23 04/23/2023 COMPR EHENS JONATHAN METAB OLIC PANEL anion gap 11.5 mmol/ L 14-22 low Not Available [facility] (Lab) [address] [place], [address], 04/23/2023 10:23:48 04/23/20 23 04/23/2023 COMPR EHENS JONATHAN METAB OLIC PANEL glucose 103 mg/dL 70-99 high Not Available [facility] (Lab) [address] [place], [address], 04/23/2023 10:23:48 04/23/20 23 04/23/2023 COMPR EHENS JONATHAN METAB OLIC PANEL BUN 24 mg/dL 8-19 high Not Available [facility] (Lab) [address] [place], [address], 04/23/2023 10:23:48 04/23/20 23 04/23/2023 COMPR EHENS JONATHAN METAB OLIC PANEL creatinine 1.05 mg/dL 0.66-1 .25 Not Available [facility] (Lab) [address] [place], [address], 04/23/2023 10:23:48 04/23/20 23 04/23/2023 COMPR EHENS JONATHAN METAB OLIC PANEL GFR 52 Refer ence Range : [place] ge GFR Healt hy Adult : >60 [...] calcu lator is avail able on the [facility] websi te: https ://ww w.kid ayla.o rg/pr ofess ional s/kdo qi/gf r_cal culat or Not Available [facility] (Lab) [address] [place], [address], 04/23/2023 10:23:48 04/23/20 23 04/23/2023 COMPR EHENS JONATHAN METAB OLIC PANEL alkaline phosphatase 63 U/L 38-126 Not Available [facility] (Lab) [address] [place], [address], 04/23/2023 10:23:48 04/23/20 23 04/23/2023 COMPR EHENS JONATHAN METAB OLIC PANEL alanine aminotransfe rase 27 U/L 0-35 Not Available [facility] (Lab) [address] [place], [address], 04/23/2023 10:23:48 04/23/20 23 04/23/2023 COMPR EHENS JONATAHN METAB OLIC PANEL aspartate aminotransfe rase 41 U/L 15-37 high Not Available [facility] (Lab) [address] [place], [address], 04/23/2023 10:23:48 04/23/20 23 04/23/2023 COMPR EHENS JONATHAN METAB OLIC PANEL bilirubin, total 0.40 mg/dL 0.20-1 .30 Not Available [facility] (Lab) [address] [place], [address], 04/23/2023 10:23:48 04/23/20 23 04/23/2023 COMPR EHENS JONATHAN METAB OLIC PANEL calcium 9.1 mg/dL 8.4-10 .2 Not Available [facility] (Lab) [address] [place], [address], 04/23/2023 10:23:48 04/23/20 23 04/23/2023 COMPR EHENS JONATHAN METAB OLIC PANEL total protein 6.3 g/dL 6.3-8. 2 Not Available [facility] (Lab) [address] [place], [address], 04/23/2023 10:23:48 04/23/20 23 04/23/2023 COMPR EHENS JONATHAN METAB OLIC PANEL albumin 3.8 g/dL 3.0-4. 4 Not Available [facility] (Lab) [address] [place], [address], 04/23/2023 10:23:48 04/23/20 23 04/23/2023 COMPR EHENS JONATHAN METAB OLIC PANEL globulin 2.5 g/dL 2.6-4. 2 low Not Available [facility] (Lab) [address] [place], [address], 04/23/2023 10:23:48 04/23/20 23 04/23/2023 COMPR EHENS JONATHAN METAB OLIC PANEL A/G ratio 1.5 ratio 1.0-2. 0 Not Available [facility] (Lab) [address] [place], [address], 04/23/2023 10:23:48 04/23/20 23 04/23/2023 MICRO ALBUM IN RANDO M URINE microalbumin , urine <6.0 mg/L 0.0-16 .6 Not Available [facility] (Lab) [address] [place], [address], 04/23/2023 10:27:21 04/23/20 23 04/23/2023 CBC/C OMPLE TE BLD COUNT W/DIF F white blood cells 7.2 x10'3 /uL 4.2-10 .8 Not Available [facility] (Lab) [address] [place], [address], 04/23/2023 10:29:24 04/23/20 23 04/23/2023 CBC/C OMPLE TE BLD COUNT W/DIF F red blood cells 4.20 x10'6 /uL 3.80-5 .20 Not Available [facility] (Lab) [address] [place], [address], 04/23/2023 10:29:24 04/23/20 23 04/23/2023 CBC/C OMPLE TE BLD COUNT W/DIF F hemoglobin 12.8 g/dL 12.0-1 5.6 Not Available [facility] (Lab) [address] [place], [address], 04/23/2023 10:29:24 04/23/20 23 04/23/2023 CBC/C OMPLE TE BLD COUNT W/DIF F hematocrit 39.9 % 35.7-4 5.7 Not Available [facility] (Lab) [address] [place], [address], 04/23/2023 10:29:24 04/23/20 23 04/23/2023 CBC/C OMPLE TE BLD COUNT W/DIF F mean red cell volume 95.0 fL 82.0-9 9.0 Not Available [facility] (Lab) [address] [place], [address], 04/23/2023 10:29:24 04/23/20 23 04/23/2023 CBC/C OMPLE TE BLD COUNT W/DIF F mean red cell hemoglobin 30.5 pg 27.0-3 3.0 Not Available [facility] (Lab) [address] [place], [address], 04/23/2023 10:29:24 04/23/20 23 04/23/2023 CBC/C OMPLE TE BLD COUNT W/DIF F mean RBC HGB concentratio n 32.1 g/dL 31.0-3 6.0 Not Available [facility] (Lab) [address] [place], [address], 04/23/2023 10:29:24 04/23/20 23 04/23/2023 CBC/C OMPLE TE BLD COUNT W/DIF F red cell distribution width 13.0 % 11.8-1 5.5 Not Available [facility] (Lab) [address] [place], [address], 04/23/2023 10:29:24 04/23/20 23 04/23/2023 CBC/C OMPLE TE BLD COUNT W/DIF F platelets 119 x10'3 /uL 150-40 0 low Not Available [facility] (Lab) [address] [place], [address], 04/23/2023 10:29:24 04/23/20 23 04/23/2023 CBC/C OMPLE TE BLD COUNT W/DIF F mean platelet volume 12.9 fL 9.0-12 .4 high Not Available [facility] (Lab) [address] [place], [address], 04/23/2023 10:29:24 04/23/20 23 04/23/2023 CBC/C OMPLE TE BLD COUNT W/DIF F neutrophils 49.0 % 39.0-7 2.0 Not Available [facility] (Lab) [address] [place], [address], 04/23/2023 10:29:24 04/23/20 23 04/23/2023 CBC/C OMPLE TE BLD COUNT W/DIF F lymphocytes 28.2 % 16.0-4 7.0 Not Available [facility] (Lab) [address] [place], [address], 04/23/2023 10:29:24 04/23/20 23 04/23/2023 CBC/C OMPLE TE BLD COUNT W/DIF F monocytes 15.8 % 5.0-12 .0 high Not Available [facility] (Lab) [address] [place], [address], 04/23/2023 10:29:24 04/23/20 23 04/23/2023 CBC/C OMPLE TE BLD COUNT W/DIF F eosinophils 5.7 % 1.0-7. 0 Not Available [facility] (Lab) [address] [place], [address], 04/23/2023 10:29:24 04/23/20 23 04/23/2023 CBC/C OMPLE TE BLD COUNT W/DIF F basophils 1.0 % 0.0-2. 0 Not Available [facility] (Lab) [address] [place], [address], 04/23/2023 10:29:24 04/23/20 23 04/23/2023 CBC/C OMPLE TE BLD COUNT W/DIF F immature granulocytes 0.3 % 0.00-0 .50 Not Available [facility] (Lab) [address] [place], [address], 04/23/2023 10:29:24 04/23/20 23 04/23/2023 CBC/C OMPLE TE BLD COUNT W/DIF F neutrophils, absolute count 3.55 x10'3 /uL 1.5-8. 0 Not Available [facility] (Lab) [address] [place], [address], 04/23/2023 10:29:24 04/23/20 23 04/23/2023 CBC/C OMPLE TE BLD COUNT W/DIF F lymphocytes, absolute count 2.04 x10'3 /uL 1.07-3 .43 Not Available [facility] (Lab) [address] [place], [address], 04/23/2023 10:29:24 04/23/20 23 04/23/2023 CBC/C OMPLE TE BLD COUNT W/DIF F monocytes, absolute count 1.14 x10'3 /uL 0.29-0 .99 high Not Available [facility] (Lab) [address] [place], [address], 04/23/2023 10:29:24 04/23/20 23 04/23/2023 CBC/C OMPLE TE BLD COUNT W/DIF F eosinophils, absolute count 0.41 x10'3 /uL 0.02-0 .53 Not Available [facility] (Lab) [address] [place], [address], 04/23/2023 10:29:24 04/23/20 23 04/23/2023 CBC/C OMPLE TE BLD COUNT W/DIF F basophils, absolute count 0.07 x10'3 /uL 0.01-0 .08 Not Available [facility] (Lab) [address] [place], [address], 04/23/2023 10:29:24 04/23/20 23 04/23/2023 CBC/C OMPLE TE BLD COUNT W/DIF F immature granulocytes ,absolute 0.02 x10'3 /uL 0.00-0 .05 Not Available [facility] (Lab) [address] [place], [address], 04/23/2023 10:29:24 04/23/20 23 04/23/2023 CBC/C OMPLE TE BLD COUNT W/DIF F nucleated red blood cells 0.0 % -0 Not Available [facility] (Lab) [address] [place], [address], 04/23/2023 10:29:24 04/23/20 23 04/23/2023 CBC/C OMPLE TE BLD COUNT W/DIF F NRBC# 0.00 x10'3 /uL Not Available [facility] (Lab) [address] [place], [address], 04/23/2023 10:29:24 04/23/20 23 04/23/2023 T4 FREE free T4 1.17 NG/dL 0.78-2 .19 Not Available [facility] (Lab) [address] [place], [address], 04/23/2023 10:32:56 04/23/20 23 04/23/2023 TSH thyroid-stim ulating hormone 0.634 uIU/m L 0.465- 4.680 Not Available [facility] (Lab) [address] [place], [address], 04/23/2023 11:00:11 04/23/20 23 04/23/2023 HEMOG LOBIN A1C HA1C 5.8 % 4.0-6. 0 Diabe harman Scree roma Crite adi: <5.7% Consi stent with absen ce of diabe harman 5.7-6 .4% Consi stent with incre ased risk for diabe harman (pred iabet es) >OR=6 .5% Consi stent with diabe harman REFER ENCE: Diabe harman Care 2016, 39(Arnold ppl.1 ):s13 -s22 Not Available [facility] (Lab) [address] [place], [address], 04/23/2023 12:21:03 09/23/20 22 09/23/2022 CT, abdom en + pelvi s, w/ contr ast No observ ation record ed. [id number] [facility] (Radiology) [address] [place], [address], 12/25/2022 05:07:19 09/23/20 22 09/23/2022 CT, abdom en + pelvi s, w/ contr ast [facility] [address] [facility], [place] [address] Saw t Name: ARUNA PANTOJA F Access ion #: [id number] Sex: F : 1949 0 Locati [...] 370 intrav enous Page [facility] 4 [facility] Saw lopez Name: ARUNA PANTOJA F Access ion #: [id number] Sex: F : 1949 0 Exam [...] acute proces s Page 2 of 4 [facility] t Name: ARUNA PANTOJA Access ion #: [id number] Sex: F : 1949 0 Exam [...] ly signed by: Page 3 of 4 [facility] t Name: ARUNA PANTOJA Access ion #: [id number] Sex: F : 1949 [id number] Exam Date: 2021 8:40 AM Exam Name: CT ABDOME N PELVIS W Admitt ing Diagno sis(es ): Wilfrid azevedo MD Signed Date: 2021 5:06 PM (CT) Dictat ed by: Wilfrid azevedo MD DD: 2021 5:06 PM (CT) DT: 2021 5:06 PM (CT) Page 4 of 4 [id number] [facility] (Imaging) [address] [facility], [place], [address], 12/25/2022 05:07:19 01/15/20 23 01/14/2023 XR, abdom en No observ ation record ed. [email or web address] [facility] [address], [place], [address], 01/15/2023 11:16:33 03/31/20 23 03/31/2023 , echoc ardio gram No observ ation record ed. [address] [facility] [address], [place], [address], 05/27/2023 12:42:39 04/23/20 24 04/23/2024 imagi ng/di agnos tic resul t No observ ation record ed. [facility] [address], [place], [address], 04/23/2024 12:03:13 01/15/20 25 01/14/2025 imagi ng/di agnos tic resul t No observ ation record ed. [facility] [address], [place], [address], 01/14/2025 18:14:57 Result Notes None recorded. Problems Name Problem SNOMED Code Status Onset Date Resolution Date Notes Provider Name and Address Organization Details Recorded Time Chronic kidney disease 429123296 Active 2022 Not Available [facility] 02/20/202 4 10:26:19 Near syncope 229877118 Active 2022 Not Available [facility] 4 10:26:18 Excess panniculus of abdomen 0068650430032 Active 2022 Not Available [facility] 4 10:26:18 Seasonal allergy 819263859 Active 2022 Not Available [facility] 4 10:26:19 Small bowel obstructio n 668854961 Active 2022 Not Available [facility] 4 10:26:18 Transient cerebral ischemia 017784492 Active 2022 Not Available [facility] 4 10:26:18 Abdominal discomfort 21236461 Active 2022 Not Available [facility] 4 10:26:18 Moderate recurrent major depression 51359697 Active 2022 Not Available [facility] 4 10:26:18 Thrombocyt openic disorder 026828591 Active 2022 Not Available [facility] 4 10:26:18 Pain of left wrist 2047493397810 02 Active 2022 Not Available [facility] 4 10:26:18 Skin lesion 69506430 Active 2022 Not Available [facility] 4 10:26:19 Pain of toe of left foot 3748722443255 08 Active 2022 Not Available [facility] 4 10:26:18 Bunion 372928216 Active 2022 Not Available [facility] 4 10:26:18 Diabetes mellitus 89777021 Active 2022 Not Available [facility] 4 10:26:19 Dystrophia unguium 84742802 Active 2022 Not Available [facility] 4 10:26:19 COVID-19 723784078 Active 2022 Not Available [facility] 4 10:26:19 Upper respirator y infection 49207973 Active 2022 Not Available [facility] 4 10:26:19 Tailor's bunion of right foot 3025726930935 109 Active 2019 Not Available [facility] 4 10:26:18 History of diverticul itis 4361511846221 00 Active 2020 Not Available [facility] 4 10:26:18 Cellulitis 103468954 Active Not Available [facility] 4 10:26:18 Hyperchole sterolemia 08934239 Active Not Available [facility] 4 10:26:18 Constipati on 13608988 Active 2022 Not Available [facility] 4 10:26:18 Pain of right elbow joint 9313606483757 9109 Active 2021 Not Available [facility] 4 10:26:18 Blood glucose outside reference range 611235138 Active Not Available [facility] 4 10:26:18 Localized, 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 436603138 Active 2019 Not Available [facility] 4 10:26:18 Tibialis posterior tendinitis 018981323 Active Not Available [facility] 4 10:26:18 Dog bite - wound 295214357 Active Not Available [facility] 4 10:26:18 Hypertrigl yceridemia 388485313 Active 2021 Not Available [facility] 4 10:26:18 Diverticul itis 593394012 Active 2016 Not Available [facility] 4 10:26:18 Localized, primary osteoarthr itis of elbow 522020031 Active Not Available [facility] 4 10:26:18 Type 2 diabetes mellitus without complicati on 353113572 Active 2019 Not Available [facility] 4 10:26:18 Pain in left foot 4262295551013 07 Active Not Available [facility] 4 10:26:18 Depressive disorder 00356731 Active Not Available [facility] 4 10:26:18 Sinusitis 68811608 Active Not Available [facility] 4 10:26:18 Osteoarthr itis 565354736 Active Not Available [facility] 4 10:26:18 Diaphragma tic hernia 01622099 Active Not Available [facility] 4 10:26:18 Pharyngiti s 878085899 Active Not Available [facility] 4 10:26:18 Body mass index 40+ - severely obese 427873784 Active 2017 Not Available [facility] 4 10:26:18 Hypothyroi dism 88501302 Active Not Available [facility] 4 10:26:18 Bunion 987228241 Active 2019 Not Available [facility] 4 10:26:18 History of laparoscop ic adjustable gastric banding 835888074 Active 2020 Not Available [facility] 4 10:26:18 Arthritis of elbow 792185701 Active 2021 Not Available [facility] 4 10:26:19 Pain of shoulder region 25581464 Active 2021 Not Available [facility] 4 10:26:19 Pain of shoulder region 76066052 Active 2021 Not Available [facility] 4 10:26:19 Anxiety 94992318 Active 2021 Not Available [facility] 4 10:26:19 Cough 29713247 Active Not Available [facility] 4 10:26:19 Talipes planus 03909912 Active Not Available [facility] 4 10:26:19 Hyperlipid emia 02861665 Active Not Available [facility] 4 10:26:19 Essential hypertensi on 38634495 Active 2016 Not Available [facility] 4 10:26:19 Obstructiv e sleep apnea syndrome 44632303 Active 2016 Not Available [facility] 4 10:26:19 Bursitis 08741291 Active Not Available [facility] 4 10:26:19 Fatigue 51295659 Active Not Available [facility] 4 10:26:19 Problem Notes None recorded. Procedures Surgical History Date Name Laterality Status Provider Name and Address Organization Details Recorded Time 06/03/20 23 Nail Debridement completed Massimo Porter, PARAG [address] [facility], [place], [address], [facility] [employer] 06/03/2023 10:21:02 04/24/20 23 Medicare Wellness CPT Code, subsequent completed Opal Hyde RN [place] [employer] 04/24/2023 14:31:12 07/04/20 22 EGD completed Not Available [facility] 12/25/2022 04:42:48 07/06/20 21 Most Recent Bone Density completed Not Available [facility] 12/25/2022 04:42:42 01/24/20 21 abdominoplasty completed Not Available [facility] 12/25/2022 04:42:48 07/01/20 13 Date of Last Colonoscopy completed Not Available [facility] 12/25/2022 04:42:42 Abdominal Surgery completed Not Available [facility] 12/25/2022 04:42:48 Cataract Surgery completed PRIYANKA [place] [facility] 01/16/2023 11:35:24 Imaging Results None recorded. Procedure Notes None recorded. Medical Equipment None Reported. Allergies Allergen ID Allergen Name Allergen Category Reaction Reaction Severity Criticality Documentation Date Start Date Code Code System Note Provider Name and Address Organization Details Recorded Time 8753 Demerol medicatio n vomiting Not available Not available 12/25/2022 94816 1 RxNorm Not Available [facility] 3 05:06:32 8754 codeine medicatio n vomiting Not available Not available 12/25/2022 2670 RxNorm Not Available [facility] 3 05:06:32 Medications Name Sig Start Date [...] administ ered by the provider 01/31 completed [facility]: [id number] - Not Available Not Available Not [...] Not Available Not Available No t Available [employer] Ultra2 Meter kit USE DIRECTED TO TEST [...] ular syringe TO BE ADMINIST ERED BY [employer] FOR IMMUNIZA TION 10/07 completed Not Available [...] % 97 % 72 /min 97.2 [degF] 08036.0 8 g 130 mm[Hg] 80 mm[Hg] Not Available [facility] 3 04:46:48 Date Recorded Body height Body mass index (BMI) Body weight Body temperature Heart rate Systolic blood pressure Diastolic blood pressure Provider Name and Address Organization Details Last Updated DateTime 3 154.94 cm 27.2 kg/m2 14111.3 g 97.1 [degF] 66 /min 114 mm[Hg] 66 mm[Hg] PRIYANKA [place] - [facility] [employer] [facility] 3 11:36:55 Date Recorded Body height Body mass index (BMI) Body weight Body temperature Heart rate Systolic blood pressure Diastolic blood pressure Provider Name and Address Organization Details Last Updated DateTime 3 154.94 cm 27.9 kg/m2 26314.8 7 g 97.2 [degF] 78 /min 116 mm[Hg] 60 mm[Hg] PRIYANKA Adams [employer] 3 14:11:04 Date Recorded Body height Body mass index (BMI) Body weight Heart rate Respiratory rate Oxygen saturation Oxygen saturation in Arterial blood by Pulse oximetry Systolic blood pressure Diastolic blood pressure Provider Name and Address Organization Details Last Updated DateTime 3 154.94 cm 27 kg/m2 47565.7 1 g 65 /min 14 /min 98 % 98 % 115 mm[Hg] 74 mm[Hg] Nydia Lewis [facility] 3 09:44:05 Date Recorded Body mass index (BMI) Body height Heart rate Body temperature Body weight Systolic blood pressure Diastolic blood pressure Provider Name and Address Organization Details Last Updated DateTime 2 27.6 kg/m2 154.94 cm 90 /min 97.7 [degF] 30078.4 9 g 110 mm[Hg] 66 mm[Hg] Not Available [facility] 3 04:46:48 Social History Question Answer Notes LastModified by [employer] ion Details LastModified Time Tobacco Smoking Status Never Smoker Not Available [facility] 12/25/2022 04:20:45 Do You Have An Advance Directive? No MIGRATION.19092 03599 Information not available 12/25/2022 Are You Blind Or Do You Have Difficulty Seeing? No MIGRATION.44690 75572 Information not available 12/25/2022 What Is Your Level Of Caffeine Consumption? Moderate MIGRATION.20688 59673 Information not available 12/25/2022 How Much Tobacco Do You Chew? None MIGRATION.60041 34194 Information not available 12/25/2022 In The 14 Days Before Symptom Onset, Have You Had Close Contact With A Laboratory-confir med COVID-19 While That Case Was Ill? No MIGRATION.49332 32627 Information not available 12/25/2022 In The 14 Days Before Symptom Onset, Have You Had Close Contact With A Person Who Is Under Investigation For COVID-19 While That Person Was Ill? No MIGRATION.20317 40835 Information not available 12/25/2022 Are You Deaf Or Do You Have Serious Difficulty Hearing? No MIGRATION.83930 33613 Information not available 12/25/2022 What Type Of Diet Are You Following? REGULAR MIGRATION.59949 31021 Information not available 12/25/2022 Which Illicit Or Recreational Drugs Have You Used? Marijuana Information not available 01/16/2023 What Is The Highest Grade Or Level Of School You Have Completed Or The Highest Degree You Have Received? RN19166-4 MIGRATION.65112 01312 Information not available 12/25/2022 Have There Been Any Changes To Your Family Or Social Situation? No MIGRATION.33380 82181 Information not available 12/25/2022 What Is The Fluoride Status Of Your Home? Unknown MIGRATION.22116 35202 Information not available 12/25/2022 Are There Any Guns Present In Your Home? Yes MIGRATION.70738 67507 Information not available 12/25/2022 Do You Use Insect Repellent Routinely? No MIGRATION.14064 23110 Information not available 12/25/2022 Where Do You Live? SingleLevelHouse MIGRATION.73934 43539 Information not available 12/25/2022 Do You Have A Medical Power Of Body Press Operator? No MIGRATION.49534 10211 Information not available 12/25/2022 What Was The Date Of Your Most Recent Tobacco Screening? 06/03/2023 [email or web address] Information not available 06/03/2023 Do You Have Any Pets? Yes MIGRATION.51924 16876 Information not available 12/25/2022 What Is Your Relationship Status? MIGRATION.45837 53572 Information not available 12/25/2022 Do You Use Your Seat Belt Or Car Seat Routinely? Yes MIGRATION.98922 61117 Information not available 12/25/2022 Do You Have Smoke And Carbon Monoxide Detectors In Your Home? Yes MIGRATION.48276 03102 Information not available 12/25/2022 Are You Passively Exposed To Smoke? No MIGRATION.95392 54232 Information not available 12/25/2022 Are There Any Smokers In Your House? No MIGRATION.36376 34304 Information not available 12/25/2022 How Much Tobacco Do You Smoke? No MIGRATION.70137 38189 Information not available 12/25/2022 Do You Use Sunscreen Routinely? No MIGRATION.28941 01724 Information not available 12/25/2022 Has Tobacco Cessation Counseling Been Provided? No N/a MIGRATION.59245 58122 Information not available 12/25/2022 How Many Years Have You Smoked Tobacco? 0 MIGRATION.95026 97644 Information not available 12/25/2022 Have You Recently Traveled Abroad? No MIGRATION.71168 72172 Information not available 12/25/2022 Have You Used IV Drugs? No Information not available 01/16/2023 Do You Have Difficulty Walking Or Climbing Stairs? No MIGRATION.00690 94533 Information not available 12/25/2022 Do You Have Any Dietary Restrictions? No MIGRATION.18528 73629 Information not available 12/25/2022 Sex: Female Functional Status Question Answer Note LastModified by [facility] ion Details LastModified Time Do you use any illicit or recreational drugs? Yes Information not available 01/16/2023 Do you or have you ever used any other forms of tobacco or nicotine? No MIGRATION.419703 3290 Information not available 12/25/2022 What is your level of alcohol consumption? None MIGRATION.033377 8564 Information not available 12/25/2022 Do you or have you ever used smokeless tobacco? Never used smokeless tobacco MIGRATION.795536 8392 Information not available 12/25/2022 Do you have transportation difficulties? No MIGRATION.638219 0619 Information not available 12/25/2022 Are you able to walk? YESWOREST MIGRATION.207346 5937 Information not available 12/25/2022 Do you have difficulty doing errands alone? No MIGRATION.622383 2272 Information not available 12/25/2022 Are you able to care for yourself? 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 No MIGRATION.735740 3279 Information not available 12/25/2022 Do you or have you ever used e-cigarettes or vape? Never used electronic cigarettes MIGRATION.705331 8339 Information not available 12/25/2022 What is your exercise level? None MIGRATION.116836 5070 Information not available 12/25/2022 Mental Status Question Answer Note LastModified by [employer] ion Details LastModified Time Do you feel stressed (tense, restless, nervous, or anxious, or unable to sleep at night)? [id number] MIGRATION.79032205 26 Information not available 12/25/2022 Do you have difficulty concentrating, remembering or making decisions? No MIGRATION.35500528 26 Information not available 12/25/2022 Family History Relationship Description Onset Age of this Age Resolved Age Notes LastModified by Organization Details LastModified Time Maternal Grandfather Diabetes mellitus MIGRATION.836 [id number] Not available 12/25/2022 04:42:52 Mother Diabetes mellitus MIGRATION.349 [id number] Not available 12/25/2022 04:42:52 Father Heart disease MIGRATION.345 [id number] Not available 12/25/2022 04:42:52 Sister Malignant tumor of stomach MIGRATION.012 3240646 Not available 12/25/2022 04:42:52 Medical History Condition [...] mcg/0.3 mL dose 2 completed Not Available [facility] 12/16/2023 10:26:20 COVID-19, mRNA, LNP-S, PF, 30 mcg/0.3 mL dose 2 completed Not Available [facility] 12/16/2023 10:26:20 Influenza, high-dose, quadrivalent, PF 2 completed Not Available [facility] 12/16/2023 10:26:19 COVID-19, mRNA, LNP-S, PF, 30 mcg/0.3 mL dose 1 completed Not Available [facility] 12/16/2023 10:26:20 SARS-COV-2 (COVID-19) vaccine, UNSPECIFIED 1 completed Not Available [facility] 12/16/2023 10:26:20 SARS-COV-2 (COVID-19) vaccine, UNSPECIFIED 1 completed Not Available [facility] 12/16/2023 10:26:20 Pneumococcal conjugate PCV 13 9 completed Not Available [facility] 12/16/2023 10:26:20 Influenza, split virus, quadrivalent, preservative 9 completed Not Available [facility] 12/16/2023 10:26:19 influenza, unspecified formulation 7 completed Not Available [facility] 12/16/2023 10:26:20 tetanus toxoid, unspecified formulation 5 completed Not Available [facility] 12/16/2023 10:26:20 pneumococcal polysaccharide PPV23 2 completed Not Available [facility] 12/16/2023 10:26:20 Influenza, high-dose, quadrivalent, PF 1 completed Not Available [facility] 12/16/2023 10:26:19 Influenza, high-dose, trivalent, PF 8 completed Not Available [facility] 12/16/2023 10:26:20 Influenza, split virus, quadrivalent, preservative 6 completed Not Available [facility] 12/16/2023 10:26:19 Influenza, split virus, trivalent, preservative 4 completed Not Available [facility] 12/16/2023 10:26:20 Influenza, split virus, trivalent, preservative 3 completed Not Available [facility] 12/16/2023 10:26:20 zoster live 3 completed Not Available [facility] 12/16/2023 10:26:20 Past Encounters Encounter ID Performer Location Encounter Start Date Encounter Closed Date Diagnosis/Indication Diagnosis SNOMED-CT Code Diagnosis ICD10 Code Diagnosis Note [id number] Brody mora MD [facility] Internal Med [facility] [address] [facility], [facility] [address] [place] [address] 02/06/2021 00:00:00 03/15/2021 09:12:55 [id number] Brody mora MD S_[facility] Internal Med [facility] 15 [address] [facility], [address] [address] 03/15/2021 00:00:00 03/20/2021 09:36:32 [id number] [facility] ic_Gateway S_[facility] Pul[facility] [place] [address] [place] [address] 04/10/2021 00:00:00 04/10/2021 13:28:43 [id number] Brody mora MD S[facility] Internal Med [facility] [address] [facility] [address] [place] [address] 05/15/2021 00:00:00 05/16/2021 13:12:12 [id number] Omero farley MD [facility] General Surgery [address] [facility] [address] [place] [address] 06/12/2021 00:00:00 06/12/2021 14:14:33 [id number] Brody mora MD [facility] Internal Med [facility] [address] [facility] [address] [place] [address] 06/21/2021 00:00:00 06/21/2021 11:10:32 [id number] _ATHN_MIGR ATION_1 _ATHENA_M IGRATION_ DEFAULT_1 _1 , 07/09/2021 00:00:00 07/09/2021 17:02:21 [id number] Brody mora MD Jackie_[facility] Internal Med [facility] [address] [facility] [address] [place] [address] 08/14/2021 00:00:00 08/15/2021 17:19:35 [id number] rBody mora MD [facility] Internal [facility] [address] [facility] [address] [place] [address] 11/19/2021 00:00:00 01/21/2022 15:53:56 [id number] MD [facility] [place] [address] [place] [address] 12/18/2021 00:00:00 12/18/2021 16:56:08 [id number] Brody mora MD [facility] Internal Med [facility] [address] [facility] [address] [place] [address] 01/31/2022 00:00:00 03/26/2022 14:20:03 [id number] MD CURT [facility] [place] [address] [place] [address] 03/27/2022 00:00:00 04/12/2022 11:43:40 [id number] Brody mora MD [facility] Internal Med [facility] [address] [place], [place] [address]., [address] [address] 06/06/2022 00:00:00 07/25/2022 16:43:39 [id number] rBody mora MD [facility] Internal Med [facility] [address] [place], [place] [address]., [address] [address] 06/27/2022 00:00:00 06/27/2022 12:14:26 [id number] Brody mora MD [facility] Internal Med [facility] [address] [facility] [address] [address] 09/17/2022 00:00:00 09/17/2022 11:57:41 [id number] Jelena Villeda, [employer] Pulmonolo gy [place] [address] [place] [address] 11/11/2022 00:00:00 11/11/2022 13:01:48 [id number] Brody mora MD [facility] Internal Med [facility] [address] [place] [address]., [address] [address] 01/16/2023 11:06:15 01/16/2023 12:42:18 Screening - NAD 920767596 Z13.9 C-scope: S/p surgery for diverticul itis [...] her understand ing of the above Hyperlipidemia 54192321 E78.5 On rosuvastat in 40mg daily, but stopped this on her own, will need to restart 09/17/2022 Not on vascepaGet labs 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 103948558 E11.9 On glipizide will decrease to 2.5mg daily as she did have a low glucose and felt presyncopa l 11/19/2021 , now on 5mg post hosp d/c 01/22/2022 , not taking this at this time 06/06/2022 On ozempicGet labsNeeds to see eye MD and podiatry Addendum: 03/26/2022 :She is cleared for surgeryDr MisbahCatsanta betancourttDate: 04/15/2022 OV 09/17/2022 :On ozempic, does well, no hx of MEN 2 or pancreatit isDoes well nowGet labs Chronic ki dney disease 646292155 N18.[address] Benavides On calcitriol On vit d weekly On lokelma (to treat high K), but not taking this as per her 11/19/2021 On mag ox Obstructiv e sleep apnea syndrome 81225289 G47.33 On CPAPSee pulmonary History of bariatric surgical procedure 230509599 Z98.[address] Mccray 07/09/2021 : Did not do the EGD as she was told to go an 1.5 hour awayGet a referral to Dr Sylvain VILLALOBOS 11/19/2021 Hypothyroidism 31267775 E03.9 On euthyrox 50mcgs daily US thyroid 07/06/2021 : Neg Pain of ri ght elbow joint 1772127620 5255332 M25.521 Still c/o pain and unable to extend the elbowAlso c/o pain in the R wrist Dr Calderon 12/18/2021 , 03/27/2022 , may need elbow arthroplas ty, and cardiac clearance, she did see [facility] Dr Zaldivar on 06/12/2022 as per her history today 09/17/2022 and was told no surgery needed Near syncope 306178382 R 55 [facility] 08/16/2022 , Dr Foley, next apt is in 6 months Diaphragmatic hernia 398 10866 K44.9 S/p [facility] ER, 07/04/2022 , EGD 07/04/2022 Dr Naryaan Essential hypertension 75113186 I10 S/p Roldan ICD 020: Seen in ER CNE as the Biotronik ICD was firing, as per Dr Alejandra this is lead noise and not true v-tach, pt d/c with f/u in Dr Alejandra' s office On ASAOn entresto 24-26mg bid Dr FoleyOn sotalol 80mg bid, changed to 40mg bid post d/c [facility] 01/22/2022 On mag ox Sees [facility] Dr Foley last OV 08/16/2022 , next in 6 months Moderate r ecurrent major depression 86870481 F33.1 On venlafaxin e ER 75mg dailyOn xanax 0.5mg daily as needed but uses this very rarelyOn buspirone 10mg po bid all side effects explained to her Does well, not suicidal or homicidalD eclines any psychiatry referrals Excess yousif niculus of abdomen 4353601718 101 E65 S/p surgery Dr Funes, she self referred to him Infected wound on 02/24/2021 and was readmitted , wound exploratio n and packing done in OR by Dr Lazo on 02/24/2021 Does well nowOn tramadol, advised to not take this often Small glenda l obstruction 224309052 K56.609 Admitted [facility], d/c 01/22S/p resection 01/16/2022 , treated with IV antibiotic s and PICC line as was NPO 01/22/2022 :CMP: Gluc 100, AST 37HCBC: WBC 10.8H, H/H 10.8/33.5 Does well now Thrombocyt openic disorder 323619477 D69.6 Dr Willis 04/25/2022 Transient cerebral ischemia 241222788 G45.9 This is new history as per herShe has seen a neurologis t in [place], cannot recall the nameShe has signed a LUDMILA and will call with the name Dr Hernandez 02/18/2022 Screening mammography 24 811312 Z12.31 Constipation 22488492 K5 9.00 Did see WILFREDO Roland [employer] INST[employer]ER on 01/14/2023 and did do an xray abd, now is on linzess as per her history Pain of left wrist 99989 67371 83699 M25.532 S/p EMG done by Dr Brand an apt with hand surgery [id number] Brody mora MD [facility] Internal Med [facility] 15 [address] [facility], [address] [place] [address] 04/24/2023 13:58:13 04/24/2023 14:35:06 Screening - NAD 253380775 Z13.9 C-scope: S/p surgery for diverticul itis [...] her understand ing of the above Hyperlipidemia 47320333 E78.5 On rosuvastat in 40mg daily, but stopped this on her own, will need to restart 09/17/2022 Not on vascepaGet labs 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 802626890 E11.9 On glipizide will decrease to 2.5mg daily as she did have a low glucose and felt presyncopa l 11/19/2021 , now on 5mg post hosp d/c 01/22/2022 , not taking this at this time 06/06/2022 On ozempicGet labsNeeds to see eye MD and podiatry Addendum: 03/26/2022 :She is cleared for surgeryDr Bravojose albertoJennifer contrerasDate: 04/15/2022 OV 09/17/2022 :On ozempic, does well, no hx of MEN 2 or pancreatit isDoes well nowGet labs OV 04/24/2023 :On ozempic, get labs, does well Chronic ki dney disease 766891304 N18.[address] Dr Benavides On calcitriol On vit d weekly On lokelma (to treat high K), but not taking this as per her 11/19/2021 On mag ox Obstructiv e sleep apnea syndrome 11490982 G47.33 On CPAPSee pulmonary History of bariatric surgical procedure 364171873 Z98.[address] Mccray 07/09/2021 : Did not do the EGD as she was told to go an 1.5 hour awayGet a referral to Dr Narayan GI 11/19/2021 Dr Narayan 02/05/2023 , started on linzess, f/u in 3 monthsNot taking linzess now Hypothyroidism 24169497 E03.9 On euthyrox 50mcgs daily US thyroid 07/06/2021 : Neg Pain of ri ght elbow joint 0399623620 4509222 M25.521 Still c/o pain and unable to extend the elbowAlso c/o pain in the R wrist Dr Calderon 12/18/2021 , 03/27/2022 , may need elbow arthroplas ty, and cardiac clearance, she did see [facility] MD Dr Zaldivar on 06/12/2022 as per her history 09/17/2022 and was told no surgery needed Near syncope 806951016 R 55 [facility] 08/16/2022 , Dr Foley, next apt is in 6 months Diaphragmatic hernia 398 28509 K44.9 S/p [facility], 07/04/2022 , EGD 07/04/2022 Dr Narayan Essential hypertension 90510941 I10 S/p Roldan ICD 020: Seen in ER CNE as the Biotronik ICD was firing, as per Dr Alejandra this is lead noise and not true v-tach, pt d/c with f/u in Dr Alejandra' s office On ASAOn entresto 24-26mg bid Dr QayyumOn sotalol 80mg bid, changed to 40mg bid post d/c [place] 01/22/2022 On mag ox Sees [facility] Dr Foley last OV 02/28/2023 , next in 6 months Moderate r ecurrent major depression 16100967 F33.1 On venlafaxin e ER 75mg dailyOn xanax 0.5mg daily as needed but uses this very rarelyOn buspirone 10mg po bid all side effects explained to her Does well, not suicidal or homicidalD eclines any psychiatry referrals Excess yousif niculus of abdomen 7467377837 101 E65 S/p surgery Dr Funes, she self referred to him Infected wound on 02/24/2021 and was readmitted , wound exploratio n and packing done in OR by Dr Lazo on 02/24/2021 Does well nowOn tramadol, advised to not take this often Small glenda l obstruction 695719213 K56.609 Admitted [facility], d/c 01/22S/p resection 01/16/2022 , treated with IV antibiotic s and PICC line as was NPO 01/22/2022 :CMP: Gluc 100, AST 37HCBC: WBC 10.8H, H/H 10.8/33.5 Does well now Thrombocyt openic disorder 380142463 D69.6 Dr Willis 02/28/2023 , f/u in 6 months Transient cerebral ischemia 797031816 G45.9 This is new history as per herShe has seen a neurologis t in [place], cannot recall the nameShe has signed a LUDMILA and will call with the name Dr Hernandez 02/18/2022 Screening mammography 24 009038 Z12.31 Constipation 13869239 K5 9.00 Did see WILFREDO Roland [employer] IN[employer] on 01/14/2023 and did do an xray abd, now is on linzess as per her history Pain of left wrist 99665 56776 26173 M25.532 S/p EMG done by Dr Brand an apt with hand surgery Screening for osteoporosis 300849774 Z13.820 Adult heal th examination 011019388 Z00.00 Screening for disorder 405343951 Z13.9 Skin lesion 26606714 L98 .9 Left anterior leg, small tender lesion noted, refer to Dr Cm [id number] Massimo Porter, PARAG [facility] [place] [address] [facility] [address] [place] [address] 06/03/2023 09:34:08 06/03/2023 10:36:29 Pain of toe of left foot 0943061507 80114 M79.675 left 2nd previous surgeryxra ys orderedcon t Supportive shoe gearfollow -up in 3 months Bunion 803600898 M21.61 1 xrays orderedfol low-up x-rays Osteoarthritis 284723971 M19.90 right midfootxra ys orderedfol low-up x-rays Diabetes mellitus 451511 09 E11.9 Patient educated on neuropathy , diabetes, diabetic diet, and daily foot exams. Patient is to check feet daily for new wounds, blisters, redness to prevent infection and ulceration s to the feet. Patient will return to clinic in 3 months for diabetic foot workup. Dystrophia unguium 98091 009 L60.3 Nails 1 through 10 were [...] 01/16/2023 1 [place] Katheryn F Scarlett [id number] Katheryn F Scarlett 01/16/2023 2 [employer] (MEDICARE SUPPLEMENT) [employer] Katheryn F Scarlett [id number] Katheryn F Scarlett 04/24/2023 1 [place] Katheryn F Scarlett [id number] Katheryn F Scarlett 04/24/2023 2 [employer] (MEDICARE SUPPLEMENT) [employer] Katheryn F Scarlett [id number] Katheryn F Scarlett 06/03/2023 1 [place] Katheryn F Scarlett [id number] Katheryn F Scarlett 06/03/2023 2 [employer] (MEDICARE SUPPLEMENT) [employer] Katheryn Pantoja [id number] Katheryn Pantoja Notes Date Note Type [...] did see Dr Pham and did have labsShnathan also states that she has had lateral epicondylitis on the R and now feels that it is back, she is R HD, has a decreased health plan specialist and also cannot extend her elbow, pain is sharp and hurts more with a health plan specialist OV 04/07/18ACV:She is here as she is having headaches, she states that she may have knocked the lead of the [facility], is to get the new leads this Thrusday at [facility] with Dr Cabrera states that she [...] the eliquis, [facility] 06/[facility]ACV:Here for a rash under her L [...] was seen in the ER at [facility] yesterday for a pre syncopal episode, states that she did have a CT head and labs and was d/c home to follow up with her PCPExtensive ROS noted for CVS and CNSShe is here with her Naresh recent labs OV 01/31/2022:TCM: d/c 01/22/2022 [facility] for SBO, s/p resection on 01/15/2022, Dr Neri with her , feels Gerri does state that she has seen a neurologist in [place], she was referred by her urban planning professor as there was concern about her having [...] do the labs Brody Collado MD [address] [facility], [address], [place], [address], [facility] 01/16/2023 13:11:27 3 text/html [...] she is R HD, has a decreased health plan specialist and also cannot extend her elbow, pain is sharp and hurts more with a gripOV 04/07/18ACV:She is here as she is having headaches, she states that she may have knocked the lead of the pacemaker with the alana, is to get the new leads this Thrusday at [facility] with Dr Cabrera states that she [...] the eliquis, [facility] 06/10/19:ACV:Here for a rash under her L axilla, very itchy, no fevers or chills, no N/V or diarrheaNo URI symptoms OV 09/02/19:Here for her routine aptShnathan feels well at this timeShe did do [...] but was seen in the ER at [facility] yesterday for a pre syncopal episode, states that she did have a CT head and labs and was d/c home to follow up with her PCPExtensive ROS noted for CVS and CNSShe is here with her Naresh recent labsOV 01/31/2022:TCM: d/c 01/22/2022 [facility] for SBO, s/p resection on 01/15/2022, Dr Neri with her , feels Gerri does state that she has seen a neurologist in [place], she was referred by her urban planning professor as there was concern about her having [...] stool Brody Collado MD [address], [facility] [address], [place], [address], [facility] 08/18/2023 14:50:39 3 text/html . Patient is [...] complaints. Massimo Porter DPM [address], [facility] [address], [place], [address], [facility] 06/03/2023 10:33:42 OBGyn Episode No OBEpisode recorded.
--- OUTSIDE RECORDS SUMMARY | 2025-04-05 13:45 | XMS_ITS | Clinical Summary ---
Author Organization [facility] al Address [address] [place] [address] Care Team Providers Care Clinical Assessment Manager Name Role Phone Dante Collado MD Primary Care Provide r Mk Alejandra MD Unavailable [phone] Allergies Active Allergy Reactions Criticality Noted Date [...] (01/17/2021): Added automatically from request for surgery [id number] Troponin level elevated 03/29/2020 Defibrillator discharge 03/28/2020 [...] on file Legal Sex Female 7:03 PM PORCELAIN TURNER Gender Identity Not on file Sexual Orientation Not on file Obstetrics History Last Filed Vital Signs Vital Sign Reading Time Taken Comments Blood Pressure 120/81 09/05/2022 8:37 AM PORCELAIN TURNER Pulse 66 09/05/2022 8:37 AM PORCELAIN TURNER Temperature 36.4 C (97.5 F) 11/18/2021 2:14 PM PORCELAIN TURNER Respiratory Rate 25 11/18/2021 6:20 PM PORCELAIN TURNER Oxygen Saturation 100% 11/18/2021 6:20 PM PORCELAIN TURNER Inhaled Oxygen Concentration - - Weight 66 kg (145 lb 6.4 oz) 09/05/2022 8:37 AM PORCELAIN TURNER Height 154.9 cm (5' 1) 09/05/2022 8:37 AM PORCELAIN TURNER Body Mass Index 27.47 09/05/2022 8:37 AM PORCELAIN TURNER Plan of Treatment Health Maintenance Due Date [...] 09/17/2022, 08/28 Medical Devices Implanted Type Area Director Of Exhibit Development Device Identifier Shelf Expiration Date Model / Serial / Lot [employer] [id number] Solia S 45cm Bipolar Active Fixation Lead Pacing Steroid Eluting - [id number] - [id number] Implanted:Qty: 1 on 09/22/2019 by Mk Alejandra MD at [facility] Lead [employer] [id number] 06/26/2021 [id number] / [id number] / Lead Icd Sentus Promri Left Ventricular Otw Quadripolar L-85/49 - [id number] - [id number] Implanted:Qty: 1 on 04/09/2018 by Mk Alejandra MD at [facility] [employer] 12/25/2019 [id number] / [id number] / [employer] [id number] Angio-Seal Vip Bondek-Plus 8fr .038in 70cm Hemostatic Latex Free - [id number] Implanted:Qty: 1 on 10/13/2018 by Mk Alejandra MD at [facility] [employer] 05/26/2019 [id number] / / [id number] Procedures Procedure Name Priority Date/Time Associated Diagnosis Comments EGFR STAT 11/18/2021 3:26 PM PORCELAIN TURNER LIPID PANEL Timed 03/28/2020 1:05 PM CDT COLONOSCOPY REPORT 07/01/2013 from Last 3 Months or Most Recently Relevant to Health Maintenance Results * eGFR (11/18/2021 3:26 PM PORCELAIN TURNER) eGFR 73 mL/min/1. 73 m2 MAT FERREIRA [...] last reviewed 2021. Blood 11/18/2021 3:26 PM PORCELAIN TURNER 11/18/2021 3:33 PM PORCELAIN TURNER us Felisha Porter MD LAB BLOOD ORDERABLES Final Resu lt MAT FERREIRA [id number] [place] [address] * Lipid panel (03/28/2020 1:05 PM CDT) [...] LAB BLOOD ORDERABLES [place] [id number] [place] [address] * COLONOSCOPY REPORT (07/01/2013) Anatomical Region Laterality Modality Other Narrative 07/01/2013 Ordered by an unspecified provider. Historical Provider GI PROCEDURE ORDERABLES F inal Result from Last 3 Months or Most Recently Relevant to Health Maintenance Insurance MEDICARE [employer] SENIOR SUPPLEMENT MEDICARE [facility] MEDICARE AET[employer] Advance Directives For more information, please contact: [phone] * Full Code (Latest Code Status on [...] 11:02 PM 10/01/2017 2:07 PM Care Teams Clinical Assessment Manager Relationship Specialty Start Date End Date Dante Collado MD [address] [address] PCP - General 09/10/17 [place] [id number] [address] Consulting Physician Cardiology 10/01/17
--- OUTSIDE RECORDS SUMMARY | 2025-04-05 13:45 | XMS_ITS | Referral Summary ---
Author Organization [facility] al Address [address] [place] [address] Care Team Providers Care Human Resources Clerk Name Role Phone Dante Collado MD Primary [...] (01/17/2021): Added automatically from request for surgery [id number] Troponin level elevated 03/29/2020 Defibrillator discharge 03/28/2020 [...] on file Legal Sex Female 7:03 PM SHOE REPAIRER Gender Identity Not on file Sexual Orientation Not on file Last Filed Vital Signs Vital Sign Reading Time Taken Comments Blood Pressure 120/81 09/05/2022 8:37 AM SHOE REPAIRER Pulse 66 09/05/2022 8:37 AM SHOE REPAIRER Temperature 36.4 C (97.5 F) 11/18/2021 2:14 PM SHOE REPAIRER Respiratory Rate 25 11/18/2021 6:20 PM SHOE REPAIRER Oxygen Saturation 100% 11/18/2021 6:20 PM SHOE REPAIRER Inhaled Oxygen Concentration - - Weight 66 kg (145 lb 6.4 oz) 09/05/2022 8:37 AM SHOE REPAIRER Height 154.9 cm (5' 1) 09/05/2022 8:37 AM SHOE REPAIRER Body Mass Index 27.47 09/05/2022 8:37 AM SHOE REPAIRER Plan of Treatment Not on file Medical Devices Implanted Type Area 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 Device Identifier Shelf Expiration Date Model / Serial / Lot [employer] [id number] Solia S 45cm Bipolar Active Fixation Lead Pacing Steroid Eluting - [id number] - [id number] Implanted:Qty: 1 on 09/22/2019 by Mk Alejandra MD at [facility] Lead [employer] [id number] 06/26/2021 [id number] / [id number] / Lead Icd Sentus Promri Left Ventricular Otw Quadripolar L-85/49 - [id number] - [id number] Implanted:Qty: 1 on 04/09/2018 by Mk Alejandra MD at [facility] [employer] 12/25/2019 [id number] / [id number] / [employer] [id number] Angio-Seal Vip Bondek-Plus 8fr .038in 70cm Hemostatic Latex Free - [id number] Implanted:Qty: 1 on 10/13/2018 by Mk Alejandra MD at [facility] [employer] 05/26/2019 [id number] / / [id number] Procedures Procedure Name Priority Date/Time Associated Diagnosis Comments EGFR STAT 11/18/2021 3:26 PM SHOE REPAIRER LIPID PANEL Timed 03/28/2020 1:05 PM CDT COLONOSCOPY REPORT 07/01/2013 from Last 3 Months or Most Recently Relevant to Health Maintenance Results * eGFR (11/18/2021 3:26 PM SHOE REPAIRER) eGFR 73 mL/min/1. 73 m2 MAT FERREIRA [...] last reviewed 2021. Blood 11/18/2021 3:26 PM SHOE REPAIRER 11/18/2021 3:33 PM SHOE REPAIRER us Felisha Porter MD LAB BLOOD ORDERABLES Final Resu lt MAT FERREIRA [id number] Department [place] [address] * Lipid panel (03/28/2020 1:05 [...] LAB [place] [id number] [address] Department of Laboratories [place] [id number] * COLONOSCOPY REPORT (07/01/2013) Anatomical Region Laterality Modality Other Narrative 07/01/2013 Ordered by an unspecified provider. [facility] Provider GI PROCEDURE ORDERABLES F inal Result from Last 3 Months or Most Recently Relevant to Health Maintenance Insurance MEDICARE [employer] SENIOR SUPPLEMENT MEDICARE AET[employer] SENIOR SUPPLEMENT MEDICARE [employer] Advance Directives For more information, please contact: [phone] * Full Code (Latest Code Status on [...] 11:02 PM 10/01/2017 2:07 PM Care Teams Human Resources Clerk Relationship Specialty Start Date End Date Dante Collado MD [address] [facility] [address] [place] [address] PCP - General 09/10/17 [place] [id number] [place] [address] Consulting Physician Cardiology 10/01/17
--- OUTSIDE RECORDS SUMMARY | 2025-04-05 13:46 | XMS_ITS | CONTINUITY OF CARE DOCUMENT ---
Author Name negin princessmikie Address Unknown Organization [facility] Address [address] [place] [address] Phone [phone] Care Team Providers Care Intelligence Officer Name Role Phone Juno Foley MD Unavailable GEORGE WALLACE MD Unavailable [phone] GEORGE WALLACE MD Unavailable [phone] PROBLEMS Condition Status Date Provider Notes [...] Mk Alejandra MD Fatigue active Vidal Hu COMMUNITY NURSE Nausea/Vomiting active Vidal Hu COMMUNITY NURSE Dizziness active Juno Foley MD Ventricular tachycardia, [...] In-person encounter Office Visit Juno Foley MD [facility] 4 - 4 In-person encounter Office Visit Juno Foley MD [facility] Chest pain-type to be determined 8 - 3 In-person encounter Office Visit Mk Alejandra MD [facility] Shortness of breathDiabetes Mellitus, Type II, controlled w/vascular complications 3 - 3 In-person encounter Office Visit Juno Foley MD [facility] 8 - 8 In-person encounter Office Visit Juno Foley MD [facility] 9 - 2 In-person encounter Office Visit Mk Alejandra MD [facility] 5 - 5 In-person encounter Office Visit Mk Alejandra MD [facility] 1 - 1 In-person encounter Office Visit Mk Alejandra MD [facility] 6 - 6 In-person encounter Office Visit Mk Alejandra MD [facility] 0 - 0 In-person encounter Office Visit Juno Foley MD [facility] 5 - 5 In-person encounter Office Visit Juno Foley MD [facility] 1 - 1 In-person encounter Office Visit Juno Foley MD [facility] 4 - 4 In-person encounter Office Visit Juno Foley MD [facility] Panic attack?CAD, nonobstructive disease on cath 2017 4 - 6 In-person encounter Office Visit Juno Foley MD [facility] 0 - 0 In-person encounter Office Visit Juno Foley MD [facility] 7 - 7 In-person encounter Office Visit Juno Foley MD [facility] Panic attack? 0 - 2 In-person encounter Office Visit Juno Foley MD [facility] 4 - 4 In-person encounter Office Visit Juno Foley MD [facility] 4 - 7 In-person encounter Office Visit Juno Foley MD [facility] 2 - 2 In-person encounter Office Visit Juno Foley MD [facility] 6 - 6 In-person encounter Office Visit Juno Foley MD [facility] 4 - 4 In-person encounter Office Visit Juno Foley MD [place] [facility] 6 - 6 In-person encounter Office Visit Mk Alejandra MD [facility] Office S/P Medtronic (MRI Safe) REVEAL/LinQ 3 - 3 In-person encounter Office Visit Mk Alejandra MD [place] [facility] 6 - 6 In-person encounter Office Visit Mk Alejandra MD [facility] 5 - 6 In-person encounter Office Visit Mk Alejandra MD [facility] 3 - 3 In-person encounter Office Visit Mk Alejandra MD [facility] 4 - 5 In-person encounter Office Visit Mk Alejandra MD [facility] 8 - 3 In-person encounter Office Visit Mk Alejandra MD [facility] 1 - 1 In-person encounter Office Visit Mk Alejandra MD [facility] 0 - 0 In-person encounter Office Visit Juno Foley MD [facility] SyncopeDiabetes mellitus type II 8 - 4 In-person encounter Office Visit Juno Foley MD [facility] 0 - 0 In-person encounter Office Visit Mk Alejandra MD [facility] Leg edema, bilateral 6 - 2 In-person encounter Office Visit Mk Alejandra MD [facility] Urinary tract infection 4 - 4 In-person encounter Office Visit Mk Alejandra MD [facility] 9 - 9 In-person encounter Office Visit Mk Alejandra MD [facility] 7 - 7 In-person encounter Office Visit Mk Alejandra MD [facility] 0 - 0 In-person encounter Office Visit Juno Foley MD [facility] 0 - 0 In-person encounter Office Visit Mk Alejandra MD [facility] S/P BiV ICD Biotronik//Genchange BiV ICD Biotronik 12/22/23 ( MRI Safe) 6 - 6 In-person encounter Office Visit Emmy Pham MD [facility] 0 - 5 In-person encounter Office Visit Mk Alejandra MD [facility] Examination, preoperative cardiovascular 1 - 4 In-person encounter Office Visit Mk Alejandra MD [facility] 1 - 1 In-person encounter Office Visit Juno Foley MD [facility] 4 - 4 In-person encounter Office Visit Mk Alejandra MD [facility] Ventricular tachycardia, sustained 1 - 1 In-person encounter Office Visit Juno Foley MD [facility] 0 - 1 In-person encounter Office Visit Juno Foley MD [facility] Dizziness 6 - 6 In-person encounter Office Visit Mk Alejandra MD [facility] 9 - 9 In-person encounter Office Visit Mk Alejandra MD [facility] 2 - 7 In-person encounter Office Visit Mk Alejandra MD [facility] 4 - 6 In-person encounter Office Visit Edin Suresh DO [facility] 8 - 8 In-person encounter Office Visit Juno Foley MD [facility] 2 - 2 In-person encounter Office Visit Mk Alejandra MD [facility] 1 - 6 In-person encounter Office Visit Mk Alejandra MD [facility] 5 - 5 In-person encounter Office Visit Mk Alejandra MD [facility] FatigueNausea/Vomiting 2 - 2 In-person encounter Office Visit Mk Alejandra MD [facility] 7 - 7 In-person encounter Office Visit Juno Foley MD [facility] 4 - 7 In-person encounter Office Visit Mk Alejandra MD [facility] Other symptoms involving cardiovascular systemObesityLBBBMitral regurgitationCHFVentricular tachycardia, nonsustained 3 - 3 In-person encounter Office Visit Juno Foley MD [facility] CardiomyopathyPVC's 0 - 0 In-person encounter Office Visit Juno Foley MD [facility] HyperlipidemiaHTN essentialDiverticulitis, colonHypothyroidismPreoperative cardiovascular examinationSleep apnea--on [...] lder weight E&M 145 [lb_av] Qi Flores [facility] height E&M 60 [in_i] Qi Flores [facility] Body Mass Index (Ratio) 28.90 kg/m2 Onur Foley MD blood pressure, diastolic 89 mm[Hg] Yasmin shirley [place] blood pressure, systolic 127 mm[Hg] [facility], oximetry 95 % [facility] pulse rate 103 /min [facility] respiratory rate E&M 12 /min [facility] weight E&M 148 [lb_av] [facility] height E&M 60 [in_i] [facility] blood pressure, cuff size regular An chloeSt. [facility] blood pressure, diastolic -1 mm[Hg] Cailin nkLog blood pressure, systolic 129 mm[Hg] Snehal kLog Body Mass Index (Ratio) 29.49 kg/m2 Barrett Bradleyzai blood pressure, diastolic 79 mm[Hg] Jessica yla [facility] blood pressure, systolic 129 mm[Hg] Radha la [facility] blood pressure, cuff size regular Jessica yla [facility] pulse rate 82 /min Tania Rust [facility] oxygen saturation, oximetry 96 % Tania [facility] weight E&M 151 [lb_av] Tania [facility] height E&M 60 [in_i] Tania [facility] Body Mass Index (Ratio) 29.88 kg/m2 Onur Foley MD blood pressure, cuff size regular Matheus Diana blood pressure, diastolic 82 mm[Hg] Ta elvis Diana blood pressure, systolic 132 mm[Hg] Tab ithabby Diana oxygen saturation, oximetry 97 % Jordynabby Diana pulse rate 75 /min Jordyn [place] weight E&M 153 [lb_av] Jordyn [place] respiratory rate E&M 12 /min Jordyn [place] height E&M 60 [in_i] Jordyn [place] Body Mass Index (Ratio) 29.53 kg/m2 Onur Foley MD pulse rate 74 /min [facility] blood pressure, cuff size large Matheus leal [place] blood pressure, diastolic 78 mm[Hg] [facility], systolic 124 mm[Hg] [facility] oxygen saturation, oximetry 96 % [facility] respiratory rate E&M 12 /min [facility] weight E&M 151.2 [lb_av] [facility] height E&M 60 [in_i] Jordyn [place] Body Mass Index (Ratio) 29.49 kg/m2 [facility] blood pressure, cuff size regular Ja [facility] blood pressure, diastolic 76 mm[Hg] [facility] blood pressure, systolic 128 mm[Hg] [facility] pulse rate 62 /min [facility] oxygen saturation, oximetry 99 % [facility] respiratory rate E&M 14 /min [facility] weight E&M 151 [lb_av] [facility] height E&M 60 [in_i] [facility] y Body Mass Index (Ratio) 29.88 kg/m2 Barrett rae blood pressure, cuff size regular [facility] blood [facility], diastolic 80 mm[Hg] Ke [...] 51 /min Deshawn weight E&M 155 [lb_av] Deshanw y height E&M 60 [in_i] Deshawn er [...] Devon Damon pulse rate 76 /min Dani ynig weight E&M 142 [lb_av] Dani ying blood [...] blood pressure, cuff size regular Kr isty Landrum blood pressure, diastolic 90 mm[Hg] Kr isty Landrum blood pressure, systolic 120 mm[Hg] Kri sty Landrum pulse rate 78 /min Luda Soy oxygen [...] pressure, diastolic, left arm 6 mm[ Hg] [facility], systolic, left arm 100 mm [Hg] blood pressure, diastolic, right arm 60 m m[Hg] blood pressure, systolic, right arm 100 m m[Hg] blood pressure, diastolic 60 mm[Hg] Ki blood pressure, systolic 100 mm[Hg] Sue khan Fowler oxygen saturation, oximetry 97 % Morgan respiratory rate E&M 16 /min pulse rate 61 /min Morgan weight E&M 214 [lb_av] Morgan height E&M 60 [in_i] [facility] Body Mass Index (Ratio) 41.59 kg/m2 Onur [...] er height E&M 60 [in_i] Qi Gruenenfe [facility] Body Mass Index (Ratio) 40.62 kg/m2 Donte Alejandra MD blood pressure, cuff size large Ke rri Akshatneannaeblbaylor scott [facility] blood pressure, diastolic 70 mm[Hg] Ke rri Gruenenfelder blood pressure, systolic 130 mm[Hg] Rosa Maria Landaverdeuenenfelder oxygen saturation, oximetry 97 % Qi Odenneannabelelder respiratory rate E&M 20 /min Qi Harvey gayenenfelder pulse rate 70 /min Qi Odenneannabele [facility] weight E&M 208 [lb_av] Qi Toroe [facility] height E&M 60 [in_i] Qi Munae er [...] Body Mass Index (Ratio) 40.03 kg/m2 Willy [facility] blood pressure, cuff size large Ke [...] pressure, systolic 120 mm[Hg] Rosa Maria ri [facility]aporter [facility] centerer oxygen saturation, oximetry 98 % Qi Torobaylor [facility]ott [facility] respiratory rate E&M 20 /min Qi Gabriel frankykambaylor [facility]ott [facility] pulse rate 70 /min Qi Flores er weight E&M 202 [lb_av] Qi Flores er height E&M 60 [in_i] Qi Flores er Body Mass Index (Ratio) 39.84 kg/m2 Chivo Pham MD pulse rate 68 /min [facility] oxygen saturation, oximetry 97 % [facility] Center[facility] blood pressure, diastolic 70 mm[Hg] Isael Phillips blood pressure, systolic 112 mm[Hg] Sujata Phillips respiratory rate E&M 16 /min Jes[facility]s [facility] Centercrowcrownpoint healthcare facilityfrancisco weight E&M 204 [lb_av] [facility] height E&M 60 [in_i] [facility] Body Mass Index (Ratio) 40.03 kg/m2 Cuauhtemoc [...] blood pressure, diastolic 80 mm[Hg] Julien goins Landrum blood pressure, systolic 116 mm[Hg] Demetria villegas Soy respiratory rate E&M 17 /min Luda Soy blood pressure, cuff size regular Julien goins [place] weight E&M 204 [lb_av] Luda Landrum pulse rate 72 /min Luda Landrum oxygen saturation, oximetry 98 % Luda Landrum height E&M 60 [in_i] Luda Soy Body [...] % Andrea respiratory rate E&M 16 /min [facility] pulse rate 16 /min weight E&M 204 [lb_av] height E&M 60 [in_i] [facility] Body [facility] Index (Ratio) 40.03 kg/m2 Donte Alejandra MD blood pressure, cuff size regular Ke rri Mally blood pressure, diastolic 72 mm[Hg] Ke rri Mally blood pressure, systolic 118 mm[Hg] Rosa Maria Bal oxygen saturation, oximetry 98 % Qi Bal respiratory rate E&M 18 /min Qi rangel pulse rate 70 /min Qi Flores [facility] weight E&M 205 [lb_av] Qi Flores er height E&M 60 [in_i] Qi Flores [facility] Body Mass Index (Ratio) 38.08 kg/m2 Mee Martini NP blood pressure, diastolic 70 mm[Hg] Julien isty Soy blood pressure, systolic 110 mm[Hg] Julieni nelly Landrum oxygen saturation, oximetry 98 % Luda Landrum respiratory rate E&M 17 /min Luda Soy pulse rate 70 /min Luda Soy weight E&M 195 [lb_av] Luda Soy blood pressure, cuff size regular Kr isty Landrum height E&M 60 [in_i] Luda Olivier Body Mass Index (Ratio) 38.47 kg/m2 Onur Foley MD blood pressure, diastolic 68 mm[Hg] Francisco chaidez Morgan blood pressure, systolic 112 mm[Hg] Sue Riberaam oxygen saturation, oximetry 98 % Andrea [facility] respiratory rate E&M 16 /min Andrea Morgan pulse rate 74 /min [facility] weight E&M 197 [lb_av] Andrea [facility] height E&M 60 [in_i] [facility] Body Mass Index (Ratio) 37.49 kg/m2 Donte Alejandra MD respiratory rate E&M 19 /min Marie Burnett blood pressure, diastolic 70 mm[Hg] Matheus hoover Burnett blood pressure, systolic 112 mm[Hg] Omalley evita Burnett pulse rate 75 /min Marie Hartman oxygen saturation, oximetry 98 % [facility] blood pressure, cuff size regular Matheus hoover Burnett weight E&M 192 [lb_av] Marei Burnett height E&M 60 [in_i] [facility] Body Mass Index (Ratio) 38.66 [...] Gaston Benitez blood pressure, diastolic 72 mm[Hg] Gsaton Benitez blood pressure, systolic 112 mm[Hg] Cira [...] LinkLogic 3.5-5.2 sodium, serum 141 mmol/L LinkLogic [phone]/05 /15 urea nitrogen/creatinine ratio, serum 20 LinkLogic [...] mmol/L LinkLogic 3.5-5.2 sodium, serum 144 mmol/L [facility] [phone]/10 /24 urea nitrogen/creatinine ratio, serum 18 LinkLogic [...] Not Estab. platelet count 155 X10E3/UL LinkLogic [phone]/10 /24 red blood cell distribution width 12.7 [...] 3.5-5.2 High sodium, serum 144 mmol/L LinkLogic 510-160 6428/01 /31 urea nitrogen/creatinine ratio, serum 17 LinkLogic [...] LinkLogic 3.5-5.2 sodium, serum 141 mmol/L LinkLogic 222-320 3832/11 /28 urea nitrogen/creatinine ratio, serum 18 LinkLogic [...] Not Estab. platelet count 203 X10E3/UL LinkLogic [phone]/11 /28 red blood cell distribution width 14.4 [...] LinkLogic 3.5-5.2 sodium, serum 140 mmol/L LinkLogic [phone]/10 /12 urea nitrogen/creatinine ratio, serum 17 LinkLogic [...] Not Estab. platelet count 219 X10E3/UL LinkLogic [phone]/06 /06 red blood cell distribution width 13.7 [...] 3.5-5.2 High sodium, serum 142 mmol/L LinkLogic [phone]/06 /06 urea nitrogen/creatinine ratio, serum 22 LinkLogic [...] percentage of total cells, blood 0.2 % [facility] Centeric - nucleated red blood cells as percent of blood leukocytes 0.3 % [facility] - red blood cell [...] - 3.9 mean platelet volume 13.8 (?) [facility] - platelet count 169.0 [...] of total cells, blood 0.1 % [facility] - mean corpuscular volume, RBC 94.0 fL LinkLog 75.0 - 100.0 hematocrit, blood 43.7 % [facility] 35.0 - 55.0 hemoglobin, blood 13.6 g/dL LinkLog 11.5 - 16.5 erythrocyte count, whole blood 4.7 MILLION/UL LinkLog 3.5 - 5.5 trichomonas vaginalis, urine None seen LinkLog urine crystals, microscopic None seen [facility] casts, urine, microscopic None seen [facility] mucus on urinalysis None seen [facility] Not Estab. nucleated red blood cells as percent of blood leukocytes 0.0 % [facility] - red blood cell (erythrocyte) count, per high power field 0.0 10*3/UL [facility] - eosinophils as percent of blood leukocytes 3.0 % [facility] - neutrophils as percent of blood leukocytes 57.7 % [facility] - Absolute Neutrophils 4.1 CELLS/UL LinkLog 1.5 - 7.8 basophils as percent of blood leukocytes 0.7 % [facility] - Absolute Basophils 0.1 CELLS/UL LinkLogic 0.0 - 0.2 monocytes as percent of blood leukocytes 14.3 % [facility] - Absolute Monocytes 1.0 CELLS/UL LinkLog 0.2 - 1.0 High lymphocytes as percent of blood leukocytes 24.2 % [facility] - Absolute Lymphocytes 1.7 CELLS/UL LinkLogic 0.9 - 3.9 mean platelet volume 13.6 (?) [facility] - platelet count 145.0 THOUSAND/UL LinkLog [...] once a week as directed - Qi Bla #8, 56 days supply, Prescribed by BRODY [...] Take 1 tablet as needed - Amadeo Vleasco Entresto 24-26 mg tablet completed 1 tablet [...] 10 days - Jesús Phillips VITAMIN D3 62199 UNIT ORAL TABLET completed TAKE ONE TAB [...] smoking status Never smoker Rachel Breen in COMMUNITY NURSE social history reviewed E&M revi ewed - [...] MD smoking status Never smoker Amadeo Darby [facility] social [facility] reviewed E&M revi ewed - no changes required Puma Benigno smoking status Never smoker Amadeo Darby [employer] social history reviewed E&M revi ewed - no changes required Puam Benigno smoking status Never smoker Natalia Richie [...] required Juno Foley MD alcohol counseling yes [facility] I ngram alcohol use, average drinks per day 4+ [facility] Morgan alcohol use yes [facility] smoking status Never smoker Andrea Ingra [...] smoker Qi Obando donya handedness R Handed Jua nDavid Lane social history E&M S moking History: [...] required Mk Alejandra MD alcohol counseling yes [facility] I ngram alcohol use, average drinks per day 4+ [facility] alcohol use yes [facility] smoking status Never smoker Andrea Ingra [...] 4+ Luda Soy alcohol use yes Luda Landrum smoking status Never smoker Luda Soy number [...] alcohol use, average drinks per day 4+ [facility] alcohol use yes [facility] smoking status Never smoker Andrea Riberaa m alcohol counseling yes Qi howellfelder alcohol use, average drinks per day 4+ Qi Odenmarileeer alcohol use yes Qi Hernandezkhushi lder smoking status Never smoker Qi naqvi number of grandchildren Mk Drake Hu COMMUNITY NURSE alcohol counseling yes Luda Bu sby alcohol use, average drinks per day 4+ Luda Landrum alcohol use yes Luda Soy smoking status Never smoker Luda Soy number of grandchildren Juno Foley MD U nicole Foley MD social history reviewed E&M revi ewed - no changes required Juno Foley MD social history reviewed E&M revi ewed - no changes required Mk Alejandra MD smoking status Never smoker [facility] social history E&M S moking History: Caterina best has never smoked. [facility] social history reviewed E&M revi ewed - no changes required [facility] alcohol counseling yes Qi Branch vadim alcohol use, average drinks per day 4+ Qi Ozer alcohol use yes Qi Hernandezannabelnathan lder social history reviewed E&M revi ewed - no changes required Mk Alejandra MD alcohol counseling yes Vidal Hu COMMUNITY NURSE alcohol use, average drinks per day 4+ Vidal Hu COMMUNITY NURSE alcohol use yes Vidal Hu COMMUNITY NURSE smoking status Never smoker Vidal Hu COMMUNITY NURSE number of grandchildren Mk Ellsworth social history [...] Osmin [place] number of grandchildren Mk Solorio [facility] social history E&M Smoking Histo ry: P atlakeisha has never smoked. Osmin [facility] social history reviewed E&M revi ewed [...] Payer name Policy type / Coverage type [facility] ID [place] Medicare [id number] ADVANCE DIRECTIVES Name Date DISCUSSED - NO DECISION MADE TREATMENT PLAN Date Name Performer [id number],B, Juno Foley MD [id number],C,seen on last echo Juno Foley MD [id number],C,last echo EF 60% Juno Foley MD [id number],C,p er PCP, she will start jardiance for renal protection l ast A1c 5.5% Juno Foley MD [id number],S, Juno Foley MD [id number],C, H er updated medication list for this problem includes: Crestor 20 Mg Tablet (Rosuvastatin) ..... Take 1 tablet once a day Juno Foley MD [id number],C, B P today: 120/79 P rior BP: 114/78 (08/16/2022) Labs Reviewed: C reat: 0.91 (03/10/2021) C hol: 211 (11/26/2018) HDL: 60 (11/26/2018) Her updated medication list for this problem includes: Sotalol 80 Mg Tablet (Sotalol) ..... Take 0.5 tablet by mouth twice a day Juno Foley MD [id number],B, Juon Foley MD [id number],B,I will repeat her echo in a month or so. She is on Entresto and Crestor. She also has a defibrillator Juno Foley MD [id number],S, Juno Foley MD [id number],B, Juno Foley MD [id number],S, Juno Foley MD [id number],S, Juno Foley MD [id number],S, A ppears stable. No chest pain. Continues on crestor. Her updated medication list for this problem includes: Sotalol 80 Mg Tablet (Sotalol) ..... Take 0.5 tablet once a day Juno Foley MD [id number],S, s he hasn't been using cpap at night Juno Foley MD [id number],S, I 'm going to cut her crestor to 20mg - I don't think she needs such a high dose since she has only mild CAD. Her updated medication list for this problem includes: Crestor 20 Mg Tablet (Rosuvastatin) ..... Take 1 tablet once a day Juno Foley MD [id number],S, N o recurrence K 4.4. 06/19/21 Juno Foley MD [id number],S, B P today: 101/59 P rior BP: 135/78 (11/19/2021) Her updated medication list for this problem includes: Sotalol 80 Mg Tablet (Sotalol) ..... Take 0.5 tablet once a day Juno Foley MD [id number],S, C lincally well compensated and is without shortness of breath. Continues on Entresto 49-51mg dose. Last EF was 60-65%. Juno Foley MD [id number],S, s /p BIV ICD, no recent events or shocks Juno Foley MD [id number],S, A 1C 5.5 Her updated medication list for this problem includes: Ozempic 0.25 Mg Or 0.5 Mg(2 Mg/1.5 Ml) Pen Injector (Semaglutide) ..... Once a week as directed Entresto 24-26 Mg Tablet (Sacubitril-valsartan) ..... 1 tablet by mouth twice a day Glipizide 5 Mg Tablet Extended Release 24hr (Glipizide) ..... Take 1 tablet by mouth once a day Rachel Bautista NP [id number],S, E F 60~65% on last echo. Rachel Bautista NP [id number],S, C lincally well compensated and is without shortness of breath. Continues on Entresto 49-51mg dose today. Rachel Bautista NP [id number],S, T he patient is using CPAP on a regular basis. The patient has been benefiting from therapy and should continue use. Rachel Bautista NP [id number],S, E pisode in September 2017 leading to shock by defibrillator. No recurrence. Rachel Bautista HALEY [id number],W, P rescribed Buspar by PCP. Recommend neurology evaluation. Rachel Bautista HALEY [id number],S, H er updated medication list for this problem includes: Tricor 145 Mg Tablet (Fenofibrate nanocrystallized) ..... 1 tablet once a day Crestor 40 Mg Tablet (Rosuvastatin) ..... 1 tablet once a day Rachel Bautista HALEY [id number],S, B P today: 135/78 P rior BP: 110/79 (10/05/2021) Her updated medication list for this problem includes: Sotalol 80 Mg Tablet (Sotalol) ..... Take 0.5 tablet once a day Rachel Jerel DE LEON [id number],C, T he patient is using CPAP on a regular basis. The patient has been benefiting from therapy and should continue use. Juno Foley MD [id number],C, N o recurrence K 4.4. 06/19/21 Juno Foley MD [id number],C, H er updated medication list for this problem includes: Tricor 145 Mg Tablet (Fenofibrate nanocrystallized) ..... 1 tablet once a day Crestor 40 Mg Tablet (Rosuvastatin) ..... 1 tablet once a day Juno Foley MD [id number],C, s /p BIV ICD, no recent events or shocks Juno Foley MD [id number],C, B P today: 110/79 P rior BP: 130/80 (06/22/2021) Labs Reviewed: C reat: 0.91 (03/10/2021) C hol: 211 (11/26/2018) HDL: 60 (11/26/2018) Her updated medication list for this problem includes: Sotalol 80 Mg Tablet (Sotalol) ..... Take 0.5 tablet once a day Juno Foley MD [id number],B, C lincally well compensated and is without shortness of breath. Continues on Entresto 49-51mg dose today. Juno Foley MD [id number],B, E F 60~65% on last echo. Juno Foley MD [id number],S, Rachel brian COMMUNITY NURSE [id number],B, Rachel brian COMMUNITY NURSE [id number],N,P rescribed Buspar by PCP. Feels better. Rachel Bautista NP [id number],B,resolved Abhinav Bautista NP [id number],S, Juno Foley MD [id number],B,on last echo. Juno Foley MD [id number],C,will repeat b mp. Juno Foley MD [id number],C,T his may be a vasovagal attack, but [...] medical condition(s) listed above for the patient. [facility]:No signs of decompensation This visit has been a part of the consistent, comprehensive, and ongoing management of the chronic medical condition(s) listed above for the patient. [facility]:This visi t has been a part of the consistent, comprehensive, and ongoing management of the chronic medical condition(s) listed above for the patient. Her updated medication list for this problem includes: Jardiance 10 Mg Tablet (Empagliflozin) Ozempic 0.25 Mg Or 0.5 Mg(2 Mg/1.5 Ml) Pen Injector (Semaglutide) ..... Once a week as directed [facility]:Cath 2017 I MPRESSION: 1 . Mild pulmonary hypertension. 2 . Severe LV dysfunction. 3 . Moderate nonobstructive CAD. 4 . No significant renal artery stenosis. This visit has been a part of the consistent, comprehensive, and ongoing management of the chronic medical condition(s) listed above for the patient. [facility]:This visi t has been a [...] (Semaglutide) ..... Once a week as directed [facility] wo und check : l ast echo EF 60% [facility] Electrophysiology wo und check : C lincally well compensated and is without shortness of breath. Continues on Entresto 24-26 mg dose. Last EF was 60-65%. [facility] Electrophysiology wo und check : P rior BP: 112/80 (12/12/2023) Labs Reviewed: C reat: 0.91 (03/10/2021) C hol: 211 (11/26/2018) HDL: 60 (11/26/2018) LDL: 116 (11/26/2018) T (11/26/2018) Her updated medication list for this problem includes: Sotalol 80 Mg Tablet (Sotalol) ..... Take 0.5 tablet by mouth twice a day [facility] Electrophysiology: H er updated medication list for this problem includes: Ozempic 0.25 Mg Or 0.5 Mg(2 Mg/1.5 Ml) Pen Injector (Semaglutide) ..... Once a week as directed [facility] Electrophysiology:Pt denies any CP or SOB. [facility] Electrophysiology: B P today: 112/80 P rior BP: 118/72 (09/05/2023) Labs Reviewed: C reat: 0.91 (03/10/2021) C hol: 211 (11/26/2018) HDL: 60 (11/26/2018) LDL: 116 (11/26/2018) T (11/26/2018) Her updated medication list for this problem includes: Sotalol 80 Mg Tablet (Sotalol) ..... Take 0.5 tablet by mouth twice a day [facility] Electrophysiology:FRANKI, scheduled for gen change Barrett Johnston [...] Juno Foley MD Cardiology follow up [facility] COMMUNITY NURSE : E pisode in September 2017 leading to shock by defibrillator. No recurrence. Mk Alejandra MD Cardiology follow up [facility] COMMUNITY NURSE :A1C 5.5 H er updated medication list [...] Mk Alejandra MD Cardiology follow up [facility] COMMUNITY NURSE :Entresto decreased last month. BP stable, pt feels much better Her updated medication list for this problem includes: Aspir-81 81 Mg Oral Tablet Delayed Release (Aspirin) ..... Take one tablet daily Sotalol 80mg Tablets (Sotalol hcl) ..... Take one half tablet per day Tania Gomez NP Cardiology follow up [facility] COMMUNITY NURSE :Device ok. R V 94%, LV94% N o AF/AT/VT. Onepisode of SVT 8 seconds Tania Gomez COMMUNITY NURSE Cardiology follow up [facility] COMMUNITY NURSE : E pisode in September 2017 leading to shock by defibrillator. No recurrence. Tania Marin Patricia DE LEON Cardiology follow up [facility] COMMUNITY NURSE :K 4. 6 . Cr. 0.91 Tania Gomez COMMUNITY NURSE Cardiology follow up [facility] COMMUNITY NURSE :A1C 5.5 H er updated medication list [...] was taken off of [facility] in the hospital Juno Foley MD Cardiology:The [...] Foley MD Cardiology:Continues on [facility] Juno Foley MD Cardiology:Increased Entresto to 49-51mg [...] t o remain on [facility] at this time and not to restrict [...] revision. Most recent device check: 05/05/2020 AT/AF [place]: 0% % Pacing: RV Pacing- 98% RA Pacing- 0% LV P acing- 98% Juno Foley MD Cardiology:Will swit ch from Lisinopril to Entresto. Will check a BMP in one month. Juno Foley MD Electrophysiology:no rmal device function w ell healing scar [facility] Cardiology follow up :normal device fucntion w ell healing scar [facility] Cardiology:normal de vice function w ell healing scar [facility] Electrophysiology:wi ll need lead replacement in 3 months after she had fully healed [facility] Electrophysiology: H er updated medication list for this problem includes: Lisinopril 5 Mg Oral Tablet (Lisinopril) ..... One tab. daily Aspir-81 81 Mg Oral Tablet Delayed Release (Aspirin) ..... Take one tablet daily Sotalol 80mg Tablets (Sotalol hcl) ..... Take 1 tablet by mouth twice daily [facility] Electrophysiology: H er updated medication list [...] lead replacement. Pt agrees with this plan [facility] Electrophysiology:Di scussed need for new LV lead replacement [facility] Electrophysiology: B P today: 126/88 P [...] tab. twice daily Orders: C omplete Echo (CPT-72984) C omplete Echo (CPT-34997) X -Ray, Chest - Routine (CPT-94115) X -Ray, Chest - Routine (CPT-95378) Mk Alejandra MD Electrophysiology: H er updated medication list for this problem includes: Lisinopril 5 Mg Oral Tablet (Lisinopril) ..... One tab. daily Aspir-81 81 Mg Oral Tablet Delayed Release (Aspirin) ..... Take one tablet daily Sotalol Hcl 80 Mg Oral Tablet (Sotalol hcl) ..... One tab. twice daily Orders: E KG (CPT-44448) C omplete Echo (CPT-49408) X -Ray, Chest - Routine (CPT-82792) Mk Alejandra MD Cardiology:PAtient v milanaalizes that [...] chedule Followup (*) 9 9214 MOD Complex (CPT-56013) V enous Doppler Bilateral LE (CPT-05786) Mk Alejandra MD Electrophysiology Fo llow up : W ill check venous doppler BLE for DVT. W ill check CMP and d-dimer. S chedule CT chest with IV contrast IF d-dimer comes back positive. Hx of SOB and leg edema. Orders: C OMPREHENSIVE METABOLIC PANEL, W/EGFR (91558) D -DIMER, QUANTITATIVE (8659) L IPID PANEL (3660) V enous Doppler Bilateral LE (CPT-40718) S chedule Followup (*) 9 9214 MOD Complex (CPT-78908) Her updated medication list for this problem [...] PVCs/hr. Orders: C OMPREHENSIVE METABOLIC PANEL, W/EGFR (33871) D-DIMER, QUANTITATIVE (8659) L IPID PANEL (7010) S chedule Followup (*) 9 14 MOD Complex (CPT-30981) Her updated medication list for this problem includes: Lisinopril 2.5 Mg Oral Tablet (Lisinopril) ..... One tab. at night Aspir-81 81 Mg Oral Tablet Delayed Release (Aspirin) ..... Take one tablet daily Sotalol Hcl 80 Mg Oral Tablet (Sotalol hcl) ..... One tab. twice daily Mk Alejandra MD Electrophysiology Ho spital Follow up : O rders: U RINALYSIS, COMPLETE W/REFLEX TO CULTURE (0478) Her updated medication list for this problem [...] One tab. twice daily Orders: E KG (CPT-28035) 9 9214 MOD Complex (CPT-44040) C omplete Echo (CPT-97986) Mk Alejandra MD Electrophysiology Ho spital Follow up : O rders: 9 9214 MOD Complex (CPT-70610) C omplete Echo (CPT-83240) Her updated medication list for this problem [...] 04/21/17. D evice check 06/10/18 shows 89% OBSTETRICS NURSE, 78% BiVP. No SVT. Her updated medication [...] Orders: A BLATION w/ Anesthesia (*) 9 9225 LTD. Complex (CPT-67879) Schedule Followup (*) Her updated medication list [...] 05/15/18 shows EF 35%. Orders: E KG (CPT-61018) 9 9298 MOD Complex (CPT-39793) S chedule Followup (*) Her updated medication [...] Fo llow up :Orders: 9213 MOD Complex (CPT-52190) S chedule Followup (*) Her updated medication [...] 04/21/17. D evice check 06/10/18 shows 89% OBSTETRICS NURSE, 78% BiVP. No SVT. Her updated medication [...] anesthesia in the next few months at [facility]. P atient to take 5mg Coumadin daily for 7 days prior to procedure. Orders: 9213 MOD Complex (CPT-95765) S chedule Followup (*) A BLATION w/ [...] 04/21/17. D evice check 06/10/18 shows 89% OBSTETRICS NURSE, 78% BiVP. No SVT. F ollowup with [...] tab. twice daily Juan [address]ichi Lane Electrophysiology [facility] Ariana Electrophysiology Ho spital Follow [...] INR (8847) C OMPREHENSIVE METABOLIC PANEL W/EGFR (51573) U RINALYSIS, COMPLETE W/REFLEX TO CULTURE (3020) [...] Follow up : O rders: S NOMED-CT: [id number] Current Medications Documented ([facility]-[id number]) E KG (CPT-61342) G lobal No Charge (CPT-60343) F VC - 37812 (64065) F RC - 72754 (20784) D LCO - 75726 (29244) Her updated medication list for this problem [...] up : O rders: D O - 38309 (05856) [facility] (*) Her updated medication list for this problem includes: Spironolactone 25 Mg Oral Tablet (Spironolactone) ..... Half tablet daily Carvedilol 6.25 Mg Oral Tablet (Carvedilol) ..... One tab. twice daily Enalapril Maleate 20 Mg Oral Tablet (Enalapril maleate) ..... One tab. daily Saulius Kalvaitis MD Electrophysiology Ho spital Follow up :improved on amiodarone O rders: Harvey saleh No Charge (CPT-46087) S vesta Followup (*) Her updated medication list for this problem includes: Amiodarone Hcl 200 Mg Oral Tablet (Amiodarone hcl) ..... Take one pill a day Carvedilol 6.25 Mg Oral Tablet (Carvedilol) ..... One tab. twice daily Enalapril Maleate 20 Mg Oral Tablet (Enalapril maleate) ..... One tab. daily Mk Alejandra MD Electrophysiology - NP:s/p biv icd Vidal Hu COMMUNITY NURSE Cardiology:Having surgery to rem ove part of [...] (Enalapril maleate) ..... One tab. daily Osmin [facility] EP fax[facility] 01/23/17 [facility] 01/23/17:Her updated medication list for this problem includes: Carvedilol 6.25 Mg Tabs (Carvedilol) ..... One tab. twice daily Enalapril Maleate 20 Mg Tabs (Enalapril maleate) ..... One tab. daily Magnesium Oxide 400 Mg Oral Tabs (Magnesium oxide) .... One tablet twice daily <--- Starting today Patient is planned to undergo cardiac catheterization. Will schedule EP study after her cath. Osmin [facility] EP faxed 01/23/17:Her updated medication list for this problem includes: Carvedilol 6.25 Mg Tabs (Carvedilol) ..... One tab. twice daily Enalapril Maleate 20 Mg Tabs (Enalapril maleate) ..... One tab. daily Magnesium Oxide 400 Mg Oral Tabs (Magnesium oxide) .... One tablet twice daily <--- Starting today Osmin [facility] Cardiology:[place] [address] ectopics 6.8% of total beats. Will schedule [...] Duplex Bilat eral Complete Echo DLCO - 96971 FRC - 77880 FVC - 28685 MAGNESIUM COMPREHENSIVE METABO LIC PANEL, W/EGFR THYROID PANEL WITH T SH, 3RD GENERATION Complete Echo DLCO - 08347 FRC - 06215 FVC - 95504 Complete Echo URINALYSIS, COMPLETE W/REFLEX TO CULTURE [...] Juno Foley MD INTERROGATION REMOTE </90 D MENTAL HEALTH PROGRAM DIRECTOR REVIEW completed AICD Interrogation, Remote (Prof) Juno [...] Juno Foley MD INTERROGATION REMOTE </90 D MENTAL HEALTH PROGRAM DIRECTOR REVIEW completed AICD Interrogation, Remote (Prof) Juno [...] jc MD completed FVC / MVV - 19801 Mk davila MD completed FRC - 06366 Mk jc MD completed SpO2 w/o 6min walk/titration Mk Alejandra MD completed DLCO - 62126 Mk jc MD completed EKG Mk jc [...] REMOTE </30 D TECH REVIEW completed SNOMED-CT: 31330027 Physical Exam, Performed: Pulse Exam of Foot Juno Foley MD completed SNOMED-CT: 933203111443020 Current Medications Documented Juno Foley MD completed EKG Mk jc MD completed EKG Juno Foley MD completed EKG Mk jc MD completed SNOMED-CT: 542474828469582 Current Medications Documented Mk Alejandra MD completed EKG Mk jc MD completed SNOMED-CT: 920701870869320 Current Medications Documented Mk Alejandra MD completed FVC / MVV - 78611 Mk davila MD completed FRC - 26238 Mk jc MD completed SpO2 - 84537 Mk jc MD completed DLCO - 64948 Mk jc MD completed ICM Interrogation, Remote (Prof) Juno Foley MD INTERROGATION EVAL REMOTE </30 D CV MNTR SYS completed ICM Interrogation, Remote (Tech) Juno Foley MD INTERROGATION EVAL REMOTE </30 D TECH REVIEW completed Schedule Followup Mk davila MD in 3 weeks completed EKG Mk jc MD completed SNOMED-CT: 579692258001798 Current Medications Documented Mk Alejandra MD completed ICM Interrogation, Remote (Prof) Juno Foley MD INTERROGATION EVAL REMOTE </30 D CV MNTR SYS completed ICM Interrogation, Remote (Tech) Juno Foley MD INTERROGATION EVAL REMOTE </30 D TECH REVIEW completed Schedule ICD Check Edin Bushnell ck DO completed Schedule Followup Edin Glascoc k DO 6 months completed EKG Edin Lorenzanacock DO completed SNOMED-CT: 266353343581825 Current Medications Documented Edin Lorenzanacock DO completed ICM Interrogation, Remote (Prof) Juno Foley MD INTERROGATION EVAL REMOTE </30 D CV MNTR SYS completed ICM Interrogation, Remote (Tech) Juno Foley MD INTERROGATION EVAL REMOTE </30 D TECH REVIEW completed SNOMED-CT: 29564463 Physical Exam, Performed: Pulse Exam of Foot Juno Foley MD completed SNOMED-CT: 881515005101391 Current Medications Documented Juno Foley MD completed EKG Mk jc MD completed SNOMED-CT: 809485741353968 Current Medications Documented Mk Alejandra MD completed EKG Mk jc MD completed SNOMED-CT: 609302400940452 Current Medications Documented Mk Alejandra MD completed Schedule Followup Mk davila MD 3 months completed SNOMED-CT: 661577192106565 Current Medications Documented Mk Alejandra MD completed EKG Mk jc MD completed Loop Recorder Interrogation, Remote Juno Foley MD INTERROGATION EVALUATION REMOTE </30 D ILR SYS completed ICM Interrogation, Remote (Tech) Juno Foley MD INTERROGATION EVAL REMOTE </30 D TECH REVIEW completed EKG Mk jc MD completed SNOMED-CT: 197192119308583 Current Medications Documented Mk Alejandra MD completed Protime Juno Foley MD completed Protime Juno Foley MD completed SNOMED-CT: 16311117 Physical Exam, Performed: Pulse Exam of Foot Juno Foley MD completed SNOMED-CT: 841603236761512 Current Medications Documented Juno Foley MD completed EKG Mk jc MD completed SNOMED-CT: 916420845037460 Current Medications Documented Mk Alejandra MD completed SNOMED-CT: 63991713 Physical Exam, Performed: Pulse Exam of Foot Juno Foley MD completed SNOMED-CT: 290146907343121 Current Medications Documented Juno Foley MD completed Stress EKG Emmy Pham MD completed Regadenoson, 4 units Juno Foley MD completed Cardiolite, 2 units Juno Foley MD completed SPECT Images Emmy Pham MD complet ed EKG Juno Foley MD completed SNOMED-CT: 946303254441033 Current Medications Documented Juno Foley MD completed
--- OUTSIDE RECORDS SUMMARY | 2025-04-05 13:46 | XMS_ITS | Continuity of Care Document ---
Author Organization [facility] Address [address] [place] [address] [address] [place] [address] Phone Care Team Providers Care Front End Driver Name Role Phone Jessica Reece Unavailable Unavailable Procedures Procedure Date Office/outpatient Visit, Est Advance Directives Directive Yes / No Effective Date File Name No Information Encounters Encounter Description Practice Location Reason(s) For Visit Diagnoses Date Provider Providers Copied on Encounter Office/outpat ient Visit, Est [facility], [address] [place] [address] [address], [place], [place], [id number], [place] tel:[phone] [facility] No Information 8-201 0 Shanell Lopez. [address] , [address], [place], [address], [place]. tel:[phone] Family History Family Member Type Diagnosis Age At Onset No Information Payers Payer name Insurance type Covered republican ID Authoriza tion(s) No Information Social History [...]
--- OUTSIDE RECORDS SUMMARY | 2025-04-05 13:46 | XMS_ITS | Clinical Summary ---
Author Organization [facility] Address [address] [place] [address] Care Team Providers Care Brake Repair Mechanic Name Role Phone Duglas Collado MD Primary Care Provider Source Comments [facility],non-[facility] Affiliates and Associated Physician Practices is amultiple site organization consisting of ambulatory clinics and hospital sitesin [place], [place], [place] and [place]. This disclosure is being madepursuant to the Care Everywhere program and may not contain all information available regarding this patient. Last updated 18.[facility] Allergies Active Allergy Reactions Criticality Noted Date Comments Codeine Nausea and/or Vomiting,Vomiting Medium 05/27 Meperidine Nausea and/or Vomiting,Vomiting Medium 05/27 Medications * Be aware that medications may not be up to date on this document. Alwaysverify current medications with the patient. loratadine (CLARITIN) 10 MG tablet Take 10 mg by mouth once daily 9 Active vitamin D, ergocalciferol, (DRISDOL) 1.25 MG (73095 UT) capsule Take 50,000 Units by mouth [...] on file Legal Sex Female 7:00 PM URINALYSIS TECHNICIAN Gender Identity Not on file Sexual Orientation Not on file Last Filed Vital Signs Vital Sign Reading Time Taken Comments Blood Pressure 110/68 10/28/2019 2:58 PM URINALYSIS TECHNICIAN Pulse 77 10/28/2019 2:58 PM URINALYSIS TECHNICIAN Temperature 36.7 C (98.1 F) 10/28/2019 2:58 PM URINALYSIS TECHNICIAN Respiratory Rate 18 10/28/2019 2:58 PM URINALYSIS TECHNICIAN Oxygen Saturation 96% 10/28/2019 2:58 PM URINALYSIS TECHNICIAN Inhaled Oxygen Concentration - - Weight 87.2 kg (192 lb 4.8 oz) 10/28/2019 2:58 P M URINALYSIS TECHNICIAN Height 165.1 cm (5' 5) 10/28/2019 2:58 PM URINALYSIS TECHNICIAN Body Mass Index 32 10/28/2019 2:58 PM URINALYSIS TECHNICIAN Plan of Treatment Health Maintenance Due Date [...] ID:Not on file (Home) Address: [address] [place] [address] Payer ID:Not on file Group ID:Not on file Type:Self Pay Address: [place], [place] * Guarantor: KATHERYN PHILLIPS Account Type Relation to Patient Date of Phone Billing Address Personal/Family [address] [place] [address] MEDICARE [employer] Member Subscriber Plan / Payer (Ef fective for All Dates) Name:Katheryn Phillips Member ID:Not on file Relation to Subscriber:Self Name:Katheryn Phillips Subscriber ID:Not on file Payer ID:[id number] (NAIC) Group ID:[id number] Type:Commercial Address: [address] * Guarantor: KATHERYN PHILLIPS Account Type Relation to Patient Date of Phone Billing Address Personal/Family [address] [address] MEDICARE [employer] Member Subscriber Plan / Payer (Ef fective for All Dates) Name:Katheryn Phillips Member ID:Not on file Relation to Subscriber:Self Name:Katheryn Phillips Subscriber ID:Not on file Payer ID:[id number] (NAIC) Group ID:[id number] Type:Commercial Address: [address] * Guarantor: KATHERYN PHILLIPS Account Type Relation to Patient Date of Phone Billing Address Personal/Family [address] [place] [address] MEDICARE [employer] Care Teams Brake Repair Mechanic Relationship Specialty Start Date End Date Duglas Collado MD [address] [address] PCP - General Internal Medicine 07/16/19
== END 2025-04-05 12:55 | disposition home or self-care (01) ==
PROVIDERS: PCP Internal Medicine; Visit Provider Surgery
DX: R92.8 Other abnormal and inconclusive findings on diagnostic imaging of breast (principal); N63.15 Unspecified lump in the right breast, overlapping quadrants
CPT/HCPCS: 76642

== ENCOUNTER 2025-04-28 07:17 | Outpatient (CLI) | payer MEDICARE, SELFPAY ==
--- NOTE | ~2025-04-28 | MMUS_ITS ---
EXAMINATION: US breast biopsy RT w image, MM post biopsy diagnostic RT DATE: 04/28/2025 08:36 (accession [id number]), 04/28/2025 08:35 (accession [id number]) INDICATION: BI-RADS 4 TECHNIQUE: The procedure including the risks, benefits, and alternatives was discussed with the patie nt. Risks discussed included bleeding and infection. The patient understood the risks and agreed to proceed. The skin overlying the right anterior chest wall was prepped and draped in usual sterile fashion. An esthetic was administered with 1% lidocaine subcutaneously, approximately 10 cc. Limited ultrasound examination of the right breast was then again performed. At the 12:00 position of the right breast approximately 8 cm from the nipple is an well circumscribed anechoic avascular focus measuring 4.8 x 3.9 x 3.2 mm. A 13G introducer was placed using ultrasound guidance into the abnormality at the 12:00 position of the right breast, and the inner needle removed . A 14-gauge biopsy device was then used to obtain 2 biopsy specimens under continuous sonographic guid ance. The biopsy device was then removed, and through the introducer a butterfly marker was placed. Of note, during the first pass, the abnormality decompressed immediately, consistent with a simple cy st. Given the patient's significant history, a marker was placed. The entry site was cleaned and dressed with Steri-Strips. There were no immediate complications. Post biopsy mammography was then performed, although given the far posterior location of the marker w as not able to be visualized with mammography. Adequate visualization with ultrasound was performed. IMPRESSION: 1. Technically successful ultrasound-guided core biopsy of the right breast, consistent with a simple cyst, with postprocedure mammogram. Pathology pending Reviewed, dictated and finalized at location [] IMPRESSION: 1. Technically successful ultrasound-guided core biopsy of the right breast, co nsistent with a simple cyst, with postprocedure mammogram. Pathology pending
--- OUTSIDE RECORDS SUMMARY | 2025-04-28 07:20 | XMS_ITS | Clinical Summary ---
Author Organization [facility] [employer] Address [address] [place] [address] Care Team Providers Care Warp Clamper Name Role Phone Duglas Collado MD Primary Care Provider Source Comments [facility],non-[facility] Affiliates and Associated Physician Practices is amultiple site organization consisting of ambulatory clinics and hospital sitesin [place], [place], [place] and [place]. This disclosure is being madepursuant to the Care Everywhere program and may not contain all information available regarding this patient. Last updated 18.[facility] [employer] Allergies Active Allergy Reactions Criticality Noted Date Comments Codeine Nausea and/or Vomiting,Vomiting Medium 05/27 Meperidine Nausea and/or Vomiting,Vomiting Medium 05/27 Medications * Be aware that medications may not be up to date on this document. Alwaysverify current medications with the patient. loratadine (CLARITIN) 10 MG tablet Take 10 mg by mouth once daily 9 Active vitamin D, ergocalciferol, (DRISDOL) 1.25 MG (65264 UT) capsule Take 50,000 Units by mouth [...] on file Legal Sex Female 7:00 PM WICK AND BASE ASSEMBLER Gender Identity Not on file Sexual Orientation Not on file Last Filed Vital Signs Vital Sign Reading Time Taken Comments Blood Pressure 110/68 10/28/2019 2:58 PM WICK AND BASE ASSEMBLER Pulse 77 10/28/2019 2:58 PM WICK AND BASE ASSEMBLER Temperature 36.7 C (98.1 F) 10/28/2019 2:58 PM WICK AND BASE ASSEMBLER Respiratory Rate 18 10/28/2019 2:58 PM WICK AND BASE ASSEMBLER Oxygen Saturation 96% 10/28/2019 2:58 PM WICK AND BASE ASSEMBLER Inhaled Oxygen Concentration - - Weight 87.2 kg (192 lb 4.8 oz) 10/28/2019 2:58 P M WICK AND BASE ASSEMBLER Height 165.1 cm (5' 5) 10/28/2019 2:58 PM WICK AND BASE ASSEMBLER Body Mass Index 32 10/28/2019 2:58 PM WICK AND BASE ASSEMBLER Plan of Treatment Health Maintenance Due Date [...] ID:Not on file (Home) Address: [address] [place] [address] Payer ID:Not on file Group ID:Not on file Type:Self Pay Address: [place], [place] * Guarantor: KATHERYN PHILLIPS Account Type Relation to Patient Date of Phone Billing Address Personal/Family [address] [place] [address] MEDICARE [employer] Member Subscriber Plan / Payer (Ef fective for All Dates) Name:Katheryn Phillips Member ID:Not on file Relation to Subscriber:Self Name:Katheryn Phillips Subscriber ID:Not on file Payer ID:[id number] (NAIC) Group ID:[id number] Type:Commercial Address: [address] * Guarantor: KATHERYN PHILLIPS Account Type Relation to Patient Date of Phone Billing Address Personal/Family [address] [address] MEDICARE A[employer] Member Subscriber Plan / Payer (Ef fective for All Dates) Name:Katheryn Phillips Member ID:Not on file Relation to Subscriber:Self Name:Katheryn Phillips Subscriber ID:Not on file Payer ID:[id number] (NAIC) Group ID:[id number] Type:Commercial Address: [address] * Guarantor: KATHERYN PHILLIPS Account Type Relation to Patient Date of Phone Billing Address Personal/Family [address] [place] [address] MEDICARE [employer] Care Teams Warp Clamper Relationship Specialty Start Date End Date Duglas Collado MD [address] [address] PCP - General Internal Medicine 07/16/19
--- OUTSIDE RECORDS SUMMARY | 2025-04-28 07:20 | XMS_ITS | Data Portability ---
Author Organization [employer], Main Office Address [address] [place] [address] Care Team Providers Care Digital Asset Coordinator Name Role Phone BRODY COLLADO Primary Care Provider [phone] BRODY COLLADO Referring Provider Assessment Encounter Date [...] This note is dictated and transcribed by [employer] Software. Floral Clerk variances may occur. Despite proofreading, typographical errors may occur. [email or web address] Not available 06/03/2023 10:31:35 Plan of Treatment Reminders Order Date Submit Date Provider Last Modified By Organization Details Last Modified Time Details Appointments None recorded. Lab lipid panel, serum 2022 023 [email or web address] 6 [facility] (Lab), [address] [place], [address], 4 13:54:50 CBC w/ auto diff [address] (Lab), [address] [place], [address], 4 13:54:50 TSH, serum or plasma [address] (Lab), [address] [place], [address], 4 13:54:50 T4, free, serum [address] (Lab), [address] [place], [address], 4 13:54:50 CMP, serum or plasma [address] (Lab), [address] [place], [address], 4 13:54:51 vitamin D, 25-hydroxy, total, serum [address] (Lab), [address] [place], [address], 4 17:14:48 glycohemogl obin, total, blood [address] (Lab), [address] [place], [address], 4 13:54:49 microalbumi n, urine [address] (Lab), [address] [place], [address], 4 13:54:50 lipid panel, serum 2022 023 [facility] (Lab), [address] [place], [address], 3 10:23:37 CBC w/ auto diff 2022 023 [facility] (Lab), [address] [place], [address], 3 10:29:24 TSH, serum or plasma 2022 023 [facility] (Lab), [address] [place], [address], 3 11:00:11 T4, free, serum 2022 023 [facility] (Lab), [address] [place], [address], 3 10:32:56 CMP, serum or plasma 2022 023 [facility] (Lab), [address] [place], [address], 3 10:23:48 glycohemogl obin, total, blood 2022 023 [facility] (Lab), [address] [place], [address], 3 12:21:03 microalbumi n, urine 2022 023 [facility] (Lab), [address] [place], [address], 3 10:27:[address] referral 2022 023 Not available 3 12:14:23 nephrologis t referral 2022 023 lili Benavides MD, [address], [address], [place], [address], 4 17:05:18 hematologis t referral 2022 023 [email or web address] Willis MD, [address], [place], [address], 3 12:14:51 cardiologis t referral 2022 023 [email or web address], [address], [address], [place], [address], 3 12:16:17 hand surgeon referral 2022 023 [email or web address] Calderon MD, [address] [place], [address], 3 12:15:45 neurologist referral 2022 023 [email or web address] Hernandez MD, [address] [facility] , [address], [place], [address], 3 12:15:26 hse coordinator referral 2022 023 [email or web address] Massimo Porter DPDouglas, [address], [address], [place], [address], 4 17:05:19 general surgeon referral 2022 023 rio Waddell MD, [address], [address], [place], [address], 3 12:16:47 neurologist referral 2022 023 rio Hernandez MD, 4 [facility] , [address], [place], [address], 3 11:01:11 nephrologis t referral 2022 023 rio Benavides MD, [address], [address], [place], [address], 3 17:44:[address] referral 2022 023 [email or web address] Not available 3 18:42:45 hematologis t referral 2022 023 [email or web address] Brandon Willis MD, [address], [place], [address], 3 11:00:29 hse coordinator referral 2022 023 [email or web address] Massimo Porter DPM, [address] [facility], [address], [place], [address], 3 17:43:46 hand surgeon referral 2022 023 [email or web address] Calderon MD, [address] [place], [address], 3 10:03:10 Procedures None recorded. Surgeries None recorded. Imaging MAMMO, screening, digital, bilateral 2022 023 [facility] (Radiology), [address] [place], [address], 4 17:05:28 DEXA, axial skeleton 2022 023 [email or web address] [facility] (Radiology), [address] [place], [address], 4 17:14:35 MAMMO, screening, digital, bilateral 2022 023 [email or web address] ([facility]), [address] [place], [address], 3 12:09:29 Medication Orders None recorded. Patient TargetsNo targets recorded. Patient Instructions Encounter Date Encounter Id Patient Instructions Last Modified By Organization Details Last Modified Time 01/16/2023 [id number] diabetic eye exam* Not availa ble 07/24/2023 10:21:58 04/24/2023 [id number] dementia rating scale-2* miguel 2 Not available 04/24/2023 15:20:27 alcohol misuse* sheriea 2 Not available 04/24/2023 15:20:27 depression screening* sheriea 2 Not available 04/24/2023 15:20:27 Timed Up and Go test (TUG)* sheriea 2 Not available 04/24/2023 15:20:26 multi-dimensiona l health assessment questionnaire* miguel 2 Not available 04/24/2023 15:20:26 Personalized a lt Plan and Screening Recommendations Advance Directives - Do you have one? No Not interested at this time Advance Directives - Do we have your advance directive on file in your health record? Primary Prevention/Interven tion (prevents or decreases the chance of common diseases from occurring) Smoking Risk: Non Smoker Alcohol Misuse Screening: Negative Weight: Overweight try to lose 10% of your body weight Physical activity: Need more exercise/physical activity Nutrition: Average Eat heart healthy diet Fall Risk (screened [...] Screening Last Performed: Colon Cancer Screening: Colonoscopy due 06/2023 Date Screening Last Performed: Eye Disease Screening: Your next exam in: goes yearly Dementia Risk: Low I have no recommendations Depression Screening: Negative Active diagnosis, Continue current treatment plan [email or web address] Not available 04/24/2023 14:37:41 Reason for Referral Legal Financial Specialist Referral for O bstructive sleep apnea syndrome Referring Physician: Jessica Peña, Encounter Date: 01/16/2023 Floor Refinisher 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 Referring Physician: Jessica Peña, Encounter Date: 01/16/2023 Head Up Operator Referral for Type 2 diabetes mellitus without complication Referring Physician: Jessica Peña, Encounter Date: 01/16/2023 Referring Physician: Jessica Peña, Encounter Date: 01/16/2023 Neurologist Referral for Tra nsient cerebral ischemia Referring Physician: Jessica Peña, Encounter Date: 01/16/2023 Hand Surgeon Referral for Pa in of left wrist Referring Physician: Jessica Peña, Encounter Date: 01/16/2023 Legal Financial Specialist Referral for O bstructive sleep apnea syndrome Referring Physician: Jessica Peña, Encounter Date: 04/24/2023 Floor Refinisher 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 Referring Physician: Jessica Peña, Encounter Date: 04/24/2023 Head Up Operator Referral for Type 2 diabetes mellitus without complication Referring Physician: Jessica Peña, Encounter Date: 04/24/2023 Referring Physician: Jessica Peña, Encounter Date: 04/24/2023 Neurologist Referral for Tra nsient cerebral ischemia Referring Physician: Jessica Peña, Encounter Date: 04/24/2023 Hand Surgeon Referral for Pa in of left wrist Referring Physician: Jessica Peña, Encounter Date: 04/24/2023 Equipment Driver Referral for Ne ar syncope Referring Physician: Jessica Peña, Encounter Date: 04/24/2023 General Surgeon Referral for Skin lesion Referring Physician: Brody Collado, Internal Medicine, Encounter Date: 04/24/2023 Results Created Date Observation Date Name Description Value Unit Range Abnormal Flag Note LastModifiedBy Organization Detail LastModifiedTime 08/27/20 22 08/27/2022 FOLAT E, SERUM /PLAS MA folate 5.98 NG/mL 2.76-2 0.0 Not Available [facility] (Lab) [address] [place], [address], 08/27/2022 18:44:29 08/27/20 22 08/27/2022 VITAM IN B12 (MADDY DOMENICA ) vb12 476 pg/mL 239-93 1 Not Available [facility] (Lab) [address] [place], [address], 08/27/2022 18:44:26 08/27/20 22 08/27/2022 MICRO ALBUM IN RANDO M URINE microalbumin , urine <6.0 mg/L 0.0-16 .6 Not Available [facility] (Lab) [address] [place], [address], 08/27/2022 18:09:51 08/27/20 22 08/27/2022 HEMOG LOBIN A1C HA1C 5.5 % 4.0-6. 0 Diabe harman Scree roma Crite adi: <5.7% Consi stent with absen ce of diabe harman 5.7-6 .4% Consi stent with incre ased risk for diabe harman (pred iabet es) >OR=6 .5% Consi stent with diabe harman REFER ENCE: Diabe harman Care 2016, 39(Arnold ppl.1 ):s13 -s22 Not Available [facility] (Lab) [address] [place], [address], 08/27/2022 15:07:49 08/27/20 22 08/27/2022 TSH thyroid-stim ulating hormone 1.980 uIU/m L 0.465- 4.680 Not Available [facility] (Lab) [address] [place], [address], 08/27/2022 13:44:58 08/27/20 22 08/27/2022 T4 FREE free T4 1.19 NG/dL 0.78-2 .19 Not Available [facility] (Lab) [address] [place], [address], 08/27/2022 13:31:42 08/27/20 22 08/27/2022 COMPR EHENS JONATHAN METAB OLIC PANEL sodium 138 mmol/ L 137-14 5 Not Available [facility] (Lab) [address] [place], [address], 08/27/2022 13:22:36 08/27/20 22 08/27/2022 COMPR EHENS JONATHAN METAB OLIC PANEL potassium 4.4 mmol/ L 3.5-5. 1 Not Available [facility] (Lab) [address] [place], [address], 08/27/2022 13:22:36 08/27/20 22 08/27/2022 COMPR EHENS JONATHAN METAB OLIC PANEL chloride 104 mmol/ L 98-107 Not Available [facility] (Lab) [address] [place], [address], 08/27/2022 13:22:36 08/27/20 22 08/27/2022 COMPR EHENS JONATHAN METAB OLIC PANEL carbon dioxide 31 mmol/ L 22-30 high Not Available [facility] (Lab) [address] [place], [address], 08/27/2022 13:22:36 08/27/20 22 08/27/2022 COMPR EHENS JONATHAN METAB OLIC PANEL anion gap 7.4 mmol/ L 14-22 low Not Available [facility] (Lab) [address] [place], [address], 08/27/2022 13:22:36 08/27/20 22 08/27/2022 COMPR EHENS JONATHAN METAB OLIC PANEL glucose 93 mg/dL 70-99 Not Available [facility] (Lab) [address] [place], [address], 08/27/2022 13:22:36 08/27/20 22 08/27/2022 COMPR EHENS JONATHAN METAB OLIC PANEL BUN 17 mg/dL 8-19 Not Available [facility] (Lab) [address] [place], [address], 08/27/2022 13:22:36 08/27/20 22 08/27/2022 COMPR EHENS JONATHAN METAB OLIC PANEL creatinine 0.97 mg/dL 0.66-1 .25 Not Available [facility] (Lab) [address] [place], [address], 08/27/2022 13:22:36 08/27/20 22 08/27/2022 COMPR EHENS JONATHAN METAB OLIC PANEL GFR 57 Refer ence Range : [place] ge GFR Healt hy Adult : >60 [...] calcu lator is avail able on the [facility] websi te: https ://rigoberto aguila.ulysses benz/pr ofess ional s/kdo qi/gf r_cal culat or Not Available [facility] (Lab) [address] [place], [address], 08/27/2022 13:22:36 08/27/20 22 08/27/2022 COMPR EHENS JONATHAN METAB OLIC PANEL alkaline phosphatase 63 U/L 38-126 Not Available [facility] (Lab) [address] [place], [address], 08/27/2022 13:22:36 08/27/20 22 08/27/2022 COMPR EHENS JONATHAN METAB OLIC PANEL alanine aminotransfe rase 5 U/L 0-35 Not Available [facility] (Lab) [address] [place], [address], 08/27/2022 13:22:36 08/27/20 22 08/27/2022 COMPR EHENS JONATHAN METAB OLIC PANEL aspartate aminotransfe rase 22 U/L 15-37 Not Available [facility] (Lab) [address] [place], [address], 08/27/2022 13:22:36 08/27/20 22 08/27/2022 COMPR EHENS JONATHAN METAB OLIC PANEL bilirubin, total 0.60 mg/dL 0.20-1 .30 Not Available [facility] (Lab) [address] [place], [address], 08/27/2022 13:22:36 08/27/20 22 08/27/2022 COMPR EHENS JONATHAN METAB OLIC PANEL calcium 9.8 mg/dL 8.4-10 .2 Not Available [facility] (Lab) [address] [place], [address], 08/27/2022 13:22:36 08/27/20 22 08/27/2022 COMPR EHENS JONATHAN METAB OLIC PANEL total protein 6.4 g/dL 6.3-8. 2 Not Available [facility] (Lab) [address] [place], [address], 08/27/2022 13:22:36 08/27/20 22 08/27/2022 COMPR EHENS JONATHAN METAB OLIC PANEL albumin 4.1 g/dL 3.0-4. 4 Not Available [facility] (Lab) [address] [place], [address], 08/27/2022 13:22:36 08/27/20 22 08/27/2022 COMPR EHENS JONATHAN METAB OLIC PANEL globulin 2.3 g/dL 2.6-4. 2 low Not Available [facility] (Lab) [address] [place], [address], 08/27/2022 13:22:36 08/27/20 22 08/27/2022 COMPR EHENS JONATHAN METAB OLIC PANEL A/G ratio 1.8 ratio 1.0-2. 0 Not Available [facility] (Lab) [address] [place], [address], 08/27/2022 13:22:36 08/27/20 22 08/27/2022 LIPID PANEL cholesterol 271 mg/dL 140-19 9 high NIH OSWALDO NSUS RECOM MENDA TION FOR PAWAN STERO L: ADULT CHILD LOW RISK: <200 <170 BORDE RLINE : <200- 239 ----- HIGH RISK: >240 >200 Not Available [facility] (Lab) [address] [place], [address], 08/27/2022 13:21:09 08/27/20 22 08/27/2022 LIPID PANEL triglyceride s 237 mg/dL 0-150 high NIH OSWALDO NSUS REPOR T RECOM MENDA TION FOR TRIGL YCERI ZORADIA: ADULT CHILD LOW RISK: <150 ----- BODER LINE: 150-1 99 ----- HIGH RISK: >200 ----- Not Available [facility] (Lab) [address] [place], [address], 08/27/2022 13:21:09 08/27/20 22 08/27/2022 LIPID PANEL HDL cholesterol 55 mg/dL 40- Not Available [facility] (Lab) [address] [place], [address], 08/27/2022 13:21:09 08/27/20 22 08/27/2022 LIPID PANEL [...] BE REPOR RUI. Not Available [facility] (Lab) [address] [place], [address], 08/27/2022 13:21:09 08/27/20 22 08/27/2022 CBC/C OMPLE TE BLD COUNT W/DIF F white blood cells 7.2 x10'3 /uL 4.2-10 .8 Not Available [facility] (Lab) [address] [place], [address], 08/27/2022 13:09:09 08/27/20 22 08/27/2022 CBC/C OMPLE TE BLD COUNT W/DIF F red blood cells 4.43 x10'6 /uL 3.80-5 .20 Not Available [facility] (Lab) [address] [place], [address], 08/27/2022 13:09:09 08/27/20 22 08/27/2022 CBC/C OMPLE TE BLD COUNT W/DIF F hemoglobin 13.8 g/dL 12.0-1 5.6 Not Available [facility] (Lab) [address] [place], [address], 08/27/2022 13:09:09 08/27/20 22 08/27/2022 CBC/C OMPLE TE BLD COUNT W/DIF F hematocrit 42.9 % 35.7-4 5.7 Not Available [facility] (Lab) [address] [place], [address], 08/27/2022 13:09:09 08/27/20 22 08/27/2022 CBC/C OMPLE TE BLD COUNT W/DIF F mean red cell volume 96.8 fL 82.0-9 9.0 Not Available [facility] (Lab) [address] [place], [address], 08/27/2022 13:09:09 08/27/20 22 08/27/2022 CBC/C OMPLE TE BLD COUNT W/DIF F mean red cell hemoglobin 31.2 pg 27.0-3 3.0 Not Available [facility] (Lab) [address] [place], [address], 08/27/2022 13:09:09 08/27/20 22 08/27/2022 CBC/C OMPLE TE BLD COUNT W/DIF F mean RBC HGB concentratio n 32.2 g/dL 31.0-3 6.0 Not Available [facility] (Lab) [address] [place], [address], 08/27/2022 13:09:09 08/27/20 22 08/27/2022 CBC/C OMPLE TE BLD COUNT W/DIF F red cell distribution width 14.7 % 11.8-1 5.5 Not Available [facility] (Lab) [address] [place], [address], 08/27/2022 13:09:09 08/27/20 22 08/27/2022 CBC/C OMPLE TE BLD COUNT W/DIF F platelets 151 x10'3 /uL 150-40 0 Not Available [facility] (Lab) [address] [place] [place], [address], 08/27/2022 13:09:09 08/27/20 22 08/27/2022 CBC/C OMPLE TE BLD COUNT W/DIF F mean platelet volume 13.0 fL 9.0-12 .4 high Not Available [facility] (Lab) [address] [place], [address], 08/27/2022 13:09:09 08/27/20 22 08/27/2022 CBC/C OMPLE TE BLD COUNT W/DIF F neutrophils 56.4 % 39.0-7 2.0 Not Available [facility] (Lab) [address] [place], [address], 08/27/2022 13:09:09 08/27/20 22 08/27/2022 CBC/C OMPLE TE BLD COUNT W/DIF F lymphocytes 24.8 % 16.0-4 7.0 Not Available [facility] (Lab) [address] [place], [address], 08/27/2022 13:09:09 08/27/20 22 08/27/2022 CBC/C OMPLE TE BLD COUNT W/DIF F monocytes 12.6 % 5.0-12 .0 high Not Available [facility] (Lab) [address] [place], [address], 08/27/2022 13:09:09 08/27/20 22 08/27/2022 CBC/C OMPLE TE BLD COUNT W/DIF F eosinophils 4.3 % 1.0-7. 0 Not Available [facility] (Lab) [address] [place], [address], 08/27/2022 13:09:09 08/27/20 22 08/27/2022 CBC/C OMPLE TE BLD COUNT W/DIF F basophils 1.5 % 0.0-2. 0 Not Available [facility] (Lab) [address] [place], [address], 08/27/2022 13:09:09 08/27/20 22 08/27/2022 CBC/C OMPLE TE BLD COUNT W/DIF F immature granulocytes 0.4 % 0.00-0 .50 Not Available [facility] (Lab) [address] [place], [address], 08/27/2022 13:09:09 08/27/20 22 08/27/2022 CBC/C OMPLE TE BLD COUNT W/DIF F neutrophils, absolute count 4.07 x10'3 /uL 1.5-8. 0 Not Available [facility] (Lab) [address] [place], [address], 08/27/2022 13:09:09 08/27/20 22 08/27/2022 CBC/C OMPLE TE BLD COUNT W/DIF F lymphocytes, absolute count 1.79 x10'3 /uL 1.07-3 .43 Not Available [facility] (Lab) [address] [place], [address], 08/27/2022 13:09:09 08/27/20 22 08/27/2022 CBC/C OMPLE TE BLD COUNT W/DIF F monocytes, absolute count 0.91 x10'3 /uL 0.29-0 .99 Not Available [facility] (Lab) [address] [place], [address], 08/27/2022 13:09:09 08/27/20 22 08/27/2022 CBC/C OMPLE TE BLD COUNT W/DIF F eosinophils, absolute count 0.31 x10'3 /uL 0.02-0 .53 Not Available [facility] (Lab) [address] [place], [address], 08/27/2022 13:09:09 08/27/20 22 08/27/2022 CBC/C OMPLE TE BLD COUNT W/DIF F basophils, absolute count 0.11 x10'3 /uL 0.01-0 .08 high Not Available [facility] (Lab) [address] [place], [address], 08/27/2022 13:09:09 08/27/20 22 08/27/2022 CBC/C OMPLE TE BLD COUNT W/DIF F immature granulocytes ,absolute 0.03 x10'3 /uL 0.00-0 .05 Not Available [facility] (Lab) [address] [place], [address], 08/27/2022 13:09:09 08/27/20 22 08/27/2022 CBC/C OMPLE TE BLD COUNT W/DIF F nucleated red blood cells 0.0 % -0 Not Available [facility] (Lab) [address] [place], [address], 08/27/2022 13:09:09 08/27/2008/27/2022 CBC/C OMPLE TE BLD COUNT W/DIF F NRBC# 0.00 x10'3 /uL Not Available [facility] (Lab) [address] [place], [address], 08/27/2022 13:09:09 01/16/20 23 01/15/2023 CBC/C OMPLE TE BLD COUNT W/DIF F white blood cells 9.4 x10'3 /uL 4.2-10 .8 Not Available [facility] (Lab) [address] [place], [address], 01/15/2023 12:06:22 01/16/20 23 01/15/2023 CBC/C OMPLE TE BLD COUNT W/DIF F red blood cells 4.46 x10'6 /uL 3.80-5 .20 Not Available [facility] (Lab) [address] [place], [address], 01/15/2023 12:06:22 01/16/20 23 01/15/2023 CBC/C OMPLE TE BLD COUNT W/DIF F hemoglobin 13.7 g/dL 12.0-1 5.6 Not Available [facility] (Lab) [address] [place], [address], 01/15/2023 12:06:22 01/16/20 23 01/15/2023 CBC/C OMPLE TE BLD COUNT W/DIF F hematocrit 43.4 % 35.7-4 5.7 Not Available [facility] (Lab) [address] [place], [address], 01/15/2023 12:06:22 01/16/20 23 01/15/2023 CBC/C OMPLE TE BLD COUNT W/DIF F mean red cell volume 97.3 fL 82.0-9 9.0 Not Available [facility] (Lab) [address] [place], [address], 01/15/2023 12:06:22 01/16/20 23 01/15/2023 CBC/C OMPLE TE BLD COUNT W/DIF F mean red cell hemoglobin 30.7 pg 27.0-3 3.0 Not Available [facility] (Lab) [address] [place], [address], 01/15/2023 12:06:22 01/16/20 23 01/15/2023 CBC/C OMPLE TE BLD COUNT W/DIF F mean RBC HGB concentratio n 31.6 g/dL 31.0-3 6.0 Not Available [facility] (Lab) [address] [place], [address], 01/15/2023 12:06:22 01/16/20 23 01/15/2023 CBC/C OMPLE TE BLD COUNT W/DIF F red cell distribution width 13.8 % 11.8-1 5.5 Not Available [facility] (Lab) [address] [place], [address], 01/15/2023 12:06:22 01/16/20 23 01/15/2023 CBC/C OMPLE TE BLD COUNT W/DIF F platelets 147 x10'3 /uL 150-40 0 low Not Available [facility] (Lab) [address] [place], [address], 01/15/2023 12:06:22 01/16/20 23 01/15/2023 CBC/C OMPLE TE BLD COUNT W/DIF F mean platelet volume 12.2 fL 9.0-12 .4 Not Available [facility] (Lab) [address] [place], [address], 01/15/2023 12:06:22 01/16/20 23 01/15/2023 CBC/C OMPLE TE BLD COUNT W/DIF F neutrophils 65.6 % 39.0-7 2.0 Not Available [facility] (Lab) [address] [place], [address], 01/15/2023 12:06:22 01/16/20 23 01/15/2023 CBC/C OMPLE TE BLD COUNT W/DIF F lymphocytes 17.1 % 16.0-4 7.0 Not Available [facility] (Lab) [address] [place], [address], 01/15/2023 12:06:22 01/16/20 23 01/15/2023 CBC/C OMPLE TE BLD COUNT W/DIF F monocytes 12.3 % 5.0-12 .0 high Not Available [facility] (Lab) [address] [place], [address], 01/15/2023 12:06:22 01/16/20 23 01/15/2023 CBC/C OMPLE TE BLD COUNT W/DIF F eosinophils 3.8 % 1.0-7. 0 Not Available [facility] (Lab) [address] [place], [address], 01/15/2023 12:06:22 01/16/20 23 01/15/2023 CBC/C OMPLE TE BLD COUNT W/DIF F basophils 0.9 % 0.0-2. 0 Not Available [facility] (Lab) [address] [place], [address], 01/15/2023 12:06:22 01/16/20 23 01/15/2023 CBC/C OMPLE TE BLD COUNT W/DIF F immature granulocytes 0.3 % 0.00-0 .50 Not Available [facility] (Lab) [address] [place], [address], 01/15/2023 12:06:22 01/16/20 23 01/15/2023 CBC/C OMPLE TE BLD COUNT W/DIF F neutrophils, absolute count 6.15 x10'3 /uL 1.5-8. 0 Not Available [facility] (Lab) [address] [place], [address], 01/15/2023 12:06:22 01/16/20 23 01/15/2023 CBC/C OMPLE TE BLD COUNT W/DIF F lymphocytes, absolute count 1.60 x10'3 /uL 1.07-3 .43 Not Available [facility] (Lab) [address] [place], [address], 01/15/2023 12:06:22 01/16/20 23 01/15/2023 CBC/C OMPLE TE BLD COUNT W/DIF F monocytes, absolute count 1.15 x10'3 /uL 0.29-0 .99 high Not Available [facility] (Lab) [address] [place], [address], 01/15/2023 12:06:22 01/16/20 23 01/15/2023 CBC/C OMPLE TE BLD COUNT W/DIF F eosinophils, absolute count 0.36 x10'3 /uL 0.02-0 .53 Not Available [facility] (Lab) [address] [place], [address], 01/15/2023 12:06:22 01/16/20 23 01/15/2023 CBC/C OMPLE TE BLD COUNT W/DIF F basophils, absolute count 0.08 x10'3 /uL 0.01-0 .08 Not Available [facility] (Lab) [address] [place], [address], 01/15/2023 12:06:22 01/16/20 23 01/15/2023 CBC/C OMPLE TE BLD COUNT W/DIF F immature granulocytes ,absolute 0.03 x10'3 /uL 0.00-0 .05 Not Available [facility] (Lab) [address] [place], [address], 01/15/2023 12:06:22 01/16/20 23 01/15/2023 CBC/C OMPLE TE BLD COUNT W/DIF F nucleated red blood cells 0.0 % -0 Not Available [facility] (Lab) [address] [facility] [place], [address], 01/15/2023 12:06:22 01/16/20 23 01/15/2023 CBC/C OMPLE TE BLD COUNT W/DIF F NRBC# 0.00 x10'3 /uL Not Available [facility] (Lab) [address] [place], [address], 01/15/2023 12:06:22 01/16/20 23 01/15/2023 COMPR EHENS JONATHAN METAB OLIC PANEL sodium 140 mmol/ L 137-14 5 Not Available [facility] (Lab) [address] [place], [address], 01/15/2023 12:24:31 01/16/20 23 01/15/2023 COMPR EHENS JONATHAN METAB OLIC PANEL potassium 4.3 mmol/ L 3.5-5. 1 Not Available [facility] (Lab) [address] [place], [address], 01/15/2023 12:24:31 01/16/20 23 01/15/2023 COMPR EHENS JONATHAN METAB OLIC PANEL chloride 106 mmol/ L 98-107 Not Available [facility] (Lab) [address] [place], [address], 01/15/2023 12:24:31 01/16/20 23 01/15/2023 COMPR EHENS JONATHAN METAB OLIC PANEL carbon dioxide 27 mmol/ L 22-30 Not Available [facility] (Lab) [address] [place], [address], 01/15/2023 12:24:31 01/16/20 23 01/15/2023 COMPR EHENS JONATHAN METAB OLIC PANEL anion gap 11.3 mmol/ L 14-22 low Not Available [facility] (Lab) [address] [place], [address], 01/15/2023 12:24:31 01/16/20 23 01/15/2023 COMPR EHENS JONATHAN METAB OLIC PANEL glucose 112 mg/dL 70-99 high Not Available [facility] (Lab) [address] [place], [address], 01/15/2023 12:24:31 01/16/20 23 01/15/2023 COMPR EHENS JONATHAN METAB OLIC PANEL BUN 17 mg/dL 8-19 Not Available [facility] (Lab) [address] [place], [address], 01/15/2023 12:24:31 01/16/20 23 01/15/2023 COMPR EHENS JONATHAN METAB OLIC PANEL creatinine 0.99 mg/dL 0.66-1 .25 Not Available [facility] (Lab) [address] [place], [address], 01/15/2023 12:24:31 01/16/20 23 01/15/2023 COMPR EHENS JONATHAN METAB OLIC PANEL GFR 55 Refer ence Range : [place] ge GFR Healt hy Adult : >60 [...] calcu lator is avail able on the [facility] websi te: https :[email or web address] [email or web address] ann [email or web address] rg/pr ofess ional s/kdo qi/gf r_cal culat or Not Available [facility] (Lab) [address] [place], [address], 01/15/2023 12:24:31 01/16/20 23 01/15/2023 COMPR EHENS JONATHAN METAB OLIC PANEL alkaline phosphatase 72 U/L 38-126 Not Available [facility] (Lab) [address] [place], [address], 01/15/2023 12:24:31 01/16/20 23 01/15/2023 COMPR EHENS JONATHAN METAB OLIC PANEL alanine aminotransfe rase 12 U/L 0-35 Not Available [facility] (Lab) [address] [place], [address], 01/15/2023 12:24:31 01/16/20 23 01/15/2023 COMPR EHENS JONATHAN METAB OLIC PANEL aspartate aminotransfe rase 31 U/L 15-37 Not Available [facility] (Lab) [address] [place], [address], 01/15/2023 12:24:31 01/16/20 23 01/15/2023 COMPR EHENS JONATHAN METAB OLIC PANEL bilirubin, total 0.90 mg/dL 0.20-1 .30 Not Available [facility] (Lab) [address] [place], [address], 01/15/2023 12:24:31 01/16/20 23 01/15/2023 COMPR EHENS JONATHAN METAB OLIC PANEL calcium 9.8 mg/dL 8.4-10 .2 Not Available [facility] (Lab) [address] [place], [address], 01/15/2023 12:24:31 01/16/20 23 01/15/2023 COMPR EHENS JONATHAN METAB OLIC PANEL total protein 6.8 g/dL 6.3-8. 2 Not Available [facility] (Lab) [address] [place], [address], 01/15/2023 12:24:31 01/16/20 23 01/15/2023 COMPR EHENS JONATHAN METAB OLIC PANEL albumin 4.3 g/dL 3.0-4. 4 Not Available [facility] (Lab) [address] [place], [address], 01/15/2023 12:24:31 01/16/20 23 01/15/2023 COMPR EHENS JONATHAN METAB OLIC PANEL globulin 2.5 g/dL 2.6-4. 2 low Not Available [facility] (Lab) [address] [place], [address], 01/15/2023 12:24:31 01/16/20 23 01/15/2023 COMPR EHENS JONATHAN METAB OLIC PANEL A/G ratio 1.7 ratio 1.0-2. 0 Not Available [facility] (Lab) [address] [place], [address], 01/15/2023 12:24:31 01/16/20 23 01/15/2023 LIPID PANEL cholesterol 127 mg/dL 140-19 9 low NIH OSWALDO NSUS RECOM MENDA TION FOR PAWAN STERO L: ADULT CHILD LOW RISK: <200 <170 BORDE RLINE : <200- 239 ----- HIGH RISK: >240 >200 Not Available [facility] (Lab) [address] [place], [address], 01/15/2023 12:24:49 01/16/20 23 01/15/2023 LIPID PANEL triglyceride s 185 mg/dL 0-150 high NIH OSWALDO NSUS REPOR T RECOM MENDA TION FOR TRIGL YCERI ZORAIDA: ADULT CHILD LOW RISK: <150 ----- BODER LINE: 150-1 99 ----- HIGH RISK: >200 ----- Not Available [facility] (Lab) [address] [place], [address], 01/15/2023 12:24:49 01/16/20 23 01/15/2023 LIPID PANEL HDL cholesterol 57 mg/dL 40- Not Available [facility] (Lab) [address] [place], [address], 01/15/2023 12:24:49 01/16/20 23 01/15/2023 LIPID PANEL [...] BE REPOR RUI. Not Available [facility] (Lab) [address] [place], [address], 01/15/2023 12:24:49 01/16/20 23 01/15/2023 T4 FREE free T4 1.29 NG/dL 0.78-2 .19 Not Available [facility] (Lab) [address] [place], [address], 01/15/2023 12:31:42 01/16/20 23 01/15/2023 TSH thyroid-stim ulating hormone 0.677 uIU/m L 0.465- 4.680 Not Available [facility] (Lab) [address] [place], [address], 01/15/2023 12:39:04 01/16/20 23 01/15/2023 HEMOG LOBIN A1C HA1C 6.0 % 4.0-6. 0 Diabe harman Scree roma Crite adi: <5.7% Consi stent with absen ce of diabe harman 5.7-6 .4% Consi stent with incre ased risk for diabe harman (pred iabet es) >OR=6 .5% Consi stent with diabe harman REFER ENCE: Diabe harman Care 2016, 39(Arnold ppl.1 ):s13 -s22 Not Available [facility] (Lab) [address] [place], [address], 01/15/2023 13:11:47 01/16/20 23 01/15/2023 VITAM IN B12 (MADDY DOMENICA ) vb12 677 pg/mL 239-93 1 Not Available [facility] (Lab) [address] [place], [address], 01/15/2023 18:31:01 01/16/20 23 01/15/2023 FOLAT E, SERUM /PLAS MA folate 5.65 NG/mL 2.76-2 0.0 Not Available [facility] (Lab) [address] [place], [address], 01/15/2023 18:31:05 01/16/20 23 01/15/2023 MICRO ALBUM IN RANDO M URINE microalbumin , urine 36.5 mg/L 0.0-16 .6 high Not Available [facility] (Lab) [address] [place], [address], 01/15/2023 18:38:15 04/23/20 23 04/23/2023 LIPID PANEL cholesterol 123 mg/dL 140-19 9 low NIH OSWALDO NSUS RECOM MENDA TION FOR PAWAN STERO L: ADULT CHILD LOW RISK: <200 <170 BORDE RLINE : <200- 239 ----- HIGH RISK: >240 >200 Not Available [facility] (Lab) [address] [place], [address], 04/23/2023 10:23:37 04/23/20 23 04/23/2023 LIPID PANEL triglyceride s 138 mg/dL 0-150 NIH OSWALDO NSUS REPOR T RECOM MENDA TION FOR TRIGL YCERI ZORAIDA: ADULT CHILD LOW RISK: <150 ----- BODER LINE: 150-1 99 ----- HIGH RISK: >200 ----- Not Available [facility] (Lab) [address] [place], [address], 04/23/2023 10:23:37 04/23/20 23 04/23/2023 LIPID PANEL HDL cholesterol 52 mg/dL 40- Not Available [facility] (Lab) [address] [place] [address], [address], 04/23/2023 10:23:37 04/23/20 23 04/23/2023 LIPID PANEL [...] BE REPOR RUI. Not Available [facility] (Lab) [address] [place], [address], 04/23/2023 10:23:37 04/23/20 23 04/23/2023 COMPR EHENS JONATHAN METAB OLIC PANEL sodium 141 mmol/ L 137-14 5 Not Available [facility] (Lab) [address] [place], [address], 04/23/2023 10:23:48 04/23/20 23 04/23/2023 COMPR EHENS JONATHAN METAB OLIC PANEL potassium 4.5 mmol/ L 3.5-5. 1 Not Available [facility] (Lab) [address] [place], [address], 04/23/2023 10:23:48 04/23/20 23 04/23/2023 COMPR EHENS JONATHAN METAB OLIC PANEL chloride 104 mmol/ L 98-107 Not Available [facility] (Lab) [address] [place], [address], 04/23/2023 10:23:48 04/23/20 23 04/23/2023 COMPR EHENS JONATHAN METAB OLIC PANEL carbon dioxide 30 mmol/ L 22-30 Not Available [facility] (Lab) [address] [place], [address], 04/23/2023 10:23:48 04/23/20 23 04/23/2023 COMPR EHENS JONATHAN METAB OLIC PANEL anion gap 11.5 mmol/ L 14-22 low Not Available [facility] (Lab) [address] [place], [address], 04/23/2023 10:23:48 04/23/20 23 04/23/2023 COMPR EHENS JONATHAN METAB OLIC PANEL glucose 103 mg/dL 70-99 high Not Available [facility] (Lab) [address] [place], [address], 04/23/2023 10:23:48 04/23/20 23 04/23/2023 COMPR EHENS JONATHAN METAB OLIC PANEL BUN 24 mg/dL 8-19 high Not Available [facility] (Lab) [address] [place], [address], 04/23/2023 10:23:48 04/23/20 23 04/23/2023 COMPR EHENS JONATHAN METAB OLIC PANEL creatinine 1.05 mg/dL 0.66-1 .25 Not Available [facility] (Lab) [address] [place], [address], 04/23/2023 10:23:48 04/23/20 23 04/23/2023 COMPR EHENS JONATHAN METAB OLIC PANEL GFR 52 Refer ence Range : [place] ge GFR Healt hy Adult : >60 [...] calcu lator is avail able on the [facility] websi te: https :[email or web address] aguila.ulysses benz/salud guillenal s/kdo qi/gf r_cal culat or Not Available [facility] (Lab) [address] [place], [address], 04/23/2023 10:23:48 04/23/20 23 04/23/2023 COMPR EHENS JONATHAN METAB OLIC PANEL alkaline phosphatase 63 U/L 38-126 Not Available [facility] (Lab) [address] [place], [address], 04/23/2023 10:23:48 04/23/20 23 04/23/2023 COMPR EHENS JONATHAN METAB OLIC PANEL alanine aminotransfe rase 27 U/L 0-35 Not Available [facility] (Lab) [address] [place], [address], 04/23/2023 10:23:48 04/23/20 23 04/23/2023 COMPR EHENS JONATHAN METAB OLIC PANEL aspartate aminotransfe rase 41 U/L 15-37 high Not Available [facility] (Lab) [address] [place], [address], 04/23/2023 10:23:48 04/23/20 23 04/23/2023 COMPR EHENS JONATHAN METAB OLIC PANEL bilirubin, total 0.40 mg/dL 0.20-1 .30 Not Available [facility] (Lab) [address] [place], [address], 04/23/2023 10:23:48 04/23/20 23 04/23/2023 COMPR EHENS JONATHAN METAB OLIC PANEL calcium 9.1 mg/dL 8.4-10 .2 Not Available [facility] (Lab) [address] [place], [address], 04/23/2023 10:23:48 04/23/20 23 04/23/2023 COMPR EHENS JONATHAN METAB OLIC PANEL total protein 6.3 g/dL 6.3-8. 2 Not Available [facility] (Lab) [address] [place], [address], 04/23/2023 10:23:48 04/23/20 23 04/23/2023 COMPR EHENS JONATHAN METAB OLIC PANEL albumin 3.8 g/dL 3.0-4. 4 Not Available [facility] (Lab) [address] [place], [address], 04/23/2023 10:23:48 04/23/20 23 04/23/2023 COMPR EHENS JONATHAN METAB OLIC PANEL globulin 2.5 g/dL 2.6-4. 2 low Not Available [facility] (Lab) [address] [place], [address], 04/23/2023 10:23:48 04/23/20 23 04/23/2023 COMPR EHENS JONATHAN METAB OLIC PANEL A/G ratio 1.5 ratio 1.0-2. 0 Not Available [facility] (Lab) [address] [place], [address], 04/23/2023 10:23:48 04/23/20 23 04/23/2023 MICRO ALBUM IN RANDO M URINE microalbumin , urine <6.0 mg/L 0.0-16 .6 Not Available [facility] (Lab) [address] [place], [address], 04/23/2023 10:27:21 04/23/20 23 04/23/2023 CBC/C OMPLE TE BLD COUNT W/DIF F white blood cells 7.2 x10'3 /uL 4.2-10 .8 Not Available [facility] (Lab) [address] [place], [address], 04/23/2023 10:29:24 04/23/20 23 04/23/2023 CBC/C OMPLE TE BLD COUNT W/DIF F red blood cells 4.20 x10'6 /uL 3.80-5 .20 Not Available [facility] (Lab) [address] [place], [address], 04/23/2023 10:29:24 04/23/20 23 04/23/2023 CBC/C OMPLE TE BLD COUNT W/DIF F hemoglobin 12.8 g/dL 12.0-1 5.6 Not Available [facility] (Lab) [address] [place], [address], 04/23/2023 10:29:24 04/23/20 23 04/23/2023 CBC/C OMPLE TE BLD COUNT W/DIF F hematocrit 39.9 % 35.7-4 5.7 Not Available [facility] (Lab) [address] [place], [address], 04/23/2023 10:29:24 04/23/20 23 04/23/2023 CBC/C OMPLE TE BLD COUNT W/DIF F mean red cell volume 95.0 fL 82.0-9 9.0 Not Available [facility] (Lab) [address] [place], [address], 04/23/2023 10:29:24 04/23/20 23 04/23/2023 CBC/C OMPLE TE BLD COUNT W/DIF F mean red cell hemoglobin 30.5 pg 27.0-3 3.0 Not Available [facility] (Lab) [address] [place], [address], 04/23/2023 10:29:24 04/23/20 23 04/23/2023 CBC/C OMPLE TE BLD COUNT W/DIF F mean RBC HGB concentratio n 32.1 g/dL 31.0-3 6.0 Not Available [facility] (Lab) [address] [place], [address], 04/23/2023 10:29:24 04/23/20 23 04/23/2023 CBC/C OMPLE TE BLD COUNT W/DIF F red cell distribution width 13.0 % 11.8-1 5.5 Not Available [facility] (Lab) [address] [place], [address], 04/23/2023 10:29:24 04/23/20 23 04/23/2023 CBC/C OMPLE TE BLD COUNT W/DIF F platelets 119 x10'3 /uL 150-40 0 low Not Available [facility] (Lab) [address] [place], [address], 04/23/2023 10:29:24 04/23/20 23 04/23/2023 CBC/C OMPLE TE BLD COUNT W/DIF F mean platelet volume 12.9 fL 9.0-12 .4 high Not Available [facility] (Lab) [address] [place], [address], 04/23/2023 10:29:24 04/23/20 23 04/23/2023 CBC/C OMPLE TE BLD COUNT W/DIF F neutrophils 49.0 % 39.0-7 2.0 Not Available [facility] (Lab) [address] [place], [address], 04/23/2023 10:29:24 04/23/20 23 04/23/2023 CBC/C OMPLE TE BLD COUNT W/DIF F lymphocytes 28.2 % 16.0-4 7.0 Not Available [facility] (Lab) [address] [place], [address], 04/23/2023 10:29:24 04/23/20 23 04/23/2023 CBC/C OMPLE TE BLD COUNT W/DIF F monocytes 15.8 % 5.0-12 .0 high Not Available [facility] (Lab) [address] [place], [address], 04/23/2023 10:29:24 04/23/20 23 04/23/2023 CBC/C OMPLE TE BLD COUNT W/DIF F eosinophils 5.7 % 1.0-7. 0 Not Available [facility] (Lab) [address] [place], [address], 04/23/2023 10:29:24 04/23/20 23 04/23/2023 CBC/C OMPLE TE BLD COUNT W/DIF F basophils 1.0 % 0.0-2. 0 Not Available [facility] (Lab) [address] [place], [address], 04/23/2023 10:29:24 04/23/20 23 04/23/2023 CBC/C OMPLE TE BLD COUNT W/DIF F immature granulocytes 0.3 % 0.00-0 .50 Not Available [facility] (Lab) [address] [place], [address], 04/23/2023 10:29:24 04/23/20 23 04/23/2023 CBC/C OMPLE TE BLD COUNT W/DIF F neutrophils, absolute count 3.55 x10'3 /uL 1.5-8. 0 Not Available [facility] (Lab) [address] [place], [address], 04/23/2023 10:29:24 04/23/20 23 04/23/2023 CBC/C OMPLE TE BLD COUNT W/DIF F lymphocytes, absolute count 2.04 x10'3 /uL 1.07-3 .43 Not Available [facility] (Lab) [address] [place], [address], 04/23/2023 10:29:24 04/23/20 23 04/23/2023 CBC/C OMPLE TE BLD COUNT W/DIF F monocytes, absolute count 1.14 x10'3 /uL 0.29-0 .99 high Not Available [facility] (Lab) [address] [place], [address], 04/23/2023 10:29:24 04/23/20 23 04/23/2023 CBC/C OMPLE TE BLD COUNT W/DIF F eosinophils, absolute count 0.41 x10'3 /uL 0.02-0 .53 Not Available [facility] (Lab) [address] [place], [address], 04/23/2023 10:29:24 04/23/20 23 04/23/2023 CBC/C OMPLE TE BLD COUNT W/DIF F basophils, absolute count 0.07 x10'3 /uL 0.01-0 .08 Not Available [facility] (Lab) [address] [place], [address], 04/23/2023 10:29:24 04/23/20 23 04/23/2023 CBC/C OMPLE TE BLD COUNT W/DIF F immature granulocytes ,absolute 0.02 x10'3 /uL 0.00-0 .05 Not Available [facility] (Lab) [address] [place], [address], 04/23/2023 10:29:24 04/23/20 23 04/23/2023 CBC/C OMPLE TE BLD COUNT W/DIF F nucleated red blood cells 0.0 % -0 Not Available [facility] (Lab) [address] [place], [address], 04/23/2023 10:29:24 04/23/20 23 04/23/2023 CBC/C OMPLE TE BLD COUNT W/DIF F NRBC# 0.00 x10'3 /uL Not Available [facility] (Lab) [address] [place], [address], 04/23/2023 10:29:24 04/23/20 23 04/23/2023 T4 FREE free T4 1.17 NG/dL 0.78-2 .19 Not Available [facility] (Lab) [address] [place], [address], 04/23/2023 10:32:56 04/23/20 23 04/23/2023 TSH thyroid-stim ulating hormone 0.634 uIU/m L 0.465- 4.680 Not Available [facility] (Lab) [address] [place], [address], 04/23/2023 11:00:11 04/23/20 23 04/23/2023 HEMOG LOBIN A1C HA1C 5.8 % 4.0-6. 0 Diabe harman Scree roma Crite adi: <5.7% Consi stent with absen ce of diabe harman 5.7-6 .4% Consi stent with incre ased risk for diabe harman (pred iabet es) >OR=6 .5% Consi stent with diabe harman REFER ENCE: Diabe harman Care 2016, 39(Arnold ppl.1 ):s13 -s22 Not Available [facility] (Lab) [address] [place], [address], 04/23/2023 12:21:03 09/23/20 22 09/23/2022 CT, abdom en + pelvi s, w/ contr ast No observ ation record ed. [id number] [facility] (Radiology) [address] [place], [address], 12/25/2022 05:07:19 09/23/20 22 09/23/2022 CT, abdom en + pelvi s, w/ contr ast [facility] [place] [address] [place] [address] [phone] Patien t Name: ARUNA PANTOJA F Access ion #: [id number] Sex: F : 1949 0 Locati on: [facility] Attend ing Physic paras: LIBIA BROWNi ng Physic paras: LIBIA BROWN Exam Date: 2021 8:40 AM Exam Name: [...] 4 [facility] t Name: ARUNA PANTOJA NE F Access ion #: [id number] Sex: F : 1949 0 Exam [...] acute proces s Page 2 of 4 [facility] t Name: ARUNA PANTOJA F Access ion #: [id number] Sex: F : 1949 0 Exam [...] ly signed by: Page 3 of 4 [facility] t Name: ARUNA PANTOJA F Access ion #: [id number] Sex: F : 1949 0 Exam Date: 2021 8:40 AM Exam Name: CT ABDOME N PELVIS W Admitt ing Diagno sis(es ): Wilfrid azevedo MD Signed Date: 2021 5:06 PM (CT) Dictat ed by: Wilfrid azevedo MD DD: 2021 5:06 PM (CT) DT: 2021 5:06 PM (CT) Page 4 of 4 [facility]).[id number] [facility] (Imaging) [address] [place], [address], 12/25/2022 05:07:19 01/15/20 23 01/14/2023 XR, abdom en No observ ation record ed. [address], [place], [address], 01/15/2023 11:16:33 03/31/20 23 03/31/2023 , echo ardio gram No observ ation record ed. [address] [facility] [address] , [place], [address], 05/27/2023 12:42:39 04/23/20 24 04/23/2024 imagi ng/di agnos tic resul t No observ ation record ed. [facility] [address], [place], [address], 04/23/2024 12:03:13 01/15/20 25 01/14/2025 imagi ng/di agnos tic resul t No observ ation record ed. [facility] [address] , [place], [address], 01/14/2025 18:14:57 Result Notes Documentation Provider Name and Address Organization Details Recorded Time Ct, Abdomen + Pelvis, W/ Contrast : [facility] [address] [place] [address] Patient Name: TIM PANTOJA Sex: F : 1950 Location: [facility] Attending Physician: BRODY COLLADO Ordering Physician: BRODY COLLADO Exam Date: 09/23/2022 8:40 AM Exam Name: CT ABDOMEN PELVIS W Admitting Diagnosis(es): RADIOLOGY REPORT - FINAL EXAM: CT ABDOMEN PELVIS W HISTORY: abdominal discomfort COMPARISON: 02/01/2019 TECHNIQUE: The abdomen and pelvis are evaluated with intravenous contrast. Axial images are reconstructed in the coronal, sagittal, and axial planes and are reviewed with mediastinal lung windows settings. This CT exam was performed using one or more of the following dose reduction techniques: Automated exposure control, adjustment of the mA and/or kV according to patient size, or use of iterative reconstruction technique. Dose: 100 ML Isovue 370 intravenous Page 1 of 4 [facility] Patient Name: TIM PANTOJA Sex: F : 1950 Exam Date: 09/23/2022 8:40 AM Exam Name: CT ABDOMEN PELVIS W Admitting Diagnosis(es): Oral contrast:900 mL 2% weight per volume barium PO FINDINGS: Lower chest: Bilateral calcified granulomatous changes. CT ABDOMEN: Thickened mucosa of the GE junction at the site of the lap band, nonspecific graph: Mild nodular appearance of the liver correlate for cirrhosis. Gallbladder and biliary system: No acute process Spleen: Normal size Pancreas: No acute process Adrenal glands: No mass bilaterally Kidneys and ureters: No acute process Appendix: No evidence of appendicitis Stomach and bowel: Moderate volume of stool throughout the large colon. Lap band procedure noted. There is thickened mucosa at the site of the lap band nonspecific representing a change suggest direct visualization. There is also thickened mucosa at the gastric antrum and pylorus recommend direct visualization. Peritoneal cavity: No acute process Page 2 of 4 [facility] Patient Name: TIM PANTOJA Sex: F : 1950 Exam Date: 09/23/2022 8:40 AM Exam Name: CT ABDOMEN PELVIS W Admitting Diagnosis(es): Lymph nodes: No significant lymphadenopathy Vasculature: No aneurysm Osseous structures: Multilevel degenerative changes, no acute process Extra abdominal soft tissues: No acute process CT PELVIS: Reproductive: Hysterectomy residuals Rectosigmoid: Resection residuals of the rectosigmoid re-identified. Bladder and distal ureters: Decompressed bladder, no hydroureter bilaterally Extra pelvic soft tissues: Small extra pelvic lymph nodes. IMPRESSION: 1. Thickened mucosa at the site of the lap band, correlate for gastritis or other pathology direct visualization recommended. 2. Thickened mucosa at the pylorus and gastric antrum, also recommend direct visualization of this area. 3. Other findings described above, see above. Created and electronically signed by: Page 3 of 4 [facility] Patient Name: TIM PANTOJA Sex: F : 1950 Exam Date: 09/23/2022 8:40 AM Exam Name: CT ABDOMEN PELVIS W Admitting Diagnosis(es): Wilfrid Solis MD Signed Date: 09/23/2022 5:06 PM (CT) Dictated by: Wilfrid Solis MD (CT) (CT) Page 4 of 4 Not Available [facility] 12/25/2022 05:07:24 Problems Name Problem SNOMED Code Status Onset Date Resolution Date Notes Provider Name and Address Organization Details Recorded Time Chronic kidney disease 366382891 Active 2022 Not Available [facility] 4 10:26:19 Near syncope 630545312 Active 2022 Not Available [facility] 4 10:26:18 Excess panniculus of abdomen 3454399509643 Active 2022 Not Available [facility] 4 10:26:18 Seasonal allergy 078730701 Active 2022 Not Available [facility] 4 10:26:19 Small bowel obstructio n 136128686 Active 2022 Not Available [facility] 4 10:26:18 Transient cerebral ischemia 405059878 Active 2022 Not Available [facility] 4 10:26:18 Abdominal discomfort 91646547 Active 2022 Not Available [facility] 4 10:26:18 Moderate recurrent major depression 13640775 Active 2022 Not Available [facility] 4 10:26:18 Thrombocyt openic disorder 518539031 Active 2022 Not Available [facility] 4 10:26:18 Pain of left wrist 5817494509437 02 Active 2022 Not Available [facility] 4 10:26:18 Skin lesion 22200288 Active 2022 Not Available [facility] 4 10:26:19 Pain of toe of left foot 3083938746898 08 Active 2022 Not Available [facility] 4 10:26:18 Bunion 613835511 Active 2022 Not Available [facility] 4 10:26:18 Diabetes mellitus 73538575 Active 2022 Not Available [facility] 4 10:26:19 Dystrophia unguium 91848064 Active 2022 Not Available [facility] 4 10:26:19 COVID-19 073982722 Active 2022 Not Available [facility] 4 10:26:19 Upper respirator y infection 32302051 Active 2022 Not Available [facility] 4 10:26:19 Tailor's bunion of right foot 0444142696791 109 Active 2019 Not Available [facility] 4 10:26:18 History of diverticul itis 5857787329001 00 Active 2020 Not Available [facility] 4 10:26:18 Cellulitis 089644103 Active Not Available [facility] 4 10:26:18 Hyperchole sterolemia 27074263 Active Not Available [facility] 4 10:26:18 Constipati on 60108870 Active 2022 Not Available [facility] 4 10:26:18 Pain of right elbow joint 4740712319995 9109 Active 2021 Not Available [facility] 4 10:26:18 Blood glucose outside reference range 380359560 Active Not Available [facility] 4 10:26:18 Localized, 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 133733316 Active 2019 Not Available [facility] 4 10:26:18 Tibialis posterior tendinitis 279071469 Active Not Available [facility] 4 10:26:18 Dog bite - wound 466438869 Active Not Available [facility] 4 10:26:18 Hypertrigl yceridemia 848343614 Active 2021 Not Available [facility] 4 10:26:18 Diverticul itis 529031922 Active 2016 Not Available [facility] 4 10:26:18 Localized, primary osteoarthr itis of elbow 355159694 Active Not Available [facility] 4 10:26:18 Type 2 diabetes mellitus without complicati on 825430883 Active 2019 Not Available [facility] 4 10:26:18 Pain in left foot [id number] 07 Active Not Available [facility] 4 10:26:18 Depressive disorder 86208785 Active Not Available [facility] 4 10:26:18 Sinusitis 21013041 Active Not Available [facility] 4 10:26:18 Osteoarthr itis 654374674 Active Not Available [facility] 4 10:26:18 Diaphragma tic hernia 76499018 Active Not Available [facility] 4 10:26:18 Pharyngiti s 308829680 Active Not Available [facility] 4 10:26:18 Body mass index 40+ - severely obese 160697137 Active 2017 Not Available [facility] 4 10:26:18 Hypothyroi dism 15937419 Active Not Available [facility] 4 10:26:18 Bunion 939754206 Active 2019 Not Available [facility] 4 10:26:18 History of laparoscop ic adjustable gastric banding 035563018 Active 2020 Not Available [facility] 4 10:26:18 Arthritis of elbow 169684523 Active 2021 Not Available [facility] 4 10:26:19 Pain of shoulder region 80480055 Active 2021 Not Available [facility] 4 10:26:19 Pain of shoulder region 93623831 Active 2021 Not Available [facility] 4 10:26:19 Anxiety 19085632 Active 2021 Not Available [facility] 4 10:26:19 Cough 89848716 Active Not Available [facility] 4 10:26:19 Talipes planus 15479140 Active Not Available [facility] 4 10:26:19 Hyperlipid emia 22614675 Active Not Available [facility] 4 10:26:19 Essential hypertensi on 74422675 Active 2016 Not Available [facility] 4 10:26:19 Obstructiv e sleep apnea syndrome 69292949 Active 2016 Not Available [facility] 4 10:26:19 Bursitis 82689101 Active Not Available [facility] 4 10:26:19 Fatigue 88418725 Active Not Available [facility] 4 10:26:19 Problem Notes None recorded. Procedures Surgical History Date Name Laterality Status Provider Name and Address Organization Details Recorded Time 06/03/20 23 Nail Debridement completed Massimo Porter DPM [address] [facility], [place] [address], [place], [address], [facility] [employer] [facility] 06/03/2023 10:21:02 04/24/20 23 Medicare Wellness CPT Code, subsequent completed Opal Hyde RN BLA[employer]ER [employer] FLIP [facility]OPS 04/24/2023 14:31:12 07/04/20 22 EGD completed Not Available [facility] 12/25/2022 04:42:48 07/06/20 21 Most Recent Bone Density completed Not Available [facility] 12/25/2022 04:42:42 01/24/20 21 abdominoplasty completed Not Available [facility] 12/25/2022 04:42:48 07/01/20 13 Date of Last Colonoscopy completed Not Available [facility] 12/25/2022 04:42:42 Abdominal Surgery completed Not Available [facility] 12/25/2022 04:42:48 Cataract Surgery completed PRIYANKA Adams [facility] [employer] [facility] 01/16/2023 11:35:24 Imaging Results None recorded. Procedure Notes None recorded. Medical Equipment None Reported. Allergies Allergen ID Allergen Name Allergen Category Reaction Reaction Severity Criticality Documentation Date Start Date Code Code System Note Provider Name and Address Organization Details Recorded Time 8753 Demerol medicatio n vomiting Not available Not available 12/25/2022 11241 1 RxNorm Not Available [facility] 3 05:06:32 8754 codeine medicatio n vomiting Not available Not available 12/25/2022 2670 RxNorm Not Available [facility] 3 05:06:32 Medications Name Sig Start Date [...] administ ered by the provider 01/[address] [facility]: [phone] 4- Not Available Not Available Not Available benzonata [...] propionat e 50 mcg/actua tion nasal spray,ne pencorneliaon SHAKE LQ AND U 1 SPR IEN [...] Not Available Not Available No t Available [employer] Ultra2 Meter kit USE DIRECTED TO TEST [...] ular syringe TO BE ADMINIST ERED BY PHARMACI ST FOR IMMUNIZA TION 10/07 completed Not Available [...] % 97 % 72 /min 97.2 [degF] 98752.0 8 g 130 mm[Hg] 80 mm[Hg] Not Available [facility] 3 04:46:48 Date Recorded Body height Body mass index (BMI) Body weight Body temperature Heart rate Systolic blood pressure Diastolic blood pressure Provider Name and Address Organization Details Last Updated DateTime 3 154.94 cm 27.2 kg/m2 08475.3 g 97.1 [degF] 66 /min 114 mm[Hg] 66 mm[Hg] PRIYANKA Adams [facility] 3 11:36:55 Date Recorded Body height Body mass index (BMI) Body weight Body temperature Heart rate Systolic blood pressure Diastolic blood pressure Provider Name and Address Organization Details Last Updated DateTime 3 154.94 cm 27.9 kg/m2 55204.8 7 g 97.2 [degF] 78 /min 116 mm[Hg] 60 mm[Hg] PRIYANKA Adams [employer] 3 14:11:04 Date Recorded Body height Body mass index (BMI) Body weight Heart rate Respiratory rate Oxygen saturation Oxygen saturation in Arterial blood by Pulse oximetry Systolic blood pressure Diastolic blood pressure Provider Name and Address Organization Details Last Updated DateTime 3 154.94 cm 27 kg/m2 43784.7 1 g 65 /min 14 /min 98 % 98 % 115 mm[Hg] 74 mm[Hg] Nydia Lewis [employer] 3 09:44:05 Date Recorded Body mass index (BMI) Body height Heart rate Body temperature Body weight Systolic blood pressure Diastolic blood pressure Provider Name and Address Organization Details Last Updated DateTime 2 27.6 kg/m2 154.94 cm 90 /min 97.7 [degF] 33734.4 9 g 110 mm[Hg] 66 mm[Hg] Not Available [facility] 04:46:48 Social History Question Answer Notes LastModified by Organizat ion Details LastModified Time Tobacco Smoking Status Never Smoker Not Available [facility] 12/25/2022 04:20:45 Do You Have An Advance Directive? No MIGRATION.36308 79652 Information not available 12/25/2022 Are You Blind Or Do You Have Difficulty Seeing? No MIGRATION.73687 21194 Information not available 12/25/2022 What Is Your Level Of Caffeine Consumption? Moderate MIGRATION.54947 99175 Information not available 12/25/2022 How Much Tobacco Do You Chew? None MIGRATION.36891 16392 Information not available 12/25/2022 In The 14 Days Before Symptom Onset, Have You Had Close Contact With A Laboratory-confir med COVID-19 While That Case Was Ill? No MIGRATION.63804 90107 Information not available 12/25/2022 In The 14 Days Before Symptom Onset, Have You Had Close Contact With A Person Who Is Under Investigation For COVID-19 While That Person Was Ill? No MIGRATION.24984 19654 Information not available 12/25/2022 Are You Deaf Or Do You Have Serious Difficulty Hearing? No MIGRATION.74818 70984 Information not available 12/25/2022 What Type Of Diet Are You Following? REGULAR MIGRATION.18940 62771 Information not available 12/25/2022 Which Illicit Or Recreational Drugs Have You Used? Marijuana Information not available 01/16/2023 What Is The Highest Grade Or Level Of School You Have Completed Or The Highest Degree You Have Received? [id number] MIGRATION.77249 92844 Information not available 12/25/2022 Have There Been Any Changes To Your Family Or Social Situation? No MIGRATION.26392 12061 Information not available 12/25/2022 What Is The Fluoride Status Of Your Home? Unknown MIGRATION.30238 99673 Information not available 12/25/2022 Are There Any Guns Present In Your Home? Yes MIGRATION.80847 73007 Information not available 12/25/2022 Do You Use Insect Repellent Routinely? No MIGRATION.15072 51212 Information not available 12/25/2022 Where Do You Live? [place] MIGRATION.17266 74616 Information not available 12/25/2022 Do You Have A Medical Power Of Director Of Pulmonary Unit? No MIGRATION.84139 69136 Information not available 12/25/2022 What Was The Date Of Your Most Recent Tobacco Screening? 06/03/2023 [email or web address] Information not available 06/03/2023 Do You Have Any Pets? Yes MIGRATION.76284 20663 Information not available 12/25/2022 What Is Your Relationship Status? MIGRATION.51354 91098 Information not available 12/25/2022 Do You Use Your Seat Belt Or Car Seat Routinely? Yes MIGRATION.71827 33242 Information not available 12/25/2022 Do You Have Smoke And Carbon Monoxide Detectors In Your Home? Yes MIGRATION.02318 06654 Information not available 12/25/2022 Are You Passively Exposed To Smoke? No MIGRATION.04130 47097 Information not available 12/25/2022 Are There Any Smokers In Your House? No MIGRATION.24274 71679 Information not available 12/25/2022 How Much Tobacco Do You Smoke? No MIGRATION.79403 55836 Information not available 12/25/2022 Do You Use Sunscreen Routinely? No MIGRATION.86455 63376 Information not available 12/25/2022 Has Tobacco Cessation Counseling Been Provided? No N/a MIGRATION.51793 44394 Information not available 12/25/2022 How Many Years Have You Smoked Tobacco? 0 MIGRATION.50797 21213 Information not available 12/25/2022 Have You Recently Traveled Abroad? No MIGRATION.95779 55124 Information not available 12/25/2022 Have You Used IV Drugs? No Information not available 01/16/2023 Do You Have Difficulty Walking Or Climbing Stairs? No MIGRATION.22705 54036 Information not available 12/25/2022 Do You Have Any Dietary Restrictions? No MIGRATION.41777 37248 Information not available 12/25/2022 Sex: Female Functional Status Question Answer Note LastModified by Organizat ion Details LastModified Time Do you use any illicit or recreational drugs? Yes Information not available 01/16/2023 Do you or have you ever used any other forms of tobacco or nicotine? No MIGRATION.471664 9460 Information not available 12/25/2022 What is your level of alcohol consumption? None MIGRATION.240656 6719 Information not available 12/25/2022 Do you or have you ever used smokeless tobacco? Never used smokeless tobacco MIGRATION.650239 4248 Information not available 12/25/2022 Do you have transportation difficulties? No MIGRATION.833494 1537 Information not available 12/25/2022 Are you able to walk? YESWOREST MIGRATION.615437 9917 Information not available 12/25/2022 Do you have difficulty doing errands alone? No MIGRATION.724420 2609 Information not available 12/25/2022 Are you able to care for yourself? 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 No MIGRATION.385129 2832 Information not available 12/25/2022 Do you or have you ever used e-cigarettes or vape? Never used electronic cigarettes MIGRATION.155165 9255 Information not available 12/25/2022 What is your exercise level? None MIGRATION.282675 9836 Information not available 12/25/2022 Mental Status Question Answer Note LastModified by Organizat ion Details LastModified Time Do you feel stressed (tense, restless, nervous, or anxious, or unable to sleep at night)? [id number] MIGRATION.31667887 26 Information not available 12/25/2022 Do you have difficulty concentrating, remembering or making decisions? No MIGRATION.89172380 26 Information not available 12/25/2022 Family History Relationship Description Onset Age of this Age Resolved Age Notes LastModified by Organization Details LastModified Time Maternal Grandfather Diabetes mellitus MIGRATION.094 [id number] Not available 12/25/2022 04:42:52 Mother Diabetes mellitus MIGRATION.270 7262696 Not available 12/25/2022 04:42:52 Father Heart disease MIGRATION.812 [id number] Not available 12/25/2022 04:42:52 Sister Malignant tumor of stomach MIGRATION.400 5877689 Not available 12/25/2022 04:42:52 Medical History Condition Response BLINDNESS N NERVE DISEASE N RHEUMATIC FEVER Y BLADDER PROBLEMS N KIDNEY STONES N MRSA N OTHER # 1 N [...] mcg/0.3 mL dose 2 completed Not Available [facility] 12/16/2023 10:26:20 COVID-19, mRNA, LNP-S, PF, 30 mcg/0.3 mL dose 2 completed Not Available [facility] 12/16/2023 10:26:20 Influenza, high-dose, quadrivalent, PF 2 completed [facility] Available [facility] 12/16/2023 10:26:19 COVID-19, mRNA, LNP-S, PF, 30 mcg/0.3 mL dose 1 completed Not Available [facility] 12/16/2023 10:26:20 SARS-COV-2 (COVID-19) vaccine, UNSPECIFIED 1 completed Not Available [facility] 12/16/2023 10:26:20 SARS-COV-2 (COVID-19) vaccine, UNSPECIFIED 1 completed Not Available [facility] 12/16/2023 10:26:20 Pneumococcal conjugate PCV 13 9 completed Not Available [facility] 12/16/2023 10:26:20 Influenza, split virus, quadrivalent, preservative 9 completed Not Available [facility] 12/16/2023 10:26:19 influenza, unspecified formulation 7 completed Not Available [facility] 12/16/2023 10:26:20 tetanus toxoid, unspecified formulation 5 completed Not Available [facility] 12/16/2023 10:26:20 pneumococcal polysaccharide PPV23 2 completed Not Available [facility] 12/16/2023 10:26:20 Influenza, high-dose, quadrivalent, PF 1 completed Not Available [facility] 12/16/2023 10:26:19 Influenza, high-dose, trivalent, PF 8 completed Not Available [facility] 12/16/2023 10:26:20 Influenza, split virus, quadrivalent, preservative 6 completed Not Available [facility] 12/16/2023 10:26:19 Influenza, split virus, trivalent, preservative 4 completed Not Available [facility] 12/16/2023 10:26:20 Influenza, split virus, trivalent, preservative 3 completed Not Available [facility] 12/16/2023 10:26:20 zoster live 3 completed Not Available [facility] 12/16/2023 10:26:20 Past Encounters Encounter ID Performer Location Encounter Start Date Encounter Closed Date Diagnosis/Indication Diagnosis SNOMED-CT Code Diagnosis ICD10 Code Diagnosis Note [id number] Brody mora MD [facility] [place] [address] [place] [address] [place] [address] 02/06/2021 00:00:00 03/15/2021 09:12:55 [id number] Brody mora MD [facility] [place] [address] [facility] [address] [place] [address] 03/15/2021 00:00:00 03/20/2021 09:36:32 [id number] S[facility] Pulmon[facility] [place] [address] [facility] [address] [place] [address] 04/10/2021 00:00:00 04/10/2021 13:28:43 [id number] Brody mora MD [facility] Internal [facility] [place] [address] [facility] [address] [place] [address] 05/15/2021 00:00:00 05/16/2021 13:12:12 [id number] Omero farley MD [facility] General Surgery [address] [place] [address] [place] [address] 06/12/2021 00:00:00 06/12/2021 14:14:33 [id number] Brody mora MD [facility] Internal Med [place] [address] [place] [address] [place] [address] 06/21/2021 00:00:00 06/21/2021 11:10:32 [id number] _ATHN_MIGR ATION_1 _ATHENA_M IGRATION_ DEFAULT_1 _1 , 07/09/2021 00:00:00 07/09/2021 17:02:21 [id number] Brody mora MD [facility] [place] [address] [address] 08/14/2021 00:00:00 08/15/2021 17:19:35 [id number] MD ANN BrownS[facility] [address] [facility] [address] [facility] [place] [address] 11/19/2021 00:00:00 01/21/2022 15:53:56 [id number] MD CURT [place] [place] [address] [facility] [address] [place] [address] 12/18/2021 00:00:00 12/18/2021 16:56:08 [id number] MD CURT [facility] Internal Med [facility] [address] [address] 01/31/2022 00:00:00 03/26/2022 14:20:03 [id number] MD CURT [place] [place] [address] [facility] [address] [place] [address] 03/27/2022 00:00:00 04/12/2022 11:43:40 [id number] MD CURT Brown_[facility] Internal Med [facility] [address] [address] 06/06/2022 00:00:00 07/25/2022 16:43:39 [id number] MD CURT Brown_[facility] Internal Med [facility] [address] [address] 06/27/2022 00:00:00 06/27/2022 12:14:26 [id number] MD CURT [facility] Internal Med [facility] [address] [facility] [address] [address] 09/17/2022 00:00:00 09/17/2022 11:57:41 [id number] Jelena Villeda DISTRICT ATTORNEY- [facility] Pulmonolo gy [place] [address] [place] [address] 11/11/2022 00:00:00 11/11/2022 13:01:48 [id number] Brody mora MD S_G Internal Med [facility] [address] [facility], [place] [address] [place] [address] 01/16/2023 11:06:15 01/16/2023 12:42:18 Screening - NAD 548126961 Z13.9 C-scope: S/p surgery for diverticul itis 08/12/17 Dr Packer t another C-scope done, sees her GI Mammogram: 02/26/18 Neg 9: Neg 021: NegOrdered PAP: Not having any complaints declines any referrals at this time DEXA: 02/26/18: Osteopenia and is on ca and vit DDEXA: 07/06/2021 : [facility] , get #23UTD on zosterGet the TdUTD on COVID 19 01/14/2021 ADDENDUM: 08/06/18:Heidy Rose filled out for her today RTC in 3 monthsDo labsER if worseshe did verbalize her understand ing of the above Hyperlipidemia 11985302 E78.5 On rosuvastat in 40mg daily, but stopped this on her own, will need to restart 09/17/2022 Not on vascepaGet labs 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 470963084 E11.9 On glipizide will decrease to 2.5mg daily as she did have a low glucose and felt presyncopa l 11/19/2021 , now on 5mg post hosp d/c 01/22/2022 , not taking this at this time 06/06/2022 On ozempicGet labsNeeds to see eye MD and podiatry Addendum: 03/26/2022 :She is cleared for surgeryDr WigtonCata ractDate: 04/15/2022 OV 09/17/2022 :On ozempic, does well, no hx of MEN 2 or pancreatit isDoes well nowGet labs Chronic ki dney disease 148948469 N18.[address] Benavides On calcitriol On vit d weekly On lokelma (to treat high K), but not taking this as per her 11/19/2021 On mag ox Obstructiv e sleep apnea syndrome 08741623 G47.33 On CPAPSee pulmonary History of bariatric surgical procedure 368077938 Z98.[address] Mccray 07/09/2021 : Did not do the EGD as she was told to go an 1.5 hour awayGet a referral to Dr Narayan GI 11/19/2021 Hypothyroidism 34982027 E03.9 On euthyrox 50mcgs daily US thyroid 07/06/2021 : Neg Pain of ri ght elbow joint 6668964033 4977075 M25.521 Still c/o pain and unable to extend the elbowAlso c/o pain in the R wrist Dr Calderon 12/18/2021 , 03/27/2022 , may need elbow arthroplas ty, and cardiac clearance, she did see Bg Zaldivar on 06/12/2022 as per her history today 09/17/2022 and was told no surgery needed Near syncope 123723666 R 55 [facility] 08/16/2022 , Dr Foley, next apt is in 6 months Diaphragmatic hernia 398 44409 K44.9 S/p [facility], 07/04/2022 , EGD 07/04/2022 Dr Naraayn Essential hypertension 12978054 I10 S/p Roldan ICD 020: Seen in [...] 6 months Moderate r ecurrent major depression 76365336 F33.1 On venlafaxin e ER 75mg dailyOn xanax 0.5mg daily as needed but uses this very rarelyOn buspirone 10mg po bid all side effects explained to her Does well, not suicidal or homicidalD eclines any psychiatry referrals Excess yousif niculus of abdomen 7412877819 101 E65 S/p surgery Dr Funes, she self referred to him Infected wound on 02/24/2021 and was readmitted , wound exploratio n and packing done in OR by Dr Lazo on 02/24/2021 Does well nowOn tramadol, advised to not take this often Small glenda l obstruction 624392753 K56.609 Admitted [facility], d/c 01/22S/p resection 01/16/2022 , treated with IV antibiotic s and PICC line as was NPO 01/22/2022 :CMP: Gluc 100, AST 37HCBC: WBC 10.8H, H/H 10.8/33.5 Does well now Thrombocyt openic disorder 358076555 D69.6 Dr Willis 04/25/2022 Transient cerebral ischemia 777663954 G45.9 This is new history as per herShe has seen a neurologis t in [place], cannot recall the nameShe has signed a LUDMILA and will call with the name Dr Hernandez 02/18/2022 Screening mammography 24 111171 Z12.31 Constipation 36769109 K5 9.00 Did see WILFREDO Roland [employer]IDENT[employer] LEASING MANAGER on 01/14/2023 and did do an xray abd, now is on linzess as per her history Pain of left wrist 25735 60753 63314 M25.532 S/p EMG done by Dr HernandezGet an apt with hand surgery [id number] Brody mora MD S_G Internal Med [facility] [address] [facility] [place] [address] [place] [address] 04/24/2023 13:58:13 04/24/2023 14:35:06 Screening - NAD 637513204 Z13.9 C-scope: S/p surgery for diverticul itis 08/12/[address] Narayan 02/05/2023 , s/p c-scope 10/2022 Mammogram: 02/26/18 Neg09// 9: Neg09 021: NegOrdered PAP: Not having any complaints declines any referrals at this time DEXA: 05/03/18: Osteopenia and is on ca and vit DDEXA: 07/06/2021 : Osteopenia [facility] 09/19/2019 , get #23UTD on zosterGet the TdUTD on COVID 19 01/14/2021 ADDENDUM: 08/06/18:Heidy Rose filled out for her today RTC in 3 monthsDo labsER if worseshe did verbalize her understand ing of the above Hyperlipidemia 25032080 E78.5 On rosuvastat in 40mg daily, but stopped this on her own, will need to restart 09/17/2022 Not on vascepaGet labs 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 913179455 E11.9 On glipizide will decrease to 2.5mg daily as she did have a low glucose and felt presyncopa l 11/19/2021 , now on 5mg post hosp d/c 01/22/2022 , not taking this at this time 06/06/2022 On ozempicGet labsNeeds to see eye MD and podiatry Addendum: 03/26/2022 :She is cleared for surgeryDr MisbahCata ractDate: 04/15/2022 OV 09/17/2022 :On ozempic, does well, no hx of MEN 2 or pancreatit isDoes well nowGet labs OV 04/24/2023 :On ozempic, get labs, does well Chronic ki dney disease 320209340 N18.[address] Dr Benavides On calcitriol On vit d weekly On lokelma (to treat high K), but not taking this as per her 11/19/2021 On mag ox Obstructiv e sleep apnea syndrome 39629920 G47.33 On CPAPSee pulmonary History of bariatric surgical procedure 204738588 Z98.[address] Mccray 07/09/2021 : Did not do the EGD as she was told to go an 1.5 hour awayGet a referral to Dr Sylvain VILLALOBOS 11/19/2021 Dr Narayan 02/05/2023 , started on linzess, f/u in 3 monthsNot taking linzess now Hypothyroidism 16078559 E03.9 On euthyrox 50mcgs daily US thyroid 07/06/2021 : Neg Pain of ri ght elbow joint 4503616330 2928275 M25.521 Still c/o pain and unable to extend the elbowAlso c/o pain in the R wrist Dr Calderon 12/18/2021 , 03/27/2022 , may need elbow arthroplas ty, and cardiac clearance, she did see Bg Zaldivar on 06/12/2022 as per her history 09/17/2022 and was told no surgery needed Near syncope 489314815 R 55 [facility] 08/16/2022 , Dr Foley, next apt is in 6 months Diaphragmatic hernia 398 20470 K44.9 S/p [facility], 07/04/2022 , EGD 07/04/2022 Dr Narayan Essential hypertension 19958000 I10 S/p Roldan ICD 020: Seen in ER CNE as the [employer] ICD was firing, as per Dr Alejandra this is lead noise and not true v-tach, pt d/c with f/u in Dr Alejandra' s office On ASAOn entresto 24-26mg bid Dr FoleyOn sotalol 80mg bid, changed to 40mg bid post d/c [facility] 01/22/2022 On mag ox Sees [facility] Dr Foley last OV 02/28/2023 , next in 6 months Moderate r ecurrent major depression 03416729 F33.1 On venlafaxin e ER 75mg dailyOn xanax 0.5mg daily as needed but uses this very rarelyOn buspirone 10mg po bid all side effects explained to her Does well, not suicidal or homicidalD eclines any psychiatry referrals Excess yousif niculus of abdomen 3407682061 101 E65 S/p surgery Dr Funes, she self referred to him Infected wound on 02/24/2021 and was readmitted , wound exploratio n and packing done in OR by Dr Lazo on 02/24/2021 Does well nowOn tramadol, advised to not take this often Small glenda l obstruction 587467004 K56.609 Admitted [facility], d/c 01/22S/p resection 01/16/2022 , treated with IV antibiotic s and PICC line as was NPO 01/22/2022 :CMP: Gluc 100, AST 37HCBC: WBC 10.8H, H/H 10.8/33.5 Does well now Thrombocyt openic disorder 640821524 D69.6 Dr Willis 02/28/2023 , f/u in 6 months Transient cerebral ischemia [id number] G45.9 This is new history as per herShe has seen a neurologis t in [place], cannot recall the nameShe has signed a LUDMILA and will call with the name Dr Hernandez 02/18/2022 Screening mammography 24 573067 Z12.31 Constipation 62191324 K5 9.00 Did see WILFREDO Roland RESIDENTIAL LEASING MANAGER on 01/14/2023 and did do an xray abd, now is on linzess as per her history Pain of left wrist 71984 82242 71383 M25.532 S/p EMG done by Dr HernandezGet an apt with hand surgery Screening for osteoporosis 981272341 Z13.820 Adult heal th examination 949101730 Z00.00 Screening for disorder [id number] Z13.9 Skin lesion 62754664 L98 .9 Left anterior leg, small tender lesion noted, refer to Dr Cm [id number] Massimo Porter DPM [facility] [address] [facility] [address] [place] [address] 06/03/2023 09:34:08 06/03/2023 10:36:29 Pain of toe of left foot [id number] 35411 M79.675 left 2nd previous surgeryxra ys orderedcon t Supportive shoe gearfollow -up in 3 months Bunion 046905759 M21.61 1 xrays orderedfol low-up x-rays Osteoarthritis 302595171 M19.90 right midfootxra ys orderedfol low-up x-rays Diabetes mellitus 497094 09 E11.9 Patient educated on neuropathy , diabetes, diabetic diet, and daily foot exams. Patient is to check feet daily for new wounds, blisters, redness to prevent infection and ulceration s to the feet. Patient will return to clinic in 3 months for diabetic foot workup. Dystrophia unguium 44302 009 L60.3 Nails 1 through 10 were debrided with sharp mechanical debridemen t without incident. Nails were debrided and greater than 50% length and thickness where needed. Health Concerns Section Related Observation LastModified by Organization Detai ls LastModified Time None Recorded Concern Status LastModified by Organization Details LastModified Time None Recorded Advance Directives Directive N: Payers Insurance Date Sequence Insurance Name Policy Number Policy Erazo Covered Member ID Erazo Member ID Guarantor Name 08/27/2023 1 [place] Tim Pantoja [id number] Tim Pantoja 08/27/2023 2 [employer]URANCE [employer] (MEDICARE SUPPLEMENT) [employer] Tim Pantoja [id number] Tim Pantoja Notes Date Note Type Note Provider [...] she is R HD, 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 cannot extend her elbow, pain is sharp and hurts more with a semi automatic sewing machine operator OV 04/07/18ACV:She is here as she is having headaches, she states that she may have knocked the lead of the pacemaker with the lawargucci, is to get the new leads this Thrusday at [facility] with Dr Cabrera states that she is [...] the eliquis, [facility] 06/10/[facility]:ACV:Here for a rash under her L [...] also OV 11/16/2020:Here for her routine aptShe ravindra Lombardiyassine has seen plastic surgeon Dr Funes for [...] for post hosp for infection surgical lacerationKatiaw joe Talley is here with her husbandAlso has had [...] but was seen in the ER at [facility] yesterday for a pre syncopal episode, states that she did have a CT head and labs and was d/c home to follow up with her PCPExtensive ROS noted for CVS and CNSShe is here with her Naresh recent labs OV 01/31/2022:TCM: d/c 01/22/2022 [facility] for SBO, s/p resection on 01/15/2022, Dr Neri with her , feels Gerri does state that she has seen a neurologist in [place], she was referred by her rolls mill operator as there was concern about her having [...] do the labs Brody Collado MD [address], [address], [place], [address], [place] [facility] [employer] [facility] 01/16/2023 13:11:27 3 text/html Here to establish [...] she is R HD, 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 cannot extend her elbow, pain is sharp and hurts more with a gripOV 04/07/18ACV:She is here as she is having headaches, she states that she may have [facility], is to get the new leads this Thrusday at [facility] with Dr Cabrera states that she is [...] alsoOV 11/16/2020:Here for her routine aptShe feels Harjityassine has seen plastic surgeon Dr Funes [...] but was seen in the ER at [facility] yesterday for a pre syncopal episode, states that she did have a CT head and labs and was d/c home to follow up with her PCPExtensive ROS noted for CVS and CNSShe is here with her Naresh recent labsOV 01/31/2022:TCM: d/c 01/22/2022 [facility] for SBO, s/p resection on 01/15/2022, Dr Neri with her , feels Gerri does state that she has seen a neurologist in [place], she was referred by her rolls mill operator as there was concern about her having [...] stool Brody Collado MD [address], [facility] [address], [place], [address], [employer] [facility] [employer] 08/18/2023 14:50:39 3 text/html . Patient is [...] pedal complaints. Massimo Porter DPM [address], [facility] [address], [place], [address], [employer] 06/03/2023 10:33:42 OBGyn Episode No OBEpisode recorded.
--- OUTSIDE RECORDS SUMMARY | 2025-04-28 07:21 | XMS_ITS | Clinical Summary ---
Author Organization [facility] Address [address] [facility] [address] [place] [address] Phone Care Team Providers Care Review Manager Name Role Phone Duglas Collado MD Primary [...] Encounters Date Type Department Care Team Description 04/12/2025 External Device Data STL ABSTRACTION Provider, Abstract 03/17/2025 External Device Data STL ABSTRACTION Provider, [...] Comments Blood Pressure 104/71 2024 2:17 PM SERVICE ESTABLISHMENT ATTENDANT Pulse 91 2024 2:17 PM SERVICE ESTABLISHMENT ATTENDANT Temperature 36.9 C (98.4 F) 2024 2:17 PM SERVICE ESTABLISHMENT ATTENDANT Respiratory Rate 15 2024 2:17 PM SERVICE ESTABLISHMENT ATTENDANT Oxygen Saturation 95% 2024 2:17 PM SERVICE ESTABLISHMENT ATTENDANT Inhaled Oxygen Concentration - - Weight 69.3 kg (152 lb 12.8 oz) 2024 2:17 PM SERVICE ESTABLISHMENT ATTENDANT Height 152.4 cm (5') 04/25/2022 11:38 AM CDT Body Mass Index 29.84 04/25/2022 11:38 AM CDT Plan of Treatment Upcoming Encounters Date Type Department Care Team (Late st Contact Info) Description 05/27/2025 10:30 AM CDT Office Visit [facility] Oncology and Hematology - Qu[facility] [address] [facility] [address] [place] [address] Brandon Willis MD [address] [facility] [address] [place] [address] Health Maintenance Due Date Last Done Comments DIABETES ANNUAL FOOT EXAM 1968 DIABETES MICROALBUMIN ANNUAL SCREEN 1968 LDL CHOLESTEROL ANNUAL 1968 DTAP/TDAP/TD VACCINES (1 - Tdap) 1969 FIT-DNA Q 3 years 1995 FIT/FOBT Q 1 year 1995 Flex Sig/CT Colonography Q 5 years 1995 ZOSTER VACCINE (2 of 3) 09/23/2013 07/29/2013 DIABETES ANNUAL RETINAL EXAM 02/19/2023, 12/04/2021, 12/04/2021, Additional history exists DIABETES HBA1C Q 6 MONTHS 02/02/20252023, 03/16/2024, 09/02/2023, Additional history exists BREAST CANCER SCREENING 03/16/2025 03/16/20 24, 02/13/2024, 02/13/2024, Additional history exists INFLUENZA VACCINE (#1) 2025 2, 08/14/2021, 08/09/2019, Additional history exists RSV VACCINE (60+ or ) (1 - 1-dose 75+ series) 2025 OSTEOPOROSIS SCREENING 11/28/2028 11/28/2023, 2020 COLORECTAL SCREENING 11/07/2032 11/07/2022, 07/01/20 13 Colorectal Cancer Screening 11/07/2032 PNEUMOCOCCAL VACCINE 50+ YEARS Completed 09/17/2022 , 09/19/2019 Medical Devices Implanted Type Area Psychology Fellow Device Identifier Shelf Expiration Date Model / Serial / Lot Lap Band,Bilat Knee Replacement Implanted:(Quantit y not on file) Explanted:(Quantit y not on file) Insurance MEDICARE PART A AND B AETNA MEDICARE SUPP AESSI MEDICARE PART A AND B AETNA MEDICARE SUPP AESSI Advance Directives For more information, please contact: [phone] * Full Code (Latest Code Status on File) Date Activated Date Inactivated Comments 07/05/2014 8:17 AM 07/05/2014 11:32 AM * Full Code Date Activated Date Inactivated Comments 07/05/2014 6:54 AM 07/05/2014 8:17 AM Care Teams Review Manager Relationship Specialty Start Date End Date Duglas Collado MD PCP - General Internal Medicine 03/27/22
--- OUTSIDE RECORDS SUMMARY | 2025-04-28 07:21 | XMS_ITS | Continuity of Care Document ---
Author Organization [facility] Address [address] [place] [address] [address] [place] [address] Phone Care Team Providers Care Coordinator Volunteer Services Name Role Phone Jessica Reece Unavailable Unavailable Procedures Procedure Date Office/outpatient Visit, Est Advance Directives Directive Yes / No Effective Date File Name No Information Encounters Encounter Description Practice Location Reason(s) For Visit Diagnoses Date Provider Providers Copied on Encounter Office/outpat ient Visit, Est [facility], [address] [place] [address] [address], [place], [place], [id number], [place] tel:[phone] SEC [facility] No Information [phone] Shanell Lopez. [address] , [address], [place], [address], [place]. tel:[phone] Family History Family Member Type Diagnosis Age [...]
--- NOTE | 2025-04-28 08:25 | S_PTH ---
PATIENT: Katheryn Pantoja LOC: [facility] U#:[id number] AGE/SX: 74/F ROOM: RE04/28/[address]: Yumi Reich MD : 1950 BED: DIS: 04/28/2025 SPEC #: [id number] RECD: 04/28/25 10:37 STATUS: ELENA REQ #: [id number] ANA: 04/28/25 08:[address]: Yumi Reich DEPT: [facility] Surgical RECD BY: Suzanne Duarte ENTERED: 04/28/25 10:38 SP TYPE: Surgical OTHR DR: Jason Goldstein MD Tissues: A - Breast Biopsy Procedures: Hematoxylin and Eosin Stain Gross and Microscopic Level 4
== END 2025-04-28 07:18 | disposition home or self-care (01) ==
LOC: ANHIMG 07:18
PROVIDERS: PCP Internal Medicine; Visit Provider Surgery
DX: N60.21 Fibroadenosis of right breast (principal); Z90.13 Acquired absence of bilateral breasts and nipples
CPT/HCPCS: 19083; 77065; 88305; A4648

== ENCOUNTER 2025-05-12 01:09 | Day surgery (SDC) | payer MEDICARE, SELFPAY ==
[2025-04-11 13:53] VITALS: BMI 28.1
--- OUTSIDE RECORDS SUMMARY | 2025-05-04 00:54 | XMS_ITS | Clinical Summary ---
Author Organization [facility] Address [address] [address] [place] [address] Phone Care Team Providers Care Learning And Development Officer Name Role Phone Duglas Collado MD Primary [...] Comments Blood Pressure 104/71 2024 2:17 PM FRAME NAILER Pulse 91 2024 2:17 PM FRAME NAILER Temperature 36.9 C (98.4 F) 2024 2:17 PM FRAME NAILER Respiratory Rate 15 2024 2:17 PM FRAME NAILER Oxygen Saturation 95% 2024 2:17 PM FRAME NAILER Inhaled Oxygen Concentration - - Weight 69.3 kg (152 lb 12.8 oz) 2024 2:17 PM FRAME NAILER Height 152.4 cm (5') 04/25/2022 11:38 AM CDT Body Mass Index 29.84 04/25/2022 11:38 AM CDT Plan of Treatment Upcoming Encounters Date Type Department Care Team (Late st Contact Info) Description 05/27/2025 10:30 AM CDT Office Visit [facility] Oncology and Hematology - [place] [address] [facility] [address] [place] [address] Brandon Willis MD [address] [facility] [address] [place] [address] Health Maintenance Due Date Last [...] , 09/19/2019 Medical Devices Implanted Type Area Mental Hygienist Device Identifier Shelf Expiration Date Model / Serial / Lot Lap Band,Bilat Knee Replacement Implanted:(Quantit y not on file) Explanted:(Quantit y not on file) Insurance MEDICARE PART A AND B AETNA MEDICARE SUPP AESSI MEDICARE PART A AND B AETNA MEDICARE SUPP AESSI Advance Directives For more information, please contact: [phone] * Full Code (Latest Code Status on File) Date Activated Date Inactivated Comments 07/05/2014 8:17 AM 07/05/2014 11:32 AM * Full Code Date Activated Date Inactivated Comments 07/05/2014 6:54 AM 07/05/2014 8:17 AM Care Teams Learning And Development Officer Relationship Specialty Start Date End Date Duglas Collado MD PCP - General Internal Medicine 03/27/22
--- OUTSIDE RECORDS SUMMARY | 2025-05-04 00:55 | XMS_ITS | Data Portability ---
Author Organization [place] [facility], Main Office Address [address] [place] [address] Care Team Providers Care Flask Carrier Name Role Phone BRODY COLLADO Primary Care Provider BRODY COLLADO Referring Provider [phone] Assessment Encounter Date Assessment Date Assessment LastModified [...] This note is dictated and transcribed by [employer]. Applications Trainer variances may occur. Despite proofreading, typographical errors may occur. [email or web address] Not available 06/03/2023 10:31:35 Plan of Treatment Reminders Order Date Submit Date Provider Last Modified By Organization Details Last Modified Time Details Appointments None recorded. Lab lipid panel, serum 2022 023 [email or web address] [facility] (Lab), [address] [place], [address], 4 13:54:50 CBC w/ auto diff [address] (Lab), [address] [place], [address], 4 13:54:50 TSH, serum or plasma [address] (Lab), [address] [place], [address], 4 13:54:50 T4, free, serum [address] (Lab), [address] [place], [address], 4 13:54:50 CMP, serum or plasma [address] (Lab), [address] [place], [address], 4 13:54:51 vitamin D, 25-hydroxy, total, serum [address] (Lab), [address] [place], [address], 4 17:14:48 glycohemogl obin, total, blood [address] (Lab), [address] [place], [address], 4 13:54:49 microalbumi n, urine [address] (Lab), [address] [place], [address], 4 13:54:50 lipid panel, serum 2022 023 [facility] (Lab), [address] [place], [address], 3 10:23:37 CBC w/ auto diff 2022 023 [facility] (Lab), [address] [place], [address], 3 10:29:24 TSH, serum or plasma 2022 023 [facility] (Lab), [address] [place], [address], 3 11:00:11 T4, free, serum 2022 023 [facility] (Lab), [address] [place], [address], 3 10:32:56 CMP, serum or plasma 2022 023 [facility] (Lab), [address] [place], [address], 3 10:23:48 glycohemogl obin, total, blood 2022 023 [facility] (Lab), [address] [place], [address], 3 12:21:03 microalbumi n, urine 2022 023 [facility] (Lab), [address] [place], [address], 3 10:27:[address] referral 2022 023 Not available 3 12:14:23 nephrologis t referral 2022 023 lili Benavides MD, [address], [address], [place], [address], 4 17:05:18 hematologis t referral 2022 023 [email or web address] Willis MD, [address], [place], [address], 3 12:14:51 cardiologis t referral 2022 023 [email or web address], [address], [address], [place], [address], 3 12:16:17 hand surgeon referral 2022 023 [email or web address] Calderon MD, [address] [place], [address], 3 12:15:45 neurologist referral 2022 023 [email or web address] Hernandez MD, [address] [facility] , [address], [place], [address], 3 12:15:26 wood grainer referral 2022 023 [email or web address] Massimo Porter DPDouglas, [address], [address], [place], [address], 4 17:05:19 general surgeon referral 2022 023 rio Waddell MD, [address], [address], [place], [address], 3 12:16:47 neurologist referral 2022 023 rio Hernandez MD, [address] [facility] , [address], [place], [address], 3 11:01:11 nephrologis t referral 2022 023 rio Benavides MD, [address], [address], [place], [address], 3 17:44:[address] referral 2022 023 [email or web address] Not available 3 18:42:45 hematologis t referral 2022 023 [email or web address] Brandon Willis MD, [address], [place], [address], 3 11:00:29 wood grainer referral 2022 023 [email or web address] Massimo Porter DPM, [address] [facility], [address], [place], [address], 3 17:43:46 hand surgeon referral 2022 023 [email or web address] Calderon MD, [address] [place], [address], 3 10:03:10 Procedures None recorded. Surgeries None recorded. Imaging MAMMO, screening, digital, bilateral 2022 023 [email or web address] [facility] (Radiology), [address] [place], [address], 4 17:05:28 DEXA, axial skeleton 2022 023 [email or web address] [facility] (Radiology), [address] [place], [address], 4 17:14:35 MAMMO, screening, digital, bilateral 2022 023 [email or web address] ([facility]), [address] [place], [address], 3 12:09:29 Medication Orders None recorded. Patient TargetsNo targets recorded. 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 Referring Physician: Jessica Peña, Encounter Date: 01/16/2023 Air Conditioning Service Technician Referral for Type 2 diabetes mellitus without complication Referring Physician: Jessica Peña, Encounter Date: 01/16/2023 Referring Physician: Jessica Peña, Encounter Date: 01/16/2023 Neurologist Referral for Tra nsient cerebral ischemia Referring Physician: Jessica Peña, Encounter Date: 01/16/2023 Hand Surgeon Referral for Pa in of left wrist Referring Physician: Jessica Peña, Encounter Date: 01/16/2023 Chef Broiler Or Fry Referral for O bstructive sleep apnea syndrome Referring Physician: Jessica Peña, Encounter Date: 04/24/2023 Hyperion Analyst 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 Referring Physician: Jessica Peña, Encounter Date: 04/24/2023 Air Conditioning Service Technician Referral for Type 2 diabetes mellitus without complication Referring Physician: Jessica Peña, Encounter Date: 04/24/2023 Referring Physician: Jessica Peña, Encounter Date: 04/24/2023 Neurologist Referral for Tra nsient cerebral ischemia Referring Physician: Jessica Peña, Encounter Date: 04/24/2023 Hand Surgeon Referral for Pa in of left wrist Referring Physician: Jessica Peña, Encounter Date: 04/24/2023 Child Day Care Provider Referral for Ne ar syncope Referring Physician: Jessica Peña, Encounter Date: 04/24/2023 General Surgeon Referral for Skin lesion Referring Physician: Brody Collado, Internal Medicine, Encounter Date: 04/24/2023 Results Created Date Observation Date Name Description Value Unit Range Abnormal Flag Note LastModifiedBy Organization Detail LastModifiedTime 08/27/20 22 08/27/2022 FOLAT E, SERUM /PLAS MA folate 5.98 NG/mL 2.76-2 0.0 Not Available [facility] (Lab) [address] [place], [address], 08/27/2022 18:44:29 08/27/20 22 08/27/2022 VITAM IN B12 (MADDY DOMENICA ) vb12 476 pg/mL 239-93 1 Not Available [facility] (Lab) [address] [place], [address], 08/27/2022 18:44:26 08/27/20 22 08/27/2022 MICRO ALBUM IN RANDO M URINE microalbumin , urine <6.0 mg/L 0.0-16 .6 Not Available [facility] (Lab) [address] [place], [address], 08/27/2022 18:09:51 08/27/20 22 08/27/2022 HEMOG LOBIN A1C HA1C 5.5 % 4.0-6. 0 Diabe harman Scree roma Crite adi: <5.7% Consi stent with absen ce of diabe harman 5.7-6 .4% Consi stent with incre ased risk for diabe harman (pred iabet es) >OR=6 .5% Consi stent with diabe harman REFER ENCE: Diabe harman Care 2016, 39(Arnold ppl.1 ):s13 -s22 Not Available [facility] (Lab) [address] [place], [address], 08/27/2022 15:07:49 08/27/20 22 08/27/2022 TSH thyroid-stim ulating hormone 1.980 uIU/m L 0.465- 4.680 Not Available [facility] (Lab) [address] [place], [address], 08/27/2022 13:44:58 08/27/20 22 08/27/2022 T4 FREE free T4 1.19 NG/dL 0.78-2 .19 Not Available [facility] (Lab) [address] [place], [address], 08/27/2022 13:31:42 08/27/20 22 08/27/2022 COMPR EHENS JONATHAN METAB OLIC PANEL sodium 138 mmol/ L 137-14 5 Not Available [facility] (Lab) [address] [place], [address], 08/27/2022 13:22:36 08/27/20 22 08/27/2022 COMPR EHENS JONATHAN METAB OLIC PANEL potassium 4.4 mmol/ L 3.5-5. 1 Not Available [facility] (Lab) [address] [place], [address], 08/27/2022 13:22:36 08/27/20 22 08/27/2022 COMPR EHENS JONATHAN METAB OLIC PANEL chloride 104 mmol/ L 98-107 Not Available [facility] (Lab) [address] [place], [address], 08/27/2022 13:22:36 08/27/20 22 08/27/2022 COMPR EHENS JONATHAN METAB OLIC PANEL carbon dioxide 31 mmol/ L 22-30 high Not Available [facility] (Lab) [address] [place], [address], 08/27/2022 13:22:36 08/27/20 22 08/27/2022 COMPR EHENS JONATHAN METAB OLIC PANEL anion gap 7.4 mmol/ L 14-22 low Not Available [facility] (Lab) [address] [place], [address], 08/27/2022 13:22:36 08/27/20 22 08/27/2022 COMPR EHENS JONATHAN METAB OLIC PANEL glucose 93 mg/dL 70-99 Not Available [facility] (Lab) [address] [place], [address], 08/27/2022 13:22:36 08/27/20 22 08/27/2022 COMPR EHENS JONATHAN METAB OLIC PANEL BUN 17 mg/dL 8-19 Not Available [facility] (Lab) [address] [place], [address], 08/27/2022 13:22:36 08/27/20 22 08/27/2022 COMPR EHENS JONATHAN METAB OLIC PANEL creatinine 0.97 mg/dL 0.66-1 .25 Not Available [facility] (Lab) [address] [place], [address], 08/27/2022 13:22:36 08/27/20 22 08/27/2022 COMPR EHENS JONATHAN METAB OLIC PANEL GFR 57 Refer ence Range : [place] ge GFR Healt hy Adult : >60 [...] calcu lator is avail able on the [facility] websi te: https ://rigoberto aguila.ulysses benz/pr ofess ional s/kdo qi/gf r_cal culat or Not Available [facility] (Lab) [address] [place], [address], 08/27/2022 13:22:36 08/27/20 22 08/27/2022 COMPR EHENS JONATHAN METAB OLIC PANEL alkaline phosphatase 63 U/L 38-126 Not Available [facility] (Lab) [address] [place], [address], 08/27/2022 13:22:36 08/27/20 22 08/27/2022 COMPR EHENS JONATHAN METAB OLIC PANEL alanine aminotransfe rase 5 U/L 0-35 Not Available [facility] (Lab) [address] [place], [address], 08/27/2022 13:22:36 08/27/20 22 08/27/2022 COMPR EHENS JONATHAN METAB OLIC PANEL aspartate aminotransfe rase 22 U/L 15-37 Not Available [facility] (Lab) [address] [place], [address], 08/27/2022 13:22:36 08/27/20 22 08/27/2022 COMPR EHENS JONATHAN METAB OLIC PANEL bilirubin, total 0.60 mg/dL 0.20-1 .30 Not Available [facility] (Lab) [address] [place], [address], 08/27/2022 13:22:36 08/27/20 22 08/27/2022 COMPR EHENS JONATHAN METAB OLIC PANEL calcium 9.8 mg/dL 8.4-10 .2 Not Available [facility] (Lab) [address] [place], [address], 08/27/2022 13:22:36 08/27/20 22 08/27/2022 COMPR EHENS JONATHAN METAB OLIC PANEL total protein 6.4 g/dL 6.3-8. 2 Not Available [facility] (Lab) [address] [place], [address], 08/27/2022 13:22:36 08/27/20 22 08/27/2022 COMPR EHENS JONATHAN METAB OLIC PANEL albumin 4.1 g/dL 3.0-4. 4 Not Available [facility] (Lab) [address] [place], [address], 08/27/2022 13:22:36 08/27/20 22 08/27/2022 COMPR EHENS JONATHAN METAB OLIC PANEL globulin 2.3 g/dL 2.6-4. 2 low Not Available [facility] (Lab) [address] [place], [address], 08/27/2022 13:22:36 08/27/20 22 08/27/2022 COMPR EHENS JONATHAN METAB OLIC PANEL A/G ratio 1.8 ratio 1.0-2. 0 Not Available [facility] (Lab) [address] [place], [address], 08/27/2022 13:22:36 08/27/20 22 08/27/2022 LIPID PANEL cholesterol 271 mg/dL 140-19 9 high NIH OSWALDO NSUS RECOM MENDA TION FOR PAWAN STERO L: ADULT CHILD LOW RISK: <200 <170 BORDE RLINE : <200- 239 ----- HIGH RISK: >240 >200 Not Available [facility] (Lab) [address] [place], [address], 08/27/2022 13:21:09 08/27/20 22 08/27/2022 LIPID PANEL triglyceride s 237 mg/dL 0-150 high NIH OSWALDO NSUS REPOR T RECOM MENDA TION FOR TRIGL YCERI ZORAIDA: ADULT CHILD LOW RISK: <150 ----- BODER LINE: 150-1 99 ----- HIGH RISK: >200 ----- Not Available [facility] (Lab) [address] [place], [address], 08/27/2022 13:21:09 08/27/20 22 08/27/2022 LIPID PANEL HDL cholesterol 55 mg/dL 40- Not Available [facility] (Lab) [address] [place], [address], 08/27/2022 13:21:09 08/27/20 22 08/27/2022 LIPID PANEL [...] WILL NOT BE REPOR RUI. Not Available [facility] (Lab) [address] [place], [address], 08/27/2022 13:21:09 08/27/20 22 08/27/2022 CBC/C OMPLE TE BLD COUNT W/DIF F white blood cells 7.2 x10'3 /uL 4.2-10 .8 Not Available [facility] (Lab) [address] [place], [address], 08/27/2022 13:09:09 08/27/20 22 08/27/2022 CBC/C OMPLE TE BLD COUNT W/DIF F red blood cells 4.43 x10'6 /uL 3.80-5 .20 Not Available [facility] (Lab) [address] [place], [address], 08/27/2022 13:09:09 08/27/20 22 08/27/2022 CBC/C OMPLE TE BLD COUNT W/DIF F hemoglobin 13.8 g/dL 12.0-1 5.6 Not Available [facility] (Lab) [address] [place], [address], 08/27/2022 13:09:09 08/27/20 22 08/27/2022 CBC/C OMPLE TE BLD COUNT W/DIF F hematocrit 42.9 % 35.7-4 5.7 Not Available [facility] (Lab) [address] [place], [address], 08/27/2022 13:09:09 08/27/20 22 08/27/2022 CBC/C OMPLE TE BLD COUNT W/DIF F mean red cell volume 96.8 fL 82.0-9 9.0 Not Available [facility] (Lab) [address] [place], [address], 08/27/2022 13:09:09 08/27/20 22 08/27/2022 CBC/C OMPLE TE BLD COUNT W/DIF F mean red cell hemoglobin 31.2 pg 27.0-3 3.0 Not Available [facility] (Lab) [address] [place], [address], 08/27/2022 13:09:09 08/27/20 22 08/27/2022 CBC/C OMPLE TE BLD COUNT W/DIF F mean RBC HGB concentratio n 32.2 g/dL 31.0-3 6.0 Not Available [facility] (Lab) [address] [place], [address], 08/27/2022 13:09:09 08/27/20 22 08/27/2022 CBC/C OMPLE TE BLD COUNT W/DIF F red cell distribution width 14.7 % 11.8-1 5.5 Not Available [facility] (Lab) [address] [place], [address], 08/27/2022 13:09:09 08/27/20 22 08/27/2022 CBC/C OMPLE TE BLD COUNT W/DIF F platelets 151 x10'3 /uL 150-40 0 Not Available [facility] (Lab) [address] [facility] [place], [address], 08/27/2022 13:09:09 08/27/20 22 08/27/2022 CBC/C OMPLE TE BLD COUNT W/DIF F mean platelet volume 13.0 fL 9.0-12 .4 high Not Available [facility] (Lab) [address] [place], [address], 08/27/2022 13:09:09 08/27/20 22 08/27/2022 CBC/C OMPLE TE BLD COUNT W/DIF F neutrophils 56.4 % 39.0-7 2.0 Not Available [facility] (Lab) [address] [place], [address], 08/27/2022 13:09:09 08/27/20 22 08/27/2022 CBC/C OMPLE TE BLD COUNT W/DIF F lymphocytes 24.8 % 16.0-4 7.0 Not Available [facility] (Lab) [address] [place], [address], 08/27/2022 13:09:09 08/27/20 22 08/27/2022 CBC/C OMPLE TE BLD COUNT W/DIF F monocytes 12.6 % 5.0-12 .0 high Not Available [facility] (Lab) [address] [place], [address], 08/27/2022 13:09:09 08/27/20 22 08/27/2022 CBC/C OMPLE TE BLD COUNT W/DIF F eosinophils 4.3 % 1.0-7. 0 Not Available [facility] (Lab) [address] [place], [address], 08/27/2022 13:09:09 08/27/20 22 08/27/2022 CBC/C OMPLE TE BLD COUNT W/DIF F basophils 1.5 % 0.0-2. 0 Not Available [facility] (Lab) [address] [place], [address], 08/27/2022 13:09:09 08/27/20 22 08/27/2022 CBC/C OMPLE TE BLD COUNT W/DIF F immature granulocytes 0.4 % 0.00-0 .50 Not Available [facility] (Lab) [address] [place], [address], 08/27/2022 13:09:09 08/27/20 22 08/27/2022 CBC/C OMPLE TE BLD COUNT W/DIF F neutrophils, absolute count 4.07 x10'3 /uL 1.5-8. 0 Not Available [facility] (Lab) [address] [place], [address], 08/27/2022 13:09:09 08/27/20 22 08/27/2022 CBC/C OMPLE TE BLD COUNT W/DIF F lymphocytes, absolute count 1.79 x10'3 /uL 1.07-3 .43 Not Available [facility] (Lab) [address] [place], [address], 08/27/2022 13:09:09 08/27/20 22 08/27/2022 CBC/C OMPLE TE BLD COUNT W/DIF F monocytes, absolute count 0.91 x10'3 /uL 0.29-0 .99 Not Available [facility] (Lab) [address] [place], [address], 08/27/2022 13:09:09 08/27/20 22 08/27/2022 CBC/C OMPLE TE BLD COUNT W/DIF F eosinophils, absolute count 0.31 x10'3 /uL 0.02-0 .53 Not Available [facility] (Lab) [address] [place], [address], 08/27/2022 13:09:09 08/27/20 22 08/27/2022 CBC/C OMPLE TE BLD COUNT W/DIF F basophils, absolute count 0.11 x10'3 /uL 0.01-0 .08 high Not Available [facility] (Lab) [address] [place], [address], 08/27/2022 13:09:09 08/27/20 22 08/27/2022 CBC/C OMPLE TE BLD COUNT W/DIF F immature granulocytes ,absolute 0.03 x10'3 /uL 0.00-0 .05 Not Available [facility] (Lab) [address] [place], [address], 08/27/2022 13:09:09 08/27/20 22 08/27/2022 CBC/C OMPLE TE BLD COUNT W/DIF F nucleated red blood cells 0.0 % -0 Not Available [facility] (Lab) [address] [place], [address], 08/27/2022 13:09:09 08/27/2008/27/2022 CBC/C OMPLE TE BLD COUNT W/DIF F NRBC# 0.00 x10'3 /uL Not Available [facility] (Lab) [address] [place], [address], 08/27/2022 13:09:09 01/16/20 23 01/15/2023 CBC/C OMPLE TE BLD COUNT W/DIF F white blood cells 9.4 x10'3 /uL 4.2-10 .8 Not Available [facility] (Lab) [address] [place], [address], 01/15/2023 12:06:22 01/16/20 23 01/15/2023 CBC/C OMPLE TE BLD COUNT W/DIF F red blood cells 4.46 x10'6 /uL 3.80-5 .20 Not Available [facility] (Lab) [address] [place], [address], 01/15/2023 12:06:22 01/16/20 23 01/15/2023 CBC/C OMPLE TE BLD COUNT W/DIF F hemoglobin 13.7 g/dL 12.0-1 5.6 Not Available [facility] (Lab) [address] [place], [address], 01/15/2023 12:06:22 01/16/20 23 01/15/2023 CBC/C OMPLE TE BLD COUNT W/DIF F hematocrit 43.4 % 35.7-4 5.7 Not Available [facility] (Lab) [address] [place], [address], 01/15/2023 12:06:22 01/16/20 23 01/15/2023 CBC/C OMPLE TE BLD COUNT W/DIF F mean red cell volume 97.3 fL 82.0-9 9.0 Not Available [facility] (Lab) [address] [place], [address], 01/15/2023 12:06:22 01/16/20 23 01/15/2023 CBC/C OMPLE TE BLD COUNT W/DIF F mean red cell hemoglobin 30.7 pg 27.0-3 3.0 Not Available [facility] (Lab) [address] [place], [address], 01/15/2023 12:06:22 01/16/20 23 01/15/2023 CBC/C OMPLE TE BLD COUNT W/DIF F mean RBC HGB concentratio n 31.6 g/dL 31.0-3 6.0 Not Available [facility] (Lab) [address] [place], [address], 01/15/2023 12:06:22 01/16/20 23 01/15/2023 CBC/C OMPLE TE BLD COUNT W/DIF F red cell distribution width 13.8 % 11.8-1 5.5 Not Available [facility] (Lab) [address] [place], [address], 01/15/2023 12:06:22 01/16/20 23 01/15/2023 CBC/C OMPLE TE BLD COUNT W/DIF F platelets 147 x10'3 /uL 150-40 0 low Not Available [facility] (Lab) [address] [place], [address], 01/15/2023 12:06:22 01/16/20 23 01/15/2023 CBC/C OMPLE TE BLD COUNT W/DIF F mean platelet volume 12.2 fL 9.0-12 .4 Not Available [facility] (Lab) [address] [place], [address], 01/15/2023 12:06:22 01/16/20 23 01/15/2023 CBC/C OMPLE TE BLD COUNT W/DIF F neutrophils 65.6 % 39.0-7 2.0 Not Available [facility] (Lab) [address] [place], [address], 01/15/2023 12:06:22 01/16/20 23 01/15/2023 CBC/C OMPLE TE BLD COUNT W/DIF F lymphocytes 17.1 % 16.0-4 7.0 Not Available [facility] (Lab) [address] [place], [address], 01/15/2023 12:06:22 01/16/20 23 01/15/2023 CBC/C OMPLE TE BLD COUNT W/DIF F monocytes 12.3 % 5.0-12 .0 high Not Available [facility] (Lab) [address] [place], [address], 01/15/2023 12:06:22 01/16/20 23 01/15/2023 CBC/C OMPLE TE BLD COUNT W/DIF F eosinophils 3.8 % 1.0-7. 0 Not Available [facility] (Lab) [address] [place], [address], 01/15/2023 12:06:22 01/16/20 23 01/15/2023 CBC/C OMPLE TE BLD COUNT W/DIF F basophils 0.9 % 0.0-2. 0 Not Available [facility] (Lab) [address] [place], [address], 01/15/2023 12:06:22 01/16/20 23 01/15/2023 CBC/C OMPLE TE BLD COUNT W/DIF F immature granulocytes 0.3 % 0.00-0 .50 Not Available [facility] (Lab) [address] [place], [address], 01/15/2023 12:06:22 01/16/20 23 01/15/2023 CBC/C OMPLE TE BLD COUNT W/DIF F neutrophils, absolute count 6.15 x10'3 /uL 1.5-8. 0 Not Available [facility] (Lab) [address] [place], [address], 01/15/2023 12:06:22 01/16/20 23 01/15/2023 CBC/C OMPLE TE BLD COUNT W/DIF F lymphocytes, absolute count 1.60 x10'3 /uL 1.07-3 .43 Not Available [facility] (Lab) [address] [place], [address], 01/15/2023 12:06:22 01/16/20 23 01/15/2023 CBC/C OMPLE TE BLD COUNT W/DIF F monocytes, absolute count 1.15 x10'3 /uL 0.29-0 .99 high Not Available [facility] (Lab) [address] [place], [address], 01/15/2023 12:06:22 01/16/20 23 01/15/2023 CBC/C OMPLE TE BLD COUNT W/DIF F eosinophils, absolute count 0.36 x10'3 /uL 0.02-0 .53 Not Available [facility] (Lab) [address] [place], [address], 01/15/2023 12:06:22 01/16/20 23 01/15/2023 CBC/C OMPLE TE BLD COUNT W/DIF F basophils, absolute count 0.08 x10'3 /uL 0.01-0 .08 Not Available [facility] (Lab) [address] [place], [address], 01/15/2023 12:06:22 01/16/20 23 01/15/2023 CBC/C OMPLE TE BLD COUNT W/DIF F immature granulocytes ,absolute 0.03 x10'3 /uL 0.00-0 .05 Not Available [facility] (Lab) [address] [place], [address], 01/15/2023 12:06:22 01/16/20 23 01/15/2023 CBC/C OMPLE TE BLD COUNT W/DIF F nucleated red blood cells 0.0 % -0 Not Available [facility] (Lab) [address] [facility] [place], [address], 01/15/2023 12:06:22 01/16/20 23 01/15/2023 CBC/C OMPLE TE BLD COUNT W/DIF F NRBC# 0.00 x10'3 /uL Not Available [facility] (Lab) [address] [place], [address], 01/15/2023 12:06:22 01/16/20 23 01/15/2023 COMPR EHENS JONATHAN METAB OLIC PANEL sodium 140 mmol/ L 137-14 5 Not Available [facility] (Lab) [address] [place], [address], 01/15/2023 12:24:31 01/16/20 23 01/15/2023 COMPR EHENS JONATHAN METAB OLIC PANEL potassium 4.3 mmol/ L 3.5-5. 1 Not Available [facility] (Lab) [address] [place], [address], 01/15/2023 12:24:31 01/16/20 23 01/15/2023 COMPR EHENS JONATHAN METAB OLIC PANEL chloride 106 mmol/ L 98-107 Not Available [facility] (Lab) [address] [place], [address], 01/15/2023 12:24:31 01/16/20 23 01/15/2023 COMPR EHENS JONATHAN METAB OLIC PANEL carbon dioxide 27 mmol/ L 22-30 Not Available [facility] (Lab) [address] [place], [address], 01/15/2023 12:24:31 01/16/20 23 01/15/2023 COMPR EHENS JONATHAN METAB OLIC PANEL anion gap 11.3 mmol/ L 14-22 low Not Available [facility] (Lab) [address] [place], [address], 01/15/2023 12:24:31 01/16/20 23 01/15/2023 COMPR EHENS JONATHAN METAB OLIC PANEL glucose 112 mg/dL 70-99 high Not Available [facility] (Lab) [address] [place], [address], 01/15/2023 12:24:31 01/16/20 23 01/15/2023 COMPR EHENS JONATHAN METAB OLIC PANEL BUN 17 mg/dL 8-19 Not Available [facility] (Lab) [address] [place], [address], 01/15/2023 12:24:31 01/16/20 23 01/15/2023 COMPR EHENS JONATHAN METAB OLIC PANEL creatinine 0.99 mg/dL 0.66-1 .25 Not Available [facility] (Lab) [address] [place], [address], 01/15/2023 12:24:31 01/16/20 23 01/15/2023 COMPR EHENS JONATHAN METAB OLIC PANEL GFR 55 Refer ence Range : [place] ge GFR Healt hy Adult : >60 [...] calcu lator is avail able on the [facility] websi te: [email or web address] :[email or web address] rg/pr ofess ional s/kdo qi/gf r_cal culat or Not Available [facility] (Lab) [address] [place], [address], 01/15/2023 12:24:31 01/16/20 23 01/15/2023 COMPR EHENS JONATHAN METAB OLIC PANEL alkaline phosphatase 72 U/L 38-126 Not Available [facility] (Lab) [address] [place], [address], 01/15/2023 12:24:31 01/16/20 23 01/15/2023 COMPR EHENS JONATHAN METAB OLIC PANEL alanine aminotransfe rase 12 U/L 0-35 Not Available [facility] (Lab) [address] [place], [address], 01/15/2023 12:24:31 01/16/20 23 01/15/2023 COMPR EHENS JONATHAN METAB OLIC PANEL aspartate aminotransfe rase 31 U/L 15-37 Not Available [facility] (Lab) [address] [place], [address], 01/15/2023 12:24:31 01/16/20 23 01/15/2023 COMPR EHENS JONATHAN METAB OLIC PANEL bilirubin, total 0.90 mg/dL 0.20-1 .30 Not Available [facility] (Lab) [address] [place], [address], 01/15/2023 12:24:31 01/16/20 23 01/15/2023 COMPR EHENS JONATHAN METAB OLIC PANEL calcium 9.8 mg/dL 8.4-10 .2 Not Available [facility] (Lab) [address] [place], [address], 01/15/2023 12:24:31 01/16/20 23 01/15/2023 COMPR EHENS JONATHAN METAB OLIC PANEL total protein 6.8 g/dL 6.3-8. 2 Not Available [facility] (Lab) [address] [place], [address], 01/15/2023 12:24:31 01/16/20 23 01/15/2023 COMPR EHENS JONATHAN METAB OLIC PANEL albumin 4.3 g/dL 3.0-4. 4 Not Available [facility] (Lab) [address] [place], [address], 01/15/2023 12:24:31 01/16/20 23 01/15/2023 COMPR EHENS JONATHAN METAB OLIC PANEL globulin 2.5 g/dL 2.6-4. 2 low Not Available [facility] (Lab) [address] [place], [address], 01/15/2023 12:24:31 01/16/20 23 01/15/2023 COMPR EHENS JONATHAN METAB OLIC PANEL A/G ratio 1.7 ratio 1.0-2. 0 Not Available [facility] (Lab) [address] [place], [address], 01/15/2023 12:24:31 01/16/20 23 01/15/2023 LIPID PANEL cholesterol 127 mg/dL 140-19 9 low NIH OSWALDO NSUS RECOM MENDA TION FOR PAWAN STERO L: ADULT CHILD LOW RISK: <200 <170 BORDE RLINE : <200- 239 ----- HIGH RISK: >240 >200 Not Available [facility] (Lab) [address] [place], [address], 01/15/2023 12:24:49 01/16/20 23 01/15/2023 LIPID PANEL triglyceride s 185 mg/dL 0-150 high NIH OSWALDO NSUS REPOR T RECOM MENDA TION FOR TRIGL YCERI ZORAIDA: ADULT CHILD LOW RISK: <150 ----- BODER LINE: 150-1 99 ----- HIGH RISK: >200 ----- Not Available [facility] (Lab) [address] [place], [address], 01/15/2023 12:24:49 01/16/20 23 01/15/2023 LIPID PANEL HDL cholesterol 57 mg/dL 40- Not Available [facility] (Lab) [address] [place], [address], 01/15/2023 12:24:49 01/16/20 23 01/15/2023 LIPID PANEL [...] WILL NOT BE REPOR RUI. Not Available [facility] (Lab) [address] [place], [address], 01/15/2023 12:24:49 01/16/20 23 01/15/2023 T4 FREE free T4 1.29 NG/dL 0.78-2 .19 Not Available [facility] (Lab) [address] [place], [address], 01/15/2023 12:31:42 01/16/20 23 01/15/2023 TSH thyroid-stim ulating hormone 0.677 uIU/m L 0.465- 4.680 Not Available [facility] (Lab) [address] [place], [address], 01/15/2023 12:39:04 01/16/20 23 01/15/2023 HEMOG LOBIN A1C HA1C 6.0 % 4.0-6. 0 Diabe harman Scree roma Crite adi: <5.7% Consi stent with absen ce of diabe harman 5.7-6 .4% Consi stent with incre ased risk for diabe harman (pred iabet es) >OR=6 .5% Consi stent with diabe harman REFER ENCE: Diabe harman Care 2016, 39(Arnold ppl.1 ):s13 -s22 Not Available [facility] (Lab) [address] [place], [address], 01/15/2023 13:11:47 01/16/20 23 01/15/2023 VITAM IN B12 (MADDY DOMENICA ) vb12 677 pg/mL 239-93 1 Not Available [facility] (Lab) [address] [place], [address], 01/15/2023 18:31:01 01/16/20 23 01/15/2023 FOLAT E, SERUM /PLAS MA folate 5.65 NG/mL 2.76-2 0.0 Not Available [facility] (Lab) [address] [place], [address], 01/15/2023 18:31:05 01/16/20 23 01/15/2023 MICRO ALBUM IN RANDO M URINE microalbumin , urine 36.5 mg/L 0.0-16 .6 high Not Available [facility] (Lab) [address] [place], [address], 01/15/2023 18:38:15 04/23/20 23 04/23/2023 LIPID PANEL cholesterol 123 mg/dL 140-19 9 low NIH OSWALDO NSUS RECOM MENDA TION FOR PAWAN STERO L: ADULT CHILD LOW RISK: <200 <170 BORDE RLINE : <200- 239 ----- HIGH RISK: >240 >200 Not Available [facility] (Lab) [address] [place], [address], 04/23/2023 10:23:37 04/23/20 23 04/23/2023 LIPID PANEL triglyceride s 138 mg/dL 0-150 NIH OSWALDO NSUS REPOR T RECOM MENDA TION FOR TRIGL YCERI ZORAIDA: ADULT CHILD LOW RISK: <150 ----- BODER LINE: 150-1 99 ----- HIGH RISK: >200 ----- Not Available [facility] (Lab) [address] [place], [address], 04/23/2023 10:23:37 04/23/20 23 04/23/2023 LIPID PANEL HDL cholesterol 52 mg/dL 40- Not Available [facility] (Lab) [address] [place] [address], [address], 04/23/2023 10:23:37 04/23/20 23 04/23/2023 LIPID PANEL [...] WILL NOT BE REPOR RUI. Not Available [facility] (Lab) [address] [place], [address], 04/23/2023 10:23:37 04/23/20 23 04/23/2023 COMPR EHENS JONATHAN METAB OLIC PANEL sodium 141 mmol/ L 137-14 5 Not Available [facility] (Lab) [address] [place], [address], 04/23/2023 10:23:48 04/23/20 23 04/23/2023 COMPR EHENS JONATHAN METAB OLIC PANEL potassium 4.5 mmol/ L 3.5-5. 1 Not Available [facility] (Lab) [address] [place], [address], 04/23/2023 10:23:48 04/23/20 23 04/23/2023 COMPR EHENS JONATHAN METAB OLIC PANEL chloride 104 mmol/ L 98-107 Not Available [facility] (Lab) [address] [place], [address], 04/23/2023 10:23:48 04/23/20 23 04/23/2023 COMPR EHENS JONATHAN METAB OLIC PANEL carbon dioxide 30 mmol/ L 22-30 Not Available [facility] (Lab) [address] [place], [address], 04/23/2023 10:23:48 04/23/20 23 04/23/2023 COMPR EHENS JONATHAN METAB OLIC PANEL anion gap 11.5 mmol/ L 14-22 low Not Available [facility] (Lab) [address] [place], [address], 04/23/2023 10:23:48 04/23/20 23 04/23/2023 COMPR EHENS JONATHAN METAB OLIC PANEL glucose 103 mg/dL 70-99 high Not Available [facility] (Lab) [address] [place], [address], 04/23/2023 10:23:48 04/23/20 23 04/23/2023 COMPR EHENS JNOATHAN METAB OLIC PANEL BUN 24 mg/dL 8-19 high Not Available [facility] (Lab) [address] [place], [address], 04/23/2023 10:23:48 04/23/20 23 04/23/2023 COMPR EHENS JONATHAN METAB OLIC PANEL creatinine 1.05 mg/dL 0.66-1 .25 Not Available [facility] (Lab) [address] [place], [address], 04/23/2023 10:23:48 04/23/20 23 04/23/2023 COMPR EHENS JONATHAN METAB OLIC PANEL GFR 52 Refer ence Range : [place] ge GFR Healt hy Adult : >60 [...] calcu lator is avail able on the [facility] websi te: https ://rigoberto aguila.ulysses benz/salud guillenal s/kdo qi/gf r_cal culat or Not Available [facility] (Lab) [address] [place], [address], 04/23/2023 10:23:48 04/23/20 23 04/23/2023 COMPR EHENS JONATHAN METAB OLIC PANEL alkaline phosphatase 63 U/L 38-126 Not Available [facility] (Lab) [address] [place], [address], 04/23/2023 10:23:48 04/23/20 23 04/23/2023 COMPR EHENS JONATHAN METAB OLIC PANEL alanine aminotransfe rase 27 U/L 0-35 Not Available [facility] (Lab) [address] [place], [address], 04/23/2023 10:23:48 04/23/20 23 04/23/2023 COMPR EHENS JONATHAN METAB OLIC PANEL aspartate aminotransfe rase 41 U/L 15-37 high Not Available [facility] (Lab) [address] [place], [address], 04/23/2023 10:23:48 04/23/20 23 04/23/2023 COMPR EHENS JONATHAN METAB OLIC PANEL bilirubin, total 0.40 mg/dL 0.20-1 .30 Not Available [facility] (Lab) [address] [place], [address], 04/23/2023 10:23:48 04/23/20 23 04/23/2023 COMPR EHENS JONATHAN METAB OLIC PANEL calcium 9.1 mg/dL 8.4-10 .2 Not Available [facility] (Lab) [address] [place], [address], 04/23/2023 10:23:48 04/23/20 23 04/23/2023 COMPR EHENS JONATHAN METAB OLIC PANEL total protein 6.3 g/dL 6.3-8. 2 Not Available [facility] (Lab) [address] [place], [address], 04/23/2023 10:23:48 04/23/20 23 04/23/2023 COMPR EHENS JONATHAN METAB OLIC PANEL albumin 3.8 g/dL 3.0-4. 4 Not Available [facility] (Lab) [address] [place], [address], 04/23/2023 10:23:48 04/23/20 23 04/23/2023 COMPR EHENS JONATHAN METAB OLIC PANEL globulin 2.5 g/dL 2.6-4. 2 low Not Available [facility] (Lab) [address] [place], [address], 04/23/2023 10:23:48 04/23/20 23 04/23/2023 COMPR EHENS JONATHAN METAB OLIC PANEL A/G ratio 1.5 ratio 1.0-2. 0 Not Available [facility] (Lab) [address] [place], [address], 04/23/2023 10:23:48 04/23/20 23 04/23/2023 MICRO ALBUM IN RANDO M URINE microalbumin , urine <6.0 mg/L 0.0-16 .6 Not Available [facility] (Lab) [address] [place], [address], 04/23/2023 10:27:21 04/23/20 23 04/23/2023 CBC/C OMPLE TE BLD COUNT W/DIF F white blood cells 7.2 x10'3 /uL 4.2-10 .8 Not Available [facility] (Lab) [address] [place], [address], 04/23/2023 10:29:24 04/23/20 23 04/23/2023 CBC/C OMPLE TE BLD COUNT W/DIF F red blood cells 4.20 x10'6 /uL 3.80-5 .20 Not Available [facility] (Lab) [address] [place], [address], 04/23/2023 10:29:24 04/23/20 23 04/23/2023 CBC/C OMPLE TE BLD COUNT W/DIF F hemoglobin 12.8 g/dL 12.0-1 5.6 Not Available [facility] (Lab) [address] [place], [address], 04/23/2023 10:29:24 04/23/20 23 04/23/2023 CBC/C OMPLE TE BLD COUNT W/DIF F hematocrit 39.9 % 35.7-4 5.7 Not Available [facility] (Lab) [address] [place], [address], 04/23/2023 10:29:24 04/23/20 23 04/23/2023 CBC/C OMPLE TE BLD COUNT W/DIF F mean red cell volume 95.0 fL 82.0-9 9.0 Not Available [facility] (Lab) [address] [place], [address], 04/23/2023 10:29:24 04/23/20 23 04/23/2023 CBC/C OMPLE TE BLD COUNT W/DIF F mean red cell hemoglobin 30.5 pg 27.0-3 3.0 Not Available [facility] (Lab) [address] [place], [address], 04/23/2023 10:29:24 04/23/20 23 04/23/2023 CBC/C OMPLE TE BLD COUNT W/DIF F mean RBC HGB concentratio n 32.1 g/dL 31.0-3 6.0 Not Available [facility] (Lab) [address] [place], [address], 04/23/2023 10:29:24 04/23/20 23 04/23/2023 CBC/C OMPLE TE BLD COUNT W/DIF F red cell distribution width 13.0 % 11.8-1 5.5 Not Available [facility] (Lab) [address] [place], [address], 04/23/2023 10:29:24 04/23/20 23 04/23/2023 CBC/C OMPLE TE BLD COUNT W/DIF F platelets 119 x10'3 /uL 150-40 0 low Not Available [facility] (Lab) [address] [place], [address], 04/23/2023 10:29:24 04/23/20 23 04/23/2023 CBC/C OMPLE TE BLD COUNT W/DIF F mean platelet volume 12.9 fL 9.0-12 .4 high Not Available [facility] (Lab) [address] [place], [address], 04/23/2023 10:29:24 04/23/20 23 04/23/2023 CBC/C OMPLE TE BLD COUNT W/DIF F neutrophils 49.0 % 39.0-7 2.0 Not Available [facility] (Lab) [address] [place], [address], 04/23/2023 10:29:24 04/23/20 23 04/23/2023 CBC/C OMPLE TE BLD COUNT W/DIF F lymphocytes 28.2 % 16.0-4 7.0 Not Available [facility] (Lab) [address] [place], [address], 04/23/2023 10:29:24 04/23/20 23 04/23/2023 CBC/C OMPLE TE BLD COUNT W/DIF F monocytes 15.8 % 5.0-12 .0 high Not Available [facility] (Lab) [address] [place], [address], 04/23/2023 10:29:24 04/23/20 23 04/23/2023 CBC/C OMPLE TE BLD COUNT W/DIF F eosinophils 5.7 % 1.0-7. 0 Not Available [facility] (Lab) [address] [place], [address], 04/23/2023 10:29:24 04/23/20 23 04/23/2023 CBC/C OMPLE TE BLD COUNT W/DIF F basophils 1.0 % 0.0-2. 0 Not Available [facility] (Lab) [address] [place], [address], 04/23/2023 10:29:24 04/23/20 23 04/23/2023 CBC/C OMPLE TE BLD COUNT W/DIF F immature granulocytes 0.3 % 0.00-0 .50 Not Available [facility] (Lab) [address] [place], [address], 04/23/2023 10:29:24 04/23/20 23 04/23/2023 CBC/C OMPLE TE BLD COUNT W/DIF F neutrophils, absolute count 3.55 x10'3 /uL 1.5-8. 0 Not Available [facility] (Lab) [address] [place], [address], 04/23/2023 10:29:24 04/23/20 23 04/23/2023 CBC/C OMPLE TE BLD COUNT W/DIF F lymphocytes, absolute count 2.04 x10'3 /uL 1.07-3 .43 Not Available [facility] (Lab) [address] [place], [address], 04/23/2023 10:29:24 04/23/20 23 04/23/2023 CBC/C OMPLE TE BLD COUNT W/DIF F monocytes, absolute count 1.14 x10'3 /uL 0.29-0 .99 high Not Available [facility] (Lab) [address] [place], [address], 04/23/2023 10:29:24 04/23/20 23 04/23/2023 CBC/C OMPLE TE BLD COUNT W/DIF F eosinophils, absolute count 0.41 x10'3 /uL 0.02-0 .53 Not Available [facility] (Lab) [address] [place], [address], 04/23/2023 10:29:24 04/23/20 23 04/23/2023 CBC/C OMPLE TE BLD COUNT W/DIF F basophils, absolute count 0.07 x10'3 /uL 0.01-0 .08 Not Available [facility] (Lab) [address] [place], [address], 04/23/2023 10:29:24 04/23/20 23 04/23/2023 CBC/C OMPLE TE BLD COUNT W/DIF F immature granulocytes ,absolute 0.02 x10'3 /uL 0.00-0 .05 Not Available [facility] (Lab) [address] [place], [address], 04/23/2023 10:29:24 04/23/20 23 04/23/2023 CBC/C OMPLE TE BLD COUNT W/DIF F nucleated red blood cells 0.0 % -0 Not Available [facility] (Lab) [address] [place], [address], 04/23/2023 10:29:24 04/23/20 23 04/23/2023 CBC/C OMPLE TE BLD COUNT W/DIF F NRBC# 0.00 x10'3 /uL Not Available [facility] (Lab) [address] [place], [address], 04/23/2023 10:29:24 04/23/20 23 04/23/2023 T4 FREE free T4 1.17 NG/dL 0.78-2 .19 Not Available [facility] (Lab) [address] [place], [address], 04/23/2023 10:32:56 04/23/20 23 04/23/2023 TSH thyroid-stim ulating hormone 0.634 uIU/m L 0.465- 4.680 Not Available [facility] (Lab) [address] [place], [address], 04/23/2023 11:00:11 04/23/20 23 04/23/2023 HEMOG LOBIN A1C HA1C 5.8 % 4.0-6. 0 Diabe harman Scree roma Crite adi: <5.7% Consi stent with absen ce of diabe harman 5.7-6 .4% Consi stent with incre ased risk for diabe harman (pred iabet es) >OR=6 .5% Consi stent with diabe harman REFER ENCE: Diabe harman Care 2016, 39(Arnold ppl.1 ):s13 -s22 Not Available [facility] (Lab) [address] [place], [address], 04/23/2023 12:21:03 09/23/20 22 09/23/2022 CT, abdom en + pelvi s, w/ contr ast No observ ation record ed. [id number] [facility] (Radiology) [address] [place], [address], 12/25/2022 05:07:19 09/23/20 22 09/23/2022 CT, abdom en + pelvi s, w/ contr ast [facility] [place] [address] [place] [address] Patien t Name: ARUNA PANTOJA F Access ion #: [id number] Sex: F : 1949 0 Locati [...] 4 [facility] t Name: ARUNA PANTOJA NE F Access ion #: [id number] Sex: F : 1949 0 Exam [...] acute proces s Page 2 of 4 [facility] t Name: ARUNA PANTOJA F Access ion #: [id number] Sex: F : 1949 0 Exam [...] ly signed by: Page 3 of 4 [facility] t Name: ARUNA PANTOJA F Access ion #: [id number] Sex: F : 1949 0 Exam Date: 2021 8:40 AM Exam Name: CT ABDOME N PELVIS W Admitt ing Diagno sis(es ): Wilfrid azevedo MD Signed Date: 2021 5:06 PM (CT) Dictat ed by: Wilfrid azevedo MD DD: 2021 5:06 PM (CT) DT: 2021 5:06 PM (CT) Page 4 of 4 [id number] [facility] (Imaging) [address] [place], [address], 12/25/2022 05:07:19 01/15/20 23 01/14/2023 XR, abdom en No observ ation record ed. [address], [place], [address], 01/15/2023 11:16:33 03/31/20 23 03/31/2023 , echo ardio gram No observ ation record ed. [address] [facility] [address] , [place], [address], 05/27/2023 12:42:39 04/23/20 24 04/23/2024 imagi ng/di agnos tic resul t No observ ation record ed. [facility] [address], [place], [address], 04/23/2024 12:03:13 01/15/20 25 01/14/2025 imagi ng/di agnos tic resul t No observ ation record ed. [facility] [address] , [place], [address], 01/14/2025 18:14:57 Result Notes Documentation Provider Name and Address Organization Details Recorded Time Ct, Abdomen + Pelvis, W/ Contrast : [facility] [address] [place] [address] Patient Name: TIM PANTOJA Sex: F : 1950 Location: [facility] Attending Physician: BRODY COLLADO Ordering Physician: BRODY [...] Isovue 370 intravenous Page 1 of 4 [facility] Patient Name: TIM PANTOJA Sex: F : [...] No acute process Page 2 of 4 [facility] Patient Name: TIM PANTOJA Sex: F : [...] electronically signed by: Page 3 of 4 [facility] Patient Name: TIM PANTOJA Sex: F : 1950 Exam Date: 09/23/2022 8:40 AM Exam Name: CT ABDOMEN PELVIS W Admitting Diagnosis(es): Wilfrid Solis MD Signed Date: 09/23/2022 5:06 PM (CT) Dictated by: Wilfrid Solis MD (CT) (CT) Page 4 of 4 Not Available [facility] 12/25/2022 05:07:24 Problems Name Problem SNOMED Code Status Onset Date Resolution Date Notes Provider Name and Address Organization Details Recorded Time Chronic kidney disease 936049795 Active 2022 Not Available [facility] 4 10:26:19 Near syncope 921364365 Active 2022 Not Available [facility] 4 10:26:18 Excess panniculus of abdomen 0714186475591 Active 2022 Not Available [facility] 4 10:26:18 Seasonal allergy 866074983 Active 2022 Not Available [facility] 4 10:26:19 Small bowel obstructio n 143684573 Active 2022 Not Available [facility] 4 10:26:18 Transient cerebral ischemia 486196526 Active 2022 Not Available [facility] 4 10:26:18 Abdominal discomfort 10414095 Active 2022 Not Available [facility] 4 10:26:18 Moderate recurrent major depression 41858009 Active 2022 Not Available [facility] 4 10:26:18 Thrombocyt openic disorder 903818847 Active 2022 Not Available [facility] 4 10:26:18 Pain of left wrist 5613721813992 02 Active 2022 Not Available [facility] 4 10:26:18 Skin lesion 16068243 Active 2022 Not Available [facility] 4 10:26:19 Pain of toe of left foot 9858921914066 08 Active 2022 Not Available [facility] 4 10:26:18 Bunion 803891171 Active 2022 Not Available [facility] 4 10:26:18 Diabetes mellitus 39906248 Active 2022 Not Available [facility] 4 10:26:19 Dystrophia unguium 64318490 Active 2022 Not Available [facility] 4 10:26:19 COVID-19 831686593 Active 2022 Not Available [facility] 4 10:26:19 Upper respirator y infection 85367785 Active 2022 Not Available [facility] 4 10:26:19 Tailor's bunion of right foot 5648483116476 109 Active 2019 Not Available [facility] 4 10:26:18 History of diverticul itis 5681216279460 00 Active 2020 Not Available [facility] 4 10:26:18 Cellulitis 834425749 Active Not Available [facility] 4 10:26:18 Hyperchole sterolemia 99308583 Active Not Available [facility] 4 10:26:18 Constipati on 13287552 Active 2022 Not Available [facility] 4 10:26:18 Pain of right elbow joint 2220459686457 9109 Active 2021 Not Available [facility] 4 10:26:18 Blood glucose outside reference range 148396311 Active Not Available [facility] 4 10:26:18 Localized, 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 919963259 Active 2019 Not Available [facility] 4 10:26:18 Tibialis posterior tendinitis 217780523 Active Not Available [facility] 4 10:26:18 Dog bite - wound 606268098 Active Not Available [facility] 4 10:26:18 Hypertrigl yceridemia 465008822 Active 2021 Not Available [facility] 4 10:26:18 Diverticul itis 917534075 Active 2016 Not Available [facility] 4 10:26:18 Localized, primary osteoarthr itis of elbow 059644776 Active Not Available [facility] 4 10:26:18 Type 2 diabetes mellitus without complicati on 995906897 Active 2019 Not Available [facility] 4 10:26:18 Pain in left foot 6312213989965 07 Active Not Available [facility] 4 10:26:18 Depressive disorder 38883782 Active Not Available [facility] 4 10:26:18 Sinusitis 35877471 Active Not Available [facility] of [facility] 4 10:26:18 Osteoarthr itis 694476820 Active Not Available On license of [facility] 4 10:26:18 Diaphragma tic hernia 13766841 Active Not Available [facility] 4 10:26:18 Pharyngiti s 461862933 Active Not Available [facility] 4 10:26:18 Body mass index 40+ - severely obese 782189359 Active 2017 Not Available [facility] 4 10:26:18 Hypothyroi dism 52091304 Active Not Available [facility] 4 10:26:18 Bunion 962657305 Active 2019 Not Available [facility] 4 10:26:18 History of laparoscop ic adjustable gastric banding 268897743 Active 2020 Not Available [facility] 4 10:26:18 Arthritis of elbow 555125038 Active 2021 Not Available [facility] 4 10:26:19 Pain of shoulder region 37030024 Active 2021 Not Available [facility] 4 10:26:19 Pain of shoulder region 49325241 Active 2021 Not Available [facility] 4 10:26:19 Anxiety 72441154 Active 2021 Not Available [facility] license of [facility] 4 10:26:19 Cough 37952400 Active Not Available [facility] 4 10:26:19 Talipes planus 93444575 Active Not Available [facility] license of [facility] 4 10:26:19 Hyperlipid emia 35548963 Active Not Available On license of [facility] 4 10:26:19 Essential hypertensi on 22863369 Active 2016 Not Available On license of [facility] 4 10:26:19 Obstructiv e sleep apnea syndrome 05553955 Active 2016 Not Available [facility] of [facility] 4 10:26:19 Bursitis 59008340 Active Not Available On license of [facility] 4 10:26:19 Fatigue 18087228 Active Not Available [facility] license of [facility] 4 10:26:19 Problem Notes None recorded. Procedures Surgical History Date Name Laterality Status Provider Name and Address Organization Details Recorded Time 06/03/20 23 Nail Debridement completed Massimo Porter DPM [address] [facility] [place] [address], [place], [address], [employer] 06/03/2023 10:21:02 04/24/20 23 Medicare Wellness CPT Code, subsequent completed Opal Hyde RN [employer] 04/24/2023 14:31:12 07/04/20 22 EGD completed Not Available On license of [facility] 12/25/2022 04:42:48 07/06/20 21 Most Recent Bone Density completed Not Available On license of [facility] 12/25/2022 04:42:42 01/24/20 21 abdominoplasty completed Not Available On license of [facility] 12/25/2022 04:42:48 07/01/20 13 Date of Last Colonoscopy completed Not Available On license of [facility] 12/25/2022 04:42:42 Abdominal Surgery completed Not Available On license of [facility] 12/25/2022 04:42:48 Cataract Surgery completed PRIYANKA Adams [employer] 01/16/2023 11:35:24 Imaging Results None recorded. Procedure Notes None recorded. Medical Equipment None Reported. Allergies Allergen ID Allergen Name Allergen Category Reaction Reaction Severity Criticality Documentation Date Start Date Code Code System Note Provider Name and Address Organization Details Recorded Time 8753 Demerol medicatio n vomiting Not available Not available 12/25/2022 66644 1 RxNorm Not Available On license of [facility] 3 05:06:32 8754 codeine medicatio n vomiting Not available Not available 12/25/2022 2670 RxNorm Not Available On license of [facility] 3 05:06:32 Medications Name Sig Start Date [...] administ ered by the provider 01/[address] [facility]: [id number]- Not Available Not Available [...] Not Available Not Available No t Available [employer] Ultra2 Meter kit USE DIRECTED TO TEST [...] Heart rate Body temperature Body weight Systolic And Diastolic Provider Name and Address Organization Details Last Updated DateTime 3 27.8 kg/m2 154.94 cm 97 % 97 % 72 /min 97.2 [degF] 10974.0 8 g 130/80 mm[Hg] Not Available [facility] 3 04:46:48 Date Recorded Body height Body mass index (BMI) Body weight Body temperature Heart rate Systolic And Diastolic Provider Name and Address Organization Details Last Updated DateTime 3 154.94 cm 27.2 kg/m2 02733.3 g 97.1 [degF] 66 /min 114/66 mm[Hg] PRIYANKA Adams [employer] [facility] [employer] 3 11:36:55 Date Recorded Body height Body mass index (BMI) Body weight Body temperature Heart rate Systolic And Diastolic Provider Name and Address Organization Details Last Updated DateTime 3 154.94 cm 27.9 kg/m2 38233.8 7 g 97.2 [degF] 78 /min 116/60 mm[Hg] Cyndy Garcia [employer] [facility] 3 14:11:04 Date Recorded Body height Body mass index (BMI) Body weight Heart rate Respiratory rate Oxygen saturation Oxygen saturation in Arterial blood by Pulse oximetry Systolic And Diastolic Provider Name and Address Organization Details Last Updated DateTime 3 154.94 cm 27 kg/m2 16611.7 1 g 65 /min 14 /min 98 % 98 % 115/74 mm[Hg] Nydia Lewis [employer] 3 09:44:05 Date Recorded Body mass index (BMI) Body height Heart rate Body temperature Body weight Systolic And Diastolic Provider Name and Address Organization Details Last Updated DateTime 2 27.6 kg/m2 154.94 cm 90 /min 97.7 [degF] 27591.4 9 g 110/66 mm[Hg] Not Available [facility] 3 04:46:48 Social History Question Answer Notes LastModified by Organizat ion Details LastModified Time Tobacco Smoking Status Never Smoker Not Available [facility] 12/25/2022 04:20:45 Do You Have An Advance Directive? No MIGRATION.51484 23685 Information not available 12/25/2022 Are You Blind Or Do You Have Difficulty Seeing? No MIGRATION.82965 36376 Information not available 12/25/2022 What Is Your Level Of Caffeine Consumption? Moderate MIGRATION.90056 69329 Information not available 12/25/2022 How Much Tobacco Do You Chew? None MIGRATION.14497 96020 Information not available 12/25/2022 In The 14 Days Before Symptom Onset, Have You Had Close Contact With A Laboratory-confir med COVID-19 While That Case Was Ill? No MIGRATION.91501 35215 Information not available 12/25/2022 In The 14 Days Before Symptom Onset, Have You Had Close Contact With A Person Who Is Under Investigation For COVID-19 While That Person Was Ill? No MIGRATION.26947 37615 Information not available 12/25/2022 Are You Deaf Or Do You Have Serious Difficulty Hearing? No MIGRATION.48179 23287 Information not available 12/25/2022 What Type Of Diet Are You Following? REGULAR MIGRATION.62722 15120 Information not available 12/25/2022 Which Illicit Or Recreational Drugs Have You Used? Marijuana Information not available 01/16/2023 What Is The Highest Grade Or Level Of School You Have Completed Or The Highest Degree You Have Received? LI12869-8 MIGRATION.57312 06778 Information not available 12/25/2022 Have There Been Any Changes To Your Family Or Social Situation? No MIGRATION.43736 82650 Information not available 12/25/2022 What Is The Fluoride Status Of Your Home? Unknown MIGRATION.10834 78136 Information not available 12/25/2022 Are There Any Guns Present In Your Home? Yes MIGRATION.72645 01090 Information not available 12/25/2022 Do You Use Insect Repellent Routinely? No MIGRATION.96683 83513 Information not available 12/25/2022 Where Do You Live? [place] MIGRATION.02334 30241 Information not available 12/25/2022 Do You Have A Medical Power Of Director Of Direct Marketing? No MIGRATION.70121 98158 Information not available 12/25/2022 What Was The Date Of Your Most Recent Tobacco Screening? 06/03/2023 [email or web address] Information not available 06/03/2023 Do You Have Any Pets? Yes MIGRATION.99362 30162 Information not available 12/25/2022 What Is Your Relationship Status? MIGRATION.28427 50720 Information not available 12/25/2022 Do You Use Your Seat Belt Or Car Seat Routinely? Yes MIGRATION.54103 92955 Information not available 12/25/2022 Do You Have Smoke And Carbon Monoxide Detectors In Your Home? Yes MIGRATION.09919 67540 Information not available 12/25/2022 Are You Passively Exposed To Smoke? No MIGRATION.00246 81251 Information not available 12/25/2022 Are There Any Smokers In Your House? No MIGRATION.26477 50633 Information not available 12/25/2022 How Much Tobacco Do You Smoke? No MIGRATION.62231 51899 Information not available 12/25/2022 Do You Use Sunscreen Routinely? No MIGRATION.57834 46222 Information not available 12/25/2022 Has Tobacco Cessation Counseling Been Provided? No N/a MIGRATION.41467 45217 Information not available 12/25/2022 How Many Years Have You Smoked Tobacco? 0 MIGRATION.11940 03695 Information not available 12/25/2022 Have You Recently Traveled Abroad? No MIGRATION.21538 59949 Information not available 12/25/2022 Have You Used IV Drugs? No Information not available 01/16/2023 Do You Have Difficulty Walking Or Climbing Stairs? No MIGRATION.69157 01847 Information not available 12/25/2022 Do You Have Any Dietary Restrictions? No MIGRATION.10061 09233 Information not available 12/25/2022 Sex: Female Functional Status Question Answer Note LastModified by Organizat ion Details LastModified Time Do you use any illicit or recreational drugs? Yes Information not available 01/16/2023 Do you or have you ever used any other forms of tobacco or nicotine? No MIGRATION.526458 6319 Information not available 12/25/2022 What is your level of alcohol consumption? None MIGRATION.963201 5719 Information not available 12/25/2022 Do you or have you ever used smokeless tobacco? Never used smokeless tobacco MIGRATION.018725 7474 Information not available 12/25/2022 Do you have transportation difficulties? No MIGRATION.127757 0102 Information not available 12/25/2022 Are you able to walk? YESWOREST MIGRATION.645437 3438 Information not available 12/25/2022 Do you have difficulty doing errands alone? No MIGRATION.873615 5856 Information not available 12/25/2022 Are you able to care for yourself? 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 No MIGRATION.313128 6579 Information not available 12/25/2022 Do you or have you ever used e-cigarettes or vape? Never used electronic cigarettes MIGRATION.101203 1024 Information not available 12/25/2022 What is your exercise level? None MIGRATION.604544 5655 Information not available 12/25/2022 Mental Status Question Answer Note LastModified by Organizat ion Details LastModified Time Do you feel stressed (tense, restless, nervous, or anxious, or unable to sleep at night)? [id number] MIGRATION.01920288 26 Information not available 12/25/2022 Do you have difficulty concentrating, remembering or making decisions? No MIGRATION.21765151 26 Information not available 12/25/2022 Family History Relationship Description Onset Age of this Age Resolved Age Notes LastModified by Organization Details LastModified Time Maternal Grandfather Diabetes mellitus MIGRATION.727 [id number] Not available 12/25/2022 04:42:52 Mother Diabetes mellitus MIGRATION.290 2294298 Not available 12/25/2022 04:42:52 Father Heart disease MIGRATION.226 3607205 Not available 12/25/2022 04:42:52 Sister Malignant tumor of stomach MIGRATION.972 [id number] Not available 12/25/2022 04:42:52 Medical History Condition [...] mcg/0.3 mL dose 2 completed Not Available [facility] 12/16/2023 10:26:20 COVID-19, mRNA, LNP-S, PF, 30 mcg/0.3 mL dose 2 completed Not Available [facility] 12/16/2023 10:26:20 Influenza, high-dose, quadrivalent, PF 2 completed Not Available [facility] 12/16/2023 10:26:19 COVID-19, mRNA, LNP-S, PF, 30 mcg/0.3 mL dose 1 completed Not Available [facility] 12/16/2023 10:26:20 SARS-COV-2 (COVID-19) vaccine, UNSPECIFIED 1 completed Not Available [facility] 12/16/2023 10:26:20 SARS-COV-2 (COVID-19) vaccine, UNSPECIFIED 1 completed Not Available [facility] 12/16/2023 10:26:20 Pneumococcal conjugate PCV 13 9 completed Not Available [facility] 12/16/2023 10:26:20 Influenza, split virus, quadrivalent, preservative 9 completed Not Available On license of [facility] 12/16/2023 10:26:19 influenza, unspecified formulation 7 completed Not Available On license of [facility] 12/16/2023 10:26:20 tetanus toxoid, unspecified formulation 5 completed Not Available [facility] 12/16/2023 10:26:20 pneumococcal polysaccharide PPV23 2 completed Not Available On license of [facility] 12/16/2023 10:26:20 Influenza, high-dose, quadrivalent, PF 1 completed Not Available [facility] 12/16/2023 10:26:19 Influenza, high-dose, trivalent, PF 8 completed Not Available On license of [facility] 12/16/2023 10:26:20 Influenza, split virus, quadrivalent, preservative 6 completed Not Available On license of [facility] 12/16/2023 10:26:19 Influenza, split virus, trivalent, preservative 4 completed Not Available On license of [facility] 12/16/2023 10:26:20 Influenza, split virus, trivalent, preservative 3 completed Not Available On license of [facility] 12/16/2023 10:26:20 zoster live 3 completed Not Available On license of [facility] 12/16/2023 10:26:20 Past Encounters Encounter ID Performer Location Encounter Start Date Encounter Closed Date Diagnosis/Indication Diagnosis SNOMED-CT Code Diagnosis ICD10 Code Diagnosis Note [id number] Brody mora MD S_[facility] Internal Med [facility] [address] [facility] 15 [place] [address] 02/06/2021 00:00:00 03/15/2021 09:12:55 [id number] Brody mora MD S[facility] Internal Med [facility] [address] [facility] [address] [place] [address] 03/15/2021 00:00:00 03/20/2021 09:36:32 [id number] [facility] Pulmonolo [facility] [place] [address] [place] [address] 04/10/2021 00:00:00 04/10/2021 13:28:43 [id number] Brody mora MD [facility] Internal Med [facility] [address] [facility] [address] [address] 05/15/2021 00:00:00 05/16/2021 13:12:12 [id number] Omero farley MD [facility] General Surgery [address] [facility] [address] [address] 06/12/2021 00:00:00 06/12/2021 14:14:33 [id number] Brody mora MD S[facility] Internal Med [facility] [address] [facility] 15 [place] [address] 06/21/2021 00:00:00 06/21/2021 11:10:32 [id number] _ATHN_MIGR ATION_1 _ATHENA_M IGRATION_ DEFAULT_1 _1 , 07/09/2021 00:00:00 07/09/2021 17:02:21 [id number] Brody mora MD S[facility] Internal Med [facility] 15 [address] [facility] [address] [address] 08/14/2021 00:00:00 08/15/2021 17:19:35 [id number] MD ANN BrownS_[facility] Internal Med [facility] [address] [facility], [place] [address] 11/19/2021 00:00:00 01/21/2022 15:53:56 [id number] MD ANN BonnerS_[facility]G Ortho [place] [address] [place] [address] 12/18/2021 00:00:00 12/18/2021 16:56:08 [id number] MD ANN BrownS_[facility] Internal Med [place] [address] [facility] 15 [place] [address] 01/31/2022 00:00:00 03/26/2022 14:20:03 [id number] MD CURT Bonner_[facility] Ortho [place] [address] [facility] [address] [place] [address] 03/27/2022 00:00:00 04/12/2022 11:43:40 [id number] MD ANN BrownS_[facility] Internal Med [place] [address] [facility] 15 [place] [address] 06/06/2022 00:00:00 07/25/2022 16:43:39 [id number] Brody mora MD S[facility] Internal Med [place] [address] [facility] 15 [place] [address] 06/27/2022 00:00:00 06/27/2022 12:14:26 [id number] MD ANN BrownS_[facility] Internal Med [place] [address] [facility] 15 [place] [address] 09/17/2022 00:00:00 09/17/2022 11:57:41 [id number] Jelena Villeda, [facility]- [facility] Pulmonolo gy [place] [address] [place] [address] 11/11/2022 00:00:00 11/11/2022 13:01:48 [id number] Brody mora MD [facility] Internal Med [facility] 15 [address] [facility], [place] [address] [place] [address] 01/16/2023 11:06:15 01/16/2023 12:42:18 Screening - NAD 815645706 Z13.9 C-scope: S/p surgery for diverticul itis [...] her understand ing of the above Hyperlipidemia 81287694 E78.5 On rosuvastat in 40mg daily, but stopped this on her own, will need to restart 09/17/2022 Not on vascepaGet labs 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 335300394 E11.9 On glipizide will decrease to 2.5mg [...] well nowGet labs Chronic ki dney disease 255025617 N18.[address] Benavides On calcitriol On vit d weekly On lokelma (to treat high K), but not taking this as per her 11/19/2021 On mag ox Obstructiv e sleep apnea syndrome 26662779 G47.33 On CPAPSee pulmonary History of bariatric surgical procedure 431910048 Z98.[address] Mccray 07/09/2021 : Did not do the EGD as she was told to go an 1.5 hour awayGet a referral to Dr Narayan GI 11/19/2021 Hypothyroidism 10093592 E03.9 On euthyrox 50mcgs daily US thyroid 07/06/2021 : Neg Pain of ri ght elbow joint 1548959429 1256416 M25.521 Still c/o pain and unable to extend the elbowAlso c/o pain in the R wrist Dr Calderon 12/18/2021 , 03/27/2022 , may need elbow arthroplas ty, and cardiac clearance, she did see Bg Zaldivar on 06/12/2022 as per her history today 09/17/2022 and was told no surgery needed Near syncope 357026102 R 55 [facility] 08/16/2022 , Dr Foley, next apt is in 6 months Diaphragmatic hernia 398 39257 K44.9 S/p [facility], 07/04/2022 , EGD 07/04/2022 Dr Narayan Essential hypertension 65485872 I10 S/p Roldan ICD 020: Seen in [...] 6 months Moderate r ecurrent major depression 32940977 F33.1 On venlafaxin e ER 75mg dailyOn xanax 0.5mg daily as needed but uses this very rarelyOn buspirone 10mg po bid all side effects explained to her Does well, not suicidal or homicidalD eclines any psychiatry referrals Excess yousif niculus of abdomen 8443218521 101 E65 S/p surgery Dr Funes, she self referred to him Infected wound on 02/24/2021 and was readmitted , wound exploratio n and packing done in OR by Dr Lazo on 02/24/2021 Does well nowOn tramadol, advised to not take this often Small glenda l obstruction 142420789 K56.609 Admitted [facility], d/c 01/22S/p resection 01/16/2022 , treated with IV antibiotic s and PICC line as was NPO 01/22/2022 :CMP: Gluc 100, AST 37HCBC: WBC 10.8H, H/H 10.8/33.5 Does well now Thrombocyt openic disorder 352895214 D69.6 Dr Willis 04/25/2022 Transient cerebral ischemia 192928281 G45.9 This is new history as per herShe has seen a neurologis t in [place], cannot recall the nameShe has signed a LUDMILA and will call with the name Dr Hernandez 02/18/2022 Screening mammography 24 972820 Z12.31 Constipation 05943543 K5 9.00 Did see WILFREDO Roland [employer] on 01/14/2023 and did do an xray abd, now is on linzess as per her history Pain of left wrist 03733 05017 31265 M25.532 S/p EMG done by Dr Brand an apt with hand surgery [id number] Brody mora MD S[facility] Internal Med [facility] 15 [address] [facility], [place] [address] [place] [address] 04/24/2023 13:58:13 04/24/2023 14:35:06 Screening - NAD 170199320 Z13.9 C-scope: S/p surgery for diverticul itis 08/12/[address] Narayan 02/05/2023 , s/p c-scope 10/2022 Mammogram: 02/26/18 Neg 9: Neg 021: NegOrdered PAP: Not having any complaints declines any referrals at this time DEXA: 02/26/18: Osteopenia and is on ca and vit DDEXA: 07/06/2021 : Osteopenia [facility] 09/19/2019 , get #23UTD on zosterGet the TdUTD on COVID 19 01/14/2021 ADDENDUM: 08/06/18:Heidy Rose filled out for her today RTC in 3 monthsDo labsER if worseshe did verbalize her understand ing of the above Hyperlipidemia 95431881 E78.5 On rosuvastat in 40mg daily, but stopped this on her own, will need to restart 09/17/2022 Not on vascepaGet labs 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 163884609 E11.9 On glipizide will decrease to 2.5mg [...] labs, does well Chronic ki dney disease 721153350 N18.[address] Dr Benavides On calcitriol On vit d weekly On lokelma (to treat high K), but not taking this as per her 11/19/2021 On mag ox Obstructiv e sleep apnea syndrome 90107453 G47.33 On CPAPSee pulmonary History of bariatric surgical procedure 056558354 Z98.[address] Mccray 07/09/2021 : Did not do the EGD as she was told to go an 1.5 hour awayGet a referral to Dr Narayan GI 11/19/2021 Dr Narayan 02/05/2023 , started on linzess, f/u in 3 monthsNot taking linzess now Hypothyroidism 22455204 E03.9 On euthyrox 50mcgs daily US thyroid 07/06/2021 : Neg Pain of ri ght elbow joint 0458266753 4571796 M25.521 Still c/o pain and unable to extend the elbowAlso c/o pain in the R wrist Dr Calderon 12/18/2021 , 03/27/2022 , may need elbow arthroplas ty, and cardiac clearance, she did see Bg Zaldivar on 06/12/2022 as per her history 09/17/2022 and was told no surgery needed Near syncope 198836927 R 55 [facility] 08/16/2022 , Dr Foley, next apt is in 6 months Diaphragmatic hernia 398 11527 K44.9 S/p [facility], 07/04/2022 , EGD 07/04/2022 Dr Narayan Essential hypertension 25761626 I10 S/p Roldan ICD 020: Seen in ER CNE as the [employer] ICD was firing, as per Dr Alejandra this is lead noise and not true v-tach, pt d/c with f/u in Dr Alejandra' s office On ASAOn entresto 24-26mg bid Dr FoleyOn sotalol 80mg bid, changed to 40mg bid post d/c [facility] 01/22/2022 On mag ox Sees [facility] Dr Foley last OV 02/28/2023 , next in 6 months Moderate r ecurrent major depression 26088198 F33.1 On venlafaxin e ER 75mg dailyOn xanax 0.5mg daily as needed but uses this very rarelyOn buspirone 10mg po bid all side effects explained to her Does well, not suicidal or homicidalD eclines any psychiatry referrals Excess yousif niculus of abdomen 0696371067 101 E65 S/p surgery Dr Funes, she self referred to him Infected wound on 02/24/2021 and was readmitted , wound exploratio n and packing done in OR by Dr Lazo on 02/24/2021 Does well nowOn tramadol, advised to not take this often Small glenda l obstruction 146847471 K56.609 Admitted [facility], d/c 01/22S/p resection 01/16/2022 , treated with IV antibiotic s and PICC line as was NPO 01/22/2022 :CMP: Gluc 100, AST 37HCBC: WBC 10.8H, H/H 10.8/33.5 Does well now Thrombocyt openic disorder 319677852 D69.6 Dr Willis 02/28/2023 , f/u in 6 months Transient cerebral ischemia 058465707 G45.9 This is new history as per herShe has seen a neurologis t in [place], cannot recall the nameShe has signed a LUDMILA and will call with the name Dr Hernandez 02/18/2022 Screening mammography 24 362593 Z12.31 Constipation 48043886 K5 9.00 Did see WILFREDO Roland [employer] on 01/14/2023 and did do an xray abd, now is on linzess as per her history Pain of left wrist 87767 90007 14643 M25.532 S/p EMG done by Dr HernandezGet an apt with hand surgery Screening for osteoporosis 558206910 Z13.820 Adult heal th examination 549819554 Z00.00 Screening for disorder 905890924 Z13.9 Skin lesion 26165353 L98 .9 Left anterior leg, small tender lesion noted, refer to Dr Cm [id number] Massimo Porter DPM [facility] [place] [address] [facility] [address] [place] [address] 06/03/2023 09:34:08 06/03/2023 10:36:29 Pain of toe of left foot 8298562888 33532 M79.675 left 2nd previous surgeryxra ys orderedcon t Supportive shoe gearfollow -up in 3 months Bunion 201201831 M21.61 1 xrays orderedfol low-up x-rays Osteoarthritis 940742456 M19.90 right midfootxra ys orderedfol low-up x-rays Diabetes mellitus 269024 09 E11.9 Patient educated on neuropathy , diabetes, diabetic diet, and daily foot exams. Patient is to check feet daily for new wounds, blisters, redness to prevent infection and ulceration s to the feet. Patient will return to clinic in 3 months for diabetic foot workup. 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 with Dr Cabrera states that she is [...] the eliquis, [facility] 06/10/19:ACV:Here for a rash under her L [...] OV 11/16/2020:Here for her routine aptShe feels Harjityassine has seen plastic surgeon Dr Funes for a pannulectomy, and is now to get a CT abd/pelvis ordered by him todayDelbertnathan has done the labs on 10/04/2020 OV [...] but was seen in the ER at [facility] yesterday for a pre syncopal episode, states that she did have a CT head and labs and was d/c home to follow up with her PCPExtensive ROS noted for CVS and CNSShe is here with her Naresh recent labs OV 01/31/2022:TCM: d/c 01/22/2022 [facility] for SBO, s/p resection on 01/15/2022, Dr Neri with her , feels Gerri does state that she has seen a neurologist in [place], she was referred by her specialty trimmer as there was concern about her having [...] do the labs Brody Collado MD [address] [facility], [facility] [address], [place], [address], [facility] [place] [employer] 01/16/2023 13:11:27 3 text/html Here to establish [...] she is R HD, 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 with Dr Cabrera states that she is [...] her MWV alsoOV 11/16/2020:Here for her routine aptShnathan feels Gerri has seen plastic surgeon Dr [...] but was seen in the ER at [facility] yesterday for a pre syncopal episode, states that she did have a CT head and labs and was d/c home to follow up with her PCPExtensive ROS noted for CVS and CNSShe is here with her Naresh recent labsOV 01/31/2022:TCM: d/c 01/22/2022 [facility] for SBO, s/p resection on 01/15/2022, Dr Neri with her , feels Gerri does state that she has seen a neurologist in [place], she was referred by her specialty trimmer as there was concern about her having [...] in urine or stool Brody Collado MD [address], [place] [address], [place], [address], [facility] [employer] [facility] [employer] 08/18/2023 14:50:39 3 text/html . Patient is [...] complaints. Massimo Porter DPM [address], [facility] [address], [place], [address], [employer] [facility] [employer] 06/03/2023 10:33:42 OBGyn Episode No OBEpisode recorded.
--- OUTSIDE RECORDS SUMMARY | 2025-05-04 00:55 | XMS_ITS | Clinical Summary ---
Author Organization [facility] Address [address] [place] [address] Care Team Providers Care Freight Weigher Name Role Phone Duglas Collado MD Primary Care Provider Source Comments [facility],non-[facility] Affiliates and Associated Physician Practices is amultiple site organization consisting of ambulatory clinics and hospital sitesin [place], [place], [place] and [place]. This disclosure is being madepursuant to the Care Everywhere program and may not contain all information available regarding this patient. Last updated 18.[facility] Allergies Active Allergy Reactions Criticality Noted Date Comments Codeine Nausea and/or Vomiting,Vomiting Medium 05/27 Meperidine Nausea and/or Vomiting,Vomiting Medium 05/27 Medications * Be aware that medications may not be up to date on this document. Alwaysverify current medications with the patient. loratadine (CLARITIN) 10 MG tablet Take 10 mg by mouth once daily 9 Active vitamin D, ergocalciferol, (DRISDOL) 1.25 MG (62609 UT) capsule Take 50,000 Units by mouth [...] on file Legal Sex Female 7:00 PM FISHERMAN HELPER Gender Identity Not on file Sexual Orientation Not on file Last Filed Vital Signs Vital Sign Reading Time Taken Comments Blood Pressure 110/68 10/28/2019 2:58 PM FISHERMAN HELPER Pulse 77 10/28/2019 2:58 PM FISHERMAN HELPER Temperature 36.7 C (98.1 F) 10/28/2019 2:58 PM FISHERMAN HELPER Respiratory Rate 18 10/28/2019 2:58 PM FISHERMAN HELPER Oxygen Saturation 96% 10/28/2019 2:58 PM FISHERMAN HELPER Inhaled Oxygen Concentration - - Weight 87.2 kg (192 lb 4.8 oz) 10/28/2019 2:58 P M FISHERMAN HELPER Height 165.1 cm (5' 5) 10/28/2019 2:58 PM FISHERMAN HELPER Body Mass Index 32 10/28/2019 2:58 PM FISHERMAN HELPER Plan of Treatment Health Maintenance Due [...] ID:Not on file (Home) Address: [address] [place] [address] Payer ID:Not on file Group ID:Not on file Type:Self Pay Address: [place], [place] * Guarantor: KATHERYN PHILLIPS Account Type Relation to Patient Date of Phone Billing Address Personal/Family [address] [place] [address] MEDICARE AETNA Member Subscriber Plan / Payer (Ef fective for All Dates) Name:Katheryn Phillips Member ID:Not on file Relation to Subscriber:Self Name:Katheryn Phillips Subscriber ID:Not on file Payer ID:[id number] (NAIC) Group ID:[id number] Type:Commercial Address: [address] * Guarantor: KATHERYN PHILLIPS Account Type Relation to Patient Date of Phone Billing Address Personal/Family [address] [address] MEDICARE AETNA Member Subscriber Plan / Payer (Ef fective for All Dates) Name:Katheryn Phillips Member ID:Not on file Relation to Subscriber:Self Name:Katheryn Phillips Subscriber ID:Not on file Payer ID:[id number] (NAIC) Group ID:[id number] Type:Commercial Address: [address] * Guarantor: KATHERYN PHILLIPS Account Type Relation to Patient Date of Phone Billing Address Personal/Family [address] [place] [address] MEDICARE AETNA Care Teams Freight Weigher Relationship Specialty Start Date End Date Duglas Collado MD [address] [address] PCP - General Internal Medicine 07/16/19
--- OUTSIDE RECORDS SUMMARY | 2025-05-04 00:55 | XMS_ITS | Clinical Summary ---
Author Organization [facility] al Address [address] [place] [address] Care Team Providers Care Mining Manager Name Role Phone Dante Collado MD Primary Care Provide r Mk Alejandra MD Unavailable [phone] Allergies Active Allergy Reactions Criticality Noted Date [...] (01/17/2021): Added automatically from request for surgery [id number] Troponin level elevated 03/29/2020 Defibrillator discharge 03/28/2020 [...] on file Legal Sex Female 7:03 PM AGRICULTURE EXTENSION SPECIALIST Gender Identity Not on file Sexual Orientation Not on file Obstetrics History Last Filed Vital Signs Vital Sign Reading Time Taken Comments Blood Pressure 120/81 09/05/2022 8:37 AM AGRICULTURE EXTENSION SPECIALIST Pulse 66 09/05/2022 8:37 AM AGRICULTURE EXTENSION SPECIALIST Temperature 36.4 C (97.5 F) 11/18/2021 2:14 PM AGRICULTURE EXTENSION SPECIALIST Respiratory Rate 25 11/18/2021 6:20 PM AGRICULTURE EXTENSION SPECIALIST Oxygen Saturation 100% 11/18/2021 6:20 PM AGRICULTURE EXTENSION SPECIALIST Inhaled Oxygen Concentration - - Weight 66 kg (145 lb 6.4 oz) 09/05/2022 8:37 AM AGRICULTURE EXTENSION SPECIALIST Height 154.9 cm (5' 1) 09/05/2022 8:37 AM AGRICULTURE EXTENSION SPECIALIST Body Mass Index 27.47 09/05/2022 8:37 AM AGRICULTURE EXTENSION SPECIALIST Plan of Treatment Health Maintenance Due Date [...] 09/17/2022, 08/28 Medical Devices Implanted Type Area Cash Specialist Device Identifier Shelf Expiration Date Model / Serial / Lot Biotronik Inc [id number] Solia S 45cm Bipolar Active Fixation Lead Pacing Steroid Eluting - [id number] - [id number] Implanted:Qty: 1 on 09/22/2019 by Mk Alejandra MD at [facility] Lead [employer] [id number] 06/26/2021 [id number] / [id number] / Lead Icd Sentus Promri Left Ventricular Otw Quadripolar L-85/49 - [id number] - [id number] Implanted:Qty: 1 on 04/09/2018 by Mk Alejandra MD at [facility] [employer] 12/25/2019 [id number] / [id number] / [employer]ig [employer] [id number] Angio-Seal Vip Bondek-Plus 8fr .038in 70cm Hemostatic Latex Free - [id number] Implanted:Qty: 1 on 10/13/2018 by Mk Alejandra MD at [facility] [employer] 05/26/2019 [id number] / / [id number] Procedures Procedure Name Priority Date/Time Associated Diagnosis Comments EGFR STAT 11/18/2021 3:26 PM AGRICULTURE EXTENSION SPECIALIST LIPID PANEL Timed 03/28/2020 1:05 PM CDT COLONOSCOPY REPORT 07/01/2013 from Last 3 Months or Most Recently Relevant to Health Maintenance Results * eGFR (11/18/2021 3:26 PM AGRICULTURE EXTENSION SPECIALIST) eGFR 73 mL/min/1. 73 m2 MAT FERREIRA [...] last reviewed 2021. Blood 11/18/2021 3:26 PM AGRICULTURE EXTENSION SPECIALIST 11/18/2021 3:33 PM AGRICULTURE EXTENSION SPECIALIST us Felisha Porter MD LAB BLOOD ORDERABLES Final Resu lt MAT FERREIRA [id number] [place] [address] * Lipid panel (03/28/2020 1:05 PM CDT) [...] LAB BLOOD ORDERABLES [place] MAT [id number] [place] [address] * COLONOSCOPY REPORT (07/01/2013) Anatomical Region Laterality Modality Other Narrative 07/01/2013 Ordered by an unspecified provider. Historical Provider GI PROCEDURE ORDERABLES F inal Result from Last 3 Months or Most Recently Relevant to Health Maintenance Insurance MEDICARE AETNA SENIOR SUPPLEMENT MEDICARE [facility] MEDICARE AETNA Advance Directives For more information, please contact: [phone] * Full Code (Latest Code Status on [...] 11:02 PM 10/01/2017 2:07 PM Care Teams Mining Manager Relationship Specialty Start Date End Date Dante Collado MD [address] [address] PCP - General 09/10/17 [place] [address] [address] Consulting Physician Cardiology 10/01/17
--- OUTSIDE RECORDS SUMMARY | 2025-05-04 00:55 | XMS_ITS | Continuity of Care Document ---
Author Organization [facility] Address [address] [place] [address] [address] [place] [address] Phone Care Team Providers Care Vp Integration Name Role Phone Jessica Reece Unavailable Unavailable Procedures Procedure Date Office/outpatient Visit, Est Advance Directives Directive Yes / No Effective Date File Name No Information Encounters Encounter Description Practice Location Reason(s) For Visit Diagnoses Date Provider Providers Copied on Encounter Office/outpat ient Visit, Est [facility], [address] [place] [address] [address], [place], [place], [id number], [place] tel:[phone] [address] [facility] No Information 8-201 0 Shanell Lopez. [address] [facility] , [address], [place], [address], [place]. tel:[phone] Family History Family Member Type Diagnosis Age At Onset No Information Payers Payer name Insurance type Covered democrat ID Authoriza tion(s) No Information Social History [...]
--- OUTSIDE RECORDS SUMMARY | 2025-05-04 00:55 | XMS_ITS | Referral Summary ---
Author Organization [facility] al Address [address] [place] [address] Care Team Providers Care Room Inspector Name Role Phone Dante Collado MD Primary Care Provide r Mk Alejandra MD Unavailable [phone] Allergies Active Allergy Reactions Criticality Noted Date [...] (01/17/2021): Added automatically from request for surgery [id number] Troponin level elevated 03/29/2020 Defibrillator discharge 03/28/2020 [...] on file Legal Sex Female 7:03 PM V BELT COVERER Gender Identity Not on file Sexual Orientation Not on file Last Filed Vital Signs Vital Sign Reading Time Taken Comments Blood Pressure 120/81 09/05/2022 8:37 AM V BELT COVERER Pulse 66 09/05/2022 8:37 AM V BELT COVERER Temperature 36.4 C (97.5 F) 11/18/2021 2:14 PM V BELT COVERER Respiratory Rate 25 11/18/2021 6:20 PM V BELT COVERER Oxygen Saturation 100% 11/18/2021 6:20 PM V BELT COVERER Inhaled Oxygen Concentration - - Weight 66 kg (145 lb 6.4 oz) 09/05/2022 8:37 AM V BELT COVERER Height 154.9 cm (5' 1) 09/05/2022 8:37 AM V BELT COVERER Body Mass Index 27.47 09/05/2022 8:37 AM V BELT COVERER Plan of Treatment Not on file Medical Devices Implanted Type Area Home Lighting Adviser Device Identifier Shelf Expiration Date Model / Serial / Lot Biot[employer]ik Inc [id number] Solia S 45cm Bipolar Active Fixation Lead Pacing Steroid Eluting - [id number] - [id number] Implanted:Qty: 1 on 09/22/2019 by Mk Alejandra MD at [facility] Lead [employer] [id number] 06/26/2021 [id number] / [id number] / Lead Icd Sentus Promri Left Ventricular Otw Quadripolar L-85/49 - [id number] - [id number] Implanted:Qty: 1 on 04/09/2018 by Mk Alejandra MD at [facility] [employer] 12/25/2019 [id number] / [id number] / [employer] [id number] Angio-Seal Vip Bondek-Plus 8fr .038in 70cm Hemostatic Latex Free - [id number] Implanted:Qty: 1 on 10/13/2018 by Mk Alejandra MD at [facility] [employer] 05/26/2019 [id number] / / [id number] Procedures Procedure Name Priority Date/Time Associated Diagnosis Comments EGFR STAT 11/18/2021 3:26 PM V BELT COVERER LIPID PANEL Timed 03/28/2020 1:05 PM CDT COLONOSCOPY REPORT 07/01/2013 from Last 3 Months or Most Recently Relevant to Health Maintenance Results * eGFR (11/18/2021 3:26 PM V BELT COVERER) eGFR 73 mL/min/1. 73 m2 MAT FERREIRA [...] last reviewed 2021. Blood 11/18/2021 3:26 PM V BELT COVERER 11/18/2021 3:33 PM V BELT COVERER us Felisha Porter MD LAB BLOOD ORDERABLES Final Resu lt MAT FERREIRA [address] Department [place] [address] * Lipid panel (03/28/2020 1:05 [...] LAB BLOOD [place] [address] [address] Department of Laboratories [place] [id number] * COLONOSCOPY REPORT (07/01/2013) Anatomical Region Laterality Modality Other Narrative 07/01/2013 Ordered by an unspecified provider. [facility] Provider GI PROCEDURE ORDERABLES F inal Result from Last 3 Months or Most Recently Relevant to Health Maintenance Insurance MEDICARE AETNA SENIOR SUPPLEMENT MEDICARE AETNA SENIOR SUPPLEMENT MEDICARE AETNA Advance Directives For more information, please contact: [phone] * Full Code (Latest Code Status on [...] 11:02 PM 10/01/2017 2:07 PM Care Teams Room Inspector Relationship Specialty Start Date End Date Dante Collado MD [address] [facility] [address] [place] [address] PCP - General 09/10/17 [place] [address] [place] [address] Consulting Physician Cardiology 10/01/17
--- NOTE | 2025-05-04 11:13 | SUR.PREOP ---
Patient did not arrive for her procedure, I called her and she told me that she forgot and would like to reschedule.
--- NOTE | 2025-05-04 13:47 | PC.NURSE ---
Patient updated on new times and instructions for procedure scheduled on the .
--- OUTSIDE RECORDS SUMMARY | 2025-05-12 01:13 | XMS_ITS | Referral Summary ---
Author Organization [facility] al Address [address] [place] [address] Care Team Providers Care Deep Submergence Vehicle Crewmember Name Role Phone Dante Collado MD Primary Care Provide r Mk Alejandra MD Unavailable [phone] Allergies Active Allergy Reactions Criticality Noted Date [...] (01/17/2021): Added automatically from request for surgery [id number] Troponin level elevated 03/29/2020 Defibrillator discharge 03/28/2020 [...] on file Legal Sex Female 7:03 PM GRANTS AND CONTRACTS ASSISTANT Gender Identity Not on file Sexual Orientation Not on file Last Filed Vital Signs Vital Sign Reading Time Taken Comments Blood Pressure 120/81 09/05/2022 8:37 AM GRANTS AND CONTRACTS ASSISTANT Pulse 66 09/05/2022 8:37 AM GRANTS AND CONTRACTS ASSISTANT Temperature 36.4 C (97.5 F) 11/18/2021 2:14 PM GRANTS AND CONTRACTS ASSISTANT Respiratory Rate 25 11/18/2021 6:20 PM GRANTS AND CONTRACTS ASSISTANT Oxygen Saturation 100% 11/18/2021 6:20 PM GRANTS AND CONTRACTS ASSISTANT Inhaled Oxygen Concentration - - Weight 66 kg (145 lb 6.4 oz) 09/05/2022 8:37 AM GRANTS AND CONTRACTS ASSISTANT Height 154.9 cm (5' 1) 09/05/2022 8:37 AM GRANTS AND CONTRACTS ASSISTANT Body Mass Index 27.47 09/05/2022 8:37 AM GRANTS AND CONTRACTS ASSISTANT Plan of Treatment Not on file Medical Devices Implanted Type Area Research Geologist Device Identifier Shelf Expiration Date Model / Serial / Lot Biotronik Inc [id number] Solia S 45cm Bipolar Active Fixation Lead Pacing Steroid Eluting - [id number] - [id number] Implanted:Qty: 1 on 09/22/2019 by Mk Alejandra MD at [facility] Lead [employer] [id number] 06/26/2021 [id number] / [id number] / Lead Icd Sentus Promri Left Ventricular Otw Quadripolar L-85/49 - [id number] - [id number] Implanted:Qty: 1 on 04/09/2018 by Mk Alejandra MD at [facility] [employer] 12/25/2019 [id number] / [id number] / [employer] [id number] Angio-Seal Vip Bondek-Plus 8fr .038in 70cm Hemostatic Latex Free - [id number] Implanted:Qty: 1 on 10/13/2018 by Mk Alejandra MD at [facility] [employer] 05/26/2019 [id number] / / [id number] Procedures Procedure Name Priority Date/Time Associated Diagnosis Comments EGFR STAT 11/18/2021 3:26 PM GRANTS AND CONTRACTS ASSISTANT LIPID PANEL Timed 03/28/2020 1:05 PM CDT COLONOSCOPY REPORT 07/01/2013 from Last 3 Months or Most Recently Relevant to Health Maintenance Results * eGFR (11/18/2021 3:26 PM GRANTS AND CONTRACTS ASSISTANT) eGFR 73 mL/min/1. 73 m2 MAT FERREIRA [...] last reviewed 2021. Blood 11/18/2021 3:26 PM GRANTS AND CONTRACTS ASSISTANT 11/18/2021 3:33 PM GRANTS AND CONTRACTS ASSISTANT us Felisha Porter MD LAB BLOOD ORDERABLES Final Resu lt MAT FERREIRA [address] Department [place] [address] * Lipid panel (03/28/2020 1:05 [...] LAB B[place] [address] [address] Department of Laboratories [place] [id number] * COLONOSCOPY REPORT (07/01/2013) Anatomical Region Laterality Modality Other Narrative 07/01/2013 Ordered by an unspecified provider. [facility] Provider GI PROCEDURE ORDERABLES F inal Result from Last 3 Months or Most Recently Relevant to Health Maintenance Insurance MEDICARE AETNA SENIOR SUPPLEMENT MEDICARE AETNA SENIOR SUPPLEMENT MEDICARE AETNA Advance Directives For more information, please contact: [phone] * Full Code (Latest Code Status on [...] 11:02 PM 10/01/2017 2:07 PM Care Teams Deep Submergence Vehicle Crewmember Relationship Specialty Start Date End Date Dante Collado MD [address] [facility] [address] [place] [address] PCP - General 09/10/17 [place] [address] [place] [address] Consulting Physician Cardiology 10/01/17
--- OUTSIDE RECORDS SUMMARY | 2025-05-12 01:13 | XMS_ITS | Clinical Summary ---
Author Organization [facility] Address [address] [facility] [address] [place] [address] Phone Care Team Providers Care Outreach Rep Name Role Phone Duglas Collado MD Primary [...] Comments Blood Pressure 104/71 2024 2:17 PM SHIP PURSER Pulse 91 2024 2:17 PM SHIP PURSER Temperature 36.9 C (98.4 F) 2024 2:17 PM SHIP PURSER Respiratory Rate 15 2024 2:17 PM SHIP PURSER Oxygen Saturation 95% 2024 2:17 PM SHIP PURSER Inhaled Oxygen Concentration - - Weight 69.3 kg (152 lb 12.8 oz) 2024 2:17 PM SHIP PURSER Height 152.4 cm (5') 04/25/2022 11:38 AM CDT Body Mass Index 29.84 04/25/2022 11:38 AM CDT Plan of Treatment Upcoming Encounters Date Type Department Care Team (Late st Contact Info) Description 05/27/2025 10:30 AM CDT Office Visit [facility] Oncology and Hematology - [place] [address] [facility] [address] [place] [address] Brandon iWllis MD [address] [facility] [address] [place] [address] Health Maintenance Due Date Last [...] , 09/19/2019 Medical Devices Implanted Type Area Training Development Manager Device Identifier Shelf Expiration Date Model / Serial / Lot Lap Band,Bilat Knee Replacement Implanted:(Quantit y not on file) Explanted:(Quantit y not on file) Insurance MEDICARE PART A AND B AETNA MEDICARE SUPP AESSI MEDICARE PART A AND B [place] [address] Advance Directives For more information, please contact: [phone] * Full Code (Latest Code Status on File) Date Activated Date Inactivated Comments 07/05/2014 8:17 AM 07/05/2014 11:32 AM * Full Code Date Activated Date Inactivated Comments 07/05/2014 6:54 AM 07/05/2014 8:17 AM Care Teams Outreach Rep Relationship Specialty Start Date End Date Duglas Collado MD PCP - General Internal Medicine 03/27/22
--- OUTSIDE RECORDS SUMMARY | 2025-05-12 01:13 | XMS_ITS | Clinical Summary ---
Author Organization [facility] al Address [address] [place] [address] Care Team Providers Care Fixed Wing Pilot Name Role Phone Dante Collado MD Primary Care Provide r Mk Alejandra MD Unavailable [phone] Allergies Active Allergy Reactions Criticality Noted Date [...] (01/17/2021): Added automatically from request for surgery [id number] Troponin level elevated 03/29/2020 Defibrillator discharge 03/28/2020 [...] on file Legal Sex Female 7:03 PM OPTICIAN MANAGER Gender Identity Not on file Sexual Orientation Not on file Obstetrics History Last Filed Vital Signs Vital Sign Reading Time Taken Comments Blood Pressure 120/81 09/05/2022 8:37 AM OPTICIAN MANAGER Pulse 66 09/05/2022 8:37 AM OPTICIAN MANAGER Temperature 36.4 C (97.5 F) 11/18/2021 2:14 PM OPTICIAN MANAGER Respiratory Rate 25 11/18/2021 6:20 PM OPTICIAN MANAGER Oxygen Saturation 100% 11/18/2021 6:20 PM OPTICIAN MANAGER Inhaled Oxygen Concentration - - Weight 66 kg (145 lb 6.4 oz) 09/05/2022 8:37 AM OPTICIAN MANAGER Height 154.9 cm (5' 1) 09/05/2022 8:37 AM OPTICIAN MANAGER Body Mass Index 27.47 09/05/2022 8:37 AM OPTICIAN MANAGER Plan of Treatment Health Maintenance Due Date [...] 09/17/2022, 08/28 Medical Devices Implanted Type Area Train Brakeman Device Identifier Shelf Expiration Date Model / Serial / Lot Bi[employer] Inc [id number] Solia S 45cm Bipolar Active Fixation Lead Pacing Steroid Eluting - [id number] - [id number] Implanted:Qty: 1 on 09/22/2019 by Mk Alejandra MD at [facility] Lead [employer] [id number] 06/26/2021 [id number] / [id number] / Lead Icd Sentus Promri Left Ventricular Otw Quadripolar L-85/49 - [id number] - [id number] Implanted:Qty: 1 on 04/09/2018 by Mk Alejandra MD at [facility] [employer] 12/25/2019 [id number] / [id number] / [employer]ig [employer] [id number] Angio-Seal Vip Bondek-Plus 8fr .038in 70cm Hemostatic Latex Free - [id number] Implanted:Qty: 1 on 10/13/2018 by Mk Alejandra MD at [facility] [employer] 05/26/2019 [id number] / / [id number] Procedures Procedure Name Priority Date/Time Associated Diagnosis Comments EGFR STAT 11/18/2021 3:26 PM OPTICIAN MANAGER LIPID PANEL Timed 03/28/2020 1:05 PM CDT COLONOSCOPY REPORT 07/01/2013 from Last 3 Months or Most Recently Relevant to Health Maintenance Results * eGFR (11/18/2021 3:26 PM OPTICIAN MANAGER) eGFR 73 mL/min/1. 73 m2 MAT FERREIRA [...] last reviewed 2021. Blood 11/18/2021 3:26 PM OPTICIAN MANAGER 11/18/2021 3:33 PM OPTICIAN MANAGER us Felisha Porter MD LAB BLOOD ORDERABLES Final Resu lt MAT FERREIRA [id number] Department [place] [address] * Lipid panel (03/28/2020 1:05 PM CDT) [...] LAB BLOOD ORDERABLES [place] MAT [id number] Department [place] [address] * COLONOSCOPY REPORT (07/01/2013) Anatomical Region Laterality Modality Other Narrative 07/01/2013 Ordered by an unspecified provider. Historical Provider GI PROCEDURE ORDERABLES F inal Result from Last 3 Months or Most Recently Relevant to Health Maintenance Insurance MEDICARE AETNA SENIOR SUPPLEMENT MEDICARE [facility] MEDICARE AETNA Advance Directives For more information, please contact: [phone] * Full Code (Latest Code Status on [...] 11:02 PM 10/01/2017 2:07 PM Care Teams Fixed Wing Pilot Relationship Specialty Start Date End Date Dante Collado MD [address] [address] PCP - General 09/10/17 [place] [address] [address] Consulting Physician Cardiology 10/01/17
--- OUTSIDE RECORDS SUMMARY | 2025-05-12 01:14 | XMS_ITS | Data Portability ---
Author Organization [place] - [facility] [employer], Main Office Address [address] [place] [address] Care Team Providers Care Retread Operator Name Role Phone BRODY COLLADO Primary Care Provider [phone] BRODY COLLADO Referring Provider Assessment Encounter Date [...] This note is dictated and transcribed by [employer]. Information Technology Coordinator variances may occur. Despite proofreading, typographical errors may occur. [email or web address] Not available 06/03/2023 10:31:35 Plan of Treatment Reminders Order Date Submit Date Provider Last Modified By Organization Details Last Modified Time Details Appointments None recorded. Lab lipid panel, serum 2022 023 [email or web address] [facility] (Lab), [address] [place], [address], 4 13:54:50 CBC w/ auto diff [address] (Lab), [address] [place], [address], 4 13:54:50 TSH, serum or plasma [address] (Lab), [address] [place], [address], 4 13:54:50 T4, free, serum [address] (Lab), [address] [place], [address], 4 13:54:50 CMP, serum or plasma [address] (Lab), [address] [place], [address], 4 13:54:51 vitamin D, 25-hydroxy, total, serum [address] (Lab), [address] [place], [address], 4 17:14:48 glycohemogl obin, total, blood [address] (Lab), [address] [place], [address], 4 13:54:49 microalbumi n, urine [address] (Lab), [address] [place], [address], 4 13:54:50 lipid panel, serum 2022 023 [facility] (Lab), [address] [place], [address], 3 10:23:37 CBC w/ auto diff 2022 023 [facility] (Lab), [address] [place], [address], 3 10:29:24 TSH, serum or plasma 2022 023 [facility] (Lab), [address] [place], [address], 3 11:00:11 T4, free, serum 2022 023 [facility] (Lab), [address] [place], [address], 3 10:32:56 CMP, serum or plasma 2022 023 [facility] (Lab), [address] [place], [address], 3 10:23:48 glycohemogl obin, total, blood 2022 023 [facility] (Lab), [address] [place], [address], 3 12:21:03 microalbumi n, urine 2022 023 [facility] (Lab), [address] [place], [address], 3 10:27:[address] referral 2022 023 Not available 3 12:14:23 nephrologis t referral 2022 023 lili Benavides MD, [address], [address], [place], [address], 4 17:05:18 hematologis t referral 2022 023 [email or web address] Willis MD, [address], [place], [address], 3 12:14:51 cardiologis t referral 2022 023 [email or web address], [address], [address], [place], [address], 3 12:16:17 hand surgeon referral 2022 023 [email or web address] Calderon MD, [address] [place], [address], 3 12:15:45 neurologist referral 2022 023 [email or web address] Hernandez MD, [address] [facility] , [address], [place], [address], 3 12:15:26 silk screen etcher referral 2022 023 [email or web address] Massimo Porter DPDouglas, [address], [address], [place], [address], 4 17:05:19 general surgeon referral 2022 023 rio Waddell MD, [address], [address], [place], [address], 3 12:16:47 neurologist referral 2022 023 rio Hernandez MD, 4 [facility] , [address], [place], [address], 3 11:01:11 nephrologis t referral 2022 023 rio Benavides MD, [address], [address], [place], [address], 3 17:44:[address] referral 2022 023 [email or web address] Not available 3 18:42:45 hematologis t referral 2022 023 [email or web address] Brandon Willis MD, [address], [place], [address], 3 11:00:29 silk screen etcher referral 2022 023 [facility] Massimo Porter DPM, [address] [facility], [address], [place], [address], 3 17:43:46 hand surgeon referral 2022 023 [email or web address] Calderon MD, [address] [place], [address], 3 10:03:10 Procedures None recorded. Surgeries None recorded. Imaging MAMMO, screening, digital, bilateral 2022 023 [facility] (Radiology), [address] [place], [address], 4 17:05:28 DEXA, axial skeleton 2022 023 [email or web address] [facility] (Radiology), [address] [place], [address], 4 17:14:35 MAMMO, screening, digital, bilateral 2022 023 [email or web address] ([facility] [address] [place], [address], 3 12:09:29 Medication Orders None recorded. Patient TargetsNo targets recorded. Patient Instructions Encounter Date Encounter Id Patient Instructions Last Modified By Organization Details Last Modified Time 01/16/2023 [id number] diabetic eye exam* Not availa ble 07/24/2023 10:21:58 04/24/2023 [id number] dementia rating scale-2* miguel 2 Not available [...] Negative Active diagnosis, Continue current treatment plan [email or web address] Not available 04/24/2023 14:37:41 Reason for Referral Grinder Outside Diameter Referral for O bstructive sleep apnea syndrome Referring Physician: Jessica Peña, Encounter Date: 01/16/2023 District Manager 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 Referring Physician: Jessica Peña, Encounter Date: 01/16/2023 Health Services Information Specialist Referral for Type 2 diabetes mellitus without complication Referring Physician: Jessica Peña, Encounter Date: 01/16/2023 Referring Physician: Jessica Peña, Encounter Date: 01/16/2023 Neurologist Referral for Tra nsient cerebral ischemia Referring Physician: Jessica Peña, Encounter Date: 01/16/2023 Hand Surgeon Referral for Pa in of left wrist Referring Physician: Jessica Peña, Encounter Date: 01/16/2023 Grinder Outside Diameter Referral for O bstructive sleep apnea syndrome Referring Physician: Jessica Peña, Encounter Date: 04/24/2023 District Manager 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 Referring Physician: Jessica Peña, Encounter Date: 04/24/2023 Health Services Information Specialist Referral for Type 2 diabetes mellitus without complication Referring Physician: Jessica Peña, Encounter Date: 04/24/2023 Referring Physician: Jessica Peña, Encounter Date: 04/24/2023 Neurologist Referral for Tra nsient cerebral ischemia Referring Physician: Jessica Peña, Encounter Date: 04/24/2023 Hand Surgeon Referral for Pa in of left wrist Referring Physician: Jessica Peña, Encounter Date: 04/24/2023 Oceanographer Assistant Referral for Ne ar syncope Referring Physician: Jessica Peña, Encounter Date: 04/24/2023 General Surgeon Referral for Skin lesion Referring Physician: Brody Collado, Internal Medicine, Encounter Date: 04/24/2023 Results Created Date Observation Date Name Description Value Unit Range Abnormal Flag Note LastModifiedBy Organization Detail LastModifiedTime 08/27/20 22 08/27/2022 FOLAT E, SERUM /PLAS MA folate 5.98 NG/mL 2.76-2 0.0 Not Available [facility] (Lab) [address] [place], [address], 08/27/2022 18:44:29 08/27/20 22 08/27/2022 VITAM IN B12 (MADDY DOMENICA ) vb12 476 pg/mL 239-93 1 Not Available [facility] (Lab) [address] [place], [address], 08/27/2022 18:44:26 08/27/20 22 08/27/2022 MICRO ALBUM IN RANDO M URINE microalbumin , urine <6.0 mg/L 0.0-16 .6 Not Available [facility] (Lab) [address] [place], [address], 08/27/2022 18:09:51 08/27/20 22 08/27/2022 HEMOG LOBIN A1C HA1C 5.5 % 4.0-6. 0 Diabe harman Scree roma Crite adi: <5.7% Consi stent with absen ce of diabe harman 5.7-6 .4% Consi stent with incre ased risk for diabe harman (pred iabet es) >OR=6 .5% Consi stent with diabe harman REFER ENCE: Diabe harman Care 2016, 39(Arnold ppl.1 ):s13 -s22 Not Available [facility] (Lab) [address] [place], [address], 08/27/2022 15:07:49 08/27/20 22 08/27/2022 TSH thyroid-stim ulating hormone 1.980 uIU/m L 0.465- 4.680 Not Available [facility] (Lab) [address] [place], [address], 08/27/2022 13:44:58 08/27/20 22 08/27/2022 T4 FREE free T4 1.19 NG/dL 0.78-2 .19 Not Available [facility] (Lab) [address] [place], [address], 08/27/2022 13:31:42 08/27/20 22 08/27/2022 COMPR EHENS JONATHAN METAB OLIC PANEL sodium 138 mmol/ L 137-14 5 Not Available [facility] (Lab) [address] [place], [address], 08/27/2022 13:22:36 08/27/20 22 08/27/2022 COMPR EHENS JONATHAN METAB OLIC PANEL potassium 4.4 mmol/ L 3.5-5. 1 Not Available [facility] (Lab) [address] [place], [address], 08/27/2022 13:22:36 08/27/20 22 08/27/2022 COMPR EHENS JONATHAN METAB OLIC PANEL chloride 104 mmol/ L 98-107 Not Available [facility] (Lab) [address] [place], [address], 08/27/2022 13:22:36 08/27/20 22 08/27/2022 COMPR EHENS JONATHAN METAB OLIC PANEL carbon dioxide 31 mmol/ L 22-30 high Not Available [facility] (Lab) [address] [place], [address], 08/27/2022 13:22:36 08/27/20 22 08/27/2022 COMPR EHENS JONATHAN METAB OLIC PANEL anion gap 7.4 mmol/ L 14-22 low Not Available [facility] (Lab) [address] [place], [address], 08/27/2022 13:22:36 08/27/20 22 08/27/2022 COMPR EHENS JONATHAN METAB OLIC PANEL glucose 93 mg/dL 70-99 Not Available [facility] (Lab) [address] [place], [address], 08/27/2022 13:22:36 08/27/20 22 08/27/2022 COMPR EHENS JONATHAN METAB OLIC PANEL BUN 17 mg/dL 8-19 Not Available [facility] (Lab) [address] [place], [address], 08/27/2022 13:22:36 08/27/20 22 08/27/2022 COMPR EHENS JONATHAN METAB OLIC PANEL creatinine 0.97 mg/dL 0.66-1 .25 Not Available [facility] (Lab) [address] [place], [address], 08/27/2022 13:22:36 08/27/20 22 08/27/2022 COMPR EHENS JONATHAN METAB OLIC PANEL GFR 57 Refer ence Range : [place] ge GFR Healt hy Adult : >60 [...] calcu lator is avail able on the [facility] websi te: https ://rigoberto aguila.ulysses benz/pr ofess ional s/kdo qi/gf r_cal culat or Not Available [facility] (Lab) [address] [place], [address], 08/27/2022 13:22:36 08/27/20 22 08/27/2022 COMPR EHENS JONATHAN METAB OLIC PANEL alkaline phosphatase 63 U/L 38-126 Not Available [facility] (Lab) [address] [place], [address], 08/27/2022 13:22:36 08/27/20 22 08/27/2022 COMPR EHENS JONATHAN METAB OLIC PANEL alanine aminotransfe rase 5 U/L 0-35 Not Available [facility] (Lab) [address] [place], [address], 08/27/2022 13:22:36 08/27/20 22 08/27/2022 COMPR EHENS JONATHAN METAB OLIC PANEL aspartate aminotransfe rase 22 U/L 15-37 Not Available [facility] (Lab) [address] [place], [address], 08/27/2022 13:22:36 08/27/20 22 08/27/2022 COMPR EHENS JONATHAN METAB OLIC PANEL bilirubin, total 0.60 mg/dL 0.20-1 .30 Not Available [facility] (Lab) [address] [place], [address], 08/27/2022 13:22:36 08/27/20 22 08/27/2022 COMPR EHENS JONATHAN METAB OLIC PANEL calcium 9.8 mg/dL 8.4-10 .2 Not Available [facility] (Lab) [address] [place], [address], 08/27/2022 13:22:36 08/27/20 22 08/27/2022 COMPR EHENS JONATHAN METAB OLIC PANEL total protein 6.4 g/dL 6.3-8. 2 Not Available [facility] (Lab) [address] [place], [address], 08/27/2022 13:22:36 08/27/20 22 08/27/2022 COMPR EHENS JONATHAN METAB OLIC PANEL albumin 4.1 g/dL 3.0-4. 4 Not Available [facility] (Lab) [address] [place], [address], 08/27/2022 13:22:36 08/27/20 22 08/27/2022 COMPR EHENS JONATHAN METAB OLIC PANEL globulin 2.3 g/dL 2.6-4. 2 low Not Available [facility] (Lab) [address] [place], [address], 08/27/2022 13:22:36 08/27/20 22 08/27/2022 COMPR EHENS JONATHAN METAB OLIC PANEL A/G ratio 1.8 ratio 1.0-2. 0 Not Available [facility] (Lab) [address] [place], [address], 08/27/2022 13:22:36 08/27/20 22 08/27/2022 LIPID PANEL cholesterol 271 mg/dL 140-19 9 high NIH OSWALDO NSUS RECOM MENDA TION FOR PAWAN STERO L: ADULT CHILD LOW RISK: <200 <170 BORDE RLINE : <200- 239 ----- HIGH RISK: >240 >200 Not Available [facility] (Lab) [address] [place], [address], 08/27/2022 13:21:09 08/27/20 22 08/27/2022 LIPID PANEL triglyceride s 237 mg/dL 0-150 high NIH OSWALDO NSUS REPOR T RECOM MENDA TION FOR TRIGL YCERI ZORAIDA: ADULT CHILD LOW RISK: <150 ----- BODER LINE: 150-1 99 ----- HIGH RISK: >200 ----- Not Available [facility] (Lab) [address] [place], [address], 08/27/2022 13:21:09 08/27/20 22 08/27/2022 LIPID PANEL HDL cholesterol 55 mg/dL 40- Not Available [facility] (Lab) [address] [place], [address], 08/27/2022 13:21:09 08/27/20 22 08/27/2022 LIPID PANEL [...] WILL NOT BE REPOR RUI. Not Available [facility] (Lab) [address] [place], [address], 08/27/2022 13:21:09 08/27/20 22 08/27/2022 CBC/C OMPLE TE BLD COUNT W/DIF F white blood cells 7.2 x10'3 /uL 4.2-10 .8 Not Available [facility] (Lab) [address] [place], [address], 08/27/2022 13:09:09 08/27/20 22 08/27/2022 CBC/C OMPLE TE BLD COUNT W/DIF F red blood cells 4.43 x10'6 /uL 3.80-5 .20 Not Available [facility] (Lab) [address] [place], [address], 08/27/2022 13:09:09 08/27/20 22 08/27/2022 CBC/C OMPLE TE BLD COUNT W/DIF F hemoglobin 13.8 g/dL 12.0-1 5.6 Not Available [facility] (Lab) [address] [place], [address], 08/27/2022 13:09:09 08/27/20 22 08/27/2022 CBC/C OMPLE TE BLD COUNT W/DIF F hematocrit 42.9 % 35.7-4 5.7 Not Available [facility] (Lab) [address] [place], [address], 08/27/2022 13:09:09 08/27/20 22 08/27/2022 CBC/C OMPLE TE BLD COUNT W/DIF F mean red cell volume 96.8 fL 82.0-9 9.0 Not Available [facility] (Lab) [address] [place], [address], 08/27/2022 13:09:09 08/27/20 22 08/27/2022 CBC/C OMPLE TE BLD COUNT W/DIF F mean red cell hemoglobin 31.2 pg 27.0-3 3.0 Not Available [facility] (Lab) [address] [place], [address], 08/27/2022 13:09:09 08/27/20 22 08/27/2022 CBC/C OMPLE TE BLD COUNT W/DIF F mean RBC HGB concentratio n 32.2 g/dL 31.0-3 6.0 Not Available [facility] (Lab) [address] [place], [address], 08/27/2022 13:09:09 08/27/20 22 08/27/2022 CBC/C OMPLE TE BLD COUNT W/DIF F red cell distribution width 14.7 % 11.8-1 5.5 Not Available [facility] (Lab) [address] [place], [address], 08/27/2022 13:09:09 08/27/20 22 08/27/2022 CBC/C OMPLE TE BLD COUNT W/DIF F platelets 151 x10'3 /uL 150-40 0 Not Available [facility] (Lab) [address] [facility] [place], [address], 08/27/2022 13:09:09 08/27/20 22 08/27/2022 CBC/C OMPLE TE BLD COUNT W/DIF F mean platelet volume 13.0 fL 9.0-12 .4 high Not Available [facility] (Lab) [address] [place], [address], 08/27/2022 13:09:09 08/27/20 22 08/27/2022 CBC/C OMPLE TE BLD COUNT W/DIF F neutrophils 56.4 % 39.0-7 2.0 Not Available [facility] (Lab) [address] [place], [address], 08/27/2022 13:09:09 08/27/20 22 08/27/2022 CBC/C OMPLE TE BLD COUNT W/DIF F lymphocytes 24.8 % 16.0-4 7.0 Not Available [facility] (Lab) [address] [place], [address], 08/27/2022 13:09:09 08/27/20 22 08/27/2022 CBC/C OMPLE TE BLD COUNT W/DIF F monocytes 12.6 % 5.0-12 .0 high Not Available [facility] (Lab) [address] [place], [address], 08/27/2022 13:09:09 08/27/20 22 08/27/2022 CBC/C OMPLE TE BLD COUNT W/DIF F eosinophils 4.3 % 1.0-7. 0 Not Available [facility] (Lab) [address] [place], [address], 08/27/2022 13:09:09 08/27/20 22 08/27/2022 CBC/C OMPLE TE BLD COUNT W/DIF F basophils 1.5 % 0.0-2. 0 Not Available [facility] (Lab) [address] [place], [address], 08/27/2022 13:09:09 08/27/20 22 08/27/2022 CBC/C OMPLE TE BLD COUNT W/DIF F immature granulocytes 0.4 % 0.00-0 .50 Not Available [facility] (Lab) [address] [place], [address], 08/27/2022 13:09:09 08/27/20 22 08/27/2022 CBC/C OMPLE TE BLD COUNT W/DIF F neutrophils, absolute count 4.07 x10'3 /uL 1.5-8. 0 Not Available [facility] (Lab) [address] [place], [address], 08/27/2022 13:09:09 08/27/20 22 08/27/2022 CBC/C OMPLE TE BLD COUNT W/DIF F lymphocytes, absolute count 1.79 x10'3 /uL 1.07-3 .43 Not Available [facility] (Lab) [address] [place], [address], 08/27/2022 13:09:09 08/27/20 22 08/27/2022 CBC/C OMPLE TE BLD COUNT W/DIF F monocytes, absolute count 0.91 x10'3 /uL 0.29-0 .99 Not Available [facility] (Lab) [address] [place], [address], 08/27/2022 13:09:09 08/27/20 22 08/27/2022 CBC/C OMPLE TE BLD COUNT W/DIF F eosinophils, absolute count 0.31 x10'3 /uL 0.02-0 .53 Not Available [facility] (Lab) [address] [place], [address], 08/27/2022 13:09:09 08/27/20 22 08/27/2022 CBC/C OMPLE TE BLD COUNT W/DIF F basophils, absolute count 0.11 x10'3 /uL 0.01-0 .08 high Not Available [facility] (Lab) [address] [place], [address], 08/27/2022 13:09:09 08/27/20 22 08/27/2022 CBC/C OMPLE TE BLD COUNT W/DIF F immature granulocytes ,absolute 0.03 x10'3 /uL 0.00-0 .05 Not Available [facility] (Lab) [address] [place], [address], 08/27/2022 13:09:09 08/27/20 22 08/27/2022 CBC/C OMPLE TE BLD COUNT W/DIF F nucleated red blood cells 0.0 % -0 Not Available [facility] (Lab) [address] [place], [address], 08/27/2022 13:09:09 08/27/2008/27/2022 CBC/C OMPLE TE BLD COUNT W/DIF F NRBC# 0.00 x10'3 /uL Not Available [facility] (Lab) [address] [place], [address], 08/27/2022 13:09:09 01/16/20 23 01/15/2023 CBC/C OMPLE TE BLD COUNT W/DIF F white blood cells 9.4 x10'3 /uL 4.2-10 .8 Not Available [facility] (Lab) [address] [place], [address], 01/15/2023 12:06:22 01/16/20 23 01/15/2023 CBC/C OMPLE TE BLD COUNT W/DIF F red blood cells 4.46 x10'6 /uL 3.80-5 .20 Not Available [facility] (Lab) [address] [place], [address], 01/15/2023 12:06:22 01/16/20 23 01/15/2023 CBC/C OMPLE TE BLD COUNT W/DIF F hemoglobin 13.7 g/dL 12.0-1 5.6 Not Available [facility] (Lab) [address] [place], [address], 01/15/2023 12:06:22 01/16/20 23 01/15/2023 CBC/C OMPLE TE BLD COUNT W/DIF F hematocrit 43.4 % 35.7-4 5.7 Not Available [facility] (Lab) [address] [place], [address], 01/15/2023 12:06:22 01/16/20 23 01/15/2023 CBC/C OMPLE TE BLD COUNT W/DIF F mean red cell volume 97.3 fL 82.0-9 9.0 Not Available [facility] (Lab) [address] [place], [address], 01/15/2023 12:06:22 01/16/20 23 01/15/2023 CBC/C OMPLE TE BLD COUNT W/DIF F mean red cell hemoglobin 30.7 pg 27.0-3 3.0 Not Available [facility] (Lab) [address] [place], [address], 01/15/2023 12:06:22 01/16/20 23 01/15/2023 CBC/C OMPLE TE BLD COUNT W/DIF F mean RBC HGB concentratio n 31.6 g/dL 31.0-3 6.0 Not Available [facility] (Lab) [address] [place], [address], 01/15/2023 12:06:22 01/16/20 23 01/15/2023 CBC/C OMPLE TE BLD COUNT W/DIF F red cell distribution width 13.8 % 11.8-1 5.5 Not Available [facility] (Lab) [address] [place], [address], 01/15/2023 12:06:22 01/16/20 23 01/15/2023 CBC/C OMPLE TE BLD COUNT W/DIF F platelets 147 x10'3 /uL 150-40 0 low Not Available [facility] (Lab) [address] [place], [address], 01/15/2023 12:06:22 01/16/20 23 01/15/2023 CBC/C OMPLE TE BLD COUNT W/DIF F mean platelet volume 12.2 fL 9.0-12 .4 Not Available [facility] (Lab) [address] [place], [address], 01/15/2023 12:06:22 01/16/20 23 01/15/2023 CBC/C OMPLE TE BLD COUNT W/DIF F neutrophils 65.6 % 39.0-7 2.0 Not Available [facility] (Lab) [address] [place], [address], 01/15/2023 12:06:22 01/16/20 23 01/15/2023 CBC/C OMPLE TE BLD COUNT W/DIF F lymphocytes 17.1 % 16.0-4 7.0 Not Available [facility] (Lab) [address] [place], [address], 01/15/2023 12:06:22 01/16/20 23 01/15/2023 CBC/C OMPLE TE BLD COUNT W/DIF F monocytes 12.3 % 5.0-12 .0 high Not Available [facility] (Lab) [address] [place], [address], 01/15/2023 12:06:22 01/16/20 23 01/15/2023 CBC/C OMPLE TE BLD COUNT W/DIF F eosinophils 3.8 % 1.0-7. 0 Not Available [facility] (Lab) [address] [place], [address], 01/15/2023 12:06:22 01/16/20 23 01/15/2023 CBC/C OMPLE TE BLD COUNT W/DIF F basophils 0.9 % 0.0-2. 0 Not Available [facility] (Lab) [address] [place], [address], 01/15/2023 12:06:22 01/16/20 23 01/15/2023 CBC/C OMPLE TE BLD COUNT W/DIF F immature granulocytes 0.3 % 0.00-0 .50 Not Available [facility] (Lab) [address] [place], [address], 01/15/2023 12:06:22 01/16/20 23 01/15/2023 CBC/C OMPLE TE BLD COUNT W/DIF F neutrophils, absolute count 6.15 x10'3 /uL 1.5-8. 0 Not Available [facility] (Lab) [address] [place], [address], 01/15/2023 12:06:22 01/16/20 23 01/15/2023 CBC/C OMPLE TE BLD COUNT W/DIF F lymphocytes, absolute count 1.60 x10'3 /uL 1.07-3 .43 Not Available [facility] (Lab) [address] [place], [address], 01/15/2023 12:06:22 01/16/20 23 01/15/2023 CBC/C OMPLE TE BLD COUNT W/DIF F monocytes, absolute count 1.15 x10'3 /uL 0.29-0 .99 high Not Available [facility] (Lab) [address] [place], [address], 01/15/2023 12:06:22 01/16/20 23 01/15/2023 CBC/C OMPLE TE BLD COUNT W/DIF F eosinophils, absolute count 0.36 x10'3 /uL 0.02-0 .53 Not Available [facility] (Lab) [address] [place], [address], 01/15/2023 12:06:22 01/16/20 23 01/15/2023 CBC/C OMPLE TE BLD COUNT W/DIF F basophils, absolute count 0.08 x10'3 /uL 0.01-0 .08 Not Available [facility] (Lab) [address] [place], [address], 01/15/2023 12:06:22 01/16/20 23 01/15/2023 CBC/C OMPLE TE BLD COUNT W/DIF F immature granulocytes ,absolute 0.03 x10'3 /uL 0.00-0 .05 Not Available [facility] (Lab) [address] [place], [address], 01/15/2023 12:06:22 01/16/20 23 01/15/2023 CBC/C OMPLE TE BLD COUNT W/DIF F nucleated red blood cells 0.0 % -0 Not Available [facility] (Lab) [address] [facility] [place], [address], 01/15/2023 12:06:22 01/16/20 23 01/15/2023 CBC/C OMPLE TE BLD COUNT W/DIF F NRBC# 0.00 x10'3 /uL Not Available [facility] (Lab) [address] [place], [address], 01/15/2023 12:06:22 01/16/20 23 01/15/2023 COMPR EHENS JONATHAN METAB OLIC PANEL sodium 140 mmol/ L 137-14 5 Not Available [facility] (Lab) [address] [place], [address], 01/15/2023 12:24:31 01/16/20 23 01/15/2023 COMPR EHENS JONATHAN METAB OLIC PANEL potassium 4.3 mmol/ L 3.5-5. 1 Not Available [facility] (Lab) [address] [place], [address], 01/15/2023 12:24:31 01/16/20 23 01/15/2023 COMPR EHENS JONATHAN METAB OLIC PANEL chloride 106 mmol/ L 98-107 Not Available [facility] (Lab) [address] [place], [address], 01/15/2023 12:24:31 01/16/20 23 01/15/2023 COMPR EHENS JONATHAN METAB OLIC PANEL carbon dioxide 27 mmol/ L 22-30 Not Available [facility] (Lab) [address] [place], [address], 01/15/2023 12:24:31 01/16/20 23 01/15/2023 COMPR EHENS JONATHAN METAB OLIC PANEL anion gap 11.3 mmol/ L 14-22 low Not Available [facility] (Lab) [address] [place], [address], 01/15/2023 12:24:31 01/16/20 23 01/15/2023 COMPR EHENS JONATHAN METAB OLIC PANEL glucose 112 mg/dL 70-99 high Not Available [facility] (Lab) [address] [place], [address], 01/15/2023 12:24:31 01/16/20 23 01/15/2023 COMPR EHENS JONATHAN METAB OLIC PANEL BUN 17 mg/dL 8-19 Not Available [facility] (Lab) [address] [place], [address], 01/15/2023 12:24:31 01/16/20 23 01/15/2023 COMPR EHENS JONATHAN METAB OLIC PANEL creatinine 0.99 mg/dL 0.66-1 .25 Not Available [facility] (Lab) [address] [place], [address], 01/15/2023 12:24:31 01/16/20 23 01/15/2023 COMPR EHENS JONATHAN METAB OLIC PANEL GFR 55 Refer ence Range : [place] ge GFR Healt hy Adult : >60 [...] calcu lator is avail able on the [facility] websi te: [email or web address] :[email or web address]/pr ofess ional s/kdo qi/gf r_cal culat or Not Available [facility] (Lab) [address] [place], [address], 01/15/2023 12:24:31 01/16/20 23 01/15/2023 COMPR EHENS JONATHAN METAB OLIC PANEL alkaline phosphatase 72 U/L 38-126 Not Available [facility] (Lab) [address] [place], [address], 01/15/2023 12:24:31 01/16/20 23 01/15/2023 COMPR EHENS JONATHAN METAB OLIC PANEL alanine aminotransfe rase 12 U/L 0-35 Not Available [facility] (Lab) [address] [place], [address], 01/15/2023 12:24:31 01/16/20 23 01/15/2023 COMPR EHENS JONATHAN METAB OLIC PANEL aspartate aminotransfe rase 31 U/L 15-37 Not Available [facility] (Lab) [address] [place], [address], 01/15/2023 12:24:31 01/16/20 23 01/15/2023 COMPR EHENS JONATHAN METAB OLIC PANEL bilirubin, total 0.90 mg/dL 0.20-1 .30 Not Available [facility] (Lab) [address] [place], [address], 01/15/2023 12:24:31 01/16/20 23 01/15/2023 COMPR EHENS JONATHAN METAB OLIC PANEL calcium 9.8 mg/dL 8.4-10 .2 Not Available [facility] (Lab) [address] [place], [address], 01/15/2023 12:24:31 01/16/20 23 01/15/2023 COMPR EHENS JONATHAN METAB OLIC PANEL total protein 6.8 g/dL 6.3-8. 2 Not Available [facility] (Lab) [address] [place], [address], 01/15/2023 12:24:31 01/16/20 23 01/15/2023 COMPR EHENS JONATHAN METAB OLIC PANEL albumin 4.3 g/dL 3.0-4. 4 Not Available [facility] (Lab) [address] [place], [address], 01/15/2023 12:24:31 01/16/20 23 01/15/2023 COMPR EHENS JONATHAN METAB OLIC PANEL globulin 2.5 g/dL 2.6-4. 2 low Not Available [facility] (Lab) [address] [place], [address], 01/15/2023 12:24:31 01/16/20 23 01/15/2023 COMPR EHENS JONATHAN METAB OLIC PANEL A/G ratio 1.7 ratio 1.0-2. 0 Not Available [facility] (Lab) [address] [place], [address], 01/15/2023 12:24:31 01/16/20 23 01/15/2023 LIPID PANEL cholesterol 127 mg/dL 140-19 9 low NIH OSWALDO NSUS RECOM MENDA TION FOR PAWAN STERO L: ADULT CHILD LOW RISK: <200 <170 BORDE RLINE : <200- 239 ----- HIGH RISK: >240 >200 Not Available [facility] (Lab) [address] [place], [address], 01/15/2023 12:24:49 01/16/20 23 01/15/2023 LIPID PANEL triglyceride s 185 mg/dL 0-150 high NIH OSWALDO NSUS REPOR T RECOM MENDA TION FOR TRIGL YCERI ZORAIDA: ADULT CHILD LOW RISK: <150 ----- BODER LINE: 150-1 99 ----- HIGH RISK: >200 ----- Not Available [facility] (Lab) [address] [place], [address], 01/15/2023 12:24:49 01/16/20 23 01/15/2023 LIPID PANEL HDL cholesterol 57 mg/dL 40- Not Available [facility] (Lab) [address] [place], [address], 01/15/2023 12:24:49 01/16/20 23 01/15/2023 LIPID PANEL [...] WILL NOT BE REPOR RUI. Not Available [facility] (Lab) [address] [place], [address], 01/15/2023 12:24:49 01/16/20 23 01/15/2023 T4 FREE free T4 1.29 NG/dL 0.78-2 .19 Not Available [facility] (Lab) [address] [place], [address], 01/15/2023 12:31:42 01/16/20 23 01/15/2023 TSH thyroid-stim ulating hormone 0.677 uIU/m L 0.465- 4.680 Not Available [facility] (Lab) [address] [place], [address], 01/15/2023 12:39:04 01/16/20 23 01/15/2023 HEMOG LOBIN A1C HA1C 6.0 % 4.0-6. 0 Diabe harman Scree roma Crite adi: <5.7% Consi stent with absen ce of diabe harman 5.7-6 .4% Consi stent with incre ased risk for diabe harman (pred iabet es) >OR=6 .5% Consi stent with diabe harman REFER ENCE: Diabe harman Care 2016, 39(Arnold ppl.1 ):s13 -s22 Not Available [facility] (Lab) [address] [place], [address], 01/15/2023 13:11:47 01/16/20 23 01/15/2023 VITAM IN B12 (MADDY DOMENICA ) vb12 677 pg/mL 239-93 1 Not Available [facility] (Lab) [address] [place], [address], 01/15/2023 18:31:01 01/16/20 23 01/15/2023 FOLAT E, SERUM /PLAS MA folate 5.65 NG/mL 2.76-2 0.0 Not Available [facility] (Lab) [address] [place], [address], 01/15/2023 18:31:05 01/16/20 23 01/15/2023 MICRO ALBUM IN RANDO M URINE microalbumin , urine 36.5 mg/L 0.0-16 .6 high Not Available [facility] (Lab) [address] [place], [address], 01/15/2023 18:38:15 04/23/20 23 04/23/2023 LIPID PANEL cholesterol 123 mg/dL 140-19 9 low NIH OSWALDO NSUS RECOM MENDA TION FOR PAWAN STERO L: ADULT CHILD LOW RISK: <200 <170 BORDE RLINE : <200- 239 ----- HIGH RISK: >240 >200 Not Available [facility] (Lab) [address] [place], [address], 04/23/2023 10:23:37 04/23/20 23 04/23/2023 LIPID PANEL triglyceride s 138 mg/dL 0-150 NIH OSWALDO NSUS REPOR T RECOM MENDA TION FOR TRIGL YCERI ZORAIDA: ADULT CHILD LOW RISK: <150 ----- BODER LINE: 150-1 99 ----- HIGH RISK: >200 ----- Not Available [facility] (Lab) [address] [place], [address], 04/23/2023 10:23:37 04/23/20 23 04/23/2023 LIPID PANEL HDL cholesterol 52 mg/dL 40- Not Available [facility] (Lab) [address] [place] [address], [address], 04/23/2023 10:23:37 04/23/20 23 04/23/2023 LIPID PANEL [...] WILL NOT BE REPOR RUI. Not Available [facility] (Lab) [address] [place], [address], 04/23/2023 10:23:37 04/23/20 23 04/23/2023 COMPR EHENS JONATHAN METAB OLIC PANEL sodium 141 mmol/ L 137-14 5 Not Available [facility] (Lab) [address] [place], [address], 04/23/2023 10:23:48 04/23/20 23 04/23/2023 COMPR EHENS JONATHAN METAB OLIC PANEL potassium 4.5 mmol/ L 3.5-5. 1 Not Available [facility] (Lab) [address] [place], [address], 04/23/2023 10:23:48 04/23/20 23 04/23/2023 COMPR EHENS JONATHAN METAB OLIC PANEL chloride 104 mmol/ L 98-107 Not Available [facility] (Lab) [address] [place], [address], 04/23/2023 10:23:48 04/23/20 23 04/23/2023 COMPR EHENS JONATHAN METAB OLIC PANEL carbon dioxide 30 mmol/ L 22-30 Not Available [facility] (Lab) [address] [place], [address], 04/23/2023 10:23:48 04/23/20 23 04/23/2023 COMPR EHENS JONATHAN METAB OLIC PANEL anion gap 11.5 mmol/ L 14-22 low Not Available [facility] (Lab) [address] [place], [address], 04/23/2023 10:23:48 04/23/20 23 04/23/2023 COMPR EHENS JONATHAN METAB OLIC PANEL glucose 103 mg/dL 70-99 high Not Available [facility] (Lab) [address] [place], [address], 04/23/2023 10:23:48 04/23/20 23 04/23/2023 COMPR EHENS JONATHAN METAB OLIC PANEL BUN 24 mg/dL 8-19 high Not Available [facility] (Lab) [address] [place], [address], 04/23/2023 10:23:48 04/23/20 23 04/23/2023 COMPR EHENS JONATHAN METAB OLIC PANEL creatinine 1.05 mg/dL 0.66-1 .25 Not Available [facility] (Lab) [address] [place], [address], 04/23/2023 10:23:48 04/23/20 23 04/23/2023 COMPR EHENS JONATHAN METAB OLIC PANEL GFR 52 Refer ence Range : [place] ge GFR Healt hy Adult : >60 [...] calcu lator is avail able on the [facility] websi te: https :[email or web address] aguila.ulysses benz/salud guillenal s/kdo qi/gf r_cal culat or Not Available [facility] (Lab) [address] [place], [address], 04/23/2023 10:23:48 04/23/20 23 04/23/2023 COMPR EHENS JONATHAN METAB OLIC PANEL alkaline phosphatase 63 U/L 38-126 Not Available [facility] (Lab) [address] [place], [address], 04/23/2023 10:23:48 04/23/20 23 04/23/2023 COMPR EHENS JONATHAN METAB OLIC PANEL alanine aminotransfe rase 27 U/L 0-35 Not Available [facility] (Lab) [address] [place], [address], 04/23/2023 10:23:48 04/23/20 23 04/23/2023 COMPR EHENS JONATHAN METAB OLIC PANEL aspartate aminotransfe rase 41 U/L 15-37 high Not Available [facility] (Lab) [address] [place], [address], 04/23/2023 10:23:48 04/23/20 23 04/23/2023 COMPR EHENS JONATHAN METAB OLIC PANEL bilirubin, total 0.40 mg/dL 0.20-1 .30 Not Available [facility] (Lab) [address] [place], [address], 04/23/2023 10:23:48 04/23/20 23 04/23/2023 COMPR EHENS JONATHAN METAB OLIC PANEL calcium 9.1 mg/dL 8.4-10 .2 Not Available [facility] (Lab) [address] [place], [address], 04/23/2023 10:23:48 04/23/20 23 04/23/2023 COMPR EHENS JONATHAN METAB OLIC PANEL total protein 6.3 g/dL 6.3-8. 2 Not Available [facility] (Lab) [address] [place], [address], 04/23/2023 10:23:48 04/23/20 23 04/23/2023 COMPR EHENS JONATHAN METAB OLIC PANEL albumin 3.8 g/dL 3.0-4. 4 Not Available [facility] (Lab) [address] [place], [address], 04/23/2023 10:23:48 04/23/20 23 04/23/2023 COMPR EHENS JONATHAN METAB OLIC PANEL globulin 2.5 g/dL 2.6-4. 2 low Not Available [facility] (Lab) [address] [place], [address], 04/23/2023 10:23:48 04/23/20 23 04/23/2023 COMPR EHENS JONATHAN METAB OLIC PANEL A/G ratio 1.5 ratio 1.0-2. 0 Not Available [facility] (Lab) [address] [place], [address], 04/23/2023 10:23:48 04/23/20 23 04/23/2023 MICRO ALBUM IN RANDO M URINE microalbumin , urine <6.0 mg/L 0.0-16 .6 Not Available [facility] (Lab) [address] [place], [address], 04/23/2023 10:27:21 04/23/20 23 04/23/2023 CBC/C OMPLE TE BLD COUNT W/DIF F white blood cells 7.2 x10'3 /uL 4.2-10 .8 Not Available [facility] (Lab) [address] [place], [address], 04/23/2023 10:29:24 04/23/20 23 04/23/2023 CBC/C OMPLE TE BLD COUNT W/DIF F red blood cells 4.20 x10'6 /uL 3.80-5 .20 Not Available [facility] (Lab) [address] [place], [address], 04/23/2023 10:29:24 04/23/20 23 04/23/2023 CBC/C OMPLE TE BLD COUNT W/DIF F hemoglobin 12.8 g/dL 12.0-1 5.6 Not Available [facility] (Lab) [address] [place], [address], 04/23/2023 10:29:24 04/23/20 23 04/23/2023 CBC/C OMPLE TE BLD COUNT W/DIF F hematocrit 39.9 % 35.7-4 5.7 Not Available [facility] (Lab) [address] [place], [address], 04/23/2023 10:29:24 04/23/20 23 04/23/2023 CBC/C OMPLE TE BLD COUNT W/DIF F mean red cell volume 95.0 fL 82.0-9 9.0 Not Available [facility] (Lab) [address] [place], [address], 04/23/2023 10:29:24 04/23/20 23 04/23/2023 CBC/C OMPLE TE BLD COUNT W/DIF F mean red cell hemoglobin 30.5 pg 27.0-3 3.0 Not Available [facility] (Lab) [address] [place], [address], 04/23/2023 10:29:24 04/23/20 23 04/23/2023 CBC/C OMPLE TE BLD COUNT W/DIF F mean RBC HGB concentratio n 32.1 g/dL 31.0-3 6.0 Not Available [facility] (Lab) [address] [place], [address], 04/23/2023 10:29:24 04/23/20 23 04/23/2023 CBC/C OMPLE TE BLD COUNT W/DIF F red cell distribution width 13.0 % 11.8-1 5.5 Not Available [facility] (Lab) [address] [place], [address], 04/23/2023 10:29:24 04/23/20 23 04/23/2023 CBC/C OMPLE TE BLD COUNT W/DIF F platelets 119 x10'3 /uL 150-40 0 low Not Available [facility] (Lab) [address] [place], [address], 04/23/2023 10:29:24 04/23/20 23 04/23/2023 CBC/C OMPLE TE BLD COUNT W/DIF F mean platelet volume 12.9 fL 9.0-12 .4 high Not Available [facility] (Lab) [address] [place], [address], 04/23/2023 10:29:24 04/23/20 23 04/23/2023 CBC/C OMPLE TE BLD COUNT W/DIF F neutrophils 49.0 % 39.0-7 2.0 Not Available [facility] (Lab) [address] [place], [address], 04/23/2023 10:29:24 04/23/20 23 04/23/2023 CBC/C OMPLE TE BLD COUNT W/DIF F lymphocytes 28.2 % 16.0-4 7.0 Not Available [facility] (Lab) [address] [place], [address], 04/23/2023 10:29:24 04/23/20 23 04/23/2023 CBC/C OMPLE TE BLD COUNT W/DIF F monocytes 15.8 % 5.0-12 .0 high Not Available [facility] (Lab) [address] [place], [address], 04/23/2023 10:29:24 04/23/20 23 04/23/2023 CBC/C OMPLE TE BLD COUNT W/DIF F eosinophils 5.7 % 1.0-7. 0 Not Available [facility] (Lab) [address] [place], [address], 04/23/2023 10:29:24 04/23/20 23 04/23/2023 CBC/C OMPLE TE BLD COUNT W/DIF F basophils 1.0 % 0.0-2. 0 Not Available [facility] (Lab) [address] [place], [address], 04/23/2023 10:29:24 04/23/20 23 04/23/2023 CBC/C OMPLE TE BLD COUNT W/DIF F immature granulocytes 0.3 % 0.00-0 .50 Not Available [facility] (Lab) [address] [place], [address], 04/23/2023 10:29:24 04/23/20 23 04/23/2023 CBC/C OMPLE TE BLD COUNT W/DIF F neutrophils, absolute count 3.55 x10'3 /uL 1.5-8. 0 Not Available [facility] (Lab) [address] [place], [address], 04/23/2023 10:29:24 04/23/20 23 04/23/2023 CBC/C OMPLE TE BLD COUNT W/DIF F lymphocytes, absolute count 2.04 x10'3 /uL 1.07-3 .43 Not Available [facility] (Lab) [address] [place], [address], 04/23/2023 10:29:24 04/23/20 23 04/23/2023 CBC/C OMPLE TE BLD COUNT W/DIF F monocytes, absolute count 1.14 x10'3 /uL 0.29-0 .99 high Not Available [facility] (Lab) [address] [place], [address], 04/23/2023 10:29:24 04/23/20 23 04/23/2023 CBC/C OMPLE TE BLD COUNT W/DIF F eosinophils, absolute count 0.41 x10'3 /uL 0.02-0 .53 Not Available [facility] (Lab) [address] [place], [address], 04/23/2023 10:29:24 04/23/20 23 04/23/2023 CBC/C OMPLE TE BLD COUNT W/DIF F basophils, absolute count 0.07 x10'3 /uL 0.01-0 .08 Not Available [facility] (Lab) [address] [place], [address], 04/23/2023 10:29:24 04/23/20 23 04/23/2023 CBC/C OMPLE TE BLD COUNT W/DIF F immature granulocytes ,absolute 0.02 x10'3 /uL 0.00-0 .05 Not Available [facility] (Lab) [address] [place], [address], 04/23/2023 10:29:24 04/23/20 23 04/23/2023 CBC/C OMPLE TE BLD COUNT W/DIF F nucleated red blood cells 0.0 % -0 Not Available [facility] (Lab) [address] [place], [address], 04/23/2023 10:29:24 04/23/20 23 04/23/2023 CBC/C OMPLE TE BLD COUNT W/DIF F NRBC# 0.00 x10'3 /uL Not Available [facility] (Lab) [address] [place], [address], 04/23/2023 10:29:24 04/23/20 23 04/23/2023 T4 FREE free T4 1.17 NG/dL 0.78-2 .19 Not Available [facility] (Lab) [address] [place], [address], 04/23/2023 10:32:56 04/23/20 23 04/23/2023 TSH thyroid-stim ulating hormone 0.634 uIU/m L 0.465- 4.680 Not Available [facility] (Lab) [address] [place], [address], 04/23/2023 11:00:11 04/23/20 23 04/23/2023 HEMOG LOBIN A1C HA1C 5.8 % 4.0-6. 0 Diabe harman Scree roma Crite adi: <5.7% Consi stent with absen ce of diabe harman 5.7-6 .4% Consi stent with incre ased risk for diabe harman (pred iabet es) >OR=6 .5% Consi stent with diabe harman REFER ENCE: Diabe ahrman Care 2016, 39(Arnold ppl.1 ):s13 -s22 Not Available [facility] (Lab) [address] [place], [address], 04/23/2023 12:21:03 09/23/20 22 09/23/2022 CT, abdom en + pelvi s, w/ contr ast No observ ation record ed. [id number] [facility] (Radiology) [address] [place], [address], 12/25/2022 05:07:19 09/23/20 22 09/23/2022 CT, abdom en + pelvi s, w/ contr ast [facility] [place] [address] [place] [address] Patien t Name: ARUNA PANTOJA F Access ion #: [id number] Sex: F : 1949 0 Locati [...] 4 [facility] t Name: ARUNA PANTOJA NE F Access ion #: [id number] Sex: F : 1949 0 Exam [...] acute proces s Page 2 of 4 [facility] t Name: ARUNA PANTOJA F Access ion #: [id number] Sex: F : 1949 0 Exam [...] ly signed by: Page 3 of 4 [facility] t Name: ARUNA PANTOJA F Access ion #: [id number] Sex: F : 1949 0 Exam Date: 2021 8:40 AM Exam Name: CT ABDOME N PELVIS W Admitt ing Diagno sis(es ): Wilfrid azevedo MD Signed Date: 2021 5:06 PM (CT) Dictat ed by: Wilfrid azevedo MD DD: 2021 5:06 PM (CT) DT: 2021 5:06 PM (CT) Page 4 of 4 [facility].[id number] [facility] (Imaging) [address] [place], [address], 12/25/2022 05:07:19 01/15/20 23 01/14/2023 XR, abdom en No observ ation record ed. [address], [place], [address], 01/15/2023 11:16:33 03/31/20 23 03/31/2023 , echo ardio gram No observ ation record ed. [address] [facility] [address] , [place], [address], 05/27/2023 12:42:39 04/23/20 24 04/23/2024 imagi ng/di agnos tic resul t No observ ation record ed. [facility] [address], [place], [address], 04/23/2024 12:03:13 01/15/20 25 01/14/2025 imagi ng/di agnos tic resul t No observ ation record ed. [facility] [address] , [place], [address], 01/14/2025 18:14:57 Result Notes Documentation Provider Name and Address Organization Details Recorded Time Ct, Abdomen + Pelvis, W/ Contrast : [facility] [address] [place] [address] Patient Name: TIM PANTOJA Sex: F : 1950 Location: [facility] Attending Physician: BRODY COLLADO Ordering Physician: [...] Isovue 370 intravenous Page 1 of 4 [facility] Patient Name: TIM PANTOJA Sex: F [...] No acute process Page 2 of 4 [facility] Patient Name: TIM PANTOJA Sex: F [...] electronically signed by: Page 3 of 4 [facility] Patient Name: TIM PANTOJA Sex: F : 1950 Exam Date: 09/23/2022 8:40 AM Exam Name: CT ABDOMEN PELVIS W Admitting Diagnosis(es): Wilfrid Solis MD Signed Date: 09/23/2022 5:06 PM (CT) Dictated by: Wilfrid Solis MD (CT) (CT) Page 4 of 4 Not Available [facility] 12/25/2022 05:07:24 Problems Name Problem SNOMED Code Status Onset Date Resolution Date Notes Provider Name and Address Organization Details Recorded Time Chronic kidney disease 092513338 Active 2022 Not Available [facility] 4 10:26:19 Near syncope 936712172 Active 2022 Not Available [facility] 4 10:26:18 Excess panniculus of abdomen 0736798513948 Active 2022 Not Available [facility] 4 10:26:18 Seasonal allergy 763335778 Active 2022 Not Available [facility] 4 10:26:19 Small bowel obstructio n 823637169 Active 2022 Not Available [facility] 4 10:26:18 Transient cerebral ischemia 098148470 Active 2022 Not Available [facility] 4 10:26:18 Abdominal discomfort 76528811 Active 2022 Not Available [facility] 4 10:26:18 Moderate recurrent major depression 10792398 Active 2022 Not Available [facility] 4 10:26:18 Thrombocyt openic disorder 705693077 Active 2022 Not Available [facility] 4 10:26:18 Pain of left wrist 0720941957756 02 Active 2022 Not Available [facility] 4 10:26:18 Skin lesion 85333952 Active 2022 Not Available [facility] 4 10:26:19 Pain of toe of left foot 2324244284457 08 Active 2022 Not Available [facility] 4 10:26:18 Bunion 172678018 Active 2022 Not Available [facility] 4 10:26:18 Diabetes mellitus 50382015 Active 2022 Not Available [facility] 4 10:26:19 Dystrophia unguium 43062814 Active 2022 Not Available [facility] 4 10:26:19 COVID-19 500825988 Active 2022 Not Available [facility] 4 10:26:19 Upper respirator y infection 49730429 Active 2022 Not Available [facility] 4 10:26:19 Tailor's bunion of right foot 6466249011291 109 Active 2019 Not Available [facility] 4 10:26:18 History of diverticul itis 7143981870157 00 Active 2020 Not Available [facility] 4 10:26:18 Cellulitis 481067735 Active Not Available [facility] 4 10:26:18 Hyperchole sterolemia 47457841 Active Not Available [facility] 4 10:26:18 Constipati on 66051278 Active 2022 Not Available [facility] 4 10:26:18 Pain of right elbow joint 6948054844171 9109 Active 2021 Not Available [facility] 4 10:26:18 Blood glucose outside reference range 026672036 Active Not Available [facility] 4 10:26:18 Localized, 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 159057328 Active 2019 Not Available [facility] 4 10:26:18 Tibialis posterior tendinitis 712409893 Active Not Available [facility] 4 10:26:18 Dog bite - wound 836805800 Active Not Available [facility] 4 10:26:18 Hypertrigl yceridemia 822382633 Active 2021 Not Available [facility] 4 10:26:18 Diverticul itis 513474163 Active 2016 Not Available [facility] 4 10:26:18 Localized, primary osteoarthr itis of elbow 074752121 Active Not Available [facility] 4 10:26:18 Type 2 diabetes mellitus without complicati on 817133828 Active 2019 Not Available [facility] 4 10:26:18 Pain in left foot 1888498995714 07 Active Not Available [facility] 4 10:26:18 Depressive disorder 56321219 Active Not Available [facility] 4 10:26:18 Sinusitis 43844946 Active Not Available [facility] 4 10:26:18 Osteoarthr itis 468946251 Active Not Available [facility] 4 10:26:18 Diaphragma tic hernia 90420259 Active Not Available [facility] 4 10:26:18 Pharyngiti s 526910609 Active Not Available [facility] 4 10:26:18 Body mass index 40+ - severely obese 501582223 Active 2017 Not Available [facility] 4 10:26:18 Hypothyroi dism 51464914 Active Not Available [facility] 4 10:26:18 Bunion 811587884 Active 2019 Not Available [facility] 4 10:26:18 History of laparoscop ic adjustable gastric banding 375217010 Active 2020 Not Available [facility] 4 10:26:18 Arthritis of elbow 213252765 Active 2021 Not Available [facility] 4 10:26:19 Pain of shoulder region 32801698 Active 2021 Not Available [facility] 4 10:26:19 Pain of shoulder region 33185780 Active 2021 Not Available [facility] 4 10:26:19 Anxiety 12733869 Active 2021 Not Available [facility] 4 10:26:19 Cough 87820878 Active Not Available [facility] 4 10:26:19 Talipes planus 70735403 Active Not Available [facility] 4 10:26:19 Hyperlipid emia 98911444 Active Not Available [facility] 4 10:26:19 Essential hypertensi on 37573102 Active 2016 Not Available [facility] 4 10:26:19 Obstructiv e sleep apnea syndrome 13365505 Active 2016 Not Available [facility] 4 10:26:19 Bursitis 83817127 Active Not Available [facility] 4 10:26:19 Fatigue 26611822 Active Not Available [facility] 4 10:26:19 Problem Notes None recorded. Procedures Surgical History Date Name Laterality Status Provider Name and Address Organization Details Recorded Time 06/03/20 23 Nail Debridement completed Massimo Porter DPM [address] [facility], [place] [address], [place], [address], [employer] 06/03/2023 10:21:02 04/24/20 23 Medicare Wellness CPT Code, subsequent completed Opal Hyde RN [employer] 04/24/2023 14:31:12 07/04/20 22 EGD completed Not Available [facility] 12/25/2022 04:42:48 07/06/20 21 Most Recent Bone Density completed Not Available [facility] 12/25/2022 04:42:42 01/24/20 21 abdominoplasty completed Not Available [facility] 12/25/2022 04:42:48 07/01/20 13 Date of Last Colonoscopy completed Not Available [facility] 12/25/2022 04:42:42 Abdominal Surgery completed Not Available [facility] 12/25/2022 04:42:48 Cataract Surgery completed PRIYANKA Adams [employer] 01/16/2023 11:35:24 Imaging Results None recorded. Procedure Notes None recorded. Medical Equipment None Reported. Allergies Allergen ID Allergen Name Allergen Category Reaction Reaction Severity Criticality Documentation Date Start Date Code Code System Note Provider Name and Address Organization Details Recorded Time 8753 Demerol medicatio n vomiting Not available Not available 12/25/2022 20443 1 RxNorm Not Available [facility] 3 05:06:32 8754 codeine medicatio n vomiting Not available Not available 12/25/2022 2670 RxNorm Not Available [facility] 3 05:06:32 Medications Name Sig Start Date [...] administ ered by the provider 01/[address] [facility]: [phone]- Not Available Not Available Not [...] Not Available Not Available No t Available [employer] Ultra2 Meter kit USE DIRECTED TO TEST [...] % 97 % 72 /min 97.2 [degF] 67737.0 8 g 130/80 mm[Hg] Not Available [facility] 3 04:46:48 Date Recorded Body height Body mass index (BMI) Body weight Body temperature Heart rate Systolic And Diastolic Provider Name and Address Organization Details Last Updated DateTime 3 154.94 cm 27.2 kg/m2 00574.3 g 97.1 [degF] 66 /min 114/66 mm[Hg] PRIYANKA Adams [employer] [facility] [employer] 3 11:36:55 Date Recorded Body height Body mass index (BMI) Body weight Body temperature Heart rate Systolic And Diastolic Provider Name and Address Organization Details Last Updated DateTime 3 154.94 cm 27.9 kg/m2 39307.8 7 g 97.2 [degF] 78 /min 116/60 mm[Hg] Cyndy Garcia [employer] [facility] 3 14:11:04 Date Recorded Body height Body mass index (BMI) Body weight Heart rate Respiratory rate Oxygen saturation Oxygen saturation in Arterial blood by Pulse oximetry Systolic And Diastolic Provider Name and Address Organization Details Last Updated DateTime 3 154.94 cm 27 kg/m2 29121.7 1 g 65 /min 14 /min 98 % 98 % 115/74 mm[Hg] Nydia Lewis [employer] 3 09:44:05 Date Recorded Body mass index (BMI) Body height Heart rate Body temperature Body weight Systolic And Diastolic Provider Name and Address Organization Details Last Updated DateTime 2 27.6 kg/m2 154.94 cm 90 /min 97.7 [degF] 54101.4 9 g 110/66 mm[Hg] Not Available [facility] 3 04:46:48 Social History Question Answer Notes LastModified by Organizat ion Details LastModified Time Tobacco Smoking Status Never Smoker Not Available [facility] 12/25/2022 04:20:45 Do You Have An Advance Directive? No MIGRATION.06053 58894 Information not available 12/25/2022 Are You Blind Or Do You Have Difficulty Seeing? No MIGRATION.59801 96919 Information not available 12/25/2022 What Is Your Level Of Caffeine Consumption? Moderate MIGRATION.89488 79384 Information not available 12/25/2022 How Much Tobacco Do You Chew? None MIGRATION.42525 47682 Information not available 12/25/2022 In The 14 Days Before Symptom Onset, Have You Had Close Contact With A Laboratory-confir med COVID-19 While That Case Was Ill? No MIGRATION.33473 59561 Information not available 12/25/2022 In The 14 Days Before Symptom Onset, Have You Had Close Contact With A Person Who Is Under Investigation For COVID-19 While That Person Was Ill? No MIGRATION.18336 16989 Information not available 12/25/2022 Are You Deaf Or Do You Have Serious Difficulty Hearing? No MIGRATION.79737 99114 Information not available 12/25/2022 What Type Of Diet Are You Following? REGULAR MIGRATION.41373 82890 Information not available 12/25/2022 Which Illicit Or Recreational Drugs Have You Used? Marijuana Information not available 01/16/2023 What Is The Highest Grade Or Level Of School You Have Completed Or The Highest Degree You Have Received? UC68098-3 MIGRATION.76972 89755 Information not available 12/25/2022 Have There Been Any Changes To Your Family Or Social Situation? No MIGRATION.97803 30823 Information not available 12/25/2022 What Is The Fluoride Status Of Your Home? Unknown MIGRATION.30865 17478 Information not available 12/25/2022 Are There Any Guns Present In Your Home? Yes MIGRATION.47891 14008 Information not available 12/25/2022 Do You Use Insect Repellent Routinely? No MIGRATION.62159 29365 Information not available 12/25/2022 Where Do You Live? [place]House MIGRATION.01246 81568 Information not available 12/25/2022 Do You Have A Medical Power Of Child Care Assistant? No MIGRATION.07409 24645 Information not available 12/25/2022 What Was The Date Of Your Most Recent Tobacco Screening? 06/03/2023 [email or web address] Information not available 06/03/2023 Do You Have Any Pets? Yes MIGRATION.87393 17912 Information not available 12/25/2022 What Is Your Relationship Status? MIGRATION.41157 89841 Information not available 12/25/2022 Do You Use Your Seat Belt Or Car Seat Routinely? Yes MIGRATION.37445 99325 Information not available 12/25/2022 Do You Have Smoke And Carbon Monoxide Detectors In Your Home? Yes MIGRATION.93216 36806 Information not available 12/25/2022 Are You Passively Exposed To Smoke? No MIGRATION.92522 58525 Information not available 12/25/2022 Are There Any Smokers In Your House? No MIGRATION.40319 85292 Information not available 12/25/2022 How Much Tobacco Do You Smoke? No MIGRATION.58940 27871 Information not available 12/25/2022 Do You Use Sunscreen Routinely? No MIGRATION.15593 46683 Information not available 12/25/2022 Has Tobacco Cessation Counseling Been Provided? No N/a MIGRATION.37811 56816 Information not available 12/25/2022 How Many Years Have You Smoked Tobacco? 0 MIGRATION.02431 31325 Information not available 12/25/2022 Have You Recently Traveled Abroad? No MIGRATION.14255 72422 Information not available 12/25/2022 Have You Used IV Drugs? No Information not available 01/16/2023 Do You Have Difficulty Walking Or Climbing Stairs? No MIGRATION.68866 20902 Information not available 12/25/2022 Do You Have Any Dietary Restrictions? No MIGRATION.14298 97694 Information not available 12/25/2022 Sex: Female Functional Status Question Answer Note LastModified by Organizat ion Details LastModified Time Do you use any illicit or recreational drugs? Yes Information not available 01/16/2023 Do you or have you ever used any other forms of tobacco or nicotine? No MIGRATION.940738 6769 Information not available 12/25/2022 What is your level of alcohol consumption? None MIGRATION.457696 8222 Information not available 12/25/2022 Do you or have you ever used smokeless tobacco? Never used smokeless tobacco MIGRATION.178987 2895 Information not available 12/25/2022 Do you have transportation difficulties? No MIGRATION.493039 2824 Information not available 12/25/2022 Are you able to walk? YESWOREST MIGRATION.466982 6645 Information not available 12/25/2022 Do you have difficulty doing errands alone? No MIGRATION.609201 8156 Information not available 12/25/2022 Are you able to care for yourself? 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 No MIGRATION.283191 1327 Information not available 12/25/2022 Do you or have you ever used e-cigarettes or vape? Never used electronic cigarettes MIGRATION.003468 5914 Information not available 12/25/2022 What is your exercise level? None MIGRATION.883124 8638 Information not available 12/25/2022 Mental Status Question Answer Note LastModified by Organizat ion Details LastModified Time Do you feel stressed (tense, restless, nervous, or anxious, or unable to sleep at night)? BG12226-2 MIGRATION.58168770 26 Information not available 12/25/2022 Do you have difficulty concentrating, remembering or making decisions? No MIGRATION.92541867 26 Information not available 12/25/2022 Family History Relationship Description Onset Age of this Age Resolved Age Notes LastModified by Organization Details LastModified Time Maternal Grandfather Diabetes mellitus MIGRATION.085 [id number] Not available 12/25/2022 04:42:52 Mother Diabetes mellitus MIGRATION.697 [id number] Not available 12/25/2022 04:42:52 Father Heart disease MIGRATION.452 [id number] Not available 12/25/2022 04:42:52 Sister Malignant tumor of stomach MIGRATION.095 2587662 Not available 12/25/2022 04:42:52 Medical History Condition [...] mcg/0.3 mL dose 2 completed Not Available [facility] 12/16/2023 10:26:20 COVID-19, mRNA, LNP-S, PF, 30 mcg/0.3 mL dose 2 completed Not Available [facility] 12/16/2023 10:26:20 Influenza, high-dose, quadrivalent, PF 2 completed Not Available [facility] 12/16/2023 10:26:19 COVID-19, mRNA, LNP-S, PF, 30 mcg/0.3 mL dose 1 completed Not Available [facility] 12/16/2023 10:26:20 SARS-COV-2 (COVID-19) vaccine, UNSPECIFIED 1 completed Not Available [facility] 12/16/2023 10:26:20 SARS-COV-2 (COVID-19) vaccine, UNSPECIFIED 1 completed Not Available [facility] 12/16/2023 10:26:20 Pneumococcal conjugate PCV 13 9 completed Not Available [facility] 12/16/2023 10:26:20 Influenza, split virus, quadrivalent, preservative 9 completed Not Available [facility] 12/16/2023 10:26:19 influenza, unspecified formulation 7 completed Not Available [facility] 12/16/2023 10:26:20 tetanus toxoid, unspecified formulation 5 completed Not Available [facility] 12/16/2023 10:26:20 pneumococcal polysaccharide PPV23 2 completed Not Available [facility] 12/16/2023 10:26:20 Influenza, high-dose, quadrivalent, PF 1 completed Not Available [facility] 12/16/2023 10:26:19 Influenza, high-dose, trivalent, PF 8 completed Not Available [facility] 12/16/2023 10:26:20 Influenza, split virus, quadrivalent, preservative 6 completed Not Available [facility] 12/16/2023 10:26:19 Influenza, split virus, trivalent, preservative 4 completed Not Available [facility] 12/16/2023 10:26:20 Influenza, split virus, trivalent, preservative 3 completed Not Available [facility] 12/16/2023 10:26:20 zoster live 3 completed Not Available [facility] 12/16/2023 10:26:20 Past Encounters Encounter ID Performer Location Encounter Start Date Encounter Closed Date Diagnosis/Indication Diagnosis SNOMED-CT Code Diagnosis ICD10 Code Diagnosis Note [id number] Brody mora MD S_[facility] Internal Med [facility] [address] [facility] [address] [place] [address] 02/06/2021 00:00:00 03/15/2021 09:12:55 [id number] Brody mora MD S[facility] Internal Med [facility] [address] [facility] [address] [place] [address] 03/15/2021 00:00:00 03/20/2021 09:36:32 [id number] [facility] Pulmonolo [facility] [place] [address] [place] [address] 04/10/2021 00:00:00 04/10/2021 13:28:43 [id number] Brody mora MD S_[facility] Internal Med [facility] [address] [facility] [address] 05/15/2021 00:00:00 05/16/2021 13:12:12 [id number] Omero farley MD S_[facility] General Surgery [address] [facility] [address] 06/12/2021 00:00:00 06/12/2021 14:14:33 [id number] Brody mora MD S_[facility] Internal Med [facility] [address] [facility] [facility] [address] [place] [address] 06/21/2021 00:00:00 06/21/2021 11:10:32 [id number] _ATHN_MIGR ATION_1 _ATHENA_M IGRATION_ DEFAULT_1 _1 , 07/09/2021 00:00:00 07/09/2021 17:02:21 [id number] Brody mora MD S_[facility] Internal Med [facility] [address] [facility] [address] 08/14/2021 00:00:00 08/15/2021 17:19:35 [id number] MD ANN BrownS_GMG Internal Med [facility] [address] [facility], [place] [address] 11/19/2021 00:00:00 01/21/2022 15:53:56 [id number] MD ANN BonnerS_GMG Ortho [place] [address] [place] [address] 12/18/2021 00:00:00 12/18/2021 16:56:08 [id number] MD ANN BrownS_GMG Internal Med [place] [address] [facility] [address] [place] [address] 01/31/2022 00:00:00 03/26/2022 14:20:03 [id number] MD CURT Bonner_GMG Ortho [place] [address] [facility] [address] [place] [address] 03/27/2022 00:00:00 04/12/2022 11:43:40 [id number] MD ANN BrownS_[facility] Internal Med [place] [address] [facility] [address] [place] [address] 06/06/2022 00:00:00 07/25/2022 16:43:39 [id number] Brody mora MD [facility] Internal Med [place] [address] [facility] [address] [place] [address] 06/27/2022 00:00:00 06/27/2022 12:14:26 [id number] MD ANN BrownS_[facility] Internal Med [place] [address] [facility] [address] [place] [address] 09/17/2022 00:00:00 09/17/2022 11:57:41 [id number] Jelena Villeda, [facility]- [facility] Pulmonolo gy [place] [address] [place] [address] 11/11/2022 00:00:00 11/11/2022 13:01:48 [id number] Brody mora MD AHS_[facility] Internal Med [facility] 15 [address] [facility], [place] [address] [place] [address] 01/16/2023 11:06:15 01/16/2023 12:42:18 Screening - NAD 476153113 Z13.9 C-scope: S/p surgery for diverticul itis [...] her understand ing of the above Hyperlipidemia 53123624 E78.5 On rosuvastat in 40mg daily, but stopped this on her own, will need to restart 09/17/2022 Not on vascepaGet labs 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 141952326 E11.9 On glipizide will decrease to 2.5mg [...] well nowGet labs Chronic ki dney disease 352856587 N18.[address] Benavides On calcitriol On vit d weekly On lokelma (to treat high K), but not taking this as per her 11/19/2021 On mag ox Obstructiv e sleep apnea syndrome 57710972 G47.33 On CPAPSee pulmonary History of bariatric surgical procedure 677537283 Z98.[address] Mccray 07/09/2021 : Did not do the EGD as she was told to go an 1.5 hour awayGet a referral to Dr Narayan GI 11/19/2021 Hypothyroidism 60962636 E03.9 On euthyrox 50mcgs daily US thyroid 07/06/2021 : Neg Pain of ri ght elbow joint 4127578364 0452559 M25.521 Still c/o pain and unable to extend the elbowAlso c/o pain in the R wrist Dr Calderon 12/18/2021 , 03/27/2022 , may need elbow arthroplas ty, and cardiac clearance, she did see Bg Zaldivar on 06/12/2022 as per her history today 09/17/2022 and was told no surgery needed Near syncope 887965501 R 55 [facility] 08/16/2022 , Dr Foley, next apt is in 6 months Diaphragmatic hernia 398 98672 K44.9 S/p [place] [facility], 07/04/2022 , EGD 07/04/2022 Dr Narayan Essential hypertension 99262413 I10 S/p Roldan ICD 020: Seen in [...] 6 months Moderate r ecurrent major depression 42782302 F33.1 On venlafaxin e ER 75mg dailyOn xanax 0.5mg daily as needed but uses this very rarelyOn buspirone 10mg po bid all side effects explained to her Does well, not suicidal or homicidalD eclines any psychiatry referrals Excess yousif niculus of abdomen 4999769519 101 E65 S/p surgery Dr Funes, she self referred to him Infected wound on 02/24/2021 and was readmitted , wound exploratio n and packing done in OR by Dr Lazo on 02/24/2021 Does well nowOn tramadol, advised to not take this often Small glenda l obstruction 966409775 K56.609 Admitted [facility], d/c 01/22S/p resection 01/16/2022 , treated with IV antibiotic s and PICC line as was NPO 01/22/2022 :CMP: Gluc 100, AST 37HCBC: WBC 10.8H, H/H 10.8/33.5 Does well now Thrombocyt openic disorder 547897400 D69.6 Dr Willis 04/25/2022 Transient cerebral ischemia 628696031 G45.9 This is new history as per herShe has seen a neurologis t in [place], cannot recall the nameShe has signed a LUDMILA and will call with the name Dr Hernandez 02/18/2022 Screening mammography 24 139024 Z12.31 Constipation 38226842 K5 9.00 Did see WILFREDO Roland [employer]ER on 01/14/2023 and did do an xray abd, now is on linzess as per her history Pain of left wrist 91056 75563 53218 M25.532 S/p EMG done by Dr Brand an apt with hand surgery [id number] Brody mora MD S_[facility] Internal Med [facility] 15 [address] [facility], [place] [address] [place] [address] 04/24/2023 13:58:13 04/24/2023 14:35:06 Screening - NAD 207365957 Z13.9 C-scope: S/p surgery for diverticul itis 08/12/[address] Narayan 02/05/2023 , s/p c-scope 10/2022 Mammogram: 02/26/18 Neg 9: Neg 021: NegOrdered PAP: Not having any complaints declines any referrals at this time DEXA: 02/26/18: Osteopenia and is on ca and vit DDEXA: 07/06/2021 : Osteopenia [facility] 09/19/2019 , get #23UTD on zosterGet the TdUTD on COVID 19 01/14/2021 ADDENDUM: 08/06/18:Heidy Rose filled out for her today RTC in 3 monthsDo labsER if worseshe did verbalize her understand ing of the above Hyperlipidemia 90307829 E78.5 On rosuvastat in 40mg daily, but stopped this on her own, will need to restart 09/17/2022 Not on vascepaGet labs 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 492432985 E11.9 On glipizide will decrease to 2.5mg [...] labs, does well Chronic ki dney disease 223412559 N18.[address] Benavides On calcitriol On vit d weekly On lokelma (to treat high K), but not taking this as per her 11/19/2021 On mag ox Obstructiv e sleep apnea syndrome 40751172 G47.33 On CPAPSee pulmonary History of bariatric surgical procedure 687336310 Z98.[address] Mccray 07/09/2021 : Did not do the EGD as she was told to go an 1.5 hour awayGet a referral to Dr Narayan GI 11/19/2021 Dr Narayan 02/05/2023 , started on linzess, f/u in 3 monthsNot taking linzess now Hypothyroidism 09083102 E03.9 On euthyrox 50mcgs daily US thyroid 07/06/2021 : Neg Pain of ri ght elbow joint 1517443330 9751606 M25.521 Still c/o pain and unable to extend the elbowAlso c/o pain in the R wrist Dr Calderon 12/18/2021 , 03/27/2022 , may need elbow arthroplas ty, and cardiac clearance, she did see Bg Zaldivar on 06/12/2022 as per her history 09/17/2022 and was told no surgery needed Near syncope 568759104 R 55 [facility] 08/16/2022 , Dr Foley, next apt is in 6 months Diaphragmatic hernia 398 58374 K44.9 S/p [place] [facility], 07/04/2022 , EGD 07/04/2022 Dr Narayan Essential hypertension 70320191 I10 S/p Roldan ICD 020: Seen in ER CNE as the [employer]ot[employer] ICD was firing, as per Dr Alejandra this is lead noise and not true v-tach, pt d/c with f/u in Dr Alejandra' s office On ASAOn entresto 24-26mg bid Dr FoleyOn sotalol 80mg bid, changed to 40mg bid post d/c [place] 01/22/2022 On mag ox Sees [facility] Dr Foley last OV 02/28/2023 , next in 6 months Moderate r ecurrent major depression 23617569 F33.1 On venlafaxin e ER 75mg dailyOn xanax 0.5mg daily as needed but uses this very rarelyOn buspirone 10mg po bid all side effects explained to her Does well, not suicidal or homicidalD eclines any psychiatry referrals Excess yousif niculus of abdomen 7397253633 101 E65 S/p surgery Dr Funes, she self referred to him Infected wound on 02/24/2021 and was readmitted , wound exploratio n and packing done in OR by Dr Lazo on 02/24/2021 Does well nowOn tramadol, advised to not take this often Small glenda l obstruction 541541620 K56.609 Admitted [facility], d/c 01/22S/p resection 01/16/2022 , treated with IV antibiotic s and PICC line as was NPO 01/22/2022 :CMP: Gluc 100, AST 37HCBC: WBC 10.8H, H/H 10.8/33.5 Does well now Thrombocyt openic disorder 851327692 D69.6 Dr Willis 02/28/2023 , f/u in 6 months Transient cerebral ischemia 853204716 G45.9 This is new history as per herShe has seen a neurologis t in [place], cannot recall the nameShe has signed a LUDMILA and will call with the name Dr Hernandez 02/18/2022 Screening mammography 24 821172 Z12.31 Constipation 36012923 K5 9.00 Did see WILFREDO Roland [employer]ER on 01/14/2023 and did do an xray abd, now is on linzess as per her history Pain of left wrist 68385 74712 39737 M25.532 S/p EMG done by Dr HernandezGet an apt with hand surgery Screening for osteoporosis 761832712 Z13.820 Adult heal th examination 990703589 Z00.00 Screening for disorder 915369175 Z13.9 Skin lesion 42288634 L98 .9 Left anterior leg, small tender lesion noted, refer to Dr Cm [id number] Massimo Porter DPM [facility] [place] [address] [facility] [address] [place] [address] 06/03/2023 09:34:08 06/03/2023 10:36:29 Pain of toe of left foot 5137746981 11481 M79.675 left 2nd previous surgeryxra ys orderedcon t Supportive shoe gearfollow -up in 3 months Bunion 461660970 M21.61 1 xrays orderedfol low-up x-rays Osteoarthritis 737751366 M19.90 right midfootxra ys orderedfol low-up x-rays Diabetes mellitus 805752 09 E11.9 Patient educated on neuropathy , diabetes, diabetic diet, and daily foot exams. Patient is to check feet daily for new wounds, blisters, redness to prevent infection and ulceration s to the feet. Patient will return to clinic in 3 months for diabetic foot workup. 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, pain is sharp and hurts more with a meteorology instructor OV 04/07/18ACV:She is here as she is having headaches, she states that she may have knocked [facility], is to get the new leads this Thrusday at [facility] with Dr Cabrera states that she [...] the eliquis, [facility]ACV:Here for a rash under her [...] but was seen in the ER at [facility] yesterday for a pre syncopal episode, states that she did have a CT head and labs and was d/c home to follow up with her PCPExtensive ROS noted for CVS and CNSShe is here with her Naresh recent labs OV 01/31/2022:TCM: d/c 01/22/2022 [facility] for SBO, s/p resection on 01/15/2022, Dr Neri with her , feels Gerri does state that she has seen a neurologist in [place], she was referred by her spool sorter as there was concern about her having [...] do the labs Brody Collado MD [address] [facility], [facility] [address], [place], [address], [facility] [place] [employer] 01/16/2023 13:11:27 3 text/html Here to establish [...] 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 is R HD, 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, pain is sharp and hurts more with a gripOV 04/07/18ACV:She is here as she is having headaches, she states that she may have knocked the lead of the pacemaker [facility], is to get the new leads this Thrusday at [facility] with Dr Cabrera states that she [...] but was seen in the ER at [facility] yesterday for a pre syncopal episode, states that she did have a CT head and labs and was d/c home to follow up with her PCPExtensive ROS noted for CVS and CNSShe is here with her Naresh recent labsOV 01/31/2022:TCM: d/c 01/22/2022 [facility] for SBO, s/p resection on 01/15/2022, Dr Neri with her , feels Gerri does state that she has seen a neurologist in [place], she was referred by her spool sorter as there was concern about her having [...] stool Brody Collado MD [address], [place] [address], [place], [address], [facility] [employer] [facility] [employer] 08/18/2023 14:50:39 3 text/html . Patient is [...] complaints. Massimo Porter DPM [address], [facility] [address], [place], [address], [employer] [facility] [employer] 06/03/2023 10:33:42 OBGyn Episode No OBEpisode recorded.
--- OUTSIDE RECORDS SUMMARY | 2025-05-12 01:14 | XMS_ITS | Clinical Summary ---
Author Organization [facility] [employer] Address [address] [place] [address] Care Team Providers Care Group Exercise Instructor Name Role Phone Duglas Collado MD Primary Care Provider Source Comments [facility] Affiliates and Associated Physician Practices is amultiple site organization consisting of ambulatory clinics and hospital sitesin [place], [place], [place] and [place]. This disclosure is being madepursuant to the Care Everywhere program and may not contain all information available regarding this patient. Last updated 18.[facility] [employer] Allergies Active Allergy Reactions Criticality Noted Date Comments Codeine Nausea and/or Vomiting,Vomiting Medium 05/27 Meperidine Nausea and/or Vomiting,Vomiting Medium 05/27 Medications * Be aware that medications may not be up to date on this document. Alwaysverify current medications with the patient. loratadine (CLARITIN) 10 MG tablet Take 10 mg by mouth once daily 9 Active vitamin D, ergocalciferol, (DRISDOL) 1.25 MG (55074 UT) capsule Take 50,000 Units by mouth [...] on file Legal Sex Female 7:00 PM CONTRACT RECRUITER Gender Identity Not on file Sexual Orientation Not on file Last Filed Vital Signs Vital Sign Reading Time Taken Comments Blood Pressure 110/68 10/28/2019 2:58 PM CONTRACT RECRUITER Pulse 77 10/28/2019 2:58 PM CONTRACT RECRUITER Temperature 36.7 C (98.1 F) 10/28/2019 2:58 PM CONTRACT RECRUITER Respiratory Rate 18 10/28/2019 2:58 PM CONTRACT RECRUITER Oxygen Saturation 96% 10/28/2019 2:58 PM CONTRACT RECRUITER Inhaled Oxygen Concentration - - Weight 87.2 kg (192 lb 4.8 oz) 10/28/2019 2:58 P M CONTRACT RECRUITER Height 165.1 cm (5' 5) 10/28/2019 2:58 PM CONTRACT RECRUITER Body Mass Index 32 10/28/2019 2:58 PM CONTRACT RECRUITER Plan of Treatment Health Maintenance Due Date [...] - URINE PROTEIN SCREENING 10/27/2024 INFLUENZA VACCINE (#1) 2025 9, 08/09/2019, 08/05/2018, Additional history exists Respiratory Syncytial [...] Most Recently Relevant to Health Maintenance Insurance [employer] MEDICARE [facility] MEDICARE [employer] SELF PAY NO INSURANCE Member Subscriber Plan / Payer (Ef fective for All Dates) Name:Katheryn Phillips Member ID:Not on file Relation to Subscriber:Not on file Name:KATHERYN PHILLIPS Subscriber ID:Not on file (Home) Address: [address] [address] Payer ID:Not on file Group ID:Not on file Type:Self Pay Address: [place], [place] * Guarantor: KATHERYN PHILLIPS Account Type Relation to Patient Date of Phone Billing Address Personal/Family [address] [address] MEDICARE [employer] * Guarantor: KATHERYN PHILLIPS Account Type Relation to Patient Date of Phone Billing Address Personal/Family [address] [address] MEDICARE [employer] * Guarantor: KATHERYN PHILLIPS Account Type Relation to Patient Date of Phone Billing Address Personal/Family [address] [place] [address] MEDICARE [employer] Care Teams Group Exercise Instructor Relationship Specialty Start Date End Date Duglas Collado MD [address] [address] PCP - General Internal Medicine 07/16/19
--- OUTSIDE RECORDS SUMMARY | 2025-05-12 01:14 | XMS_ITS | Continuity of Care Document ---
Author Organization [facility] Address [address] [place] [address] [address] [place] [address] Phone Care Team Providers Care Agate Setter Name Role Phone Jessica Reece Unavailable Unavailable Procedures Procedure Date Office/outpatient Visit, Est Advance Directives Directive Yes / No Effective Date File Name No Information Encounters Encounter Description Practice Location Reason(s) For Visit Diagnoses Date Provider Providers Copied on Encounter Office/outpat ient Visit, Est [facility], [address] [place] [address] [address], [place], [place], [id number], [place] tel:[phone] [facility] No Information 8-201 0 Shanell Lopez. [address] , [address], [place], [address], [place]. tel:[phone] Family History Family Member Type Diagnosis Age [...]
[2025-05-12 12:34] VITALS: BP 142/76; PULSE 76; RESP 16; TEMP 36.6; O2SAT 98; BMI 27.8
[2025-05-12] MEDS: LACTATED RINGERS 1,000 ML 150 ML IV CONT (12:45)
--- NOTE | 2025-05-12 13:11 | P.HP_ITS ---
History of Present Illness History of Present Illness Consent: Risks, benefits, and alternatives have been discussed and questions answered. Patient agrees to proceed with procedure. Chief complaint: Bariatric surgery status Narrative: Katheryn Pantoja is a 74 year old female with previous diverticulitis, last colonoscopy 2022, previous ct also showed possible thickening in stomach but this could be from previous lap band but denies any upper gi symptom now Review of Systems Review of Systems: All systems reviewed & are unremarkable except as noted in HPI and below PMFSH Past Medical History Medical History Chronic sinusitis BMI 27.0-27.9,adult Abdominal pain Osteoporosis Afib Hallux valgus (acquired), right foot Arthritis of foot, right, degenerative Right foot pain Mass of right foot Irritable bowel syndrome with constipation Anxiety Nausea BMI 28.0-28.9,adult Encounter for routine adult health examination with abnormal findings Shoulder pain, bilateral Encounter for Medicare annual wellness exam Follow up Post-menopausal Elbow pain, right BMI 29.0-29.9,adult Encounter to establish care 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 This was unknown to the patient. Diverticulitis Cardiac dysrhythmia Patient on sotalol. Hx ventricular dysrhythmia s/p ICD. Hypothyroidism Cardiomyopathy Nonischemic cardiomyopathy Status post PM/ICD insertion. Previous EF of 35% (per patient report). Patient of Dr. Boggs. Type 2 diabetes mellitus Hemoglobin A1c was 5.4% on 02/24/2021. Hypertension Hyperlipidemia Depression Surgical History Surgical History History of exploratory laparotomy 01/15/22 History of hysterectomy Open oophorectomy (unsure of side) and incidental appendectomy as a teenager, and later eventually had a vaginal hysterectomy History of partial colectomy Partial left colectomy secondary to diverticulitis in 2019. Cardiac defibrillator in place History of left knee surgery Status post panniculectomy 12/2020 History of right breast biopsy Benign pathology. History of laparoscopic adjustable gastric banding History of foot surgery History of thumb surgery Family History Family History Sibling Stomach cancer Alcoholism Asthma Breast cancer Thyroid disorder Father Skin cancer Hypertension Heart disease Mother Skin cancer Hypertension Thyroid disorder Other Depression Grandparent Diabetes mellitus Asthma Other Venous thromboembolism Social History Social History (Updated 03/14/25 @ 08:28 by Sarthak Juan MA) Social History: Surrogate decision maker: Jonathan Pantoja, . Code: Full code. Smoking status: Current some day smoker Second hand tobacco smoke exposure: No Alcohol intake: never Substance use: current Substance use type: marijuana Last use: 06/14/24 Do You Feel Safe in your Home?: Yes Lack of Transportation: No Lack of Food: Never True Current Housing: I Have Housing Concerned About Future Housing: No Difficulty Paying Gas/Electric Bills: No Difficulty Paying for Meds: No Currently Unemployed: No Education: High School Diploma/GED Difficulty w/ Childcare or Family Care: No Living arrangements: with family Additional living arrangements comments: Resides in [place] with her . They have 2 children, one from a drug overdose. 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 Gender identity (if verbalized by the patient): Female Spiritual care concerns: No Meds Home Medications and Allergies Home Medications ?Medication ?Instructions ?Recorded ?Confirmed ?Type sacubitril 24 mg-valsartan 26 mg 1 tablet PO BID 01/14/23 05/12/25 History tablet (Entresto) alendronate 70 mg tablet See Rx Instructions .Route 08/18/24 05/12/25 Rx .COMPLEX #4 tabs semaglutide 0.25 mg or 0.5 mg (2 0.5 mg (0.736 mL) subcut WEEKLY #9 11/30/24 05/12/25 Rx mg/3 mL) subcutaneous pen injector mL (Ozempic) levothyroxine 50 mcg tablet See Rx Instructions .Route 12/15/24 05/12/25 Rx .COMPLEX #90 tabs alprazolam 0.5 mg tablet 0.5 mg PO DAILY PRN ANXIETY #30 12/21/24 04/11/25 Rx tabs ondansetron HCl 8 mg tablet 8 mg PO Q8H PRN Nausea #30 tabs 02/04/25 04/11/25 Rx montelukast 10 mg tablet See Rx Instructions .Route 02/23/25 05/12/25 Rx .COMPLEX #90 tabs venlafaxine 75 mg capsule,extended See Rx Instructions .Route 03/13/25 05/12/25 Rx release 24 hr .COMPLEX #180 caps buspirone 10 mg tablet See Rx Instructions .Route 04/25/25 05/12/25 Rx .COMPLEX #60 tabs rosuvastatin 20 mg tablet See Rx Instructions .Route 04/26/25 05/12/25 Rx .COMPLEX #90 tabs sodium sul 1.479 gram-potas ch See Rx Instructions PO PER PKG DIR 05/09/25 Rx 0.188 gram-magnes sul 0.225 gram #24 tabs tablet (Sutab) Allergies Allergy/AdvReac Type Severity Reaction Status Date / Time codeine AdvReac Severe Nausea and Verified 05/12/25 12:31 Vomiting meperidine (From Demerol) AdvReac Severe Nausea and Verified 05/12/25 12:31 Vomiting Vital Signs Vital Signs - 24 hr 05/12/25 12:34 Temperature 97.9 F Pulse Rate 76 Respiratory Rate 16 Blood Pressure 142/76 H Pulse Oximetry 98 Oxygen Delivery Room Air Exam Const: General: comfortable and no acute distress HENMT: Face/Nose/Sinus: Normal nares present Eyes: General: appearance normal, both eyes and all related structures Neck: Neck: no JVD Resp: Auscultation: clear to auscultation bilaterally Cardio: Rate: regular rate Rhythm: regular rhythm GI: Inspection: non-distended GI Palp: Yes Soft to palpation Skin: General skin exam: normal color Neuro: Speech: normal speech Extrem: General: normal to inspection Psych: Mental Status: mental status grossly normal Assessment and Plan Assessment and plan (1) History of laparoscopic adjustable gastric banding: Code(s): Z98.84 - Bariatric surgery status Status: Acute Assessment and Plan: egd (2) Diverticula of colon: Code(s): K57.30 - Diverticulosis of large intestine without perforation or abscess without bleeding Status: Acute Assessment and Plan: asymptomatic now colonoscopy
--- NOTE | 2025-05-12 13:16 | P.PNAN_ITS ---
Anes - Initial Pre Proc Eval Procedure: Operation Date: 05/12/25 13:30 Proposed Procedures p Esophagogastroduodenoscopy & Colonoscopy - Delfin Graves MD Date/Time: 05/12/25 13:16 Surgeon: Delfin Graves MD Pre Op Diagnosis: Bariatric surgery status Patient Data Age: 74 Gender: F Height: 1.52 m Weight: 64.6 kg Last Vital Signs Temp 97.9 F 05/12/25 12:34 Pulse 76 05/12/25 12:34 Resp 16 05/12/25 12:34 BP 142/76 H 05/12/25 12:34 Pulse Ox 98 05/12/25 12:34 O2 Del Method Room Air 05/12/25 12:34 Allergies Allergy/AdvReac Type Severity Reaction Status Date / Time codeine AdvReac Severe Nausea and Verified 05/12/25 12:31 Vomiting meperidine (From Demerol) AdvReac Severe Nausea and Verified 05/12/25 12:31 Vomiting Home Medications ?Medication ?Instructions ?Recorded ?Confirmed ?Type sacubitril 24 mg-valsartan 26 mg 1 tablet PO BID 01/14/23 05/12/25 History tablet (Entresto) alendronate 70 mg tablet See Rx Instructions .Route 08/18/24 05/12/25 Rx .COMPLEX #4 tabs semaglutide 0.25 mg or 0.5 mg (2 0.5 mg (0.736 mL) subcut WEEKLY #9 11/30/24 05/12/25 Rx mg/3 mL) subcutaneous pen injector mL (Ozempic) levothyroxine 50 mcg tablet See Rx Instructions .Route 12/15/24 05/12/25 Rx .COMPLEX #90 tabs alprazolam 0.5 mg tablet 0.5 mg PO DAILY PRN ANXIETY #30 12/21/24 04/11/25 Rx tabs ondansetron HCl 8 mg tablet 8 mg PO Q8H PRN Nausea #30 tabs 02/04/25 04/11/25 Rx montelukast 10 mg tablet See Rx Instructions .Route 02/23/25 05/12/25 Rx .COMPLEX #90 tabs venlafaxine 75 mg capsule,extended See Rx Instructions .Route 03/13/25 05/12/25 Rx release 24 hr .COMPLEX #180 caps buspirone 10 mg tablet See Rx Instructions .Route 04/25/25 05/12/25 Rx .COMPLEX #60 tabs rosuvastatin 20 mg tablet See Rx Instructions .Route 04/26/25 05/12/25 Rx .COMPLEX #90 tabs sodium sul 1.479 gram-potas ch See Rx Instructions PO PER PKG DIR 05/09/25 Rx 0.188 gram-magnes sul 0.225 gram #24 tabs tablet (Sutab) Patient hx anesthesia problems: none Family hx anesthesia problems: none Results Review: All pre-operative results and documents have been reviewed as part of the pre- operative evaluation. 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 This was unknown to the patient. Diverticulitis Cardiac dysrhythmia Patient on sotalol. Hx ventricular dysrhythmia s/p ICD. Hypothyroidism Cardiomyopathy Nonischemic cardiomyopathy Status post PM/ICD insertion. Previous EF of 35% (per patient report). Patient of Dr. Boggs. Type 2 diabetes mellitus Hemoglobin A1c was 5.4% on 02/24/2021. Hypertension Hyperlipidemia Depression Surgical History Surgical History History of exploratory laparotomy 01/15/22 History of hysterectomy Open oophorectomy (unsure of side) and incidental appendectomy as a teenager, and later eventually had a vaginal hysterectomy History of partial colectomy Partial left colectomy secondary to diverticulitis in 2019. Cardiac defibrillator in place History of left knee surgery Status post panniculectomy 12/2020 History of right breast biopsy Benign pathology. History of laparoscopic adjustable gastric banding History of foot surgery History of thumb surgery Family History Family History Sibling Stomach cancer Alcoholism Asthma Breast cancer Thyroid disorder Father Skin cancer Hypertension Heart disease Mother Skin cancer Hypertension Thyroid disorder Other Depression Grandparent Diabetes mellitus Asthma Other Venous thromboembolism Social History Social History Social History: Surrogate decision maker: Jonathan Pantoja, . Code: Full code. Smoking status: Current some day smoker Second hand tobacco smoke exposure: No Alcohol intake: never Substance use: current Substance use type: marijuana Last use: 06/14/24 Do You Feel Safe in your Home?: Yes Lack of Transportation: No Lack of Food: Never True Current Housing: I Have Housing Concerned About Future Housing: No Difficulty Paying Gas/Electric Bills: No Difficulty Paying for Meds: No Currently Unemployed: No Education: High School Diploma/GED Difficulty w/ Childcare or Family Care: No Living arrangements: with family Additional living arrangements comments: Resides in [place] with her . They have 2 children, one from a drug overdose. 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 Gender identity (if verbalized by the patient): Female Spiritual care concerns: No Anes - Eval Final PreProcedure Day of Procedure 05/12/25 13:16 Patient weight: overweight Lungs: normal air movement Airway: Mallampati scale class II Neurological: alert and oriented Last oral intake: >/= 8 hours ASA classification: IV Emergent: no Anesthetic plan: proceed Anesthesia type and monitoring: general GIVS and standard monitoring Results Review: All pre-operative results and documents have been reviewed as part of the pre- operative evaluation. Complicated pt but stable of recent. Stress test approx 2022 nml perfusion. Pt w AICD/pacemaker. HTN, hyperlipidemia. Informed Consent: The patient's anesthetic plan and its attendant risks and benefits were discussed with the patient/family/POA. Questions were solicited and answers p rovided to the satisfaction of the patient/family/POA.
--- NOTE | 2025-05-12 13:31 | SUR.OPER ---
EGD: [id number] COLON: Start 1332
--- NOTE | 2025-05-12 13:39 | S_PTH ---
PATIENT: Katheryn Pantoja LOC: [facility] Pena#:[id number] AGE/SX: 74/F ROOM: RE05/12/[address]: Delfin Graves MD : 1950 BED: DIS: 05/12/2025 SPEC #: [id number] RECD: 05/13/25 07:56 STATUS: ELENA REShvi #: [id number] ANA: 05/12/25 13:[address]: Delfin Graves DEPT: [facility] Surgical RECD BY: Suzanne Duarte ENTERED: 05/13/25 07:56 SP TYPE: Surgical OTHR DR: Jason Goldstein MD Tissues: A - Gastric Biopsy Procedures: Hematoxylin and Eosin Stain Gross and Microscopic Level 4
[2025-05-12 13:42] VITALS: BP 104/66; PULSE 65; RESP 17; O2SAT 99
[2025-05-12 13:52] VITALS: BP 103/81; PULSE 66; RESP 20; O2SAT 100
== END 2025-05-12 14:12 | disposition home or self-care (01) ==
PROVIDERS: PCP Internal Medicine; Referring Provider Nurse Practitioner; Visit Provider Internal Medicine Gastroenterology
PROC: 0DJ08ZZ Inspection of Upper Intestinal Tract, Via Natural or Artificial Opening Endoscopic (ICD-10-PCS; CPT 45378; principal; 2025-05-12 13:30)
DX: K57.30 Diverticulosis of large intestine without perforation or abscess without bleeding (principal); Z98.0 Intestinal bypass and anastomosis status; Z90.49 Acquired absence of other specified parts of digestive tract; Z87.19 Personal history of other diseases of the digestive system; K29.70 Gastritis, unspecified, without bleeding; F17.200 Nicotine dependence, unspecified, uncomplicated; Z98.84 Bariatric surgery status
CPT/HCPCS: 43239; 45378; 82948; 88305; J2003; J2704; J7120

== ENCOUNTER 2025-05-24 08:57 | Outpatient (CLI) | payer MEDICARE, SELFPAY ==
--- OUTSIDE RECORDS SUMMARY | 2025-05-24 09:13 | XMS_ITS | Continuity of Care Document ---
Author Organization [facility] Address [address] [place] [address] [address] [place] [address] Phone Care Team Providers Care Senior Scientist Name Role Phone Jessica Reece Unavailable Unavailable Procedures Procedure Date Office/outpatient Visit, Est Advance Directives Directive Yes / No Effective Date File Name No Information Encounters Encounter Description Practice Location Reason(s) For Visit Diagnoses Date Provider Providers Copied on Encounter Office/outpat ient Visit, Est [facility], [address] [place] [address] [address], [place], [place], [id number], [place] tel:[phone] SEC [facility] No Information 8-201 0 Shanell Lopez. [address] [facility] [address] , [address], [place], [address], [place]. tel:[phone] Family History Family Member Type Diagnosis Age [...]
--- OUTSIDE RECORDS SUMMARY | 2025-05-24 09:13 | XMS_ITS | Data Portability ---
Author Organization [facility], Main Office Address [address] [place] [address] Care Team Providers Care Spindle Maker Name Role Phone BRODY COLLADO Primary Care [...] This note is dictated and transcribed by [employer] Direct [employer]. Loss Prevention Investigator variances may occur. Despite proofreading, typographical errors may occur. [email or web address] Not available 06/03/2023 10:31:35 Plan of Treatment Reminders Order Date Submit Date Provider Last Modified By Organization Details Last Modified Time Details Appointments None recorded. Lab lipid panel, serum 2022 023 [email or web address] [facility] (Lab), [address] [place], [address], 4 13:54:50 CBC w/ auto diff [address] (Lab), [address] [place], [address], 4 13:54:50 TSH, serum or plasma [address] (Lab), [address] [place], [address], 4 13:54:50 T4, free, serum [address] (Lab), [address] [place], [address], 4 13:54:50 CMP, serum or plasma [address] (Lab), [address] [place], [address], 4 13:54:51 vitamin D, 25-hydroxy, total, serum [address] (Lab), [address] [place], [address], 4 17:14:48 glycohemogl obin, total, blood [address] (Lab), [address] [place], [address], 4 13:54:49 microalbumi n, urine [address] (Lab), [address] [place], [address], 4 13:54:50 lipid panel, serum 2022 023 [facility] (Lab), [address] [place], [address], 3 10:23:37 CBC w/ auto diff 2022 023 [facility] (Lab), [address] [place], [address], 3 10:29:24 TSH, serum or plasma 2022 023 [facility] (Lab), [address] [place], [address], 3 11:00:11 T4, free, serum 2022 023 [facility] (Lab), [address] [place], [address], 3 10:32:56 CMP, serum or plasma 2022 023 [facility] (Lab), [address] [place], [address], 3 10:23:48 glycohemogl obin, total, blood 2022 023 [facility] (Lab), [address] [place], [address], 3 12:21:03 microalbumi n, urine 2022 023 [facility] (Lab), [address] [place], [address], 3 10:27:[address] referral 2022 023 Not available 3 12:14:23 nephrologis t referral 2022 023 lili Benavides MD, [address], [address], [place], [address], 4 17:05:18 hematologis t referral 2022 023 [email or web address] Willis MD, [address], [place], [address], 3 12:14:51 cardiologis t referral 2022 023 [email or web address], [address], [address], [place], [address], 3 12:16:17 hand surgeon referral 2022 023 [email or web address] Calderon MD, [address] [place], [address], 3 12:15:45 neurologist referral 2022 023 [email or web address] Hernandez MD, [address] [facility] , [address], [place], [address], 3 12:15:26 feather shaper referral 2022 023 [email or web address] Massimo Porter DPDouglas, [address], [address], [place], [address], 4 17:05:19 general surgeon referral 2022 023 rio Waddell MD, [address], [address], [place], [address], 3 12:16:47 neurologist referral 2022 023 rio Hernandez MD, [address] [facility] , [address], [place], [address], 3 11:01:11 nephrologis t referral 2022 023 rio Benavides MD, [address], [address], [place], [address], 3 17:44:[address] referral 2022 023 [email or web address] Not available 3 18:42:45 hematologis t referral 2022 023 [email or web address] Brandon Willis MD, [address], [place], [address], 3 11:00:29 feather shaper referral 2022 023 [email or web address] Massimo Porter DPM, [address] [facility], [address], [place], [address], 3 17:43:46 hand surgeon referral 2022 023 [email or web address] Calderon MD, [address] [place], [address], 3 10:03:10 Procedures None recorded. Surgeries None recorded. Imaging MAMMO, screening, digital, bilateral 2022 023 [email or web address] [facility] (Radiology), [address] [place], [address], 4 17:05:28 DEXA, axial skeleton 2022 023 [email or web address] [facility] (Radiology), [address] [place], [address], 4 17:14:35 MAMMO, screening, digital, bilateral 2022 023 [email or web address] ([facility]), [address] [place], [address], 3 12:09:29 Medication Orders None recorded. Patient TargetsNo targets recorded. 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[employer] Referral for O bstructive sleep apnea syndrome Referring Physician: Jessica Peña, Encounter Date: 01/16/2023 Pedigree Researcher 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 Referring Physician: Jessica Peña, Encounter Date: 01/16/2023 Freight Receiver Referral for Type 2 diabetes mellitus without complication Referring Physician: Jessica Peña, Encounter Date: 01/16/2023 Referring Physician: Jessica Peña, Encounter Date: 01/16/2023 Neurologist Referral for Tra nsient cerebral ischemia Referring Physician: Jessica Peña, Encounter Date: 01/16/2023 Hand Surgeon Referral for Pa in of left wrist Referring Physician: Jessica Peña, Encounter Date: 01/16/2023 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[employer] Referral for O bstructive sleep apnea syndrome Referring Physician: Jessica Peña, Encounter Date: 04/24/2023 Pedigree Researcher 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 Referring Physician: Jessica Peña, Encounter Date: 04/24/2023 Freight Receiver Referral for Type 2 diabetes mellitus without complication Referring Physician: Jessica Peña, Encounter Date: 04/24/2023 Referring Physician: Jessica Peña, Encounter Date: 04/24/2023 Neurologist Referral for Tra nsient cerebral ischemia Referring Physician: Jessica Peña, Encounter Date: 04/24/2023 Hand Surgeon Referral for Pa in of left wrist Referring Physician: Jessica Peña, Encounter Date: 04/24/2023 Melter Loader Referral for Ne ar syncope Referring Physician: Jessica Peña, Encounter Date: 04/24/2023 General Surgeon Referral for Skin lesion Referring Physician: Brody Collado, Internal Medicine, Encounter Date: 04/24/2023 Results Created Date Observation Date Name Description Value Unit Range Abnormal Flag Note LastModifiedBy Organization Detail LastModifiedTime 08/27/20 22 08/27/2022 FOLAT E, SERUM /PLAS MA folate 5.98 NG/mL 2.76-2 0.0 Not Available [facility] (Lab) [address] [place], [address], 08/27/2022 18:44:29 08/27/20 22 08/27/2022 VITAM IN B12 (MADDY DOMENICA ) vb12 476 pg/mL 239-93 1 Not Available [facility] (Lab) [address] [place], [address], 08/27/2022 18:44:26 08/27/20 22 08/27/2022 MICRO ALBUM IN RANDO M URINE microalbumin , urine <6.0 mg/L 0.0-16 .6 Not Available [facility] (Lab) [address] [place], [address], 08/27/2022 18:09:51 08/27/20 22 08/27/2022 HEMOG LOBIN A1C HA1C 5.5 % 4.0-6. 0 Diabe harman Scree roma Crite adi: <5.7% Consi stent with absen ce of diabe harman 5.7-6 .4% Consi stent with incre ased risk for diabe harman (pred iabet es) >OR=6 .5% Consi stent with diabe harman REFER ENCE: Diabe harman Care 2016, 39(Arnold ppl.1 ):s13 -s22 Not Available [facility] (Lab) [address] [place], [address], 08/27/2022 15:07:49 08/27/20 22 08/27/2022 TSH thyroid-stim ulating hormone 1.980 uIU/m L 0.465- 4.680 Not Available [facility] (Lab) [address] [place], [address], 08/27/2022 13:44:58 08/27/20 22 08/27/2022 T4 FREE free T4 1.19 NG/dL 0.78-2 .19 Not Available [facility] (Lab) [address] [place], [address], 08/27/2022 13:31:42 08/27/20 22 08/27/2022 COMPR EHENS JONATHAN METAB OLIC PANEL sodium 138 mmol/ L 137-14 5 Not Available [facility] (Lab) [address] [place], [address], 08/27/2022 13:22:36 08/27/20 22 08/27/2022 COMPR EHENS JONATHAN METAB OLIC PANEL potassium 4.4 mmol/ L 3.5-5. 1 Not Available [facility] (Lab) [address] [place], [address], 08/27/2022 13:22:36 08/27/20 22 08/27/2022 COMPR EHENS JONATHAN METAB OLIC PANEL chloride 104 mmol/ L 98-107 Not Available [facility] (Lab) [address] [place], [address], 08/27/2022 13:22:36 08/27/20 22 08/27/2022 COMPR EHENS JONATHAN METAB OLIC PANEL carbon dioxide 31 mmol/ L 22-30 high Not Available [facility] (Lab) [address] [place], [address], 08/27/2022 13:22:36 08/27/20 22 08/27/2022 COMPR EHENS JONATHAN METAB OLIC PANEL anion gap 7.4 mmol/ L 14-22 low Not Available [facility] (Lab) [address] [place], [address], 08/27/2022 13:22:36 08/27/20 22 08/27/2022 COMPR EHENS JONATHAN METAB OLIC PANEL glucose 93 mg/dL 70-99 Not Available [facility] (Lab) [address] [place], [address], 08/27/2022 13:22:36 08/27/20 22 08/27/2022 COMPR EHENS JONATHAN METAB OLIC PANEL BUN 17 mg/dL 8-19 Not Available [facility] (Lab) [address] [place], [address], 08/27/2022 13:22:36 08/27/20 22 08/27/2022 COMPR EHENS JONATHAN METAB OLIC PANEL creatinine 0.97 mg/dL 0.66-1 .25 Not Available [facility] (Lab) [address] [place], [address], 08/27/2022 13:22:36 08/27/20 22 08/27/2022 COMPR EHENS JONATHAN METAB OLIC PANEL GFR 57 Refer ence Range : [place] [facility] GFR Healt hy Adult : >60 [...] is avail able on the [facility] websi te: https :[email or web address] aguila.ulysses benz/pr ofess ional s/kdo qi/gf r_cal culat or Not Available [facility] (Lab) [address] [place], [address], 08/27/2022 13:22:36 08/27/20 22 08/27/2022 COMPR EHENS JONATHAN METAB OLIC PANEL alkaline phosphatase 63 U/L 38-126 Not Available [facility] (Lab) [address] [place], [address], 08/27/2022 13:22:36 08/27/20 22 08/27/2022 COMPR EHENS JONATHAN METAB OLIC PANEL alanine aminotransfe rase 5 U/L 0-35 Not Available [facility] (Lab) [address] [place], [address], 08/27/2022 13:22:36 08/27/20 22 08/27/2022 COMPR EHENS JONATHAN METAB OLIC PANEL aspartate aminotransfe rase 22 U/L 15-37 Not Available [facility] (Lab) [address] [place], [address], 08/27/2022 13:22:36 08/27/20 22 08/27/2022 COMPR EHENS JONATHAN METAB OLIC PANEL bilirubin, total 0.60 mg/dL 0.20-1 .30 Not Available [facility] (Lab) [address] [place], [address], 08/27/2022 13:22:36 08/27/20 22 08/27/2022 COMPR EHENS JONATHAN METAB OLIC PANEL calcium 9.8 mg/dL 8.4-10 .2 Not Available [facility] (Lab) [address] [place], [address], 08/27/2022 13:22:36 08/27/20 22 08/27/2022 COMPR EHENS JONATHAN METAB OLIC PANEL total protein 6.4 g/dL 6.3-8. 2 Not Available [facility] (Lab) [address] [place], [address], 08/27/2022 13:22:36 08/27/20 22 08/27/2022 COMPR EHENS JONATHAN METAB OLIC PANEL albumin 4.1 g/dL 3.0-4. 4 Not Available [facility] (Lab) [address] [place], [address], 08/27/2022 13:22:36 08/27/20 22 08/27/2022 COMPR EHENS JONATHAN METAB OLIC PANEL globulin 2.3 g/dL 2.6-4. 2 low Not Available [facility] (Lab) [address] [place], [address], 08/27/2022 13:22:36 08/27/20 22 08/27/2022 COMPR EHENS JONATHAN METAB OLIC PANEL A/G ratio 1.8 ratio 1.0-2. 0 Not Available [facility] (Lab) [address] [place], [address], 08/27/2022 13:22:36 08/27/20 22 08/27/2022 LIPID PANEL cholesterol 271 mg/dL 140-19 9 high NIH OSWALDO NSUS RECOM MENDA TION FOR PAWAN STERO L: ADULT CHILD LOW RISK: <200 <170 BORDE RLINE : <200- 239 ----- HIGH RISK: >240 >200 Not Available [facility] (Lab) [address] [place], [address], 08/27/2022 13:21:09 08/27/20 22 08/27/2022 LIPID PANEL triglyceride s 237 mg/dL 0-150 high NIH OSWALDO NSUS REPOR T RECOM MENDA TION FOR TRIGL YCERI ZORAIDA: ADULT CHILD LOW RISK: <150 ----- BODER LINE: 150-1 99 ----- HIGH RISK: >200 ----- Not Available [facility] (Lab) [address] [place], [address], 08/27/2022 13:21:09 08/27/20 22 08/27/2022 LIPID PANEL HDL cholesterol 55 mg/dL 40- Not Available [facility] (Lab) [address] [place], [address], 08/27/2022 13:21:09 08/27/20 22 08/27/2022 LIPID PANEL [...] WILL NOT BE REPOR RUI. Not Available [facility] (Lab) [address] [place], [address], 08/27/2022 13:21:09 08/27/20 22 08/27/2022 CBC/C OMPLE TE BLD COUNT W/DIF F white blood cells 7.2 x10'3 /uL 4.2-10 .8 Not Available [facility] (Lab) [address] [place], [address], 08/27/2022 13:09:09 08/27/20 22 08/27/2022 CBC/C OMPLE TE BLD COUNT W/DIF F red blood cells 4.43 x10'6 /uL 3.80-5 .20 Not Available [facility] (Lab) [address] [place], [address], 08/27/2022 13:09:09 08/27/20 22 08/27/2022 CBC/C OMPLE TE BLD COUNT W/DIF F hemoglobin 13.8 g/dL 12.0-1 5.6 Not Available [facility] (Lab) [address] [place], [address], 08/27/2022 13:09:09 08/27/20 22 08/27/2022 CBC/C OMPLE TE BLD COUNT W/DIF F hematocrit 42.9 % 35.7-4 5.7 Not Available [facility] (Lab) [address] [place], [address], 08/27/2022 13:09:09 08/27/20 22 08/27/2022 CBC/C OMPLE TE BLD COUNT W/DIF F mean red cell volume 96.8 fL 82.0-9 9.0 Not Available [facility] (Lab) [address] [place], [address], 08/27/2022 13:09:09 08/27/20 22 08/27/2022 CBC/C OMPLE TE BLD COUNT W/DIF F mean red cell hemoglobin 31.2 pg 27.0-3 3.0 Not Available [facility] (Lab) [address] [place], [address], 08/27/2022 13:09:09 08/27/20 22 08/27/2022 CBC/C OMPLE TE BLD COUNT W/DIF F mean RBC HGB concentratio n 32.2 g/dL 31.0-3 6.0 Not Available [facility] (Lab) [address] [place], [address], 08/27/2022 13:09:09 08/27/20 22 08/27/2022 CBC/C OMPLE TE BLD COUNT W/DIF F red cell distribution width 14.7 % 11.8-1 5.5 Not Available [facility] (Lab) [address] [place], [address], 08/27/2022 13:09:09 08/27/20 22 08/27/2022 CBC/C OMPLE TE BLD COUNT W/DIF F platelets 151 x10'3 /uL 150-40 0 Not Available [facility] (Lab) [address] [facility], [address], 08/27/2022 13:09:09 08/27/20 22 08/27/2022 CBC/C OMPLE TE BLD COUNT W/DIF F mean platelet volume 13.0 fL 9.0-12 .4 high Not Available [facility] (Lab) [address] [place], [address], 08/27/2022 13:09:09 08/27/20 22 08/27/2022 CBC/C OMPLE TE BLD COUNT W/DIF F neutrophils 56.4 % 39.0-7 2.0 Not Available [facility] (Lab) [address] [place], [address], 08/27/2022 13:09:09 08/27/20 22 08/27/2022 CBC/C OMPLE TE BLD COUNT W/DIF F lymphocytes 24.8 % 16.0-4 7.0 Not Available [facility] (Lab) [address] [place], [address], 08/27/2022 13:09:09 08/27/20 22 08/27/2022 CBC/C OMPLE TE BLD COUNT W/DIF F monocytes 12.6 % 5.0-12 .0 high Not Available [facility] (Lab) [address] [place], [address], 08/27/2022 13:09:09 08/27/20 22 08/27/2022 CBC/C OMPLE TE BLD COUNT W/DIF F eosinophils 4.3 % 1.0-7. 0 Not Available [facility] (Lab) [address] [place], [address], 08/27/2022 13:09:09 08/27/20 22 08/27/2022 CBC/C OMPLE TE BLD COUNT W/DIF F basophils 1.5 % 0.0-2. 0 Not Available [facility] (Lab) [address] [place], [address], 08/27/2022 13:09:09 08/27/20 22 08/27/2022 CBC/C OMPLE TE BLD COUNT W/DIF F immature granulocytes 0.4 % 0.00-0 .50 Not Available [facility] (Lab) [address] [place], [address], 08/27/2022 13:09:09 08/27/20 22 08/27/2022 CBC/C OMPLE TE BLD COUNT W/DIF F neutrophils, absolute count 4.07 x10'3 /uL 1.5-8. 0 Not Available [facility] (Lab) [address] [place], [address], 08/27/2022 13:09:09 08/27/20 22 08/27/2022 CBC/C OMPLE TE BLD COUNT W/DIF F lymphocytes, absolute count 1.79 x10'3 /uL 1.07-3 .43 Not Available [facility] (Lab) [address] [place], [address], 08/27/2022 13:09:09 08/27/20 22 08/27/2022 CBC/C OMPLE TE BLD COUNT W/DIF F monocytes, absolute count 0.91 x10'3 /uL 0.29-0 .99 Not Available [facility] (Lab) [address] [place], [address], 08/27/2022 13:09:09 08/27/20 22 08/27/2022 CBC/C OMPLE TE BLD COUNT W/DIF F eosinophils, absolute count 0.31 x10'3 /uL 0.02-0 .53 Not Available [facility] (Lab) [address] [place], [address], 08/27/2022 13:09:09 08/27/20 22 08/27/2022 CBC/C OMPLE TE BLD COUNT W/DIF F basophils, absolute count 0.11 x10'3 /uL 0.01-0 .08 high Not Available [facility] (Lab) [address] [place], [address], 08/27/2022 13:09:09 08/27/20 22 08/27/2022 CBC/C OMPLE TE BLD COUNT W/DIF F immature granulocytes ,absolute 0.03 x10'3 /uL 0.00-0 .05 Not Available [facility] (Lab) [address] [place], [address], 08/27/2022 13:09:09 08/27/20 22 08/27/2022 CBC/C OMPLE TE BLD COUNT W/DIF F nucleated red blood cells 0.0 % -0 Not Available [facility] (Lab) [address] [place], [address], 08/27/2022 13:09:09 08/27/2008/27/2022 CBC/C OMPLE TE BLD COUNT W/DIF F NRBC# 0.00 x10'3 /uL Not Available [facility] (Lab) [address] [place], [address], 08/27/2022 13:09:09 01/16/20 23 01/15/2023 CBC/C OMPLE TE BLD COUNT W/DIF F white blood cells 9.4 x10'3 /uL 4.2-10 .8 Not Available [facility] (Lab) [address] [place], [address], 01/15/2023 12:06:22 01/16/20 23 01/15/2023 CBC/C OMPLE TE BLD COUNT W/DIF F red blood cells 4.46 x10'6 /uL 3.80-5 .20 Not Available [facility] (Lab) [address] [place], [address], 01/15/2023 12:06:22 01/16/20 23 01/15/2023 CBC/C OMPLE TE BLD COUNT W/DIF F hemoglobin 13.7 g/dL 12.0-1 5.6 Not Available [facility] (Lab) [address] [place], [address], 01/15/2023 12:06:22 01/16/20 23 01/15/2023 CBC/C OMPLE TE BLD COUNT W/DIF F hematocrit 43.4 % 35.7-4 5.7 Not Available [facility] (Lab) [address] [place], [address], 01/15/2023 12:06:22 01/16/20 23 01/15/2023 CBC/C OMPLE TE BLD COUNT W/DIF F mean red cell volume 97.3 fL 82.0-9 9.0 Not Available [facility] (Lab) [address] [place], [address], 01/15/2023 12:06:22 01/16/20 23 01/15/2023 CBC/C OMPLE TE BLD COUNT W/DIF F mean red cell hemoglobin 30.7 pg 27.0-3 3.0 Not Available [facility] (Lab) [address] [place], [address], 01/15/2023 12:06:22 01/16/20 23 01/15/2023 CBC/C OMPLE TE BLD COUNT W/DIF F mean RBC HGB concentratio n 31.6 g/dL 31.0-3 6.0 Not Available [facility] (Lab) [address] [place], [address], 01/15/2023 12:06:22 01/16/20 23 01/15/2023 CBC/C OMPLE TE BLD COUNT W/DIF F red cell distribution width 13.8 % 11.8-1 5.5 Not Available [facility] (Lab) [address] [place], [address], 01/15/2023 12:06:22 01/16/20 23 01/15/2023 CBC/C OMPLE TE BLD COUNT W/DIF F platelets 147 x10'3 /uL 150-40 0 low Not Available [facility] (Lab) [address] [place], [address], 01/15/2023 12:06:22 01/16/20 23 01/15/2023 CBC/C OMPLE TE BLD COUNT W/DIF F mean platelet volume 12.2 fL 9.0-12 .4 Not Available [facility] (Lab) [address] [place], [address], 01/15/2023 12:06:22 01/16/20 23 01/15/2023 CBC/C OMPLE TE BLD COUNT W/DIF F neutrophils 65.6 % 39.0-7 2.0 Not Available [facility] (Lab) [address] [place], [address], 01/15/2023 12:06:22 01/16/20 23 01/15/2023 CBC/C OMPLE TE BLD COUNT W/DIF F lymphocytes 17.1 % 16.0-4 7.0 Not Available [facility] (Lab) [address] [place], [address], 01/15/2023 12:06:22 01/16/20 23 01/15/2023 CBC/C OMPLE TE BLD COUNT W/DIF F monocytes 12.3 % 5.0-12 .0 high Not Available [facility] (Lab) [address] [place], [address], 01/15/2023 12:06:22 01/16/20 23 01/15/2023 CBC/C OMPLE TE BLD COUNT W/DIF F eosinophils 3.8 % 1.0-7. 0 Not Available [facility] (Lab) [address] [place], [address], 01/15/2023 12:06:22 01/16/20 23 01/15/2023 CBC/C OMPLE TE BLD COUNT W/DIF F basophils 0.9 % 0.0-2. 0 Not Available [facility] (Lab) [address] [place], [address], 01/15/2023 12:06:22 01/16/20 23 01/15/2023 CBC/C OMPLE TE BLD COUNT W/DIF F immature granulocytes 0.3 % 0.00-0 .50 Not Available [facility] (Lab) [address] [place], [address], 01/15/2023 12:06:22 01/16/20 23 01/15/2023 CBC/C OMPLE TE BLD COUNT W/DIF F neutrophils, absolute count 6.15 x10'3 /uL 1.5-8. 0 Not Available [facility] (Lab) [address] [place], [address], 01/15/2023 12:06:22 01/16/20 23 01/15/2023 CBC/C OMPLE TE BLD COUNT W/DIF F lymphocytes, absolute count 1.60 x10'3 /uL 1.07-3 .43 Not Available [facility] (Lab) [address] [place], [address], 01/15/2023 12:06:22 01/16/20 23 01/15/2023 CBC/C OMPLE TE BLD COUNT W/DIF F monocytes, absolute count 1.15 x10'3 /uL 0.29-0 .99 high Not Available [facility] (Lab) [address] [place], [address], 01/15/2023 12:06:22 01/16/20 23 01/15/2023 CBC/C OMPLE TE BLD COUNT W/DIF F eosinophils, absolute count 0.36 x10'3 /uL 0.02-0 .53 Not Available [facility] (Lab) [address] [place], [address], 01/15/2023 12:06:22 01/16/20 23 01/15/2023 CBC/C OMPLE TE BLD COUNT W/DIF F basophils, absolute count 0.08 x10'3 /uL 0.01-0 .08 Not Available [facility] (Lab) [address] [place], [address], 01/15/2023 12:06:22 01/16/20 23 01/15/2023 CBC/C OMPLE TE BLD COUNT W/DIF F immature granulocytes ,absolute 0.03 x10'3 /uL 0.00-0 .05 Not Available [facility] (Lab) [address] [place], [address], 01/15/2023 12:06:22 01/16/20 23 01/15/2023 CBC/C OMPLE TE BLD COUNT W/DIF F nucleated red blood cells 0.0 % -0 Not Available [facility] (Lab) [address] [place], [address], 01/15/2023 12:06:22 01/16/20 23 01/15/2023 CBC/C OMPLE TE BLD COUNT W/DIF F NRBC# 0.00 x10'3 /uL Not Available [facility] (Lab) [address] [place], [address], 01/15/2023 12:06:22 01/16/20 23 01/15/2023 COMPR EHENS JONATHAN METAB OLIC PANEL sodium 140 mmol/ L 137-14 5 Not Available [facility] (Lab) [address] [place], [address], 01/15/2023 12:24:31 01/16/20 23 01/15/2023 COMPR EHENS JONATHAN METAB OLIC PANEL potassium 4.3 mmol/ L 3.5-5. 1 Not Available [facility] (Lab) [address] [place], [address], 01/15/2023 12:24:31 01/16/20 23 01/15/2023 COMPR EHENS JONATHAN METAB OLIC PANEL chloride 106 mmol/ L 98-107 Not Available [facility] (Lab) [address] [place], [address], 01/15/2023 12:24:31 01/16/20 23 01/15/2023 COMPR EHENS JONATHAN METAB OLIC PANEL carbon dioxide 27 mmol/ L 22-30 Not Available [facility] (Lab) [address] [place], [address], 01/15/2023 12:24:31 01/16/20 23 01/15/2023 COMPR EHENS JONATHAN METAB OLIC PANEL anion gap 11.3 mmol/ L 14-22 low Not Available [facility] (Lab) [address] [place], [address], 01/15/2023 12:24:31 01/16/20 23 01/15/2023 COMPR EHENS JONATHAN METAB OLIC PANEL glucose 112 mg/dL 70-99 high Not Available [facility] (Lab) [address] [place], [address], 01/15/2023 12:24:31 01/16/20 23 01/15/2023 COMPR EHENS JONATHAN METAB OLIC PANEL BUN 17 mg/dL 8-19 Not Available [facility] (Lab) [address] [place], [address], 01/15/2023 12:24:31 01/16/20 23 01/15/2023 COMPR EHENS JONATHAN METAB OLIC PANEL creatinine 0.99 mg/dL 0.66-1 .25 Not Available [facility] (Lab) [address] [place], [address], 01/15/2023 12:24:31 01/16/20 23 01/15/2023 COMPR EHENS JONATHAN METAB OLIC PANEL GFR 55 Refer ence Range : [place] [facility] GFR Healt hy Adult : >60 [...] is avail able on the [facility] websi te: [email or web address] :[email or web address] ional s/kdo qi/gf r_cal culat or Not Available [facility] (Lab) [address] [place], [address], 01/15/2023 12:24:31 01/16/20 23 01/15/2023 COMPR EHENS JONATHAN METAB OLIC PANEL alkaline phosphatase 72 U/L 38-126 Not Available [facility] (Lab) [address] [place], [address], 01/15/2023 12:24:31 01/16/20 23 01/15/2023 COMPR EHENS JONATHAN METAB OLIC PANEL alanine aminotransfe rase 12 U/L 0-35 Not Available [facility] (Lab) [address] [place], [address], 01/15/2023 12:24:31 01/16/20 23 01/15/2023 COMPR EHENS JONATHAN METAB OLIC PANEL aspartate aminotransfe rase 31 U/L 15-37 Not Available [facility] (Lab) [address] [place], [address], 01/15/2023 12:24:31 01/16/20 23 01/15/2023 COMPR EHENS JONATHAN METAB OLIC PANEL bilirubin, total 0.90 mg/dL 0.20-1 .30 Not Available [facility] (Lab) [address] [place], [address], 01/15/2023 12:24:31 01/16/20 23 01/15/2023 COMPR EHENS JONATHAN METAB OLIC PANEL calcium 9.8 mg/dL 8.4-10 .2 Not Available [facility] (Lab) [address] [place], [address], 01/15/2023 12:24:31 01/16/20 23 01/15/2023 COMPR EHENS JONATHAN METAB OLIC PANEL total protein 6.8 g/dL 6.3-8. 2 Not Available [facility] (Lab) [address] [place], [address], 01/15/2023 12:24:31 01/16/20 23 01/15/2023 COMPR EHENS JONATHAN METAB OLIC PANEL albumin 4.3 g/dL 3.0-4. 4 Not Available [facility] (Lab) [address] [place], [address], 01/15/2023 12:24:31 01/16/20 23 01/15/2023 COMPR EHENS JONATHAN METAB OLIC PANEL globulin 2.5 g/dL 2.6-4. 2 low Not Available [facility] (Lab) [address] [place], [address], 01/15/2023 12:24:31 01/16/20 23 01/15/2023 COMPR EHENS JONATHAN METAB OLIC PANEL A/G ratio 1.7 ratio 1.0-2. 0 Not Available [facility] (Lab) [address] [place], [address], 01/15/2023 12:24:31 01/16/20 23 01/15/2023 LIPID PANEL cholesterol 127 mg/dL 140-19 9 low NIH OSWALDO NSUS RECOM MENDA TION FOR PAWAN STERO L: ADULT CHILD LOW RISK: <200 <170 BORDE RLINE : <200- 239 ----- HIGH RISK: >240 >200 Not Available [facility] (Lab) [address] [place], [address], 01/15/2023 12:24:49 01/16/20 23 01/15/2023 LIPID PANEL triglyceride s 185 mg/dL 0-150 high NIH OSWALDO NSUS REPOR T RECOM MENDA TION FOR TRIGL YCERI ZORAIDA: ADULT CHILD LOW RISK: <150 ----- BODER LINE: 150-1 99 ----- HIGH RISK: >200 ----- Not Available [facility] (Lab) [address] [place], [address], 01/15/2023 12:24:49 01/16/20 23 01/15/2023 LIPID PANEL HDL cholesterol 57 mg/dL 40- Not Available [facility] (Lab) [address] [place], [address], 01/15/2023 12:24:49 01/16/20 23 01/15/2023 LIPID PANEL [...] WILL NOT BE REPOR RUI. Not Available [facility] (Lab) [address] [place], [address], 01/15/2023 12:24:49 01/16/20 23 01/15/2023 T4 FREE free T4 1.29 NG/dL 0.78-2 .19 Not Available [facility] (Lab) [address] [place], [address], 01/15/2023 12:31:42 01/16/20 23 01/15/2023 TSH thyroid-stim ulating hormone 0.677 uIU/m L 0.465- 4.680 Not Available [facility] (Lab) [address] [place], [address], 01/15/2023 12:39:04 01/16/20 23 01/15/2023 HEMOG LOBIN A1C HA1C 6.0 % 4.0-6. 0 Diabe harman Scree roma Crite adi: <5.7% Consi stent with absen ce of diabe harman 5.7-6 .4% Consi stent with incre ased risk for diabe harman (pred iabet es) >OR=6 .5% Consi stent with diabe harman REFER ENCE: Diabe harman Care 2016, 39(Arnold ppl.1 ):s13 -s22 Not Available [facility] (Lab) [address] [place], [address], 01/15/2023 13:11:47 01/16/20 23 01/15/2023 VITAM IN B12 (MADDY DOMENICA ) vb12 677 pg/mL 239-93 1 Not Available [facility] (Lab) [address] [place], [address], 01/15/2023 18:31:01 01/16/20 23 01/15/2023 FOLAT E, SERUM /PLAS MA folate 5.65 NG/mL 2.76-2 0.0 Not Available [facility] (Lab) [address] [place], [address], 01/15/2023 18:31:05 01/16/20 23 01/15/2023 MICRO ALBUM IN RANDO M URINE microalbumin , urine 36.5 mg/L 0.0-16 .6 high Not Available [facility] (Lab) [address] [place], [address], 01/15/2023 18:38:15 04/23/20 23 04/23/2023 LIPID PANEL cholesterol 123 mg/dL 140-19 9 low NIH OSWALDO NSUS RECOM MENDA TION FOR PAWAN STERO L: ADULT CHILD LOW RISK: <200 <170 BORDE RLINE : <200- 239 ----- HIGH RISK: >240 >200 Not Available [facility] (Lab) [address] [place], [address], 04/23/2023 10:23:37 04/23/20 23 04/23/2023 LIPID PANEL triglyceride s 138 mg/dL 0-150 NIH OSWALDO NSUS REPOR T RECOM MENDA TION FOR TRIGL YCERI ZORAIDA: ADULT CHILD LOW RISK: <150 ----- BODER LINE: 150-1 99 ----- HIGH RISK: >200 ----- Not Available [facility] (Lab) [address] [place], [address], 04/23/2023 10:23:37 04/23/20 23 04/23/2023 LIPID PANEL HDL cholesterol 52 mg/dL 40- Not Available [facility] (Lab) [address] [place] [address], [address], 04/23/2023 10:23:37 04/23/20 23 04/23/2023 LIPID PANEL [...] WILL NOT BE REPOR RUI. Not Available [facility] (Lab) [address] [place], [address], 04/23/2023 10:23:37 04/23/20 23 04/23/2023 COMPR EHENS JONATHAN METAB OLIC PANEL sodium 141 mmol/ L 137-14 5 Not Available [facility] (Lab) [address] [place], [address], 04/23/2023 10:23:48 04/23/20 23 04/23/2023 COMPR EHENS JONATHAN METAB OLIC PANEL potassium 4.5 mmol/ L 3.5-5. 1 Not Available [facility] (Lab) [address] [place], [address], 04/23/2023 10:23:48 04/23/20 23 04/23/2023 COMPR EHENS JONATHAN METAB OLIC PANEL chloride 104 mmol/ L 98-107 Not Available [facility] (Lab) [address] [place], [address], 04/23/2023 10:23:48 04/23/20 23 04/23/2023 COMPR EHENS JONATHAN METAB OLIC PANEL carbon dioxide 30 mmol/ L 22-30 Not Available [facility] (Lab) [address] [place], [address], 04/23/2023 10:23:48 04/23/20 23 04/23/2023 COMPR EHENS JONATHAN METAB OLIC PANEL anion gap 11.5 mmol/ L 14-22 low Not Available [facility] (Lab) [address] [place], [address], 04/23/2023 10:23:48 04/23/20 23 04/23/2023 COMPR EHENS JONATHAN METAB OLIC PANEL glucose 103 mg/dL 70-99 high Not Available [facility] (Lab) [address] [place], [address], 04/23/2023 10:23:48 04/23/20 23 04/23/2023 COMPR EHENS JONATHAN METAB OLIC PANEL BUN 24 mg/dL 8-19 high Not Available [facility] (Lab) [address] [place], [address], 04/23/2023 10:23:48 04/23/20 23 04/23/2023 COMPR EHENS JONATHAN METAB OLIC PANEL creatinine 1.05 mg/dL 0.66-1 .25 Not Available [facility] (Lab) [address] [place], [address], 04/23/2023 10:23:48 04/23/20 23 04/23/2023 COMPR EHENS JONATHAN METAB OLIC PANEL GFR 52 Refer ence Range : [place] ge GFR Healt hy Adult : >60 [...] is avail able on the [facility] websi te: https :[email or web address] [email or web address].ulysses benz/salud guillenal s/kdo qi/gf r_cal culat or Not Available [facility] (Lab) [address] [place], [address], 04/23/2023 10:23:48 04/23/20 23 04/23/2023 COMPR EHENS JONATHAN METAB OLIC PANEL alkaline phosphatase 63 U/L 38-126 Not Available [facility] (Lab) [address] [place], [address], 04/23/2023 10:23:48 04/23/20 23 04/23/2023 COMPR EHENS JONATHAN METAB OLIC PANEL alanine aminotransfe rase 27 U/L 0-35 Not Available [facility] (Lab) [address] [place], [address], 04/23/2023 10:23:48 04/23/20 23 04/23/2023 COMPR EHENS JONATHAN METAB OLIC PANEL aspartate aminotransfe rase 41 U/L 15-37 high Not Available [facility] (Lab) [address] [place], [address], 04/23/2023 10:23:48 04/23/20 23 04/23/2023 COMPR EHENS JONATHAN METAB OLIC PANEL bilirubin, total 0.40 mg/dL 0.20-1 .30 Not Available [facility] (Lab) [address] [place], [address], 04/23/2023 10:23:48 04/23/20 23 04/23/2023 COMPR EHENS JONATHAN METAB OLIC PANEL calcium 9.1 mg/dL 8.4-10 .2 Not Available [facility] (Lab) [address] [place], [address], 04/23/2023 10:23:48 04/23/20 23 04/23/2023 COMPR EHENS JONATHAN METAB OLIC PANEL total protein 6.3 g/dL 6.3-8. 2 Not Available [facility] (Lab) [address] [place], [address], 04/23/2023 10:23:48 04/23/20 23 04/23/2023 COMPR EHENS JONATHAN METAB OLIC PANEL albumin 3.8 g/dL 3.0-4. 4 Not Available [facility] (Lab) [address] [place], [address], 04/23/2023 10:23:48 04/23/20 23 04/23/2023 COMPR EHENS JONATHAN METAB OLIC PANEL globulin 2.5 g/dL 2.6-4. 2 low Not Available [facility] (Lab) [address] [place], [address], 04/23/2023 10:23:48 04/23/20 23 04/23/2023 COMPR EHENS JONATHAN METAB OLIC PANEL A/G ratio 1.5 ratio 1.0-2. 0 Not Available [facility] (Lab) [address] [place], [address], 04/23/2023 10:23:48 04/23/20 23 04/23/2023 MICRO ALBUM IN RANDO M URINE microalbumin , urine <6.0 mg/L 0.0-16 .6 Not Available [facility] (Lab) [address] [place], [address], 04/23/2023 10:27:21 04/23/20 23 04/23/2023 CBC/C OMPLE TE BLD COUNT W/DIF F white blood cells 7.2 x10'3 /uL 4.2-10 .8 Not Available [facility] (Lab) [address] [place], [address], 04/23/2023 10:29:24 04/23/20 23 04/23/2023 CBC/C OMPLE TE BLD COUNT W/DIF F red blood cells 4.20 x10'6 /uL 3.80-5 .20 Not Available [facility] (Lab) [address] [place], [address], 04/23/2023 10:29:24 04/23/20 23 04/23/2023 CBC/C OMPLE TE BLD COUNT W/DIF F hemoglobin 12.8 g/dL 12.0-1 5.6 Not Available [facility] (Lab) [address] [place], [address], 04/23/2023 10:29:24 04/23/20 23 04/23/2023 CBC/C OMPLE TE BLD COUNT W/DIF F hematocrit 39.9 % 35.7-4 5.7 Not Available [facility] (Lab) [address] [place], [address], 04/23/2023 10:29:24 04/23/20 23 04/23/2023 CBC/C OMPLE TE BLD COUNT W/DIF F mean red cell volume 95.0 fL 82.0-9 9.0 Not Available [facility] (Lab) [address] [place], [address], 04/23/2023 10:29:24 04/23/20 23 04/23/2023 CBC/C OMPLE TE BLD COUNT W/DIF F mean red cell hemoglobin 30.5 pg 27.0-3 3.0 Not Available [facility] (Lab) [address] [place], [address], 04/23/2023 10:29:24 04/23/20 23 04/23/2023 CBC/C OMPLE TE BLD COUNT W/DIF F mean RBC HGB concentratio n 32.1 g/dL 31.0-3 6.0 Not Available [facility] (Lab) [address] [place], [address], 04/23/2023 10:29:24 04/23/20 23 04/23/2023 CBC/C OMPLE TE BLD COUNT W/DIF F red cell distribution width 13.0 % 11.8-1 5.5 Not Available [facility] (Lab) [address] [place], [address], 04/23/2023 10:29:24 04/23/20 23 04/23/2023 CBC/C OMPLE TE BLD COUNT W/DIF F platelets 119 x10'3 /uL 150-40 0 low Not Available [facility] (Lab) [address] [place], [address], 04/23/2023 10:29:24 04/23/20 23 04/23/2023 CBC/C OMPLE TE BLD COUNT W/DIF F mean platelet volume 12.9 fL 9.0-12 .4 high Not Available [facility] (Lab) [address] [place], [address], 04/23/2023 10:29:24 04/23/20 23 04/23/2023 CBC/C OMPLE TE BLD COUNT W/DIF F neutrophils 49.0 % 39.0-7 2.0 Not Available [facility] (Lab) [address] [place], [address], 04/23/2023 10:29:24 04/23/20 23 04/23/2023 CBC/C OMPLE TE BLD COUNT W/DIF F lymphocytes 28.2 % 16.0-4 7.0 Not Available [facility] (Lab) [address] [place], [address], 04/23/2023 10:29:24 04/23/20 23 04/23/2023 CBC/C OMPLE TE BLD COUNT W/DIF F monocytes 15.8 % 5.0-12 .0 high Not Available [facility] (Lab) [address] [place], [address], 04/23/2023 10:29:24 04/23/20 23 04/23/2023 CBC/C OMPLE TE BLD COUNT W/DIF F eosinophils 5.7 % 1.0-7. 0 Not Available [facility] (Lab) [address] [place], [address], 04/23/2023 10:29:24 04/23/20 23 04/23/2023 CBC/C OMPLE TE BLD COUNT W/DIF F basophils 1.0 % 0.0-2. 0 Not Available [facility] (Lab) [address] [place], [address], 04/23/2023 10:29:24 04/23/20 23 04/23/2023 CBC/C OMPLE TE BLD COUNT W/DIF F immature granulocytes 0.3 % 0.00-0 .50 Not Available [facility] (Lab) [address] [place], [address], 04/23/2023 10:29:24 04/23/20 23 04/23/2023 CBC/C OMPLE TE BLD COUNT W/DIF F neutrophils, absolute count 3.55 x10'3 /uL 1.5-8. 0 Not Available [facility] (Lab) [address] [place], [address], 04/23/2023 10:29:24 04/23/20 23 04/23/2023 CBC/C OMPLE TE BLD COUNT W/DIF F lymphocytes, absolute count 2.04 x10'3 /uL 1.07-3 .43 Not Available [facility] (Lab) [address] [place], [address], 04/23/2023 10:29:24 04/23/20 23 04/23/2023 CBC/C OMPLE TE BLD COUNT W/DIF F monocytes, absolute count 1.14 x10'3 /uL 0.29-0 .99 high Not Available [facility] (Lab) [address] [place], [address], 04/23/2023 10:29:24 04/23/20 23 04/23/2023 CBC/C OMPLE TE BLD COUNT W/DIF F eosinophils, absolute count 0.41 x10'3 /uL 0.02-0 .53 Not Available [facility] (Lab) [address] [place], [address], 04/23/2023 10:29:24 04/23/20 23 04/23/2023 CBC/C OMPLE TE BLD COUNT W/DIF F basophils, absolute count 0.07 x10'3 /uL 0.01-0 .08 Not Available [facility] (Lab) [address] [place], [address], 04/23/2023 10:29:24 04/23/20 23 04/23/2023 CBC/C OMPLE TE BLD COUNT W/DIF F immature granulocytes ,absolute 0.02 x10'3 /uL 0.00-0 .05 Not Available [facility] (Lab) [address] [place], [address], 04/23/2023 10:29:24 04/23/20 23 04/23/2023 CBC/C OMPLE TE BLD COUNT W/DIF F nucleated red blood cells 0.0 % -0 Not Available [facility] (Lab) [address] [place], [address], 04/23/2023 10:29:24 04/23/20 23 04/23/2023 CBC/C OMPLE TE BLD COUNT W/DIF F NRBC# 0.00 x10'3 /uL Not Available [facility] (Lab) [address] [place], [address], 04/23/2023 10:29:24 04/23/20 23 04/23/2023 T4 FREE free T4 1.17 NG/dL 0.78-2 .19 Not Available [facility] (Lab) [address] [place], [address], 04/23/2023 10:32:56 04/23/20 23 04/23/2023 TSH thyroid-stim ulating hormone 0.634 uIU/m L 0.465- 4.680 Not Available [facility] (Lab) [address] [place], [address], 04/23/2023 11:00:11 04/23/20 23 04/23/2023 HEMOG LOBIN A1C HA1C 5.8 % 4.0-6. 0 Diabe harman Scree roma Crite adi: <5.7% Consi stent with absen ce of diabe harman 5.7-6 .4% Consi stent with incre ased risk for diabe harman (pred iabet es) >OR=6 .5% Consi stent with diabe harman REFER ENCE: Diabe harman Care 2016, 39(Arnold ppl.1 ):s13 -s22 Not Available [facility] (Lab) [address] [place], [address], 04/23/2023 12:21:03 09/23/20 22 09/23/2022 CT, abdom en + pelvi s, w/ contr ast No observ ation record ed. [id number] [facility] (Radiology) [address] [place], [address], 12/25/2022 05:07:19 09/23/20 22 09/23/2022 CT, abdom en + pelvi s, w/ contr ast [facility] [place] [address] [place] [address] Patien t Name: ARUNA PANTOJA F Access ion #: [id number] Sex: F : 1949 0 Locati [...] 4 [facility] t Name: ARUNA PANTOJA NE F Access ion #: [id number] Sex: F : 1949 0 Exam [...] acute proces s Page 2 of 4 [facility] t Name: ARUNA PANTOJA F Access ion #: [id number] Sex: F : 1949 0 Exam [...] ly signed by: Page 3 of 4 [facility] t Name: ARUNA PANTOJA F Access ion #: [id number] Sex: F : 1949 0 Exam Date: 2021 8:40 AM Exam Name: CT ABDOME N PELVIS W Admitt ing Diagno sis(es ): Wilfrid azevedo MD Signed Date: 2021 5:06 PM (CT) Dictat ed by: Wilfrid azevedo MD DD: 2021 5:06 PM (CT) DT: 2021 5:06 PM (CT) Page 4 of 4 [facility].[id number] [facility] (Imaging) [address] [place], [address], 12/25/2022 05:07:19 01/15/20 23 01/14/2023 XR, abdom en No observ ation record ed. [address], [place], [address], 01/15/2023 11:16:33 03/31/20 23 03/31/2023 , echo ardio gram No observ ation record ed. [address] [facility] [address] , [place], [address], 05/27/2023 12:42:39 04/23/20 24 04/23/2024 imagi ng/di agnos tic resul t No observ ation record ed. [facility] [address], [place], [address], 04/23/2024 12:03:13 01/15/20 25 01/14/2025 imagi ng/di agnos tic resul t No observ ation record ed. [facility] [address] , [place], [address], 01/14/2025 18:14:57 Result Notes Documentation Provider Name and Address Organization Details Recorded Time Ct, Abdomen + Pelvis, W/ Contrast : [facility] [address] [place] [address] Patient Name: TIM PANTOJA Sex: F : 1950 Location: [facility] Attending Physician: BRODY COLLADO Ordering Physician: [...] Isovue 370 intravenous Page 1 of 4 [facility] Patient Name: TIM PANTOJA Sex: F [...] No acute process Page 2 of 4 [facility] Patient Name: TIM PANTOJA Sex: F [...] electronically signed by: Page 3 of 4 [facility] Patient Name: TIM PANTOJA Sex: F : 1950 Exam Date: 09/23/2022 8:40 AM Exam Name: CT ABDOMEN PELVIS W Admitting Diagnosis(es): Wilfrid Solis MD Signed Date: 09/23/2022 5:06 PM (CT) Dictated by: Wilfrid Solis MD (CT) (CT) Page 4 of 4 Not Available [facility] 12/25/2022 05:07:24 Problems Name Problem SNOMED Code Status Onset Date Resolution Date Notes Provider Name and Address Organization Details Recorded Time Cellulitis 888749638 Active Not Available [facility] 4 10:26:18 Hyperchole sterolemia 71095902 Active Not Available [facility] 4 10:26:18 Blood glucose outside reference range 124056154 Active Not Available [facility] 4 10:26:18 Tibialis posterior tendinitis 746719721 Active Not Available [facility] 4 10:26:18 Dog bite - wound 249442262 Active Not Available [facility] 4 10:26:18 Localized, primary osteoarthr itis of elbow 249355281 Active Not Available [facility] 4 10:26:18 Pain in left foot 0611987646414 07 Active Not Available [facility] 4 10:26:18 Depressive disorder 28460929 Active Not Available [facility] 4 10:26:18 Sinusitis 84904053 Active Not Available [facility] 4 10:26:18 Osteoarthr itis 679375831 Active Not Available [facility] 4 10:26:18 Diaphragma tic hernia 65216518 Active Not Available [facility] 4 10:26:18 Pharyngiti s 763136482 Active Not Available [facility] 4 10:26:18 Hypothyroi dism 06163593 Active Not Available [facility] 4 10:26:18 Cough 88045064 Active Not Available [facility] 4 10:26:19 Talipes planus 21402391 Active Not Available [facility] 4 10:26:19 Hyperlipid emia 77220660 Active Not Available [facility] 4 10:26:19 Bursitis 87637685 Active Not Available [facility] 4 10:26:19 Fatigue 70020923 Active Not Available [facility] 4 10:26:19 Diverticul itis 142328019 Active 2016 Not Available [facility] 4 10:26:18 Essential hypertensi on 01648415 Active 2016 Not Available [facility] 4 10:26:19 Obstructiv e sleep apnea syndrome 43925709 Active 2016 Not Available [facility] 4 10:26:19 Body mass index 40+ - severely obese 964281222 Active 2017 Not Available [facility] 4 10:26:18 Tailor's bunion of right foot 7159187981044 109 Active 2019 Not Available [facility] 4 10:26:18 Localized, 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 583510618 Active 2019 Not Available [facility] 4 10:26:18 Type 2 diabetes mellitus without complicati on 488075255 Active 2019 Not Available [facility] 4 10:26:18 Bunion 214019107 Active 2019 Not Available [facility] 4 10:26:18 History of diverticul itis 3357201295094 00 Active 2020 Not Available [facility] 4 10:26:18 History of laparoscop ic adjustable gastric banding 725815042 Active 2020 Not Available [facility] 4 10:26:18 Anxiety 67489794 Active 2021 Not Available [facility] 4 10:26:19 Pain of right elbow joint 1200612310873 9109 Active 2021 Not Available [facility] 4 10:26:18 Arthritis of elbow 283860683 Active 2021 Not Available [facility] 4 10:26:19 Pain of shoulder region 59767878 Active 2021 Not Available [facility] 4 10:26:19 Pain of shoulder region 79692109 Active 2021 Not Available [facility] 4 10:26:19 Hypertrigl yceridemia 760710732 Active 2021 Not Available [facility] 4 10:26:18 Constipati on 45178182 Active 2022 Not Available [facility] 4 10:26:18 Chronic kidney disease 229543001 Active 2022 Not Available [facility] 4 10:26:19 Near syncope 529258319 Active 2022 Not Available [facility] 4 10:26:18 Excess panniculus of abdomen 4515134584788 Active 2022 Not Available [facility] 4 10:26:18 Seasonal allergy 174986207 Active 2022 Not Available [facility] 4 10:26:19 Small bowel obstructio n 630437546 Active 2022 Not Available [facility] 4 10:26:18 Transient cerebral ischemia 110650599 Active 2022 Not Available [facility] 4 10:26:18 Abdominal discomfort 25121696 Active 2022 Not Available [facility] 4 10:26:18 Moderate recurrent major depression 83314305 Active 2022 Not Available [facility] 4 10:26:18 Thrombocyt openic disorder 052512966 Active 2022 Not Available [facility] 4 10:26:18 Pain of left wrist 9021962036612 02 Active 2022 Not Available [facility] 4 10:26:18 Skin lesion 76178758 Active 2022 Not Available [facility] 4 10:26:19 Pain of toe of left foot 9817501623773 08 Active 2022 Not Available [facility] 4 10:26:18 Bunion 506952514 Active 2022 Not Available [facility] 4 10:26:18 Diabetes mellitus 96604084 Active 2022 Not Available [facility] 4 10:26:19 Dystrophia unguium 68215105 Active 2022 Not Available [facility] 4 10:26:19 COVID-19 206089961 Active 2022 Not Available [facility] 4 10:26:19 Upper respirator y infection 47393149 Active 2022 Not Available [facility] 4 10:26:19 Problem Notes None recorded. Procedures Surgical History Date Name Laterality Status Provider Name and Address Organization Details Recorded Time 06/03/20 23 Nail Debridement completed Massimo Porter DPM [address] [facility], [place] [address], [place], [address], [place] 06/03/2023 10:21:02 04/24/20 23 Medicare Wellness CPT Code, subsequent completed Opal Hyde RN [place] 04/24/2023 14:31:12 07/04/20 22 EGD completed Not Available [facility] 12/25/2022 04:42:48 07/06/20 21 Most Recent Bone Density completed Not Available [facility] 12/25/2022 04:42:42 01/24/20 21 abdominoplasty completed Not Available [facility] 12/25/2022 04:42:48 07/01/20 13 Date of Last Colonoscopy completed Not Available [facility] 12/25/2022 04:42:42 Abdominal Surgery completed Not Available [facility] 12/25/2022 04:42:48 Cataract Surgery completed PRIYANKA Adams [place] 01/16/2023 11:35:24 Imaging Results None recorded. Procedure Notes None recorded. Medical Equipment None Reported. Allergies Allergen ID Allergen Name Allergen Category Reaction Reaction Severity Criticality Documentation Date Start Date Code Code System Note Provider Name and Address Organization Details Recorded Time 8753 Demerol medicatio n vomiting Not available Not available 12/25/2022 43416 1 RxNorm Not Available [facility] 3 05:06:32 8754 codeine medicatio n vomiting Not available Not available 12/25/2022 2670 RxNorm Not Available [facility] 3 05:06:32 Medications Name Sig Start Date [...] administ ered by the provider 01/31 completed [facility]: [phone]- Not Available Not Available [...] Not Available Not Available No t Available [facility] [employer] Ultra2 Meter kit USE DIRECTED TO TEST [...] % 97 % 72 /min 97.2 [degF] 33478.0 8 g 130/80 mm[Hg] Not Available [facility] 3 04:46:48 Date Recorded Body height Body mass index (BMI) Body weight Body temperature Heart rate Systolic And Diastolic Provider Name and Address Organization Details Last Updated DateTime 3 154.94 cm 27.2 kg/m2 25453.3 g 97.1 [degF] 66 /min 114/66 mm[Hg] Cyndy Garcia [facility] [employer] [facility] 3 11:36:55 Date Recorded Body height Body mass index (BMI) Body weight Body temperature Heart rate Systolic And Diastolic Provider Name and Address Organization Details Last Updated DateTime 3 154.94 cm 27.9 kg/m2 55068.8 7 g 97.2 [degF] 78 /min 116/60 mm[Hg] Cyndy Garcia [place] [employer] [facility] 3 14:11:04 Date Recorded Pain severity - 0-10 verbal numeric rating [Score] - Reported Provider Name and Address Organization Details Last Updated DateTime 04/24/2023 0 Opal Hyde RN [facility] 04/24/2023 14:31:57 Date Recorded Body height Body mass index (BMI) Body weight Heart rate Respiratory rate Oxygen saturation Oxygen saturation in Arterial blood by Pulse oximetry Systolic And Diastolic Provider Name and Address Organization Details Last Updated DateTime 3 154.94 cm 27 kg/m2 28651.7 1 g 65 /min 14 /min 98 % 98 % 115/74 mm[Hg] Nydia Lewis [facility] 3 09:44:05 Date Recorded Body mass index (BMI) Body height Heart rate Body temperature Body weight Systolic And Diastolic Provider Name and Address Organization Details Last Updated DateTime 2 27.6 kg/m2 154.94 cm 90 /min 97.7 [degF] 61186.4 9 g 110/66 mm[Hg] Not Available [facility] 04:46:48 Social History Question Answer Notes LastModified by Organizat ion Details LastModified Time Tobacco Smoking Status Never Smoker Not Available [facility] 12/25/2022 04:20:45 Do You Have An Advance Directive? No [id number] Information not available 12/25/2022 Are You Blind Or Do You Have Difficulty Seeing? No [id number] Information not available 12/25/2022 What Is Your Level Of Caffeine Consumption? Moderate [id number] Information not available 12/25/2022 How Much Tobacco Do You Chew? None [id number] Information not available 12/25/2022 In The 14 Days Before Symptom Onset, Have You Had Close Contact With A Laboratory-confir med COVID-19 While That Case Was Ill? No [id number] Information not available 12/25/2022 In The 14 Days Before Symptom Onset, Have You Had Close Contact With A Person Who Is Under Investigation For COVID-19 While That Person Was Ill? No [id number] Information not available 12/25/2022 Are You Deaf Or Do You Have Serious Difficulty Hearing? No MIGRATION.83838 [id number] Information not available 12/25/2022 What Type Of Diet Are You Following? REGULAR MIGRATION.38185 38357 Information not available 12/25/2022 Which Illicit Or Recreational Drugs Have You Used? Marijuana Information not available 01/16/2023 What Is The Highest Grade Or Level Of School You Have Completed Or The Highest Degree You Have Received? RA07560-3 MIGRATION.50655 08488 Information not available 12/25/2022 Have There Been Any Changes To Your Family Or Social Situation? No MIGRATION.91702 69190 Information not available 12/25/2022 What Is The Fluoride Status Of Your Home? Unknown MIGRATION.59171 18698 Information not available 12/25/2022 Are There Any Guns Present In Your Home? Yes MIGRATION.66234 85419 Information not available 12/25/2022 Do You Use Insect Repellent Routinely? No MIGRATION.41879 04639 Information not available 12/25/2022 Where Do You Live? [place] MIGRATION.03745 33746 Information not available 12/25/2022 Do You Have A Medical Power Of Car Supplier? No MIGRATION.94175 46578 Information not available 12/25/2022 What Was The Date Of Your Most Recent Tobacco Screening? 06/03/2023 [email or web address] Information not available 06/03/2023 Do You Have Any Pets? Yes MIGRATION.37108 34060 Information not available 12/25/2022 What Is Your Relationship Status? MIGRATION.24212 13896 Information not available 12/25/2022 Do You Use Your Seat Belt Or Car Seat Routinely? Yes MIGRATION.28616 25874 Information not available 12/25/2022 Do You Have Smoke And Carbon Monoxide Detectors In Your Home? Yes MIGRATION.44466 09246 Information not available 12/25/2022 Are You Passively Exposed To Smoke? No MIGRATION.42060 93956 Information not available 12/25/2022 Are There Any Smokers In Your House? No MIGRATION.71624 41230 Information not available 12/25/2022 How Much Tobacco Do You Smoke? No MIGRATION.92329 66863 Information not available 12/25/2022 Do You Use Sunscreen Routinely? No MIGRATION.53299 40590 Information not available 12/25/2022 Has Tobacco Cessation Counseling Been Provided? No N/a MIGRATION.18549 10716 Information not available 12/25/2022 How Many Years Have You Smoked Tobacco? 0 MIGRATION.55796 61579 Information not available 12/25/2022 Have You Recently Traveled Abroad? No MIGRATION.27428 18630 Information not available 12/25/2022 Have You Used IV Drugs? No Information not available 01/16/2023 Do You Have Difficulty Walking Or Climbing Stairs? No MIGRATION.50647 30724 Information not available 12/25/2022 Do You Have Any Dietary Restrictions? No MIGRATION.97741 22659 Information not available 12/25/2022 Sex: Female Functional Status Question Answer Note LastModified by Organizat ion Details LastModified Time Do you use any illicit or recreational drugs? Yes Information not available 01/16/2023 Do you or have you ever used any other forms of tobacco or nicotine? No MIGRATION.728647 9526 Information not available 12/25/2022 What is your level of alcohol consumption? None MIGRATION.698133 2190 Information not available 12/25/2022 Do you or have you ever used smokeless tobacco? Never used smokeless tobacco MIGRATION.952845 8364 Information not available 12/25/2022 Do you have transportation difficulties? No MIGRATION.315520 2977 Information not available 12/25/2022 Are you able to walk? YESWOREST MIGRATION.164657 0297 Information not available 12/25/2022 Do you have difficulty doing errands alone? No MIGRATION.009040 4727 Information not available 12/25/2022 Are you able to care for yourself independently? 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 No MIGRATION.084028 6015 Information not available 12/25/2022 Do you or have you ever used e-cigarettes or vape? Never used electronic cigarettes MIGRATION.546749 8809 Information not available 12/25/2022 What is your exercise level? None MIGRATION.399914 5910 Information not available 12/25/2022 Mental Status Question Answer Note LastModified by Organizat ion Details LastModified Time Do you feel stressed (tense, restless, nervous, or anxious, or unable to sleep at night)? [id number] MIGRATION.05837973 26 Information not available 12/25/2022 Do you have difficulty concentrating, remembering or making decisions? No MIGRATION.42826366 26 Information not available 12/25/2022 Family History Relationship Description Onset Age of this Age Resolved Age Notes LastModified by Organization Details LastModified Time Maternal Grandfather Diabetes mellitus MIGRATION.559 [id number] Not available 12/25/2022 04:42:52 Mother Diabetes mellitus MIGRATION.971 [id number] Not available 12/25/2022 04:42:52 Father Heart disease MIGRATION.371 [id number] Not available 12/25/2022 04:42:52 Sister Malignant tumor of stomach MIGRATION.590 2201365 Not available 12/25/2022 04:42:52 Medical History Condition [...] Immunizations Vaccine Type Date Status Note Provider Danial evans and Address Organization Details Recorded Time COVID-19, mRNA, LNP-S, bivalent, PF, 30 mcg/0.3 mL dose 2 completed Not Available [facility] 12/16/2023 10:26:20 COVID-19, mRNA, LNP-S, PF, 30 mcg/0.3 mL dose 2 completed Not Available [facility] 12/16/2023 10:26:20 Influenza, high-dose, quadrivalent, PF 2 completed Not Available [facility] 12/16/2023 10:26:19 COVID-19, mRNA, LNP-S, PF, 30 mcg/0.3 mL dose 1 completed Not Available [facility] 12/16/2023 10:26:20 SARS-COV-2 (COVID-19) vaccine, UNSPECIFIED 1 completed Not Available [facility] 12/16/2023 10:26:20 SARS-COV-2 (COVID-19) vaccine, UNSPECIFIED 1 completed Not Available [facility] 12/16/2023 10:26:20 Pneumococcal conjugate PCV 13 9 completed Not Available [facility] 12/16/2023 10:26:20 Influenza, split virus, quadrivalent, preservative 9 completed Not Available [facility] 12/16/2023 10:26:19 influenza, unspecified formulation 7 completed Not Available [facility] 12/16/2023 10:26:20 tetanus toxoid, unspecified formulation 5 completed Not Available [facility] 12/16/2023 10:26:20 pneumococcal polysaccharide PPV23 2 completed Not Available [facility] 12/16/2023 10:26:20 Influenza, high-dose, quadrivalent, PF 1 completed Not Available [facility] 12/16/2023 10:26:19 Influenza, high-dose, trivalent, PF 8 completed Not Available [facility] 12/16/2023 10:26:20 Influenza, split virus, quadrivalent, preservative 6 completed Not Available [facility] 12/16/2023 10:26:19 Influenza, split virus, trivalent, preservative 4 completed Not Available [facility] 12/16/2023 10:26:20 Influenza, split virus, trivalent, preservative 3 completed Not Available [facility] 12/16/2023 10:26:20 zoster live 3 completed Not Available [facility] 12/16/2023 10:26:20 Past Encounters Encounter ID Performer Location Encounter Start Date Encounter Closed Date Diagnosis/Indication Diagnosis SNOMED-CT Code Diagnosis ICD10 Code Diagnosis Note [id number] Brody mora MD [facility] [address] [facility] [place] [address] 02/06/2021 00:00:00 03/15/2021 09:12:55 [id number] Brody mora MD [facility] [address] [facility], [address] [address] 03/15/2021 00:00:00 03/20/2021 09:36:32 [id number] [facility] [facility] Pulmonolo gy [place] [address] [address] 04/10/2021 00:00:00 04/10/2021 13:28:43 [id number] Brody mora MD [facility] [address] [place] [address], [address] [address] 05/15/2021 00:00:00 05/16/2021 13:12:12 [id number] Omero farley MD S_[facility] General Surgery [address] [place] [address], [address] [address] 06/12/2021 00:00:00 06/12/2021 14:14:33 [id number] Brody mora MD [facility] [address] [place], [place] [address], [address] [address] 06/21/2021 00:00:00 06/21/2021 11:10:32 [id number] _ATHN_MIGR ATION_1 _ATHENA_M IGRATION_ DEFAULT_1 _1 , 07/09/2021 00:00:00 07/09/2021 17:02:21 [id number] MD ANN BrownS_GMG Internal Med [place] [address] [address] [place] [address] 08/14/2021 00:00:00 08/15/2021 17:19:35 [id number] MD ANN BrownS_[facility]G Internal Med [place] [address] [facility] , [place] [address] 11/19/2021 00:00:00 01/21/2022 15:53:56 [id number] MD ANN BonnerS_GMG Orth[facility] [place] [address] [facility] [address] [place] [address] 12/18/2021 00:00:00 12/18/2021 16:56:08 [id number] MD ANN BrownS_[facility] Internal Med [place] [address] [facility] [place] [address] 01/31/2022 00:00:00 03/26/2022 14:20:03 [id number] MD CURT Bonner_[facility] Ortho [place] [address] [facility] [address] [place] [address] 03/27/2022 00:00:00 04/12/2022 11:43:40 [id number] MD ANN BrownS_[facility] Internal Med [place] [address], [facility] [place] [address] 06/06/2022 00:00:00 07/25/2022 16:43:39 [id number] Brody mora MD [facility] Internal Med [place] [address] [address] [place] [address] 06/27/2022 00:00:00 06/27/2022 12:14:26 [id number] MD ANN BrownS_[facility] Internal Med [place] [address] [address] [place] [address] 09/17/2022 00:00:00 09/17/2022 11:57:41 [id number] Jelena Villeda, CODING CLERKS SUPERVISOR-BC S_GMG Pulmonolo gy [place] [address] [place] [address] 11/11/2022 00:00:00 11/11/2022 13:01:48 [id number] Brody mora MD [facility] [address] [facility], [address] [place] [address] 01/16/2023 11:06:15 01/16/2023 12:42:18 Screening - NAD [id number] Z13.9 C-scope: S/p surgery for diverticul itis [...] her understand ing of the above Hyperlipidemia 65217701 E78.5 On rosuvastat in 40mg daily, but stopped this on her own, will need to restart 09/17/2022 Not on vascepaGet labs 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 430845107 E11.9 On glipizide will decrease to 2.5mg daily as she did have a low glucose and felt presyncopa l 11/19/2021 , now on 5mg post hosp d/c 01/22/2022 , not taking this at this time 06/06/2022 On ozempicGet labsNeeds to see eye MD and podiatry Addendum: 03/26/2022 :She is cleared for surgeryDr Allyssa contrerasDate: 04/15/2022 OV 09/17/2022 :On ozempic, does well, no hx of MEN 2 or pancreatit isDoes well nowGet labs Chronic ki dney disease 128812292 N18.[address] Benavides On calcitriol On vit d weekly On lokelma (to treat high K), but not taking this as per her 11/19/2021 On mag ox Obstructiv e sleep apnea syndrome 01678031 G47.33 On CPAPSee pulmonary History of bariatric surgical procedure 486814113 Z98.[address] Mccray 07/09/2021 : Did not do the EGD as she was told to go an 1.5 hour awayGet a referral to Dr Sylvain VILLALOBOS 11/19/2021 Hypothyroidism 13523269 E03.9 On euthyrox 50mcgs daily US thyroid 07/06/2021 : Neg Pain of ri ght elbow joint 0617370670 3704345 M25.521 Still c/o pain and unable to extend the elbowAlso c/o pain in the R wrist Dr Calderon 12/18/2021 , 03/27/2022 , may need elbow arthroplas ty, and cardiac clearance, she did see Bg U MD Dr Zaldivar on 06/12/2022 as per her history today 09/17/2022 and was told no surgery needed Near syncope 215583462 R 55 [facility] 08/16/2022 , Dr Foley, next apt is in 6 months Diaphragmatic hernia 398 01143 K44.9 S/p [place] [facility], 07/04/2022 , EGD 07/04/2022 Dr Narayan Essential hypertension 44250475 I10 S/p Roldan ICD 020: Seen in [...] 6 months Moderate r ecurrent major depression 24912626 F33.1 On venlafaxin e ER 75mg dailyOn xanax 0.5mg daily as needed but uses this very rarelyOn buspirone 10mg po bid all side effects explained to her Does well, not suicidal or homicidalD eclines any psychiatry referrals Excess yousif niculus of abdomen [id number] 101 E65 S/p surgery Dr Funes, she self referred to him Infected wound on 02/24/2021 and was readmitted , wound exploratio n and packing done in OR by Dr Lazo on 02/24/2021 Does well nowOn tramadol, advised to not take this often Small glenda l obstruction 808353152 K56.609 Admitted [facility], d/c 01/22S/p resection 01/16/2022 , treated with IV antibiotic s and PICC line as was NPO 01/22/2022 :CMP: Gluc 100, AST 37HCBC: WBC 10.8H, H/H 10.8/33.5 Does well now Thrombocyt openic disorder 836948507 D69.6 Dr Willis 04/25/2022 Transient cerebral ischemia 768569329 G45.9 This is new history as per herShe has seen a neurologis t in [place], cannot recall the nameShe has signed a LUDMILA and will call with the name Dr Hernandez 02/18/2022 Screening mammography 24 181687 Z12.31 Constipation 58750387 K5 9.00 Did see WILFREDO Roland DEHYDROGENATION SUPERVISOR on 01/14/2023 and did do an xray abd, now is on linzess as per her history Pain of left wrist 08290 11106 26936 M25.532 S/p EMG done by Dr Brand an apt with hand surgery [id number] Brody mora MD [facility] Internal Med [place] [address] [facility], [address] [address] [place] [address] 04/24/2023 13:58:13 04/24/2023 14:35:06 Screening - NAD 202365332 Z13.9 C-scope: S/p surgery for diverticul itis 08/12/[address] Narayan 02/05/2023 , s/p c-scope 10/2022 Mammogram: 02/26/18 Neg 9: Neg09/10/2 021: NegOrdered PAP: Not having any complaints declines any referrals at this time DEXA: 02/26/18: Osteopenia and is on ca and vit DDEXA: 07/06/2021 : [facility]/19/2019 , get #23UTD on zosterGet the TdUTD on COVID 19 01/14/2021 ADDENDUM: 08/06/18:Heidy Rose filled out for her today RTC in 3 monthsDo labsER if worseshe did verbalize her understand ing of the above Hyperlipidemia 42279765 E78.5 On rosuvastat in 40mg daily, but stopped this on her own, will need to restart 09/17/2022 Not on vascepaGet labs 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 901344483 E11.9 On glipizide will decrease to 2.5mg [...] labs, does well Chronic ki dney disease 274793980 N18.[address] Dr Benvaides On calcitriol On vit d weekly On lokelma (to treat high K), but not taking this as per her 11/19/2021 On mag ox Obstructiv e sleep apnea syndrome 95245332 G47.33 On CPAPSee pulmonary History of bariatric surgical procedure 197361465 Z98.[address] Mccray 07/09/2021 : Did not do the EGD as she was told to go an 1.5 hour awayGet a referral to Dr Sylvain VILLALOBOS 11/19/2021 Dr Narayan 02/05/2023 , started on linzess, f/u in 3 monthsNot taking linzess now Hypothyroidism 92351713 E03.9 On euthyrox 50mcgs daily US thyroid 07/06/2021 : Neg Pain of ri ght elbow joint 9582295662 4456777 M25.521 Still c/o pain and unable to extend the elbowAlso c/o pain in the R wrist Dr Calderon 12/18/2021 , 03/27/2022 , may need elbow arthroplas ty, and cardiac clearance, she did see Bg Zaldivar on 06/12/2022 as per her history 09/17/2022 and was told no surgery needed Near syncope 041918375 R 55 [facility] 08/16/2022 , Dr Foley, next apt is in 6 months Diaphragmatic hernia 398 69331 K44.9 S/p [facility], 07/04/2022 , EGD 07/04/2022 Dr Narayan Essential hypertension 68716133 I10 S/p Roldan ICD 020: Seen in ER CNE as the [employer]otron[employer] ICD was firing, as per Dr Alejandra this is lead noise and not true v-tach, pt d/c with f/u in Dr Alejandra' s office On ASAOn entresto 24-26mg bid Dr FoleyOn sotalol 80mg bid, changed to 40mg bid post d/c [facility] 01/22/2022 On mag ox Sees [facility] Dr Foley last OV 02/28/2023 , next in 6 months Moderate r ecurrent major depression 76233287 F33.1 On venlafaxin e ER 75mg dailyOn xanax 0.5mg daily as needed but uses this very rarelyOn buspirone 10mg po bid all side effects explained to her Does well, not suicidal or homicidalD eclines any psychiatry referrals Excess yousif niculus of abdomen 3647944234 101 E65 S/p surgery Dr Funes, she self referred to him Infected wound on 02/24/2021 and was readmitted , wound exploratio n and packing done in OR by Dr Lazo on 02/24/2021 Does well nowOn tramadol, advised to not take this often Small glenda l obstruction 558347272 K56.609 Admitted [facility], d/c 01/22S/p resection 01/16/2022 , treated with IV antibiotic s and PICC line as was NPO 01/22/2022 :CMP: Gluc 100, AST 37HCBC: WBC 10.8H, H/H 10.8/33.5 Does well now Thrombocyt openic disorder 783984821 D69.6 Dr Willis 02/28/2023 , f/u in 6 months Transient cerebral ischemia 797965901 G45.9 This is new history as per herShe has seen a neurologis t in [place], cannot recall the nameShe has signed a LUDMILA and will call with the name Dr Hernandez 02/18/2022 Screening mammography 24 378688 Z12.31 Constipation 99256495 K5 9.00 Did see WILFREDO Roland DEHYDROGENATION SUPERVISOR on 01/14/2023 and did do an xray abd, now is on linzess as per her history Pain of left wrist 56744 61986 41912 M25.532 S/p EMG done by Dr HernandezGet an apt with hand surgery Screening for osteoporosis 171674489 Z13.820 Adult heal th examination 625125564 Z00.00 Screening for disorder 574857094 Z13.9 Skin lesion 37408330 L98 .9 Left anterior leg, small tender lesion noted, refer to Dr Cm [id number] Massimo Proter, [facility] Podiatry [place] [address] [facility] [address] [place] [address] 06/03/2023 09:34:08 06/03/2023 10:36:29 Pain of toe of left foot 8690935028 93534 M79.675 left 2nd previous surgeryxra ys orderedcon t Supportive shoe gearfollow -up in 3 months Bunion 606672642 M21.61 1 xrays orderedfol low-up x-rays Osteoarthritis 278765690 M19.90 right midfootxra ys orderedfol low-up x-rays Diabetes mellitus 646747 09 E11.9 Patient educated on neuropathy , diabetes, diabetic diet, and daily foot exams. Patient is to check feet daily for new wounds, blisters, redness to prevent infection and ulceration s to the feet. Patient will return to clinic in 3 months for diabetic foot workup. Dystrophia unguium 36959 009 L60.3 Nails 1 through 10 were [...] Erazo Member ID Guarantor Name 08/27/2023 1 MEDICARE-[place] (MEDICARE) Tim Pantoja [id number] Tim Pantoja 08/27/2023 2 AET [employer]ANCE [employer] (MEDICARE SUPPLEMENT) [employer] Tim Pantoja [id number] Tim Pantoja OBGyn Episode No OBEpisode recorded.
--- OUTSIDE RECORDS SUMMARY | 2025-05-24 09:13 | XMS_ITS | Clinical Summary ---
Author Organization [facility] Address [address] [facility] [address] [place] [address] Phone Care Team Providers Care Application Development Liaison Name Role Phone Duglas Collado MD Primary [...] Encounters Date Type Department Care Team Description 05/11/2025 External Device Data ST[facility] ABSTRACTION Provider, Abstract 05/11/2025 External Device Data [facility] ABSTRACTION Provider, Abstract 04/12/2025 External Device Data [facility] ABSTRACTION Provider, [...] Comments Blood Pressure 104/71 2024 2:17 PM TRUCK REPAIR SERVICE ESTIMATOR Pulse 91 2024 2:17 PM TRUCK REPAIR SERVICE ESTIMATOR Temperature 36.9 C (98.4 F) 2024 2:17 PM TRUCK REPAIR SERVICE ESTIMATOR Respiratory Rate 15 2024 2:17 PM TRUCK REPAIR SERVICE ESTIMATOR Oxygen Saturation 95% 2024 2:17 PM TRUCK REPAIR SERVICE ESTIMATOR Inhaled Oxygen Concentration - - Weight 69.3 kg (152 lb 12.8 oz) 2024 2:17 PM TRUCK REPAIR SERVICE ESTIMATOR Height 152.4 cm (5') 04/25/2022 11:38 AM CDT Body Mass Index 29.84 04/25/2022 11:38 AM CDT Plan of Treatment Upcoming Encounters Date Type Department Care Team (Late st Contact Info) Description 05/27/2025 10:30 AM CDT Office Visit [facility] Oncology and Hematology - [place] [address] [facility] [address] [place] [address] Brandon Willis MD [address] [facility] [address] [place] [address] Health Maintenance Due Date Last [...] , 09/19/2019 Medical Devices Implanted Type Area Harm Reduction Worker Device Identifier Shelf Expiration Date Model / Serial / Lot Lap Band,Bilat Knee Replacement Implanted:(Quantit y not on file) Explanted:(Quantit y not on file) Insurance MEDICARE PART A AND B [employer] MEDICARE SUPP AESSI MEDICARE PART A AND B [employer] MEDICARE SUPP AESSI Advance Directives For more information, please contact: [phone] * Full Code (Latest Code Status on File) Date Activated Date Inactivated Comments 07/05/2014 8:17 AM 07/05/2014 11:32 AM * Full Code Date Activated Date Inactivated Comments 07/05/2014 6:54 AM 07/05/2014 8:17 AM Care Teams Application Development Liaison Relationship Specialty Start Date End Date Duglas Collado MD PCP - General Internal Medicine 03/27/22
--- OUTSIDE RECORDS SUMMARY | 2025-05-24 09:13 | XMS_ITS | Clinical Summary ---
Author Organization [facility] al Address [address] [place] [address] Care Team Providers Care Electorate Officer Name Role Phone Dante Collado MD Primary Care Provide r Mk Alejandra MD Unavailable [phone] Allergies Active Allergy Reactions Criticality Noted Date [...] (01/17/2021): Added automatically from request for surgery [id number] Troponin level elevated 03/29/2020 Defibrillator discharge 03/28/2020 [...] on file Legal Sex Female 7:03 PM REPAIRER TYPEWRITER Gender Identity Not on file Sexual Orientation Not on file Obstetrics History Last Filed Vital Signs Vital Sign Reading Time Taken Comments Blood Pressure 120/81 09/05/2022 8:37 AM REPAIRER TYPEWRITER Pulse 66 09/05/2022 8:37 AM REPAIRER TYPEWRITER Temperature 36.4 C (97.5 F) 11/18/2021 2:14 PM REPAIRER TYPEWRITER Respiratory Rate 25 11/18/2021 6:20 PM REPAIRER TYPEWRITER Oxygen Saturation 100% 11/18/2021 6:20 PM REPAIRER TYPEWRITER Inhaled Oxygen Concentration - - Weight 66 kg (145 lb 6.4 oz) 09/05/2022 8:37 AM REPAIRER TYPEWRITER Height 154.9 cm (5' 1) 09/05/2022 8:37 AM REPAIRER TYPEWRITER Body Mass Index 27.47 09/05/2022 8:37 AM REPAIRER TYPEWRITER Plan of Treatment Health Maintenance Due Date [...] Cancer Screening-Colonoscopy 07/01/2023 07/01/2013 Influenza Vaccine (#1) 2025 9, 08/09/2019, 08/08/2019, Additional history exists Colon Cancer Screening-CT Colonography Discontinued 07/01/2013 Colon Cancer Screening-DNA Stool Discontinued 07/01/20 Colon Cancer Screening-FIT Discontinued 07/01/2013 Colon Cancer Screening-Sigmoidoscopy Discontinued 07/01/2013 Pneumococcal vaccine 65+ Completed 09/17/2022, 08/28 Medical Devices Implanted Type Area Distillery Miller Helper Device Identifier Shelf Expiration Date Model / Serial / Lot [employer] [id number] Solia S 45cm Bipolar Active Fixation Lead Pacing Steroid Eluting - [id number] - [id number] Implanted:Qty: 1 on 09/22/2019 by Mk Alejandra MD at [facility] Lead [employer] [id number] 06/26/2021 [id number] / [id number] / Lead Icd Sentus Promri Left Ventricular Otw Quadripolar L-85/49 - [id number] - [id number] Implanted:Qty: 1 on 04/09/2018 by Mk Alejandra MD at [facility] [employer] 12/25/2019 [id number] / [id number] / [employer] [id number] Angio-Seal Vip Bondek-Plus 8fr .038in 70cm Hemostatic Latex Free - [id number] Implanted:Qty: 1 on 10/13/2018 by Mk Alejandra MD at [facility] [employer] 05/26/2019 [id number] / / [id number] Procedures Procedure Name Priority Date/Time Associated Diagnosis Comments EGFR STAT 11/18/2021 3:26 PM REPAIRER TYPEWRITER LIPID PANEL Timed 03/28/2020 1:05 PM CDT COLONOSCOPY REPORT 07/01/2013 from Last 3 Months or Most Recently Relevant to Health Maintenance Results * eGFR (11/18/2021 3:26 PM REPAIRER TYPEWRITER) eGFR 73 mL/min/1. 73 m2 MAT FERREIRA [...] last reviewed 2021. Blood 11/18/2021 3:26 PM REPAIRER TYPEWRITER 11/18/2021 3:33 PM REPAIRER TYPEWRITER us Felisha Porter MD LAB BLOOD ORDERABLES Final Resu lt MAT FERREIRA [id number] Department [place] [address] * Lipid panel (03/28/2020 1:05 PM CDT) [...] LAB BLOOD ORDERAB[place] [address] Department [place] [address] * COLONOSCOPY REPORT (07/01/2013) Anatomical Region Laterality Modality Other Narrative 07/01/2013 Ordered by an unspecified provider. Historical Provider GI PROCEDURE ORDERABLES F inal Result from Last 3 Months or Most Recently Relevant to Health Maintenance Insurance MEDICARE AETNA SENIOR SUPPLEMENT MEDICARE [facility] MEDICARE AETNA Advance Directives For more information, please contact: [phone] * Full Code (Latest Code Status on [...] 11:02 PM 10/01/2017 2:07 PM Care Teams Electorate Officer Relationship Specialty Start Date End Date Dante Collado MD [address] [address] PCP - General 09/10/17 [place] [address] [address] Consulting Physician Cardiology 10/01/17
--- OUTSIDE RECORDS SUMMARY | 2025-05-24 09:13 | XMS_ITS | Referral Summary ---
Author Organization [facility] al Address [address] [place] [address] Care Team Providers Care Switchboard Manager Name Role Phone Dante Collado MD [...] (01/17/2021): Added automatically from request for surgery [id number] Troponin level elevated 03/29/2020 Defibrillator discharge 03/28/2020 [...] on file Legal Sex Female 7:03 PM DIRT SHOVELER Gender Identity Not on file Sexual Orientation Not on file Last Filed Vital Signs Vital Sign Reading Time Taken Comments Blood Pressure 120/81 09/05/2022 8:37 AM DIRT SHOVELER Pulse 66 09/05/2022 8:37 AM DIRT SHOVELER Temperature 36.4 C (97.5 F) 11/18/2021 2:14 PM DIRT SHOVELER Respiratory Rate 25 11/18/2021 6:20 PM DIRT SHOVELER Oxygen Saturation 100% 11/18/2021 6:20 PM DIRT SHOVELER Inhaled Oxygen Concentration - - Weight 66 kg (145 lb 6.4 oz) 09/05/2022 8:37 AM DIRT SHOVELER Height 154.9 cm (5' 1) 09/05/2022 8:37 AM DIRT SHOVELER Body Mass Index 27.47 09/05/2022 8:37 AM DIRT SHOVELER Plan of Treatment Not on file Medical Devices Implanted Type Area Vp Human Resources Device Identifier Shelf Expiration Date Model / Serial / Lot Biot[employer]ik Inc [id number] Solia S 45cm Bipolar Active Fixation Lead Pacing Steroid Eluting - [id number] - [id number] Implanted:Qty: 1 on 09/22/2019 by Mk Alejandra MD at [facility] Lead [employer] [id number] 06/26/2021 [id number] / [id number] / Lead Icd Sentus Promri Left Ventricular Otw Quadripolar L-85/49 - [id number] - [id number] Implanted:Qty: 1 on 04/09/2018 by Mk Alejandra MD at [facility] [employer] 12/25/2019 [id number] / [id number] / [employer] [id number] Angio-Seal Vip Bondek-Plus 8fr .038in 70cm Hemostatic Latex Free - [id number] Implanted:Qty: 1 on 10/13/2018 by Mk Alejandra MD at [facility] [employer] 05/26/2019 [id number] / / [id number] Procedures Procedure Name Priority Date/Time Associated Diagnosis Comments EGFR STAT 11/18/2021 3:26 PM DIRT SHOVELER LIPID PANEL Timed 03/28/2020 1:05 PM CDT COLONOSCOPY REPORT 07/01/2013 from Last 3 Months or Most Recently Relevant to Health Maintenance Results * eGFR (11/18/2021 3:26 PM DIRT SHOVELER) eGFR 73 mL/min/1. 73 m2 MAT FERREIRA [...] last reviewed 2021. Blood 11/18/2021 3:26 PM DIRT SHOVELER 11/18/2021 3:33 PM DIRT SHOVELER us Felisha Porter MD LAB BLOOD ORDERABLES Final Resu lt MAT FERREIRA [address] Department [place] [address] * Lipid panel (03/28/2020 1:05 [...] LAB BLOOD ORDERABLES [place] [address] [address] Department of Laboratories [place] [id number] * COLONOSCOPY REPORT (07/01/2013) Anatomical Region Laterality Modality Other Narrative 07/01/2013 Ordered by an unspecified provider. [facility] Provider GI PROCEDURE ORDERABLES F inal Result from Last 3 Months or Most Recently Relevant to Health Maintenance Insurance MEDICARE AETNA SENIOR SUPPLEMENT MEDICARE AETNA SENIOR SUPPLEMENT MEDICARE AETNA Advance Directives For more information, please contact: [phone] * Full Code (Latest Code Status on [...] 11:02 PM 10/01/2017 2:07 PM Care Teams Switchboard Manager Relationship Specialty Start Date End Date Dante Collado MD [address] [facility] [address] [place] [address] PCP - General 09/10/17 [place] [address] [id number] [place] [address] Consulting Physician Cardiology 10/01/17
--- OUTSIDE RECORDS SUMMARY | 2025-05-24 09:13 | XMS_ITS | Clinical Summary ---
Author Organization [facility] [employer] Address [address] [place] [address] Care Team Providers Care Temporary Office Assistant Name Role Phone Duglas Collado MD Primary Care Provider Source Comments [facility] Affiliates and Associated Physician Practices is amultiple site organization consisting of ambulatory clinics and hospital sitesin [place], [place], [place] and [place]. This disclosure is being madepursuant to the Care Everywhere program and may not contain all information available regarding this patient. Last updated 18.[facility] [employer] Allergies Active Allergy Reactions Criticality Noted Date Comments Codeine Nausea and/or Vomiting,Vomiting Medium 05/27 Meperidine Nausea and/or Vomiting,Vomiting Medium 05/27 Medications * Be aware that medications may not be up to date on this document. Alwaysverify current medications with the patient. loratadine (CLARITIN) 10 MG tablet Take 10 mg by mouth once daily 9 Active vitamin D, ergocalciferol, (DRISDOL) 1.25 MG (63931 UT) capsule Take 50,000 Units by mouth [...] on file Legal Sex Female 7:00 PM TESTER SEMICONDUCTOR PACKAGES Gender Identity Not on file Sexual Orientation Not on file Last Filed Vital Signs Vital Sign Reading Time Taken Comments Blood Pressure 110/68 10/28/2019 2:58 PM TESTER SEMICONDUCTOR PACKAGES Pulse 77 10/28/2019 2:58 PM TESTER SEMICONDUCTOR PACKAGES Temperature 36.7 C (98.1 F) 10/28/2019 2:58 PM TESTER SEMICONDUCTOR PACKAGES Respiratory Rate 18 10/28/2019 2:58 PM TESTER SEMICONDUCTOR PACKAGES Oxygen Saturation 96% 10/28/2019 2:58 PM TESTER SEMICONDUCTOR PACKAGES Inhaled Oxygen Concentration - - Weight 87.2 kg (192 lb 4.8 oz) 10/28/2019 2:58 P M TESTER SEMICONDUCTOR PACKAGES Height 165.1 cm (5' 5) 10/28/2019 2:58 PM TESTER SEMICONDUCTOR PACKAGES Body Mass Index 32 10/28/2019 2:58 PM TESTER SEMICONDUCTOR PACKAGES Plan of Treatment Health Maintenance Due Date [...] Relevant to Health Maintenance Insurance AETNA MEDICARE T MEDICARE AETNA SELF PAY NO INSURANCE Member Subscriber Plan / Payer (Ef fective for All Dates) Name:Katheryn Phillips Member ID:Not on file Relation to Subscriber:Not on file Name:KATHERYN PHILLIPS Subscriber ID:Not on file (Home) Address: [address] [address] Payer ID:Not on file Group ID:Not on file Type:Self Pay Address: [place], [place] * Guarantor: KATHERYN PHILLIPS Account Type Relation to Patient Date of Phone Billing Address Personal/Family [address] [address] MEDICARE AETNA * Guarantor: KATHERYN PHILLIPS Account Type Relation to Patient Date of Phone Billing Address Personal/Family [address] [address] MEDICARE AETNA * Guarantor: KATHERYN PHILLIPS Account Type Relation to Patient Date of Phone Billing Address Personal/Family [address] [place] [address] MEDICARE AETNA Care Teams Temporary Office Assistant Relationship Specialty Start Date End Date Duglas Collado MD [address] [address] PCP - General Internal Medicine 07/16/19
[2025-05-24 09:32] LABS: Hematocrit 42.6 % (37.0-47.0); Hemoglobin 13.6 g/dL (12.0-15.0); Immature Granulocyte Percent A 0.2 % (0-0.5); Lymphocytes Absolute Auto 1.74 K/mm3 (0.9-3.2); Mean Corpuscular HGB Conc 31.9 g/dl (32-36); Mean Corpuscular Hemoglobin 29.8 pg (26-34); Mean Corpuscular Volume 93.2 fl (80-100); Nucleated Red Blood Cells Absolute Auto 0.000 K/mm3 (0.0-0.012); Nucleated Red Blood Cells Perc 0.0 % (0.0-0.2); Platelet Count Result 114 k/mm3 (150-375); Red Blood Count 4.57 M/mm3 (4.2-5.4); White Blood Count 5.6 K/mm3 (4.5-10.0)
[2025-05-24 09:52] LABS: Alanine Aminotransferase 10 U/L (6-35); Albumin Level 4.0 g/dL (3.5-5.1); Alkaline Phosphatase 68 U/L (38-126); Anion Gap 4 mmol/L (4-12); Aspartate Amino Transferase 34 U/L (14-36); Bilirubin,Total 0.5 mg/dL (0.2-1.3); Blood Urea Nitrogen 22 mg/dL (7-17); Calcium 9.5 mg/dL (8.4-10.2); Carbon Dioxide 29 mmol/L (22-30); Chloride 102 mmol/L (98-107); Estimated Glomerular Filt Rate 43; Glucose 115 mg/dL (65-110); Potassium 4.2 mmol/L (3.4-5.0); Sodium 135 mmol/L (137-145); Total Protein 6.6 g/dL (6.3-8.2)
== END 2025-05-24 08:58 | disposition home or self-care (01) ==
LOC: ANHLAB 09:01
PROVIDERS: PCP Internal Medicine; Visit Provider Internal Medicine Hematology & Oncology
DX: C50.411 Malignant neoplasm of upper-outer quadrant of right female breast (principal); Z71.0 Person encountering health services to consult on behalf of another person
CPT/HCPCS: 36415; 80053; 85025; 86300

== ENCOUNTER 2025-08-11 12:53 | Outpatient (CLI) | payer MEDICARE, SELFPAY ==
--- OUTSIDE RECORDS SUMMARY | 2010-01-11 06:15 | XMS_ITS | Continuity of Care Document ---
Author Organization [facility] Address [address] [place] [address] [address] [place] [address] Phone Care Team Providers Care Apparel Cutter Name Role Phone Jessica Reece Unavailable Unavailable Procedures Procedure Date Office/outpatient Visit, Est Advance Directives Directive Yes / No Effective Date File Name No Information Encounters Encounter Description Practice Location Reason(s) For Visit Diagnoses Date Provider Providers Copied on Encounter Office/outpat ient Visit, Est [facility], [address] [place] [address] [address], [place], [place], [id number], [place] tel:[phone] SEC [facility] No Information 8-201 0 Shanell Lopez. [address] [facility] , [address], [place], [address], [place]. tel:[phone] Family History Family Member Type Diagnosis Age At Onset No Information Payers Payer name Insurance type Covered green party ID Authoriza tion(s) No Information Social [...]
--- OUTSIDE RECORDS SUMMARY | 2025-07-29 04:30 | XMS_ITS | Continuity of Care Document ---
Author Organization [facility] Address [address] [place] [address] Phone Care Team Providers Care Stack Yield Engineer Name Role Phone Alaina DELGADILLO, [facility], [facility] Unavailable Unavailab le Allergies, Adverse Reactions, Alerts [...] e/m visit add on OFFICE/OUTPATIENT VISIT, EST ICM DEVICE INTERROGAT REMOTE ICD DEVICE INTERROGAT REMOTE PM/ICD REMOTE TECH SERV ICM DEVICE INTERROGAT REMOTE Advance Directives Directive Yes / No Effective Date File Name No Information Encounters Encounter Description Practice Location Reason(s) For Visit Diagnoses Date Provider Providers Copied on Encounter OFFICE/OUTPA TIENT VISIT, EST [facility], [address] [place] [address], [id number] , tel: [phone] [facility] Follow Up of cardiology exam (chief complaint) CADCHFHyperlipidemia , unspecifiedEssential (primary) hypertensionCardiomy opathy, unspecified 5 Alaina Fraire. [address] [place], [id number] , [place]. tel: [phone] Referring Provider: Juno Foley, [address], [place], [address] . tel:[phone] [facility], [address] [place] [address], [id number] , tel: [phone] [facility] No Information 5 Alaina Fraire. [address], [place], [place], [id number] , . tel: [phone] [facility], [address] [place] [address], [id number] , tel: [phone] [facility] [place] Presence of automatic (implantable) cardiac defibrillator 5 Alaina Fraire. [address] [place], [place], [id number] , . tel: [phone] Referring Provider: Juno Simyyum, [address], [place], [address] . tel: [phone] sulting Provider: Juno Simyyum, [address], [place], [address] . tel:[phone] [facility], [address] [place] [address], [id number] , tel: [phone] [facility] [place] Presence of automatic (implantable) cardiac defibrillator 5 Alaina Fraire. [address] [place], [place], [id number] , . tel: [phone] Referring Provider: Juno Foley, [address] , [place], [address] . tel: [phone] sulting Provider: Juno Foley, [address] , [place], [address] . tel:[phone] [facility], [address] [place] [address], [id number] , tel: [phone] [facility] [place] Presence of automatic (implantable) cardiac defibrillator 5 Alaina Fraire. [address] [place], [place], [id number] , . tel: [phone] Referring Provider: Jnuo Cordovaum, [address], [place], [address] . tel: [phone] sulting Provider: Juno Simyyum, [address], [place], [address] . tel:[phone] [facility], [address] [place] [address], [place], [place], [id number] , tel: [phone] [facility] [place] Chest pain, unspecifiedCADDM type IICHFHyperlipidemia, unspecifiedEssential (primary) hypertensionSleep apnea, unspecifiedCardiomyo harvinder, unspecifiedLeft BBBMitral regurgitationVentric ular tachycardia, unspecifiedPVCs Alaina Juno. [address] [facility], [place], [place], [id number] , [place]. tel: [phone] Family History Family Member Type Diagnosis Age At Onset No Information Payers Payer name Insurance type Covered libertarian ID Authoriza tion(s) [place] CI [id number] AETNA [facility] CI [id number] Social History Type Description Quantity Date Captured [...] And Reason For Visit From encounter dated '07/29/2025 09:30'. Follow Up of cardiology exam (chief [...]
[2025-08-11 14:03] LABS: Hematocrit 40.4 % (37.0-47.0); Hemoglobin 13.1 g/dL (12.0-15.0); Immature Granulocyte Percent A 0.3 % (0-0.5); Lymphocytes Absolute Auto 1.46 K/mm3 (0.9-3.2); Mean Corpuscular HGB Conc 32.4 g/dl (32-36); Mean Corpuscular Hemoglobin 30.0 pg (26-34); Mean Corpuscular Volume 92.4 fl (80-100); Nucleated Red Blood Cells Absolute Auto 0.000 K/mm3 (0.0-0.012); Nucleated Red Blood Cells Perc 0.0 % (0.0-0.2); Platelet Count Result 108 k/mm3 (150-375); Red Blood Count 4.37 M/mm3 (4.2-5.4); White Blood Count 6.8 K/mm3 (4.5-10.0)
[2025-08-11 14:22] LABS: Alanine Aminotransferase 9 U/L (6-35); Albumin Level 4.1 g/dL (3.5-5.1); Alkaline Phosphatase 64 U/L (38-126); Anion Gap 3 mmol/L (4-12); Aspartate Amino Transferase 31 U/L (14-36); Bilirubin,Total 0.5 mg/dL (0.2-1.3); Blood Urea Nitrogen 14 mg/dL (7-17); Calcium 9.0 mg/dL (8.4-10.2); Carbon Dioxide 30 mmol/L (22-30); Chloride 103 mmol/L (98-107); Cholesterol 152 mg/dL (0-200); Estimated Glomerular Filt Rate 48; Glucose 80 mg/dL (65-110); HDL Direct 64 mg/dL; Potassium 4.0 mmol/L (3.4-5.0); Sodium 136 mmol/L (137-145); Total Protein 6.5 g/dL (6.3-8.2); Triglycerides 152 mg/dL (<150)
[2025-08-11 14:31] LABS: MALB Creatinine Ratio 4.1 mg/g (0-30)
--- OUTSIDE RECORDS SUMMARY | 2025-08-11 14:31 | XMS_ITS | Clinical Summary ---
Author Organization [facility] Address [address] [facility] [address] [place] [address] Phone Care Team Providers Care Concrete Curer Name Role Phone Duglas Collado MD Primary [...] Encounters Date Type Department Care Team Description 07/19/2025 External Device Data STL ABSTRACTION Provider, Abstract 07/12/2025 External Device Data STL ABSTRACTION Provider, Abstract 05/27/2025 10:30 AM CDT Office Visit [facility] Oncology and Hematology - [place] [address] [place] [address] Brandon Willis MD Malignant neoplasm of upper-outer quadrant of right breast in female, estrogen receptor negative (CMS/HCC) (Primary Dx); Chronic anemia 05/25/2025 Orders Only [facility] Oncology and Hematology [facility] [address] [place] [address] Brandon Willis MD 05/11/2025 External Device Data STL ABSTRACTION Provider, [...] Sign Reading Time Taken Comments Blood Pressure 89/51 05/27/2025 10:24 AM CDT Pulse 114 05/27/2025 10:22 AM CDT Temperature 36.1 C (96.9 F) 05/27/2025 10:22 AM CDT Respiratory Rate 15 05/27/2025 10:22 AM CDT Oxygen Saturation 97% 05/27/2025 10:22 AM CDT Inhaled Oxygen Concentration - - Weight 63.7 kg (140 lb 6.4 oz) 05/27/2025 10:22 AM CDT Height 152.4 cm (5') 04/25/2022 11:38 AM CDT Body Mass Index 27.42 04/25/2022 11:38 AM CDT Plan of Treatment Upcoming Encounters Date Type Department Care Team (Late st Contact Info) Description 09/02/2025 10:30 AM ADMINISTRATIVE HEARING OFFICER Office Visit [facility] Oncology and Hematology - [place] [address] [facility] [address] [place] [address] Brandon Willis MD [address] [facility] [address] [place] [address] Health Maintenance Due Date Last [...] Additional history exists INFLUENZA VACCINE (#1) 2025 , 08/14/2021, 08/09/2019, Additional history exists RSV VACCINE (60+ or ) (1 - 1-dose 75+ series) 2025 OSTEOPOROSIS SCREENING 11/28/2028 11/28/2023, 2020 COLORECTAL SCREENING 05/12/2035 05/12/2025, 11/07/2022, 07/01/2013 Colorectal Cancer Screening 05/12/2035 PNEUMOCOCCAL VACCINE 50+ YEARS Completed 09/17/2022 , 09/19/2019 Medical Devices Implanted Type Area Eyelet Row Marker Device Identifier Shelf Expiration Date Model / Serial / Lot Lap Band,Bilat Knee Replacement Implanted:(Quantit y not on file) Explanted:(Quantit y not on file) Procedures Procedure Name Priority Date/Time Associated Diagnosis Comments CHG CA 15 3 Routine 05/24/2025 1:52 PM CDT COMPREHENSIVE METABOLIC PANEL Routine 05/24/2025 12:36 PM CDT from Last 3 Months Results * CHG CA 15 3 (05/24/2025 1:52 PM CDT) Brandon Willis MD CHG - LABORATORY Final Result * COMPREHENSIVE METABOLIC PANEL (05/24/2025 12:36 PM CDT) Blood Brandon Willis MD CHEMISTRY ORDERABLES Final Resu lt from Last 3 Months Insurance MEDICARE PART A AND B AETNA MEDICARE SUPP AESSI MEDICARE PART A AND B AET MEDICARE SUPP AESSI Advance Directives For more information, please contact: [phone] * Full Code (Latest Code Status on File) Date Activated Date Inactivated Comments 07/05/2014 8:17 AM 07/05/2014 11:32 AM * Full Code Date Activated Date Inactivated Comments 07/05/2014 6:54 AM 07/05/2014 8:17 AM Care Teams Concrete Curer Relationship Specialty Start Date End Date Duglas Collado MD PCP - General Internal Medicine 03/27/22
--- OUTSIDE RECORDS SUMMARY | 2025-08-11 14:32 | XMS_ITS | Clinical Summary ---
Author Organization [facility] Address [address] [place] [address] Care Team Providers Care Oracle Forms Developer Name Role Phone Dante Collado MD Primary Care Provide r Mk Alejandra MD Unavailable [phone] Allergies Active Allergy Reactions Criticality Noted Date [...] (01/17/2021): Added automatically from request for surgery [id number] Troponin level elevated 03/29/2020 Defibrillator discharge 03/28/2020 [...] LBBB (left bundle branch block) Arrhythmia Cardiomyopathy VT (ventricular tachycardia) Type 2 diabetes mellitus Hypothyroidism Arthritis CHF (congestive heart failure) (HCC) [...] on file Legal Sex Female 7:03 PM WELDER TOOL AND DIE Gender Identity Not on file Sexual Orientation Not on file Obstetrics History Last Filed Vital Signs Vital Sign Reading Time Taken Comments Blood Pressure 120/81 09/05/2022 8:37 AM WELDER TOOL AND DIE Pulse 66 09/05/2022 8:37 AM WELDER TOOL AND DIE Temperature 36.4 C (97.5 F) 11/18/2021 2:14 PM WELDER TOOL AND DIE Respiratory Rate 25 11/18/2021 6:20 PM WELDER TOOL AND DIE Oxygen Saturation 100% 11/18/2021 6:20 PM WELDER TOOL AND DIE Inhaled Oxygen Concentration - - Weight 66 kg (145 lb 6.4 oz) 09/05/2022 8:37 AM WELDER TOOL AND DIE Height 154.9 cm (5' 1) 09/05/2022 8:37 AM WELDER TOOL AND DIE Body Mass Index 27.47 09/05/2022 8:37 AM WELDER TOOL AND DIE Plan of Treatment Health Maintenance Due Date [...] Visit 65+ 2015 Lipid Panel 03/28/2021 03/28/2020, 12/01/2017, 01/06/2017 Fall Risk Assessment 03/29/2021 03/29/2020 eGFR 11/18/2022 11/18/2021, 06/0 01/2020, 03/28/2020, Additional history exists Colon Cancer Screening-Colonoscopy 07/01/2023 07/01/2013 Influenza Vaccine (#1) 2025 9, 08/09/2019, 08/08/2019, Additional history exists Colon Cancer Screening-CT Colonography Discontinued 07/01/2013 Colon Cancer Screening-DNA Stool Discontinued 07/01/20 13 Colon Cancer Screening-FIT Discontinued 07/01/2013 Colon Cancer Screening-Sigmoidoscopy Discontinued 07/01/2013 Pneumococcal vaccine 65+ Completed 09/17/2022, 08/28 Medical Devices Implanted Type Area Piece Jobber Device Identifier Shelf Expiration Date Model / Serial / Lot Biot[employer] Inc [id number] Solia S 45cm Bipolar Active Fixation Lead Pacing Steroid Eluting - [id number] - [id number] Implanted:Qty: 1 on 09/22/2019 by Mk Alejandra MD at [facility] Lead [employer] [id number] 06/26/2021 [id number] / [id number] / Lead Icd Sentus Promri Left Ventricular Otw Quadripolar L-85/49 - [id number] - [id number] Implanted:Qty: 1 on 04/09/2018 by Mk Alejandra MD at [facility] [employer] 12/25/2019 [id number] / [id number] / [employer]ig [employer] [id number] Angio-Seal Vip Bondek-Plus 8fr .038in 70cm Hemostatic Latex Free - [id number] Implanted:Qty: 1 on 10/13/2018 by Mk Alejandra MD at [facility] [employer] 05/26/2019 [id number] / / [id number] Procedures Procedure Name Priority Date/Time Associated Diagnosis Comments EGFR STAT 11/18/2021 3:26 PM WELDER TOOL AND DIE LIPID PANEL Timed 03/28/2020 1:05 PM CDT COLONOSCOPY REPORT 07/01/2013 from Last 3 Months or Most Recently Relevant to Health Maintenance Results * eGFR (11/18/2021 3:26 PM WELDER TOOL AND DIE) eGFR 73 mL/min/1. 73 m2 MAT FERREIRA [...] last reviewed 2021. Blood 11/18/2021 3:26 PM WELDER TOOL AND DIE 11/18/2021 3:33 PM WELDER TOOL AND DIE us Felisha Porter MD LAB BLOOD ORDERABLES Final Resu lt MAT FERREIRA [id number] [place] [address] * Lipid panel (03/28/2020 1:05 PM CDT) [...] on 2018. Triglycerides 108 <=149 mg/dL MAT FERREIRA Comment: Interpretive Data Ages [...] LAB BLOOD ORDERABLES [place] [id number] Department [place] [address] * COLONOSCOPY REPORT (07/01/2013) Anatomical Region Laterality Modality Other Narrative 07/01/2013 Ordered by an unspecified provider. Historical Provider GI PROCEDURE ORDERABLES F inal Result from Last 3 Months or Most Recently Relevant to Health Maintenance Insurance MEDICARE AETNA SENIOR SUPPLEMENT MEDICARE [facility] MEDICARE AETNA Advance Directives For more information, please contact: [phone] * Full Code (Latest Code Status on [...] 11:02 PM 10/01/2017 2:07 PM Care Teams Oracle Forms Developer Relationship Specialty Start Date End Date Dante Collado MD [address] [address] PCP - General 09/10/17 [place] [id number] [address] Consulting Physician Cardiology 10/01/17
--- OUTSIDE RECORDS SUMMARY | 2025-08-11 14:32 | XMS_ITS | Clinical Summary ---
Author Organization [facility] Risk Ident Address [address] [place] [address] Care Team Providers Care Income Auditor Name Role Phone Duglas Collado MD Primary Care Provider Source Comments [facility] Affiliates and Associated Physician Practices is amultiple site organization consisting of ambulatory clinics and hospital sitesin [place], [place], [place] and [place]. This disclosure is being madepursuant to the Care Everywhere program and may not contain all information available regarding this patient. Last updated 18.[facility] Risk Ident Allergies Active Allergy Reactions Criticality Noted Date Comments Codeine Nausea and/or Vomiting,Vomiting Medium 05/27 Meperidine Nausea and/or Vomiting,Vomiting Medium 05/27 Medications * Be aware that medications may not be up to date on this document. Alwaysverify current medications with the patient. loratadine (CLARITIN) 10 MG tablet Take 10 mg by mouth once daily 9 Active vitamin D, ergocalciferol, (DRISDOL) 1.25 MG (90564 UT) capsule Take 50,000 Units by mouth [...] on file Legal Sex Female 7:00 PM TRACK TEMPLATE MAKER Gender Identity Not on file Sexual Orientation Not on file Last Filed Vital Signs Vital Sign Reading Time Taken Comments Blood Pressure 110/68 10/28/2019 2:58 PM TRACK TEMPLATE MAKER Pulse 77 10/28/2019 2:58 PM TRACK TEMPLATE MAKER Temperature 36.7 C (98.1 F) 10/28/2019 2:58 PM TRACK TEMPLATE MAKER Respiratory Rate 18 10/28/2019 2:58 PM TRACK TEMPLATE MAKER Oxygen Saturation 96% 10/28/2019 2:58 PM TRACK TEMPLATE MAKER Inhaled Oxygen Concentration - - Weight 87.2 kg (192 lb 4.8 oz) 10/28/2019 2:58 P M TRACK TEMPLATE MAKER Height 165.1 cm (5' 5) 10/28/2019 2:58 PM TRACK TEMPLATE MAKER Body Mass Index 32 10/28/2019 2:58 PM TRACK TEMPLATE MAKER Plan of Treatment Health Maintenance Due Date [...] DIABETES-HGB A1C 10/28/2019 DIABETES-SERUM CREATININE 12/20/2020 12/20/2019 DEPRESSION SCREENING 10/27/2024 DIABETES - URINE PROTEIN SCREENING 10/27/2024 COVID-19 VACCINE ( - season) 2025 INFLUENZA VACCINE (#1) 2025 9, 08/09/2019, 08/05/2018, [...] Relevant to Health Maintenance Insurance AETNA MEDICARE [facility] MEDICARE AETNA SELF PAY NO INSURANCE Member Subscriber Plan / Payer (Ef fective for All Dates) Name:Katheryn Phillips Member ID:Not on file Relation to Subscriber:Not on file Name:KATHERYN PHILLIPS Subscriber ID:Not on file (Home) Address: [facility] [place] [address] Payer ID:Not on file Group ID:Not on file Type:Self Pay Address: [place], [place] * Guarantor: KATHERYN PHILLIPS Account Type Relation to Patient Date of Phone Billing Address Personal/Family [address] [place] [place] [address] MEDICARE AETNA * Guarantor: KATHERYN PHILLIPS Account Type Relation to Patient Date of Phone Billing Address Personal/Family [address] [place] [address] MEDICARE AETNA * Guarantor: KATHERYN PHILLIPS Account Type Relation to Patient Date of Phone Billing Address Personal/Family [address] [place] [address] MEDICARE AETNA Care Teams Income Auditor Relationship Specialty Start Date End Date Duglas Collado MD [address] [address] PCP - General Internal Medicine 07/16/19
[2025-08-11 14:42] LABS: Free T4 Free Thyroxine 1.15 ng/dL (0.78-2.19)
[2025-08-11 14:58] LABS: Thyroid Stimulating Hormone 0.940 uIU/mL (0.465-4.680)
[2025-08-11 19:19] LABS: Hemoglobin A1C 5.4 % (<5.7)
== END 2025-08-11 12:54 | disposition home or self-care (01) ==
PROVIDERS: PCP Internal Medicine; Visit Provider Internal Medicine
DX: E78.5 Hyperlipidemia, unspecified (principal); R79.89 Other specified abnormal findings of blood chemistry; I10 Essential (primary) hypertension; E87.6 Hypokalemia; E87.1 Hypo-osmolality and hyponatremia; E03.9 Hypothyroidism, unspecified; Z79.899 Other long term (current) drug therapy; E11.9 Type 2 diabetes mellitus without complications; Z79.4 Long term (current) use of insulin
CPT/HCPCS: 36415; 80053; 80061; 82043; 82306; 83036; 84439; 84443; 85025

== ENCOUNTER 2025-08-23 09:36 | Outpatient (CLI) | payer MEDICARE, SELFPAY ==
--- NOTE | ~2025-08-23 | CT_ITS ---
EXAMINATION: CT abdomen pelvis wo con DATE: 08/23/2025 09:49 INDICATION: Left lower quadrant abdominal pain. Lumbar hernia. TECHNIQUE: Computed tomography (CT) of the abdomen and pelvis was performed without intravenous contrast. Automated exposure control and iterative reconstruction technique were employed. The dose-length product was 319.93 mGy-cm. COMPARISON: CT abdomen 03/23/2025, 02/24/21, 01/31/25 FINDINGS: The visualized portions of lung bases demonstrate calcified bilateral nodules are consistent with old granulomatous disease. No pleural effusion. The heart size is normal. There is a chronic small pericardial effusion. There are pacer wires in right atrium, right ventricle, and coronary sinus. Breast implants are noted. The liver, gallbladder, spleen, pancreas, adrenal glands, and kidneys are normal. There is no urolithiasis. There is an anastomosis in the rectosigmoid. There is diverticulosis of the colon without evidence of diverticulitis. There are no dilated loops of bowel. The appendix is normal. A gastric band is noted. There are no pathologically enlarged lymph nodes. There is no free intraperitoneal fluid. There is a 2.2 x 1.5 cm mass in anterior abdominal wall at the midline, likely a seroma. There is a left-sided lumbar hernia containing fat. There is severe lumbar spondylosis. There is a chronic left L5 pars defect. Lumbar levoscoliosis is noted. IMPRESSION: 1. Left-sided lumbar hernia containing fat. 2. 2.2 cm mass in anterior abdominal wall at the midline, stable from 01/31/25, likely a seroma. 3. Chronic small pericardial effusion. Reviewed, dictated and finalized at location E. IMPRESSION: 1. Left-sided lumbar hernia containing fat. 2. 2.2 cm mass in anterior abdominal wall at the midline, stable from 01/31/25, l ikely a seroma. 3. Chronic small pericardial effusion.
--- NOTE | ~2025-08-23 | XR_ITS ---
EXAMINATION: XR abdomen/kub 1V, 08/23/2025 9:45 CDT HISTORY: abdominal pain COMPARISON: No comparisons available. Technique: 3 view. Findings: Moderate fecal content, no dilated bowel loops.Sequelae of previous surgery noted. No free air. No abnormal calcifications No acute osseous abnormality. Impression: 1. No acute abnormality. Reviewed, dictated and finalized at location P. Impression: 1. No acute abnormality.
--- OUTSIDE RECORDS SUMMARY | 2025-08-23 10:34 | XMS_ITS | Clinical Summary ---
Author Organization [facility] Address [address] [facility] [address] [place] [address] Phone Care Team Providers Care Personal Support Worker Name Role Phone Duglas Collado MD Primary [...] Encounters Date Type Department Care Team Description 08/17/2025 External Device Data STL ABSTRACTION Provider, Abstract 08/16/2025 External Device Data STL ABSTRACTION Provider, Abstract 07/19/2025 External Device Data STL ABSTRACTION Provider, Abstract 07/12/2025 External Device Data STL ABSTRACTION Provider, Abstract 05/27/2025 10:30 AM CDT Office Visit [facility] Oncology and Hematology - [place] [address] [place] [address] Brandon Willis MD Malignant neoplasm of upper-outer quadrant of right breast in female, estrogen receptor negative (CMS/HCC) (Primary Dx); Chronic anemia 05/25/2025 Orders Only [facility] Oncology and Hematology - [place] [address] [place] [address] Brandon Willis MD from Last 3 Months Family History Medical [...] st Contact Info) Description 09/02/2025 10:30 AM MANAGER ONCOLOGY Office Visit [facility] Oncology and Hematology - [place] [address] [facility] [address] [place] [address] Brandon Willis MD [address] [facility] [address] [place] [address] Health Maintenance Due Date Last [...] , 09/19/2019 Medical Devices Implanted Type Area Swamper Device Identifier Shelf Expiration Date Model / [...] Advance Directives For more information, please contact: [phone] * Full Code (Latest Code Status on File) Date Activated Date Inactivated Comments 07/05/2014 8:17 AM 07/05/2014 11:32 AM * Full Code Date Activated Date Inactivated Comments 07/05/2014 6:54 AM 07/05/2014 8:17 AM Care Teams Personal Support Worker Relationship Specialty Start Date End Date Duglsa Collado MD PCP - General Internal Medicine 03/27/22
--- OUTSIDE RECORDS SUMMARY | 2025-08-23 10:34 | XMS_ITS | Clinical Summary ---
Author Organization [facility] al Address [address] [place] [address] Care Team Providers Care Furnace Utility Operator Name Role Phone Dante Collado MD Primary Care Provide r Mk Alejandra MD Unavailable [phone] Allergies Active Allergy Reactions Criticality Noted Date [...] (01/17/2021): Added automatically from request for surgery [id number] Troponin level elevated 03/29/2020 Defibrillator discharge 03/28/2020 [...] on file Legal Sex Female 7:03 PM VOCATIONAL TECHNICAL EDUCATION DIRECTOR Gender Identity Not on file Sexual Orientation Not on file Obstetrics History Last Filed Vital Signs Vital Sign Reading Time Taken Comments Blood Pressure 120/81 09/05/2022 8:37 AM VOCATIONAL TECHNICAL EDUCATION DIRECTOR Pulse 66 09/05/2022 8:37 AM VOCATIONAL TECHNICAL EDUCATION DIRECTOR Temperature 36.4 C (97.5 F) 11/18/2021 2:14 PM VOCATIONAL TECHNICAL EDUCATION DIRECTOR Respiratory Rate 25 11/18/2021 6:20 PM VOCATIONAL TECHNICAL EDUCATION DIRECTOR Oxygen Saturation 100% 11/18/2021 6:20 PM VOCATIONAL TECHNICAL EDUCATION DIRECTOR Inhaled Oxygen Concentration - - Weight 66 kg (145 lb 6.4 oz) 09/05/2022 8:37 AM VOCATIONAL TECHNICAL EDUCATION DIRECTOR Height 154.9 cm (5' 1) 09/05/2022 8:37 AM VOCATIONAL TECHNICAL EDUCATION DIRECTOR Body Mass Index 27.47 09/05/2022 8:37 AM VOCATIONAL TECHNICAL EDUCATION DIRECTOR Plan of Treatment Health Maintenance Due [...] 09/17/2022, 08/28 Medical Devices Implanted Type Area Negative Checker Device Identifier Shelf Expiration Date Model / Serial / Lot Biotronik Inc [id number] Solia S 45cm Bipolar Active Fixation Lead Pacing Steroid Eluting - [id number] - [id number] Implanted:Qty: 1 on 09/22/2019 by Mk Alejandra MD at [facility] Lead [employer] [id number] 06/26/2021 [id number] / [id number] / Lead Icd Sentus Promri Left Ventricular Otw Quadripolar L-85/49 - [id number] - [id number] Implanted:Qty: 1 on 04/09/2018 by Mk Alejandra MD at [facility] [employer] 12/25/2019 [id number] / [id number] / [employer] [id number] Angio-Seal Vip Bondek-Plus 8fr .038in 70cm Hemostatic Latex Free - [id number] Implanted:Qty: 1 on 10/13/2018 by Mk Alejandra MD at [facility] [employer] 05/26/2019 [id number] / / [id number] Procedures Procedure Name Priority Date/Time Associated Diagnosis Comments EGFR STAT 11/18/2021 3:26 PM VOCATIONAL TECHNICAL EDUCATION DIRECTOR LIPID PANEL Timed 03/28/2020 1:05 PM CDT COLONOSCOPY REPORT 07/01/2013 from Last 3 Months or Most Recently Relevant to Health Maintenance Results * eGFR (11/18/2021 3:26 PM VOCATIONAL TECHNICAL EDUCATION DIRECTOR) eGFR 73 mL/min/1. 73 m2 MAT [...] last reviewed 2021. Blood 11/18/2021 3:26 PM VOCATIONAL TECHNICAL EDUCATION DIRECTOR 11/18/2021 3:33 PM VOCATIONAL TECHNICAL EDUCATION DIRECTOR us Felisha Porter MD LAB BLOOD ORDERABLES Final Resu lt MAT FERREIRA [id number] Department [place] [address] * Lipid panel (03/28/2020 1:05 PM CDT) [...] LAB BLOOD ORDERAB[place] [id number] [address] [place] [address] * COLONOSCOPY REPORT (07/01/2013) Anatomical Region Laterality Modality Other Narrative 07/01/2013 Ordered by an unspecified provider. Historical Provider GI PROCEDURE ORDERABLES F inal Result from Last 3 Months or Most Recently Relevant to Health Maintenance Insurance MEDICARE AETNA SENIOR SUPPLEMENT MEDICARE [facility] MEDICARE AETNA Advance Directives For more information, please contact: [phone] * Full Code (Latest Code Status on [...] PM 10/01/2017 2:07 PM Care Teams Furnace Utility Operator Relationship Specialty Start Date End Date Dante Collado MD [address] [address] PCP - General 09/10/17 [place] [address] [address] Consulting Physician Cardiology 10/01/17
== END 2025-08-23 09:37 | disposition home or self-care (01) ==
PROVIDERS: PCP Internal Medicine; Visit Provider Nurse Practitioner
DX: K45.8 Other specified abdominal hernia without obstruction or gangrene (principal); R22.2 Localized swelling, mass and lump, trunk; I31.39 Other pericardial effusion (noninflammatory)
CPT/HCPCS: 74018; 74176

== ENCOUNTER 2025-09-06 09:10 | Outpatient (CLI) | payer MEDICARE, SELFPAY ==
--- OUTSIDE RECORDS SUMMARY | 2010-01-11 05:15 | XMS_ITS | Continuity of Care Document ---
Author Organization [facility] Address [address] [place] [address] [address] [place] [address] Phone Care Team Providers Care Carbide Grinder Name Role Phone Jessica Reece Unavailable Unavailable Procedures Procedure Date Office/outpatient Visit, Est Advance Directives Directive Yes / No Effective Date File Name No Information Encounters Encounter Description Practice Location Reason(s) For Visit Diagnoses Date Provider Providers Copied on Encounter Office/outpat ient Visit, Est [facility], [address] [place] [address] [address], [place], [place], [id number], [place] tel:[phone] SEC [facility] No Information 8-201 0 Shanell Lopez. [address] [place] , [address], [place], [address], [place]. tel:[phone] Family History Family Member Type Diagnosis Age At Onset No Information Payers Payer name Insurance type Covered constitution party ID Authoriza tion(s) No Information Social History Type Description Quantity Date Captured Comments Sex Female Smoking Status No Information Chief Complaint And Reason For Visit No Information Reason For Referral Reason For Referral No Information History Of Present Illness Encounter Date Complaint History Of Prese nt Illness No Information Functional Status Date Functional Assessmen t No Information Instructions Date Instruction Additional Infor mation No Information Assessments Type Assessment Date No Information Patient Care Teams Name Effective Dates (start - stop) Status Members No Information
--- OUTSIDE RECORDS SUMMARY | 2025-07-29 03:30 | XMS_ITS | Continuity of Care Document ---
Author Organization [facility] Address [address] [place] [address] Phone Care Team Providers Care Saddle Cutter Name Role Phone Alaina DELGADILLO, [facility], [facility] Unavailable Unavailab le Allergies, Adverse Reactions, Alerts Substance Reaction Status Criticality codeine Active No Information MEPERIDINE HCL Active No Informatio n Medications Medication Instructions Dosage Effective Dates (start - stop) Status Comments buspirone 10 mg tablet - Active levothyroxine 50 mcg tablet - Active lubiprostone 24 mcg capsule TAKE 1 CAPSULE BY MOUTH TWICE DAILY - Active venlafaxine ER 75 mg capsule,extended release 24 hr - Active montelukast 10 mg tablet - Active doxycycline hyclate 100 mg tablet - Active ondansetron HCl 8 mg tablet TAKE 1 TABLET BY MOUTH EVERY 8 HOURS NEEDED FOR NAUSEA - Active Ozempic 0.25 mg or 0.5 mg (2 mg/3 mL) subcutaneous pen injector - Active Sutab 1.479-0.188-0.225 gram tablet TAKE TABLET BY MOUTH PER PACKAGE DIRECTIONS - Active rosuvastatin 20 mg tablet TAKE 1 TABLET BY MOUTH ONCE DAILY - Active Entresto 24 mg-26 mg tablet TAKE 1 TABLET BY MOUTH TWICE DAILY - Active alendronate 70 mg tablet - No Longer Active ciprofloxacin 500 mg tablet TAKE 1 TABLET BY MOUTH EVERY 12 HOURS FOR 10 DAYS - No Longer Active metronidazole 500 mg tablet TAKE 1 TABLET BY MOUTH THREE TIMES DAILY - No Longer Active cefuroxime axetil 500 mg tablet - No Longer Active levofloxacin 500 mg tablet - No Longer Active alprazolam 0.5 mg tablet - No Longer Active cefdinir 300 mg capsule - No Longer Active Procedures Procedure Date Complex e/m visit add on OFFICE/OUTPATIENT VISIT, EST TTE W/DOPPLER, COMPLETE ICM DEVICE INTERROGAT REMOTE ICD DEVICE INTERROGAT REMOTE PM/ICD REMOTE TECH SERV ICM DEVICE INTERROGAT REMOTE Advance Directives Directive Yes / No Effective Date File Name No Information Encounters Encounter Description Practice Location Reason(s) For Visit Diagnoses Date Provider Providers Copied on Encounter OFFICE/OUTPA TIENT VISIT, EST [facility], [address] [place] [address], [id number] , tel: [phone] [facility] Follow Up of cardiology exam (chief complaint) CADCHFHyperlipidemia , unspecifiedEssential (primary) hypertensionCardiomy opathy, unspecified Alaina Fraire. [facility] [address], [place], [place], [id number] , . tel: [phone] Referring Provider: Juno Foley, [facility] [address], [place], [address] . tel:[phone] [facility], [address] [place] [address], [id number] , tel: [phone] [facility] [place] Presence of automatic (implantable) cardiac defibrillatorChest pain, unspecifiedAthscl heart disease of [place] coronary artery w/o ang pctrsType 2 diabetes mellitus without complicationsHeart failure, unspecifiedHyperlipi demia, unspecifiedEssential (primary) hypertensionSleep apnea, unspecifiedCardiomyo harvinder, unspecifiedLeft bundle-branch block, unspecified 5 Alainagustavo Fraire. [facility] [place], [place], [address] [place] [address] , . tel: [phone] Referring Provider: Juno Foley, [address] , [place], [address] . tel:[phone] [facility], [address] [place] [address], [address] [place] [address] , tel: [phone] [facility] [place] No Information 5 Alaina Fraire. [address] [place] [address], [address] [place] [address] , . tel: [phone] [facility], [address] [place] [address], [address] [place] [address] , tel: [phone] [facility] [place] Presence of automatic (implantable) cardiac defibrillator Alaina Fraire. [address] [place], [place] [address], [place], [address] [place] [address] , . tel: [phone] Referring Provider: Juno Foley, [facility] [place], [address] . tel: [phone] sulting Provider: Juno Foley, [facility] [place], [address] . tel:[phone] [facility], [address] [place] [address], [address] [place] [address] , tel: [phone] [facility] [place] Presence of automatic (implantable) cardiac defibrillator 5 Alaina Fraire. [facility] [place], [place], [address] [place] [address] , . tel: [phone] Referring Provider: Juno Foley, [facility] [place], [address] . tel: [phone] sulting Provider: Juno Simyyum, [facility] [address] , [place], [address] . tel:[phone] [facility] , [address] [place] [address], [id number] , tel: [phone] [facility] [place] Presence of automatic (implantable) cardiac defibrillator 5 Alainakaylie Fraire. [facility] [place], [place], [id number] , . tel: [phone] Referring Provider: Juno Alaina, [facility] [address] , [place], [address] . tel: [phone] Provider: Juno Foley, [facility] [address] , [place], [address] . tel:[phone] [facility] , [address] [place] [address], [id number] , tel: [phone] [facility] [place] Chest pain, unspecifiedCADDM type IICHFHyperlipidemia, unspecifiedEssential (primary) hypertensionSleep apnea, unspecifiedCardiomyo harvinder, unspecifiedLeft BBBMitral regurgitationVentric ular tachycardia, unspecifiedPVCs 5 Alainagustavo Fraire. [address] [place], [place] [address], [id number] , . tel: [phone] Family History Family Member Type Diagnosis Age At Onset No Information Payers Payer name Insurance type Covered democrat ID Authoriza tijose alberto(s) [place] CI [id number] AETNA [facility] CI [id number] Social History Type Description Quantity Date Captured Comments Alcohol Use Details Unknown Caffeine Use Details Unknown Tobacco Use Status No Information Smoking Status No Information Sex Female Vital Signs Date / Time: Height Weight BMI Pulse Rate Blood Pressure Temperature Respiratory Rate Body Surface Area Head Circumference Head Circ. Percentile Wt./Jerry. Percentile BMI percentile Pulse Ox Inhaled Ox 9:29 AM 65.317 kg (144.00 lbs) 67 /min 129/94 mm[Hg] 18 /min 97 % Chief Complaint And Reason For Visit From encounter dated 07/29/2025 09:30'. Follow Up of cardiology exam (chief complaint) Reason For Referral Reason For Referral No Information Plan Of Treatment Date Type Action Status Appointment Katheryn Pantoja BOOKED History Of Present Illness Encounter Date Complaint History Of Prese nt Illness Follow Up of cardiology exam Functional Status Date Functional Assessmen t No Information Instructions Date Instruction Additional Infor mation No Information Assessments Type Assessment Date assessment CAD assessment CHF assessment Hyperlipidemia, unspecified assessment Essential (primary) hypertension assessment Cardiomyopathy, unspecified Patient Care Teams Name Effective Dates (start - stop) Status Members No Information
--- NOTE | ~2025-09-06 | XR_ITS ---
EXAM/PROCEDURE: XR enema water soluble HISTORY: R10.32 - Left lower quadrant pain COMPARISON: CT of the abdomen and pelvis from August 15, 2025 TECHNIQUE: Water-soluble single-contrast enema performed. Fluoroscopy time: 0.5 minutes DP: 36.980 Gymcm2 Number of images 23 Contrast: 1.5 L of Omnipaque 350 water-soluble contrast mixed with water. FINDINGS: Patient was tipped by technologist in the usual fashion. Contrast flowed retrograde without resistance and; the patient did quickly complained of discomfort and the procedure was terminated clinically. Several simple images of the sigmoid colon, as well as the ascending, descending and transverse colon demonstrates no suspicious abnormality. Reflux into the appendix and distal small bowel noted. No extravasation of contrast or obvious mass. IMPRESSION: Somewhat limited but otherwise negative single contrast barium enema demonstrating scattered diverticuli but otherwise within normal limits. Reviewed, dictated and finalized at location A. TRICAL SIGN WIRER IMPRESSION: Somewhat limited but otherwise negative single contrast barium enema demonstrat ing scattered diverticuli but otherwise within normal limits.
--- OUTSIDE RECORDS SUMMARY | 2025-09-06 09:30 | XMS_ITS | Clinical Summary ---
Author Organization [facility] Address [address] [facility] [address] [place] [address] Phone Care Team Providers Care Concrete Laborer Name Role Phone Duglas Collado MD Primary [...] Care Team (Late st Contact Info) Description 12/01/2025 3:45 PM ASPHALT PLANT OPERATOR Office Visit [facility] Oncology and Hematology - [place] [address] [facility] [address] [place] [address] Brandon Willis MD [address] [facility] [address] [place] [address] Health Maintenance Due Date Last [...] , 09/19/2019 Medical Devices Implanted Type Area Portfolio Director Device Identifier Shelf Expiration Date Model / Serial / Lot Lap Band,Bilat Knee Replacement Implanted:(Quantit y not on file) Explanted:(Quantit y not on file) Insurance MEDICARE PART A AND B AET MEDICARE SUPP AESSI MEDICARE PART A AND B AETNA MEDICARE SUPP AESSI Advance Directives For more information, please contact: [phone] * Full Code (Latest Code Status on File) Date Activated Date Inactivated Comments 07/05/2014 8:17 AM 07/05/2014 11:32 AM * Full Code Date Activated Date Inactivated Comments 07/05/2014 6:54 AM 07/05/2014 8:17 AM Care Teams Concrete Laborer Relationship Specialty Start Date End Date Duglas Collado MD PCP - General Internal Medicine 03/27/22
--- OUTSIDE RECORDS SUMMARY | 2025-09-06 09:30 | XMS_ITS | Clinical Summary ---
Author Organization [facility] [employer] Address [address] [place] [address] Care Team Providers Care Superintendent Name Role Phone Duglas Collado MD Primary Care Provider Source Comments [facility],non-[facility] Affiliates and Associated Physician Practices is amultiple site organization consisting of ambulatory clinics and hospital sitesin [place], [place], [place] and [place]. This disclosure is being madepursuant to the Care Everywhere program and may not contain all information available regarding this patient. Last updated 18.[facility] [employer] Allergies Active Allergy Reactions Criticality Noted Date Comments Codeine Nausea and/or Vomiting,Vomiting Medium 05/27 Meperidine Nausea and/or Vomiting,Vomiting Medium 05/27 Medications * Be aware that medications may not be up to date on this document. Alwaysverify current medications with the patient. loratadine (CLARITIN) 10 MG tablet Take 10 mg by mouth once daily 9 Active vitamin D, ergocalciferol, (DRISDOL) 1.25 MG (59092 UT) capsule Take 50,000 Units by mouth [...] on file Legal Sex Female 7:00 PM PARK GUARD Gender Identity Not on file Sexual Orientation Not on file Last Filed Vital Signs Vital Sign Reading Time Taken Comments Blood Pressure 110/68 10/28/2019 2:58 PM PARK GUARD Pulse 77 10/28/2019 2:58 PM PARK GUARD Temperature 36.7 C (98.1 F) 10/28/2019 2:58 PM PARK GUARD Respiratory Rate 18 10/28/2019 2:58 PM PARK GUARD Oxygen Saturation 96% 10/28/2019 2:58 PM PARK GUARD Inhaled Oxygen Concentration - - Weight 87.2 kg (192 lb 4.8 oz) 10/28/2019 2:58 P M PARK GUARD Height 165.1 cm (5' 5) 10/28/2019 2:58 PM PARK GUARD Body Mass Index 32 10/28/2019 2:58 PM PARK GUARD Plan of Treatment Health Maintenance Due Date [...] Health Maintenance Insurance AETNA MEDICARE [facility] MEDICARE AETNA SELF PAY NO INSURANCE Member Subscriber Plan / Payer (Ef fective for All Dates) Name:Katheryn Phillips Member ID:Not on file Relation to Subscriber:Not on file Name:KATHERYN PHILLIPS Subscriber ID:Not on file (Home) Address: [facility] [place] [address] Payer ID:Not on file Group ID:Not on file Type:Self Pay Address: [place], [place] * Guarantor: KATHERYN PHILLIPS Account Type Relation to Patient Date of Phone Billing Address Personal/Family [address] [place] [address] MEDICARE AETNA * Guarantor: KATHERYN PHILLIPS Account Type Relation to Patient Date of Phone Billing Address Personal/Family [address] [place] [address] MEDICARE AETNA * Guarantor: KATHERYN PHILLIPS Account Type Relation to Patient Date of Phone Billing Address Personal/Family [address] [place] [address] MEDICARE AETNA Care Teams Superintendent Relationship Specialty Start Date End Date Duglas Collado MD [address] [address] PCP - General Internal Medicine 07/16/19
--- OUTSIDE RECORDS SUMMARY | 2025-09-06 09:30 | XMS_ITS | Clinical Summary ---
Author Organization [facility] al Address [address] [place] [address] Care Team Providers Care Tool Polisher Name Role Phone Dante Collado MD Primary Care Provide r Mk Alejandra MD Unavailable [phone] Allergies Active Allergy Reactions Criticality Noted Date [...] (01/17/2021): Added automatically from request for surgery [id number] Troponin level elevated 03/29/2020 Defibrillator discharge 03/28/2020 [...] mellitus Hypothyroidism Arthritis CHF (congestive heart failure) ([facility]) Family History Medical History Relation Name Comments [...] on file Legal Sex Female 7:03 PM DYE HOUSE WHEEL OPERATOR Gender Identity Not on file Sexual Orientation Not on file Last Filed Vital Signs Vital Sign Reading Time Taken Comments Blood Pressure 120/81 09/05/2022 8:37 AM DYE HOUSE WHEEL OPERATOR Pulse 66 09/05/2022 8:37 AM DYE HOUSE WHEEL OPERATOR Temperature 36.4 C (97.5 F) 11/18/2021 2:14 PM DYE HOUSE WHEEL OPERATOR Respiratory Rate 25 11/18/2021 6:20 PM DYE HOUSE WHEEL OPERATOR Oxygen Saturation 100% 11/18/2021 6:20 PM DYE HOUSE WHEEL OPERATOR Inhaled Oxygen Concentration - - Weight 66 kg (145 lb 6.4 oz) 09/05/2022 8:37 AM DYE HOUSE WHEEL OPERATOR Height 154.9 cm (5' 1) 09/05/2022 8:37 AM DYE HOUSE WHEEL OPERATOR Body Mass Index 27.47 09/05/2022 8:37 AM DYE HOUSE WHEEL OPERATOR Plan of Treatment Not on file Medical Devices Implanted Type Area Photographic Supervisor Device Identifier Shelf Expiration Date Model / Serial / Lot [employer] [id number] Solia S 45cm Bipolar Active Fixation Lead Pacing Steroid Eluting - [id number] - [id number] Implanted:Qty: 1 on 09/22/2019 by Mk Alejandra MD at [facility] Lead [employer] [id number] 06/26/2021 [id number] / [id number] / Lead Icd Sentus Promri Left Ventricular Otw Quadripolar L-85/49 - [id number] - [id number] Implanted:Qty: 1 on 04/09/2018 by Mk Alejandra MD at [facility] [employer] 12/25/2019 [id number] / [id number] / [employer] [id number] Angio-Seal Vip Bondek-Plus 8fr .038in 70cm Hemostatic Latex Free - [id number] Implanted:Qty: 1 on 10/13/2018 by Mk Alejandra MD at [facility] [employer] 05/26/2019 [id number] / / [id number] Procedures Procedure Name Priority Date/Time Associated Diagnosis Comments EGFR STAT 11/18/2021 3:26 PM DYE HOUSE WHEEL OPERATOR LIPID PANEL Timed 03/28/2020 1:05 PM CDT COLONOSCOPY REPORT 07/01/2013 from Last 3 Months or Most Recently Relevant to Health Maintenance Results * eGFR (11/18/2021 3:26 PM DYE HOUSE WHEEL OPERATOR) eGFR 73 mL/min/1. 73 m2 MAT [...] last reviewed 2021. Blood 11/18/2021 3:26 PM DYE HOUSE WHEEL OPERATOR 11/18/2021 3:33 PM DYE HOUSE WHEEL OPERATOR us Felisha Porter MD LAB BLOOD ORDERABLES Final Resu lt MAT [facility] [id number] Department [place] [address] * Lipid panel (03/28/2020 1:05 PM CDT) [...] MD LAB BLOOD ORDERABLES F inal Result [facility] [id number] Department [place] [address] * COLONOSCOPY REPORT (07/01/2013) Anatomical Region Laterality Modality Other Narrative 07/01/2013 Ordered by an unspecified provider. Historical Provider GI PROCEDURE ORDERABLES F inal Result from Last 3 Months or Most Recently Relevant to Health Maintenance Insurance MEDICARE AET SENIOR SUPPLEMENT MEDICARE AETNA SENIOR SUPPLEMENT MEDICARE AETNA Advance Directives For more information, please contact: [phone] * Full Code (Latest Code Status on [...] 11:02 PM 10/01/2017 2:07 PM Care Teams Tool Polisher Relationship Specialty Start Date End Date Dante Collado MD [address] [place] [address] PCP - General 09/10/17 [place] [id number] [address] Consulting Physician Cardiology 10/01/17
== END 2025-09-06 09:11 | disposition home or self-care (01) ==
PROVIDERS: PCP Internal Medicine; Visit Provider Surgery
DX: R10.32 Left lower quadrant pain (principal)
CPT/HCPCS: 74270